=== PATIENT | female | born 1955 | race Caucasian/White ===

== ENCOUNTER 2023-04-17 10:36 | Outpatient (OUT) | payer MEDICARE, MEDICAID, SELFPAY ==
[2023-04-17 12:03] LABS: Estimated Average Glucose 332 mg/dL; Glycohemoglobin A1C 13.2 % (4.5-6.2)
[2023-04-17 12:05] LABS: Anion Gap 13.2; Carbon Dioxide 27.6 mmol/L (21.0-32.0); Chloride 102 mmol/L (98-107); Potassium 4.8 mmol/L (3.5-5.1); Sodium 138 mmol/L (136-145); Thyroid Stimulating Hormone 2.214 uIU/mL (0.358-3.740)
[2023-04-17 12:19] LABS: Erythrocyte Sedimentation Rate 32 mm/hr (<=30)
[2023-04-17 13:17] LABS: Free T4 0.71 ng/dL (0.76-1.46)
[2023-04-18 04:07] LABS: RPR Non Reactive (Non Reactive)
[2023-04-18 06:09] LABS: Ceruloplasmin 23.2 mg/dL (19.0-39.0); Homocyst(e)ine 12.4 umol/L (0.0-17.2); Rheumatoid Factor (RF) <10.0 IU/mL (<14.0)
[2023-04-18 12:08] LABS: Immunoglobulin A, Qn, Serum 497 mg/dL (87-352); Immunoglobulin G, Qn, Serum 1131 mg/dL (586-1602); Immunoglobulin M, Qn, Serum 44 mg/dL (26-217); Lyme Total Antibody CIA Negative (Negative)
[2023-04-18 15:08] LABS: ANA Direct Negative (Negative)
[2023-04-19 12:11] LABS: Copper Level 107 ug/dL (80-158); Zinc Level 67 ug/dL (44-115)
[2023-04-19 17:10] LABS: West Nile Virus, IgG Negative (Negative); West Nile Virus, IgM Negative (Negative)
[2023-04-20 00:06] LABS: Oxcarbazepine (Trileptal),S 18 ug/mL (10-35)
[2023-04-21 11:08] LABS: Methylmalonic Acid, Serum 332 nmol/L (0-378)
[2023-04-22 17:09] LABS: Vitamin B6, Plasma 4.1 ug/L (3.4-65.2)
== END 2023-04-17 10:37 | disposition home or self-care (01) ==
LOC: LAB 10:49
PROVIDERS: PCP Internal Medicine; Visit Provider Psychiatry & Neurology Neurology
DX: G62.9 Polyneuropathy, unspecified (principal); G60.9 Hereditary and idiopathic neuropathy, unspecified; R79.89 Other specified abnormal findings of blood chemistry; Z11.3 Encounter for screening for infections with a predominantly sexual mode of transmission; E53.1 Pyridoxine deficiency; I70.91 Generalized atherosclerosis; D51.3 Other dietary vitamin B12 deficiency anemia; M79.10 Myalgia, unspecified site; E78.5 Hyperlipidemia, unspecified; G40.909 Epilepsy, unspecified, not intractable, without status epilepticus
CPT/HCPCS: 36415; 80051; 80183; 82390; 82525; 82607; 82746; 82784; 83036; 83090; 83921; 84156; 84166; 84207; 84439; 84443; 84630; 85652; 86038; 86140; 86334; 86335; 86430; 86618; 86788; 86789

== ENCOUNTER 2023-06-16 16:30 | Emergency (ER) | payer MEDICARE, MEDICAID, SELFPAY ==
[2023-06-16] VITALS (19 sets, daily range): BP systolic 169–253; BP diastolic 81–109; PULSE 72–79; RESP 14–22; TEMP 36.6; O2SAT 84–96; BMI 41.6
--- NOTE | 2023-06-16 16:58 | ECG_ITS ---
The [facility] Test Date: 2023-06-16 Pat Name: ORTEGA POWELL Department: Room: - Gender: Female Director Telehealth: : 1955 Requested By: KAREN EMANUEL Order Number: [id number] Reading MD: DOMINICK MCGEE Measurements Intervals [place] Rate: 76 P: 60 WI: 192 QRS: 43 QRSD: 96 T: -66 QT: 372 QTc: 403 Interpretive Statements 1100 Sinus rhythm [address] depression 4564 Twave abnormality, possible lateral ischemia 4664 Twave abnormality, possible inferior ischemia 9150 abnormal ECG No previous ECG available for comparison Electronically Signed On 06-18-2023 13:08:27 EDT by DOMINICK MCGEE
--- NOTE | 2023-06-16 16:58 | XR_ITS ---
The [address] [address] Patient Name: ORTEGA POWELL MRN: [id number] date: 1955 Sex: F Assigned Patient Location: ER Current Patient Location: ER Accession/Order Number: [id number] Exam Date: 06/16/2023 18:10 Report Date: 06/16/2023 18:58 At the request of: FRANKLIN SHEA Procedure: XR chest 1V EXAM: XR chest 1V HISTORY: chest pain COMPARISON: None. TECHNIQUE: Chest X-ray AP, 1 view FINDINGS: Support devices: None. Lungs/pleura: No consolidation, effusion, or pneumothorax. Heart and mediastinum: Normal contours. Bones: No acute abnormality identified. XR/XR chest 1V Impression: No radiographic evidence of acute cardiopulmonary process. Electronically authenticated by: JEFF SANDERS Date: 06/16/2023 18:58
--- NOTE | 2023-06-16 17:17 | ED_ITS ---
HPI - Chest Pain General Chief Complaint: Chest Pain Stated Complaint: chest pain Time Seen by Provider: 06/16/23 16:48 Source: patient and family Mode of arrival: walk-in History of Present Illness HPI narrative: patient here with discomfort. She's had some discomfort in the right breast area off and on for the last four days. She did take one nitroglycerin today and had partial relief. The pain is not there at this time. She states that she's had eight heart attacks, two episodes of congestive heart failure and multiple strokes. She uses [facility] cardi[facility]. She did not have any nausea or vomiting. She says she felt like she was going to get sweaty but didn't have diaphoresis at the time. She has not had a heart catheter since her last stents were placed approximately three years ago. She did have a chemical stress test couple years ago that was normal. She did not have any shortness of breath today.she states she takes all her medications and never forgets. Her confirmed. She does take aspirin, statin, Plavix amongst other meds as noted on her medication sheet. Related Data Home Medications Medication Instructions Recorded Confirmed amlodipine 10 mg tablet 10 mg PO QDAY 06/16/23 06/16/23 anastrozole 1 mg tablet 1 mg PO QDAY 06/16/23 06/16/23 aspirin 81 mg capsule 81 mg PO DAILY 06/16/23 06/16/23 atorvastatin 80 mg tablet 80 mg PO QDAY 06/16/23 06/16/23 bupropion HCl 150 mg 24 hr tablet, 150 mg PO QDAY 06/16/23 06/16/23 extended release carvedilol 12.5 mg tablet 12.5 mg PO BID 06/16/23 06/16/23 clopidogrel 75 mg tablet 75 mg PO QDAY 06/16/23 06/16/23 docusate sodium 100 mg capsule 100 mg PO BID 06/16/23 06/16/23 (Col-Rite) isosorbide mononitrate 30 mg 30 mg PO QDAY 06/16/23 06/16/23 tablet,extended release 24 hr lisinopril 40 mg tablet 10 mg PO BID 06/16/23 06/16/23 metformin 500 mg tablet,extended 500 mg PO BID 06/16/23 06/16/23 release 24 hr oxcarbazepine 300 mg tablet 300 mg PO BID 06/16/23 06/16/23 pantoprazole 40 mg tablet,delayed mg PO Q12H 06/16/23 release spironolactone 25 mg tablet 25 mg PO QDAY 06/16/23 06/16/23 Allergies Allergy/AdvReac Type Severity Reaction Status Date / Time No Known Drug Allergies Allergy Verified 06/16/23 16:39 Exam Narrative Exam Narrative: awake alert pleasant good historian here with her . She is not having discomfort this time. Her blood pressure is modestly elevated with a automatic cuff will be reevaluated. Examination HEENT shows no incident of craniofacial trauma injury or abnormalities. Eye examination is no scleral icterus or evidence of anemia. Chest her lungs are completely her with no wheeze rales or rhonchi on auscultation lungs. Heart sounds are normal with no S3-S4 or murmur. Heart rate and rhythm were normal. Extremities show no peripheral edema or calf tenderness or thigh tenderness. Skin integument are normal no petechia or purpura. Neurological examination shows no confusion or altered mental status or focal neurological deficits. Constitutional Vital Signs, click to edit/add: Last Vital Signs Temp 97.8 F 06/16/23 16:35 Pulse 75 06/16/23 18:20 Resp 14 06/16/23 18:20 BP 169/109 H 06/16/23 18:01 Pulse Ox 96 06/16/23 18:20 O2 Del Method Room Air 06/16/23 16:45 Course Vital Signs Vital signs: Vital Signs Temperature 97.8 F 06/16/23 16:35 Pulse Rate 79 06/16/23 16:35 Respiratory Rate 18 06/16/23 16:35 Pulse Oximetry 95 06/16/23 16:35 Oxygen Delivery Method Room Air 06/16/23 16:35 Temperature 97.8 F 06/16/23 16:35 Pulse Rate 75 06/16/23 18:20 Respiratory Rate 14 06/16/23 18:20 Blood Pressure 169/109 H 06/16/23 18:01 Pulse Oximetry 96 06/16/23 18:20 Oxygen Delivery Method Room Air 06/16/23 16:45 MDM - Chest Pain MDM Narrative Medical decision making narrative: patient's 12-lead EKG here shows sinus rhythm with moderate ST segment depr ession in the inferior leads. This was compared to previous EKGs also showed nonspecific findings signs and T-wave depression over the inferior lateral leads so there is no acute change. Her 1st cardiac troponin is normal and it was repeated approximately an hour and half later and the 2nd is normal as well. When I examined her 2nd time she is asymptomatic. Her blood pressure come down still somewhat elevated and so we have given her a dose of her blood pressure meds. With both troponins being negative and her being off here I believe she can be managed as an outpatient as long as she follows up with Dr. Nikolay Tarango. Lab Data Labs: Lab Results 06/16/23 06/16/23 Range/Units 16:53 18:29 WBC 8.3 (4.0-11.0) 10^3/uL RBC 4.51 (4.20-5.40) 10^6/uL Hgb 13.8 (12.0-16.0) g/dL Hct 40.7 (36.0-48.0) % MCV 90.2 (81.0-99.0) fL MCH 30.6 (26.7-34.0) pg MCHC 33.9 (29.9-35.2) g/dL RDW 13.0 (11.0-15.0) % Plt Count 271 (150-450) 10^3/uL MPV 10.0 (9.5-13.5) fL Neut % (Auto) 59.5 (43.0-75.0) % Lymph % (Auto) 29.9 (20.5-60.0) % Coles % (Auto) 7.6 (1.7-12.0) % Eos % (Auto) 2.0 (0.9-7.0) % Baso % (Auto) 0.5 (0.2-2.0) % Neut # (Auto) 5.0 (1.4-6.5) 10^3/uL Lymph # (Auto) 2.5 (1.2-3.8) 10^3/uL Coles # (Auto) 0.6 (0.3-0.8) 10^3/uL Eos # (Auto) 0.2 (0.0-0.7) 10^3/uL Baso # (Auto) 0.0 (0.0-0.1) 10^3/uL Abs Immat Gran (auto) 0.04 H (0.00-0.03) 10^3/uL Imm/Tot Granulo (auto) 0.5 (0.0-0.5) % Sodium 139 (136-145) mmol/L Potassium 4.3 (3.5-5.1) mmol/L Chloride 102 (98-107) mmol/L Carbon Dioxide 28.7 (21.0-32.0) mmol/L Anion Gap 12.6 BUN 17.0 (7.0-18.0) mg/dL Creatinine 0.85 (0.55-1.02) mg/dL Est GFR ( Amer) >60 (>=60) Est GFR (Non-Af Amer) >60 (>=60) BUN/Creatinine Ratio 20.0 Glucose 112 H (74-106) mg/dL Calcium 9.0 (8.5-10.1) mg/dL Troponin I High Sens 14.9 16.2 (4.0-51.3) pg/mL NT-Pro-B Natriuret Pep 258.0 (<=900.0) pg/mL Discharge Plan Discharge Chief Complaint: Chest Pain Clinical Impression: Chest pain Patient Disposition: Home, Self-Care Time of Disposition Decision: 19:06 Prescriptions / Home Meds: No Action amlodipine 10 mg tablet 10 mg PO QDAY anastrozole 1 mg tablet 1 mg PO QDAY atorvastatin 80 mg tablet 80 mg PO QDAY bupropion HCl 150 mg tablet extended release 24 hr 150 mg PO QDAY carvedilol 12.5 mg tablet 12.5 mg PO BID clopidogrel 75 mg tablet 75 mg PO QDAY isosorbide mononitrate 30 mg tablet extended release 24 hr 30 mg PO QDAY lisinopril 40 mg tablet 10 mg PO BID metformin 500 mg tablet extended release 24 hr 500 mg PO BID pantoprazole 40 mg tablet,delayed release (DR/EC) PO Q12H spironolactone 25 mg tablet 25 mg PO QDAY aspirin 81 mg capsule 81 mg PO DAILY oxcarbazepine 300 mg tablet 300 mg PO BID docusate sodium [Col-Rite] 100 mg capsule 100 mg PO BID Additional Instructions: 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 Return for any sustained symptoms. Continue present medications but new prescription for nitroglycerin Stand Alone Forms: Portal Instructions Referrals: KAREN EMANUEL [Primary Care Provider] - 1 week
[2023-06-16 17:18] LABS: Basophils Percent Auto 0.5 % (0.2-2.0); Eosinophils Absolute Auto 0.2 10^3/uL (0.0-0.7); Hematocrit 40.7 % (36.0-48.0); Hemoglobin 13.8 g/dL (12.0-16.0); Immature Granulocytes Abs Auto 0.04 10^3/uL (0.00-0.03); Immature Granulocytes Pct Auto 0.5 % (0.0-0.5); Lymphocytes Absolute Auto 2.5 10^3/uL (1.2-3.8); Lymphocytes Percent Auto 29.9 % (20.5-60.0); Mean Corpuscular HGB Conc 33.9 g/dL (29.9-35.2); Mean Corpuscular Hemoglobin 30.6 pg (26.7-34.0); Mean Corpuscular Volume 90.2 fL (81.0-99.0); Monocytes Absolute Auto 0.6 10^3/uL (0.3-0.8); Monocytes Percent Auto 7.6 % (1.7-12.0); Neutrophils Percent Auto 59.5 % (43.0-75.0); Platelet Count 271 10^3/uL (150-450); Red Blood Count 4.51 10^6/uL (4.20-5.40); White Blood Count 8.3 10^3/uL (4.0-11.0)
[2023-06-16 17:38] LABS: Anion Gap 12.6; Carbon Dioxide 28.7 mmol/L (21.0-32.0); Chloride 102 mmol/L (98-107); Estimated GFR (African America >60 (>=60); Estimated GFR (Non-African Ame >60 (>=60); Glucose 112 mg/dL (74-106); Potassium 4.3 mmol/L (3.5-5.1); Sodium 139 mmol/L (136-145); Troponin I High Sensitivity 14.9 pg/mL (4.0-51.3)
[2023-06-16 18:53] LABS: Troponin I High Sensitivity 16.2 pg/mL (4.0-51.3)
[2023-06-16] MEDS: LISINOPRIL 10 MG TABLET PO (19:32)
== END 2023-06-16 19:32 | disposition home or self-care (01) ==
PROVIDERS: Emergency Provider Emergency Medicine Emergency Medical Services; PCP Internal Medicine
DX: R07.9 Chest pain, unspecified (principal); I25.2 Old myocardial infarction; I50.9 Heart failure, unspecified; Z86.73 Personal history of transient ischemic attack (TIA), and cerebral infarction without residual deficits; Z95.5 Presence of coronary angioplasty implant and graft; Z79.82 Long term (current) use of aspirin; Z79.02 Long term (current) use of 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latelets; Z79.84 Long term (current) use of oral hypoglycemic drugs
CPT/HCPCS: 36415; 71045; 80048; 83880; 84484; 85025; 93005; 99285

== ENCOUNTER 2023-07-10 12:37 | Outpatient (OUT) | payer MEDICARE, MEDICAID, SELFPAY ==
--- NOTE | 2023-07-10 12:44 | MM_ITS ---
Patient: ORTEGA POWELL Exam Date: 07/10/2023 : 1955 Gender:F Ordering : DR KAREN EMANUEL M.D. Admission #: [id number] Family : Order #: [id number] CLICK HERE TO VIEW EXAM RADIOLOGY REPORT PROCEDURE: MM TOMOSYNTHESIS DIAGNOSTIC LT COMPARISON: MG MAMM DIAGNOSTIC 3D TIFFANY CAD, 01/04/2023. INDICATIONS: Follow up to abnormal mammogram Calculator Name NCI Breast Cancer Risk Assessment Tool 5 Year Breast Cancer Risk 2.20% Lifetime Breast Cancer Risk 7.60% Personal Breast Cancer No Personal Ovarian Cancer No Treatments None Family Cancers Mother with colon cancer at age 60. LOCATION: The [facility] BREAST COMPOSITION: Scattered areas fibroglandular density. FINDINGS: DIAGNOSTIC CATEGORY 2--BENIGN FINDING. NO CHANGE FROM COMPARISON. The left breast is stable in size and overall fibroglandular configuration. Again demonstrated is a stable area of architectural distortion with focal asymmetry in the upper outer quadrant, deep to a linear scar marker with associated surgical clips. Postprocedural changes are favored. RECOMMENDATIONS: ROUTINE MAMMOGRAM AND CLINICAL EVALUATION. The patient is due bilateral screening mammogram December 2023 PLEASE NOTE: A NORMAL MAMMOGRAM DOES NOT EXCLUDE THE POSSIBILITY OF BREAST CANCER. A CLINICALLY SUSPICIOUS PALPABLE LUMP SHOULD BE BIOPSIED. Dictated by: Cody Jasso MD on 07/10/2023 at 13:17 Approved by: Cody Jasso MD on 07/10/2023 at 13:19
== END 2023-07-10 12:38 | disposition home or self-care (01) ==
LOC: MAMMO 12:39
PROVIDERS: PCP Internal Medicine; Visit Provider Internal Medicine
DX: R92.8 Other abnormal and inconclusive findings on diagnostic imaging of breast (principal)
CPT/HCPCS: 77065; G0279

== ENCOUNTER 2023-12-04 09:37 | Outpatient (OUT) | payer MEDICARE, MEDICAID, SELFPAY ==
--- NOTE | 2023-12-04 10:00 | CA_ITS ---
Patient Name: ORTEGA POWELL MR#: [id number] : 1955 Exam Date: 12/04/2023 Ordering Doctor: DR Garrett Mcdonald M.D. ECHOCARDIOGRAM REPORT PROCEDURE: CA ECHO DOPPLER COMPLETE INDICATIONS: Dyspnea on exertion COMPARISON: None. DESCRIPTION: COMPLETE ECHOCARDIOGRAM Real-time transthoracic echocardiography with 2D, M-mode, spectral and color flow Doppler performed. QUALITY: Technical quality was good. LEFT VENTRICLE: Normal chamber size. Moderate concentric left ventricular hypertrophy. Global left ventricular systolic function is normal. LV EF: Estimated left ventricular ejection fraction is 65-70 %. DIASTOLIC: Grade I diastolic dysfunction. Doppler data [E/E'] indicate elevated left-sided filling pressures. ATRIAL SEPTUM: LEFT ATRIUM: Mild dilatation. RIGHT ATRIUM: Normal chamber size. RIGHT VENTRICLE: Normal chamber size. Normal right ventricular systolic function. TRICUSPID VALVE: Normal mobility and thickness. No stenosis with trivial regurgitation. Unable to assess right-sided pressures due to lack of measurable tricuspid regurgitation. MITRAL VALVE: Normal mobility and thickness. No evidence of mitral valve stenosis. Mild mitral annular calcification. Mild mitral regurgitation. AORTIC VALVE: Normal trileaflet appearance. Mildly calcified aortic valve. Normal leaflet mobility. Doppler velocity suggest no aortic valve stenosis. Trivial aortic regurgitation. AORTIC ROOT: Normal diameter and appearance. PULMONIC VALVE: Normal thickness and mobility. No stenosis. No regurgitation. PERICARDIUM: No evidence of pericardial effusion. IVC: Collapses with inspirations. Mild dilatation measuring 2.5 cm PLEURA: CONCLUSION: 1. Moderate concentric left ventricular hypertrophy with normal systolic function. LVEF is 65 to 70%. 2. Normal right ventricular size and systolic function. 3. Grade 1 diastolic dysfunction. 4. Mild mitral regurgitation. 5. Unable to assess right-sided pressures due to lack of measurable tricuspid regurgitation. 6. Doppler data indicate elevated left-sided filling pressures. Adult Echocardiography Procedure Report Left Ventricle LVEDD (3.7 - 5.6 cm): 4.74 cm LVESD (2.2 - 4.0 cm): 3.42 cm LVIVS thickness (0.6 - 1.2 cm): 1.67 cm LVPW thickness (0.5 - 1.0 cm): 1.43 cm e': 0.06 m/s E - e': 15.67 LVOT Max Gradient: 3.90 mm[Hg] LVOT Area (cm2): 0.99 m/s Peak Velocity (LVOT): 0.99 m/s Mean Velocity (LVOT): 0.73 m/s LVOT Diameter 1.96 cm Left Ventricular Ejection Fraction: 65-70 % Left Atrium LA Volume Index (2D A2C): 39.04 ml/m2 Left Atrium Systolic Dimension: 3.71 cm Mitral Valve MV E to A Ratio: 0.69 Mitral Valve A-Wave Peak Velocity: 1.30 m/s Mitral Valve E-Wave Peak Velocity: 0.90 m/s Right Ventricle RV Internal Diastolic Dimension: 3.41 cm Aorta AO Root Diam: 2.69 cm Ascending Ao Diam: 2.55 cm Aortic Valve AoV Area (Peak Daniel): 1.56 cm2, 1.56 cm2 AoV Area (VTI): 1.77 cm2, 1.77 cm2 Peak Velocity(Antegrade Flow): 1.91 m/s Peak Gradient(Antegrade Flow): 14.53 mm[Hg] Mean Velocity(Antegrade Flow): 1.29 m/s Mean Gradient(Antegrade Flow): 7.61 mm[Hg] Velocity Time Integral: 45.71 cm Tricuspid Valve Peak Velocity (Regurgitant Flow): 1.92 m/s, 1.92 m/s, 1.88 m/s Pulmonic Valve Mean Gradient: 2.72 mm[Hg], 3.04 mm[Hg], 3.18 mm[Hg] Mean Velocity: 0.77 m/s, 0.83 m/s, 0.83 m/s Peak Velocity: 1.12 m/s Peak Gradient: 4.76 mm[Hg], 4.76 mm[Hg], 5.49 mm[Hg] Right Atrium Right Atrium Systolic Pressure: 39.71 ml, 39.71 ml Dictated by: Greg West M.D. on 12/04/2023 at 16:31 Approved by: Greg West M.D. on 12/04/2023 at 16:36
== END 2023-12-04 09:38 | disposition home or self-care (01) ==
PROVIDERS: PCP Internal Medicine; Visit Provider Internal Medicine Interventional Cardiology
DX: R06.09 Other forms of dyspnea (principal)
CPT/HCPCS: 93306

== ENCOUNTER 2023-12-28 14:17 | Emergency (ER) | payer MEDICARE, MEDICAID, SELFPAY ==
[2023-12-28] VITALS (20 sets, daily range): BP systolic 89–182; BP diastolic 44–85; PULSE 56–76; TEMP 36.6; O2SAT 88–98; BMI 40.0
--- OUTSIDE RECORDS SUMMARY | 2023-12-28 14:26 | XMS_ITS | CCD ---
Author Organization [facility] Care Team Providers Care Time Study Statistician Name Role Phone CARLOS EDUARDO VAN Unavailable Unavailable JONAH SANABRIA Admitting Unavailable JONAH SANABRIA Attending Unavailable GARRETT MCDONALD Referring Unavailable FARAZ OSMAN Primary Care Unavailable AK Procedure Practitioner Unavailab JENNIFER Ross Surgeon Unavailable FARAZ OSMAN Primary Care Unavailable FARAZ OSMAN Referring Unavailable CHERELLE, RIVERA R Attending Unavailable CHERELLE, RIVERA R Admitting Unavailable AK Procedure Practitioner Unavailab Dov Blank Surgeon Unavailable WILMAR MORRIS Primary Care Unavailable DOMINICK MCGEE Referring Unavailable THERESA TOMAS Admitting Unavailable CHERELLE, RIVERA R Attending Unavailable AK Procedure Practitioner Unavailab le CHERELLE, RIVERA R Surgeon Unavailable SHAHANA Osman Primary Care Provider [phone] SHAHANA Osman Referring Provider MD Karoline Farmer Attending Provider [phone] DO Jac Hemphill Attending Provider [phone] SHAHANA Osman Primary Care Provider SHAHANA Osman Referring Provider [phone] MD Karoline Farmer Attending Provider SHAHANA Osman Referring Provider MD Karoline Farmer Attending Provider SHAHANA Osman Referring Provider [phone] MD Karoline Farmer Attending Provider [phone] Dawson, SHAHANA Ruth Referring Provider [phone] MD Karoline Famrer Attending Provider Dawson, SHAHANA Ruth Primary Care Provider Dawson, SHAHANA Ruth Referring Provider [phone] MD Karoline Farmer Attending Provider FARAZ OSMAN Primary Care Physician Yoana Drew Unavailable DAWSON, DR RUTH Primary Care Unavailable MARKER ., DR HERNANDEZ Admitting Unavailable MARKER ., DR HERNANDEZ Attending Unavailable MARKER ., DR HERNANDEZ Consulting Unavailable RAMYA, DIANA Consulting Unavailable OSMAN, DR RUTH Admitting Unavailable OSMAN, DR RUTH Attending Unavailable OSMAN, DR RUTH Consulting Unavailable OSMAN, DR RUTH Primary Care Unavailable OSMAN, DR RUTH Admitting Unavailable OSMAN, DR RUTH Attending Unavailable OSMAN, DR RUTH Consulting Unavailable OSMAN, DR RUTH Primary Care Unavailable OSMAN, DR RUTH Primary Care Unavailable NETODAVID Admitting Unavailable NETODAVID Attending Unavailable NETODAVID Consulting Unavailable ELTAHAWY, DR MATA Admitting Unavailable WEST, DR CARLOS EDUARDO Munroe Consulting Unavailable OSMAN, DR RUTH Primary Care Unavailable ELTAHAWY, DR MATA Attending Unavailable ELTAHAWY, DR MATA Consulting Unavailable OSMAN, DR RUTH Admitting Unavailable OSMAN, DR RUTH Primary Care Unavailable OSMAN, DR RUTH Attending Unavailable OSMAN, DR RUTH Consulting Unavailable ZIEBER, DR BARRON Cho Consulting Unavailable COLIN .KAROLINE Consulting Unavailable DAWSON, DR RUTH Primary Care Unavailable TIFFANIE LINDA Admitting Unavailable TIFFANIE LINDA Attending Unavailable DIAMOND CHAN Consulting Unavailable Faraz Osman Primary Care Unavailable Faraz Osman Referring Unavailable Darian, Karoline Admitting Unavailable Darian, Karoline Attending Unavailable Faraz Osman MD Primary Care Provider GARRETT MCDONALD Attending Unavailable ELTAHAWGARRETT Palma Attending Unavailable FARAZ OSMAN Attending Unavailable JERSON ANTON Attending Unavailable ROSEANN VICENTE Attending Unavailable JERSON ANTON A Referring Unavailable ROSEANN VICENTE Attending Unavailable JERSON ANTON Referring Unavailable ROSEANN VICENTE Attending Unavailable JERSON ANTON A Referring Unavailable ROSEANN VICENTE Attending Unavailable JERSON ANTON Referring Unavailable FARAZ OSMAN Attending Unavailable FARAZ OSMAN Attending Unavailable JERSON ANTON Attending Unavailable ROSEANN VICENTE Attending Unavailable JERSON ANTON Referring Unavailable ROSEANN VICENTE Attending Unavailable JERSON ANTON Referring Unavailable JERSON ANTON Attending Unavailable FARAZ OSMAN Referring Unavailable FARAZ OSMAN Attending Unavailable Allergies Allergy Classification Reported Allergen(s) Allergy Type Date of Onset Reaction(s) Facility (1 source) [id number] Drug allergy (disorder) 02-02-2017 [facility] Repository (16 sources) diphenhydrAMINE; Translations: [diphenhydramine ] Drug Allergy 12-20-2021 [facility] Medications Current Medications Medication Drug Class(es) Dates Sig (Normalized) Sig (Original) acetaminophen 300 mg / codeine phosphate 30 mg oral tablet (9 sources) Opioid Agonist Start: 12-20-2021 take 1 tablet by mouth every four to six hours Acetaminophen-Co deine Active 1 TAB PO EVERY 4-6 HOURS 17 02December 20, 2021 11:37am Acetaminophen / HYDROcodone (2 sources) Opioid Agonist HYDROcodone-Acet aminophen Active [id number] 200 actuat albuterol 0.09 mg/actuat metered dose inhaler (9 sources) beta2-Adrenergic Agonist Start: 11-23-2021 take 1 puff(s) by inhalation every four to six hours Albuterol Sulfate Active 2 PUFF INHALATION EVERY 4-6 HOURS November 23, 2021 4:43pm amLODIPine 10 mg oral tablet (19 sources) Dihydropyridine Calcium Channel Drew Start: 11-23-2021 take 10 mg by mouth once daily in the morning Amlodipine Active 10 MG PO Every morning November 23, 2021 4:43pm Norvasc Active amoxicillin 875 mg / clavulanate 125 mg oral tablet (2 sources) Penicillin-class Antibacterial Start: 12-02-2022 take 1 tablet by mouth every twelve hours Amoxicillin-Pot Clavulanate 875-125 MG 1 tablet Orally every 12 hrs for 10 day(s) Nov, Active anastrozole 1 mg oral tablet (20 sources) Aromatase Inhibitor Start: 01-12-2022 End: 03-22-2022 take 1 tablet by mouth once daily anastrozole (Arimidex) 1 MG chemo tablet Take 1 mg by mouth Daily. 0 03/08/2022 Active Anastrozole Acti ve aspirin 81 mg delayed release oral tablet (20 sources) Platelet Aggregation Inhibitor, Nonsteroidal Anti-inflammatory Drug Start: 11-23-2021 take 81 mg by mouth once daily Aspirin Active 81 MG PO Daily November 23, 2021 4:48pm Aspirin 81 Activ e Meagan Aspirin Ac tive atorvastatin 80 mg oral tablet (19 sources) HMG-CoA Reductase Inhibitor Start: 11-23-2021 take 80 mg by mouth once daily Atorvastatin Active 80 MG PO Daily November 23, 2021 4:43pm Lipitor Active 24 hr buPROPion hydrochloride 150 mg extended release oral tablet (19 sources) Aminoketone Start: 11-23-2021 take 1 tablet by mouth once daily in the morning Bupropion Hcl (Wellbutrin Xl) 150 mg Tablet Extended Release 24 Hr Active 150 MG PO Every morning November 23, 2021 4:43pm take 1 tablet by yesica th every twenty-four hours in the morning buPROPion XL (Wellbutrin XL) 150 MG 24 h r tablet Take 150 mg by mouth in the morning. 0 Active Wellbutrin XL Ac tive carvedilol 12.5 mg oral tablet (20 sources) alpha-Adrenergic Drew, beta-Adrenergic Drew Start: 11-23-2021 take 1 tablet by mouth twice daily carvedilol (Coreg) 12.5 MG tablet Indications: Benign essential hypertension (CMS/HCC) TAKE 1 TABLET BY MOUTH TWICE DAILY 200 tablet 3 03/30/2023 Active Coreg Active Carvedilol Activ e clopidogrel 75 mg oral tablet (19 sources) P2Y12 Platelet Inhibitor Start: 10-22-2023 take 1 tablet by mouth once daily clopidogrel (Plavix) 75 MG tablet Indications: Chronic venous insufficiency TAKE 1 TABLET BY MOUTH ONCE DAILY 30 tablet 10 10/22/2023 Active Start: 11-23-2021 take 75 mg by mouth once daily in the morning Clopidogrel Active 75 MG PO Every morning November 23, 2021 4:43pm Plavix Active Continuous Blood Gluc Sensor (FreeStyle Anuradha 2 Sensor) [facility] [place] (8 sources) Start: 06-29-2023 Continuous Blood Gluc Sensor (FreeStyle Anuradha 2 Sensor) [facility] [place] Indications: Type 2 diabetes mellitus with diabetic neuropathy, with long-term current use of insulin (CMS/HCC) 1 Device every 14 (fourteen) days. 2 each 3 06/29/2023 Active docusate sodium 100 mg oral capsule (8 sources) Start: 02-16-2023 take 1 capsule by mouth twice daily as needed for constipation RA Col-Rite 100 MG capsule Take 100 mg by mouth 2 (two) times a day as needed for constipation. 0 02/16/2023 Active gabapentin 300 mg oral capsule (6 sources) Anti-epileptic Agent Start: 11-06-2023 take 1 capsule by mouth at bedtime gabapentin (Neurontin) 300 MG capsule Indications: Bilateral carpal tunnel syndrome Take 1 capsule (300 mg) by mouth at bedtime 30 capsule 0 11/06/2023 Active ibuprofen 600 mg oral tablet (9 sources) Nonsteroidal Anti-inflammatory Drug Start: 12-20-2021 Ibuprofen Active 600 MG PO EVERY 4-6 HOURS 14 December 20, 2021 11:36am do not exceed 4 doses in a 24 hour period insulin lispro 25 unt/ml / insulin lispro protamine, human 75 unt/ml injectable suspension (8 sources) Insulin Analog Start: 07-09-2023 insulin lispro protamine-insulin lispro (HumaLOG Mix 75-25) (75-25) 100 UNIT/ML suspension injection Indications: Type 2 diabetes mellitus with hyperglycemia, with long-term current use of insulin ([facility]) Inject 60 Units under the skin Daily with meals AND 45 Units in the evening. Take before meals. 10 mL 0 07/09/2023 Active Insulin Lispro Protamin-Lispro (Humalog Mix 75-25 Kwikpen) 100 unit/mL (75-25) Insulin Pen (18 sources) Start: 12-06-2021 Insulin Lispro Protamin-Lispro (Humalog Mix 75-25 Kwikpen) 100 unit/mL (75-25) Insulin Pen Active 40 UNIT SUBCUT Every evening December 06, 2021 12:40pm with dinner Start: 12-06-2021 Insulin Lispro Protamin-Lispro (Humalog Mix 75-25 Kwikpen) 100 unit/mL (75-25) Insulin Pen Active 40 UNIT SUBCUT Every evening December 06, 2021 1:00am with dinner Start: 11-23-2021 Insulin Lispro Protamin-Lispro (Humalog Mix 75-25 Kwikpen) 100 unit/mL (75-25) Insulin Pen Active 50 UNIT SUBCUT Every morning November 23, 2021 4:54pm with breakfast Start: 11-23-2021 Insulin Lispro Protamin-Lispro (Humalog Mix 75-25 Kwikpen) 100 unit/mL (75-25) Insulin Pen Active 50 UNIT SUBCUT Every morning November 23, 2021 1:00am with breakfast 24 hr isosorbide mononitrate 30 mg extended release oral tablet (10 sources) Nitrate Vasodilator Start: 11-23-2022 take 1 tablet by mouth in the morning, then take 1 tablet by mouth every twenty-four hours isosorbide mononitrate ER (Imdur) 30 MG 24 hr tablet Take 30 mg by mouth in the morning. 0 11/23/2022 Active Isosorbide [place] itrate Active lisinopril 40 mg oral tablet (20 sources) Angiotensin Converting Enzyme Inhibitor Start: 07-26-2023 take 1 tablet by mouth in the morning lisinopril 40 MG tablet Take 40 mg by mouth in the morning. 0 07/26/2023 Active Start: 11-23-2021 take 10 mg by mouth twice christen y Lisinopril Active 10 MG PO Twice daily November 23, 2021 4:43pm Lisinopril Activ e Zestril Active 24 hr metFORMIN hydrochloride 500 mg extended release oral tablet (19 sources) Biguanide Start: 11-23-2021 take 500 mg by mouth twice daily Metformin Active 500 MG PO Twice daily November 23, 2021 4:54pm take 1 tablet by yesica th every twenty-four hours in the morning metFORMIN XR (Glucophage-XR) 500 MG 24 h r tablet Take 500 mg by mouth in the morning and 500 mg before bedtime. 0 Active metFORMIN HCl Ac tive mometasone furoate 1 mg/ml topical cream (6 sources) Corticosteroid Start: 01-31-2022 Mometasone Active 1 APPLIC TOPICAL Daily January 31, 2022 1:32pm nitroglycerin 0.4 mg sublingual tablet (8 sources) Nitrate Vasodilator nitroglyceri n (Nitrostat) 0.[address] 1 tablet by sublingual route. 0 Active nystatin 100 unt/mg topical powder (8 sources) Polyene Antifungal Nyamyc [id number] UNIT/GM powder Nyamyc 100,000 unit/gram topical powder apply to affected area topically twice a day 0 Active OXcarbazepine 300 mg oral tablet (8 sources) Anti-epileptic Agent Start: 08-27-2023 OXcarbazepine (Trileptal) 300 MG tablet Indications: Neurogenic pain 1/2 tab AM 1 tab PM, january incr to 1/2 tab BID and 1 tab QHS 60 tablet 2 11/05/2023 Active pantoprazole 40 mg delayed release oral tablet (19 sources) Proton Pump Inhibitor Start: 08-22-2023 take 1 tablet by mouth twice daily pantoprazole (ProtoNix) 40 MG EC tablet Indications: History of gastrointestinal disease TAKE 1 TABLET BY MOUTH TWICE DAILY 200 tablet 3 08/22/2023 Active Start: 11-23-2021 take 1 tablet by yesica th twice daily Pantoprazole (Protonix) 40 mg Tablet,Delayed Release (Dr/Ec) Active 40 MG PO Twice daily November 23, 2021 4:48pm Pantoprazole Sod ium Active pregabalin 150 mg oral capsule (11 sources) Start: 11-23-2021 take 1 capsule by mouth twice daily Pregabalin (Lyrica) 150 mg Capsule Active 150 MG PO Twice daily November 23, 2021 4:54pm Lyrica Active spironolactone 25 mg oral tablet (12 sources) Aldosterone Antagonist Start: 03-22-2022 take 1 tablet by mouth in the morning spironolactone (Aldactone) 25 MG tablet Take 25 mg by mouth in the morning. 0 10/25/2022 Active Spironolactone A ctive Completed/Discontinued Medications Medication Drug Class(es) Dates Sig (Normalized) Sig (Original) tiZANidine 4 mg oral capsule (9 sources) Central alpha-2 Adrenergic Agonist Start: 11-23-2021 End: 11-25-2021 take 4 mg by mouth three times daily Tizanidine Discontinued 4 MG PO Three times daily November 23, 2021 4:48pm November 25, 2021 12:35pm valACYclovir 1000 mg oral tablet (20 sources) Herpesvirus Nucleoside Analog DNA Polymerase Inhibitor, Herpes Simplex Virus Nucleoside Analog DNA Polymerase Inhibitor, Herpes Zoster Virus Nucleoside Analog DNA Polymerase Inhibitor Start: 11-25-2021 End: 01-12-2022 Valacyclovir (Valtrex) 1 gram tablet Discontinued 1000 MG PO Twice daily December 06, 2021 12:46pm January 12, 2022 1:24pm x 14 days Start: 11-25-2021 End: 11-25-2021 take 1 tablet by mouth twice daily Valacyclovir (Valtrex) 500 mg Tablet Discontinued 500 MG PO Twice daily November 25, 2021 12:27pm November 25, 2021 12:35pm Problems Active Problems Problem Classification Problem Date Documented Da te Episodic/Chronic Acute cerebrovascular disease (19 sources) Cerebral infarction, unspecified; Translations: [Cerebral infarction] Onset: 04-28-2018 03-30-2023 Chronic Acute cerebrovascular disease (1 source) NIHSS score 1; Translations: [NIHSS SCORE 1] Onset: 04-28-2018 Acute posthemorrhagic anemia (1 source) Acute posthemorrhagic anemia; Translations: [ACUTE POSTHEMORRHAGIC ANEMIA] Onset: 11-14-2018 Episodic Administrative/social admission (2 sources) Dietary counseling and surveillance; Translations: [Counseling procedure with explicit context] Onset: 04-28-2018 Episodic Anxiety disorders (16 sources) Anxiety disorder; Translations: [Anxiety disorder, unspecified] Onset: 03-14-2021 03-30-2023 Chronic Cancer of breast (20 sources) Malignant neoplasm of upper-outer quadrant of female breast; Translations: [Malignant neoplasm of upper-outer quadrant of left female breast] Onset: 01-04-2023 11-25-2021 Chronic Complication of device; implant or graft (1 source) Stenosis of coronary artery stent, initial encounter; Translations: [STENOSIS OF CORONARY ARTERY STENT, INITIAL ENCOUNTER] Onset: 09-05-2018 Congestive heart failure; nonhypertensive (10 sources) Heart failure, unspecified; Translations: [Chronic diastolic (congestive) heart failure] Onset: 04-28-2018 03-30-2023 Chronic Coronary atherosclerosis and other heart disease (20 sources) Old myocardial infarction; Translations: [Atherosclerotic heart disease of [place] coronary artery without angina pectoris] Onset: 11-02-2017 Resolved: 06-27-2023 11-25-2021 Chronic Diabetes mellitus with complications (20 sources) Type 2 diabetes mellitus with hyperglycemia; Translations: [Neuropathy due to type 2 diabetes mellitus] Onset: 04-28-2018 Chronic Diabetes mellitus with complications (2 sources) Type 2 diabetes mellitus with diabetic neuropathy, unspecified; Translations: [Type 2 diabetes mellitus with diabetic polyneuropathy] Onset: 09-05-2018 Diabetes mellitus without complication (9 sources) Type 1 diabetes mellitus without complications; Translations: [Abnormal metabolic state due to diabetes mellitus] Onset: 05-30-2022 03-30-2023 Chronic Disorders of lipid metabolism (9 sources) Hyperlipidemia, unspecified; Translations: [Hyperlipidemia] Onset: 06-27-2018 03-30-2023 Chronic E Codes: Natural/environment (2 sources) Bitten by cat, initial encounter Episodic Essential hypertension (20 sources) Essential (primary) hypertension; Translations: [Hypertensive disorder] Onset: 06-27-2018 11-25-2021 Chronic Gastrointestinal hemorrhage (16 sources) Chronic gastric ulcer with hemorrhage but without obstruction; Translations: [Chronic or unspecified gastric ulcer with hemorrhage] Onset: 12-09-2018 03-30-2023 Chronic Gastrointestinal hemorrhage (6 sources) Hematemesis; Translations: [Chronic or unspecified gastric ulcer with hemorrhage] Onset: 11-14-2018 Episodic Hypertension with complications and secondary hypertension (2 sources) Hypertensive heart disease with heart failure; Translations: [HYPERTENSIVE HEART DISEASE WITH HEART FAILURE] Onset: 04-28-2018 Chronic Hypertension with complications and secondary hypertension (1 source) Hypertensive emergency; Translations: [HYPERTENSIVE EMERGENCY] Onset: 04-28-2018 Late effects of cerebrovascular disease (8 sources) 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; Translations: [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 affecting unspecified side] Onset: 06-27-2018 03-30-2023 Chronic Menopausal disorders (8 sources) Decreased estrogen level; Translations: [Other primary ovarian failure] Onset: 10-28-2018 03-30-2023 Chronic Mood disorders (16 sources) Moderate major depression, single episode; Translations: [Major depressive disorder, single episode, moderate] Onset: 07-02-2019 03-30-2023 Chronic Nonmalignant breast conditions (17 sources) Mastodynia; Translations: [Pain of right breast] 11-25-2021 Episodic Occlusion or stenosis of precerebral arteries (8 sources) Bilateral stenosis of carotid arteries; Translations: [Occlusion and stenosis of bilateral carotid arteries] Onset: 05-22-2023 05-22-2023 Chronic Open wounds of extremities (2 sources) Open bite of other finger without damage to nail, initial encounter Episodic Other aftercare (1 source) joint terminal attack controller (current) use of 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 latelets; Translations: [[facility] (CURRENT) USE OF ANTITHROMBOTICS/ANTIP LATELETS] Onset: 11-14-2018 Episodic Other aftercare (7 sources) Drug therapy finding; Translations: [Encounter for therapeutic drug level monitoring] 01-13-2022 Episodic Other aftercare (1 source) prison (current) use of oral hypoglycemic drugs; Translations: [KETTLE FIRER (CURRENT) USE OF ORAL HYPOGLYCEMIC DRUGS] Onset: 09-05-2018 Other and ill-defined cerebrovascular disease (8 sources) Cerebral ischemia; Translations: [Cerebral ischemia] Onset: 04-10-2020 03-30-2023 Chronic Other circulatory disease (9 sources) History of cerebrovascular accident; Translations: [Personal history of transient ischemic attack (TIA), and cerebral infarction without residual deficits] 11-25-2021 Episodic Other connective tissue disease (5 sources) Weakness of hand; Translations: [Other symptoms and signs involving the musculoskeletal system] Onset: 11-09-2023 11-09-2023 Episodic Other gastrointestinal disorders (4 sources) Diarrhea; Translations: [Diarrhea, unspecified] Episodic Other infections; including parasitic (8 sources) Sequelae of infectious disease; Translations: [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] Onset: 05-25-2021 03-30-2023 Chronic Other lower respiratory disease (2 sources) Other forms of dyspnea; Translations: [Other forms of dyspnea] Onset: 11-19-2023 Episodic Other nervous system disorders (8 sources) Polyneuropathy; Translations: [Polyneuropathy, unspecified] Onset: 02-20-2023 02-20-2023 Chronic Other nervous system disorders (8 sources) Disturbance of attention; Translations: [Attention and concentration deficit] Onset: 03-30-2023 03-30-2023 Chronic Other nervous system disorders (8 sources) Chronic pain; Translations: [Other chronic pain] Onset: 05-25-2021 03-30-2023 Chronic Other nervous system disorders (13 sources) Bilateral carpal tunnel syndrome; Translations: [Carpal tunnel syndrome, bilateral upper limbs] Onset: 05-21-2023 05-21-2023 Chronic Other nutritional; endocrine; and metabolic disorders (1 source) Obesity, unspecified; Translations: [OBESITY, UNSPECIFIED] Onset: 04-28-2018 Chronic Other nutritional; endocrine; and metabolic disorders (1 source) Body mass index (BMI) 40.0-44.9, adult; Translations: [BODY MASS INDEX (BMI) 40.0-44.9, ADULT] Onset: 04-28-2018 Chronic Residual codes; unclassified (5 sources) Obstructive sleep apnea (adult) (pediatric); Translations: [OBSTRUCTIVE SLEEP APNEA (ADULT) (PEDIATRIC)] Onset: 11-14-2018 Chronic Residual codes; unclassified (8 sources) Obstructive sleep apnea syndrome; Translations: [Obstructive sleep apnea (adult) (pediatric)] Onset: 06-27-2018 05-21-2023 Chronic Residual codes; unclassified (2 sources) Family history of cancer of colon; Translations: [Family history of malignant neoplasm of digestive organs] Episodic Spondylosis; intervertebral disc disorders; other back problems (16 sources) Cervical spondylosis; Translations: [Spondylosis without myelopathy or radiculopathy, cervical region] Onset: 03-30-2023 03-30-2023 Chronic Unclassified (2 sources) ANGINA ABNORMAL STRESS TEST Onset: 09-05-2018 Unclassified (1 source) Malignant neoplasm of upper-outer quadrant of left female breast; Translations: [Malignant neoplasm of upper-outer quadrant of left female breast] Onset: 03-22-2022 Past or Other Problems Problem Classification Problem Date Documented Da te Episodic/Chronic Coronary atherosclerosis and other heart disease (2 sources) Presence of coronary angioplasty implant and graft; Translations: [PRESENCE OF CORONARY ANGIOPLASTY IMPLANT AND GRAFT] Onset: 8 Episodic E Codes: Fall (1 source) Fall from bed, initial encounter; Translations: [FALL FROM BED INITIAL ENCOUNTER] Onset: 2 Episodic Malaise and fatigue (16 sources) Tires quickly; Translations: [Other fatigue] Onset: 0 03-30-2023 Episodic Mycoses (16 sources) Candidiasis; Translations: [Other sites of candidiasis] Onset: 3 03-30-2023 Episodic Nonspecific chest pain (9 sources) Chest pain, unspecified; Translations: [Other chest pain] Onset: 8 Episodic Nutritional deficiencies (16 sources) Cobalamin deficiency; Translations: [Deficiency of other specified B group vitamins] Onset: 3 05-22-2023 Episodic Other acquired deformities (8 sources) Retrolisthesis; Translations: [Spondylolisthesis, site unspecified] Onset: 3 03-30-2023 Episodic Other aftercare (2 sources) prison (current) use of insulin; Translations: [[facility] (CURRENT) USE OF INSULIN] Onset: 8 Episodic Other aftercare (2 sources) joint terminal attack controller (current) use of aspirin; Translations: [KETTLE FIRER (CURRENT) USE OF ASPIRIN] Onset: 8 Episodic Other aftercare (7 sources) Encounter for therapeutic drug level monitoring; Translations: [Encounter for therapeutic drug monitoring] Onset: 2 Episodic Other aftercare (10 sources) Long-term current use of insulin; Translations: [joint terminal attack controller (current) use of insulin] Onset: 8 03-30-2023 Episodic Other aftercare (1 source) Other terminal block assembler (current) drug therapy; Translations: [OTH [facility] CURRENT DRUG THERAPY] Onset: 2 Episodic Other aftercare (1 source) joint terminal attack controller (current) use of oral hypoglycemic drugs; Translations: [[facility] USE ORAL HYPOGLYCEMIC DX] Onset: 2 Episodic Other aftercare (1 source) prison (current) use of aromatase inhibitors; Translations: [joint terminal attack controller (current) use of aromatase inhibitors] Onset: 2 Episodic Other and ill-defined cerebrovascular disease (8 sources) Cerebral arteriosclerosis; Translations: [Cerebral atherosclerosis] Onset: 0 Resolved: 3 06-27-2023 Chronic Other circulatory disease (10 sources) Personal history of transient ischemic attack (TIA), and cerebral infarction without residual deficits; Translations: [Personal history of transient ischemic attack (TIA), and cerebral infarction without residual deficits] Onset: 8 Episodic Other connective tissue disease (1 source) Facial weakness; Translations: [FACIAL WEAKNESS] Onset: 8 Episodic Other connective tissue disease (8 sources) Neurogenic pain; Translations: [Neuralgia and neuritis, unspecified] Onset: 3 02-20-2023 Episodic Other connective tissue disease (8 sources) Muscle weakness; Translations: [Muscle weakness (generalized)] Onset: 0 03-30-2023 Episodic Other diseases of veins and lymphatics (8 sources) Peripheral venous insufficiency; Translations: [Venous insufficiency (chronic) (peripheral)] Onset: 8 03-30-2023 Episodic Other fractures (1 source) Fracture of one rib, left side, initial encounter for closed fracture; Translations: [FX 1 RIB LT SIDE INITIAL CLOS FX] Onset: 2 Episodic Other gastrointestinal disorders (8 sources) H/O: gastrointestinal disease; Translations: [Personal history of other diseases of the digestive system] Onset: 9 03-30-2023 Episodic Other nervous system disorders (1 source) Anesthesia of skin; Translations: [ANESTHESIA OF SKIN] Onset: 8 Episodic Other nervous system disorders (8 sources) Tremor; Translations: [Tremor, unspecified] Onset: 8 03-30-2023 Episodic Other screening for suspected conditions (not mental disorders or infectious disease) (17 sources) Encounter for screening for osteoporosis; Translations: [Mammography abnormal] Onset: 2 03-30-2023 Episodic Residual codes; unclassified (1 source) Patient's intentional underdosing of medication regimen due to financial hardship; Translations: [PT INTENTL UNDRDOSE OF MEDS REGIMEN DUE TO FINANCL HARDSHIP] Onset: 8 Episodic Residual codes; unclassified (1 source) Estrogen receptor positive status [ER+]; Translations: [Estrogen receptor positive status [ER+]] Onset: 2 Episodic Residual codes; unclassified (8 sources) Amnesia; Translations: [Other amnesia] Onset: 9 03-30-2023 Episodic Spondylosis; intervertebral disc disorders; other back problems (8 sources) Lumbar radiculopathy; Translations: [Radiculopathy, lumbar region] Onset: 0 03-30-2023 Episodic Results Test Name Value Interpretation Reference Range Facility Physician Referralon 024 Physician Referral [id number]#1.00TIFF Normal [facility] Progress Note - Nutritionon 12-11-2023 Progress Note - Nutrition Ceci was here w for f/u MNT/DSME visit. Her began by telling me that he is here to tell me what she is actually eating. Recent A1C 8.1% decreased from 11-12 range. Weight today has decreased from previous years visits. 216.4#. Not checking her blood sugars. Continues to wait for her CGM. Has not checked her glucose since last visit. HS snack crackers 1 2-3 ounces of cheese and 2-3 ounces of summer sausage. Food labels reviewed: Waffle cereal and sugar crisps cereals reviewed. Discussed added sugars in detail. F/U in January. Normal [facility] Office Visiton 11-19-2023 Follow-up visit [id number] Jaiden,Jostin Mesa 1955 F Date Provider Department Center 11/19/2023 GARRETT [facility]ED[facility] No family history on file Level of Service:72104 [place] OFFICE/OUTPATIENT ESTABLISHED MOD MDM 30 MIN Normal [facility] Diabetic Self Management Edu cationon 11-09-2023 Diabetic Self Management Education [id number]#1.00TIFF [facility] Consent for Treatmenton Consent for Treatment [id number]#1.00TIFF [facility] Physician Orderon 10-10-2023 Physician Order [id number]#1.00TIFF [facility] 36on 07-30-2023 36 Informed Mily Normal [facility] Office Visiton 06-20-2023 Follow-up visit [id number] Jostin Powell 1955 F Date Provider Department Center 06/20/2023 RamónGARRETT MCDONALD AMBER [facility] No family history on file Level of Service:31843 [place] OFFICE/OUTPATIENT ESTABLISHED LOW MDM 20-29 MIN [facility] AMYLASEon 02-14-2023 Amylase [Catalytic activity/Vol] 39 U/L Normal 25-115 [facility] Comment on above: Performed By: #### C MP, KAROLINE, LIPA ####[facility] [address] [place], [place] [address]OdDr. Manuel Reed CBC AUTO DIFFon 02-14-2023 BASO # 0.0 103/ul Normal 0.0-0.1 [facility] Comment on above: Performed By: #### C BC #### [facility] [address] [address] [address] Manuel Reed Basophils/100 WBC (Bld) 0.5 % Normal 0.2-2.0 [facility] Comment on above: Performed By: #### C BC #### [facility] [address] [address] [address] Manuel Reed EO # 0.3 103/ul Normal 0.0-0.7 [facility] Comment on above: Performed By: #### C BC #### [facility] [address] [address] [address] Manuel Reed Eosinophils/100 WBC (Bld) 3.8 % Normal 0.9-7.0 [facility] Comment on above: Performed By: #### C BC #### [facility] [address] [address] [address] Manuel Reed Erythrocyte distribution width (RBC) [Ratio] 12.9 % Normal 11.0-15.0 [facility] Comment on above: Performed By: #### C BC #### [facility] [address] [place] [address] Dr. Manuel Reed Hematocrit (Bld) [Volume fraction] 43.2 % Normal 36.0-48.0 [facility] Comment on above: Performed By: #### C BC #### [facility] [address] [address] [address] Manuel Reed Hemoglobin (Bld) [Mass/Vol] 14.2 g/dL Normal 12.0-16.0 [facility] Comment on above: Performed By: #### C BC #### [facility] [address] [address] [address] Manuel Reed IG # 0.02 10e3/ul Normal 0.00-0.03 [facility] Comment on above: Performed By: #### C BC #### [facility] [address] [place] [address] Dr. Manuel Reed IG % 0.3 % Normal 0.0-0.5 [facility] Comment on above: Performed By: #### C BC #### [facility] [address] [place] [address] Dr. Manuel Reed LYMPH # 2.9 103/ul Normal 1.2-3.8 [facility] Comment on above: Performed By: #### C BC #### [facility] [address] [place] [address] Dr. Manuel Reed Lymphocytes/100 WBC (Bld) 39.5 % Normal 20.5-60.0 [facility] Comment on above: Performed By: #### C BC #### [facility] [address] [place] [address] Dr. Manuel Reed MANUAL DIFF REQ NO Normal [facility] Comment on above: Performed By: #### C BC #### [facility] [address] [place] [address] Dr. Manuel Reed MCH (RBC) [Entitic mass] 29.5 pg Normal 26.7-34.0 [facility] Comment on above: Performed By: #### C BC #### [facility] [address] [place] [address] Dr. Manuel Reed MCHC (RBC) [Mass/Vol] 32.9 g/dL Normal 29.9-35.2 [facility] Comment on above: Performed By: #### C BC #### [facility] [address] [place] [address] Dr. Manuel Reed MCV (RBC) [Entitic vol] 89.8 fL Normal 81.0-99.0 [facility] Comment on above: Performed By: #### C BC #### [facility] [address] [place] [address] Dr. Manuel Reed MONO # 0.7 103/ul Normal 0.3-0.8 [facility] Comment on above: Performed By: #### C BC #### [facility] [address] [place] [address] Dr. Manuel Reed Monocytes/100 WBC (Bld) 10.1 % Normal 1.7-12.0 [facility] Comment on above: Performed By: #### C BC #### [facility] [address] [place] [address] Dr. Manuel Reed NEUT # 3.4 103/ul Normal 1.4-6.5 [facility] Comment on above: Performed By: #### C BC #### [facility] [address] [place] [address] Dr. Manuel Reed Neutrophils/100 WBC (Bld) 45.8 % Normal 43.0-75.0 [facility] Comment on above: Performed By: #### C BC #### [facility] [address] [place] [address] Dr. Manuel Reed Platelet mean volume (Bld) [Entitic vol] 10.6 fL Normal 9.5-13.5 [facility] Comment on above: Performed By: #### C BC #### [facility] [address] [place] [address] Dr. Manuel Reed PLT 259 103/ul Normal 150-450 [facility] Comment on above: Performed By: #### C BC #### [facility] [address] [place] [address] Dr. Manuel Reed RBC 4.81 106/ul Normal 4.20-5.40 [facility] Comment on above: Performed By: #### C BC #### [facility] [address] [place] [address] Dr. Manuel Reed WBC 7.4 103/ul Normal 4.0-11.0 [facility] Comment on above: Performed By: #### C BC #### [facility] [address] [place] [address] ABD/PELV W CONon 02-15-20 CT ABD/PELV W CON EXAMINATION: CT ABD/ PELV W CON 02/14/2023 COMPARISON STUDY: CT of the chest without contrast 01/15/2022. CT of the abdomen and pelvis without contrast 11/16/2011. HISTORY: UNSPECIFIED ABDOMINAL PAIN. TECHNIQUE: 3 mm sections were obtained from the lung bases through the pubic symphysis following administration of intravenous contrast. Coronal and sagittal reconstructed images were obtained Dose reduction techniques were achieved by using automated exposure control and/or adjustment of mA and/or kV according to patient size and/or use of iterative reconstruction technique. CT ABDOMEN: Patient is morbidly obese. Heart size is normal. Coronary artery calcifications are identified. Lung bases are grossly clear. The right hepatic lobe has superior to inferior length of 24 cm. Background diffuse hepatic steatosis is noted. Multiple granulomatous type splenic calcifications are identified. Spleen, gallbladder, pancreas, adrenals and kidneys demonstrate no acute abnormality. Bilateral renal cysts are noted. An upper pole left renal cyst for example measures 6 mm. An exophytic cyst off the lateral cortex at the inferior pole measures 2.9 cm. A cyst at the inferior pole of the right kidney measures 10 mm. Atherosclerotic change of the aorta and its branches without aneurysm or dissection. Significant calcified plaque formation involving the proximal portions of the celiac and renal arteries noted. CT PELVIS: Urinary bladder, uterus and ovaries appear age appropriate. Significant retention of stool within the large bowel suggestive of constipation. Bowel pattern does not appear to be obstructive. Negative for appendicitis or diverticulitis. A small radiopaque pill is suspected within a jejunal segment within the mid abdomen, image 65 with transverse diameter of 8 mm. Multilevel thoracic and lumbar spondylitic/facet arthritic changes with lumbar degenerative changes most apparent at L4-L5 and L5-S1. Multilevel lumbar canal stenosis noted. This is quite apparent at L4-L5 and less so at L5-S1 levels. There is no acute fracture. IMPRESSION: 1. Morbid obesity. Hepatomegaly with diffuse hepatic steatosis. 2. Small bilateral renal cysts. 3. Constipation. Negative for urolithiasis, appendicitis or diverticulitis. Electronically authenticated by: DIANA BUI Date: 2023-02-14 02:48 Normal [facility] ER URINE PROFILEon 3 Bilirubin Ql (U) Negative Normal NEGATIVE [facility] Comment on above: Performed By: #### U MICRO, ERUR #### [facility] [address] [address] [address] Manuel Reed Clarity (U) CLEAR Normal CLEAR [facility] Comment on above: Performed By: #### U MICRO, ERUR #### [facility] [address] [address] [address] Manuel Reed Color (U) LT. YELLOW Normal YELLOW [facility] Comment on above: Performed By: #### U MICRO, ERUR #### [facility] [address] [address] [address] Manuel HOPE A micrscopic examina tion will be performed if indicated. Normal [facility] Comment on above: Performed By: #### U MICRO, ERUR #### [facility] [address] [address] [address] Manuel Reed Glucose Ql (U) 1000 mg/dl Abnormal NEGATIVE [facility] Comment on above: Performed By: #### U MICRO, ERUR #### [facility] [address] [place] [address] Dr. Manuel Reed Hemoglobin Ql (U) LARGE Abnormal NEGATIVE [facility] Comment on above: Performed By: #### U MICRO, ERUR #### [facility] [address] [address] [address] Manuel Reed Ketones Ql (U) Negative Normal NEGATIVE [facility] Comment on above: Performed By: #### U MICRO, ERUR #### [facility] [address] [address] [address] Manuel Reed LEUKOCYTES TRACE Abnormal NEGATIVE [facility] Comment on above: Performed By: #### U MICRO, ERUR #### [facility] [address] [address] [address] Manuel Reed Nitrite Ql (U) Negative Normal NEGATIVE [facility] Comment on above: Performed By: #### U MICRO, ERUR #### [facility] [address] [address] [address] Manuel Reed pH (U) 5.5 [pH] Normal 5-9 [facility] Comment on above: Performed By: #### U MICRO, ERUR #### [facility] [address] [place] [address] Dr. Manuel Reed SPEC GRAVITY 1.015 Normal 1.005-<=1.0 25 [facility] Comment on above: Performed By: #### U MICRO, ERUR #### [facility] [address] [address] [address] Manuel Reed UA PROTEIN Negative Normal NEGATIVE/ TRACE [facility] Comment on above: Performed By: #### U MICRO, ERUR #### [facility] [address] [address] [address] Manuel Reed UR MICRO IND INDICATED Normal [facility] Comment on above: Performed By: #### U MICRO, ERUR #### [facility] [address] [address] [address] Manuel Reed Urobilinogen Qn (U) 0.2 {Seven'U}/dL Normal 0.2 - 1. 0 [facility] Comment on above: Performed By: #### U MICRO, ERUR #### [facility] [address] [place] [address] Dr. Manuel Reed LACTATE/LACTIC ACIDon 2022 Lactate [Moles/Vol] 2.5 mmol/L Critically high 0.4-2.0 [facility] Comment on above: Performed By: #### L ACT #### [facility] [address] [address] [address] Manuel Reed LIPASEon 02-14-2023 Lipase [Catalytic activity/Vol] 167.0 U/L Normal 73.0-393.0 [facility] Comment on above: Performed By: #### C NORTH KAROLINE, LIPA ####[facility] [address] [address]Dr. Manuel Reed PROF 14(COMP METB)on 023 Albumin [Mass/Vol] 3.2 g/dL Critically low 3.4-5.0 [facility] Comment on above: Performed By: #### C MP, KAROLINE, LIPA ####[facility] [address] [address]Dr. Manuel Reed Albumin/Globulin [Mass ratio] 0.8 {ratio} Normal [facility] Comment on above: Performed By: #### C MP, KAROLINE, LIPA ####[facility] [address] [id number]. Manuel Reed ALP [Catalytic activity/Vol] 113 U/L Normal 46-116 [facility] Comment on above: Performed By: #### C MP, KAROLINE, LIPA ####[facility] [address] [address]Dr. Manuel Reed ALT [Catalytic activity/Vol] 42 U/L Normal 14-59 [facility] Comment on above: Performed By: #### C MP, KAROLINE, LIPA ####[facility] [address] [address]Dr. Manuel Reed Anion gap [Moles/Vol] 16.1 mmol/L Normal [facility] Comment on above: Performed By: #### C MP, KAROLINE, LIPA ####[facility] [address] [address]Dr. Manuel Reed AST [Catalytic activity/Vol] 21 U/L Normal 15-37 [facility] Comment on above: Performed By: #### C MP, KAROLINE, LIPA ####[facility] [address] [address]Dr. Manuel Reed Bilirubin [Mass/Vol] 0.2 mg/dL Normal 0.2-1.0 [facility] Comment on above: Performed By: #### C MP, KAROLINE, LIPA ####[facility] [address] [address]Dr. Manuel Reed Calcium [Mass/Vol] 9.3 mg/dL Normal 8.5-10.1 [facility] Comment on above: Performed By: #### C MP, KAROLINE, LIPA ####[facility] [address] [address]Dr. Manuel Reed Chloride [Moles/Vol] 102 mmol/L Normal 98-107 [facility] Comment on above: Performed By: #### C MP, KAROLINE, LIPA ####[facility] [address] [address]Dr. Manuel Reed CO2 [Moles/Vol] 26.5 mmol/L Normal 21.0-32.0 [facility] Comment on above: Performed By: #### C MP, KAROLINE, LIPA ####[facility] [address] [address]Dr. Manuel Reed Creatinine [Mass/Vol] 1.15 mg/dL Critically high 0.55-1.02 [facility] Comment on above: Performed By: #### C MP, KAROLINE, LIPA ####[facility] [address] [address]Dr. Manuel Reed EGFR-AF KYRGYZ 57 mL/min/1.73m2 Critically low >=60 [facility] Comment on above: Performed By: #### C MP, KAROLINE, LIPA ####[facility] [address] [place], [place] [address]Dr. Manuel Reed EGFR-NON AF KYRGYZ 47 mL/min/1.73m2 Critically low >=60 [facility] Comment on above: Performed By: #### C MP, KAROLINE, LIPA ####[facility] [address] [place], [place] [address]Dr. Manuel Reed Globulin (S) [Mass/Vol] 4.2 g/dL Normal [facility] Comment on above: Performed By: #### C MP, KAROLINE, LIPA ####[facility] [address] [address]Dr. Manuel Reed Glucose [Mass/Vol] 396 mg/dL Critically high 74-106 [facility] Comment on above: Performed By: #### C MP, KAROLINE, LIPA ####[facility] [address] [place], [place] [address]Dr. Manuel Reed Potassium [Moles/Vol] 4.6 mmol/L Normal 3.5-5.1 [facility] Comment on above: Performed By: #### C MP, KAROLINE, LIPA ####[facility] [address] [place], [place] [address]Dr. Manuel Reed Protein [Mass/Vol] 7.4 g/dL Normal 6.4-8.2 [facility] Comment on above: Performed By: #### C MP, KAROLINE, LIPA ####[facility] [address] [address]Dr. Manuel Reed Sodium [Moles/Vol] 140 mmol/L Normal 136-145 [facility] Comment on above: Performed By: #### C KAROLINE KAT, LIPA ####[facility] [address] [address]Dr. Manuel Reed Urea nitrogen [Mass/Vol] 21.0 mg/dL Critically high 7.0-18.0 [facility] Comment on above: Performed By: #### C KAROLINE KAT, LIPA ####[facility] [address] [address]Dr. Manuel Reed Urea nitrogen/Creatinine [Mass ratio] 18.3 mg/mg Normal [facility] Comment on above: Performed By: #### C KAROLINE KAT LIPA ####[facility] [address] [place], [place] [address]Dr. Manuel Reed PROTIMEon 02-14-2023 INR Coag (PPP) [Relative time] 0.97 {INR} Normal [facility] Comment on above: Performed By: #### P TT, PT ####[facility] [address] [place], [place] [address]Dr. Manuel Reed INR GUIDELINES SEE BELOW Normal [facility] Comment on above: Result Comment: AKHIL RED INR: 2.0 - 3.0 CONDITIONS NOT LISTED BELOW 2.5 - 3.5 FOR PROSTHETIC HEART VALVE REPLACEMENT 2.5 - 3.5 RECURRENT THROMBOSIS Performed By: #### P TT, PT ####[facility] [address] [place], [place] [address]Dr. Manuel Reed PT Coag (PPP) [Time] 10.3 s Normal 9.0-11.6 [facility] Comment on above: Performed By: #### P TT, PT ####[facility] [address] [place], [place] [address]Dr. Manuel Reed PTTon 02-14-2023 aPTT Coag (Bld) [Time] 25.7 s Normal 22.3-36.2 [facility] Comment on above: Performed By: #### P TT, PT ####[facility] [address] [address]Dr. Manuel Rede URINE MICROSCOPIC ONLYon BACTERIA TRACE Abnormal NONE SEEN [facility] Comment on above: Performed By: #### U MICRO, ERUR #### [facility] [address] [address] [address] Manuel Reed Bacteria identified Cx Nom (U) NOT INDICATED Normal [facility] Comment on above: Performed By: #### U MICRO, ERUR #### [facility] [address] [address] [address] Manuel Reed CAST NONE SEEN Normal NONE SEEN [facility] Comment on above: Performed By: #### U MICRO, ERUR #### [facility] [address] [place] [address] Dr. Manuel Reed Crystals LM Nom (Urine sed) NONE SEEN Normal NONE SEEN [facility] Comment on above: Performed By: #### U MICRO, ERUR #### [facility] [address] [address] [address] Manuel Reed Epithelial cells LM Ql (Urine sed) RARE Normal NONE SEEN /RARE [facility] Comment on above: Performed By: #### U MICRO, ERUR #### [facility] [address] [place] [address] Dr. Manuel Reed MUCOUS NONE SEEN Normal NONE SEEN [facility] Comment on above: Performed By: #### U MICRO, ERUR #### [facility] [address] [address] [address] Manuel Reed RBC 0-2 Normal 0-2 [facility] Comment on above: Performed By: #### U MICRO, ERUR #### [facility] [address] [address] [address] Manuel Reed WBC 0-2 Abnormal NONE SEEN [facility] Comment on above: Performed By: #### U MICRO, ERUR #### [facility] [address] [place] [address] Dr. Manuel Reed MG MAMM DIAGNOSTIC 3D TIFFANY CA Don 01-04-2023 MG MAMM DIAGNOSTIC 3D TIFFANY CAD Patient: KYLE POWELL Exam Date: 01/04/2023 : 1955 Gender:F Ordering : DR FARAZ OSMAN M.D. Admission #: [id number] Family : Order #: [id number] CLICK HERE TO VIEW EXAM RADIOLOGY REPORT PROCEDURE: MAMMOGRAM DIAGNOSTIC 3D BILATERAL CAD COMPARISON: MG MAMM SCREEN 3D TIFFANY CAD, 10/13/2021. MG MAMM LT DIAG W CAD, 10/24/2021. US BREAST TIFFANY LIMITED, 10/24/2021. MAMMO POST BIOPSY LEFT, 11/07/2021. INDICATIONS: Primary malignant neoplasm of female left breast Calculator Name NCI Breast Cancer Risk Assessment Tool 5 Year Breast Cancer Risk 2.20% Lifetime Breast Cancer Risk 7.60% Personal Breast Cancer No Personal Ovarian Cancer No Treatments None Family Cancers Mother with colon cancer at age 60. LOCATION: [facility] BREAST COMPOSITION: Scattered areas fibroglandular density. FINDINGS: DIAGNOSTIC CATEGORY 3--PROBABLY BENIGN FINDING. THE FOLLOWING FINDING(S) HAS A HIGH PROBABILITY OF A BENIGN ETIOLOGY: RIGHT BREAST: No significant suspicious finding. Scattered benign-appearing nodules are present. No significant change has occurred. LEFT BREAST: Spiculated opacity within posterior upper-outer quadrant with adjacent surgical clips compatible with post surgery scarring. Follow-up imaging in 6 months is recommended to document stability and to exclude residual cancer. RECOMMENDATIONS: SHORT TERM FOLLOW-UP DIAGNOSTIC MAMMOGRAM LEFT BREAST IN 6 MONTHS. PLEASE NOTE: A NORMAL MAMMOGRAM DOES NOT EXCLUDE THE POSSIBILITY OF BREAST CANCER. A CLINICALLY SUSPICIOUS PALPABLE LUMP SHOULD BE BIOPSIED. Dictated by: Barron Benavides M.D. on 01/04/2023 at 14:39 Approved by: Barron Benavides M.D. on 01/04/2023 at 14:48 Normal [facility] NM STRESS/REST MULTIon 11-06 NM STRESS/REST MULTI Patient: HOLLI POWELL Exam Date: 11/06/2022 : 1955 Gender:F Ordering : DR GARRETT MCDONALD M.D. Admission #: [id number] Family : DR FARAZ OSMAN M.D. Order #: [id number] CLICK HERE TO VIEW EXAM RADIOLOGY REPORT PROCEDURE: RADIONUCLIDE IMAGING STRESS/REST MULTI COMPARISON: NM STRESS/REST MULTI, 09/04/2018. INDICATIONS: Chest pain, coronary arterosclerosis TECHNIQUE: Exam Description: Stress/Rest one day protocol gated SPECT Rest Imagin.6 mCi Tc-99m Cardiolite IV on 11/06/2022 Stress Imaging 27.2 mCi Tc-99m Cardiolite IV on 11/06/2022 Exercise Protocol: 0.4 mg Lexiscan given IV Heart Rate (bpm): Rest: 68 Max: 91 PMHR: 59 Blood Pressure: Rest: 162/98 Max: 172/82 Symptoms: Rest and peak stress ECG findings were equivocal and the exercise portion of the study was Equivocal per attending physician Dr. West. For more details please see separate cardiac stress test report. FINDINGS: QUALITY OF STUDY: Excellent. PERFUSION DEFECT: None. LOCATION: N/A SIZE: N/A. SEVERITY: N/A. TYPE: N/A. WALL MOTION: Normal. LV SIZE: Normal. 70 mL. TID / TCD: None; 0.9 LVEF: Normal. Calculated EF 70%. SUMMARY: Myocardial perfusion imaging study is NORMAL. CONCLUSION: 1. Normal myocardial perfusion scan. No reversible ischemia 2. Equivocal exercise test Dictated by: Carlos Eduardo Jasso MD on 11/07/2022 at 08:09 Approved by: Carlos Eduardo Jasso MD on 11/07/2022 at 08:12 Normal [facility] CBC AUTO DIFFon 05-29-2022 BASO # 0.0 103/ul Normal 0.0-0.1 [facility] Comment on above: Performed By: #### C BC ####[facility] [address] [place] [id number]. Manuel Reed Basophils/100 WBC (Bld) 0.3 % Normal 0.2-2.0 [facility] Comment on above: Performed By: #### C BC ####[facility] [address] [place] [id number]. Manuel Reed EO # 0.2 103/ul Normal 0.0-0.7 [facility] Comment on above: Performed By: #### C BC ####[facility] [address] [place] [id number]. Manuel Reed Eosinophils/100 WBC (Bld) 3.1 % Normal 0.9-7.0 [facility] Comment on above: Performed By: #### C BC ####[facility] [address] [place] [address]Dr. Manuel Reed Erythrocyte distribution width (RBC) [Ratio] 13.0 % Normal 11.0-15.0 [facility] Comment on above: Performed By: #### C BC ####[facility] [address] [place], [place] [address]Dr. Manuel Reed Hematocrit (Bld) [Volume fraction] 42.5 % Normal 36.0-48.0 [facility] Comment on above: Performed By: #### C BC ####[facility] [address] [place], [place] [address]Dr. Manuel Reed Hemoglobin (Bld) [Mass/Vol] 13.8 g/dL Normal 12.0-16.0 [facility] Comment on above: Performed By: #### C BC ####[facility] [address] [place], [place] [address]Dr. Manuel Reed IG # 0.02 10e3/ul Normal 0.00-0.03 [facility] Comment on above: Performed By: #### C BC ####[facility] [address] [place], [place] [address]Dr. Manuel Reed IG % 0.3 % Normal 0.0-0.5 [facility] Comment on above: Performed By: #### C BC ####[facility] [address] [place], [place] [address]Dr. Manuel Reed LYMPH # 2.5 103/ul Normal 1.2-3.8 [facility] Comment on above: Performed By: #### C BC ####[facility] [address] [place], [place] [address]Dr. Manuel [place] Lymphocytes/100 WBC (Bld) 38.2 % Normal 20.5-60.0 [facility] Comment on above: Performed By: #### C BC ####[facility] Eyj[address] [place], [place] [address]Dr. Tricarlos Reed MANUAL DIFF REQ NO Normal [facility] Comment on above: Performed By: #### C BC ####[facility] [address] [place] [id number]. Manuel [place] MCH (RBC) [Entitic mass] 29.9 pg Normal 26.7-34.0 [facility] Comment on above: Performed By: #### C BC ####[facility] [address] [place] [address]Dr. Manuel Reed MCHC (RBC) [Mass/Vol] 32.5 g/dL Normal 29.9-35.2 [facility] Comment on above: Performed By: #### C BC ####[facility] [address] [place], [place] [address]Dr. Manuel Reed MCV (RBC) [Entitic vol] 92.0 fL Normal 81.0-99.0 [facility] Comment on above: Performed By: #### C BC ####[facility] [address] [place], [place] [address]Dr. Manuel Reed MONO # 0.6 103/ul Normal 0.3-0.8 [facility] Comment on above: Performed By: #### C BC ####[facility] [address] [place], [place] [address]Dr. Manuel Reed Monocytes/100 WBC (Bld) 8.9 % Normal 1.7-12.0 [facility] Comment on above: Performed By: #### C BC ####[facility] [address] [place], [place] [address]Dr. Manuel Reed NEUT # 3.2 103/ul Normal 1.4-6.5 [facility] Comment on above: Performed By: #### C BC ####[facility] [address] [place], [place] [address]DrScott Reed Neutrophils/100 WBC (Bld) 49.2 % Normal 43.0-75.0 [facility] Comment on above: Performed By: #### C BC ####[facility] [address] [place], [place] [address]DrScott Reed Platelet mean volume (Bld) [Entitic vol] 10.8 fL Normal 9.5-13.5 [facility] Comment on above: Performed By: #### C BC ####[facility] [address] [place] [id number] Reed PLT 203 103/ul Normal 150-450 [facility] Comment on above: Performed By: #### C BC ####[facility] [address] [place] [id number]. Manuel Reed RBC 4.62 106/ul Normal 4.20-5.40 [facility] Comment on above: Performed By: #### C BC ####[facility] [address] [place] [id number]. Manuel Reed WBC 6.6 103/ul Normal 4.0-11.0 [facility] Comment on above: Performed By: #### C BC ####[facility] [address] [place] [address]Dr. Manuel Reed PROF 14(COMP METB)on 022 Albumin [Mass/Vol] 3.5 g/dL Normal 3.4-5.0 [facility] Comment on above: Performed By: #### C NORTH HSTROPN #### [facility] [address] [place] [address] Dr. Manuel Reed Albumin/Globulin [Mass ratio] 0.8 {ratio} Normal [facility] Comment on above: Performed By: #### C NORTH HSTROPN #### [facility] [address] [address] [address] Manuel Reed ALP [Catalytic activity/Vol] 81 U/L Normal 46-116 [facility] Comment on above: Performed By: #### C NORTH HSTROPN #### [facility] [address] [place] [address] Dr. Manuel Reed ALT [Catalytic activity/Vol] 38 U/L Normal 14-59 [facility] Comment on above: Performed By: #### C NORTH HSTROPN #### [facility] [address] [address] [address] Manuel Reed Anion gap [Moles/Vol] 13.0 mmol/L Normal [facility] Comment on above: Performed By: #### C NORTH, HSTROPN #### [facility] [address] [address] [address] Manuel Reed AST [Catalytic activity/Vol] 25 U/L Normal 15-37 [facility] Comment on above: Performed By: #### C NORTH, HSTROPN #### [facility] [address] [address] [address] Manuel Reed Bilirubin [Mass/Vol] 0.3 mg/dL Normal 0.2-1.0 [facility] Comment on above: Performed By: #### C NORTH, HSTROPN #### [facility] [address] [address] [address] Manuel Reed Calcium [Mass/Vol] 9.6 mg/dL Normal 8.5-10.1 [facility] Comment on above: Performed By: #### C NORTH, HSTROPN #### [facility] [address] [address] [address] Manuel Reed Chloride [Moles/Vol] 101 mmol/L Normal 98-107 [facility] Comment on above: Performed By: #### C NORTH, HSTROPN #### [facility] [address] [address] [address] Manuel Reed CO2 [Moles/Vol] 27.1 mmol/L Normal 21.0-32.0 [facility] Comment on above: Performed By: #### C NORTH, HSTROPN #### [facility] [address] [place] [address] Dr. Manuel Reed Creatinine [Mass/Vol] 0.93 mg/dL Normal 0.55-1.02 [facility] Comment on above: Performed By: #### C NORTH, HSTROPN #### [facility] [address] [address] [address] Manuel Reed EGFR-AF KYRGYZ >60 Normal >=60 [facility] Comment on above: Performed By: #### C NORTH, HSTROPN #### [facility] [address] [address] [address] Manuel Reed EGFR-NON AF KYRGYZ =60 Normal >=60 [facility] Comment on above: Performed By: #### C MP, HSTROPN #### [facility] [address] [address] [address] Manuel Reed Globulin (S) [Mass/Vol] 4.2 g/dL Normal [facility] Comment on above: Performed By: #### C MP, HSTROPN #### [facility] [address] [address] [address] Manuel Reed Glucose [Mass/Vol] 280 mg/dL Critically high 74-106 [facility] Comment on above: Performed By: #### C NORTH, HSTROPN #### [facility] [address] [place] [address] Dr. Manuel Reed Potassium [Moles/Vol] 4.1 mmol/L Normal 3.5-5.1 [facility] Comment on above: Performed By: #### C MP, HSTROPN #### [facility] [address] [address] [address] Manuel Reed Protein [Mass/Vol] 7.7 g/dL Normal 6.4-8.2 [facility] Comment on above: Performed By: #### C MP, HSTROPN #### [facility] [address] [address] [address] Manuel Reed Sodium [Moles/Vol] 137 mmol/L Normal 136-145 [facility] Comment on above: Performed By: #### C MP, HSTROPN #### [facility] [address] [place] [address] Dr. Manuel Reed Urea nitrogen [Mass/Vol] 21.0 mg/dL Critically high 7.0-18.0 [facility] Comment on above: Performed By: #### C MP, HSTROPN #### [facility] [address] [address] [address] Manuel Reed Urea nitrogen/Creatinine [Mass ratio] 22.6 mg/mg Normal [facility] Comment on above: Performed By: #### C MP, HSTROPN #### [facility] [address] [place], [place] [address] Dr[address] Manuel Reed TROPONIN, HIGH SENSITIVITYon 05-29-2022 HSTROP 8.1 pg/mL Normal 4.0-51.3 [facility] Comment on above: Result Comment: CUT- OFF POINTS HAVE BEEN ESTABLISHED BASED ON THE FOURTH UNIVERSAL DEFINITIONS OF MYOCARDIAL INFARCTION. THE UPPER REFERENCE LIMIT (URL) OF TROPONIN, DEFINED THE 99TH PERCENTILE OF cTnI DISTRIBUTION IN A REFERENCE POPULATION, HAS BEEN CONFIRMED THE DECISION THRESHOLD FOR ID DIAGNOSIS. Performed By: #### C NORTH, HSTROPN #### [facility] [address] [address] [address] Manuel Reed XR RIBS LT PA Kristin 2 XR RIBS LT PA CH EXAM: XR RIBS LT PA CH HISTORY: Pain COMPARISON: Chest x-ray of 10/10/2021. TECHNIQUE: Single AP portable upright view of the chest as well as 6 additional views of the left ribs are submitted for review. FINDINGS: No pneumothorax, pleural effusion or focal airspace consolidation. Heart is normal in size. Subacute appearing nondisplaced fracture of the anterolateral left eighth rib is seen. IMPRESSION: Subacute appearing nondisplaced fracture of the anterolateral left eighth rib Electronically authenticated by: DIAMOND CHAN Date: 2022-05-29 18:37 Normal [facility] PROF CHEM 8 (BAS METB)on Anion gap [Moles/Vol] 14.1 mmol/L Normal [facility] Comment on above: Performed By: #### B MP #### [facility] [address] [place], [place] [address] Dr. Manuel Reed Calcium [Mass/Vol] 8.9 mg/dL Normal 8.5-10.1 [facility] Comment on above: Performed By: #### B MP #### [facility] [address] [place], [place] [address] Dr. Manuel Reed Chloride [Moles/Vol] 100 mmol/L Normal 98-107 [facility] Comment on above: Performed By: #### B MP #### [facility] [address] [address] [address] Manuel Reed CO2 [Moles/Vol] 26.4 mmol/L Normal 21.0-32.0 [facility] Comment on above: Performed By: #### B MP #### [facility] [address] [address] [address] Manuel Reed Creatinine [Mass/Vol] 0.94 mg/dL Normal 0.55-1.02 [facility] Comment on above: Performed By: #### B MP #### [facility] [address] [address] [address] Manuel Reed EGFR-AF KYRGYZ >60 Normal >=60 [facility] Comment on above: Performed By: #### B MP #### [facility] [address] [place] [address] Dr. Manuel Reed EGFR-NON AF KYRGYZ 60 mL/min/1.73m2 Normal >=60 [facility] Comment on above: Performed By: #### B MP #### [facility] [address] [address] [address] Manuel Reed Glucose [Mass/Vol] 336 mg/dL Critically high 74-106 [facility] Comment on above: Performed By: #### B MP #### [facility] [address] [place] [address] Dr. Manuel Reed Potassium [Moles/Vol] 4.5 mmol/L Normal 3.5-5.1 [facility] Comment on above: Performed By: #### B MP #### [facility] [address] [address] [address] Manuel Reed Sodium [Moles/Vol] 136 mmol/L Normal 136-145 [facility] Comment on above: Performed By: #### B MP #### [facility] [address] [address] [address] Manuel Reed Urea nitrogen [Mass/Vol] 12.0 mg/dL Normal 7.0-18.0 [facility] Comment on above: Performed By: #### B MP #### [facility] [address] [place] [address] Dr. Manuel Reed Urea nitrogen/Creatinine [Mass ratio] 12.8 mg/mg Normal [facility] Comment on above: Performed By: #### B #### [facility] [address] [address] [address] Manuel Reed Glucose Glucometer (BldC) [M ass/Vol]Ordered By: Jac Hemphill on 12-20-2021 Glucose [Mass/Vol] 181 mg/dL [facility] Comment on above: Random Glucose Refer ence Range is dependent on time and content of last meal. Glucose of more than 200 mg/dL in a nonstressed, ambulatory subject supports the diagnosis of Diabetes Mellitus. No Panel InformationOrdered By: Jac Hemphill on 12-20-2021 Bedside Glucose Comment Glu2: cleaned meter [facility] COVID-19 Positive/NegativeOr dered By: Jac Hemphill on 12-16-2021 SARS-CoV-2 (COVID-19) N gene DUYEN+probe Ql (Resp) Negative Negative [facility] Comment on above: Testing for SARS-CoV -2 by RT-PCRThis test was developed and its performance characteristics determined by [employer] and validated at the [facility]. This test has not been FDA cleared or approved. This test has been authorized by FDA under an Emergency Use Authorization (EUA). This test has been validated in accordance with the FDA's Guidance Document (Policy for Diagnostics Testing in Laboratories Certified to Perform High Complexity Testing under CLIA prior to Emergency Use Authorization for Coronavirus Disease-2019 during the Public Health Emergency) issued on January 01, 2020. This test is only authorized for the duration of time the declaration that circumstances exist justifying the authorization of the emergency use of in vitro diagnostic tests for detection of SARS-CoV-2 virus and/or diagnosis of COVID-19 infection under section 564(b)(1) of the Act, 21 U.S.C. 360bbb-3(b)(1), unless the authorization is terminated or revoked sooner. Testing for SARS-CoV -2 by RT-PCR This test was developed and its performance characteristics determined by [employer] and validated at the [facility]. This test has not been FDA cleared or approved. This test has been authorized by FDA under an Emergency Use Authorization (EUA). This test has been validated in accordance with the FDA's Guidance Document (Policy for Diagnostics Testing in Laboratories Certified to Perform High Complexity Testing under CLIA prior to Emergency Use Authorization for Coronavirus Disease-2019 during the Public Health Emergency) issued on January 01, 2020. This test is only authorized for the duration of time the declaration that circumstances exist justifying the authorization of the emergency use of in vitro diagnostic tests for detection of SARS-CoV-2 virus and/or diagnosis of COVID-19 infection under section 564(b)(1) of the Act, 21 U.S.C. 360bbb-3(b)(1), unless the authorization is terminated or revoked sooner. Basophils Auto (Bld) [#/Vol] Ordered By: Jac Hemphill on 12-06-2021 Basophils (Bld) [#/Vol] 0.0 10*3/uL 0.0-0.2 [facility] Basophils/100 WBC Auto (Bld) Ordered By: Jac Hemphill on 12-06-2021 Basophils/100 WBC (Bld) 0.4 % [facility] Blood hemoglobin measurement (mass/volume)Ordered By: Jac Hemphill on 12-06-2021 Hemoglobin (Bld) [Mass/Vol] 14.9 g/dL 11.8-15.4 [facility] Blood leukocytes automated c ount (number/volume)Ordered By: Jac Hemphill on 12-06-2021 WBC (Bld) [#/Vol] 9.1 10*3/uL 4.5-11.0 [facility] Creatinine and Glomerular fi ltration rate.predicted panel (S/P/Bld)Ordered By: Jac Hemphill on 12-06-2021 Creatinine [Mass/Vol] 0.75 mg/dL 0.44-1.03 [facility] Eosinophils Auto (Bld) [#/Vo l]Ordered By: Jac Hemphill on 12-06-2021 Eosinophils (Bld) [#/Vol] 0.2 10*3/uL 0.0-0.45 [facility] Eosinophils/100 WBC Auto (Bl d)Ordered By: Jac Hemphill on 12-06-2021 Eosinophils/100 WBC (Bld) 1.8 % [facility] Erythrocyte distribution wid th Auto (RBC) [Ratio]Ordered By: Jac Hemphill on 12-06-2021 Erythrocyte distribution width (RBC) [Ratio] 13.7 % 11.9-15.3 [facility] Estimated glomerular filtrat ion rate (GFR) non- AmericanOrdered By: Jac Hemphill on 12-06-2021 GFR/1.73 sq M.predicted among non-blacks MDRD (S/P/Bld) [Vol rate/Area] > 60 mL/Min [facility] Hematocrit Auto (Bld) [Volum e fraction]Ordered By: Jac Hemphill on 12-06-2021 Hematocrit (Bld) [Volume fraction] 44.3 % 34.0-46.4 [facility] Laboratory - Hematology and Cell countsOrdered By: Jac Hemphill on 12-06-2021 Nucleated RBC/100 WBC (Bld) [Ratio] 0.1 % 0-0.5 [facility] Lymphocytes Auto (Bld) [#/Vo l]Ordered By: Jac Hemphill on 12-06-2021 Lymphocytes (Bld) [#/Vol] 2.8 10*3/uL 1.00-4.8 [facility] Lymphocytes/100 WBC Auto (Bl d)Ordered By: Jac Hemphill on 12-06-2021 Lymphocytes/100 WBC (Bld) 30.8 % [facility] MCH Auto (RBC) [Entitic mass ]Ordered By: Jac Hemphill on 12-06-2021 MCH (RBC) [Entitic mass] 30.0 pg 24.7-34.3 [facility] MCHC Auto (RBC) [Mass/Vol]Or dered By: Jac Hemphill on 12-06-2021 MCHC (RBC) [Mass/Vol] 33.8 g/dL 32.0-35.0 [facility] MCV Auto (RBC) [Entitic vol] Ordered By: Jac Hemphill on 12-06-2021 MCV (RBC) [Entitic vol] 88.9 fL 80-100 [facility] Monocytes Auto (Bld) [#/Vol] Ordered By: Jac Hemphill on 12-06-2021 Monocytes (Bld) [#/Vol] 0.8 10*3/uL 0.0-0.8 [facility] Monocytes/100 WBC Auto (Bld) Ordered By: Jac Hemphill on 12-06-2021 Monocytes/100 WBC (Bld) 8.3 % [facility] Neutrophils Auto (Bld) [#/Vo l]Ordered By: Jac Hemphill on 12-06-2021 Neutrophils (Bld) [#/Vol] 5.4 10*3/uL 1.8-7.7 [facility] Neutrophils/100 WBC Auto (Bl d)Ordered By: Jac Hemphill on 12-06-2021 Neutrophils/100 WBC (Bld) 58.7 % [facility] No Panel InformationOrdered By: Jac Hemphill on 12-06-2021 Estimated GFR () > 60 mL/Min [facility] Comment on above: GFR estimated refere nce range: According to KDOQI guidelines, <60 ml/min/1.73m2 is sufficient to diagnose a patient with chronic kidney disease. Pharmacy Creatinine Clearance (Chem N/A [facility] Platelet mean volume Auto (B ld) [Entitic vol]Ordered By: Jac Hemphill on 12-06-2021 Platelet mean volume (Bld) [Entitic vol] 8.7 fL 6.3-10.7 [facility] Platelets Auto (Bld) [#/Vol] Ordered By: Jac Hemphill on 12-06-2021 Platelets (Bld) [#/Vol] 284 10*3/uL 150-450 [facility] RBC Auto (Bld) [#/Vol]Ordere d By: Jac Hemphill on 12-06-2021 RBC (Bld) [#/Vol] 4.98 10*6/uL 3.60-5.00 [facility] Serum or plasma calcium alis urement (mass/volume)Ordered By: Jac Hemphill on 12-06-2021 Calcium [Mass/Vol] 9.5 mg/dL 8.2-10.2 [facility] Serum or plasma chloride eduardo surement (moles/volume)Ordered By: Jac Hemphill on 12-06-2021 Chloride [Moles/Vol] 96 mmol/L 95-114 [facility] Serum or plasma glucose alis urement (mass/volume)Ordered By: Jac Hemphill on 12-06-2021 Glucose [Mass/Vol] 285 mg/dL 70-100 [facility] Comment on above: ADA recommended refe rence rangeRandom Glucose Reference Range is dependent on time and content of last meal. Glucose of more than 200 mg/dL in a nonstressed, ambulatory subject supports the diagnosis of Diabetes Mellitus. ADA recommended refe rence range Random Glucose Reference Range is dependent on time and content of last meal. Glucose of more than 200 mg/dL in a nonstressed, ambulatory subject supports the diagnosis of Diabetes Mellitus. Serum or plasma potassium me asurement (moles/volume)Ordered By: Jac Hemphill on 12-06-2021 Potassium [Moles/Vol] 4.6 mmol/L 3.5-5.1 [facility] Serum or plasma sodium measu rement (moles/volume)Ordered By: Jac Hemphill on 12-06-2021 Sodium [Moles/Vol] 135 mmol/L 136-146 [facility] Serum or plasma total carbon dioxide measurement (moles/volume)Ordered By: Jac Hemphill on 12-06-2021 CO2 [Moles/Vol] 24.9 mmol/L 22.0-30.0 [facility] Serum or plasma urea nitroge n measurement (mass/volume)Ordered By: Jac Hemphill on 12-06-2021 Urea nitrogen [Mass/Vol] 13 mg/dL 9-23 [facility] BASIC METABOLIC PANELon 11-01 Calcium mass conc 8.6 mg/dL Normal 8.6-10.3 [facility] Comment on above: Order Comment: No: D o not add to previous draw Performed By: #### [id number] #### [facility] [address] [place] [address], [place] Chloride molar conc 107 mmol/L Normal 98-107 [facility] Comment on above: Order Comment: No: D o not add to previous draw Performed By: #### [id number] #### [facility] [address] [place] [address], [place] CO2 molar conc 26 mmol/L Normal 21-31 [facility] Comment on above: Order Comment: No: D o not add to previous draw Performed By: #### [id number] #### [facility] [address] [place] [address], [place] Creatinine mass conc 0.95 mg/dL Normal 0.60-1.20 [facility] Comment on above: Order Comment: No: D o not add to previous draw Performed By: #### 5 [id number] #### [facility] [address] [place] [address], [place] GFR/1.73 sq M predicted among blacks MDRD vol rate/area (S/P/Bld) mL/min/{1.73_m2} Normal >60 [facility] Comment on above: Order Comment: No: D o not add to previous draw Performed By: #### 5 [id number] #### [facility] [address] [place] [address], [place] GFR/1.73 sq M predicted among non-blacks MDRD vol rate/area (S/P/Bld) 59 ml/min/1.73sq m Abnormal >60 [facility] Comment on above: Order Comment: No: D o not add to previous draw Performed By: #### 5 [id number] #### [facility] [address] [place] [address], [facility] Glucose mass conc 177 mg/dL High 70-100 [facility] Comment on above: Order Comment: No: D o not add to previous draw Performed By: #### 5 [id number] #### [facility] [address] [place] [address], [facility] Potassium molar conc 3.8 mmol/L Normal 3.5-5.1 [facility] Comment on above: Order Comment: No: D o not add to previous draw Performed By: #### 5 [id number] #### [facility] [address] [place] [address], [facility] Sodium molar conc 139 mmol/L Normal 136-145 [facility] Comment on above: Order Comment: No: D o not add to previous draw Performed By: #### 5 [id number] #### [facility] [address] [place] [address], [facility] Urea nitrogen mass conc 13 mg/dL Normal 7-25 [facility] Comment on above: Order Comment: No: D o not add to previous draw Performed By: #### 5 [id number] #### [facility] [address] [place] [address], [facility] CBC W/DIFFon 11-18-2018 ABS BASOPHILS 0.0 10*3/uL Normal 0.0-0.2 [facility] Comment on above: Order Comment: No: D o not add to previous draw Performed By: #### 5 0608 #### [facility] [address] [place] [address], [facility] ABS IMM GRANS 0.1 10*3/uL Normal 0.0-0.2 The [facility] Comment on above: Order Comment: No: D o not add to previous draw Performed By: #### 5 0608 #### [facility] [address] [place] [address], [facility] ABS NEUTROPHILS 3.8 10*3/uL Normal 1.6-7.6 The [facility] Comment on above: Order Comment: No: D o not add to previous draw Performed By: #### 5 0608 #### [facility] [address] [place] [address], [facility] Basophils #/vol (Bld) 0.3 % Normal 0.0-1.0 The [facility] Comment on above: Order Comment: No: D o not add to previous draw Performed By: #### 5 0608 #### [facility] [address] [place] [id number], [facility] Eosinophils #/vol (Bld) 0.3 10*3/uL Normal 0.0-0.5 The [facility] Comment on above: Order Comment: No: D o not add to previous draw Performed By: #### 5 0608 #### [facility] [address] [place] [address], [facility] Eosinophils/100 WBC (Bld) 4.0 % Normal 0.0-6.0 The [facility] Comment on above: Order Comment: No: D o not add to previous draw Performed By: #### 5 0608 #### [facility] [address] [place] [address], [facility] Erythrocyte distribution width Ratio (RBC) 14.3 % Normal 11.5-15.0 The [facility] Comment on above: Order Comment: No: D o not add to previous draw Performed By: #### 5 0608 #### [facility] [address] [place] [address], [facility] Hematocrit Volume Fraction (Bld) 24.7 % Low 36.0-45.0 The [facility] Comment on above: Order Comment: No: D o not add to previous draw Performed By: #### 5 0608 #### [facility] [address] [place] [id number], [facility] Hemoglobin mass conc (Bld) 7.9 g/dL Low 12.0-15.0 The [facility] Comment on above: Order Comment: No: D o not add to previous draw Performed By: #### 5 0608 #### [facility] [address] IMMATURE GRANS 0.8 % Normal 0.0-1.0 The [facility] Comment on above: Order Comment: No: D o not add to previous draw Performed By: #### 5 0608 #### [facility] [address] [place] [address], [facility] Lymphocytes #/vol (Bld) 2.4 10*3/uL Normal 1.2-4.0 The [facility] Comment on above: Order Comment: No: D o not add to previous draw Performed By: #### 5 0608 #### [facility] [address] Lymphocytes/100 WBC (Bld) 33.7 % Normal 20.0-45.0 The [facility] Comment on above: Order Comment: No: D o not add to previous draw Performed By: #### 5 0608 #### [facility] [address] [facility] [facility] MCH Entitic mass (RBC) 30.5 pg Normal 27.0-33.0 The [facility] Comment on above: Order Comment: No: D o not add to previous draw Performed By: #### 5 0608 #### [facility] [address] MCHC mass conc (RBC) 32.0 g/dL Normal 32.0-35.0 The [facility] Comment on above: Order Comment: No: D o not add to previous draw Performed By: #### 5 0608 #### [facility] [address] [place] [address], [facility] MCV Entitic volume (RBC) 95.4 fL Normal 82.0-98.0 The [facility] Comment on above: Order Comment: No: D o not add to previous draw Performed By: #### 5 0608 #### [facility] [address] [place] [id number], [facility] Monocytes #/vol (Bld) 0.6 10*3/uL Normal 0.1-1.0 Th e [facility] Comment on above: Order Comment: No: D o not add to previous draw Performed By: #### 5 0608 #### [facility] [address] [place] [id number], [facility] MONOS 8.7 % Normal 5.0-12.0 The [facility] Comment on above: Order Comment: No: D o not add to previous draw Performed By: #### 5 0608 #### [facility] [address] [place] [address], [facility] Neutrophils/100 WBC (Bld) 52.5 % Normal 40.0-72.0 The [facility] Comment on above: Order Comment: No: D o not add to previous draw Performed By: #### 5 0608 #### [facility] [address] [place] [address], [facility] Nucleated RBC/100 WBC Ratio (Bld) 0 % Normal 0-0 The [facility] Comment on above: Order Comment: No: D o not add to previous draw Performed By: #### 5 0608 #### [facility] [address] [place] [address], [facility] PLAT CNT 312 10*3/uL Normal 150-400 The [facility] Comment on above: Order Comment: No: D o not add to previous draw Performed By: #### 5 0608 #### [facility] [address] [place] [id number], [facility] RBC #/vol (Bld) 2.59 10*6/uL Low 3.80-5.00 The [facility] Comment on above: Order Comment: No: D o not add to previous draw Performed By: #### 5 0608 #### [facility] [address] WBC #/vol (Bld) 7.23 10*3/uL Normal 4.00-10.60 The [facility] Comment on above: Order Comment: No: D o not add to previous draw Performed By: #### 5 0608 #### [facility] [address] [place] [address], [facility] POC GLUCOSE LABon 11-18-2018 Glucose mass conc 200 mg/dL High 70-100 The [facility] Comment on above: Performed By: #### 5 0608 #### [facility] [address] [place] [address], [facility] Glucose mass conc 172 mg/dL High 70-100 The [facility] Comment on above: Performed By: #### 5 0608 #### [facility] [address] BASIC METABOLIC PANELon 11-01 Calcium mass conc 8.2 mg/dL Low 8.6-10.3 The [facility] Comment on above: Order Comment: No: D o not add to previous draw Performed By: #### 5 0608 #### [facility] [address] [place] [address], [facility] Chloride molar conc 108 mmol/L High 98-107 The [facility] Comment on above: Order Comment: No: D o not add to previous draw Performed By: #### 5 0608 #### [facility] [address] [place] [address], [facility] CO2 molar conc 24 mmol/L Normal 21-31 The [facility] Comment on above: Order Comment: No: D o not add to previous draw Performed By: #### 5 0608 #### [facility] [address] [place] [address], [facility] Creatinine mass conc 0.93 mg/dL Normal 0.60-1.20 The [facility] Comment on above: Order Comment: No: D o not add to previous draw Performed By: #### 5 0608 #### [facility] [address] [place] [address], [place] GFR/1.73 sq M predicted among blacks MDRD vol rate/area (S/P/Bld) mL/min/{1.73_m2} Normal >60 The [facility] Comment on above: Order Comment: No: D o not add to previous draw Performed By: #### 5 0608 #### [facility] [address] [place] [address], [place] GFR/1.73 sq M predicted among non-blacks MDRD vol rate/area (S/P/Bld) mL/min/{1.73_m2} Normal >60 The [facility] Comment on above: Order Comment: No: D o not add to previous draw Performed By: #### 5 0608 #### [facility] [address] [place] [address], [facility] Glucose mass conc 164 mg/dL High 70-100 The [facility] Comment on above: Order Comment: No: D o not add to previous draw Performed By: #### 5 0608 #### [facility] [address] [place] [address], [facility] Potassium molar conc 4.0 mmol/L Normal 3.5-5.1 The [facility] Comment on above: Order Comment: No: D o not add to previous draw Performed By: #### 5 0608 #### [facility] [address] [place] [address], [facility] Sodium molar conc 139 mmol/L Normal 136-145 The [facility] Comment on above: Order Comment: No: D o not add to previous draw Performed By: #### 5 0608 #### [facility] [address] [place] [id number], [facility] Urea nitrogen mass conc 11 mg/dL Normal 7-25 The [facility] Comment on above: Order Comment: No: D o not add to previous draw Performed By: #### 5 0608 #### [facility] [address] CBC W/DIFFon 11-17-2018 ABS BASOPHILS 0.0 10*3/uL Normal 0.0-0.2 The [facility] Comment on above: Order Comment: No: D o not add to previous draw Performed By: #### 5 0608 #### [facility] [address] [place] [address], [facility] ABS IMM GRANS 0.0 10*3/uL Normal 0.0-0.2 The [facility] Comment on above: Order Comment: No: D o not add to previous draw Performed By: #### 5 0608 #### [facility] [address] ABS NEUTROPHILS 3.1 10*3/uL Normal 1.6-7.6 The [facility] Comment on above: Order Comment: No: D o not add to previous draw Performed By: #### 5 0608 #### [facility] [address] [place] [address], [facility] Basophils #/vol (Bld) 0.4 % Normal 0.0-1.0 The [facility] Comment on above: Order Comment: No: D o not add to previous draw Performed By: #### 5 0608 #### [facility] [address] [place] [address], [facility] Eosinophils #/vol (Bld) 0.2 10*3/uL Normal 0.0-0.5 The [facility] Comment on above: Order Comment: No: D o not add to previous draw Performed By: #### 5 0608 #### [facility] [address] [place] [address], [facility] Eosinophils/100 WBC (Bld) 3.6 % Normal 0.0-6.0 The [facility] Comment on above: Order Comment: No: D o not add to previous draw Performed By: #### 5 0608 #### [facility] [address] Erythrocyte distribution width Ratio (RBC) 14.3 % Normal 11.5-15.0 The [facility] Comment on above: Order Comment: No: D o not add to previous draw Performed By: #### 5 0608 #### [facility] [address] [place] [address], [facility] Hematocrit Volume Fraction (Bld) 24.7 % Low 36.0-45.0 The [facility] Comment on above: Order Comment: No: D o not add to previous draw Performed By: #### 5 0608 #### [facility] [address] [place] [address], [facility] Hemoglobin mass conc (Bld) 7.8 g/dL Low 12.0-15.0 The [facility] Comment on above: Order Comment: No: D o not add to previous draw Performed By: #### 5 0608 #### [facility] [address] [place] [address], [facility] IMMATURE GRANS 0.4 % Normal 0.0-1.0 The [facility] Comment on above: Order Comment: No: D o not add to previous draw Performed By: #### 5 0608 #### [facility] [address] [place] [address], [facility] Lymphocytes #/vol (Bld) 2.8 10*3/uL Normal 1.2-4.0 The [facility] Comment on above: Order Comment: No: D o not add to previous draw Performed By: #### 5 0608 #### [facility] [address] [place] [address], [facility] Lymphocytes/100 WBC (Bld) 41.5 % Normal 20.0-45.0 The [facility] Comment on above: Order Comment: No: D o not add to previous draw Performed By: #### 5 0608 #### [facility] [address] MCH Entitic mass (RBC) 30.6 pg Normal 27.0-33.0 The [facility] Comment on above: Order Comment: No: D o not add to previous draw Performed By: #### 5 0608 #### [facility] [address] [place] [address], [facility] MCHC mass conc (RBC) 31.6 g/dL Low 32.0-35.0 The [facility] Comment on above: Order Comment: No: D o not add to previous draw Performed By: #### 5 0608 #### [facility] [address] [place] [address], [facility] MCV Entitic volume (RBC) 96.9 fL Normal 82.0-98.0 The [facility] Comment on above: Order Comment: No: D o not add to previous draw Performed By: #### 5 0608 #### [facility] [address] [place] [address], [facility] Monocytes #/vol (Bld) 0.6 10*3/uL Normal 0.1-1.0 Th e [facility] Comment on above: Order Comment: No: D o not add to previous draw Performed By: #### 5 0608 #### [facility] [address] [place] [address], [facility] MONOS 8.2 % Normal 5.0-12.0 The [facility] Comment on above: Order Comment: No: D o not add to previous draw Performed By: #### 5 0608 #### [facility] [address] [place] [address], [facility] Neutrophils/100 WBC (Bld) 45.9 % Normal 40.0-72.0 The [facility] Comment on above: Order Comment: No: D o not add to previous draw Performed By: #### 5 0608 #### [facility] [address] [place] [address], [facility] Nucleated RBC/100 WBC Ratio (Bld) 0 % Normal 0-0 The [facility] Comment on above: Order Comment: No: D o not add to previous draw Performed By: #### 5 0608 #### [facility] [address] [place] [address], [facility] PLAT CNT 311 10*3/uL Normal 150-400 The [facility] Comment on above: Order Comment: No: D o not add to previous draw Performed By: #### 5 0608 #### [facility] [address] RBC #/vol (Bld) 2.55 10*6/uL Low 3.80-5.00 The [facility] Comment on above: Order Comment: No: D o not add to previous draw Performed By: #### 5 0608 #### [facility] [address] WBC #/vol (Bld) 6.74 10*3/uL Normal 4.00-10.60 The [facility] Comment on above: Order Comment: No: D o not add to previous draw Performed By: #### 5 0608 #### [place] [address] [address] CHEST AND LATERALon 11-17-19 19 CHEST AND LATERAL [facility] Department of Radiology [address] [place] [id number] Patient Name: KYLE POWELL : 1955 Sex: F Age: Race: White Pt. Location: [address] [place] [address] Patient Status: I Ordered Date: 11/17/2018 9:55:00 AM Completed Date: 11/17/2018 01:16 PM Requesting Provider: MIGUEL DEMPSEY Attending Provider: MIGUEL DEMPSEY Report Copy To: Signs & Symptoms: O2 Desaturation History: Patient history not available Comments: R/O Atelectasis Exam: CHEST AND LATERAL CHEST AND LATERAL 11/17/2018 1:16 PM EST SIGNS AND SYMPTOMS: O2 Desaturation TECHNOLOGIST COMMENTS: patient states she has blood in stool, and chest pains since yesterday. history of HTN and Diabetes. QUESTION FOR THE RADIOLOGIST: R/O Atelectasis PROTOCOL: AP(PA) and Lateral views were obtained. COMPARISON: February 02, 2017 FINDINGS: Heart and mediastinum are unremarkable. The lungs are free of infiltrates or effusions. No thoracic deformity. IMPRESSION: Normal chest. No interval change. Electronically signed by:Nathan Guan. Transcribed by: [email or web address], User Resident: Electronically Signed by: NATHAN GUAN @ 11/18/2018 07:34 AM Normal The [facility] Comment on above: Order Comment: No: D o not add to previous draw POC GLUCOSE LABon 11-17-2018 Glucose mass conc 189 mg/dL High 70-100 The [facility] Comment on above: Performed By: #### 5 0608 #### [facility] [address] [place] [address], [place] Glucose mass conc 140 mg/dL High 70-100 The [facility] Comment on above: Performed By: #### 5 0608 #### [facility] [address] [place] [address], [place] Glucose mass conc 175 mg/dL High 70-100 The [facility] Comment on above: Performed By: #### 5 0608 #### [facility] [address] [place] [address], [place] Glucose mass conc 183 mg/dL High 70-100 The [facility] Comment on above: Performed By: #### 5 0608 #### [facility] [address] [place] [address], [facility] BASIC METABOLIC PANELon 11-01 Calcium mass conc 8.2 mg/dL Low 8.6-10.3 The [facility] Comment on above: Order Comment: No: D o not add to previous draw Performed By: #### 5 0608 #### [facility] [address] [place] [address], [place] Chloride molar conc 106 mmol/L Normal 98-107 The [facility] Comment on above: Order Comment: No: D o not add to previous draw Performed By: #### 5 0608 #### [facility] [address] [place] [address], [place] CO2 molar conc 26 mmol/L Normal 21-31 The [facility] Comment on above: Order Comment: No: D o not add to previous draw Performed By: #### 5 0608 #### [facility] [address] [place] [address], [facility] Creatinine mass conc 1.03 mg/dL Normal 0.60-1.20 The [facility] Comment on above: Order Comment: No: D o not add to previous draw Performed By: #### 5 0608 #### [facility] [address] [place] [address], [place] GFR/1.73 sq M predicted among blacks MDRD vol rate/area (S/P/Bld) mL/min/{1.73_m2} Normal >60 The [facility] Comment on above: Order Comment: No: D o not add to previous draw Performed By: #### 5 0608 #### [facility] [address] [place] [address], [place] GFR/1.73 sq M predicted among non-blacks MDRD vol rate/area (S/P/Bld) 54 ml/min/1.73sq m Abnormal >60 The [facility] Comment on above: Order Comment: No: D o not add to previous draw Performed By: #### 5 0608 #### [facility] [address] [place] [address], [facility] Glucose mass conc 161 mg/dL High 70-100 The [facility] Comment on above: Order Comment: No: D o not add to previous draw Performed By: #### 5 0608 #### [facility] [address] [place] [address], [facility] Potassium molar conc 4.4 mmol/L Normal 3.5-5.1 The [facility] Comment on above: Order Comment: No: D o not add to previous draw Performed By: #### 5 0608 #### [facility] [address] [place] [address], [facility] Sodium molar conc 137 mmol/L Normal 136-145 The [facility] Comment on above: Order Comment: No: D o not add to previous draw Performed By: #### 5 0608 #### [facility] [address] [place] [address], [facility] Urea nitrogen mass conc 11 mg/dL Normal 7-25 The [facility] Comment on above: Order Comment: No: D o not add to previous draw Performed By: #### 5 0608 #### [facility] [address] [place] [address], [facility] Calcium mass conc 8.3 mg/dL Low 8.6-10.3 The [facility] Comment on above: Order Comment: No: D o not add to previous draw Performed By: #### 5 0608 #### [facility] [address] [place] [address], [place] Chloride molar conc 108 mmol/L High 98-107 The [facility] Comment on above: Order Comment: No: D o not add to previous draw Performed By: #### 5 0608 #### [facility] [address] [place] [address], [place] CO2 molar conc 25 mmol/L Normal 21-31 The [facility] Comment on above: Order Comment: No: D o not add to previous draw Performed By: #### 5 0608 #### [facility] [address] [place] [address], [place] Creatinine mass conc 0.97 mg/dL Normal 0.60-1.20 The [facility] Comment on above: Order Comment: No: D o not add to previous draw Performed By: #### 5 0608 #### [facility] [address] [place] [address], [facility] GFR/1.73 sq M predicted among non-blacks MDRD vol rate/area (S/P/Bld) 58 ml/min/1.73sq m Abnormal >60 The [facility] Comment on above: Order Comment: No: D o not add to previous draw Performed By: #### 5 0608 #### [facility] [address] [place] [address], [place] Glucose mass conc 116 mg/dL High 70-100 The [facility] Comment on above: Order Comment: No: D o not add to previous draw Performed By: #### 5 0608 #### [facility] [address] [place] [address], [place] Potassium molar conc 4.0 mmol/L Normal 3.5-5.1 [facility] Comment on above: Order Comment: No: D o not add to previous draw Performed By: #### 5 0608 #### [facility] [address] [place] [address], [place] Sodium molar conc 140 mmol/L Normal 136-145 The [facility] Comment on above: Order Comment: No: D o not add to previous draw Performed By: #### 5 0608 #### [facility] [address] [place] [address], [place] Urea nitrogen mass conc 9 mg/dL Normal 7-25 The [facility] Comment on above: Order Comment: No: D o not add to previous draw Performed By: #### 5 0608 #### [facility] [address] [place] [address], [facility] CBC COMPLETE BLOOD COUNTon 0 11-16-2018 Erythrocyte distribution width Ratio (RBC) 14.4 % Normal 11.5-15.0 [facility] Comment on above: Order Comment: No: D o not add to previous draw Performed By: #### 5 0608 #### [facility] [address] [place], [place] [address] Hematocrit Volume Fraction (Bld) 24.9 % Low 36.0-45.0 [facility] Comment on above: Order Comment: No: D o not add to previous draw Performed By: #### 5 0608 #### [facility] [address] [place] [address], [facility] Hemoglobin mass conc (Bld) 7.8 g/dL Low 12.0-15.0 [facility] Comment on above: Order Comment: No: D o not add to previous draw Performed By: #### 5 0608 #### [facility] [address] [place] [address], [facility] MCH Entitic mass (RBC) 30.8 pg Normal 27.0-33.0 [facility] Comment on above: Order Comment: No: D o not add to previous draw Performed By: #### 5 0608 #### [facility] [address] [place] [address], [facility] MCHC mass conc (RBC) 31.3 g/dL Low 32.0-35.0 [facility] Comment on above: Order Comment: No: D o not add to previous draw Performed By: #### 5 0608 #### [facility] [address] [place] [address], [facility] MCV Entitic volume (RBC) 98.4 fL High 82.0-98.0 [facility] Comment on above: Order Comment: No: D o not add to previous draw Performed By: #### 5 0608 #### [facility] [address] [place] [address], [facility] Nucleated RBC/100 WBC Ratio (Bld) 0 % Normal 0-0 [facility] Comment on above: Order Comment: No: D o not add to previous draw Performed By: #### 5 0608 #### [facility] [address] [place] [address], [facility] PLAT CNT 302 10*3/uL Normal 150-400 [facility] Comment on above: Order Comment: No: D o not add to previous draw Performed By: #### 5 0608 #### [facility] [address] [place] [address], [facility] RBC #/vol (Bld) 2.53 10*6/uL Low 3.80-5.00 [facility] Comment on above: Order Comment: No: D o not add to previous draw Performed By: #### 5 0608 #### [facility] [address] [facility] WBC #/vol (Bld) 7.31 10*3/uL Normal 4.00-10.60 [facility] Comment on above: Order Comment: No: D o not add to previous draw Performed By: #### 5 0608 #### [facility] [address] [facility]. [address] Erythrocyte distribution width Ratio (RBC) 14.6 % Normal 11.5-15.0 [facility] Comment on above: Order Comment: No: D o not add to previous draw Performed By: #### 5 0608 #### [facility] [address] [place] [address], [facility] Hemoglobin mass conc (Bld) 7.6 g/dL Low 12.0-15.0 [facility] Comment on above: Order Comment: No: D o not add to previous draw Performed By: #### 5 0608 #### [facility] [address] [place] [address], [facility] MCH Entitic mass (RBC) 30.2 pg Normal 27.0-33.0 [facility] Comment on above: Order Comment: No: D o not add to previous draw Performed By: #### 5 0608 #### [facility] [address] [place] [address], [facility] MCHC mass conc (RBC) 30.5 g/dL Low 32.0-35.0 [facility] Comment on above: Order Comment: No: D o not add to previous draw Performed By: #### 5 0608 #### [facility] [address] [place] [address], [facility] MCV Entitic volume (RBC) 98.8 fL High 82.0-98.0 [facility] Comment on above: Order Comment: No: D o not add to previous draw Performed By: #### 5 0608 #### [facility] [address] [place] [address], [facility] PLAT CNT 317 10*3/uL Normal 150-400 [facility] Comment on above: Order Comment: No: D o not add to previous draw Performed By: #### 5 0608 #### [facility] [address] [place] [address], [facility] RBC #/vol (Bld) 2.52 10*6/uL Low 3.80-5.00 [facility] Comment on above: Order Comment: No: D o not add to previous draw Performed By: #### 5 0608 #### [facility] [address] [place] [address], [facility] WBC #/vol (Bld) 7.29 10*3/uL Normal 4.00-10.60 [facility] Comment on above: Order Comment: No: D o not add to previous draw Performed By: #### 5 0608 #### [facility] [address] [place] [address], [facility] HEMATOCRITon 11-16-2018 Hematocrit Volume Fraction (Bld) 25.4 % Low 36.0-45.0 [facility] Comment on above: Order Comment: No: D o not add to previous draw Performed By: #### 5 0608 #### [facility] [address] [place] [address], [facility] HEMOGLOBINon 11-16-2018 Hemoglobin mass conc (Bld) 7.9 g/dL Low 12.0-15.0 [facility] Comment on above: Order Comment: No: D o not add to previous draw Performed By: #### 5 0608 #### [facility] [address] [place] [address], [facility] POC GLUCOSE LABon 11-16-2018 Glucose mass conc 177 mg/dL High 70-100 [facility] Comment on above: Performed By: #### 5 0608 #### [facility] [address] [place] [address], [facility] Glucose mass conc 155 mg/dL High 70-100 [facility] Comment on above: Performed By: #### 5 0608 #### [facility] [address] [place] [address], [facility] Glucose mass conc 170 mg/dL High 70-100 [facility] Comment on above: Performed By: #### 5 0608 #### [facility] [address] [place] [address], [facility] Glucose mass conc 140 mg/dL High 70-100 [facility] Comment on above: Performed By: #### 5 0608 #### [facility] [address] [place] [address], [facility] BASIC METABOLIC PANELon 11-01 Calcium mass conc 8.4 mg/dL Low 8.6-10.3 [facility] Comment on above: Order Comment: Unkno wn Performed By: #### 8 [id number] #### [facility] [address] [place] [address], [place] Chloride molar conc 110 mmol/L High 98-107 [facility] Comment on above: Order Comment: Unkno wn Performed By: #### 8 [id number] #### [facility] [address] [place] [address], [place] CO2 molar conc 22 mmol/L Normal 21-31 [facility] Comment on above: Order Comment: Unkno wn Performed By: #### 8 [id number] #### [facility] [address] [place] [address], [place] Creatinine mass conc 1.02 mg/dL Normal 0.60-1.20 [facility] Comment on above: Order Comment: Unkno wn Performed By: #### 8 [id number] #### [facility] [address] [place] [address], [place] GFR/1.73 sq M predicted among blacks MDRD vol rate/area (S/P/Bld) mL/min/{1.73_m2} Normal >60 [facility] Comment on above: Order Comment: Unkno wn Performed By: #### 8 5499 #### [facility] [address] [place] [address], [place] GFR/1.73 sq M predicted among non-blacks MDRD vol rate/area (S/P/Bld) 55 ml/min/1.73sq m Abnormal >60 [facility] Comment on above: Order Comment: Unkno wn Performed By: #### 8 [id number] #### [facility] [address] [place] [address], [place] Glucose mass conc 126 mg/dL High 70-100 [facility] Comment on above: Order Comment: Unkno wn Performed By: #### 8 [id number] #### [facility] [address] [place] [address], [place] Potassium molar conc 3.9 mmol/L Normal 3.5-5.1 [facility] Comment on above: Order Comment: Unkno wn Performed By: #### 8 [id number] #### [facility] [address] [facility] [address] Sodium molar conc 141 mmol/L Normal 136-145 [facility] Comment on above: Order Comment: Unkno wn Performed By: #### 8 [id number] #### [facility] [address] Urea nitrogen mass conc 13 mg/dL Normal 7-25 [facility] Comment on above: Order Comment: Unkno wn Performed By: #### 8 [id number] #### [facility] [address] [facility] CBC W/DIFFon 11-15-2018 ABS BASOPHILS 0.0 10*3/uL Normal 0.0-0.2 [facility] Comment on above: Order Comment: Unkno wn Performed By: #### 8 [id number] #### [facility] [address] [facility] ABS IMM GRANS 0.1 10*3/uL Normal 0.0-0.2 [facility] Comment on above: Order Comment: Unkno wn Performed By: #### 8 [id number] #### [facility] [address] [facility] ABS NEUTROPHILS 3.4 10*3/uL Normal 1.6-7.6 [facility] Comment on above: Order Comment: Unkno wn Performed By: #### 8 [id number] #### [facility] [address] [facility] Basophils #/vol (Bld) 0.4 % Normal 0.0-1.0 [facility] Comment on above: Order Comment: Unkno wn Performed By: #### 8 [id number] #### [facility] [address] [facility] Eosinophils #/vol (Bld) 0.2 10*3/uL Normal 0.0-0.5 [facility] Comment on above: Order Comment: Unkno wn Performed By: #### 8 [id number] #### [facility] [address] Eosinophils/100 WBC (Bld) 3.4 % Normal 0.0-6.0 [facility] Comment on above: Order Comment: Unkno wn Performed By: #### 8 [id number] #### [facility] [address] Erythrocyte distribution width Ratio (RBC) 14.6 % Normal 11.5-15.0 [facility] Comment on above: Order Comment: Unkno wn Performed By: #### 8 [id number] #### [facility] [address] Hematocrit Volume Fraction (Bld) 27.5 % Low 36.0-45.0 [facility] Comment on above: Order Comment: Unkno wn Performed By: #### 8 [id number] #### [facility] [address] Hemoglobin mass conc (Bld) 8.5 g/dL Low 12.0-15.0 [facility] Comment on above: Order Comment: Unkno wn Performed By: #### 8 [id number] #### [facility] [address] [facility] IMMATURE GRANS 0.8 % Normal 0.0-1.0 [facility] Comment on above: Order Comment: Unkno wn Performed By: #### 8 [id number] #### [facility] [address] [facility] [address] Lymphocytes #/vol (Bld) 2.8 10*3/uL Normal 1.2-4.0 [facility] Comment on above: Order Comment: Unkno wn Performed By: #### 8 [id number] #### [facility] [address] [place] [address], [facility] Lymphocytes/100 WBC (Bld) 39.6 % Normal 20.0-45.0 [facility] Comment on above: Order Comment: Unkno wn Performed By: #### 8 [id number] #### [facility] [address] [place] [address], [facility] MCH Entitic mass (RBC) 30.8 pg Normal 27.0-33.0 [facility] Comment on above: Order Comment: Unkno wn Performed By: #### 8 [id number] #### [facility] [address] [place] [address], [facility] MCHC mass conc (RBC) 30.9 g/dL Low 32.0-35.0 [facility] Comment on above: Order Comment: Unkno wn Performed By: #### 8 [id number] #### [facility] [address] [place] [address], [facility] MCV Entitic volume (RBC) 99.6 fL High 82.0-98.0 [facility] Comment on above: Order Comment: Unkno wn Performed By: #### 8 [id number] #### [facility] [address] [place] [address], [facility] Monocytes #/vol (Bld) 0.5 10*3/uL Normal 0.1-1.0 Th e [facility] Comment on above: Order Comment: Unkno wn Performed By: #### 8 [id number] #### [facility] [address] [place] [id number], [facility] MONOS 7.6 % Normal 5.0-12.0 [facility] Comment on above: Order Comment: Unkno wn Performed By: #### 8 [id number] #### [facility] [address] [place] [id number], [facility] Neutrophils/100 WBC (Bld) 48.2 % Normal 40.0-72.0 [facility] Comment on above: Order Comment: Unkno wn Performed By: #### 8 [id number] #### [facility] [address] [facility]. [address] Nucleated RBC/100 WBC Ratio (Bld) 0 % Normal 0-0 [facility] Comment on above: Order Comment: Unkno wn Performed By: #### 8 [id number] #### [facility] [address] [place] [address], [facility] PLAT CNT 329 10*3/uL Normal 150-400 [facility] Comment on above: Order Comment: Unkno wn Performed By: #### 8 [id number] #### [facility] [address] RBC #/vol (Bld) 2.76 10*6/uL Low 3.80-5.00 [facility] Comment on above: Order Comment: Unkno wn Performed By: #### 8 [id number] #### [facility] [address] [facility]. [address] WBC #/vol (Bld) 7.09 10*3/uL Normal 4.00-10.60 [facility] Comment on above: Order Comment: Unkno wn Performed By: #### 8 [id number] #### [facility] [address] [facility]. [address] HEMOGLOBINon 11-15-2018 Hemoglobin mass conc (Bld) 8.5 g/dL Low 12.0-15.0 [facility] Comment on above: Order Comment: No: D o not add to previous draw Performed By: #### 8 [id number] #### [facility] [address] MAGNESIUM BLOODon 11-15-2018 Magnesium mass conc 2.0 mg/dL Normal 1.9-2.7 [facility] Comment on above: Order Comment: Unkno wn Performed By: #### 8 [id number] #### [facility] [address] [place] [address], [facility] POC GLUCOSE LABon 11-15-2018 Glucose mass conc 168 mg/dL High 70-100 [facility] Comment on above: Performed By: #### 5 0608 #### [facility] [address] [place] [address], [place] Glucose mass conc 117 mg/dL High 70-100 [facility] Comment on above: Performed By: #### 5 0608 #### [facility] [address] [place] [address], [place] Glucose mass conc 151 mg/dL High 70-100 [facility] Comment on above: Performed By: #### 8 [id number] #### [facility] [address] [place] [address], [place] Glucose mass conc 143 mg/dL High 70-100 [facility] Comment on above: Performed By: #### 8 [id number] #### [facility] [address] [place] [address], [facility] PROTHROMBIN TIMEon 9 INR Coag RelTime (PPP) 1.18 {INR} High 0.91-1.16 [facility] Comment on above: Order Comment: Unkno wn Result Comment: ACCC P RECOMMENDED INR FOR WARFARIN THERAPY -------- ------- CONDITION INR PROPHYLAXIS OF VENOUS THROMBOSIS 2-3 (HIGH-RISK SURGERY) TREATMENT OF VENOUS THROMBOSIS 2-3 TREATMENT OF PULMONARY EMBOLISM 2-3 PREVENTION OF SYSTEMIC EMBOLISM: 2-3 ACUTE MYOCARDIAL INFARCTION TISSUE HEART VALVES VALVULAR HEART DISEASE ATRIAL FIBRILLATION RECURRENT SYSTEMIC EMBOLISM MECHANICAL HEART VALVE 2.5-3.5 FROM: ORAL ANTICOAGULANTS. MECHANISM OF ACTION, CLINICAL EFFECTIVENESS, AND OPTIMAL THERAPEUTIC RANGE. CHEST 1995;108:231S-246S. Performed By: #### 8 [id number] #### [facility] [address] Prothrombin time (PT) Coag time (PPP) 15.0 s High 12.3-14.8 [facility] Comment on above: Order Comment: Unkno wn Result Comment: ALL RESULTS MUST BE INTERPRETED WITH RESPECT TO BLOOD DRAWING ARTIFACT OR DILUTION ERROR OF ANTICOAGULANT AT THE TIME OF SAMPLING. Performed By: #### 8 [id number] #### [facility] [address] BASIC METABOLIC PANELon 11-01 Calcium mass conc 8.5 mg/dL Low 8.6-10.3 [facility] Comment on above: Performed By: #### 7 0066 #### [facility] [address] [facility] Chloride molar conc 108 mmol/L High 98-107 [facility] Comment on above: Performed By: #### 7 0066 #### [facility] [address] CO2 molar conc 23 mmol/L Normal 21-31 [facility] Comment on above: Performed By: #### 7 0066 #### [facility] [address] [facility]. [address] Creatinine mass conc 0.84 mg/dL Normal 0.60-1.20 [facility] Comment on above: Performed By: #### 7 0066 #### [facility] [address] [place] [address], [facility] GFR/1.73 sq M predicted among blacks MDRD vol rate/area (S/P/Bld) mL/min/{1.73_m2} Normal >60 [facility] Comment on above: Performed By: #### 7 0066 #### [facility] [address] [place] [address], [facility] GFR/1.73 sq M predicted among non-blacks MDRD vol rate/area (S/P/Bld) mL/min/{1.73_m2} Normal >60 [facility] Comment on above: Performed By: #### 7 0066 #### [facility] [address] [place] [address], [facility] Glucose mass conc 168 mg/dL High 70-100 [facility] Comment on above: Performed By: #### 7 0066 #### [facility] [address] [place] [address], [facility] Potassium molar conc 3.8 mmol/L Normal 3.5-5.1 [facility] Comment on above: Performed By: #### 7 0066 #### [facility] [address] [place] [address], [facility] Sodium molar conc 140 mmol/L Normal 136-145 [facility] Comment on above: Performed By: #### 7 0066 #### [facility] [address] [place] [address], [facility] Urea nitrogen mass conc 15 mg/dL Normal 7-25 [facility] Comment on above: Performed By: #### 7 0066 #### [facility] [address] [place] [address], [facility] CBC COMPLETE BLOOD COUNTon 0 - Erythrocyte distribution width Ratio (RBC) 14.0 % Normal 11.5-15.0 [facility] Comment on above: Order Comment: No: D o not add to previous draw Performed By: #### 4 1000, 60579, 20898, 64184 #### [facility] [address] [place] [address], [facility] Hematocrit Volume Fraction (Bld) 26.1 % Low 36.0-45.0 [facility] Comment on above: Order Comment: No: D o not add to previous draw Performed By: #### 4 1000, 00281, 95176, 53395 #### [facility] [address] [place] [address], [facility] Hemoglobin mass conc (Bld) 8.4 g/dL Low 12.0-15.0 [facility] Comment on above: Order Comment: No: D o not add to previous draw Performed By: #### 4 1000, 74424, 41286, 39605 #### [facility] [address] [place] [address], [facility] MCH Entitic mass (RBC) 31.1 pg Normal 27.0-33.0 [facility] Comment on above: Order Comment: No: D o not add to previous draw Performed By: #### 4 1000, 67241, 75543, 97954 #### [facility] [address] MCHC mass conc (RBC) 32.2 g/dL Normal 32.0-35.0 [facility] Comment on above: Order Comment: No: D o not add to previous draw Performed By: #### 4 1000, 46056, 79354, 58416 #### [facility] [address] [place] [address], [facility] MCV Entitic volume (RBC) 96.7 fL Normal 82.0-98.0 [facility] Comment on above: Order Comment: No: D o not add to previous draw Performed By: #### 4 1000, 12492, 02075, 58144 #### [facility] [address] [place] [address], [facility] Nucleated RBC/100 WBC Ratio (Bld) 0 % Normal 0-0 [facility] Comment on above: Order Comment: No: D o not add to previous draw Performed By: #### 4 1000, 99154, 20892, 84260 #### [facility] [address] [place] [address], [facility] PLAT CNT 310 10*3/uL Normal 150-400 [facility] Comment on above: Order Comment: No: D o not add to previous draw Performed By: #### 4 1000, 85415, 49063, 08789 #### [facility] [address] [place] [address], [facility] RBC #/vol (Bld) 2.70 10*6/uL Low 3.80-5.00 [facility] Comment on above: Order Comment: No: D o not add to previous draw Performed By: #### 4 1000, 62260, 75309, 26031 #### [facility] [address] [place] [address], [facility] WBC #/vol (Bld) 6.38 10*3/uL Normal 4.00-10.60 [facility] Comment on above: Order Comment: No: D o not add to previous draw Performed By: #### 4 1000, 74718, 53582, 77602 #### [facility] [address] BRAIN WO CONTRASTon 11-14 CT BRAIN WO CONTRAST [facility] Department of Radiology [address] [place] [id number] Patient Name: KYLE POWELL : 1955 Sex: F Age: Race: White Pt. Location: [id number] Patient Status: O Ordered Date: 11/14/2018 3:45:00 PM Completed Date: 11/14/2018 05:48 PM Requesting Provider: MIGUEL DEMPSEY Attending Provider: MIGUEL DEMPSEY Report Copy To: Signs & Symptoms: Other History: Patient history not available Comments: R/O CVA, slurred speech , NO Exam: CT BRAIN WO CONTRAST CT BRAIN WO CONTRAST 11/14/2018 5:48 PM EST SIGNS AND SYMPTOMS: Other TECHNOLOGIST COMMENTS: dizziness upon standing and numbness in bilateral hands QUESTION FOR THE RADIOLOGIST: R/O CVA, slurred speech , NO PROTOCOL: Axial CT images of the head were obtained without IV contrast. TECHNIQUE:Multi-detector CT axial slices of the brain were obtained without IV contrast. Helical,sagittal, coronal, and 3-D reconstructions were performed and viewed on a separate workstation. Appropriate CT dose lowering techniques were utilized. COMPARISON: CTA head April 28, 2018. FINDINGS: There is age-related cortical atrophy. Redemonstration of old lacunar infarcts in the bilateral basal ganglia. Periventricular hypoattenuation more pronounced in the left parietal lobe. There is no shift of the midline structures, acute intracranial bleeding, mass effects, or evidence of acute ischemia. The ventricular system is normal in size. The brainstem and the cerebellum are unremarkable. The visualized intraorbital contents, the visualized paranasal sinuses, and the infratemporal soft tissues show no acute abnormality. The osseous structures in the skull base and the calvarium show no abnormality. IMPRESSION: 1. No acute intracranial pathology. 2. Old lacunar infarcts in the basal ganglia. 3. Chronic microvascular ischemic changes, most prominent in the left parietal lobe. Approved by:Chrissy Sandoval on 11/14/2018 6:46 PM EST. I, Cornelius Bennett, have reviewed the images and report and concur with these findings. Electronically signed by:Cornelius Bennett. Transcribed by: [email or web address], User Resident: CHRISSY SANDOVAL Electronically Signed by: CORNELIUS BENNETT @ 11/15/2018 04:27 PM I personally read this/these film(s) with this resident Normal [facility] Comment on above: Order Comment: No: D o not add to previous draw FOLATE SERUMon 11-14-2018 Folate mass conc 25.00 ng/mL Normal 6.60-1000.0 0 [facility] Comment on above: Order Comment: No: D o not add to previous draw Result Comment: Norm al range reflects World Health Organization International Standard Performed By: #### 7 0066 #### [facility] [address] HAPTOGLOBINon 11-14-2018 HAPTOGLOBIN 7 mg/dL Low 26-164 [facility] Comment on above: Order Comment: No: D o not add to previous draw Performed By: #### 7 0066 #### [facility] [address] [place] [address], [facility] HEMOGLOBINon 11-14-2018 Hemoglobin mass conc (Bld) 8.1 g/dL Low 12.0-15.0 [facility] Comment on above: Order Comment: No: D o not add to previous draw Performed By: #### 7 0066 #### [facility] [address] [facility]. [address] History and Physicalon 11-14 History and Physical MR#: [id number] [facility] Pt. Name: Kyle Powell Admitted: 11/13/2018 Date of : 1955 Attending Physician: Basim Tripathi MD Room #: [id number] Discharge Date: HISTORY AND PHYSICAL CHIEF COMPLAINT: Multiple episodes of coffee-grounds emesis that lasted for 3 days, multiple episodes of melena for the same duration, which have now improved. HISTORY OF PRESENTING ILLNESS: The patient is a pleasant 63-year-old female with past medical history significant for CAD, status post PCI, recent admission in August 2018 for in-stent thrombosis with status post PCI, hypertension, hyperlipidemia, type 2 diabetes mellitus, insulin dependent, who presented to the outside ER from my her Primary's office for further evaluation of multiple episodes of coffee-grounds emesis and melena that lasted for 3 days last week, which had now improved. She stated that she started vomiting coffee-ground fluid on Sunday, and later, the same day, she started having black stools, which lasted until the [place] afternoon. Since then, she had not had any episodes of coffee-grounds emesis, and today in the ER, she had a bowel movement with dark green stool with no blood. Over the past 3 days due to her symptoms, she had not taken oral diet, but claims had been taking her medications. Lately, she had been also feeling exertional fatigue and dizziness over the past 3 days. Her peripheral neuropathy had been bothering her recently, and had been taking 2 g of Tylenol to help with the pain. Since discharge, she has not had any exertional chest pain, shortness of breath, or palpitations. PHYSICAL EXAMINATION: VITAL SIGNS: In the ER, her vital signs are noted to be blood pressure 136/74 mmHg, pulse rate 72 per minute, respiratory rate 16 per minute, temperature 98. Currently, SpO2 99% on room air. LABORATORY DATA: Her basic labs are notable for CBC with WBC 7.5, hemoglobin 8.5 (her recent known baseline is about 11-12 g/dL), platelet 285. CMP: Essentially unremarkable, EKG revealed sinus rhythm with no acute ST-T changes, INR 0.98, troponin upper limit of the normal range. She is admitted here for further management of her episodes of GI bleed and blood-loss anemia. Currently, hemodynamically stable. PAST MEDICAL HISTORY: 1. CAD, status post PCI. 2. History of in-stent thrombosis in August 2018. 3. History of CVA. 4. Type 2 diabetes mellitus, insulin dependent. 5. Hypertension. 6. Dyslipidemia. PAST SURGICAL HISTORY: Cardiac cath, colonoscopy. SOCIAL HISTORY: She is a never smoker, does not use alcohol or illegal drugs. FAMILY HISTORY: Noncontributory. ALLERGIES: She has no known drug allergies. CURRENT MEDICATIONS: 1. Aspirin 81 mg daily. 2. Plavix 75 mg daily. 3. Coreg 25 mg b.i.d. 4. Lipitor 80 mg at bedtime. 5. Norvasc 10 mg daily. 6. Lisinopril 40 mg daily. 7. Metformin 500 mg daily. 8. NovoLog 10 units with meals plus sliding scale. 9. Toujeo 10 units at bedtime. REVIEW OF SYSTEMS: CONSTITUTIONAL: No history of weight change or change in appetite. No fever, chills, or night sweats. HEAD/NECK: No headache or facial pain, no neck pain or stiffness. EYES: No change in vision or photophobia, no recent eye infection. EARS: No loss of hearing, tinnitus, vertigo, or recent ear infection. NOSE: No recent upper respiratory infection, change in ability of smell, postnasal drip, or epistaxis. MOUTH/THROAT: No change in taste, sore throat, difficulty swallowing, or voice change. CARDIOVASCULAR: No chest pain/jaw pain, no palpitations or shortness of breath, PND/orthopnea. Positive for exertional dizziness. RESPIRATORY: No history of cough or sputum production. No history of asthma wheezing, no hemoptysis, no history of previous pneumonia. GASTROINTESTINAL: Positive for coffee-grounds emesis and episodes of melena with dark rectal bleeding, which has now resolved, no history of heartburn or peptic ulcer disease, no abdominal cramps. GENITOURINARY: No change in bowel or bladder habits, no urinary frequency or urgency or incontinence or hematuria. SKIN: No change in color of the skin, no rash, no easy bleeding or bruises. MUSCULOSKELETAL: No joint pain/stiffness, swelling, positive for peripheral neuropathy. NEUROLOGY: No history of headache, paralysis, numbness or tingling of extremities, no change in sensation or gait instability. PSYCHIATRIC: No history of disturbances in sleep, no history of mood disorder, depression, or anxiety. HEMATOLOGIC/LYMPHATIC: No history of bleeding or bruising tendencies, enlarged glands, or lymphedema. PHYSICAL EXAMINATION: VITAL SIGNS: Blood pressure 140/60 mmHg, pulse rate 68 per minute, respiratory rate 20 per minute, SpO2 of 96% on room air, temperature 97.3. GENERAL APPEARANCE: She is a pleasant, moderately obese female, has no acute distress. HEAD: Normocephalic/atraumatic. EYES: Bilateral pupils are 2.5 mm equally reacting to light, extraocular movements are intact bilaterally, no conjunctival pallor or scleral icterus noted. NECK: Trachea appears to be in midline, no lymphadenopathy, JVD not visible. CHEST: Chest wall appears symmetric, no rash, no visible pulsations in the chest wall equally moves with respiration. HEART: S1, S2 heard, regular in rate and rhythm, no S3/S4, no murmurs, rubs, or gallops. LUNGS: Clear to auscultation on both anterior and posterior lung martin. ABDOMEN: Soft, nontender, bowel sounds active, no masses palpable. BACK: No curve, curvature normal. No kyphoscoliosis, no CVA tenderness. EXTREMITIES: All 4 extremities appear normal. No pedal edema, no rash or skin discoloration. NEUROLOGY: She is alert and oriented x3, speech normal, moves all 4 extremities, cranial nerves II to XII intact, gait not assessed. PERIPHERAL PULSES: 2+ bilateral radial, 2+ dorsalis pedis/posterior tibial. DIAGNOSTIC TEST: Labs from outside ER were reviewed and noted in above HPI next heading. ASSESSMENT: The patient is a 63-year-old female with known history of CAD with recent in-stent thrombosis, currently on aspirin and Plavix, presented to the ED from Primary's office for further workup for episodes of coffee-grounds emesis and melena for 3 days, which had now improved. Her initial workup revealed hemoglobin 8 g/dL, less than her baseline of 12 g/dL and her vital signs are stable. PROBLEM LIST: 1. Coffee-grounds emesis/melena. 2. Blood loss anemia. 3. Coronary artery disease status post PCI. 4. Hypertension/hyperlipidem ia. 5. History of cerebrovascular accident. 6. Type 2 diabetes mellitus, insulin dependent. 7. Severe peripheral neuropathy. PLAN: She is currently hemodynamically stable. Her symptoms have improved, had soft dark green bowel movement while she was in the ER. Her hemoglobin is 8 g/dL with known recent baseline of 12 g/dL. Keep on clear liquid diet. Start Protonix 40 mg oral b.i.d. Continue aspirin, hold Plavix. Consult GI. She had a colonoscopy, and EGD about 2 years back, which are unremarkable. Monitor for bleeding. * type 2 diabetes mellitus. We will hold her insulins since she is on clear liquid diet, resume Lantus at a lower dose of 10 units at bedtime with sliding scale, Accu-Cheks before meals and at bedtime. * Coronary artery disease, status post PCI/hypertension/hyperlip idemia - Resume home medications, aspirin, Lipitor, Coreg, lisinopril, hold Plavix. - Continue telemetry monitoring. * Her troponin was high normal in the ER, repeat troponin in a.m. * Currently, she is asymptomatic. * DVT prophylaxis contraindicated secondary to suspected acute gastrointestinal bleed. Plan of care is discussed with the patient, RN. Electronically Signed by: Basim Tripathi MD 11/17/2018 07:35 A Basim Tripathi MD Date Dict: 11/14/2018/01:35 Elisabeth/Basim Tripathi MD Date Trans: 11/14/2018 02:17 A/mmo [id number] Normal [facility] LDH BLOODon 11-14-2018 LDH 99 Units/L Low 140-271 [facility] Comment on above: Order Comment: No: D o not add to previous draw Performed By: #### 7 0066 #### [facility] [address] [place] [address], [facility] POC GLUCOSE LABon 11-14-2018 Glucose mass conc 128 mg/dL High 70-100 [facility] Comment on above: Performed By: #### 8 5499 #### [facility] [address] [place] [address], [place] Glucose mass conc 128 mg/dL High 70-100 [facility] Comment on above: Performed By: #### 8 5499 #### [facility] [address] [place] [address], [place] Glucose mass conc 159 mg/dL High 70-100 [facility] Comment on above: Performed By: #### 7 0066 #### [facility] [address] [place] [address], [place] Glucose mass conc 213 mg/dL High 70-100 [facility] Comment on above: Performed By: #### 4 1000, 85958, 77874, 81176 #### [facility] [address] [place] [address], [place] Glucose mass conc 133 mg/dL High 70-100 [facility] Comment on above: Performed By: #### 4 1000, 55725, 70309, 27350 #### [facility] [address] Glucose mass conc 111 mg/dL High 70-100 [facility] Comment on above: Performed By: #### 4 1000, 69967, 04995, 20655 #### [facility] [address] [place] [address], [facility] PROTHROMBIN TIMEon 9 INR Coag RelTime (PPP) 1.17 {INR} High 0.91-1.16 [facility] Comment on above: Order Comment: No: D o not add to previous draw Result Comment: ACCC P RECOMMENDED INR FOR WARFARIN THERAPY -------- ------- CONDITION INR PROPHYLAXIS OF VENOUS THROMBOSIS 2-3 (HIGH-RISK SURGERY) TREATMENT OF VENOUS THROMBOSIS 2-3 TREATMENT OF PULMONARY EMBOLISM 2-3 PREVENTION OF SYSTEMIC EMBOLISM: 2-3 ACUTE MYOCARDIAL INFARCTION TISSUE HEART VALVES VALVULAR HEART DISEASE ATRIAL FIBRILLATION RECURRENT SYSTEMIC EMBOLISM MECHANICAL HEART VALVE 2.5-3.5 FROM: ORAL ANTICOAGULANTS. MECHANISM OF ACTION, CLINICAL EFFECTIVENESS, AND OPTIMAL THERAPEUTIC RANGE. CHEST 1995;108:231S-246S. Performed By: #### 7 0066 #### [facility] [address] Prothrombin time (PT) Coag time (PPP) 14.9 s High 12.3-14.8 [facility] Comment on above: Order Comment: No: D o not add to previous draw Result Comment: ALL RESULTS MUST BE INTERPRETED WITH RESPECT TO BLOOD DRAWING ARTIFACT OR DILUTION ERROR OF ANTICOAGULANT AT THE TIME OF SAMPLING. Performed By: #### 7 0066 #### [facility] [address] RETICULOCYTE PANELon 019 ABSOLUTE RETICULOCYTE 0.1396 10*6/uL High 0.02 50-0.10 00 [facility] Comment on above: Performed By: #### 7 0066 #### [facility] [address] [facility] IMMATURE RETICULOCYTE FRACTION 35.3 % High 2.0-16.0 [facility] Comment on above: Performed By: #### 7 0066 #### [facility] [address] RETIC COUNT 5.17 % High 0.50-1.80 [facility] Comment on above: Performed By: #### 7 0066 #### [facility] [address] RETICULOCYTE HEMOGLOBIN 36.5 pg High 28.0-36.0 [facility] Comment on above: Performed By: #### 7 0066 #### [facility] [address] TROPONIN-Ion 11-14-2018 Troponin I.cardiac mass conc 0.12 ng/mL Critically high 0.00-0.04 [facility] Comment on above: Order Comment: No: D o not add to previous draw Result Comment: M-AK EVIOUS CRITICAL RESULT REFERENCE RANGES: 0.00 - 0.04 ng/ml NORMAL 0.05 - 0.50 ng/ml INDETERMINATE > 0.50 ng/ml CONSISTENT WITH AN M.I. Performed By: #### 8 5499 #### [facility] [address] Troponin I.cardiac mass conc 0.16 ng/mL Critically high 0.00-0.04 [facility] Comment on above: Result Comment: M-AK EVIOUS CRITICAL RESULT REFERENCE RANGES: 0.00 - 0.04 ng/ml NORMAL 0.05 - 0.50 ng/ml INDETERMINATE > 0.50 ng/ml CONSISTENT WITH AN M.I. Performed By: #### 7 0066 #### [facility] [address] [place] [address], [facility] Troponin I.cardiac mass conc 0.28 ng/mL Critically high 0.00-0.04 [facility] Comment on above: Order Comment: No: D o not add to previous draw Result Comment: M-AK EVIOUS CRITICAL RESULT REFERENCE RANGES: 0.00 - 0.04 ng/ml NORMAL 0.05 - 0.50 ng/ml INDETERMINATE > 0.50 ng/ml CONSISTENT WITH AN M.I. Performed By: #### 4 1000, 03387, 80075, 31720 #### [facility] [address] [place] [address], [facility] VITAMIN B12on 11-14-2018 Cobalamin (Vitamin B12) mass conc 338 pg/mL Normal 180-914 [facility] Comment on above: Order Comment: No: D o not add to previous draw Result Comment: REFE RENCE RANGES: 180-914 pg/mL Normal 145-179 pg/mL Indeterminate <145 pg/mL Deficient Performed By: #### 7 0066 #### [facility] [address] [place] [address], [facility] BASIC METABOLIC PANELon 12-0 Calcium mass conc 8.7 mg/dL Normal 8.6-10.3 [facility] Comment on above: Order Comment: No: D o not add to previous draw Performed By: #### 4 1000, 83325, 06654, 63964 #### [facility] [address] [place] [address], [facility] Chloride molar conc 109 mmol/L High 98-107 [facility] Comment on above: Order Comment: No: D o not add to previous draw Performed By: #### 4 1000, 53533, 57346, 72055 #### [facility] [address] [place] [address], [facility] CO2 molar conc 24 mmol/L Normal 21-31 [facility] Comment on above: Order Comment: No: D o not add to previous draw Performed By: #### 4 1000, 22727, 14833, 06422 #### [facility] [address] [place] [address], [facility] Creatinine mass conc 0.79 mg/dL Normal 0.60-1.20 [facility] Comment on above: Order Comment: No: D o not add to previous draw Performed By: #### 4 1000, 85603, 34555, 18261 #### [facility] [address] [place] [address], [place] GFR/1.73 sq M predicted among blacks MDRD vol rate/area (S/P/Bld) mL/min/{1.73_m2} Normal >60 [facility] Comment on above: Order Comment: No: D o not add to previous draw Performed By: #### 4 1000, 47532, 15031, 82390 #### [facility] [address] [place] [address], [facility] GFR/1.73 sq M predicted among non-blacks MDRD vol rate/area (S/P/Bld) mL/min/{1.73_m2} Normal >60 [facility] Comment on above: Order Comment: No: D o not add to previous draw Performed By: #### 4 1000, 72520, 98337, 77820 #### [facility] [address] [place] [address], [place] Glucose mass conc 128 mg/dL High 70-100 [facility] Comment on above: Order Comment: No: D o not add to previous draw Performed By: #### 4 1000, 16736, 42618, 15916 #### [facility] [address] [place] [address], [place] Potassium molar conc 4.3 mmol/L Normal 3.5-5.1 [facility] Comment on above: Order Comment: No: D o not add to previous draw Performed By: #### 4 1000, 81709, 28233, 15873 #### [facility] [address] [place] [address], [facility] Sodium molar conc 140 mmol/L Normal 136-145 [facility] Comment on above: Order Comment: No: D o not add to previous draw Performed By: #### 4 1000, 31698, 96728, 42111 #### [facility] [address] [place] [address], [facility] Urea nitrogen mass conc 23 mg/dL Normal 7-25 [facility] Comment on above: Order Comment: No: D o not add to previous draw Performed By: #### 4 1000, 73692, 75773, 67639 #### [facility] [address] [place] [address], [facility] CBC COMPLETE BLOOD COUNTon 1 11-08-2017 Erythrocyte distribution width Ratio (RBC) 12.6 % Normal 11.5-15.0 [facility] Comment on above: Order Comment: No: D o not add to previous draw Performed By: #### 4 1000, 24405, 56480, 22170 #### [facility] [address] [place] [address], [facility] Hematocrit Volume Fraction (Bld) 35.1 % Low 36.0-45.0 [facility] Comment on above: Order Comment: No: D o not add to previous draw Performed By: #### 4 1000, 25473, 54402, 02773 #### [facility] [address] [place] [address], [facility] Hemoglobin mass conc (Bld) 11.5 g/dL Low 12.0-15.0 [facility] Comment on above: Order Comment: No: D o not add to previous draw Performed By: #### 4 1000, 61641, 47474, 94978 #### [facility] [address] [place] [address], [place] MCH Entitic mass (RBC) 30.6 pg Normal 27.0-33.0 [facility] Comment on above: Order Comment: No: D o not add to previous draw Performed By: #### 4 1000, 17836, 98117, 44252 #### [facility] [address] MCHC mass conc (RBC) 32.8 g/dL Normal 32.0-35.0 [facility] Comment on above: Order Comment: No: D o not add to previous draw Performed By: #### 4 1000, 04438, 24695, 78829 #### [facility] [address] MCV Entitic volume (RBC) 93.4 fL Normal 82.0-98.0 [facility] Comment on above: Order Comment: No: D o not add to previous draw Performed By: #### 4 1000, 35674, 99126, 40208 #### [facility] [address] Nucleated RBC/100 WBC Ratio (Bld) 0 % Normal 0-0 [facility] Comment on above: Order Comment: No: D o not add to previous draw Performed By: #### 4 1000, 26981, 47243, 23329 #### [facility] [address] [place] [address], [facility] PLAT CNT 281 10*3/uL Normal 150-400 [facility] Comment on above: Order Comment: No: D o not add to previous draw Performed By: #### 4 1000, 24596, 92656, 81858 #### [facility] [address] [place] [address], [facility] RBC #/vol (Bld) 3.76 10*6/uL Low 3.80-5.00 [facility] Comment on above: Order Comment: No: D o not add to previous draw Performed By: #### 4 1000, 01838, 88057, 92401 #### [facility] [address] [place] [address], [facility] WBC #/vol (Bld) 7.49 10*3/uL Normal 4.00-10.60 [facility] Comment on above: Order Comment: No: D o not add to previous draw Performed By: #### 4 1000, 15639, 79714, 79342 #### [facility] [address] [place] [address], [facility] PHOSPHORUS BLOODon 8 Phosphate mass conc 4.1 mg/dL Normal 2.5-5.0 [facility] Comment on above: Order Comment: No: D o not add to previous draw Performed By: #### 4 1000, 39918, 79759, 31425 #### [facility] [address] [place] [address], [facility] POC GLUCOSE LABon 09-07-2018 Glucose mass conc 212 mg/dL High 70-100 [facility] Comment on above: Performed By: #### 4 1000, 74753, 35961, 67722 #### [facility] [address] [place] [address], [facility] Glucose mass conc 132 mg/dL High 70-100 [facility] Comment on above: Performed By: #### 4 1000, 09389, 09968, 07275 #### [facility] [address] APTTon 09-06-2018 aPTT Coag time (Bld) 28.1 s Normal 25.0-35.0 [facility] [facility] Comment on above: Order Comment: No: D o not add to previous draw Result Comment: ALL RESULTS MUST BE INTERPRETED WITH RESPECT TO BLOOD DRAWING ARTIFACT OR DILUTION ERROR OF ANTICOAGULANT AT THE TIME OF SAMPLING. THE APTT SHOULD NOT BE USED TO MONITOR UNFRACTIONATED HEPARIN THERAPY, THIS LABORATORY NO LONGER HAS AN ESTABLISHED THERAPEUTIC RANGE BASED ON THE APTT. IT IS RECOMMENDED THAT THE UFH - HEPARIN ASSAY (ANTI-XA ACTIVITY) BE USED FOR THIS PURPOSE. Performed By: #### 4 1000, 91635, 98230, 61290 #### [facility] [address] [place] [address], [facility] BASIC METABOLIC PANELon Calcium mass conc 9.0 mg/dL Normal 8.6-10.3 [facility] Comment on above: Order Comment: No: D o not add to previous draw Performed By: #### 4 1000, 52497, 42437, 29345 #### [facility] [address] [place] [address], [place] Chloride molar conc 104 mmol/L Normal 98-107 [facility] Comment on above: Order Comment: No: D o not add to previous draw Performed By: #### 4 1000, 82381, 98500, 86612 #### [facility] [address] [place] [address], [place] CO2 molar conc 22 mmol/L Normal 21-31 [facility] Comment on above: Order Comment: No: D o not add to previous draw Performed By: #### 4 1000, 76340, 23233, 90337 #### [facility] [address] [place] [address], [place] Creatinine mass conc 0.95 mg/dL Normal 0.60-1.20 [facility] Comment on above: Order Comment: No: D o not add to previous draw Performed By: #### 4 1000, 12236, 81816, 41094 #### [facility] [address] [place] [address], [place] GFR/1.73 sq M predicted among blacks MDRD vol rate/area (S/P/Bld) mL/min/{1.73_m2} Normal >60 [facility] Comment on above: Order Comment: No: D o not add to previous draw Performed By: #### 4 1000, 26935, 47940, 08221 #### [facility] [address] [place] [address], [place] GFR/1.73 sq M predicted among non-blacks MDRD vol rate/area (S/P/Bld) 59 ml/min/1.73sq m Abnormal >60 [facility] Comment on above: Order Comment: No: D o not add to previous draw Performed By: #### 4 1000, 65209, 96858, 54117 #### [facility] [address] [place] [address], [facility] Glucose mass conc 172 mg/dL High 70-100 [facility] Comment on above: Order Comment: No: D o not add to previous draw Performed By: #### 4 1000, 60926, 93255, 23097 #### [facility] [address] [place] [address], [facility] Potassium molar conc 4.3 mmol/L Normal 3.5-5.1 [facility] Comment on above: Order Comment: No: D o not add to previous draw Performed By: #### 4 1000, 72732, 92853, 30411 #### [facility] [address] Sodium molar conc 135 mmol/L Low 136-145 [facility] Comment on above: Order Comment: No: D o not add to previous draw Performed By: #### 4 1000, 49945, 08503, 85865 #### [facility] [address] [facility]. [address] Urea nitrogen mass conc 27 mg/dL High 7-25 [facility] Comment on above: Order Comment: No: D o not add to previous draw Performed By: #### 4 1000, 29820, 78317, 97645 #### [facility] [address] [facility]. [address] CBC W/DIFFon 09-06-2018 ABS BASOPHILS 0.0 10*3/uL Normal 0.0-0.2 [facility] Comment on above: Order Comment: No: D o not add to previous draw Performed By: #### 4 1000, 80160, 04551, 56358 #### [facility] [address] ABS IMM GRANS 0.0 10*3/uL Normal 0.0-0.2 [facility] Comment on above: Order Comment: No: D o not add to previous draw Performed By: #### 4 1000, 34863, 58400, 07195 #### [facility] [address] [place] [address], [facility] ABS NEUTROPHILS 4.3 10*3/uL Normal 1.6-7.6 [facility] Comment on above: Order Comment: No: D o not add to previous draw Performed By: #### 4 1000, 55082, 48101, 30420 #### [facility] [address] [place] [address], [facility] Basophils #/vol (Bld) 0.3 % Normal 0.0-1.0 [facility] Comment on above: Order Comment: No: D o not add to previous draw Performed By: #### 4 1000, 51479, 70511, 59444 #### [facility] [address] [place] [address], [facility] Eosinophils #/vol (Bld) 0.2 10*3/uL Normal 0.0-0.5 [facility] Comment on above: Order Comment: No: D o not add to previous draw Performed By: #### 4 1000, 10011, 59206, 92374 #### [facility] [address] [place] [address], [facility] Eosinophils/100 WBC (Bld) 2.1 % Normal 0.0-6.0 [facility] Comment on above: Order Comment: No: D o not add to previous draw Performed By: #### 4 1000, 95975, 63385, 59760 #### [facility] [address] [place] [id number], [facility] Erythrocyte distribution width Ratio (RBC) 12.7 % Normal 11.5-15.0 [facility] Comment on above: Order Comment: No: D o not add to previous draw Performed By: #### 4 1000, 54666, 88764, 39487 #### [facility] [address] Hematocrit Volume Fraction (Bld) 36.9 % Normal 36.0-45.0 [facility] Comment on above: Order Comment: No: D o not add to previous draw Performed By: #### 4 1000, 19554, 82546, 94827 #### [facility] [address] [place] [address], [facility] Hemoglobin mass conc (Bld) 12.2 g/dL Normal 12.0-15.0 [facility] Comment on above: Order Comment: No: D o not add to previous draw Performed By: #### 4 1000, 19492, 70132, 54117 #### [facility] [address] [place] [address], [facility] IMMATURE GRANS 0.3 % Normal 0.0-1.0 [facility] Comment on above: Order Comment: No: D o not add to previous draw Performed By: #### 4 1000, 38615, 11578, 56599 #### [facility] [address] Lymphocytes #/vol (Bld) 3.4 10*3/uL Normal 1.2-4.0 [facility] Comment on above: Order Comment: No: D o not add to previous draw Performed By: #### 4 1000, 63647, 76621, 77229 #### [facility] [address] [place] [address], [facility] Lymphocytes/100 WBC (Bld) 38.3 % Normal 20.0-45.0 [facility] Comment on above: Order Comment: No: D o not add to previous draw Performed By: #### 4 1000, 59017, 21160, 97353 #### [facility] [address] [place] [address], [facility] MCH Entitic mass (RBC) 30.6 pg Normal 27.0-33.0 [facility] Comment on above: Order Comment: No: D o not add to previous draw Performed By: #### 4 1000, 36502, 31163, 44342 #### [facility] [address] MCHC mass conc (RBC) 33.1 g/dL Normal 32.0-35.0 [facility] Comment on above: Order Comment: No: D o not add to previous draw Performed By: #### 4 1000, 43934, 15835, 24926 #### [facility] [address] MCV Entitic volume (RBC) 92.5 fL Normal 82.0-98.0 [facility] Comment on above: Order Comment: No: D o not add to previous draw Performed By: #### 4 1000, 48559, 95603, 62114 #### [facility] [address] Monocytes #/vol (Bld) 0.9 10*3/uL Normal 0.1-1.0 Th e [facility] Comment on above: Order Comment: No: D o not add to previous draw Performed By: #### 4 1000, 37256, 38201, 73790 #### [facility] [address] [facility] MONOS 10.0 % Normal 5.0-12.0 [facility] Comment on above: Order Comment: No: D o not add to previous draw Performed By: #### 4 1000, 03860, 88073, 56511 #### [facility] [address] [place] [address], [facility] Neutrophils/100 WBC (Bld) 49.0 % Normal 40.0-72.0 [facility] Comment on above: Order Comment: No: D o not add to previous draw Performed By: #### 4 1000, 75025, 49777, 01681 #### [facility] [address] [place] [address], [facility] Nucleated RBC/100 WBC Ratio (Bld) 0 % Normal 0-0 [facility] Comment on above: Order Comment: No: D o not add to previous draw Performed By: #### 4 1000, 48423, 91276, 06575 #### [facility] [address] [place] [address], [facility] PLAT CNT 278 10*3/uL Normal 150-400 [facility] Comment on above: Order Comment: No: D o not add to previous draw Performed By: #### 4 1000, 28049, 50607, 84234 #### [facility] [address] RBC #/vol (Bld) 3.99 10*6/uL Normal 3.80-5.00 [facility] Comment on above: Order Comment: No: D o not add to previous draw Performed By: #### 4 1000, 59220, 63987, 47471 #### [facility] [address] WBC #/vol (Bld) 8.84 10*3/uL Normal 4.00-10.60 [facility] Comment on above: Order Comment: No: D o not add to previous draw Performed By: #### 4 1000, 51459, 23849, 97195 #### [facility] [address] Cardiovascular Lab Reporton 09-06-2018 Cardiovascular Lab Report [facility] #: [id number] Department of Physician: Yasmine Joseph M.D. Division of Service Date: 09/06/2018 Cardiology Birthdate: 1955 Adult Cardiovascular Room #: [id number] [place] [address] Cardiovascular Laboratory Report FINAL IMPRESSION: 1. Hemodynamically significant instent restenosis in the previously placed stents in the mid left anterior descending coronary artery with an FFR of 0.76. 2. Plain balloon angioplasty of the in-stent restenosis within the previously placed stents in the LAD and post POBA FFR of 0.92. 3. Hemodynamically insignificant lesion in the circumflex artery with an FFR value 0.92. 4. Patent stents in the right coronary artery. INDICATION: Kyle Powell is a 62-year-old female, who has chronic stable angina. She was admitted with worsening of angina, underwent a stress test that showed significant ECG changes and symptoms of angina. Because of that, she was referred for heart catheterization from [facility]. PROCEDURE: 1. Coronary angiography. 2. FFR of LAD. 3. FFR of circumflex. 4. Balloon angioplasty LAD. 5. IC nitroglycerin. 6. Ultrasound-guided access of the ulnar artery. 7. Left heart catheterization. RECOMMENDATION: 1. The patient should be started on isosorbide mononitrate 60 mg on a daily basis. 2. Discontinue heparin and continue post catheterization IV hydration. Case was discussed with the primary electric motor controls assembler, Dr. Mcdonald. 3. Follow up with Dr. Mcdonald in 1-2 weeks. METHODS: After risks, benefits, and alternatives were explained to the patient, the patient was brought to catheterization lab in a fasting state. Access was obtained into the right ulnar artery under ultrasound guidance and a 6-[place] Terumo [place] sheath was placed in right radial artery. 5-[place] Jl3.5 and JR 5 catheter was used for diagnostic angiography. After angiography was performed, we placed a 6-[place] XB3 guide for better angiography. At this point of time, we noted in-stent restenosis within the LAD and intermediate lesion in the circumflex. At this point of time, we decided to perform FFR of both these vessels. A 0.014 pressure wire was placed across the lesion in the LAD into the distal LAD. Note that there are 2 layers of stent in the mid LAD. These have been done for in-stent restenosis in the recent past. After this, adenosine was administered 140 mcg/kg/minute. FFR of 0.76 was obtained. At this point of time, pulled FFR wire and could see the normalization at the proximal end of the stent, which indicates the stenosis was significant. Given 2 layers of stents, I decided only treat with angioplasty. I used a 2.5 x 15 noncompliant balloon at 24 atmospheres throughout the stent. After the balloon angioplasty, I performed the FFR that came back at 0.92, indicating that the ISR was treated very well. We also noted there was some improvement in the caliber of the vessels after adenosine and nitroglycerin. Note that the nitroglycerin was administered before FFR. At this point of time, we decided to leave it as angioplasty alone. Then, the same FFR wire was placed in the circumflex. Note that the circumflex is a retroflexed with a 50%-60% proximal stenosis and then we performed FFR, this was 0.92, and after that was performed, we decided to conclude the procedure. Final angiography showed good balloon result and nearly no significant new lesions in the circumflex and no evidence of dissection or perforation. The patient tolerated the procedure well. There were no complications. Guiding catheter was removed and hemostasis was obtained with TR band. HEMODYNAMIC DATA: 1. AO 120/75, mean 58. 2. LV 130/11, mean 14 TOTAL FLUORO TIME: 14/42 minutes. TOTAL CONTRAST: 110 mL. CORONARY ANGIOGRAPHY: 1. Left main. This is moderate-size vessel and bifurcates into LAD and circumflex. Left main is angiographically normal. The proximal LAD has 30% to 40% stenosis, within the stent there is atleast 50% to 60% ISR in the mid and distal portion of the stent. This was also treated with angioplasty. Diagonal branch of the LAD has some ostial disease, but with RIAN-3 flow noted. No new stents were placed in the LAD. 2. Circumflex : is a retroflex circumflex. The proximal end has 50% stenosis, distally gives rise to 2 obtuse marginal branch, which are angiographically normal. FFR was nonsignificant. 3. Right coronary artery. This is large and dominant and it has a stent in the PDA, which is widely patent. Electronically Signed by: Jennifer Cormier M.D. 09/19/2018 02:21 P Jennifer Cormier M.D. Date Dict: 09/06/2018/09:27 Elisabeth/Jennifer Cormier M.D. Date Trans: 09/06/2018 11:28 Elisabeth/nav DN_[id number] cc: Faraz Osman M.D. [address] [facility] [address] Garrett Mcdonald M.D. [address] [facility] [address] Wilmar Morris D.O. [address] [facility] [place] [facility] [address] [place] [id number] Normal [facility] MAGNESIUM BLOODon 09-06-2018 Magnesium mass conc 2.0 mg/dL Normal 1.9-2.7 [facility] Comment on above: Order Comment: No: D o not add to previous draw Performed By: #### 4 1000, 46799, 78981, 94395 #### [facility] [address] [place] [address], [place] PHOSPHORUS BLOODon 8 Phosphate mass conc 5.2 mg/dL High 2.5-5.0 [facility] Comment on above: Order Comment: No: D o not add to previous draw Performed By: #### 4 1000, 82569, 60074, 31675 #### [facility] [address] [place] [address], [place] POC GLUCOSE LABon 09-06-2018 Glucose mass conc 203 mg/dL High 70-100 [facility] Comment on above: Performed By: #### 4 1000, 81655, 69895, 45385 #### [facility] [address] [place] [address], [place] Glucose mass conc 176 mg/dL High 70-100 [facility] Comment on above: Performed By: #### 4 1000, 32312, 90474, 40462 #### [facility] [address] [place] [address], [place] Glucose mass conc 199 mg/dL High 70-100 [facility] Comment on above: Performed By: #### 4 1000, 57339, 54091, 10440 #### [facility] [address] [place] [address], [place] Glucose mass conc 158 mg/dL High 70-100 [facility] Comment on above: Performed By: #### 4 1000, 37919, 69286, 48281 #### [facility] [address] [facility] PROTHROMBIN TIMEon 8 INR Coag RelTime (PPP) 1.14 {INR} Normal 0.91-1.16 [facility] Comment on above: Order Comment: No: D o not add to previous draw Result Comment: ACCC P RECOMMENDED INR FOR WARFARIN THERAPY -------- ------- CONDITION INR PROPHYLAXIS OF VENOUS THROMBOSIS 2-3 (HIGH-RISK SURGERY) TREATMENT OF VENOUS THROMBOSIS 2-3 TREATMENT OF PULMONARY EMBOLISM 2-3 PREVENTION OF SYSTEMIC EMBOLISM: 2-3 ACUTE MYOCARDIAL INFARCTION TISSUE HEART VALVES VALVULAR HEART DISEASE ATRIAL FIBRILLATION RECURRENT SYSTEMIC EMBOLISM MECHANICAL HEART VALVE 2.5-3.5 FROM: ORAL ANTICOAGULANTS. MECHANISM OF ACTION, CLINICAL EFFECTIVENESS, AND OPTIMAL THERAPEUTIC RANGE. CHEST 1995;108:231S-246S. Performed By: #### 4 1000, 15747, 53507, 69018 #### [facility] [address] [facility]. [address] Prothrombin time (PT) Coag time (PPP) 14.6 s Normal 12.3-14.8 [facility] Comment on above: Order Comment: No: D o not add to previous draw Result Comment: ALL RESULTS MUST BE INTERPRETED WITH RESPECT TO BLOOD DRAWING ARTIFACT OR DILUTION ERROR OF ANTICOAGULANT AT THE TIME OF SAMPLING. Performed By: #### 4 1000, 81390, 93411, 05388 #### [facility] [address] [place] [address], [place] TROPONIN-Ion 09-06-2018 Troponin I.cardiac mass conc 0.00 ng/mL Normal 0.00-0.04 [facility] Comment on above: Order Comment: No: D o not add to previous draw Result Comment: REFE RENCE RANGES: 0.00 - 0.14 ng/ml NEGATIVE 0.15 - 0.25 ng/ml INDETERMINATE > 0.25 ng/ml INDICATIVE OF AN M.I. Performed By: #### 4 1000, 15444, 69997, 76732 #### [facility] [address] [place] [address], [facility] BASIC METABOLIC PANELon Calcium mass conc 9.3 mg/dL Normal 8.6-10.3 [facility] Comment on above: Order Comment: No: D o not add to previous draw Performed By: #### 4 1000, 81985, 13632, 19627 #### [facility] [address] [place] [address], [place] Chloride molar conc 104 mmol/L Normal 98-107 [facility] Comment on above: Order Comment: No: D o not add to previous draw Performed By: #### 4 1000, 79631, 95144, 32441 #### [facility] [address] [place] [address], [place] CO2 molar conc 23 mmol/L Normal 21-31 [facility] Comment on above: Order Comment: No: D o not add to previous draw Performed By: #### 4 1000, 19559, 95756, 99217 #### [facility] [address] [place] [address], [place] Creatinine mass conc 0.84 mg/dL Normal 0.60-1.20 [facility] Comment on above: Order Comment: No: D o not add to previous draw Performed By: #### 4 1000, 77020, 09817, 25803 #### [facility] [address] [place] [address], [place] GFR/1.73 sq M predicted among blacks MDRD vol rate/area (S/P/Bld) mL/min/{1.73_m2} Normal >60 [facility] Comment on above: Order Comment: No: D o not add to previous draw Performed By: #### 4 1000, 12613, 62462, 21431 #### [facility] [address] [place] [address], [place] GFR/1.73 sq M predicted among non-blacks MDRD vol rate/area (S/P/Bld) mL/min/{1.73_m2} Normal >60 [facility] Comment on above: Order Comment: No: D o not add to previous draw Performed By: #### 4 1000, 70801, 35125, 94276 #### [facility] [address] [place] [address], [place] Glucose mass conc 124 mg/dL High 70-100 [facility] Comment on above: Order Comment: No: D o not add to previous draw Performed By: #### 4 1000, 26845, 55008, 56247 #### [facility] [address] [place] [address], [place] Potassium molar conc 4.2 mmol/L Normal 3.5-5.1 [facility] Comment on above: Order Comment: No: D o not add to previous draw Performed By: #### 4 1000, 96044, 86664, 26633 #### [facility] [address] [place] [address], [place] Sodium molar conc 137 mmol/L Normal 136-145 [facility] Comment on above: Order Comment: No: D o not add to previous draw Performed By: #### 4 1000, 84619, 15623, 03803 #### [facility] [address] [place] [address], [place] Urea nitrogen mass conc 25 mg/dL Normal 7-25 [facility] Comment on above: Order Comment: No: D o not add to previous draw Performed By: #### 4 1000, 93100, 44023, 85431 #### [facility] [address] [facility] CBC W/DIFFon 09-05-2018 ABS BASOPHILS 0.0 10*3/uL Normal 0.0-0.2 [facility] Comment on above: Performed By: #### 4 1000, 76644, 47594, 47831 #### [facility] [address] [facility] ABS IMM GRANS 0.0 10*3/uL Normal 0.0-0.2 [facility] Comment on above: Performed By: #### 4 1000, 95965, 59894, 40480 #### [facility] [address] [facility] ABS NEUTROPHILS 5.5 10*3/uL Normal 1.6-7.6 [facility] Comment on above: Performed By: #### 4 1000, 11012, 11273, 08336 #### [facility] [address] [facility]. [address] Basophils #/vol (Bld) 0.4 % Normal 0.0-1.0 [facility] Comment on above: Performed By: #### 4 1000, 39450, 03735, 99628 #### [facility] [address] [facility] Eosinophils #/vol (Bld) 0.2 10*3/uL Normal 0.0-0.5 [facility] Comment on above: Performed By: #### 4 1000, 45234, 18467, 69662 #### [facility] [address] [place] [address], [facility] Eosinophils/100 WBC (Bld) 1.9 % Normal 0.0-6.0 [facility] Comment on above: Performed By: #### 4 1000, 68872, 12733, 52744 #### [facility] [address] [facility]. [address] Erythrocyte distribution width Ratio (RBC) 12.6 % Normal 11.5-15.0 [facility] Comment on above: Performed By: #### 4 1000, 31794, 32375, 35799 #### [facility] [address] [facility] [address] Hematocrit Volume Fraction (Bld) 40.6 % Normal 36.0-45.0 [facility] Comment on above: Performed By: #### 4 1000, 17466, 35641, 34920 #### [facility] [address] [facility] [address] [address] Hemoglobin mass conc (Bld) 13.4 g/dL Normal 12.0-15.0 [facility] Comment on above: Performed By: #### 4 1000, 69232, 74912, 67761 #### [facility] [address] [facility]. [address] IMMATURE GRANS 0.2 % Normal 0.0-1.0 [facility] Comment on above: Performed By: #### 4 1000, 33813, 60035, 49714 #### [facility] [address] [facility]. [address] Lymphocytes #/vol (Bld) 3.5 10*3/uL Normal 1.2-4.0 [facility] Comment on above: Performed By: #### 4 1000, 93494, 77004, 82855 #### [facility] [address] [facility]. [address] Lymphocytes/100 WBC (Bld) 35.3 % Normal 20.0-45.0 [facility] Comment on above: Performed By: #### 4 1000, 82460, 90846, 29410 #### [facility] [address] [place] [address], [facility] MCH Entitic mass (RBC) 30.3 pg Normal 27.0-33.0 [facility] Comment on above: Performed By: #### 4 1000, 10012, 78894, 90267 #### [facility] [address] [place] [address], [facility] MCHC mass conc (RBC) 33.0 g/dL Normal 32.0-35.0 [facility] Comment on above: Performed By: #### 4 1000, 67159, 88828, 61190 #### [facility] [address] [place] [id number], [facility] MCV Entitic volume (RBC) 91.9 fL Normal 82.0-98.0 [facility] Comment on above: Performed By: #### 4 1000, 67609, 08135, 54444 #### [facility] [address] [place] [address], [facility] Monocytes #/vol (Bld) 0.7 10*3/uL Normal 0.1-1.0 e [facility] Comment on above: Performed By: #### 4 1000, 96098, 31944, 40500 #### [facility] [address] [place] [address], [facility] MONOS 7.4 % Normal 5.0-12.0 [facility] Comment on above: Performed By: #### 4 1000, 52094, 29152, 76046 #### [facility] [address] [place] [address], [facility] Neutrophils/100 WBC (Bld) 54.8 % Normal 40.0-72.0 [facility] Comment on above: Performed By: #### 4 1000, 54379, 99769, 43523 #### [facility] [address] [place] [address], [facility] Nucleated RBC/100 WBC Ratio (Bld) 0 % Normal 0-0 [facility] Comment on above: Performed By: #### 4 1000, 86479, 70503, 88992 #### [facility] [address] [place] [address], [facility] PLAT CNT 325 10*3/uL Normal 150-400 [facility] Comment on above: Performed By: #### 4 1000, 57555, 46277, 51064 #### [facility] [address] [place] [address], [facility] RBC #/vol (Bld) 4.42 10*6/uL Normal 3.80-5.00 [facility] Comment on above: Performed By: #### 4 1000, 30288, 42924, 14393 #### [facility] [address] [place] [address], [facility] WBC #/vol (Bld) 9.97 10*3/uL Normal 4.00-10.60 [facility] Comment on above: Performed By: #### 4 1000, 33189, 42413, 11929 #### [facility] [address] History and Physicalon 09-05 History and Physical MR#: [id number] [facility] Pt. Name: Kyle Powell Admitted: 09/05/2018 Date of : 1955 Attending Physician: Jonah Sanabria MD Room #: [id number] Discharge Date: HISTORY AND PHYSICAL HISTORY OF PRESENT ILLNESS: The patient is a 62-year-old female, very pleasant with past medical history significant for coronary artery disease, history of multiple strokes in the past, presented to the [facility] from the [facility] as a direct admit. The patient stated that 3 days ago she went to the [facility] because of the chest pain that was located centrally, nonradiating, getting worse with activity and then she was admitted in [facility] for 3 days. Today, she went for the Persantine stress test. When they were injecting Persantine, the patient found to have ST elevation and they aborted the procedure and decision were made to transfer the patient to the [facility] for a possible cardiac cath. the electric motor controls assembler per the patient. At the time of encounter, the patient is sitting comfortably in bed, not in acute distress. The patient has last cardiac cath in [facility] in 01/2017. The patient had severe ostial stenosis of the posterior descending branch of the right coronary artery, successfully treated by balloon angioplasty. An AngioSculpt, angioplasty and Synergy drug-eluting stent was placed. Since then, the patient was doing well. The patient stated that she has been taking all her medications. The patient also has significant history of hypertension and insulin-dependent diabetes mellitus. The patient denies headache, blurring of vision, chest pain, shortness of breath at the time of encounter, abdominal pain, nausea, vomiting, diarrhea, dysuria, hematuria, hematochezia, melena, joint pain, rash, fever, any recent travel outside, any change in weight and appetite. REVIEW OF SYSTEMS: A 12-point review of systems obtained, negative except as per presenting illness. past medical history: CAD, history of a stroke Past surgical history: history of previous stent Social history: denies smoking or alcohol abuse Family history: noncontributory PHYSICAL EXAMINATION: VITAL SIGNS: The patient is afebrile. Blood pressure is 140/60, heart rate is 70. The patient is saturating 95% on room air. GENERAL APPEARANCE: Alert, oriented x3, lying comfortably in bed, not in acute distress. Nursing staff at bedside. HEART: S1, S2 audible. No added sounds. CHEST: Clear bilaterally. No sign of labored breathing. Equal breath sounds. No crackles. No wheezing noted. ABDOMEN: Protuberant, soft, and nontender. Bowel sounds audible 2nd line. MUSCULOSKELETAL: No joint deformity noted. NEUROLOGIC: Grossly intact. The patient does not have any memory deficit at the time of encounter, but the patient does report on and off deficit in memory and short-term memory problem. Cranial nerve intact grossly. Power 5/5 in all limbs. The patient has good strength, sensation intact except bilateral lower extremity. Reflexes intact +2. SKIN: No rashes. No bruises noted. PSYCH: The patient has good insight. No subtle suicidal or homicidal ideation noted. MEDICATIONS: Have been reconciled. LABORATORY DATA: From the [facility], troponin 0.01, last. The patient hemoglobin and BMP were stable. We ordered a repeat BMP and CBC and tropes level that are pending. CBC is unremarkable at our system. ASSESSMENT AND PLAN: 1. Atypical chest pain, rule out ACS. Persantine as a stress test was aborted at the [facility] because of ST-segment changes. We will trend the troponin. Currently, the patient is asymptomatic. No chest pain. No significant EKG changes noted. The EKG showed normal sinus rhythm with sinus arrhythmia, nonspecific T wave changes. I spoke with the cardiology team. They are planning to do cardiac cath tomorrow The patient was started on statin, aspirin, Plavix, and beta drew. 2. Hypertension. We will resume amlodipine. Continue Coreg. We will hold the lisinopril as the patient is going for the cardiac cath. We will keep her n.p.o. for the cardiac cath. 3. Type 2 diabetes mellitus. Continue home regimen. Lantus 40 units at bedtime in the morning and sliding scale. 4. Diabetic nephropathy. We will continue with gabapentin 400 mg t.i.d. 5. Hyperlipidemia. Continue statin. 6. Diet, n.p.o. For now. 7. DVT, on Lovenox. DISPOSITION: Pending clinical course. LENGTH OF STAY: Less than 48 hours, possible. Electronically Signed by: Jonah Sanabria MD 09/16/2018 09:22 A Jonah Sanabria MD Date Dict: 09/05/2018/03:49 P/Jonah Sanabria MD Date Trans: 09/05/2018 04:59 P/nav [id number] Normal [facility] MAGNESIUM BLOODon 09-05-2018 Magnesium mass conc 1.9 mg/dL Normal 1.9-2.7 [facility] Comment on above: Order Comment: No: D o not add to previous draw Performed By: #### 4 1000, 31752, 59630, 06979 #### [facility] [address] [place] [address], [facility] PHOSPHORUS BLOODon 8 Phosphate mass conc 4.5 mg/dL Normal 2.5-5.0 [facility] Comment on above: Order Comment: No: D o not add to previous draw Performed By: #### 4 1000, 01148, 97914, 79530 #### [facility] [address] [place] [address], [facility] POC GLUCOSE LABon 09-05-2018 Glucose mass conc 192 mg/dL High 70-100 [facility] Comment on above: Performed By: #### 4 1000, 04536, 88253, 08971 #### [facility] [address] [place] [address], [facility] Glucose mass conc 119 mg/dL High 70-100 [facility] Comment on above: Performed By: #### 4 1000, 15717, 34359, 40256 #### [facility] [address] [place] [address], [facility] TROPONIN-Ion 09-05-2018 Troponin I.cardiac mass conc 0.01 ng/mL Normal 0.00-0.04 [facility] Comment on above: Order Comment: No: D o not add to previous draw Result Comment: REFE RENCE RANGES: 0.00 - 0.04 ng/ml NORMAL 0.05 - 0.50 ng/ml INDETERMINATE > 0.50 ng/ml CONSISTENT WITH AN M.I. Performed By: #### 4 1000, 08285, 23063, 23813 #### [facility] [address] [place] [address], [facility] Troponin I.cardiac mass conc 0.01 ng/mL Normal 0.00-0.04 [facility] Comment on above: Order Comment: No: D o not add to previous draw Result Comment: REFE RENCE RANGES: 0.00 - 0.04 ng/ml NORMAL 0.05 - 0.50 ng/ml INDETERMINATE > 0.50 ng/ml CONSISTENT WITH AN M.I. Performed By: #### 4 1000, 20792, 62133, 42684 #### [facility] [address] [place] [address], [facility] POC GLUCOSE LABon 05-03-2018 Glucose mass conc 299 mg/dL High 70-100 [facility] Comment on above: Performed By: #### 4 1000, 82398, 88916, 62190 #### [facility] [address] [place] [address], [facility] Glucose mass conc 233 mg/dL High 70-100 [facility] Comment on above: Performed By: #### 4 1000, 31089, 58200, 88428 #### [facility] [address] [place] [address], [place] BASIC METABOLIC PANELon 08-0 Calcium mass conc 9.3 mg/dL Normal 8.6-10.3 [facility] Comment on above: Order Comment: No: D o not add to previous draw Performed By: #### 4 1000, 07255, 68420, 84410 #### [facility] [address] [place] [address], [place] Chloride molar conc 103 mmol/L Normal 98-107 [facility] Comment on above: Order Comment: No: D o not add to previous draw Performed By: #### 4 1000, 41738, 11561, 41857 #### [facility] [address] [place] [address], [place] CO2 molar conc 27 mmol/L Normal 21-31 [facility] Comment on above: Order Comment: No: D o not add to previous draw Performed By: #### 4 1000, 08322, 90670, 01678 #### [facility] [address] [place] [address], [place] Creatinine mass conc 0.80 mg/dL Normal 0.60-1.20 [facility] Comment on above: Order Comment: No: D o not add to previous draw Performed By: #### 4 1000, 80004, 87558, 20880 #### [facility] [address] [place] [address], [place] GFR/1.73 sq M predicted among blacks MDRD vol rate/area (S/P/Bld) mL/min/{1.73_m2} Normal >60 [facility] Comment on above: Order Comment: No: D o not add to previous draw Performed By: #### 4 1000, 63517, 64841, 71743 #### [facility] [address] [place] [address], [facility] GFR/1.73 sq M predicted among non-blacks MDRD vol rate/area (S/P/Bld) mL/min/{1.73_m2} Normal >60 [facility] Comment on above: Order Comment: No: D o not add to previous draw Performed By: #### 4 1000, 66454, 51882, 57070 #### [facility] [address] [place] [address], [facility] Glucose mass conc 272 mg/dL High 70-100 [facility] Comment on above: Order Comment: No: D o not add to previous draw Performed By: #### 4 1000, 85774, 00332, 71478 #### [facility] [address] [place] [address], [facility] Potassium molar conc 4.1 mmol/L Normal 3.5-5.1 [facility] Comment on above: Order Comment: No: D o not add to previous draw Performed By: #### 4 1000, 96116, 02789, 12443 #### [facility] [address] [place] [address], [facility] Sodium molar conc 138 mmol/L Normal 136-145 [facility] Comment on above: Order Comment: No: D o not add to previous draw Performed By: #### 4 1000, 65407, 37805, 52243 #### [facility] [address] [place] [address], [facility] Urea nitrogen mass conc 19 mg/dL Normal 7-25 [facility] Comment on above: Order Comment: No: D o not add to previous draw Performed By: #### 4 1000, 91551, 54010, 95511 #### [facility] [address] [place] [address], [place] CBC COMPLETE BLOOD COUNTon 0 - Erythrocyte distribution width Ratio (RBC) 12.9 % Normal 11.5-15.0 [facility] Comment on above: Order Comment: No: D o not add to previous draw Performed By: #### 4 1000, 37304, 06965, 83896 #### [facility] [address] [place] [address], [facility] Hematocrit Volume Fraction (Bld) 37.6 % Normal 36.0-45.0 [facility] Comment on above: Order Comment: No: D o not add to previous draw Performed By: #### 4 1000, 30546, 44407, 42486 #### [facility] [address] [place] [address], [facility] Hemoglobin mass conc (Bld) 12.2 g/dL Normal 12.0-15.0 [facility] Comment on above: Order Comment: No: D o not add to previous draw Performed By: #### 4 1000, 60265, 99354, 19599 #### [facility] [address] [place] [address], [facility] MCH Entitic mass (RBC) 29.7 pg Normal 27.0-33.0 [facility] Comment on above: Order Comment: No: D o not add to previous draw Performed By: #### 4 1000, 19527, 44222, 38461 #### [facility] [address] [place] [address], [facility] MCHC mass conc (RBC) 32.4 g/dL Normal 32.0-35.0 [facility] Comment on above: Order Comment: No: D o not add to previous draw Performed By: #### 4 1000, 14959, 31041, 26098 #### [facility] [address] [place] [address], [place] MCV Entitic volume (RBC) 91.5 fL Normal 82.0-98.0 [facility] Comment on above: Order Comment: No: D o not add to previous draw Performed By: #### 4 1000, 81120, 41755, 67773 #### [facility] [address] [place] [address], [facility] Nucleated RBC/100 WBC Ratio (Bld) 0 % Normal 0-0 [facility] Comment on above: Order Comment: No: D o not add to previous draw Performed By: #### 4 1000, 46926, 54575, 35445 #### [facility] [address] [place] [address], [place] PLAT CNT 229 10*3/uL Normal 150-400 [facility] Comment on above: Order Comment: No: D o not add to previous draw Performed By: #### 4 1000, 41535, 90550, 72132 #### [facility] [address] [place] [id number], [facility] RBC #/vol (Bld) 4.11 10*6/uL Normal 3.80-5.00 [facility] Comment on above: Order Comment: No: D o not add to previous draw Performed By: #### 4 1000, 24923, 58718, 26949 #### [facility] [address] [place] [address], [facility] WBC #/vol (Bld) 6.30 10*3/uL Normal 4.00-10.60 [facility] Comment on above: Order Comment: No: D o not add to previous draw Performed By: #### 4 1000, 21881, 05531, 74528 #### [facility] [address] [place] [address], [facility] POC GLUCOSE LABon 05-02-2018 Glucose mass conc 295 mg/dL High 70-100 [facility] Comment on above: Performed By: #### 4 1000, 39086, 94985, 46409 #### [facility] [address] [place] [address], [place] Glucose mass conc 327 mg/dL High 70-100 [facility] Comment on above: Performed By: #### 4 1000, 78882, 59067, 27100 #### [facility] [address] [place] [address], [place] Glucose mass conc 326 mg/dL High 70-100 [facility] Comment on above: Performed By: #### 4 1000, 14159, 92278, 81487 #### [facility] [address] [place] [address], [place] Glucose mass conc 265 mg/dL High 70-100 [facility] Comment on above: Performed By: #### 5 7307, 87787 #### [facility] [address] [place] [address], [facility] Glucose mass conc 347 mg/dL High 70-100 [facility] Comment on above: Performed By: #### 5 7307, 99318 #### [facility] [address] [place] [address], [facility] BASIC METABOLIC PANELon 08-0 Calcium mass conc 9.3 mg/dL Normal 8.6-10.3 [facility] Comment on above: Order Comment: No: D o not add to previous draw Performed By: #### 5 73, 81016 #### [facility] [address] [place] [address], [facility] Chloride molar conc 103 mmol/L Normal 98-107 [facility] Comment on above: Order Comment: No: D o not add to previous draw Performed By: #### 5 73, 83380 #### [facility] [address] [place] [address], [facility] CO2 molar conc 24 mmol/L Normal 21-31 [facility] Comment on above: Order Comment: No: D o not add to previous draw Performed By: #### 5 7307, 89332 #### [facility] [address] [place] [address], [facility] Creatinine mass conc 0.78 mg/dL Normal 0.60-1.20 [facility] Comment on above: Order Comment: No: D o not add to previous draw Performed By: #### 5 7307, 85690 #### [facility] [address] [place] [address], [place] GFR/1.73 sq M predicted among blacks MDRD vol rate/area (S/P/Bld) mL/min/{1.73_m2} Normal >60 [facility] Comment on above: Order Comment: No: D o not add to previous draw Performed By: #### 5 7307, 48735 #### [facility] [address] [place] [address], [place] GFR/1.73 sq M predicted among non-blacks MDRD vol rate/area (S/P/Bld) mL/min/{1.73_m2} Normal >60 [facility] Comment on above: Order Comment: No: D o not add to previous draw Performed By: #### 5 73, 09464 #### [facility] [address] [place] [address], [place] Glucose mass conc 270 mg/dL High 70-100 [facility] Comment on above: Order Comment: No: D o not add to previous draw Performed By: #### 5 7307, 84579 #### [facility] [address] [place] [address], [place] Potassium molar conc 4.2 mmol/L Normal 3.5-5.1 [facility] Comment on above: Order Comment: No: D o not add to previous draw Performed By: #### 5 7307, 55124 #### [facility] [address] [place] [address], [place] Sodium molar conc 136 mmol/L Normal 136-145 [facility] Comment on above: Order Comment: No: D o not add to previous draw Performed By: #### 5 7307, 88415 #### [facility] [address] [place] [address], [place] Urea nitrogen mass conc 20 mg/dL Normal 7-25 [facility] Comment on above: Order Comment: No: D o not add to previous draw Performed By: #### 5 7307, 90776 #### [facility] [address] [place] [address], [facility] CBC COMPLETE BLOOD COUNTon 0 05-01-2018 Erythrocyte distribution width Ratio (RBC) 13.0 % Normal 11.5-15.0 [facility] Comment on above: Order Comment: No: D o not add to previous draw Performed By: #### 5 7307, 36294 #### [facility] [address] [place] [address], [facility] Hematocrit Volume Fraction (Bld) 37.6 % Normal 36.0-45.0 [facility] Comment on above: Order Comment: No: D o not add to previous draw Performed By: #### 5 73, 22024 #### [facility] [address] [place] [address], [facility] Hemoglobin mass conc (Bld) 12.5 g/dL Normal 12.0-15.0 [facility] Comment on above: Order Comment: No: D o not add to previous draw Performed By: #### 5 73, 05867 #### [facility] [address] [place] [address], [facility] MCH Entitic mass (RBC) 30.2 pg Normal 27.0-33.0 [facility] Comment on above: Order Comment: No: D o not add to previous draw Performed By: #### 5 7307, 05065 #### [facility] [address] [place] [address], [facility] MCHC mass conc (RBC) 33.2 g/dL Normal 32.0-35.0 [facility] Comment on above: Order Comment: No: D o not add to previous draw Performed By: #### 5 7307, 29546 #### [facility] [address] [place] [address], [facility] MCV Entitic volume (RBC) 90.8 fL Normal 82.0-98.0 [facility] Comment on above: Order Comment: No: D o not add to previous draw Performed By: #### 5 73, 78638 #### [facility] [address] [place] [address], [facility] Nucleated RBC/100 WBC Ratio (Bld) 0 % Normal 0-0 [facility] Comment on above: Order Comment: No: D o not add to previous draw Performed By: #### 5 7306, 76081 #### [facility] [address] [place] [address], [facility] PLAT CNT 252 10*3/uL Normal 150-400 [facility] Comment on above: Order Comment: No: D o not add to previous draw Performed By: #### 5 73, 67804 #### [facility] [address] [place] [address], [facility] RBC #/vol (Bld) 4.14 10*6/uL Normal 3.80-5.00 [facility] Comment on above: Order Comment: No: D o not add to previous draw Performed By: #### 5 7306, [id number] #### [facility] [address] [place] [address], [facility] WBC #/vol (Bld) 6.80 10*3/uL Normal 4.00-10.60 [facility] Comment on above: Order Comment: No: D o not add to previous draw Performed By: #### 5 73, 89425 #### [facility] [address] POC GLUCOSE LABon 05-01-2018 Glucose mass conc 300 mg/dL High 70-100 [facility] Comment on above: Performed By: #### 5 73, 16520 #### [facility] [address] [place] [address], [facility] Glucose mass conc 344 mg/dL High 70-100 [facility] Comment on above: Performed By: #### 5 73, 91011 #### [facility] [address] [place] [address], [facility] Glucose mass conc 335 mg/dL High 70-100 [facility] Comment on above: Performed By: #### 5 7307, 12293 #### [facility] [address] [place] [address], [place] Glucose mass conc 263 mg/dL High 70-100 [facility] Comment on above: Performed By: #### 5 7307, 41885 #### [facility] [address] [place] [address], [facility] BASIC METABOLIC PANELon 07-3 Calcium mass conc 9.0 mg/dL Normal 8.6-10.3 [facility] Comment on above: Order Comment: No: D o not add to previous draw Performed By: #### 5 7307, 53059 #### [facility] [address] [place] [address], [facility] Chloride molar conc 105 mmol/L Normal 98-107 [facility] Comment on above: Order Comment: No: D o not add to previous draw Performed By: #### 5 7307, 07089 #### [facility] [address] [place] [address], [facility] CO2 molar conc 25 mmol/L Normal 21-31 [facility] Comment on above: Order Comment: No: D o not add to previous draw Performed By: #### 5 7307, 95158 #### [facility] [address] [place] [address], [facility] Creatinine mass conc 0.80 mg/dL Normal 0.60-1.20 [facility] Comment on above: Order Comment: No: D o not add to previous draw Performed By: #### 5 7307, 37614 #### [facility] [address] [place] [id number], [facility] GFR/1.73 sq M predicted among blacks MDRD vol rate/area (S/P/Bld) mL/min/{1.73_m2} Normal >60 [facility] Comment on above: Order Comment: No: D o not add to previous draw Performed By: #### 5 7307, 51141 #### [facility] [address] [place] [address], [facility] GFR/1.73 sq M predicted among non-blacks MDRD vol rate/area (S/P/Bld) mL/min/{1.73_m2} Normal >60 [facility] Comment on above: Order Comment: No: D o not add to previous draw Performed By: #### 5 73, 80270 #### [facility] [address] [place] [address], [facility] Glucose mass conc 238 mg/dL High 70-100 [facility] Comment on above: Order Comment: No: D o not add to previous draw Performed By: #### 5 73, 55882 #### [facility] [address] [place] [address], [place] Potassium molar conc 3.9 mmol/L Normal 3.5-5.1 [facility] Comment on above: Order Comment: No: D o not add to previous draw Performed By: #### 5 7307, 29138 #### [facility] [address] [place] [address], [place] Sodium molar conc 137 mmol/L Normal 136-145 [facility] Comment on above: Order Comment: No: D o not add to previous draw Performed By: #### 5 7307, 12089 #### [facility] [address] [place] [address], [place] Urea nitrogen mass conc 21 mg/dL Normal 7-25 [facility] Comment on above: Order Comment: No: D o not add to previous draw Performed By: #### 5 7307, 01104 #### [facility] [address] [place] [address], [place] CBC COMPLETE BLOOD COUNTon 0 - Erythrocyte distribution width Ratio (RBC) 12.9 % Normal 11.5-15.0 [facility] Comment on above: Order Comment: No: D o not add to previous draw Performed By: #### 5 73, 90685 #### [facility] [address] [place] [address], [facility] Hematocrit Volume Fraction (Bld) 37.4 % Normal 36.0-45.0 [facility] Comment on above: Order Comment: No: D o not add to previous draw Performed By: #### 5 7306, 03520 #### [facility] [address] [place] [address], [facility] Hemoglobin mass conc (Bld) 12.2 g/dL Normal 12.0-15.0 [facility] Comment on above: Order Comment: No: D o not add to previous draw Performed By: #### 5 7306, 54398 #### [facility] [address] [place] [address], [facility] MCH Entitic mass (RBC) 29.5 pg Normal 27.0-33.0 [facility] Comment on above: Order Comment: No: D o not add to previous draw Performed By: #### 5 73, 39827 #### [facility] [address] [place] [address], [facility] MCHC mass conc (RBC) 32.6 g/dL Normal 32.0-35.0 [facility] Comment on above: Order Comment: No: D o not add to previous draw Performed By: #### 5 7307, 28751 #### [facility] [address] [place] [address], [facility] MCV Entitic volume (RBC) 90.6 fL Normal 82.0-98.0 [facility] Comment on above: Order Comment: No: D o not add to previous draw Performed By: #### 5 7307, 23905 #### [facility] [address] [place] [id number], [facility] Nucleated RBC/100 WBC Ratio (Bld) 0 % Normal 0-0 [facility] Comment on above: Order Comment: No: D o not add to previous draw Performed By: #### 5 7307, 55351 #### [facility] [address] [place] [address], [facility] PLAT CNT 262 10*3/uL Normal 150-400 [facility] Comment on above: Order Comment: No: D o not add to previous draw Performed By: #### 5 7307, 67893 #### [facility] [address] [place] [address], [facility] RBC #/vol (Bld) 4.13 10*6/uL Normal 3.80-5.00 [facility] Comment on above: Order Comment: No: D o not add to previous draw Performed By: #### 5 7307, 23700 #### [facility] [address] [place] [address], [facility] WBC #/vol (Bld) 6.73 10*3/uL Normal 4.00-10.60 [facility] Comment on above: Order Comment: No: D o not add to previous draw Performed By: #### 5 7307, 11373 #### [facility] [address] LIPID PROFILEon 04-30-2018 Cholesterol in HDL mass conc 27 mg/dL Normal 23-92 [facility] Comment on above: Order Comment: No: D o not add to previous draw Result Comment: Slig ht variation in normal range could be due to gender and/or age. HDL CHOLESTEROL REFERENCE RANGE: 20 years and older Cardiovascular Risk > or =60 mg/dL Desirable 40 TO 59 mg/dL Low Risk <40 mg/dL High Risk Performed By: #### 5 7307, 49951 #### [facility] [address] Cholesterol in LDL mass conc 0 mg/dL Normal 0-130 [facility] Comment on above: Order Comment: No: D o not add to previous draw Result Comment: LDL IS A CALCULATION LDL IS ONLY VALID IF THE TRIG IS LESS THAN 400. Performed By: #### 5 7307, 46067 #### [facility] [address] [place] [address], [facility] Cholesterol mass conc 112 mg/dL Low 120-200 [facility] Comment on above: Order Comment: No: D o not add to previous draw Result Comment: CHOL ESTEROL REFERENCE RANGE: 20 YEARS AND OLDER CARDIOVASCULAR RISK Less than 200 mg/dl Low Risk 200 to 239 mg/dl Borderline Risk 240 mg/dl and greater High Risk Performed By: #### 5 7307, 70049 #### [facility] [address] [place] [address], [facility] Cholesterol.total/Cho lesterol in HDL mass ratio 4.1 {ratio} Normal .0-4.5 [facility] Comment on above: Order Comment: No: D o not add to previous draw Performed By: #### 5 7307, 21304 #### [facility] [address] [place] [address], [facility] NON-HDL CHOLESTEROL 85 mg/dL Normal [facility] Comment on above: Order Comment: No: D o not add to previous draw Performed By: #### 5 7307, 26273 #### [facility] [address] [place] [address], [facility] Triglyceride mass conc 424 mg/dL High 40-149 [facility] Comment on above: Order Comment: No: D o not add to previous draw Result Comment: TRIG LYCERIDE REFERENCE RANGE: 20 YEARS AND OLDER CARDIOVASCULAR RISK LESS THAN 150 mg/dl LOW RISK 150 TO 199 mg/dl BORDERLINE RISK 200 mg/dl AND GREATER HIGH RISK Performed By: #### 5 7307, 46711 #### [facility] [address] [place] [address], [facility] VLDL CHOL 85 mg/dL High 0-40 [facility] Comment on above: Order Comment: No: D o not add to previous draw Performed By: #### 5 7307, 69751 #### [facility] [id number] [place] [address] MAGNESIUM BLOODon 04-30-2018 Magnesium mass conc 1.8 mg/dL Low 1.9-2.7 [facility] Comment on above: Order Comment: No: D o not add to previous draw Performed By: #### 5 7307, 24194 #### [id number] [place] [address] MRI BRAIN WO CONTRASTon 04-02 MRI BRAIN WO CONTRAST [facility] Department of Radiology [address] [place] [address] [id number] Patient Name: KYLE POWELL : 1955 Sex: F Age: Race: White Pt. Location: [place] [address] Patient Status: I Ordered Date: 04/28/2018 6:40:00 PM Completed Date: 04/30/2018 03:59 PM Requesting Provider: JOSUÉ WRIGHT Attending Provider: KARRIE CHANDRA Report Copy To: Signs & Symptoms: Facial Droop History: Patient history not available Comments: R/O Bleed Exam: MRI BRAIN WO CONTRAST MRI BRAIN WO CONTRAST 04/30/2018 3:59 PM EDT SIGN AND SYMPTOMS: Facial Droop, blurry vision, slurred speech. QUESTION FOR RADIOLOGIST: R/O Bleed PROTOCOL: The following pulse sequences were utilized when imaging the brain: sagittal T1, diffusion weighted imaging, axial T2 FLAIR, axial T2 fat-sat, axial T1, axial GRE. COMPARISON: None. FINDINGS: Extra axial spaces: Age appropriate. Hemorrhage: None. Ventricular system: Within normal limits. Basal cisterns: Within normal limits and not effaced. Cerebral parenchyma: Increased T2 FLAIR focus within the right thalamus appears to demonstrate a thin peripheral rim of diffusion restriction along the lateral margin of the lesion with corresponding hypointensity on the ADC map. Periventricular and subcortical white matter T2 FLAIR hyperintensities demonstrated bilaterally. Midline shift: None. Cerebellum: Within normal limits. Brainstem: Within normal limits. OTHER: Calvarium: Normal marrow signal. Vascular system: Satisfactory flow voids within the anterior and posterior circulation. Visualized Paranasal sinuses: Within normal limits. Visualized Orbits: Within normal limits. Visualized upper cervical spine: Within normal limits. Sella and skull base: Within normal limits. IMPRESSION: * Small focus of hyperintensity within the right thalamus compatible with an ischemic lacunar infarct. There is minimal peripheral diffusion restriction suggesting late subacute timeframe. * No acute intracranial hemorrhage. * Chronic microvascular ischemic disease. Approved by:Chaka Barrett on 04/30/2018 6:55 PM EDT. I, Cornelius Bennett, have reviewed the images and report and concur with these findings. Electronically signed by:Cornelius Bennett. Transcribed by: [email or web address], User Resident: ADIS BARRETT Electronically Signed by: CORNELIUS BENNETT @ 05/01/2018 03:45 PM I personally read this/these film(s) with this resident Normal [facility] Comment on above: Order Comment: No: D o not add to previous draw PHOSPHORUS BLOODon 8 Phosphate mass conc 4.7 mg/dL Normal 2.5-5.0 [facility] Comment on above: Order Comment: No: D o not add to previous draw Performed By: #### 5 7307, [id number] #### [facility] [address] [place] [address], [facility] POC GLUCOSE LABon 04-30-2018 Glucose mass conc 302 mg/dL High 70-100 [facility] Comment on above: Performed By: #### 5 7307, 03528 #### [facility] [address] [place] [address], [place] Glucose mass conc 309 mg/dL High 70-100 [facility] Comment on above: Performed By: #### 5 7307, 87102 #### [facility] [address] [place] [address], [facility] Glucose mass conc 387 mg/dL High 70-100 [facility] Comment on above: Performed By: #### 5 7307, 72088 #### [facility] [address] [place] [address], [facility] Glucose mass conc 229 mg/dL High 70-100 [facility] Comment on above: Performed By: #### 5 7307, 85916 #### [facility] [address] [place] [address], [facility] Glucose mass conc 329 mg/dL High 70-100 [facility] Comment on above: Performed By: #### 5 7307, 93749 #### [facility] [address] [place] [address], [facility] BASIC METABOLIC PANELon 07-3 0 Calcium mass conc 8.8 mg/dL Normal 8.6-10.3 [facility] Comment on above: Order Comment: No: D o not add to previous draw Performed By: #### 5 0608 #### [facility] [address] [place] [address], [place] Chloride molar conc 103 mmol/L Normal 98-107 [facility] Comment on above: Order Comment: No: D o not add to previous draw Performed By: #### 5 0608 #### [facility] [address] [place] [address], [place] CO2 molar conc 20 mmol/L Low 21-31 [facility] Comment on above: Order Comment: No: D o not add to previous draw Performed By: #### 5 0608 #### [facility] [address] [place] [address], [facility] Creatinine mass conc 0.86 mg/dL Normal 0.60-1.20 [facility] Comment on above: Order Comment: No: D o not add to previous draw Performed By: #### 5 0608 #### [facility] [address] [place] [address], [place] GFR/1.73 sq M predicted among blacks MDRD vol rate/area (S/P/Bld) mL/min/{1.73_m2} Normal >60 [facility] Comment on above: Order Comment: No: D o not add to previous draw Performed By: #### 5 0608 #### [facility] [address] [place] [address], [place] GFR/1.73 sq M predicted among non-blacks MDRD vol rate/area (S/P/Bld) mL/min/{1.73_m2} Normal >60 [facility] Comment on above: Order Comment: No: D o not add to previous draw Performed By: #### 5 0608 #### [facility] [address] [place] [address], [place] Glucose mass conc 266 mg/dL High 70-100 [facility] Comment on above: Order Comment: No: D o not add to previous draw Performed By: #### 5 0608 #### [facility] [address] [place] [address], [place] Potassium molar conc 4.0 mmol/L Normal 3.5-5.1 [facility] Comment on above: Order Comment: No: D o not add to previous draw Performed By: #### 5 0608 #### [facility] [address] [place] [address], [place] Sodium molar conc 133 mmol/L Low 136-145 [facility] Comment on above: Order Comment: No: D o not add to previous draw Performed By: #### 5 0608 #### [facility] [address] [place] [address], [place] Urea nitrogen mass conc 20 mg/dL Normal 7-25 [facility] Comment on above: Order Comment: No: D o not add to previous draw Performed By: #### 5 0608 #### [facility] [address] [place] [address], [facility] CBC COMPLETE BLOOD COUNTon 0 04-29-2018 Erythrocyte distribution width Ratio (RBC) 12.9 % Normal 11.5-15.0 [facility] Comment on above: Order Comment: No: D o not add to previous draw Performed By: #### 5 0608 #### [facility] [address] [place] [address], [facility] Hematocrit Volume Fraction (Bld) 39.9 % Normal 36.0-45.0 [facility] Comment on above: Order Comment: No: D o not add to previous draw Performed By: #### 5 0608 #### [facility] [address] [place] [address], [facility] Hemoglobin mass conc (Bld) 12.8 g/dL Normal 12.0-15.0 [facility] Comment on above: Order Comment: No: D o not add to previous draw Performed By: #### 5 0608 #### [facility] [address] [place] [address], [facility] MCH Entitic mass (RBC) 29.6 pg Normal 27.0-33.0 [facility] Comment on above: Order Comment: No: D o not add to previous draw Performed By: #### 5 0608 #### [facility] [address] [place] [address], [facility] MCHC mass conc (RBC) 32.1 g/dL Normal 32.0-35.0 [facility] Comment on above: Order Comment: No: D o not add to previous draw Performed By: #### 5 0608 #### [facility] [address] [place] [address], [facility] MCV Entitic volume (RBC) 92.1 fL Normal 82.0-98.0 [facility] Comment on above: Order Comment: No: D o not add to previous draw Performed By: #### 5 0608 #### [facility] [address] [place] [address], [facility] Nucleated RBC/100 WBC Ratio (Bld) 0 % Normal 0-0 [facility] Comment on above: Order Comment: No: D o not add to previous draw Performed By: #### 5 0608 #### [facility] [address] [place] [address], [facility] PLAT CNT 267 10*3/uL Normal 150-400 [facility] Comment on above: Order Comment: No: D o not add to previous draw Performed By: #### 5 0608 #### [facility] [address] [place] [address], [facility] RBC #/vol (Bld) 4.33 10*6/uL Normal 3.80-5.00 [facility] Comment on above: Order Comment: No: D o not add to previous draw Performed By: #### 5 0608 #### [facility] [address] [place] [address], [facility] WBC #/vol (Bld) 7.66 10*3/uL Normal 4.00-10.60 [facility] Comment on above: Order Comment: No: D o not add to previous draw Performed By: #### 5 0608 #### [facility] [address] [place] [address], [facility] HEMOGLOBIN A1Con 04-29-2018 Hemoglobin A1c/Hemoglobin.total mass fraction (Bld) 13.7 % High 4.0-6.0 [facility] Comment on above: Order Comment: No: D o not add to previous draw Performed By: #### 5 0608 #### [facility] [address] [place] [address], [facility] Hemoglobin A1c/Hemoglobin.total mass fraction (Bld) 346 mg/dL High 70-126 [facility] Comment on above: Order Comment: No: D o not add to previous draw Performed By: #### 5 0608 #### [facility] [address] [place] [address], [facility] LIPID PROFILEon 04-29-2018 Cholesterol in HDL mass conc 25 mg/dL Normal 23-92 [facility] Comment on above: Order Comment: No: D o not add to previous draw Result Comment: Slig ht variation in normal range could be due to gender and/or age. HDL CHOLESTEROL REFERENCE RANGE: 20 years and older Cardiovascular Risk > or =60 mg/dL Desirable 40 TO 59 mg/dL Low Risk <40 mg/dL High Risk Performed By: #### 5 0608 #### [facility] [address] [place] [address], [facility] Cholesterol in LDL mass conc 'UNABLE TO CALC Normal 0-130 [facility] Comment on above: Order Comment: No: D o not add to previous draw Result Comment: LDL IS A CALCULATION LDL IS ONLY VALID IF THE TRIG IS LESS THAN 400. Performed By: #### 5 0608 #### [facility] [address] [place] [address], [facility] Cholesterol mass conc 115 mg/dL Low 120-200 [facility] Comment on above: Order Comment: No: D o not add to previous draw Result Comment: CHOL ESTEROL REFERENCE RANGE: 20 YEARS AND OLDER CARDIOVASCULAR RISK Less than 200 mg/dl Low Risk 200 to 239 mg/dl Borderline Risk 240 mg/dl and greater High Risk Performed By: #### 5 0608 #### [facility] [address] [place] [address], [facility] Cholesterol.total/Cho lesterol in HDL mass ratio 4.6 {ratio} High .0-4.5 [facility] Comment on above: Order Comment: No: D o not add to previous draw Performed By: #### 5 0608 #### [facility] [address] [place] [address], [facility] NON-HDL CHOLESTEROL 90 mg/dL Normal [facility] Comment on above: Order Comment: No: D o not add to previous draw Performed By: #### 5 0608 #### [facility] [address] [place] [address], [facility] Triglyceride mass conc 498 mg/dL High 40-149 [facility] Comment on above: Order Comment: No: D o not add to previous draw Result Comment: TRIG LYCERIDE REFERENCE RANGE: 20 YEARS AND OLDER CARDIOVASCULAR RISK LESS THAN 150 mg/dl LOW RISK 150 TO 199 mg/dl BORDERLINE RISK 200 mg/dl AND GREATER HIGH RISK Performed By: #### 5 0608 #### [facility] [address] [place] [address], [facility] VLDL CHOL 100 mg/dL High 0-40 [facility] Comment on above: Order Comment: No: D o not add to previous draw Performed By: #### 5 0608 #### [facility] [address] [place] [address], [facility] MAGNESIUM BLOODon 04-29-2018 Magnesium mass conc 1.8 mg/dL Low 1.9-2.7 [facility] Comment on above: Order Comment: No: D o not add to previous draw Performed By: #### 5 0608 #### [facility] [address] [place] [address], [facility] PHOSPHORUS BLOODon 8 Phosphate mass conc 5.5 mg/dL High 2.5-5.0 [facility] Comment on above: Order Comment: No: D o not add to previous draw Performed By: #### 5 0608 #### [facility] [address] [place] [address], [facility] POC GLUCOSE LABon 04-29-2018 Glucose mass conc 287 mg/dL High 70-100 [facility] Comment on above: Performed By: #### 5 7307, 95598 #### [facility] [address] [place] [address], [place] Glucose mass conc 317 mg/dL High 70-100 [facility] Comment on above: Performed By: #### 5 0608 #### [facility] [address] [place] [address], [facility] Glucose mass conc 267 mg/dL High 70-100 [facility] Comment on above: Performed By: #### 5 0608 #### [facility] [address] [place] [address], [facility] Glucose mass conc 347 mg/dL High 70-100 [facility] Comment on above: Performed By: #### 8 5499 #### [facility] [address] [place] [address], [facility] APTTon 04-28-2018 aPTT Coag time (Bld) 28.1 s Normal 25.0-35.0 [facility] Comment on above: Order Comment: No: D o not add to previous draw Result Comment: ALL RESULTS MUST BE INTERPRETED WITH RESPECT TO BLOOD DRAWING ARTIFACT OR DILUTION ERROR OF ANTICOAGULANT AT THE TIME OF SAMPLING. THE APTT SHOULD NOT BE USED TO MONITOR UNFRACTIONATED HEPARIN THERAPY, THIS LABORATORY NO LONGER HAS AN ESTABLISHED THERAPEUTIC RANGE BASED ON THE APTT. IT IS RECOMMENDED THAT THE [facility] - HEPARIN ASSAY (ANTI-XA ACTIVITY) BE USED FOR THIS PURPOSE. Performed By: #### 5 7307, 85416 #### [facility] [address] [place] [address], [facility] CALCIUM IONIZED CBGLon 04-28 IONIZED CALCIUM 1.07 mmol/L Low 1.12-1.30 [facility] Comment on above: Performed By: #### 7 0066 #### [facility] [address] [place] [address], [facility] CBC COMPLETE BLOOD COUNTon 0 04-28-2018 Erythrocyte distribution width Ratio (RBC) 12.8 % Normal 11.5-15.0 [facility] Comment on above: Order Comment: No: D o not add to previous draw Performed By: #### 5 0608 #### [facility] [address] [place] [address], [facility] Hematocrit Volume Fraction (Bld) 41.3 % Normal 36.0-45.0 [facility] Comment on above: Order Comment: No: D o not add to previous draw Performed By: #### 5 0608 #### [facility] [address] [place] [address], [facility] Hemoglobin mass conc (Bld) 13.8 g/dL Normal 12.0-15.0 [facility] Comment on above: Order Comment: No: D o not add to previous draw Performed By: #### 5 0608 #### [facility] [address] [place] [address], [facility] MCH Entitic mass (RBC) 30.1 pg Normal 27.0-33.0 [facility] Comment on above: Order Comment: No: D o not add to previous draw Performed By: #### 5 0608 #### [facility] [address] [place] [address], [facility] MCHC mass conc (RBC) 33.4 g/dL Normal 32.0-35.0 [facility] Comment on above: Order Comment: No: D o not add to previous draw Performed By: #### 5 0608 #### [facility] [address] [place] [address], [facility] MCV Entitic volume (RBC) 90.2 fL Normal 82.0-98.0 [facility] Comment on above: Order Comment: No: D o not add to previous draw Performed By: #### 5 0608 #### [facility] [address] [place] [address], [facility] Nucleated RBC/100 WBC Ratio (Bld) 0 % Normal 0-0 [facility] Comment on above: Order Comment: No: D o not add to previous draw Performed By: #### 5 0608 #### [facility] [address] [place] [id number], [facility] PLAT CNT 261 10*3/uL Normal 150-400 [facility] Comment on above: Order Comment: No: D o not add to previous draw Performed By: #### 5 0608 #### [facility] [address] [place] [address], [facility] RBC #/vol (Bld) 4.58 10*6/uL Normal 3.80-5.00 [facility] Comment on above: Order Comment: No: D o not add to previous draw Performed By: #### 5 0608 #### [facility] [address] [place] [address], [facility] WBC #/vol (Bld) 7.28 10*3/uL Normal 4.00-10.60 [facility] Comment on above: Order Comment: No: D o not add to previous draw Performed By: #### 5 0608 #### [facility] [address] [place] [address], [facility] COMP METABOLIC PANELon 04-28 Albumin mass conc 3.5 g/dL Normal 3.5-5.7 [facility] Comment on above: Order Comment: No: D o not add to previous draw Performed By: #### 4 1000, 95651, 87798, 83439 #### [facility] [address] [place] [id number], [facility] ALKALINE PHOSPH 68 IU/L Normal 34-104 [facility] Comment on above: Order Comment: No: D o not add to previous draw Performed By: #### 4 1000, 19778, 10020, 81638 #### [facility] [address] [place] [address], [facility] ALT enzyme act/vol 22 U/L Normal 7-52 [facility] Comment on above: Order Comment: No: D o not add to previous draw Performed By: #### 4 1000, 52391, 33904, 14503 #### [facility] [address] [place] [address], [place] AST enzyme act/vol 19 U/L Normal 13-39 [facility] Comment on above: Order Comment: No: D o not add to previous draw Performed By: #### 4 1000, 83952, 78125, 58884 #### [facility] [address] [place] [address], [place] Bilirubin mass conc 0.4 mg/dL Normal 0.3-1.0 [facility] Comment on above: Order Comment: No: D o not add to previous draw Performed By: #### 4 1000, 11319, 58121, 50774 #### [facility] [address] [place] [address], [place] Calcium mass conc 8.9 mg/dL Normal 8.6-10.3 [facility] Comment on above: Order Comment: No: D o not add to previous draw Performed By: #### 4 1000, 01894, 30723, 10392 #### [facility] [address] [place] [address], [place] Chloride molar conc 99 mmol/L Normal 98-107 [facility] Comment on above: Order Comment: No: D o not add to previous draw Performed By: #### 4 1000, 07255, 59179, 97726 #### [facility] [address] [place] [address], [place] CO2 molar conc 21 mmol/L Normal 21-31 [facility] Comment on above: Order Comment: No: D o not add to previous draw Performed By: #### 4 1000, 29280, 76047, 96105 #### [facility] [address] [place] [address], [place] Creatinine mass conc 0.94 mg/dL Normal 0.60-1.20 [facility] Comment on above: Order Comment: No: D o not add to previous draw Performed By: #### 4 1000, 93372, 31477, 87288 #### [facility] [address] [place] [address], [place] GFR/1.73 sq M predicted among blacks MDRD vol rate/area (S/P/Bld) mL/min/{1.73_m2} Normal >60 [facility] Comment on above: Order Comment: No: D o not add to previous draw Performed By: #### 4 1000, 26922, 69524, 01828 #### [facility] [address] [place] [address], [place] GFR/1.73 sq M predicted among non-blacks MDRD vol rate/area (S/P/Bld) mL/min/{1.73_m2} Normal >60 [facility] Comment on above: Order Comment: No: D o not add to previous draw Performed By: #### 4 1000, 32149, 31510, 71594 #### [facility] [address] [place] [address], [place] Glucose mass conc 317 mg/dL High 70-100 [facility] Comment on above: Order Comment: No: D o not add to previous draw Performed By: #### 4 1000, 27561, 96964, 29504 #### [facility] [address] [place] [address], [place] Potassium molar conc 4.3 mmol/L Normal 3.5-5.1 [facility] Comment on above: Order Comment: No: D o not add to previous draw Performed By: #### 4 1000, 38360, 75905, 83167 #### [facility] [address] [place] [address], [place] Protein mass conc 6.7 g/dL Normal 6.0-8.3 [facility] Comment on above: Order Comment: No: D o not add to previous draw Performed By: #### 4 1000, 49463, 63667, 01333 #### [facility] [address] [place] [address], [place] Sodium molar conc 131 mmol/L Low 136-145 [facility] Comment on above: Order Comment: No: D o not add to previous draw Performed By: #### 4 1000, 82791, 93973, 18954 #### [facility] [address] Urea nitrogen mass conc 17 mg/dL Normal 7-25 [facility] Comment on above: Order Comment: No: D o not add to previous draw Performed By: #### 4 1000, 08925, 51405, 38524 #### [address] [address], [facility] CTA HEADon 04-28-2018 CTA HEAD [facility] Department of Radiology [address] [place] [address] [phone] Patient Name: KYLE POWELL : 1955 Sex: F Age: Race: White Pt. Location: OUTP Patient Status: I Ordered Date: 04/28/2018 4:55:00 PM Completed Date: 04/28/2018 05:48 PM Requesting Provider: XIMENA PURCELL Attending Provider: KARRIE CHANDRA Report Copy To: Signs & Symptoms: Stroke(CVA) History: Patient history not available Comments: R/O CVA Exam: CTA HEAD CTA NECK, CTA HEAD 04/28/2018 5:48 PM EDT SIGNS AND SYMPTOMS: Stroke TECHNOLOGIST COMMENTS: slurred speech QUESTION FOR THE RADIOLOGIST: PROTOCOL: Axial CT angiography images were obtained with IV contrast. CONTRAST: Contrast: OMNIPAQUE 350 (LOCM), 100 milliliter, Intravenous TECHNIQUE: Multi-detector CT angiography axial slices of the head and neck were obtained before and during intravenous administration of IV contrast material. Sagittal, coronal, and 3-D reconstructions were performed and viewed on a separate workstation. Appropriate CT dose lowering techniques were utilized. COMPARISON: None FINDINGS: Noncontrast head CT: There is no shift of the midline structures, acute intracranial bleeding, mass effects, or evidence of acute ischemia. Bilateral area of hypoattenuation in the basal ganglia and right thalamus likely represent lacunar infarcts. The ventricular system is normal in size. The brainstem and the cerebellum are unremarkable. The visualized intraorbital contents, the visualized paranasal sinuses, and the visualized soft tissue in the infratemporal spaces show no abnormality. The osseous structures in the skull base and the calvarium show no acute abnormality. Calcification along the posterior falx cerebri which may represent benign calcification versus calcified small meningioma. CTA Head: There are normal anterior and middle cerebral arteries. The anterior communicating artery is patent. The posterior communicating arteries are present on the left and hypoplastic on the right. The superior cerebellar arteries, posterior inferior cerebellar arteries, and the basilar artery are within normal limits. The posterior cerebral arteries are unremarkable. Hypoplastic right PICA The deep venous system and dural venous systems appear to be patent. CTA Neck: There is a normal 3-vessel arch. The subclavian arteries are normal in course and caliber. The vertebral arteries are normal in course and caliber arising from the subclavian arteries. The common and internal carotid arteries are normal in course and caliber. Prominent right external jugular vein, sigmoid, and transverse sinus, a normal variant. Degenerative changes in the lower cervical and upper thoracic spine. The lung apices revealed mild centrilobular emphysematous changes. Small calcified granulomatous lymph node in the left hilum and AP window. Incidental LAD stent in place. 5 mm calcified granuloma in the superior segment of the left lower lobe in axial image 1114 adjacent to the posterior pleura. IMPRESSION: 1. No acute intracranial pathology. 2. No evidence of focal stenosis, aneurysmal dilatation, dissection or occlusion. 3. Hypoattenuation in bilateral basal ganglia and right thalamus, likely represent lacunar infarcts. 4. Granulomatous disease in the left lung as described above Approved by:Anny Schafer on 04/28/2018 6:42 PM EDT. I, Leonides Velásquez, have reviewed the images and report and concur with these findings. Electronically signed by:Leonides Velásquez. Transcribed by: [email or web address], User Resident: ANNY SCHAFER Electronically Signed by: LEONIDES DIDIER @ 04/29/2018 09:17 AM I personally read this/these film(s) with this resident Normal [facility] Comment on above: Order Comment: No: D o not add to previous draw CTA NECKon 04-28-2018 CTA NECK [facility] Department of Radiology [address] [place] [phone] Patient Name: KYLE POWELL : 1955 Sex: F Age: Race: White Pt. Location: OUTP Patient Status: I Ordered Date: 04/28/2018 4:50:00 PM Completed Date: 04/28/2018 05:48 PM Requesting Provider: XIMENA PURCELL Attending Provider: KARRIE CHANDRA Report Copy To: Signs & Symptoms: Stroke History: Patient history not available Comments: Exam: CTA NECK CTA NECK, CTA HEAD 04/28/2018 5:48 PM EDT SIGNS AND SYMPTOMS: Stroke TECHNOLOGIST COMMENTS: slurred speech QUESTION FOR THE RADIOLOGIST: PROTOCOL: Axial CT angiography images were obtained with IV contrast. CONTRAST: Contrast: OMNIPAQUE 350 (LOCM), 100 milliliter, Intravenous TECHNIQUE: Multi-detector CT angiography axial slices of the head and neck were obtained before and during intravenous administration of IV contrast material. Sagittal, coronal, and 3-D reconstructions were performed and viewed on a separate workstation. Appropriate CT dose lowering techniques were utilized. COMPARISON: None FINDINGS: Noncontrast head CT: There is no shift of the midline structures, acute intracranial bleeding, mass effects, or evidence of acute ischemia. Bilateral area of hypoattenuation in the basal ganglia and right thalamus likely represent lacunar infarcts. The ventricular system is normal in size. The brainstem and the cerebellum are unremarkable. The visualized intraorbital contents, the visualized paranasal sinuses, and the visualized soft tissue in the infratemporal spaces show no abnormality. The osseous structures in the skull base and the calvarium show no acute abnormality. Calcification along the posterior falx cerebri which may represent benign calcification versus calcified small meningioma. CTA Head: There are normal anterior and middle cerebral arteries. The anterior communicating artery is patent. The posterior communicating arteries are present on the left and hypoplastic on the right. The superior cerebellar arteries, posterior inferior cerebellar arteries, and the basilar artery are within normal limits. The posterior cerebral arteries are unremarkable. Hypoplastic right PICA The deep venous system and dural venous systems appear to be patent. CTA Neck: There is a normal 3-vessel arch. The subclavian arteries are normal in course and caliber. The vertebral arteries are normal in course and caliber arising from the subclavian arteries. The common and internal carotid arteries are normal in course and caliber. Prominent right external jugular vein, sigmoid, and transverse sinus, a normal variant. Degenerative changes in the lower cervical and upper thoracic spine. The lung apices revealed mild centrilobular emphysematous changes. Small calcified granulomatous lymph node in the left hilum and AP window. Incidental LAD stent in place. 5 mm calcified granuloma in the superior segment of the left lower lobe in axial image 1114 adjacent to the posterior pleura. IMPRESSION: 1. No acute intracranial pathology. 2. No evidence of focal stenosis, aneurysmal dilatation, dissection or occlusion. 3. Hypoattenuation in bilateral basal ganglia and right thalamus, likely represent lacunar infarcts. 4. Granulomatous disease in the left lung as described above Approved by:Anny Schafer on 04/28/2018 6:42 PM EDT. I, Leonides Velásquez, have reviewed the images and report and concur with these findings. Electronically signed by:Leonides Velásquez. Transcribed by: [email or web address], User Resident: ANNY SCHAFER Electronically Signed by: LEONIDES VELÁSQUEZ @ 04/29/2018 09:17 AM I personally read this/these film(s) with this resident Normal [facility] MAGNESIUM BLOODon 04-28-2018 Magnesium mass conc 1.7 mg/dL Low 1.9-2.7 [facility] Comment on above: Order Comment: No: D o not add to previous draw Performed By: #### 4 1000, 84148, 69301, 67516 #### [facility] [address] [place] [address], [facility] PHOSPHORUS BLOODon 8 Phosphate mass conc 4.4 mg/dL Normal 2.5-5.0 [facility] Comment on above: Order Comment: No: D o not add to previous draw Performed By: #### 4 1000, 92516, 62646, 69259 #### [facility] [address] [place] [address], [facility] POC GLUCOSE LABon 04-28-2018 Glucose mass conc 325 mg/dL High 70-100 [facility] Comment on above: Performed By: #### 8 5499 #### [facility] [address] [place] [address], [facility] PROTHROMBIN TIMEon 8 INR Coag RelTime (PPP) 1.03 {INR} Normal 0.91-1.16 [facility] Comment on above: Order Comment: No: D o not add to previous draw Result Comment: ACCC P RECOMMENDED INR FOR WARFARIN THERAPY -------- ------- CONDITION INR PROPHYLAXIS OF VENOUS THROMBOSIS 2-3 (HIGH-RISK SURGERY) TREATMENT OF VENOUS THROMBOSIS 2-3 TREATMENT OF PULMONARY EMBOLISM 2-3 PREVENTION OF SYSTEMIC EMBOLISM: 2-3 ACUTE MYOCARDIAL INFARCTION TISSUE HEART VALVES VALVULAR HEART DISEASE ATRIAL FIBRILLATION RECURRENT SYSTEMIC EMBOLISM MECHANICAL HEART VALVE 2.5-3.5 FROM: ORAL ANTICOAGULANTS. MECHANISM OF ACTION, CLINICAL EFFECTIVENESS, AND OPTIMAL THERAPEUTIC RANGE. CHEST 1995;108:231S-246S. Performed By: #### 5 7307, 37743 #### [facility] [address] Prothrombin time (PT) Coag time (PPP) 13.5 s Normal 12.3-14.8 [facility] Comment on above: Order Comment: No: D o not add to previous draw Result Comment: ALL RESULTS MUST BE INTERPRETED WITH RESPECT TO BLOOD DRAWING ARTIFACT OR DILUTION ERROR OF ANTICOAGULANT AT THE TIME OF SAMPLING. Performed By: #### 5 7307, 44070 #### [facility] [address] TROPONIN-Ion 04-28-2018 Troponin I.cardiac mass conc 0.03 ng/mL Normal 0.00-0.04 [facility] Comment on above: Result Comment: REFE RENCE RANGES: 0.00 - 0.04 ng/ml NORMAL 0.05 - 0.50 ng/ml INDETERMINATE > 0.50 ng/ml CONSISTENT WITH AN M.I. Performed By: #### 4 1000, 22881, 65947, 79918 #### [facility] [address] CNOVon 10-26-2017 CNOV Office Visit (GASTBD) [facility]OOK[facility]OWELL ([id number]) 1955 [facility]/26/17 8:20 AM CARLOS EDUARDO VAN GASTBD During your visit today, we recorded the following information about you: Temperature Pulse Respiration Blood pressure 97.7 degrees 59/minute 16/minute 136/71 Weight Height 110.7 kg 1.6 Liv Bailey LEDY [facility]2017 7[facility]52 [facility] HOURS: Lab is open 7:30am - 6pm , 7:30am -5:30pm Sunday, and 8am -12pmon Saturdays.Routine Lab Orders 60 days after they are entered. If your lab ordersexpire, you may be required to wait in the lab while they are reinstated.FUTURE ORDERS are lab tests to be completed on the ?EXPECTED? date. Theseorders 60 days after the expected date.STANDING ORDERS are recurring orders with an expiration date. The intervalwill indicate how often the test should be completed.FASTING LAB means nothing to eat or drink (except water) 10-12 hours beforeyour blood is drawn.CT/MRI/IVP If you have one of these radiology exams ordered along with bloodwork,u please complete the blood work at least one day prior to the scheduledexam.[facility] RADIOLOGY: Room 101-SRadiology hours of operation :Sunday - : 8am-8pmFriday: 8a-at: 8am-12pmEXPRESS CARE WALK-IN CLINIC HOURS: Room 100-SHOURS OF OPERATIONS Sunday and Sunday 8:00am to 4:00pm, Sunday through Sunday6:00am to 9:00pm. Express care is for patients 14 years and older.Express CareLOCATIONS, HOURS OF OPERATION and CURRENT WAIT TIMES,visit the following link for details.[email or web address] R[types][0]=Express%20Car e%20ClinicsAND-amp;Reason s for visits limited to:? Cold and Flu symptoms? Conjunctivitis ([facility])? Ear and throat infections? Minor bumps and cuts? Seasonal allergies? Simple sprains and strains? Skin rashes? Sinus infections? Urinary tract infections (Patients must be at least 5 years old)? Upper respiratory infections.To schedule a Specialty appointment or schedule a test, please [phone], and the glass blowing lathe operator will will assist you.Sheri Gregory Lynn VILLAFANA 10/26/2017 8:02 AM SignedNAME: Kyle Borja: 62 year oldReferred by: SELFReferred for: an opinion regarding diarrhea and my final recommendations willbe communicated back to the requesting physician by way of shared MedicalRecord.GENERAL ROS:Colon polyps: NoColon cancer: NoOther cancer: NoRadiation / Chemotherapy: NoCrohn's disease / Ulcerative colitis: NoHigh cholesterol or triglycerides: YesUlcers: NoGallstones: NoHepatitis / jaundice: NoHeart Disease: NoLung Disease: NoLiver problems:NoThyroid disease: NoKidney stones: NoPancreatitis: NoDiabetes: YesArthritis: NoRheumatic fever:NoGastrointestinal bleeding: NoDepression or other mental illness:NoOther personal illness:NoFAMILY HISTORY:Liver problems: NoColitis: NoColon cancer:Yes, mother,maternal grandfatherOther cancers: Yes, paternal grandmother melenomaNo past surgical history on file.GI SPECIFIC ROS:Difficulty swallowing / foods sticking in throat:YesHeartburn:NoHoa rseness: YesChronic cough: NoRegurgitation: YesChest pain: {NoFilling up quickly at meals: YesLoss of appetite:YesNausea: NoVomiting: YesAbdominal pain:YesRecent change in bowel movements: YesBloody or black, bowel movements: NoConstipation: YesDiarrhea: {YesLoss of control of bowel movements: NoNight sweats, fever, chills: NoThought or memory problems: Yes, history of strokeFluid in abdomen (ascites):NoProminent leg swelling:NoVomiting blood: NoRecent change in weight: NoCURRENT MEDICATIONS:Current Outpatient Prescriptions:diphenoxyla te-atropine (LOMOTIL) 2.5-0.025 mg per tablet Take 1 tablet by mouthfour times daily as needed.ISOSORBIDE DINITRATE ORAL Take 1 tablet by mouth once daily. Unsure of doseclopidogrel (PLAVIX) 75 mg tablet Take 75 mg by mouth once daily.carvedilol (COREG) 25 mg tablet Take 25 mg by mouth twice daily with meals.buPROPion SR (ZYBAN SR; WELLBUTRIN SR) 150 mg 12 hr tablet Take 150 mg by mouthonce daily.atorvastatin (LIPITOR) 80 mg tablet Take 80 mg by mouth once daily.amLODIPine (NORVASC) 10 mg tablet Take 10 mg by mouth once daily.gabapentin (NEURONTIN) 300 mg capsule Take 300 mg by mouth three times daily.metFORMIN (GLUCOPHAGE) 1,000 mg tablet Take 1,000 mg by mouth twice daily withmeals. On hold for nowinsulin glargine (LANTUS) 100 unit/mL injection Inject subcutaneously daily atbedtime. 50 units dailyNo current facility-administered medications for this visit.ALLERGIES:Review of patient's allergies indicates no known allergies.PERSONAL HABITS:Tobacco: NoAlcohol: NoCoffee: Yes, How Many? 1 a monthThe above documentation completed by Sheri BEY agree with the Chief Complaint, ROS, and Past Histories independentlygathered by the clinical support services coordinator and the remaining scribed noteaccurately describes my personal service to the patient. Carlos Eduardo Van MD PRESENTING COMPLAINT ANDamp; HISTORY:Patient presents with:ConsultHistory: The patient presents with a history of insulin-dependent diabetesmellitus history significant coronary artery disease. He has a history ofbenign MIs 5 CVAs. She is also status post placement of 3 coronary arterystents. At that time the stents replaced she also to episodes of congestiveheart failure.Prior to 2 months ago, the patient did experience constipation with a bowelmovement frequency of 1 bowel movement every 3-4 days to 1 bowel movement perweek. At one point, she only had 1 bowel movement in 3 weeks and that bowelmovement was scybalous.For the past 2 months she has been having more frequent liquid stools whichhave occurred immediately after eating up to 45 minutes after eating. She hasbeen eating a liquid diet for 2 weeks. During this period of time she can haveup to 6 to 8 bowel movements at one time Also 2 weeks ago she discontinuedtaking metformin which has been taking for 16 years. During this past 2 weeks,she has not had urgency to have a bowel movement as she did previously.His appetite is good and her weight has been stable. There is no history ofnausea, vomiting, heartburn, hematemesis. In the past, when eating solid food,she could have intermittent solid food dysphagia. There is no history of PUD,cholelithiasis, hepatic or pancreatic disease.There is no history rectal bleeding. The patient had a colonoscopy performed 5years ago which was unremarkable. She has a family history of both her motherand maternal grandfather passing away from colon cancer.PHYSICAL EXAMINATION:General Appearance: Cooperative, in no acute distress, alert.Eyes: Conjunctivas/corneas clear.Oropharynx: Lips, tongue, and oral mucosa normal.Thyroid: No goiter.Lungs: Lungs clear to auscultation, no wheezing or rhonchi.Heart: RRR without murmur, gallop or rubs.Abdomen: Bowel sounds normal. Soft with minimal epigastric tenderness topalpation. No masses or organomegaly.Extremities: Normal, with no deformities or edema.Skin: No rashes or lesions.Lymph:No cervical or supraclavicular adenopathy.Pulses: normalBruits: No.Joints: No deformity. Good range of motion.IMPRESSION:New onset diarrhea for 2 months which has improved with discontinuing metforminand eating a liquid diet. Her frequency and urgency have improved. Prior tothat time she suffered from constipation.Intermittent solid food dysphagiaHistory coronary artery disease status post multiple ID's with history ofcoronary artery stent placementInsulin-dependen t diabetes mellitusPLAN:Patient is now eat low residue dietVirtual visit in 3 weeks-Will scheduleThe majority of the visit was spent counseling and/or coordinating care for thepatient. [id number] time was 60 minutes.STAFF PHYSICIANDaSita White Provider: SELF [200]Allergies As of Date: 10/26/2017(No Known Allergies)Date Reviewed: 10/26/2017Reviewed by: Sheri Bailey LPN - Fully AssessedReason for Visit: Consult [502]Primary Visit Diagnosis:Diarrhea, unspecified type [R19.7] Other Visit Diagnoses:IDDM (insulin dependent diabetes mellitus) (HCC) [E11.9, Z79.4] CAD in rosebud artery [I25.10]Prescriptions as of 10/26/2017 Sig: DIPHENOXYLATE-ATROPINE 2.5 MG* Take 1 tablet by mouth four t* ISOSORBIDE DINITRATE ORAL Take 1 tablet by mouth once d* CLOPIDOGREL 75 MG TABLET Take 75 mg by mouth once christen* CARVEDILOL 25 MG TABLET Take 25 mg by mouth twice eneida* BUPROPION HCL SR 150 MG TABLE* Take 150 mg by mouth once eneida* ATORVASTATIN 80 MG TABLET Take 80 mg by mouth once christen* AMLODIPINE 10 MG TABLET Take 10 mg by mouth once christen* GABAPENTIN 300 MG CAPSULE Take 300 mg by mouth three ti* METFORMIN 1,000 MG TABLET Take 1,000 mg by mouth twice * INSULIN GLARGINE 100 UNIT/ML * Inject subcutaneously daily a*Problem List As Of Date: 10/26/2017(None) Other instructions from your clinician: [facility] FACTS: Room 14-N LAB HOURS: Lab is open 7:30am - 6pm , 7:30am -5:30pm Sunday, and 8am -12pm on Saturdays. Routine Lab Orders 60 days after they are entered. If your lab orders , you may be required to wait in the lab while they are reinstated. FUTURE ORDERS are lab tests to be completed on the ?EXPECTED? date. These orders 60 days after the expected date. STANDING ORDERS are recurring orders with an expiration date. The interval will indicate how often the test should be completed. FASTING LAB means nothing to eat or drink (except water) 10-12 hours before your blood is drawn. CT/MRI/IVP If you have one of these radiology exams ordered along with blood work,u please complete the blood work at least one day prior to the scheduled exam. [facility] RADIOLOGY: Room 101-S Radiology hours of operation : Sunday - : 8am-8pm Sunday: 8am-5pm Sunday: 8am-12pm [facility] HOURS: Room 100-S HOURS OF OPERATIONS Sunday and Sunday 8:00am to 4:00pm, Sunday through Sunday 6:00am to 9:00pm. Express care is for patients 14 years and older. Express [facility] LOCATIONS, HOURS OF OPERATION and CURRENT WAIT TIMES, visit the following link for details. [email or web address][types] [0]=Express%20Care%20Clin icsAND Reasons for visits limited to: ? Cold and Flu symptoms ? Conjunctivitis ([facility]) ? Ear and throat infections ? Minor bumps and cuts ? Seasonal allergies ? Simple sprains and strains ? Skin rashes ? Sinus infections ? Urinary tract infections (Patients must be at least 5 years old) ? Upper respiratory infections. To schedule a Specialty appointment or schedule a test, please call [phone], and the glass blowing lathe operator will will assist you. Status:Closed by CARLOS EDUARDO VAN MD on 10/26/17 [facility] PROGRESSon 10-26-2017 PROGRESS HNO ID: [id number] thor: Sheri Bailey LPNService: (none)Author Type: (none)Type: Progress NotesFiled: 10/26/2017 10:06 AMNote Text:NAME: Kyle Borja: 62 year oldReferred by: SELFReferred for: an opinion regarding diarrhea and my final recommendationswill be communicated back to the requesting physician by way of sharedMedical Record.GENERAL ROS:Colon polyps: NoColon cancer: NoOther cancer: NoRadiation / Chemotherapy: NoCrohn's disease / Ulcerative colitis: NoHigh cholesterol or triglycerides: YesUlcers: NoGallstones: NoHepatitis / jaundice: NoHeart Disease: NoLung Disease: NoLiver problems:NoThyroid disease: NoKidney stones: NoPancreatitis: NoDiabetes: YesArthritis: NoRheumatic fever:NoGastrointestinal bleeding: NoDepression or other mental illness:NoOther personal illness:NoFAMILY HISTORY:Liver problems: NoColitis: NoColon cancer:Yes, mother,maternal grandfatherOther cancers: Yes, paternal grandmother melenomaNo past surgical history on file.GI SPECIFIC ROS:Difficulty swallowing / foods sticking in throat:YesHeartburn:NoHoa rseness: YesChronic cough: NoRegurgitation: YesChest pain: {NoFilling up quickly at meals: YesLoss of appetite:YesNausea: NoVomiting: YesAbdominal pain:YesRecent change in bowel movements: YesBloody or black, bowel movements: NoConstipation: YesDiarrhea: {YesLoss of control of bowel movements: NoNight sweats, fever, chills: NoThought or memory problems: Yes, history of strokeFluid in abdomen (ascites):NoProminent leg swelling:NoVomiting blood: NoRecent change in weight: NoCURRENT MEDICATIONS:Current Outpatient Prescriptions:diphenoxyla te-atropine (LOMOTIL) 2.5-0.025 mg per tablet Take 1 tablet bymouth four times daily as needed.ISOSORBIDE DINITRATE ORAL Take 1 tablet by mouth once daily. Unsure ofdoseclopidogrel (PLAVIX) 75 mg tablet Take 75 mg by mouth once daily.carvedilol (COREG) 25 mg tablet Take 25 mg by mouth twice daily withmeals.buPROPion SR (ZYBAN SR; WELLBUTRIN SR) 150 mg 12 hr tablet Take 150 mg bymouth once daily.atorvastatin (LIPITOR) 80 mg tablet Take 80 mg by mouth once daily.amLODIPine (NORVASC) 10 mg tablet Take 10 mg by mouth once daily.gabapentin (NEURONTIN) 300 mg capsule Take 300 mg by mouth three timesdaily.metFORMIN (GLUCOPHAGE) 1,000 mg tablet Take 1,000 mg by mouth twice dailywith meals. On hold for nowinsulin glargine (LANTUS) 100 unit/mL injection Inject subcutaneouslydaily at bedtime. 50 units dailyNo current facility-administered medications for this visit.ALLERGIES:Review of patient's allergies indicates no known allergies.PERSONAL HABITS:Tobacco: NoAlcohol: NoCoffee: Yes, How Many? 1 a monthThe above documentation completed by Sheri BEY agree with the Chief Complaint, ROS, and Past Histories independentlygathered by the clinical support services coordinator and the remaining scribed noteaccurately describes my personal service to the patient. Carlos Eduardo Van MD PRESENTING COMPLAINT AND HISTORY:Patient presents with:ConsultHistory: The patient presents with a history of insulin-dependent diabetesmellitus history significant coronary artery disease. He has a history ofbenign MIs 5 CVAs. She is also status post placement of 3 coronary arterystents. At that time the stents replaced she also to episodes ofcongestive heart failure.Prior to 2 months ago, the patient did experience constipation with abowel movement frequency of 1 bowel movement every 3-4 days to 1 bowelmovement per week. At one point, she only had 1 bowel movement in 3 weeksand that bowel movement was scybalous.For the past 2 months she has been having more frequent liquid stoolswhich have occurred immediately after eating up to 45 minutes aftereating. She has been eating a liquid diet for 2 weeks. During this periodof time she can have up to 6 to 8 bowel movements at one time Also 2 weeksago she discontinued taking metformin which has been taking for 16 years.During this past 2 weeks, she has not had urgency to have a bowel movementas she did previously.His appetite is good and her weight has been stable. There is no historyof nausea, vomiting, heartburn, hematemesis. In the past, when eatingsolid food, she could have intermittent solid food dysphagia. There is nohistory of PUD, cholelithiasis, hepatic or pancreatic disease.There is no history rectal bleeding. The patient had a colonoscopyperformed 5 years ago which was unremarkable. She has a family history ofboth her mother and maternal grandfather passing away from colon cancer.PHYSICAL EXAMINATION:General Appearance: Cooperative, in no acute distress, alert.Eyes: Conjunctivas/corneas clear.Oropharynx: Lips, tongue, and oral mucosa normal.Thyroid: No goiter.Lungs: Lungs clear to auscultation, no wheezing or rhonchi.Heart: RRR without murmur, gallop or rubs.Abdomen: Bowel sounds normal. Soft with minimal epigastric tenderness topalpation. No masses or organomegaly.Extremities: Normal, with no deformities or edema.Skin: No rashes or lesions.Lymph:No cervical or supraclavicular adenopathy.Pulses: normalBruits: No.Joints: No deformity. Good range of motion.IMPRESSION:New onset diarrhea for 2 months which has improved with discontinuingmetformin and eating a liquid diet. Her frequency and urgency haveimproved. Prior to that time she suffered from constipation.Intermittent solid food dysphagiaHistory coronary artery disease status post multiple ID's with history ofcoronary artery stent placementInsulin-dependen t diabetes mellitusPLAN:Patient is now eat low residue dietVirtual visit in 3 weeks-Will scheduleThe majority of the visit was spent counseling and/or coordinating carefor the patient. [id number] time was 60 minutes.STAFF PHYSICIANDaart Van MD [facility] Vital Signs Date Time Vital Sign Value Performing Clinician Facility 11-06-2023 14:09-0500 Body height 157.5 cm [employer] Phone: [facility] [employer] 11-06-2023 14:09-0500 Body mass index (BMI) [Ratio] 39.87 kg/m2 [employer] [facility] 11-06-2023 14:09-0500 Body weight 98.88 kg [employer] Phone: [facility] [employer] 12-02-2022 13:40-0500 Body height 160.02 cm Yoana Viki Other [employer] Other 12-02-2022 13:40-0500 Body mass index (BMI) [Ratio] 39.85 kg/m2 Yoana Viki Other [employer] Other 12-02-2022 13:40-0500 Body temperature 98.4 [degF] Yoana Viki Other [employer] Other 12-02-2022 13:40-0500 Body weight 102.06 kg Yoana Drew Other [employer] Other 12-02-2022 13:40-0500 Diastolic blood pressure 98 mm[Hg] Yoana Drew Other [employer] Other 12-02-2022 13:40-0500 Respiratory rate 18 /min Yoana Drew Other [employer] Other 12-02-2022 13:40-0500 SaO2% (BldA) [Mass fraction] 97 % Yoana Drew Other [facility] [employer] Other 12-02-2022 13:40-0500 Systolic blood pressure 160 mm[Hg] Yoana Drew Other [facility] [employer] Other 03-22-2022 09:34-0400 Body temperature 97.8 [degF] II [employer] Work Phone: [facility] 03-22-2022 09:34-0400 Body weight 100.69 kg II Faraz Osman Work Phone: [facility] 03-22-2022 09:34-0400 Diastolic blood pressure 78 mm[Hg] II Faraz Osman Work Phone: [facility] 03-22-2022 09:34-0400 Heart rate 78 /min II Faraz Osman Work Phone: [facility] 03-22-2022 09:34-0400 Respiratory rate 18 /min II Faraz Osman Work Phone: [facility] 03-22-2022 09:34-0400 SaO2% (BldA) [Mass fraction] 98 % II Faraz Osman Work Phone: [facility] 03-22-2022 09:34-0400 Systolic blood pressure 169 mm[Hg] II Faraz Osman Work Phone: [facility] 02-20-2022 11:52-0400 Body temperature 98.2 [degF] II Faraz Osman Work Phone: [facility] 02-20-2022 11:52-0400 Body weight 101.2 kg II Faraz Osman Work Phone: [facility] 02-20-2022 11:52-0400 Diastolic blood pressure 60 mm[Hg] II Faraz Osman Work Phone: [facility] 02-20-2022 11:52-0400 Heart rate 77 /min II Faraz Osman Work Phone: [facility] 02-20-2022 11:52-0400 Respiratory rate 18 /min II Faraz Osman Work Phone: [facility] 02-20-2022 11:52-0400 SaO2% (BldA) [Mass fraction] 97 % II Faraz Osman Work Phone: [facility] 02-20-2022 11:52-0400 Systolic blood pressure 177 mm[Hg] II Faraz Osman Work Phone: [facility] 01-18-2022 13:43-0400 Body temperature 98.8 [degF] II Faraz Osman Work Phone: [facility] 01-18-2022 13:43-0400 Body weight 102 kg II Faraz Osman Work Phone: [facility] 01-18-2022 13:43-0400 Diastolic blood pressure 72 mm[Hg] II Faraz Osman Work Phone: [facility] 01-18-2022 13:43-0400 Heart rate 80 /min II Faraz Osman Work Phone: [facility] 01-18-2022 13:43-0400 Respiratory rate 22 /min II Faraz Osman Work Phone: [facility] 01-18-2022 13:43-0400 SaO2% (BldA) [Mass fraction] 98 % II Faraz Osman Work Phone: [facility] 01-18-2022 13:43-0400 Systolic blood pressure 169 mm[Hg] II Faraz Osman Work Phone: [facility] 01-12-2022 13:02-0400 Body temperature 98 [degF] II Faraz Osman Work Phone: [facility] 01-12-2022 13:02-0400 Body weight 101.15 kg II Faraz Osman Work Phone: [facility] 01-12-2022 13:02-0400 Diastolic blood pressure 82 mm[Hg] II Faraz Osman Work Phone: [facility] 01-12-2022 13:02-0400 Heart rate 72 /min II Faraz Osman Work Phone: [facility] 01-12-2022 13:02-0400 Systolic blood pressure 177 mm[Hg] II Faraz Osman Work Phone: [facility] 12-20-2021 12:20-0400 Diastolic blood pressure 50 mm[Hg] II Faraz Osman Work Phone: [facility] 12-20-2021 12:20-0400 Heart rate 62 /min II Faraz Osman Work Phone: [facility] 12-20-2021 12:20-0400 Respiratory rate 16 /min II Faraz Osman Work Phone: [facility] 12-20-2021 12:20-0400 SaO2% (BldA) [Mass fraction] 99 % II Faraz Osman Work Phone: [facility] 12-20-2021 12:20-0400 Systolic blood pressure 140 mm[Hg] II Faraz Osman Work Phone: [facility] 12-20-2021 09:24-0400 Body height 160.02 cm II Faraz Osman Work Phone: [facility] 12-20-2021 09:24-0400 Body mass index (BMI) [Ratio] 40.9 kg/m2 II Faraz Osman Work Phone: [facility] 12-20-2021 09:24-0400 Body weight 104.77 kg II Faraz Osman Work Phone: [facility] 12-20-2021 06:25-0400 Body temperature 98.6 [degF] II Faraz Osman Work Phone: [facility] 11-25-2021 11:42-0500 Body weight 102.96 kg II Faraz Osman Work Phone: [facility] 11-25-2021 11:42-0500 Diastolic blood pressure 101 mm[Hg] II Faraz Osman Work Phone: [facility] 11-25-2021 11:42-0500 Heart rate 84 /min II Faraz Osman Work Phone: [facility] 11-25-2021 11:42-0500 Respiratory rate 16 /min II Faraz Osman Work Phone: [facility] 11-25-2021 11:42-0500 SaO2% (BldA) [Mass fraction] 96 % II Faraz Osman Work Phone: [facility] 11-25-2021 11:42-0500 Systolic blood pressure 188 mm[Hg] II Faraz Osman Work Phone: [facility] 11-25-2021 11:10-0500 Body height 158.75 cm II Faraz Osman Work Phone: [facility] Encounters Encounter Date Encounter Type Care Provider Facility Start: 12-18-2023 End: 12-18-2023 ambulatory JERSON ANTON Not Available Start: 12-12-2023 End: 12-13-2023 ambulatory ROSEANN VICENTE Not Available Start: 12-04-2023 End: 12-04-2023 ambulatory ROSEANN VICENTE Not Available Start: 11-23-2023 End: 11-24-2023 ambulatory ROSEANN VICENTE Not Available Start: 11-20-2023 End: 11-20-2023 ambulatory ROSEANN VICENTE Not Available Start: 11-19-2023 End: 11-19-2023 ambulatory [facility] Start: 11-13-2023 End: 11-13-2023 ambulatory ROSEANN VICENTE Not Available Start: 11-13-2023 End: 11-13-2023 ambulatory Roseann Vicente OT Work Phone: [facility] Comment on above: Carpal tunnel syndro me, bilateral (Primary Dx); Hand weakness Start: 11-13-2023 Bamboo flowsheet Roseann bergeron OT Work Phone: [facility] Start: 11-13-2023 Bamboo flowsheet Roseann bergeron OT Work Phone: [facility] Start: 11-09-2023 End: 11-09-2023 ambulatory ROSEANN VICENTE Not Available Start: 11-09-2023 Bamboo flowsheet Roseann bergeron OT Work Phone: [facility] Start: 11-09-2023 Bamboo flowsheet Roseann bergeron OT Work Phone: [facility] Start: 11-09-2023 End: 11-09-2023 ambulatory Roseann Vicente OT Work Phone: [facility] Comment on above: Carpal tunnel syndro me, bilateral (Primary Dx); Bilateral carpal tunnel syndrome; Hand weakness Start: 11-06-2023 End: 11-06-2023 ambulatory JERSON ANTON Not Available Start: 11-06-2023 End: 11-06-2023 Follow-up encounter Jerson Anton DO Work Phone: [facility] Comment on above: Bilateral carpal rossi christin syndrome (Primary Dx) Start: 11-06-2023 ambulatory FARAZ OSMAN Facility :[facility] Start: 11-05-2023 Chart abstracting Jerson yarbrough DO Work Phone: [facility] Start: 10-03-2023 End: 10-03-2023 ambulatory FARAZ OSMAN Not Available Start: 09-25-2023 End: 09-25-2023 ambulatory JERSON ANTON Not Available Start: 09-12-2023 End: 09-12-2023 ambulatory FARAZ OSMAN Not Available Start: 08-13-2023 End: 11-13-2023 ambulatory FARAZ OSMAN Not Available Start: 06-20-2023 End: 06-20-2023 [facility] Start: 02-14-2023 End: 02-14-[address] FARAZ OSMAN Facility:[facility] Start: 01-04-2023 End: 01-05-[address] FARAZ OSMAN Facility:[facility] Start: 12-02-2022 End: 12-02-2022 ambulatory Yoana Drew Other [employer] Other Start: 12-02-2022 Office outpatient vi sit 15 minutes Yoana Drew [facility] Start: 11-06-2022 End: 11-07-[address] GARRETT MCDONALD Facility:[facility] Start: 07-25-2022 End: 07-26-[address] FARAZ OSMAN Facility:[facility] Start: 06-13-2022 End: 06-14-[address] FARAZ OSMAN Facility:[facility] Start: 05-29-2022 End: 05-29-2022 ambulatory KAROLINE SHAW . Facility:[facility] Start: 05-15-2022 End: 10-11-2022 Recurring FARAZ OSMAN [facility] Start: 03-22-2022 End: 03-22-2022 ambulatory Faraz Osman Facility:[facility] Start: 03-22-2022 End: 03-22-2022 Registered Recurring II [facility]man [facility] Start: 03-07-2022 End: 03-08-[address] FARAZ OSMAN Facility:[facility] Start: 02-20-2022 End: 02-20-2022 Registered Recurring II Faraz Osman [facility] Start: 02-14-2022 End: 02-14-2022 Registered Recurring II Faraz Osman [facility] Start: 01-18-2022 End: 01-18-2022 Registered Recurring II Faraz Osman [facility] Start: 01-12-2022 End: 01-12-2022 Registered Recurring II Faraz Osman [facility] Start: 12-20-2021 End: 12-20-2021 Admission to same day surgery center II [facility] Osman [facility] Start: 12-16-2021 End: 12-16-2021 Patient encounter procedure II Faraz Osman Work Phone: [facility] Start: 12-06-2021 End: 12-06-2021 Patient encounter procedure II Faraz Osman Work Phone: [facility] Start: 11-25-2021 Registered Recurring II Faraz Osman [facility] Start: 11-14-2018 End: 11-18-2018 Evaluation and management of inpatient FARAZ OSMAN Facility:[facility] Start: 09-05-2018 End: 09-07-2018 Evaluation and management of inpatient JONAH SANABRIA Facility:[facility] Start: 04-28-2018 End: 05-03-2018 Evaluation and management of inpatient WILMAR MORRIS Facility:[facility] Start: 10-26-2017 End: 10-26-2017 Ambulatory CARLOS EDUARDO VAN [facility] Procedures Date Procedure Procedure Detail Performing Clinician Start: 12-20-2021 Mammography of left breast specimen II Faraz Osman Work Phone: Start: 12-20-2021 Lumpectomy of left breast II Faraz Osman Work Phone: Start: 12-20-2021 Radionuclide sentine l lymph node study II Faraz Osman Work Phone: Start: 12-19-2021 Mammography of left breast II Faraz Osman Work Phone: Start: 12-19-2021 Ultrasonography guid ed needle localization of lesion of left breast II Faraz Osman Work Phone: Start: 07-07-2020 Colonoscopy Jerson yarbrough DO Work Phone: Start: 11-15-2018 EXCISION OF STOMACH, ENDO, DIAGN DOV OSCAR Start: 09-06-2018 DILATION OF CORONARY ARTERY, ONE ARTERY, PERC APPROACH JENNIFER CORMIER Start: 09-06-2018 FLUOROSCOPY OF MULT COR ART USING L OSM CONTRAST JENNIFER CORMIER Start: 09-06-2018 MEASURE OF CARDIAC S AMPL \T\ PRESSURE, L HEART, PERC APPROACH JENNIFER CORMIER Start: 04-29-2018 INTRODUCE OF OTH THE RAP SUBST INTO RESP TRACT, VIA OPENING RIVERA Marquis DEMPSEY Plan of Treatment Date Care Activity Detail Author Start: 07-07-2030 Screening for malign ant neoplasm of colon [facility] Start: 04-26-2024 Glaucoma screening Diabetes: R etinopathy Screening [facility] Start: 12-31-2023 End: 12-31-2023 Patient encounter procedure 12/31/2023 1:30 PM EDT Office Visit [facility] [address] [place] [address] Faraz Osman MD [address] [place] [address] [facility] Start: 12-18-2023 End: 12-18-2023 Patient encounter procedure 12/18/2023 2:45 PM EDT Office Visit [facility] [address] [place] [address] Jerson Anton DO [address] [place] [address] [facility] Start: 12-15-2023 Medicare Annual Wellness (AWV) Medicare Annual Wellness (AWV) [facility] Start: 12-15-2023 Urine screening for protein Diabetes: Urine Protein Screening [facility] Start: 11-23-2023 End: 11-23-2023 ambulatory 11/23/2023 2:30 PM EST Treatment [facility] [address] [place] [address] Roseann Vicente, OT [address] [place] [address] [facility] Start: 11-20-2023 End: 11-20-2023 ambulatory 11/20/2023 2:30 PM EST Treatment [facility] [address] [place] [address] Roseann Vicente, OT [address] [place] [address] [facility] Start: 11-13-2023 End: 11-13-2023 ambulatory [facility] Comment on above: Carpal tunnel syndro me, bilateral (Primary Dx) Start: 11-13-2023 Hemoglobin A1c measurement Diabetes: Hemoglobin A1C [facility] Start: 11-09-2023 End: 11-09-2023 ambulatory 11/09/2023 1:30 PM EST Evaluation [facility] [address] [place] [address] Roseann Vicente, OT [address] [place] [address] [facility] Start: 11-06-2023 End: 11-06-2023 Patient encounter procedure 11/06/2023 2:00 PM EST Office Visit [facility] [address] [facility] [id number] Jerson Anton DO [address] [facility] [place] [address] [facility] Start: 04-20-2020 Pneumococcal Vaccine : 65+ Years (2 - PCV) Pneumococcal Vaccine: 65+ Years (2 - PCV) [facility] Start: 04-20-2020 Pneumococcal Vaccine : 65+ Years (2 of 2 - PCV) Pneumococcal Vaccine: 65+ Years (2 of 2 - PCV) [facility] Start: 1955 Screening for malign ant neoplasm of colon [facility] Patient referral [facility] Work Phone: Immunizations Immunization Date Immunization Notes Care Provider Fa allen 07-09-2023 Influenza, High-dose Seasonal, Quadrivalent, Preservative Free Jerson Brown DO Work Phone: [facility] 07-05-2022 Influenza, High-dose Seasonal, Quadrivalent, Preservative Free Jerson Brown DO Work Phone: [facility] 08-01-2021 influenza, high dose seasonal, preservative-free Jerson Brown DO Work Phone: [facility] 12-13-2020 COVID-19 mRNA, Comir kristal (Pfizer) II Faraz Osman Work Phone: [facility] 11-22-2020 COVID-19 mRNA, Comir kristal (Pfizer) II Faraz Osman Work Phone: [facility] 07-27-2020 influenza, injectabl e, quadrivalent, preservative free Jerson Anton DO Work Phone: [facility] 07-27-2020 zoster vaccine recombinant Jerson Anton DO Work Phone: [facility] 07-14-2019 influenza, seasonal, injectable Jerson Anton DO Work Phone: [facility] 07-02-2019 influenza, injectabl e, quadrivalent, preservative free Jerson Brown DO Work Phone: [facility] 04-20-2019 pneumococcal polysaccharide vaccine, 23 valent Jerson Anton DO Work Phone: [facility] 07-29-2018 Influenza, High-dose Seasonal, Quadrivalent, Preservative Free Jerson Brown DO Work Phone: [facility] 07-29-2018 seasonal influenza, intradermal, preservative free Jerson Anton DO Work Phone: [facility] 08-06-2017 influenza, injectabl e, quadrivalent, preservative free Jerson Brown DO Work Phone: [facility] 06-04-2017 seasonal influenza, intradermal, preservative free Jerson Anton DO Work Phone: [facility] 09-14-2015 zoster vaccine, live Jerson medley DO Work Phone: [facility] Payers Date Payer Category Payer Medicare [employer] UHC DUAL COMPLETE [id number] 2022-Present [address] [place] [address] [id number] 2021 Self-pay [id number] 2019 [place] [facility] [place] [id number] 2019-Present [phone] [address] [place] [address] Medicaid [id number] 2017 Private Health Insurance [id number] 1959 Medicaid [id number] 1955 Unknown [id number] 2.16.840.1.013582.3.579.2. 647 1955 Unknown [id number] 2.16.840.1.867839.3.579.2. 647 1955 Unknown [id number] 2.16.840.1.868914.3.579.2. 647 1955 Unknown [id number] 2.16.840.1.554701.3.579.2. 593 1955 Unknown [id number] 2.16.840.1.389658.3.579.2. 593 1955 Unknown [id number] 2.16.840.1.322972.3.579.2. 593 1955 Unknown [id number] 2.16.840.1.236133.3.579.2. 593 1955 Unknown [id number] 2.16.840.1.882373.3.579.2. 593 1955 Unknown [id number] 2.16.840.1.384352.3.579.2. 593 1955 Unknown [id number] 2.16.840.1.000127.3.579.2. 593 1955 Unknown [id number] 2.16.840.1.991276.3.579.2. 1259 1955 Unknown [id number] 2.16.840.1.731267.3.579.2. 1259 1955 Unknown [id number] 2.16.840.1.692049.3.579.2. 1259 1955 Unknown [id number] 2.16.840.1.351460.3.579.2. 1259 1955 Unknown [id number] 2.16.840.1.141333.3.579.2. 1259 1955 Unknown [id number] 2.16.840.1.875266.3.579.2. 1259 1955 Unknown [id number] 2.16.840.1.406592.3.579.2. 1259 1955 Unknown [id number] 2.16.840.1.287457.3.579.2. 1259 1955 Unknown [id number] 2.16.840.1.116490.3.579.2. 1259 1955 Unknown [id number] 2.16.840.1.308374.3.579.2. 1259 1955 Unknown [id number] 2.16.840.1.996895.3.579.2. 1259 1955 Unknown [id number] 2.16.840.1.920279.3.579.2. 1259 1955 Unknown [id number] 2.16.840.1.771509.3.579.2. 727 Medicaid [id number] Medicare [id number] 2.16.840.1.355952.19 Unknown [id number] 2.16.840.1.380500.3.579.2. 531 Social History Date Type Detail Facility Start: 12-20-2021 End: 02-20-2023 Tobacco smoking status NHIS Never smoked tobacco (finding) [facility] Start: 1955 Sex Assigned At Female [facility] Tobacco smoking status No Smokin g Status Entered [facility] Start: 07-31-2023 End: 11-06-2023 Sex Assigned At Female [facility] Start: 02-20-2023 Tobacco use and exposure Smokeless tobacco non-user [facility] Start: 10-03-2023 End: 11-06-2023 Alcohol intake Ex-drinker (finding) [facility] Start: 07-31-2023 End: 11-06-2023 [facility] Within the last year , have you been afraid of your partner or ex-partner? No [facility] Are you now , , , , never or living with a partner? [facility] How often to you hav e a drink containing alcohol? Monthly or less [facility] How many standard dr inks containing alcohol do you have on a typical day? 1 or 2 [facility] How often do you hav e 6 or more drinks on 1 occasion? Never [facility] How hard is it for y ou to pay for the very basics like food, housing, medical care, and heating Not very hard [facility] Do you feel stress - tense, restless, nervous, or anxious, or unable to sleep at night because your mind is troubled all the time - these days [OSQ] Only a little [facility] (I/We) worried wheth er (my/our) food would run out before (I/we) got money to buy more. Sometimes true [facility] The food that (I/we) bought just didn't last, and (I/we) didn't have money to get more. Never true [facility] In the past 12 month s, has lack of transportation kept you from medical appointments or from getting medications? No [facility] Start: 02-16-2023 Education 13 [facility] Start: 02-16-2023 Alcohol Comment Caffeine Intake: soda/pop [facility] Start: 1955 Sex Assigned At Not on file [facility] Medical Equipment Procedure Code Equipment Code Equipment Origin al Text Equipment Identifier Dates USE DIRECTED TWICE A DAY [id number] Start: 09-14-2022 1 strip by In Vi tro route in the morning. [id number] Start: 06-29-2023 1 Lancet in the morning. [id number] Start: 06-29-2023 Goals Date Patient Goal Desired Activity /State Clinical Notes 11-25-2021 to 11-19-2023 Roseann Wilman, OT - 11/13/2023 2:30 PM Shan Wilman, OT - 11/09/2023 1:30 PM Galilea Amaro - 11/06/2023 2:00 PM EST Note Date & Type Note Facility 11-19-2023 Note [facility] Cardiology Clinic Note Chief Complaint: Patient here for 6 mo follow up CAD, chest pain, and hypertension. She denies chest pain, SOB, and palpitations. She stood up from the couch a few weeks ago at home and fell. Denies lightheadedness and syncope. No labs/imaging since Jun 2023. HPI: Ceci Powell is a 68 y.o. female With a history of coronary artery disease, prior PCI, type 2 diabetes mellitus on insulin here in routine follow-up Doing well. The chest pain she had on deep breaths has resolved. She had an accidental fall recently; this was not associated with chest pain, lightheadedness, dizziness or syncope. Cardiology ROS: Review of Systems Musculoskeletal: Positive for falls (1 episode) and myalgias. Neurological: Positive for loss of balance, numbness and weakness. All other systems reviewed and are negative. Past Medical History She has a past medical history of Cancer (CMS/HCC), Coronary artery disease, Diabetes mellitus (CMS/HCC), Gastrointestinal hemorrhage, Hyperlipidemia, Hypertension, and Sleep apnea. Surgical History She has a past surgical history that includes CTA Neck W IV Contrast (04/29/2018); CTA Head W IV Contrast (04/29/2018); and Breast lumpectomy. Social History She has no history on file for tobacco use, alcohol use, and drug use. Family History No family history on file. Allergies Patient has no known allergies. Medications Current Outpatient Medications: amLODIPine (Norvasc) 10 mg tablet, Take 1 tablet every day by oral route., Disp: , Rfl: anastrozole (Arimidex) 1 mg chemo tablet, Take 1 mg by mouth in the morning, Disp: , Rfl: aspirin 81 mg EC tablet, Take 1 tablet every day by oral route., Disp: , Rfl: atorvastatin (Lipitor) 80 mg tablet, 1 (one) time each day at the same time., Disp: , Rfl: buPROPion XL (Wellbutrin XL) 150 mg 24 hr tablet, 1 (one) time each day at the same time., Disp: , Rfl: carvedilol (Coreg) 12.5 mg tablet, in the morning and at bedtime., Disp: , Rfl: clopidogrel (Plavix) 75 mg tablet, , Disp: , Rfl: insulin aspart (NovoLOG) 100 unit/mL (3 mL) pen, Inject 1 Units under the skin., Disp: , Rfl: insulin glargine (Lantus) 100 unit/mL injection, Inject 40 Units under the skin in the morning., Disp: , Rfl: isosorbide mononitrate ER (Imdur) 30 mg 24 hr tablet, Take 30 mg by mouth in the morning., Disp: , Rfl: lisinopril 10 mg tablet, Take 10 mg by mouth 2 times daily., Disp: , Rfl: lisinopril 40 mg tablet, TAKE 1 TABLET BY MOUTH EVERY MORNING, Disp: 90 tablet, Rfl: 3 metFORMIN XR (Glucophage-XR) 500 mg 24 hr tablet, every 12 (twelve) hours., Disp: , Rfl: nitroglycerin (Nitrostat) 0.4 mg SL tablet, Place 1 tablet by sublingual route., Disp: , Rfl: OXcarbazepine (Trileptal) 300 mg tablet, take 0.5 tablet by mouth every morning and take 1 tablet by mouth... (REFER TO PRESCRIPTION NOTES)., Disp: , Rfl: pantoprazole (ProtoNix) 40 mg EC tablet, 40 mg in the morning., Disp: , Rfl: spironolactone (Aldactone) 25 mg tablet, Take 1 tablet (25 mg) by mouth in the morning., Disp: 90 tablet, Rfl: 3 Last Recorded Vitals BP 138/72 (BP Location: Left arm, Patient Position: Standing) Pulse 70 Ht 1.6 m (5' 3 ) Wt 98.9 kg (218 lb) SpO2 95% BMI 38.62 kg/m??? Physical Examination: GENERAL: alert and oriented x3, well developed, in no acute distress. HEAD: atraumatic, normocephalic. EYES: OSCAR, EOMI. NECK: trachea midline, no JVD present, no carotid bruits present. CARDIAC: S1, S2 present. RRR. No murmur, rubs, or gallops. RESPIRATORY: CTAB, no increased effort of breathing, no rales, rhonchi, or wheezing. ABDOMEN: soft, nontender, nondistended. EXTREMITIES: no lower extremity edema, peripheral pulses are 2+ bilaterally. No rash/skin discoloration present. NEURO: strength/sensation equal and symmetric in bilateral upper and lower extremities. PSYCH: appropriate mood, affect, and judgement. Investigations: Investigations: Lexiscan stress test 11/06/2022: Lexiscan stress test is uninterpretable due to the presence of abnormal baseline EKG. Summary: Myocardial perfusion imaging is normal Conclusion: 1. Normal myocardial perfusion scan. No reversible ischemia. 2. Equivocal Lexiscan stress test [facility] MR #: [id number] Physician: Jennifer Cormier, Department of M.D. Medicine Service Date: 09/06/2018 Division of Birthdate: 1955 Cardiology Room #: [id number] Adult [facility] Services [place] [address] Cardiovascular Laboratory Report FINAL IMPRESSION: 1. Hemodynamically significant lesion in the previously placed stents with an FFR of 0.76. 2. Plain balloon angioplasty of the in-stent restenosis within the previously placed stents in the LAD and post POBA FFR of 0.92. 3. Hemodynamically insignificant lesion in the ci (more content not included)... [facility] 11-13-2023 History of Present illness Narrative Occupational Therapy Occupational Therapy Treatment Visit Patient Name: Klye Powell Today's Date: 11/15/2023 Linked Episodes Type: Episode: Status: Noted: Resolved: Last update: Updated by: Occupational Therapy B CTR Active 11/07/2023 11/09/2023 3:16 PM Roseann Vicente OT Comments:Episode created from referral [id number] Visit number: 11/12 Supervised time:60 Total time:60 Subjective Pain: /10. Pt reports It is a little sore but I have been doing the exercises you gave me. I was able to open up a bottle of tea which I have not been able to do but I still cannot open a bag of chips. I had to have my do it . Overall progress: Objective: 23' MT for STM/ DTM and distraction to B hands and wrists with focus on the median nerve distribution. Light resistive AROM complete to B wrists and thumb in all planes 1x20. 30' CHAD with 10' supervised CHAD in Fluido for tissue preconditioning each hand. Exercises complete on opposite hand while in heat. AROM exercises complete in heat with good toleration. Juxicisor for AROM x5, and yellow t-putty exercises pinch/pull/pin attacher and red therabar exercises in supination/pronation 1x20 for wrist/ pin attacher strengthening. Red digiflex for pin attacher. Median nerve glides complete 1x5x10. Continue to encourage compliance of HEP at home. Treatment: Manual: STM along the median nerve distribution. MRE's to wrist, and completion of UN/MN glides. Therapeutic Exercise: light strengthening of B wrist and forearm. Therapeutic Activity: Modalities: Neuro Re-Ed: Assessment/Plan Pt tolerated session well. Denies increased pain with all exercises. OT remains necessary to increase strength necessary for all I/ADL tasks at discharge. documented in this encounter [facility] 11-09-2023 History of Present illness Narrative Occupational Therapy Occupational Therapy Evaluation Visit Patient Name: Kyle Powell Today's Date: 11/09/2023 Linked Episodes Type: Episode: Status: Noted: Resolved: Last update: Updated by: Padilla Mosher B CTR Active 11/07/2023 11/09/2023 2:59 PM Roseann Vicente OT Comments:Episode created from referral [id number] Visit number: 10/12 Subjective Interim History: 68 y/o right hand dominant female presents with chief complaint of hand weakness following CTS. R hand on 08/27/2023 and left hand on 09/10/2023. Denies N/T following sx just inability to open any bottles, color for more than an hour a time, and open bags of chips. Pain/weakness reported L> R. Pain: Denies N/T; hypersensitivity at incision. Imaging: reviewed. Prior Level of Function: I with all self-care and functional mobility. Uses cane. Precautions: hx of CVA. B carpal tunnel release sx. Objective PRWHE Pain Score: 47/50 PRWHE Functional Score: 78/100 Hand/Wrist Musculoskeletal Exam Inspection Right Right hand/wrist inspection is normal. Edema: none Wrist - prior incision: carpal tunnel Incision: well-healed Left Left hand/wrist inspection is normal. Edema: none Wrist - prior incision: carpal tunnel Incision: well-healed Palpation Right Wrist tenderness to palpation: carpal canal Left Wrist tenderness to palpation: carpal canal Range of Motion Right Wrist Right wrist range of motion is normal. Left Wrist Left wrist range of motion is normal. Strength Right Wrist Extension: 4-/5. Flexion: 4-/5. Radial deviation: 4-/5. Ulnar deviation: 4-/5. Pronation: 4-/5. Supination: 4-/5. Left Wrist Extension: 4-/5. Flexion: 4-/5. Radial deviation: 4-/5. Ulnar deviation: 4-/5. Pronation: 4-/5. Supination: 4-/5. Neurovascular Right Right neurovascular exam is normal. Left Left neurovascular exam is normal. Special Tests Right Right special tests are normal. Left Left special tests are normal. General General additional comments: R pin attacher strength: 20# LP: 5# L pin attacher strength: 20# LP: 6# Treatment: Education: HEP education with demonstration, Educated on Eval Findings and POC Manual Therapy: Passive ROM, Joint mobilization, Soft Tissue Mobilization, Myofascial Release, Muscle Energy Technique, Neural Mobilization, Dry Needling, IASTM, and Scar mobilization Therapeutic Exercise: Strength, Endurance, Flexibility, ROM, and HEP Therapeutic Activity: Exercises to improve dynamic activities, functional tasks, functional mobility to return to prior activity level Neuromuscular re-education: Balance Training, Muscle Facilitation, and Dynamic Stability Modalities: Heat, Ice, Electrical Stimulation, Ultrasound, Iontophoresis, and Fluidotherapy Today: HP x 5 minutes to B hands. STM/DTM along the median nerve distribution complete. HEP established for pin attacher strengthening/ forearm stretches. Written handout provided. Pt and spouse in agreement to POC. Assessment/Plan Short Term Goals: Pt will be independent with home exercise program for pin attacher strengthening at discharge. Fdc Goals: PRWHE Pain Score 25< 50 ( IE: 47/50) PRWHE Functional Score 20 < 100 ( IE: 78/100) Pt to increase pin attacher strength by 10# and LP by 2# pain free at discharge. ( IE: B 20# LP: R 5# L6#) Pt will be able to use B UE in light daily activities. Pt will benefit from skilled OT to address the above impairments for 2x/week for 4-6 weeks. I hereby deem this POC medically necessary. Please sign below. Date: documented in this encounter [facility] 11-06-2023 History of Present illness Narrative Images from the original note were not included. Kyle Powell is a 68 y.o. female presents with chief complaint of Post-op of the Left Wrist and Post-op of the Right Wrist HPI: Kyle is 10 weeks status post right carpal tunnel release. Date of surgery was 08/27/2023 and 8 weeks status post left carpal tunnel release. Date of surgery was 09/10/2023. She states her hands will fatigue. She still notes some achiness. She has been taking Tylenol primarily at night to help her sleep. SUBJECTIVE: MEDICATIONS: Current Outpatient Medications Medication Instructions amLODIPine (NORVASC) 10 mg, Oral, Daily RT anastrozole (ARIMIDEX) 1 mg, Oral, Daily aspirin 81 mg, Oral, Daily atorvastatin (LIPITOR) 80 mg, Oral, Daily buPROPion XL (WELLBUTRIN XL) 150 mg, Oral, Every morning carvedilol (Coreg) 12.5 MG tablet TAKE 1 TABLET BY MOUTH TWICE DAILY clopidogrel (PLAVIX) 75 mg, Oral, Daily Continuous Blood Gluc Sensor (FreeStyle Anuradha 2 Sensor) misc 1 Device, Does not apply, Every 14 days Droplet Pen [place] 31G X 6 MM misc USE DIRECTED TWICE A DAY gabapentin (NEURONTIN) 300 mg, Oral, Nightly Glucose Blood (Blood Glucose Test Strips 333) strip 1 strip, In Vitro, Daily insulin lispro protamine-insulin lispro (HumaLOG Mix 75-25) (75-25) 100 UNIT/ML suspension injection Inject 60 Units under the skin Daily with meals AND 45 Units in the evening. Take before meals. isosorbide mononitrate ER (IMDUR) 30 mg, Oral, Daily Lancets 28G misc 1 Lancet , Does not apply, Daily lisinopril 40 mg, Oral, Daily metFORMIN XR (GLUCOPHAGE-XR) 500 mg, Oral, 2 times daily nitroglycerin (Nitrostat) 0.[address] 1 tablet by sublingual route. Nyamyc [id number] UNIT/GM powder Nyamyc 100,000 unit/gram topical powder apply to affected area topically twice a day OXcarbazepine (Trileptal) 300 MG tablet 1/2 tab AM 1 tab PM, may incr to 1/2 tab BID and 1 tab QHS pantoprazole (PROTONIX) 40 mg, Oral, 2 times daily RA Col-Rite 100 mg, Oral, 2 times daily PRN spironolactone (ALDACTONE) 25 mg, Oral, Daily ALLERGIES: Allergies Allergen Reactions Diphenhydramine Other Reaction(s): Hives SURGICAL HISTORY: Past Surgical History: Procedure Laterality Date BREAST BIOPSY Left 11/07/2021 BREAST LUMPECTOMY 12/20/2021 Lt. lumpectomy w/sln bx SLN CARDIAC CATHETERIZATION 02/02/2017 HEART CATH WITH STENT PLACEMENT --PAD,LAD CARPAL TUNNEL RELEASE Bilateral 2022 R CTR 08/27/23 L CTR 09/10/23 JAB CATARACT EXTRACTION SECTION, CLASSIC CT ANGIO HEAD 04/29/[address] ANGIOGRAM NECK 04/29/2018 CT ANGIOGRAM NECK TONSILLECTOMY VASCULAR SURGERY FAMILY HISTORY: Family History Problem Relation Name Age of Onset Colon cancer Mother Diabetes Mother Breast cancer Neg Hx Ovarian cancer Neg Hx Mental illness Neg Hx Alcohol abuse Neg Hx Drug abuse Neg Hx SOCIAL HISTORY: Social History Tobacco Use Smoking status: Never Smokeless tobacco: Never Vaping Use Vaping Use: Never used Substance Use Topics Alcohol use: Not Currently Comment: Caffeine Intake: soda/pop Drug use: Never Depression: Not on file REVIEW OF SYMPTOMS: The review of systems, history and current medications list are all reviewed today. OBJECTIVE: Visit Vitals Ht 5' 2 Wt 218 lb LMP (LMP Unknown) BMI 39.87 kg/m OB Status Unknown Smoking Status Never BSA 2.08 m Physical Exam She is wearing rings on the right index finger, right ring finger, and left ring finger today. There is minimal swelling. Incisions are benign and well-healed. She can flex all fingers into the palm. The patient can make an OK sign, cross the fingers and extend the thumb. The hands are well-perfused. ASSESSMENT AND PLAN: Assessment/Plan Ten weeks status post right carpal tunnel release and 8 weeks status post left carpal tunnel release. We will start her in occupational therapy at [facility] in [place]. Prescription for Gabapentin was provided to take at night. Follow-up in six weeks for re-evaluation. I reiterated to Kyle that her disease was severe and as such will likely necessitate a longer recovery period. She also may not experience complete resolution of her symptoms but the primary goal of surgery was to prevent continued worsening of her nerve compression. Jerson Anton D.O. documented in this encounter [facility] 07-30-[address] is scheduled for carpal tunnel release on 08/27 and 09/10. Facility is calling requesting aspirin and plavix to be held prior to the procedure. Please advise how long the patient should hold these medications. Thank you [facility] 06-20-2023 Note [facility] Cardiology Clinic Note Chief Complaint: Patient here for follow up [facility] ED for chest pain. She has taken nitroglycerin 1 time for chest pain s/p ED visit, and it did help. She's getting very SOB with minimal exertion. Had pain in her right breast last night and thought she should've taken nitroglycerin for it. HPI: Ceci Powell is a 67 y.o. female With a history of coronary artery disease, prior stent placement, morbid obesity, hypertension here in follow-up after recent ER visit. She is describes right-sided chest discomfort that occurs with rest and exertion. It is worse with deep breaths. Notably, she has a history of shingles on the right side and a history of breast cancer. She denies orthopnea, she has no paroxysmal external dyspnea or lower extremity edema. She does have exertional shortness of breath that she feels is getting worse over the past 6 to 12 months. Notably, she had a nonischemic stress test in November of this year. Cardiology ROS: Review of Systems Cardiovascular: Positive for chest pain and dyspnea on exertion. Musculoskeletal: Positive for myalgias. Neurological: Positive for light-headedness and numbness. All other systems reviewed and are negative. Past Medical History She has a past medical history of Cancer ([facility]), Coronary artery disease, Diabetes mellitus (CMS/HCC), Gastrointestinal hemorrhage, Hyperlipidemia, Hypertension, and Sleep apnea. Surgical History She has a past surgical history that includes CTA neck w and wo IV contrast (04/29/2018); CTA head w and wo IV contrast (04/29/2018); and Breast lumpectomy. Social History She has no history on file for tobacco use, alcohol use, and drug use. Family History No family history on file. Allergies Patient has no known allergies. Medications Current Outpatient Medications: amLODIPine (Norvasc) 10 mg tablet, Take 1 tablet every day by oral route., Disp: , Rfl: anastrozole (Arimidex) 1 mg chemo tablet, Take 1 mg by mouth in the morning, Disp: , Rfl: aspirin 81 mg EC tablet, Take 1 tablet every day by oral route., Disp: , Rfl: atorvastatin (Lipitor) 80 mg tablet, 1 (one) time each day at the same time., Disp: , Rfl: buPROPion XL (Wellbutrin XL) 150 mg 24 hr tablet, 1 (one) time each day at the same time., Disp: , Rfl: carvedilol (Coreg) 12.5 mg tablet, in the morning and at bedtime., Disp: , Rfl: clopidogrel (Plavix) 75 mg tablet, , Disp: , Rfl: lisinopril 10 mg tablet, Take 10 mg by mouth at bedtime., Disp: , Rfl: lisinopril 40 mg tablet, Take 1 tablet (40 mg) by mouth in the morning., Disp: 90 tablet, Rfl: 3 metFORMIN XR (Glucophage-XR) 500 mg 24 hr tablet, every 12 (twelve) hours., Disp: , Rfl: pantoprazole (ProtoNix) 40 mg EC tablet, 40 mg in the morning., Disp: , Rfl: pregabalin (Lyrica) 150 mg capsule, Take 150 mg by mouth in the morning and at bedtime., Disp: , Rfl: spironolactone (Aldactone) 25 mg tablet, Take 1 tablet (25 mg) by mouth in the morning., Disp: 90 tablet, Rfl: 3 Last Recorded Vitals BP 126/62 (BP Location: Right arm, Patient Position: Sitting) Pulse 54 Ht 1.6 m (5' 3 ) Wt 98.4 kg (217 lb) SpO2 95% BMI 38.44 kg/m??? Physical Examination: GENERAL: alert and oriented x3, well developed, in no acute distress. HEAD: atraumatic, normocephalic. EYES: OSCAR, EOMI. NECK: trachea midline, no JVD present, no carotid bruits present. CARDIAC: S1, S2 present. RRR. No murmur, rubs, or gallops. RESPIRATORY: CTAB, no increased effort of breathing, no rales, rhonchi, or wheezing. ABDOMEN: soft, nontender, nondistended. EXTREMITIES: no lower extremity edema, peripheral pulses are 2+ bilaterally. No rash/skin discoloration present. NEURO: strength/sensation equal and symmetric in bilateral upper and lower extremities. PSYCH: appropriate mood, affect, and judgement. Investigations: Lexiscan stress test 11/06/2022: Lexiscan stress test is uninterpretable due to the presence of abnormal baseline EKG. Summary: Myocardial perfusion imaging is normal Conclusion: 1. Normal myocardial perfusion scan. No reversible ischemia. 2. Equivocal Lexiscan stress test Patient Name: Jaiden [facility] MR #: [id number] Physician: Jennifer Cormier, Department of M.D. Medicine Service Date: 09/06/2018 Division of Birthdate: 1955 Cardiology Room #: [id number] Adult Cardiovascular Services [facility] [address] [place], [place] [address] Cardiovascular Laboratory Report FINAL IMPRESSION: 1. Hemodynamically significant lesion in the previously placed stents with an FFR of 0.76. 2. Plain balloon angioplasty of the in-stent restenosis within the previously placed stents in the LAD and post POBA FFR of 0.92. 3. Hemodynamically insignificant lesion in the circ with an FFR of 0.92. 4. Patent stents in the right coronary artery. INDICATION: Cookie (more content not included)... [facility] 12-02-2022 Evaluation note Encounter Date Diagnosis Assessment Notes Nov, Bitten by cat, initial encounter (ICD-10 - W55.01XA) Cat bite home care material was printed Drink plenty fluids, get plenty of rest. Continue home medications as prescribed. Take the amoxicillin with clavulanate as prescribed until gone. Keep the wound clean and dry. You may leave the wound open when you shower however when you wash dishes you should wear gloves until the wound is completely healed. Call your family physician on Sunday for an appointment for recheck next week. Nov, Open bite of other finger without damage to nail, initial encounter (ICD-10 - S61.258A) [employer] Other 02-06-2023 NoteCARDIAC STRESS TEST Requesting Physician: Procedure Date:11/06/2022 This was a Lexiscan Stress Test with myocardial perfusion imaging performed at the [facility]. Informed consent was obtained, an intravenous line was secured, and the patient was attached to electrocardiographic monitoring. Baseline ECG and vital signs were obtained. Lexiscan 0.4 mg was injected intravenously, followed by administration of Cardiolite. The patient then went on to obtain myocardial perfusion imaging. Baseline heart rate was 68 BPM and maximal heart rate was 91 BPM. Resting blood pressure was 162/98 and maximal blood pressure was 172/82. Baseline ECG showed sinus rhythm with non-specific ST segment depressions seen in leads 2, 3, AVF, V5 and V6. Following infusion of Lexiscan, there was evidence of sinus rhythm with no changes in ST segment patterns. There was occurrence of 5 PVCs. IMPRESSION: Lexiscan Stress Test is uninterpretable due to presence of baseline abnormal ECG. Myocardial perfusion images will be reported separately. [id number] Progress note Author Ariel Monte [facility] March 22, 2022 10:19am Note Date/Time March 21, 2022 1:20 pm [facility] [place] [address] Rad Onc Follow Up Note - OP Signed Patient: Kyle Powell MR#: [id number] : 1955 Acct:[id number] Age/Sex: 66 / F Type: REG RCR Copies to: MD Faraz Hartman II, MD Fredric Itzkowitz, DO~ Assessment & Plan (1) Carcinoma of upper-outer quadrant of left breast in female, estrogen receptor positive Plan: RTC PRN Assessment Ms. Powell is a 66-year-old female with stage I pT1b N0 invasive ductal carcinoma of the upper outer quadrant of the left breast, ER/AK positive HER2 negative. Tumor was grade 2, 9 mm in size, with a negative sentinel lymph node (0/1) with clear margins for both invasive disease as well as associated DCIS. No LVSI noted. The CALGB and PRIME trials would support the omission of radiation with endocrine therapy alone, however at consult patient had started on her Arimidex which then stopped secondary to side effects. She then completed hypofractionated left breast radiation per the FAST FORWARD protocol to a dose of 26 Segal in 5 fractions using a partial breast technique due to significant cardiac morbidities including prior myocardial infarctions and CHF. Her exam today shows her to be JOSEMANUEL and she has recovered well from her surgery and radiation. She was again counseled on the need to keep the inframammary fold of the bilateral breasts clean and dry and utilize cornstarch or cotton pads in this area to help absorb moisture. We also discussed application of a fungal cream. Patient does have significant limitation abduction in the left shoulder on exam and it is obviously painful. We discussed the need for anti-inflammatories and PT however patient states that due to or cardiac history as well as history of a GI bleed that she has been counseled not to take any NSAIDs. Consequently we discussed the option of Tylenol extra strength 2 tablets 2-3 times a day. I also recommended physical therapy however patient would like to consider this. I encouraged her to discuss the option of anti inflammatories with her PCP or Tractor Operator Helper as these would like provide more relief. She meets with surgery this Sunday and has a mammogram set up under thecare of medical oncology in 6 months. She has follow-up per the NCCN guidelineswe will discharge her today in their care. We are happy to see her back at any time if there is a need for additional radiation or radiation related concerns. Follow Up Note - Narrative 66-year-old female with significant cardiac history including 9 heart attacks and strokes . She was treated for shingles over her right arm and leg and received the Shingrix vaccine. After receiving the vaccine she developed severeright breast pain and was sent for screening mammogram. She has the following oncologic history: October 13, 2021 screening mammogram at [facility] showed no abnormalities of the right breast but the left breast was concerning for a 1.2 spiculated nodule in the left upper outer quadrant. Spot compression mammogram and ultrasound confirmed an irregular hypoechoic mass in the 2 o'clock position measuring 8 mm in size. November 08, 2021 ultrasound-guided breast biopsy confirmed invasive ductal carcinoma, provisional grade 2 3, ER/AK positive HER2 equivocal by IHC, negativeby FISH. December 20, 2021 patient underwent left breast lumpectomy and sentinel lymph node biopsy. Pathology confirmed invasive ductal carcinoma, grade 2, 9 mm in size. All margins were negative. Closest margin was anteriorly at 1.5 mm. There was associated DCIS, 8 mm, intermediate nuclear grade 0.5 mm to the closest anteriormargin. 1 lymph node was negative for metastatic carcinoma. There was no lymphovascular space invasion. pT1b N0 Today patient is overall doing well. She has now resumed the anastrozole and feels that she is tolerating it okay though she is concerned regarding how tiredshe is. She has lost 11 pounds intentionally. She also recently started wearing a sports bra for better support of her breasts. Denies any issues with her skin from radiation. She continues to report left-sided shoulder pain sinceher surgery and feels this was exacerbated by the radiation. Physical exam: General: Alert and oriented, no acute distress. HEENT: Normocephalic, extraocular movements intact Chest: Normal work of breathing on room air Breast: The left treated breast shows the upper outer quadrant surgical incisionto be well-healed. There is no radiation skin change. No palpable mass or abnormality. Contralateral breast within normal limits. Bilateral breast show chronic candidiasis left greater than right. Lymph: No palpable cervical, supraclavicular, axillary lymphadenopathy bilaterally. Exam limited by body habitus Abdomen: Nonacute, obese. MSK: Limited abduction and external range of motion at the left shoulder secondary to pain. Dictated By: Ariel Monte MD DD/ [id number] Signed By: <Electronically signed by Ariel Monte MD> 03/22/22 1019 [facility] Work Phone: [phone]) 487-968305-23-2022 Progress note Author Lisa Orozco [facility] February 20, 2022 4:08pm Note Date/Time February 20, 2022 2:15p m [facility] [place] [address] Hem/Onc Follow Up Note - OP Signed Patient: Kyle Powell MR#: [id number] : 1955 Acct:[id number] Age/Sex: 66 / F Type: REG RCR Copies to: Faraz Osman II, MD~ Subjective Date/Time of Service: Date of Service: 02/20/2022 Time of Service: 14:10 Chief Complaint: Here for OTV completion of radiation. No concerns voiced. Patient did take three doses of Anastrozole before she started radiation and fainted. HPI: 02/20/2022: Kyle is here for follow up appt. She completed adjuvant breast XRTtoday - 02/20/2022. She was previously given 1 month trial of Anastrazole at visit on 01/12/2022; but only took for 3 days; noting she felt dizzy and woozy - she also noted that her blood pressure was significantly elevated at that same time, as well. She has been off AI therapy during radiation therapy - having just complete radiation today. Her baseline blood pressure is elevated; BP is 160-170's systolically; she sees cardiology and PCP in regards to this. 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 Garrett Mcdonald. Clinically, she is feeling well. She is mildly fatigued; but tolerated XRT well. She would like to try taking herAnastrazole again. Discussed most common side effects to include myalgias/arthralgias; hot flashes and decreased bone strength. She was advised to continue monitoring her blood pressure very closely; was also encouraged to follow-up with PCP?Dr. Navarrete as well. 01/12/2022: Mrs. Powell returns for follow-up after left breast lumpectomy. She notes she is healing well but has had drainage of seroma of incision. No surrounding erythema or tenderness. She does note that since 1 week Valtrex treatment of the right breast (uninvolved breast) pain that her mastodynia has completely resolved. Today we discussed results of her pathology showing T1b [id number] I breast cancer. Since she has less than 1 cm disease and strongly positive estrogen and progesterone receptors/HER-2 negative, I do not believe that Oncotype DX is warranted and recommended 5 years of aromatase inhibitor therapy. We will order baseline DEXA scan and we discussed potential toxicitiesof anastrozole including hot flashes, myalgias and arthralgias, rare GI upset and rashes. She will be given 1 month trial of anastrozole 1 mg daily and follow-up with nurse practitioner for toxicity review as well as review her DEXAscan. Patient and her expressed understanding over this 25-minute follow-up visit to review pathology and onto aromatase inhibitor counseling. PREVIOUS HISTORY: Original consult 11/25/2021 This is a 66-year-old lady who has significant comorbidities including 9 heart attacks and strokes with preserved ejection fraction on echocardiography (EF 60% November 2018). She also has a history of recurrent shingles mainly over her right arm as well as her right lower flank and leg. She reports that she has received the Shingrix vaccine and has no new skin lesions but developed a severe right breast pain about 1 month ago which she notes is intractable. She was sent for screening mammogram 10/13/2021 at [facility] showing no abnormalities of the right breast, but left breast showed a new 1.2 x 0.9cm spiculated nodule of left upper outer quadrant mid-breast. Subsequent spot compression mammogram and ultrasound showed an irregular hypoechoic mass in 2 o'clock position 10.7cm from nipple, [id number]. Ultrasound guided biopsy performed at [place] 11/08/21 confirmed diagnosis of invasive ductal carcinoma, provisional grade 2-3, ER >95% positive, AK >95% positive, Her2 equivocal by IHC, negative by FISH (HER/CEP17 1.4, copy number 3.33). She continues to have painful right breast, unclear etiology. She had prior shingles twice and I recommended trial of Valtrex 1g po bid for zoster sin herpeticum (no rash) for one week and contact her to see if this relieves her symptoms. She was referred to Dr. Hemphill yesterday and he scheduled her for lumpectomy/sentinel lymph node biopsy in early November (around 12/06/2021). I will see her in followup about 2 weeks post operative to review recommendations for adjuvant therapy. DIAGNOSIS: 1. Left upper outer quadrant 1.2cm x 0.9cm spiculated nodule at 2 o'clock, biopsy 11/07/2021: invasive ductal carcinoma, provisional grade 2-3, ER >95%, AK >95%, Her2 neg --12/20/2021: Left breast lumpectomy with left axillary sentinel lymph node: Invasive ductal carcinoma, [place] grade 2, tumor size 0.9 x 0.9 x 0.8 cm with margins negative. ER +95%, AK +95%, HER-2/diomedes negative IHC 1+, pT1b (sn)pN0 Mx 2. Right mastodynia x 1 month (no lesion right mammogram) 3. Coronary artery disease (multiple prior ID) 4. Cerebral vascular disease (multiple prior strokes, no residual deficits) 5. Prior history of shingles (VZV) and prior Shingrix vaccine - Summary of Therapies Summary of Therapies: 1. 12/20/2021: Left breast lumpectomy with left axillary sentinel lymph node 2. Met with radiation oncology for adjuvant radiation therapy discussion 3. Prescription to start aromatase inhibitor therapy with anastrozole 1 mg daily - started prior to radiation x 3 days - felt dizzy, discontinued. FinishedXRT on 02/20/2022. - will restart Anastrazole - 30 day trial - see back in 1 month to assess tolerability. ROS Details: All systems reviewed & no additional complaints except as documented Subjective/ROS - Narrative: CONSTITUTIONAL: Stable chronic fatigue, negative for fever or night sweats. HEAD AND NECK: Negative for changes in hearing and vision. Negative for mouth ulcers, nasal congestion and nasal drainage. PULMONARY: Negative for chest wall pain, cough and dyspnea. CARDIOVASCULAR: Negative for claudication and irregular heartbeat/palpitations. Reported MIs, normal ejection fraction on Echo GASTROINTESTINAL: Negative for abdominal pain, constipation, decreased appetite,diarrhea, nausea, or vomiting. GENITOURINARY: Negative for dysuria and hematuria. BREAST: One month right mastodynia diffusely over right breast (opposite side of abnormal left mammogram/biopsy + IDC)--improved after trial of valacyclovir. No palpable mass at mammographic abnormality. ENDOCRINE: Negative for cold intolerance and heat intolerance. CENTRAL NERVOUS SYSTEM: Negative for gait disturbance and headache. Multiple prior strokes (presents with facial droop) but no current or residual deficits. PSYCHIATRIC: Negative for anxiety or depression. DERMATOLOGICAL: Negative for pruritus and rash. Negative for suspicious skin lesions. MUSCULOSKELETAL: Negative for back pain and bone/joint symptoms. HEMATOLOGICAL: Negative for bleeding and easy bruising. Negative for history of transfusion or thromboembolic disease ALLERGY: Negative for environmental allergies and food allergies. ON LICENSE OF [facility] - Medical History Medical History: Medical History (Last Reviewed 01/13/22 @ 12:56 by Karoline Farmer MD) Breast cancer, left CHF (congestive heart failure) CVA (cerebral vascular accident) x 8 Depression Diabetes Diabetic retinopathy Gastric ulcer Heart attack x 9 Hyperlipidemia Hypertension Mild mitral regurgitation Neuropathy MAYTE (obstructive sleep apnea) wears CPAP Personal history of COVID-19 2020 Shingles outbreak right breast - Surgical History Surgical History: Surgical History (Last Reviewed 01/13/22 @ 12:56 by Karoline Farmer MD) H/O section History of tonsillectomy Hx of cataract removal with insertion of prosthetic lens Stented coronary artery - Family History Family History: Family History (Last Reviewed 01/13/22 @ 12:56 by Karoline Farmer MD) Mother Diabetes Pacemaker Mother Colon cancer Grandparent Skin cancer Grandparent Renal cancer Family/Other AICD (automatic cardioverter/defibrillator) present half brother - Social History Smoking Status: Never smoker Substance Use Type: None Social History Comments: lives in mobile home Home Medications & Allergies Allergies diphenhydramine [From Benadryl] Allergy (Verified 01/12/22 13:02) Hives Home Medications albuterol sulfate 90 mcg/actuation aerosol inhaler 2 puff INHALATION Q4-6H PRN 11/23/21 [History Confirmed 01/12/22] amlodipine 10 mg tablet 10 mg PO QAM 11/23/21 [History Confirmed 01/12/22] aspirin 81 mg tablet,delayed release 81 mg PO DAILY 11/23/21 [History Confirmed 01/12/22] atorvastatin 80 mg tablet 80 mg PO DAILY 11/23/21 [History Confirmed 01/12/22] bupropion HCl 150 mg 24 hr tablet, extended release (Wellbutrin XL) 150 mg PO QAM 11/23/21 [History Confirmed 01/12/22] carvedilol 12.5 mg tablet (Coreg) 12.5 mg PO BID 11/23/21 [History Confirmed 01/12/22] clopidogrel 75 mg tablet 75 mg PO QAM 11/23/21 [History Confirmed 01/12/22] insulin lispro protamine-lispro 100 unit/mL (75-25) subcutaneous pen (Humalog Mix 75-25 KwikPen) 50 unit SUBCUT QAM 11/23/21 [History Confirmed 01/12/22] lisinopril 10 mg tablet 10 mg PO BID 11/23/21 [History Confirmed 01/12/22] metformin 500 mg tablet,extended release 24 hr 500 mg PO BID 11/23/21 [History Confirmed 01/12/22] pantoprazole 40 mg tablet,delayed release (Protonix) 40 mg PO BID 11/23/21 [History Confirmed 01/12/22] pregabalin 150 mg capsule (Lyrica) 150 mg PO BID 11/23/21 [History Confirmed 01/12/22] insulin lispro protamine-lispro 100 unit/mL (75-25) subcutaneous pen (Humalog Mix 75-25 KwikPen) 40 unit SUBCUT QPM 12/06/21 [History Confirmed 01/12/22] acetaminophen 300 mg-codeine 30 mg tablet 1 tab PO Q4-6H PRN 5 Days #20 tab 12/20/21 [Rx Confirmed 01/12/22] ibuprofen 600 mg tablet 600 mg PO Q4-6H PRN 10 Days #14 tab 12/20/21 [Rx Confirmed 01/12/22] anastrozole 1 mg tablet (Arimidex) 1 mg PO DAILY #30 tab 01/12/22 [Rx] mometasone 0.1 % topical cream 1 applic TOPICAL DAILY #45 g 01/31/22 [Rx] Objective - Height/Weight Height/Weight: Height 5 ft 2.5 in Weight 101.2 kg - Vital Signs Vital Signs: 02/20/22 11:52 Temperature 98.2 F Pulse Rate [Left Brachial] 77 Respiratory Rate 18 Blood Pressure [Left Arm] 177/60 H 02 Sat by Pulse Oximetry 97 - Pain Left Breast Pain Intensity: 4 Physical Exam Narrative: CONSTITUTIONAL: The patient is in no acute distress. HEAD / FACE: Normocephalic. NOSE / MOUTH / THROAT: Nose, mouth, tongue and oropharynx are benign in appearance. No signs of inflammation. NECK / THYROID: Neck is supple. Thyroid is symmetrical, without thyromegaly, masses or palpable nodules. Breasts: Left breast without palpable mass or tenderness. No nipple discharge or deviation. Right breast without erythema or masses, no nipple discharge or deviation. No skin changes. LYMPHATIC: No palpable cervical, supraclavicular, axillary, or inguinal adenopathy. RESPIRATORY: Normal to inspection. Lungs clear to auscultation and percussion. No wheezing, rales, rhonchi or rubs. Normal effort. CARDIOVASCULAR: Regular rate and rhythm. No murmurs, gallops, or rubs. VASCULAR: Carotid, radial, femoral and pedal pulses present bilaterally. No bruits. ABDOMEN: Bowel sounds normoactive. Soft, nontender and non-distended. No hepatosplenomegaly. No masses. GENITOURINARY: No CVA tenderness. No suprapubic fullness or tenderness. No groinadenopathy. No evidence of hernias. INTEGUMENTARY: The skin is unremarkable. No rashes. No suspicious lesions BACK / SPINE: The back is nontender. MUSCULOSKELETAL: Normal musculature, no joint deformities or abnormalities, normal range of motion for all four extremities. EXTREMITIES: No edema, cyanosis or clubbing. No [place]che sign. NEUROLOGICAL: Alert and oriented. Cranial nerves intact. No gross motor or sensory deficits. PSYCHIATRIC: No anxiety or evidence of depression. - ECOG Performance Status ECOG Score: 0 Assessment and Plan - TNM Staging Staging: Prognostic stage Ia, pathologic stage I T1b, N0 Left breast invasive ductal carcinoma, [place] grade 2-3, ER >95% positive, AK >95% positive, Her2 1+ IHC, negative. (1) Carcinoma of upper-outer quadrant of left breast in female, estrogen receptor positive This is a 66 year old lady who originally presented with right mastodynia prompting mammogram, however she was found to have an abnormal left screening mammogram which led to spot compression views and ultrasound with subsequent biopsy confirming a diagnosis of invasive ductal carcinoma, provisional grade 2-3, ER >95% positive, AK >95% positive, Her2 equivocal by IHC, negative by FISH (HER/CEP17 1.4, copy number 3.33). This lesion is nonpalpable, less than 2 cm, and due to strong hormone positive, HER2 negative disease she is not a candidatefor neoadjuvant chemotherapy. She already has a surgical date in November [address] Hemphill--lumpectomy revealed T1b N0 MX [place] grade 2 breast cancer with size 0.9 cm. 01/12/2022: She returns for followup to discuss pathology of resection specimen and adjuvant therapy options. We decided against Oncotype DX due to size less than 1 cm, strongly ER/AK positive, HER-2 negative disease, and her comorbidities. We will refer for adjuvant radiation therapy evaluation and we discussed hormone antagonist therapy with anastrozole 1 mg daily. She will commence a 1 month trial following radiation therapy and follow-up with nurse practitioner to review side effects. The patient and her agree with this plan and express understanding over this 25-minute moderate complexity follow-up evaluation. 02/20/2022: Kyle is here for visit; completed adjuvant XRT today, 02/20/2022. As noted above, patient briefly took anastrozole x3 days prior to radiation; hasbeen off all AI therapy while taking radiation. She reportedly had a dizzy/woozy episode after taking anastrozole, however noted that she also had extremely high blood pressure, as well. She has longstanding chronic hypertension and is following both her PCP and cardiology, with recent changes in medications. Her baseline BP is approximately 160s to 170s systolic. Discussed referral back to her PCP: Patient reports having seen cardiology at [facility] approximately 3 weeks ago with adjustments in medications, although she is unsure which medications she is taking. We will request outsiderecords from cardiology - Dr. Garrett Mcdonald. Discussed adjuvant endocrine therapy extensively with the patient and her . The patient would like toretry taking anastrozole with 30-day trial. We discussed most common side effects to include myalgias/arthralgias, mild fatigue, hot flashes and decreasedbone strength. Patient to call and notify clinic if she experiences any issues. Otherwise, we will see the patient back in 1 month to review toxicities. (2) Mastodynia of right breast No obvious lesions of skin, but she has had multiple episodes of shingles in thepast and has persistent right mastodynia over the past month. Dr. Hemphill didnot find an etiology of the pain, but the patient agreed to an empiric trial of Valtrex 1g bid x 1 week for zoster sin herpeticum. She reports completely resolved right mastodynia symptoms at her 6-week follow-up. (3) Hypertension Qualifiers: Hypertension type: primary hypertension Qualified Code(s): I10 - Essential (primary) hypertension Blood pressure elevated today--followup with her primary care physician and cardiology, as noted above. (4) Coronary artery disease (5) History of stroke (6) Encounter for monitoring aromatase inhibitor therapy Initial discussion anastrozole 1 mg daily which will commence following adjuvantradiation therapy. Patient completed adjuvant radiation therapy on 02/20/2022. Patient to commence anastrozole 1 mg p.o. daily on 02/21/2022. Will reassess toxicities in 1 month. - Chemo Plan Chemo Plan (Dose, Rate, Freq): Anastrozole 1 mg daily with goal 5 years of adjuvant therapy following adjuvant radiation. Goal of Treatment: Curative - Time with Patient Time Spent with Patient (Follow Up Visit): 25 minutes Coordination of Care & Counseling Time: Greater than 50% of time spent with patient was for coordination of care (as documented) and [id number] counseling of patient and/or family. Dictated By: Lisa Orozco APRN DD/ [id number] Signed By: <Electronically signed by IVELISSE Orozco> 02/20/22 [address] [facility] Work Phone: 1(296) 111-417704-20-2022 Consult note Author Norleena Lavell [facility] January 18, 2022 4:10pm Note Date/Time January 18, 2022 1:5 9pm [facility] [place] [id number] Rad Onc Consult Note - OP Signed Patient: Kyle Powell MR#: [id number] : 1955 Acct:[id number] Age/Sex: 66 / F Type: REG RCR Copies to: MD Faraz Hartman II, MD Fredric Itzkowitz, DO~ Assessment & Plan (1) Carcinoma of upper-outer quadrant of left breast in female, estrogen receptor positive Plan: After cleared by surgery, can be scheduled for CT simulation-planned for partialbreast irradiation. Plan for partial breast irradiation 5.2 Segal x5 fractions consecutively (FAST FORWARD dosing with IMPORT LOW planning technique) Assessment Ms. 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 We reviewed her pathology in detail and discussed the implications of her low risk favorable disease. Tumor was grade 2, 9 mm in size, with a negative sentinel lymph node (0/1) with clear margins for both invasive disease as well as associated DCIS. There is no LVSI noted. The CALGBand PRIME trials would support the omission of radiation with endocrine therapy alone, however patient is started on her Arimidex which has been stopped secondary to side effects. Consequently I offered her hypofractionated breast radiation per the FAST FORWARD protocol to a dose of 26 Segal in 5 fractions. Patient has significant cardiac morbidities including 9 prior myocardial infarctions per her report and CHF. Her body habitus precludes prone positioning and she also meets criteria for partial breast irradiation which I think would be the best way to approach cardiac sparing and limit toxicity. Patient is still being seen by surgery with ongoing drainage of the seroma. Sheunderstands we will hold off on CT simulation until after she is cleared by surgery to proceed. I provided a general overview of radiation treatment planning and delivery. We discussed the need for immobilization and CT simulation. Short and long-term side effects were reviewed in detail and her questions were answered. She was consented to receive care Patient was counseled at length regarding the risk of increased short and long- term toxicity toxicity seen with uncontrolled diabetes. She was counseled to work closely with her primary care physician to ensure blood sugars were normalized during her treatment course. She communicated her understanding. HPI - Service Date/Time Date: 01/18/22 Time: 06:00 HPI: 66-year-old female with significant cardiac history including 9 heart attacks and strokes . She was treated for shingles over her right arm and leg and received the Shingrix vaccine. After receiving the vaccine she developed severeright breast pain and was sent for screening mammogram. She has the following oncologic history: October 13, 2021 screening mammogram at [facility] showed no abnormalities of the right breast but the left breast was concerning for a 1.2 spiculated nodule in the left upper outer quadrant. Spot compression mammogram and ultrasound confirmed an irregular hypoechoic mass in the 2 o'clock position measuring 8 mm in size. November 08, 2021 ultrasound-guided breast biopsy confirmed invasive ductal carcinoma, provisional grade 2 3, ER/AK positive HER2 equivocal by IHC, negativeby FISH. December 20, 2021 patient underwent left breast lumpectomy and sentinel lymph node biopsy. Pathology confirmed invasive ductal carcinoma, grade 2, 9 mm in size. All margins were negative. Closest margin was anteriorly at 1.5 mm. There was associated DCIS, 8 mm, intermediate nuclear grade 0.5 mm to the closest anteriormargin. 1 lymph node was negative for metastatic carcinoma. There was no lymphovascular space invasion. pT1b N0 Today patient has been initiated on Arimidex however has stopped it secondary toside effects. She continues to see surgery for drainage of the upper outer quadrant seroma and has an appointment today. Denies any postoperative pain. No issues with mobility of the arm. ON LICENSE OF [facility] - Medical History Medical History: Medical History (Last Reviewed 01/13/22 @ 12:56 by Karoline Farmer MD) Breast cancer, left CHF (congestive heart failure) CVA (cerebral vascular accident) x 8 Depression Diabetes Diabetic retinopathy Gastric ulcer Heart attack x 9 Hyperlipidemia Hypertension Mild mitral regurgitation Neuropathy MAYTE (obstructive sleep apnea) wears CPAP Personal history of COVID-19 2020 Shingles outbreak right breast - Surgical History Surgical History: Surgical History (Last Reviewed 01/13/22 @ 12:56 by Karoline Farmer MD) H/O section History of tonsillectomy Hx of cataract removal with insertion of prosthetic lens Stented coronary artery - Family History Family History: Family History (Last Reviewed 01/13/22 @ 12:56 by Karoline Farmer MD) Mother Diabetes Pacemaker Mother Colon cancer Grandparent Skin cancer Grandparent Renal cancer Family/Other AICD (automatic cardioverter/defibrillator) present half brother - Social History Smoking Status: Never smoker Substance Use Type: None Social History Comments: lives in mobile home Home Medications & Allergies Allergies diphenhydramine [From Benadryl] Allergy (Verified 01/12/22 13:02) Hives Home Medications albuterol sulfate 90 mcg/actuation aerosol inhaler 2 puff INHALATION Q4-6H PRN 11/23/21 [History Confirmed 01/12/22] amlodipine 10 mg tablet 10 mg PO QAM 11/23/21 [History Confirmed 01/12/22] aspirin 81 mg tablet,delayed release 81 mg PO DAILY 11/23/21 [History Confirmed 01/12/22] atorvastatin 80 mg tablet 80 mg PO DAILY 11/23/21 [History Confirmed 01/12/22] bupropion HCl 150 mg 24 hr tablet, extended release (Wellbutrin XL) 150 mg PO QAM 11/23/21 [History Confirmed 01/12/22] carvedilol 12.5 mg tablet (Coreg) 12.5 mg PO BID 11/23/21 [History Confirmed 01/12/22] clopidogrel 75 mg tablet 75 mg PO QAM 11/23/21 [History Confirmed 01/12/22] insulin lispro protamine-lispro 100 unit/mL (75-25) subcutaneous pen (Humalog Mix 75-25 KwikPen) 50 unit SUBCUT QAM 11/23/21 [History Confirmed 01/12/22] lisinopril 10 mg tablet 10 mg PO BID 11/23/21 [History Confirmed 01/12/22] metformin 500 mg tablet,extended release 24 hr 500 mg PO BID 11/23/21 [History Confirmed 01/12/22] pantoprazole 40 mg tablet,delayed release (Protonix) 40 mg PO BID 11/23/21 [History Confirmed 01/12/22] pregabalin 150 mg capsule (Lyrica) 150 mg PO BID 11/23/21 [History Confirmed 01/12/22] insulin lispro protamine-lispro 100 unit/mL (75-25) subcutaneous pen (Humalog Mix 75-25 KwikPen) 40 unit SUBCUT QPM 12/06/21 [History Confirmed 01/12/22] acetaminophen 300 mg-codeine 30 mg tablet 1 tab PO Q4-6H PRN 5 Days #20 tab 12/20/21 [Rx Confirmed 01/12/22] ibuprofen 600 mg tablet 600 mg PO Q4-6H PRN 10 Days #14 tab 12/20/21 [Rx Confirmed 01/12/22] anastrozole 1 mg tablet (Arimidex) 1 mg PO DAILY #30 tab 01/12/22 [Rx] Subjective ROS: I reviewed the 12-point Review of Systems with the patient as per our standard questionnaire. Objective Height 5 ft 2.5 in Weight 102 kg Temp 98.8 F 01/18/22 13:43 Pulse 80 01/18/22 13:43 Resp 22 01/18/22 13:43 BP 169/72 H 01/18/22 13:43 Pulse Ox 98 01/18/22 13:43 Pain: 0/10 Karnofsky Performance Scale: 90%: Can perform normal activity, minor signs of disease Physical Exam: Physical exam: General: Alert and oriented, no acute distress. HEENT: Normocephalic, extraocular movements intact Chest: Normal work of breathing on room air Breast: Left breast shows palpable seroma in the upper outer quadrant with healing surgical incision. There is mild erythema anterior breast but no clear concern for infection. Bilateral inframammary fold is moist. Right breast is negative for any palpable masses or lesions. Lymph: No palpable cervical, supraclavicular, axillary lymphadenopathy bilaterally. Exam limited by body habitus. Abdomen: Nonacute, obese MSK: Extremities within normal limits Dictated By: Ariel Monte MD DD/ [id number] Signed By: <Electronically signed by Ariel Monte MD> 01/18/22 [address] [facility] Work Phone: 1(499) 371-391704-15-2022 Progress note Author Karoline Farmer [facility] January 13, 2022 1:05pm Note Date/Time January 12, 2022 1:0 9pm [facility] [place] [id number] Hem/Onc Follow Up Note - OP Signed Patient: Kyle Powell MR#: [id number] : 1955 Acct:[id number] Age/Sex: 66 / F Type: REG RCR Copies to: MD Jac Springer II, DO Norleena Poynter, MD~ Subjective Date/Time of Service: Date of Service: 01/12/2022 Time of Service: 13:08 Chief Complaint: Patient is here today for 6 week follow for breast cancer of left side. No new concerns HPI: 01/12/2022: Mrs. Powell returns for follow-up after left breast lumpectomy. She notes she is healing well but has had drainage of seroma of incision. No surrounding erythema or tenderness. She does note that since 1 week Valtrex treatment of the right breast (uninvolved breast) pain that her mastodynia has completely resolved. Today we discussed results of her pathology showing T1b [id number] I breast cancer. Since she has less than 1 cm disease and strongly positive estrogen and progesterone receptors/HER-2 negative, I do not believe that Oncotype DX is warranted and recommended 5 years of aromatase inhibitor therapy. We will order baseline DEXA scan and we discussed potential toxicitiesof anastrozole including hot flashes, myalgias and arthralgias, rare GI upset and rashes. She will be given 1 month trial of anastrozole 1 mg daily and follow-up with nurse practitioner for toxicity review as well as review her DEXAscan. Patient and her expressed understanding over this 25-minute follow-up visit to review pathology and onto aromatase inhibitor counseling. PREVIOUS HISTORY: Original consult 11/25/2021 This is a 66-year-old lady who has significant comorbidities including 9 heart attacks and strokes with preserved ejection fraction on echocardiography (EF 60% November 2018). She also has a history of recurrent shingles mainly over her right arm as well as her right lower flank and leg. She reports that she has received the Shingrix vaccine and has no new skin lesions but developed a severe right breast pain about 1 month ago which she notes is intractable. She was sent for screening mammogram 10/13/2021 at [facility] showing no abnormalities of the right breast, but left breast showed a new 1.2 x 0.9cm spiculated nodule of left upper outer quadrant mid-breast. Subsequent spot compression mammogram and ultrasound showed an irregular hypoechoic mass in 2 o'clock position 10.7cm from nipple, [id number]. Ultrasound guided biopsy performed at [place] 11/08/21 confirmed diagnosis of invasive ductal carcinoma, provisional grade 2-3, ER >95% positive, AK >95% positive, Her2 equivocal by IHC, negative by FISH (HER/CEP17 1.4, copy number 3.33). She continues to have painful right breast, unclear etiology. She had prior shingles twice and I recommended trial of Valtrex 1g po bid for zoster sin herpeticum (no rash) for one week and contact her to see if this relieves her symptoms. She was referred to Dr. Hemphill yesterday and he scheduled her for lumpectomy/sentinel lymph node biopsy in early November (around 12/06/2021). I will see her in followup about 2 weeks post operative to review recommendations for adjuvant therapy. DIAGNOSIS: 1. Left upper outer quadrant 1.2cm x 0.9cm spiculated nodule at 2 o'clock, biopsy 11/07/2021: invasive ductal carcinoma, provisional grade 2-3, ER >95%, AK >95%, Her2 neg --12/20/2021: Left breast lumpectomy with left axillary sentinel lymph node: Invasive ductal carcinoma, [place] grade 2, tumor size 0.9 x 0.9 x 0.8 cm with margins negative. ER +95%, AK +95%, HER-2/diomedes negative IHC 1+, pT1b (sn)pN0 Mx 2. Right mastodynia x 1 month (no lesion right mammogram) 3. Coronary artery disease (multiple prior ID) 4. Cerebral vascular disease (multiple prior strokes, no residual deficits) 5. Prior history of shingles (VZV) and prior Shingrix vaccine - Summary of Therapies Summary of Therapies: 1. 12/20/2021: Left breast lumpectomy with left axillary sentinel lymph node 2. Met with radiation oncology for adjuvant radiation therapy discussion 3. Prescription to start aromatase inhibitor therapy with anastrozole 1 mg daily and follow-up with [facility]. This may commence following radiation therapy. ROS Details: All systems reviewed & no additional complaints except as documented Subjective/ROS - Narrative: CONSTITUTIONAL: Stable chronic fatigue, negative for fever or night sweats. HEAD AND NECK: Negative for changes in hearing and vision. Negative for mouth ulcers, nasal congestion and nasal drainage. PULMONARY: Negative for chest wall pain, cough and dyspnea. CARDIOVASCULAR: Negative for claudication and irregular heartbeat/palpitations. Reported MIs, normal ejection fraction on Echo GASTROINTESTINAL: Negative for abdominal pain, constipation, decreased appetite,diarrhea, nausea, or vomiting. GENITOURINARY: Negative for dysuria and hematuria. BREAST: One month right mastodynia diffusely over right breast (opposite side of abnormal left mammogram/biopsy + IDC)--improved after trial of valacyclovir. No palpable mass at mammographic abnormality. ENDOCRINE: Negative for cold intolerance and heat intolerance. CENTRAL NERVOUS SYSTEM: Negative for gait disturbance and headache. Multiple prior strokes (presents with facial droop) but no current or residual deficits. PSYCHIATRIC: Negative for anxiety or depression. DERMATOLOGICAL: Negative for pruritus and rash. Negative for suspicious skin lesions. MUSCULOSKELETAL: Negative for back pain and bone/joint symptoms. HEMATOLOGICAL: Negative for bleeding and easy bruising. Negative for history of transfusion or thromboembolic disease ALLERGY: Negative for environmental allergies and food allergies. PMFSH - History Attestation statement: The following information was validated with the patient. Source: Old Records Reviewed - Medical History Medical History: Medical History (Last Reviewed 01/13/22 @ 12:56 by Karoline Farmer MD) Breast cancer, left CHF (congestive heart failure) CVA (cerebral vascular accident) x 8 Depression Diabetes Diabetic retinopathy Gastric ulcer Heart attack x 9 Hyperlipidemia Hypertension Mild mitral regurgitation Neuropathy MAYTE (obstructive sleep apnea) wears CPAP Personal history of COVID-19 2020 Shingles outbreak right breast - Surgical History Surgical History: Surgical History (Last Reviewed 01/13/22 @ 12:56 by Karoline Farmer MD) H/O section History of tonsillectomy Hx of cataract removal with insertion of prosthetic lens Stented coronary artery - Family History Family History: Family History (Last Reviewed 01/13/22 @ 12:56 by Karoline Farmer MD) Mother Diabetes Pacemaker Mother Colon cancer Grandparent Skin cancer Grandparent Renal cancer Family/Other AICD (automatic cardioverter/defibrillator) present half brother - Social History Smoking Status: Never smoker Substance Use Type: None Social History Comments: lives in mobile home Home Medications & Allergies Allergies diphenhydramine [From Sisi] Allergy (Verified 01/12/22 13:02) Hives Home Medications albuterol sulfate 90 mcg/actuation aerosol inhaler 2 puff INHALATION Q4-6H PRN 11/23/21 [History Confirmed 01/12/22] amlodipine 10 mg tablet 10 mg PO QAM 11/23/21 [History Confirmed 01/12/22] aspirin 81 mg tablet,delayed release 81 mg PO DAILY 11/23/21 [History Confirmed 01/12/22] atorvastatin 80 mg tablet 80 mg PO DAILY 11/23/21 [History Confirmed 01/12/22] bupropion HCl 150 mg 24 hr tablet, extended release (Wellbutrin XL) 150 mg PO QAM 11/23/21 [History Confirmed 01/12/22] carvedilol 12.5 mg tablet (Coreg) 12.5 mg PO BID 11/23/21 [History Confirmed 01/12/22] clopidogrel 75 mg tablet 75 mg PO QAM 11/23/21 [History Confirmed 01/12/22] insulin lispro protamine-lispro 100 unit/mL (75-25) subcutaneous pen (Humalog Mix 75-25 KwikPen) 50 unit SUBCUT QAM 11/23/21 [History Confirmed 01/12/22] lisinopril 10 mg tablet 10 mg PO BID 11/23/21 [History Confirmed 01/12/22] metformin 500 mg tablet,extended release 24 hr 500 mg PO BID 11/23/21 [History Confirmed 01/12/22] pantoprazole 40 mg tablet,delayed release (Protonix) 40 mg PO BID 11/23/21 [History Confirmed 01/12/22] pregabalin 150 mg capsule (Lyrica) 150 mg PO BID 11/23/21 [History Confirmed 01/12/22] insulin lispro protamine-lispro 100 unit/mL (75-25) subcutaneous pen (Humalog Mix 75-25 KwikPen) 40 unit SUBCUT QPM 12/06/21 [History Confirmed 01/12/22] acetaminophen 300 mg-codeine 30 mg tablet 1 tab PO Q4-6H PRN 5 Days #20 tab 12/20/21 [Rx Confirmed 01/12/22] ibuprofen 600 mg tablet 600 mg PO Q4-6H PRN 10 Days #14 tab 12/20/21 [Rx Confirmed 01/12/22] anastrozole 1 mg tablet (Arimidex) 1 mg PO DAILY #30 tab 01/12/22 [Rx] Objective - Height/Weight Height/Weight: Height 5 ft 2.5 in Weight 101.151 kg - Vital Signs Vital Signs: 01/12/22 13:02 Temperature 98.0 F Pulse Rate [Left Brachial] 72 - Pain Left Breast Pain Intensity: 4 Physical Exam Narrative: CONSTITUTIONAL: The patient is in no acute distress. HEAD / FACE: Normocephalic. EYES: Pupils are equal and reactive to light. Conjunctivae and lids are benign in appearance. Ocular movement intact. EARS: Hearing mildly decreased (understands loud voice). Full postoperative exam deferred although inspection of area of seroma without surrounding erythema or drainage. Incision is well approximated. Please see physical exam from initial consult 11/25/2021 NOSE / MOUTH / THROAT: Nose, mouth, tongue and oropharynx are benign in appearance. No signs of inflammation. NECK / THYROID: Neck is supple. Thyroid is symmetrical, without thyromegaly, masses or palpable nodules. Breasts: Left breast without palpable mass or tenderness. No nipple discharge or deviation. Right breast without erythema or masses, no nipple discharge or deviation. No skin changes, but diffusely tender to palpation in right T4/T5 dermatome. LYMPHATIC: No palpable cervical, supraclavicular, axillary, or inguinal adenopathy. RESPIRATORY: Normal to inspection. Lungs clear to auscultation and percussion. No wheezing, rales, rhonchi or rubs. Normal effort. CARDIOVASCULAR: Regular rate and rhythm. No murmurs, gallops, or rubs. VASCULAR: Carotid, radial, femoral and pedal pulses present bilaterally. No bruits. ABDOMEN: Bowel sounds normoactive. Soft, nontender and non-distended. No hepatosplenomegaly. No masses. GENITOURINARY: No CVA tenderness. No suprapubic fullness or tenderness. No groinadenopathy. No evidence of hernias. INTEGUMENTARY: The skin is unremarkable. No rashes. No suspicious lesions BACK / SPINE: The back is nontender. MUSCULOSKELETAL: Normal musculature, no joint deformities or abnormalities, normal range of motion for all four extremities. EXTREMITIES: No edema, cyanosis or clubbing. No Uche sign. NEUROLOGICAL: Alert and oriented. Cranial nerves intact. No gross motor or sensory deficits. PSYCHIATRIC: No anxiety or evidence of depression. - ECOG Performance Status ECOG Score: 1 Results - Labs Labs: 12/06/2021: Preop labs with normal CBC, normal renal function - Impressions Screening mammogram 10/13/2021 at [facility] showing no abnormalities of the right breast, but left breast showed a new 1.2 x 0.9cm spiculated nodule of left upper outer quadrant mid-breast. Subsequent spot compression mammogram and ultrasound showed an irregular hypoechoic mass in 2 o'clock position 10.7cm from nipple, [id number]. Assessment and Plan - TNM Staging Staging: Prognostic stage Ia, pathologic stage I T1b, N0 Left breast invasive ductal carcinoma, [place] grade 2-3, ER >95% positive, AK >95% positive, Her2 1+ IHC, negative. (1) Carcinoma of upper-outer quadrant of left breast in female, estrogen receptor positive This is a 66 year old lady who originally presented with right mastodynia prompting mammogram, however she was found to have an abnormal left screening mammogram which led to spot compression views and ultrasound with subsequent biopsy confirming a diagnosis of invasive ductal carcinoma, provisional grade 2-3, ER >95% positive, AK >95% positive, Her2 equivocal by IHC, negative by FISH (HER/CEP17 1.4, copy number 3.33). This lesion is nonpalpable, less than 2 cm, and due to strong hormone positive, HER2 negative disease she is not a candidatefor neoadjuvant chemotherapy. She already has a surgical date in November [address] Hemphill--lumpectomy revealed T1b N0 MX [place] grade 2 breast cancer with size 0.9 cm. 01/12/2022: She returns for followup to discuss pathology of resection specimen and adjuvant therapy options. We decided against Oncotype DX due to size less than 1 cm, strongly ER/AK positive, HER-2 negative disease, and her comorbidities. We will refer for adjuvant radiation therapy evaluation and we discussed hormone antagonist therapy with anastrozole 1 mg daily. She will commence a 1 month trial following radiation therapy and follow-up with nurse practitioner to review side effects. The patient and her agree with this plan and express understanding over this 25-minute moderate complexity follow-up evaluation. (2) Mastodynia of right breast No obvious lesions of skin, but she has had multiple episodes of shingles in thepast and has persistent right mastodynia over the past month. Dr. Hemphill didnot find an etiology of the pain, but the patient agreed to an empiric trial of Valtrex 1g bid x 1 week for zoster sin herpeticum. She reports completely resolved right mastodynia symptoms at her 6-week follow-up. (3) Hypertension Qualifiers: Hypertension type: primary hypertension Qualified Code(s): I10 - Essential (primary) hypertension Blood pressure elevated today--followup with her primary care physician. (4) Coronary artery disease (5) History of stroke (6) Encounter for monitoring aromatase inhibitor therapy Initial discussion anastrozole 1 mg daily which will commence following adjuvantradiation therapy. - Chemo Plan Chemo Plan (Dose, Rate, Freq): Anastrozole 1 mg daily with goal 5 years of adjuvant therapy following adjuvant radiation. - Time with Patient Time Spent with Patient (Follow Up Visit): 25 minutes Coordination of Care & Counseling Time: Greater than 50% of time spent with patient was for coordination of care (as documented) and [id number] counseling of patient and/or family. Dictated By: Karoline Farmer MD DD/ [id number] Signed By: <Electronically signed by MD Karoline Farmer> 01/13/22 [address] [facility] Work Phone: 1(705) 289-897704-15-2022 Progress note Author Karoline Farmer [facility] January 13, 2022 1:05pm Note Date/Time January 12, 2022 1:0 9pm [facility] [place] [address] Hem/Onc Follow Up Note - OP Signed Patient: Kyle Powell MR#: [id number] : 1955 Acct:[id number] Age/Sex: 66 / F Type: REG RCR Copies to: MD Jac Springer II, DO Norleena Poynter, MD~ Subjective Date/Time of Service: Date of Service: 01/12/2022 Time of Service: 13:08 Chief Complaint: Patient is here today for 6 week follow for breast cancer of left side. No new concerns HPI: 01/12/2022: Mrs. Powell returns for follow-up after left breast lumpectomy. She notes she is healing well but has had drainage of seroma of incision. No surrounding erythema or tenderness. She does note that since 1 week Valtrex treatment of the right breast (uninvolved breast) pain that her mastodynia has completely resolved. Today we discussed results of her pathology showing T1b [id number] I breast cancer. Since she has less than 1 cm disease and strongly positive estrogen and progesterone receptors/HER-2 negative, I do not believe that Oncotype DX is warranted and recommended 5 years of aromatase inhibitor therapy. We will order baseline DEXA scan and we discussed potential toxicitiesof anastrozole including hot flashes, myalgias and arthralgias, rare GI upset and rashes. She will be given 1 month trial of anastrozole 1 mg daily and follow-up with nurse practitioner for toxicity review as well as review her DEXAscan. Patient and her expressed understanding over this 25-minute follow-up visit to review pathology and onto aromatase inhibitor counseling. PREVIOUS HISTORY: Original consult 11/25/2021 This is a 66-year-old lady who has significant comorbidities including 9 heart attacks and strokes with preserved ejection fraction on echocardiography (EF 60% November 2018). She also has a history of recurrent shingles mainly over her right arm as well as her right lower flank and leg. She reports that she has received the Shingrix vaccine and has no new skin lesions but developed a severe right breast pain about 1 month ago which she notes is intractable. She was sent for screening mammogram 10/13/2021 at [facility] showing no abnormalities of the right breast, but left breast showed a new 1.2 x 0.9cm spiculated nodule of left upper outer quadrant mid-breast. Subsequent spot compression mammogram and ultrasound showed an irregular hypoechoic mass in 2 o'clock position 10.7cm from nipple, [id number]. Ultrasound guided biopsy performed at [place] 11/08/21 confirmed diagnosis of invasive ductal carcinoma, provisional grade 2-3, ER >95% positive, AK >95% positive, Her2 equivocal by IHC, negative by FISH (HER/CEP17 1.4, copy number 3.33). She continues to have painful right breast, unclear etiology. She had prior shingles twice and I recommended trial of Valtrex 1g po bid for zoster sin herpeticum (no rash) for one week and contact her to see if this relieves her symptoms. She was referred to Dr. Hemphill yesterday and he scheduled her for lumpectomy/sentinel lymph node biopsy in early November (around 12/06/2021). I will see her in followup about 2 weeks post operative to review recommendations for adjuvant therapy. DIAGNOSIS: 1. Left upper outer quadrant 1.2cm x 0.9cm spiculated nodule at 2 o'clock, biopsy 11/07/2021: invasive ductal carcinoma, provisional grade 2-3, ER >95%, AK >95%, Her2 neg --12/20/2021: Left breast lumpectomy with left axillary sentinel lymph node: Invasive ductal carcinoma, [place] grade 2, tumor size 0.9 x 0.9 x 0.8 cm with margins negative. ER +95%, AK +95%, HER-2/diomedes negative IHC 1+, pT1b (sn)pN0 Mx 2. Right mastodynia x 1 month (no lesion right mammogram) 3. Coronary artery disease (multiple prior ID) 4. Cerebral vascular disease (multiple prior strokes, no residual deficits) 5. Prior history of shingles (VZV) and prior Shingrix vaccine - Summary of Therapies Summary of Therapies: 1. 12/20/2021: Left breast lumpectomy with left axillary sentinel lymph node 2. Met with radiation oncology for adjuvant radiation therapy discussion 3. Prescription to start aromatase inhibitor therapy with anastrozole 1 mg daily and follow-up with [facility]. This may commence following radiation therapy. ROS Details: All systems reviewed & no additional complaints except as documented Subjective/ROS - Narrative: CONSTITUTIONAL: Stable chronic fatigue, negative for fever or night sweats. HEAD AND NECK: Negative for changes in hearing and vision. Negative for mouth ulcers, nasal congestion and nasal drainage. PULMONARY: Negative for chest wall pain, cough and dyspnea. CARDIOVASCULAR: Negative for claudication and irregular heartbeat/palpitations. Reported MIs, normal ejection fraction on Echo GASTROINTESTINAL: Negative for abdominal pain, constipation, decreased appetite,diarrhea, nausea, or vomiting. GENITOURINARY: Negative for dysuria and hematuria. BREAST: One month right mastodynia diffusely over right breast (opposite side of abnormal left mammogram/biopsy + IDC)--improved after trial of valacyclovir. No palpable mass at mammographic abnormality. ENDOCRINE: Negative for cold intolerance and heat intolerance. CENTRAL NERVOUS SYSTEM: Negative for gait disturbance and headache. Multiple prior strokes (presents with facial droop) but no current or residual deficits. PSYCHIATRIC: Negative for anxiety or depression. DERMATOLOGICAL: Negative for pruritus and rash. Negative for suspicious skin lesions. MUSCULOSKELETAL: Negative for back pain and bone/joint symptoms. HEMATOLOGICAL: Negative for bleeding and easy bruising. Negative for history of transfusion or thromboembolic disease ALLERGY: Negative for environmental allergies and food allergies. ON LICENSE OF [facility] - History Attestation statement: The following information was validated with the patient. Source: Old Records Reviewed - Medical History Medical History: Medical History (Last Reviewed 01/13/22 @ 12:56 by Karoline Farmer MD) Breast cancer, left CHF (congestive heart failure) CVA (cerebral vascular accident) x 8 Depression Diabetes Diabetic retinopathy Gastric ulcer Heart attack x 9 Hyperlipidemia Hypertension Mild mitral regurgitation Neuropathy MAYTE (obstructive sleep apnea) wears CPAP Personal history of COVID-19 2020 Shingles outbreak right breast - Surgical History Surgical History: Surgical History (Last Reviewed 01/13/22 @ 12:56 by Karoline Farmer MD) H/O section History of tonsillectomy Hx of cataract removal with insertion of prosthetic lens Stented coronary artery - Family History Family History: Family History (Last Reviewed 01/13/22 @ 12:56 by Karoline Farmer MD) Mother Diabetes Pacemaker Mother Colon cancer Grandparent Skin cancer Grandparent Renal cancer Family/Other AICD (automatic cardioverter/defibrillator) present half brother - Social History Smoking Status: Never smoker Substance Use Type: None Social History Comments: lives in mobile home Home Medications & Allergies Allergies diphenhydramine [From Benadryl] Allergy (Verified 01/12/22 13:02) Hives Home Medications albuterol sulfate 90 mcg/actuation aerosol inhaler 2 puff INHALATION Q4-6H PRN 11/23/21 [History Confirmed 01/12/22] amlodipine 10 mg tablet 10 mg PO QAM 11/23/21 [History Confirmed 01/12/22] aspirin 81 mg tablet,delayed release 81 mg PO DAILY 11/23/21 [History Confirmed 01/12/22] atorvastatin 80 mg tablet 80 mg PO DAILY 11/23/21 [History Confirmed 01/12/22] bupropion HCl 150 mg 24 hr tablet, extended release (Wellbutrin XL) 150 mg PO QAM 11/23/21 [History Confirmed 01/12/22] carvedilol 12.5 mg tablet (Coreg) 12.5 mg PO BID 11/23/21 [History Confirmed 01/12/22] clopidogrel 75 mg tablet 75 mg PO QAM 11/23/21 [History Confirmed 01/12/22] insulin lispro protamine-lispro 100 unit/mL (75-25) subcutaneous pen (Humalog Mix 75-25 KwikPen) 50 unit SUBCUT QAM 11/23/21 [History Confirmed 01/12/22] lisinopril 10 mg tablet 10 mg PO BID 11/23/21 [History Confirmed 01/12/22] metformin 500 mg tablet,extended release 24 hr 500 mg PO BID 11/23/21 [History Confirmed 01/12/22] pantoprazole 40 mg tablet,delayed release (Protonix) 40 mg PO BID 11/23/21 [History Confirmed 01/12/22] pregabalin 150 mg capsule (Lyrica) 150 mg PO BID 11/23/21 [History Confirmed 01/12/22] insulin lispro protamine-lispro 100 unit/mL (75-25) subcutaneous pen (Humalog Mix 75-25 KwikPen) 40 unit SUBCUT QPM 12/06/21 [History Confirmed 01/12/22] acetaminophen 300 mg-codeine 30 mg tablet 1 tab PO Q4-6H PRN 5 Days #20 tab 12/20/21 [Rx Confirmed 01/12/22] ibuprofen 600 mg tablet 600 mg PO Q4-6H PRN 10 Days #14 tab 12/20/21 [Rx Confirmed 01/12/22] anastrozole 1 mg tablet (Arimidex) 1 mg PO DAILY #30 tab 01/12/22 [Rx] Objective - Height/Weight Height/Weight: Height 5 ft 2.5 in Weight 101.151 kg - Vital Signs Vital Signs: 01/12/22 13:02 Temperature 98.0 F Pulse Rate [Left Brachial] 72 - Pain Left Breast Pain Intensity: 4 Physical Exam Narrative: CONSTITUTIONAL: The patient is in no acute distress. HEAD / FACE: Normocephalic. EYES: Pupils are equal and reactive to light. Conjunctivae and lids are benign in appearance. Ocular movement intact. EARS: Hearing mildly decreased (understands loud voice). Full postoperative exam deferred although inspection of area of seroma without surrounding erythema or drainage. Incision is well approximated. Please see physical exam from initial consult 11/25/2021 NOSE / MOUTH / THROAT: Nose, mouth, tongue and oropharynx are benign in appearance. No signs of inflammation. NECK / THYROID: Neck is supple. Thyroid is symmetrical, without thyromegaly, masses or palpable nodules. Breasts: Left breast without palpable mass or tenderness. No nipple discharge or deviation. Right breast without erythema or masses, no nipple discharge or deviation. No skin changes, but diffusely tender to palpation in right T4/T5 dermatome. LYMPHATIC: No palpable cervical, supraclavicular, axillary, or inguinal adenopathy. RESPIRATORY: Normal to inspection. Lungs clear to auscultation and percussion. No wheezing, rales, rhonchi or rubs. Normal effort. CARDIOVASCULAR: Regular rate and rhythm. No murmurs, gallops, or rubs. VASCULAR: Carotid, radial, femoral and pedal pulses present bilaterally. No bruits. ABDOMEN: Bowel sounds normoactive. Soft, nontender and non-distended. No hepatosplenomegaly. No masses. GENITOURINARY: No CVA tenderness. No suprapubic fullness or tenderness. No groinadenopathy. No evidence of hernias. INTEGUMENTARY: The skin is unremarkable. No rashes. No suspicious lesions BACK / SPINE: The back is nontender. MUSCULOSKELETAL: Normal musculature, no joint deformities or abnormalities, normal range of motion for all four extremities. EXTREMITIES: No edema, cyanosis or clubbing. No Uche sign. NEUROLOGICAL: Alert and oriented. Cranial nerves intact. No gross motor or sensory deficits. PSYCHIATRIC: No anxiety or evidence of depression. - ECOG Performance Status ECOG Score: 1 Results - Labs Labs: 12/06/2021: Preop labs with normal CBC, normal renal function - Impressions Screening mammogram 10/13/2021 at [facility] showing no abnormalities of the right breast, but left breast showed a new 1.2 x 0.9cm spiculated nodule of left upper outer quadrant mid-breast. Subsequent spot compression mammogram and ultrasound showed an irregular hypoechoic mass in 2 o'clock position 10.7cm from nipple, [id number]. Assessment and Plan - TNM Staging Staging: Prognostic stage Ia, pathologic stage I T1b, N0 Left breast invasive ductal carcinoma, [place] grade 2-3, ER >95% positive, AK >95% positive, Her2 1+ IHC, negative. (1) Carcinoma of upper-outer quadrant of left breast in female, estrogen receptor positive This is a 66 year old lady who originally presented with right mastodynia prompting mammogram, however she was found to have an abnormal left screening mammogram which led to spot compression views and ultrasound with subsequent biopsy confirming a diagnosis of invasive ductal carcinoma, provisional grade 2-3, ER >95% positive, AK >95% positive, Her2 equivocal by IHC, negative by FISH (HER/CEP17 1.4, copy number 3.33). This lesion is nonpalpable, less than 2 cm, and due to strong hormone positive, HER2 negative disease she is not a candidatefor neoadjuvant chemotherapy. She already has a surgical date in November [address] Hemphill--lumpectomy revealed T1b N0 MX [place] grade 2 breast cancer with size 0.9 cm. 01/12/2022: She returns for followup to discuss pathology of resection specimen and adjuvant therapy options. We decided against Oncotype DX due to size less than 1 cm, strongly ER/AK positive, HER-2 negative disease, and her comorbidities. We will refer for adjuvant radiation therapy evaluation and we discussed hormone antagonist therapy with anastrozole 1 mg daily. She will commence a 1 month trial following radiation therapy and follow-up with nurse practitioner to review side effects. The patient and her agree with this plan and express understanding over this 25-minute moderate complexity follow-up evaluation. (2) Mastodynia of right breast No obvious lesions of skin, but she has had multiple episodes of shingles in thepast and has persistent right mastodynia over the past month. Dr. Hemphill didnot find an etiology of the pain, but the patient agreed to an empiric trial of Valtrex 1g bid x 1 week for zoster sin herpeticum. She reports completely resolved right mastodynia symptoms at her 6-week follow-up. (3) Hypertension Qualifiers: Hypertension type: primary hypertension Qualified Code(s): I10 - Essential (primary) hypertension Blood pressure elevated today--followup with her primary care physician. (4) Coronary artery disease (5) History of stroke (6) Encounter for monitoring aromatase inhibitor therapy Initial discussion anastrozole 1 mg daily which will commence following adjuvantradiation therapy. - Chemo Plan Chemo Plan (Dose, Rate, Freq): Anastrozole 1 mg daily with goal 5 years of adjuvant therapy following adjuvant radiation. - Time with Patient Time Spent with Patient (Follow Up Visit): 25 minutes Coordination of Care & Counseling Time: Greater than 50% of time spent with patient was for coordination of care (as documented) and [id number] counseling of patient and/or family. Dictated By: Karoline Farmer MD DD/ 1308 Signed By: <Electronically signed by MD Karoline Farmer> 01/13/22 [address] [facility] Work Phone: [phone]) [phone] Consult note Author Karoline Farmer [facility] November 25, 2021 8:58pm Note Date/Time November 25, 2021 11:32am [facility] [place] [address] Hem/Onc Consult Note - OP Signed Patient: Kyle Powell MR#: [id number] : 1955 Acct:[id number] Age/Sex: 66 / F Type: REG RCR Copies to: MD Jac Springer II, DO~ HPI Date/Time of Service: Date of Service: 11/25/2021 Time of Service: 11:31 Referring Provider/PCP: Referring Provider: Faraz Osman II, MD PCP: Faraz Osman II, MD - History of Present Illness Reason for Consultation: Patient was found to have abnormal screening mammography with biopsy at [facility] for invasive ductal carcinoma. Referred to both general surgery who she saw yesterday and me to discuss appropriate management. Tumor appears to be8 x 7 x 7 mm on ultrasound at the 2 o'clock position. ER positive, AK positive,HER-2 negative by FISH, provisional grade 2-3. Patient originally presented forright breast pain but no abnormalities on mammography. Chief Complaint: Right breast pain (opposite side of her biopsy positive new diagnosis of breast cancer). She notes that this has been worse and unbearable. HPI: Dear Dr. Osman and Joby, I had the great pleasure of seeing your patient in consultation. Thank you verymuch for your referral. As you know this is a 66-year-old lady who has significant comorbidities including 9 heart attacks and strokes with preservedejection fraction on echocardiography (EF 60% November 2018). She also has a history of recurrent shingles mainly over her right arm as well as her right lower flank and leg. She reports that she has received the Shingrix vaccine andhas no new skin lesions but developed a severe right breast pain about 1 month ago which she notes is intractable. She was sent for screening mammogram 10/13/2021 at [facility] showing no abnormalities of the right breast, butleft breast showed a new 1.2 x 0.9cm spiculated nodule of left upper outer quadrant mid-breast. Subsequent spot compression mammogram and ultrasound showed an irregular hypoechoic mass in 2 o'clock position 10.7cm from nipple, [id number]. Ultrasound guided biopsy performed at [place] 11/08/21 confirmed diagnosis of invasive ductal carcinoma, provisional grade 2-3, ER >95% positive,AK >95% positive, Her2 equivocal by IHC, negative by FISH (HER/CEP17 1.4, copy number 3.33). She continues to have painful right breast, unclear etiology. She had prior shingles twice and I recommended trial of Valtrex 1g po bid for zoster sin herpeticum (no rash) for one week and contact her to see if this relieves her symptoms. She was referred to Dr. Hemphill yesterday and he scheduled her for lumpectomy/sentinel lymph node biopsy in early November (around 12/06/2021). I will see her in followup about 2 weeks post operative to review recommendations for adjuvant therapy. ON LICENSE OF [facility] - History Attestation statement: The following information was validated with the patient. Source: Old Records Reviewed - Medical History Medical History: Medical History (Last Reviewed 11/25/21 @ 20:18 by Karoline Farmer MD) CHF (congestive heart failure) CVA (cerebral vascular accident) Diabetes Diabetic retinopathy Gastric ulcer Heart attack Hemiplegia Hyperlipidemia Hypertension Mild mitral regurgitation MAYTE (obstructive sleep apnea) Tremor - Surgical History Surgical History: Surgical History (Last Reviewed 11/25/21 @ 20:18 by Karoline Farmer MD) H/O section History of tonsillectomy Hx of cataract removal with insertion of prosthetic lens - Family History Family History: Family History (Last Reviewed 11/25/21 @ 20:18 by Karoline Farmer MD) Mother Diabetes Mother Colon cancer Grandparent Skin cancer Grandparent Renal cancer - Social History Smoking Status: Never smoker Home Medications & Allergies Allergies No Known Allergies Allergy (Verified 11/25/21 11:10) Home Medications albuterol sulfate 90 mcg/actuation aerosol inhaler 2 puff INHALATION Q4-6H PRN 11/23/21 [History Confirmed 11/25/21] amlodipine 10 mg tablet 10 mg PO DAILY 11/23/21 [History Confirmed 11/25/21] aspirin 81 mg tablet,delayed release 81 mg PO DAILY 11/23/21 [History Confirmed 11/25/21] atorvastatin 80 mg tablet 80 mg PO DAILY 11/23/21 [History Confirmed 11/25/21] bupropion HCl 150 mg 24 hr tablet, extended release (Wellbutrin XL) 150 mg PO QAM 11/23/21 [History Confirmed 11/25/21] carvedilol 12.5 mg tablet (Coreg) 12.5 mg PO BID 11/23/21 [History Confirmed 11/25/21] clopidogrel 75 mg tablet 75 mg PO DAILY 11/23/21 [History Confirmed 11/25/21] insulin lispro protamine-lispro 100 unit/mL (75-25) subcutaneous pen (Humalog Mix 75-25 KwikPen) 40 unit SUBCUT BID 11/23/21 [History Confirmed 11/25/21] lisinopril 10 mg tablet 10 mg PO BID 11/23/21 [History Confirmed 11/25/21] metformin 500 mg tablet,extended release 24 hr 500 mg PO BID 11/23/21 [History Confirmed 11/25/21] pantoprazole 40 mg tablet,delayed release (Protonix) 40 mg PO BID 11/23/21 [History Confirmed 11/25/21] pregabalin 150 mg capsule (Lyrica) 150 mg PO BID 11/23/21 [History Confirmed 11/25/21] valacyclovir 1 gram tablet (Valtrex) 1,000 mg PO BID 14 Days #28 tab 11/25/21 [Rx] Subjective Data - Diagnosis DIAGNOSIS: 1. Left upper outer quadrant 1.2cm x 0.9cm spiculated nodule at 2 o'clock, biopsy 11/07/2021: invasive ductal carcinoma, provisional grade 2-3, ER >95%, AK >95%, Her2 neg 2. Right mastodynia x 1 month (no lesion right mammogram) 3. Coronary artery disease (multiple prior ID) 4. Cerebral vascular disease (multiple prior strokes, no residual deficits) 5. Prior history of shingles (VZV) and prior Shingrix vaccine Subjective/ROS - Narrative: CONSTITUTIONAL: Stable chronic fatigue, negative for fever or night sweats. HEAD AND NECK: Negative for changes in hearing and vision. Negative for mouth ulcers, nasal congestion and nasal drainage. PULMONARY: Negative for chest wall pain, cough and dyspnea. CARDIOVASCULAR: Negative for claudication and irregular heartbeat/palpitations. Reported MIs, normal ejection fraction on Echo GASTROINTESTINAL: Negative for abdominal pain, constipation, decreased appetite,diarrhea, nausea, or vomiting. GENITOURINARY: Negative for dysuria and hematuria. BREAST: One month right mastodynia diffusely over right breast (opposite side of abnormal left mammogram/biopsy + IDC). No palpable mass at mammographic abnormality. ENDOCRINE: Negative for cold intolerance and heat intolerance. CENTRAL NERVOUS SYSTEM: Negative for gait disturbance and headache. Multiple prior strokes (presents with facial droop) but no current or residual deficits. PSYCHIATRIC: Negative for anxiety or depression. DERMATOLOGICAL: Negative for pruritus and rash. Negative for suspicious skin lesions. MUSCULOSKELETAL: Negative for back pain and bone/joint symptoms. HEMATOLOGICAL: Negative for bleeding and easy bruising. Negative for history of transfusion or thromboembolic disease ALLERGY: Negative for environmental allergies and food allergies. ROS Details: All systems reviewed & no additional complaints except as documented Objective - Height/Weight Height/Weight: Height 5 ft 2.5 in - Vital Signs Vital Signs: no temp recorded, P 88, R 16, BP 188/101, SaO2 96% RA Physical Exam Narrative: CONSTITUTIONAL: The patient is in no acute distress. HEAD / FACE: Normocephalic. EYES: Pupils are equal and reactive to light. Conjunctivae and lids are benign in appearance. Ocular movement intact. EARS: Hearing mildly decreased (understands loud voice). NOSE / MOUTH / THROAT: Nose, mouth, tongue and oropharynx are benign in appearance. No signs of inflammation. NECK / THYROID: Neck is supple. Thyroid is symmetrical, without thyromegaly, masses or palpable nodules. Breasts: Left breast without palpable mass or tenderness. No nipple discharge or deviation. Right breast without erythema or masses, no nipple discharge or deviation. No skin changes, but diffusely tender to palpation in right T4/T5 dermatome. LYMPHATIC: No palpable cervical, supraclavicular, axillary, or inguinal adenopathy. RESPIRATORY: Normal to inspection. Lungs clear to auscultation and percussion. No wheezing, rales, rhonchi or rubs. Normal effort. CARDIOVASCULAR: Regular rate and rhythm. No murmurs, gallops, or rubs. VASCULAR: Carotid, radial, femoral and pedal pulses present bilaterally. No bruits. ABDOMEN: Bowel sounds normoactive. Soft, nontender and non-distended. No hepatosplenomegaly. No masses. GENITOURINARY: No CVA tenderness. No suprapubic fullness or tenderness. No groinadenopathy. No evidence of hernias. INTEGUMENTARY: The skin is unremarkable. No rashes. No suspicious lesions BACK / SPINE: The back is nontender. MUSCULOSKELETAL: Normal musculature, no joint deformities or abnormalities, normal range of motion for all four extremities. EXTREMITIES: No edema, cyanosis or clubbing. No Uche sign. NEUROLOGICAL: Alert and oriented. Cranial nerves intact. No gross motor or sensory deficits. PSYCHIATRIC: No anxiety or evidence of depression. - ECOG Performance Status ECOG Score: 1 Results - Labs Labs: No laboratories for review. - Impressions Screening mammogram 10/13/2021 at [facility] showing no abnormalities of the right breast, but left breast showed a new 1.2 x 0.9cm spiculated nodule of left upper outer quadrant mid-breast. Subsequent spot compression mammogram and ultrasound showed an irregular hypoechoic mass in 2 o'clock position 10.7cm from nipple, [id number]. 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 (1) Carcinoma of upper-outer quadrant of left breast in female, estrogen receptor positive This is a 66 year old lady who originally presented with right mastodynia prompting mammogram, however she was found to have an abnormal left screening mammogram which led to spot compression views and ultrasound with subsequent biopsy confirming a diagnosis of invasive ductal carcinoma, provisional grade 2-3, ER >95% positive, AK >95% positive, Her2 equivocal by IHC, negative by FISH (HER/CEP17 1.4, copy number 3.33). This lesion is nonpalpable, less than 2 cm, and due to strong hormone positive, HER2 negative disease she is not a candidatefor neoadjuvant chemotherapy. She already has a surgical date in early November [address] Hemphill--she will return for followup to discuss pathology and adjuvant therapy options. The patient and her express understanding over this moderate complexity initial consultation. I would like to thank you very much for the courtesy of this referral. I will keep you up-to-date with this patient's progress. Should you have any questionsregarding the management of this patient, please do not hesitate to contact me. Sincerely, Karoline Farmer MD, FACP Medical Oncology (2) Mastodynia of right breast No obvious lesions of skin, but she has had multiple episodes of shingles in thepast and has persistent right mastodynia over the past month. Dr. Hemphill didnot find an etiology of the pain, but the patient agrees to an empiric trial of Valtrex 1g bid x 1 week for zoster sin herpeticum. We will reevaluate her symptoms in 3-4 weeks. (3) Hypertension Qualifiers: Hypertension type: primary hypertension Qualified Code(s): I10 - Essential (primary) hypertension Blood pressure elevated today--followup with her primary care physician. (4) Coronary artery disease (5) History of stroke - Time with Patient Total Time Spent with Patient (Consult): 45 mins - Review history, physical, outside records and address right mastodynia, left new diagnosis breast cancer. Coordination of Care & Counseling Time: Greater than 50% of time spent with patient was for coordination of care (as documented) and [id number] counseling of patient and/or family. 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 génesis History of stroke chronic Hypertension chronic [facility] Work Phone: Evaluation note* Diagnosis Onset Date Resolution Status [id number] acute Encounter for monitoring aromatase inhibitor therapy acute Coronary artery disease 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 génesis History of stroke chronic Hypertension chronic Mastodynia of right breast r esolved [facility] Work Phone: Evaluation noteNo assessment information available [facility] Work Phone: Evaluohvut note* Diagnosis Bilateral carpal tunnel syndrome- Primary Carpal tunnel syndrome [facility] Diagnosis Carpal tunnel syndrome, bilateral- Primary Carpal tunnel syndrome Bilateral carpal tunnel syndrome Carpal tunnel syndrome Hand weakness Muscle weakness (generalized) [facility]* Diagnosis Carpal tunnel syndrome, bilateral- Primary Carpal tunnel syndrome Hand weakness Muscle weakness (generalized) [facility] N[facility]ative - Reported* Type Description Date Medical History HTN Medical History hyperlipidemia Medical History DM II Medical History Congestive Heart Failure Medical History stroke Medical History heart attack Medical History CAD with stents Surgical History cardiac stents Surgical History lumpectomy left breast Surgical History coccyx removal Surgical History tonsillectomy Surgical History [facility] Discharge instructions No data available for this section [facility] No data available for this section [facility] (narrative)* Consultation (Routine) - Authorized Specialty Diagnoses / Procedures Referred By Emely t Referred To Contact Occupational Therapy / Physical Therapy Diagnoses Bilateral carpal tunnel syndrome Procedures AK OFFICE/OUTPATIENT NEW HIGH MDM 60 MINUTES Jerson Anton, DO [address] [place] [address] Roseann Vicente, OT [address] [place] [address] Referral ID Status Reason Start Date Expiration Date Visits Requested Visits Authorized [id number] Authorized Consult and Treat 11/06/2023 05/04/2024 1 1 [facility] HealthcareReason for visit Narrative* Consultation (Routine) - Authorized Specialty Diagnoses / Procedures Referred By Contac t Referred To Contact Occupational Therapy / Physical Therapy Diagnoses Bilateral carpal tunnel syndrome Procedures AK OFFICE/OUTPATIENT NEW HIGH MDM 60 MINUTES Jerson Anton DO [address] [place] [address] Roseann Vicente, OT [address] [place] [address] Referral ID Status Reason Start Date Expiration Date Visits Requested Visits Authorized [id number] Authorized Consult and Treat 11/06/2023 05/04/2024 99 99 [facility] Healthcare Summary Purpose Family History No Family History Records Found Relationship Condition Age at Onset Recorded Date/T suresh Not Specified Diabetes mellitus Unknown Presence of cardiac pacemaker Unknown Not Specified Malignant neoplasm of colon Unknown grandparent Malignant neoplasm of skin Unknown grandparent Malignant neoplasm of kidney Unknown family member Presence of implanta ble cardioverter-defibrillator (ICD) Unknown Advance Directives No Advanced Directives Records Found Advance Directive Response Recorded Date/ Time Advance Directives No November 3:51pm Hospital Course Note MR#: [id number] [facility] Pt. Name: Kyle Powell Admitted: 04/28/2018 Discharged: 05/03/2018 Date of : 1955 Physician: Miguel Dempsey MD DISCHARGE SUMMARY DISCHARGING PHYSICIAN: Dr. Rivera. PRIMARY CARE PHYSICIAN: Wilmar Morris D.O. PRIMARY DIAGNOSES: 1. Right thalamus ischemic stroke. 2. Uncontrolled hypertension, now controlled. 3. Insulin-dependent diabetes mellitus type 2, uncontrolled. A1c 13.7. 4. Noncompliance with the medications. SECONDARY DIAGNOSES: 1. Coronary artery disease, status post stent placement x3. 2. Dyslipidemia. CONSULTS: Stroke team. PROCEDURE: Imaging, CT and MRI of brain. HOSPITAL COURSE: This is a 62-year-old female, admitted to [facility], who was transferred from [place] with hypertension emergency/urgency. She was complaining of dizziness and tongue numbness on presentation. CT scan of brain revealed hypoattenuation, bilateral basal ganglia and right thalamus. Stroke team was consulted. No tPA was given. MR (more content not included)... Note MR#: [id number] [facility] Pt. Name: Kyle Powell Admitted: 09/05/2018 Discharged: 09/07/2018 Date of : 1955 Physician: Jonah Sanabria MD DISCHARGE SUMMARY PRINCIPAL DIAGNOSES: 1. Coronary artery disease of rosebud artery of rosebud heart with stable angina. 2. Essential hypertension. 3. Status post cardiac cath. 4. Status post coronary artery stent placement. 5. Type 2 diabetes mellitus without complication with long-term use of insulin. 6. Hyperlipidemia. HISTORY OF PRESENT ILLNESS: This is a 62-year-old female, who went for a persantine stress test. When they were injecting the persantine, the patient was found to have ST elevation and they aborted the procedure and decided to transfer here to [facility] for cardiac cath. She had a cardiac cath here. In 01/2017, she had severe ostial stenosis of the posterior descending branch of the right coronary artery and had a balloon angioplasty with a Synergy drug-eluting stent. She has been doing well since (more content not included)... Note MR#: [id number] [facility] Pt. Name: Kyle Powell Admitted: 11/13/2018 Discharged: 11/18/2018 Date of : 1955 Physician: Miguel Dempsey MD DISCHARGE SUMMARY PRINCIPAL DIAGNOSES: 1. Upper GI bleed. 2. Coffee-ground emesis. 3. Multiple gastric ulcers. SECONDARY DIAGNOSES: Acute blood-loss anemia, history of coronary artery disease, status post PCI and past history of stent placement, hypertension, hyperlipidemia, history of cerebrovascular accident without residual damage, type 2 diabetes mellitus, peripheral neuropathy. REASON FOR ADMISSION: The patient is a 63-year-old lady, who has been taking a lot of non-steroidals, has underlying history of coronary artery disease on aspirin and Plavix along with history of hypertension and hyperlipidemia and diabetes type 2, who presented with a chief complaint of multiple episodes of coffee-ground material and melena for about 3 days. She was seen by her primary care and was sent to the ER for evalua (more content not included)... Note MR#: [id number] [facility] Pt. Name: Kyle Powell Surgery Date: 11/15/2018 Room #: 3AB [id number] Date of : 1955 PROCEDURE NOTE ATTENDING: Dov Oscar M.D. PROCEDURE EGD with gastric biopsies. SUSTAINABILITY PURCHASING AGENT: Inocencio Rivera M.D. INDICATION FOR PROCEDURE: A 63-year-old female patient with history of cardiac drug-eluting stent placement for coronary artery disease in 2016, on dual antiplatelet therapy with aspirin and Plavix, and was taking NSAIDs for leg pains of about 1-2 weeks's duration on a daily basis, presented to the hospital for lethargy and symptoms associated with melenic stools and acute drop in hemoglobin. EGD to be done for further evaluation. She had a colonoscopy 1 year ago. PROCEDURE IN DETAIL: Consent was taken from the patient after risks and benefits associated with the procedure including, but not limited to infection, bleeding, perforation, and allergic reaction to the medication given. The patient was connected to [facility] (more content not included)... Procedure Findings Note MR#: [id number] [facility] Pt. Name: Kyle Powell Surgery Date: 11/15/2018 Room #: 3AB [id number] Date of : 1955 PROCEDURE NOTE ATTENDING: Dov Oscar M.D. PROCEDURE EGD with gastric biopsies. SUSTAINABILITY PURCHASING AGENT: Inocencio Rivera M.D. INDICATION FOR PROCEDURE: A 63-year-old female patient with history of cardiac drug-eluting stent placement for coronary artery disease in 2016, on dual antiplatelet therapy with aspirin and Plavix, and was taking NSAIDs for leg pains of about 1-2 weeks's duration on a daily basis, presented to the hospital for lethargy and symptoms associated with melenic stools and acute drop in hemoglobin. EGD to be done for further evaluation. She had a colonoscopy 1 year ago. PROCEDURE IN DETAIL: Consent was taken from the patient after risks and benefits associated with the procedure including, but not limited to infection, bleeding, perforation, and allergic reaction to the medication given. The patient was connected to appropriat (more content not included)... Chief Complaint and Reason for Visit Chief Complaint DCIS Left Breast Left Breast Cancer Left Breast Cancer Left Breast Cancer Reason for Visit [id number] Mastodynia of right breast Coronary artery disease History of stroke Hypertension Chief Complaint Left Breast Cancer Left Breast Cancer Left Breast Cancer DCIS Left Breast Reason for Visit [id number] Mastodynia of right breast Coronary artery disease History of stroke Hypertension Chief Complaint Left Breast Cancer Left Breast Cancer Left Breast Cancer DCIS Left Breast Reason for Visit [id number] Encounter for monitoring aromatase inhibitor therapy Coronary artery disease History of stroke Hypertension Mastodynia of right breast Chief Complaint DCIS Left Breast Reason for Visit [id number] Encounter for monitoring aromatase inhibitor therapy Coronary artery disease History of stroke Hypertension Mastodynia of right breast Additional Source Comments INFORMATION SOURCE (unrecogn ized section and content) DATE CREATED AUTHOR 03/25/2018 [facility] DATE CREATED AUTHOR AUTHOR'S ORGANIZ ATION 12/11/2018 [facility] DATE CREATED AUTHOR AUTHOR'S ORGANIZ ATION 02/14/2023 [facility] DATE CREATED AUTHOR AUTHOR'S ORGANIZ ATION 04/14/2023 [facility] DATE CREATED AUTHOR AUTHOR'S ORGANIZ ATION 11/20/2023 [facility] DATE CREATED AUTHOR AUTHOR'S ORGANIZ ATION 12/19/2023 [facility] DATE CREATED AUTHOR AUTHOR'S ORGANIZ ATION 12/21/2023 [facility] Care Teams (unrecognized sec tion and content) Team Status: Inactive Member Role Status Dates Faraz Osman II MD Primary Care Provider Active Jac Hemphill DO Attending Provider Active Team Status: Active Member Role Status Dates Faraz Osman II MD Primary Care Provider, Referring Provider Active Karoline Farmer MD Attending Provider Active Team Status: Active Member Role Status Dates Faraz Osman II MD Primary Care Provider Active Time Study Statistician Relationship Specialty Start Date End Date Faraz Osman MD [address] [place] [address] PCP - General Internal Medicine 02/20/23 Time Study Statistician Relationship Specialty Start Date End Date Faraz Osman MD [address] [facility] [address] [place] [address] PCP - General Internal Medicine 02/20/23 Time Study Statistician Relationship Specialty Start Date End Date Faraz Osman MD [address] [place] [address] PCP - General Internal Medicine 02/20/23 Time Study Statistician Relationship Specialty Start Date End Date Faraz Osman MD [address] [facility] [address] [place] [address] PCP - General Internal Medicine 02/20/23 Time Study Statistician Relationship Specialty Start Date End Date Faraz Osman MD [address] [facility] [address] [place] [address] PCP - General Internal Medicine 02/20/23 Goals (unrecognized section and content) Goals may be documented in a n alternate section No data available for this sectionNo InformationNo InformationGoals may be documented in an alternate section REASON FOR VISIT (unrecogniz ed section and content) Reason Comments Post-op FOR RECORDS PERTAINING TO PATIENTS WHO ARE OR HAVE BEEN ENROLLED IN A CHEMICAL DEPENDENCY/SUBSTANCEABUSE PROGRAM, SOME INFORMATION MAY BE OMITTED. This clinical summary was aggregated from multiple sources. Caution should be exercised in using it in the provision of clinical care. This summary normalizes information from multiple sources, and as a consequence, information in this document may materially change the coding, format and clinical context of patient data. In addition, data may be omitted in some cases. CLINICAL DECISIONS SHOULD BE BASED ON THE PRIMARY CLINICAL RECORDS. [facility]. provides no warranty or guarantee of the accuracy or completeness of information in this document.
--- NOTE | 2023-12-28 14:33 | ED_ITS ---
HPI HPI - General Adult General Chief complaint: Shortness of Breath/Dyspnea Stated complaint: SOB Time Seen by Provider: 12/28/23 14:27 Source: patient Mode of arrival: walk-in History of Present Illness HPI narrative: 68-year-old Female presents with a chief complaint of chest pain and shortness of breath. Patient states she has had intermittent chest pain throughout the night and this morning. She states she had a history of multiple MIs as well as strokes. Patient states she does hide history of breast cancer in the past. She is not currently taking any medications for that. Patient states the pain is centralized it does not radiate she described it as a sharp pain 10 out of 10. She states she felt winded when she was walking in her home. She was afebrile nontoxic upon arrival here. She states she recently saw her pharmacy technologist and everything looked good. She was not scheduled to return for 1 year. Related Data Home Medications ?Medication ?Instructions ?Recorded ?Confirmed amlodipine 10 mg tablet 10 mg PO QDAY 06/16/23 12/28/23 anastrozole 1 mg tablet 1 mg PO QDAY 06/16/23 12/28/23 aspirin 81 mg capsule 81 mg PO DAILY 06/16/23 12/28/23 atorvastatin 80 mg tablet 80 mg PO QDAY 06/16/23 12/28/23 bupropion HCl 150 mg 24 hr tablet, 150 mg PO QDAY 06/16/23 12/28/23 extended release carvedilol 12.5 mg tablet 12.5 mg PO BID 06/16/23 12/28/23 clopidogrel 75 mg tablet 75 mg PO QDAY 06/16/23 12/28/23 docusate sodium 100 mg capsule 100 mg PO BID 06/16/23 12/28/23 (Col-Rite) isosorbide mononitrate 30 mg 30 mg PO QDAY 06/16/23 12/28/23 tablet,extended release 24 hr lisinopril 40 mg tablet 10 mg PO BID 06/16/23 12/28/23 metformin 500 mg tablet,extended 500 mg PO BID 06/16/23 12/28/23 release 24 hr oxcarbazepine 300 mg tablet 300 mg PO BID 06/16/23 12/28/23 pantoprazole 40 mg tablet,delayed mg PO Q12H 06/16/23 release spironolactone 25 mg tablet 25 mg PO QDAY 06/16/23 12/28/23 pregabalin 150 mg capsule mg 12/28/23 Allergies Allergy/AdvReac Type Severity Reaction Status Date / Time No Known Drug Allergies Allergy Verified 06/16/23 16:39 Opioid HPI Opioid Management Most Recent Opioid Data: Last Pain Scale 10 12/28/23 14:45 Last NOV Pain Assessment 12/28/23 14:45 Review of Systems ROS Narrative All Systems are negative except as noted/marked.All systems reviewed and otherwise negative Exam Narrative Exam Narrative: Nurses note and vital signs reviewed and patient is not hypoxic. General: The patient appears well and in no apparent distress. Patient is resting comfortably on cart. Skin: Warm, dry, no pallor noted. There is no rash noted. Head: Normocephalic, atraumatic Eye: Normal conjunctiva, no drainage, EOMI. PERRL Ears, Nose, Mouth, and Throat: oral mucosa is moist. Nares patent. Mouth without vesicles. Ear canals patent. Tm's without Erythema Cardiovascular: Regular Rate and Rhythm Respiratory: Patient is in no distress, no accessory muscle use, lungs are clear to auscultation, no wheezing, rales or rhonchi Back: non-tender, no CVA tenderness bilaterally to percussion. GI: Normal bowel sounds, no tenderness to palpation, no masses appreciated. No rebound, guarding, or rigidity noted. Musculoskeletal: The patient has no evidence of calf tenderness, no pitting edema, symmetrical pulses noted bilaterally Neurological: A&O x4, normal speech Psychiatric: Cooperative Constitutional Vital Signs, click to edit/add: Last Vital Signs Temp 98 F 12/28/23 14:25 Pulse 61 12/28/23 15:20 Resp 18 12/28/23 14:25 BP 98/44 L 12/28/23 15:15 Pulse Ox 93 L 12/28/23 15:20 O2 Del Method Room Air 12/28/23 14:56 O2 Flow Rate 2 12/28/23 14:56 Course Vital Signs Vital signs: Vital Signs Pulse Rate 73 12/28/23 14:24 Temperature 98 F 12/28/23 14:25 Pulse Rate 61 12/28/23 15:20 Respiratory Rate 18 12/28/23 14:25 Blood Pressure 98/44 L 12/28/23 15:15 Pulse Oximetry 93 L 12/28/23 15:20 Oxygen Delivery Method Room Air 12/28/23 14:56 Oxygen Delivery Flow Rate 2 12/28/23 14:56 Medical Decision Making MDM Narrative Medical decision making narrative: 68-year-old Female presents with a chief complaint of chest pain and shortness of breath. Patient states she has had intermittent chest pain throughout the night and this morning. She states she had a history of multiple MIs as well as strokes. Patient states she does hide history of breast cancer in the past. S he is not currently taking any medications for that. Patient states the pain is centralized it does not radiate she described it as a sharp pain 10 out of 10. She states she felt winded when she was walking in her home. She was afebrile nontoxic upon arrival here. She states she recently saw her pharmacy technologist and everything looked good. She was not scheduled to return for 1 year. 1525 Her pain has improved. Her blood pressure and oxygenation did drop after receiving nitro and 2 mg of morphine. IV fluids are currently being given. Patient states her pain is from a 10 down to a 5. Presenting here with chief complaint of chest pain. Both troponins are negative, no changes in her EKGs from June to today.Symptomatic she has no chest pain at this time. She said she had some left breast pain earlier today as well. states she has this kind of pain often and attributes mostly to anxiety. Patient is going to follow-up with her pharmacy technologist. Pain was not reproducible today. She looks well at this time.Patient and verbalized understanding and agree with plan of care Differential Diagnosis Differential Diagnosis: Musculoskeletal chest pain, atypical chest pain, [place] Medical Records Medical records reviewed: Yes I reviewed the patient's medical records Lab Data Lab results reviewed: Yes I reviewed the patient's lab results Labs: Lab Results 12/28/23 12/28/23 Range/Units 14:30 16:01 WBC 8.3 (4.0-11.0) 10^3/uL RBC 4.63 (4.20-5.40) 10^6/uL Hgb 14.1 (12.0-16.0) g/dL Hct 42.7 (36.0-48.0) % MCV 92.2 (81.0-99.0) fL MCH 30.5 (26.7-34.0) pg MCHC 33.0 (29.9-35.2) g/dL RDW 12.8 (11.0-15.0) % Plt Count 268 (150-450) 10^3/uL MPV 10.3 (9.5-13.5) fL Neut % (Auto) 54.5 (43.0-75.0) % Lymph % (Auto) 33.4 (20.5-60.0) % Wilkin % (Auto) 8.3 (1.7-12.0) % Eos % (Auto) 2.8 (0.9-7.0) % Baso % (Auto) 0.6 (0.2-2.0) % Neut # (Auto) 4.5 (1.4-6.5) 10^3/uL Lymph # (Auto) 2.8 (1.2-3.8) 10^3/uL Wilkin # (Auto) 0.7 (0.3-0.8) 10^3/uL Eos # (Auto) 0.2 (0.0-0.7) 10^3/uL Baso # (Auto) 0.1 (0.0-0.1) 10^3/uL Abs Immat Gran (auto) 0.03 (0.00-0.03) 10^3/uL Imm/Tot Granulo (auto) 0.4 (0.0-0.5) % PT 10.9 (9.0-11.6) sec INR 1.03 Sodium 139 (136-145) mmol/L Potassium 4.5 (3.5-5.1) mmol/L Chloride 101 (98-107) mmol/L Carbon Dioxide 26.7 (21.0-32.0) mmol/L Anion Gap 15.8 BUN 18.0 (7.0-18.0) mg/dL Creatinine 0.86 (0.55-1.02) mg/dL Est GFR ( Amer) >60 (>=60) Est GFR (Non-Af Amer) >60 (>=60) BUN/Creatinine Ratio 20.9 Glucose 153 H (74-106) mg/dL Calcium 9.7 (8.5-10.1) mg/dL Total Bilirubin 0.3 (0.2-1.0) mg/dL AST 15 (15-37) U/L ALT 24 (14-59) U/L Alkaline Phosphatase 93 (46-116) U/L Troponin I High Sens 18.9 17.9 (4.0-51.3) pg/mL NT-Pro-B Natriuret Pep 703.0 (<=900.0) pg/mL Total Protein 7.8 (6.4-8.2) g/dL Albumin 3.6 (3.4-5.0) g/dL Globulin 4.2 g/dL Albumin/Globulin Ratio 0.9 Imaging Data Chest x-ray: Radiologist's impression: ITS Impressions Chest X-Ray 12/28/23 14:34 IMPRESSION: 1. No acute cardiopulmonary process. Stable chest. Electronically authenticated by: BARRON VASQUEZ Date: 12/28/2023 15:01 ECG Data Interpretation: 1425 Sinus rhythm with a rate of 64 bpm, RI interval 188 ms, QRS duration 96 ms, ST depression noted in leads 2, 3, and AVF. EKG is similar to previous EKG and June 2023. 1556 Repeat EKG shows no acute changes heart rate is 58 bpm normal sinus rhythm RI interval 184 ms, QRS duration [address] depression with no change. Discharge Plan Discharge Stand Alone Forms: Portal Instructions Chief Complaint: Shortness of Breath/Dyspnea Clinical Impression: Chronic shortness of breath, Chest pain Patient Disposition: Home, Self-Care Time of Disposition Decision: 16:45 Condition: Good Prescriptions / Home Meds: No Action amlodipine 10 mg tablet 10 mg PO QDAY anastrozole 1 mg tablet 1 mg PO QDAY atorvastatin 80 mg tablet 80 mg PO QDAY bupropion HCl 150 mg tablet extended release 24 hr 150 mg PO QDAY carvedilol 12.5 mg tablet 12.5 mg PO BID clopidogrel 75 mg tablet 75 mg PO QDAY isosorbide mononitrate 30 mg tablet extended release 24 hr 30 mg PO QDAY lisinopril 40 mg tablet 10 mg PO BID metformin 500 mg tablet extended release 24 hr 500 mg PO BID pantoprazole 40 mg tablet,delayed release (DR/EC) PO Q12H spironolactone 25 mg tablet 25 mg PO QDAY aspirin 81 mg capsule 81 mg PO DAILY oxcarbazepine 300 mg tablet 300 mg PO BID docusate sodium [Col-Rite] 100 mg capsule 100 mg PO BID pregabalin 150 mg capsule Print Language: Cameroonian Instructions: Chest Pain (ED), Shortness of Breath (ED) Referrals: KAREN EMANUEL [Primary Care Provider] - 1 week
--- NOTE | 2023-12-28 14:34 | XR_ITS ---
The [address] [address] Patient Name: ORTEGA POWELL MRN: [id number] date: 1955 Sex: F Assigned Patient Location: ER Current Patient Location: ER Accession/Order Number: [id number] Exam Date: 12/28/2023 14:40 Report Date: 12/28/2023 15:01 At the request of: RK SHAW Procedure: XR chest 1V EXAMINATION: XR chest 1V HISTORY: chest pain COMPARISON: XR chest 06/16/2023 FINDINGS: LUNGS: No infiltrate, pneumothorax, or pleural effusion. MEDIASTINUM: No abnormal widening. BOWEL GAS PATTERN: Non-obstructed. FREE AIR: None. CALCIFICATIONS: None significant. BONES: No fracture or visible bone lesion. OTHER: Negative. XR/XR chest 1V IMPRESSION: 1. No acute cardiopulmonary process. Stable chest. Electronically authenticated by: BARRON VASQUEZ Date: 12/28/2023 15:01
--- NOTE | 2023-12-28 14:34 | ECG_ITS ---
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
[2023-12-28] MEDS: NITROGLYCERIN 0.4 MG BOTTLE 0.400000000000000022 MG PO (14:44)
[2023-12-28] MEDS: ONDANSETRON PF 4 MG/2 ML VIAL IV (14:45)
[2023-12-28] MEDS: MORPHINE SULFATE 2 MG/ML SYRINGE IV (14:45)
[2023-12-28] MEDS: ASPIRIN 81 MG TAB.CHEW PO (14:47)
[2023-12-28 14:56] LABS: Alanine Aminotransferase 24 U/L (14-59); Albumin Globulin Ratio 0.9; Albumin Level 3.6 g/dL (3.4-5.0); Alkaline Phosphatase 93 U/L (46-116); Anion Gap 15.8; Aspartate Amino Transferase 15 U/L (15-37); BUN Creatinine Ratio 20.9; Bilirubin Total 0.3 mg/dL (0.2-1.0); Calcium 9.7 mg/dL (8.5-10.1); Carbon Dioxide 26.7 mmol/L (21.0-32.0); Chloride 101 mmol/L (98-107); Estimated GFR (African America >60 (>=60); Estimated GFR (Non-African Ame >60 (>=60); Globulin 4.2 g/dL; Glucose 153 mg/dL (74-106); Potassium 4.5 mmol/L (3.5-5.1); Sodium 139 mmol/L (136-145); Total Protein 7.8 g/dL (6.4-8.2)
--- NOTE | 2023-12-28 14:56 | PC.NURSE ---
pt O2 dropped to 88% on RA. 2L of O2 initiated per NC. pt O2 SAT up to 92%
[2023-12-28 14:58] LABS: Basophils Absolute Auto 0.1 10^3/uL (0.0-0.1); Basophils Percent Auto 0.6 % (0.2-2.0); Eosinophils Absolute Auto 0.2 10^3/uL (0.0-0.7); Eosinophils Percent Auto 2.8 % (0.9-7.0); Hematocrit 42.7 % (36.0-48.0); Hemoglobin 14.1 g/dL (12.0-16.0); Immature Granulocytes Abs Auto 0.03 10^3/uL (0.00-0.03); Immature Granulocytes Pct Auto 0.4 % (0.0-0.5); Lymphocytes Absolute Auto 2.8 10^3/uL (1.2-3.8); Lymphocytes Percent Auto 33.4 % (20.5-60.0); Mean Corpuscular Hemoglobin 30.5 pg (26.7-34.0); Mean Corpuscular Volume 92.2 fL (81.0-99.0); Mean Platelet Volume 10.3 fL (9.5-13.5); Monocytes Absolute Auto 0.7 10^3/uL (0.3-0.8); Monocytes Percent Auto 8.3 % (1.7-12.0); Neutrophils Absolute Auto 4.5 10^3/uL (1.4-6.5); Neutrophils Percent Auto 54.5 % (43.0-75.0); Platelet Count 268 10^3/uL (150-450); Red Blood Count 4.63 10^6/uL (4.20-5.40); Red Cell Distribution Width 12.8 % (11.0-15.0); White Blood Count 8.3 10^3/uL (4.0-11.0)
[2023-12-28 15:00] LABS: INR 1.03; Prothrombin Time 10.9 sec (9.0-11.6)
[2023-12-28 15:03] LABS: Troponin I High Sensitivity 18.9 pg/mL (4.0-51.3)
[2023-12-28] MEDS: 0.9 % SODIUM CHLORIDE 1,000 ML 500 ML IV (15:10)
--- NOTE | 2023-12-28 15:52 | ECG_ITS ---
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
[2023-12-28 16:28] LABS: Troponin I High Sensitivity 17.9 pg/mL (4.0-51.3)
== END 2023-12-28 17:02 | disposition home or self-care (01) ==
PROVIDERS: Physician Assistant; Emergency Provider Emergency Medicine; PCP Internal Medicine
DX: R07.9 Chest pain, unspecified (principal); R06.02 Shortness of breath; I25.2 Old myocardial infarction; Z86.73 Personal history of transient ischemic attack (TIA), and cerebral infarction without residual deficits; Z85.3 Personal history of malignant neoplasm of breast; Z79.82 Long term (current) use of aspirin; Z79.899 Other long term (current) drug therapy; Z79.84 Long term (current) use of oral hypoglycemic drugs
CPT/HCPCS: 36415; 71045; 80053; 83880; 84484; 85025; 85610; 93005; 96374; 96375; 99285

== ENCOUNTER 2024-02-11 16:16 | Observation (INO) | payer MEDICARE, SELFPAY ==
[2024-02-11] VITALS (18 sets, daily range): BP systolic 101–164; BP diastolic 36–77; PULSE 60–78; TEMP 36.5–37.1; O2SAT 93–98; BMI 40.1; BMI 40.2
--- NOTE | 2024-02-11 16:20 | ECG_ITS ---
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
--- NOTE | 2024-02-11 16:20 | XR_ITS ---
The [address] [address] Patient Name: ORTEGA POWELL MRN: [id number] date: 1955 Sex: F Assigned Patient Location: ER Current Patient Location: ER Accession/Order Number: [id number] Exam Date: 02/11/2024 16:35 Report Date: 02/11/2024 17:22 At the request of: DK LI Procedure: XR chest 1V EXAM: XR chest 1V HISTORY: tia COMPARISON: 12/28/2023 TECHNIQUE: Single view of the chest FINDINGS: Heart size normal. No focal consolidation, pleural effusion, pulmonary congestion or pneumothorax. XR/XR chest 1V IMPRESSION: No acute findings. Electronically authenticated by: ETHAN BEAN Date: 02/11/2024 17:22
--- NOTE | 2024-02-11 16:20 | CT_ITS ---
The [address] [address] Patient Name: ORTEGA POWELL MRN: [id number] date: 1955 Sex: F Assigned Patient Location: ER Current Patient Location: Accession/Order Number: [id number] Exam Date: 02/11/2024 16:35 Report Date: 02/11/2024 17:42 At the request of: DK LI Procedure: CT angio neck EXAM: CT angio head, CT angio neck HISTORY: Slurred speech. COMPARISON: Head CT on 02/11/2024. TECHNIQUE: Following IV administration of iodinated contrast, axial CT scans of the head and neck were obtained. MPR and MIP images images were obtained. Carotid stenosis is based on NASCET criteria. Dose reduction techniques were achieved by using automated exposure control and/or adjustment of mA and/or kV according to patient size and/or the use of an iterative reconstruction technique. FINDINGS: CTA OF THE HEAD: No large vessel occlusion. A focal moderate to severe stenosis in the proximal left M2 anterior division, mild to moderate stenosis in the right M2 posterior division proximally and moderate stenosis in the mid right P2. 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 Dural venous sinuses are patent. CTA OF THE NECK: No abnormal soft tissue mass in the neck. The visualized lungs are clear. Osseous structures are intact. The aortic arch shows no aneurysm. The great vessels of the aortic arch show no significant stenosis. Moderate stenosis of the origin of the dominant left vertebral artery. Mild to moderate stenosis in the mid right V1. Common carotids and internal carotids show no significant stenosis or dissection. CT/CT angio neck IMPRESSION: Head CT without contrast on 02/11/2024 shows old lacunar infarcts in the right and left caudate heads, anterior limb of the left internal capsule and right thalamus. No large vessel occlusion intracranially. A focal moderate to severe stenosis in the proximal left M2 anterior division, mild to moderate stenosis in the right M2 posterior division proximally, and moderate stenosis in the mid-right P2, likely due to intracranial atherosclerotic disease. 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 Patent dural venous sinuses. Common carotids and internal carotids show no dissection or significant stenosis. Moderate stenosis of the origin of the dominant left vertebral artery. Mild to moderate stenosis in the mid right V1. Electronically authenticated by: AMANDA MOON Date: 02/11/2024 17:42
--- NOTE | 2024-02-11 16:20 | CT_ITS ---
The [address] [address] Patient Name: ORTEGA POWELL MRN: [id number] date: 1955 Sex: F Assigned Patient Location: ER Current Patient Location: Accession/Order Number: [id number] Exam Date: 02/11/2024 16:35 Report Date: 02/11/2024 17:42 At the request of: DK LI Procedure: CT angio head EXAM: CT angio head, CT angio neck HISTORY: Slurred speech. COMPARISON: Head CT on 02/11/2024. TECHNIQUE: Following IV administration of iodinated contrast, axial CT scans of the head and neck were obtained. MPR and MIP images images were obtained. Carotid stenosis is based on NASCET criteria. Dose reduction techniques were achieved by using automated exposure control and/or adjustment of mA and/or kV according to patient size and/or the use of an iterative reconstruction technique. FINDINGS: CTA OF THE HEAD: No large vessel occlusion. A focal moderate to severe stenosis in the proximal left M2 anterior division, mild to moderate stenosis in the right M2 posterior division proximally and moderate stenosis in the mid right P2. 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 Dural venous sinuses are patent. CTA OF THE NECK: No abnormal soft tissue mass in the neck. The visualized lungs are clear. Osseous structures are intact. The aortic arch shows no aneurysm. The great vessels of the aortic arch show no significant stenosis. Moderate stenosis of the origin of the dominant left vertebral artery. Mild to moderate stenosis in the mid right V1. Common carotids and internal carotids show no significant stenosis or dissection. CT/CT angio head IMPRESSION: Head CT without contrast on 02/11/2024 shows old lacunar infarcts in the right and left caudate heads, anterior limb of the left internal capsule and right thalamus. No large vessel occlusion intracranially. A focal moderate to severe stenosis in the proximal left M2 anterior division, mild to moderate stenosis in the right M2 posterior division proximally, and moderate stenosis in the mid-right P2, likely due to intracranial atherosclerotic disease. 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 Patent dural venous sinuses. Common carotids and internal carotids show no dissection or significant stenosis. Moderate stenosis of the origin of the dominant left vertebral artery. Mild to moderate stenosis in the mid right V1. Electronically authenticated by: AMANDA MOON Date: 02/11/2024 17:42
--- NOTE | 2024-02-11 16:21 | CT_ITS ---
[address] [address] Patient Name: ORTEGA POWELL MRN: [id number] date: 1955 Sex: F Assigned Patient Location: ED.MAIN Current Patient Location: Accession/Order Number: [id number] Exam Date: 02/11/2024 16:35 Report Date: 02/11/2024 17:00 At the request of: DK LI Procedure: CT stroke head/brain wo con EXAM: CT stroke head/brain wo con HISTORY: slurred speech COMPARISON: 01/15/2022 TECHNIQUE: Axial unenhanced CT images were obtained through the brain. Individualized dose optimization technique was used for the performed procedure by employing the following: Automated exposure control, adjustment of the mA and/or kV according to patient's size, and/or the use of the iterative construction technique. Coronal and sagittal reformats were performed. FINDINGS: No acute intracranial abnormality. No acute infarct, hemorrhage or mass. No midline shift. Segal-white matter differentiation is preserved. Ventricles and sulci are normal in size. No acute osseous abnormality. Paranasal sinuses are clear. Mastoid air cells are open. No acute orbital abnormality. Bilateral cataract surgery. CT/CT stroke head/brain wo con IMPRESSION: 1. No acute intracranial abnormality. No acute intracranial infarct visualized by this modality. (MRI is more sensitive). No acute intracranial hemorrhage Electronically authenticated by: SUKHWINDER ATKINS Date: 02/11/2024 17:00
--- NOTE | 2024-02-11 16:28 | ED_ITS ---
HPI HPI - General Adult General Chief complaint: Neuro Symptoms/Deficit Stated complaint: TIA Time Seen by Provider: 02/11/24 16:20 History of Present Illness HPI narrative: Patient is a 68-year-old female who is presenting to the ER today with chief complaint of intermittent slurred speech that started approximately 1:30 PM. Patient had an appointment with Dr. Navarrete in the office today, Dr. Osman saw the patient in person. Patient had some mild slurred speech at that time in the office, Dr. Osman did not think there was anything significant or acute and did not need to send the patient to the ER at that time. Patient stated before the appointment, she was not feeling that well. Patient went home, patient had a lightheaded dizzy episode, almost fell down but caught her. Patient was having intermittent slurred speech this afternoon, lasting up to possibly 30 minutes. EMS was called, patient was brought by EMS [facility]. Patient did not want to go to [facility], they bypassed [facility] at patient request to come to [facility]. Patient only had minimal slurred speech episode in the EMS, only lasting a few minutes but then it resolved. Patient's vital signs were within normal limits, when patient did arrive here, she was slightly hypoxic at 88%. Patient currently is not having any type slurred speech, strokelike signs or symptoms at this time. Patient currently has no headache or neck pain. No chest pain. Patient does have some mild shortness of breath. No abdominal pain, nausea or vomiting. Patient has no significant motor or sensory deficits. Patient looks well at this time, NIH 0. Patient does take Plavix and aspirin. Patient takes multiple blood pressure and heart rate limiting medications. All systems are negative except as noted/marked. All systems reviewed and otherwise negative. Nurses note and vital signs reviewed and patient is not hypoxic. General: The patient appears well and in no apparent distress. Patient is resting comfortably on cart. Patient is not toxic, lethargic, or listless Skin: Warm, dry, no pallor noted. There is no rash noted. No petechiae, purpura. Head: Normocephalic, atraumatic Eye: Normal conjunctiva, no drainage, EOMI. PERRL Ears, Nose, Mouth, and Throat: oral mucosa is moist. Nares patent. Mouth without vesicles. Cardiovascular: Regular Rate and Rhythm, no murmur, gallop, rub Respiratory: Patient is in no distress, no accessory muscle use, lungs are clear to auscultation, no wheezing, rales or rhonchi Back: non-tender, no CVA tenderness bilaterally to percussion. No CT LS midline pain GI: Obese, no tenderness to palpation, no masses appreciated. No rebound, guarding, or rigidity noted. No distention Musculoskeletal: Patient has full range of motion of all of the extremities, no motor, sensory, or focal neurological deficits Neurological: A&O x4, normal speech. NIH 0. No slurred speech, no acute strokelike signs or symptoms at this time. Psychiatric: Cooperative Related Data Home Medications ?Medication ?Instructions ?Recorded ?Confirmed amlodipine 10 mg tablet 10 mg PO QDAY 06/16/23 02/11/24 anastrozole 1 mg tablet 1 mg PO QDAY 06/16/23 02/11/24 aspirin 81 mg capsule 81 mg PO DAILY 06/16/23 02/11/24 atorvastatin 80 mg tablet 80 mg PO QDAY 06/16/23 02/11/24 bupropion HCl 150 mg 24 hr tablet, 150 mg PO QDAY 06/16/23 02/11/24 extended release carvedilol 12.5 mg tablet 12.5 mg PO BID 06/16/23 02/11/24 clopidogrel 75 mg tablet 75 mg PO QDAY 06/16/23 02/11/24 docusate sodium 100 mg capsule 100 mg PO BID 06/16/23 12/28/23 ([facility]) isosorbide mononitrate 30 mg 30 mg PO QDAY 06/16/23 02/11/24 tablet,extended release 24 hr lisinopril 40 mg tablet 10 mg PO BID 06/16/23 02/11/24 metformin 500 mg tablet,extended 500 mg PO BID 06/16/23 02/11/24 release 24 hr oxcarbazepine 300 mg tablet 300 mg PO BID 06/16/23 12/28/23 pantoprazole 40 mg tablet,delayed 40 mg PO Q12H 06/16/23 02/11/24 release spironolactone 25 mg tablet 25 mg PO QDAY 06/16/23 02/11/24 empagliflozin 10 mg tablet 10 mg PO DAILY 02/11/24 02/11/24 (Jardiance) gabapentin 300 mg capsule 300 mg PO BEDTIME 02/11/24 02/11/24 Allergies Allergy/AdvReac Type Severity Reaction Status Date / Time No Known Drug Allergies Allergy Verified 06/16/23 16:39 Opioid HPI Opioid Management Most Recent Opioid Data: Last Pain Scale 10 12/28/23 14:45 PFSH PFS Medical History (Updated 02/11/24 @ 19:36 by Emilie Murguia) Breast cancer ?C50.919 - Malignant neoplasm of unspecified site of unspecified female breast (ICD-10) Diabetes mellitus ?E11.9 - Type 2 diabetes mellitus without complications (ICD-10) Hypertension ?I10 - Essential (primary) hypertension (ICD-10) Brain aneurysm ?I67.1 - Cerebral aneurysm, nonruptured (ICD-10) Congestive heart failure ?I50.9 - Heart failure, unspecified (ICD-10) Myocardial infarction ?I21.9 - Acute myocardial infarction, unspecified (ICD-10) Stroke ?I63.9 - Cerebral infarction, unspecified (ICD-10) Surgical History (Updated 02/11/24 @ 19:36 by Emilie Murguia) H/O heart artery stent ?Z95.5 - Presence of coronary angioplasty implant and graft (ICD-10) Family History (Updated 02/11/24 @ 19:43 by Emilie Murguia) Other Family history of CHF (congestive heart failure) Family history of hypertension Family history of myocardial infarction Family history of stroke Social History Within the past year, how often did you have six or more drinks on one occasion: never Smoking status: Never smoker Non-prescribed substance use: denies use Previous occupational history: Retired Highest level of school completed/degree received: high school graduate Are you now , , , , never or living with a partner: In a typical week, how many times do you talk on the telephone with family, friends, or neighbors: 3 or more times per week How often do you get together with friends or relatives: 3 or more times per week Little interest or pleasure in doing things: not at all Feeling down, depressed, or hopeless: not at all Feel stressed/tense/nervous/anxious/difficulty sleeping: not at all Exam Constitutional Vital Signs, click to edit/add: Last Vital Signs Temp 98.7 F 02/11/24 16:24 Pulse 78 02/11/24 19:20 Resp 16 02/11/24 19:20 BP 125/77 02/11/24 19:20 Pulse Ox 97 02/11/24 19:20 O2 Del Method Room Air 02/11/24 19:20 O2 Flow Rate 2 02/11/24 16:36 Course Vital Signs Vital signs: Vital Signs Temperature 98.7 F 02/11/24 16:24 Pulse Rate 75 02/11/24 16:24 Respiratory Rate 16 02/11/24 16:24 Blood Pressure 109/52 02/11/24 16:24 Pulse Oximetry 98 02/11/24 16:24 Oxygen Delivery Method Room Air 02/11/24 16:24 Temperature 98.7 F 02/11/24 16:24 Pulse Rate 78 02/11/24 19:20 Respiratory Rate 16 02/11/24 19:20 Blood Pressure 125/77 02/11/24 19:20 Pulse Oximetry 97 02/11/24 19:20 Oxygen Delivery Method Room Air 02/11/24 19:20 Oxygen Delivery Flow Rate 2 02/11/24 16:36 Medical Decision Making MDM Narrative Medical decision making narrative: Patient has had several TIAs this afternoon, patient is currently not having any type of TIA or slurred speech like symptoms. Since symptoms started approximately 130 p.m., stat strokelike testing was done. [address] patient came back from CT of the brain, CT of the head neck, patient blood sugar was in the low 50s. Bedside swallow evaluation was done, patient had no difficulty swallowing. Patient was given orange juice and other proxy to help with blood sugar. is able to give more history as well, stating that when patient was in the office, at 105pm is when patient started having some slurred speech. Patient also had mild ataxia despite using a cane, and patient had almost fallen over twice in the office. states that it looked like patient had mild left facial droop in the office as well when they're seen Dr. Navarrete. Patient was unstable at home per , patient almost fell into a counter, patient was able to catch her so she did not fall down. CT of the brain shows no acute findings. CTA of the head and neck show a lot of moderate to severe stenosis at multiple different areas in the brain, along with a 2.9 mm left ophthalmic artery aneurysm. 1812 Dr To the stroke physician from [facility] stated the patient should not be placed on no additional new medications at this time, patient should have a MRI without contrast tomorrow for further evaluation, also additionally medical management for patient's symptoms today. Patient's blood pressure and vital signs were within normal limits. Patient has had no new strokelike findings in the Emergency Room today, she has remained NIH 0. Dr To Can be involved with telemedicine [facility] as well, he states the patient did not need to be transferred to the [facility]. No acute surgical intervention. Patient will be admitted to the intensive care unit, stepdown status to Dr. Polanco. Patient BUN and creatinine are elevated,Patient has been given IV fluids with maintenance IV fluids as well. Patient's BUN/CR are elevated today compared to November of this year as well. Patient will be admitted for MINERVA, transient ischemic attack, mild ataxia, and further evaluation. Critical care time 32 minutes exclusive from separate billable procedures that were performed. The following was considered in the determination of critical care but not limited to the level of medical decision making, intensive cardiac and/or respiratory monitoring, frequent vital sign monitoring, evaluation of laboratory studies, evaluation of radiographic studies, oxygen monitoring, and constant monitoring and speaking to family at bedside Lab Data Labs: Lab Results 02/11/24 02/11/24 02/11/24 Range/Units 16:54 16:56 17:46 WBC 9.8 (4.0-11.0) 10^3/uL RBC 4.11 L (4.20-5.40) 10^6/uL Hgb 12.5 (12.0-16.0) g/dL Hct 39.5 (36.0-48.0) % MCV 96.1 (81.0-99.0) fL MCH 30.4 (26.7-34.0) pg MCHC 31.6 (29.9-35.2) g/dL RDW 13.0 (11.0-15.0) % Plt Count 265 (150-450) 10^3/uL MPV 10.2 (9.5-13.5) fL Neut % (Auto) 51.5 (43.0-75.0) % Lymph % (Auto) 33.7 (20.5-60.0) % [place] % (Auto) 11.3 (1.7-12.0) % Eos % (Auto) 2.5 (0.9-7.0) % Baso % (Auto) 0.6 (0.2-2.0) % Neut # (Auto) 5.1 (1.4-6.5) 10^3/uL Lymph # (Auto) 3.3 (1.2-3.8) 10^3/uL [place] # (Auto) 1.1 H (0.3-0.8) 10^3/uL Eos # (Auto) 0.3 (0.0-0.7) 10^3/uL Baso # (Auto) 0.1 (0.0-0.1) 10^3/uL Abs Immat Gran (auto) 0.04 H (0.00-0.03) 10^3/uL Imm/Tot Granulo (auto) 0.4 (0.0-0.5) % PT 11.3 (9.0-11.6) sec INR 1.07 APTT 26.7 (22.3-36.2) sec Sodium 140 (136-145) mmol/L Potassium 4.2 (3.5-5.1) mmol/L Chloride 104 (98-107) mmol/L Carbon Dioxide 27.7 (21.0-32.0) mmol/L Anion Gap 12.5 BUN 45.0 H (7.0-18.0) mg/dL Creatinine 1.32 H (0.55-1.02) mg/dL Est GFR ( Amer) 48 L (>=60) Est GFR (Non-Af Amer) 40 L (>=60) BUN/Creatinine Ratio 34.1 Glucose 44 L* (74-106) mg/dL Calcium 9.4 (8.5-10.1) mg/dL Total Bilirubin 0.3 (0.2-1.0) mg/dL AST 13 L (15-37) U/L ALT 21 (14-59) U/L Alkaline Phosphatase 71 (46-116) U/L Troponin I High Sens 10.2 (4.0-51.3) pg/mL Total Protein 6.7 (6.4-8.2) g/dL Albumin 3.1 L (3.4-5.0) g/dL Globulin 3.6 g/dL Albumin/Globulin Ratio 0.9 POC Glucose 50 L 71 L (74-106) mg/dL ECG Data Attestation: I personally reviewed and interpreted this ECG as follows: (EKG interpretation. Normal sinus rhythm at 61 beats a minute. Normal axis deviation. No acute ST elevation, no acute ectopy. Nonspecific ST changes throughout, diffuse ST depression, T wave inversion diffusely. QTc of 391. EKG is compared to December 28, 2023, today had similar EKG changes) Discharge Plan Discharge Chief Complaint: Neuro Symptoms/Deficit Clinical Impression: MINERVA (acute kidney injury), Ataxia, TIA (transient ischemic attack), Hypoglycemia Patient Disposition: Admitted as Observation Time of Disposition Decision: 18:10 Condition: Fair Discharge Date/Time: 02/11/24 19:20
[2024-02-11 16:58] LABS: Glucometer 50 mg/dL (74-106)
[2024-02-11 17:02] LABS: Basophils Absolute Auto 0.1 10^3/uL (0.0-0.1); Basophils Percent Auto 0.6 % (0.2-2.0); Eosinophils Absolute Auto 0.3 10^3/uL (0.0-0.7); Eosinophils Percent Auto 2.5 % (0.9-7.0); Hematocrit 39.5 % (36.0-48.0); Hemoglobin 12.5 g/dL (12.0-16.0); Immature Granulocytes Abs Auto 0.04 10^3/uL (0.00-0.03); Immature Granulocytes Pct Auto 0.4 % (0.0-0.5); Lymphocytes Absolute Auto 3.3 10^3/uL (1.2-3.8); Lymphocytes Percent Auto 33.7 % (20.5-60.0); Mean Corpuscular HGB Conc 31.6 g/dL (29.9-35.2); Mean Corpuscular Hemoglobin 30.4 pg (26.7-34.0); Mean Corpuscular Volume 96.1 fL (81.0-99.0); Mean Platelet Volume 10.2 fL (9.5-13.5); Monocytes Absolute Auto 1.1 10^3/uL (0.3-0.8); Monocytes Percent Auto 11.3 % (1.7-12.0); Neutrophils Absolute Auto 5.1 10^3/uL (1.4-6.5); Neutrophils Percent Auto 51.5 % (43.0-75.0); Platelet Count 265 10^3/uL (150-450); Red Blood Count 4.11 10^6/uL (4.20-5.40); White Blood Count 9.8 10^3/uL (4.0-11.0)
[2024-02-11 17:17] LABS: Alanine Aminotransferase 21 U/L (14-59); Albumin Globulin Ratio 0.9; Albumin Level 3.1 g/dL (3.4-5.0); Alkaline Phosphatase 71 U/L (46-116); Anion Gap 12.5; Aspartate Amino Transferase 13 U/L (15-37); BUN Creatinine Ratio 34.1; Bilirubin Total 0.3 mg/dL (0.2-1.0); Calcium 9.4 mg/dL (8.5-10.1); Carbon Dioxide 27.7 mmol/L (21.0-32.0); Chloride 104 mmol/L (98-107); Estimated GFR (African America 48 (>=60); Estimated GFR (Non-African Ame 40 (>=60); Globulin 3.6 g/dL; Potassium 4.2 mmol/L (3.5-5.1); Sodium 140 mmol/L (136-145); Total Protein 6.7 g/dL (6.4-8.2); Troponin I High Sensitivity 10.2 pg/mL (4.0-51.3)
[2024-02-11 17:22] LABS: Glucose 44 mg/dL (74-106)
[2024-02-11 17:24] LABS: INR 1.07; Partial Thromboplastin Time 26.7 sec (22.3-36.2); Prothrombin Time 11.3 sec (9.0-11.6)
[2024-02-11 17:47] LABS: Glucometer 71 mg/dL (74-106)
[2024-02-11] MEDS: 0.9 % SODIUM CHLORIDE 1,000 ML 1000 ML IV (17:51)
[2024-02-11] MEDS: 0.9 % SODIUM CHLORIDE 1,000 ML 125 ML IV (19:15)
--- OUTSIDE RECORDS SUMMARY | 2024-02-11 19:29 | XMS_ITS | CCD ---
Author Organization [facility] Care Team Providers Care Television Technician Name Role Phone CARLOS EDUARDO VAN Unavailable Unavailable JONAH SANABRIA Admitting Unavailable JONAH SANABRIA Attending Unavailable GARRETT MCDONALD Referring Unavailable FARAZ OSMAN Primary Care Unavailable [place] Procedure Practitioner Unavailab JENNIFER Ross Surgeon Unavailable FARAZ OSMAN Primary Care Unavailable FARAZ OSMAN Referring Unavailable CHERELLE, RIVERA R Attending Unavailable CHERELLE, RIVERA R Admitting Unavailable IA Procedure Practitioner Unavailab Dov Blank Surgeon Unavailable WILMAR MORRIS Primary Care Unavailable DOMINICK MCGEE Referring Unavailable THERESA TOMAS Admitting Unavailable CHERELLE, RIVERA R Attending Unavailable IA Procedure Practitioner Unavailab le CHERELLE, RIVERA R Surgeon Unavailable SHAHANA Osman Primary Care Provider [phone] SHAHANA Osman Referring Provider [phone] MD Karolnie Farmer Attending Provider [phone] DO Jac Hemphill Attending Provider [phone] SHAHANA Osman Primary Care Provider [phone] SHAHANA Osman Referring Provider MD Karoline Farmer Attending Provider [phone] SHAHANA Osman Referring Provider MD Karoline Farmer Attending Provider SHAHANA Osman Referring Provider MD Karoline Farmer Attending Provider Dawson, SHAHANA Ruth Referring Provider MD Karoline Farmer Attending Provider Dawson, SHAHANA Ruth Primary Care Provider [phone] Dawson, SHAHANA Ruth Referring Provider [phone] MD Karoline Farmer Attending Provider [phone] FARAZ OSMAN Primary Care Physician Yoana Drew [...] Unavailable Faraz Osman MD Primary Care Provider [phone] GARRETT MCDONALD Attending Unavailable ELTAHAWGARRETT Palma Attending Unavailable FARAZ OSMAN Referring Unavailable FARAZ OSMAN Attending Unavailable FARAZ [...] Unavailable JERSON ANTON Attending Unavailable FARAZ OSMAN Attending Unavailable FARAZ OSMAN Attending Unavailable Allergies Allergy Classification Reported Allergen(s) Allergy Type Date of Onset Reaction(s) Facility (1 source) 25249,00 Drug allergy (disorder) 02-02-2017 [facility] (16 sources) diphenhydrAMINE; Translations: [diphenhydramine ] Drug Allergy 12-20-2021 [facility] Medications Current Medications Medication Drug Class(es) Dates Sig (Normalized) Sig (Original) acetaminophen 300 mg / codeine phosphate 30 mg oral tablet (9 sources) Opioid Agonist Start: 12-20-2021 take 1 tablet by mouth every four to six hours Acetaminophen-Co deine Active 1 TAB PO EVERY 4-6 HOURS 17 02December 20, 2021 11:37am Acetaminophen / HYDROcodone (2 sources) Opioid Agonist HYDROcodone-Acet aminophen Active [id number] 200 actuat albuterol 0.09 mg/actuat metered dose [...] Blood Gluc Sensor (FreeStyle Anuradha 2 Sensor) [facility] (8 sources) Start: 06-29-2023 Continuous Blood Gluc Sensor (FreeStyle Anuradha 2 Sensor) [facility] Indications: Type 2 diabetes mellitus with diabetic [...] hyperglycemia, with long-term current use of insulin ([facility]) Inject 60 Units under the skin Daily [...] in the morning. 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; Translations: [MCC (CURRENT) USE OF ANTITHROMBOTICS/ANTIP LATELETS] Onset: 11-14-2018 Episodic Other aftercare (7 sources) Drug therapy finding; Translations: [Encounter for therapeutic drug level monitoring] 01-13-2022 Episodic Other aftercare (1 source) USP (current) use of oral hypoglycemic drugs; Translations: [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 DESIGNER (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) USE OF ORAL HYPOGLYCEMIC DRUGS] Onset: [...] 3 03-30-2023 Episodic Other aftercare (2 sources) 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 insulin; Translations: [MCC (CURRENT) USE OF INSULIN] Onset: 8 Episodic Other aftercare (2 sources) USP (current) use of aspirin; Translations: [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 DESIGNER (CURRENT) USE OF ASPIRIN] Onset: 8 Episodic Other aftercare (7 sources) Encounter for therapeutic drug level monitoring; Translations: [Encounter for therapeutic drug monitoring] Onset: 2 Episodic Other aftercare (10 sources) Long-term current use of insulin; Translations: [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 insulin] Onset: 8 03-30-2023 Episodic Other aftercare (1 source) Other chromosomal disorders counselor (current) drug therapy; Translations: [OTH 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 DESIGNER CURRENT DRUG THERAPY] Onset: 2 Episodic Other aftercare (1 source) 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 F/U in January. Normal [facility] Office Visiton 11-19-2023 Follow-up visit [id number] Jostin Powell 1955 F Date Provider Department Center 11/19/2023 GARRETT HEREDIA AMBER [facility] No family history on file Level of Service:87791 [place] OFFICE/OUTPATIENT ESTABLISHED MOD MDM 30 MIN Normal [facility] Diabetic Self Management Edu cationon 11-09-2023 Diabetic Self Management Education [id number]#1.00TIFF [facility] Consent for Treatmenton Consent for Treatment [id number]#1.00TIFF [facility] Physician Orderon 10-10-2023 Physician Order [id number]#1.00TIFF [facility] 36on 07-30-2023 36 Informed Mily Normal [facility] Office Visiton 06-20-2023 Follow-up visit [id number] Jostin Powell 1955 F Date Provider Department Center 06/20/2023 GARRETT HEREDIA AMBER [facility] No family history on file Level of Service:62298 [place] OFFICE/OUTPATIENT ESTABLISHED LOW MDM 20-29 MIN Normal [facility] AMYLASEon 02-14-2023 Amylase [Catalytic activity/Vol] 39 U/L Normal 25-115 [facility] Comment on above: Performed By: #### C KAROLINE KAT LIPA ####[facility] [address] [place], [place] [address]BtDr. Manuel Reed CBC AUTO DIFFon 02-14-2023 BASO # 0.0 103/ul Normal 0.0-0.1 [facility] Comment on above: Performed By: #### C BC #### [facility] [id number] Manuel Reed Basophils/100 WBC (Bld) 0.5 % Normal 0.2-2.0 [facility] Comment on above: Performed By: #### C BC #### [facility] [address] [address] [address] Manuel Reed EO # 0.3 103/ul Normal 0.0-0.7 [facility] Comment on above: Performed By: #### C BC #### [facility] [address] [address] [address] Manuel Reed Eosinophils/100 WBC (Bld) 3.8 % Normal 0.9-7.0 [facility] Comment on above: Performed By: #### C BC #### [facility] [address] [address] [address] Manuel Reed Erythrocyte distribution width (RBC) [Ratio] 12.9 % Normal 11.0-15.0 [facility] Comment on above: Performed By: #### C BC #### [facility] [address] [address] [address] Manuel Reed Hematocrit (Bld) [Volume fraction] 43.2 % Normal 36.0-48.0 [facility] Comment on above: Performed By: #### C BC #### [facility] [address] [address] [address] Manuel Reed Hemoglobin (Bld) [Mass/Vol] 14.2 g/dL Normal 12.0-16.0 [facility] Comment on above: Performed By: #### C BC #### [facility] [address] [address] [address] Manuel Reed IG # 0.02 10e3/ul Normal 0.00-0.03 [facility] Comment on above: Performed By: #### C BC #### [facility] [address] [place] [address] Dr. Manuel Reed IG % 0.3 % Normal 0.0-0.5 [facility] Comment on above: Performed By: #### C BC #### [facility] [address] [place] [address] Dr. Manuel Reed LYMPH # 2.9 103/ul Normal 1.2-3.8 [facility] Comment on above: Performed By: #### C BC #### [facility] [address] [place] [address] Dr. Manuel Reed Lymphocytes/100 WBC (Bld) 39.5 % Normal 20.5-60.0 [facility] Comment on above: Performed By: #### C BC #### [facility] [address] [place] [address] Dr. Manuel Reed MANUAL DIFF REQ NO Normal [facility] Comment on above: Performed By: #### C BC #### [facility] [address] [place] [address] Dr. Manuel Reed MCH (RBC) [Entitic mass] 29.5 pg Normal 26.7-34.0 [facility] Comment on above: Performed By: #### C BC #### [facility] [address] [place] [address] Dr. Manuel Reed MCHC (RBC) [Mass/Vol] 32.9 g/dL Normal 29.9-35.2 [facility] Comment on above: Performed By: #### C BC #### [facility] [address] [place] [address] Dr. Manuel Reed MCV (RBC) [Entitic vol] 89.8 fL Normal 81.0-99.0 [facility] Comment on above: Performed By: #### C BC #### [facility] [address] [place] [address] Dr. Manuel Reed MONO # 0.7 103/ul Normal 0.3-0.8 [facility] Comment on above: Performed By: #### C BC #### [facility] [address] [place] [address] Dr. Manuel Reed Monocytes/100 WBC (Bld) 10.1 % Normal 1.7-12.0 [facility] Comment on above: Performed By: #### C BC #### [facility] [address] [place] [address] Dr. Manuel Reed NEUT # 3.4 103/ul Normal 1.4-6.5 [facility] Comment on above: Performed By: #### C BC #### [facility] [address] [place] [address] Dr. Manuel Reed Neutrophils/100 WBC (Bld) 45.8 % Normal 43.0-75.0 [facility] Comment on above: Performed By: #### C BC #### [facility] [address] [place] [address] Dr. Manuel Reed Platelet mean volume (Bld) [Entitic vol] 10.6 fL Normal 9.5-13.5 [facility] Comment on above: Performed By: #### C BC #### [facility] [address] [place] [address] Dr. Manuel Reed PLT 259 103/ul Normal 150-450 [facility] Comment on above: Performed By: #### C BC #### [facility] [address] [place] [address] Dr. Manuel Reed RBC 4.81 106/ul Normal 4.20-5.40 [facility] Comment on above: Performed By: #### C BC #### [facility] [address] [place] [address] Dr. Manuel Reed WBC 7.4 103/ul Normal 4.0-11.0 [facility] Comment on above: Performed By: #### C BC #### [facility] [address] [place] [address] ABD/PELV W CONon 02-15-[address] ABD/PELV W CON EXAMINATION: CT ABD/ [...] appendicitis or diverticulitis. Electronically authenticated by: DIANA GROSSH Date: 2023-02-14 02:48 Normal [facility] ER URINE PROFILEon 3 Bilirubin Ql (U) Negative Normal NEGATIVE [facility] Comment on above: Performed By: #### U MICRO, ERUR #### [facility] [address] [place] [address] Dr. Manuel Reed Clarity (U) CLEAR Normal CLEAR [facility] Comment on above: Performed By: #### U MICRO, ERUR #### [facility] [address] [address] [address] Manuel Reed Color (U) LT. YELLOW Normal YELLOW [facility] Comment on above: Performed By: #### U MICRO, ERUR #### [facility] [address] [address] [address] Manuel Reed ERUAHD A micrscopic examina tion will be performed if indicated. Normal [facility] Comment on above: Performed By: #### U MICRO, ERUR #### [facility] [address] [address] [address] Manuel Reed Glucose Ql (U) 1000 mg/dl Abnormal NEGATIVE The [facility] Comment on above: Performed By: #### U MICRO, ERUR #### [facility] [address] [place] [address] Dr. Manuel Reed Hemoglobin Ql (U) LARGE Abnormal NEGATIVE [facility] Comment on above: Performed By: #### U MICRO, ERUR #### [facility] [address] [address] [address] Manuel Reed Ketones Ql (U) Negative Normal NEGATIVE [facility] Comment on above: Performed By: #### U MICRO, ERUR #### [facility] [address] [place] [address] Dr. Manuel Reed LEUKOCYTES TRACE Abnormal NEGATIVE [facility] Comment on above: Performed By: #### U MICRO, ERUR #### [facility] [address] [address] [address] Manuel Reed Nitrite Ql (U) Negative Normal NEGATIVE [facility] Comment on above: Performed By: #### U MICRO, ERUR #### [facility] [address] [address] [address] Manuel Reed pH (U) 5.5 [pH] Normal 5-9 [facility] Comment on above: Performed By: #### U MICRO, ERUR #### [facility] [address] [address] [address] Manuel Reed SPEC GRAVITY 1.015 Normal 1.005-<=1.0 25 [facility] Comment on above: Performed By: #### U MICRO, ERUR #### [facility] [address] [address] [address] Manuel Reed UA PROTEIN Negative Normal NEGATIVE/ TRACE [facility] Comment on above: Performed By: #### U MICRO, ERUR #### [facility] [address] [address] [address] Manuel Reed UR MICRO IND INDICATED Normal [facility] Comment on above: Performed By: #### U MICRO, ERUR #### [facility] [address] [address] [address] Manuel Reed Urobilinogen Qn (U) 0.2 {Seven'U}/dL Normal 0.2 - 1. 0 [facility] Comment on above: Performed By: #### U MICRO, ERUR #### [facility] [address] [place] [address] Dr. Manuel Reed LACTATE/LACTIC ACIDon 2022 Lactate [Moles/Vol] 2.5 mmol/L Critically high 0.4-2.0 [facility] Comment on above: Performed By: #### L ACT #### [facility] [address] [place] [address] Dr. Manuel Reed LIPASEon 02-14-2023 Lipase [Catalytic activity/Vol] 167.0 U/L Normal 73.0-393.0 [facility] Comment on above: Performed By: #### C KAROLINE KAT LIPA ####[facility] [address] [address]Dr. Manuel Reed PROF 14(COMP METB)on 023 Albumin [Mass/Vol] 3.2 g/dL Critically low 3.4-5.0 [facility] Comment on above: Performed By: #### C KAROLINE KAT, LIPA ####[facility] [address] [address]Dr. Manuel Reed Albumin/Globulin [Mass ratio] 0.8 {ratio} Normal [facility] Comment on above: Performed By: #### C KAROLINE KAT LIPA ####[facility] [address] [address]Dr. Manuel Reed ALP [Catalytic activity/Vol] 113 U/L Normal 46-116 [facility] Comment on above: Performed By: #### C MP, KAROLINE, LIPA ####[facility] [address] [address]Dr. Manuel Reed ALT [Catalytic activity/Vol] 42 U/L Normal 14-59 [facility] Comment on above: Performed By: #### C MP, KAROLINE, LIPA ####[facility] [address] [address]Dr. Manuel Reed Anion gap [Moles/Vol] 16.1 mmol/L Normal [facility] Comment on above: Performed By: #### C MP, KAROLINE, LIPA ####[facility] [address] [address]Dr. Manuel Reed AST [Catalytic activity/Vol] 21 U/L Normal 15-37 [facility] Comment on above: Performed By: #### C MP, KAROLINE, LIPA ####[facility] [address] [address]Dr. Manuel Reed Bilirubin [Mass/Vol] 0.2 mg/dL Normal 0.2-1.0 [facility] Comment on above: Performed By: #### C MP, KAROLINE, LIPA ####[facility] [address] [address]Dr. Manuel Reed Calcium [Mass/Vol] 9.3 mg/dL Normal 8.5-10.1 [facility] Comment on above: Performed By: #### C MP, KAROLINE, LIPA ####[facility] [address] [address]Dr. Manuel Reed Chloride [Moles/Vol] 102 mmol/L Normal 98-107 [facility] Comment on above: Performed By: #### C MP, KAROLINE, LIPA ####[facility] [address] [address]Dr. Manuel Reed CO2 [Moles/Vol] 26.5 mmol/L Normal 21.0-32.0 [facility] Comment on above: Performed By: #### C KAROLINE KAT, LIPA ####[facility] [address] [address]Dr. Manuel Reed Creatinine [Mass/Vol] 1.15 mg/dL Critically high 0.55-1.02 [facility] Comment on above: Performed By: #### C NORTH KAROLINE, LIPA ####[facility] [address] [address]Dr. Manuel Reed EGFR-AF [place]I 57 mL/min/1.73m2 Critically low >=60 [facility] Comment on above: Performed By: #### C NORTH KAROLINE, LIPA ####[facility] [address] [address]Dr. Manuel Reed EGFR-NON AF [place] 47 mL/min/1.73m2 Critically low >=60 [facility] Comment on above: Performed By: #### C NORTH KAROLINE, LIPA ####[facility] [address] [address]Dr. Manuel Reed Globulin (S) [Mass/Vol] 4.2 g/dL Normal [facility] Comment on above: Performed By: #### C NORTH KAROLINE, LIPA ####[facility] [address] [address]Dr. Manuel Reed Glucose [Mass/Vol] 396 mg/dL Critically high 74-106 [facility] Comment on above: Performed By: #### C NORTH KAROLINE, LIPA ####[facility] [address] [address]Dr. Manuel Reed Potassium [Moles/Vol] 4.6 mmol/L Normal 3.5-5.1 [facility] Comment on above: Performed By: #### C MP, KAROLINE, LIPA ####[facility] [address] [address]Dr. Manuel Reed Protein [Mass/Vol] 7.4 g/dL Normal 6.4-8.2 The [facility] Comment on above: Performed By: #### C MP, KAROLINE, LIPA ####[facility] [address] [address]Dr. Manuel Reed Sodium [Moles/Vol] 140 mmol/L Normal 136-145 [facility] Comment on above: Performed By: #### C MP, KAROLINE, LIPA ####[facility] [address] [address]Dr. Manuel Reed Urea nitrogen [Mass/Vol] 21.0 mg/dL Critically high 7.0-18.0 [facility] Comment on above: Performed By: #### C MP, KAROLINE, LIPA ####[facility] [address] [place], [place] [address]Dr. Manuel Reed Urea nitrogen/Creatinine [Mass ratio] 18.3 mg/mg Normal [facility] Comment on above: Performed By: #### C MP, KAROLINE, LIPA ####[facility] [address] [place], [place] [address]Dr. Manuel Reed PROTIMEon 02-14-2023 INR Coag (PPP) [Relative time] 0.97 {INR} Normal [facility] Comment on above: Performed By: #### P TT, PT ####[facility] [address] [place], [place] [address]Dr. Manuel Reed INR GUIDELINES SEE BELOW Normal [facility] Comment on above: Result Comment: AKHIL RED INR: 2.0 - 3.0 CONDITIONS NOT LISTED BELOW 2.5 - 3.5 FOR PROSTHETIC HEART VALVE REPLACEMENT 2.5 - 3.5 RECURRENT THROMBOSIS Performed By: #### P TT, PT ####[facility] [address] [place], [place] [address]Dr. Manuel Reed PT Coag (PPP) [Time] 10.3 s Normal 9.0-11.6 [facility] Comment on above: Performed By: #### P TT, PT ####[facility] [address] [place], [place] [address]Dr. Manuel Reed PTTon 02-14-2023 aPTT Coag (Bld) [Time] 25.7 s Normal 22.3-36.2 [facility] Comment on above: Performed By: #### P TT, PT ####[facility] [address] [address]Dr. Manuel Reed URINE MICROSCOPIC ONLYon BACTERIA TRACE Abnormal NONE SEEN [facility] Comment on above: Performed By: #### U MICRO, ERUR #### [facility] [address] [address] [address] Manuel Reed Bacteria identified Cx Nom (U) NOT INDICATED Normal [facility] Comment on above: Performed By: #### U MICRO, ERUR #### [facility] [address] [address] [address] Manuel Reed CAST NONE SEEN Normal NONE SEEN [facility] Comment on above: Performed By: #### U MICRO, ERUR #### [facility] [address] [place] [address] Dr. Manuel Reed Crystals LM Nom (Urine sed) NONE SEEN Normal NONE SEEN [facility] Comment on above: Performed By: #### U MICRO, ERUR #### [facility] [address] [address] [address] Manuel Reed Epithelial cells LM Ql (Urine sed) RARE Normal NONE SEEN /RARE [facility] Comment on above: Performed By: #### U MICRO, ERUR #### [facility] [address] [place] [address] Dr. Manuel Reed MUCOUS NONE SEEN Normal NONE SEEN [facility] Comment on above: Performed By: #### U MICRO, ERUR #### [facility] [address] [address] [address] Manuel Reed RBC 0-2 Normal 0-2 [facility] Comment on above: Performed By: #### U MICRO, ERUR #### [facility] [address] [address] [address] Manuel Reed WBC 0-2 Abnormal NONE SEEN [facility] Comment on above: Performed By: #### U MICRO, ERUR #### [facility] [address] [address] [address] Manuel Reed MG MAMM DIAGNOSTIC 3D TIFFANY CA Don 01-04-2023 MG MAMM DIAGNOSTIC 3D TIFFANY CAD Patient: KYLE POWELL. Exam Date: 01/04/2023 : 1955 Gender:F Ordering : DR FARAZ OSMAN M.D. Admission #: [id number] Family : Order #: [id number] CLICK HERE TO VIEW EXAM RADIOLOGY REPORT [...] colon cancer at age 60. LOCATION: [facility] BREAST COMPOSITION: Scattered areas fibroglandular density. [...] M.D. on 01/04/2023 at 14:48 Normal [facility] NM STRESS/REST MULTIon 11-06 NM STRESS/REST MULTI Patient: HOLLI POWELL Exam Date: 11/06/2022 : 1955 Gender:F Ordering : DR GARRETT MCDONALD M.D. Admission #: [id number] Family : DR FARAZ OSMAN M.D. Order #: [id number] CLICK HERE TO VIEW EXAM RADIOLOGY REPORT [...] MD on 11/07/2022 at 08:12 Normal [facility] CBC AUTO DIFFon 05-29-2022 BASO # 0.0 103/ul Normal 0.0-0.1 [facility] Comment on above: Performed By: #### C BC ####[facility] [address] [address]DrScott Reed Basophils/100 WBC (Bld) 0.3 % Normal 0.2-2.0 [facility] Comment on above: Performed By: #### C BC ####[facility] [address] [address]DrScott Reed EO # 0.2 103/ul Normal 0.0-0.7 [facility] Comment on above: Performed By: #### C BC ####[facility] [address] [address]DrScott Reed Eosinophils/100 WBC (Bld) 3.1 % Normal 0.9-7.0 [facility] Comment on above: Performed By: #### C BC ####[facility] [address] [place], [place] [address]Dr. Manuel Reed Erythrocyte distribution width (RBC) [Ratio] 13.0 % Normal 11.0-15.0 [facility] Comment on above: Performed By: #### C BC ####[facility] [address] [place], [place] [address]Dr. Manuel Reed Hematocrit (Bld) [Volume fraction] 42.5 % Normal 36.0-48.0 [facility] Comment on above: Performed By: #### C BC ####[facility] Onrbgvfbse[address] [place], [place] [address]Dr. Manuel Reed Hemoglobin (Bld) [Mass/Vol] 13.8 g/dL Normal 12.0-16.0 [facility] Comment on above: Performed By: #### C BC ####[facility] Uenrwevlze[address] [place], [place] [address]Dr. Manuel Derek IG # 0.02 10e3/ul Normal 0.00-0.03 [facility] Comment on above: Performed By: #### C BC ####[facility] Pufhgt[address] [place], [place] [address]Dr. Manuel Reed IG % 0.3 % Normal 0.0-0.5 [facility] Comment on above: Performed By: #### C BC ####[facility] Cgftfdwo[address] [place], [place] [address]Dr. Manuel Reed LYMPH # 2.5 103/ul Normal 1.2-3.8 [facility] Comment on above: Performed By: #### C BC ####[facility] Wxswolthjg[address] [place], [place] [address]Dr. Manuel Reed Lymphocytes/100 WBC (Bld) 38.2 % Normal 20.5-60.0 [facility] Comment on above: Performed By: #### C BC ####[facility] Sqlylg[address] [place], [place] [address]DrScott Reed MANUAL DIFF REQ NO Normal [facility] Comment on above: Performed By: #### C BC ####[facility] [address] [place] [address]Dr. Manuel Reed MCH (RBC) [Entitic mass] 29.9 pg Normal 26.7-34.0 [facility] Comment on above: Performed By: #### C BC ####[facility] [address] [place] [address]Dr. Manuel Reed MCHC (RBC) [Mass/Vol] 32.5 g/dL Normal 29.9-35.2 [facility] Comment on above: Performed By: #### C BC ####[facility] [address] [place], [place] [address]DrScott Reed MCV (RBC) [Entitic vol] 92.0 fL Normal 81.0-99.0 [facility] Comment on above: Performed By: #### C BC ####[facility] D[address] [place], [place] [address]DrScott Reed MONO # 0.6 103/ul Normal 0.3-0.8 [facility] Comment on above: Performed By: #### C BC ####[facility] Y[address]rehije[address] [place], [place] [address]DrScott Reed Monocytes/100 WBC (Bld) 8.9 % Normal 1.7-12.0 [facility] Comment on above: Performed By: #### C BC ####[facility] [address] [place], [place] [address]DrScott Reed NEUT # 3.2 103/ul Normal 1.4-6.5 [facility] Comment on above: Performed By: #### C BC ####[facility] L[address]rrq[address] [place], [place] [address]DrScott Reed Neutrophils/100 WBC (Bld) 49.2 % Normal 43.0-75.0 [facility] Comment on above: Performed By: #### C BC ####[facility] X[address]kyj[address] [place], [place] [address]DrScott Reed Platelet mean volume (Bld) [Entitic vol] 10.8 fL Normal 9.5-13.5 [facility] Comment on above: Performed By: #### C BC ####[facility] [address] [place] [id number] Reed PLT 203 103/ul Normal 150-450 [facility] Comment on above: Performed By: #### C BC ####[facility] [address] [place] [id number] Reed RBC 4.62 106/ul Normal 4.20-5.40 [facility] Comment on above: Performed By: #### C BC ####[facility] [address] [place] [address]DrScott Reed WBC 6.6 103/ul Normal 4.0-11.0 [facility] Comment on above: Performed By: #### C BC ####[facility] [address] [place] [address]Dr. Manuel Reed PROF 14(COMP METB)on 022 Albumin [Mass/Vol] 3.5 g/dL Normal 3.4-5.0 [facility] Comment on above: Performed By: #### C TANNER KATN #### [facility] [address] [place] [address] Dr. Manuel Reed Albumin/Globulin [Mass ratio] 0.8 {ratio} Normal [facility] Comment on above: Performed By: #### C NORTH HSTROPN #### [facility] [address] [place] [address] Dr. Manuel Reed ALP [Catalytic activity/Vol] 81 U/L Normal 46-116 [facility] Comment on above: Performed By: #### C NORTH HSTROPN #### [facility] [address] [place] [address] [address] Manuel Reed ALT [Catalytic activity/Vol] 38 U/L Normal 14-59 [facility] Comment on above: Performed By: #### C NORTH HSTROPN #### [facility] [address] [address] [address] Manuel Reed Anion gap [Moles/Vol] 13.0 mmol/L Normal [facility] Comment on above: Performed By: #### C MP, HSTROPN #### [facility] [address] [place] [address] Dr. Manuel Reed AST [Catalytic activity/Vol] 25 U/L Normal 15-37 [facility] Comment on above: Performed By: #### C MP, HSTROPN #### [facility] [address] [place] [address] Dr. Manuel Reed Bilirubin [Mass/Vol] 0.3 mg/dL Normal 0.2-1.0 [facility] Comment on above: Performed By: #### C MP, HSTROPN #### [facility] [address] [place] [address] Dr. Manuel Reed Calcium [Mass/Vol] 9.6 mg/dL Normal 8.5-10.1 [facility] Comment on above: Performed By: #### C MP, HSTROPN #### [facility] [address] [place] [address] Dr. Manuel Reed Chloride [Moles/Vol] 101 mmol/L Normal 98-107 [facility] Comment on above: Performed By: #### C MP, HSTROPN #### [facility] [address] [place] [address] Dr. Manuel Reed CO2 [Moles/Vol] 27.1 mmol/L Normal 21.0-32.0 [facility] Comment on above: Performed By: #### C MP, HSTROPN #### [facility] [address] [place] [address] Dr. Manuel Reed Creatinine [Mass/Vol] 0.93 mg/dL Normal 0.55-1.02 [facility] Comment on above: Performed By: #### C MP, HSTROPN #### [facility] [address] [place] [address] Dr. Manuel Reed EGFR-AF KUWAITI >60 Normal >=60 [facility] Comment on above: Performed By: #### C MP, HSTROPN #### [facility] [address] [address] [address] Manuel Reed EGFR-NON AF [place]I =60 Normal >=60 [facility] Comment on above: Performed By: #### C MP, HSTROPN #### [facility] [address] [address] [address] Manuel Reed Globulin (S) [Mass/Vol] 4.2 g/dL Normal [facility] Comment on above: Performed By: #### C MP, HSTROPN #### [facility] [address] [address] [address] Manuel Reed Glucose [Mass/Vol] 280 mg/dL Critically high 74-106 [facility] Comment on above: Performed By: #### C MP, HSTROPN #### [facility] [address] [place] [address] Dr. Manuel Reed Potassium [Moles/Vol] 4.1 mmol/L Normal 3.5-5.1 [facility] Comment on above: Performed By: #### C MP, HSTROPN #### [facility] [address] [address] [address] Manuel Reed Protein [Mass/Vol] 7.7 g/dL Normal 6.4-8.2 [facility] Comment on above: Performed By: #### C MP, HSTROPN #### [facility] [address] [address] [address] Manuel Reed Sodium [Moles/Vol] 137 mmol/L Normal 136-145 [facility] Comment on above: Performed By: #### C MP, HSTROPN #### [facility] [address] [address] [address] Manuel Reed Urea nitrogen [Mass/Vol] 21.0 mg/dL Critically high 7.0-18.0 [facility] Comment on above: Performed By: #### C MP, HSTROPN #### [facility] [address] [address] [address] Manuel Reed Urea nitrogen/Creatinine [Mass ratio] 22.6 mg/mg Normal [facility] Comment on above: Performed By: #### C NORTH, HSTROPN #### [facility] [address] [address] [address] Manuel Reed TROPONIN, HIGH SENSITIVITYon 05-29-2022 HSTROP 8.1 pg/mL Normal 4.0-51.3 [facility] Comment on above: Result Comment: CUT- OFF POINTS HAVE BEEN ESTABLISHED BASED ON THE FOURTH UNIVERSAL DEFINITIONS OF MYOCARDIAL INFARCTION. THE UPPER REFERENCE LIMIT (URL) OF TROPONIN, DEFINED THE 99TH PERCENTILE OF cTnI DISTRIBUTION IN A REFERENCE POPULATION, HAS BEEN CONFIRMED THE DECISION THRESHOLD FOR [place] DIAGNOSIS. Performed By: #### C NORTH, HSTROPN #### [facility] [address] [place] [address] Dr. Manuel Reed XR RIBS LT PA [...] DIAMOND CHAN Date: 2022-05-29 18:37 Normal [facility] PROF CHEM 8 (BAS METB)on Anion gap [Moles/Vol] 14.1 mmol/L Normal [facility] Comment on above: Performed By: #### B MP #### [facility] [address] [address] [address] Manuel Reed Calcium [Mass/Vol] 8.9 mg/dL Normal 8.5-10.1 [facility] Comment on above: Performed By: #### B MP #### [facility] [address] [address] [address] Manuel Reed Chloride [Moles/Vol] 100 mmol/L Normal 98-107 [facility] Comment on above: Performed By: #### B MP #### [facility] [address] [address] [address] Manuel Reed CO2 [Moles/Vol] 26.4 mmol/L Normal 21.0-32.0 [facility] Comment on above: Performed By: #### B MP #### [facility] [address] [address] [address] Manuel Reed Creatinine [Mass/Vol] 0.94 mg/dL Normal 0.55-1.02 [facility] Comment on above: Performed By: #### B MP #### [facility] [address] [address] [address] Manuel Reed EGFR-AF KUWAITI >60 Normal >=60 [facility] Comment on above: Performed By: #### B MP #### [facility] [address] [address] [address] Manuel Reed EGFR-NON AF KUWAITI 60 mL/min/1.73m2 Normal >=60 [facility] Comment on above: Performed By: #### B MP #### [facility] [address] [address] [address] Manuel Reed Glucose [Mass/Vol] 336 mg/dL Critically high 74-106 [facility] Comment on above: Performed By: #### B MP #### [facility] [address] [address] [address] Manuel Reed Potassium [Moles/Vol] 4.5 mmol/L Normal 3.5-5.1 [facility] Comment on above: Performed By: #### B MP #### [facility] [address] [address] [address] Manuel Reed Sodium [Moles/Vol] 136 mmol/L Normal 136-145 [facility] Comment on above: Performed By: #### B MP #### [facility] [address] [address] [address] Manuel Reed Urea nitrogen [Mass/Vol] 12.0 mg/dL Normal 7.0-18.0 [facility] Comment on above: Performed By: #### B MP #### [facility] [address] [place], [place] [address] Dr. Manuel Reed Urea nitrogen/Creatinine [Mass ratio] 12.8 mg/mg Normal [facility] Comment on above: Performed By: #### B #### [facility] [address] [place], [place] [address] Dr. Manuel Reed Glucose Glucometer (BldC) [M ass/Vol]Ordered By: Jca Hemphill on 12-20-2021 Glucose [Mass/Vol] 181 mg/dL [facility] Comment on above: Random Glucose Refer ence Range is dependent on time and content of last meal. Glucose of more than 200 mg/dL in a nonstressed, ambulatory subject supports the diagnosis of Diabetes Mellitus. No Panel InformationOrdered By: Jac Hemphill on 12-20-2021 Bedside Glucose Comment Glu2: cleaned meter [facility] COVID-19 Positive/NegativeOr dered By: Jac Hemphill on 12-16-2021 SARS-CoV-2 (COVID-19) N gene DUYEN+probe Ql (Resp) Negative Negative [facility] Comment on above: Testing for SARS-CoV -2 by RT-PCRThis test was developed and its performance characteristics determined by [email or web address] ([employer]) and validated at the [facility]. This test has not been FDA cleared [...] developed and its performance characteristics determined by [employer] ([employer]) and validated at the [facility]. This test has not been FDA cleared [...] 12-06-2021 Basophils (Bld) [#/Vol] 0.0 10*3/uL 0.0-0.2 [facility] Basophils/100 WBC Auto (Bld) Ordered By: Jac Hemphill on 12-06-2021 Basophils/100 WBC (Bld) 0.4 % [facility] Blood hemoglobin measurement (mass/volume)Ordered By: Jac Hemphill on 12-06-2021 Hemoglobin (Bld) [Mass/Vol] 14.9 g/dL 11.8-15.4 [facility] Blood leukocytes automated c ount (number/volume)Ordered By: Jac Hemphill on 12-06-2021 WBC (Bld) [#/Vol] 9.1 10*3/uL 4.5-11.0 [facility] Creatinine and Glomerular fi ltration rate.predicted panel (S/P/Bld)Ordered By: Jac Hemphill on 12-06-2021 Creatinine [Mass/Vol] 0.75 mg/dL 0.44-1.03 [facility] Eosinophils Auto (Bld) [#/Vo l]Ordered By: Jac Hemphill on 12-06-2021 Eosinophils (Bld) [#/Vol] 0.2 10*3/uL 0.0-0.45 [facility] Eosinophils/100 WBC Auto (Bl d)Ordered By: Jac Hemphill on 12-06-2021 Eosinophils/100 WBC (Bld) 1.8 % [facility] Erythrocyte distribution wid th Auto (RBC) [Ratio]Ordered By: Jac Hemphill on 12-06-2021 Erythrocyte distribution width (RBC) [Ratio] 13.7 % 11.9-15.3 [facility] Estimated glomerular filtrat ion rate (GFR) non- AmericanOrdered By: Jac Hemphill on 12-06-2021 GFR/1.73 sq M.predicted among non-blacks MDRD (S/P/Bld) [Vol rate/Area] > 60 mL/Min [facility] Hematocrit Auto (Bld) [Volum e fraction]Ordered By: Jac Hemphill on 12-06-2021 Hematocrit (Bld) [Volume fraction] 44.3 % 34.0-46.4 [facility] - Hematology and Cell countsOrdered By: Jac Hemphill on 12-06-2021 Nucleated RBC/100 WBC (Bld) [Ratio] 0.1 % 0-0.5 [facility] Lymphocytes Auto (Bld) [#/Vo l]Ordered By: Jac Hemphill on 12-06-2021 Lymphocytes (Bld) [#/Vol] 2.8 10*3/uL 1.00-4.8 [facility] Lymphocytes/100 WBC Auto (Bl d)Ordered By: Jac Hemphill on 12-06-2021 Lymphocytes/100 WBC (Bld) 30.8 % [facility] MCH Auto (RBC) [Entitic mass ]Ordered By: Jac Hemphill on 12-06-2021 MCH (RBC) [Entitic mass] 30.0 pg 24.7-34.3 [facility] MCHC Auto (RBC) [Mass/Vol]Or dered By: Jac Hemphill on 12-06-2021 MCHC (RBC) [Mass/Vol] 33.8 g/dL 32.0-35.0 [facility] MCV Auto (RBC) [Entitic vol] Ordered By: Jac Hemphill on 12-06-2021 MCV (RBC) [Entitic vol] 88.9 fL 80-100 [facility] Monocytes Auto (Bld) [#/Vol] Ordered By: Jac Hemphill on 12-06-2021 Monocytes (Bld) [#/Vol] 0.8 10*3/uL 0.0-0.8 [facility] Monocytes/100 WBC Auto (Bld) Ordered By: Jac Hemphill on 12-06-2021 Monocytes/100 WBC (Bld) 8.3 % [facility] Neutrophils Auto (Bld) [#/Vo l]Ordered By: Jac Hemphill on 12-06-2021 Neutrophils (Bld) [#/Vol] 5.4 10*3/uL 1.8-7.7 [facility] Neutrophils/100 WBC Auto (Bl d)Ordered By: Jac Hemphill on 12-06-2021 Neutrophils/100 WBC (Bld) 58.7 % [facility] No Panel InformationOrdered By: Jac Hemphill on 12-06-2021 Estimated GFR () > 60 mL/Min [facility] Comment on above: GFR estimated refere nce range: According to KDOQI guidelines, <60 ml/min/1.73m2 is sufficient to diagnose a patient with chronic kidney disease. Pharmacy Creatinine Clearance (Chem N/A [facility] Platelet mean volume Auto (B ld) [Entitic vol]Ordered By: Jac Hemphill on 12-06-2021 Platelet mean volume (Bld) [Entitic vol] 8.7 fL 6.3-10.7 [facility] Platelets Auto (Bld) [#/Vol] Ordered By: Jac Hemphill on 12-06-2021 Platelets (Bld) [#/Vol] 284 10*3/uL 150-450 [facility] RBC Auto (Bld) [#/Vol]Ordere d By: Jac Hemphill on 12-06-2021 RBC (Bld) [#/Vol] 4.98 10*6/uL 3.60-5.00 [facility] Serum or plasma calcium alis urement (mass/volume)Ordered By: Jac Hemphill on 12-06-2021 Calcium [Mass/Vol] 9.5 mg/dL 8.2-10.2 [facility] Serum or plasma chloride eduardo surement (moles/volume)Ordered By: Jac Hemphill on 12-06-2021 Chloride [Moles/Vol] 96 mmol/L 95-114 [facility] Serum or plasma glucose alis urement (mass/volume)Ordered By: Jac Hemphill on 12-06-2021 Glucose [Mass/Vol] 285 mg/dL 70-100 [facility] Comment on above: ADA recommended refe rence [...] on 12-06-2021 Potassium [Moles/Vol] 4.6 mmol/L 3.5-5.1 [facility] Serum or plasma sodium measu rement (moles/volume)Ordered By: Jac Hemphill on 12-06-2021 Sodium [Moles/Vol] 135 mmol/L 136-146 [facility] Serum or plasma total carbon dioxide measurement (moles/volume)Ordered By: Jac Hemphill on 12-06-2021 CO2 [Moles/Vol] 24.9 mmol/L 22.0-30.0 [facility] Serum or plasma urea nitroge n measurement (mass/volume)Ordered By: Jac Hemphill on 03-08-2022 Urea nitrogen [Mass/Vol] 13 mg/dL 9- [facility] BASIC METABOLIC PANELon 11-01 Calcium mass conc 8.6 mg/dL Normal 8.6-10.3 [facility] Comment on above: Order Comment: No: D o not add to previous draw Performed By: #### 5 [id number] #### [facility] [address] [place] [address], [place] Chloride molar conc 107 mmol/L Normal 98-107 [facility] Comment on above: Order Comment: No: D o not add to previous draw Performed By: #### 5 [id number] #### [facility] [address] [place] [address], [place] CO2 molar conc 26 mmol/L Normal 21-31 [facility] Comment on above: Order Comment: No: D o not add to previous draw Performed By: #### 5 [id number] #### [facility] [address] [place] [address], [place] Creatinine mass conc 0.95 mg/dL Normal 0.60-1.20 [facility] Comment on above: Order Comment: No: D o not add to previous draw Performed By: #### 5 [id number] #### [facility] [address] [place] [address], [place] GFR/1.73 sq M predicted among blacks MDRD vol rate/area (S/P/Bld) mL/min/{1.73_m2} Normal >60 [facility] Comment on above: Order Comment: No: D o not add to previous draw Performed By: #### 5 [id number] #### [facility] [address] [place] [address], [place] GFR/1.73 sq M predicted among non-blacks MDRD vol rate/area (S/P/Bld) 59 ml/min/1.73sq m Abnormal >60 [facility] Comment on above: Order Comment: No: D o not add to previous draw Performed By: #### 5 [id number] #### [facility] [address] [place] [address], [facility] Glucose mass conc 177 mg/dL High 70-100 [facility] Comment on above: Order Comment: No: D o not add to previous draw Performed By: #### 5 [id number] #### [facility] [address] [place] [id number], [facility] Potassium molar conc 3.8 mmol/L Normal 3.5-5.1 [facility] Comment on above: Order Comment: No: D o not add to previous draw Performed By: #### 5 [id number] #### [facility] [address] [place] [address], [facility] Sodium molar conc 139 mmol/L Normal 136-145 [facility] Comment on above: Order Comment: No: D o not add to previous draw Performed By: #### 5 [id number] #### [facility] [address] [place] [address], [facility] Urea nitrogen mass conc 13 mg/dL Normal 7-25 [facility] Comment on above: Order Comment: No: D o not add to previous draw Performed By: #### 5 [id number] #### [facility] [address] [facility] [place] [address], [facility] CBC W/DIFFon 11-18-2018 ABS BASOPHILS 0.0 10*3/uL Normal 0.0-0.2 [facility] Comment on above: Order Comment: No: D o not add to previous draw Performed By: #### 5 [id number] #### [facility] [address] [place] [address], [facility] ABS IMM GRANS 0.1 10*3/uL Normal 0.0-0.2 [facility] Comment on above: Order Comment: No: D o not add to previous draw Performed By: #### 5 [id number] #### [facility] [address] [place] [address], [facility] ABS NEUTROPHILS 3.8 10*3/uL Normal 1.6-7.6 [facility] Comment on above: Order Comment: No: D o not add to previous draw Performed By: #### 5 [id number] #### [facility] [address] [place] [address], [facility] Basophils #/vol (Bld) 0.3 % Normal 0.0-1.0 [facility] Comment on above: Order Comment: No: D o not add to previous draw Performed By: #### 5 [id number] #### [facility] [address] [place] [address], [facility] Eosinophils #/vol (Bld) 0.3 10*3/uL Normal 0.0-0.5 [facility] Comment on above: Order Comment: No: D o not add to previous draw Performed By: #### 5 [id number] #### [facility] [address] [place] [address], [facility] Eosinophils/100 WBC (Bld) 4.0 % Normal 0.0-6.0 [facility] Comment on above: Order Comment: No: D o not add to previous draw Performed By: #### 5 0608 #### [facility] [address] [place] [address], [facility] Erythrocyte distribution width Ratio (RBC) 14.3 % Normal 11.5-15.0 [facility] Comment on above: Order Comment: No: D o not add to previous draw Performed By: #### 5 [id number] #### [facility] [address] [place] [address], [facility] Hematocrit Volume Fraction (Bld) 24.7 % Low 36.0-45.0 [facility] Comment on above: Order Comment: No: D o not add to previous draw Performed By: #### 5 [id number] #### [facility] [address] [place] [id number], [facility] Hemoglobin mass conc (Bld) 7.9 g/dL Low 12.0-15.0 [facility] Comment on above: Order Comment: No: D o not add to previous draw Performed By: #### 5 0608 #### [facility] [address] [facility] [place] [address], [facility] IMMATURE GRANS 0.8 % Normal 0.0-1.0 [facility] Comment on above: Order Comment: No: D o not add to previous draw Performed By: #### 5 0608 #### [facility] [address] Lymphocytes #/vol (Bld) 2.4 10*3/uL Normal 1.2-4.0 [facility] Comment on above: Order Comment: No: D o not add to previous draw Performed By: #### 5 0608 #### [facility] [address] [place] [address], [facility] Lymphocytes/100 WBC (Bld) 33.7 % Normal 20.0-45.0 [facility] Comment on above: Order Comment: No: D o not add to previous draw Performed By: #### 5 [id number] #### [facility] [address] MCH Entitic mass (RBC) 30.5 pg Normal 27.0-33.0 [facility] Comment on above: Order Comment: No: D o not add to previous draw Performed By: #### 5 0608 #### [facility] [address] MCHC mass conc (RBC) 32.0 g/dL Normal 32.0-35.0 [facility] Comment on above: Order Comment: No: D o not add to previous draw Performed By: #### 5 0608 #### [facility] [address] MCV Entitic volume (RBC) 95.4 fL Normal 82.0-98.0 [facility] Comment on above: Order Comment: No: D o not add to previous draw Performed By: #### 5 [id number] #### [facility] [address] [place] [address], [facility] Monocytes #/vol (Bld) 0.6 10*3/uL Normal 0.1-1.0 [facility] Comment on above: Order Comment: No: D o not add to previous draw Performed By: #### 5 [id number] #### [facility] [address] [place] [address], [facility] MONOS 8.7 % Normal 5.0-12.0 [facility] Comment on above: Order Comment: No: D o not add to previous draw Performed By: #### 5 [id number] #### [facility] [address] [place] [address], [facility] Neutrophils/100 WBC (Bld) 52.5 % Normal 40.0-72.0 [facility] Comment on above: Order Comment: No: D o not add to previous draw Performed By: #### 5 0608 #### [facility] [address] [place] [address], [facility] Nucleated RBC/100 WBC Ratio (Bld) 0 % Normal 0-0 [facility] Comment on above: Order Comment: No: D o not add to previous draw Performed By: #### 5 0608 #### [facility] [address] [facility] [place] [address], [facility] PLAT CNT 312 10*3/uL Normal 150-400 [facility] Comment on above: Order Comment: No: D o not add to previous draw Performed By: #### 5 0608 #### [facility] [address] [place] [address], [facility] RBC #/vol (Bld) 2.59 10*6/uL Low 3.80-5.00 [facility] Comment on above: Order Comment: No: D o not add to previous draw Performed By: #### 5 0608 #### [facility] [address] [place] [address], [facility] WBC #/vol (Bld) 7.23 10*3/uL Normal 4.00-10.60 [facility] Comment on above: Order Comment: No: D o not add to previous draw Performed By: #### 5 0608 #### [facility] [address] [place] [address], [facility] POC GLUCOSE LABon 11-18-2018 Glucose mass conc 200 mg/dL High 70-100 [facility] Comment on above: Performed By: #### 5 0608 #### [facility] [address] [place] [address], [facility] Glucose mass conc 172 mg/dL High 70-100 [facility] Comment on above: Performed By: #### 5 0608 #### [facility] [address] [facility] [place] [address], [facility] BASIC METABOLIC PANELon 11-01 Calcium mass conc 8.2 mg/dL Low 8.6-10.3 [facility] Comment on above: Order Comment: No: D o not add to previous draw Performed By: #### 5 0608 #### [facility] [address] [place] [address], [facility] Chloride molar conc 108 mmol/L High 98-107 [facility] Comment on above: Order Comment: No: D o not add to previous draw Performed By: #### 5 0608 #### [facility] [address] [place] [address], [facility] CO2 molar conc 24 mmol/L Normal 21-31 [facility] Comment on above: Order Comment: No: D o not add to previous draw Performed By: #### 5 0608 #### [facility] [address] [place] [address], [facility] Creatinine mass conc 0.93 mg/dL Normal 0.60-1.20 [facility] Comment on above: Order Comment: No: D o not add to previous draw Performed By: #### 5 0608 #### [facility] [address] [place] [address], [place] GFR/1.73 sq M predicted among blacks MDRD vol rate/area (S/P/Bld) mL/min/{1.73_m2} Normal >60 [facility] Comment on above: Order Comment: No: D o not add to previous draw Performed By: #### 5 0608 #### [facility] [address] [place] [address], [place] GFR/1.73 sq M predicted among non-blacks MDRD vol rate/area (S/P/Bld) mL/min/{1.73_m2} Normal >60 [facility] Comment on above: Order Comment: No: D o not add to previous draw Performed By: #### 5 0608 #### [facility] [address] [place] [address], [place] Glucose mass conc 164 mg/dL High 70-100 [facility] Comment on above: Order Comment: No: D o not add to previous draw Performed By: #### 5 0608 #### [facility] [address] [place] [address], [place] Potassium molar conc 4.0 mmol/L Normal 3.5-5.1 [facility] Comment on above: Order Comment: No: D o not add to previous draw Performed By: #### 5 0608 #### [facility] [address] [place] [address], [place] Sodium molar conc 139 mmol/L Normal 136-145 [facility] Comment on above: Order Comment: No: D o not add to previous draw Performed By: #### 5 0608 #### [facility] [address] [place] [address], [place] Urea nitrogen mass conc 11 mg/dL Normal 7-25 [facility] Comment on above: Order Comment: No: D o not add to previous draw Performed By: #### 5 0608 #### [facility] [address] [place] [address], [facility] CBC W/DIFFon 11-17-2018 ABS BASOPHILS 0.0 10*3/uL Normal 0.0-0.2 [facility] Comment on above: Order Comment: No: D o not add to previous draw Performed By: #### 5 0608 #### [facility] [address] [place] [address], [facility] ABS IMM GRANS 0.0 10*3/uL Normal 0.0-0.2 [facility] Comment on above: Order Comment: No: D o not add to previous draw Performed By: #### 5 0608 #### [facility] [address] [facility] [place] [address], [facility] ABS NEUTROPHILS 3.1 10*3/uL Normal 1.6-7.6 [facility] Comment on above: Order Comment: No: D o not add to previous draw Performed By: #### 5 0608 #### [facility] [address] [facility] [place] [address], [facility] Basophils #/vol (Bld) 0.4 % Normal 0.0-1.0 [facility] Comment on above: Order Comment: No: D o not add to previous draw Performed By: #### 5 0608 #### [facility] [address] [place] [address], [facility] Eosinophils #/vol (Bld) 0.2 10*3/uL Normal 0.0-0.5 [facility] Comment on above: Order Comment: No: D o not add to previous draw Performed By: #### 5 0608 #### [facility] [address] [facility] [place] [address], [facility] Eosinophils/100 WBC (Bld) 3.6 % Normal 0.0-6.0 [facility] Comment on above: Order Comment: No: D o not add to previous draw Performed By: #### 5 0608 #### [facility] [address] Erythrocyte distribution width Ratio (RBC) 14.3 % Normal 11.5-15.0 [facility] Comment on above: Order Comment: No: D o not add to previous draw Performed By: #### 5 0608 #### [facility] [address] Hematocrit Volume Fraction (Bld) 24.7 % Low 36.0-45.0 [facility] Comment on above: Order Comment: No: D o not add to previous draw Performed By: #### 5 0608 #### [facility] [address] [facility]. [address] Hemoglobin mass conc (Bld) 7.8 g/dL Low 12.0-15.0 [facility] Comment on above: Order Comment: No: D o not add to previous draw Performed By: #### 5 0608 #### [facility] [address] IMMATURE GRANS 0.4 % Normal 0.0-1.0 [facility] Comment on above: Order Comment: No: D o not add to previous draw Performed By: #### 5 0608 #### [facility] [address] [facility]. [address] Lymphocytes #/vol (Bld) 2.8 10*3/uL Normal 1.2-4.0 [facility] Comment on above: Order Comment: No: D o not add to previous draw Performed By: #### 5 0608 #### [facility] [address] [place] [address], [facility] Lymphocytes/100 WBC (Bld) 41.5 % Normal 20.0-45.0 [facility] Comment on above: Order Comment: No: D o not add to previous draw Performed By: #### 5 0608 #### [facility] [address] [place] [address], [facility] MCH Entitic mass (RBC) 30.6 pg Normal 27.0-33.0 [facility] Comment on above: Order Comment: No: D o not add to previous draw Performed By: #### 5 0608 #### [facility] [address] [place] [address], [facility] MCHC mass conc (RBC) 31.6 g/dL Low 32.0-35.0 [facility] Comment on above: Order Comment: No: D o not add to previous draw Performed By: #### 5 0608 #### [facility] [address] [place] [address], [facility] MCV Entitic volume (RBC) 96.9 fL Normal 82.0-98.0 [facility] Comment on above: Order Comment: No: D o not add to previous draw Performed By: #### 5 0608 #### [facility] [address] [place] [id number], [facility] Monocytes #/vol (Bld) 0.6 10*3/uL Normal 0.1-1.0 [facility] Comment on above: Order Comment: No: D o not add to previous draw Performed By: #### 5 0608 #### [facility] [address] [place] [address], [facility] MONOS 8.2 % Normal 5.0-12.0 [facility] Comment on above: Order Comment: No: D o not add to previous draw Performed By: #### 5 0608 #### [facility] [address] [place] [address], [facility] Neutrophils/100 WBC (Bld) 45.9 % Normal 40.0-72.0 [facility] Comment on above: Order Comment: No: D o not add to previous draw Performed By: #### 5 0608 #### [facility] [address] [place] [id number], [facility] Nucleated RBC/100 WBC Ratio (Bld) 0 % Normal 0-0 [facility] Comment on above: Order Comment: No: D o not add to previous draw Performed By: #### 5 0608 #### [facility] [address] [place] [address], [facility] PLAT CNT 311 10*3/uL Normal 150-400 [facility] Comment on above: Order Comment: No: D o not add to previous draw Performed By: #### 5 0608 #### [facility] [address] [place] [address], [facility] RBC #/vol (Bld) 2.55 10*6/uL Low 3.80-5.00 [facility] Comment on above: Order Comment: No: D o not add to previous draw Performed By: #### 5 0608 #### [facility] [address] [place] [address], [facility] WBC #/vol (Bld) 6.74 10*3/uL Normal 4.00-10.60 [facility] Comment on above: Order Comment: No: D o not add to previous draw Performed By: #### 5 0608 #### [address] CHEST AND LATERALon 11-17-19 19 CHEST AND LATERAL [facility] Department of Radiology [address] [place] [id number] Patient Name: KYLE POWELL : 1955 Sex: F Age: Race: White Pt. Location: [address] [place] [address] Patient Status: I Ordered Date: 11/17/2018 9:55:00 [...] change. Electronically signed by:Nathan Guan. Transcribed by: [email or web address], User Resident: Electronically Signed by: NATHAN GUAN @ 11/18/2018 07:34 AM Normal [facility] Comment on above: Order Comment: No: D o not add to previous draw POC GLUCOSE LABon 11-17-2018 Glucose mass conc 189 mg/dL High 70-100 [facility] Comment on above: Performed By: #### 5 0608 #### [facility] [address] [place] [address], [place] Glucose mass conc 140 mg/dL High 70-100 [facility] Comment on above: Performed By: #### 5 0608 #### [facility] [address] [place] [address], [place] Glucose mass conc 175 mg/dL High 70-100 [facility] Comment on above: Performed By: #### 5 0608 #### [facility] [address] [place] [id number], [facility] Glucose mass conc 183 mg/dL High 70-100 [facility] Comment on above: Performed By: #### 5 0608 #### [facility] [address] [place] [address], [facility] BASIC METABOLIC PANELon - Calcium mass conc 8.2 mg/dL Low 8.6-10.3 [facility] Comment on above: Order Comment: No: D o not add to previous draw Performed By: #### 5 0608 #### [facility] [address] [place] [address], [facility] Chloride molar conc 106 mmol/L Normal 98-107 [facility] Comment on above: Order Comment: No: D o not add to previous draw Performed By: #### 5 0608 #### [facility] [address] [place] [id number], [facility] CO2 molar conc 26 mmol/L Normal 21-31 [facility] Comment on above: Order Comment: No: D o not add to previous draw Performed By: #### 5 0608 #### [facility] [address] [place] [id number], [facility] Creatinine mass conc 1.03 mg/dL Normal 0.60-1.20 [facility] Comment on above: Order Comment: No: D o not add to previous draw Performed By: #### 5 0608 #### [facility] [address] [place] [id number], [facility] GFR/1.73 sq M predicted among blacks MDRD vol rate/area (S/P/Bld) mL/min/{1.73_m2} Normal >60 [facility] Comment on above: Order Comment: No: D o not add to previous draw Performed By: #### 5 0608 #### [facility] [address] [place] [address], [place] GFR/1.73 sq M predicted among non-blacks MDRD vol rate/area (S/P/Bld) 54 ml/min/1.73sq m Abnormal >60 [facility] Comment on above: Order Comment: No: D o not add to previous draw Performed By: #### 5 0608 #### [facility] [address] [place] [address], [place] Glucose mass conc 161 mg/dL High 70-100 [facility] Comment on above: Order Comment: No: D o not add to previous draw Performed By: #### 5 0608 #### [facility] [address] [place] [address], [facility] Potassium molar conc 4.4 mmol/L Normal 3.5-5.1 [facility] Comment on above: Order Comment: No: D o not add to previous draw Performed By: #### 5 0608 #### [facility] [address] [place] [address], [place] Sodium molar conc 137 mmol/L Normal 136-145 [facility] Comment on above: Order Comment: No: D o not add to previous draw Performed By: #### 5 0608 #### [facility] [address] [place] [address], [facility] Urea nitrogen mass conc 11 mg/dL Normal 7-25 [facility] Comment on above: Order Comment: No: D o not add to previous draw Performed By: #### 5 0608 #### [facility] [address] [place] [address], [facility] Calcium mass conc 8.3 mg/dL Low 8.6-10.3 [facility] Comment on above: Order Comment: No: D o not add to previous draw Performed By: #### 5 0608 #### [facility] [address] [place] [address], [place] Chloride molar conc 108 mmol/L High 98-107 [facility] Comment on above: Order Comment: No: D o not add to previous draw Performed By: #### 5 0608 #### [facility] [address] [place] [address], [place] CO2 molar conc 25 mmol/L Normal 21-31 [facility] Comment on above: Order Comment: No: D o not add to previous draw Performed By: #### 5 0608 #### [facility] [address] [place] [address], [place] Creatinine mass conc 0.97 mg/dL Normal 0.60-1.20 [facility] Comment on above: Order Comment: No: D o not add to previous draw Performed By: #### 5 0608 #### [facility] [address] [place] [address], [place] GFR/1.73 sq M predicted among non-blacks MDRD vol rate/area (S/P/Bld) 58 ml/min/1.73sq m Abnormal >60 [facility] Comment on above: Order Comment: No: D o not add to previous draw Performed By: #### 5 0608 #### [facility] [address] [place] [address], [place] Glucose mass conc 116 mg/dL High 70-100 [facility] Comment on above: Order Comment: No: D o not add to previous draw Performed By: #### 5 0608 #### [facility] [address] [place] [address], [place] Potassium molar conc 4.0 mmol/L Normal 3.5-5.1 [facility] Comment on above: Order Comment: No: D o not add to previous draw Performed By: #### 5 0608 #### [facility] [address] [place] [address], [place] Sodium molar conc 140 mmol/L Normal 136-145 [facility] Comment on above: Order Comment: No: D o not add to previous draw Performed By: #### 5 0608 #### [facility] [address] [place] [address], [place] Urea nitrogen mass conc 9 mg/dL Normal 7-25 [facility] Comment on above: Order Comment: No: D o not add to previous draw Performed By: #### 5 0608 #### [facility] [address] [place] [address], [facility] CBC COMPLETE BLOOD COUNTon 0 - Erythrocyte distribution width Ratio (RBC) 14.4 % Normal 11.5-15.0 [facility] Comment on above: Order Comment: No: D o not add to previous draw Performed By: #### 5 0608 #### [facility] [address] Hematocrit Volume Fraction (Bld) 24.9 % Low 36.0-45.0 [facility] Comment on above: Order Comment: No: D o not add to previous draw Performed By: #### 5 0608 #### [facility] [address] [place] [address], [facility] Hemoglobin mass conc (Bld) 7.8 g/dL Low 12.0-15.0 [facility] Comment on above: Order Comment: No: D o not add to previous draw Performed By: #### 5 0608 #### [facility] [address] [place] [address], [facility] MCH Entitic mass (RBC) 30.8 pg Normal 27.0-33.0 [facility] Comment on above: Order Comment: No: D o not add to previous draw Performed By: #### 5 0608 #### [facility] [address] [place] [address], [facility] MCHC mass conc (RBC) 31.3 g/dL Low 32.0-35.0 [facility] Comment on above: Order Comment: No: D o not add to previous draw Performed By: #### 5 0608 #### [facility] [address] [place] [id number], [facility] MCV Entitic volume (RBC) 98.4 fL High 82.0-98.0 [facility] Comment on above: Order Comment: No: D o not add to previous draw Performed By: #### 5 0608 #### [facility] [address] [facility] [place] [address], [facility] Nucleated RBC/100 WBC Ratio (Bld) 0 % Normal 0-0 [facility] Comment on above: Order Comment: No: D o not add to previous draw Performed By: #### 5 0608 #### [facility] [address] [facility] [place] [address], [facility] PLAT CNT 302 10*3/uL Normal 150-400 [facility] Comment on above: Order Comment: No: D o not add to previous draw Performed By: #### 5 0608 #### [facility] [address] [place] [address], [facility] RBC #/vol (Bld) 2.53 10*6/uL Low 3.80-5.00 [facility] Comment on above: Order Comment: No: D o not add to previous draw Performed By: #### 5 0608 #### [facility] [address] [facility] [place] [address], [facility] WBC #/vol (Bld) 7.31 10*3/uL Normal 4.00-10.60 [facility] Comment on above: Order Comment: No: D o not add to previous draw Performed By: #### 5 0608 #### [facility] [address] [facility] [place] [address], [facility] Erythrocyte distribution width Ratio (RBC) 14.6 % Normal 11.5-15.0 [facility] Comment on above: Order Comment: No: D o not add to previous draw Performed By: #### 5 0608 #### [facility] [address] [place] [address], [facility] Hemoglobin mass conc (Bld) 7.6 g/dL Low 12.0-15.0 [facility] Comment on above: Order Comment: No: D o not add to previous draw Performed By: #### 5 0608 #### [facility] [address] MCH Entitic mass (RBC) 30.2 pg Normal 27.0-33.0 [facility] Comment on above: Order Comment: No: D o not add to previous draw Performed By: #### 5 0608 #### [facility] [address] MCHC mass conc (RBC) 30.5 g/dL Low 32.0-35.0 [facility] Comment on above: Order Comment: No: D o not add to previous draw Performed By: #### 5 0608 #### [facility] [address] MCV Entitic volume (RBC) 98.8 fL High 82.0-98.0 [facility] Comment on above: Order Comment: No: D o not add to previous draw Performed By: #### 5 0608 #### [facility] [address] [facility]. [address] PLAT CNT 317 10*3/uL Normal 150-400 [facility] Comment on above: Order Comment: No: D o not add to previous draw Performed By: #### 5 0608 #### [facility] [address] [facility]. [address] RBC #/vol (Bld) 2.52 10*6/uL Low 3.80-5.00 [facility] Comment on above: Order Comment: No: D o not add to previous draw Performed By: #### 5 0608 #### [facility] [address] [facility]. [address] WBC #/vol (Bld) 7.29 10*3/uL Normal 4.00-10.60 [facility] Comment on above: Order Comment: No: D o not add to previous draw Performed By: #### 5 0608 #### [facility] [address] [place] [address], [facility] HEMATOCRITon 11-16-2018 Hematocrit Volume Fraction (Bld) 25.4 % Low 36.0-45.0 [facility] Comment on above: Order Comment: No: D o not add to previous draw Performed By: #### 5 0608 #### [facility] [address] [place] [address], [place] HEMOGLOBINon 11-16-2018 Hemoglobin mass conc (Bld) 7.9 g/dL Low 12.0-15.0 [facility] Comment on above: Order Comment: No: D o not add to previous draw Performed By: #### 5 0608 #### [facility] [address] [place] [address], [facility] POC GLUCOSE LABon 11-16-2018 Glucose mass conc 177 mg/dL High 70-100 [facility] Comment on above: Performed By: #### 5 0608 #### [facility] [address] [place] [address], [place] Glucose mass conc 155 mg/dL High 70-100 [facility] Comment on above: Performed By: #### 5 0608 #### [facility] [address] [place] [address], [place] Glucose mass conc 170 mg/dL High 70-100 [facility] Comment on above: Performed By: #### 5 0608 #### [facility] [address] [place] [address], [place] Glucose mass conc 140 mg/dL High 70-100 [facility] Comment on above: Performed By: #### 5 0608 #### [facility] [address] [place] [address], [place] BASIC METABOLIC PANELon 11-01 Calcium mass conc 8.4 mg/dL Low 8.6-10.3 [facility] Comment on above: Order Comment: Unkno wn Performed By: #### 8 5499 #### [facility] [address] [place] [address], [place] Chloride molar conc 110 mmol/L High 98-107 [facility] Comment on above: Order Comment: Unkno wn Performed By: #### 8 5499 #### [facility] [address] [place] [address], [place] CO2 molar conc 22 mmol/L Normal 21-31 [facility] Comment on above: Order Comment: Unkno wn Performed By: #### 8 5499 #### [facility] [address] [place] [address], [place] Creatinine mass conc 1.02 mg/dL Normal 0.60-1.20 The [facility] Comment on above: Order Comment: Unkno wn Performed By: #### 8 5499 #### [facility] [address] [place] [address], [place] GFR/1.73 sq M predicted among blacks MDRD vol rate/area (S/P/Bld) mL/min/{1.73_m2} Normal >60 [facility] Comment on above: Order Comment: Unkno wn Performed By: #### 8 5499 #### [facility] [address] [place] [address], [place] GFR/1.73 sq M predicted among non-blacks MDRD vol rate/area (S/P/Bld) 55 ml/min/1.73sq m Abnormal >60 [facility] Comment on above: Order Comment: Unkno wn Performed By: #### 8 5499 #### [facility] [address] [place] [address], [place] Glucose mass conc 126 mg/dL High 70-100 [facility] Comment on above: Order Comment: Unkno wn Performed By: #### 8 5499 #### [facility] [address] [place] [address], [place] Potassium molar conc 3.9 mmol/L Normal 3.5-5.1 [facility] Comment on above: Order Comment: Unkno wn Performed By: #### 8 5499 #### [facility] [address] Sodium molar conc 141 mmol/L Normal 136-145 [facility] Comment on above: Order Comment: Unkno wn Performed By: #### 8 5499 #### [facility] [address] Urea nitrogen mass conc 13 mg/dL Normal 7-25 [facility] Comment on above: Order Comment: Unkno wn Performed By: #### 8 5499 #### [facility] [address] CBC W/DIFFon 11-15-2018 ABS BASOPHILS 0.0 10*3/uL Normal 0.0-0.2 [facility] Comment on above: Order Comment: Unkno wn Performed By: #### 8 5499 #### [facility] [address] ABS IMM GRANS 0.1 10*3/uL Normal 0.0-0.2 [facility] Comment on above: Order Comment: Unkno wn Performed By: #### 8 5499 #### [facility] [address] ABS NEUTROPHILS 3.4 10*3/uL Normal 1.6-7.6 [facility] Comment on above: Order Comment: Unkno wn Performed By: #### 8 5499 #### [facility] 3000 [facility]. [address] Basophils #/vol (Bld) 0.4 % Normal 0.0-1.0 [facility] Comment on above: Order Comment: Unkno wn Performed By: #### 8 5499 #### [facility] 3000 [place] [address], [place] Eosinophils #/vol (Bld) 0.2 10*3/uL Normal 0.0-0.5 [facility] Comment on above: Order Comment: Unkno wn Performed By: #### 8 5499 #### [facility] [address] [address], [facility] Eosinophils/100 WBC (Bld) 3.4 % Normal 0.0-6.0 [facility] Comment on above: Order Comment: Unkno wn Performed By: #### 8 5499 #### [facility] [address] [facility] Erythrocyte distribution width Ratio (RBC) 14.6 % Normal 11.5-15.0 [facility] Comment on above: Order Comment: Unkno wn Performed By: #### 8 5499 #### [facility] [address] [facility] Hematocrit Volume Fraction (Bld) 27.5 % Low 36.0-45.0 [facility] Comment on above: Order Comment: Unkno wn Performed By: #### 8 5499 #### [facility] [address] Hemoglobin mass conc (Bld) 8.5 g/dL Low 12.0-15.0 [facility] Comment on above: Order Comment: Unkno wn Performed By: #### 8 5499 #### [facility] [address] [address], [facility] IMMATURE GRANS 0.8 % Normal 0.0-1.0 [facility] Comment on above: Order Comment: Unkno wn Performed By: #### 8 5499 #### [facility] [address] [address], [facility] Lymphocytes #/vol (Bld) 2.8 10*3/uL Normal 1.2-4.0 [facility] Comment on above: Order Comment: Unkno wn Performed By: #### 8 5499 #### [facility] [address] [place] [address], [facility] Lymphocytes/100 WBC (Bld) 39.6 % Normal 20.0-45.0 [facility] Comment on above: Order Comment: Unkno wn Performed By: #### 8 5499 #### [facility] [address] [place] [id number], [facility] MCH Entitic mass (RBC) 30.8 pg Normal 27.0-33.0 [facility] Comment on above: Order Comment: Unkno wn Performed By: #### 8 5499 #### [facility] [address] [place] [address], [facility] MCHC mass conc (RBC) 30.9 g/dL Low 32.0-35.0 [facility] Comment on above: Order Comment: Unkno wn Performed By: #### 8 5499 #### [facility] [address] [place] [address], [facility] MCV Entitic volume (RBC) 99.6 fL High 82.0-98.0 [facility] Comment on above: Order Comment: Unkno wn Performed By: #### 8 5499 #### [facility] [address] [place] [address], [facility] Monocytes #/vol (Bld) 0.5 10*3/uL Normal 0.1-1.0 [facility] e [facility] Comment on above: Order Comment: Unkno wn Performed By: #### 8 5499 #### [facility] [address] [place] [id number], [facility] MONOS 7.6 % Normal 5.0-12.0 [facility] Comment on above: Order Comment: Unkno wn Performed By: #### 8 5499 #### [facility] [address] [place] [address], [facility] Neutrophils/100 WBC (Bld) 48.2 % Normal 40.0-72.0 [facility] Comment on above: Order Comment: Unkno wn Performed By: #### 8 5499 #### [facility] [address] Nucleated RBC/100 WBC Ratio (Bld) 0 % Normal 0-0 [facility] Comment on above: Order Comment: Unkno wn Performed By: #### 8 5499 #### [facility] 3000 [facility]. [address] PLAT CNT 329 10*3/uL Normal 150-400 [facility] Comment on above: Order Comment: Unkno wn Performed By: #### 8 5499 #### [facility] [address] RBC #/vol (Bld) 2.76 10*6/uL Low 3.80-5.00 [facility] Comment on above: Order Comment: Unkno wn Performed By: #### 8 5499 #### [facility] [address] WBC #/vol (Bld) 7.09 10*3/uL Normal 4.00-10.60 [facility] Comment on above: Order Comment: Unkno wn Performed By: #### 8 5499 #### [facility] [address] HEMOGLOBINon 11-15-2018 Hemoglobin mass conc (Bld) 8.5 g/dL Low 12.0-15.0 [facility] Comment on above: Order Comment: No: D o not add to previous draw Performed By: #### 8 5499 #### [facility] [address] MAGNESIUM BLOODon 11-15-2018 Magnesium mass conc 2.0 mg/dL Normal 1.9-2.7 [facility] Comment on above: Order Comment: Unkno wn Performed By: #### 8 5499 #### [facility] [address] [place] [address], [facility] POC GLUCOSE LABon 11-15-2018 Glucose mass conc 168 mg/dL High 70-100 [facility] Comment on above: Performed By: #### 5 0608 #### [facility] [address] [place] [address], [facility] Glucose mass conc 117 mg/dL High 70-100 [facility] Comment on above: Performed By: #### 5 0608 #### [facility] [address] [place] [address], [facility] Glucose mass conc 151 mg/dL High 70-100 [facility] Comment on above: Performed By: #### 8 5499 #### [facility] [address] [place] [address], [facility] Glucose mass conc 143 mg/dL High 70-100 [facility] Comment on above: Performed By: #### 8 5499 #### [facility] [address] [place] [address], [facility] PROTHROMBIN TIMEon 9 INR Coag RelTime (PPP) 1.18 {INR} High 0.91-1.16 [facility] Comment on above: Order Comment: Unkno wn [...] 1995;108:231S-246S. Performed By: #### 8 5499 #### [facility] [address] [place] [address], [facility] Prothrombin time (PT) Coag time (PPP) 15.0 s High 12.3-14.8 [facility] Comment on above: Order Comment: Unkno wn Result Comment: ALL RESULTS MUST BE INTERPRETED WITH RESPECT TO BLOOD DRAWING ARTIFACT OR DILUTION ERROR OF ANTICOAGULANT AT THE TIME OF SAMPLING. Performed By: #### 8 5499 #### [facility] [address] [place] [address], [facility] BASIC METABOLIC PANELon 11-01 Calcium mass conc 8.5 mg/dL Low 8.6-10.3 [facility] Comment on above: Performed By: #### 7 0066 #### [facility] [address] [place] [address], [facility] Chloride molar conc 108 mmol/L High 98-107 [facility] Comment on above: Performed By: #### 7 0066 #### [facility] [address] [place] [address], [facility] CO2 molar conc 23 mmol/L Normal 21-31 [facility] Comment on above: Performed By: #### 7 0066 #### [facility] [address] [place] [address], [facility] Creatinine mass conc 0.84 mg/dL Normal 0.60-1.20 [facility] Comment on above: Performed By: #### 7 0066 #### [facility] [address] [place] [address], [facility] GFR/1.73 sq M predicted among blacks MDRD vol rate/area (S/P/Bld) mL/min/{1.73_m2} Normal >60 [facility] Comment on above: Performed By: #### 7 0066 #### [facility] [address] [place] [address], [facility] GFR/1.73 sq M predicted among non-blacks MDRD vol rate/area (S/P/Bld) mL/min/{1.73_m2} Normal >60 [facility] Comment on above: Performed By: #### 7 0066 #### [facility] [address] [place] [address], [facility] Glucose mass conc 168 mg/dL High 70-100 [facility] Comment on above: Performed By: #### 7 0066 #### [facility] 3000 [facility] [place] [address], [facility] Potassium molar conc 3.8 mmol/L Normal 3.5-5.1 [facility] Comment on above: Performed By: #### 7 0066 #### [facility] [address] [place] [address], [facility] Sodium molar conc 140 mmol/L Normal 136-145 [facility] Comment on above: Performed By: #### 7 0066 #### [facility] [address] [facility] [place] [address], [facility] Urea nitrogen mass conc 15 mg/dL Normal 7-25 [facility] Comment on above: Performed By: #### 7 0066 #### [facility] 3000 [facility]. [address] CBC COMPLETE BLOOD COUNTon 0 - Erythrocyte distribution width Ratio (RBC) 14.0 % Normal 11.5-15.0 [facility] Comment on above: Order Comment: No: D o not add to previous draw Performed By: #### 4 1000, 72398, 76689, 11713 #### [facility] [address] Hematocrit Volume Fraction (Bld) 26.1 % Low 36.0-45.0 [facility] Comment on above: Order Comment: No: D o not add to previous draw Performed By: #### 4 1000, 30229, 69765, 18569 #### [facility] [address] [place] [address], [facility] Hemoglobin mass conc (Bld) 8.4 g/dL Low 12.0-15.0 [facility] Comment on above: Order Comment: No: D o not add to previous draw Performed By: #### 4 1000, 18372, 33333, 66946 #### [facility] [address] [place] [id number], [facility] MCH Entitic mass (RBC) 31.1 pg Normal 27.0-33.0 [facility] Comment on above: Order Comment: No: D o not add to previous draw Performed By: #### 4 1000, 05797, 30690, 63662 #### [facility] [address] [place] [id number], [facility] MCHC mass conc (RBC) 32.2 g/dL Normal 32.0-35.0 [facility] Comment on above: Order Comment: No: D o not add to previous draw Performed By: #### 4 1000, 20562, 97099, 25984 #### [facility] [address] [place] [address], [facility] MCV Entitic volume (RBC) 96.7 fL Normal 82.0-98.0 [facility] Comment on above: Order Comment: No: D o not add to previous draw Performed By: #### 4 1000, 47598, 73986, 85281 #### [facility] [address] [place] [id number], [facility] Nucleated RBC/100 WBC Ratio (Bld) 0 % Normal 0-0 [facility] Comment on above: Order Comment: No: D o not add to previous draw Performed By: #### 4 1000, 41925, 53485, 97558 #### [facility] [address] PLAT CNT 310 10*3/uL Normal 150-400 [facility] Comment on above: Order Comment: No: D o not add to previous draw Performed By: #### 4 1000, 82813, 50142, 97688 #### [facility] 3000 [facility]. [address] RBC #/vol (Bld) 2.70 10*6/uL Low 3.80-5.00 [facility] Comment on above: Order Comment: No: D o not add to previous draw Performed By: #### 4 1000, 18775, 79846, 83542 #### [facility] 3000 [facility]. [address] WBC #/vol (Bld) 6.38 10*3/uL Normal 4.00-10.60 [facility] Comment on above: Order Comment: No: D o not add to previous draw Performed By: #### 4 1000, 50634, 15449, 73189 #### [facility] [address] BRAIN WO CONTRASTon 11-14 CT BRAIN WO CONTRAST [facility] Department of Radiology [address] [place] [id number] Patient Name: KYLE POWELL : 1955 Sex: F Age: Race: White Pt. Location: [id number] Patient Status: O Ordered Date: 11/14/2018 3:45:00 [...] findings. Electronically signed by:Cornelius Bennett. Transcribed by: [email or web address], User Resident: CHRISSY SANDOVAL Electronically Signed by: CORNELIUS BENNETT @ 11/15/2018 04:27 PM I personally read this/these film(s) with this resident Normal [facility] Comment on above: Order Comment: No: D o not add to previous draw FOLATE SERUMon 11-14-2018 Folate mass conc 25.00 ng/mL Normal 6.60-1000.0 0 [facility] Comment on above: Order Comment: No: D o not add to previous draw Result Comment: Norm al range reflects World Health Organization International Standard Performed By: #### 7 0066 #### [facility] [address] [place] [address], [facility] HAPTOGLOBINon 11-14-2018 HAPTOGLOBIN 7 mg/dL Low 26-164 [facility] Comment on above: Order Comment: No: D o not add to previous draw Performed By: #### 7 0066 #### [facility] [address] [place] [address], [facility] HEMOGLOBINon 11-14-2018 Hemoglobin mass conc (Bld) 8.1 g/dL Low 12.0-15.0 [facility] Comment on above: Order Comment: No: D o not add to previous draw Performed By: #### 7 0066 #### [facility] [address] History and Physicalon 11-14 History and Physical MR#: [id number] [facility] Pt. Name: Kyle Powell Admitted: 11/13/2018 Date of : 1955 Attending Physician: Basim Tripathi MD Room #: [id number] Discharge Date: HISTORY AND PHYSICAL CHIEF COMPLAINT: [...] having black stools, which lasted until the Sunday afternoon. Since then, she had not had [...] A Basim Tripathi MD Date Dict: 11/14/2018/01:35 A/Basim Tripathi MD Date Trans: 11/14/2018 02:17 A/nav DN_[id number] Normal [facility] LDH BLOODon 11-14-2018 LDH 99 Units/L Low 140-271 [facility] Comment on above: Order Comment: No: D o not add to previous draw Performed By: #### 7 0066 #### [facility] [address] [place] [address], [place] POC GLUCOSE LABon 11-14-2018 Glucose mass conc 128 mg/dL High 70-100 [facility] Comment on above: Performed By: #### 8 5499 #### [facility] [address] [place] [address], [place] Glucose mass conc 128 mg/dL High 70-100 [facility] Comment on above: Performed By: #### 8 5499 #### [facility] [address] [place] [address], [place] Glucose mass conc 159 mg/dL High 70-100 [facility] Comment on above: Performed By: #### 7 0066 #### [facility] [address] [place] [place] [place] [address], [place] Glucose mass conc 213 mg/dL High 70-100 [facility] Comment on above: Performed By: #### 4 1000, 82918, 73886, 01473 #### [facility] [address] [place] [address], [place] Glucose mass conc 133 mg/dL High 70-100 [facility] Comment on above: Performed By: #### 4 1000, 51342, 13782, 57194 #### [facility] [address] [place] [address], [facility] Glucose mass conc 111 mg/dL High 70-100 [facility] Comment on above: Performed By: #### 4 1000, 25015, 85848, 93786 #### [facility] [address] [place] [address], [facility] PROTHROMBIN TIMEon 11-14- 9 INR Coag RelTime (PPP) 1.17 {INR} High 0.91-1.16 [facility] Comment on above: Order Comment: No: D [...] 1995;108:231S-246S. Performed By: #### 7 0066 #### [facility] [address] [place] [address], [facility] Prothrombin time (PT) Coag time (PPP) 14.9 s High 12.3-14.8 [facility] Comment on above: Order Comment: No: D o not add to previous draw Result Comment: ALL RESULTS MUST BE INTERPRETED WITH RESPECT TO BLOOD DRAWING ARTIFACT OR DILUTION ERROR OF ANTICOAGULANT AT THE TIME OF SAMPLING. Performed By: #### 7 0066 #### [facility] [address] RETICULOCYTE PANELon 019 ABSOLUTE RETICULOCYTE 0.1396 10*6/uL High 0.02 50-0.10 00 [facility] Comment on above: Performed By: #### 7 0066 #### [facility] [address] IMMATURE RETICULOCYTE FRACTION 35.3 % High 2.0-16.0 [facility] Comment on above: Performed By: #### 7 0066 #### [facility] [address] RETIC COUNT 5.17 % High 0.50-1.80 [facility] Comment on above: Performed By: #### 7 0066 #### [facility] [address] [facility] [address] RETICULOCYTE HEMOGLOBIN 36.5 pg High 28.0-36.0 [facility] Comment on above: Performed By: #### 7 0066 #### [facility] [address] TROPONIN-Ion 11-14-2018 Troponin I.cardiac mass conc 0.12 ng/mL Critically high 0.00-0.04 [facility] Comment on above: Order Comment: No: D o not add to previous draw Result Comment: M-IA EVIOUS CRITICAL RESULT REFERENCE RANGES: 0.00 - 0.04 ng/ml NORMAL 0.05 - 0.50 ng/ml INDETERMINATE > 0.50 ng/ml CONSISTENT WITH AN M.I. Performed By: #### 8 5499 #### [facility] [address] Troponin I.cardiac mass conc 0.16 ng/mL Critically high 0.00-0.04 [facility] Comment on above: Result Comment: M-IA EVIOUS CRITICAL RESULT REFERENCE RANGES: 0.00 - 0.04 ng/ml NORMAL 0.05 - 0.50 ng/ml INDETERMINATE > 0.50 ng/ml CONSISTENT WITH AN M.I. Performed By: #### 7 0066 #### [facility] [address] [place] [address], [facility] Troponin I.cardiac mass conc 0.28 ng/mL Critically high 0.00-0.04 [facility] Comment on above: Order Comment: No: D o not add to previous draw Result Comment: M-IA EVIOUS CRITICAL RESULT REFERENCE RANGES: 0.00 - 0.04 ng/ml NORMAL 0.05 - 0.50 ng/ml INDETERMINATE > 0.50 ng/ml CONSISTENT WITH AN M.I. Performed By: #### 4 1000, 91548, 81219, 69643 #### [facility] [address] [facility] [address] VITAMIN B12on 11-14-2018 Cobalamin (Vitamin B12) mass conc 338 pg/mL Normal 180-914 [facility] Comment on above: Order Comment: No: D o not add to previous draw Result Comment: REFE RENCE RANGES: 180-914 pg/mL Normal 145-179 pg/mL Indeterminate <145 pg/mL Deficient Performed By: #### 7 0066 #### [facility] [address] [place] [address], [facility] BASIC METABOLIC PANELon 12-0 Calcium mass conc 8.7 mg/dL Normal 8.6-10.3 [facility] Comment on above: Order Comment: No: D o not add to previous draw Performed By: #### 4 1000, 76196, 41228, 24236 #### [facility] [address] [place] [address], [facility] Chloride molar conc 109 mmol/L High 98-107 [facility] Comment on above: Order Comment: No: D o not add to previous draw Performed By: #### 4 1000, 20023, 90234, 21818 #### [facility] [address] [place] [address], [facility] CO2 molar conc 24 mmol/L Normal 21-31 [facility] Comment on above: Order Comment: No: D o not add to previous draw Performed By: #### 4 1000, 58678, 28070, 07670 #### [facility] [address] [place] [address], [place] Creatinine mass conc 0.79 mg/dL Normal 0.60-1.20 [facility] Comment on above: Order Comment: No: D o not add to previous draw Performed By: #### 4 1000, 88941, 45560, 09664 #### [facility] [address] [place] [address], [place] GFR/1.73 sq M predicted among blacks MDRD vol rate/area (S/P/Bld) mL/min/{1.73_m2} Normal >60 [facility] Comment on above: Order Comment: No: D o not add to previous draw Performed By: #### 4 1000, 93216, 72534, 82280 #### [facility] [address] [place] [address], [place] GFR/1.73 sq M predicted among non-blacks MDRD vol rate/area (S/P/Bld) mL/min/{1.73_m2} Normal >60 [facility] Comment on above: Order Comment: No: D o not add to previous draw Performed By: #### 4 1000, 06939, 50537, 22139 #### [facility] [address] [place] [address], [place] Glucose mass conc 128 mg/dL High 70-100 [facility] Comment on above: Order Comment: No: D o not add to previous draw Performed By: #### 4 1000, 82356, 50131, 88474 #### [facility] [address] [place] [address], [place] Potassium molar conc 4.3 mmol/L Normal 3.5-5.1 [facility] Comment on above: Order Comment: No: D o not add to previous draw Performed By: #### 4 1000, 34101, 08329, 01684 #### [facility] [address] [place] [address], [facility] Sodium molar conc 140 mmol/L Normal 136-145 [facility] Comment on above: Order Comment: No: D o not add to previous draw Performed By: #### 4 1000, 62145, 08848, 37965 #### [facility] [address] [place] [address], [facility] Urea nitrogen mass conc 23 mg/dL Normal 7-25 [facility] Comment on above: Order Comment: No: D o not add to previous draw Performed By: #### 4 1000, 86192, 02842, 45563 #### [facility] [address] [place] [address], [facility] CBC COMPLETE BLOOD COUNTon 1 11-08-2017 Erythrocyte distribution width Ratio (RBC) 12.6 % Normal 11.5-15.0 [facility] Comment on above: Order Comment: No: D o not add to previous draw Performed By: #### 4 1000, 50041, 90648, 04482 #### [facility] [address] [place] [address], [facility] Hematocrit Volume Fraction (Bld) 35.1 % Low 36.0-45.0 [facility] Comment on above: Order Comment: No: D o not add to previous draw Performed By: #### 4 1000, 07931, 08769, 20795 #### [facility] [address] [place] [address], [facility] Hemoglobin mass conc (Bld) 11.5 g/dL Low 12.0-15.0 [facility] Comment on above: Order Comment: No: D o not add to previous draw Performed By: #### 4 1000, 45000, 97708, 30621 #### [facility] [address] [place] [address], [facility] MCH Entitic mass (RBC) 30.6 pg Normal 27.0-33.0 [facility] Comment on above: Order Comment: No: D o not add to previous draw Performed By: #### 4 1000, 12215, 58293, 00673 #### [facility] [address] [place] [address], [facility] MCHC mass conc (RBC) 32.8 g/dL Normal 32.0-35.0 [facility] Comment on above: Order Comment: No: D o not add to previous draw Performed By: #### 4 1000, 66081, 92537, 19394 #### [facility] [address] [place] [address], [facility] MCV Entitic volume (RBC) 93.4 fL Normal 82.0-98.0 [facility] Comment on above: Order Comment: No: D o not add to previous draw Performed By: #### 4 1000, 14378, 04061, 95173 #### [facility] [address] [place] [id number], [facility] Nucleated RBC/100 WBC Ratio (Bld) 0 % Normal 0-0 [facility] Comment on above: Order Comment: No: D o not add to previous draw Performed By: #### 4 1000, 51144, 75607, 68807 #### [facility] [address] [place] [id number], [place] PLAT CNT 281 10*3/uL Normal 150-400 [facility] Comment on above: Order Comment: No: D o not add to previous draw Performed By: #### 4 1000, 52773, 22630, 00733 #### [facility] [address] [place] [address], [place] RBC #/vol (Bld) 3.76 10*6/uL Low 3.80-5.00 [facility] Comment on above: Order Comment: No: D o not add to previous draw Performed By: #### 4 1000, 42327, 27865, 72660 #### [facility] [address] [place] [address], [place] WBC #/vol (Bld) 7.49 10*3/uL Normal 4.00-10.60 [facility] Comment on above: Order Comment: No: D o not add to previous draw Performed By: #### 4 1000, 88231, 72060, 32883 #### [facility] [address] [place] [address], [facility] PHOSPHORUS BLOODon 8 Phosphate mass conc 4.1 mg/dL Normal 2.5-5.0 [facility] Comment on above: Order Comment: No: D o not add to previous draw Performed By: #### 4 1000, 12731, 22648, 19322 #### [facility] [address] [place] [address], [facility] POC GLUCOSE LABon 09-07-2018 Glucose mass conc 212 mg/dL High 70-100 [facility] Comment on above: Performed By: #### 4 1000, 69445, 74567, 03149 #### [facility] [address] [place] [address], [facility] Glucose mass conc 132 mg/dL High 70-100 [facility] Comment on above: Performed By: #### 4 1000, 96048, 56723, 57518 #### [facility] [address] [place] [address], [facility] APTTon 09-06-2018 aPTT Coag time (Bld) 28.1 s Normal 25.0-35.0 [facility] Comment on above: Order Comment: No: D [...] THIS PURPOSE. Performed By: #### 4 1000, 92822, 60370, 64974 #### [facility] [address] [place] [address], [facility] BASIC METABOLIC PANELon 12-0 Calcium mass conc 9.0 mg/dL Normal 8.6-10.3 [facility] Comment on above: Order Comment: No: D o not add to previous draw Performed By: #### 4 1000, 16082, 10269, 74121 #### [facility] [address] [place] [address], [place] Chloride molar conc 104 mmol/L Normal 98-107 [facility] Comment on above: Order Comment: No: D o not add to previous draw Performed By: #### 4 1000, 23930, 50217, 26504 #### [facility] [address] [place] [address], [place] CO2 molar conc 22 mmol/L Normal 21-31 [facility] Comment on above: Order Comment: No: D o not add to previous draw Performed By: #### 4 1000, 30959, 57130, 41994 #### [facility] [address] [place] [address], [place] Creatinine mass conc 0.95 mg/dL Normal 0.60-1.20 [facility] Comment on above: Order Comment: No: D o not add to previous draw Performed By: #### 4 1000, 26782, 66537, 32617 #### [facility] [address] [place] [address], [place] GFR/1.73 sq M predicted among blacks MDRD vol rate/area (S/P/Bld) mL/min/{1.73_m2} Normal >60 [facility] Comment on above: Order Comment: No: D o not add to previous draw Performed By: #### 4 1000, 05022, 56431, 10270 #### [facility] [address] [place] [address], [place] GFR/1.73 sq M predicted among non-blacks MDRD vol rate/area (S/P/Bld) 59 ml/min/1.73sq m Abnormal >60 [facility] Comment on above: Order Comment: No: D o not add to previous draw Performed By: #### 4 1000, 72608, 07923, 20918 #### [facility] [address] [place] [address], [facility] Glucose mass conc 172 mg/dL High 70-100 [facility] Comment on above: Order Comment: No: D o not add to previous draw Performed By: #### 4 1000, 94854, 20791, 30519 #### [facility] [address] [place] [address], [facility] Potassium molar conc 4.3 mmol/L Normal 3.5-5.1 [facility] Comment on above: Order Comment: No: D o not add to previous draw Performed By: #### 4 1000, 93639, 42802, 60830 #### [facility] [address] [facility]. [address] Sodium molar conc 135 mmol/L Low 136-145 [facility] Comment on above: Order Comment: No: D o not add to previous draw Performed By: #### 4 1000, 70558, 20122, 43672 #### [facility] [address] [facility] [place] [address], [facility] Urea nitrogen mass conc 27 mg/dL High 7-25 [facility] Comment on above: Order Comment: No: D o not add to previous draw Performed By: #### 4 1000, 11812, 16469, 76709 #### [facility] [address] [facility] [place] [address], [facility] CBC W/DIFFon 09-06-2018 ABS BASOPHILS 0.0 10*3/uL Normal 0.0-0.2 [facility] Comment on above: Order Comment: No: D o not add to previous draw Performed By: #### 4 1000, 08267, 43573, 47568 #### [facility] [address] [facility] [place] [address], [facility] ABS IMM GRANS 0.0 10*3/uL Normal 0.0-0.2 [facility] Comment on above: Order Comment: No: D o not add to previous draw Performed By: #### 4 1000, 87082, 03728, 72510 #### [facility] [address] ABS NEUTROPHILS 4.3 10*3/uL Normal 1.6-7.6 [facility] Comment on above: Order Comment: No: D o not add to previous draw Performed By: #### 4 1000, 49920, 23789, 41919 #### [facility] [address] Basophils #/vol (Bld) 0.3 % Normal 0.0-1.0 [facility] Comment on above: Order Comment: No: D o not add to previous draw Performed By: #### 4 1000, 90338, 46752, 29211 #### [facility] [address] Eosinophils #/vol (Bld) 0.2 10*3/uL Normal 0.0-0.5 [facility] Comment on above: Order Comment: No: D o not add to previous draw Performed By: #### 4 1000, 97764, 65707, 02313 #### [facility] [address] Eosinophils/100 WBC (Bld) 2.1 % Normal 0.0-6.0 [facility] Comment on above: Order Comment: No: D o not add to previous draw Performed By: #### 4 1000, 07601, 27059, 31663 #### [facility] [address] Erythrocyte distribution width Ratio (RBC) 12.7 % Normal 11.5-15.0 [facility] Comment on above: Order Comment: No: D o not add to previous draw Performed By: #### 4 1000, 00324, 08087, 16669 #### [facility] [address] [place] [address], [facility] Hematocrit Volume Fraction (Bld) 36.9 % Normal 36.0-45.0 [facility] Comment on above: Order Comment: No: D o not add to previous draw Performed By: #### 4 1000, 94561, 95623, 29481 #### [facility] [address] [place] [address], [facility] Hemoglobin mass conc (Bld) 12.2 g/dL Normal 12.0-15.0 [facility] Comment on above: Order Comment: No: D o not add to previous draw Performed By: #### 4 1000, 93060, 72199, 82144 #### [facility] [address] [place] [address], [facility] IMMATURE GRANS 0.3 % Normal 0.0-1.0 [facility] Comment on above: Order Comment: No: D o not add to previous draw Performed By: #### 4 1000, 42264, 26912, 11527 #### [facility] [address] [place] [address], [facility] Lymphocytes #/vol (Bld) 3.4 10*3/uL Normal 1.2-4.0 [facility] Comment on above: Order Comment: No: D o not add to previous draw Performed By: #### 4 1000, 39365, 06006, 86880 #### [facility] [address] [place] [address], [facility] Lymphocytes/100 WBC (Bld) 38.3 % Normal 20.0-45.0 [facility] Comment on above: Order Comment: No: D o not add to previous draw Performed By: #### 4 1000, 86473, 55307, 45433 #### [facility] [address] [place] [address], [facility] MCH Entitic mass (RBC) 30.6 pg Normal 27.0-33.0 [facility] Comment on above: Order Comment: No: D o not add to previous draw Performed By: #### 4 1000, 76180, 47434, 55970 #### [facility] [address] [place] [address], [facility] MCHC mass conc (RBC) 33.1 g/dL Normal 32.0-35.0 [facility] Comment on above: Order Comment: No: D o not add to previous draw Performed By: #### 4 1000, 03212, 87585, 75241 #### [facility] [address] [place] [address], [facility] MCV Entitic volume (RBC) 92.5 fL Normal 82.0-98.0 [facility] Comment on above: Order Comment: No: D o not add to previous draw Performed By: #### 4 1000, 27870, 64466, 88387 #### [facility] [address] [place] [address], [facility] Monocytes #/vol (Bld) 0.9 10*3/uL Normal 0.1-1.0 [facility] Comment on above: Order Comment: No: D o not add to previous draw Performed By: #### 4 1000, 95918, 64432, 00729 #### [facility] [address] [place] [address], [facility] MONOS 10.0 % Normal 5.0-12.0 [facility] Comment on above: Order Comment: No: D o not add to previous draw Performed By: #### 4 1000, 08455, 91461, 62838 #### [facility] [address] [place] [address], [facility] Neutrophils/100 WBC (Bld) 49.0 % Normal 40.0-72.0 [facility] Comment on above: Order Comment: No: D o not add to previous draw Performed By: #### 4 1000, 70186, 03200, 90412 #### [facility] [address] [place] [id number], [facility] Nucleated RBC/100 WBC Ratio (Bld) 0 % Normal 0-0 [facility] Comment on above: Order Comment: No: D o not add to previous draw Performed By: #### 4 1000, 92840, 65870, 38772 #### [facility] [address] [place] [address], [facility] PLAT CNT 278 10*3/uL Normal 150-400 [facility] Comment on above: Order Comment: No: D o not add to previous draw Performed By: #### 4 1000, 68524, 85249, 27875 #### [facility] [address] [place] [address], [facility] RBC #/vol (Bld) 3.99 10*6/uL Normal 3.80-5.00 [facility] Comment on above: Order Comment: No: D o not add to previous draw Performed By: #### 4 1000, 56136, 71520, 91723 #### [facility] [address] WBC #/vol (Bld) 8.84 10*3/uL Normal 4.00-10.60 [facility] Comment on above: Order Comment: No: D o not add to previous draw Performed By: #### 4 1000, 22065, 73730, 24779 #### [facility] [address] Cardiovascular Lab Reporton 09-06-2018 Cardiovascular Lab Report [facility] Patient Name: Jaiden [facility] Obinna Wright MR #: [id number] Department of Physician: Yasmine Joseph M.D. Division of Service Date: 09/06/2018 Cardiology Birthdate: 1955 Adult Cardiovascular Room #: [id number] [place] [address] Cardiovascular Laboratory Report FINAL IMPRESSION: 1. Hemodynamically [...] she was referred for heart catheterization from [facility]. PROCEDURE: 1. Coronary angiography. 2. FFR of LAD. 3. FFR of circumflex. 4. Balloon angioplasty LAD. 5. IC nitroglycerin. 6. Ultrasound-guided access of the ulnar artery. 7. Left heart catheterization. RECOMMENDATION: 1. The patient should be started on isosorbide mononitrate 60 mg on a daily basis. 2. Discontinue heparin and continue post catheterization IV hydration. Case was discussed with the primary bark peeler, Dr. Mcdonald. 3. Follow up with Dr. Mcdonald in 1-2 weeks. METHODS: After risks, benefits, and alternatives were explained to the patient, the patient was brought to catheterization lab in a fasting state. Access was obtained into the right ulnar artery under ultrasound guidance and a 6-[place] Terumo Schuyler sheath was placed in right radial artery. [...] Elisabeth/Jennifer Cormier M.D. Date Trans: 09/06/2018 11:28 A/mmo [id number] cc: Faraz Osman M.D. [address] [facility] [address] [place] [id number] Garrett Mcdonald M.D. [address] [facility] [address] Wilmar Morris D.O. [address] [facility] [address] [place] [id number] Normal [facility] MAGNESIUM BLOODon 09-06-2018 Magnesium mass conc 2.0 mg/dL Normal 1.9-2.7 [facility] Comment on above: Order Comment: No: D o not add to previous draw Performed By: #### 4 1000, 49828, 39557, 21003 #### [facility] [address] [place] [address], [place] PHOSPHORUS BLOODon 8 Phosphate mass conc 5.2 mg/dL High 2.5-5.0 [facility] Comment on above: Order Comment: No: D o not add to previous draw Performed By: #### 4 1000, 47562, 79938, 25107 #### [facility] [address] [place] [address], [place] POC GLUCOSE LABon 09-06-2018 Glucose mass conc 203 mg/dL High 70-100 [facility] Comment on above: Performed By: #### 4 1000, 99822, 33801, 98434 #### [facility] [address] [place] [address], [place] Glucose mass conc 176 mg/dL High 70-100 [facility] Comment on above: Performed By: #### 4 1000, 10907, 67155, 27683 #### [facility] [address] [place] [address], [place] Glucose mass conc 199 mg/dL High 70-100 [facility] Comment on above: Performed By: #### 4 1000, 50163, 59302, 13658 #### [facility] [address] [place] [address], [place] Glucose mass conc 158 mg/dL High 70-100 [facility] Comment on above: Performed By: #### 4 1000, 27486, 85834, 88157 #### [facility] [address] [place] [address], [facility] PROTHROMBIN TIMEon 8 INR Coag RelTime (PPP) 1.14 {INR} Normal 0.91-1.16 [facility] Comment on above: Order Comment: No: D [...] RANGE. CHEST 1995;108:[id number]. Performed By: #### 4 999, 01677, 32033, 98492 #### [facility] [address] [facility] Prothrombin time (PT) Coag time (PPP) 14.6 s Normal 12.3-14.8 [facility] Comment on above: Order Comment: No: D o not add to previous draw Result Comment: ALL RESULTS MUST BE INTERPRETED WITH RESPECT TO BLOOD DRAWING ARTIFACT OR DILUTION ERROR OF ANTICOAGULANT AT THE TIME OF SAMPLING. Performed By: #### 4 1000, 84528, 07113, 94692 #### [facility] [address] [place] [address], [facility] TROPONIN-Ion 09-06-2018 Troponin I.cardiac mass conc 0.00 ng/mL Normal 0.00-0.04 [facility] Comment on above: Order Comment: No: D o not add to previous draw Result Comment: REFE RENCE RANGES: 0.00 - 0.14 ng/ml NEGATIVE 0.15 - 0.25 ng/ml INDETERMINATE > 0.25 ng/ml INDICATIVE OF AN M.I. Performed By: #### 4 1000, 07429, 86325, 32454 #### [facility] [address] [place] [address], [facility] BASIC METABOLIC PANELon Calcium mass conc 9.3 mg/dL Normal 8.6-10.3 [facility] Comment on above: Order Comment: No: D o not add to previous draw Performed By: #### 4 1000, 22502, 01358, 63263 #### [facility] [address] [place] [address], [place] Chloride molar conc 104 mmol/L Normal 98-107 [facility] Comment on above: Order Comment: No: D o not add to previous draw Performed By: #### 4 1000, 94837, 04615, 90928 #### [facility] [address] [place] [address], [place] CO2 molar conc 23 mmol/L Normal 21-31 [facility] Comment on above: Order Comment: No: D o not add to previous draw Performed By: #### 4 1000, 05775, 33485, 88669 #### [facility] [address] [place] [address], [place] Creatinine mass conc 0.84 mg/dL Normal 0.60-1.20 [facility] Comment on above: Order Comment: No: D o not add to previous draw Performed By: #### 4 1000, 85426, 48976, 33293 #### [facility] [address] [place] [address], [place] GFR/1.73 sq M predicted among blacks MDRD vol rate/area (S/P/Bld) mL/min/{1.73_m2} Normal >60 [facility] Comment on above: Order Comment: No: D o not add to previous draw Performed By: #### 4 1000, 40967, 07490, 60979 #### [facility] [address] [place] [address], [place] GFR/1.73 sq M predicted among non-blacks MDRD vol rate/area (S/P/Bld) mL/min/{1.73_m2} Normal >60 [facility] Comment on above: Order Comment: No: D o not add to previous draw Performed By: #### 4 1000, 08235, 91661, 94027 #### [facility] [address] [place] [address], [place] Glucose mass conc 124 mg/dL High 70-100 [facility] Comment on above: Order Comment: No: D o not add to previous draw Performed By: #### 4 1000, 77040, 44238, 20856 #### [facility] [address] [place] [address], [place] Potassium molar conc 4.2 mmol/L Normal 3.5-5.1 [facility] Comment on above: Order Comment: No: D o not add to previous draw Performed By: #### 4 1000, 46688, 78731, 73515 #### [facility] [address] [place] [address], [place] Sodium molar conc 137 mmol/L Normal 136-145 [facility] Comment on above: Order Comment: No: D o not add to previous draw Performed By: #### 4 1000, 11644, 78357, 50912 #### [facility] [address] [place] [address], [place] Urea nitrogen mass conc 25 mg/dL Normal 7-25 [facility] Comment on above: Order Comment: No: D o not add to previous draw Performed By: #### 4 1000, 24932, 84817, 86413 #### [facility] [address] [facility] [place] [address], [facility] CBC W/DIFFon 09-05-2018 ABS BASOPHILS 0.0 10*3/uL Normal 0.0-0.2 [facility] Comment on above: Performed By: #### 4 1000, 47058, 09543, 29163 #### [facility] [address] [place] [address], [facility] ABS IMM GRANS 0.0 10*3/uL Normal 0.0-0.2 [facility] Comment on above: Performed By: #### 4 1000, 21759, 09716, 75384 #### [facility] [address] [facility] [place] [address], [facility] ABS NEUTROPHILS 5.5 10*3/uL Normal 1.6-7.6 [facility] Comment on above: Performed By: #### 4 1000, 15708, 98015, 99901 #### [facility] [address] [facility] [place] [address], [facility] Basophils #/vol (Bld) 0.4 % Normal 0.0-1.0 [facility] Comment on above: Performed By: #### 4 1000, 47501, 81511, 37496 #### [facility] [address] [facility] [place] [address], [facility] Eosinophils #/vol (Bld) 0.2 10*3/uL Normal 0.0-0.5 [facility] Comment on above: Performed By: #### 4 1000, 04624, 36913, 37234 #### [facility] [address] [facility] [place] [address], [facility] Eosinophils/100 WBC (Bld) 1.9 % Normal 0.0-6.0 [facility] Comment on above: Performed By: #### 4 1000, 66147, 76715, 63847 #### [facility] [address] [facility]. [address] Erythrocyte distribution width Ratio (RBC) 12.6 % Normal 11.5-15.0 [facility] Comment on above: Performed By: #### 4 1000, 92788, 71075, 78552 #### [facility] [address] [facility] Hematocrit Volume Fraction (Bld) 40.6 % Normal 36.0-45.0 [facility] Comment on above: Performed By: #### 4 1000, 20095, 86227, 29759 #### [facility] [address] Hemoglobin mass conc (Bld) 13.4 g/dL Normal 12.0-15.0 [facility] Comment on above: Performed By: #### 4 1000, 41933, 27071, 21326 #### [facility] [address] [facility]. [address] IMMATURE GRANS 0.2 % Normal 0.0-1.0 [facility] Comment on above: Performed By: #### 4 1000, 37717, 64994, 15501 #### [facility] [address] [facility]. [address] Lymphocytes #/vol (Bld) 3.5 10*3/uL Normal 1.2-4.0 [facility] Comment on above: Performed By: #### 4 1000, 83881, 86863, 75605 #### [facility] [address] [facility]. [address] Lymphocytes/100 WBC (Bld) 35.3 % Normal 20.0-45.0 [facility] Comment on above: Performed By: #### 4 1000, 58192, 13125, 81303 #### [facility] [address] [place] [address], [facility] MCH Entitic mass (RBC) 30.3 pg Normal 27.0-33.0 [facility] Comment on above: Performed By: #### 4 1000, 37122, 99411, 85778 #### [facility] [address] MCHC mass conc (RBC) 33.0 g/dL Normal 32.0-35.0 [facility] Comment on above: Performed By: #### 4 1000, 96014, 56197, 34407 #### [facility] [address] MCV Entitic volume (RBC) 91.9 fL Normal 82.0-98.0 [facility] Comment on above: Performed By: #### 4 1000, 88850, 11749, 42806 #### [facility] [address] [place] [address], [facility] Monocytes #/vol (Bld) 0.7 10*3/uL Normal 0.1-1.0 [facility] Comment on above: Performed By: #### 4 1000, 54940, 15714, 52587 #### [facility] [address] [facility] [address], [facility] MONOS 7.4 % Normal 5.0-12.0 [facility] Comment on above: Performed By: #### 4 1000, 69457, 73959, 75844 #### [facility] [address] [facility] Neutrophils/100 WBC (Bld) 54.8 % Normal 40.0-72.0 [facility] Comment on above: Performed By: #### 4 1000, 51993, 18867, 27062 #### [facility] [address] [address], [facility] Nucleated RBC/100 WBC Ratio (Bld) 0 % Normal 0-0 [facility] Comment on above: Performed By: #### 4 1000, 50444, 97171, 14480 #### [facility] [address] [place] [address], [facility] PLAT CNT 325 10*3/uL Normal 150-400 [facility] Comment on above: Performed By: #### 4 1000, 37407, 50597, 95043 #### [facility] [address] RBC #/vol (Bld) 4.42 10*6/uL Normal 3.80-5.00 [facility] Comment on above: Performed By: #### 4 1000, 13750, 17488, 67298 #### [facility] [address] WBC #/vol (Bld) 9.97 10*3/uL Normal 4.00-10.60 [facility] Comment on above: Performed By: #### 4 1000, 39583, 23525, 95803 #### [facility] [address] History and Physicalon 09-05 History and Physical MR#: [id number] [facility] Pt. Name: Kyle Powell Admitted: 09/05/2018 Date of : 1955 Attending Physician: Jonah Sanabria MD Room #: [id number] Discharge Date: HISTORY AND PHYSICAL HISTORY OF PRESENT ILLNESS: The patient is a 62-year-old female, very pleasant with past medical history significant for coronary artery disease, history of multiple strokes in the past, presented to the [facility] from the [facility] as a direct admit. The patient stated that 3 days ago she went to the [facility] because of the chest pain that was located centrally, nonradiating, getting worse with activity and then she was admitted in [facility] for 3 days. Today, she went for the Persantine stress test. When they were injecting Persantine, the patient found to have ST elevation and they aborted the procedure and decision were made to transfer the patient to the [facility] for a possible cardiac cath. 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 At the time of encounter, the patient is sitting comfortably in bed, not in acute distress. The patient has last cardiac cath in [facility] in 01/2017. The patient had severe ostial [...] Have been reconciled. LABORATORY DATA: From the [facility], troponin 0.01, last. The patient hemoglobin and BMP were stable. We ordered a repeat BMP and CBC and tropes level that are pending. CBC is unremarkable at our system. ASSESSMENT AND PLAN: 1. Atypical chest pain, rule out ACS. Persantine as a stress test was aborted at the [facility] because of ST-segment changes. We will [...] Sanabria MD Date Trans: 09/05/2018 04:59 P/nav [id number] Normal [facility] MAGNESIUM BLOODon 09-05-2018 Magnesium mass conc 1.9 mg/dL Normal 1.9-2.7 [facility] Comment on above: Order Comment: No: D o not add to previous draw Performed By: #### 4 1000, 66119, 19328, 81394 #### [facility] [address] [place] [address], [facility] PHOSPHORUS BLOODon 8 Phosphate mass conc 4.5 mg/dL Normal 2.5-5.0 [facility] Comment on above: Order Comment: No: D o not add to previous draw Performed By: #### 4 1000, 37906, 08586, 95858 #### [facility] [address] [place] [address], [facility] POC GLUCOSE LABon 09-05-2018 Glucose mass conc 192 mg/dL High 70-100 [facility] Comment on above: Performed By: #### 4 1000, 52596, 90685, 22430 #### [facility] [address] [place] [address], [facility] Glucose mass conc 119 mg/dL High 70-100 [facility] Comment on above: Performed By: #### 4 1000, 55288, 74155, 29523 #### [facility] [address] [place] [address], [facility] TROPONIN-Ion 09-05-2018 Troponin I.cardiac mass conc 0.01 ng/mL Normal 0.00-0.04 [facility] Comment on above: Order Comment: No: D o not add to previous draw Result Comment: REFE RENCE RANGES: 0.00 - 0.04 ng/ml NORMAL 0.05 - 0.50 ng/ml INDETERMINATE > 0.50 ng/ml CONSISTENT WITH AN M.I. Performed By: #### 4 1000, 51440, 88070, 92042 #### [facility] [address] [place] [address], [facility] Troponin I.cardiac mass conc 0.01 ng/mL Normal 0.00-0.04 [facility] Comment on above: Order Comment: No: D o not add to previous draw Result Comment: REFE RENCE RANGES: 0.00 - 0.04 ng/ml NORMAL 0.05 - 0.50 ng/ml INDETERMINATE > 0.50 ng/ml CONSISTENT WITH AN M.I. Performed By: #### 4 1000, 72171, 87484, 27487 #### [facility] [address] [place] [address], [facility] POC GLUCOSE LABon 05-03-2018 Glucose mass conc 299 mg/dL High 70-100 [facility] Comment on above: Performed By: #### 4 1000, 69848, 94871, 62188 #### [facility] [address] [place] [address], [place] Glucose mass conc 233 mg/dL High 70-100 [facility] Comment on above: Performed By: #### 4 1000, 32168, 19283, 50514 #### [facility] [address] [place] [address], [place] BASIC METABOLIC PANELon 08-0 Calcium mass conc 9.3 mg/dL Normal 8.6-10.3 [facility] Comment on above: Order Comment: No: D o not add to previous draw Performed By: #### 4 1000, 99076, 41698, 18758 #### [facility] [address] [place] [address], [place] Chloride molar conc 103 mmol/L Normal 98-107 [facility] Comment on above: Order Comment: No: D o not add to previous draw Performed By: #### 4 1000, 08785, 25367, 62288 #### [facility] [address] [place] [address], [place] CO2 molar conc 27 mmol/L Normal 21-31 [facility] Comment on above: Order Comment: No: D o not add to previous draw Performed By: #### 4 1000, 14017, 00428, 90375 #### [facility] [address] [place] [address], [place] Creatinine mass conc 0.80 mg/dL Normal 0.60-1.20 [facility] Comment on above: Order Comment: No: D o not add to previous draw Performed By: #### 4 1000, 64660, 54612, 15824 #### [facility] [address] [place] [address], [place] GFR/1.73 sq M predicted among blacks MDRD vol rate/area (S/P/Bld) mL/min/{1.73_m2} Normal >60 [facility] Comment on above: Order Comment: No: D o not add to previous draw Performed By: #### 4 1000, 00947, 64393, 25782 #### [facility] [address] [place] [address], [facility] GFR/1.73 sq M predicted among non-blacks MDRD vol rate/area (S/P/Bld) mL/min/{1.73_m2} Normal >60 [facility] Comment on above: Order Comment: No: D o not add to previous draw Performed By: #### 4 1000, 85966, 43033, 92858 #### [facility] [address] [place] [address], [place] Glucose mass conc 272 mg/dL High 70-100 [facility] Comment on above: Order Comment: No: D o not add to previous draw Performed By: #### 4 1000, 45829, 51362, 92145 #### [facility] [address] [place] [address], [place] Potassium molar conc 4.1 mmol/L Normal 3.5-5.1 [facility] Comment on above: Order Comment: No: D o not add to previous draw Performed By: #### 4 1000, 41601, 04422, 23431 #### [facility] [address] [place] [address], [place] Sodium molar conc 138 mmol/L Normal 136-145 [facility] Comment on above: Order Comment: No: D o not add to previous draw Performed By: #### 4 1000, 49040, 88884, 69395 #### [facility] [address] [place] [address], [place] Urea nitrogen mass conc 19 mg/dL Normal 7-25 [facility] Comment on above: Order Comment: No: D o not add to previous draw Performed By: #### 4 1000, 98685, 50047, 52900 #### [facility] [address] [place] [address], [place] CBC COMPLETE BLOOD COUNTon 0 - Erythrocyte distribution width Ratio (RBC) 12.9 % Normal 11.5-15.0 [facility] Comment on above: Order Comment: No: D o not add to previous draw Performed By: #### 4 1000, 06573, 93632, 36156 #### [facility] [address] [place] [address], [facility] Hematocrit Volume Fraction (Bld) 37.6 % Normal 36.0-45.0 [facility] Comment on above: Order Comment: No: D o not add to previous draw Performed By: #### 4 1000, 26984, 23151, 72489 #### [facility] [address] [place] [id number], [facility] Hemoglobin mass conc (Bld) 12.2 g/dL Normal 12.0-15.0 [facility] Comment on above: Order Comment: No: D o not add to previous draw Performed By: #### 4 1000, 66790, 36843, 68722 #### [facility] [address] [place] [address], [facility] MCH Entitic mass (RBC) 29.7 pg Normal 27.0-33.0 [facility] Comment on above: Order Comment: No: D o not add to previous draw Performed By: #### 4 1000, 67018, 51242, 89500 #### [facility] [address] [place] [address], [facility] MCHC mass conc (RBC) 32.4 g/dL Normal 32.0-35.0 [facility] Comment on above: Order Comment: No: D o not add to previous draw Performed By: #### 4 1000, 18678, 39830, 77437 #### [facility] [address] [place] [id number], [facility] MCV Entitic volume (RBC) 91.5 fL Normal 82.0-98.0 [facility] Comment on above: Order Comment: No: D o not add to previous draw Performed By: #### 4 1000, 04903, 35960, 34424 #### [facility] [address] [place] [address], [facility] Nucleated RBC/100 WBC Ratio (Bld) 0 % Normal 0-0 [facility] Comment on above: Order Comment: No: D o not add to previous draw Performed By: #### 4 1000, 27228, 42923, 15037 #### [facility] [address] [place] [address], [facility] PLAT CNT 229 10*3/uL Normal 150-400 [facility] Comment on above: Order Comment: No: D o not add to previous draw Performed By: #### 4 1000, 39972, 19710, 51352 #### [facility] [address] [place] [address], [facility] RBC #/vol (Bld) 4.11 10*6/uL Normal 3.80-5.00 [facility] Comment on above: Order Comment: No: D o not add to previous draw Performed By: #### 4 1000, 46437, 91967, 70771 #### [facility] [address] [place] [address], [facility] WBC #/vol (Bld) 6.30 10*3/uL Normal 4.00-10.60 [facility] Comment on above: Order Comment: No: D o not add to previous draw Performed By: #### 4 1000, 71376, 49489, 26962 #### [facility] [address] [place] [address], [facility] POC GLUCOSE LABon 05-02-2018 Glucose mass conc 295 mg/dL High 70-100 [facility] Comment on above: Performed By: #### 4 1000, 54563, 67912, 59662 #### [facility] [address] [place] [address], [facility] Glucose mass conc 327 mg/dL High 70-100 [facility] Comment on above: Performed By: #### 4 1000, 61137, 16360, 85033 #### [facility] [address] [place] [address], [place] Glucose mass conc 326 mg/dL High 70-100 [facility] Comment on above: Performed By: #### 4 1000, 47131, 41351, 73330 #### [facility] [address] [place] [address], [place] Glucose mass conc 265 mg/dL High 70-100 [facility] Comment on above: Performed By: #### 5 7307, 32953 #### [facility] [address] [place] [address], [place] Glucose mass conc 347 mg/dL High 70-100 [facility] Comment on above: Performed By: #### 5 7307, 24408 #### [facility] [address] [place] [address], [place] BASIC METABOLIC PANELon 08-0 Calcium mass conc 9.3 mg/dL Normal 8.6-10.3 [facility] Comment on above: Order Comment: No: D o not add to previous draw Performed By: #### 5 7307, 68090 #### [facility] [address] [place] [address], [facility] Chloride molar conc 103 mmol/L Normal 98-107 [facility] Comment on above: Order Comment: No: D o not add to previous draw Performed By: #### 5 7307, 84868 #### [facility] [address] [place] [address], [place] CO2 molar conc 24 mmol/L Normal 21-31 [facility] Comment on above: Order Comment: No: D o not add to previous draw Performed By: #### 5 7307, 03280 #### [facility] [address] [place] [address], [place] Creatinine mass conc 0.78 mg/dL Normal 0.60-1.20 [facility] Comment on above: Order Comment: No: D o not add to previous draw Performed By: #### 5 7307, 70662 #### [facility] [address] [place] [address], [place] GFR/1.73 sq M predicted among blacks MDRD vol rate/area (S/P/Bld) mL/min/{1.73_m2} Normal >60 [facility] Comment on above: Order Comment: No: D o not add to previous draw Performed By: #### 5 7307, 08028 #### [facility] [address] [place] [address], [place] GFR/1.73 sq M predicted among non-blacks MDRD vol rate/area (S/P/Bld) mL/min/{1.73_m2} Normal >60 [facility] Comment on above: Order Comment: No: D o not add to previous draw Performed By: #### 5 73, 22541 #### [facility] [address] [place] [address], [place] Glucose mass conc 270 mg/dL High 70-100 [facility] Comment on above: Order Comment: No: D o not add to previous draw Performed By: #### 5 7307, 42768 #### [facility] [address] [place] [address], [place] Potassium molar conc 4.2 mmol/L Normal 3.5-5.1 [facility] Comment on above: Order Comment: No: D o not add to previous draw Performed By: #### 5 7307, 12555 #### [facility] [address] [place] [address], [place] Sodium molar conc 136 mmol/L Normal 136-145 [facility] Comment on above: Order Comment: No: D o not add to previous draw Performed By: #### 5 7307, 66884 #### [facility] [address] [place] [address], [place] Urea nitrogen mass conc 20 mg/dL Normal 7-25 [facility] Comment on above: Order Comment: No: D o not add to previous draw Performed By: #### 5 7307, 17021 #### [facility] [address] [place] [address], [facility] CBC COMPLETE BLOOD COUNTon 0 05-01-2018 Erythrocyte distribution width Ratio (RBC) 13.0 % Normal 11.5-15.0 [facility] Comment on above: Order Comment: No: D o not add to previous draw Performed By: #### 5 7307, 54670 #### [facility] [address] [place] [address], [facility] Hematocrit Volume Fraction (Bld) 37.6 % Normal 36.0-45.0 [facility] Comment on above: Order Comment: No: D o not add to previous draw Performed By: #### 5 7307, 92358 #### [facility] [address] [place] [address], [facility] Hemoglobin mass conc (Bld) 12.5 g/dL Normal 12.0-15.0 [facility] Comment on above: Order Comment: No: D o not add to previous draw Performed By: #### 5 7307, 12754 #### [facility] [address] [place] [address], [facility] MCH Entitic mass (RBC) 30.2 pg Normal 27.0-33.0 [facility] Comment on above: Order Comment: No: D o not add to previous draw Performed By: #### 5 7307, 79132 #### [facility] [address] [place] [address], [facility] MCHC mass conc (RBC) 33.2 g/dL Normal 32.0-35.0 [facility] Comment on above: Order Comment: No: D o not add to previous draw Performed By: #### 5 7307, 86355 #### [facility] [address] [place] [address], [facility] MCV Entitic volume (RBC) 90.8 fL Normal 82.0-98.0 [facility] Comment on above: Order Comment: No: D o not add to previous draw Performed By: #### 5 7307, 30586 #### [facility] [address] [place] [address], [facility] Nucleated RBC/100 WBC Ratio (Bld) 0 % Normal 0-0 [facility] Comment on above: Order Comment: No: D o not add to previous draw Performed By: #### 5 73, 10866 #### [facility] [address] [place] [address], [facility] PLAT CNT 252 10*3/uL Normal 150-400 [facility] Comment on above: Order Comment: No: D o not add to previous draw Performed By: #### 5 73, 24906 #### [facility] [address] [place] [address], [facility] RBC #/vol (Bld) 4.14 10*6/uL Normal 3.80-5.00 [facility] Comment on above: Order Comment: No: D o not add to previous draw Performed By: #### 5 73, 94782 #### [facility] [address] [place] [address], [facility] WBC #/vol (Bld) 6.80 10*3/uL Normal 4.00-10.60 [facility] Comment on above: Order Comment: No: D o not add to previous draw Performed By: #### 5 73, 11457 #### [facility] [address] [place] [address], [facility] POC GLUCOSE LABon 05-01-2018 Glucose mass conc 300 mg/dL High 70-100 [facility] Comment on above: Performed By: #### 5 73, 71066 #### [facility] [address] [place] [address], [facility] Glucose mass conc 344 mg/dL High 70-100 [facility] Comment on above: Performed By: #### 5 73Ela, 08939 #### [facility] [address] [place] [address], [place] Glucose mass conc 335 mg/dL High 70-100 [facility] Comment on above: Performed By: #### 5 7307, 58702 #### [facility] [address] [place] [address], [place] Glucose mass conc 263 mg/dL High 70-100 [facility] Comment on above: Performed By: #### 5 7307, 44448 #### [facility] [address] [place] [address], [place] BASIC METABOLIC PANELon 07-3 Calcium mass conc 9.0 mg/dL Normal 8.6-10.3 [facility] Comment on above: Order Comment: No: D o not add to previous draw Performed By: #### 5 7307, 14782 #### [facility] [address] [place] [address], [place] Chloride molar conc 105 mmol/L Normal 98-107 [facility] Comment on above: Order Comment: No: D o not add to previous draw Performed By: #### 5 7307, 01527 #### [facility] [address] [place] [address], [place] CO2 molar conc 25 mmol/L Normal 21-31 [facility] Comment on above: Order Comment: No: D o not add to previous draw Performed By: #### 5 7307, 94990 #### [facility] [address] [place] [address], [place] Creatinine mass conc 0.80 mg/dL Normal 0.60-1.20 [facility] Comment on above: Order Comment: No: D o not add to previous draw Performed By: #### 5 7307, 31903 #### [facility] [address] [place] [address], [place] GFR/1.73 sq M predicted among blacks MDRD vol rate/area (S/P/Bld) mL/min/{1.73_m2} Normal >60 [facility] Comment on above: Order Comment: No: D o not add to previous draw Performed By: #### 5 7307, 40436 #### [facility] [address] [place] [address], [place] GFR/1.73 sq M predicted among non-blacks MDRD vol rate/area (S/P/Bld) mL/min/{1.73_m2} Normal >60 [facility] Comment on above: Order Comment: No: D o not add to previous draw Performed By: #### 5 73, 34872 #### [facility] [address] [place] [address], [place] Glucose mass conc 238 mg/dL High 70-100 [facility] Comment on above: Order Comment: No: D o not add to previous draw Performed By: #### 5 73, 19421 #### [facility] [address] [place] [address], [place] Potassium molar conc 3.9 mmol/L Normal 3.5-5.1 [facility] Comment on above: Order Comment: No: D o not add to previous draw Performed By: #### 5 7307, 97178 #### [facility] [address] [place] [address], [place] Sodium molar conc 137 mmol/L Normal 136-145 [facility] Comment on above: Order Comment: No: D o not add to previous draw Performed By: #### 5 7307, 76895 #### [facility] [address] [place] [address], [place] Urea nitrogen mass conc 21 mg/dL Normal 7-25 [facility] Comment on above: Order Comment: No: D o not add to previous draw Performed By: #### 5 7307, 60073 #### [facility] [address] [place] [address], [place] CBC COMPLETE BLOOD COUNTon 0 - Erythrocyte distribution width Ratio (RBC) 12.9 % Normal 11.5-15.0 [facility] Comment on above: Order Comment: No: D o not add to previous draw Performed By: #### 5 7307, 29815 #### [facility] [address] [place] [address], [facility] Hematocrit Volume Fraction (Bld) 37.4 % Normal 36.0-45.0 [facility] Comment on above: Order Comment: No: D o not add to previous draw Performed By: #### 5 7307, 03554 #### [facility] [address] [place] [address], [facility] Hemoglobin mass conc (Bld) 12.2 g/dL Normal 12.0-15.0 [facility] Comment on above: Order Comment: No: D o not add to previous draw Performed By: #### 5 7307, 68205 #### [facility] [address] [place] [address], [facility] MCH Entitic mass (RBC) 29.5 pg Normal 27.0-33.0 [facility] Comment on above: Order Comment: No: D o not add to previous draw Performed By: #### 5 7307, 58125 #### [facility] [address] [place] [id number], [facility] MCHC mass conc (RBC) 32.6 g/dL Normal 32.0-35.0 [facility] Comment on above: Order Comment: No: D o not add to previous draw Performed By: #### 5 7307, 22565 #### [facility] [address] [place] [address], [facility] MCV Entitic volume (RBC) 90.6 fL Normal 82.0-98.0 [facility] Comment on above: Order Comment: No: D o not add to previous draw Performed By: #### 5 7307, 42496 #### [facility] [address] [place] [id number] [place] [address] Nucleated RBC/100 WBC Ratio (Bld) 0 % Normal 0-0 [facility] Comment on above: Order Comment: No: D o not add to previous draw Performed By: #### 5 7307, 08302 #### [facility] [address] [place] [address], [facility] PLAT CNT 262 10*3/uL Normal 150-400 [facility] Comment on above: Order Comment: No: D o not add to previous draw Performed By: #### 5 7307, 92720 #### [facility] [address] [place] [address], [facility] RBC #/vol (Bld) 4.13 10*6/uL Normal 3.80-5.00 [facility] Comment on above: Order Comment: No: D o not add to previous draw Performed By: #### 5 7307, 16995 #### [facility] [address] [place] [address], [facility] WBC #/vol (Bld) 6.73 10*3/uL Normal 4.00-10.60 [facility] Comment on above: Order Comment: No: D o not add to previous draw Performed By: #### 5 7307, 01124 #### [facility] [address] [place] [address], [facility] LIPID PROFILEon 04-30-2018 Cholesterol in HDL mass conc 27 mg/dL Normal 23-92 [facility] Comment on above: Order Comment: No: D o not add to previous draw Result Comment: Slig ht variation in normal range could be due to gender and/or age. HDL CHOLESTEROL REFERENCE RANGE: 20 years and older Cardiovascular Risk > or =60 mg/dL Desirable 40 TO 59 mg/dL Low Risk <40 mg/dL High Risk Performed By: #### 5 7307, 50106 #### [facility] [address] [place] [address], [facility] Cholesterol in LDL mass conc 0 mg/dL Normal 0-130 [facility] Comment on above: Order Comment: No: D o not add to previous draw Result Comment: LDL IS A CALCULATION LDL IS ONLY VALID IF THE TRIG IS LESS THAN 400. Performed By: #### 5 7307, 64533 #### [facility] [address] [place] [address], [facility] Cholesterol mass conc 112 mg/dL Low 120-200 [facility] Comment on above: Order Comment: No: D o not add to previous draw Result Comment: CHOL ESTEROL REFERENCE RANGE: 20 YEARS AND OLDER CARDIOVASCULAR RISK Less than 200 mg/dl Low Risk 200 to 239 mg/dl Borderline Risk 240 mg/dl and greater High Risk Performed By: #### 5 7307, 94868 #### [facility] [address] [place] [address], [facility] Cholesterol.total/Cho lesterol in HDL mass ratio 4.1 {ratio} Normal .0-4.5 [facility] Comment on above: Order Comment: No: D o not add to previous draw Performed By: #### 5 7307, 97278 #### [facility] [address] [place] [address], [facility] NON-HDL CHOLESTEROL 85 mg/dL Normal [facility] Comment on above: Order Comment: No: D o not add to previous draw Performed By: #### 5 7307, 22455 #### [facility] [address] [place] [address], [facility] Triglyceride mass conc 424 mg/dL High 40-149 [facility] Comment on above: Order Comment: No: D o not add to previous draw Result Comment: TRIG LYCERIDE REFERENCE RANGE: 20 YEARS AND OLDER CARDIOVASCULAR RISK LESS THAN 150 mg/dl LOW RISK 150 TO 199 mg/dl BORDERLINE RISK 200 mg/dl AND GREATER HIGH RISK Performed By: #### 5 7307, 64077 #### [facility] [address] [place] [address], [place] VLDL CHOL 85 mg/dL High 0-40 [facility] Comment on above: Order Comment: No: D o not add to previous draw Performed By: #### 5 7307, 04539 #### [facility] [address] [place] [address], [facility] MAGNESIUM BLOODon 04-30-2018 Magnesium mass conc 1.8 mg/dL Low 1.9-2.7 [facility] Comment on above: Order Comment: No: D o not add to previous draw Performed By: #### 5 7307, 87903 #### [facility] [address] [place] [address], [facility] MRI BRAIN WO CONTRASTon 04-02 MRI BRAIN WO CONTRAST [facility] Department of Radiology [address] [place] [id number] Patient Name: KYLE POWELL : 1955 Sex: F Age: Race: White Pt. Location: [place] [address] Patient Status: I Ordered Date: 04/28/2018 6:40:00 [...] findings. Electronically signed by:Cornelius Bennett. Transcribed by: [email or web address], User Resident: ADIS BARRETT Electronically Signed by: CORNELIUS BENNETT @ 05/01/2018 03:45 PM I personally read this/these film(s) with this resident Normal [facility] Comment on above: Order Comment: No: D o not add to previous draw PHOSPHORUS BLOODon 8 Phosphate mass conc 4.7 mg/dL Normal 2.5-5.0 [facility] Comment on above: Order Comment: No: D o not add to previous draw Performed By: #### 5 1521, 49549 #### [facility] [address] [place] [address], [facility] POC GLUCOSE LABon 04-30-2018 Glucose mass conc 302 mg/dL High 70-100 [facility] Comment on above: Performed By: #### 5 7903, 95263 #### [facility] [address] [place] [address], [facility] Glucose mass conc 309 mg/dL High 70-100 [facility] Comment on above: Performed By: #### 5 7307, 58853 #### [facility] [address] [place] [address], [place] Glucose mass conc 387 mg/dL High 70-100 [facility] Comment on above: Performed By: #### 5 7307, 93948 #### [facility] [address] [place] [address], [place] Glucose mass conc 229 mg/dL High 70-100 [facility] Comment on above: Performed By: #### 5 7307, 44280 #### [facility] [address] [place] [address], [facility] Glucose mass conc 329 mg/dL High 70-100 [facility] Comment on above: Performed By: #### 5 7307, 80320 #### [facility] [address] [place] [address], [facility] BASIC METABOLIC PANELon 07-3 Calcium mass conc 8.8 mg/dL Normal 8.6-10.3 [facility] Comment on above: Order Comment: No: D o not add to previous draw Performed By: #### 5 0608 #### [facility] [address] [place] [address], [facility] Chloride molar conc 103 mmol/L Normal 98-107 [facility] Comment on above: Order Comment: No: D o not add to previous draw Performed By: #### 5 0608 #### [facility] [address] [place] [address], [place] CO2 molar conc 20 mmol/L Low 21-31 [facility] Comment on above: Order Comment: No: D o not add to previous draw Performed By: #### 5 0608 #### [facility] [address] [place] [address], [place] Creatinine mass conc 0.86 mg/dL Normal 0.60-1.20 [facility] Comment on above: Order Comment: No: D o not add to previous draw Performed By: #### 5 0608 #### [facility] [address] [place] [address], [place] GFR/1.73 sq M predicted among blacks MDRD vol rate/area (S/P/Bld) mL/min/{1.73_m2} Normal >60 [facility] Comment on above: Order Comment: No: D o not add to previous draw Performed By: #### 5 0608 #### [facility] [address] [place] [address], [place] GFR/1.73 sq M predicted among non-blacks MDRD vol rate/area (S/P/Bld) mL/min/{1.73_m2} Normal >60 [facility] Comment on above: Order Comment: No: D o not add to previous draw Performed By: #### 5 0608 #### [facility] [address] [place] [address], [facility] Glucose mass conc 266 mg/dL High 70-100 [facility] Comment on above: Order Comment: No: D o not add to previous draw Performed By: #### 5 0608 #### [facility] [address] [place] [address], [place] Potassium molar conc 4.0 mmol/L Normal 3.5-5.1 [facility] Comment on above: Order Comment: No: D o not add to previous draw Performed By: #### 5 0608 #### [facility] [address] [place] [address], [place] Sodium molar conc 133 mmol/L Low 136-145 [facility] Comment on above: Order Comment: No: D o not add to previous draw Performed By: #### 5 0608 #### [facility] [address] [place] [address], [place] Urea nitrogen mass conc 20 mg/dL Normal 7-25 [facility] Comment on above: Order Comment: No: D o not add to previous draw Performed By: #### 5 0608 #### [facility] [address] CBC COMPLETE BLOOD COUNTon 0 04-29-2018 Erythrocyte distribution width Ratio (RBC) 12.9 % Normal 11.5-15.0 [facility] Comment on above: Order Comment: No: D o not add to previous draw Performed By: #### 5 0608 #### [facility] [address] Hematocrit Volume Fraction (Bld) 39.9 % Normal 36.0-45.0 [facility] Comment on above: Order Comment: No: D o not add to previous draw Performed By: #### 5 0608 #### [facility] [address] Hemoglobin mass conc (Bld) 12.8 g/dL Normal 12.0-15.0 [facility] Comment on above: Order Comment: No: D o not add to previous draw Performed By: #### 5 0608 #### [facility] [address] [address], [facility] MCH Entitic mass (RBC) 29.6 pg Normal 27.0-33.0 [facility] Comment on above: Order Comment: No: D o not add to previous draw Performed By: #### 5 0608 #### [facility] [address] [place] [id number], [facility] MCHC mass conc (RBC) 32.1 g/dL Normal 32.0-35.0 [facility] Comment on above: Order Comment: No: D o not add to previous draw Performed By: #### 5 0608 #### [facility] [address] [place] [id number], [facility] MCV Entitic volume (RBC) 92.1 fL Normal 82.0-98.0 [facility] Comment on above: Order Comment: No: D o not add to previous draw Performed By: #### 5 0608 #### [facility] [address] [facility] [place] [address], [facility] Nucleated RBC/100 WBC Ratio (Bld) 0 % Normal 0-0 [facility] Comment on above: Order Comment: No: D o not add to previous draw Performed By: #### 5 0608 #### [facility] [address] [place] [address], [facility] PLAT CNT 267 10*3/uL Normal 150-400 [facility] Comment on above: Order Comment: No: D o not add to previous draw Performed By: #### 5 0608 #### [facility] [address] [place] [address], [facility] RBC #/vol (Bld) 4.33 10*6/uL Normal 3.80-5.00 [facility] Comment on above: Order Comment: No: D o not add to previous draw Performed By: #### 5 0608 #### [facility] [address] [facility] [place] [address], [facility] WBC #/vol (Bld) 7.66 10*3/uL Normal 4.00-10.60 [facility] Comment on above: Order Comment: No: D o not add to previous draw Performed By: #### 5 0608 #### [facility] [address] [facility] [place] [address], [facility] HEMOGLOBIN A1Con 04-29-2018 Hemoglobin A1c/Hemoglobin.total mass fraction (Bld) 13.7 % High 4.0-6.0 [facility] Comment on above: Order Comment: No: D o not add to previous draw Performed By: #### 5 0608 #### [facility] [address] [place] [address], [facility] Hemoglobin A1c/Hemoglobin.total mass fraction (Bld) 346 mg/dL High 70-126 [facility] Comment on above: Order Comment: No: D o not add to previous draw Performed By: #### 5 0608 #### [facility] [address] [place] [address], [facility] LIPID PROFILEon 04-29-2018 Cholesterol in HDL mass conc 25 mg/dL Normal 23-92 [facility] Comment on above: Order Comment: No: D o not add to previous draw Result Comment: Slig ht variation in normal range could be due to gender and/or age. HDL CHOLESTEROL REFERENCE RANGE: 20 years and older Cardiovascular Risk > or =60 mg/dL Desirable 40 TO 59 mg/dL Low Risk <40 mg/dL High Risk Performed By: #### 5 0608 #### [facility] [address] [place] [address], [facility] Cholesterol in LDL mass conc 'UNABLE TO CALC Normal 0-130 [facility] Comment on above: Order Comment: No: D o not add to previous draw Result Comment: LDL IS A CALCULATION LDL IS ONLY VALID IF THE TRIG IS LESS THAN 400. Performed By: #### 5 0608 #### [facility] [address] [place] [address], [facility] Cholesterol mass conc 115 mg/dL Low 120-200 [facility] Comment on above: Order Comment: No: D o not add to previous draw Result Comment: CHOL ESTEROL REFERENCE RANGE: 20 YEARS AND OLDER CARDIOVASCULAR RISK Less than 200 mg/dl Low Risk 200 to 239 mg/dl Borderline Risk 240 mg/dl and greater High Risk Performed By: #### 5 0608 #### [facility] [address] [place] [address], [facility] Cholesterol.total/Cho lesterol in HDL mass ratio 4.6 {ratio} High .0-4.5 [facility] Comment on above: Order Comment: No: D o not add to previous draw Performed By: #### 5 0608 #### [facility] [address] [place] [address], [facility] NON-HDL CHOLESTEROL 90 mg/dL Normal [facility] Comment on above: Order Comment: No: D o not add to previous draw Performed By: #### 5 0608 #### [facility] [address] [place] [address], [facility] Triglyceride mass conc 498 mg/dL High 40-149 [facility] Comment on above: Order Comment: No: D o not add to previous draw Result Comment: TRIG LYCERIDE REFERENCE RANGE: 20 YEARS AND OLDER CARDIOVASCULAR RISK LESS THAN 150 mg/dl LOW RISK 150 TO 199 mg/dl BORDERLINE RISK 200 mg/dl AND GREATER HIGH RISK Performed By: #### 5 0608 #### [facility] [address] [place] [address], [facility] VLDL CHOL 100 mg/dL High 0-40 [facility] Comment on above: Order Comment: No: D o not add to previous draw Performed By: #### 5 0608 #### [facility] [address] [place] [address], [facility] MAGNESIUM BLOODon 04-29-2018 Magnesium mass conc 1.8 mg/dL Low 1.9-2.7 [facility] Comment on above: Order Comment: No: D o not add to previous draw Performed By: #### 5 0608 #### [facility] [address] [place] [address], [facility] PHOSPHORUS BLOODon 8 Phosphate mass conc 5.5 mg/dL High 2.5-5.0 [facility] Comment on above: Order Comment: No: D o not add to previous draw Performed By: #### 5 0608 #### [facility] [address] [place] [address], [facility] POC GLUCOSE LABon 04-29-2018 Glucose mass conc 287 mg/dL High 70-100 [facility] Comment on above: Performed By: #### 5 7307, 69054 #### [facility] [address] [place] [address], [facility] Glucose mass conc 317 mg/dL High 70-100 [facility] Comment on above: Performed By: #### 5 0608 #### [facility] [address] [place] [address], [facility] Glucose mass conc 267 mg/dL High 70-100 [facility] Comment on above: Performed By: #### 5 0608 #### [facility] [address] [place] [address], [facility] Glucose mass conc 347 mg/dL High 70-100 [facility] Comment on above: Performed By: #### 8 5499 #### [facility] [address] [place] [address], [facility] APTTon 04-28-2018 aPTT Coag time (Bld) 28.1 s Normal 25.0-35.0 [facility] Comment on above: Order Comment: No: D [...] THIS PURPOSE. Performed By: #### 5 7307, 58760 #### [facility] [address] [facility] [place] [address], [facility] CALCIUM IONIZED CBGLon 04-28 IONIZED CALCIUM 1.07 mmol/L Low 1.12-1.30 [facility] Comment on above: Performed By: #### 7 0066 #### [facility] [address] [place] [address], [facility] CBC COMPLETE BLOOD COUNTon 0 04-28-2018 Erythrocyte distribution width Ratio (RBC) 12.8 % Normal 11.5-15.0 [facility] Comment on above: Order Comment: No: D o not add to previous draw Performed By: #### 5 0608 #### [facility] [address] [place] [address], [place] Hematocrit Volume Fraction (Bld) 41.3 % Normal 36.0-45.0 [facility] Comment on above: Order Comment: No: D o not add to previous draw Performed By: #### 5 0608 #### [facility] [address] [place] [address], [facility] Hemoglobin mass conc (Bld) 13.8 g/dL Normal 12.0-15.0 [facility] Comment on above: Order Comment: No: D o not add to previous draw Performed By: #### 5 0608 #### [facility] [address] [place] [address], [facility] MCH Entitic mass (RBC) 30.1 pg Normal 27.0-33.0 [facility] Comment on above: Order Comment: No: D o not add to previous draw Performed By: #### 5 0608 #### [facility] [address] [place] [address], [facility] MCHC mass conc (RBC) 33.4 g/dL Normal 32.0-35.0 [facility] Comment on above: Order Comment: No: D o not add to previous draw Performed By: #### 5 0608 #### [facility] [address] [place] [address], [facility] MCV Entitic volume (RBC) 90.2 fL Normal 82.0-98.0 [facility] Comment on above: Order Comment: No: D o not add to previous draw Performed By: #### 5 0608 #### [facility] [address] [place] [address], [facility] Nucleated RBC/100 WBC Ratio (Bld) 0 % Normal 0-0 [facility] Comment on above: Order Comment: No: D o not add to previous draw Performed By: #### 5 0608 #### [facility] [address] [place] [address], [facility] PLAT CNT 261 10*3/uL Normal 150-400 [facility] Comment on above: Order Comment: No: D o not add to previous draw Performed By: #### 5 0608 #### [facility] [address] [place] [address], [facility] RBC #/vol (Bld) 4.58 10*6/uL Normal 3.80-5.00 [facility] Comment on above: Order Comment: No: D o not add to previous draw Performed By: #### 5 0608 #### [facility] [address] [place] [address], [facility] WBC #/vol (Bld) 7.28 10*3/uL Normal 4.00-10.60 [facility] Comment on above: Order Comment: No: D o not add to previous draw Performed By: #### 5 0608 #### [facility] [address] [place] [address], [facility] COMP METABOLIC PANELon 04-28 Albumin mass conc 3.5 g/dL Normal 3.5-5.7 [facility] Comment on above: Order Comment: No: D o not add to previous draw Performed By: #### 4 1000, 01148, 67540, 41331 #### [facility] [address] [place] [address], [facility] ALKALINE PHOSPH 68 IU/L Normal 34-104 [facility] Comment on above: Order Comment: No: D o not add to previous draw Performed By: #### 4 1000, 78615, 24546, 31386 #### [facility] [address] [place] [address], [place] ALT enzyme act/vol 22 U/L Normal 7-52 [facility] Comment on above: Order Comment: No: D o not add to previous draw Performed By: #### 4 1000, 03641, 93044, 69742 #### [facility] [address] [place] [address], [place] AST enzyme act/vol 19 U/L Normal 13-39 [facility] Comment on above: Order Comment: No: D o not add to previous draw Performed By: #### 4 1000, 37608, 00786, 53837 #### [facility] [address] [place] [address], [place] Bilirubin mass conc 0.4 mg/dL Normal 0.3-1.0 [facility] Comment on above: Order Comment: No: D o not add to previous draw Performed By: #### 4 1000, 10426, 99445, 37167 #### [facility] [address] [place] [address], [place] Calcium mass conc 8.9 mg/dL Normal 8.6-10.3 [facility] Comment on above: Order Comment: No: D o not add to previous draw Performed By: #### 4 1000, 72073, 31544, 11301 #### [facility] [address] [place] [address], [place] Chloride molar conc 99 mmol/L Normal 98-107 [facility] Comment on above: Order Comment: No: D o not add to previous draw Performed By: #### 4 1000, 20263, 99168, 61202 #### [facility] [address] [place] [address], [place] CO2 molar conc 21 mmol/L Normal 21-31 [facility] Comment on above: Order Comment: No: D o not add to previous draw Performed By: #### 4 1000, 37723, 34815, 32251 #### [facility] [address] [place] [address], [place] Creatinine mass conc 0.94 mg/dL Normal 0.60-1.20 [facility] Comment on above: Order Comment: No: D o not add to previous draw Performed By: #### 4 1000, 73309, 12767, 09362 #### [facility] [address] [place] [address], [place] GFR/1.73 sq M predicted among blacks MDRD vol rate/area (S/P/Bld) mL/min/{1.73_m2} Normal >60 [facility] Comment on above: Order Comment: No: D o not add to previous draw Performed By: #### 4 1000, 31979, 06438, 70623 #### [facility] [address] [place] [address], [place] GFR/1.73 sq M predicted among non-blacks MDRD vol rate/area (S/P/Bld) mL/min/{1.73_m2} Normal >60 [facility] Comment on above: Order Comment: No: D o not add to previous draw Performed By: #### 4 1000, 92955, 59954, 53872 #### [facility] [address] [place] [address], [place] Glucose mass conc 317 mg/dL High 70-100 [facility] Comment on above: Order Comment: No: D o not add to previous draw Performed By: #### 4 1000, 93567, 64377, 41245 #### [facility] [address] [place] [address], [place] Potassium molar conc 4.3 mmol/L Normal 3.5-5.1 [facility] Comment on above: Order Comment: No: D o not add to previous draw Performed By: #### 4 1000, 91923, 50111, 25220 #### [facility] [address] [place] [address], [place] Protein mass conc 6.7 g/dL Normal 6.0-8.3 [facility] Comment on above: Order Comment: No: D o not add to previous draw Performed By: #### 4 1000, 73485, 15161, 62391 #### [facility] [address] [place] [address], [place] Sodium molar conc 131 mmol/L Low 136-145 [facility] Comment on above: Order Comment: No: D o not add to previous draw Performed By: #### 4 1000, 94318, 04485, 78252 #### [facility] [address] [facility] [place] [address], [facility] Urea nitrogen mass conc 17 mg/dL Normal 7-25 [facility] Comment on above: Order Comment: No: D o not add to previous draw Performed By: #### 4 1000, 19599, 30259, 19305 #### [facility] [address] [place] [address], [facility] CTA HEADon 04-28-2018 CTA HEAD [facility] Department of Radiology [address] [place] [id number] Patient Name: KYLE POWELL : 1955 Sex: [...] findings. Electronically signed by:Leonides Velásquez. Transcribed by: [email or web address], User Resident: ANNY SCHAFER Electronically Signed by: LEONIDES VELÁSQUEZ @ 04/29/2018 09:17 AM I personally read this/these film(s) with this resident Normal [facility] Comment on above: Order Comment: No: D o not add to previous draw CTA NECKon 04-28-2018 CTA NECK [facility] Department of Radiology [address] [place] [id number] Patient Name: KYLE POWELL : 1955 Sex: F Age: Race: White Pt. Location: OUTP Patient Status: I Ordered Date: 04/28/2018 4:50:00 PM Completed Date: 04/28/2018 05:48 PM Requesting Provider: XIMENA PURCELL Attending Provider: KARRIE CHANRDA Report Copy To: Signs & Symptoms: Stroke [...] findings. Electronically signed by:Leonides Velásquez. Transcribed by: [email or web address], User Resident: ANNY SCHAFER Electronically Signed by: LEONIDES VELÁSQUEZ @ 04/29/2018 09:17 AM I personally read this/these film(s) with this resident Normal [facility] MAGNESIUM BLOODon 04-28-2018 Magnesium mass conc 1.7 mg/dL Low 1.9-2.7 [facility] [facility] Comment on above: Order Comment: No: D o not add to previous draw Performed By: #### 4 1000, [id number], 49703, 89922 #### [facility] [address] [place] [address], [facility] PHOSPHORUS BLOODon 8 Phosphate mass conc 4.4 mg/dL Normal 2.5-5.0 [facility] Comment on above: Order Comment: No: D o not add to previous draw Performed By: #### 4 1000, 98331, 44709, [id number] #### [facility] [address] [place] [address], [facility] POC GLUCOSE LABon 04-28-2018 Glucose mass conc 325 mg/dL High 70-100 [facility] Comment on above: Performed By: #### 8 [id number] #### [facility] [address] [place] [address], [facility] PROTHROMBIN TIMEon 8 INR Coag RelTime (PPP) 1.03 {INR} Normal 0.91-1.16 [facility] Comment on above: Order Comment: No: D [...] CHEST 1995;108:[id number]-[id number]. Performed By: #### 5 7307, [id number] #### [facility] [address] [facility]. [address] Prothrombin time (PT) Coag time (PPP) 13.5 s Normal 12.3-14.8 [facility] Comment on above: Order Comment: No: D o not add to previous draw Result Comment: ALL RESULTS MUST BE INTERPRETED WITH RESPECT TO BLOOD DRAWING ARTIFACT OR DILUTION ERROR OF ANTICOAGULANT AT THE TIME OF SAMPLING. Performed By: #### 5 7307, [id number] #### [facility] [address] [facility]. [address] TROPONIN-Ion 04-28-2018 Troponin I.cardiac mass conc 0.03 ng/mL Normal 0.00-0.04 [facility] Comment on above: Result Comment: REFE RENCE RANGES: 0.00 - 0.04 ng/ml NORMAL 0.05 - 0.50 ng/ml INDETERMINATE > 0.50 ng/ml CONSISTENT WITH AN M.I. Performed By: #### 4 1000, 57373, 60931, 99301 #### [facility] [address] [facility]. [address] CNOVon 10-26-2017 CNOV Office Visit (GASTBD) COOKIE POWELL ([id number]) 1955 [facility] Time Provider Department10/26/17 8:20 AM CARLOS EDUARDO VAN During your visit today, we recorded the following information about you: Temperature Pulse Respiration Blood pressure 97.7 degrees 59/minute 16/minute 136/71 Weight Height 110.7 kg 1.6 Liv Bailey LEDY 10/26/2017 7:[facility]NLAB HOURS: Lab is open [...] at least one day prior to the scheduledexam.[facility] RADIOLOGY: Room 101-SRadiology hours of operation :Sunday - : 8am-8pmFriday: 8am-5patday: 8am-12pmEXPRESS CARE WALK-IN CLINIC HOURS: Room 100-SHOURS OF OPERATIONS Sunday and Sunday 8:00am to 4:00pm, Sunday through Sunday6:00am to 9:00pm. Express care is for patients 14 years and older.Express CareLOCATIONS, HOURS OF OPERATION and CURRENT WAIT TIMES,visit the following link for details.[email or web address] R[types][0]=Express%20Car e%20ClinicsAND-amp;Reason s for visits limited to:? Cold and Flu symptoms? Conjunctivitis ([facility])? Ear and throat infections? Minor bumps and cuts? Seasonal allergies? Simple sprains and strains? Skin rashes? Sinus infections? Urinary tract infections (Patients must be at least 5 years old)? Upper respiratory infections.To schedule a Specialty appointment or schedule a test, please [phone], and the cantilever crane operator will will assist you.Sheri Gregory Calvinlaura LEDY 10/26/2017 8:02 AM SignedNAME: Kyle Borja: 62 [...] and Past Histories independentlygathered by the clinical direct support staff and the remaining scribed noteaccurately describes my [...] dysphagiaHistory coronary artery disease status post multiple WV's with history ofcoronary artery stent placementInsulin-dependen t diabetes mellitusPLAN:Patient is now eat low residue dietVirtual visit in 3 weeks-Will scheduleThe majority of the visit was spent counseling and/or coordinating care for thepatient. Fxdb-vh-mjor time was 60 minutes.STAFF PHYSICIANDaSita White Provider: SELF [200]Allergies As of Date: 10/26/2017(No Known Allergies)Date Reviewed: 10/26/2017Reviewed by: Sheri Bailey LPN - Fully AssessedReason for Visit: Consult [502]Primary Visit Diagnosis:Diarrhea, unspecified type [R19.7] Other Visit Diagnoses:IDDM (insulin dependent diabetes mellitus) ([facility]) [E11.9, Z79.4] CAD in [place] artery [I25.10]Prescriptions as of 10/26/2017 Sig: DIPHENOXYLATE-ATROPINE [...] Date: 10/26/2017(None) Other instructions from your clinician: [facility] LAB FACTS: Room 14N LAB HOURS: Lab is open 7:30am - [...] one day prior to the scheduled exam. [facility] RADIOLOGY: Room 101-S Radiology hours of operation : Sunday - : 8am-8pm Sunday: 8am-5pm Sunday: 8am-12pm [facility] HOURS: Room 100-S HOURS OF OPERATIONS Sunday and Sunday 8:00am to 4:00pm, Sunday through Sunday 6:00am to 9:00pm. Express care is for patients 14 years and older. Express Care LOCATIONS, HOURS OF OPERATION and CURRENT WAIT TIMES, visit the following link for details. [email or web address][types] [0]=Express%20Care%20Clin icsAND Reasons for visits limited to: ? Cold and Flu symptoms ? Conjunctivitis ([facility]) ? Ear and throat infections ? Minor bumps and cuts ? Seasonal allergies ? Simple sprains and strains ? Skin rashes ? Sinus infections ? Urinary tract infections (Patients must be at least 5 years old) ? Upper respiratory infections. To schedule a Specialty appointment or schedule a test, please call [phone], and the cantilever crane operator will will assist you. Status:Closed by CARLOS EDUARDO VAN MD on 10/26/17 Normal [facility] PROGRESSon 10-26-2017 PROGRESS HNO ID: [id number] thor: Sheri Bailey LPNService: (none)Author Type: (none)Type: [...] and Past Histories independentlygathered by the clinical direct support staff and the remaining scribed noteaccurately describes my [...] dysphagiaHistory coronary artery disease status post multiple WV's with history ofcoronary artery stent placementInsulin-dependen t diabetes mellitusPLAN:Patient is now eat low residue dietVirtual visit in 3 weeks-Will scheduleThe majority of the visit was spent counseling and/or coordinating carefor the patient. Umli-kl-vzcj time was 60 minutes.STAFF PHYSICIANCarlos Eduardo Van MD [facility] Vital Signs Date Time Vital Sign Value Performing Clinician Facility 11-06-2023 14:09-0500 Body height 157.5 cm Jerson [employer] Phone: [facility] [employer] 11-06-2023 14:09-0500 Body mass index (BMI) [Ratio] 39.87 kg/m2 Jerson [employer] Phone: [facility] [employer] 11-06-2023 14:09-0500 Body weight 98.88 kg Jerson [employer] Phone: [facility] [employer] 12-02-2022 13:40-0500 Body height 160.02 cm Yoana Kabamond Other [employer] Other 12-02-2022 13:40-0500 Body mass index (BMI) [Ratio] 39.85 kg/m2 Yoana Viki Other [employer] Other 12-02-2022 13:40-0500 Body temperature 98.4 [degF] Yoana Viki Other [employer] Other 12-02-2022 13:40-0500 Body weight 102.06 kg Yoana Viki Other [employer] Other 12-02-2022 13:40-0500 Diastolic blood pressure 98 mm[Hg] Yoana Drew Other [employer] Other 12-02-2022 13:40-0500 Respiratory rate 18 /min Yoana Drew Other [employer] Other 12-02-2022 13:40-0500 SaO2% (BldA) [Mass fraction] 97 % Yoana Drew Other [employer] Other 12-02-2022 13:40-0500 Systolic blood pressure 160 mm[Hg] Yoana Drew Other [employer] Other 03-22-2022 09:34-0400 Body temperature 97.8 [degF] II Faraz Osman Work Phone: [facility] 03-22-2022 09:34-0400 Body weight 100.69 kg II Faraz Osman Work Phone: [facility] 03-22-2022 09:34-0400 Diastolic blood pressure 78 mm[Hg] II Faraz Osman Work Phone: [facility] 03-22-2022 09:34-0400 Heart rate 78 /min II Faraz Osman Work Phone: [facility] 03-22-2022 09:34-0400 Respiratory rate 18 /min II Faraz Osman Work Phone: [facility] 03-22-2022 09:34-0400 SaO2% (BldA) [Mass fraction] 98 % II Faraz Osman Work Phone: [facility] 03-22-2022 09:34-0400 Systolic blood pressure 169 mm[Hg] II Faraz Osman Work Phone: [facility] 02-20-2022 11:52-0400 Body temperature 98.2 [degF] II Faraz Osman Work Phone: [facility] 02-20-2022 11:52-0400 Body weight 101.2 kg II Faraz Osman Work Phone: [facility] 02-20-2022 11:52-0400 Diastolic blood pressure 60 mm[Hg] II Faraz Osman Work Phone: [facility] 02-20-2022 11:52-0400 Heart rate 77 /min II Faraz Osman Work Phone: [facility] 02-20-2022 11:52-0400 Respiratory rate 18 /min II Faraz Osman Work Phone: [facility] 02-20-2022 11:52-0400 SaO2% (BldA) [Mass fraction] 97 % II Faraz Osman Work Phone: [facility] 02-20-2022 11:52-0400 Systolic blood pressure 177 mm[Hg] II Faraz Osman Work Phone: [facility] 01-18-2022 13:43-0400 Body temperature 98.8 [degF] II Faraz Osman Work Phone: [facility] 01-18-2022 13:43-0400 Body weight 102 kg II Faraz Osman Work Phone: [facility] 01-18-2022 13:43-0400 Diastolic blood pressure 72 mm[Hg] II Faraz Osman Work Phone: [facility] 01-18-2022 13:43-0400 Heart rate 80 /min II Faraz Osman Work Phone: [facility] 01-18-2022 13:43-0400 Respiratory rate 22 /min II Faraz Osman Work Phone: [facility] 01-18-2022 13:43-0400 SaO2% (BldA) [Mass fraction] 98 % II Faraz Osman Work Phone: [facility] 01-18-2022 13:43-0400 Systolic blood pressure 169 mm[Hg] II Faraz Osman Work Phone: [facility] 01-12-2022 13:02-0400 Body temperature 98 [degF] II Faraz Osman Work Phone: [facility] 01-12-2022 13:02-0400 Body weight 101.15 kg II Faraz Osman Work Phone: [facility] 01-12-2022 13:02-0400 Diastolic blood pressure 82 mm[Hg] II Faraz Osman Work Phone: [facility] 01-12-2022 13:02-0400 Heart rate 72 /min II Faraz Osman Work Phone: [facility] 01-12-2022 13:02-0400 Systolic blood pressure 177 mm[Hg] II Faraz Osman Work Phone: [facility] 12-20-2021 12:20-0400 Diastolic blood pressure 50 mm[Hg] II Faraz Osman Work Phone: [facility] 12-20-2021 12:20-0400 Heart rate 62 /min II Faraz Osman Work Phone: [facility] 12-20-2021 12:20-0400 Respiratory rate 16 /min II Faraz Osman Work Phone: [facility] 12-20-2021 12:20-0400 SaO2% (BldA) [Mass fraction] 99 % II Faraz Osman Work Phone: [facility] 12-20-2021 12:20-0400 Systolic blood pressure 140 mm[Hg] II Faraz Osman Work Phone: [facility] 12-20-2021 09:24-0400 Body height 160.02 cm II Faraz Osman Work Phone: [facility] 12-20-2021 09:24-0400 Body mass index (BMI) [Ratio] 40.9 kg/m2 II Faraz Osman Work Phone: [facility] 12-20-2021 09:24-0400 Body weight 104.77 kg II Faraz Osman Work Phone: [facility] 12-20-2021 06:25-0400 Body temperature 98.6 [degF] II Faraz Osman Work Phone: [facility] 11-25-2021 11:42-0500 Body weight 102.96 kg II Faraz Osman Work Phone: [facility] 11-25-2021 11:42-0500 Diastolic blood pressure 101 mm[Hg] II Faraz Osman Work Phone: [facility] 11-25-2021 11:42-0500 Heart rate 84 /min II Faraz Osman Work Phone: [facility] 11-25-2021 11:42-0500 Respiratory rate 16 /min II Faraz Osman Work Phone: [facility] 11-25-2021 11:42-0500 SaO2% (BldA) [Mass fraction] 96 % II Faraz Osman Work Phone: [facility] 11-25-2021 11:42-0500 Systolic blood pressure 188 mm[Hg] II Faraz Osman Work Phone: [facility] 11-25-2021 11:10-0500 Body height 158.75 cm II Faraz Osman Work Phone: [facility] Encounters Encounter Date Encounter Type Care Provider Facility Start: 02-04-2024 End: 02-04-2024 ambulatory FARAZ B OSMAN Not Available Start: 12-31-2023 End: 12-31-2023 ambulatory FARAZ B OSMAN Not Available Start: 12-18-2023 End: 12-18-2023 ambulatory JERSON ANTON Not Available Start: 12-12-2023 End: 12-13-2023 ambulatory ROSEANN VICENTE Not Available Start: 12-04-2023 End: 12-04-2023 ambulatory ROSEANN VICENTE Not Available Start: 11-23-2023 End: 11-24-2023 ambulatory ROSEANN VICENTE Not Available Start: 11-20-2023 End: 11-20-2023 ambulatory ROSEANN VICENTE Not Available Start: 11-19-2023 End: 11-19-2023 ambulatory [facility] Start: 11-13-2023 End: 11-13-2023 ambulatory RSOEANN VICENTE Not Available Start: 11-13-2023 End: 11-13-2023 [...] Dx) Start: 11-06-2023 ambulatory FARAZ OSMAN Facility :[facility] Start: 11-05-2023 Chart abstracting Jerson yarbrough DO Work Phone: [facility] Start: 10-03-2023 End: 10-03-2023 ambulatory FARAZ OSMAN Not Available Start: 09-25-2023 End: 09-25-2023 ambulatory JERSON ANTON Not Available Start: 09-12-2023 End: 09-12-2023 ambulatory FARAZ OSMAN Not Available Start: 08-13-2023 End: 08-13-2023 ambulatory FARAZ OSMAN Not Available Start: 06-20-2023 End: 06-20-2023 ambulatory GARRETT [facility] Start: 02-14-2023 End: 02-14-[address] FARAZ OSMAN Facility:[facility] Start: 01-04-2023 End: 01-05-[address] FARAZ OSMAN Facility:[facility] Start: 12-02-2022 End: 12-02-2022 ambulatory Yoana Drew Other [employer] Other Start: 12-02-2022 Office outpatient vi sit 15 minutes Yoana Drew [facility] [place] Start: 11-06-2022 End: 11-07-[address] GARRETT MCDONALD Facility:[facility] Start: 07-25-2022 End: 07-26-[address] FARAZ OSMAN Facility:[facility] Start: 06-13-2022 End: 06-14-[address] FARAZ OSMAN Facility:[facility] Start: 05-29-2022 End: 05-29-2022 ambulatory KAROLINE ARANAEY . Facility:[facility] Start: 05-15-2022 End: 10-11-2022 Recurring FARAZ OSMAN [facility] Start: 03-22-2022 End: 03-22-2022 ambulatory Faraz Osman Facility:[facility] Start: 03-22-2022 End: 03-22-2022 Registered Recurring II Faraz Osman [facility] Start: 03-07-2022 End: 03-08-[address] FARAZ OSMAN Facility:[facility] Start: 02-20-2022 End: 02-20-2022 Registered Recurring II Faraz Osman [facility] Start: 02-14-2022 End: 02-14-2022 Registered Recurring II Faraz Osman [facility] Start: 01-18-2022 End: 01-18-2022 Registered Recurring II Faraz Osman [facility] Start: 01-12-2022 End: 01-12-2022 Registered Recurring II Faraz Osman [facility] Start: 12-20-2021 End: 12-20-2021 Admission to same day surgery center II Faraz Osman [facility] [place] Start: 12-16-2021 End: 12-16-2021 Patient encounter procedure II Faraz Osman Work Phone: [facility] Start: 12-06-2021 End: 12-06-2021 Patient encounter procedure II Faraz Osman Work Phone: [facility] Start: 11-25-2021 Registered Recurring II Faraz Osman Work Phone[facility] Start: 11-14-2018 End: 11-18-2018 Evaluation and management of inpatient FARAZ OSMAN Facility:[facility] Start: 09-05-2018 End: 09-07-2018 Evaluation and management of inpatient JONAH SANABRIA Facility:[facility] Start: 04-28-2018 End: 05-03-2018 Evaluation and management of inpatient WILMAR MORRIS Facility:[facility] Start: 10-26-2017 End: 10-26-2017 Amb[facility] Procedures Date Procedure Procedure Detail Performing Clinician [...] of lesion of left breast II Faraz Dawson Work Phone: Start: 07-07-2020 Colonoscopy Jerson yarbrough DO Work Phone: Start: 11-15-2018 EXCISION OF STOMACH, ENDO, DIAGN DOV OSCAR Start: 09-06-2018 DILATION OF CORONARY ARTERY, ONE ARTERY, PERC [facility]PROACH [facility] Elisabeth BRITTH Start: 09-06-2018 FLUOROSCOPY OF MULT COR ART USING L OSM CONTRAST [facility] Elisabeth CORMIER Start: 09-06-2018 MEASURE OF CARDIAC S AMPL \T\ PRESSURE, L HEART, PERC APPROACH [facility] Elisabeth RABAGOCORMIER Start: 04-29-2018 INTRODUCE OF OTH THE RAP SUBST INTO RESP TRACT, VIA OPENING RIVERA R CHERELLE Plan of Treatment Date Care Activity Detail Author Start: 07-07-2030 Screening for malign ant neoplasm of colon [facility] Start: 04-26-2024 Glaucoma screening Diabetes: R etinopathy Screening [facility] Start: 12-31-2023 End: 12-31-2023 Patient encounter procedure 12/31/2023 1:30 PM EDT Office Visit [facility] [address] [facility] [address] [place] [address] Faraz Osman MD [address] [facility] [address] [place] [address] [facility] Start: 12-18-2023 End: 12-18-2023 Patient encounter procedure 12/18/2023 2:45 PM EDT Office Visit [facility] [address] [place] [id number] Jerson Anton DO [address] [place], [place] [id number] [facility] Start: 12-15-2023 Medicare Annual Wellness (AWV) Medicare Annual Wellness (AWV) [facility] Start: 12-15-2023 Urine screening for protein Diabetes: Urine Protein Screening [facility] Start: 11-23-2023 End: 11-23-2023 ambulatory 11/23/2023 2:30 PM EST Treatment [facility] [address] [place] [address] Roseann Vicente, OT [address] [place] [address] [facility] Start: 11-20-2023 End: 11-20-2023 ambulatory 11/20/2023 2:30 PM EST Treatment [facility] [address] [place] [address] Rosaenn Vicente, OT [address] [place] [address] [facility] Start: 11-13-2023 End: 11-13-2023 ambulatory [facility] Comment on above: Carpal tunnel syndro me, bilateral (Primary Dx) Start: 11-13-2023 Hemoglobin A1c measurement Diabetes: Hemoglobin A1C [facility] Start: 11-09-2023 End: 11-09-2023 ambulatory 11/09/2023 1:30 PM EST Evaluation [facility] [address] [place] [address] Roseann Vicente, OT [address] [place] [address] [facility] Start: 11-06-2023 End: 11-06-2023 Patient encounter procedure 11/06/2023 2:00 PM EST Office Visit [facility] [address] [place] [id number] Jerson Anton DO [address] [place] [address] [facility] Start: 04-20-2020 Pneumococcal Vaccine : 65+ Years (2 - PCV) Pneumococcal Vaccine: 65+ Years (2 - PCV) [facility] Start: 04-20-2020 Pneumococcal Vaccine : 65+ Years (2 of 2 - PCV) Pneumococcal Vaccine: 65+ Years (2 of 2 - PCV) [facility] Start: 1955 Screening for malign ant neoplasm of colon [facility] Patient referral [facility] Work Phone: Immunizations Immunization Date Immunization Notes Care Provider Cate jeffrymatt 07-09-2023 Influenza, High-dose Seasonal, Quadrivalent, Preservative Free Jerson Brown DO Work Phone: [facility] 07-05-2022 Influenza, High-dose Seasonal, Quadrivalent, Preservative Free Jerson Brown DO Work Phone: [facility] 08-01-2021 influenza, high dose seasonal, preservative-free Jerson Brown DO Work Phone: [facility] 12-13-2020 COVID-19 mRNA, Comir kristal (Pfizer) II Faraz Osman Work Phone: [facility] 11-22-2020 COVID-19 mRNA, Comir kristal (Pfizer) II Faraz Osman Work Phone: [facility] 07-27-2020 influenza, injectabl e, quadrivalent, preservative free Jerson Quoc DO Work Phone: [facility] 07-27-2020 zoster vaccine recombinant Jerson Anton DO Work Phone: [facility] 07-14-2019 influenza, seasonal, injectable Jerson Anton DO Work Phone: [facility] 07-02-2019 influenza, injectabl e, quadrivalent, preservative free Jerson Anton DO Work Phone: [facility] 04-20-2019 pneumococcal polysaccharide vaccine, 23 valent Jerson Anton DO Work Phone: [facility] 07-29-2018 Influenza, High-dose Seasonal, Quadrivalent, Preservative Free Jerson Brown DO Work Phone: [facility] 07-29-2018 seasonal influenza, intradermal, preservative free Jerson Anton DO Work Phone: [facility] 08-06-2017 influenza, injectabl e, quadrivalent, preservative free Jerson Brown DO Work Phone: [facility] 06-04-2017 seasonal influenza, intradermal, preservative free Jerson Anton DO Work Phone: [facility] 06-14-2015 zoster vaccine, live Jerson medley DO Work Phone: [facility] Payers Date Payer Category Payer Medicare [id number] 2022 Medicare [employer]ICARE UHC DUAL COMPLETE [id number] 2022-Present [address] [place] [address] [id number] 2021 Self-pay [id number] 2019 Medicaid MEDICAID [facility] [id number] 2019-Present [phone] [address] [place] [address] Medicaid [id number] 2017 Private Health Insurance [id number] 1959 Medicaid [id number] 1955 Unknown [id number] 2.16.840.1.323894.3.579.2. 647 1955 Unknown [id number] 2.16.840.1.235965.3.579.2. 647 1955 Unknown [id number] 2.16.840.1.426456.3.579.2. 647 1955 Unknown [id number] 2.16.840.1.044151.3.579.2. 593 1955 Unknown [id number] 2.16.840.1.213352.3.579.2. 593 1955 Unknown [id number] 2.16.840.1.952941.3.579.2. 593 1955 Unknown [id number] 2.16.840.1.929719.3.579.2. 593 1955 Unknown [id number] 2.16.840.1.285444.3.579.2. 593 1955 Unknown [id number] 2.16.840.1.606062.3.579.2. 593 1955 Unknown [id number] 2.16.840.1.475627.3.579.2. 593 1955 Unknown [id number] 2.16.840.1.191838.3.579.2. 727 1955 Unknown [id number] 2.16.840.1.083339.3.579.2. 1259 1955 Unknown [id number] 2.16.840.1.339011.3.579.2. 1259 1955 Unknown [id number] 2.16.840.1.128851.3.579.2. 1259 1955 Unknown [id number] 2.16.840.1.609851.3.579.2. 1259 1955 Unknown [id number] 2.16.840.1.750107.3.579.2. 1259 1955 Unknown [id number] 2.16.840.1.471412.3.579.2. 1259 1955 Unknown [id number] 2.16.840.1.570736.3.579.2. 1259 1955 Unknown [id number] 2.16.840.1.417845.3.579.2. 1259 1955 Unknown [id number] 2.16.840.1.432290.3.579.2. 1259 1955 Unknown [id number] 2.16.840.1.601806.3.579.2. 1259 1955 Unknown [id number] 2.16.840.1.247337.3.579.2. 1259 1955 Unknown [id number] 2.16.840.1.524647.3.579.2. 1259 1955 Unknown [id number] 2.16.840.1.966450.3.579.2. 1259 1955 Unknown [id number] 2.16.840.1.046940.3.579.2. 1259 Medicaid [id number] Medicare [id number] 2.16.840.1.566203.19 Unknown [id number] 2.16.840.1.341194.3.579.2. 531 Social History Date Type Detail Facility Start: 12-20-2021 End: 02-20-2023 Tobacco smoking status [facility] Never smoked tobacco (finding) [facility] Start: 1955 Sex Assigned At Female [facility] Tobacco smoking status No Smokin g Status Entered [facility] Start: 07-31-2023 End: 11-06-2023 Sex Assigned At Female [facility] Start: 02-20-2023 Tobacco use and exposure Smokeless [...] medical appointments or from getting medications? No [facility] Start: 02-16-2023 Education 13 [facility] Start: 02-16-2023 Alcohol Comment Caffeine Intake: soda/pop [facility] Start: 1955 Sex Assigned At Not on file [facility] Medical Equipment Procedure Code Equipment Code Equipment Origin al Text Equipment Identifier Dates USE DIRECTED TWICE A DAY [id number] Start: 09-14-2022 1 strip by In Vi tro route in the morning. [id number] Start: 06-29-2023 1 Lancet in the morning. [id number] Start: 06-29-2023 Goals Date Patient Goal Desired Activity /State Clinical Notes 11-25-2021 to 11-19-2023 Roseann Vicente, OT - 11/13/2023 2:30 PM Shan Vicente, OT - 11/09/2023 1:30 PM Galilea Amaro - 11/06/2023 2:00 PM EST Note Date & Type Note Facility 11-19-2023 Note [facility] Cardiology Clinic Note Chief Complaint: Patient [...] Equivocal Lexiscan stress test Patient Name: [facility] MR #: [id number] Physician: Jennifer Cormier, Department of M.D. Medicine Service Date: 09/06/2018 Division of Birthdate: 1955 Cardiology Room #: [id number] Adult Cardiovascular Services [address] [place] [address] Cardiovascular Laboratory Report FINAL IMPRESSION: 1. Hemodynamically significant lesion in the previously placed stents with an FFR of 0.76. 2. Plain balloon angioplasty of the in-stent restenosis within the previously placed stents in the LAD and post POBA FFR of 0.92. 3. Hemodynamically insignificant lesion in the ci (more content not included)... [facility] 11-13-2023 History of Present illness Narrative Occupational Therapy Occupational Therapy Treatment Visit Patient Name: Kyle Powell Today's Date: 11/15/2023 Linked Episodes Type: Episode: Status: Noted: Resolved: Last update: Updated by: Occupational Therapy B CTR Active 11/07/2023 11/09/2023 3:16 PM Roseann Vicente OT Comments:Episode created from referral [id number] Visit number: 11/12 Supervised time:60 Total time:60 Subjective Pain: 01/08. Pt reports It is a little sore [...] for AROM x5, and yellow t-putty exercises pinch/pull/percher and red therabar exercises in supination/pronation 1x20 for wrist/ percher strengthening. Red digiflex for percher. Median nerve glides complete 1x5x10. Continue to [...] tasks at discharge. documented in this encounter [facility] 11-09-2023 History of Present illness Narrative Occupational Therapy Occupational Therapy Evaluation Visit Patient Name: Kyle Powell Today's Date: 11/09/2023 Linked Episodes Type: Episode: Status: Noted: Resolved: Last update: Updated by: Occupational Therapy B CTR Active 11/07/2023 11/09/2023 2:59 PM Roseann Vicente OT Comments:Episode created from referral [id number] Visit number: 10/12 Subjective Interim History: 68 [...] are normal. General General additional comments: R percher strength: 20# LP: 5# L percher strength: 20# LP: 6# Treatment: Education: HEP [...] median nerve distribution complete. HEP established for percher strengthening/ forearm stretches. Written handout provided. Pt and spouse in agreement to POC. Assessment/Plan Short Term Goals: Pt will be independent with home exercise program for percher strengthening at discharge. Mcfp Goals: PRWHE Pain Score 25< 50 ( IE: 47/50) PRWHE Functional Score 20 < 100 ( IE: 78/100) Pt to increase percher strength by 10# and LP by 2# pain free at discharge. ( IE: B 20# LP: R 5# L6#) Pt will be able to use B UE in light daily activities. Pt will benefit from skilled OT to address the above impairments for 2x/week for 4-6 weeks. I hereby deem this POC medically necessary. Please sign below. Date: documented in this encounter [facility] 11-06-2023 History of Present illness [...] not apply, Every 14 days Droplet Pen [place] 31G X 6 MM [facility] USE DIRECTED TWICE A DAY gabapentin (NEURONTIN) [...] Place 1 tablet by sublingual route. Nyamyc [id number] UNIT/GM powder Nyamyc 100,000 unit/gram topical powder [...] BREAST LUMPECTOMY 12/20/2021 Lt. lumpectomy w/sln bx 0 SLN CARDIAC CATHETERIZATION 02/02/2017 HEART CATH WITH [...] will start her in occupational therapy at [facility] in [place]. Prescription for Gabapentin was provided to take [...] Jerson Anton D.O. documented in this encounter [facility] 07-30-2023 Note Hi Zeeshan Boles is scheduled for carpal tunnel release on 08/27 and 09/10. Facility is calling requesting aspirin and plavix to be held prior to the procedure. Please advise how long the patient should hold these medications. Thank you [facility] 06-20-2023 Note [facility] Cardiology Clinic Note Chief Complaint: Patient here for follow up [facility] ED for chest pain. She has taken [...] has a past medical history of Cancer ([facility]), Coronary artery disease, Diabetes mellitus (CMS/HCC), Gastrointestinal [...] Equivocal Lexiscan stress test Patient Name: [facility] MR #: [id number] Physician: Jennifer Cormier, Department of M.D. Medicine Service Date: 09/06/2018 Division of Birthdate: 1955 Cardiology Room #: [id number] Adult Cardiovascular Services [address] [place] [address] Cardiovascular Laboratory Report FINAL IMPRESSION: 1. Hemodynamically [...] artery. INDICATION: Cookie (more content not included)... [facility] 12-02-2022 Evaluation note Encounter Date Diagnosis Assessment [...] to nail, initial encounter (ICD-10 - S61.258A) [facility] Other 02-06-2023 NoteCARDIAC STRESS TEST Requesting Physician: Procedure Date:11/06/2022 This was a Lexiscan Stress Test with myocardial perfusion imaging performed at the [facility]. Informed consent was obtained, an intravenous [...] perfusion images will be reported separately. [id number] Progress note Author Ariel Monte [facility] March 22, 2022 10:19am Note Date/Time March 21, 2022 1:20 pm [place] [address] Rad Onc Follow Up Note - OP Signed Patient: Kyle Powell MR#: [id number] : 1955 Acct:[id number] Age/Sex: 66 / F Type: REG RCR Copies to: MD Faraz Hartman II, MD Fredric Itzkowitz, DO~ Assessment & Plan (1) Carcinoma of upper-outer quadrant of left breast in female, estrogen receptor positive Plan: RTC PRN Assessment Ms. 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 [...] history: October 13, 2021 screening mammogram at [facility] showed no abnormalities of the right breast but the left breast was concerning for a 1.2 spiculated nodule in the left upper outer quadrant. Spot compression mammogram and ultrasound confirmed an irregular hypoechoic mass in the 2 o'clock position measuring 8 mm in size. November 08, 2021 ultrasound-guided breast biopsy confirmed invasive ductal carcinoma, provisional grade 2 3, ER/IA positive HER2 equivocal by IHC, negativeby FISH. [...] signed by Ariel Monte MD> 03/22/22 1019 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 Garrett Mcdonald. Clinically, she is [...] discussed results of her pathology showing T1b [id number] I breast cancer. Since she has less [...] was sent for screening mammogram 10/13/2021 at [facility] showing no abnormalities of the right breast, but left breast showed a new 1.2 x 0.9cm spiculated nodule of left upper outer quadrant mid-breast. Subsequent spot compression mammogram and ultrasound showed an irregular hypoechoic mass in 2 o'clock position 10.7cm from nipple, [id number]. Ultrasound guided biopsy performed at [place] 11/08/21 confirmed diagnosis of invasive ductal carcinoma, provisional grade 2-3, ER >95% positive, IA >95% positive, Her2 equivocal by IHC, negative [...] ductal carcinoma, provisional grade 2-3, ER >95%, IA >95%, Her2 neg --12/20/2021: Left breast lumpectomy with left axillary sentinel lymph node: Invasive ductal carcinoma, Willadr grade 2, tumor size 0.9 x 0.9 x 0.8 cm with margins negative. ER +95%, IA +95%, HER-2/diomedes negative IHC 1+, pT1b (sn)pN0 Mx 2. Right mastodynia x 1 month (no lesion right mammogram) 3. Coronary artery disease (multiple prior [place]) 4. Cerebral vascular disease (multiple prior strokes, [...] Negative for environmental allergies and food allergies. [facility] - Medical History Medical History: Medical History [...] carcinoma, Willard grade 2-3, ER >95% positive, IA >95% positive, Her2 1+ IHC, negative. (1) [...] carcinoma, provisional grade 2-3, ER >95% positive, IA >95% positive, Her2 equivocal by IHC, negative [...] to size less than 1 cm, strongly ER/IA positive, HER-2 negative disease, and her comorbidities. [...] PCP: Patient reports having seen cardiology at [facility] approximately 3 weeks ago with adjustments [...] for coordination of care (as documented) and [id number]-[id number]-[id number] counseling of patient and/or family. Dictated By: Lisa Orozco APRN DD/ 1410 Signed By: <Electronically signed by IVELISSE Orozco> 02/20/22 8[address] [facility] Work Phone: 1(180) 147-130604-20-2022 Consult note Author Ariel Monte [facility] January 18, 2022 4:10pm Note Date/Time January 18, 2022 1:5 9pm [facility] [place] [address] Rad Onc Consult Note - OP Signed Patient: Kyle Powell MR#: [id number] : 1955 Acct:[id number] Age/Sex: 66 / F Type: REG RCR [...] with IMPORT LOW planning technique) Assessment Ms. Powell is a 66-year-old female with newly diagnosed stage I pT1b N0 invasiveductal carcinoma of the upper outer quadrant of the left breast, ER/IA positive HER2 negative. We reviewed her pathology [...] history: October 13, 2021 screening mammogram at [facility] showed no abnormalities of the right breast but the left breast was concerning for a 1.2 spiculated nodule in the left upper outer quadrant. Spot compression mammogram and ultrasound confirmed an irregular hypoechoic mass in the 2 o'clock position measuring 8 mm in size. November 08, 2021 ultrasound-guided breast biopsy confirmed invasive ductal carcinoma, provisional grade 2 3, ER/IA positive HER2 equivocal by IHC, negativeby FISH. [...] No issues with mobility of the arm. [facility] - Medical History Medical History: Medical History [...] signed by Ariel Monte MD> 01/18/22 1610 [facility] Work Phone: 1(304) 332-216804-15-2022 Progress note Author Karoline Farmer [facility] January 13, 2022 1:05pm Note Date/Time January 12, 2022 1:0 9pm [facility] [place] [id number] Hem/Onc Follow Up Note - OP Signed Patient: Kyle Powell MR#: [id number] : 1955 Acct:[id number] Age/Sex: 66 / F Type: REG RCR Copies to: MD Jac Springer II, DO Ariel Monte MD~ Subjective Date/Time of Service: Date of [...] discussed results of her pathology showing T1b [id number] I breast cancer. Since she has less [...] was sent for screening mammogram 10/13/2021 at [facility] showing no abnormalities of the right breast, but left breast showed a new 1.2 x 0.9cm spiculated nodule of left upper outer quadrant mid-breast. Subsequent spot compression mammogram and ultrasound showed an irregular hypoechoic mass in 2 o'clock position 10.7cm from nipple, [id number]. Ultrasound guided biopsy performed at [place] 11/08/21 confirmed diagnosis of invasive ductal carcinoma, provisional grade 2-3, ER >95% positive, IA >95% positive, Her2 equivocal by IHC, negative [...] ductal carcinoma, provisional grade 2-3, ER >95%, IA >95%, Her2 neg --12/20/2021: Left breast lumpectomy with left axillary sentinel lymph node: Invasive ductal carcinoma, Willard grade 2, tumor size 0.9 x 0.9 x 0.8 cm with margins negative. ER +95%, IA +95%, HER-2/diomedes negative IHC 1+, pT1b (sn)pN0 Mx 2. Right mastodynia x 1 month (no lesion right mammogram) 3. Coronary artery disease (multiple prior [place]) 4. Cerebral vascular disease (multiple prior strokes, no residual deficits) 5. Prior history of shingles (VZV) and prior Shingrix vaccine - Summary of Therapies Summary of Therapies: 1. 12/20/2021: Left breast lumpectomy with left axillary sentinel lymph node 2. Met with radiation oncology for adjuvant radiation therapy discussion 3. Prescription to start aromatase inhibitor therapy with anastrozole 1 mg daily and follow-up with [facility]. This may commence following radiation therapy. ROS [...] Negative for environmental allergies and food allergies. [facility] - History Attestation statement: The following information [...] function - Impressions Screening mammogram 10/13/2021 at [facility] showing no abnormalities of the right breast, but left breast showed a new 1.2 x 0.9cm spiculated nodule of left upper outer quadrant mid-breast. Subsequent spot compression mammogram and ultrasound showed an irregular hypoechoic mass in 2 o'clock position 10.7cm from nipple, [id number]. Assessment and Plan - TNM Staging Staging: Prognostic stage Ia, pathologic stage I T1b, N0 Left breast invasive ductal carcinoma, Willard grade 2-3, ER >95% positive, IA >95% positive, Her2 1+ IHC, negative. (1) [...] carcinoma, provisional grade 2-3, ER >95% positive, IA >95% positive, Her2 equivocal by IHC, negative by FISH (HER/CEP17 1.4, copy number 3.33). This lesion is nonpalpable, less than 2 cm, and due to strong hormone positive, HER2 negative disease she is not a candidatefor neoadjuvant chemotherapy. She already has a surgical date in November [address] Hemphill--lumpectomy revealed T1b N0 MX Sterling grade 2 breast cancer with size 0.9 cm. 01/12/2022: She returns for followup to discuss pathology of resection specimen and adjuvant therapy options. We decided against Oncotype DX due to size less than 1 cm, strongly ER/IA positive, HER-2 negative disease, and her comorbidities. [...] for coordination of care (as documented) and [id number] counseling of patient and/or family. Dictated By: Karoline Farmer MD DD/ 1308 Signed By: <Electronically signed by MD Karoline Farmer> 01/13/22 1675 [facility] Work Phone: 1(200) 801-279404-15-2022 Progress note Author Karoline Farmer [facility] January 13, 2022 1:05pm Note Date/Time January 12, 2022 1:0 9pm [facility] at [address] [address] Hem/Onc Follow Up Note - OP Signed Patient: Kyle Powell MR#: [id number] : 1955 Acct:[id number] Age/Sex: 66 / F Type: REG RCR [...] discussed results of her pathology showing T1b [id number] I breast cancer. Since she has less [...] was sent for screening mammogram 10/13/2021 at [facility] showing no abnormalities of the right breast, but left breast showed a new 1.2 x 0.9cm spiculated nodule of left upper outer quadrant mid-breast. Subsequent spot compression mammogram and ultrasound showed an irregular hypoechoic mass in 2 o'clock position 10.7cm from nipple, [id number]. Ultrasound guided biopsy performed at [place] 11/08/21 confirmed diagnosis of invasive ductal carcinoma, provisional grade 2-3, ER >95% positive, IA >95% positive, Her2 equivocal by IHC, negative [...] ductal carcinoma, provisional grade 2-3, ER >95%, IA >95%, Her2 neg --12/20/2021: Left breast lumpectomy with left axillary sentinel lymph node: Invasive ductal carcinoma, Sterling grade 2, tumor size 0.9 x 0.9 x 0.8 cm with margins negative. ER +95%, IA +95%, HER-2/diomedes negative IHC 1+, pT1b (sn)pN0 Mx 2. Right mastodynia x 1 month (no lesion right mammogram) 3. Coronary artery disease (multiple prior [place]) 4. Cerebral vascular disease (multiple prior strokes, no residual deficits) 5. Prior history of shingles (VZV) and prior Shingrix vaccine - Summary of Therapies Summary of Therapies: 1. 12/20/2021: Left breast lumpectomy with left axillary sentinel lymph node 2. Met with radiation oncology for adjuvant radiation therapy discussion 3. Prescription to start aromatase inhibitor therapy with anastrozole 1 mg daily and follow-up with [facility]. This may commence following radiation therapy. ROS [...] Home Medications & Allergies Allergies [facility] Allergy (Verified 01/12/22 13:02) Hives Home Medications [...] function - Impressions Screening mammogram 10/13/2021 at [facility] showing no abnormalities of the right breast, but left breast showed a new 1.2 x 0.9cm spiculated nodule of left upper outer quadrant mid-breast. Subsequent spot compression mammogram and ultrasound showed an irregular hypoechoic mass in 2 o'clock position 10.7cm from nipple, [id number]. Assessment and Plan - TNM Staging Staging: Prognostic stage Ia, pathologic stage I T1b, N0 Left breast invasive ductal carcinoma, Sterling grade 2-3, ER >95% positive, IA >95% positive, Her2 1+ IHC, negative. (1) [...] carcinoma, provisional grade 2-3, ER >95% positive, IA >95% positive, Her2 equivocal by IHC, negative by FISH (HER/CEP17 1.4, copy number 3.33). This lesion is nonpalpable, less than 2 cm, and due to strong hormone positive, HER2 negative disease she is not a candidatefor neoadjuvant chemotherapy. She already has a surgical date in November [address] Hemphill--lumpectomy revealed T1b N0 MX Sterling grade 2 breast cancer with size 0.9 cm. 01/12/2022: She returns for followup to discuss pathology of resection specimen and adjuvant therapy options. We decided against Oncotype DX due to size less than 1 cm, strongly ER/IA positive, HER-2 negative disease, and her comorbidities. [...] for coordination of care (as documented) and zoaz-[id number]-akau counseling of patient and/or family. Dictated By: Karoline Farmer MD DD/ 1308 Signed By: <Electronically signed by MD Karoline Farmer> 01/13/22 1307 [facility] Work Phone: 1(368) [phone] Consult note Author Karoline Farmer [facility] November 25, 2021 8:58pm Note Date/Time November 25, 2021 11:32am [facility] [place] [address] Hem/Onc Consult Note - OP Signed Patient: Kyle Powell MR#: [id number] : 1955 Acct:[id number] Age/Sex: 66 / F Type: REG RCR Copies to: MD Jac Springer II, DO~ HPI Date/Time of Service: Date of Service: 11/25/2021 Time of Service: 11:31 Referring Provider/PCP: Referring Provider: Faraz Osman II, MD PCP: Faraz Osman II, MD - History of Present Illness Reason for Consultation: Patient was found to have abnormal screening mammography with biopsy at [facility] for invasive ductal carcinoma. Referred to both general surgery who she saw yesterday and me to discuss appropriate management. Tumor appears to be8 x 7 x 7 mm on ultrasound at the 2 o'clock position. ER positive, IA positive,HER-2 negative by FISH, provisional grade 2-3. [...] was sent for screening mammogram 10/13/2021 at [facility] showing no abnormalities of the right breast, butleft breast showed a new 1.2 x 0.9cm spiculated nodule of left upper outer quadrant mid-breast. Subsequent spot compression mammogram and ultrasound showed an irregular hypoechoic mass in 2 o'clock position 10.7cm from nipple, [id number]. Ultrasound guided biopsy performed at [place] 11/08/21 confirmed diagnosis of invasive ductal carcinoma, provisional grade 2-3, ER >95% positive,IA >95% positive, Her2 equivocal by IHC, negative [...] operative to review recommendations for adjuvant therapy. [facility] - History Attestation statement: The following information [...] ductal carcinoma, provisional grade 2-3, ER >95%, IA >95%, Her2 neg 2. Right mastodynia x 1 month (no lesion right mammogram) 3. Coronary artery disease (multiple prior [place]) 4. Cerebral vascular disease (multiple prior strokes, [...] review. - Impressions Screening mammogram 10/13/2021 at [facility] showing no abnormalities of the right breast, but left breast showed a new 1.2 x 0.9cm spiculated nodule of left upper outer quadrant mid-breast. Subsequent spot compression mammogram and ultrasound showed an irregular hypoechoic mass in 2 o'clock position 10.7cm from nipple, [id number]. Assessment and Plan - TNM Staging Staging: Clinical stage I T1c, N0 Left breast invasive ductal carcinoma, provisional grade 2-3, ER >95% positive, IA >95% positive, Her2 equivocal by IHC, negative [...] carcinoma, provisional grade 2-3, ER >95% positive, IA >95% positive, Her2 equivocal by IHC, negative [...] for coordination of care (as documented) and qekj-ww-orgc counseling of patient and/or family. Dictated By: Karoline Farmer MD DD/ 1131 Signed By: <Electronically signed by MD Karoline Farmer> 11/25/212057 [facility] Work Phone: Evaluation + Plan note No data available for this section [facility] Diagnosis Onset Date Resolution Status [id number] acute Mastodynia of right breast a cute Coronary artery disease lunchroom monitor génesis History of stroke chronic Hypertension chronic [facility] Work Phone: Evaluation note* Diagnosis Onset Date Resolution Status [id number] acute Encounter for monitoring aromatase inhibitor therapy acute Coronary artery disease lunchroom monitor génesis History of stroke chronic Hypertension chronic Mastodynia of right breast r esolved [facility] Work Phone: Evaluation noteNo assessment information available [facility] Work Phone: Evaluation note* Diagnosis Bilateral carpal tunnel syndrome- Primary [...] coccyx removal Surgical History tonsillectomy Surgical History [facility] Other Hospital Discharge instructions No data available for this section [facility] No data available for this section [facility] (narrative)* Consultation (Routine) - Authorized Specialty Diagnoses / Procedures Referred By Contac t Referred To Contact Occupational Therapy / Physical Therapy Diagnoses Bilateral carpal tunnel syndrome Procedures IA OFFICE/OUTPATIENT NEW HIGH MDM 60 MINUTES Jerson Anton, [address] [place] [address] Roseann Vicente, OT [address] [place] [address] Referral ID Status Reason Start Date Expiration Date Visits Requested Visits Authorized [id number] Authorized Consult and Treat 11/06/2023 05/04/2024 1 1 [facility] for visit Narrative* Consultation (Routine) - Authorized Specialty Diagnoses / Procedures Referred By Contac t Referred To Contact Occupational Therapy / Physical Therapy Diagnoses Bilateral carpal tunnel syndrome Procedures IA OFFICE/OUTPATIENT NEW HIGH MDM 60 MINUTES Jerson Anton, [address] [place] [address] Roseann Vicente, OT [address] [place] [address] Referral ID Status Reason Start Date Expiration Date Visits Requested Visits Authorized [id number] Authorized Consult and Treat 11/06/2023 05/04/[address] [facility] Healthcare Summary Purpose Family History No [...] November 3:51pm Hospital Course Note MR#: [id number] [facility] Pt. Name: Kyle Powell Admitted: 04/28/2018 Discharged: [...] This is a 62-year-old female, admitted to [facility], who was transferred from [place] with hypertension emergency/urgency. She was complaining of dizziness and tongue numbness on presentation. CT scan of brain revealed hypoattenuation, bilateral basal ganglia and right thalamus. Stroke team was consulted. No tPA was given. MR (more content not included)... Note MR#: [id number] I [facility] Pt. Name: Kyle Powell Admitted: 09/05/2018 Discharged: 09/07/2018 Date of : 1955 Physician: Jonah Sanabria MD DISCHARGE SUMMARY PRINCIPAL DIAGNOSES: 1. Coronary artery disease of [place] artery [place] heart with stable angina. 2. Essential hypertension. [...] procedure and decided to transfer here to [facility] for cardiac cath. She had a cardiac cath here. In 01/2017, she had severe ostial stenosis of the posterior descending branch of the right coronary artery and had a balloon angioplasty with a Synergy drug-eluting stent. She has been doing well since (more content not included)... Note MR#: [id number] [facility] Pt. Name: Kyle Powell Admitted: [...] evalua (more content not included)... Note MR#: [id number] [facility] Pt. Name: Kyle Powell Surgery Date: 11/15/2018 Room #: 3AB [id number] Date of : 1955 PROCEDURE NOTE ATTENDING: Dov Oscar M.D. PROCEDURE EGD with gastric biopsies. EMOTIONALLY IMPAIRED TEACHER: Inocencio Rivera M.D. INDICATION FOR PROCEDURE: A 63-year-old female patient with history of cardiac drug-eluting stent placement for coronary artery disease in 2017, on dual antiplatelet therapy with aspirin and [...] medication given. [facility]more content not included)... Procedure Findings Note MR#: [id number] [facility] Pt. Name: Kyle Powell Surgery Date: 11/15/2018 Room #: 3AB [id number] Date of : 1955 PROCEDURE NOTE ATTENDING: Dov Oscar M.D. PROCEDURE EGD with gastric biopsies. EMOTIONALLY IMPAIRED TEACHER: Inocencio Rivera M.D. INDICATION FOR PROCEDURE: A 63-year-old female patient with history of cardiac drug-eluting stent placement for coronary artery disease in 2017, on dual antiplatelet therapy with aspirin and [...] medication given. The patient was connected to [facility] (more content not included)... Chief Complaint and Reason for Visit Chief Complaint DCIS Left Breast Left Breast Cancer Left Breast Cancer Left Breast Cancer Reason for Visit [id number] Mastodynia of right breast Coronary artery disease History of stroke Hypertension Chief Complaint Left Breast Cancer Left Breast Cancer Left Breast Cancer DCIS Left Breast Reason for Visit [id number] Mastodynia of right breast Coronary artery disease History of stroke Hypertension Chief Complaint Left Breast Cancer Left Breast Cancer Left Breast Cancer DCIS Left Breast Reason for Visit [id number] Encounter for monitoring aromatase inhibitor therapy Coronary artery disease History of stroke Hypertension Mastodynia of right breast Chief Complaint DCIS Left Breast Reason for Visit [id number] Encounter for monitoring aromatase inhibitor therapy Coronary artery disease History of stroke Hypertension Mastodynia of right breast Additional Source Comments INFORMATION SOURCE (unrecogn ized section and content) DATE CREATED AUTHOR 03/25/2018 [facility] DATE CREATED AUTHOR AUTHOR'S ORGANIZ ATION 12/11/2018 [facility] DATE CREATED AUTHOR AUTHOR'S ORGANIZ ATION 02/14/2023 [facility] DATE CREATED AUTHOR AUTHOR'S ORGANIZ ATION 04/14/2023 [facility] DATE CREATED AUTHOR AUTHOR'S ORGANIZ ATION 11/20/2023 [facility] DATE CREATED AUTHOR AUTHOR'S ORGANIZ ATION 12/21/2023 [facility] DATE CREATED AUTHOR AUTHOR'S ORGANIZ ATION 02/04/2024 [facility] EPIC Care Teams (unrecognized sec tion and content) [...] Osman II MD Primary Care Provider Active Television Technician Relationship Specialty Start Date End Date Faraz Osman MD [address] [facility] [address] [place] [address] PCP - General Internal Medicine 02/20/23 Television Technician Relationship Specialty Start Date End Date Faraz Osman MD [address] [facility] [address] [place] [address] PCP - General Internal Medicine 02/20/23 Television Technician Relationship Specialty Start Date End Date Faraz Osman MD [address] [facility] [address] [place] [address] PCP - General Internal Medicine 02/20/23 Television Technician Relationship Specialty Start Date End Date Faraz Osman MD [address] [facility] [address] [place] [address] PCP - General Internal Medicine 02/20/23 Television Technician Relationship Specialty Start Date End Date Faraz Osman MD [address] [facility] [address] [place] [address] PCP - General Internal Medicine 02/20/23 Goals [...] BE BASED ON THE PRIMARY CLINICAL RECORDS. [employer] [facility]. provides no warranty or guarantee of the accuracy or completeness of information in this document.
[2024-02-11 20:59] LABS: Glucometer 91 mg/dL (74-106)
[2024-02-11] MEDS: HEPARIN SODIUM (PORCINE) 5,000 UNIT/ML VIAL 5000 UNIT SUBQ (21:23)
[2024-02-11] MEDS: GABAPENTIN 300 MG CAPSULE PO (21:26)
[2024-02-11] MEDS: CARVEDILOL 12.5 MG TABLET PO (21:26)
[2024-02-11] MEDS: OMEPRAZOLE 40 MG CAPSULE.DR PO (21:26)
[2024-02-12] VITALS (13 sets, daily range): BP systolic 140; BP diastolic 56; PULSE 56–77; TEMP 36.4; O2SAT 95–96
[2024-02-12 04:22] LABS: Hematocrit 38.3 % (36.0-48.0); Hemoglobin 12.3 g/dL (12.0-16.0); Mean Corpuscular HGB Conc 32.1 g/dL (29.9-35.2); Mean Corpuscular Hemoglobin 31.1 pg (26.7-34.0); Mean Corpuscular Volume 96.7 fL (81.0-99.0); Mean Platelet Volume 10.3 fL (9.5-13.5); Platelet Count 262 10^3/uL (150-450); Red Blood Count 3.96 10^6/uL (4.20-5.40); Red Cell Distribution Width 12.9 % (11.0-15.0); White Blood Count 9.2 10^3/uL (4.0-11.0)
[2024-02-12 04:34] LABS: BUN Creatinine Ratio 35.7; Calcium 8.9 mg/dL (8.5-10.1); Chloride 108 mmol/L (98-107); Estimated GFR (African America >60 (>=60); Estimated GFR (Non-African Ame 56 (>=60); Glucose 85 mg/dL (74-106); Sodium 141 mmol/L (136-145)
--- NOTE | 2024-02-12 07:00 | MR_ITS ---
The [address] [address] Patient Name: ORTEGA POWELL MRN: [id number] date: 1955 Sex: F Assigned Patient Location: ICU Current Patient Location: ICU Accession/Order Number: [id number] Exam Date: 02/12/2024 10:41 Report Date: 02/12/2024 13:28 At the request of: ARASH GRAHAM Procedure: MR head/brain wo con EXAM: MR head/brain wo con HISTORY: TIA r/o CVA COMPARISON: CT brain 02/11/2024. TECHNIQUE: MRI of the brain was performed without contrast. FINDINGS: Exam is distorted secondary to motion artifact. Findings are made within these confines. There is no restricted diffusion to suggest acute infarct. There is no midline shift, mass effect, or abnormal extraaxial fluid collections. The cortical sulci and ventricular system are within normal limits. There are remote lacunar infarcts in the left parietal periventricular white matter, right thalamus and bilateral caudate nucleus. Multiple nonspecific scattered foci of T2/FLAIR signal abnormality are identified in the subcortical and periventricular white matter, likely reflect chronic microvascular ischemic changes. The major intracranial flow voids are visualized. The cerebellar tonsils are normal in position. The orbits are unremarkable. The paranasal sinuses show no air-fluid level. The mastoid air cells are clear. The calvarium and extracranial soft tissues are unremarkable. MR/MR head/brain wo con IMPRESSION: Within the limitations of motion artifact which moderately limited multiple pulse sequences, no discrete acute intracranial abnormality identified. Remote lacunar infarcts in the bilateral caudate nucleus, right thalamus and left parietal periventricular white matter. Mild chronic microvascular ischemia and involutional changes. Electronically authenticated by: JEF JARRELL Date: 02/12/2024 13:28
[2024-02-12 07:59] LABS: Estimated Average Glucose 163 mg/dL; Glycohemoglobin A1C 7.3 % (4.5-6.2)
[2024-02-12 08:06] LABS: Glucometer 88 mg/dL (74-106)
[2024-02-12] MEDS: ISOSORBIDE MONONITRATE 30 MG TAB.ER.24H PO (08:24)
[2024-02-12] MEDS: HEPARIN SODIUM (PORCINE) 5,000 UNIT/ML VIAL 5000 UNIT SUBQ (08:24)
[2024-02-12] MEDS: AMLODIPINE BESYLATE 5 MG TABLET 10 MG PO (08:24)
[2024-02-12] MEDS: ASPIRIN 81 MG TAB.CHEW PO (08:24)
[2024-02-12] MEDS: CARVEDILOL 12.5 MG TABLET PO (08:24)
[2024-02-12] MEDS: CLOPIDOGREL BISULFATE 75 MG TABLET PO (08:24)
[2024-02-12] MEDS: BUPROPION HCL 150 MG XL TABLET 24H PO (08:24)
[2024-02-12] MEDS: ATORVASTATIN CALCIUM 40 MG TABLET 80 MG PO (08:24)
[2024-02-12] MEDS: OMEPRAZOLE 40 MG CAPSULE.DR PO (08:24)
[2024-02-12] MEDS: 0.9 % SODIUM CHLORIDE 1,000 ML 100 ML IV (08:25)
[2024-02-12] MEDS: OXcarbazepine 300 MG TABLET PO (09:53)
[2024-02-12] MEDS: DOCUSATE SODIUM 100 MG CAPSULE PO (09:53)
--- NOTE | 2024-02-12 10:47 | CM.NOTE ---
Rounds made with Dr. Polanco. Plan for MRI this afternoon then determine further plan of care. Ms. Hwang verbalizes understanding.
--- NOTE | 2024-02-12 11:33 | P.HP_ITS ---
<Statement entered by Michael Polanco MD - 02/12/24 21:13> Patient seen and examined, agree with assessment and plan below. Developed slurred speech and history of CVA. Found hypoglycemia and corrected. Discussed with tele-neurology and recommended MRI. Admitted and did well. Symptoms resolved and normal speech. MRI without acute change. Discharged home in stable condition. Follow up with PCP in 1-2 weeks. Diagnosis: 1. TIA 2. Hypoglycemia 3. Stenosis of cerebral artery 4. Carotid artery stenosis 5. MINERVA 6. DM2 7. HTN 8. Chronic HFpEF 9. CAD 10. DM2 with polyneuropathy HPI H&P: HPI History of Present Illness Chief complaint: TIA MILD ATAXIA Narrative: 02/12/24 0855 This is a 68-year-old female patient with a past medical history as outlined below including multiple CVAs and MIs, DM2, HFpEF, hypertension, hyperlipidemia, and GERD; who presented to the ED yesterday evening complaining of acute, intermittent stroke symptoms. She reported initial onset of dysarthria and left arm numbness while at her doctor's office yesterday afternoon. This resolved before she returned home. After returning home she had several episodes of vertigo, near syncope, and recurrent slurred speech with left facial droop reported by her . EMS was called and she was brought to the ED for further evaluation. Workup in the ED revealed MINERVA (BUN 45, CR 1.32, GFR 48), and hypoglycemia (44). A CT of the brain and CTA of the head and neck were obtained in the ED. These revealed no acute intercranial abnormality, but did note moderate to severe stenosis in the right M2 posterior division approximately and moderate stenosis in the mid right P2 area. 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 He also noted moderate stenosis of the bilateral vertebral arteries. Telestroke was contacted by the ED and they recommended admission for MRI imaging, but did not recommend transfer. The patient is already on aspirin, Plavix, and high-dose statin. At the time of my exam the patient is sitting up in a bedside chair having just finished eating her breakfast. All of her symptoms have completely resolved. She has difficulty remembering the course of events after her doctor's office visit yesterday. It is unclear how much hypoglycemia may have been contributing to her symptoms prior to arrival in the ED. Her left upper extremity paresthesias did persist through her time in the ED, but resolved just prior to arrival in the ICU last night. An MRI of the head will be obtained today and if negative, the patient will likely be discharged home later today to follow-up with her PCP and neurology. Her MINERVA is resolving with IV fluids overnight. The patient does note that she was just prescribed Jardiance within the last month and this is likely the source of her acute kidney injury. Opioid HPI Opioid Management Most Recent Opioid Data: Last Pain Scale 10 12/28/23 14:45 Last Pain Assessment 02/12/24 10:48 Last ORT Total Score 0 02/11/24 19:52 Last ORT Risk Category Low Risk 02/11/24 19:52 Review of Systems ROS Status of ROS 10 or more systems reviewed and unremark able except as noted in history and below [facility] Medical History (Updated 02/12/24 @ 11:49 by Sofi Winchester NP) GERD (gastroesophageal reflux disease) ?K21.9 - Gastro-esophageal reflux disease without esophagitis (ICD-10) Hypertension ?I10 - Essential (primary) hypertension (ICD-10) Cerebrovascular disease ?I67.9 - Cerebrovascular disease, unspecified (ICD-10) Type 2 diabetes mellitus with diabetic polyneuropathy ?E11.42 - Type 2 diabetes mellitus with diabetic polyneuropathy (ICD-10) CAD (coronary artery disease) ?I25.10 - Atherosclerotic heart disease of sycuan coronary artery without angina pectoris (ICD-10) Chronic heart failure with preserved ejection fraction (HFpEF) ?I50.32 - Chronic diastolic (congestive) heart failure (ICD-10) Diabetes mellitus with hyperglycemia, with long-term current use of insulin ?E11.65 - Type 2 diabetes mellitus with hyperglycemia (ICD-10) ?Z79.4 - manager intermediate (current) use of insulin (ICD-10) Ductal carcinoma in situ (DCIS) of left breast ?D05.12 - Intraductal carcinoma in situ of left breast (ICD-10) Ataxia ?R27.0 - Ataxia, unspecified (ICD-10) Chronic shortness of breath ?R06.02 - Shortness of breath (ICD-10) Chest pain ?R07.9 - Chest pain, unspecified (ICD-10) Breast cancer ?C50.919 - Malignant neoplasm of unspecified site of unspecified female breast (ICD-10) Diabetes mellitus ?E11.9 - Type 2 diabetes mellitus without complications (ICD-10) Brain aneurysm ?I67.1 - Cerebral aneurysm, nonruptured (ICD-10) Congestive heart failure ?I50.9 - Heart failure, unspecified (ICD-10) Myocardial infarction ?I21.9 - Acute myocardial infarction, unspecified (ICD-10) Stroke ?I63.9 - Cerebral infarction, unspecified (ICD-10) Surgical History (Updated 02/11/24 @ 19:36 by Emilie Murguia) H/O heart artery stent ?Z95.5 - Presence of coronary angioplasty implant and graft (ICD-10) Family History (Updated 02/11/24 @ 19:43 by Emilie Murguia) Other Family history of CHF (congestive heart failure) Family history of hypertension Family history of myocardial infarction Family history of stroke Social History (Updated 02/11/24 @ 19:45 by Emilie Murugia) Within the past year, how often did you have six or more drinks on one occasion: never Smoking status: Never smoker Non-prescribed substance use: denies use Previous occupational history: Retired Highest level of school completed/degree received: 12th grade, no diploma Are you now , , , , never or living with a partner: In a typical week, how many times do you talk on the telephone with family, friends, or neighbors: 3 or more times per week How often do you get together with friends or relatives: 3 or more times per week Little interest or pleasure in doing things: not at all Feeling down, depressed, or hopeless: not at all Feel stressed/tense/nervous/anxious/difficulty sleeping: not at all Meds Home Medications and Allergies Home Medications ?Medication ?Instructions ?Recorded ?Confirmed ?Type amlodipine 10 mg tablet 10 mg PO QDAY 06/16/23 02/11/24 History anastrozole 1 mg tablet 1 mg PO QDAY 06/16/23 02/11/24 History aspirin 81 mg capsule 81 mg PO DAILY 06/16/23 02/11/24 History atorvastatin 80 mg tablet 80 mg PO QDAY 06/16/23 02/11/24 History bupropion HCl 150 mg 24 hr tablet, 150 mg PO QDAY 06/16/23 02/11/24 History extended release carvedilol 12.5 mg tablet 12.5 mg PO BID 06/16/23 02/11/24 History clopidogrel 75 mg tablet 75 mg PO QDAY 06/16/23 02/11/24 History docusate sodium 100 mg capsule 100 mg PO BID 06/16/23 02/12/24 History ([facility]) isosorbide mononitrate 30 mg 30 mg PO QDAY 06/16/23 02/11/24 History tablet,extended release 24 hr lisinopril 40 mg tablet 10 mg PO BID 06/16/23 02/11/24 History metformin 500 mg tablet,extended 500 mg PO BID 06/16/23 02/11/24 History release 24 hr oxcarbazepine 300 mg tablet 300 mg PO BID 06/16/23 02/12/24 History pantoprazole 40 mg tablet,delayed 40 mg PO Q12H 06/16/23 02/11/24 History release spironolactone 25 mg tablet 25 mg PO QDAY 06/16/23 02/11/24 History empagliflozin 10 mg tablet 10 mg PO DAILY 02/11/24 02/11/24 History (Jardiance) gabapentin 300 mg capsule 300 mg PO BEDTIME 02/11/24 02/11/24 History insulin lispro protamine-lispro 45 unit subcut .am 02/12/24 02/12/24 History 100 unit/mL (75-25) subcutaneous pen Allergies Allergy/AdvReac Type Severity Reaction Status Date / Time No Known Drug Allergies Allergy Verified 06/16/23 16:39 Exam Constitutional Vital Signs, click to edit/add: Last Vital Signs Temp 97.6 F 02/12/24 08:10 Pulse 62 02/12/24 10:00 Resp 12 02/12/24 08:00 BP 140/56 02/12/24 02:03 Pulse Ox 96 02/12/24 11:33 O2 Del Method Room Air 02/12/24 11:33 O2 Flow Rate 2 02/11/24 16:36 Common normals: no apparent distress, oriented x3, alert and well nourished General appearance: cooperative Orientation/consciousness: Yes awake HENPR Common normals: normocephalic, head/scalp atraumatic, hearing grossly normal bilaterally, external nose normal and moist oral mucous membranes Eye Common normals: PERRL, EOMs intact bilaterally, conjunctivae normal and no scleral icterus Alignment: alignment normal Eyelid: eyelids normal Neck & C-Spine Common normals: full ROM, supple and no JVD Chest Common normals: inspection of chest normal Chest: symmetrical chest wall rise Respiratory Common normals: normal respiratory effort, no retractions, no use of accessory muscles and clear to auscultation bilaterally Effort & inspection: able to speak in complete sentences Cardio Common normals: no JVD, regular rate, S1 normal heart sound, S2 normal heart sound, no gallops, no clicks, no rub and peripheral pulses 2+ throughout Rhythm: abnormal rhythm (Sinus arrhythmia, irregularly irregular) GI Common normals: Normal to inspection, nondistended, normoactive bowel sounds present, soft to palpation, non-tender, no hepatosplenomegaly, no masses and no bruits Bladder/kidney exam: bladder normal to palpation Back & Pelvis Common normals: thoracic and lumbar spine normal to inspection Extremity Common normals: normal capillary refill and no pedal edema General: normal exam except as noted; no clubbing and no cyanosis Neuro Phoenix Coma Scale: GCS not evaluated Common normals: CN's II-XII intact bilaterally, moves all extremities, no focal motor deficits and no sensory deficits noted Speech: speech normal Motor exam: strength 5/5 throughout Psych Common normals: mental status grossly normal, thought process normal, affect normal and activity/motor behavior normal Results Labs Labs: Short CBC 02/11/24 02/12/24 Range/Units 16:54 03:58 WBC 9.8 9.2 (4.0-11.0) 10^3/uL Hgb 12.5 12.3 (12.0-16.0) g/dL Hct 39.5 38.3 (36.0-48.0) % Plt Count 265 262 (150-450) 10^3/uL BMP 02/11/24 02/12/24 16:54 03:58 Sodium 140 141 Potassium 4.2 4.0 Chloride 104 108 H Carbon Dioxide 27.7 25.0 BUN 45.0 H 35.0 H Creatinine 1.32 H 0.98 Glucose 44 L* 85 Calcium 9.4 8.9 Liver Function 02/11/24 Range/Units 16:54 Total Bilirubin 0.3 (0.2-1.0) mg/dL AST 13 L (15-37) U/L ALT 21 (14-59) U/L Alkaline Phosphatase 71 (46-116) U/L Albumin 3.1 L (3.4-5.0) g/dL Pulse Oximetry Attestation: I have reviewed the pertinent pulse oximetry results. Imaging CT Brain/CTA Head & Neck: Attestation: I have reviewed the pertinent imaging results. Radiologist's impression: IMPRESSION: Head CT without contrast on 02/11/2024 shows old lacunar infarcts in the right and left caudate heads, anterior limb of the left internal capsule and right thalamus. No large vessel occlusion intracranially. A focal moderate to severe stenosis in the proximal left M2 anterior division, mild to moderate stenosis in the right M2 posterior division proximally, and moderate stenosis in the mid-right P2, likely due to intracranial atherosclerotic disease. 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 Patent dural venous sinuses. Common carotids and internal carotids show no dissection or significant stenosis. Moderate stenosis of the origin of the dominant left vertebral artery. Mild to moderate stenosis in the mid right V1. Chest x-ray: Attestation: I have reviewed the pertinent imaging results. Radiologist's impression: IMPRESSION: No acute findings. Assessment and Plan Assessment and Plan (1) TIA (transient ischemic attack): Assessment and Plan: Acute * Adm observation * Symptoms completely resolved * Equivocal TIA vs hypoglycemic episode * CT brain neg for acute ICH, old CVA findings remain * CTA head/neck - new finding of mod to severe stenosis of cerebral & vertebral arteries * Not emergent per Telestroke neurology * Follow up outpatient w/ neurology * MRI brain - pending * discharge likely if MRI is negative for acute ischemic CVA * Continue home ASA, plavix, high dose statin (2) Hypoglycemia: Assessment and Plan: Acute * Reduce home Levemir to 30 un daily * Hold home Jardiance, Metformin (see MINERVA) * Possible etiology of reported slurred speech (3) MINERVA (acute kidney injury): Assessment and Plan: Acute * Baseline renal fx is completely normal * MINERVA noted on ED labs * BUN 45, Cr 1.32, GFR 40 * 1 liter IVF bolus given in ED * NS given at 125/hr x 1 liter last night * Resume NS IVF at 100/hr for now * Hold renal toxic medications - metformin, jardiance, lisinopril, spironolactone * Jardiance recently prescribed by cardiology within 1 mo - likely source of abrupt MINERVA * Repeat BMP at 1400 to monitor for continued improvement in renal fx/dehydration (4) Diabetes mellitus with hyperglycemia, with long-term current use of insulin: Assessment and Plan: Chronic * Continue home Lispro insulin at 30 un daily (see hypoglycemia) * ACHS glucometer checks * SSI for glucose correction * CC diet (5) Chronic heart failure with preserved ejection fraction (HFpEF): Assessment and Plan: Chronic * Hold home Jardiance and spironolactone d/t MINERVA * likely resume spironolactone at d/c, but hold Jardiance - see MINERVA (6) CAD (coronary artery disease): Assessment and Plan: Chronic * Continue home ASA, high dose statin, Imdur, coreg, amlodipine * Hold home lisinopril for now d/t MINERVA (7) GERD (gastroesophageal reflux disease): Assessment and Plan: Chronic * Continue home PPI (8) Ductal carcinoma in situ (DCIS) of left breast: Assessment and Plan: Chronic * Continue home anastrozole
[2024-02-12 12:04] LABS: Glucometer 148 mg/dL (74-106)
--- NOTE | 2024-02-12 12:09 | SWNOTE1 ---
Medicare Outpatient Observation Notice reviewed and discussed with patient. Pt. verbalized understanding and signed the form. Original given to patient and copy placed in patient?s chart. Pt voiced no needs, live at home with her , she is independent.
[2024-02-12 14:27] LABS: Anion Gap 13.6; BUN Creatinine Ratio 30.7; Calcium 8.8 mg/dL (8.5-10.1); Carbon Dioxide 23.9 mmol/L (21.0-32.0); Chloride 106 mmol/L (98-107); Estimated GFR (African America >60 (>=60); Estimated GFR (Non-African Ame 55 (>=60); Glucose 254 mg/dL (74-106); Potassium 4.5 mmol/L (3.5-5.1); Sodium 139 mmol/L (136-145)
--- NOTE | 2024-02-13 15:12 | CM.DCFOLLOWU ---
Person spoke with: Kyle How are you feeling? pretty good-just woke from a nap. How is your pain? No pain, just tired. Did you understand your discharge instructions? Wasn't sure on how long she should hold (d/t MINERVA) the Jardiance. Directed her to her [facility]inger/PCP. Do you have any questions about your discharge instructions? just regarding the Jardiance. Were you given any prescriptions at discharge? no Were you able to get your prescriptions filled?n/a Do you understand how to take your medications as ordered? Jardiance question Do you have any questions about your follow up appointment and do you plan to keep your follow up appointment? Appointments made and will follow up. Is there anything else that you would like to discuss? No. Questions/Comments/Concerns/Other:
== END 2024-02-12 16:20 | disposition home or self-care (01) ==
LOC: ER 19:02 → ICU 02-12 12:36
PROVIDERS: Family Medicine; Registered Nurse; Admitting Provider Nurse Practitioner; Emergency Provider Emergency Medicine; PCP Internal Medicine; Visit Provider Nurse Practitioner
DX: I63.231 Cerebral infarction due to unspecified occlusion or stenosis of right carotid arteries (principal); I63.213 Cerebral infarction due to unspecified occlusion or stenosis of bilateral vertebral arteries; I63.50 Cerebral infarction due to unspecified occlusion or stenosis of unspecified cerebral artery; E11.649 Type 2 diabetes mellitus with hypoglycemia without coma; N17.9 Acute kidney failure, unspecified; I11.0 Hypertensive heart disease with heart failure; I50.32 Chronic diastolic (congestive) heart failure; I25.10 Atherosclerotic heart disease of native coronary artery without angina pectoris; D05.12 Intraductal carcinoma in situ of left breast; R27.0 Ataxia, unspecified; E11.42 Type 2 diabetes mellitus with diabetic polyneuropathy; K21.9 Gastro-esophageal reflux disease without esophagitis; E78.5 Hyperlipidemia, unspecified; Z86.73 Personal history of transient ischemic attack (TIA), and cerebral infarction without residual deficits; I25.2 Old myocardial infarction; Z85.3 Personal history of malignant neoplasm of breast; Z95.5 Presence of coronary angioplasty implant and graft; Z79.82 Long term (current) use of aspirin; Z79.84 Long term (current) use of oral hypoglycemic drugs; Z79.899 Other long term (current) drug therapy; Z79.02 Long term (current) use of 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latelets; Z79.4 Long term (current) use of insulin
CPT/HCPCS: 36415; 36416; 70450; 70496; 70498; 70551; 71045; 80048; 80053; 82948; 83036; 84484; 85025; 85027; 85610; 85730; 92523; 93005; 94761; 96360; 96361; 96372; 97162; 97165; 99285; G0378; Q3014; Q9967

== ENCOUNTER 2024-03-31 09:32 | Outpatient (OUT) | payer MEDICARE, MEDICAID, SELFPAY ==
[2024-04-03 12:18] LABS: Homocyst(e)ine 11.3 umol/L (0.0-17.2)
[2024-04-03 14:12] LABS: Vitamin B6, Plasma 63.6 ug/L (3.4-65.2)
[2024-04-04 11:11] LABS: Methylmalonic Acid, Serum 167 nmol/L (0-378)
== END 2024-03-31 09:33 | disposition home or self-care (01) ==
LOC: LAB 09:34
PROVIDERS: PCP Internal Medicine; Visit Provider Psychiatry & Neurology Neurology
DX: G62.9 Polyneuropathy, unspecified (principal); R79.89 Other specified abnormal findings of blood chemistry; G60.9 Hereditary and idiopathic neuropathy, unspecified; Z11.3 Encounter for screening for infections with a predominantly sexual mode of transmission; E53.1 Pyridoxine deficiency; I70.91 Generalized atherosclerosis; D51.3 Other dietary vitamin B12 deficiency anemia; M79.10 Myalgia, unspecified site; E78.5 Hyperlipidemia, unspecified
CPT/HCPCS: 36415; 82607; 82746; 83090; 83921; 84207

== ENCOUNTER 2024-08-26 12:26 | Emergency (ER) | payer MEDICARE, MEDICAID, SELFPAY ==
[2024-08-26] VITALS (12 sets, daily range): BP systolic 170–240; BP diastolic 69–88; PULSE 68–78; TEMP 36.7; O2SAT 94–99; BMI 43.2
--- NOTE | 2024-08-26 12:49 | CT_ITS ---
The [address] [address] Patient Name: ORTEGA POWELL MRN: [id number] date: 1955 Sex: F Assigned Patient Location: ER Current Patient Location: ED.MAIN Accession/Order Number: [id number] Exam Date: 08/26/2024 12:53 Report Date: 08/26/2024 13:11 At the request of: DK LI Procedure: CT head/brain wo con EXAM: CT head/brain wo con HISTORY: head injury COMPARISON: None. TECHNIQUE: Axial soft tissue and bone windows through the calvarium with coronal and sagittal reformats. CT dose reduction technique was used including Automated Exposure Control. Findings: No depressed or calvarial fracture. The paranasal sinuses and mastoid air cells are well aerated. No air-fluid levels. No extra-axial fluid collection. No intra-axial or extra-axial bleed. No mass effect or midline shift. The rutherford-white matter differentiation is preserved. There are white matter low attenuation lesions which are nonspecific but commonly attributed to chronic small vessel ischemic disease. The brain parenchymal volume is reduced yet likely age-appropriate. The ventricles are nondilated. The basal cisterns are patent. The craniovertebral junction is unremarkable. CT/CT head/brain wo con IMPRESSION: 1. No depressed or calvarial fracture. 2. No acute intracranial bleed. Electronically authenticated by: ERNESTO OLVERA Date: 08/26/2024 13:11
[2024-08-26] MEDS: ACETAMINOPHEN 500 MG TABLET PO (13:04)
--- NOTE | 2024-08-26 15:01 | ED_ITS ---
HPI HPI - General Adult General Chief complaint: Head Injury Stated complaint: FALL, BILATERAL LEG/KNEE PAIN, HEAD PAIN Time Seen by Provider: 08/26/24 12:49 Source: patient Mode of arrival: walk-in History of Present Illness HPI narrative: Patient is a 68-year-old female who is presenting to the ER today with chief complaint close head injury. Patient has been having multiple falls in the past several months to year. Patient was in the kitchen today, lost her balance and fell backwards hitting her head against the counter. Patient is on Plavix. Patient does have some minimal neck pain along with a headache. This occurred this morning around 630 to 7 AM. Patient came in this afternoon. Patient has no vision or hearing changes. Patient at bedside. She has no chest pain or shortness of breath. No arm or leg pain. No abdominal pain. No back pain. states that she has been falling several times over the past several months. Patient did have home physical therapy come to the house and therapy would not perform therapy because patient was too unsteady. 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 Patient has had multiple cardiac stents, multiple TIAs/strokes. Patient is on Plavix. Patient has significant cardiovascular history. Patient is currently undergoing workup and testing with patient's PCP Dr. Osman and also Dr. Osman's nurse practitioner. Patient saw e nurse practitioner in the office 2 to 3 weeks ago. All systems are negative except as noted/marked. All systems reviewed and otherwise negative. Nurses note and vital signs reviewed and patient is not hypoxic. General: The patient appears well and in no apparent distress. Patient is resting comfortably on cart. Patient is not toxic, lethargic, or listless Skin: Warm, dry, no pallor noted. There is no rash noted. No petechiae, purpura. Head: Normocephalic, atraumatic, no midline or paracervical tenderness to palpation. Patient has mild tenderness to palpation to the occiput, no scalp hematoma. No abrasion or laceration. Eye: Normal conjunctiva, no drainage, EOMI. PERRL Ears, Nose, Mouth, and Throat: oral mucosa is moist. Nares patent. Mouth without vesicles. Cardiovascular: Regular Rate and Rhythm, no murmur, gallop, rub Respiratory: Patient is in no distress, no accessory muscle use, lungs are clear to auscultation, no wheezing, rales or rhonchi Back: non-tender, no CVA tenderness bilaterally to percussion. No CT LS midline pain GI: Obese, soft, no tenderness to palpation, no masses appreciated. No rebound, guarding, or rigidity noted. No distention Musculoskeletal: Patient has full range of motion of all of the extremities, no motor, sensory, or focal neurological deficits Neurological: A&O x4, normal speech, NIH 0 Psychiatric: Cooperative Related Data Home Medications ?Medication ?Instructions ?Recorded ?Confirmed amlodipine 10 mg tablet 10 mg PO QDAY 06/16/23 08/26/24 anastrozole 1 mg tablet 1 mg PO QDAY 06/16/23 02/11/24 aspirin 81 mg capsule 81 mg PO DAILY 06/16/23 08/26/24 atorvastatin 80 mg tablet 80 mg PO QDAY 06/16/23 08/26/24 bupropion HCl 150 mg 24 hr tablet, 150 mg PO QDAY 06/16/23 08/26/24 extended release carvedilol 12.5 mg tablet 12.5 mg PO BID 06/16/23 08/26/24 clopidogrel 75 mg tablet 75 mg PO QDAY 06/16/23 08/26/24 isosorbide mononitrate 30 mg 30 mg PO QDAY 06/16/23 08/26/24 tablet,extended release 24 hr lisinopril 40 mg tablet 10 mg PO BID 06/16/23 08/26/24 metformin 500 mg tablet,extended 500 mg PO BID 06/16/23 08/26/24 release 24 hr oxcarbazepine 300 mg tablet 300 mg PO BID 06/16/23 08/26/24 pantoprazole 40 mg tablet,delayed 40 mg PO Q12H 06/16/23 08/26/24 release spironolactone 25 mg tablet 25 mg PO QDAY 06/16/23 08/26/24 gabapentin 300 mg capsule 300 mg PO BEDTIME 02/11/24 08/26/24 insulin lispro protamine-lispro 45 unit subcut .am 02/12/24 08/26/24 100 unit/mL (75-25) subcutaneous pen Allergies Allergy/AdvReac Type Severity Reaction Status Date / Time No Known Drug Allergies Allergy Verified 06/16/23 16:39 Opioid HPI Opioid Management Most Recent Opioid Data: Last Pain Scale 7 08/26/24 13:04 08/26/24 Last MAR Pain Assessment 08/26/24 13:04 Last ORT Total Score 0 02/11/24 19:52 02/11/24 Last ORT Risk Category Low Risk 02/11/24 19:52 02/11/24 [facility] Medical History (Updated 08/26/24 @ 14:56 by Chris Abrams MD) Falls ?R29.6 - Repeated falls (ICD-10) GERD (gastroesophageal reflux disease) ?K21.9 - Gastro-esophageal reflux disease without esophagitis (ICD-10) Hypertension ?I10 - Essential (primary) hypertension (ICD-10) Cerebrovascular disease ?I67.9 - Cerebrovascular disease, unspecified (ICD-10) Type 2 diabetes mellitus with diabetic polyneuropathy ?E11.42 - Type 2 diabetes mellitus with diabetic polyneuropathy (ICD-10) CAD (coronary artery disease) ?I25.10 - Atherosclerotic heart disease of [place] coronary artery without angina pectoris (ICD-10) Chronic heart failure with preserved ejection fraction (HFpEF) ?I50.32 - Chronic diastolic (congestive) heart failure (ICD-10) Diabetes mellitus with hyperglycemia, with long-term current use of insulin ?E11.65 - Type 2 diabetes mellitus with hyperglycemia (ICD-10) ?Z79.4 - continuous churn buttermaker (current) use of insulin (ICD-10) Ductal carcinoma in situ (DCIS) of left breast ?D05.12 - Intraductal carcinoma in situ of left breast (ICD-10) Ataxia ?R27.0 - Ataxia, unspecified (ICD-10) Chronic shortness of breath ?R06.02 - Shortness of breath (ICD-10) Chest pain ?R07.9 - Chest pain, unspecified (ICD-10) Breast cancer ?C50.919 - Malignant neoplasm of unspecified site of unspecified female breast (ICD-10) Diabetes mellitus ?E11.9 - Type 2 diabetes mellitus without complications (ICD-10) Brain aneurysm ?I67.1 - Cerebral aneurysm, nonruptured (ICD-10) Congestive heart failure ?I50.9 - Heart failure, unspecified (ICD-10) Myocardial infarction ?I21.9 - Acute myocardial infarction, unspecified (ICD-10) Stroke ?I63.9 - Cerebral infarction, unspecified (ICD-10) Surgical History (Updated 02/11/24 @ 19:36 by Emilie Murguia) H/O heart artery stent ?Z95.5 - Presence of coronary angioplasty implant and graft (ICD-10) Family History (Updated 02/11/24 @ 19:43 by Emilie Murguia) Other Family history of CHF (congestive heart failure) Family history of hypertension Family history of myocardial infarction Family history of stroke Social History (Updated 02/11/24 @ 19:45 by Emilie Murguia) Within the past year, how often did you have six or more drinks on one occasion: never Smoking status: Never smoker Non-prescribed substance use: denies use Previous occupational history: Retired Highest level of school completed/degree received: 12th grade, no diploma Are you now , , , , never or living with a partner: In a typical week, how many times do you talk on the telephone with family, friends, or neighbors: 3 or more times per week How often do you get together with friends or relatives: 3 or more times per week Little interest or pleasure in doing things: not at all Feeling down, depressed, or hopeless: not at all Feel stressed/tense/nervous/anxious/difficulty sleeping: not at all Exam Constitutional Vital Signs, click to edit/add: Last Vital Signs Temp 98.0 F 08/26/24 12:30 Pulse 70 08/26/24 14:55 Resp 16 08/26/24 14:55 BP 170/88 H 08/26/24 14:55 Pulse Ox 98 08/26/24 14:55 O2 Del Method Room Air 08/26/24 12:30 Course Vital Signs Vital signs: Vital Signs Temperature 98.0 F 08/26/24 12:30 Pulse Rate 78 08/26/24 12:30 Respiratory Rate 16 08/26/24 12:30 Blood Pressure 240/78 H 08/26/24 12:30 Pulse Oximetry 98 08/26/24 12:30 Oxygen Delivery Method Room Air 08/26/24 12:30 Temperature 98.0 F 08/26/24 12:30 Pulse Rate 70 08/26/24 14:55 Respiratory Rate 16 08/26/24 14:55 Blood Pressure 170/88 H 08/26/24 14:55 Pulse Oximetry 98 08/26/24 14:55 Oxygen Delivery Method Room Air 08/26/24 12:30 Medical Decision Making MDM Narrative Medical decision making narrative: CT is negative. Patient felt better after Tylenol and ice. I did speak to patient's PCP, Dr. Osman. Patient is to call the office tomorrow, and PCP will see her in the office next week. Dr. Jane knows this patient very well, patient has a longstanding history of chronic comorbidities. He will follow-up with the patient, he is recommended no additional lab testing, radiographic testing, or admission to the hospital or rehab. He will see the patient in the office and continue assessment for multiple falls. Patient did go down to the cardiovascular office for [place] [facility]. He did make an appointment for September 03 and will follow-up with asphalt machine operator for multiple falls as well. Patient will also follow-up with neurology as recommended. Patient feels better and is ready to go home and feels very safe for discharge as does . Discharge Plan Discharge Chief Complaint: Head Injury Clinical Impression: CHI (closed head injury) Patient Disposition: Home, Self-Care Time of Disposition Decision: 14:54 Condition: Fair Mode of Transportation: Private Vehicle Prescriptions / Home Meds: No Action amlodipine 10 mg tablet 10 mg PO QDAY anastrozole 1 mg tablet 1 mg PO QDAY atorvastatin 80 mg tablet 80 mg PO QDAY bupropion HCl 150 mg tablet extended release 24 hr 150 mg PO QDAY carvedilol 12.5 mg tablet 12.5 mg PO BID clopidogrel 75 mg tablet 75 mg PO QDAY isosorbide mononitrate 30 mg tablet extended release 24 hr 30 mg PO QDAY lisinopril 40 mg tablet 10 mg PO BID metformin 500 mg tablet extended release 24 hr 500 mg PO BID pantoprazole 40 mg tablet,delayed release (DR/EC) 40 mg PO Q12H spironolactone 25 mg tablet 25 mg PO QDAY aspirin 81 mg capsule 81 mg PO DAILY oxcarbazepine 300 mg tablet 300 mg PO BID gabapentin 300 mg capsule 300 mg PO BEDTIME insulin lispro protamin-lispro 100 unit/mL (75-25) insulin pen 45 unit SUBCUT .am Rx Instructions: Patient takes 45 units in AM and 55 Units PM Print Language: Arabic Instructions: Head Injury (ED), Fall Prevention (ED) Additional Instructions: I have spoken to Dr. Osman. He stated to call the office today or tomorrow, and make sure that you tell the special education secretary that he wanted to see you in the office next week. Let the special education secretary know that Dr. Abrams spoke to Dr. Osman and this is what Dr. Osman has instructed. Continue to increase fluids at home. Closed head injury instructions were discussed at bedside and on discharge paperwork. Referrals: KAREN OSMAN [Primary Care Provider] - 1 week Discharge Date/Time: 08/26/24 15:09
== END 2024-08-26 15:09 | disposition home or self-care (01) ==
PROVIDERS: Emergency Provider Emergency Medicine; PCP Internal Medicine
DX: S09.8XXA Other specified injuries of head, initial encounter (principal); Z79.02 Long term (current) use of 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latelets; M54.2 Cervicalgia; Z95.5 Presence of coronary angioplasty implant and graft; Z86.73 Personal history of transient ischemic attack (TIA), and cerebral infarction without residual deficits; W18.39XA Other fall on same level, initial encounter; Z91.81 History of falling; W22.09XA Striking against other stationary object, initial encounter
CPT/HCPCS: 70450; 99284

== ENCOUNTER 2024-10-17 21:11 | Emergency (ER) | payer MEDICARE, MEDICAID, SELFPAY ==
[2024-10-17] VITALS (16 sets, daily range): BP systolic 107–224; BP diastolic 67–112; PULSE 71–90; TEMP 37.2; O2SAT 83–96; BMI 35.8
--- OUTSIDE RECORDS SUMMARY | 2024-10-17 21:20 | XMS_ITS | CCD ---
Author Organization [facility] Care Team Providers Care Propellant Assembler Name Role Phone CARLOS EDUARDO VAN Unavailable Unavailable AHMED, JONAH Admitting Unavailable AHMED, JONAH Attending Unavailable GARRETT MCDONALD Referring Unavailable FARAZ OSMAN Primary Care Unavailable SD Procedure Practitioner Unavailab JENNIFER Ross Surgeon Unavailable FARAZ OSMAN Primary Care Unavailable FARAZ OSMAN Referring Unavailable CHERELLE, RIVERA R Attending Unavailable CHERELLE, RIVERA R Admitting Unavailable SD Procedure Practitioner Unavailab Temitope Blank Surgeon Unavailable WILMAR MORRIS Primary Care Unavailable DOMINICK MCGEE Referring Unavailable KHAYZNIKOV, THERESA Admitting Unavailable CHERELLE, RIVERA R Attending Unavailable SD Procedure Practitioner Unavailab le CHERELLE, RIVERA R Surgeon Unavailable SHAHANA Osman Primary Care Provider SHAHANA Osman Referring Provider MD Karoline Farmer Attending Provider [phone] DO Jac Hemphill Attending Provider [phone] SHAHANA Osman Primary Care Provider SHAHANA Osman Referring Provider [phone] MD Karoline Farmer Attending Provider [phone] SHAHANA Osman Referring Provider [phone] MD Karoline Farmer Attending Provider [phone] SHAHANA Osman Referring Provider [phone] MD Karoline Farmer Attending Provider [phone] SHAHANA Osman Referring Provider MD Karoline Farmer Attending Provider SHAHANA Osman Primary Care Provider Osman, SHAHANA Ruth Referring Provider [phone] MD Karoline Farmer Attending Provider [phone] FARAZ OSMAN Primary Care Physician Viki Yoana Unavailable DAWSON, DR RUTH Primary Care Unavailable [...] Unavailable OSMAN, DR RUTH Primary Care Unavailable NETO, DAVID Admitting Unavailable NETO, DAVID Attending Unavailable NETO, DAVID Consulting Unavailable ELTAHAWY, DR MATA Admitting Unavailable WEST, DR CARLOS EDUARDO Munroe Consulting Unavailable OSMAN, DR RUTH Primary Care Unavailable ELTAHAWY, DR MATA Attending Unavailable ELTAHAWY, DR MATA Consulting Unavailable OSMAN, DR RUTH Admitting Unavailable OSMAN, DR RUTH Primary Care Unavailable OSMAN, DR RUTH Attending Unavailable OSMAN, DR RUTH Consulting Unavailable ZIEBER, DR BARRON Cho Consulting Unavailable COLIN .KAROLINE Consulting Unavailable OSMAN, DR RUTH Primary Care Unavailable GABE ., TIFFANIE Admitting Unavailable GABE ., TIFFANIE Attending Unavailable DIAMOND CHAN Consulting Unavailable Faraz Osman Primary Care Unavailable Faraz Osman Referring Unavailable Karoline Farmer Admitting Unavailable Karoline Farmer Attending Unavailable Faraz Osman MD Primary Care Provider FARAZ OSMAN Primary Care Unavailable FARAZ OSMAN B Referring Unavailable FARAZ OSMAN B Primary Care Unavailable FARAZ OSMAN B Referring Unavailable FARAZ OSMAN B Primary Care Unavailable FARAZ OSMAN B Referring Unavailable FARAZ OSMAN B Primary Care Unavailable FAARZ OSMAN Referring Unavailable FARAZ OSMAN Attending Unavailable Faraz Osman MD Unavailable [phone] ELROELHAWLouie, GARRETT Attending Unavailable EM COREAS Attending Unavailable FARAZ OSMAN Attending Unavailable JERSON ANTON Attending Unavailable ROSEANN VICENTE Attending Unavailable JERSON ANTON Referring Unavailable ROSEANN VICENTE Attending Unavailable JERSON ANTON A Referring Unavailable ROSEANN VICENTE Attending Unavailable DESEAN, JERSON A Referring Unavailable ROSEANN VICENTE Attending Unavailable DESEAN, JERSON A Referring Unavailable CINTHIA, ROSEANN Attending Unavailable DESENA, JERSON A Referring Unavailable CINTHIA, ROSEANN Attending Unavailable DESEAN, JERSON A Referring Unavailable DESEAN, JERSON A Attending Unavailable FARAZ OSMAN Attending Unavailable FARAZ OSMAN Attending Unavailable FARAZ OSMAN Attending Unavailable FARAZ OSMAN Attending Unavailable ARANZA AGUDELO Attending Unavailable FARAZ OSMAN Attending Unavailable FARAZ OSMAN Attending Unavailable DARREL EDWARDS Attending Unavailable HEMMERCHRISTY Attending Unavailable MARY RAMSAY Attending Unavailable HEMMERCHRISTY Referring Unavailable OSWALDO BRODY Attending Unavailable HEMMER, CHRISTY Gregory Referring Unavailable FARAZ OSMAN Attending Unavailable MARY RAMSAY Attending Unavailable HEMMER, CHRISTY Gregory Referring Unavailable OSWALDO BRODY Attending Unavailable HEMMER, CHRISTY Gregory Referring Unavailable FARAZ OSMAN Attending Unavailable MARY RAMSAY Attending Unavailable HEMMER, CHRISTY Gregory Referring Unavailable HEMMER, CHRISTY Gregory Referring Unavailable OSWALDO BRODY Attending Unavailable HEMMER, CHRISTY Gregory Referring Unavailable OSWALDO BRODY Attending Unavailable HEMMER, CHRISTY Gregory Referring Unavailable MARY RAMSAY Attending Unavailable HEMMER, CHRISTY Gregory Referring Unavailable MARY RAMSAY Attending Unavailable HEMMER, CHRISTY Gregory Referring Unavailable FARAZ OSMAN Attending Unavailable Allergies Allergy Classification Reported Allergen(s) Allergy Type Date of Onset Reaction(s) Facility (1 source) 02317,00 Drug allergy (disorder) 02-02-2017 [facility] Repository (20 sources) diphenhydrAMINE; Translations: [diphenhydramine ] Drug Allergy 12-20-2021 [facility] Medications Current Medications Medication Drug Class(es) Dates Sig (Normalized) Sig (Original) acetaminophen 300 mg / codeine phosphate 30 mg oral tablet (9 sources) Opioid Agonist Start: 12-20-2021 take 1 tablet by mouth every four to six hours Acetaminophen-Cod eine Active 1 TAB PO EVERY 4-6 HOURS 17 02December 20, 2021 11:37am Acetaminophen / HYDROcodone (2 sources) Opioid Agonist HYDROcodone-Acet a minophen Active [id number] 200 actuat albuterol 0.09 mg/actuat metered dose inhaler (9 sources) beta2-Adrenergic Agonist Start: 11-23-2021 take 1 puff(s) by inhalation every four to six hours Albuterol Sulfate Active 2 PUFF INHALATION EVERY 4-6 HOURS November 23, 2021 4:43pm amLODIPine 10 mg oral tablet (20 sources) Dihydropyridine Calcium Channel Drew Start: 05-28-2024 take 1 tablet by mouth in the morning amLODIPine (Norvasc) 10 MG tablet Indications: Benign essential hypertension (CMS/HCC) Take 1 tablet (10 mg) by mouth in the morning. 100 tablet 3 05/28/2024 Active Start: 11-23-2021 take 10 mg by [...] tablet Take 1 mg by mouth Daily. 03/08/2022 Active Anastrozole Acti ve aspirin 81 mg delayed release oral tablet (20 sources) Platelet Aggregation Inhibitor, Nonsteroidal Anti-inflammatory Drug Start: 11-23-2021 take 81 mg by mouth once daily Aspirin Active 81 MG PO Daily November 23, 2021 4:48pm Aspirin 81 Activ e Meagan Aspirin Ac tive atorvastatin 80 mg oral tablet (20 sources) HMG-CoA Reductase Inhibitor Start: 05-28-2024 take 1 tablet by mouth once daily atorvastatin (Lipitor) 80 MG tablet Indications: Mixed hyperlipidemia (CMS/HCC) Take 1 tablet (80 mg) by mouth Daily 100 tablet 3 05/28/2024 Active Start: 11-23-2021 take 80 mg by mouth once daily Atorvastatin Active 80 MG PO Daily November 23, 2021 4:43pm Lipitor Active 24 hr buPROPion hydrochloride 150 mg extended release oral tablet (20 sources) Aminoketone Start: 05-28-2024 take 1 tablet by mouth every twenty-four hours in the morning buPROPion XL (Wellbutrin XL) 150 MG 24 hr tablet Indications: Major depressive disorder, single episode, moderate (HCC) (CMS/HCC) Take 1 tablet (150 mg) by mouth in the morning. 100 tablet 3 05/28/2024 Active Start: 11-23-2021 take 1 tablet by yesica th once daily in the morning Bupropion Hcl (Wellbutrin Xl) 150 mg Tablet Extended Release 24 Hr Active 150 MG PO Every morning November 23, 2021 4:43pm take 1 tablet by yesica th every twenty-four hours in the morning buPROPion XL (Wellbutrin XL) 150 MG 24 hr tablet Take 150 mg by mouth in the morning. 0 Active Wellbutrin XL Ac tive carvedilol 12.5 mg oral tablet (20 sources) alpha-Adrenergic Drew, beta-Adrenergic Drew Start: 05-28-2024 take 1 tablet by mouth in the morning carvedilol (Coreg) 12.5 MG tablet Indications: Benign essential hypertension (CMS/HCC) Take 1 tablet (12.5 mg) by mouth in the morning and 1 tablet (12.5 mg) before bedtime. 200 tablet 3 05/28/2024 Active Start: 11-23-2021 take 1 tablet by yesica th twice daily carvedilol (Coreg) 12.5 MG tablet Indications: Benign essential hypertension (CMS/HCC) TAKE 1 TABLET BY MOUTH TWICE DAILY 200 tablet 3 03/30/2023 Active Coreg Active Carvedilol Activ e clopidogrel 75 mg oral tablet (20 sources) [id number] Platelet Inhibitor Start: 05-28-2024 take 1 tablet by mouth once daily clopidogrel (Plavix) 75 MG tablet Indications: Chronic venous insufficiency Take 1 tablet (75 mg) by mouth Daily 100 tablet 3 05/28/2024 Active Start: 10-22-2023 take 1 tablet by yesica th once daily clopidogrel (Plavix) 75 MG tablet Indications: Chronic venous insufficiency TAKE 1 TABLET BY MOUTH ONCE DAILY 30 tablet 10 10/22/2023 Active Start: 11-23-2021 take 75 mg by mouth once daily in the morning Clopidogrel Active 75 MG PO Every morning November 23, 2021 4:43pm Plavix Active Continuous Glucose Sensor (FreeStyle Yesenia 2 Sensor) [facility] (20 sources) Start: 06-11-2024 Continuous Glucose Sensor (FreeStyle Yesenia 2 Sensor) [facility] [place] Indications: Type 2 diabetes mellitus with diabetic neuropathy, with long-term current use of insulin (CMS/[facility]) 1 Device every 14 (fourteen) days 2 each 06/11/2024 Active docusate sodium 100 mg oral capsule (20 sources) Start: 02-16-2023 take 1 capsule by mouth twice daily as needed for constipation RA Col-Rite 100 MG capsule Take 100 mg by mouth 2 (two) times a day as needed for constipation. 02/16/2023 Active empagliflozin 10 mg oral tablet (20 sources) Sodium-Glucose Cotransporter 2 Inhibitor Start: 05-05-2024 take 1 tablet by mouth once daily empagliflozin (Jardiance) 10 MG Indications: Type 2 diabetes mellitus with hyperglycemia, with long-term current use of insulin (CMS/[facility]) Take 1 tablet (10 mg) by mouth Daily 90 tablet 2 05/05/2024 Active gabapentin 300 mg oral capsule (20 sources) Anti-epileptic Agent Start: 12-31-2023 End: 12-30-2024 take 1 capsule by mouth at bedtime gabapentin (Neurontin) 300 MG capsule Indications: Bilateral carpal tunnel syndrome Take 1 capsule (300 mg) by mouth at bedtime 90 capsule 3 12/31/2023 12/30/2024 Active Start: 11-06-2023 take 1 capsule by mo [facility] at bedtime gabapentin (Neurontin) 300 MG capsule Indications: Bilateral carpal tunnel syndrome Take 1 capsule (300 mg) by mouth at bedtime 30 capsule 0 11/06/2023 Active ibuprofen 600 mg oral tablet (9 sources) Nonsteroidal Anti-inflammatory Drug Start: 12-20-2021 Ibuprofen Active 600 MG PO EVERY 4-6 HOURS 14 07December 20, 2021 11:36am do not exceed 4 doses in a 24 hour period insulin isophane, human 70 unt/ml / insulin, regular, human 30 unt/ml injectable suspension (20 sources) Insulin Start: 03-10-2024 End: 03-10-2025 inject 45 [IU] by subcutaneous injection once daily at mealtime, then inject 60 [IU] by subcutaneous injection at mealtime insulin NPH-insulin regular (NovoLIN 70/30) (70-30) 100 UNIT/ML injection Indications: Type 2 diabetes mellitus with diabetic neuropathy, with long-term current use of insulin (CMS/HCC) Inject 45 Units under the skin Daily with meals AND 60 Units in the evening. Take with meals. 100 mL 3 03/10/2024 03/10/2025 Active 3 ml insulin lispro 25 unt/ml / insulin lispro protamine, human 75 unt/ml pen injector (20 sources) Insulin Analog Start: 02-27-2024 insulin lispro protamine-insulin lispro (HumaLOG Mix 75-25) (75-25) 100 UNIT/ML injection inject 60 units subcutaneously twice a day with meals and inject ... (REFER TO PRESCRIPTION NOTES). 02/27/2024 Active Start: 07-09-2023 insulin lispro protamine-insulin lispro (HumaLOG Mix 75-25) (75-25) 100 UNIT/ML suspension injection Indications: Type 2 diabetes mellitus with hyperglycemia, with long-term current use of insulin (CMS/HCC) Inject 60 Units under the skin Daily with meals AND 45 Units in the evening. Take before meals. 10 mL 0 07/09/2023 Active Insulin Lispro Protamin-Lisp ro (Humalog Mix 75-25 Kwikpen) 100 unit/mL (75-25) [...] mononitrate 30 mg extended release oral tablet (20 sources) Nitrate Vasodilator Start: 02-21-2024 take 1 tablet by mouth once daily in the morning isosorbide mononitrate ER (Imdur) 30 MG 24 hr tablet Indications: Atherosclerosis of [place] coronary artery of [place] heart without angina pectoris (CMS/HCC) take 1 tablet by mouth every morning 30 tablet 2 02/21/2024 Active Start: 11-23-2022 take 1 tablet by yesica th in the morning, then take 1 tablet by mouth every twenty-four hours isosorbide mononitrate ER (Imdur) 30 MG 24 hr tablet Take 30 mg by mouth in the morning. 0 11/23/2022 Active Isosorbide Fackler itrate Active lisinopril 40 mg oral tablet (20 sources) Angiotensin Converting Enzyme Inhibitor Start: 05-28-2024 take 1 tablet by mouth once daily lisinopril 40 MG tablet Indications: Benign essential hypertension (CMS/HCC) Take 1 tablet (40 mg) by mouth Daily 100 tablet 3 05/28/2024 Active Start: 07-26-2023 take 1 tablet by yesica th in the morning lisinopril 40 MG tablet Take 40 mg by mouth in the morning. 0 07/26/2023 Active Start: 11-23-2021 take 10 mg by mouth twice christen y Lisinopril Active 10 MG PO Twice daily November 23, 2021 4:43pm Lisinopril Activ e Zestril Active 24 hr metFORMIN hydrochloride 500 mg extended release oral tablet (20 sources) Biguanide Start: 05-28-2024 take 1 tablet by mouth every twenty-four hours in the morning metFORMIN XR (Glucophage-XR) 500 MG 24 hr tablet Indications: Type 2 diabetes mellitus with diabetic neuropathy, with long-term current use of insulin (CMS/HCC) Take 1 tablet (500 mg) by mouth in the morning and 1 tablet (500 mg) before bedtime. 200 tablet 3 05/28/2024 Active Start: 11-23-2021 take 500 mg by mouth twice eneida ly Metformin Active 500 MG PO Twice daily November 23, 2021 4:54pm take 1 tablet by yesica th every twenty-four hours in the morning metFORMIN XR (Glucophage-XR) 500 MG 24 hr tablet Take 500 mg by mouth in the morning and 500 mg before bedtime. 0 Active metFORMIN HCl Ac tive mometasone furoate 1 mg/ml topical cream (6 sources) Corticosteroid Start: 01-31-2022 Mometasone Act gabe 1 APPLIC TOPICAL Daily 45 January 31, 2022 1:32pm nitroglycerin 0.4 mg sublingual tablet (20 sources) Nitrate Vasodilator nitroglyceri n (Nitrostat) 0.[address] 1 tablet by sublingual route. Active nystatin 100 unt/mg topical powder (20 sources) Polyene Antifungal Start: 09-29-2024 nystatin (N yamyc) [id number] UNIT/GM powder Indications: Candidiasis of skin Apply topically Daily 60 g 2 09/29/2024 Active Start: 03-31-2024 End: 09-29-2024 nystatin (Nyamyc) [id number] UNI T/GM powder Indications: Candidiasis of skin apply to affected area twice a day if needed 60 g 2 03/31/2024 09/29/2024 Discontinued (Reorder) Nyamyc [id number] UN IT/GM powder Nyamyc 100,000 unit/gram topical powder apply to affected area topically twice a day 0 Active OXcarbazepine 300 mg oral tablet (20 sources) Anti-epileptic Agent Start: 02-26-2024 OXcarbaze pine (Trileptal) 300 MG tablet Indications: Neurogenic pain 1 1/2 tabs BID 90 tablet 5 02/26/2024 Active Start: 08-27-2023 OXcarbazepine (Trileptal) 300 MG tablet Indications: Neurogenic pain 1/2 tab AM 1 tab PM, january incr to 1/2 tab BID and 1 tab QHS 60 tablet 2 11/05/2023 Active pantoprazole 40 mg delayed release oral tablet (20 sources) Proton Pump Inhibitor Start: 05-28-2024 take 1 tablet by mouth in the morning pantoprazole (ProtoNix) 40 MG EC tablet Indications: History of gastrointestinal disease Take 1 tablet (40 mg) by mouth in the morning and 1 tablet (40 mg) before bedtime. 200 tablet 3 05/28/2024 Active Start: 08-22-2023 take 1 tablet by yesica th twice daily pantoprazole (ProtoNix) 40 MG EC [...] Lyrica Active spironolactone 25 mg oral tablet (20 sources) Aldosterone Antagonist Start: 03-22-2022 take 1 tablet by mouth in the morning spironolactone (Aldactone) 25 MG tablet Take 25 mg by mouth in the morning. 10/25/2022 Active Spironolactone A ctive triamcinolone acetonide 5 mg/ml topical cream (4 sources) Corticosteroid Start: 08-11-2024 End: 08-21-2024 triamcinolone (Kenalog) 0.5 % cream Indications: Dermatitis Apply topically 3 (three) times a day for 10 days 30 g 08/11/2024 08/21/2024 Active Completed/Discontinued Medications Medication Drug Class(es) Dates Sig (Normalized) Sig (Original) carbamide peroxide 65 mg/ml otic solution (2 sources) Start: 07-09-2024 End: 07-13-2024 carbamide peroxide (Debrox) 6.5 % otic solution Indications: Impacted cerumen of left ear Administer 5 drops into affected ear(s) in the morning and 5 drops before bedtime. Do all this for 4 days. 15 mL 07/09/2024 07/13/2024 Continuous Blood Gluc Sensor (FreeStyle Yesenia 2 Sensor) misc (11 sources) Start: 06-29-2023 End: 06-11-2024 Continuous Blood Gluc Sensor (FreeStyle Yesenia 2 Sensor) [facility] [place] Indications: Type 2 diabetes mellitus with diabetic neuropathy, with long-term current use of insulin ([facility]) 1 Device every 14 (fourteen) days. 2 each 3 06/29/2023 06/11/2024 Discontinued (Reorder) Start: 06-29-2023 Continuous Blo od Gluc Sensor (FreeStyle Yesenia 2 Sensor) mis Indications: Type 2 diabetes mellitus with diabetic neuropathy, with long-term current use of insulin ([facility]) 1 Device every 14 (fourteen) days. 2 each 3 06/29/2023 Active predniSONE 10 mg oral tablet (2 sources) Start: 08-11-2024 End: 08-16-2024 take 1 tablet by mouth in the morning predniSONE (Deltasone) 10 MG tablet Indications: Dermatitis Take 1 tablet (10 mg) by mouth in the morning and 1 tablet (10 mg) at noon. Do all this for 5 days. Take with breakfast and with lunch. 10 tablet 08/11/2024 08/16/2024 tiZANidine 4 mg oral capsule (9 sources) [...] Documented Da te Episodic/Chronic Acute cerebrovascular disease (20 sources) Cerebral infarction, unspecified; Translations: [Cerebral infarction] Onset: 04-28-2018 03-30-2023 Chronic Acute cerebrovascular disease (1 source) NIHSS score 1; Translations: [NIHSS SCORE 1] Onset: 04-28-2018 Acute posthemorrhagic anemia (1 source) Acute posthemorrhagic anemia; Translations: [ACUTE POSTHEMORRHAGIC ANEMIA] Onset: 11-14-2018 Episodic Administrative/social admission (4 sources) Dietary counseling and surveillance; Translations: [Counseling procedure with explicit context] Onset: 04-28-2018 Episodic Allergic reactions (2 sources) Inflammatory dermatosis; Translations: [Dermatitis, unspecified] 08-11-2024 Episodic Anxiety disorders (20 sources) Anxiety disorder; Translations: [Anxiety disorder, unspecified] [...] ENCOUNTER] Onset: 09-05-2018 Congestive heart failure; nonhypertensive (20 sources) Heart failure, unspecified; Translations: [Chronic diastolic (congestive) heart failure] Onset: 04-28-2018 03-30-2023 Chronic Coronary atherosclerosis and other heart disease (20 sources) Old myocardial infarction; Translations: [Atherosclerotic heart disease of [place] coronary artery without angina pectoris] Onset: 11-02-2017 Resolved: 06-27-2023 11-25-2021 Chronic Diabetes mellitus with complications (20 sources) Type 2 diabetes mellitus with hyperglycemia; Translations: [Neuropathy due to type 2 diabetes mellitus] Onset: 04-28-2018 Resolved: 12-31-2023 Chronic Diabetes mellitus with complications (2 sources) Type 2 diabetes mellitus with diabetic neuropathy, unspecified; Translations: [Type 2 diabetes mellitus with diabetic polyneuropathy] Onset: 09-05-2018 Diabetes mellitus without complication (20 sources) Type 1 diabetes mellitus without complications; Translations: [Abnormal metabolic state due to diabetes mellitus] Onset: 05-30-2022 03-30-2023 Chronic Disorders of lipid metabolism (20 sources) Hyperlipidemia, unspecified; Translations: [Hyperlipidemia] Onset: 06-27-2018 03-30-2023 Chronic E Codes: Natural/environment (2 sources) Bitten by cat, initial encounter Episodic Essential hypertension (20 sources) Essential (primary) hypertension; Translations: [Hypertensive disorder] Onset: 06-27-2018 11-25-2021 Chronic Gastrointestinal hemorrhage (20 sources) Chronic gastric ulcer with hemorrhage but [...] Hypertensive emergency; Translations: [HYPERTENSIVE EMERGENCY] Onset: 04-28-2018 Immunity disorders (2 sources) Secondary immune deficiency disorder; Translations: [Immunodeficiency due to conditions classified elsewhere ([facility])] 06-11-2024 Chronic Immunizations and screening for infectious disease (2 sources) Needs influenza immunization; Translations: [Encounter for immunization] 09-10-2024 Episodic Late effects of cerebrovascular disease (20 sources) 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; Translations: [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 affecting unspecified side] Onset: 06-27-2018 03-30-2023 Chronic Menopausal disorders (20 sources) Decreased estrogen level; Translations: [Other primary ovarian failure] Onset: 10-28-2018 03-30-2023 Chronic Mood disorders (20 sources) Moderate major depression, single episode; Translations: [Major depressive disorder, single episode, moderate] Onset: 07-02-2019 03-30-2023 Chronic Mycoses (20 sources) Candidiasis; Translations: [Other sites of candidiasis] Onset: 03-30-2023 03-30-2023 Episodic Nonmalignant breast conditions (20 sources) Mastodynia; Translations: [Pain of right breast] Onset: 07-09-2024 11-25-2021 Episodic Occlusion or stenosis of precerebral arteries (20 sources) Bilateral stenosis of carotid arteries; Translations: [Occlusion and stenosis of bilateral carotid arteries] Onset: 05-22-2023 05-22-2023 Chronic Open wounds of extremities (2 sources) Open bite of other finger without damage to nail, initial encounter Episodic Other aftercare (1 source) supervisor 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; Translations: [[facility] (CURRENT) USE OF ANTITHROMBOTICS/ANTIP LATELETS] Onset: 11-14-2018 Episodic Other aftercare (7 sources) Drug therapy finding; Translations: [Encounter for therapeutic drug level monitoring] 01-13-2022 Episodic Other aftercare (1 source) nursing home (current) use of oral hypoglycemic drugs; Translations: [[employer]EE [employer] (CURRENT) USE OF ORAL HYPOGLYCEMIC DRUGS] Onset: 09-05-2018 Other and ill-defined cerebrovascular disease (20 sources) Cerebral ischemia; Translations: [Cerebral ischemia] Onset: 04-10-2020 03-30-2023 Chronic Other and ill-defined cerebrovascular disease (20 sources) Intracranial aneurysm; Translations: [Cerebral aneurysm, nonruptured] Onset: 02-26-2024 02-26-2024 Chronic Other circulatory disease (20 sources) History of cerebrovascular accident; Translations: [Personal history of transient ischemic attack (TIA), and cerebral infarction without residual deficits] Onset: 07-09-2024 11-25-2021 Episodic Other connective tissue disease (14 sources) Recurrent falls ; Translations: [Repeated falls] 08-11-2024 Episodic Other ear and sense organ disorders (2 sources) Impacted cerumen in left ear; Translations: [Impacted cerumen, left ear] 07-09-2024 Episodic Other gastrointestinal disorders (4 sources) Diarrhea; Translations: [Diarrhea, unspecified] Episodic Other infections; including parasitic (20 sources) Sequelae of infectious disease; Translations: [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] Onset: 05-25-2021 03-30-2023 Chronic Other nervous system disorders (20 sources) Polyneuropathy; Translations: [Polyneuropathy, unspecified] Onset: 02-20-2023 02-20-2023 Chronic Other nervous system disorders (20 sources) Disturbance of attention; Translations: [Attention and concentration deficit] Onset: 03-30-2023 03-30-2023 Chronic Other nervous system disorders (20 sources) Chronic pain; Translations: [Other chronic pain] Onset: 05-25-2021 03-30-2023 Chronic Other nervous system disorders (20 sources) Bilateral carpal tunnel syndrome; Translations: [Carpal tunnel syndrome, bilateral upper limbs] Onset: 05-21-2023 05-21-2023 Chronic Other nervous system disorders (14 sources) Impairment of balance; Translations: [Other abnormalities of gait and mobility] 08-11-2024 Episodic Other nutritional; endocrine; and metabolic disorders (1 source) Obesity, unspecified; Translations: [OBESITY, UNSPECIFIED] Onset: 04-28-2018 Chronic Other nutritional; endocrine; and metabolic disorders (1 source) Body mass index (BMI) 40.0-44.9, adult; Translations: [BODY MASS INDEX (BMI) 40.0-44.9, ADULT] Onset: 04-28-2018 Chronic Other nutritional; endocrine; and metabolic disorders (2 sources) Obesity caused by energy imbalance; Translations: [Morbid (severe) obesity due to excess calories] 06-11-2024 Chronic Other nutritional; endocrine; and metabolic disorders (2 sources) Body mass index 30+ - obesity; Translations: [Body mass index (BMI) 38.0-38.9, adult] 06-11-2024 Chronic Residual codes; unclassified (5 sources) Obstructive sleep apnea (adult) (pediatric); Translations: [OBSTRUCTIVE SLEEP APNEA (ADULT) (PEDIATRIC)] Onset: 11-14-2018 Chronic Residual codes; unclassified (20 sources) Obstructive sleep apnea syndrome; Translations: [Obstructive sleep apnea (adult) (pediatric)] Onset: 06-27-2018 05-21-2023 Chronic Residual codes; unclassified (2 sources) Family history of cancer of colon; Translations: [Family history of malignant neoplasm of digestive organs] Episodic Residual codes; unclassified (1 source) Pain, unspecified; Translations: [Pain, unspecified] Onset: 02-14-2024 Episodic Spondylosis; intervertebral disc disorders; other back problems (20 sources) Cervical spondylosis; Translations: [Spondylosis without myelopathy or radiculopathy, cervical region] Onset: 03-30-2023 03-30-2023 Chronic Spondylosis; intervertebral disc disorders; other back problems (20 sources) Lumbar radiculopathy; Translations: [Radiculopathy, lumbar region] Onset: 05-26-2020 03-30-2023 Episodic Unclassified (2 sources) ANGINA ABNORMAL STRESS TEST Onset: 09-05-2018 Unclassified (1 source) Malignant neoplasm of upper-outer quadrant of left female breast; Translations: [Malignant neoplasm of upper-outer quadrant of left female breast] Onset: 03-22-2022 Unclassified (1 source) Dr. To/Jeramy Cooley Onset: 02-12-2024 Past or Other Problems Problem Classification Problem Date Documented Da te Episodic/Chronic Coronary atherosclerosis and other heart disease (2 sources) Presence of coronary angioplasty implant and graft; Translations: [PRESENCE OF CORONARY ANGIOPLASTY IMPLANT AND GRAFT] Onset: 12-06-201 8 Episodic E Codes: Fall (1 source) Fall from bed, initial encounter; Translations: [FALL FROM BED INITIAL ENCOUNTER] Onset: 2 Episodic Malaise and fatigue (20 sources) Tires quickly; Translations: [Other fatigue] Onset: 0 03-30-2023 Episodic Nonspecific chest pain (9 sources) Chest pain, unspecified; Translations: [Other chest pain] Onset: 8 Episodic Nutritional deficiencies (20 sources) Cobalamin deficiency; Translations: [Deficiency of other specified B group vitamins] Onset: 3 05-22-2023 Episodic Other acquired deformities (20 sources) Retrolisthesis; Translations: [Spondylolisthesis, site unspecified] Onset: 3 03-30-2023 Episodic Other aftercare (2 sources) nursing home (current) use of insulin; Translations: [[facility] (CURRENT) USE OF INSULIN] Onset: 8 Episodic Other aftercare (2 sources) nursing home (current) use of aspirin; Translations: [EMPLOYEE COMMUNICATIONS COORDINATOR (CURRENT) USE OF ASPIRIN] Onset: 8 Episodic Other aftercare (7 sources) Encounter for therapeutic drug level monitoring; Translations: [Encounter for therapeutic drug monitoring] Onset: 2 Episodic Other aftercare (20 sources) Long-term current use of insulin; Translations: [nursing home (current) use of insulin] Onset: 8 03-30-2023 Episodic Other aftercare (1 source) Other superintendent container terminal (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) drug therapy; Translations: [OTH EMPLOYEE COMMUNICATIONS COORDINATOR CURRENT DRUG THERAPY] Onset: 2 Episodic Other aftercare (1 source) nursing home (current) use of oral hypoglycemic drugs; Translations: [[facility] USE ORAL HYPOGLYCEMIC DX] Onset: 2 Episodic Other aftercare (1 source) nursing home (current) use of aromatase inhibitors; Translations: [supervisor intermediates (current) use of aromatase inhibitors] Onset: 2 Episodic Other and ill-defined cerebrovascular disease (20 sources) Cerebral arteriosclerosis; Translations: [Cerebral atherosclerosis] Onset: [...] Onset: 8 Episodic Other connective tissue disease (20 sources) Neurogenic pain; Translations: [Neuralgia and neuritis, unspecified] Onset: 3 02-20-2023 Episodic Other connective tissue disease (20 sources) Muscle weakness; Translations: [Muscle weakness (generalized)] Onset: 0 03-30-2023 Episodic Other connective tissue disease (20 sources) Weakness of hand; Translations: [Other symptoms and signs involving the musculoskeletal system] Onset: 4 11-09-2023 Episodic Other connective tissue disease (20 sources) Transient neurological symptoms; Translations: [Other symptoms and signs involving the nervous system] Onset: 4 02-26-2024 Episodic Other diseases of veins and lymphatics (20 sources) Peripheral venous insufficiency; Translations: [Venous insufficiency (chronic) (peripheral)] Onset: 8 03-30-2023 Episodic Other fractures (1 source) Fracture of one rib, left side, initial encounter for closed fracture; Translations: [FX 1 RIB LT SIDE INITIAL CLOS FX] Onset: 2 Episodic Other gastrointestinal disorders (20 sources) H/O: gastrointestinal disease; Translations: [Personal history of other diseases of the digestive system] Onset: 9 03-30-2023 Episodic Other lower respiratory disease (2 sources) Other forms of dyspnea; Translations: [Other forms of dyspnea] Onset: 4 Episodic Other nervous system disorders (1 source) Anesthesia of skin; Translations: [ANESTHESIA OF SKIN] Onset: 8 Episodic Other nervous system disorders (20 sources) Tremor; Translations: [Tremor, unspecified] Onset: 8 03-30-2023 Episodic Other screening for suspected conditions (not mental disorders or infectious disease) (20 sources) Encounter for screening for osteoporosis; Translations: [...] [ER+]] Onset: 2 Episodic Residual codes; unclassified (20 sources) Amnesia; Translations: [Other amnesia] Onset: 9 03-30-2023 Episodic Results Test Name Value Interpretation Reference Range Facility MR LUMBAR SPINE WO CONTRASTo n 09-12-2024 MR LUMBAR SPINE WO CONTRAST Exam: MR LUMBAR SPINE WO CONTRAST Clinical History: Bilatereal leg weakness, falling for two months Reference Exam: No comparison Technique: Multiplanar MRI evaluation is provided, having been acquired without IV contrast, performed in the dedicated spine coil on 1.5 Sera MRI system. Findings: Normal conus medullaris terminating at T12-L1. Sagittal STIR imaging: No abnormal STIR weighted signal is identified. L1-2: Normal hydration and morphology of the intervertebral disc with anterior endplate spondylosis. Minimal facet arthrosis. Normal central canal, lateral recesses and intervertebral neural foramina with no neurologic impingement. L2-3: Normal hydration and morphology of the intervertebral disc with no endplate spondylosis. Minimal facet arthrosis. Normal central canal, lateral recesses and intervertebral neural foramina with no neurologic impingement. L3-4: Minimal central bulge of disc material. Normal hydration of the intervertebral disc with no endplate spondylosis or facet arthrosis. Normal central canal, lateral recesses and intervertebral neural foramina with no neurologic impingement. L4-5: Disc space height loss. Disc desiccation. Central and left left paracentral disc extrusion. The left disc extrusion engages the intrathecal left L5 nerve root. The central disc extrusion contributes to narrowing of the anterior/posterior canal dimension: 0.4 cm, exacerbated by moderate posterior elemental hypertrophic arthropathic/ligamentous changes. The L4 nerve roots course through patent neuroforamina L5-S1: Disc desiccation. Minor disc space height loss. Central bulge of disc material. S1 nerve roots are appropriately contained in the canal. L5 nerve roots course through patent neuroforamina. The left exiting L5 nerve root is engaged along its undersurface by bulging of the disc into the foramen. Minor posterior elemental hypertrophic arthropathic/ligamentous changes. No canal diameter sequela. There is no spondylolisthesis or spondylolysis. There are no infiltrative or destructive processes. Left renal cysts. Impression: 1. Disc extrusion at the L4-L5 level centrally, and left paracentral in location, engaging the intrathecal left L5 nerve root. 2. Bulging of disc material L5-S1 extending into the left foramen. 3. Canal stenosis at L4-L5 exacerbated by posterior elemental hypertrophic arthropathic/ligamentous changes. 4. Negative for acute compression or other fracture. No subluxation. Dictated on: 09/12/2024 1:05 PM This report has been electronically signed and approved by the interpreting Radiologist. Normal Not Available 37on 09-10-2024 37 *Reduce amlodipine t o 5mg daily Normal [facility] - Hematology and Cell countson 09-10-2024 HbA1c (Bld) [Mass fraction] 7.7 % [facility] No Panel Informationon 09-10 [facility] Office Visiton 09-10-2024 Follow-up visit [id number] Jostin Powell 1955 F Date Provider Department Center 09/10/2024 Lita-EM COREAS CARD Yasir Hos No family history on file Level of Service:08759 SD OFFICE/OUTPATIENT ESTABLISHED MOD [facility] 30 MIN Reason for Visit and Comments: Fall [389727] Extremity Weakness [853189] Normal [facility] No Panel Informationon 07-09 Darrel Edwards NP 07/25/2024 11:09 PM Ear Cerumen Removal Date/Time: 07/09/2024 2:48 PM Performed by: Darrel Edwards NP Authorized by: Darrel Edwards NP Consent: Consent obtained: Verbal Consent given by: Patient Risks, benefits, and alternatives were discussed: yes Risks discussed: Bleeding, infection, pain, dizziness, incomplete removal and TM perforation Alternatives discussed: Alternative treatment [place] protocol: Procedure explained and questions answered to patient or proxy's satisfaction: yes Procedure details: Location: L ear Procedure type: irrigation Procedure type comment: Alternating with irrigation and use of curette Post-procedure details: Inspection: Bleeding, macerated skin and TM intact Hearing quality: Improved Procedure completion: Tolerated well, no immediate complications [facility] - Hematology and Cell countson 06-11-2024 HbA1c (Bld) [Mass fraction] 7.1 % [facility] No Panel Informationon 06-11 [facility] Progress Note - Nutritionon 03-04-2024 Progress Note - Nutrition Ceci is here for her f/u MNT visit. is not here today. Food logs reviewed. Consuming carbs 50-75% of meals as prescribed. Questions r/t carbs and portions answered. Increased physical activity noted. Reviewed carbs in pot pies, tater tots, and fish sticks. Extra money from insurance which allows her to get more groceries. She is also reporting she is sometimes skipping meals. I have encouraged her to consume at least 2 slices of bread to get in approx. 30 grams at a meal. Goal remains: 45/45/60/30. Weight loss 10# from initial weight 2 years ago. 7.4# from november visit. 3.4% weight loss x 3 months. Enc f/u A1C w provider. F/U w RD as needed. Her referral is good for one year. [facility] Physician Referralon 024 Physician Referral [id number]#1.00TIFF [facility] Progress Note - Nutritionon 12-11-2023 Progress [...] added sugars in detail. F/U in January. [facility] Office Visiton 11-19-2023 Follow-up visit [id number] Jostin Powell 1955 F Date Provider Department Center 11/19/2023 [facility] No family history on file Level of Service:36537 SD OFFICE/OUTPATIENT ESTABLISHED MOD MDM 30 MIN Normal [facility] Diabetic Self Management Edu cationon 11-09-2023 Diabetic Self Management Education [id number]#1.00TIFF Normal [facility] Consent for Treatmenton Consent for Treatment [id number]#1.00TIFF Normal [facility] Physician Orderon 10-10-2023 Physician Order [id number]#1.00TIFF Normal [facility] AMYLASEon 02-14-2023 Amylase [Catalytic activity/Vol] 39 U/L Normal 25-115 [facility] Comment on above: Performed By: #### C MP, KAROLINE, LIPA ####[facility] [address] [address]Dr. Manuel Reed CBC AUTO DIFFon 02-14-2023 BASO # 0.0 103/ul Normal 0.0-0.1 [facility] Comment on above: Performed By: #### C BC #### [facility] [address] [address] [address] Manuel Reed Basophils/100 WBC (Bld) 0.5 % Normal 0.2-2.0 [facility] Comment on above: Performed By: #### C BC #### [facility] [address] [address] [address] Manuel Reed EO # 0.3 103/ul Normal 0.0-0.7 [facility] Comment on above: Performed By: #### C BC #### [facility] [address] [address] [address] Manuel Reed Eosinophils/100 WBC (Bld) 3.8 % Normal 0.9-7.0 [facility] Comment on above: Performed By: #### C BC #### [facility] [address] [address] [address] Manuel Reed Erythrocyte distribution width (RBC) [Ratio] 12.9 % Normal 11.0-15.0 [facility] Comment on above: Performed By: #### C BC #### [facility] [address] [place] [address] Dr. Manuel Reed Hematocrit (Bld) [Volume fraction] 43.2 % Normal 36.0-48.0 [facility] Comment on above: Performed By: #### C BC #### [facility] [address] [place] [address] Dr. Manuel Reed Hemoglobin (Bld) [Mass/Vol] 14.2 g/dL Normal 12.0-16.0 [facility] Comment on above: Performed By: #### C BC #### [facility] [address] [place] [address] Dr. Manuel Reed IG # 0.02 10e3/ul Normal 0.00-0.03 [facility] Comment on above: Performed By: #### C BC #### [facility] [address] [place] [address] Dr. Manuel Reed IG % 0.3 % Normal 0.0-0.5 [facility] Comment on above: Performed By: #### C BC #### [facility] [address] [place] [address] Dr. Manuel Reed LYMPH # 2.9 103/ul Normal 1.2-3.8 [facility] Comment on above: Performed By: #### C BC #### [facility] [address] [place] [address] Dr. Manuel Reed Lymphocytes/100 WBC (Bld) 39.5 % Normal 20.5-60.0 [facility] Comment on above: Performed By: #### C BC #### [facility] [address] [place] [address] Dr. Manuel Reed MANUAL DIFF REQ NO Normal [facility] Comment on above: Performed By: #### C BC #### [facility] [address] [place] [address] Dr. Manuel Reed MCH (RBC) [Entitic mass] 29.5 pg Normal 26.7-34.0 [facility] Comment on above: Performed By: #### C BC #### [facility] [address] [place] [address] Dr. Manuel Reed MCHC (RBC) [Mass/Vol] 32.9 g/dL Normal 29.9-35.2 [facility] Comment on above: Performed By: #### C BC #### [facility] [address] [place] [address] Dr. Manuel Reed MCV (RBC) [Entitic vol] 89.8 fL Normal 81.0-99.0 [facility] Comment on above: Performed By: #### C BC #### [facility] [address] [place] [address] Dr. Manuel Reed MONO # 0.7 103/ul Normal 0.3-0.8 [facility] Comment on above: Performed By: #### C BC #### [facility] [address] [place] [address] Dr. Manuel Reed Monocytes/100 WBC (Bld) 10.1 % Normal 1.7-12.0 [facility] Comment on above: Performed By: #### C BC #### [facility] [address] [place] [address] Dr. Manuel Reed NEUT # 3.4 103/ul Normal 1.4-6.5 [facility] Comment on above: Performed By: #### C BC #### [facility] [address] [place] [address] Dr. Manuel Reed Neutrophils/100 WBC (Bld) 45.8 % Normal 43.0-75.0 [facility] Comment on above: Performed By: #### C BC #### [facility] [address] [place] [address] Dr. Manuel Reed Platelet mean volume (Bld) [Entitic vol] 10.6 fL Normal 9.5-13.5 [facility] Comment on above: Performed By: #### C BC #### [facility] [address] [place] [address] Dr. Manuel Reed PLT 259 103/ul Normal 150-450 [facility] Comment on above: Performed By: #### C BC #### [facility] [address] [place], [place] [address] Dr. Manuel Reed RBC 4.81 106/ul Normal 4.20-5.40 [facility] Comment on above: Performed By: #### C BC #### [facility] [address] [place], [place] [address] Dr. Manuel Reed WBC 7.4 103/ul Normal 4.0-11.0 [facility] Comment on above: Performed By: #### C BC #### [facility] [address] [place], [place] [address] ABD/PELV W CONon [...] DIANA BUI Date: 2023-02-14 02:48 Normal [facility] ER URINE PROFILEon 3 Bilirubin Ql (U) Negative Normal NEGATIVE [facility] Comment on above: Performed By: #### U MICRO, ERUR #### [facility] [address] [place] [address] Dr. Manuel Reed Clarity (U) CLEAR Normal CLEAR [facility] Comment on above: Performed By: #### U MICRO, ERUR #### [facility] [address] [place] [address] Dr. Manuel Reed Color (U) LT. YELLOW Normal YELLOW [facility] Comment on above: Performed By: #### U MICRO, ERUR #### [facility] [address] [place] [address] Dr. Manuel Reed ERUAHD A micrscopic examina tion will be performed if indicated. Normal [facility] Comment on above: Performed By: #### U MICRO, ERUR #### [facility] [address] [address] [address] Manuel Reed Glucose Ql (U) 1000 mg/dl Abnormal NEGATIVE [facility] Comment on above: Performed By: #### U MICRO, ERUR #### [facility] [address] [address] [address] Manuel Reed Hemoglobin Ql (U) LARGE Abnormal NEGATIVE [facility] Comment on above: Performed By: #### U MICRO, ERUR #### [facility] [address] [place] [address] Dr. Manuel Reed Ketones Ql (U) Negative Normal NEGATIVE [facility] Comment on above: Performed By: #### U MICRO, ERUR #### [facility] [address] [address] [address] Manuel Reed LEUKOCYTES TRACE Abnormal NEGATIVE [facility] Comment on above: Performed By: #### U MICRO, ERUR #### [facility] [address] [address] [address] Manuel Reed Nitrite Ql (U) Negative Normal NEGATIVE [facility] Comment on above: Performed By: #### U MICRO, ERUR #### [facility] [address] [place] [address] Dr. Manuel Reed pH (U) 5.5 [pH] Normal 5-9 [facility] Comment on above: Performed By: #### U MICRO, ERUR #### [facility] [address] [place] [address] Dr. Manuel Reed SPEC GRAVITY 1.015 Normal 1.005-<=1.0 25 [facility] Comment on above: Performed By: #### U MICRO, ERUR #### [facility] [address] [place] [address] Dr. Manuel Reed UA PROTEIN Negative Normal NEGATIVE/ TRACE [facility] Comment on above: Performed By: #### U MICRO, ERUR #### [facility] [address] [place] [address] Dr. Manuel Reed UR MICRO IND INDICATED Normal [facility] Comment on above: Performed By: #### U MICRO, ERUR #### [facility] [address] [place] [address] Dr. Manuel Reed Urobilinogen Qn (U) 0.2 {Seven'U}/dL Normal 0.2 - 1. 0 [facility] Comment on above: Performed By: #### U MICRO, ERUR #### [facility] [address] [place] [address] Dr. Manuel Reed LACTATE/LACTIC ACIDon 2022 Lactate [Moles/Vol] 2.5 mmol/L Critically high 0.4-2.0 [facility] Comment on above: Performed By: #### L ACT #### [facility] [address] [address] [address] Manuel Reed LIPASEon 02-14-2023 Lipase [Catalytic activity/Vol] 167.0 U/L Normal 73.0-393.0 [facility] Comment on above: Performed By: #### C MP, KAROLINE, LIPA ####[facility] [id number] [address]DrScott Reed PROF 14(COMP METB)on 023 Albumin [Mass/Vol] 3.2 g/dL Critically low 3.4-5.0 [facility] Comment on above: Performed By: #### C MP, KAROLINE, LIPA ####[facility] [address] [place] [address]DrcSott Reed Albumin/Globulin [Mass ratio] 0.8 {ratio} Normal [facility] Comment on above: Performed By: #### C MP, KAROLINE, LIPA ####[facility] [id number] [place] [address]DrScott Reed ALP [Catalytic activity/Vol] 113 U/L Normal 46-116 [facility] Comment on above: Performed By: #### C MP, KAROLINE, LIPA ####[facility] [id number] [place] [address]DrScott Reed ALT [Catalytic activity/Vol] 42 U/L Normal 14-59 [facility] Comment on above: Performed By: #### C MP, KAROLINE, LIPA ####[facility] [address] [place] [address]DrScott Reed Anion gap [Moles/Vol] 16.1 mmol/L Normal [facility] Comment on above: Performed By: #### C MP, KAROLINE, LIPA ####[facility] [address] [place] [address]DrScott Reed AST [Catalytic activity/Vol] 21 U/L Normal 15-37 [facility] Comment on above: Performed By: #### C MP, KAROLINE, LIPA ####[facility] [address] [place] [address]DrScott Reed Bilirubin [Mass/Vol] 0.2 mg/dL Normal 0.2-1.0 [facility] Comment on above: Performed By: #### C MP, KAROLINE, LIPA ####[facility] [id number] [place] [address]Dr. Manuel Reed Calcium [Mass/Vol] 9.3 mg/dL Normal 8.5-10.1 [facility] Comment on above: Performed By: #### C MP, KAROLINE, LIPA ####[facility] [address] [place] [address]Dr. Manuel Reed Chloride [Moles/Vol] 102 mmol/L Normal 98-107 [facility] Comment on above: Performed By: #### C MP, KAROLINE, LIPA ####[facility] [address] [place], [place] [address]Dr. Manuel Reed CO2 [Moles/Vol] 26.5 mmol/L Normal 21.0-32.0 [facility] Comment on above: Performed By: #### C MP, KAROLINE, LIPA ####[facility] [id number] [address] [place], [place] [address]Dr. Manuel Reed Creatinine [Mass/Vol] 1.15 mg/dL Critically high 0.55-1.02 [facility] Comment on above: Performed By: #### C MP, KAROLINE, LIPA ####[facility] [address] [place] [address]Dr. Manuel Reed EGFR-AF KUWAITI 57 mL/min/1.73m2 Critically low >=60 [facility] Comment on above: Performed By: #### C MP, KAROLINE, LIPA ####[facility] [address] [place] [address]Dr. Manuel Reed EGFR-NON AF KUWAITI 47 mL/min/1.73m2 Critically low >=60 [facility] Comment on above: Performed By: #### C MP, KAROLINE, LIPA ####[facility] [address] [place] [address]Dr. Manuel Reed Globulin (S) [Mass/Vol] 4.2 g/dL Normal [facility] Comment on above: Performed By: #### C NORTH KAROLINE, LIPA ####[facility] [address] [place] [address]Dr. Manuel Reed Glucose [Mass/Vol] 396 mg/dL Critically high 74-106 T [facility] Comment on above: Performed By: #### C MP KAROLINE, LIPA ####[facility] [address] [place] [address]Dr. Manuel Reed Potassium [Moles/Vol] 4.6 mmol/L Normal 3.5-5.1 [facility] Comment on above: Performed By: #### C NORTH KAROLINE, LIPA ####[facility] [address] [place] [address]Dr. Manuel Reed Protein [Mass/Vol] 7.4 g/dL Normal 6.4-8.2 [facility] Comment on above: Performed By: #### C NORTH KAROLINE, LIPA ####[facility] [address] [place] [address]Dr. Manuel Reed Sodium [Moles/Vol] 140 mmol/L Normal 136-145 [facility] Comment on above: Performed By: #### C KAROLINE KAT, LIPA ####[facility] [address] [place] [address]Dr. Manuel Reed Urea nitrogen [Mass/Vol] 21.0 mg/dL Critically high 7.0-18.0 [facility] Comment on above: Performed By: #### C NORTH KAROLINE, LIPA ####[facility] [address] [place] [address]Dr. Manuel Reed Urea nitrogen/Creatinine [Mass ratio] 18.3 mg/mg Normal [facility] Comment on above: Performed By: #### C KAROLINE KAT, LIPA ####[facility] [address] [place] [address]Dr. Manuel Reed PROTIMEon 02-14-2023 INR Coag (PPP) [Relative time] 0.97 {INR} Normal [facility] Comment on above: Performed By: #### P TT, PT ####[facility] [address] [place] [address]Dr. Manuel Reed INR GUIDELINES SEE BELOW Normal The [facility] Comment on above: Result Comment: AKHIL RED INR: 2.0 - 3.0 CONDITIONS NOT LISTED BELOW 2.5 - 3.5 FOR PROSTHETIC HEART VALVE REPLACEMENT 2.5 - 3.5 RECURRENT THROMBOSIS Performed By: #### P TT, PT ####[facility] [address] [place] [address]Dr. Manuel Reed PT Coag (PPP) [Time] 10.3 s Normal 9.0-11.6 [facility] Comment on above: Performed By: #### P TT, PT ####[facility] [address] [place] [address]Dr. Manuel Reed PTTon 02-14-2023 aPTT Coag (Bld) [Time] 25.7 s Normal 22.3-36.2 [facility] Comment on above: Performed By: #### P TT, PT ####[facility] [address] [place] [address]Dr. Manuel Reed URINE MICROSCOPIC ONLYon BACTERIA TRACE Abnormal NONE SEEN [facility] Comment on above: Performed By: #### U MICRO, ERUR #### [facility] [address] [place] [address] Dr. Manuel Reed Bacteria identified Cx Nom (U) NOT INDICATED Normal [facility] Comment on above: Performed By: #### U MICRO, ERUR #### [facility] [address] [address] [address] Manuel Reed CAST NONE SEEN Normal NONE SEEN [facility] Comment on above: Performed By: #### U MICRO, ERUR #### [facility] [address] [address] [address] Manuel Reed Crystals LM Nom (Urine sed) NONE SEEN Normal NONE SEEN [facility] Comment on above: Performed By: #### U MICRO, ERUR #### [facility] [address] [place] [address] Dr. Manuel Reed Epithelial cells LM Ql (Urine sed) RARE Normal NONE SEEN /RARE [facility] Comment on above: Performed By: #### U MICRO, ERUR #### [facility] [address] [address] [address] Manuel Reed MUCOUS NONE SEEN Normal NONE SEEN [facility] Comment on above: Performed By: #### U MICRO, ERUR #### [facility] [address] [address] [address] Manuel Reed RBC 0-2 Normal 0-2 [facility] Comment on above: Performed By: #### U MICRO, ERUR #### [facility] [address] [address] [address] Manuel Rede WBC 0-2 Abnormal NONE SEEN [facility] Comment on above: Performed By: #### U MICRO, ERUR #### [facility] [address] [address] [address] Manuel Reed MG MAMM DIAGNOSTIC 3D TIFFANY CA Don 01-04-2023 MG MAMM DIAGNOSTIC 3D TIFFANY CAD Patient: KYLE POWELL Exam Date: 01/04/2023 : 1955 Gender:F Ordering : DR FARAZ OSMAN M.D. Admission #: [id number] Family : Order #: [id number] CLICK HERE TO VIEW EXAM RADIOLOGY REPORT [...] colon cancer at age 60. LOCATION: [facility] BREAST COMPOSITION: Scattered areas fibroglandular [...] Benavides M.D. on 01/04/2023 at 14:48 Normal [facility] NM STRESS/REST MULTIon 11-06 NM STRESS/REST MULTI Patient: HOLLI POWELL Exam Date: 11/06/2022 : 1955 Gender:F Ordering : DR GARRETT MCDONALD M.D. Admission #: [id number] Family : DR FARAZ OSMAN M.D. Order #: [id number] CLICK HERE TO VIEW EXAM RADIOLOGY REPORT PROCEDURE: RADIONUCLIDE IMAGING STRESS/REST MULTI COMPARISON: [place] STRESS/REST MULTI, 09/04/2018. INDICATIONS: Chest pain, coronary [...] MD on 11/07/2022 at 08:12 Normal [facility] CBC AUTO DIFFon 05-29-2022 BASO # 0.0 103/ul Normal 0.0-0.1 [facility] Comment on above: Performed By: #### C BC ####[facility] Eq[address] [place], [place] [address]Dr. Tricarlos Reed Basophils/100 WBC (Bld) 0.3 % Normal 0.2-2.0 [facility] Comment on above: Performed By: #### C BC ####[facility] [address] [place], [place] [address]Dr. Manuel Reed EO # 0.2 103/ul Normal 0.0-0.7 [facility] Comment on above: Performed By: #### C BC ####[facility] [address] [place], [place] [address]Dr. Manuel Reed Eosinophils/100 WBC (Bld) 3.1 % Normal 0.9-7.0 [facility] Comment on above: Performed By: #### C BC ####[facility] [address] [place], [place] [address]Dr. Manuel Reed Erythrocyte distribution width (RBC) [Ratio] 13.0 % Normal 11.0-15.0 [facility] Comment on above: Performed By: #### C BC ####[facility] [address] [place], [place] [address]Dr. Manuel Reed Hematocrit (Bld) [Volume fraction] 42.5 % Normal 36.0-48.0 [facility] Comment on above: Performed By: #### C BC ####[facility] [address] [place], [place] [address]Dr. Manuel Reed Hemoglobin (Bld) [Mass/Vol] 13.8 g/dL Normal 12.0-16.0 [facility] Comment on above: Performed By: #### C BC ####[facility] [address] [place], [place] [address]Dr. Manuel Reed IG # 0.02 10e3/ul Normal 0.00-0.03 [facility] Comment on above: Performed By: #### C BC ####[facility] [address] [place] [id number]. Manuel Reed IG % 0.3 % Normal 0.0-0.5 [facility] Comment on above: Performed By: #### C BC ####[facility] [address] [place] [id number]. Manuel Reed LYMPH # 2.5 103/ul Normal 1.2-3.8 [facility] Comment on above: Performed By: #### C BC ####[facility] [address] [place] [id number]. Manuel Reed Lymphocytes/100 WBC (Bld) 38.2 % Normal 20.5-60.0 [facility] Comment on above: Performed By: #### C BC ####[facility] [address] [place] [id number]. Manuel Reed MANUAL DIFF REQ NO Normal [facility] Comment on above: Performed By: #### C BC ####[facility] [address]zyj[address] [place] [id number]. Manuel Reed MCH (RBC) [Entitic mass] 29.9 pg Normal 26.7-34.0 [facility] Comment on above: Performed By: #### C BC ####[facility] [address] [place] [id number]. Manuel Reed MCHC (RBC) [Mass/Vol] 32.5 g/dL Normal 29.9-35.2 [facility] Comment on above: Performed By: #### C BC ####[facility] [address] [place] [phone]. Manuel Reed MCV (RBC) [Entitic vol] 92.0 fL Normal 81.0-99.0 [facility] Comment on above: Performed By: #### C BC ####[facility] [address] [place] [id number]. Manuel Reed MONO # 0.6 103/ul Normal 0.3-0.8 [facility] Comment on above: Performed By: #### C BC ####[facility] [address] [place] [id number]. Manuel Reed Monocytes/100 WBC (Bld) 8.9 % Normal 1.7-12.0 [facility] Comment on above: Performed By: #### C BC ####[facility] [address] [place] [id number]. Manuel Reed NEUT # 3.2 103/ul Normal 1.4-6.5 [facility] Comment on above: Performed By: #### C BC ####[facility] [address] [place] [address]Dr. Manuel Reed Neutrophils/100 WBC (Bld) 49.2 % Normal 43.0-75.0 [facility] Comment on above: Performed By: #### C BC ####[facility] [address] [place] [address]Dr. Manuel Reed Platelet mean volume (Bld) [Entitic vol] 10.8 fL Normal 9.5-13.5 [facility] Comment on above: Performed By: #### C BC ####[facility] [address]bc[address] [place] [id number]. Manuel Reed PLT 203 103/ul Normal 150-450 [facility] Comment on above: Performed By: #### C BC ####[facility] [address] [place] [address]Dr. Manuel Reed RBC 4.62 106/ul Normal 4.20-5.40 [facility] Comment on above: Performed By: #### C BC ####[facility] [address] [place], [place] [address]Dr. Manuel Reed WBC 6.6 103/ul Normal 4.0-11.0 [facility] Comment on above: Performed By: #### C BC ####[facility] [address] [place] [address]Dr. Manuel Reed PROF 14(COMP METB)on 022 Albumin [Mass/Vol] 3.5 g/dL Normal 3.4-5.0 [facility] Comment on above: Performed By: #### C MP, HSTROPN #### [facility] [address] [address] [address] Manuel Reed Albumin/Globulin [Mass ratio] 0.8 {ratio} Normal [facility] Comment on above: Performed By: #### C MP, HSTROPN #### [facility] [address] [address] [address] Manuel Reed ALP [Catalytic activity/Vol] 81 U/L Normal 46-116 [facility] Comment on above: Performed By: #### C MP, HSTROPN #### [facility] [address] [address] [address] Manuel Reed ALT [Catalytic activity/Vol] 38 U/L Normal 14-59 [facility] Comment on above: Performed By: #### C MP, HSTROPN #### [facility] [address] [address] [address] Manuel Reed Anion gap [Moles/Vol] 13.0 mmol/L Normal [facility] Comment on above: Performed By: #### C MP, HSTROPN #### [facility] [address] [address] [address] Manuel Reed AST [Catalytic activity/Vol] 25 U/L Normal 15-37 [facility] Comment on above: Performed By: #### C MP, HSTROPN #### [facility] [address] [address] [address] Manuel Reed Bilirubin [Mass/Vol] 0.3 mg/dL Normal 0.2-1.0 [facility] Comment on above: Performed By: #### C MP, HSTROPN #### [facility] [address] [address] [address] Manuel Reed Calcium [Mass/Vol] 9.6 mg/dL Normal 8.5-10.1 [facility] Comment on above: Performed By: #### C MP, HSTROPN #### [facility] [address] [address] [address] Manuel Reed Chloride [Moles/Vol] 101 mmol/L Normal 98-107 [facility] Comment on above: Performed By: #### C MP, HSTROPN #### [facility] [address] [address] [address] Manuel Reed CO2 [Moles/Vol] 27.1 mmol/L Normal 21.0-32.0 [facility] Comment on above: Performed By: #### C MP, HSTROPN #### [facility] [address] [place] [address] Dr. Manuel Reed Creatinine [Mass/Vol] 0.93 mg/dL Normal 0.55-1.02 [facility] Comment on above: Performed By: #### C MP, HSTROPN #### [facility] [address] [place] [address] Dr. Manuel Reed EGFR-AF KUWAITI >60 Normal >=60 [facility] Comment on above: Performed By: #### C MP, HSTROPN #### [facility] [address] [place] [address] Dr. Manuel Reed EGFR-NON AF KUWAITI =60 Normal >=60 [facility] Comment on above: Performed By: #### C MP, HSTROPN #### [facility] [address] [place] [address] Dr. Manuel Reed Globulin (S) [Mass/Vol] 4.2 g/dL Normal [facility] Comment on above: Performed By: #### C MP, HSTROPN #### [facility] [address] [place] [address] Dr. Manuel Reed Glucose [Mass/Vol] 280 mg/dL Critically high 74-106 T [facility] Comment on above: Performed By: #### C MP, HSTROPN #### [facility] [address] [place] [address] Dr. Manuel Reed Potassium [Moles/Vol] 4.1 mmol/L Normal 3.5-5.1 [facility] Comment on above: Performed By: #### C MP, HSTROPN #### [facility] [address] [place] [address] Dr. Manuel Reed Protein [Mass/Vol] 7.7 g/dL Normal 6.4-8.2 [facility] Comment on above: Performed By: #### C NORTH, HSTROPN #### [facility] [address] [address] [address] Manuel Reed Sodium [Moles/Vol] 137 mmol/L Normal 136-145 [facility] Comment on above: Performed By: #### C NORTH, HSTROPN #### [facility] [address] [address] [address] Manuel Reed Urea nitrogen [Mass/Vol] 21.0 mg/dL Critically high 7.0-18.0 [facility] Comment on above: Performed By: #### C NORTH, HSTROPN #### [facility] [address] [address] [address] Manuel Reed Urea nitrogen/Creatinine [Mass ratio] 22.6 mg/mg Normal [facility] Comment on above: Performed By: #### C NORTH, HSTROPN #### [facility] [address] [address] [address] Manuel Reed TROPONIN, HIGH SENSITIVITYon 05-29-2022 HSTROP 8.1 pg/mL Normal 4.0-51.3 [facility] Comment on above: Result Comment: CUT- OFF POINTS HAVE BEEN ESTABLISHED BASED ON THE FOURTH UNIVERSAL DEFINITIONS OF MYOCARDIAL INFARCTION. THE UPPER REFERENCE LIMIT (URL) OF TROPONIN, DEFINED THE 99TH PERCENTILE OF cTnI DISTRIBUTION IN A REFERENCE POPULATION, HAS BEEN CONFIRMED THE DECISION THRESHOLD FOR NM DIAGNOSIS. Performed By: #### C NORTH, HSTROPN #### [facility] [address] [place] [address] Dr. Manuel Reed XR RIBS LT PA [...] left eighth rib Electronically authenticated by: DIAMOND MANDEEPDENISE Date: 2022-05-29 18:37 Normal [facility] PROF CHEM 8 (BAS METB)on Anion gap [Moles/Vol] 14.1 mmol/L Normal [facility] Comment on above: Performed By: #### B MP #### [facility] [address] [address] [address] Manuel Reed Calcium [Mass/Vol] 8.9 mg/dL Normal 8.5-10.1 [facility] Comment on above: Performed By: #### B MP #### [facility] [address] [address] [address] Manuel Reed Chloride [Moles/Vol] 100 mmol/L Normal 98-107 [facility] Comment on above: Performed By: #### B MP #### [facility] [address] [address] [address] Manuel Reed CO2 [Moles/Vol] 26.4 mmol/L Normal 21.0-32.0 [facility] Comment on above: Performed By: #### B MP #### [facility] [address] [address] [address] Manuel Reed Creatinine [Mass/Vol] 0.94 mg/dL Normal 0.55-1.02 [facility] Comment on above: Performed By: #### B MP #### [facility] [address] [address] [address] Manuel Reed EGFR-AF KUWAITI >60 Normal >=60 [facility] Comment on above: Performed By: #### B MP #### [facility] [id number] Manuel Reed EGFR-NON AF KUWAITI 60 mL/min/1.73m2 Normal >=60 [facility] Comment on above: Performed By: #### B MP #### [facility] [address] [address] [address] Manuel Reed Glucose [Mass/Vol] 336 mg/dL Critically high 74-106 T [facility] Comment on above: Performed By: #### B MP #### [facility] [address] [address] [address] Manuel Reed Potassium [Moles/Vol] 4.5 mmol/L Normal 3.5-5.1 [facility] Comment on above: Performed By: #### B MP #### [facility] [address] [address] [address] Manuel Reed Sodium [Moles/Vol] 136 mmol/L Normal 136-145 [facility] Comment on above: Performed By: #### B MP #### [facility] [address] [address] [address] Manuel Reed Urea nitrogen [Mass/Vol] 12.0 mg/dL Normal 7.0-18.0 [facility] Comment on above: Performed By: #### B MP #### [facility] [address] [address] [address] Manuel Reed Urea nitrogen/Creatinine [Mass ratio] 12.8 mg/mg Normal [facility] Comment on above: Performed By: #### B MP #### [facility] [address] [address] [address] Manuel Reed Glucose Glucometer (BldC) [M ass/Vol]Ordered By: Jac Hemphill on 12-20-2021 Glucose [Mass/Vol] 181 mg/dL [facility] Comment on above: Random Glucose Refer ence Range is dependent on time and content of last meal. Glucose of more than 200 mg/dL in a nonstressed, ambulatory subject supports the diagnosis of Diabetes Mellitus. No Panel InformationOrdered By: Jac Hemphill on 12-20-2021 Bedside Glucose Comment Glu2: cleaned meter [facility] COVID-19 Positive/NegativeOr dered By: Jac Hemphill on 12-16-2021 SARS-CoV-2 (COVID-19) N gene DUYEN+probe Ql (Resp) Negative Negative [facility] Comment on above: Testing for SARS-CoV -2 by RT-PCRThis test was developed and its performance characteristics determined by [employer] ([employer]) and validated at the [facility]. This test has not been FDA [...] and its performance characteristics determined by [employer] ([employer]) and validated at the [facility]. This test has not been FDA [...] 12-06-2021 Basophils (Bld) [#/Vol] 0.0 10*3/uL 0.0-0.2 [facility] Basophils/100 WBC Auto (Bld) Ordered By: Jac Hemphill on 12-06-2021 Basophils/100 WBC (Bld) 0.4 % [facility] Blood hemoglobin measurement (mass/volume)Ordered By: Jac Hemphill on 12-06-2021 Hemoglobin (Bld) [Mass/Vol] 14.9 g/dL 11.8-15.4 [facility] Blood leukocytes automated c ount (number/volume)Ordered By: Jac Hemphill on 12-06-2021 WBC (Bld) [#/Vol] 9.1 10*3/uL 4.5-11.0 [facility] Creatinine and Glomerular fi ltration rate.predicted panel (S/P/Bld)Ordered By: Jac Hemphill on 12-06-2021 Creatinine [Mass/Vol] 0.75 mg/dL 0.44-1.03 [facility] Eosinophils Auto (Bld) [#/Vo l]Ordered By: Jac Hemphill on 12-06-2021 Eosinophils (Bld) [#/Vol] 0.2 10*3/uL 0.0-0.45 [facility] Eosinophils/100 WBC Auto (Bl d)Ordered By: Jac Hemphill on 12-06-2021 Eosinophils/100 WBC (Bld) 1.8 % [facility] Erythrocyte distribution wid th Auto (RBC) [Ratio]Ordered By: Jac Hemphill on 12-06-2021 Erythrocyte distribution width (RBC) [Ratio] 13.7 % 11.9-15.3 [facility] Estimated glomerular filtrat ion rate (GFR) non- AmericanOrdered By: Jac Hemphill on 12-06-2021 GFR/1.73 sq M.predicted among non-blacks MDRD (S/P/Bld) [Vol rate/Area] > 60 mL/Min [facility] Hematocrit Auto (Bld) [Volum e fraction]Ordered By: Jac Hemphill on 12-06-2021 Hematocrit (Bld) [Volume fraction] 44.3 % 34.0-46.4 [facility] Laboratory - Hematology and Cell countsOrdered By: Jac Hemphill on 12-06-2021 Nucleated RBC/100 WBC (Bld) [Ratio] 0.1 % 0-0.5 [facility] Lymphocytes Auto (Bld) [#/Vo l]Ordered By: Jac Hemphill on 12-06-2021 Lymphocytes (Bld) [#/Vol] 2.8 10*3/uL 1.00-4.8 [facility] Lymphocytes/100 WBC Auto (Bl d)Ordered By: Jac Hemphill on 12-06-2021 Lymphocytes/100 WBC (Bld) 30.8 % [facility] MCH Auto (RBC) [Entitic mass ]Ordered By: Jac Hemphill on 12-06-2021 MCH (RBC) [Entitic mass] 30.0 pg 24.7-34.3 [facility] MCHC Auto (RBC) [Mass/Vol]Or dered By: Jac Hemphill on 12-06-2021 MCHC (RBC) [Mass/Vol] 33.8 g/dL 32.0-35.0 [facility] MCV Auto (RBC) [Entitic vol] Ordered By: Jac Hemphill on 12-06-2021 MCV (RBC) [Entitic vol] 88.9 fL 80-100 [facility] Monocytes Auto (Bld) [#/Vol] Ordered By: Jac Hemphill on 12-06-2021 Monocytes (Bld) [#/Vol] 0.8 10*3/uL 0.0-0.8 [facility] Monocytes/100 WBC Auto (Bld) Ordered By: Jac Hemphill on 12-06-2021 Monocytes/100 WBC (Bld) 8.3 % [facility] Neutrophils Auto (Bld) [#/Vo l]Ordered By: Jac Hemphill on 12-06-2021 Neutrophils (Bld) [#/Vol] 5.4 10*3/uL 1.8-7.7 [facility] Neutrophils/100 WBC Auto (Bl d)Ordered By: Jac Hemphill on 12-06-2021 Neutrophils/100 WBC (Bld) 58.7 % [facility] No Panel InformationOrdered By: Jac Hemphill on 12-06-2021 Estimated GFR () > 60 mL/Min [facility] Comment on above: GFR estimated refere nce range: According to KDOQI guidelines, <60 ml/min/1.73m2 is sufficient to diagnose a patient with chronic kidney disease. Pharmacy Creatinine Clearance (Chem N/A [facility] Platelet mean volume Auto (B ld) [Entitic vol]Ordered By: Jac Hemphill on 12-06-2021 Platelet mean volume (Bld) [Entitic vol] 8.7 fL 6.3-10.7 [facility] Platelets Auto (Bld) [#/Vol] Ordered By: Jac Hemphill on 12-06-2021 Platelets (Bld) [#/Vol] 284 10*3/uL 150-450 [facility] RBC Auto (Bld) [#/Vol]Ordere d By: Jac Hemphill on 12-06-2021 RBC (Bld) [#/Vol] 4.98 10*6/uL 3.60-5.00 [facility] Serum or plasma calcium alis urement (mass/volume)Ordered By: Jac Hemphill on 12-06-2021 Calcium [Mass/Vol] 9.5 mg/dL 8.2-10.2 [facility] Serum or plasma chloride eduardo surement (moles/volume)Ordered By: Jac Hemphill on 12-06-2021 Chloride [Moles/Vol] 96 mmol/L 95-114 [facility] Serum or plasma glucose alis urement (mass/volume)Ordered By: Jac Hemphill on 12-06-2021 Glucose [Mass/Vol] 285 mg/dL 70-100 [facility] Comment on above: ADA recommended refe [...] on 12-06-2021 Potassium [Moles/Vol] 4.6 mmol/L 3.5-5.1 [facility] Serum or plasma sodium measu rement (moles/volume)Ordered By: Jac Hemphill on 12-06-2021 Sodium [Moles/Vol] 135 mmol/L 136-146 [facility] Serum or plasma total carbon dioxide measurement (moles/volume)Ordered By: Jac Hemphill on 12-06-2021 CO2 [Moles/Vol] 24.9 mmol/L 22.0-30.0 [facility] Serum or plasma urea nitroge n measurement (mass/volume)Ordered By: Jac Hemphill on 12-06-2021 Urea nitrogen [Mass/Vol] 13 mg/dL 9- [facility] BASIC METABOLIC PANELon 11-01 Calcium mass conc 8.6 mg/dL Normal 8.6-10.3 [facility] Comment on above: Order Comment: No: D o not add to previous draw Performed By: #### 5 0608 #### [facility] [address] [place] [address], [facility] Chloride molar conc 107 mmol/L Normal 98-107 [facility] Comment on above: Order Comment: No: D o not add to previous draw Performed By: #### 5 0608 #### [facility] [address] [facility] [place] [address], [facility] CO2 molar conc 26 mmol/L Normal 21-31 [facility] Comment on above: Order Comment: No: D o not add to previous draw Performed By: #### 5 0608 #### [facility] [address] [place] [address], [facility] Creatinine mass conc 0.95 mg/dL Normal 0.60-1.20 [facility] Comment on above: Order Comment: No: D o not add to previous draw Performed By: #### 5 0608 #### [facility] [address] [place] [address], [place] GFR/1.73 sq M predicted among blacks MDRD vol rate/area (S/P/Bld) mL/min/{1.73_m2} Normal >60 [facility] Comment on above: Order Comment: No: D o not add to previous draw Performed By: #### 5 0608 #### [facility] [address] [place] [address], [place] GFR/1.73 sq M predicted among non-blacks MDRD vol rate/area (S/P/Bld) 59 ml/min/1.73sq m Abnormal >60 [facility] Comment on above: Order Comment: No: D o not add to previous draw Performed By: #### 5 0608 #### [facility] [address] [place] [address], [place] Glucose mass conc 177 mg/dL High 70-100 [facility] Comment on above: Order Comment: No: D o not add to previous draw Performed By: #### 5 0608 #### [facility] [address] [place] [address], [place] Potassium molar conc 3.8 mmol/L Normal 3.5-5.1 [facility] Comment on above: Order Comment: No: D o not add to previous draw Performed By: #### 5 0608 #### [facility] [address] [place] [address], [place] Sodium molar conc 139 mmol/L Normal 136-145 [facility] Comment on above: Order Comment: No: D o not add to previous draw Performed By: #### 5 0608 #### [facility] [address] [place] [address], [place] Urea nitrogen mass conc 13 mg/dL Normal 7-25 [facility] Comment on above: Order Comment: No: D o not add to previous draw Performed By: #### 5 0608 #### [facility] [address] [place] [address], [facility] CBC W/DIFFon 11-18-2018 ABS BASOPHILS 0.0 10*3/uL Normal 0.0-0.2 [facility] Comment on above: Order Comment: No: D o not add to previous draw Performed By: #### 5 0608 #### [facility] [address] [place] [address], [facility] ABS IMM GRANS 0.1 10*3/uL Normal 0.0-0.2 [facility] Comment on above: Order Comment: No: D o not add to previous draw Performed By: #### 5 0608 #### [facility] [address] [place] [address], [facility] ABS NEUTROPHILS 3.8 10*3/uL Normal 1.6-7.6 [facility] Comment on above: Order Comment: No: D o not add to previous draw Performed By: #### 5 0608 #### [facility] [address] [place] [address], [facility] Basophils #/vol (Bld) 0.3 % Normal 0.0-1.0 [facility] Comment on above: Order Comment: No: D o not add to previous draw Performed By: #### 5 0608 #### [facility] [address] [place] [address], [facility] Eosinophils #/vol (Bld) 0.3 10*3/uL Normal 0.0-0.5 [facility] Comment on above: Order Comment: No: D o not add to previous draw Performed By: #### 5 0608 #### [facility] [address] [place] [address], [facility] Eosinophils/100 WBC (Bld) 4.0 % Normal 0.0-6.0 [facility] Comment on above: Order Comment: No: D o not add to previous draw Performed By: #### 5 0608 #### [facility] [address] Erythrocyte distribution width Ratio (RBC) 14.3 % Normal 11.5-15.0 [facility] Comment on above: Order Comment: No: D o not add to previous draw Performed By: #### 5 0608 #### [facility] [address] [place] [address], [facility] Hematocrit Volume Fraction (Bld) 24.7 % Low 36.0-45.0 [facility] Comment on above: Order Comment: No: D o not add to previous draw Performed By: #### 5 0608 #### [facility] [address] Hemoglobin mass conc (Bld) 7.9 g/dL Low 12.0-15.0 [facility] Comment on above: Order Comment: No: D o not add to previous draw Performed By: #### 5 0608 #### [facility] [address] [place] [address], [facility] IMMATURE GRANS 0.8 % Normal 0.0-1.0 [facility] Comment on above: Order Comment: No: D o not add to previous draw Performed By: #### 5 0608 #### [facility] [address] [place] [address], [facility] Lymphocytes #/vol (Bld) 2.4 10*3/uL Normal 1.2-4.0 [facility] Comment on above: Order Comment: No: D o not add to previous draw Performed By: #### 5 0608 #### [facility] [address] [place] [address], [facility] Lymphocytes/100 WBC (Bld) 33.7 % Normal 20.0-45.0 [facility] Comment on above: Order Comment: No: D o not add to previous draw Performed By: #### 5 0608 #### [facility] [address] MCH Entitic mass (RBC) 30.5 pg Normal 27.0-33.0 [facility] Comment on above: Order Comment: No: D o not add to previous draw Performed By: #### 5 0608 #### [facility] [address] [place] [address], [facility] MCHC mass conc (RBC) 32.0 g/dL Normal 32.0-35.0 [facility] Comment on above: Order Comment: No: D o not add to previous draw Performed By: #### 5 0608 #### [facility] [address] [place] [address], [facility] MCV Entitic volume (RBC) 95.4 fL Normal 82.0-98.0 [facility] Comment on above: Order Comment: No: D o not add to previous draw Performed By: #### 5 0608 #### [facility] [address] [place] [address], [facility] Monocytes #/vol (Bld) 0.6 10*3/uL Normal 0.1-1.0 [facility] Comment on above: Order Comment: No: D o not add to previous draw Performed By: #### 5 0608 #### [facility] [address] [place] [address], [facility] MONOS 8.7 % Normal 5.0-12.0 [facility] Comment on above: Order Comment: No: D o not add to previous draw Performed By: #### 5 0608 #### [facility] [address] [place] [address], [facility] Neutrophils/100 WBC (Bld) 52.5 % Normal 40.0-72.0 [facility] Comment on above: Order Comment: No: D o not add to previous draw Performed By: #### 5 0608 #### [facility] [address] [place] [address], [facility] Nucleated RBC/100 WBC Ratio (Bld) 0 % Normal 0-0 [facility] Comment on above: Order Comment: No: D o not add to previous draw Performed By: #### 5 0608 #### [facility] [address] [place] [address], [facility] PLAT CNT 312 10*3/uL Normal 150-400 [facility] Comment on above: Order Comment: No: D o not add to previous draw Performed By: #### 5 0608 #### [facility] [address] RBC #/vol (Bld) 2.59 10*6/uL Low 3.80-5.00 [facility] Comment on above: Order Comment: No: D o not add to previous draw Performed By: #### 5 0608 #### [facility] [address] [facility] WBC #/vol (Bld) 7.23 10*3/uL Normal 4.00-10.60 [facility] Comment on above: Order Comment: No: D o not add to previous draw Performed By: #### 5 0608 #### [facility] [address] POC GLUCOSE LABon 11-18-2018 Glucose mass conc 200 mg/dL High 70-100 [facility] Comment on above: Performed By: #### 5 0608 #### [facility] [address] [address], [facility] Glucose mass conc 172 mg/dL High 70-100 [facility] Comment on above: Performed By: #### 5 0608 #### [facility] [address] [facility]. [address] BASIC METABOLIC PANELon 11-01 Calcium mass conc 8.2 mg/dL Low 8.6-10.3 [facility] Comment on above: Order Comment: No: D o not add to previous draw Performed By: #### 5 0608 #### [facility] [address] [place] [address], [place] Chloride molar conc 108 mmol/L High 98-107 [facility] Comment on above: Order Comment: No: D o not add to previous draw Performed By: #### 5 0608 #### [facility] [address] [place] [address], [place] CO2 molar conc 24 mmol/L Normal 21-31 [facility] Comment on above: Order Comment: No: D o not add to previous draw Performed By: #### 5 0608 #### [facility] [address] [place] [address], [place] Creatinine mass conc 0.93 mg/dL Normal 0.60-1.20 [facility] Comment on above: Order Comment: No: D o not add to previous draw Performed By: #### 5 0608 #### [facility] [address] [place] [address], [place] GFR/1.73 sq M predicted among blacks MDRD vol rate/area (S/P/Bld) mL/min/{1.73_m2} Normal >60 [facility] Comment on above: Order Comment: No: D o not add to previous draw Performed By: #### 5 0608 #### [facility] [address] [place] [address], [place] GFR/1.73 sq M predicted among non-blacks MDRD vol rate/area (S/P/Bld) mL/min/{1.73_m2} Normal >60 [facility] Comment on above: Order Comment: No: D o not add to previous draw Performed By: #### 5 0608 #### [facility] [address] [place] [address], [place] Glucose mass conc 164 mg/dL High 70-100 [facility] Comment on above: Order Comment: No: D o not add to previous draw Performed By: #### 5 0608 #### [facility] [address] Potassium molar conc 4.0 mmol/L Normal 3.5-5.1 [facility] Comment on above: Order Comment: No: D o not add to previous draw Performed By: #### 5 0608 #### [facility] [address] Sodium molar conc 139 mmol/L Normal 136-145 [facility] Comment on above: Order Comment: No: D o not add to previous draw Performed By: #### 5 0608 #### [facility] [address] [facility]. [address] Urea nitrogen mass conc 11 mg/dL Normal 7-25 [facility] Comment on above: Order Comment: No: D o not add to previous draw Performed By: #### 5 0608 #### [facility] [address] [facility] CBC W/DIFFon 11-17-2018 ABS BASOPHILS 0.0 10*3/uL Normal 0.0-0.2 [facility] Comment on above: Order Comment: No: D o not add to previous draw Performed By: #### 5 0608 #### [facility] [address] [facility] ABS IMM GRANS 0.0 10*3/uL Normal 0.0-0.2 [facility] Comment on above: Order Comment: No: D o not add to previous draw Performed By: #### 5 0608 #### [facility] [address] ABS NEUTROPHILS 3.1 10*3/uL Normal 1.6-7.6 [facility] Comment on above: Order Comment: No: D o not add to previous draw Performed By: #### 5 0608 #### [facility] [address] Basophils #/vol (Bld) 0.4 % Normal 0.0-1.0 [facility] Comment on above: Order Comment: No: D o not add to previous draw Performed By: #### 5 0608 #### [facility] [address] [place] [address], [facility] Eosinophils #/vol (Bld) 0.2 10*3/uL Normal 0.0-0.5 [facility] Comment on above: Order Comment: No: D o not add to previous draw Performed By: #### 5 0608 #### [facility] [address] [place] [address], [facility] Eosinophils/100 WBC (Bld) 3.6 % Normal 0.0-6.0 [facility] Comment on above: Order Comment: No: D o not add to previous draw Performed By: #### 5 0608 #### [facility] [address] Erythrocyte distribution width Ratio (RBC) 14.3 % Normal 11.5-15.0 [facility] Comment on above: Order Comment: No: D o not add to previous draw Performed By: #### 5 0608 #### [facility] [address] [place] [address], [facility] Hematocrit Volume Fraction (Bld) 24.7 % Low 36.0-45.0 [facility] Comment on above: Order Comment: No: D o not add to previous draw Performed By: #### 5 0608 #### [facility] [address] [place] [address], [facility] Hemoglobin mass conc (Bld) 7.8 g/dL Low 12.0-15.0 [facility] Comment on above: Order Comment: No: D o not add to previous draw Performed By: #### 5 0608 #### [facility] [address] [place] [address], [facility] IMMATURE GRANS 0.4 % Normal 0.0-1.0 [facility] Comment on above: Order Comment: No: D o not add to previous draw Performed By: #### 5 0608 #### [facility] [address] [place] [address], [facility] Lymphocytes #/vol (Bld) 2.8 10*3/uL Normal 1.2-4.0 [facility] Comment on above: Order Comment: No: D o not add to previous draw Performed By: #### 5 0608 #### [facility] [address] Lymphocytes/100 WBC (Bld) 41.5 % Normal 20.0-45.0 [facility] Comment on above: Order Comment: No: D o not add to previous draw Performed By: #### 5 0608 #### [facility] [address] [facility] MCH Entitic mass (RBC) 30.6 pg Normal 27.0-33.0 [facility] Comment on above: Order Comment: No: D o not add to previous draw Performed By: #### 5 0608 #### [facility] [address] [facility] MCHC mass conc (RBC) 31.6 g/dL Low 32.0-35.0 [facility] Comment on above: Order Comment: No: D o not add to previous draw Performed By: #### 5 0608 #### [facility] [address] [place] [address], [facility] MCV Entitic volume (RBC) 96.9 fL Normal 82.0-98.0 [facility] Comment on above: Order Comment: No: D o not add to previous draw Performed By: #### 5 0608 #### [facility] [address] [place] [address], [facility] Monocytes #/vol (Bld) 0.6 10*3/uL Normal 0.1-1.0 [facility] Comment on above: Order Comment: No: D o not add to previous draw Performed By: #### 5 0608 #### [facility] [address] [place] [address], [facility] MONOS 8.2 % Normal 5.0-12.0 [facility] Comment on above: Order Comment: No: D o not add to previous draw Performed By: #### 5 0608 #### [facility] [address] [place] [address], [facility] Neutrophils/100 WBC (Bld) 45.9 % Normal 40.0-72.0 [facility] Comment on above: Order Comment: No: D o not add to previous draw Performed By: #### 5 0608 #### [facility] [address] [place] [address], [facility] Nucleated RBC/100 WBC Ratio (Bld) 0 % Normal 0-0 [facility] Comment on above: Order Comment: No: D o not add to previous draw Performed By: #### 5 0608 #### [facility] [address] [place] [address], [facility] PLAT CNT 311 10*3/uL Normal 150-400 [facility] Comment on above: Order Comment: No: D o not add to previous draw Performed By: #### 5 0608 #### [facility] [address] [place] [address], [facility] RBC #/vol (Bld) 2.55 10*6/uL Low 3.80-5.00 [facility] Comment on above: Order Comment: No: D o not add to previous draw Performed By: #### 5 0608 #### [facility] [address] [place] [address], [facility] WBC #/vol (Bld) 6.74 10*3/uL Normal 4.00-10.60 [facility] Comment on above: Order Comment: No: D o not add to previous draw Performed By: #### 5 0608 #### [address] [address], [facility] CHEST AND LATERALon 11-17-19 CHEST AND LATERAL [facility] Department of Radiology [address] [place] [id number] Patient Name: KYLE POWELL : 1955 Sex: F Age: Race: White Pt. Location: [id number] Patient Status: I Ordered Date: 11/17/2018 9:55:00 [...] change. Electronically signed by:Nathan Guan. Transcribed by: [email or web address], User Resident: Electronically Signed by: NATHAN GUAN @ 11/18/2018 07:34 AM Normal [facility] Comment on above: Order Comment: No: D o not add to previous draw POC GLUCOSE LABon 11-17-2018 Glucose mass conc 189 mg/dL High 70-100 [facility] Comment on above: Performed By: #### 5 0608 #### [facility] [address] [place] [address], [place] Glucose mass conc 140 mg/dL High 70-100 [facility] Comment on above: Performed By: #### 5 0608 #### [facility] [address] [place] [address], [place] Glucose mass conc 175 mg/dL High 70-100 [facility] Comment on above: Performed By: #### 5 0608 #### [facility] [address] [place] [address], [facility] Glucose mass conc 183 mg/dL High 70-100 [facility] Comment on above: Performed By: #### 5 0608 #### [facility] [address] [place] [address], [facility] BASIC METABOLIC PANELon 11-01 Calcium mass conc 8.2 mg/dL Low 8.6-10.3 [facility] Comment on above: Order Comment: No: D o not add to previous draw Performed By: #### 5 0608 #### [facility] [address] [place] [address], [place] Chloride molar conc 106 mmol/L Normal 98-107 [facility] Comment on above: Order Comment: No: D o not add to previous draw Performed By: #### 5 0608 #### [facility] [address] [place] [address], [place] CO2 molar conc 26 mmol/L Normal 21-31 [facility] Comment on above: Order Comment: No: D o not add to previous draw Performed By: #### 5 0608 #### [facility] [address] [place] [address], [facility] Creatinine mass conc 1.03 mg/dL Normal 0.60-1.20 [facility] Comment on above: Order Comment: No: D o not add to previous draw Performed By: #### 5 0608 #### [facility] [address] [place] [address], [facility] GFR/1.73 sq M predicted among blacks MDRD vol rate/area (S/P/Bld) mL/min/{1.73_m2} Normal >60 [facility] Comment on above: Order Comment: No: D o not add to previous draw Performed By: #### 5 0608 #### [facility] [address] [place] [address], [facility] GFR/1.73 sq M predicted among non-blacks MDRD vol rate/area (S/P/Bld) 54 ml/min/1.73sq m Abnormal >60 [facility] Comment on above: Order Comment: No: D o not add to previous draw Performed By: #### 5 0608 #### [facility] [address] [place] [address], [facility] Glucose mass conc 161 mg/dL High 70-100 [facility] Comment on above: Order Comment: No: D o not add to previous draw Performed By: #### 5 0608 #### [facility] [address] [place] [address], [facility] Potassium molar conc 4.4 mmol/L Normal 3.5-5.1 [facility] Comment on above: Order Comment: No: D o not add to previous draw Performed By: #### 5 0608 #### [facility] [address] [place] [address], [facility] Sodium molar conc 137 mmol/L Normal 136-145 [facility] Comment on above: Order Comment: No: D o not add to previous draw Performed By: #### 5 0608 #### [facility] [address] [place] [address], [facility] Urea nitrogen mass conc 11 mg/dL Normal 7-25 [facility] Comment on above: Order Comment: No: D o not add to previous draw Performed By: #### 5 0608 #### [facility] [address] [place] [address], [facility] Calcium mass conc 8.3 mg/dL Low 8.6-10.3 [facility] Comment on above: Order Comment: No: D o not add to previous draw Performed By: #### 5 0608 #### [facility] [address] [place] [address], [facility] Chloride molar conc 108 mmol/L High 98-107 [facility] Comment on above: Order Comment: No: D o not add to previous draw Performed By: #### 5 0608 #### [facility] [address] [place] [address], [facility] CO2 molar conc 25 mmol/L Normal 21-31 [facility] Comment on above: Order Comment: No: D o not add to previous draw Performed By: #### 5 0608 #### [facility] [address] [place] [address], [facility] Creatinine mass conc 0.97 mg/dL Normal 0.60-1.20 [facility] Comment on above: Order Comment: No: D o not add to previous draw Performed By: #### 5 0608 #### [facility] [address] [place] [address], [facility] GFR/1.73 sq M predicted among non-blacks MDRD vol rate/area (S/P/Bld) 58 ml/min/1.73sq m Abnormal >60 [facility] Comment on above: Order Comment: No: D o not add to previous draw Performed By: #### 5 0608 #### [facility] [address] [place] [address], [facility] Glucose mass conc 116 mg/dL High 70-100 [facility] Comment on above: Order Comment: No: D o not add to previous draw Performed By: #### 5 0608 #### [facility] [address] [place] [address], [facility] Potassium molar conc 4.0 mmol/L Normal 3.5-5.1 [facility] Comment on above: Order Comment: No: D o not add to previous draw Performed By: #### 5 0608 #### [facility] [address] [place] [address], [facility] Sodium molar conc 140 mmol/L Normal 136-145 [facility] Comment on above: Order Comment: No: D o not add to previous draw Performed By: #### 5 0608 #### [facility] [address] [place] [address], [facility] Urea nitrogen mass conc 9 mg/dL Normal 7-25 [facility] Comment on above: Order Comment: No: D o not add to previous draw Performed By: #### 5 0608 #### [facility] [address] [place] [address], [facility] CBC COMPLETE BLOOD COUNTon 0 - Erythrocyte distribution width Ratio (RBC) 14.4 % Normal 11.5-15.0 [facility] Comment on above: Order Comment: No: D o not add to previous draw Performed By: #### 5 0608 #### [facility] [address] [place] [address], [facility] Hematocrit Volume Fraction (Bld) 24.9 % Low 36.0-45.0 [facility] Comment on above: Order Comment: No: D o not add to previous draw Performed By: #### 5 0608 #### [facility] [address] [place] [address], [facility] Hemoglobin mass conc (Bld) 7.8 g/dL Low 12.0-15.0 [facility] Comment on above: Order Comment: No: D o not add to previous draw Performed By: #### 5 0608 #### [facility] [address] MCH Entitic mass (RBC) 30.8 pg Normal 27.0-33.0 [facility] Comment on above: Order Comment: No: D o not add to previous draw Performed By: #### 5 0608 #### [facility] [address] MCHC mass conc (RBC) 31.3 g/dL Low 32.0-35.0 [facility] Comment on above: Order Comment: No: D o not add to previous draw Performed By: #### 5 0608 #### [facility] [address] [facility] [address] MCV Entitic volume (RBC) 98.4 fL High 82.0-98.0 [facility] Comment on above: Order Comment: No: D o not add to previous draw Performed By: #### 5 0608 #### [facility] [address] [facility] [address] Nucleated RBC/100 WBC Ratio (Bld) 0 % Normal 0-0 [facility] Comment on above: Order Comment: No: D o not add to previous draw Performed By: #### 5 0608 #### [facility] [address] [place] [address], [facility] PLAT CNT 302 10*3/uL Normal 150-400 [facility] Comment on above: Order Comment: No: D o not add to previous draw Performed By: #### 5 0608 #### [facility] [address] [facility]. [address] RBC #/vol (Bld) 2.53 10*6/uL Low 3.80-5.00 [facility] Comment on above: Order Comment: No: D o not add to previous draw Performed By: #### 5 0608 #### [facility] [address] WBC #/vol (Bld) 7.31 10*3/uL Normal 4.00-10.60 [facility] Comment on above: Order Comment: No: D o not add to previous draw Performed By: #### 5 0608 #### [facility] [address] Erythrocyte distribution width Ratio (RBC) 14.6 % Normal 11.5-15.0 [facility] Comment on above: Order Comment: No: D o not add to previous draw Performed By: #### 5 0608 #### [facility] [address] Hemoglobin mass conc (Bld) 7.6 g/dL Low 12.0-15.0 [facility] Comment on above: Order Comment: No: D o not add to previous draw Performed By: #### 5 0608 #### [facility] [address] MCH Entitic mass (RBC) 30.2 pg Normal 27.0-33.0 [facility] Comment on above: Order Comment: No: D o not add to previous draw Performed By: #### 5 0608 #### [facility] [address] [facility] [address] MCHC mass conc (RBC) 30.5 g/dL Low 32.0-35.0 [facility] Comment on above: Order Comment: No: D o not add to previous draw Performed By: #### 5 0608 #### [facility] [address] [place] [address], [facility] MCV Entitic volume (RBC) 98.8 fL High 82.0-98.0 [facility] Comment on above: Order Comment: No: D o not add to previous draw Performed By: #### 5 0608 #### [facility] [address] [place] [address], [facility] PLAT CNT 317 10*3/uL Normal 150-400 [facility] Comment on above: Order Comment: No: D o not add to previous draw Performed By: #### 5 0608 #### [facility] [address] [place] [address], [facility] RBC #/vol (Bld) 2.52 10*6/uL Low 3.80-5.00 [facility] Comment on above: Order Comment: No: D o not add to previous draw Performed By: #### 5 0608 #### [facility] [address] [place] [address], [facility] WBC #/vol (Bld) 7.29 10*3/uL Normal 4.00-10.60 [facility] Comment on above: Order Comment: No: D o not add to previous draw Performed By: #### 5 0608 #### [facility] [address] HEMATOCRITon 11-16-2018 Hematocrit Volume Fraction (Bld) 25.4 % Low 36.0-45.0 [facility] Comment on above: Order Comment: No: D o not add to previous draw Performed By: #### 5 0608 #### [facility] [address] HEMOGLOBINon 11-16-2018 Hemoglobin mass conc (Bld) 7.9 g/dL Low 12.0-15.0 [facility] Comment on above: Order Comment: No: D o not add to previous draw Performed By: #### 5 0608 #### [facility] [address] POC GLUCOSE LABon 11-16-2018 Glucose mass conc 177 mg/dL High 70-100 [facility] Comment on above: Performed By: #### 5 0608 #### [facility] [address] [place] [address], [facility] Glucose mass conc 155 mg/dL High 70-100 [facility] Comment on above: Performed By: #### 5 0608 #### [facility] [address] [place] [address], [facility] Glucose mass conc 170 mg/dL High 70-100 [facility] Comment on above: Performed By: #### 5 0608 #### [facility] [address] [place] [address], [facility] Glucose mass conc 140 mg/dL High 70-100 [facility] Comment on above: Performed By: #### 5 0608 #### [facility] [address] [facility] [place] [address], [facility] BASIC METABOLIC PANELon 11-01 Calcium mass conc 8.4 mg/dL Low 8.6-10.3 [facility] Comment on above: Order Comment: Unkno wn Performed By: #### 8 5499 #### [facility] [address] [place] [address], [facility] Chloride molar conc 110 mmol/L High 98-107 [facility] Comment on above: Order Comment: Unkno wn Performed By: #### 8 5499 #### [facility] [address] [place] [place] [address], [facility] CO2 molar conc 22 mmol/L Normal 21-31 [facility] Comment on above: Order Comment: Unkno wn Performed By: #### 8 5499 #### [facility] [address] [place] [address], [facility] Creatinine mass conc 1.02 mg/dL Normal 0.60-1.20 [facility] Comment on above: Order Comment: Unkno wn Performed By: #### 8 5499 #### [facility] [address] [place] [address], [facility] GFR/1.73 sq M predicted among blacks MDRD vol rate/area (S/P/Bld) mL/min/{1.73_m2} Normal >60 [facility] Comment on above: Order Comment: Unkno wn Performed By: #### 8 [id number] #### [facility] [address] [place] [address], [facility] GFR/1.73 sq M predicted among non-blacks MDRD vol rate/area (S/P/Bld) 55 ml/min/1.73sq m Abnormal >60 [facility] Comment on above: Order Comment: Unkno wn Performed By: #### 8 [id number] #### [facility] [address] [place] [address], [facility] Glucose mass conc 126 mg/dL High 70-100 [facility] Comment on above: Order Comment: Unkno wn Performed By: #### 8 5499 #### [facility] [address] [place] [address], [facility] Potassium molar conc 3.9 mmol/L Normal 3.5-5.1 [facility] Comment on above: Order Comment: Unkno wn Performed By: #### 8 [id number] #### [facility] [address] [place] [address], [facility] Sodium molar conc 141 mmol/L Normal 136-145 [facility] Comment on above: Order Comment: Unkno wn Performed By: #### 8 [id number] #### [facility] [address] [place] [address], [facility] Urea nitrogen mass conc 13 mg/dL Normal 7-25 [facility] Comment on above: Order Comment: Unkno wn Performed By: #### 8 5499 #### [facility] [address] [place] [address], [facility] CBC W/DIFFon 11-15-2018 ABS BASOPHILS 0.0 10*3/uL Normal 0.0-0.2 [facility] Comment on above: Order Comment: Unkno wn Performed By: #### 8 [id number] #### [facility] [address] [place] [id number], [facility] ABS IMM GRANS 0.1 10*3/uL Normal 0.0-0.2 [facility] Comment on above: Order Comment: Unkno wn Performed By: #### 8 5499 #### [facility] [address] ABS NEUTROPHILS 3.4 10*3/uL Normal 1.6-7.6 [facility] Comment on above: Order Comment: Unkno wn Performed By: #### 8 5499 #### [facility] [address] [facility]. [address] Basophils #/vol (Bld) 0.4 % Normal 0.0-1.0 [facility] Comment on above: Order Comment: Unkno wn Performed By: #### 8 5499 #### [facility] [address] [place] [address], [facility] Eosinophils #/vol (Bld) 0.2 10*3/uL Normal 0.0-0.5 [facility] Comment on above: Order Comment: Unkno wn Performed By: #### 8 5499 #### [facility] [address] Eosinophils/100 WBC (Bld) 3.4 % Normal 0.0-6.0 [facility] Comment on above: Order Comment: Unkno wn Performed By: #### 8 [id number] #### [facility] [address] Erythrocyte distribution width Ratio (RBC) 14.6 % Normal 11.5-15.0 [facility] Comment on above: Order Comment: Unkno wn Performed By: #### 8 5499 #### [facility] [address] Hematocrit Volume Fraction (Bld) 27.5 % Low 36.0-45.0 [facility] Comment on above: Order Comment: Unkno wn Performed By: #### 8 5499 #### [facility] [address] [place] [address], [facility] Hemoglobin mass conc (Bld) 8.5 g/dL Low 12.0-15.0 [facility] Comment on above: Order Comment: Unkno wn Performed By: #### 8 5499 #### [facility] [address] [place] [address], [facility] IMMATURE GRANS 0.8 % Normal 0.0-1.0 [facility] Comment on above: Order Comment: Unkno wn Performed By: #### 8 5499 #### [facility] [address] [place] [address], [facility] Lymphocytes #/vol (Bld) 2.8 10*3/uL Normal 1.2-4.0 [facility] Comment on above: Order Comment: Unkno wn Performed By: #### 8 5499 #### [facility] [address] [place] [address], [facility] Lymphocytes/100 WBC (Bld) 39.6 % Normal 20.0-45.0 [facility] Comment on above: Order Comment: Unkno wn Performed By: #### 8 5499 #### [facility] [address] [place] [address], [facility] MCH Entitic mass (RBC) 30.8 pg Normal 27.0-33.0 [facility] Comment on above: Order Comment: Unkno wn Performed By: #### 8 5499 #### [facility] [address] [place] [id number], [facility] MCHC mass conc (RBC) 30.9 g/dL Low 32.0-35.0 [facility] Comment on above: Order Comment: Unkno wn Performed By: #### 8 [id number] #### [facility] [address] [place] [id number], [facility] MCV Entitic volume (RBC) 99.6 fL High 82.0-98.0 [facility] Comment on above: Order Comment: Unkno wn Performed By: #### 8 [id number] #### [facility] [address] [place] [address], [facility] Monocytes #/vol (Bld) 0.5 10*3/uL Normal 0.1-1.0 [facility] Comment on above: Order Comment: Unkno wn Performed By: #### 8 [id number] #### [facility] [address] [place] [address], [facility] MONOS 7.6 % Normal 5.0-12.0 [facility] Comment on above: Order Comment: Unkno wn Performed By: #### 8 5499 #### [facility] [address] [place] [address], [facility] Neutrophils/100 WBC (Bld) 48.2 % Normal 40.0-72.0 [facility] Comment on above: Order Comment: Unkno wn Performed By: #### 8 [id number] #### [facility] [address] [place] [address], [facility] Nucleated RBC/100 WBC Ratio (Bld) 0 % Normal 0-0 [facility] Comment on above: Order Comment: Unkno wn Performed By: #### 8 [id number] #### [facility] [address] [place] [address], [facility] PLAT CNT 329 10*3/uL Normal 150-400 [facility] Comment on above: Order Comment: Unkno wn Performed By: #### 8 [id number] #### [facility] [address] [place] [address], [facility] RBC #/vol (Bld) 2.76 10*6/uL Low 3.80-5.00 [facility] Comment on above: Order Comment: Unkno wn Performed By: #### 8 [id number] #### [facility] [address] [place] [address], [facility] WBC #/vol (Bld) 7.09 10*3/uL Normal 4.00-10.60 [facility] Comment on above: Order Comment: Unkno wn Performed By: #### 8 [id number] #### [facility] [address] [place] [address], [facility] HEMOGLOBINon 11-15-2018 Hemoglobin mass conc (Bld) 8.5 g/dL Low 12.0-15.0 [facility] Comment on above: Order Comment: No: D o not add to previous draw Performed By: #### 8 [id number] #### [facility] [address] [place] [address], [facility] MAGNESIUM BLOODon 11-15-2018 Magnesium mass conc 2.0 mg/dL Normal 1.9-2.7 [facility] Comment on above: Order Comment: Unkno wn Performed By: #### 8 [id number] #### [facility] [address] [place] [address], [facility] POC GLUCOSE LABon 11-15-2018 Glucose mass conc 168 mg/dL High 70-100 [facility] Comment on above: Performed By: #### 5 0608 #### [facility] [address] [place] [address], [facility] Glucose mass conc 117 mg/dL High 70-100 [facility] Comment on above: Performed By: #### 5 0608 #### [facility] [address] [facility] [place] [address], [facility] Glucose mass conc 151 mg/dL High 70-100 [facility] Comment on above: Performed By: #### 8 5499 #### [facility] [address] [place] [address], [facility] Glucose mass conc 143 mg/dL High 70-100 [facility] Comment on above: Performed By: #### 8 5499 #### [facility] [address] [place] [address], [facility] PROTHROMBIN TIMEon 9 INR Coag RelTime (PPP) 1.18 {INR} High 0.91-1.16 [facility] Comment on above: Order Comment: Valerie fofana Result Comment: ACCC P RECOMMENDED INR FOR [...] 1995;[id number]. Performed By: #### 8 [id number] #### [facility] [employer] [address] Prothrombin time (PT) Coag time (PPP) 15.0 s High 12.3-14.8 [facility] Comment on above: Order Comment: Valerie fofana Result Comment: ALL RESULTS MUST BE INTERPRETED WITH RESPECT TO BLOOD DRAWING ARTIFACT OR DILUTION ERROR OF ANTICOAGULANT AT THE TIME OF SAMPLING. Performed By: #### 8 [id number] #### [facility] [address] BASIC METABOLIC PANELon 11-01 Calcium mass conc 8.5 mg/dL Low 8.6-10.3 [facility] Comment on above: Performed By: #### 7 0066 #### [facility] [address] [place] [address], [facility] Chloride molar conc 108 mmol/L High 98-107 [facility] Comment on above: Performed By: #### 7 0066 #### [facility] [address] [place] [address], [place] CO2 molar conc 23 mmol/L Normal 21-31 [facility] Comment on above: Performed By: #### 7 0066 #### [facility] [address] [place] [address], [place] Creatinine mass conc 0.84 mg/dL Normal 0.60-1.20 [facility] Comment on above: Performed By: #### 7 0066 #### [facility] [address] [place] [address], [place] GFR/1.73 sq M predicted among blacks MDRD vol rate/area (S/P/Bld) mL/min/{1.73_m2} Normal >60 [facility] Comment on above: Performed By: #### 7 0066 #### [facility] [address] [place] [address], [place] GFR/1.73 sq M predicted among non-blacks MDRD vol rate/area (S/P/Bld) mL/min/{1.73_m2} Normal >60 [facility] Comment on above: Performed By: #### 7 0066 #### [facility] [address] [place] [address], [place] Glucose mass conc 168 mg/dL High 70-100 [facility] Comment on above: Performed By: #### 7 0066 #### [facility] [address] [place] [address], [place] Potassium molar conc 3.8 mmol/L Normal 3.5-5.1 [facility] Comment on above: Performed By: #### 7 0066 #### [facility] [address] [place] [address], [place] Sodium molar conc 140 mmol/L Normal 136-145 [facility] Comment on above: Performed By: #### 7 0066 #### [facility] [address] [place] [address], [facility] Urea nitrogen mass conc 15 mg/dL Normal 7-25 [facility] Comment on above: Performed By: #### 7 0066 #### [facility] [address] [place] [address], [facility] CBC COMPLETE BLOOD COUNTon 0 - Erythrocyte distribution width Ratio (RBC) 14.0 % Normal 11.5-15.0 [facility] Comment on above: Order Comment: No: D o not add to previous draw Performed By: #### 4 1000, 16237, 46942, 30446 #### [facility] [address] [place] [address], [facility] Hematocrit Volume Fraction (Bld) 26.1 % Low 36.0-45.0 [facility] Comment on above: Order Comment: No: D o not add to previous draw Performed By: #### 4 1000, 35166, 60407, 80945 #### [facility] [address] [place] [address], [facility] Hemoglobin mass conc (Bld) 8.4 g/dL Low 12.0-15.0 [facility] Comment on above: Order Comment: No: D o not add to previous draw Performed By: #### 4 1000, 57440, 47209, 09233 #### [facility] [address] [place] [address], [facility] MCH Entitic mass (RBC) 31.1 pg Normal 27.0-33.0 [facility] Comment on above: Order Comment: No: D o not add to previous draw Performed By: #### 4 1000, 16858, 97921, 67382 #### [facility] [address] [place] [address], [facility] MCHC mass conc (RBC) 32.2 g/dL Normal 32.0-35.0 [facility] Comment on above: Order Comment: No: D o not add to previous draw Performed By: #### 4 1000, 97160, 49467, 42574 #### [facility] [address] [place] [address], [facility] MCV Entitic volume (RBC) 96.7 fL Normal 82.0-98.0 [facility] Comment on above: Order Comment: No: D o not add to previous draw Performed By: #### 4 1000, 58515, 56733, 37458 #### [facility] [address] [address] Nucleated RBC/100 WBC Ratio (Bld) 0 % Normal 0-0 [facility] Comment on above: Order Comment: No: D o not add to previous draw Performed By: #### 4 1000, 70240, 19089, 22454 #### [facility] [address] [place] [address], [facility] PLAT CNT 310 10*3/uL Normal 150-400 [facility] Comment on above: Order Comment: No: D o not add to previous draw Performed By: #### 4 1000, 90292, 62087, 69087 #### [facility] [address] [place] [address], [facility] RBC #/vol (Bld) 2.70 10*6/uL Low 3.80-5.00 [facility] Comment on above: Order Comment: No: D o not add to previous draw Performed By: #### 4 1000, 94155, 89555, 26008 #### [facility] [address] [place] [address], [facility] WBC #/vol (Bld) 6.38 10*3/uL Normal 4.00-10.60 [facility] Comment on above: Order Comment: No: D o not add to previous draw Performed By: #### 4 1000, 52810, 95698, 83241 #### [facility] [address] [place] [address], [facility] CT BRAIN WO CONTRASTon 11-14 CT BRAIN WO CONTRAST [facility] Department of Radiology [address] [place] [address] Patient Name: KYLE POWELL : 1955 Sex: F Age: Race: White Pt. Location: [id number] Patient Status: O Ordered Date: 11/14/2018 3:45:00 [...] findings. Electronically signed by:Cornelius Bennett. Transcribed by: [email or web address], User Resident: CHRISSY SANDOVAL Electronically Signed by: CORNELIUS BENNETT @ 11/15/2018 04:27 PM I personally read this/these film(s) with this resident Normal [facility] Comment on above: Order Comment: No: D o not add to previous draw FOLATE SERUMon 11-14-2018 Folate mass conc 25.00 ng/mL Normal 6.60-1000.0 0 [facility] Comment on above: Order Comment: No: D o not add to previous draw Result Comment: Norm al range reflects World Health Organization International Standard 03/178 Performed By: #### 7 0066 #### [facility] [address] [place] [address], [facility] HAPTOGLOBINon 11-14-2018 HAPTOGLOBIN 7 mg/dL Low 26-164 [facility] Comment on above: Order Comment: No: D o not add to previous draw Performed By: #### 7 0066 #### [facility] [address] [place] [address], [facility] HEMOGLOBINon 11-14-2018 Hemoglobin mass conc (Bld) 8.1 g/dL Low 12.0-15.0 [facility] Comment on above: Order Comment: No: D o not add to previous draw Performed By: #### 7 0066 #### [facility] [address] [place] [address], [facility] History and Physicalon 11-14 History and Physical MR#: [id number] [facility] Pt. Name: Kyle Powell Admitted: 11/13/2018 Date of : 1955 Attending Physician: Basim Tripathi MD Room #: [id number] Discharge Date: HISTORY AND PHYSICAL CHIEF COMPLAINT: [...] Tripathi MD Date Trans: 11/14/2018 02:17 A/nav [id number] Normal [facility] LDH BLOODon 11-14-2018 LDH 99 Units/L Low 140-271 [facility] Comment on above: Order Comment: No: D o not add to previous draw Performed By: #### 7 0066 #### [facility] [address] [place] [address], [facility] POC GLUCOSE LABon 11-14-2018 Glucose mass conc 128 mg/dL High 70-100 [facility] Comment on above: Performed By: #### 8 5499 #### [facility] [address] [place] [address], [place] Glucose mass conc 128 mg/dL High 70-100 [facility] Comment on above: Performed By: #### 8 5499 #### [facility] [address] [place] [address], [facility] Glucose mass conc 159 mg/dL High 70-100 [facility] Comment on above: Performed By: #### 7 0066 #### [facility] [address] [place] [address], [place] Glucose mass conc 213 mg/dL High 70-100 [facility] Comment on above: Performed By: #### 4 1000, 30862, 38643, 74324 #### [facility] [address] [place] [address], [place] Glucose mass conc 133 mg/dL High 70-100 [facility] Comment on above: Performed By: #### 4 1000, 96880, 58327, 05327 #### [facility] [address] [place] [address], [facility] Glucose mass conc 111 mg/dL High 70-100 [facility] Comment on above: Performed By: #### 4 1000, 75515, 60387, 45095 #### [facility] [address] [place] [address], [facility] PROTHROMBIN TIMEon 9 INR Coag RelTime (PPP) 1.17 {INR} High 0.91-1.16 [facility] Comment on above: Order Comment: No: D [...] 1995;108:[id number]. Performed By: #### 7 0066 #### [facility] [address] Prothrombin time (PT) Coag time (PPP) 14.9 s High 12.3-14.8 [facility] Comment on above: Order Comment: No: D o not add to previous draw Result Comment: ALL RESULTS MUST BE INTERPRETED WITH RESPECT TO BLOOD DRAWING ARTIFACT OR DILUTION ERROR OF ANTICOAGULANT AT THE TIME OF SAMPLING. Performed By: #### 7 0066 #### [facility] [address] RETICULOCYTE PANELon 02-14-2 019 ABSOLUTE RETICULOCYTE 0.1396 10*6/uL High 0.02 50-0.10 00 [facility] Comment on above: Performed By: #### 7 0066 #### [facility] [address] IMMATURE RETICULOCYTE FRACTION 35.3 % High 2.0-16.0 [facility] Comment on above: Performed By: #### 7 0066 #### [facility] [address] RETIC COUNT 5.17 % High 0.50-1.80 [facility] Comment on above: Performed By: #### 7 0066 #### [facility] [address] RETICULOCYTE HEMOGLOBIN 36.5 pg High 28.0-36.0 [facility] Comment on above: Performed By: #### 7 0066 #### [facility] [address] [place] [address], [facility] TROPONIN-Ion 11-14-2018 Troponin I.cardiac mass conc 0.12 ng/mL Critically high 0.00-0.04 [facility] Comment on above: Order Comment: No: D o not add to previous draw Result Comment: M-SD EVIOUS CRITICAL RESULT REFERENCE RANGES: 0.00 - 0.04 ng/ml NORMAL 0.05 - 0.50 ng/ml INDETERMINATE > 0.50 ng/ml CONSISTENT WITH AN M.I. Performed By: #### 8 5499 #### [facility] [address] [place] [address], [facility] Troponin I.cardiac mass conc 0.16 ng/mL Critically high 0.00-0.04 [facility] Comment on above: Result Comment: M-SD EVIOUS CRITICAL RESULT REFERENCE RANGES: 0.00 - 0.04 ng/ml NORMAL 0.05 - 0.50 ng/ml INDETERMINATE > 0.50 ng/ml CONSISTENT WITH AN M.I. Performed By: #### 7 0066 #### [facility] [address] [place] [address], [facility] Troponin I.cardiac mass conc 0.28 ng/mL Critically high 0.00-0.04 [facility] Comment on above: Order Comment: No: D o not add to previous draw Result Comment: M-SD EVIOUS CRITICAL RESULT REFERENCE RANGES: 0.00 - 0.04 ng/ml NORMAL 0.05 - 0.50 ng/ml INDETERMINATE > 0.50 ng/ml CONSISTENT WITH AN M.I. Performed By: #### 4 1000, 84283, 65572, 90319 #### [facility] [address] [place] [address], [facility] VITAMIN B12on 11-14-2018 Cobalamin (Vitamin B12) mass conc 338 pg/mL Normal 180-914 [facility] Comment on above: Order Comment: No: D o not add to previous draw Result Comment: REFE RENCE RANGES: 180-914 pg/mL Normal 145-179 pg/mL Indeterminate <145 pg/mL Deficient Performed By: #### 7 0066 #### [facility] [address] [place] [address], [place] BASIC METABOLIC PANELon 12-0 -2017 Calcium mass conc 8.7 mg/dL Normal 8.6-10.3 [facility] Comment on above: Order Comment: No: D o not add to previous draw Performed By: #### 4 1000, 57146, 93353, 92709 #### [facility] [address] [place] [address], [place] Chloride molar conc 109 mmol/L High 98-107 [facility] Comment on above: Order Comment: No: D o not add to previous draw Performed By: #### 4 1000, 28497, 25447, 36795 #### [facility] [address] [place] [address], [place] CO2 molar conc 24 mmol/L Normal 21-31 [facility] Comment on above: Order Comment: No: D o not add to previous draw Performed By: #### 4 1000, 49933, 51217, 55971 #### [facility] [address] [place] [address], [place] Creatinine mass conc 0.79 mg/dL Normal 0.60-1.20 [facility] Comment on above: Order Comment: No: D o not add to previous draw Performed By: #### 4 1000, 92051, 70144, 92346 #### [facility] [address] [place] [address], [place] GFR/1.73 sq M predicted among blacks MDRD vol rate/area (S/P/Bld) mL/min/{1.73_m2} Normal >60 [facility] Comment on above: Order Comment: No: D o not add to previous draw Performed By: #### 4 1000, 29063, 61718, 94614 #### [facility] [address] [place] [address], [place] GFR/1.73 sq M predicted among non-blacks MDRD vol rate/area (S/P/Bld) mL/min/{1.73_m2} Normal >60 [facility] Comment on above: Order Comment: No: D o not add to previous draw Performed By: #### 4 1000, 39748, 98111, 77582 #### [facility] [address] [place] [address], [place] Glucose mass conc 128 mg/dL High 70-100 [facility] Comment on above: Order Comment: No: D o not add to previous draw Performed By: #### 4 1000, 38326, 92131, 46045 #### [facility] [address] [place] [address], [place] Potassium molar conc 4.3 mmol/L Normal 3.5-5.1 [facility] Comment on above: Order Comment: No: D o not add to previous draw Performed By: #### 4 1000, 51283, 63491, 24005 #### [facility] [address] [place] [address], [place] Sodium molar conc 140 mmol/L Normal 136-145 [facility] Comment on above: Order Comment: No: D o not add to previous draw Performed By: #### 4 1000, 71895, 64072, 04321 #### [facility] [address] [place] [address], [place] Urea nitrogen mass conc 23 mg/dL Normal 7-25 [facility] Comment on above: Order Comment: No: D o not add to previous draw Performed By: #### 4 1000, 36163, 53353, 76366 #### [facility] [address] [place] [address], [place] CBC COMPLETE BLOOD COUNTon 1 11-08-2017 Erythrocyte distribution width Ratio (RBC) 12.6 % Normal 11.5-15.0 [facility] Comment on above: Order Comment: No: D o not add to previous draw Performed By: #### 4 1000, 74499, 62871, 33649 #### [facility] [address] [place] [address], [place] Hematocrit Volume Fraction (Bld) 35.1 % Low 36.0-45.0 [facility] Comment on above: Order Comment: No: D o not add to previous draw Performed By: #### 4 1000, 61378, 35202, 29828 #### [facility] [address] [place] [address], [facility] Hemoglobin mass conc (Bld) 11.5 g/dL Low 12.0-15.0 [facility] Comment on above: Order Comment: No: D o not add to previous draw Performed By: #### 4 1000, 98333, 99988, 59336 #### [facility] [address] [place] [address], [facility] MCH Entitic mass (RBC) 30.6 pg Normal 27.0-33.0 [facility] Comment on above: Order Comment: No: D o not add to previous draw Performed By: #### 4 1000, 39275, 86675, 70846 #### [facility] [address] MCHC mass conc (RBC) 32.8 g/dL Normal 32.0-35.0 [facility] Comment on above: Order Comment: No: D o not add to previous draw Performed By: #### 4 1000, 81898, 37458, 45018 #### [facility] [address] [place] [address], [facility] MCV Entitic volume (RBC) 93.4 fL Normal 82.0-98.0 [facility] Comment on above: Order Comment: No: D o not add to previous draw Performed By: #### 4 1000, 80658, 55004, 76538 #### [facility] [address] [place] [address], [facility] Nucleated RBC/100 WBC Ratio (Bld) 0 % Normal 0-0 [facility] Comment on above: Order Comment: No: D o not add to previous draw Performed By: #### 4 1000, 56228, 03188, 10617 #### [facility] [address] [place] [address], [facility] PLAT CNT 281 10*3/uL Normal 150-400 [facility] Comment on above: Order Comment: No: D o not add to previous draw Performed By: #### 4 1000, 35177, 44375, 40535 #### [facility] [address] [place] [address], [facility] RBC #/vol (Bld) 3.76 10*6/uL Low 3.80-5.00 [facility] Comment on above: Order Comment: No: D o not add to previous draw Performed By: #### 4 1000, 25311, 67630, 50284 #### [facility] [address] [place] [address], [facility] WBC #/vol (Bld) 7.49 10*3/uL Normal 4.00-10.60 [facility] Comment on above: Order Comment: No: D o not add to previous draw Performed By: #### 4 1000, 56494, 40231, 87301 #### [facility] [address] [place] [address], [facility] PHOSPHORUS BLOODon 8 Phosphate mass conc 4.1 mg/dL Normal 2.5-5.0 [facility] Comment on above: Order Comment: No: D o not add to previous draw Performed By: #### 4 1000, 71646, 56801, 56693 #### [facility] [address] [place] [address], [place] POC GLUCOSE LABon 09-07-2018 Glucose mass conc 212 mg/dL High 70-100 [facility] Comment on above: Performed By: #### 4 1000, 62187, 67467, 36910 #### [facility] [address] [place] [address], [place] Glucose mass conc 132 mg/dL High 70-100 [facility] Comment on above: Performed By: #### 4 1000, 61497, 94520, 79803 #### [facility] [address] [place] [address], [facility] APTTon 09-06-2018 aPTT Coag time (Bld) 28.1 s Normal 25.0-35.0 [facility] Comment on above: Order Comment: [...] THIS PURPOSE. Performed By: #### 4 1000, 77508, 90900, 59279 #### [facility] [address] [place] [address], [facility] BASIC METABOLIC PANELon Calcium mass conc 9.0 mg/dL Normal 8.6-10.3 [facility] Comment on above: Order Comment: No: D o not add to previous draw Performed By: #### 4 1000, 97797, 51876, 14615 #### [facility] [address] [place] [address], [facility] Chloride molar conc 104 mmol/L Normal 98-107 [facility] Comment on above: Order Comment: No: D o not add to previous draw Performed By: #### 4 1000, 37781, 78285, 19559 #### [facility] [address] [place] [address], [place] CO2 molar conc 22 mmol/L Normal 21-31 [facility] Comment on above: Order Comment: No: D o not add to previous draw Performed By: #### 4 1000, 35917, 00037, 23830 #### [facility] [address] [place] [address], [place] Creatinine mass conc 0.95 mg/dL Normal 0.60-1.20 [facility] Comment on above: Order Comment: No: D o not add to previous draw Performed By: #### 4 1000, 71306, 78472, 99223 #### [facility] [address] [place] [address], [place] GFR/1.73 sq M predicted among blacks MDRD vol rate/area (S/P/Bld) mL/min/{1.73_m2} Normal >60 [facility] Comment on above: Order Comment: No: D o not add to previous draw Performed By: #### 4 1000, 49604, 25679, 90284 #### [facility] [address] [place] [address], [place] GFR/1.73 sq M predicted among non-blacks MDRD vol rate/area (S/P/Bld) 59 ml/min/1.73sq m Abnormal >60 [facility] Comment on above: Order Comment: No: D o not add to previous draw Performed By: #### 4 1000, 66943, 60355, 22373 #### [facility] [address] [place] [address], [place] Glucose mass conc 172 mg/dL High 70-100 [facility] Comment on above: Order Comment: No: D o not add to previous draw Performed By: #### 4 1000, 50321, 06907, 07341 #### [facility] [address] [place] [address], [place] Potassium molar conc 4.3 mmol/L Normal 3.5-5.1 [facility] Comment on above: Order Comment: No: D o not add to previous draw Performed By: #### 4 1000, 39703, 47815, 14225 #### [facility] [address] [place] [address], [place] Sodium molar conc 135 mmol/L Low 136-145 [facility] Comment on above: Order Comment: No: D o not add to previous draw Performed By: #### 4 1000, 81881, 20098, 70041 #### [facility] [address] [facility] Urea nitrogen mass conc 27 mg/dL High 7-25 [facility] Comment on above: Order Comment: No: D o not add to previous draw Performed By: #### 4 1000, 03733, 81145, 69943 #### [facility] [address] [facility] [address] CBC W/DIFFon 09-06-2018 ABS BASOPHILS 0.0 10*3/uL Normal 0.0-0.2 [facility] Comment on above: Order Comment: No: D o not add to previous draw Performed By: #### 4 1000, 06416, 31823, 77491 #### [facility] [address] [facility]. [address] ABS IMM GRANS 0.0 10*3/uL Normal 0.0-0.2 [facility] Comment on above: Order Comment: No: D o not add to previous draw Performed By: #### 4 1000, 15819, 46356, 50653 #### [facility] [address] [facility]. [address] ABS NEUTROPHILS 4.3 10*3/uL Normal 1.6-7.6 [facility] Comment on above: Order Comment: No: D o not add to previous draw Performed By: #### 4 1000, 78667, 44060, 75154 #### [facility] [address] [facility]. [address] Basophils #/vol (Bld) 0.3 % Normal 0.0-1.0 [facility] Comment on above: Order Comment: No: D o not add to previous draw Performed By: #### 4 1000, 06056, 71405, 42156 #### [facility] [address] [facility]. [address] Eosinophils #/vol (Bld) 0.2 10*3/uL Normal 0.0-0.5 [facility] Comment on above: Order Comment: No: D o not add to previous draw Performed By: #### 4 1000, 41970, 14656, 03297 #### [facility] [address] [place] [address], [facility] Eosinophils/100 WBC (Bld) 2.1 % Normal 0.0-6.0 [facility] Comment on above: Order Comment: No: D o not add to previous draw Performed By: #### 4 1000, 01791, 27835, 91093 #### [facility] [address] [place] [address], [facility] Erythrocyte distribution width Ratio (RBC) 12.7 % Normal 11.5-15.0 [facility] Comment on above: Order Comment: No: D o not add to previous draw Performed By: #### 4 1000, 36218, 74105, 42320 #### [facility] [address] Hematocrit Volume Fraction (Bld) 36.9 % Normal 36.0-45.0 [facility] Comment on above: Order Comment: No: D o not add to previous draw Performed By: #### 4 1000, 02646, 08571, 96390 #### [facility] [address] [place] [address], [facility] Hemoglobin mass conc (Bld) 12.2 g/dL Normal 12.0-15.0 [facility] Comment on above: Order Comment: No: D o not add to previous draw Performed By: #### 4 1000, 13408, 50147, 72772 #### [facility] [address] [place] [address], [facility] IMMATURE GRANS 0.3 % Normal 0.0-1.0 [facility] Comment on above: Order Comment: No: D o not add to previous draw Performed By: #### 4 1000, 27122, 85723, 60244 #### [facility] [address] [place] [address], [facility] Lymphocytes #/vol (Bld) 3.4 10*3/uL Normal 1.2-4.0 [facility] Comment on above: Order Comment: No: D o not add to previous draw Performed By: #### 4 1000, 74122, 89395, 20740 #### [facility] [address] [place] [address], [facility] Lymphocytes/100 WBC (Bld) 38.3 % Normal 20.0-45.0 [facility] Comment on above: Order Comment: No: D o not add to previous draw Performed By: #### 4 1000, 90017, 35854, 77931 #### [facility] [address] [place] [address], [facility] MCH Entitic mass (RBC) 30.6 pg Normal 27.0-33.0 [facility] Comment on above: Order Comment: No: D o not add to previous draw Performed By: #### 4 1000, 32326, 82257, 31583 #### [facility] [address] [place] [address], [facility] MCHC mass conc (RBC) 33.1 g/dL Normal 32.0-35.0 [facility] Comment on above: Order Comment: No: D o not add to previous draw Performed By: #### 4 1000, 02721, 95451, 44963 #### [facility] [address] [place] [address], [facility] MCV Entitic volume (RBC) 92.5 fL Normal 82.0-98.0 [facility] Comment on above: Order Comment: No: D o not add to previous draw Performed By: #### 4 1000, 87383, 13531, 68551 #### [facility] [address] [place] [address], [facility] Monocytes #/vol (Bld) 0.9 10*3/uL Normal 0.1-1.0 [facility] Comment on above: Order Comment: No: D o not add to previous draw Performed By: #### 4 1000, 85787, 44889, 53379 #### [facility] [address] [place] [address], [facility] MONOS 10.0 % Normal 5.0-12.0 [facility] Comment on above: Order Comment: No: D o not add to previous draw Performed By: #### 4 1000, 53375, 40173, 15630 #### [facility] [address] [place] [address], [facility] Neutrophils/100 WBC (Bld) 49.0 % Normal 40.0-72.0 [facility] Comment on above: Order Comment: No: D o not add to previous draw Performed By: #### 4 1000, 75939, 10869, 41863 #### [facility] [address] [place] [address], [facility] Nucleated RBC/100 WBC Ratio (Bld) 0 % Normal 0-0 [facility] Comment on above: Order Comment: No: D o not add to previous draw Performed By: #### 4 1000, 21274, 41317, 27055 #### [facility] [address] [place] [address], [facility] PLAT CNT 278 10*3/uL Normal 150-400 [facility] Comment on above: Order Comment: No: D o not add to previous draw Performed By: #### 4 1000, 72072, 52028, 26262 #### [facility] [address] [place] [address], [place] [facility] RBC #/vol (Bld) 3.99 10*6/uL Normal 3.80-5.00 [facility] Comment on above: Order Comment: No: D o not add to previous draw Performed By: #### 4 1000, 27961, 05486, 62969 #### [facility] [address] [place] [id number], [place] WBC #/vol (Bld) 8.84 10*3/uL Normal 4.00-10.60 [facility] Comment on above: Order Comment: No: D o not add to previous draw Performed By: #### 4 1000, 38981, 68638, 11715 #### [facility] [address] [place] [address], [facility] Cardiovascular Lab Reporton 09-06-2018 Cardiovascular Lab Report [facility] Patient Name: [facility] Obinna Wright MR #: [id number] Department of Physician: Yasmine Joseph MVincent Division of Service Date: 09/06/2018 Cardiology Birthdate: 1955 Adult Cardiovascular Room #: [id number] [facility] [address] [place] [address] Cardiovascular Laboratory Report FINAL IMPRESSION: 1. Hemodynamically [...] she was referred for heart catheterization from [facility]. PROCEDURE: 1. Coronary angiography. 2. FFR of LAD. 3. FFR of circumflex. 4. Balloon angioplasty LAD. 5. IC nitroglycerin. 6. Ultrasound-guided access of the ulnar artery. 7. Left heart catheterization. RECOMMENDATION: 1. The patient should be started on isosorbide mononitrate 60 mg on a daily basis. 2. Discontinue heparin and continue post catheterization IV hydration. Case was discussed with the primary spot sprayer, Dr. Mcdonald. 3. Follow up with Dr. Mcdonald in 1-2 weeks. METHODS: After risks, benefits, and alternatives were explained to the patient, the patient was brought to catheterization lab in a fasting state. Access was obtained into the right ulnar artery under ultrasound guidance and a 6-Macedonian Terumo [place] sheath was placed in right radial artery. 5-Macedonian Jl3.5 and JR 5 catheter was used for diagnostic angiography. After angiography was performed, we placed a 6-Macedonian XB3 guide for better angiography. At this [...] P Jennifer Cormier M.D. Date Dict: 09/06/2018/09:27 Janie Cormier M.D. Date Trans: 09/06/2018 11:28 Elisabeth/nav [id number] cc: Faraz Osman M.D. [address] [place] [address] Garrett Mcdonald M.D. [address] [place] [address] Wilmar Morris D.O. [address] [facility] [address] [place] [address] Normal [facility] MAGNESIUM BLOODon 09-06-2018 Magnesium mass conc 2.0 mg/dL Normal 1.9-2.7 [facility] Comment on above: Order Comment: No: D o not add to previous draw Performed By: #### 4 1000, 34179, 11658, 03751 #### [facility] [address] [place] [address], [place] PHOSPHORUS BLOODon 8 Phosphate mass conc 5.2 mg/dL High 2.5-5.0 [facility] Comment on above: Order Comment: No: D o not add to previous draw Performed By: #### 4 1000, 58779, 22151, 08365 #### [facility] [address] [place] [address], [place] POC GLUCOSE LABon 09-06-2018 Glucose mass conc 203 mg/dL High 70-100 [facility] Comment on above: Performed By: #### 4 1000, 10394, 51253, 26771 #### [facility] [address] [place] [address], [facility] Glucose mass conc 176 mg/dL High 70-100 [facility] Comment on above: Performed By: #### 4 1000, 67155, 14419, 70010 #### [facility] [address] [place] [address], [facility] Glucose mass conc 199 mg/dL High 70-100 [facility] Comment on above: Performed By: #### 4 1000, 87844, 76546, 85200 #### [facility] [address] [place] [address], [facility] Glucose mass conc 158 mg/dL High 70-100 [facility] Comment on above: Performed By: #### 4 1000, 97830, 36225, 32499 #### [facility] [address] [place] [address], [facility] PROTHROMBIN TIMEon 8 INR Coag RelTime (PPP) 1.14 {INR} Normal 0.91-1.16 [facility] Comment on above: Order Comment: No: D [...] CHEST 1995;108:231S-246S. Performed By: #### 4 1000, 81622, 81958, 71403 #### [facility] [address] Prothrombin time (PT) Coag time (PPP) 14.6 s Normal 12.3-14.8 [facility] Comment on above: Order Comment: No: D o not add to previous draw Result Comment: ALL RESULTS MUST BE INTERPRETED WITH RESPECT TO BLOOD DRAWING ARTIFACT OR DILUTION ERROR OF ANTICOAGULANT AT THE TIME OF SAMPLING. Performed By: #### 4 1000, 33578, 55812, 97124 #### [facility] [address] [facility]. [address] TROPONIN-Ion 09-06-2018 Troponin I.cardiac mass conc 0.00 ng/mL Normal 0.00-0.04 [facility] Comment on above: Order Comment: No: D o not add to previous draw Result Comment: REFE RENCE RANGES: 0.00 - 0.14 ng/ml NEGATIVE 0.15 - 0.25 ng/ml INDETERMINATE > 0.25 ng/ml INDICATIVE OF AN M.I. Performed By: #### 4 1000, 78659, 89553, 72277 #### [facility] [address] BASIC METABOLIC PANELon Calcium mass conc 9.3 mg/dL Normal 8.6-10.3 [facility] Comment on above: Order Comment: No: D o not add to previous draw Performed By: #### 4 1000, 15136, 57012, 02692 #### [facility] [address] [place] [address], [facility] Chloride molar conc 104 mmol/L Normal 98-107 [facility] Comment on above: Order Comment: No: D o not add to previous draw Performed By: #### 4 1000, 59430, 43291, 34196 #### [facility] [address] [place] [address], [place] CO2 molar conc 23 mmol/L Normal 21-31 [facility] Comment on above: Order Comment: No: D o not add to previous draw Performed By: #### 4 1000, 92431, 24981, 96968 #### [facility] [address] [place] [address], [place] Creatinine mass conc 0.84 mg/dL Normal 0.60-1.20 [facility] Comment on above: Order Comment: No: D o not add to previous draw Performed By: #### 4 1000, 33475, 62287, 15959 #### [facility] [address] [place] [address], [place] GFR/1.73 sq M predicted among blacks MDRD vol rate/area (S/P/Bld) mL/min/{1.73_m2} Normal >60 [facility] Comment on above: Order Comment: No: D o not add to previous draw Performed By: #### 4 1000, 47446, 67758, 38882 #### [facility] [address] [place] [address], [place] GFR/1.73 sq M predicted among non-blacks MDRD vol rate/area (S/P/Bld) mL/min/{1.73_m2} Normal >60 [facility] Comment on above: Order Comment: No: D o not add to previous draw Performed By: #### 4 1000, 63550, 39576, 51471 #### [facility] [address] [place] [address], [place] Glucose mass conc 124 mg/dL High 70-100 [facility] Comment on above: Order Comment: No: D o not add to previous draw Performed By: #### 4 1000, 58507, 16023, 49100 #### [facility] [address] [place] [address], [place] Potassium molar conc 4.2 mmol/L Normal 3.5-5.1 [facility] Comment on above: Order Comment: No: D o not add to previous draw Performed By: #### 4 1000, 29650, 68398, 42183 #### [facility] [address] Sodium molar conc 137 mmol/L Normal 136-145 [facility] Comment on above: Order Comment: No: D o not add to previous draw Performed By: #### 4 1000, 26419, 05401, 53702 #### [facility] [address] [facility] Urea nitrogen mass conc 25 mg/dL Normal 7-25 [facility] Comment on above: Order Comment: No: D o not add to previous draw Performed By: #### 4 1000, 75175, 07686, 04634 #### [facility] [address] [facility] CBC W/DIFFon 09-05-2018 ABS BASOPHILS 0.0 10*3/uL Normal 0.0-0.2 [facility] Comment on above: Performed By: #### 4 1000, 76862, 94888, 49668 #### [facility] [address] [facility] ABS IMM GRANS 0.0 10*3/uL Normal 0.0-0.2 [facility] Comment on above: Performed By: #### 4 1000, 43385, 01014, 60739 #### [facility] [address] ABS NEUTROPHILS 5.5 10*3/uL Normal 1.6-7.6 [facility] Comment on above: Performed By: #### 4 1000, 52252, 71802, 91535 #### [facility] [address] Basophils #/vol (Bld) 0.4 % Normal 0.0-1.0 [facility] Comment on above: Performed By: #### 4 1000, 81635, 18739, 23366 #### [facility] [address] Eosinophils #/vol (Bld) 0.2 10*3/uL Normal 0.0-0.5 [facility] Comment on above: Performed By: #### 4 1000, 84245, 21026, 00613 #### [facility] [address] [facility] Eosinophils/100 WBC (Bld) 1.9 % Normal 0.0-6.0 [facility] Comment on above: Performed By: #### 4 1000, 37741, 72960, 98435 #### [facility] [address] Erythrocyte distribution width Ratio (RBC) 12.6 % Normal 11.5-15.0 [facility] Comment on above: Performed By: #### 4 1000, 81100, 97775, 63682 #### [facility] [address] [facility] Hematocrit Volume Fraction (Bld) 40.6 % Normal 36.0-45.0 [facility] Comment on above: Performed By: #### 4 1000, 33432, 42379, 35587 #### [facility] [address] [facility] Hemoglobin mass conc (Bld) 13.4 g/dL Normal 12.0-15.0 [facility] Comment on above: Performed By: #### 4 1000, 10308, 45866, 85529 #### [facility] [address] [facility] IMMATURE GRANS 0.2 % Normal 0.0-1.0 [facility] Comment on above: Performed By: #### 4 1000, 56357, 80217, 79336 #### [facility] [address] Lymphocytes #/vol (Bld) 3.5 10*3/uL Normal 1.2-4.0 [facility] Comment on above: Performed By: #### 4 1000, 89029, 59886, 66482 #### [facility] [address] [place] [address], [facility] Lymphocytes/100 WBC (Bld) 35.3 % Normal 20.0-45.0 [facility] Comment on above: Performed By: #### 4 1000, 40058, 34923, 19986 #### [facility] [address] [facility] MCH Entitic mass (RBC) 30.3 pg Normal 27.0-33.0 [facility] Comment on above: Performed By: #### 4 1000, 83919, 32161, 43719 #### [facility] [address] [facility] MCHC mass conc (RBC) 33.0 g/dL Normal 32.0-35.0 [facility] Comment on above: Performed By: #### 4 1000, 90994, 18895, 12259 #### [facility] [address] [facility] MCV Entitic volume (RBC) 91.9 fL Normal 82.0-98.0 [facility] Comment on above: Performed By: #### 4 1000, 68421, 58034, 40480 #### [facility] [address] [place] [address], [facility] Monocytes #/vol (Bld) 0.7 10*3/uL Normal 0.1-1.0 [facility] Comment on above: Performed By: #### 4 1000, 94295, 57477, 14143 #### [facility] [address] [place] [address], [facility] MONOS 7.4 % Normal 5.0-12.0 [facility] Comment on above: Performed By: #### 4 1000, 74276, 62567, 10919 #### [facility] [address] [facility] [place] [address], [facility] Neutrophils/100 WBC (Bld) 54.8 % Normal 40.0-72.0 [facility] Comment on above: Performed By: #### 4 1000, 95074, 48047, 52392 #### [facility] [address] [facility] Nucleated RBC/100 WBC Ratio (Bld) 0 % Normal 0-0 [facility] Comment on above: Performed By: #### 4 1000, 45494, 62208, 47574 #### [facility] [address] [place] [place] [address], [facility] PLAT CNT 325 10*3/uL Normal 150-400 [facility] Comment on above: Performed By: #### 4 1000, 16694, 96356, 77873 #### [facility] [address] [place] [address], [facility] RBC #/vol (Bld) 4.42 10*6/uL Normal 3.80-5.00 [facility] Comment on above: Performed By: #### 4 1000, 40230, 64718, 55668 #### [facility] [address] [place] [address], [facility] WBC #/vol (Bld) 9.97 10*3/uL Normal 4.00-10.60 [facility] Comment on above: Performed By: #### 4 1000, 80486, 71918, 89765 #### [facility] [address] [facility] History and Physicalon 09-05 History and Physical MR#: [id number] [facility] Name: Kyle Powell Admitted: 09/05/2018 Date of : 1955 Attending Physician: Jonah Sanabria MD Room #: [id number] Discharge Date: HISTORY AND PHYSICAL HISTORY OF PRESENT ILLNESS: The patient is a 62-year-old female, very pleasant with past medical history significant for coronary artery disease, history of multiple strokes in the past, presented to the [facility] from the [facility] as a direct admit. The patient stated that 3 days ago she went to the [facility] because of the chest pain that was located centrally, nonradiating, getting worse with activity and then she was admitted in [facility] for 3 days. Today, she went for the Persantine stress test. When they were injecting Persantine, the patient found to have ST elevation and they aborted the procedure and decision were made to transfer the patient to the [facility] for a possible cardiac cath. 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 At the time of encounter, the patient is sitting comfortably in bed, not in acute distress. The patient has last cardiac cath in [facility] in 01/2017. The patient had severe ostial [...] Have been reconciled. LABORATORY DATA: From the [facility], troponin 0.01, last. The patient hemoglobin and BMP were stable. We ordered a repeat BMP and CBC and tropes level that are pending. CBC is unremarkable at our system. ASSESSMENT AND PLAN: 1. Atypical chest pain, rule out ACS. Persantine as a stress test was aborted at the [facility] because of ST-segment changes. We [...] P/Jonah Sanabria MD Date Trans: 09/05/2018 04:59 P/mmo [id number] Normal [facility] MAGNESIUM BLOODon 09-05-2018 Magnesium mass conc 1.9 mg/dL Normal 1.9-2.7 [facility] Comment on above: Order Comment: No: D o not add to previous draw Performed By: #### 4 1000, 91548, 63852, 22487 #### [facility] [address] [place] [address], [facility] PHOSPHORUS BLOODon 8 Phosphate mass conc 4.5 mg/dL Normal 2.5-5.0 [facility] Comment on above: Order Comment: No: D o not add to previous draw Performed By: #### 4 1000, 22155, 58110, 67440 #### [facility] [address] [place] [address], [facility] POC GLUCOSE LABon 09-05-2018 Glucose mass conc 192 mg/dL High 70-100 [facility] Comment on above: Performed By: #### 4 1000, 23469, 81580, 10805 #### [facility] [address] [place] [address], [facility] Glucose mass conc 119 mg/dL High 70-100 [facility] Comment on above: Performed By: #### 4 1000, 44824, 46401, 79650 #### [facility] [address] [place] [address], [facility] TROPONIN-Ion 09-05-2018 Troponin I.cardiac mass conc 0.01 ng/mL Normal 0.00-0.04 [facility] Comment on above: Order Comment: No: D o not add to previous draw Result Comment: REFE RENCE RANGES: 0.00 - 0.04 ng/ml NORMAL 0.05 - 0.50 ng/ml INDETERMINATE > 0.50 ng/ml CONSISTENT WITH AN M.I. Performed By: #### 4 1000, 53594, 63762, 26943 #### [facility] [address] [place] [address], [facility] Troponin I.cardiac mass conc 0.01 ng/mL Normal 0.00-0.04 [facility] Comment on above: Order Comment: No: D o not add to previous draw Result Comment: REFE RENCE RANGES: 0.00 - 0.04 ng/ml NORMAL 0.05 - 0.50 ng/ml INDETERMINATE > 0.50 ng/ml CONSISTENT WITH AN M.I. Performed By: #### 4 1000, 59051, 72960, 63263 #### [facility] [address] [place] [address], [place] POC GLUCOSE LABon 05-03-2018 Glucose mass conc 299 mg/dL High 70-100 [facility] Comment on above: Performed By: #### 4 1000, 74569, 97880, 82914 #### [facility] [address] [place] [address], [facility] Glucose mass conc 233 mg/dL High 70-100 [facility] Comment on above: Performed By: #### 4 1000, 37962, 41099, 57418 #### [facility] [address] [place] [address], [facility] BASIC METABOLIC PANELon Calcium mass conc 9.3 mg/dL Normal 8.6-10.3 [facility] Comment on above: Order Comment: No: D o not add to previous draw Performed By: #### 4 1000, 47883, 78456, 68471 #### [facility] [address] [place] [address], [place] Chloride molar conc 103 mmol/L Normal 98-107 [facility] Comment on above: Order Comment: No: D o not add to previous draw Performed By: #### 4 1000, 94829, 69916, 52416 #### [facility] [address] [place] [address], [place] CO2 molar conc 27 mmol/L Normal 21-31 [facility] Comment on above: Order Comment: No: D o not add to previous draw Performed By: #### 4 1000, 82202, 40020, 50921 #### [facility] [address] [place] [address], [facility] Creatinine mass conc 0.80 mg/dL Normal 0.60-1.20 [facility] Comment on above: Order Comment: No: D o not add to previous draw Performed By: #### 4 1000, 87564, 19855, 85960 #### [facility] [address] [place] [address], [place] GFR/1.73 sq M predicted among blacks MDRD vol rate/area (S/P/Bld) mL/min/{1.73_m2} Normal >60 [facility] Comment on above: Order Comment: No: D o not add to previous draw Performed By: #### 4 1000, 83659, 71577, 30652 #### [facility] [address] [place] [address], [facility] GFR/1.73 sq M predicted among non-blacks MDRD vol rate/area (S/P/Bld) mL/min/{1.73_m2} Normal >60 [facility] Comment on above: Order Comment: No: D o not add to previous draw Performed By: #### 4 1000, 03808, 38485, 20348 #### [facility] [address] [place] [address], [facility] Glucose mass conc 272 mg/dL High 70-100 [facility] Comment on above: Order Comment: No: D o not add to previous draw Performed By: #### 4 1000, 77965, 09475, 82111 #### [facility] [address] [place] [address], [place] Potassium molar conc 4.1 mmol/L Normal 3.5-5.1 [facility] Comment on above: Order Comment: No: D o not add to previous draw Performed By: #### 4 1000, 55111, 50455, 01111 #### [facility] [address] [place] [address], [facility] Sodium molar conc 138 mmol/L Normal 136-145 [facility] Comment on above: Order Comment: No: D o not add to previous draw Performed By: #### 4 1000, 54636, 52539, 24151 #### [facility] [address] [place] [id number], [facility] Urea nitrogen mass conc 19 mg/dL Normal 7-25 [facility] Comment on above: Order Comment: No: D o not add to previous draw Performed By: #### 4 1000, 28191, 06352, 94967 #### [facility] [address] [place] [id number], [facility] CBC COMPLETE BLOOD COUNTon 0 05-02-2018 Erythrocyte distribution width Ratio (RBC) 12.9 % Normal 11.5-15.0 [facility] Comment on above: Order Comment: No: D o not add to previous draw Performed By: #### 4 1000, 77453, 65029, 28696 #### [facility] [address] [place] [id number], [facility] Hematocrit Volume Fraction (Bld) 37.6 % Normal 36.0-45.0 [facility] Comment on above: Order Comment: No: D o not add to previous draw Performed By: #### 4 1000, 44242, 15043, 89366 #### [facility] [address] [place] [id number], [facility] Hemoglobin mass conc (Bld) 12.2 g/dL Normal 12.0-15.0 [facility] Comment on above: Order Comment: No: D o not add to previous draw Performed By: #### 4 1000, 56454, 89245, 56654 #### [facility] [address] [place] [address], [place] MCH Entitic mass (RBC) 29.7 pg Normal 27.0-33.0 [facility] Comment on above: Order Comment: No: D o not add to previous draw Performed By: #### 4 1000, 69602, 34704, 69656 #### [facility] [address] [place] [address], [facility] MCHC mass conc (RBC) 32.4 g/dL Normal 32.0-35.0 [facility] Comment on above: Order Comment: No: D o not add to previous draw Performed By: #### 4 1000, 77462, 14520, 05669 #### [facility] [address] [place] [address], [facility] MCV Entitic volume (RBC) 91.5 fL Normal 82.0-98.0 [facility] Comment on above: Order Comment: No: D o not add to previous draw Performed By: #### 4 1000, 76461, 81904, 90400 #### [facility] [address] Nucleated RBC/100 WBC Ratio (Bld) 0 % Normal 0-0 [facility] Comment on above: Order Comment: No: D o not add to previous draw Performed By: #### 4 1000, 78151, 61165, 26427 #### [facility] [address] [place] [address], [facility] PLAT CNT 229 10*3/uL Normal 150-400 [facility] Comment on above: Order Comment: No: D o not add to previous draw Performed By: #### 4 1000, 75161, 85832, 34873 #### [facility] [address] [place] [address], [facility] RBC #/vol (Bld) 4.11 10*6/uL Normal 3.80-5.00 [facility] Comment on above: Order Comment: No: D o not add to previous draw Performed By: #### 4 1000, 29700, 47856, 20114 #### [facility] [address] [place] [address], [facility] WBC #/vol (Bld) 6.30 10*3/uL Normal 4.00-10.60 [facility] Comment on above: Order Comment: No: D o not add to previous draw Performed By: #### 4 1000, 25493, 48993, 67237 #### [facility] [facility] [address] [place] [address], [place] POC GLUCOSE LABon 05-02-2018 Glucose mass conc 295 mg/dL High 70-100 [facility] Comment on above: Performed By: #### 4 1000, 97650, 77747, 36228 #### [facility] [address] [place] [address], [place] Glucose mass conc 327 mg/dL High 70-100 [facility] Comment on above: Performed By: #### 4 1000, 44749, 96258, 75025 #### [facility] [address] [place] [address], [place] Glucose mass conc 326 mg/dL High 70-100 [facility] Comment on above: Performed By: #### 4 1000, 18603, 73853, 51475 #### [facility] [address] [place] [address], [place] Glucose mass conc 265 mg/dL High 70-100 [facility] Comment on above: Performed By: #### 5 7307, 38350 #### [facility] [address] [place] [address], [place] Glucose mass conc 347 mg/dL High 70-100 [facility] Comment on above: Performed By: #### 5 7307, 22457 #### [facility] [address] [place] [address], [place] BASIC METABOLIC PANELon Calcium mass conc 9.3 mg/dL Normal 8.6-10.3 [facility] Comment on above: Order Comment: No: D o not add to previous draw Performed By: #### 5 7307, 22878 #### [facility] [address] [place] [address], [place] Chloride molar conc 103 mmol/L Normal 98-107 [facility] Comment on above: Order Comment: No: D o not add to previous draw Performed By: #### 5 7307, 19966 #### [facility] [address] [place] [address], [place] CO2 molar conc 24 mmol/L Normal 21-31 [facility] Comment on above: Order Comment: No: D o not add to previous draw Performed By: #### 5 7307, 32918 #### [facility] [address] [place] [address], [place] Creatinine mass conc 0.78 mg/dL Normal 0.60-1.20 [facility] Comment on above: Order Comment: No: D o not add to previous draw Performed By: #### 5 73, 09818 #### [facility] [address] [place] [address], [place] GFR/1.73 sq M predicted among blacks MDRD vol rate/area (S/P/Bld) mL/min/{1.73_m2} Normal >60 [facility] Comment on above: Order Comment: No: D o not add to previous draw Performed By: #### 5 73, 11982 #### [facility] [address] [place] [address], [place] GFR/1.73 sq M predicted among non-blacks MDRD vol rate/area (S/P/Bld) mL/min/{1.73_m2} Normal >60 [facility] Comment on above: Order Comment: No: D o not add to previous draw Performed By: #### 5 7307, 77985 #### [facility] [address] [place] [address], [place] Glucose mass conc 270 mg/dL High 70-100 [facility] Comment on above: Order Comment: No: D o not add to previous draw Performed By: #### 5 7307, 91296 #### [facility] [address] [place] [address], [facility] Potassium molar conc 4.2 mmol/L Normal 3.5-5.1 [facility] Comment on above: Order Comment: No: D o not add to previous draw Performed By: #### 5 7307, 08721 #### [facility] [address] [place] [address], [facility] Sodium molar conc 136 mmol/L Normal 136-145 [facility] Comment on above: Order Comment: No: D o not add to previous draw Performed By: #### 5 73, 85410 #### [facility] [address] [place] [address], [facility] Urea nitrogen mass conc 20 mg/dL Normal 7-25 [facility] Comment on above: Order Comment: No: D o not add to previous draw Performed By: #### 5 73, 83268 #### [facility] [address] [place] [id number], [facility] CBC COMPLETE BLOOD COUNTon 0 05-01-2018 Erythrocyte distribution width Ratio (RBC) 13.0 % Normal 11.5-15.0 [facility] Comment on above: Order Comment: No: D o not add to previous draw Performed By: #### 5 7307, 44643 #### [facility] [address] [place] [address], [facility] Hematocrit Volume Fraction (Bld) 37.6 % Normal 36.0-45.0 [facility] Comment on above: Order Comment: No: D o not add to previous draw Performed By: #### 5 7307, 90290 #### [facility] [address] [place] [address], [facility] Hemoglobin mass conc (Bld) 12.5 g/dL Normal 12.0-15.0 [facility] Comment on above: Order Comment: No: D o not add to previous draw Performed By: #### 5 7307, 87629 #### [facility] [address] MCH Entitic mass (RBC) 30.2 pg Normal 27.0-33.0 [facility] Comment on above: Order Comment: No: D o not add to previous draw Performed By: #### 5 7307, 99089 #### [facility] [address] [place] [address], [facility] MCHC mass conc (RBC) 33.2 g/dL Normal 32.0-35.0 [facility] Comment on above: Order Comment: No: D o not add to previous draw Performed By: #### 5 73, 42077 #### [facility] [address] MCV Entitic volume (RBC) 90.8 fL Normal 82.0-98.0 [facility] Comment on above: Order Comment: No: D o not add to previous draw Performed By: #### 5 73, 11165 #### [facility] [address] Nucleated RBC/100 WBC Ratio (Bld) 0 % Normal 0-0 [facility] Comment on above: Order Comment: No: D o not add to previous draw Performed By: #### 5 73, 34404 #### [facility] [address] [place] [address], [facility] PLAT CNT 252 10*3/uL Normal 150-400 [facility] Comment on above: Order Comment: No: D o not add to previous draw Performed By: #### 5 73, 62220 #### [facility] [address] [place] [address], [facility] RBC #/vol (Bld) 4.14 10*6/uL Normal 3.80-5.00 [facility] Comment on above: Order Comment: No: D o not add to previous draw Performed By: #### 5 7307, 49541 #### [facility] [address] WBC #/vol (Bld) 6.80 10*3/uL Normal 4.00-10.60 [facility] Comment on above: Order Comment: No: D o not add to previous draw Performed By: #### 5 7307, 63132 #### [facility] [address] [place] [address], [facility] POC GLUCOSE LABon 05-01-2018 Glucose mass conc 300 mg/dL High 70-100 [facility] Comment on above: Performed By: #### 5 7306, 38175 #### [facility] [address] [place] [address], [facility] Glucose mass conc 344 mg/dL High 70-100 [facility] Comment on above: Performed By: #### 5 7306, 84990 #### [facility] [address] [place] [address], [facility] Glucose mass conc 335 mg/dL High 70-100 [facility] Comment on above: Performed By: #### 5 7306, 97404 #### [facility] [address] [place] [address], [facility] Glucose mass conc 263 mg/dL High 70-100 [facility] Comment on above: Performed By: #### 5 73, 66251 #### [facility] [address] [facility] BASIC METABOLIC PANELon 04-02 Calcium mass conc 9.0 mg/dL Normal 8.6-10.3 [facility] Comment on above: Order Comment: No: D o not add to previous draw Performed By: #### 5 7307, 13496 #### [facility] [address] [place] [address], [facility] Chloride molar conc 105 mmol/L Normal 98-107 [facility] Comment on above: Order Comment: No: D o not add to previous draw Performed By: #### 5 7307, 95862 #### [facility] [address] [place] [address], [place] CO2 molar conc 25 mmol/L Normal 21-31 [facility] Comment on above: Order Comment: No: D o not add to previous draw Performed By: #### 5 73, 21931 #### [facility] [address] [place] [address], [place] Creatinine mass conc 0.80 mg/dL Normal 0.60-1.20 [facility] Comment on above: Order Comment: No: D o not add to previous draw Performed By: #### 5 73, 36265 #### [facility] [address] [place] [address], [place] GFR/1.73 sq M predicted among blacks MDRD vol rate/area (S/P/Bld) mL/min/{1.73_m2} Normal >60 [facility] Comment on above: Order Comment: No: D o not add to previous draw Performed By: #### 5 73, 79810 #### [facility] [address] [place] [address], [place] GFR/1.73 sq M predicted among non-blacks MDRD vol rate/area (S/P/Bld) mL/min/{1.73_m2} Normal >60 [facility] Comment on above: Order Comment: No: D o not add to previous draw Performed By: #### 5 73, 08181 #### [facility] [address] [place] [address], [place] Glucose mass conc 238 mg/dL High 70-100 [facility] Comment on above: Order Comment: No: D o not add to previous draw Performed By: #### 5 7307, 21979 #### [facility] [address] [place] [address], [place] Potassium molar conc 3.9 mmol/L Normal 3.5-5.1 [facility] Comment on above: Order Comment: No: D o not add to previous draw Performed By: #### 5 73, 51776 #### [facility] [address] [place] [address], [facility] Sodium molar conc 137 mmol/L Normal 136-145 [facility] Comment on above: Order Comment: No: D o not add to previous draw Performed By: #### 5 73, 35253 #### [facility] [address] [place] [address], [facility] Urea nitrogen mass conc 21 mg/dL Normal 7-25 [facility] Comment on above: Order Comment: No: D o not add to previous draw Performed By: #### 5 73, 08598 #### [facility] [address] CBC COMPLETE BLOOD COUNTon 0 - Erythrocyte distribution width Ratio (RBC) 12.9 % Normal 11.5-15.0 [facility] Comment on above: Order Comment: No: D o not add to previous draw Performed By: #### 5 73, 45948 #### [facility] [address] Hematocrit Volume Fraction (Bld) 37.4 % Normal 36.0-45.0 [facility] Comment on above: Order Comment: No: D o not add to previous draw Performed By: #### 5 7307, 96915 #### [facility] [address] [place] [address], [facility] Hemoglobin mass conc (Bld) 12.2 g/dL Normal 12.0-15.0 [facility] Comment on above: Order Comment: No: D o not add to previous draw Performed By: #### 5 7307, 13925 #### [facility] [address] [place] [address], [facility] MCH Entitic mass (RBC) 29.5 pg Normal 27.0-33.0 [facility] Comment on above: Order Comment: No: D o not add to previous draw Performed By: #### 5 7307, 74443 #### [facility] [address] MCHC mass conc (RBC) 32.6 g/dL Normal 32.0-35.0 [facility] Comment on above: Order Comment: No: D o not add to previous draw Performed By: #### 5 73, 35112 #### [facility] [address] MCV Entitic volume (RBC) 90.6 fL Normal 82.0-98.0 [facility] Comment on above: Order Comment: No: D o not add to previous draw Performed By: #### 5 73, 82525 #### [facility] [address] Nucleated RBC/100 WBC Ratio (Bld) 0 % Normal 0-0 [facility] Comment on above: Order Comment: No: D o not add to previous draw Performed By: #### 5 73, 26805 #### [facility] [address] [place] [address], [facility] PLAT CNT 262 10*3/uL Normal 150-400 [facility] Comment on above: Order Comment: No: D o not add to previous draw Performed By: #### 5 73, 29698 #### [facility] [address] [place] [address], [facility] RBC #/vol (Bld) 4.13 10*6/uL Normal 3.80-5.00 [facility] Comment on above: Order Comment: No: D o not add to previous draw Performed By: #### 5 7307, 67163 #### [facility] [address] [place] [address], [facility] WBC #/vol (Bld) 6.73 10*3/uL Normal 4.00-10.60 [facility] Comment on above: Order Comment: No: D o not add to previous draw Performed By: #### 5 7307, 42430 #### [facility] [address] [place] [address], [facility] LIPID PROFILEon 04-30-2018 Cholesterol in HDL mass conc 27 mg/dL Normal 23-92 [facility] Comment on above: Order Comment: No: D o not add to previous draw Result Comment: Slig ht variation in normal range could be due to gender and/or age. HDL CHOLESTEROL REFERENCE RANGE: 20 years and older Cardiovascular Risk > or =60 mg/dL Desirable 40 TO 59 mg/dL Low Risk <40 mg/dL High Risk Performed By: #### 5 7307, 59970 #### [facility] [address] [place] [address], [facility] Cholesterol in LDL mass conc 0 mg/dL Normal 0-130 [facility] Comment on above: Order Comment: No: D o not add to previous draw Result Comment: LDL IS A CALCULATION LDL IS ONLY VALID IF THE TRIG IS LESS THAN 400. Performed By: #### 5 7307, 55964 #### [facility] [address] [place] [address], [facility] Cholesterol mass conc 112 mg/dL Low 120-200 [facility] Comment on above: Order Comment: No: D o not add to previous draw Result Comment: CHOL ESTEROL REFERENCE RANGE: 20 YEARS AND OLDER CARDIOVASCULAR RISK Less than 200 mg/dl Low Risk 200 to 239 mg/dl Borderline Risk 240 mg/dl and greater High Risk Performed By: #### 5 7307, 43039 #### [facility] [address] [place] [address], [facility] Cholesterol.total/Cho lesterol in HDL mass ratio 4.1 {ratio} Normal .0-4.5 [facility] Comment on above: Order Comment: No: D o not add to previous draw Performed By: #### 5 7307, 95911 #### [facility] [address] [place] [address], [place] NON-HDL CHOLESTEROL 85 mg/dL Normal [facility] Comment on above: Order Comment: No: D o not add to previous draw Performed By: #### 5 7307, 96253 #### [facility] [address] Triglyceride mass conc 424 mg/dL High 40-149 [facility] Comment on above: Order Comment: No: D o not add to previous draw Result Comment: TRIG LYCERIDE REFERENCE RANGE: 20 YEARS AND OLDER CARDIOVASCULAR RISK LESS THAN 150 mg/dl LOW RISK 150 TO 199 mg/dl BORDERLINE RISK 200 mg/dl AND GREATER HIGH RISK Performed By: #### 5 7307, 05302 #### [facility] [address] VLDL CHOL 85 mg/dL High 0-40 [facility] Comment on above: Order Comment: No: D o not add to previous draw Performed By: #### 5 7307, 56231 #### [facility] [address] MAGNESIUM BLOODon 04-30-2018 Magnesium mass conc 1.8 mg/dL Low 1.9-2.7 [facility] Comment on above: Order Comment: No: D o not add to previous draw Performed By: #### 5 7307, 62909 #### [facility] [address] MRI BRAIN WO CONTRASTon 04-02 MRI BRAIN WO CONTRAST [facility] Department of Radiology [address] [place] [id number] Patient Name: KYLE POWELL : 1955 Sex: F Age: Race: White Pt. Location: [place] [address] Patient Status: I Ordered Date: 04/28/2018 6:40:00 [...] findings. Electronically signed by:Cornelius Bennett. Transcribed by: [id number], User Resident: ADIS BARRETT Electronically Signed by: CORNELIUS BENNETT @ 05/01/2018 03:45 PM I personally read this/these film(s) with this resident Normal [facility] Comment on above: Order Comment: No: D o not add to previous draw PHOSPHORUS BLOODon 8 Phosphate mass conc 4.7 mg/dL Normal 2.5-5.0 [facility] Comment on above: Order Comment: No: D o not add to previous draw Performed By: #### 5 7307, 36290 #### [facility] [address] [place] [address], [place] POC GLUCOSE LABon 04-30-2018 Glucose mass conc 302 mg/dL High 70-100 [facility] Comment on above: Performed By: #### 5 7307, 51175 #### [facility] [address] [place] [address], [place] Glucose mass conc 309 mg/dL High 70-100 [facility] Comment on above: Performed By: #### 5 73, 73488 #### [facility] [address] [place] [address], [place] Glucose mass conc 387 mg/dL High 70-100 [facility] Comment on above: Performed By: #### 5 7307, 29720 #### [facility] [address] [place] [address], [place] Glucose mass conc 229 mg/dL High 70-100 [facility] Comment on above: Performed By: #### 5 7307, 30631 #### [facility] [address] [place] [address], [place] Glucose mass conc 329 mg/dL High 70-100 [facility] Comment on above: Performed By: #### 5 7307, 24860 #### [facility] [address] [place] [address], [place] BASIC METABOLIC PANELon 04-02 Calcium mass conc 8.8 mg/dL Normal 8.6-10.3 [facility] Comment on above: Order Comment: No: D o not add to previous draw Performed By: #### 5 0608 #### [facility] [address] [place] [address], [place] Chloride molar conc 103 mmol/L Normal 98-107 [facility] Comment on above: Order Comment: No: D o not add to previous draw Performed By: #### 5 0608 #### [facility] [address] [place] [address], [place] CO2 molar conc 20 mmol/L Low 21-31 [facility] Comment on above: Order Comment: No: D o not add to previous draw Performed By: #### 5 0608 #### [facility] [address] [place] [address], [place] Creatinine mass conc 0.86 mg/dL Normal 0.60-1.20 [facility] Comment on above: Order Comment: No: D o not add to previous draw Performed By: #### 5 0608 #### [facility] [address] [place] [address], [place] GFR/1.73 sq M predicted among blacks MDRD vol rate/area (S/P/Bld) mL/min/{1.73_m2} Normal >60 [facility] Comment on above: Order Comment: No: D o not add to previous draw Performed By: #### 5 0608 #### [facility] [address] [place] [address], [place] GFR/1.73 sq M predicted among non-blacks MDRD vol rate/area (S/P/Bld) mL/min/{1.73_m2} Normal >60 [facility] Comment on above: Order Comment: No: D o not add to previous draw Performed By: #### 5 0608 #### [facility] [address] [place] [address], [place] Glucose mass conc 266 mg/dL High 70-100 [facility] Comment on above: Order Comment: No: D o not add to previous draw Performed By: #### 5 0608 #### [facility] [address] [place] [address], [facility] Potassium molar conc 4.0 mmol/L Normal 3.5-5.1 [facility] Comment on above: Order Comment: No: D o not add to previous draw Performed By: #### 5 0608 #### [facility] [address] [place] [address], [facility] Sodium molar conc 133 mmol/L Low 136-145 [facility] Comment on above: Order Comment: No: D o not add to previous draw Performed By: #### 5 0608 #### [facility] [address] [place] [address], [facility] Urea nitrogen mass conc 20 mg/dL Normal 7-25 [facility] Comment on above: Order Comment: No: D o not add to previous draw Performed By: #### 5 0608 #### [facility] [address] [place] [address], [facility] CBC COMPLETE BLOOD COUNTon 04-29-2018 Erythrocyte distribution width Ratio (RBC) 12.9 % Normal 11.5-15.0 [facility] Comment on above: Order Comment: No: D o not add to previous draw Performed By: #### 5 0608 #### [facility] [address] [place] [address], [facility] Hematocrit Volume Fraction (Bld) 39.9 % Normal 36.0-45.0 [facility] Comment on above: Order Comment: No: D o not add to previous draw Performed By: #### 5 0608 #### [facility] [address] [place] [address], [facility] Hemoglobin mass conc (Bld) 12.8 g/dL Normal 12.0-15.0 [facility] Comment on above: Order Comment: No: D o not add to previous draw Performed By: #### 5 0608 #### [facility] [address] MCH Entitic mass (RBC) 29.6 pg Normal 27.0-33.0 [facility] Comment on above: Order Comment: No: D o not add to previous draw Performed By: #### 5 0608 #### [facility] [address] MCHC mass conc (RBC) 32.1 g/dL Normal 32.0-35.0 [facility] Comment on above: Order Comment: No: D o not add to previous draw Performed By: #### 5 0608 #### [facility] [address] MCV Entitic volume (RBC) 92.1 fL Normal 82.0-98.0 [facility] Comment on above: Order Comment: No: D o not add to previous draw Performed By: #### 5 0608 #### [facility] [address] Nucleated RBC/100 WBC Ratio (Bld) 0 % Normal 0-0 [facility] Comment on above: Order Comment: No: D o not add to previous draw Performed By: #### 5 0608 #### [facility] [address] [place] [address], [facility] PLAT CNT 267 10*3/uL Normal 150-400 [facility] Comment on above: Order Comment: No: D o not add to previous draw Performed By: #### 5 0608 #### [facility] [address] [place] [address], [facility] RBC #/vol (Bld) 4.33 10*6/uL Normal 3.80-5.00 [facility] Comment on above: Order Comment: No: D o not add to previous draw Performed By: #### 5 0608 #### [facility] [address] WBC #/vol (Bld) 7.66 10*3/uL Normal 4.00-10.60 [facility] Comment on above: Order Comment: No: D o not add to previous draw Performed By: #### 5 0608 #### [facility] [address] [place] [place] [address], [facility] HEMOGLOBIN A1Con 04-29-2018 Hemoglobin A1c/Hemoglobin.total mass fraction (Bld) 13.7 % High 4.0-6.0 [facility] Comment on above: Order Comment: No: D o not add to previous draw Performed By: #### 5 0608 #### [facility] [address] Hemoglobin A1c/Hemoglobin.total mass fraction (Bld) 346 mg/dL High 70-126 [facility] Comment on above: Order Comment: No: D o not add to previous draw Performed By: #### 5 0608 #### [facility] [address] [facility]. [address] LIPID PROFILEon 04-29-2018 Cholesterol in HDL mass conc 25 mg/dL Normal 23-92 [facility] Comment on above: Order Comment: No: D o not add to previous draw Result Comment: Slig ht variation in normal range could be due to gender and/or age. HDL CHOLESTEROL REFERENCE RANGE: 20 years and older Cardiovascular Risk > or =60 mg/dL Desirable 40 TO 59 mg/dL Low Risk <40 mg/dL High Risk Performed By: #### 5 0608 #### [facility] [address] [place] [address], [facility] Cholesterol in LDL mass conc 'UNABLE TO CALC Normal 0-130 [facility] Comment on above: Order Comment: No: D o not add to previous draw Result Comment: LDL IS A CALCULATION LDL IS ONLY VALID IF THE TRIG IS LESS THAN 400. Performed By: #### 5 0608 #### [facility] [address] [place] [address], [facility] Cholesterol mass conc 115 mg/dL Low 120-200 [facility] Comment on above: Order Comment: No: D o not add to previous draw Result Comment: CHOL ESTEROL REFERENCE RANGE: 20 YEARS AND OLDER CARDIOVASCULAR RISK Less than 200 mg/dl Low Risk 200 to 239 mg/dl Borderline Risk 240 mg/dl and greater High Risk Performed By: #### 5 0608 #### [facility] [address] Cholesterol.total/Cho lesterol in HDL mass ratio 4.6 {ratio} High .0-4.5 [facility] Comment on above: Order Comment: No: D o not add to previous draw Performed By: #### 5 0608 #### [facility] [address] NON-HDL CHOLESTEROL 90 mg/dL Normal [facility] Comment on above: Order Comment: No: D o not add to previous draw Performed By: #### 5 0608 #### [facility] [address] [facility] [address] Triglyceride mass conc 498 mg/dL High 40-149 [facility] Comment on above: Order Comment: No: D o not add to previous draw Result Comment: TRIG LYCERIDE REFERENCE RANGE: 20 YEARS AND OLDER CARDIOVASCULAR RISK LESS THAN 150 mg/dl LOW RISK 150 TO 199 mg/dl BORDERLINE RISK 200 mg/dl AND GREATER HIGH RISK Performed By: #### 5 0608 #### [facility] [address] [facility]. [address] VLDL CHOL 100 mg/dL High 0-40 [facility] Comment on above: Order Comment: No: D o not add to previous draw Performed By: #### 5 0608 #### [facility] [address] MAGNESIUM BLOODon 04-29-2018 Magnesium mass conc 1.8 mg/dL Low 1.9-2.7 [facility] Comment on above: Order Comment: No: D o not add to previous draw Performed By: #### 5 0608 #### [facility] [address] [place] [address], [facility] PHOSPHORUS BLOODon 8 Phosphate mass conc 5.5 mg/dL High 2.5-5.0 [facility] Comment on above: Order Comment: No: D o not add to previous draw Performed By: #### 5 0608 #### [facility] [address] [place] [address], [facility] POC GLUCOSE LABon 04-29-2018 Glucose mass conc 287 mg/dL High 70-100 [facility] Comment on above: Performed By: #### 5 7307, 04136 #### [facility] [address] [facility]. [address] Glucose mass conc 317 mg/dL High 70-100 [facility] Comment on above: Performed By: #### 5 0608 #### [facility] [address] [facility]. [address] Glucose mass conc 267 mg/dL High 70-100 [facility] Comment on above: Performed By: #### 5 0608 #### [facility] [address] Glucose mass conc 347 mg/dL High 70-100 [facility] Comment on above: Performed By: #### 8 5499 #### [facility] [address] [facility]. [address] APTTon 04-28-2018 aPTT Coag time (Bld) 28.1 s Normal 25.0-35.0 [facility] Comment on above: Order Comment: [...] THIS PURPOSE. Performed By: #### 5 7307, 24434 #### [facility] [address] [place] [address], [facility] CALCIUM IONIZED CBGLon 04-28 IONIZED CALCIUM 1.07 mmol/L Low 1.12-1.30 [facility] Comment on above: Performed By: #### 7 0066 #### [facility] [address] CBC COMPLETE BLOOD COUNTon 0 04-28-2018 Erythrocyte distribution width Ratio (RBC) 12.8 % Normal 11.5-15.0 [facility] Comment on above: Order Comment: No: D o not add to previous draw Performed By: #### 5 0608 #### [facility] [address] Hematocrit Volume Fraction (Bld) 41.3 % Normal 36.0-45.0 [facility] Comment on above: Order Comment: No: D o not add to previous draw Performed By: #### 5 0608 #### [facility] [address] [facility] [address] Hemoglobin mass conc (Bld) 13.8 g/dL Normal 12.0-15.0 [facility] Comment on above: Order Comment: No: D o not add to previous draw Performed By: #### 5 0608 #### [facility] [address] [place] [place] [address], [facility] MCH Entitic mass (RBC) 30.1 pg Normal 27.0-33.0 [facility] Comment on above: Order Comment: No: D o not add to previous draw Performed By: #### 5 0608 #### [facility] [address] [place] [address], [facility] MCHC mass conc (RBC) 33.4 g/dL Normal 32.0-35.0 [facility] Comment on above: Order Comment: No: D o not add to previous draw Performed By: #### 5 0608 #### [facility] [address] [place] [address], [facility] MCV Entitic volume (RBC) 90.2 fL Normal 82.0-98.0 [facility] Comment on above: Order Comment: No: D o not add to previous draw Performed By: #### 5 0608 #### [facility] [address] [place] [address], [facility] Nucleated RBC/100 WBC Ratio (Bld) 0 % Normal 0-0 [facility] Comment on above: Order Comment: No: D o not add to previous draw Performed By: #### 5 0608 #### [facility] [address] [place] [address], [facility] PLAT CNT 261 10*3/uL Normal 150-400 [facility] Comment on above: Order Comment: No: D o not add to previous draw Performed By: #### 5 0608 #### [facility] [address] [place] [address], [facility] RBC #/vol (Bld) 4.58 10*6/uL Normal 3.80-5.00 [facility] Comment on above: Order Comment: No: D o not add to previous draw Performed By: #### 5 0608 #### [facility] [address] [place] [address], [facility] WBC #/vol (Bld) 7.28 10*3/uL Normal 4.00-10.60 [facility] Comment on above: Order Comment: No: D o not add to previous draw Performed By: #### 5 0608 #### [facility] [address] [place] [id number], [facility] COMP METABOLIC PANELon 04-28 Albumin mass conc 3.5 g/dL Normal 3.5-5.7 [facility] Comment on above: Order Comment: No: D o not add to previous draw Performed By: #### 4 1000, 20193, 63340, 15953 #### [facility] [address] [place] [address], [place] ALKALINE PHOSPH 68 IU/L Normal 34-104 [facility] Comment on above: Order Comment: No: D o not add to previous draw Performed By: #### 4 1000, 58683, 22010, 82717 #### [facility] [address] [place] [address], [place] ALT enzyme act/vol 22 U/L Normal 7-52 [facility] Comment on above: Order Comment: No: D o not add to previous draw Performed By: #### 4 1000, 28027, 51169, 89148 #### [facility] [address] [place] [address], [place] AST enzyme act/vol 19 U/L Normal 13-39 [facility] Comment on above: Order Comment: No: D o not add to previous draw Performed By: #### 4 1000, 42750, 65953, 26612 #### [facility] [address] [place] [address], [place] Bilirubin mass conc 0.4 mg/dL Normal 0.3-1.0 [facility] Comment on above: Order Comment: No: D o not add to previous draw Performed By: #### 4 1000, 06909, 94330, 63896 #### [facility] [address] [place] [address], [place] Calcium mass conc 8.9 mg/dL Normal 8.6-10.3 [facility] Comment on above: Order Comment: No: D o not add to previous draw Performed By: #### 4 1000, 81071, 07403, 48366 #### [facility] [address] [place] [address], [place] Chloride molar conc 99 mmol/L Normal 98-107 [facility] Comment on above: Order Comment: No: D o not add to previous draw Performed By: #### 4 1000, 52023, 52633, 17422 #### [facility] [address] [place] [address], [place] CO2 molar conc 21 mmol/L Normal 21-31 [facility] Comment on above: Order Comment: No: D o not add to previous draw Performed By: #### 4 1000, 14747, 76841, 66485 #### [facility] [address] [place] [address], [place] Creatinine mass conc 0.94 mg/dL Normal 0.60-1.20 [facility] Comment on above: Order Comment: No: D o not add to previous draw Performed By: #### 4 1000, 63351, 82007, 32886 #### [facility] [address] [place] [address], [place] GFR/1.73 sq M predicted among blacks MDRD vol rate/area (S/P/Bld) mL/min/{1.73_m2} Normal >60 [facility] Comment on above: Order Comment: No: D o not add to previous draw Performed By: #### 4 1000, 10995, 86518, 90542 #### [facility] [address] [place] [address], [place] GFR/1.73 sq M predicted among non-blacks MDRD vol rate/area (S/P/Bld) mL/min/{1.73_m2} Normal >60 [facility] Comment on above: Order Comment: No: D o not add to previous draw Performed By: #### 4 1000, 00963, 34484, 61529 #### [facility] [address] [place] [address], [place] Glucose mass conc 317 mg/dL High 70-100 [facility] Comment on above: Order Comment: No: D o not add to previous draw Performed By: #### 4 1000, 19000, 05821, 57249 #### [facility] [address] [place] [address], [place] Potassium molar conc 4.3 mmol/L Normal 3.5-5.1 [facility] Comment on above: Order Comment: No: D o not add to previous draw Performed By: #### 4 1000, 01892, 71492, 79671 #### [facility] [address] [place] [address], [facility] Protein mass conc 6.7 g/dL Normal 6.0-8.3 [facility] Comment on above: Order Comment: No: D o not add to previous draw Performed By: #### 4 1000, 64029, 31585, 54942 #### [facility] [address] [place] [address], [facility] Sodium molar conc 131 mmol/L Low 136-145 [facility] Comment on above: Order Comment: No: D o not add to previous draw Performed By: #### 4 1000, 74872, 18383, 23190 #### [facility] [address] [place] [address], [facility] Urea nitrogen mass conc 17 mg/dL Normal 7-25 [facility] Comment on above: Order Comment: No: D o not add to previous draw Performed By: #### 4 1000, 78416, 34853, 84083 #### [facility] [address] [place] [address], [facility] CTA HEADon 04-28-2018 CTA HEAD [facility] Department of Radiology [address] [place] [id number] Patient Name: KYLE POWELL : 1955 [...] findings. Electronically signed by:Leonides Velásquez. Transcribed by: [email or web address], User Resident: ANNY SCHAFER Electronically Signed by: LEONIDES VELÁSQUEZ @ 04/29/2018 09:17 AM I personally read this/these film(s) with this resident Normal [facility] Comment on above: Order Comment: No: D o not add to previous draw CTA NECKon 04-28-2018 CTA NECK [facility] Department of Radiology [address] [place] [phone] Patient Name: KYLE POWELL : 1955 [...] findings. Electronically signed by:Leonides Velásquez. Transcribed by: [email or web address], User Resident: ANNY SCHAFER Electronically Signed by: LEONIDES VELÁSQUEZ @ 04/29/2018 09:17 AM I personally read this/these film(s) with this resident Normal [facility] MAGNESIUM BLOODon 04-28-2018 Magnesium mass conc 1.7 mg/dL Low 1.9-2.7 [facility] Comment on above: Order Comment: No: D o not add to previous draw Performed By: #### 4 1000, 75054, 51368, 91193 #### [facility] [address] [place] [address], [facility] PHOSPHORUS BLOODon 8 Phosphate mass conc 4.4 mg/dL Normal 2.5-5.0 [facility] Comment on above: Order Comment: No: D o not add to previous draw Performed By: #### 4 1000, 74633, 89092, 60576 #### [facility] [address] [place] [address], [facility] POC GLUCOSE LABon 04-28-2018 Glucose mass conc 325 mg/dL High 70-100 [facility] Comment on above: Performed By: #### 8 5499 #### [facility] [address] PROTHROMBIN TIMEon 8 INR Coag RelTime (PPP) 1.03 {INR} Normal 0.91-1.16 [facility] Comment on above: Order Comment: [...] CHEST 1995;108:231S-246S. Performed By: #### 5 7307, 39382 #### [facility] [address] [facility]. [address] Prothrombin time (PT) Coag time (PPP) 13.5 s Normal 12.3-14.8 [facility] Comment on above: Order Comment: No: D o not add to previous draw Result Comment: ALL RESULTS MUST BE INTERPRETED WITH RESPECT TO BLOOD DRAWING ARTIFACT OR DILUTION ERROR OF ANTICOAGULANT AT THE TIME OF SAMPLING. Performed By: #### 5 7307, 05843 #### [facility] [address] [facility]. [address] TROPONIN-Ion 04-28-2018 Troponin I.cardiac mass conc 0.03 ng/mL Normal 0.00-0.04 [facility] Comment on above: Result Comment: REFE RENCE RANGES: 0.00 - 0.04 ng/ml NORMAL 0.05 - 0.50 ng/ml INDETERMINATE > 0.50 ng/ml CONSISTENT WITH AN M.I. Performed By: #### 4 1000, 25734, 01312, 00335 #### [facility] [address] [place] [address], [facility] CNOVon 10-26-2017 CNOV Office Visit (GASTBD) COOKIE POWELL ([id number]) 1955 FDate Time Provider Department10/26/17 8:20 AM CARLOS EDUARDO VAN GASTBD During your visit today, we recorded the following information about you: Temperature Pulse Respiration Blood pressure 97.7 degrees 59/minute 16/minute 136/71 Weight Height 110.7 kg 1.6 Liv Bailey MED SPEC 10/[facility]2017 [facility] HOURS: Lab is open 7:30am - 6pm [...] at least one day prior to the scheduledexam.[facility] RADIOLOGY: [facility] 101[facility] hours of operation :Sunday - : 8am-8pmFriday: 8am-5pmSaturday: 8am-12pmEXPRESS CARE WALK-IN CLINIC HOURS: Room 100-[facility] Sunday and Sunday 8:00am to 4:00pm, Sunday through Sunday6:00am to 9:00pm. Express care is for patients 14 years and older.Express CareLOCATIONS, HOURS OF OPERATION and CURRENT WAIT TIMES,visit the following link for details.[email or web address] R[types][0]=Express%20Car e%20ClinicsAND-amp;Reason s for visits limited to:? Cold and Flu symptoms? Conjunctivitis ([facility])? Ear and throat infections? Minor bumps and cuts? Seasonal allergies? Simple sprains and strains? Skin rashes? Sinus infections? Urinary tract infections (Patients must be at least 5 years old)? Upper respiratory infections.To schedule a Specialty appointment or schedule a test, please [phone], and the offset proof press operator will will assist you.Sheri Bailey LPN 10/26/2017 8:02 AM SignedNAME: Kyle Borja: 62 [...] and Past Histories independentlygathered by the clinical forestry support specialist and the remaining scribed noteaccurately describes my [...] dysphagiaHistory coronary artery disease status post multiple NM's with history ofcoronary artery stent placementInsulin-dependen t diabetes mellitusPLAN:Patient is now eat low residue dietVirtual visit in 3 weeks-Will scheduleThe majority of the visit was spent counseling and/or coordinating care for thepatient. Twya-my-uxmq time was 60 minutes.STAFF PHYSICIANDaSita White Provider: SELF [200]Allergies As of Date: 10/26/2017(No Known Allergies)Date Reviewed: 10/26/2017Reviewed by: Sheri Bailey LPN - Fully AssessedReason for Visit: Consult [502]Primary Visit Diagnosis:Diarrhea, unspecified type [R19.7] Other Visit Diagnoses:IDDM (insulin dependent diabetes mellitus) ([facility]) [E11.9, Z79.4] CAD in [place] artery [I25.10]Prescriptions as of 10/26/2017 Sig: DIPHENOXYLATE-ATROPINE [...] Date: 10/26/2017(None) Other instructions from your clinician: [facility] LAB FACTS: Room 14-N LAB HOURS: Lab is open 7:30am - 6pm -, 7:30am -5:30pm Sunday, and 8am -12pm on [...] one day prior to the scheduled exam. [facility] RADIOLOGY: Room 101-S Radiology hours of [...] TIMES, visit the following link for details. [email or web address][types] [0]=Express%20Care%20Clin icsAND Reasons for visits limited to: ? Cold and Flu symptoms ? Conjunctivitis ([facility]) ? Ear and throat infections ? Minor bumps and cuts ? Seasonal allergies ? Simple sprains and strains ? Skin rashes ? Sinus infections ? Urinary tract infections (Patients must be at least 5 years old) ? Upper respiratory infections. To schedule a Specialty appointment or schedule a test, please call [phone], and the offset proof press operator will will assist you. Status:Closed by CARLOS EDUARDO VAN MD on 10/26/17 Normal [facility] PROGRESSon 10-26-2017 PROGRESS HNO ID: [id number] thor: Sheri Bailey LPNService: (none)Author Type: (none)Type: [...] and Past Histories independentlygathered by the clinical forestry support specialist and the remaining scribed noteaccurately describes my [...] dysphagiaHistory coronary artery disease status post multiple NM's with history ofcoronary artery stent placementInsulin-dependen t diabetes mellitusPLAN:Patient is now eat low residue dietVirtual visit in 3 weeks-Will scheduleThe majority of the visit was spent counseling and/or coordinating carefor the patient. Kmxk-bd-pejm time was 60 minutes.STAFF PHYSICIANDaart Van MD Normal [facility] Vital Signs Date Time Vital Sign Value Performing Clinician Facility 09-29-2024 14: Body height 157.5 cm Faraz Osman MD Work Phone: [facility] 09-29-2024 14:050 Body mass index (BMI) [Ratio] 37.68 kg/m2 Faraz Osman MD Work Phone: [facility] 09-29-2024 14: Body weight 93.44 kg Faraz Osman MD Work Phone: [facility] 09-29-2024 14:050 Diastolic blood pressure 78 mm[Hg] Faraz Osman MD Work Phone: [facility] 09-29-2024 14:21-0500 Heart rate 77 /min Faraz Osman MD Work Phone: [facility] 09-29-2024 14:21-0500 SaO2% (BldA) [Mass fraction] 99 % Faraz Osman MD Work Phone: [facility] 09-29-2024 14:21-0500 Systolic blood pressure 126 mm[Hg] Faraz Osman MD Work Phone: [facility] 09-10-2024 11:26-0500 Body height 157.5 cm Faraz Osman MD Work Phone: [facility] 09-10-2024 11:26-0500 Body mass index (BMI) [Ratio] 37.13 kg/m2 Faraz Osman MD Work Phone: [facility] 09-10-2024 11:26-0500 Body weight 92.08 kg Faraz Osman MD Work Phone: [facility] 09-10-2024 11:26-0500 Diastolic blood pressure 70 mm[Hg] Faraz Osman MD Work Phone: [facility] 09-10-2024 11:26-0500 Heart rate 74 /min Faraz Osman MD Work Phone: [facility] 09-10-2024 11:26-0500 SaO2% (BldA) [Mass fraction] 97 % Faraz Osman MD Work Phone: [facility] 09-10-2024 11:26-0500 Systolic blood pressure 128 mm[Hg] Faraz Osman MD Work Phone: [facility] 09-03-2024 08:35-0500 Body height 157.5 cm Faraz Osman MD Work Phone: [facility] 09-03-2024 08:35-0500 Body mass index (BMI) [Ratio] 37.31 kg/m2 Faraz Osman MD Work Phone: [facility] 09-03-2024 08:35-0500 Body weight 92.53 kg Faraz Osman MD Work Phone: [facility] 09-03-2024 08:35-0500 Diastolic blood pressure 84 mm[Hg] Faraz Osman MD Work Phone: [facility] 09-03-2024 08:35-0500 Heart rate 83 /min Faraz Osman MD Work Phone: [facility] 09-03-2024 08:35-0500 SaO2% (BldA) [Mass fraction] 97 % Faraz Osman MD Work Phone: [facility] 09-03-2024 08:35-0500 Systolic blood pressure 136 mm[Hg] Faraz Osman MD Work Phone: [facility] 08-11-2024 14:45-0500 Body mass index (BMI) [Ratio] 38.19 kg/m2 Christy Hemmer PA Work Phone: [facility] 08-11-2024 14:45-0500 Body weight 94.71 kg Christy Hemmer PA Work Phone: [facility] 08-11-2024 14:45-0500 Diastolic blood pressure 70 mm[Hg] Christy Hemmer PA Work Phone: [facility] 08-11-2024 14:45-0500 Heart rate 89 /min Christy Hemmer PA Work Phone: [facility] 08-11-2024 14:45-0500 Respiratory rate 17 /min Christy Hemmer PA Work Phone: [facility] 08-11-2024 14:45-0500 SaO2% (BldA) [Mass fraction] 97 % Christy Hemmer PA Work Phone: [facility] 08-11-2024 14:45-0500 Systolic blood pressure 120 mm[Hg] Christy Hemmer PA Work Phone: [facility] 07-09-2024 14:51-0400 Body height 157.5 cm Darrel Edwards NP Work Phone: [facility] 07-09-2024 14:51-0400 Body mass index (BMI) [Ratio] 38.41 kg/m2 Darrel Edwards BARREL REPAIRER Work Phone: [facility] 07-09-2024 14:51-0400 Body weight 95.25 kg Darrel Edwards BARREL REPAIRER Work Phone: [facility] 07-09-2024 14:51-0400 Diastolic blood pressure 88 mm[Hg] Darrel Edwards BARREL REPAIRER Work Phone: [facility] 07-09-2024 14:51-0400 Heart rate 65 /min Darrel Edwards BARREL REPAIRER Work Phone: [facility] 07-09-2024 14:51-0400 SaO2% (BldA) [Mass fraction] 97 % Darrel Edwards BARREL REPAIRER Work Phone: [facility] 07-09-2024 14:51-0400 Systolic blood pressure 138 mm[Hg] Darrel Edwards BARREL REPAIRER Work Phone: [facility] 06-11-2024 14:11-0400 Body height 157.5 cm Faraz Osman MD Work Phone: [facility] 06-11-2024 14:11-0400 Body mass index (BMI) [Ratio] 38.59 kg/m2 Faraz Osman MD Work Phone: [facility] 06-11-2024 14:11-0400 Body weight 95.71 kg Faraz Osman MD Work Phone: [facility] 06-11-2024 14:11-0400 Diastolic blood pressure 70 mm[Hg] Faraz Osman MD Work Phone: [facility] [facility] 06-11-2024 14:11-0400 Heart rate 90 /min Faraz Osman MD Work Phone: [facility] 06-11-2024 14:11-0400 SaO2% (BldA) [Mass fraction] 96 % Faraz Osman MD Work Phone: [facility] 06-11-2024 14:11-0400 Systolic blood pressure 126 mm[Hg] Faraz Osman MD Work Phone: [facility] 11-06-2023 14:09-0500 Body height 157.5 cm Jerson Anton DO Work Phone: [facility] [employer] 11-06-2023 14:09-0500 Body mass index (BMI) [Ratio] 39.87 kg/m2 Jerson Anton DO Work Phone: [facility] [employer] 11-06-2023 14:09-0500 Body weight 98.88 kg Jerson Anton DO Work Phone: [facility] [employer] 12-02-2022 13:40-0500 Body height 160.02 cm Yoana Drew Other [employer] Other 12-02-2022 13:40-0500 Body mass index (BMI) [Ratio] 39.85 kg/m2 Yoana Viki Other [employer] Other 12-02-2022 13:40-0500 Body temperature 98.4 [degF] Yoana Drew Other [employer] Other 12-02-2022 13:40-0500 Body weight 102.06 kg Yoana Viki Other [employer] Other 12-02-2022 13:40-0500 Diastolic blood pressure 98 mm[Hg] Yoana Drew Other [employer] Other 12-02-2022 13:40-0500 Respiratory rate 18 /min Yoana Viki Other [employer] Other 12-02-2022 13:40-0500 SaO2% (BldA) [Mass fraction] 97 % Yoana Drew Other [employer] Other 12-02-2022 13:40-0500 Systolic blood pressure 160 mm[Hg] Yoana Drew Other [employer] Other 03-22-2022 09:34-0400 Body temperature 97.8 [degF] II Faraz Osman Work Phone: [facility] 03-22-2022 09:34-0400 Body weight 100.69 kg II Faraz Osman Work Phone: [facility] 03-22-2022 09:34-0400 Diastolic blood pressure 78 mm[Hg] II Faraz Osman Work Phone: [facility] 03-22-2022 09:34-0400 Heart rate 78 /min II Faraz Osman Work Phone: [facility] 03-22-2022 09:34-0400 Respiratory rate 18 /min II Faraz Osman Work Phone: [facility] 03-22-2022 09:34-0400 SaO2% (BldA) [Mass fraction] 98 % II Faraz Osman Work Phone: [facility] 03-22-2022 09:34-0400 Systolic blood pressure 169 mm[Hg] II Faraz Osman Work Phone: [facility] 02-20-2022 11:52-0400 Body temperature 98.2 [degF] II Faraz Osman Work Phone: [facility] 02-20-2022 11:52-0400 Body weight 101.2 kg II Faraz Osman Work Phone: [facility] 02-20-2022 11:52-0400 Diastolic blood pressure 60 mm[Hg] II Faraz Osman Work Phone: [facility] 02-20-2022 11:52-0400 Heart rate 77 /min II Faraz Osman Work Phone: [facility] 02-20-2022 11:52-0400 Respiratory rate 18 /min II Faraz Osman Work Phone: [facility] 02-20-2022 11:52-0400 SaO2% (BldA) [Mass fraction] 97 % II Faraz Osman Work Phone: [facility] 02-20-2022 11:52-0400 Systolic blood pressure 177 mm[Hg] II Faraz Osman Work Phone: [facility] 01-18-2022 13:43-0400 Body temperature 98.8 [degF] II Faraz Osman Work Phone: [facility] 01-18-2022 13:43-0400 Body weight 102 kg II Faraz Osman Work Phone: [facility] 01-18-2022 13:43-0400 Diastolic blood pressure 72 mm[Hg] II Faraz Osman Work Phone: [facility] 01-18-2022 13:43-0400 Heart rate 80 /min II Faraz Osman Work Phone: [facility] 01-18-2022 13:43-0400 Respiratory rate 22 /min II Faraz Osman Work Phone: [facility] 01-18-2022 13:43-0400 SaO2% (BldA) [Mass fraction] 98 % II Faraz Osman Work Phone: [facility] 01-18-2022 13:43-0400 Systolic blood pressure 169 mm[Hg] II Faraz Osman Work Phone: [facility] 01-12-2022 13:02-0400 Body temperature 98 [degF] II Faraz Osman Work Phone: [facility] 01-12-2022 13:02-0400 Body weight 101.15 kg II Faraz Osman Work Phone: [facility] 01-12-2022 13:02-0400 Diastolic blood pressure 82 mm[Hg] II Faraz Osman Work Phone: [facility] 01-12-2022 13:02-0400 Heart rate 72 /min II Faraz Osman Work Phone: [facility] 01-12-2022 13:02-0400 Systolic blood pressure 177 mm[Hg] II Faraz Osman Work Phone: [facility] 12-20-2021 12:20-0400 Diastolic blood pressure 50 mm[Hg] II Faraz Osman Work Phone: [facility] 12-20-2021 12:20-0400 Heart rate 62 /min II Farza Osman Work Phone: [facility] 12-20-2021 12:20-0400 Respiratory rate 16 /min II Faraz Osman Work Phone: [facility] 12-20-2021 12:20-0400 SaO2% (BldA) [Mass fraction] 99 % II Faraz Osman Work Phone: [facility] 12-20-2021 12:20-0400 Systolic blood pressure 140 mm[Hg] II Faraz Osman Work Phone: [facility] 12-20-2021 09:24-0400 Body height 160.02 cm II Faraz Osman Work Phone: [facility] 12-20-2021 09:24-0400 Body mass index (BMI) [Ratio] 40.9 kg/m2 II Faraz Osman Work Phone: [facility] 12-20-2021 09:24-0400 Body weight 104.77 kg II Faraz Osman Work Phone: [facility] 12-20-2021 06:25-0400 Body temperature 98.6 [degF] II Faraz Osman Work Phone: [facility] 11-25-2021 11:42-0500 Body weight 102.96 kg II Faraz Osman Work Phone: [facility] 11-25-2021 11:42-0500 Diastolic blood pressure 101 mm[Hg] II Faraz Osman Work Phone: [facility] 11-25-2021 11:42-0500 Heart rate 84 /min II Faraz Osman Work Phone: [facility] 11-25-2021 11:42-0500 Respiratory rate 16 /min II Faraz Osman Work Phone: [facility] 11-25-2021 11:42-0500 SaO2% (BldA) [Mass fraction] 96 % II Faraz Osman Work Phone: [facility] 11-25-2021 11:42-0500 Systolic blood pressure 188 mm[Hg] II Faraz Osman Work Phone: [facility] 11-25-2021 11:10-0500 Body height 158.75 cm II Faraz Osman Work Phone: [facility] Encounters Encounter Date Encounter Type Care Provider Facility Start: 09-29-2024 End: 09-29-2024 Office outpatient visit 25 minutes Faraz Osman MD Work Phone: [facility] Comment on above: Candidiasis of skin; Spinal stenosis of lumbar region, unspecified whether neurogenic claudication present; Lumbar radiculopathy Start: 09-29-2024 End: 09-29-2024 ambulatory FARAZ OSMAN Not Available Start: 09-29-2024 End: 09-29-2024 Bamboo flowsheet Faraz Osman MD Work Phone: [facility] Start: 09-29-2024 End: 09-29-2024 Bamboo flowsheet Faraz Osman MD Work Phone: [facility] Start: 09-25-2024 End: 09-25-2024 Treatment Mary Ramsay PT [facility] Comment on above: Balance disorder (Pr imary Dx); Frequent falls Start: 09-23-2024 End: 09-23-2024 Bamboo flowsheet Mary Ramsay PT [facility] Start: 09-23-2024 End: 09-23-2024 Bamboo flowsheet Mary Ramsay PT [facility] Start: 09-23-2024 End: 09-23-2024 Treatment Mary Ramsay PT [facility] Comment on above: Balance disorder (Pr imary Dx); Frequent falls Start: 09-19-2024 End: 09-19-2024 Bamboo flowsheet Oswaldo Brody CASINO SUPERVISOR [facility] Start: 09-19-2024 End: 09-19-2024 Bamboo flowsheet Oswaldo Brody CASINO SUPERVISOR [facility] Start: 09-19-2024 End: 09-19-2024 Treatment Oswaldo Brody CASINO SUPERVISOR [facility] Comment on above: Balance disorder (Pr imary Dx); Frequent falls Start: 09-16-2024 End: 09-17-2024 Treatment Oswaldo Brody CASINO SUPERVISOR [facility] Comment on above: Balance disorder (Pr imary Dx); Frequent falls Start: 09-16-2024 End: 09-16-2024 Bamboo flowsheet Oswaldo Brody CASINO SUPERVISOR [facility] Start: 09-16-2024 End: 09-16-2024 Bamboo flowsheet Oswaldo Brody CASINO SUPERVISOR [facility] Start: 09-15-2024 End: 09-15-2024 Telephone encounter Christy Baez PA Work Phone: [facility] Start: 09-12-2024 End: 09-12-2024 ambulatory CHRISTY BAEZ Not Available Start: 09-11-2024 End: 09-11-2024 Bamboo flowsheet Mary Ramsay PT [facility] Start: 09-11-2024 End: 09-11-2024 Bamboo flowsheet Mary Ramsay PT [facility] Start: 09-11-2024 End: 09-11-2024 Treatment Mary Ramsay PT [facility] Comment on above: Balance disorder (Pr imary Dx); Frequent falls Start: 09-10-2024 End: 09-10-2024 [facility] Start: 09-10-2024 End: 09-10-2024 Assay of hemosiderin, quant Faraz Osman MD Work Phone: [facility] Work Phone: Start: 09-10-2024 End: 09-10-2024 Patient encounter procedure Faraz Osman MD Work Phone: [facility] Comment on above: Routine general medi mai examination at health care facility (Primary Dx); ACP (advance care planning); Flu vaccine need; Type 2 diabetes mellitus with diabetic neuropathy, with long-term current use of insulin ([facility]); Estrogen deficiency; Breast screening Start: 09-10-2024 End: 09-10-2024 ambulatory FARAZ Lynn OSMAN Not Available Start: 09-09-2024 End: 09-09-2024 Treatment Oswaldo Brody CASINO SUPERVISOR [facility] Comment on above: Balance disorder (Pr imary Dx); Frequent falls Start: 09-05-2024 End: 09-05-2024 Bamboo flowsheet Mary Ramsay PT [facility] Start: 09-05-2024 End: 09-05-2024 Bamboo flowsheet Mary Ramsay PT [facility] Start: 09-05-2024 End: 09-05-2024 Treatment Mary Ramsay PT [facility] Comment on above: Balance disorder (Pr imary Dx); Frequent falls Start: 09-03-2024 End: 09-03-2024 Office outpatient visit 25 minutes Faraz Osman MD Work Phone: [facility] Comment on above: General weakness (Pr imary Dx); Type 2 diabetes mellitus with diabetic neuropathy, with long-term current use of insulin ([facility]); 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; History of stroke Start: 09-03-2024 End: 09-03-2024 ambulatory FARAZ OSMAN Not Available Start: 09-02-2024 End: 09-02-2024 Bamboo flowsheet Oswaldo Brody CASINO SUPERVISOR [facility] Start: 09-02-2024 End: 09-02-2024 Bamboo flowsheet Oswaldo Brody CASINO SUPERVISOR [facility] Start: 09-02-2024 End: 09-02-2024 Treatment Oswaldo Brody CASINO SUPERVISOR [facility] Comment on above: Balance disorder (Pr imary Dx); Frequent falls Start: 08-26-2024 End: 08-26-2024 Treatment Oswaldo Brody CASINO SUPERVISOR [facility] Comment on above: Balance disorder (Pr imary Dx); Frequent falls Start: 08-20-2024 End: 08-20-2024 Bamboo flowsheet Mary Ramsay PT [facility] Start: 08-20-2024 End: 08-20-2024 Bamboo flowsheet Mary Ramsay PT [facility] Start: 08-20-2024 End: 08-20-2024 Evaluation Mary Ramsay PT [facility] Comment on above: Balance disorder (Pr imary Dx); Frequent falls Start: 08-11-2024 End: 08-11-2024 ambulatory CHRISTY BAEZ Not Available Start: 08-11-2024 End: 08-11-2024 Office outpatient visit 25 minutes Christy Baez PA Work Phone: [facility] Comment on above: Dermatitis (Primary Dx); Balance disorder; Frequent falls Start: 08-11-2024 End: 08-11-2024 Bamboo flowsheet Christy Baez PA Work Phone: [facility] Start: 08-11-2024 End: 08-11-2024 Bamboo flowsheet Christy Baez PA Work Phone: [facility] Start: 07-09-2024 End: 07-09-2024 Office outpatient visit 25 minutes Darrel Edwards BARREL REPAIRER Work Phone: [facility] Comment on above: Impacted cerumen of left ear (Primary Dx) Start: 07-09-2024 End: 07-09-2024 ambulatory DARREL EDWARDS Not Available Start: 06-11-2024 End: 06-11-2024 Office outpatient visit 25 minutes Faraz Osman MD Work Phone: [facility] Comment on above: Type 2 diabetes carl itus with diabetic neuropathy, with long- term current use of insulin ([facility]); Morbid (severe) obesity due to excess calories (CMS/HCC); Essential (primary) hypertension (CMS/HCC); Body mass index (BMI) 38.0-38.9, adult; Immunodeficiency due to conditions classified elsewhere (CMS/HCC); Malignant neoplasm of upper-outer quadrant of left female breast (CMS/HCC); Atherosclerotic heart disease of [place] coronary artery with unspecified angina pectoris (CMS/HCC) Start: 06-11-2024 End: 06-11-2024 ambulatory FARAZ OSMAN Not Available Start: 06-11-2024 End: 06-11-2024 Bamboo flowsheet Faraz Osman MD Work Phone: [facility] Start: 06-11-2024 End: 06-11-2024 Bamboo flowsheet Faraz Osman MD Work Phone: [facility] Start: 03-10-2024 End: 03-10-2024 ambulatory FARAZ Lynn DAWSON Not Available Start: 02-26-2024 End: 02-26-2024 ambulatory ARANZA CHANCEMarin Not Available Start: 02-21-2024 End: 02-21-2024 ambulatory FARAZ OSMAN Not Available Start: 02-14-2024 ambulatory FARAZ OSMAN [facility] Start: 02-12-2024 End: 02-14-2024 Emergency department patient visit FARAZ Lynn OSMAN [facility] Start: 02-11-2024 End: 02-11-2024 ambulatory FARAZ OSMAN Not Available Start: 02-04-2024 End: 02-04-2024 ambulatory FARAZ OSMAN Not Available Start: 12-31-2023 End: 12-31-2023 ambulatory FARAZ OSMAN Not Available Start: 12-18-2023 End: 12-18-2023 ambulatory JERSON Elisabeth ANTON Not Available Start: 12-12-2023 End: 12-13-2023 ambulatory ROSEANN VICENTE Not Available Start: 12-04-2023 End: 12-04-2023 ambulatory ROSEANN VICENTE Not Available Start: 11-23-2023 End: 11-23-2023 ambulatory ROSEANN VICENTE Not Available Start: 11-20-2023 End: 11-20-2023 ambulatory ROSEANN VICENTE Not Available Start: 11-19-2023 End: 11-19-2023 ambulatory AB [facility] Start: 11-13-2023 End: 11-13-2023 ambulatory Roseann Vicente [...] syndrome; Hand weakness Start: 11-06-2023 End: 11-06-2023 Follow-up encounter Jerson Anton DO Work Phone: [facility] Comment on above: Bilateral carpal rossi christin syndrome (Primary Dx) Start: 11-06-2023 End: 11-06-2023 ambulatory JERSON ANTON Not Available Start: 11-06-2023 End: 03-10-2024 ambulatory FARAZ OSMAN [place] Start: 11-06-2023 End: 03-10-2024 Recurring FARAZ OSMAN [facility] Start: 11-05-2023 Chart abstracting Jerson yarbrough DO Work Phone: [facility] Start: 10-03-2023 End: 10-03-2023 ambulatory FARAZ OSMAN Not Available Start: 02-14-2023 End: 02-14-[address] FARAZ OSMAN Facility:[facility] Start: 01-04-2023 End: 01-05-[address] FARAZ OSMAN Facility:[facility] Start: 12-02-2022 End: 12-02-2022 ambulatory Yoana Drew Other [employer] Other Start: 12-02-2022 Office outpatient vi sit 15 minutes Yoana Drew [facility] [place] Start: 11-06-2022 End: 11-07-[address] GARRETT MCDONALD Facility:[facility] Start: 07-25-2022 End: 07-26-[address] FARAZ OSMAN Facility:[facility] Start: 06-13-2022 End: 06-14-[address] FARAZ OSMAN Facility:[facility] Start: 05-29-2022 End: 05-29-2022 ambulatory KAROLINE SHAW . Facility:[facility] Start: 05-15-2022 End: 10-11-2022 Recurring FARAZ OSMAN [facility] Start: 03-22-2022 End: 03-22-2022 ambulatory Faraz Osman Facility:[facility] Start: 03-22-2022 End: 03-22-2022 Registered Recurring II Faraz Osman [facility] Start: 03-07-2022 End: 03-08-[address] FARAZ OSMAN Facility:[facility] Start: 02-20-2022 End: 02-20-2022 Registered Recurring II Faraz Osman Work Phone: [facility] Start: 02-14-2022 End: 02-14-2022 Registered Recurring II Faraz Osman Work Phone: [facility] Start: 01-18-2022 End: 01-18-2022 Registered Recurring II Faraz Osman Work Phone: [facility] Start: 01-12-2022 End: 01-12-2022 Registered Recurring II Faraz Osman Work Phone: [facility] Start: 12-20-2021 End: 12-20-2021 Admission to same day surgery center SHAHANA Osman Work Phone: [facility] [place] Start: 12-16-2021 End: 12-16-2021 Patient encounter procedure II Faraz Osman Work Phone: [facility] Start: 12-06-2021 End: 12-06-2021 Patient encounter procedure II Faraz Osman Work Phone: [id number] Start: 11-25-2021 Registered Recurring II Faraz Osman Work Phone: [facility] Start: 11-14-2018 End: 11-18-2018 Evaluation and management of inpatient FARAZ OSMAN Facility:[facility] Start: 09-05-2018 End: 09-07-2018 Evaluation and management of inpatient JONAH SANABRIA Facility:[facility] Start: 04-28-2018 End: 05-03-2018 Evaluation and management of inpatient WILMAR MORRIS Facility:[facility] Start: 10-26-2017 End: 10-26-2017 Ambulatory CARLOS EDUARDO [facility] Procedures Date Procedure Procedure Detail Performing Clinician Start: 09-10-2024 Hemoglobin glycosylated a1c Faraz Osman MD Work Phone: Start: 07-09-2024 Removal impacted cer umen irrigation/lvg unilat Darrel Edwards NP Work Phone: Start: 06-11-2024 Hemoglobin glycosylated a1c Faraz Osman MD Work Phone: Start: 12-20-2021 Mammography of left breast specimen II Faraz Dawson Work Phone: Start: 12-20-2021 Lumpectomy of left breast II Faraz Dawson Work Phone: Start: 12-20-2021 Radionuclide sentine l lymph node study II Faraz Dawson Work Phone: Start: 12-19-2021 Mammography of left breast II Faraz Dawson Work Phone: Start: 12-19-2021 Ultrasonography guid ed needle localization of lesion of left breast II Faraz Osman Work Phone: Start: 07-07-2020 Colonoscopy Jerson yarbrough DO Work Phone: Start: 11-15-2018 EXCISION OF STOMACH, ENDO, DIAGN ABDALLMANDEEP WILSONY Start: 09-06-2018 DILATION OF CORONARY ARTERY, ONE ARTERY, PERC APPROACH JENNIFER CORMIER Start: 09-06-2018 FLUOROSCOPY OF MULT COR ART USING L OSM CONTRAST JENNIFER CORMIER Start: 09-06-2018 MEASURE OF CARDIAC S AMPL \T\ PRESSURE, L HEART, PERC APPROACH JENNIFER CORMIER Start: 04-29-2018 INTRODUCE OF OTH THE RAP SUBST INTO RESP TRACT, VIA OPENING MIGUEL DEMPSEY Plan of Treatment Date Care Activity Detail Author Start: 07-07-2030 Screening for malign ant neoplasm of colon [facility] Start: 04-15-2025 Glaucoma screening Diabetes: R etinopathy Screening [facility] Start: 02-03-2025 Urine screening for protein Diabetes: Urine Protein Screening [facility] Start: 12-09-2024 Hemoglobin A1c measurement Diabetes: Hemoglobin A1C [facility] Start: 10-14-2024 End: 10-14-2024 Professional / ancillary services management [facility] Start: 10-02-2024 End: 10-02-2024 Professional / ancillary services management 10/02/2024 12:45 PM EST Ancillary Procedure [facility] [address] [place] [address] [facility] Start: 09-29-2024 End: 09-29-2024 Patient encounter procedure [facility] Comment on above: Arrived Start: 09-25-2024 End: 09-25-2024 ambulatory 09/25/2024 2:30 PM EST Treatment [facility] [address] [facility] [address] [place] [address] Mary Ramsay, PT [facility] Start: 09-23-2024 End: 09-23-2024 ambulatory 09/23/2024 11:30 AM EST Treatment [facility] [address] [facility] [address] [place] [address] Mary Ramsay, PT [facility] Start: 09-19-2024 End: 09-19-2024 ambulatory [facility] Comment on above: Arrived Start: 09-16-2024 End: 09-16-2024 ambulatory [facility] Comment on above: Arrived Start: 09-12-2024 End: 09-12-2024 Professional / ancillary services management 09/12/2024 10:00 AM EST Ancillary Procedure [facility] [address] [place] [id number] [facility] Start: 09-11-2024 End: 09-11-2024 ambulatory [facility] Start: 09-10-2024 End: 09-10-2024 Patient encounter procedure 09/10/2024 2:15 PM EST Office Visit [facility] [address] [facility] [address] [place] [id number] Faraz Osman MD [address] [facility] [address] [place] [address] [facility] Start: 09-10-2024 End: 09-10-2025 DXA Skeletal system Views for bone density DEXA bone density Imaging Routine Estrogen deficiency Expected: 09/10/2024, Expires: 09/10/2025 [facility] Work Phone: Comment on above: Expected: 09/10/2024 , Expires: 09/10/2025 Start: 09-10-2024 Hemoglobin A1c measurement Diabetes: Hemoglobin A1C [facility] Start: 09-10-2024 End: 11-11-2025 MG Breast - bilateral Screening Bilateral screening mammogram Imaging Routine Breast screening Expected: 09/10/2024 (Approximate), Expires: 11/11/2025 [facility] Comment on above: Expected: 09/10/2024 (Approximate), Expires: 11/11/2025 Start: 09-10-2024 End: 09-10-2024 Patient encounter procedure 09/10/2024 11:30 AM EST Office Visit [facility] [address] [facility] [address] [place] [phone] Faraz Osman MD [address] [facility] [address] [place] [address] [facility] Start: 09-09-2024 End: 09-09-2024 ambulatory [facility] Start: 09-05-2024 End: 09-05-2024 ambulatory [facility] Comment on above: Arrived Start: 09-03-2024 End: 09-03-2025 Comprehensive metabolic 2000 panel - Serum or Plasma Comprehensive metabolic panel Lab Routine General weakness Type 2 diabetes mellitus with diabetic neuropathy, with long-term current use of insulin ([facility]) Expected: 09/03/2024 (Approximate), Expires: 09/03/2025 [facility] Comment on above: Expected: 09/03/2024 (Approximate), Expires: 09/03/2025 Start: 09-03-2024 End: 09-03-2025 TSH W/REFLEX TO FT4 TSH W/REFLEX TO FT4 Lab Routine General weakness Type 2 diabetes mellitus with diabetic neuropathy, with long-term current use of insulin ([facility]) Expected: 09/03/2024 (Approximate), Expires: 09/03/2025 [facility] Comment on above: Expected: 09/03/2024 (Approximate), Expires: 09/03/2025 Start: 09-03-2024 End: 09-03-2024 Patient encounter procedure 09/03/2024 8:30 AM EST Office Visit [facility] [address] [facility] [address] [place] [id number] Faraz Osman MD [address] [facility] [address] [place] [address] [facility] Start: 09-02-2024 End: 09-02-2024 ambulatory [facility] Comment on above: Arrived Start: 08-26-2024 End: 08-26-2024 ambulatory 08/26/2024 11:30 AM EST Treatment [facility] [address] [facility] [address] [place] [phone] Oswaldo Brody PTA [facility] Start: 08-20-2024 End: 08-20-2024 ambulatory [facility] Comment on above: Balance disorder; Frequent falls Start: 06-11-2024 End: 06-11-2024 Patient encounter procedure 06/11/2024 2:15 PM EDT Office Visit [facility] [address] [place] [address] Faraz Osman MD [address] [facility] [address] [place] [address] Arrived [facility] Comment on above: Arrived Start: 06-10-2024 Hemoglobin A1c measurement Diabetes: Hemoglobin A1C [facility] Start: 06-01-2024 Influenza vaccination Influenza Vacc ine (#1) [facility] Start: 04-26-2024 Glaucoma screening Diabetes: R etinopathy Screening [facility] Start: 12-31-2023 End: 12-31-2023 Patient encounter procedure 12/31/2023 1:30 PM EDT Office Visit [facility] [address] [place] [address] Faraz Osman MD [address] [place] [address] [facility] Start: 12-18-2023 End: 12-18-2023 Patient encounter procedure 12/18/2023 2:45 PM EDT Office Visit [facility] [address] [place] [id number] Jerson Anton DO [address] [facility] [place] [id number] [facility] Start: 12-15-2023 Medicare Annual Well ness (AWV) Medicare Annual Wellness (AWV) [facility] Start: 12-15-2023 Urine screening for protein Diabetes: Urine Protein Screening [facility] Start: 11-23-2023 End: 11-23-2023 ambulatory 11/23/2023 2:30 PM EST Treatment [facility] [address] [place] [address] Roseann Vicente, OT [address] [place] [address] [facility] Start: 11-20-2023 End: 11-20-2023 ambulatory 11/20/2023 2:30 PM EST Treatment [facility] [address] [place] [address] Roseann Vicente, OT [address] [place] [address] [facility] Start: 11-13-2023 End: 11-13-2023 ambulatory [facility] Comment on above: Carpal tunnel syndro me, bilateral (Primary Dx) Start: 11-13-2023 Hemoglobin A1c measurement Diabetes: Hemoglobin A1C [facility] Start: 11-09-2023 End: 11-09-2023 ambulatory 11/09/2023 1:30 PM EST Evaluation [facility] [address] [place] [id number] Paulcuate Roseann, OT [address] [place] [address] [facility] Start: 11-06-2023 End: 11-06-2023 Patient encounter procedure 11/06/2023 2:00 PM EST Office Visit [facility] [address] [facility] [place] [address] Jerson Anton DO [address] [facility] [place], [place] [id number] [facility] Start: 04-20-2020 Pneumococcal Vaccine : 65+ Years (2 - PCV) Pneumococcal Vaccine: 65+ Years (2 - PCV) [facility] Start: 04-20-2020 Pneumococcal Vaccine : 65+ Years (2 of 2 - PCV) Pneumococcal Vaccine: 65+ Years (2 of 2 - PCV) [facility] Start: 1955 Screening for malign ant neoplasm of colon [facility] CBC W Auto Different ial panel - Blood CBC and differential Lab Routine General weakness Type 2 diabetes mellitus with diabetic neuropathy, with long-term current use of insulin ([facility]) Ordered: 09/03/2024 [facility] Work Phone: Comment on above: Ordered: 09/03/2024 Patient referral [facility] Work Phone: Immunizations Immunization Date Immunization Notes Care Provider Fa cility 09-10-2024 Influenza, High-dose Seasonal, Quadrivalent, Preservative Free Mary Ramsay PT [facility] 07-09-2023 Influenza, High-dose Seasonal, Quadrivalent, Preservative Free Jerson Brown DO Work Phone: [facility] 07-09-2023 influenza virus vacc ine, unspecified formulation Faraz Osman MD Work Phone: [facility] 07-05-2022 Influenza, High-dose Seasonal, Quadrivalent, Preservative Free Jerson Anton DO Work Phone: [facility] 08-01-2021 influenza, high dose seasonal, preservative-free Jerson Brown DO Work Phone: [facility] 12-13-2020 COVID-19 mRNA, Comir kristal (Pfizer) II Faraz Osman Work Phone: [facility] 11-22-2020 COVID-19 mRNA, Comir kristal (Pfizer) II Faraz Osman Work Phone: [facility] 07-27-2020 influenza, injectabl e, quadrivalent, preservative free Jerson Anton DO Work Phone: [facility] 07-27-2020 zoster vaccine recombinant Jerson Anton DO Work Phone: [facility] 07-14-2019 influenza, seasonal, injectable Jerson Anton DO Work Phone: [facility] 07-02-2019 influenza, injectabl e, quadrivalent, preservative free Jerson Anton DO Work Phone: [facility] 04-20-2019 pneumococcal polysaccharide vaccine, 23 valent Jerson Anton DO Work Phone: [facility] 07-29-2018 Influenza, High-dose Seasonal, Quadrivalent, Preservative Free Jerson Anton DO Work Phone: [facility] 07-29-2018 seasonal influenza, intradermal, preservative free Jerson Anton DO Work Phone: [facility] 08-06-2017 influenza, injectabl e, quadrivalent, preservative free Jerson Anton DO Work Phone: [facility] 06-04-2017 seasonal influenza, intradermal, preservative free Jerson Anton DO Work Phone: [facility] 06-14-2015 zoster vaccine, live Jerson medely DO Work Phone: [facility] Payers Date Payer Category Payer Medicare [id number] 2022 Medicare [id number] 2021 Self-pay [id number] 2019 Medicaid [id number] 2017 Private Health Insurance [id number] 1959 Medicaid [id number] 1955 Unknown [id number] 2.16.8 40.1.804458.3.579.2.647 1955 Unknown [id number] 2.16.8 40.1.709679.3.579.2.647 1955 Unknown [id number] 2.16.8 40.1.266424.3.579.2.647 1955 Unknown [id number] 2.16.84 0.1.615740.3.579.2.593 1955 Unknown [id number] 2.16.84 0.1.082525.3.579.2.593 1955 Unknown [id number] 2.16.84 0.1.113736.3.579.2.593 1955 Unknown [id number] 2.16.84 0.1.027829.3.579.2.593 1955 Unknown [id number] 2.16.84 0.1.575871.3.579.2.593 1955 Unknown [id number] 2.16.84 0.1.245820.3.579.2.593 1955 Unknown [id number] 2.16.84 0.1.490309.3.579.2.593 1955 Unknown [id number] 2.16.8 40.1.864560.3.579.2.1286 1955 Unknown [id number] 2.16.8 40.1.695635.3.579.2.1286 1955 Unknown [id number] 2.16.8 40.1.080686.3.579.2.1286 1955 Unknown [id number] 2.16.8 40.1.661410.3.579.2.1286 1955 Unknown [id number] 2.16.8 40.1.634001.3.579.2.1286 1955 Unknown [id number] 2.16.8 40.1.382821.3.579.2.727 1955 Unknown [id number] 2.16.84 0.1.286681.3.579.2.1259 1955 Unknown [id number] 2.16.84 0.1.999340.3.579.2.1259 1955 Unknown [id number] 2.16.84 0.1.644247.3.579.2.1259 1955 Unknown [id number] 2.16.84 0.1.210548.3.579.2.1259 1955 Unknown [id number] 2.16.84 0.1.532346.3.579.2.1259 1955 Unknown [id number] 2.16.84 0.1.196528.3.579.2.1259 1955 Unknown [id number] 2.16.84 0.1.614770.3.579.2.1259 1955 Unknown [id number] 2.16.84 0.1.340275.3.579.2.1259 1955 Unknown [id number] 2.16.84 0.1.541735.3.579.2.1259 1955 Unknown [id number] 2.16.84 0.1.084273.3.579.2.1259 1955 Unknown [id number] 2.16.84 0.1.669809.3.579.2.1259 1955 Unknown [id number] 2.16.84 0.1.296878.3.579.2.1259 1955 Unknown [id number] 2.16.84 0.1.482174.3.579.2.1259 1955 Unknown [id number] 2.16.84 0.1.877449.3.579.2.1259 1955 Unknown [id number] 2.16.84 0.1.030833.3.579.2.1259 1955 Unknown [id number] 2.16.84 0.1.676568.3.579.2.1259 1955 Unknown [id number] 2.16.84 0.1.980899.3.579.2.1259 1955 Unknown [id number] 2.16.84 0.1.954224.3.579.2.1259 1955 Unknown [id number] 2.16.84 0.1.160062.3.579.2.1259 1955 Unknown [id number] 2.16.84 0.1.917709.3.579.2.1259 1955 Unknown [id number] 2.16.84 0.1.946475.3.579.2.1259 1955 Unknown [id number] 2.16.84 0.1.738805.3.579.2.1259 1955 Unknown [id number] 2.16.84 0.1.515556.3.579.2.1259 1955 Unknown [id number] 2.16.84 0.1.306719.3.579.2.1259 1955 Unknown [id number] 2.16.84 0.1.235392.3.579.2.1259 1955 Unknown [id number] 2.16.84 0.1.051604.3.579.2.1259 1955 Unknown [id number] 2.16.84 0.1.033260.3.579.2.1259 1955 Unknown [id number] 2.16.84 0.1.574086.3.579.2.1259 1955 Unknown [id number] 2.16.84 0.1.684810.3.579.2.1259 1955 Unknown [id number] 2.16.84 0.1.427957.3.579.2.9 1955 Unknown [id number] 2.16.840 .1.743474.3.579.2.1259 Medicaid [id number] Medicare [id number] 2.1 6.840.1.519028.19 Unknown [id number] 2.16.8 40.1.506031.3.579.2.531 Social History Date Type Detail Facility Start: 12-20-2021 End: 02-20-2023 Tobacco smoking status MDIS Never smoked tobacco (finding) [facility] Start: 1955 Sex Assigned At Female [facility] Tobacco smoking status No Smokin g Status Entered [facility] Start: 07-31-2023 End: 09-10-2024 Sex Assigned At Female [facility] Start: 02-20-2023 Tobacco use and exposure Smokeless tobacco non-user [facility] Start: 10-03-2023 End: 09-29-2024 Alcohol intake Ex-drinker (finding) [facility] Start: 07-31-2023 End: 09-10-2024 [facility] [...] Identifier Dates USE DIRECTED TWICE A DAY [id number] Start: 09-14-2022 1 strip by In Vi tro route in the morning. [id number] Start: 06-29-2023 1 Lancet in the morning. [id number] Start: 06-29-2023 Goals Date Patient Goal Desired Activity /State Clinical Notes 11-25-2021 to 09-29-2024 Faraz Osman MD - 09/29/2024 2:30 PM Reese Ramsay, PT - 09/25/2024 2:30 PM Reese Ramsay, PT - 09/23/2024 11:30 AM ESTTelephone Encounter - DELGADO HAYWOOD - 09/15/2024 2:57 PM EST Note Date & Type Note Facility 09-29-2024 History of Presen t illness Narrative Images from the original note were not included. HPI Results Additional comments: Mri results Med Refill Additional comments: Nystatin powder-- DM [place] Last edited by Holly Joy LPN on 09/29/2024 2:24 PM. Subjective Patient ID: Kyle Powell is a 69 y.o. female who presents for Results (Mri results) and Med Refill (Nystatin powder-- DM [place]). Pt completed MRI as ordered per physical therapy recommendations Pt still having pain in bilateral legs Pt was wondering if Trileptal could be increased, if that would help with her leg pain Med Refill Current Outpatient Medications on File Prior to Visit Medication Sig Dispense Refill amLODIPine (Norvasc) 10 MG tablet Take 1 tablet (10 mg) by mouth in the morning. 100 tablet 3 anastrozole (Arimidex) 1 MG chemo tablet Take 1 mg by mouth Daily. aspirin 81 MG EC tablet Take 81 mg by mouth in the morning. atorvastatin (Lipitor) 80 MG tablet Take 1 tablet (80 mg) by mouth Daily 100 tablet 3 buPROPion XL (Wellbutrin XL) 150 MG 24 hr tablet Take 1 tablet (150 mg) by mouth in the morning. 100 tablet 3 carvedilol (Coreg) 12.5 MG tablet Take 1 tablet (12.5 mg) by mouth in the morning and 1 tablet (12.5 mg) before bedtime. 200 tablet 3 clopidogrel (Plavix) 75 MG tablet Take 1 tablet (75 mg) by mouth Daily 100 tablet 3 Continuous Glucose Sensor (FreeStyle Yesenia 2 Sensor) [facility] Device every 14 (fourteen) days 2 each 11 Droplet Pen Leary 31G X 6 MM [facility] USE DIRECTED TWICE A DAY empagliflozin (Jardiance) 10 MG Take 1 tablet (10 mg) by mouth Daily 90 tablet 2 gabapentin (Neurontin) 300 MG capsule Take 1 capsule (300 mg) by mouth at bedtime 90 capsule 3 Glucose Blood (Blood Glucose Test Strips 333) strip 1 strip by In Vitro route in the morning. 100 strip 3 insulin lispro protamine-insulin lispro (HumaLOG Mix 75-25) (75-25) 100 UNIT/ML injection inject 60 units subcutaneously twice a day with meals and inject ... (REFER TO PRESCRIPTION NOTES). insulin NPH-insulin regular (NovoLIN 70/30) (70-30) 100 UNIT/ML injection Inject 45 Units under the skin Daily with meals AND 60 Units in the evening. Take with meals. 100 mL 3 isosorbide mononitrate ER (Imdur) 30 MG 24 hr tablet take 1 tablet by mouth every morning 30 tablet 2 Lancets 28G misc 1 Lancet in the morning. 100 each 3 lisinopril 40 MG tablet Take 1 tablet (40 mg) by mouth Daily 100 tablet 3 metFORMIN XR (Glucophage-XR) 500 MG 24 hr tablet Take 1 tablet (500 mg) by mouth in the morning and 1 tablet (500 mg) before bedtime. 200 tablet 3 nitroglycerin (Nitrostat) 0.[address] 1 tablet by sublingual route. OXcarbazepine (Trileptal) 300 MG tablet 1 1/2 tabs BID 90 tablet 5 pantoprazole (ProtoNix) 40 MG EC tablet Take 1 tablet (40 mg) by mouth in the morning and 1 tablet (40 mg) before bedtime. 200 tablet 3 RA Col-Rite 100 MG capsule Take 100 mg by mouth 2 (two) times a day as needed for constipation. spironolactone (Aldactone) 25 MG tablet Take 25 mg by mouth in the morning. [DISCONTINUED] nystatin (Nyamyc) [id number] UNIT/GM powder apply to affected area twice a day if needed 60 g 2 No current facility-administered medications on file prior to visit. I have reviewed and reconciled the history and medication list with the patient today. Allergies Allergen Reactions Diphenhydramine Other Reaction(s): Hives Social History Tobacco Use Smoking status: Never Smokeless tobacco: Never Vaping Use Vaping status: Never Used Substance Use Topics Alcohol use: Not Currently Comment: Caffeine Intake: soda/pop Drug use: Never Family History Problem Relation Name Age of Onset Colon cancer Mother Diabetes Mother Breast cancer Neg Hx Ovarian cancer Neg Hx Mental illness Neg Hx Alcohol abuse Neg Hx Drug abuse Neg Hx Past Medical History: Diagnosis Date CHF (congestive heart failure) (CMS/HCC) Chicken pox CVA (cerebral vascular accident) (CMS/HCC) Diabetic retinopathy (CMS/HCC) DM (diabetes mellitus) (CMS/HCC) Family history of cancer Gastric ulcer 11/2018 Heart disease Hemiplegia (CMS/HCC) History of being hospitalized 11/2018 Upper GI Bleed, Gastric Ulcers History of being hospitalized 01/15/2022 Fall, Closed Head Injury, Hypertensive Urgency History of echocardiogram 11/14/2018 EF 60% History of invasive ductal carcinoma of breast Lt Breast Invasive Ductal Carcinoma (11/07/2021) ER/SD+ Her2 neg HTN (hypertension) ([facility]) Hyperlipidemia ([facility]/HCC) Kidney disease Measles Mild mitral regurgitation 11/14/2018 MAYTE (obstructive sleep apnea) Personal history of other medical treatment Left breast IDC ER/SD + Her 2 neg Rib fracture Left 8th Rib Fracture (2021) Tremor Past Surgical History: Procedure Laterality Date BREAST BIOPSY Left 11/07/2021 BREAST LUMPECTOMY 12/20/2021 Lt. lumpectomy w/sln bx SLN CARDIAC CATHETERIZATION 02/02/2017 HEART CATH WITH STENT PLACEMENT --PAD,LAD CARPAL TUNNEL RELEASE Bilateral 2022 R CTR 08/27/23 L CTR 09/10/23 JAB CATARACT EXTRACTION SECTION, CLASSIC CT ANGIO HEAD 04/29/[address] ANGIOGRAM NECK 04/29/2018 CT ANGIOGRAM NECK TONSILLECTOMY VASCULAR SURGERY Visit Vitals BP 126/78 Pulse 77 Ht 5' 2 Wt 206 lb SpO2 99% BMI 37.68 kg/m OB Status Unknown Smoking Status Never BSA 2.02 m Review of Systems Objective Physical Exam Constitutional: General: She is not in acute distress. Appearance: She is well-developed. She is obese. HENT: Head: Normocephalic and atraumatic. Eyes: General: No scleral icterus. Conjunctiva/sclera: Conjunctivae normal. Cardiovascular: Rate and Rhythm: Normal rate and regular rhythm. Heart sounds: Normal heart sounds. No murmur heard. Pulmonary: Effort: Pulmonary effort is normal. No respiratory distress. Breath sounds: Normal breath sounds. No wheezing, rhonchi or rales. Skin: General: Skin is warm and dry. Neurological: General: No focal deficit present. Mental Status: She is alert and oriented to person, place, and time. Motor: Weakness present. Gait: Gait abnormal (Quad cane). Psychiatric: Mood and Affect: Mood normal. Behavior: Behavior normal. Assessment/Plan Diagnoses and all orders for this visit: Candidiasis of skin - nystatin (Nyamyc) [id number] UNIT/GM powder; Apply topically Daily Spinal stenosis of lumbar region, unspecified whether neurogenic claudication present - Ambulatory referral to Orthopaedic Surgery; Future - MRI was discussed. - This office visit was spent in consultation regarding the patient's current medical problems, differential diagnoses, testing/imaging results, and treatment options. Greater than 25 minutes was spent in [id number] consultation and coordination of care. Lumbar radiculopathy - Ambulatory referral to Orthopaedic Surgery; Future Follow up in about 2 months (around 11/28/2024) for Routine F/U. documented in this encounter [facility] 09-25-2024 History of Presen t illness Narrative Physical Therapy Treatment Visit Patient Name: Kyle Day Today's Date: 09/25/2024 Encounter Diagnoses Name Primary? Balance disorder Yes Frequent falls Visit number: 9 Timed Code Treatment Minutes: 40 minutes Total Treatment Time: 40 minutes Time In: 1430 Time Out: 1512 History: Pt states over the last 2 to 3 months she has been falling a lot. Pt states she fell again last night when trying to go up steps to get in the house. Pt states she has had 9 heart attacks and 9 strokes. Pt states she can only stand about 15 mins before legs get tired and she has to sit. Pt states she can't remember a lot or exactly why she is falls. Memory has been impacted by strokes. Pt's states she needs to become more active. Pt states most of falls are when she is reaching or leaning forward. Some falls are when legs give out on her. Pt has also fallen backwards when trying to get into car. Pt has neuropathy in bilateral LE's and states she can't feel her feet. Precautions: Frequent falls; 9 NM's, 9 CVA's Subjective: Pt states her legs are feeling more weak today. States she has had quite a bit more company the last few days for holidays. Left LE almost went out on her yesterday. Pt denies any pain. Pain: 0/10 Objective: PT Evaluation (08/20/2024) Functional Mobility: Transfers: Five Time Sit to Stand: 19.48 seconds with hands on knees. Gait: TUG with use of quad cane: 27.20 seconds GCA Strength: bilateral hips 3+/5, right quad 4- to 4/5, left quad 4-/5, right ankle DF 4/5, left ankle DF 4-/5 Balance: Tapia Balance Scale = 19 Treatment: Education: HEP education with demonstration, Educated on Eval Findings and POC Manual Therapy: Passive ROM, Joint mobilization, Soft Tissue Mobilization, Myofascial Release, Muscle Energy Technique, Neural Mobilization, Myofascial Cupping, Dry Needling, IASTM, and Scar mobilization as needed. Therapeutic Exercise: (28 minutes) Strength, Endurance, Flexibility, ROM, HEP, Neural Mobilization, Power, and Core Stability as needed. Bike x 10 minutes unsupervised. Therapeutic Activity: (12 minutes) Exercises to improve dynamic activities, functional tasks, functional mobility to return to prior activity level as needed. Neuromuscular re-education: () Balance Training, Muscle Facilitation, Dynamic Stability, Core Stabilization, and Blood Flow Restriction Training (BFRT) as needed. Modalities: Heat, Ice, Electrical Stimulation, Ultrasound, Cervical Mechanical Traction, Lumbar Mechanical Traction, Iontophoresis, and Fluidotherapy as needed. Assessment: Pt has completed 9 PT sessions for frequent falls and LE weakness. Held resistance with sitting exercises this date due to pt complaints of LE fatigue. Pt requires SB/CGA with standing activities. Will continue to progress as pt tolerates. Outcome Measure: Lower Extremity Functional Scale (LEFS): 38/80 Rehab Diagnosis: LE weakness Short Term Goal: To be met in 2 weeks Goal 1: Pt to be instructed in home exercise program. Custodial Goals: To be met in 10 weeks Goal 1: Pt to report independence and compliance with home program. Goal 2: Pt to complete TUG in less than 17.0 seconds with quad cane indicating improved gait and mobility. Goal 3: Pt to complete Five Sit to Stands in less than 14.0 seconds with hands on knees indicating improved functional strength of LE's. Goal 4: Pt to score no less than 50/80 on LEFS indicating improved QOL. Goal 5: Pt to score no less than 27/56 on Tapia Balance Scale indicating improved balance. Pt will benefit from skilled PT for 2x/week from 08/20/2024 to 10/29/2024 to address the above impairments. I hereby deem this POC medically necessary. Please sign below. Date: documented in this encounter [facility] 09-23-2024 History of Presen t illness Narrative Physical Therapy Treatment Visit Patient Name: Kyle Day Today's Date: 09/23/2024 Encounter Diagnoses Name Primary? Balance disorder Yes Frequent falls Visit number: 8 Timed Code Treatment Minutes: 42 minutes Total Treatment Time: 52 minutes Time In: 1123 Time Out: 1227 History: Pt states over the last 2 to 3 months she has been falling a lot. Pt states she fell again last night when trying to go up steps to get in the house. Pt states she has had 9 heart attacks and 9 strokes. Pt states she can only stand about 15 mins before legs get tired and she has to sit. Pt states she can't remember a lot or exactly why she is falls. Memory has been impacted by strokes. Pt's states she needs to become more active. Pt states most of falls are when she is reaching or leaning forward. Some falls are when legs give out on her. Pt has also fallen backwards when trying to get into car. Pt has neuropathy in bilateral LE's and states she can't feel her feet. Precautions: Frequent falls; 9 NM's, 9 CVA's Subjective: Pt states he right LE is causing her problems today; has to make sure leg wont give out before walking. Pain: 0/10 Objective: PT Evaluation (08/20/2024) Functional Mobility: Transfers: Five Time Sit to Stand: 19.48 seconds with hands on knees. Gait: TUG with use of quad cane: 27.20 seconds GCA Strength: bilateral hips 3+/5, right quad 4- to 4/5, left quad 4-/5, right ankle DF 4/5, left ankle DF 4-/5 Balance: Tapia Balance Scale = 19 Treatment: Education: HEP education with demonstration, Educated on Eval Findings and POC Manual Therapy: Passive ROM, Joint mobilization, Soft Tissue Mobilization, Myofascial Release, Muscle Energy Technique, Neural Mobilization, Myofascial Cupping, Dry Needling, IASTM, and Scar mobilization as needed. Therapeutic Exercise: (22 minutes) Strength, Endurance, Flexibility, ROM, HEP, Neural Mobilization, Power, and Core Stability as needed. Bike x 10 minutes unsupervised. Therapeutic Activity: (10 minutes) Exercises to improve dynamic activities, functional tasks, functional mobility to return to prior activity level as needed. Neuromuscular re-education: (10 minutes) Balance Training, Muscle Facilitation, Dynamic Stability, Core Stabilization, and Blood Flow Restriction Training (BFRT) as needed. Modalities: Heat, Ice, Electrical Stimulation, Ultrasound, Cervical Mechanical Traction, Lumbar Mechanical Traction, Iontophoresis, and Fluidotherapy as needed. Assessment: Pt has completed 8 PT sessions for frequent falls and LE weakness. TUG with quad cane: 24.65 seconds and 21.09 seconds. Pt continues to require SB/CGA with standing exercises for safety. Will continue to progress as pt tolerates. Outcome Measure: Lower Extremity Functional Scale (LEFS): 38/80 Rehab Diagnosis: LE weakness Short Term Goal: To be met in 2 weeks Goal 1: Pt to be instructed in home exercise program. Custodial Goals: To be met in 10 weeks Goal 1: Pt to report independence and compliance with home program. Goal 2: Pt to complete TUG in less than 17.0 seconds with quad cane indicating improved gait and mobility. Goal 3: Pt to complete Five Sit to Stands in less than 14.0 seconds with hands on knees indicating improved functional strength of LE's. Goal 4: Pt to score no less than 50/80 on LEFS indicating improved QOL. Goal 5: Pt to score no less than 27/56 on Tapia Balance Scale indicating improved balance. Pt will benefit from skilled PT for 2x/week from 08/20/2024 to 10/29/2024 to address the above impairments. I hereby deem this POC medically necessary. Please sign below. Date: documented in this encounter [facility] 09-15-2024 Telephone encounter Note Acknowledged. [facility] 09-15-2024 Miscellaneous Notes Acknowledged. Spoke with patient and she set up an appointment with DR Osman for further discission. Please let pt know that the MRI of her low back did show some abnormalities at the L4-L5 and L5-S1 levels. There are some degenerative disc changes that are causing some narrowing of the spinal canal and the openings for the nerve roots. I would recommend referral to a specialist to discuss options. If pt is agreeable, please place referral to neurosurgery. documented in this encounter [facility] 09-15-2024 Telephone encounter Note Spoke with patient and she set up an appointment with DR Osman for further discission. [facility] 09-15-2024 Telephone encounter Note Please let pt know that the MRI of her low back did show some abnormalities at the L4-L5 and L5-S1 levels. There are some degenerative disc changes that are causing some narrowing of the spinal canal and the openings for the nerve roots. I would recommend referral to a specialist to discuss options. If pt is agreeable, please place referral to neurosurgery. [facility] 09-11-2024 History of Presen t illness Narrative Physical Therapy Treatment Visit Patient Name: Kyle Day Today's Date: 09/11/2024 Encounter Diagnoses Name Primary? Balance disorder Yes Frequent falls Visit number: 5 Timed Code Treatment Minutes: 42 minutes Total Treatment Time: 52 minutes Time In: 1225 Time Out: 1320 History: Pt states over the last 2 to 3 months she has been falling a lot. Pt states she fell again last night when trying to go up steps to get in the house. Pt states she has had 9 heart attacks and 9 strokes. Pt states she can only stand about 15 mins before legs get tired and she has to sit. Pt states she can't remember a lot or exactly why she is falls. Memory has been impacted by strokes. Pt's states she needs to become more active. Pt states most of falls are when she is reaching or leaning forward. Some falls are when legs give out on her. Pt has also fallen backwards when trying to get into car. Pt has neuropathy in bilateral LE's and states she can't feel her feet. Precautions: Frequent falls; 9 NM's, 9 CVA's Subjective: Pt states MRI was ordered and pt is to have tomorrow in [place]. States she was pretty tired following last session. Doing exercises at home while sitting in chair. Pain: 0/10 Objective: PT Evaluation (08/20/2024) Functional Mobility: Transfers: Five Time Sit to Stand: 19.48 seconds with hands on knees. Gait: TUG with use of quad cane: 27.20 seconds GCA Strength: bilateral hips 3+/5, right quad 4- to 4/5, left quad 4-/5, right ankle DF 4/5, left ankle DF 4-/5 Balance: Tapia Balance Scale = 19 Treatment: Education: HEP education with demonstration, Educated on Eval Findings and POC Manual Therapy: Passive ROM, Joint mobilization, Soft Tissue Mobilization, Myofascial Release, Muscle Energy Technique, Neural Mobilization, Myofascial Cupping, Dry Needling, IASTM, and Scar mobilization as needed. Therapeutic Exercise: (42 minutes) Strength, Endurance, Flexibility, ROM, HEP, Neural Mobilization, Power, and Core Stability as needed. Bike x 10 minutes unsupervised. Therapeutic Activity: Exercises to improve dynamic activities, functional tasks, functional mobility to return to prior activity level as needed. Neuromuscular re-education: () Balance Training, Muscle Facilitation, Dynamic Stability, Core Stabilization, and Blood Flow Restriction Training (BFRT) as needed. Modalities: Heat, Ice, Electrical Stimulation, Ultrasound, Cervical Mechanical Traction, Lumbar Mechanical Traction, Iontophoresis, and Fluidotherapy as needed. Assessment: Pt has completed 5 PT sessions for frequent falls and LE weakness. Increase sets of sitting exercises this date with good tolerance. Five Time Sit to Stand: 27.58 seconds this date. Pt to have MRI of lumbar region tomorrow. Will continue to progress as appropriate. Outcome Measure: Lower Extremity Functional Scale (LEFS): 38/80 Rehab Diagnosis: LE weakness Short Term Goal: To be met in 2 weeks Goal 1: Pt to be instructed in home exercise program. Custodial Goals: To be met in 10 weeks Goal 1: Pt to report independence and compliance with home program. Goal 2: Pt to complete TUG in less than 17.0 seconds with quad cane indicating improved gait and mobility. Goal 3: Pt to complete Five Sit to Stands in less than 14.0 seconds with hands on knees indicating improved functional strength of LE's. Goal 4: Pt to score no less than 50/80 on LEFS indicating improved QOL. Goal 5: Pt to score no less than 27/56 on Tapia Balance Scale indicating improved balance. Pt will benefit from skilled PT for 2x/week from 08/20/2024 to 10/29/2024 to address the above impairments. I hereby deem this POC medically necessary. Please sign below. Date: documented in this encounter [facility] 09-10-2024 Note Cardiovascular Medic [facility] SUBJECTIVE Chief Complaint Patient presents with Fall Extremity Weakness Kyle Powell is a 68 y.o. female here for follow-up. HPI PMHx: CAD with prior PCI (BJ to LAD with instent restenosis ), HTN, DM type II on insulin, hx CVA, venous insufficiency, HLD, MAYTE, Hx CVA - 8, Hx GI bleed CHF - 2 exacerbations 09/10/2024 Patient here for follow up [facility] for fall. No EKG or labs were done while in the ED, so PCP took labs last week. Patient denies syncope, and states her falls are due to LE weakness. Gets lightheaded sometimes when she gets up too quickly. states after her AM and PM medications she is like a drunk , and can't walk straight. Saw PCP earlier today, and only sees neurology PRN she says. She reports she has had recent issues with falls. First started with weakness in the right leg, now also has weakness in left leg. Feels like her knees and ankles give out on her. She does therapy twice a week. She is pending an MRI later this week. Denies c/o CP, dyspnea, orthopnea, PND, LE edema, dizziness/LH, palpitations, syncope. Patient Active Problem List Diagnosis Anxiety state Benign essential hypertension Cerebral infarction (CMS/HCC) Chronic gastric ulcer with hemorrhage but without obstruction Chronic pain Chronic venous insufficiency Congestive heart failure (CMS/HCC) Cerebral ischemia Decreased estrogen level General weakness 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 (CMS/HCC) History of gastrointestinal disease Hyperglycemia due to type 2 diabetes mellitus (CMS/HCC) Hyperlipidemia supervisor intermediates current use of insulin (CMS/HCC) Memory loss Lumbar radiculopathy Mild nonproliferative diabetic retinopathy of both eyes without macular edema associated with type 2 diabetes mellitus (CMS/HCC) Moderate recurrent major depression (CMS/HCC) Moderate major depression, single episode (CMS/HCC) Muscle weakness Obstructive sleep apnea Polyneuropathy due to type 2 diabetes mellitus (CMS/HCC) 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 Tremor Diabetic neuropathy (CMS/HCC) Type 2 diabetes mellitus with diabetic neuropathy, unspecified (CMS/HCC) Abnormal mammogram Abnormal metabolic state due to diabetes mellitus (CMS/HCC) Attention and concentration deficit B12 deficiency Candidiasis of breast Candidiasis of skin Carotid stenosis, bilateral Carpal tunnel syndrome, bilateral Cervical spondylosis Degenerative disc disease, cervical Ductal carcinoma in situ (DCIS) of left breast Easy fatigability Gastrointestinal hemorrhage associated with gastric ulcer Invasive ductal carcinoma of left breast (CMS/HCC) Malignant neoplasm of upper-outer quadrant of left female breast (CMS/HCC) Mild nonproliferative diabetic retinopathy (CMS/HCC) Neurogenic pain Polyneuropathy Retrolisthesis of vertebrae Coronary arteriosclerosis Hand weakness Type 2 diabetes mellitus with hyperglycemia, with long-term current use of insulin (CMS/HCC) 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 No Known Allergies ROS Musculoskeletal: Positive for falls and myalgias. Neurological: Positive for light-headedness, loss of balance, numbness and weakness. All other systems reviewed and are negative. OBJECTIVE Visit Vitals BP 118/66 (BP Location: Right arm, Patient Position: Standing) Pulse 63 Ht 1.6 m (5' 3 ) Wt 91.6 kg (202 lb) SpO2 96% BMI 35.78 kg/m??? BSA 2.02 m??? Medications: Current Outpatient Medications: amLODIPine (Norvasc) 10 mg [...] morning and at bedtime., Disp: , Rfl: docusate sodium (Colace) 100 mg capsule, take 1 capsule by mouth twice a day if needed if needed for constipation for up to 10 days, Disp: , Rfl: empagliflozin (Jardiance) 10 mg, Take 10 mg by mouth in the morning., Disp: , Rfl: gabapentin (Neurontin) 300 mg capsule, Take 300 mg by mouth at bedtime., Disp: , Rfl: insulin aspart (NovoLOG) 100 unit/mL (3 mL) pen, Inject 1 Units under the skin., Disp: , Rfl: insulin glargine (Lantus) 100 u (more content not included)... [facility] 09-10-2024 Note Patient here for fol low up [facility] for fall. No EKG or labs were done while in the ED, so PCP took labs last week. Patient denies syncope, and states her falls are due to LE weakness. Gets lightheaded sometimes when she gets up too quickly. states after her AM and PM medications she is like a drunk , and can't walk straight. Saw PCP earlier today, and only sees neurology PRN she says. Review of Systems Musculoskeletal: Positive for falls and myalgias. Neurological: Positive for light-headedness, loss of balance, numbness and weakness. All other systems reviewed and are negative. [facility] 09-10-2024 History of Presen t illness Narrative Images from the original note were not included. Subjective : Chief Complaint: Kyle Powell is an 68 y.o. female here for an annual wellness visit. I have reviewed and reconciled the history and medication list with the patient today. Current Outpatient Medications Medication Sig Dispense Refill amLODIPine (Norvasc) 10 MG tablet Take 1 tablet (10 mg) by mouth in the morning. 100 tablet 3 anastrozole (Arimidex) 1 MG chemo tablet Take 1 mg by mouth Daily. aspirin 81 MG EC tablet Take 81 mg by mouth in the morning. atorvastatin (Lipitor) 80 MG tablet Take 1 tablet (80 mg) by mouth Daily 100 tablet 3 buPROPion XL (Wellbutrin XL) 150 MG 24 hr tablet Take 1 tablet (150 mg) by mouth in the morning. 100 tablet 3 carvedilol (Coreg) 12.5 MG tablet Take 1 tablet (12.5 mg) by mouth in the morning and 1 tablet (12.5 mg) before bedtime. 200 tablet 3 clopidogrel (Plavix) 75 MG tablet Take 1 tablet (75 mg) by mouth Daily 100 tablet 3 Continuous Glucose Sensor (FreeStyle Yesenia 2 Sensor) misc 1 Device every 14 (fourteen) days 2 each 11 Droplet Pen Leary 31G X 6 MM [facility] USE DIRECTED TWICE A DAY empagliflozin (Jardiance) 10 MG Take 1 tablet (10 mg) by mouth Daily 90 tablet 2 gabapentin (Neurontin) 300 MG capsule Take 1 capsule (300 mg) by mouth at bedtime 90 capsule 3 Glucose Blood (Blood Glucose Test Strips 333) strip 1 strip by In Vitro route in the morning. 100 strip 3 insulin lispro protamine-insulin lispro (HumaLOG Mix 75-25) (75-25) 100 UNIT/ML injection inject 60 units subcutaneously twice a day with meals and inject ... (REFER TO PRESCRIPTION NOTES). insulin NPH-insulin regular (NovoLIN 70/30) (70-30) 100 UNIT/ML injection Inject 45 Units under the skin Daily with meals AND 60 Units in the evening. Take with meals. 100 mL 3 isosorbide mononitrate ER (Imdur) 30 MG 24 hr tablet take 1 tablet by mouth every morning 30 tablet 2 Lancets 28G misc 1 Lancet in the morning. 100 each 3 lisinopril 40 MG tablet Take 1 tablet (40 mg) by mouth Daily 100 tablet 3 metFORMIN XR (Glucophage-XR) 500 MG 24 hr tablet Take 1 tablet (500 mg) by mouth in the morning and 1 tablet (500 mg) before bedtime. 200 tablet 3 nitroglycerin (Nitrostat) 0.[address] 1 tablet by sublingual route. nystatin (Nyamyc) 698293 UNIT/GM powder apply to affected area twice a day if needed 60 g 2 OXcarbazepine (Trileptal) 300 MG tablet 1 1/2 tabs BID 90 tablet 5 pantoprazole (ProtoNix) 40 MG EC tablet Take 1 tablet (40 mg) by mouth in the morning and 1 tablet (40 mg) before bedtime. 200 tablet 3 RA Col-Rite 100 MG capsule Take 100 mg by mouth 2 (two) times a day as needed for constipation. spironolactone (Aldactone) 25 MG tablet Take 25 mg by mouth in the morning. No current facility-administered medications for this visit. Review of Systems List of current healthcare providers: Patient Care Team: Faraz Osman MD as PCP - General (Internal Medicine) Faraz Osman MD as PCP - tna Medicare Annual Visit Over the past 2 weeks, how often have you been bothered by any of the following problems? Little interest or pleasure in doing things: Not at all Feeling down, depressed, or hopeless: Several days Patient Health Questionnaire-2 Score: 1 Saleem Fall Risk History of Falling, Immediate or Within 3 Months: Yes Ambulatory Aid: Crutches/cane/walker Health Risk Assessment Form Do you need help eating, bathing, using the toilet, dressing, or getting around your home?: No Can you prepare your own meals?: Yes Can you do your own housework without help?: No Can you shop for groceries or clothes without help?: No Do you exercise for about 20 minutes 3 or more days a week?: No How confident are you that you can control and manage most of your health problems?: Somewhat confident Can you mange your money, credit cards and accounts, pay bills and taxes?: Yes Cognitive Screening Three Word Registration: Apple, Watch, Fatmata Clock Drawing: Normal Clock - 2 Three Word Recall: All 3 words correct - 3 Total Score (0-5 Points): 5 Pain Assessment Pain Score: 8 Advance Care Planning Do you have a living will?: No Do you have a medical power of admitted attorneys?: No Objective : BP 128/70 Pulse 74 Ht 5' 2 Wt 203 lb SpO2 97% BMI 37.13 kg/m No results found. Physical Exam Office Visit on 09/10/2024 Component Date Value Ref Range Status Hemoglobin A1C 09/10/2024 7.7 Final Office Visit on 09/03/2024 Component Date Value Ref Range Status WHITE BLOOD CELL COUNT 09/03/2024 7.7 3.8 - 10.8 Thousand/uL Final RED BLOOD CELL COUNT 09/03/2024 4.90 3.80 - 5.10 Million/uL Final HEMOGLOBIN 09/03/2024 15.0 11.7 - 15.5 g/dL Final HEMATOCRIT 09/03/2024 45.3 (H) 35.0 - 45.0 % Final MCV 09/03/2024 92.4 80.0 - 100.0 fL Final MCH 09/03/2024 30.6 27.0 - 33.0 pg Final MCHC 09/03/2024 33.1 32.0 - 36.0 g/dL Final Comment: For adults, a slight decrease in the calculated MCHC value (in the range of 30 to 32 g/dL) is most likely not clinically significant; however, it should be interpreted with caution in correlation with other red cell parameters and the patient's clinical condition. RDW 09/03/2024 13.2 11.0 - 15.0 % Final PLATELET COUNT 09/03/2024 230 140 - 400 Thousand/uL Final MPV 09/03/2024 11.1 7.5 - 12.5 fL Final ABSOLUTE NEUTROPHILS 09/03/2024 4,820 1,500 - 7,800 cells/uL Final ABSOLUTE LYMPHOCYTES 09/03/2024 2,164 850 - 3,900 cells/uL Final ABSOLUTE MONOCYTES 09/03/2024 562 200 - 950 cells/uL Final ABSOLUTE EOSINOPHILS 09/03/2024 131 15 - 500 cells/uL Final ABSOLUTE BASOPHILS 09/03/2024 23 0 - 200 cells/uL Final NEUTROPHILS 09/03/2024 62.6 % Final LYMPHOCYTES 09/03/2024 28.1 % Final MONOCYTES 09/03/2024 7.3 % Final EOSINOPHILS 09/03/2024 1.7 % Final BASOPHILS 09/03/2024 0.3 % Final Glucose 09/03/2024 127 (H) 65 - 99 mg/dL Final Comment: Fasting reference interval For someone without known diabetes, a glucose value >125 mg/dL indicates that they may have diabetes and this should be confirmed with a follow-up test. BUN 09/03/2024 14 7 - 25 mg/dL Final Creatinine 09/03/2024 0.72 0.50 - 1.05 mg/dL Final EGFR 09/03/2024 91 > OR = 60 mL/min/1.73m2 Final BUN/CREATININE RATIO 09/03/2024 SEE NOTE: 6 - (calc) Final Comment: Not Reported: BUN and Creatinine are within reference range. Sodium 09/03/2024 142 135 - 146 mmol/L Final Potassium, Bld 09/03/2024 4.0 3.5 - 5.3 mmol/L Final Chloride 09/03/2024 106 98 - 110 mmol/L Final Carbon Dioxide 09/03/2024 25 20 - 32 mmol/L Final Calcium 09/03/2024 9.3 8.6 - 10.4 mg/dL Final PROTEIN, TOTAL 09/03/2024 7.3 6.1 - 8.1 g/dL Final ALBUMIN 09/03/2024 4.3 3.6 - 5.1 g/dL Final GLOBULIN 09/03/2024 3.0 1.9 - 3.7 g/dL (calc) Final ALBUMIN/GLOBULIN RATIO 09/03/2024 1.4 1.0 - 2.5 (calc) Final BILIRUBIN, TOTAL 09/03/2024 0.6 0.2 - 1.2 mg/dL Final ALKALINE PHOSPHATASE 09/03/2024 76 37 - 153 U/L Final AST 09/03/2024 16 10 - 35 U/L Final ALT 09/03/2024 18 6 - 29 U/L Final TSH W/REFLEX TO FT4 09/03/2024 2.02 0.40 - 4.50 mIU/L Final Assessment/Plan : The following health maintenance schedule was reviewed with the patient and provided in printed form in the after visit summary: Health Maintenance Topic Date Due Pneumococcal Vaccine: 65+ Years (2 of 2 - PCV) 04/20/2020 Diabetes: Retinopathy Screening 04/26/2024 Diabetes: Hemoglobin A1C 12/09/2024 Diabetes: Urine Protein Screening 02/03/2025 Colorectal Cancer Screening 07/07/2030 Influenza Vaccine Completed Mammogram Discontinued Advance Care Planning Patient agreed to discuss advance care planning at today's wellness visit. We discussed that an advance directive is a legal document that only goes into effect if the patient is incapacitated and unable to speak for himself or herself. This would help healthcare providers to ensure that the patient gets the care that he or she wishes to receive. The goal is to provide a patient with the best possible quality of life. Encouraged patient to obtain a living will and durable power of admitted attorneys for healthcare. We discussed telling grady people about their advance directives such as close family members, and requested a copy to scan into the patient's EHR. An advance directive packet was offered to the patient. Documentation on 09/10/2024 Component Date Value Ref Range Status RESULTS 04/15/2024 NDR Final Office Visit on 09/10/2024 Component Date Value Ref Range Status Hemoglobin A1C 09/10/2024 7.7 Final Office Visit on 09/03/2024 Component Date Value Ref Range Status WHITE BLOOD CELL COUNT 09/03/2024 7.7 3.8 - 10.8 Thousand/uL Final RED BLOOD CELL COUNT 09/03/2024 4.90 3.80 - 5.10 Million/uL Final HEMOGLOBIN 09/03/2024 15.0 11.7 - 15.5 g/dL Final HEMATOCRIT 09/03/2024 45.3 (H) 35.0 - 45.0 % Final MCV 09/03/2024 92.4 80.0 - 100.0 fL Final MCH 09/03/2024 30.6 27.0 - 33.0 pg Final MCHC 09/03/2024 33.1 32.0 - 36.0 g/dL Final Comment: For adults, a slight decrease in the calculated MCHC value (in the range of 30 to 32 g/dL) is most likely not clinically significant; however, it should be interpreted with caution in correlation with other red cell parameters and the patient's clinical condition. RDW 09/03/2024 13.2 11.0 - 15.0 % Final PLATELET COUNT 09/03/2024 230 140 - 400 Thousand/uL Final MPV 09/03/2024 11.1 7.5 - 12.5 fL Final ABSOLUTE NEUTROPHILS 09/03/2024 4,820 1,500 - 7,800 cells/uL Final ABSOLUTE LYMPHOCYTES 09/03/2024 2,164 850 - 3,900 cells/uL Final ABSOLUTE MONOCYTES 09/03/2024 562 200 - 950 cells/uL Final ABSOLUTE EOSINOPHILS 09/03/2024 131 15 - 500 cells/uL Final ABSOLUTE BASOPHILS 09/03/2024 23 0 - 200 cells/uL Final NEUTROPHILS 09/03/2024 62.6 % Final LYMPHOCYTES 09/03/2024 28.1 % Final MONOCYTES 09/03/2024 7.3 % Final EOSINOPHILS 09/03/2024 1.7 % Final BASOPHILS 09/03/2024 0.3 % Final Glucose 09/03/2024 127 (H) 65 - 99 mg/dL Final Comment: Fasting reference interval For someone without known diabetes, a glucose value >125 mg/dL indicates that they may have diabetes and this should be confirmed with a follow-up test. BUN 09/03/2024 14 7 - 25 mg/dL Final Creatinine 09/03/2024 0.72 0.50 - 1.05 mg/dL Final EGFR 09/03/2024 91 > OR = 60 mL/min/1.73m2 Final BUN/CREATININE RATIO 09/03/2024 SEE NOTE: 6 - 22 (calc) Final Comment: Not Reported: BUN and Creatinine are within reference range. Sodium 09/03/2024 142 135 - 146 mmol/L Final Potassium, Bld 09/03/2024 4.0 3.5 - 5.3 mmol/L Final Chloride 09/03/2024 106 98 - 110 mmol/L Final Carbon Dioxide 09/03/2024 25 20 - 32 mmol/L Final Calcium 09/03/2024 9.3 8.6 - 10.4 mg/dL Final PROTEIN, TOTAL 09/03/2024 7.3 6.1 - 8.1 g/dL Final ALBUMIN 09/03/2024 4.3 3.6 - 5.1 g/dL Final GLOBULIN 09/03/2024 3.0 1.9 - 3.7 g/dL (calc) Final ALBUMIN/GLOBULIN RATIO 09/03/2024 1.4 1.0 - 2.5 (calc) Final BILIRUBIN, TOTAL 09/03/2024 0.6 0.2 - 1.2 mg/dL Final ALKALINE PHOSPHATASE 09/03/2024 76 37 - 153 U/L Final AST 09/03/2024 16 10 - 35 U/L Final ALT 09/03/2024 18 6 - 29 U/L Final TSH W/REFLEX TO FT4 09/03/2024 2.02 0.40 - 4.50 mIU/L Final Assessment/Plan Diagnoses and all orders for this visit: Routine general medical examination at health care facility ACP (advance care planning) Flu vaccine need - Influenza, high-dose seasonal, quadrivalent, PF (SBJ948) (Fluzone High Dose [place] 0.7mL dose) Type 2 diabetes mellitus with diabetic neuropathy, with long-term current use of insulin ([facility]) - POCT Glycated hemoglobin, total Estrogen deficiency - DEXA bone density; Future Breast screening - Bilateral screening mammogram; Future Orders Placed This Encounter Procedures DEXA bone density Standing Status: Future Standing Expiration Date: 09/10/2025 Order Specific Question: Reason for exam: Answer: see dx Bilateral screening mammogram Standing Status: Future Standing Expiration Date: 11/11/2025 Order Specific Question: Reason for exam: Answer: screening Influenza, high-dose seasonal, quadrivalent, PF (FIP013) (Fluzone High Dose [place] 0.7mL dose) POCT Glycated hemoglobin, total Follow up in about 4 weeks (around 10/08/2024). Electronically signed by Faraz Osman MD on September 10, 2024 documented in this encounter [facility] 09-03-2024 History of Presen t illness Narrative Images from the original note were not included. HPI Follow-up Additional comments: [facility] ER 08/26/24 dx: multiple falls,closed head injury discharged home no med changes Pt has follow up with cardiology today Med Refill Additional comments: Nystatin powder-- DM capo Last edited by Holly Joy LPN on 09/03/2024 8:40 AM. Subjective Patient ID: Kyle Powell is a 68 y.o. female who presents for Follow-up ([facility] ER 08/26/24 dx: multiple falls,closed head injury discharged home no med changes/Pt has follow up with cardiology today) and Med Refill (Nystatin powder-- DM capo). Pt states she has not fallen since ER visit She is using cane at home Med Refill Associated symptoms include chest pain. Pertinent negatives include no abdominal pain, chills, coughing, fatigue, fever, nausea, rash or vomiting. Diabetes Associated symptoms include chest pain. Pertinent negatives for diabetes include no fatigue. Breast Pain Associated Symptoms: breast pain Current Outpatient Medications on File Prior to Visit Medication Sig Dispense Refill amLODIPine (Norvasc) 10 MG tablet Take 1 tablet (10 mg) by mouth in the morning. 100 tablet 3 anastrozole (Arimidex) 1 MG chemo tablet Take 1 mg by mouth Daily. aspirin 81 MG EC tablet Take 81 mg by mouth in the morning. atorvastatin (Lipitor) 80 MG tablet Take 1 tablet (80 mg) by mouth Daily 100 tablet 3 buPROPion XL (Wellbutrin XL) 150 MG 24 hr tablet Take 1 tablet (150 mg) by mouth in the morning. 100 tablet 3 carvedilol (Coreg) 12.5 MG tablet Take 1 tablet (12.5 mg) by mouth in the morning and 1 tablet (12.5 mg) before bedtime. 200 tablet 3 clopidogrel (Plavix) 75 MG tablet Take 1 tablet (75 mg) by mouth Daily 100 tablet 3 Continuous Glucose Sensor (FreeStyle Yesenia 2 Sensor) [facility] 1 Device every 14 (fourteen) days 2 each 11 Droplet Pen Leary 31G X 6 MM [facility] USE DIRECTED TWICE A DAY empagliflozin (Jardiance) 10 MG Take 1 tablet (10 mg) by mouth Daily 90 tablet 2 gabapentin (Neurontin) 300 MG capsule Take 1 capsule (300 mg) by mouth at bedtime 90 capsule 3 Glucose Blood (Blood Glucose Test Strips 333) strip 1 strip by In Vitro route in the morning. 100 strip 3 insulin lispro protamine-insulin lispro (HumaLOG Mix 75-25) (75-25) 100 UNIT/ML injection inject 60 units subcutaneously twice a day with meals and inject ... (REFER TO PRESCRIPTION NOTES). insulin NPH-insulin regular (NovoLIN 70/30) (70-30) 100 UNIT/ML injection Inject 45 Units under the skin Daily with meals AND 60 Units in the evening. Take with meals. 100 mL 3 isosorbide mononitrate ER (Imdur) 30 MG 24 hr tablet take 1 tablet by mouth every morning 30 tablet 2 Lancets 28G misc 1 Lancet in the morning. 100 each 3 lisinopril 40 MG tablet Take 1 tablet (40 mg) by mouth Daily 100 tablet 3 metFORMIN XR (Glucophage-XR) 500 MG 24 hr tablet Take 1 tablet (500 mg) by mouth in the morning and 1 tablet (500 mg) before bedtime. 200 tablet 3 nitroglycerin (Nitrostat) 0.[address] 1 tablet by sublingual route. nystatin (Nyamyc) [id number] UNIT/GM powder apply to affected area twice a day if needed 60 g 2 OXcarbazepine (Trileptal) 300 MG tablet 1 1/2 tabs BID 90 tablet 5 pantoprazole (ProtoNix) 40 MG EC tablet Take 1 tablet (40 mg) by mouth in the morning and 1 tablet (40 mg) before bedtime. 200 tablet 3 RA Col-Rite 100 MG capsule Take 100 mg by mouth 2 (two) times a day as needed for constipation. spironolactone (Aldactone) 25 MG tablet Take 25 mg by mouth in the morning. No current facility-administered medications on file prior to visit. I have reviewed and reconciled the history and medication list with the patient today. Allergies Allergen Reactions Diphenhydramine Other Reaction(s): Hives Social History Tobacco Use Smoking status: Never Smokeless tobacco: Never Vaping Use Vaping status: Never Used Substance Use Topics Alcohol use: Not Currently Comment: Caffeine Intake: soda/pop Drug use: Never Family History Problem Relation Name Age of Onset Colon cancer Mother Diabetes Mother Breast cancer Neg Hx Ovarian cancer Neg Hx Mental illness Neg Hx Alcohol abuse Neg Hx Drug abuse Neg Hx Past Medical History: Diagnosis Date CHF (congestive heart failure) (CMS/HCC) Chicken pox CVA (cerebral vascular accident) ([facility]) Diabetic retinopathy ([facility]) DM (diabetes mellitus) ([facility]) Family history of cancer Gastric ulcer 11/2018 Heart disease Hemiplegia ([facility]) History of being hospitalized 11/2018 Upper GI Bleed, Gastric Ulcers History of being hospitalized 01/15/2022 Fall, Closed Head Injury, Hypertensive Urgency History of echocardiogram 11/14/2018 EF 60% History of invasive ductal carcinoma of breast Lt Breast Invasive Ductal Carcinoma (11/07/2021) ER/SD+ Her2 neg HTN (hypertension) ([facility]) Hyperlipidemia ([facility]) Kidney disease Measles Mild mitral regurgitation 11/14/2018 MAYTE (obstructive sleep apnea) Personal history of other medical treatment Left breast IDC ER/SD + Her 2 neg Rib fracture Left 8th Rib Fracture (2021) Tremor Past Surgical History: Procedure Laterality Date BREAST BIOPSY Left 11/07/2021 BREAST LUMPECTOMY 12/20/2021 Lt. lumpectomy w/sln bx 0 SLN CARDIAC CATHETERIZATION 02/02/2017 HEART CATH WITH STENT PLACEMENT --PAD,LAD CARPAL TUNNEL RELEASE Bilateral 2022 R CTR 08/27/23 L CTR 09/10/23 JAB CATARACT EXTRACTION SECTION, CLASSIC CT ANGIO HEAD 04/29/[address] ANGIOGRAM NECK 04/29/2018 CT ANGIOGRAM NECK TONSILLECTOMY VASCULAR SURGERY Visit Vitals BP 136/84 Pulse 83 Ht 5' 2 Wt 204 lb SpO2 97% BMI 37.31 kg/m OB Status Unknown Smoking Status Never BSA 2.01 m Review of Systems Constitutional: Negative for chills, fatigue and fever. Respiratory: Negative for cough. Cardiovascular: Positive for chest pain. Gastrointestinal: Negative for abdominal pain, nausea and vomiting. Skin: Negative for rash. Objective Physical Exam Constitutional: General: She is not in acute distress. Appearance: She is well-developed. She is obese. HENT: Head: Normocephalic and atraumatic. Eyes: General: No scleral icterus. Conjunctiva/sclera: Conjunctivae normal. Cardiovascular: Rate and Rhythm: Normal rate and regular rhythm. Heart sounds: Normal heart sounds. No murmur heard. Pulmonary: Effort: Pulmonary effort is normal. No respiratory distress. Breath sounds: Normal breath sounds. No wheezing, rhonchi or rales. Skin: General: Skin is warm and dry. Neurological: General: No focal deficit present. Mental Status: She is alert and oriented to person, place, and time. Motor: Weakness present. Gait: Gait abnormal (Quad cane). Psychiatric: Mood and Affect: Mood normal. Behavior: Behavior normal. Assessment/Plan Diagnoses and all orders for this visit: General weakness - CBC and differential - Comprehensive metabolic panel; Future - TSH W/REFLEX TO FT4; Future - The patient was seen today in follow up of recent hospital ER visit. All available hospital records/labs/diagnostics were reviewed and discussed with the patient. ER discharge meds were reviewed. Any changes to plan are noted above. - This office visit was spent in consultation regarding the patient's current medical problems, differential diagnoses, testing/imaging results, and treatment options. Greater than 25 minutes was spent in [id number] consultation and coordination of care. 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 documented in this encounter [facility] 08-11-2024 History of Presen t illness Narrative Images from the original note were not included. Subjective Patient ID: Kyle Powell is a 68 y.o. female who presents for a rash Kyle is in today for a rash on her chest and face. States its been going on for 2 weeks, states she thought it would go away but it just is getting worse. Hasn't changed or tried anything new. No new medications, foods, soaps, clothes, detergent. Says its not painful just itches, says a cold washcloth in the morning is the only thing that helps it. Wakes her up due to itching. has a video from 4 nights ago after pt taking a nap and it took her 20 minutes to respond, didn't respond to him until he hollered at her. Took Gabapentin and Oxcarbazepine at 8:30 pm. He tried to wake her up at 2 am. That is the time he took the video of the patient. She had a hard time standing up. Doesn't normally go to bed right after, waits for it to put her to sleep. This is the only time it has been an issue for pt. States he often wakes her up early in the morning to get her to go from fitness coach to her bed. Fell today getting into the car. Raised her foot to get into the car and fell backwards. Having trouble with her legs, knees give out, and has to sit down after about 15 minutes. Pt's states pt just sits in her chair or on the couch all day. Current Outpatient Medications on File Prior to Visit Medication Sig Dispense Refill amLODIPine (Norvasc) 10 MG tablet Take 1 tablet (10 mg) by mouth in the morning. 100 tablet 3 anastrozole (Arimidex) 1 MG chemo tablet Take 1 mg by mouth Daily. aspirin 81 MG EC tablet Take 81 mg by mouth in the morning. atorvastatin (Lipitor) 80 MG tablet Take 1 tablet (80 mg) by mouth Daily 100 tablet 3 buPROPion XL (Wellbutrin XL) 150 MG 24 hr tablet Take 1 tablet (150 mg) by mouth in the morning. 100 tablet 3 carvedilol (Coreg) 12.5 MG tablet Take 1 tablet (12.5 mg) by mouth in the morning and 1 tablet (12.5 mg) before bedtime. 200 tablet 3 clopidogrel (Plavix) 75 MG tablet Take 1 tablet (75 mg) by mouth Daily 100 tablet 3 Continuous Glucose Sensor (FreeStyle Yesenia 2 Sensor) [facility] [place] 1 Device every 14 (fourteen) days 2 each 11 Droplet Pen Leary 31G X 6 MM [facility] USE DIRECTED TWICE A DAY empagliflozin (Jardiance) 10 MG Take 1 tablet (10 mg) by mouth Daily 90 tablet 2 gabapentin (Neurontin) 300 MG capsule Take 1 capsule (300 mg) by mouth at bedtime 90 capsule 3 Glucose Blood (Blood Glucose Test Strips 333) strip 1 strip by In Vitro route in the morning. 100 strip 3 insulin lispro protamine-insulin lispro (HumaLOG Mix 75-25) (75-25) 100 UNIT/ML injection inject 60 units subcutaneously twice a day with meals and inject ... (REFER TO PRESCRIPTION NOTES). insulin NPH-insulin regular (NovoLIN 70/30) (70-30) 100 UNIT/ML injection Inject 45 Units under the skin Daily with meals AND 60 Units in the evening. Take with meals. 100 mL 3 isosorbide mononitrate ER (Imdur) 30 MG 24 hr tablet take 1 tablet by mouth every morning 30 tablet 2 Lancets 28G misc 1 Lancet in the morning. 100 each 3 lisinopril 40 MG tablet Take 1 tablet (40 mg) by mouth Daily 100 tablet 3 metFORMIN XR (Glucophage-XR) 500 MG 24 hr tablet Take 1 tablet (500 mg) by mouth in the morning and 1 tablet (500 mg) before bedtime. 200 tablet 3 nitroglycerin (Nitrostat) 0.[address] 1 tablet by sublingual route. nystatin (Nyamyc) [id number] UNIT/GM powder apply to affected area twice a day if needed 60 g 2 OXcarbazepine (Trileptal) 300 MG tablet 1 1/2 tabs BID 90 tablet 5 pantoprazole (ProtoNix) 40 MG EC tablet Take 1 tablet (40 mg) by mouth in the morning and 1 tablet (40 mg) before bedtime. 200 tablet 3 RA Col-Rite 100 MG capsule Take 100 mg by mouth 2 (two) times a day as needed for constipation. spironolactone (Aldactone) 25 MG tablet Take 25 mg by mouth in the morning. No current facility-administered medications on file prior to visit. I have reviewed and reconciled the history and medication list with the patient today. Allergies Allergen Reactions Diphenhydramine Other Reaction(s): Hives Social History Tobacco Use Smoking status: Never Smokeless tobacco: Never Vaping Use Vaping status: Never Used Substance Use Topics Alcohol use: Not Currently Comment: Caffeine Intake: soda/pop Drug use: Never Family History Problem Relation Name Age of Onset Colon cancer Mother Diabetes Mother Breast cancer Neg Hx Ovarian cancer Neg Hx Mental illness Neg Hx Alcohol abuse Neg Hx Drug abuse Neg Hx Past Medical History: Diagnosis Date CHF (congestive heart failure) (CMS/HCC) Chicken pox CVA (cerebral vascular accident) (CMS/HCC) Diabetic retinopathy (CMS/HCC) DM (diabetes mellitus) (CMS/HCC) Family history of cancer Gastric ulcer 11/2018 Heart disease Hemiplegia (CMS/HCC) History of being hospitalized 11/2018 Upper GI Bleed, Gastric Ulcers History of being hospitalized 01/15/2022 Fall, Closed Head Injury, Hypertensive Urgency History of echocardiogram 11/14/2018 EF 60% History of invasive ductal carcinoma of breast Lt Breast Invasive Ductal Carcinoma (11/07/2021) ER/SD+ Her2 neg HTN (hypertension) (CMS/HCC) Hyperlipidemia (CMS/HCC) Kidney disease Measles Mild mitral regurgitation 11/14/2018 MAYTE (obstructive sleep apnea) Personal history of other medical treatment Left breast IDC ER/SD + Her 2 neg Rib fracture Left 8th Rib Fracture (2021) Tremor Past Surgical History: Procedure Laterality Date BREAST BIOPSY Left 11/07/2021 BREAST LUMPECTOMY 12/20/2021 Lt. lumpectomy w/sln bx 0 SLN CARDIAC CATHETERIZATION 02/02/2017 HEART CATH WITH STENT PLACEMENT --PAD,LAD CARPAL TUNNEL RELEASE Bilateral 2022 R CTR 08/27/23 L CTR 09/10/23 JAB CATARACT EXTRACTION SECTION, CLASSIC CT ANGIO HEAD 04/29/[address] ANGIOGRAM NECK 04/29/2018 CT ANGIOGRAM NECK TONSILLECTOMY VASCULAR SURGERY Visit Vitals BP 120/70 Pulse 89 Resp 17 Wt 208 lb 12.8 oz SpO2 97% BMI 38.19 kg/m OB Status Unknown Smoking Status Never BSA 2.04 m Review of Systems Constitutional: Negative for chills, fatigue and fever. Respiratory: Negative for cough, shortness of breath and wheezing. Cardiovascular: Negative for chest pain, palpitations and leg swelling. Gastrointestinal: Negative for abdominal pain, constipation, diarrhea, nausea and vomiting. Skin: Positive for rash (Itchy). Neurological: Balance issues, falls Objective Physical Exam Constitutional: General: She is not in acute distress. Appearance: She is well-developed. She is obese. HENT: Head: Normocephalic and atraumatic. Eyes: General: No scleral icterus. Conjunctiva/sclera: Conjunctivae normal. Cardiovascular: Rate and Rhythm: Normal rate and regular rhythm. Heart sounds: Normal heart sounds. No murmur heard. Pulmonary: Effort: Pulmonary effort is normal. No respiratory distress. Breath sounds: Normal breath sounds. No wheezing, rhonchi or rales. Skin: General: Skin is warm and dry. Findings: Erythema and rash present. Comments: Anterior chest and bilateral cheeks with macular/papular erythematous, pruritic rash. See photo Neurological: General: No focal deficit present. Mental Status: She is alert and oriented to person, place, and time. Gait: Gait abnormal (Quad cane). Psychiatric: Mood and Affect: Mood normal. Behavior: Behavior normal. Assessment/Plan Diagnoses and all orders for this visit: Dermatitis - predniSONE (Deltasone) 10 MG tablet; Take 1 tablet (10 mg) by mouth in the morning and 1 tablet (10 mg) at noon. Do all this for 5 days. Take with breakfast and with lunch. - triamcinolone (Kenalog) 0.5 % cream; Apply topically 3 (three) times a day for 10 days Start Prednisone as prescribed. Advised patient to take it with food. Also advised patient of potential s/e, may temporarily elevate glucose levels. Do not take any other anti-inflammatories while on steroid. Can use Triamcinolone cream to affected areas as prescribed. Watch rash closely. Otherwise follow up here prn. Balance disorder - Ambulatory referral to Physical Therapy; Future Provided pt with referral to PT for gait/balance training. Frequent falls - Ambulatory referral to Physical Therapy; Future Provided pt with referral to PT for gait/balance training. Encouraged her to make sure she does get up and move several times throughout the day. Avoid sitting all day. Stay more active, but know her limits. Avoid overdoing it, which would also place her at risk for falls. Needs to gradually work on improving her strength and balance. Encouraged pt to go directly to bed after taking sedative medications to avoid having to transfer late at night and increase risk of falls. Can discuss any other issues with the neurologic medications with Dr. Agudelo. Follow up for Appointment As Scheduled. documented in this encounter [facility] 07-09-2024 History of Presen t illness Narrative Associated Order(s): Ear Cerumen Removal Post-Procedure Diagnose(s): Impacted cerumen of left ear Images from the original note were not included. Subjective Patient ID: Kyle Powell is a 68 y.o. female who presents for Cerumen Impaction. Pt is here due to having wax in her ears Pt can not hear out of her left ear she has used otc ear wax removal and states it did not help and made it worse Pt has not taken her BP it is 160/102 today Current Outpatient Medications on File Prior to Visit Medication Sig Dispense Refill insulin lispro protamine-insulin lispro (HumaLOG Mix 75-25) (75-25) 100 UNIT/ML injection inject 60 units subcutaneously twice a day with meals and inject ... (REFER TO PRESCRIPTION NOTES). amLODIPine (Norvasc) 10 MG tablet Take 1 tablet (10 mg) by mouth in the morning. 100 tablet 3 anastrozole (Arimidex) 1 MG chemo tablet Take 1 mg by mouth Daily. aspirin 81 MG EC tablet Take 81 mg by mouth in the morning. atorvastatin (Lipitor) 80 MG tablet Take 1 tablet (80 mg) by mouth Daily 100 tablet 3 buPROPion XL (Wellbutrin XL) 150 MG 24 hr tablet Take 1 tablet (150 mg) by mouth in the morning. 100 tablet 3 carvedilol (Coreg) 12.5 MG tablet Take 1 tablet (12.5 mg) by mouth in the morning and 1 tablet (12.5 mg) before bedtime. 200 tablet 3 clopidogrel (Plavix) 75 MG tablet Take 1 tablet (75 mg) by mouth Daily 100 tablet 3 Continuous Glucose Sensor (FreeStyle Yesenia 2 Sensor) [facility] [place] 1 Device every 14 (fourteen) days 2 each 11 Droplet Pen Leary 31G X 6 MM [facility] USE DIRECTED TWICE A DAY empagliflozin (Jardiance) 10 MG Take 1 tablet (10 mg) by mouth Daily 90 tablet 2 gabapentin (Neurontin) 300 MG capsule Take 1 capsule (300 mg) by mouth at bedtime 90 capsule 3 Glucose Blood (Blood Glucose Test Strips 333) strip 1 strip by In Vitro route in the morning. 100 strip 3 insulin NPH-insulin regular (NovoLIN 70/30) (70-30) 100 UNIT/ML injection Inject 45 Units under the skin Daily with meals AND 60 Units in the evening. Take with meals. 100 mL 3 isosorbide mononitrate ER (Imdur) 30 MG 24 hr tablet take 1 tablet by mouth every morning 30 tablet 2 Lancets 28G misc 1 Lancet in the morning. 100 each 3 lisinopril 40 MG tablet Take 1 tablet (40 mg) by mouth Daily 100 tablet 3 metFORMIN XR (Glucophage-XR) 500 MG 24 hr tablet Take 1 tablet (500 mg) by mouth in the morning and 1 tablet (500 mg) before bedtime. 200 tablet 3 nitroglycerin (Nitrostat) 0.[address] 1 tablet by sublingual route. nystatin (Nyamyc) [id number] UNIT/GM powder apply to affected area twice a day if needed 60 g 2 OXcarbazepine (Trileptal) 300 MG tablet 1 1/2 tabs BID 90 tablet 5 pantoprazole (ProtoNix) 40 MG EC tablet Take 1 tablet (40 mg) by mouth in the morning and 1 tablet (40 mg) before bedtime. 200 tablet 3 RA Col-Rite 100 MG capsule Take 100 mg by mouth 2 (two) times a day as needed for constipation. spironolactone (Aldactone) 25 MG tablet Take 25 mg by mouth in the morning. No current facility-administered medications on file prior to visit. I have reviewed and reconciled the history and medication list with the patient today. Allergies Allergen Reactions Diphenhydramine Other Reaction(s): Hives Social History Tobacco Use Smoking status: Never Smokeless tobacco: Never Vaping Use Vaping status: Never Used Substance Use Topics Alcohol use: Not Currently Comment: Caffeine Intake: soda/pop Drug use: Never Family History Problem Relation Name Age of Onset Colon cancer Mother Diabetes Mother Breast cancer Neg Hx Ovarian cancer Neg Hx Mental illness Neg Hx Alcohol abuse Neg Hx Drug abuse Neg Hx Past Medical History: Diagnosis Date CHF (congestive heart failure) ([facility]) Chicken pox CVA (cerebral vascular accident) ([facility]) Diabetic retinopathy ([facility]) DM (diabetes mellitus) ([facility]) Family history of cancer Gastric ulcer 11/2018 Heart disease Hemiplegia ([facility]) History of being hospitalized 11/2018 Upper GI Bleed, Gastric Ulcers History of being hospitalized 01/15/2022 Fall, Closed Head Injury, Hypertensive Urgency History of echocardiogram 11/14/2018 EF 60% History of invasive ductal carcinoma of breast Lt Breast Invasive Ductal Carcinoma (11/07/2021) ER/SD+ Her2 neg HTN (hypertension) (CMS/HCC) Hyperlipidemia (CMS/[facility]) Kidney disease Measles Mild mitral regurgitation 11/14/2018 MAYTE (obstructive sleep apnea) Personal history of other medical treatment Left breast IDC ER/SD + Her 2 neg Rib fracture Left 8th Rib Fracture (2021) Tremor Past Surgical History: Procedure Laterality Date BREAST BIOPSY Left 11/07/2021 BREAST LUMPECTOMY 12/20/2021 Lt. lumpectomy w/sln bx SLN CARDIAC CATHETERIZATION 02/02/2017 HEART CATH WITH STENT PLACEMENT --PAD,LAD CARPAL TUNNEL RELEASE Bilateral 2022 R CTR 08/27/23 L CTR 09/10/23 JAB CATARACT EXTRACTION SECTION, CLASSIC CT ANGIO HEAD 04/29/[address] ANGIOGRAM NECK 04/29/2018 CT ANGIOGRAM NECK TONSILLECTOMY VASCULAR SURGERY Visit Vitals OB Status Unknown Smoking Status Never Review of Systems HENT: Positive for ear pain and hearing loss. Objective Physical Exam Constitutional: Appearance: Normal appearance. HENT: Head: Normocephalic and atraumatic. Ears: Comments: Excess cerumen to the right ear, left ear with cerumen impacted to the left ear. Nose: Nose normal. Mouth/Throat: Mouth: Mucous membranes are moist. Pharynx: Oropharynx is clear. Eyes: Extraocular Movements: Extraocular movements intact. Conjunctiva/sclera: Conjunctivae normal. Pupils: Pupils are equal, round, and reactive to light. Cardiovascular: Rate and Rhythm: Normal rate and regular rhythm. Pulses: Normal pulses. Heart sounds: Normal heart sounds. Pulmonary: Effort: Pulmonary effort is normal. Breath sounds: Normal breath sounds. Abdominal: Palpations: Abdomen is soft. Musculoskeletal: General: Normal range of motion. Cervical back: Normal range of motion and neck supple. Skin: General: Skin is warm and dry. Neurological: General: No focal deficit present. Mental Status: She is alert and oriented to person, place, and time. Psychiatric: Mood and Affect: Mood normal. Behavior: Behavior normal. Thought Content: Thought content normal. Judgment: Judgment normal. Patient ID: Kyle Powell is a 68 y.o. female. Ear Cerumen Removal Date/Time: 07/09/2024 2:48 PM Performed by: Darrel Edwards NP Authorized by: Darrel Edwards NP Consent: Consent obtained: Verbal Consent given by: Patient Risks, benefits, and alternatives were discussed: yes Risks discussed: Bleeding, infection, pain, dizziness, incomplete removal and TM perforation Alternatives discussed: Alternative treatment [place] protocol: Procedure explained and questions answered to patient or proxy's satisfaction: yes Procedure details: Location: L ear Procedure type: irrigation Procedure type comment: Alternating with irrigation and use of curette Post-procedure details: Inspection: Bleeding, macerated skin and TM intact Hearing quality: Improved Procedure completion: Tolerated well, no immediate complications Assessment/Plan 1. Impacted cerumen of left ear - carbamide peroxide (Debrox) 6.5 % otic solution; Administer 5 drops into affected ear(s) in the morning and 5 drops before bedtime. Do all this for 4 days. Dispense: 15 mL; Refill: 0 No follow-ups on file. documented in this encounter [facility] 07-09-2024 Instructions Darrel Edwards NP - 07/09/2024 3:00 PM EDT Debrox ordered documented in this encounter [facility] 06-11-2024 History of Presen t illness Narrative Images from the original note were not included. HPI Med Refill Additional comments: Freestyle yesenia 2 sensors--DM capo Last edited by Holly Joy LPN on 06/11/2024 2:16 PM. Subjective Patient ID: Kyle Powell is a 68 y.o. female who presents for Diabetes and Med Refill (Freestyle yesenia 2 sensors--DM capo). Pt also states she has had a few episodes since lasy visit where her face turns red and her lips turn blue Subjective Patient is a 67 y.o. female who presents for follow-up of atherosclerotic coronary artery disease. Recent history: taking medications as instructed, noting some chest pains , notes stable dyspnea on exertion, no change, no swelling of ankles, no orthopnea or paroxysmal nocturnal dyspnea, and no palpitations. Patient's symptoms have been stable. Medication side effects include: none. Diabetes Mellitus Patient presents for follow up of diabetes. Current symptoms include: hypoglycemia . Patient denies foot ulcerations, nausea, polydipsia, and polyuria. Evaluation to date has included: fasting blood sugar, fasting lipid panel, and hemoglobin A1C. Home sugars: BGs range between 120 and 135 Diabetes Associated symptoms include chest pain. Pertinent negatives for diabetes include no fatigue. Med Refill Associated symptoms include chest pain. Pertinent negatives include no abdominal pain, chills, coughing, fatigue, fever, nausea, rash or vomiting. Breast Pain Associated Symptoms: breast pain Current Outpatient Medications on File Prior to Visit Medication Sig Dispense Refill amLODIPine (Norvasc) 10 MG tablet Take 1 tablet (10 mg) by mouth in the morning. 100 tablet 3 anastrozole (Arimidex) 1 MG chemo tablet Take 1 mg by mouth Daily. aspirin 81 MG EC tablet Take 81 mg by mouth in the morning. atorvastatin (Lipitor) 80 MG tablet Take 1 tablet (80 mg) by mouth Daily 100 tablet 3 buPROPion XL (Wellbutrin XL) 150 MG 24 hr tablet Take 1 tablet (150 mg) by mouth in the morning. 100 tablet 3 carvedilol (Coreg) 12.5 MG tablet Take 1 tablet (12.5 mg) by mouth in the morning and 1 tablet (12.5 mg) before bedtime. 200 tablet 3 clopidogrel (Plavix) 75 MG tablet Take 1 tablet (75 mg) by mouth Daily 100 tablet 3 Droplet Pen Leary 31G X 6 MM mis USE DIRECTED TWICE A DAY empagliflozin (Jardiance) 10 MG Take 1 tablet (10 mg) by mouth Daily 90 tablet 2 gabapentin (Neurontin) 300 MG capsule Take 1 capsule (300 mg) by mouth at bedtime 90 capsule 3 Glucose Blood (Blood Glucose Test Strips 333) strip 1 strip by In Vitro route in the morning. 100 strip 3 insulin NPH-insulin regular (NovoLIN 70/30) (70-30) 100 UNIT/ML injection Inject 45 Units under the skin Daily with meals AND 60 Units in the evening. Take with meals. 100 mL 3 isosorbide mononitrate ER (Imdur) 30 MG 24 hr tablet take 1 tablet by mouth every morning 30 tablet 2 Lancets 28G [place] [facility] Lancet in the morning. 100 each 3 lisinopril 40 MG tablet Take 1 tablet (40 mg) by mouth Daily 100 tablet 3 metFORMIN XR (Glucophage-XR) 500 MG 24 hr tablet Take 1 tablet (500 mg) by mouth in the morning and 1 tablet (500 mg) before bedtime. 200 tablet 3 nitroglycerin (Nitrostat) 0.[address] 1 tablet by sublingual route. nystatin (Nyamyc) 425661 UNIT/GM powder apply to affected area twice a day if needed 60 g 2 OXcarbazepine (Trileptal) 300 MG tablet 1 1/2 tabs BID 90 tablet 5 pantoprazole (ProtoNix) 40 MG EC tablet Take 1 tablet (40 mg) by mouth in the morning and 1 tablet (40 mg) before bedtime. 200 tablet 3 RA Col-Rite 100 MG capsule Take 100 mg by mouth 2 (two) times a day as needed for constipation. spironolactone (Aldactone) 25 MG tablet Take 25 mg by mouth in the morning. [DISCONTINUED] Continuous Blood Gluc Sensor (FreeStyle Yesenia 2 Sensor) misc 1 Device every 14 (fourteen) days. 2 each 3 No current facility-administered medications on file prior to visit. I have reviewed and reconciled the history and medication list with the patient today. Allergies Allergen Reactions Diphenhydramine Other Reaction(s): Hives Social History Tobacco Use Smoking status: Never Smokeless tobacco: Never Vaping Use Vaping status: Never Used Substance Use Topics Alcohol use: Not Currently Comment: Caffeine Intake: soda/pop Drug use: Never Family History Problem Relation Name Age of Onset Colon cancer Mother Diabetes Mother Breast cancer Neg Hx Ovarian cancer Neg Hx Mental illness Neg Hx Alcohol abuse Neg Hx Drug abuse Neg Hx Past Medical History: Diagnosis Date CHF (congestive heart failure) ([facility]) Chicken pox CVA (cerebral vascular accident) ([facility]) Diabetic retinopathy ([facility]) DM (diabetes mellitus) ([facility]) Family history of cancer Gastric ulcer 11/2018 Heart disease Hemiplegia ([facility]) History of being hospitalized 11/2018 Upper GI Bleed, Gastric Ulcers History of being hospitalized 01/15/2022 Fall, Closed Head Injury, Hypertensive Urgency History of echocardiogram 11/14/2018 EF 60% History of invasive ductal carcinoma of breast Lt Breast Invasive Ductal Carcinoma (11/07/2021) ER/SD+ Her2 neg HTN (hypertension) (CMS/[facility]) Hyperlipidemia ([facility]) Kidney disease Measles Mild mitral regurgitation 11/14/2018 MAYTE (obstructive sleep apnea) Personal history of other medical treatment Left breast IDC ER/SD + Her 2 neg Rib fracture Left 8th Rib Fracture (2021) Tremor Past Surgical History: Procedure Laterality Date BREAST BIOPSY Left 11/07/2021 BREAST LUMPECTOMY 12/20/2021 Lt. lumpectomy w/sln bx SLN CARDIAC CATHETERIZATION 02/02/2017 HEART CATH WITH STENT PLACEMENT --PAD,LAD CARPAL TUNNEL RELEASE Bilateral 2022 R CTR 08/27/23 L CTR 09/10/23 JAB CATARACT EXTRACTION SECTION, CLASSIC CT ANGIO HEAD 04/29/[address] ANGIOGRAM NECK 04/29/2018 CT ANGIOGRAM NECK TONSILLECTOMY VASCULAR SURGERY Visit Vitals BP 126/70 Pulse 90 Ht 5' 2 Wt 211 lb SpO2 96% BMI 38.59 kg/m OB Status Unknown Smoking Status Never BSA 2.05 m Review of Systems Constitutional: Negative for chills, fatigue and fever. Respiratory: Negative for cough. Cardiovascular: Positive for chest pain. Gastrointestinal: Negative for abdominal pain, nausea and vomiting. Skin: Negative for rash. Objective Physical Exam Constitutional: General: She is not in acute distress. Appearance: Normal appearance. She is well-developed. HENT: Head: Normocephalic and atraumatic. Eyes: General: No scleral icterus. Conjunctiva/sclera: Conjunctivae normal. Cardiovascular: Rate and Rhythm: Normal rate and regular rhythm. Heart sounds: Normal heart sounds. No murmur heard. Pulmonary: Effort: Pulmonary effort is normal. No respiratory distress. Breath sounds: Normal breath sounds. No wheezing, rhonchi or rales. Skin: General: Skin is warm and dry. Neurological: General: No focal deficit present. Mental Status: She is alert and oriented to person, place, and time. Psychiatric: Mood and Affect: Mood normal. Behavior: Behavior normal. Office Visit on 06/11/2024 Component Date Value Ref Range Status Hemoglobin A1C 06/11/2024 7.1 Final Assessment/Plan Diagnoses and all orders for this visit: Type 2 diabetes mellitus with diabetic neuropathy, with long-term current use of insulin ([facility]) - POCT Glycated hemoglobin, total - Continuous Glucose Sensor (FreeStyle Yesenia 2 Sensor) misc; 1 Device every 14 (fourteen) days - Decrease PM dose of 70/30 to 55 units. AM dose unchanged. Morbid (severe) obesity due to excess calories (CMS/HCC) Essential (primary) hypertension (CMS/HCC) Body mass index (BMI) 38.0-38.9, adult Immunodeficiency due to conditions classified elsewhere (CMS/HCC) Malignant neoplasm of upper-outer quadrant of left female breast (CMS/HCC) Atherosclerotic heart disease of [place] coronary artery with unspecified angina pectoris (CMS/HCC) Follow up in about 2 months (around 08/11/2024) for Routine F/U, DM- A1C. documented in this encounter [facility] 11-19-2023 Note [facility] Cardiology Clinic Note Chief Complaint: Patient here [...] has a past medical history of Cancer ([facility]), Coronary artery disease, Diabetes mellitus (CMS/HCC), Gastrointestinal [...] 2. Equivocal Lexiscan stress test Patient Name: Kyle Powell [facility] [place] MR #: [id number] Physician: Jennifer Cormier, Department of M.D. Medicine Service Date: 09/06/2018 Division of Birthdate: 1955 Cardiology Room #: 3CD 372110 Adult Cardiovascular Services [place] [address] Cardiovascular Laboratory Report FINAL IMPRESSION: 1. Hemodynamically significant lesion in the previously placed stents with an FFR of 0.76. 2. Plain balloon angioplasty of the in-stent restenosis within the previously placed stents in the LAD and post POBA FFR of 0.92. 3. Hemodynamically insignificant lesion in the ci (more content not included)... [facility] History of Presen t illness Narrative Occupational Therapy Occupational Therapy Treatment Visit Patient Name: Kyle Powell Today's Date: 11/15/2023 Linked Episodes Type: Episode: Status: Noted: Resolved: Last update: Updated by: Occupational Therapy B CTR Active 11/07/2023 11/09/2023 3:16 PM Rsoeann Vicente OT Comments:Episode created from referral [id number] Visit number: 11/12 Supervised time:60 Total time:60 [...] for AROM x5, and yellow t-putty exercises pinch/pull/fresh food manager and red therabar exercises in supination/pronation 1x20 for wrist/ fresh food manager strengthening. Red digiflex for fresh food manager. Median nerve glides complete 1x5x10. Continue to [...] at discharge. documented in this encounter [facility] 11-09-2023 History of Presen t illness Narrative Occupational Therapy Occupational Therapy Evaluation Visit Patient Name: Kyle Powell Today's Date: 11/09/2023 Linked Episodes Type: Episode: Status: Noted: Resolved: Last update: Updated by: Occupational Therapy B CTR Active 11/07/2023 11/09/2023 2:59 PM Roseann Vicente OT Comments:Episode created from referral [id number] Visit number: 10/12 Subjective Interim History: 68 [...] are normal. General General additional comments: R fresh food manager strength: 20# LP: 5# L fresh food manager strength: 20# LP: 6# Treatment: Education: HEP [...] median nerve distribution complete. HEP established for fresh food manager strengthening/ forearm stretches. Written handout provided. Pt and spouse in agreement to POC. Assessment/Plan Short Term Goals: Pt will be independent with home exercise program for fresh food manager strengthening at discharge. Slack Line Yarder Goals: PRWHE Pain Score 25< 50 ( IE: 47/50) PRWHE Functional Score 20 < 100 ( IE: 78/100) Pt to increase fresh food manager strength by 10# and LP by 2# pain free at discharge. ( IE: B 20# LP: R 5# L6#) Pt will be able to use B UE in light daily activities. Pt will benefit from skilled OT to address the above impairments for 2x/week for 4-6 weeks. I hereby deem this POC medically necessary. Please sign below. Date: documented in this encounter [facility] 11-06-2023 History of Presen t illness Narrative Images from the original note [...] Oral, Daily Continuous Blood Gluc Sensor (FreeStyle Yesenia 2 Sensor) misc 1 Device, Does not apply, Every 14 days Droplet Pen Leary 31G X 6 MM misc USE DIRECTED [...] Place 1 tablet by sublingual route. Nyamyc 433018 UNIT/GM powder Nyamyc 100,000 unit/gram topical powder apply to affected area topically twice a day OXcarbazepine (Trileptal) 300 MG tablet 1/2 tab AM 1 tab PM, january [...] will start her in occupational therapy at [facility] in [place]. Prescription for Gabapentin was provided to take [...] Anton D.O. documented in this encounter [facility] 12-02-2022 Evaluation note Encounter Date Diagnosis Assessment [...] to nail, initial encounter (ICD-10 - S61.258A) Dymant Other 02-06-2023 NoteCARDIAC STRESS TEST Requesting Physician: Procedure Date:11/06/2022 This was a Lexiscan Stress Test with myocardial perfusion imaging performed at the [facility]. Informed consent was obtained, an [...] perfusion images will be reported separately. [id number] Progress note Author Ariel Monte [facility] March 22, 2022 10:19am Note Date/Time March 21, 2022 1:20 pm [facility] [place] [address] Rad Onc Follow Up Note - OP Signed Patient: Kyle Powell MR#: [id number] : 1955 Acct:[id number] Age/Sex: 66 / F Type: REG RCR Copies to: MD Faraz Hartman II, MD Fredric Itzkowitz, DO~ Assessment & Plan (1) Carcinoma of upper-outer quadrant of left breast in female, estrogen receptor positive Plan: RTC PRN Assessment Ms. Powell is a 66-year-old female with stage I pT1b N0 invasive ductal carcinoma of the upper outer quadrant of the left breast, ER/SD positive HER2 negative. Tumor was grade 2, [...] of anti inflammatories with her PCP or Emergency Medicine Specialist as these would like provide more relief. [...] history: October 13, 2021 screening mammogram at [facility] showed no abnormalities of the right breast but the left breast was concerning for a 1.2 spiculated nodule in the left upper outer quadrant. Spot compression mammogram and ultrasound confirmed an irregular hypoechoic mass in the 2 o'clock position measuring 8 mm in size. November 08, 2021 ultrasound-guided breast biopsy confirmed invasive ductal carcinoma, provisional grade 2 3, ER/SD positive HER2 equivocal by IHC, negativeby FISH. [...] signed by Ariel Monte MD> 03/22/22 [address] [facility] Work Phone: 1(537) 844-886405-23-2022 Progress note Author [facility] February 20, 2022 4:08pm Note Date/Time February 20, 2022 2:15p [facility] [place] [address] Hem/Onc Follow Up Note - OP Signed Patient: Kyle Powell MR#: [id number] : 1955 Acct:[id number] Age/Sex: 66 / F Type: REG RCR [...] - we will request records from her spot sprayer at [place] - Dr. Garrett Mcdonald. Clinically, she is [...] discussed results of her pathology showing T1b D2tpduf I breast cancer. Since she has less [...] was sent for screening mammogram 10/13/2021 at [facility] showing no abnormalities of the right breast, but left breast showed a new 1.2 x 0.9cm spiculated nodule of left upper outer quadrant mid-breast. Subsequent spot compression mammogram and ultrasound showed an irregular hypoechoic mass in 2 o'clock position 10.7cm from nipple, [id number]. Ultrasound guided biopsy performed at [place] 11/08/21 confirmed diagnosis of invasive ductal carcinoma, provisional grade 2-3, ER >95% positive, SD >95% positive, Her2 equivocal by IHC, negative [...] ductal carcinoma, provisional grade 2-3, ER >95%, SD >95%, Her2 neg --12/20/2021: Left breast lumpectomy with left axillary sentinel lymph node: Invasive ductal carcinoma, Willard grade 2, tumor size 0.9 x 0.9 x 0.8 cm with margins negative. ER +95%, SD +95%, HER-2/diomedes negative IHC 1+, pT1b (sn)pN0 Mx 2. Right mastodynia x 1 month (no lesion right mammogram) 3. Coronary artery disease (multiple prior NM) 4. Cerebral vascular disease (multiple prior strokes, [...] Negative for environmental allergies and food allergies. [facility] - Medical History Medical History: Medical History [...] 5 Days #20 tab 12/20/21 [Rx Confirmed 04/14/22] ibuprofen 600 mg tablet 600 mg PO [...] T1b, N0 Left breast invasive ductal carcinoma, Michie grade 2-3, ER >95% positive, SD >95% positive, Her2 1+ IHC, negative. (1) [...] carcinoma, provisional grade 2-3, ER >95% positive, SD >95% positive, Her2 equivocal by IHC, negative by FISH (HER/CEP17 1.4, copy number 3.33). This lesion is nonpalpable, less than 2 cm, and due to strong hormone positive, HER2 negative disease she is not a candidatefor neoadjuvant chemotherapy. She already has a surgical date in November [address] Hemphill--lumpectomy revealed T1b N0 MX Michie grade 2 breast cancer with size 0.9 cm. 01/12/2022: She returns for followup to discuss pathology of resection specimen and adjuvant therapy options. We decided against Oncotype DX due to size less than 1 cm, strongly ER/SD positive, HER-2 negative disease, and her comorbidities. [...] PCP: Patient reports having seen cardiology at [facility] approximately 3 weeks ago with [...] for coordination of care (as documented) and bomf-fd-[id number] counseling of patient and/or family. Dictated By: Lisa Orozco APRN DD/ [id number] Signed By: <Electronically signed by IVELISSE Orozco> 02/20/22 [address] [facility] Work Phone: [phone]) 412-776204-20-2022 Consult note Author Ariel Monte [facility] January 18, 2022 4:10pm Note Date/Time January 18, 2022 1:5 9pm [facility] [place] [address] Rad Onc Consult Note - OP Signed Patient: Kyle Powell MR#: [id number] : 1955 Acct:[id number] Age/Sex: 66 / F Type: REG RCR [...] upper outer quadrant of the left breast, ER/SD positive HER2 negative. We reviewed her pathology [...] history: October 13, 2021 screening mammogram at [facility] showed no abnormalities of the right breast but the left breast was concerning for a 1.2 spiculated nodule in the left upper outer quadrant. Spot compression mammogram and ultrasound confirmed an irregular hypoechoic mass in the 2 o'clock position measuring 8 mm in size. November 08, 2021 ultrasound-guided breast biopsy confirmed invasive ductal carcinoma, provisional grade 2 3, ER/SD positive HER2 equivocal by IHC, negativeby FISH. [...] No issues with mobility of the arm. [facility] - Medical History Medical History: Medical History [...] signed by Ariel Monte MD> 01/18/22 [address] [facility] Work Phone: 1(635) 773-729604-15-2022 Progress note Author Karoline Farmer [facility] January 13, 2022 1:05pm Note Date/Time January 12, 2022 1:0 9pm [facility] at [address] [address] Hem/Onc Follow Up Note - OP Signed Patient: Kyle Powell MR#: [id number] : 1955 Acct:[id number] Age/Sex: 66 / F Type: REG RCR [...] discussed results of her pathology showing T1b T3vpejo I breast cancer. Since she has less [...] was sent for screening mammogram 10/13/2021 at [facility] showing no abnormalities of the right breast, but left breast showed a new 1.2 x 0.9cm spiculated nodule of left upper outer quadrant mid-breast. Subsequent spot compression mammogram and ultrasound showed an irregular hypoechoic mass in 2 o'clock position 10.7cm from nipple, [id number]. Ultrasound guided biopsy performed at [place] 11/08/21 confirmed diagnosis of invasive ductal carcinoma, provisional grade 2-3, ER >95% positive, SD >95% positive, Her2 equivocal by IHC, negative [...] ductal carcinoma, provisional grade 2-3, ER >95%, SD >95%, Her2 neg --12/20/2021: Left breast lumpectomy with left axillary sentinel lymph node: Invasive ductal carcinoma, Michie grade 2, tumor size 0.9 x 0.9 x 0.8 cm with margins negative. ER +95%, SD +95%, HER-2/diomedes negative IHC 1+, pT1b (sn)pN0 Mx 2. Right mastodynia x 1 month (no lesion right mammogram) 3. Coronary artery disease (multiple prior NM) 4. Cerebral vascular disease (multiple prior strokes, no residual deficits) 5. Prior history of shingles (VZV) and prior Shingrix vaccine - Summary of Therapies Summary of Therapies: 1. 12/20/2021: Left breast lumpectomy with left axillary sentinel lymph node 2. Met with radiation oncology for adjuvant radiation therapy discussion 3. Prescription to start aromatase inhibitor therapy with anastrozole 1 mg daily and follow-up with [facility]. This may commence following radiation therapy. ROS [...] function - Impressions Screening mammogram 10/13/2021 at [facility] showing no abnormalities of the right breast, but left breast showed a new 1.2 x 0.9cm spiculated nodule of left upper outer quadrant mid-breast. Subsequent spot compression mammogram and ultrasound showed an irregular hypoechoic mass in 2 o'clock position 10.7cm from nipple, [id number]. Assessment and Plan - TNM Staging Staging: Prognostic stage Ia, pathologic stage I T1b, N0 Left breast invasive ductal carcinoma, Michie grade 2-3, ER >95% positive, SD >95% positive, Her2 1+ IHC, negative. (1) [...] carcinoma, provisional grade 2-3, ER >95% positive, SD >95% positive, Her2 equivocal by IHC, negative [...] to size less than 1 cm, strongly ER/SD positive, HER-2 negative disease, and her comorbidities. [...] for coordination of care (as documented) and iqip-an-cedy counseling of patient and/or family. Dictated By: Karoline Farmer MD DD/ 07 Signed By: <Electronically signed by MD Karoline Farmer> 01/13/22 [address] [facility] Work Phone: [phone]) 551-401904-15-2022 Progress note Author Karoline Farmer [facility] January 13, 2022 1:05pm Note Date/Time January 12, 2022 1:0 9pm [facility] [place] [address] Hem/Onc Follow Up Note - OP Signed Patient: Kyle Powell MR#: [id number] : 1955 Acct:[id number] Age/Sex: 66 / F Type: REG RCR [...] discussed results of her pathology showing T1b T8xdjlp I breast cancer. Since she has less [...] was sent for screening mammogram 10/13/2021 at [facility] showing no abnormalities of the right breast, but left breast showed a new 1.2 x 0.9cm spiculated nodule of left upper outer quadrant mid-breast. Subsequent spot compression mammogram and ultrasound showed an irregular hypoechoic mass in 2 o'clock position 10.7cm from nipple, [id number]. Ultrasound guided biopsy performed at [place] 11/08/21 confirmed diagnosis of invasive ductal carcinoma, provisional grade 2-3, ER >95% positive, SD >95% positive, Her2 equivocal by IHC, negative [...] ductal carcinoma, provisional grade 2-3, ER >95%, SD >95%, Her2 neg --12/20/2021: Left breast lumpectomy with left axillary sentinel lymph node: Invasive ductal carcinoma, Michie grade 2, tumor size 0.9 x 0.9 x 0.8 cm with margins negative. ER +95%, SD +95%, HER-2/diomedes negative IHC 1+, pT1b (sn)pN0 Mx 2. Right mastodynia x 1 month (no lesion right mammogram) 3. Coronary artery disease (multiple prior NM) 4. Cerebral vascular disease (multiple prior strokes, no residual deficits) 5. Prior history of shingles (VZV) and prior Shingrix vaccine - Summary of Therapies Summary of Therapies: 1. 12/20/2021: Left breast lumpectomy with left axillary sentinel lymph node 2. Met with radiation oncology for adjuvant radiation therapy discussion 3. Prescription to start aromatase inhibitor therapy with anastrozole 1 mg daily and follow-up with [facility]. This may commence following radiation therapy. ROS [...] Negative for environmental allergies and food allergies. [facility] - History Attestation statement: The following information [...] function - Impressions Screening mammogram 10/13/2021 at [facility] showing no abnormalities of the right breast, but left breast showed a new 1.2 x 0.9cm spiculated nodule of left upper outer quadrant mid-breast. Subsequent spot compression mammogram and ultrasound showed an irregular hypoechoic mass in 2 o'clock position 10.7cm from nipple, [id number]. Assessment and Plan - TNM Staging Staging: Prognostic stage Ia, pathologic stage I T1b, N0 Left breast invasive ductal carcinoma, Willard grade 2-3, ER >95% positive, SD >95% positive, Her2 1+ IHC, negative. (1) [...] carcinoma, provisional grade 2-3, ER >95% positive, SD >95% positive, Her2 equivocal by IHC, negative [...] to size less than 1 cm, strongly ER/SD positive, HER-2 negative disease, and her comorbidities. [...] for coordination of care (as documented) and rict-fk-bfcj counseling of patient and/or family. Dictated By: Karoline Farmer MD DD/ 130 Signed By: <Electronically signed by MD Karoline Farmer> 01/13/22 [address] [facility] Work Phone: [phone]) 308-782602-25-2022 Consult note Author Karoline Farmer [facility] November 25, 2021 8:58pm Note Date/Time November 25, 2021 11:32am [facility] [place] [address] Hem/Onc Consult Note - OP Signed Patient: Kyle Powell MR#: [id number] : 1955 Acct:[id number] Age/Sex: 66 / F Type: REG RCR Copies to: MD Jac Springer II, DO~ HPI Date/Time of Service: Date of Service: 11/25/2021 Time of Service: 11:31 Referring Provider/PCP: Referring Provider: Faraz Osman II, MD PCP: Faraz Osman II, MD - History of Present Illness Reason for Consultation: Patient was found to have abnormal screening mammography with biopsy at [facility] for invasive ductal carcinoma. Referred to both general surgery who she saw yesterday and me to discuss appropriate management. Tumor appears to be8 x 7 x 7 mm on ultrasound at the 2 o'clock position. ER positive, SD positive,HER-2 negative by FISH, provisional grade 2-3. [...] was sent for screening mammogram 10/13/2021 at [facility] showing no abnormalities of the right breast, butleft breast showed a new 1.2 x 0.9cm spiculated nodule of left upper outer quadrant mid-breast. Subsequent spot compression mammogram and ultrasound showed an irregular hypoechoic mass in 2 o'clock position 10.7cm from nipple, [id number]. Ultrasound guided biopsy performed at [place] 11/08/21 confirmed diagnosis of invasive ductal carcinoma, provisional grade 2-3, ER >95% positive,SD >95% positive, Her2 equivocal by IHC, negative [...] operative to review recommendations for adjuvant therapy. [facility] - History Attestation statement: The following information [...] ductal carcinoma, provisional grade 2-3, ER >95%, SD >95%, Her2 neg 2. Right mastodynia x 1 month (no lesion right mammogram) 3. Coronary artery disease (multiple prior NM) 4. Cerebral vascular disease (multiple prior strokes, [...] review. - Impressions Screening mammogram 10/13/2021 at [facility] showing no abnormalities of the right breast, but left breast showed a new 1.2 x 0.9cm spiculated nodule of left upper outer quadrant mid-breast. Subsequent spot compression mammogram and ultrasound showed an irregular hypoechoic mass in 2 o'clock position 10.7cm from nipple, [id number]. Assessment and Plan - TNM Staging Staging: Clinical stage I T1c, N0 Left breast invasive ductal carcinoma, provisional grade 2-3, ER >95% positive, SD >95% positive, Her2 equivocal by IHC, negative [...] carcinoma, provisional grade 2-3, ER >95% positive, SD >95% positive, Her2 equivocal by IHC, negative [...] for coordination of care (as documented) and kerz-mi-afts counseling of patient and/or family. Dictated By: Karoline Farmer MD DD/ 1131 Signed By: <Electronically signed by MD Karoline Farmer> 11/25/212057 [facility] Work Phone: Evaluation + Plan note No data available for this section [facility] Diagnosis Onset Date Resolution Status [id number] acute Mastodynia of right breast a cute Coronary artery disease real estate attorney génesis History of stroke chronic Hypertension chronic [facility] Work Phone: Evaluation note* Diagnosis Onset Date Resolution Status [id number] acute Encounter for monitoring aromatase inhibitor therapy acute Coronary artery disease real estate attorney génesis History of stroke chronic Hypertension chronic Mastodynia of right breast r esolved [facility] Work Phone: Evaluation noteNo assessment information available [facility] Work Phone: Evaluation note* Diagnosis Bilateral carpal tunnel syndrome- Primary Carpal tunnel syndrome documented in this encounter [facility]Evaluation [facility]* Diagnosis Carpal tunnel syndrome, bilateral- Primary Carpal tunnel syndrome Bilateral carpal tunnel syndrome Carpal tunnel syndrome Hand weakness Muscle weakness (generalized) documented in this encounter [facility] HealthcareEvaluation note* Diagnosis Carpal tunnel syndrome, bilateral- Primary Carpal tunnel syndrome Hand weakness Muscle weakness (generalized) documented in this encounter [facility] HealthcareEvaluation note* Diagnosis Neurogenic pain Cerebral artery occlusion with cerebral infarction (CMS/HCC) Unspecified cerebral artery occlusion with cerebral infarction Stroke, lacunar (CMS/HCC) Unspecified cerebral artery occlusion with cerebral infarction Carotid stenosis, bilateral Occlusion and stenosis of carotid artery without mention of cerebral infarction Transient neurological symptoms- Primary Carpal tunnel syndrome, bilateral Carpal tunnel syndrome Aneurysm, ophthalmic artery Cerebral aneurysm, nonruptured Neurogenic pain MAYTE (obstructive sleep apnea) Obstructive sleep apnea (adult) (pediatric) Vitamin B6 deficiency Impacted cerumen of left ear- Primary Impacted cerumen [facility] Diagnosis Neurogenic pain Cerebral artery occlusion with cerebral infarction (CMS/HCC) Unspecified cerebral artery occlusion with cerebral infarction Stroke, lacunar (CMS/HCC) Unspecified cerebral artery occlusion with cerebral infarction Carotid stenosis, bilateral Occlusion and stenosis of carotid artery without mention of cerebral infarction Transient neurological symptoms- Primary Carpal tunnel syndrome, bilateral Carpal tunnel syndrome Aneurysm, ophthalmic artery Cerebral aneurysm, nonruptured Neurogenic pain MAYTE (obstructive sleep apnea) Obstructive sleep apnea (adult) (pediatric) Vitamin B6 deficiency Dermatitis- Primary Contact dermatitis and other eczema, due to unspecified cause Balance disorder Frequent falls [facility]* Diagnosis Neurogenic pain Cerebral artery occlusion with cerebral infarction (CMS/HCC) Unspecified cerebral artery occlusion with cerebral infarction Stroke, lacunar (CMS/HCC) Unspecified cerebral artery occlusion with cerebral infarction Carotid stenosis, bilateral Occlusion and stenosis of carotid artery without mention of cerebral infarction Transient neurological symptoms- Primary Carpal tunnel syndrome, bilateral Carpal tunnel syndrome Aneurysm, ophthalmic artery Cerebral aneurysm, nonruptured Neurogenic pain MAYTE (obstructive sleep apnea) Obstructive sleep apnea (adult) (pediatric) Vitamin B6 deficiency Balance disorder- Primary Frequent falls documented [facility]* Diagnosis Neurogenic pain Cerebral artery occlusion with cerebral infarction (CMS/HCC) Unspecified cerebral artery occlusion with cerebral infarction Stroke, lacunar (CMS/HCC) Unspecified cerebral artery occlusion with cerebral infarction Carotid stenosis, bilateral Occlusion and stenosis of carotid artery without mention of cerebral infarction Transient neurological symptoms- Primary Carpal tunnel syndrome, bilateral Carpal tunnel syndrome Aneurysm, ophthalmic artery Cerebral aneurysm, nonruptured Neurogenic pain MAYTE (obstructive sleep apnea) Obstructive sleep apnea (adult) (pediatric) Vitamin B6 deficiency Balance disorder- Primary Frequent falls documented [facility]* Diagnosis Neurogenic pain Cerebral artery occlusion with cerebral infarction (CMS/HCC) Unspecified cerebral artery occlusion with cerebral infarction Stroke, lacunar (CMS/HCC) Unspecified cerebral artery occlusion with cerebral infarction Carotid stenosis, bilateral Occlusion and stenosis of carotid artery without mention of cerebral infarction Transient neurological symptoms- Primary Carpal tunnel syndrome, bilateral Carpal tunnel syndrome Aneurysm, ophthalmic artery Cerebral aneurysm, nonruptured Neurogenic pain MAYTE (obstructive sleep apnea) Obstructive sleep apnea (adult) (pediatric) Vitamin B6 deficiency General weakness- Primary Other malaise and fatigue Type 2 diabetes mellitus with diabetic neuropathy, with long-term current use of insulin (CMS/HCC) 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 History of stroke Transient ischemic attack (TIA), and cerebral infarction without residual deficits [facility]* Diagnosis Neurogenic pain Cerebral artery occlusion with cerebral infarction (CMS/HCC) Unspecified cerebral artery occlusion with cerebral infarction Stroke, lacunar (CMS/HCC) Unspecified cerebral artery occlusion with cerebral infarction Carotid stenosis, bilateral Occlusion and stenosis of carotid artery without mention of cerebral infarction Transient neurological symptoms- Primary Carpal tunnel syndrome, bilateral Carpal tunnel syndrome Aneurysm, ophthalmic artery Cerebral aneurysm, nonruptured Neurogenic pain MAYTE (obstructive sleep apnea) Obstructive sleep apnea (adult) (pediatric) Vitamin B6 deficiency Balance disorder- Primary Frequent falls documented in [facility]* Diagnosis Neurogenic pain Cerebral artery occlusion with cerebral infarction (CMS/HCC) Unspecified cerebral artery occlusion with cerebral infarction Stroke, lacunar ([facility]/HCC) Unspecified cerebral artery occlusion with cerebral infarction Carotid stenosis, bilateral Occlusion and stenosis of carotid artery without mention of cerebral infarction Transient neurological symptoms- Primary Carpal tunnel syndrome, bilateral Carpal tunnel syndrome Aneurysm, ophthalmic artery Cerebral aneurysm, nonruptured Neurogenic pain MAYTE (obstructive sleep apnea) Obstructive sleep apnea (adult) (pediatric) Vitamin B6 deficiency Balance disorder- Primary Frequent falls documented [facility] encounter [facility]* Diagnosis Neurogenic pain Cerebral artery occlusion with cerebral infarction ([facility]/HCC) Unspecified cerebral artery occlusion with cerebral infarction Stroke, lacunar ([facility]) Unspecified cerebral artery occlusion with cerebral infarction Carotid stenosis, bilateral Occlusion and stenosis of carotid artery without mention of cerebral infarction Transient neurological symptoms- Primary Carpal tunnel syndrome, bilateral Carpal tunnel syndrome Aneurysm, ophthalmic artery Cerebral aneurysm, nonruptured Neurogenic pain MAYTE (obstructive sleep apnea) Obstructive sleep apnea (adult) (pediatric) Vitamin B6 deficiency Balance disorder- Primary Frequent falls documented in [facility] encounter [facility]* Diagnosis Neurogenic pain Cerebral artery occlusion with cerebral infarction ([facility]/HCC) Unspecified cerebral artery occlusion with cerebral infarction Stroke, lacunar ([facility]) Unspecified cerebral artery occlusion with cerebral infarction Carotid stenosis, bilateral Occlusion and stenosis of carotid artery without mention of cerebral infarction Transient neurological symptoms- Primary Carpal tunnel syndrome, bilateral Carpal tunnel syndrome Aneurysm, ophthalmic artery Cerebral aneurysm, nonruptured Neurogenic pain MAYTE (obstructive sleep apnea) Obstructive sleep apnea (adult) (pediatric) Vitamin B6 deficiency Balance disorder- Primary Frequent falls documented [facility]* Diagnosis Type 2 diabetes mellitus with diabetic neuropathy, with long-term current use of insulin ([facility]) Morbid (severe) obesity due to excess calories ([facility]) Essential (primary) hypertension ([facility]) Unspecified essential hypertension Body mass index (BMI) 38.0-38.9, adult Immunodeficiency due to conditions classified elsewhere ([facility]) Malignant neoplasm of upper-outer quadrant of left female breast (CMS/HCC) Atherosclerotic heart disease of [place] coronary artery with unspecified angina pectoris (CMS/HCC) documented in [facility] encounter [facility]* Diagnosis Neurogenic pain Cerebral artery occlusion with cerebral infarction (CMS/HCC) Unspecified cerebral artery occlusion with cerebral infarction Stroke, lacunar (CMS/HCC) Unspecified cerebral artery occlusion with cerebral infarction Carotid stenosis, bilateral Occlusion and stenosis of carotid artery without mention of cerebral infarction Transient neurological symptoms- Primary Carpal tunnel syndrome, bilateral Carpal tunnel syndrome Aneurysm, ophthalmic artery Cerebral aneurysm, nonruptured Neurogenic pain MAYTE (obstructive sleep apnea) Obstructive sleep apnea (adult) (pediatric) Vitamin B6 deficiency Balance disorder- Primary Frequent falls documented in this encounter [facility]* Diagnosis Neurogenic pain Cerebral artery occlusion with cerebral infarction (CMS/HCC) Unspecified cerebral artery occlusion with cerebral infarction Stroke, lacunar (CMS/HCC) Unspecified cerebral artery occlusion with cerebral infarction Carotid stenosis, bilateral Occlusion and stenosis of carotid artery without mention of cerebral infarction Transient neurological symptoms- Primary Carpal tunnel syndrome, bilateral Carpal tunnel syndrome Aneurysm, ophthalmic artery Cerebral aneurysm, nonruptured Neurogenic pain MAYTE (obstructive sleep apnea) Obstructive sleep apnea (adult) (pediatric) Vitamin B6 deficiency Routine general medical examination at health care facility- Primary Routine general medical examination at a health care facility ACP (advance care planning) Other specified counseling Flu vaccine need Type 2 diabetes mellitus with diabetic neuropathy, with long-term current use of insulin ([facility]) Estrogen deficiency Other ovarian failure Breast screening Breast screening, unspecified documented in this encounter [facility]* Diagnosis Neurogenic pain Cerebral artery occlusion with cerebral infarction (CMS/HCC) Unspecified cerebral artery occlusion with cerebral infarction Stroke, lacunar (CMS/HCC) Unspecified cerebral artery occlusion with cerebral infarction Carotid stenosis, bilateral Occlusion and stenosis of carotid artery without mention of cerebral infarction Transient neurological symptoms- Primary Carpal tunnel syndrome, bilateral Carpal tunnel syndrome Aneurysm, ophthalmic artery Cerebral aneurysm, nonruptured Neurogenic pain MAYTE (obstructive sleep apnea) Obstructive sleep apnea (adult) (pediatric) Vitamin B6 deficiency Balance disorder- Primary Frequent falls documented in this encounter [facility]* Diagnosis Neurogenic pain Cerebral artery occlusion with cerebral infarction (CMS/HCC) Unspecified cerebral artery occlusion with cerebral infarction Stroke, lacunar (CMS/HCC) Unspecified cerebral artery occlusion with cerebral infarction Carotid stenosis, bilateral Occlusion and stenosis of carotid artery without mention of cerebral infarction Transient neurological symptoms- Primary Carpal tunnel syndrome, bilateral Carpal tunnel syndrome Aneurysm, ophthalmic artery Cerebral aneurysm, nonruptured Neurogenic pain MAYTE (obstructive sleep apnea) Obstructive sleep apnea (adult) (pediatric) Vitamin B6 deficiency Candidiasis of skin Candidiasis of skin and nails Spinal stenosis of lumbar region, unspecified whether neurogenic claudication present Lumbar radiculopathy Thoracic or lumbosacral neuritis or radiculitis, unspecified [facility] Narrative - Reported* Type Description Date Medical History HTN Medical History hyperlipidemia Medical History DM II Medical History Congestive Heart Failure Medical History stroke Medical History heart attack Medical History CAD with stents Surgical History cardiac stents Surgical History lumpectomy left breast Surgical History coccyx removal Surgical History tonsillectomy Surgical History [facility] Other Hospital Discharge instructions No data available for this section [facility] No data available for this section [facility] (narrative)* Consultation (Routine) - Authorized Specialty Diagnoses / Procedures Referred By Emely mack Referred To Contact Occupational Therapy / Physical Therapy Diagnoses Bilateral carpal tunnel syndrome Procedures SD OFFICE/OUTPATIENT NEW HIGH MDM 60 MINUTES Jerson Anton DO [address] [place] [address] Roseann Vicente, OT [address] [place] [address] Referral ID Status Reason Start Date Expiration Date Visits Requested Visits Authorized [id number] Authorized Consult and Treat 11/06/2023 05/04/2024 1 1 [facility] for visit Narrative* Consultation (Routine) - Authorized Specialty Diagnoses / Procedures Referred By Emely mack Referred To Contact Occupational Therapy / Physical Therapy Diagnoses Bilateral carpal tunnel syndrome Procedures SD OFFICE/OUTPATIENT NEW HIGH MDM 60 MINUTES Jerson Anton DO [address] [place] [address] Roseann Vicente, OT [address] [place] [address] Referral ID Status Reason Start Date Expiration Date Visits Requested Visits Authorized [id number] Authorized Consult and Treat 11/06/2023 05/04/2024 99 99 [facility] Narrative* Rehabilitation - Outpatient (Routine) - Authorized Specialty Diagnoses / Procedures Referred By Contac t Referred To Contact Physical Therapy Diagnoses Balance disorder Frequent falls Procedures SD OFFICE/OUTPATIENT NEW HIGH [facility] 60 MINUTES Christy Baez PA [address] [facility] [address] [place] [address] Phone: tel: fax: Mary Ramsay PT Referral ID Status Reason Start Date Expiration Date Visits Requested Visits Authorized [id number] Authorized Specialty Services Required 02/07/2025 99 99 [facility] Narrative* Rehabilitation - Outpatient (Routine) - Authorized Specialty Diagnoses / Procedures Referred By Contac t Referred To Contact Physical Therapy Diagnoses Balance disorder Frequent falls Procedures SD OFFICE/OUTPATIENT NEW [facility] 60 MINUTES Christy Baez PA [address] [facility] [address] [place] [address] Phone: tel: fax: Mary Ramsay PT Referral ID Status Reason Start Date Expiration Date Visits Requested Visits Authorized [id number] Authorized Specialty Services Required 09/30/2024 99 99 [facility] Summary Purpose Family History Relationship Condition Age at Onset Recorded Date/T suresh Not Specified Diabetes mellitus Unknown Presence of cardiac pacemaker Unknown Not Specified Malignant neoplasm of colon Unknown grandparent Malignant neoplasm of skin Unknown grandparent Malignant neoplasm of kidney Unknown family member Presence of implanta ble cardioverter-defibrillator (ICD) Unknown Advance Directives Advance Directive Response Recorded Date/ Time Advance Directives No November 3:51pm Hospital Course Note MR#: [id number] [facility] Pt. Name: Kyle Powell Admitted: 04/28/2018 Discharged: [...] This is a 62-year-old female, admitted to [facility], who was transferred from [place] with hypertension emergency/urgency. She was complaining of dizziness and tongue numbness on presentation. CT scan of brain revealed hypoattenuation, bilateral basal ganglia and right thalamus. Stroke team was consulted. No tPA was given. MR (more content not included)... Note MR#: [id number] I [facility] Pt. Name: Kyle Powell Admitted: 09/05/2018 Discharged: 09/07/2018 Date of : 1955 Physician: Jonah Sanabria MD DISCHARGE SUMMARY PRINCIPAL DIAGNOSES: 1. Coronary artery disease of [place] artery of [place] heart with stable angina. 2. Essential hypertension. [...] procedure and decided to transfer here to [facility] for cardiac cath. She had a cardiac cath here. In 01/2017, she had severe ostial stenosis of the posterior descending branch of the right coronary artery and had a balloon angioplasty with a Synergy drug-eluting stent. She has been doing well since (more content not included)... Note MR#: [id number] I [facility] Pt. Name: Kyle Powell Admitted: 11/13/2018 [...] evalua (more content not included)... Note MR#: [id number] [facility] Pt. Name: Kyle Powell Surgery Date: 11/15/2018 Room #: [id number] Date of : 1955 PROCEDURE NOTE ATTENDING: Temitope Oscar M.D. PROCEDURE EGD with gastric biopsies. TECHNICAL RESEARCH SCIENTIST: Inocencio Rivera M.D. INDICATION FOR PROCEDURE: A [...] medication given. The patient was connected to [facility] (more content not included)... Procedure Findings Note MR#: [id number] [facility] Pt. Name: Kyle Powell Surgery Date: 11/15/2018 Room #: [id number] Date of : 1955 PROCEDURE NOTE ATTENDING: Temitope Oscar M.D. PROCEDURE EGD with gastric biopsies. TECHNICAL RESEARCH SCIENTIST: Inocencio Rivera M.D. INDICATION FOR PROCEDURE: A [...] medication given. The patient was connected to [facility] (more content not included)... Chief Complaint and Reason for Visit Chief Complaint DCIS Left Breast Left Breast Cancer Left Breast Cancer Left Breast Cancer Reason for Visit [id number] Mastodynia of right breast Coronary artery disease History of stroke Hypertension Chief Complaint Left Breast Cancer Left Breast Cancer Left Breast Cancer DCIS Left Breast Reason for Visit [id number] Mastodynia of right breast Coronary artery disease History of stroke Hypertension Chief Complaint Left Breast Cancer Left Breast Cancer Left Breast Cancer DCIS Left Breast Reason for Visit [id number] Encounter for monitoring aromatase inhibitor therapy Coronary artery disease History of stroke Hypertension Mastodynia of right breast Chief Complaint DCIS Left Breast Reason for Visit [id number] Encounter for monitoring aromatase inhibitor therapy Coronary artery disease History of stroke Hypertension Mastodynia of right breast Additional Source Comments INFORMATION SOURCE (unrecogn ized section and content) DATE CREATED AUTHOR 03/25/2018 [facility] DATE CREATED AUTHOR AUTHOR'S ORGANIZ ATION 12/11/2018 [facility] DATE CREATED AUTHOR AUTHOR'S ORGANIZ ATION 02/14/2023 [facility] DATE CREATED AUTHOR AUTHOR'S ORGANIZ ATION 04/14/2023 [facility] DATE CREATED AUTHOR AUTHOR'S ORGANIZ ATION 02/19/2024 [facility] DATE CREATED AUTHOR AUTHOR'S ORGANIZ ATION 03/11/[address] [facility] DATE CREATED AUTHOR AUTHOR'S ORGANIZ ATION 09/13/2024 [facility] DATE CREATED AUTHOR AUTHOR'S ORGANIZ ATION 09/30/2024 [facility] d[facility] Specialists [facility] Care Teams (unrecognized sec tion and content) [...] Osman II MD Primary Care Provider Active Propellant Assembler Relationship Specialty Start Date End Date Faraz Osman MD [address] [place] [address] PCP - General Internal Medicine 02/20/23 Propellant Assembler Relationship Specialty Start Date End Date Faraz Osman MD [address] [place] [address] PCP - General Internal Medicine 02/20/23 Propellant Assembler Relationship Specialty Start Date End Date Faraz Osman MD [address] [place] [address] PCP - General Internal Medicine 02/20/23 Propellant Assembler Relationship Specialty Start Date End Date Faraz Osman MD [address] [place] [address] PCP - General Internal Medicine 02/20/23 Propellant Assembler Relationship Specialty Start Date End Date Faraz Osman MD [address] [place] [address] PCP - General Internal Medicine 02/20/23 Propellant Assembler Relationship Specialty Start Date End Date Faraz Osman MD [address] [place] [address] PCP - General Internal Medicine 02/20/23 Faraz Osman MD [address] [place] [address] PCP - [employer] 01/30/24 Propellant Assembler Relationship Specialty Start Date End Date Faraz Osman MD [address] [place] [address] PCP - General Internal Medicine 02/20/23 Faraz Osman MD [address] [place] [address] PCP - [employer] 01/30/24 Propellant Assembler Relationship Specialty Start Date End Date Faraz Osman MD [address] [place] [address] PCP - General Internal Medicine 02/20/23 Faraz Osman MD [address] [place] [address] PCP - [employer] 01/30/24 Propellant Assembler Relationship Specialty Start Date End Date Faraz Osman MD [address] [place] [address] PCP - General Internal Medicine 02/20/23 Faraz Osman MD [address] [place] [address] PCP - [employer] 01/30/24 Propellant Assembler Relationship Specialty Start Date End Date Faraz Osman MD [address] [place] [address] PCP - General Internal Medicine 02/20/23 Faraz Osman MD [address] [place] [address] PCP - [employer] 01/30/24 Propellant Assembler Relationship Specialty Start Date End Date Faraz Osman MD [address] [place] [address] PCP - General Internal Medicine 02/20/23 Faraz Osman MD [address] [place] [address] PCP - [employer] 01/30/24 Propellant Assembler Relationship Specialty Start Date End Date Faraz Osman MD [address] [place] [address] PCP - General Internal Medicine 02/20/23 Faraz Osman MD [address] [place] [address] PCP - [employer] 01/30/24 Propellant Assembler Relationship Specialty Start Date End Date Faraz Osman MD [address] [place] [address] PCP - General Internal Medicine 02/20/23 Faraz Osman MD [address] [place] [address] PCP - [employer] 01/30/24 Propellant Assembler Relationship Specialty Start Date End Date Faraz Osman MD [address] [place] [address] PCP - General Internal Medicine 02/20/23 Faraz Osman MD [address] [place] [address] PCP - [employer] 01/30/24 Propellant Assembler Relationship Specialty Start Date End Date Faraz Osman MD [address] [place] [address] PCP - General Internal Medicine 02/20/23 Faraz Osman MD [address] [place] [address] PCP - [employer] 01/30/24 Propellant Assembler Relationship Specialty Start Date End Date Faraz Osman MD [address] [place] [address] PCP - General Internal Medicine 02/20/23 Faraz Osman MD [address] [place] [address] PCP - [employer] 01/30/24 Propellant Assembler Relationship Specialty Start Date End Date Faraz Osman MD [address] [place] [address] PCP - General Internal Medicine 02/20/23 Faraz Osman MD [address] [place] [address] PCP - [employer] 01/30/24 Propellant Assembler Relationship Specialty Start Date End Date Faraz Osman MD [address] [place] [address] PCP - General Internal Medicine 02/20/23 Faraz Osman MD [address] [place] [address] PCP - [employer] 01/30/24 Propellant Assembler Relationship Specialty Start Date End Date Faraz Osman MD [address] [place] [address] PCP - General Internal Medicine 02/20/23 Faraz Osman MD [address] [place] [address] PCP - [employer] 01/30/24 Propellant Assembler Relationship Specialty Start Date End Date Faraz Osman MD [address] [place] [address] PCP - General Internal Medicine 02/20/23 Faraz Osman MD [address] [place] [address] PCP - [employer] 01/30/24 Propellant Assembler Relationship Specialty Start Date End Date Faraz Osman MD [address] [place] [address] PCP - General Internal Medicine 02/20/23 Faraz Osman MD [address] [place] [address] PCP - [employer] 01/30/24 Propellant Assembler Relationship Specialty Start Date End Date Faraz Osman MD [address] [place] [address] PCP - General Internal Medicine 02/20/23 Faraz Osman MD [address] [place] [address] PCP - [employer] 01/30/24 Propellant Assembler Relationship Specialty Start Date End Date Faraz Osman MD [address] [place] [address] PCP - General Internal Medicine 02/20/23 Faraz Osman MD [address] [place] [address] PCP - [employer] 01/30/24 Propellant Assembler Relationship Specialty Start Date End Date Faraz Osman MD [address] [facility] [address] [place] [address] PCP - General Internal Medicine 02/20/23 Faraz Osman MD [address] [facility] [address] [place] [address] PCP - [employer] 01/30/24 Goals (unrecognized section and content) Goals may be documented in a n alternate section No data available for this sectionNo InformationNo InformationGoals may be documented in an alternate section No data available for this section REASON FOR VISIT (unrecogniz ed section and content) Reason Comments Post-op Reason Comments Cerumen Impaction Reason Comments Follow-up [facility] ER 08/26/24 dx: multiple falls,closed head injury discharged home no med changesPt has follow up with cardiology today Med Refill Nystatin powder-- DM [place] Reason Comments Diabetes Med Refill Freestyle yesenia 2 se nsors--DM [place] Reason Comments Medicare Annual Wellness Visit Subsequen t Results Lab results Reason Comments Results Mri results Med Refill Nystatin powder-- DM [place] FOR RECORDS PERTAINING TO PATIENTS WHO ARE [...] BE BASED ON THE PRIMARY CLINICAL RECORDS. [employer] provides no warranty or guarantee of the accuracy or completeness of information in this document.
--- NOTE | 2024-10-17 21:37 | CT_ITS ---
The [address] [address] Patient Name: ORTEGA POWELL MRN: [id number] date: 1955 Sex: F Assigned Patient Location: ER Current Patient Location: ER Accession/Order Number: [id number] Exam Date: 10/17/2024 21:50 Report Date: 10/17/2024 22:04 At the request of: RUSSEL MOSQUEDA Procedure: CT stroke head/brain wo con EXAM: CT stroke head/brain wo con HISTORY: leg weakness, fall, head injury INDICATION: 69 years old; Female. TECHNIQUE: CT Head (ax/cor/sag reformats). Ionizing radiation dose reduced via iterative reconstruction/FBP blend and body size kV/mA adjustment. Comparison: Head CT dated 02/11/2024. FINDINGS: POSTOPERATIVE CHANGES: None. BRAIN PARENCHYMA: No intraparenchymal or extra-axial hemorrhage. No mass effect. No midline shift or herniation. There is an old gangliocapsular infarct present on the left. Old lacunar infarction is also seen in the head of the right caudate. Old lacunar infarction in the anterior aspect of the right thalamus. Old lacunar infarction in the posterolateral limb of the right internal capsule. Patchy low-density in the periventricular and subcortical white matter without mass effect. VENTRICLES/EXTRA-AXIAL SPACES: Normal for patient's age. SINUSES/MASTOIDS: The sinuses are clear although the maxillary sinuses are not completely included. Nasal septal deviation to the left with spur formation. Mastoids and middle ears are clear. MSK: No displaced or depressed calvarial fracture. OTHER: No hyperdense intraluminal thrombus. Vascular calcifications are present. CT/CT stroke head/brain wo con IMPRESSION: 1. No acute intracranial abnormality. No hemorrhage or mass effect. 2. Old lacunar infarctions and nonspecific white matter changes. 3. Vascular calcification. If there is concern for acute infarction, then MRI including diffusion imaging would be more sensitive. Electronically authenticated by: JIN PRIEST Date: 10/17/2024 22:04
--- NOTE | 2024-10-17 21:38 | ED_ITS ---
HPI HPI - Fall General Chief Complaint: Fall Stated Complaint: FALL Time Seen by Provider: 10/17/24 21:14 Source: patient Mode of arrival: ambulance Limitations: no limitations History of Present Illness HPI Narrative: pt has chronic low back pain and degenerative disc disease in the lumbosacral spine with disc herniation causing bilateral lower leg weakness. She is falling frequently when her legs just give out . She was trying to go up some stairs at her home when her legs gave out and she fell back, about 6 feet, striking the ground and hitting the back of her head. No LOC and she denies any new neurological symptoms now. Immediately after the fall, she was dazed, dizzy and had trouble concentrating and remembering things. No injuries to the upper or lower extremities. No new back pain. She is on anti-coagulation but does not remember the name - according to her EMR she takes aspirin and plavix. She did not take anything for the pain. The patient did not have any palpitations, chest pain, lightheadedness or dizziness or other symptoms to suggest acute cardiac etiology prior to her fall. However EMS obtained an EKG. EKG interpretation: Emergency Department physic [place] interpretation. Normal sinus rhythm at 90bpm. LVH noted. No ischemic changes or ST segment elevation or depression. She did not take any of her meds today Related Data Home Medications ?Medication ?Instructions ?Recorded ?Confirmed amlodipine 10 mg tablet 10 mg PO QDAY 06/16/23 10/17/24 anastrozole 1 mg tablet 1 mg PO QDAY 06/16/23 02/11/24 aspirin 81 mg capsule 81 mg PO DAILY 06/16/23 08/26/24 atorvastatin 80 mg tablet 80 mg PO QDAY 06/16/23 10/17/24 bupropion HCl 150 mg 24 hr tablet, 150 mg PO QDAY 06/16/23 10/17/24 extended release carvedilol 12.5 mg tablet 12.5 mg PO BID 06/16/23 10/17/24 clopidogrel 75 mg tablet 75 mg PO QDAY 06/16/23 10/17/24 isosorbide mononitrate 30 mg 30 mg PO QDAY 06/16/23 10/17/24 tablet,extended release 24 hr lisinopril 40 mg tablet 10 mg PO BID 06/16/23 10/17/24 metformin 500 mg tablet,extended 500 mg PO BID 06/16/23 10/17/24 release 24 hr oxcarbazepine 300 mg tablet 300 mg PO BID 06/16/23 10/17/24 pantoprazole 40 mg tablet,delayed 40 mg PO Q12H 06/16/23 10/17/24 release spironolactone 25 mg tablet 25 mg PO QDAY 06/16/23 08/26/24 gabapentin 300 mg capsule 300 mg PO BEDTIME 02/11/24 10/17/24 insulin lispro protamine-lispro 45 unit subcut .am 02/12/24 10/17/24 100 unit/mL (75-25) subcutaneous pen Allergies Allergy/AdvReac Type Severity Reaction Status Date / Time Antihistamines - Alkylamine AdvReac Unknown Unknown Verified 10/17/24 21:18 Opioid HPI Opioid Management Most Recent Pain and Opioid Data: Last Pain Scale 8 10/17/24 21:58 10/17/24 Last ED Pain Assessment 10/17/24 21:53 Last ORT Total Score 0 02/11/24 19:52 02/11/24 Last ORT Risk Category Low Risk 02/11/24 19:52 02/11/[address] [facility] Medical History (Updated 10/17/24 @ 22:55 by Dmitri Cardenas) Falls ?R29.6 - Repeated falls (ICD-10) GERD (gastroesophageal reflux disease) ?K21.9 - Gastro-esophageal reflux disease without esophagitis (ICD-10) Hypertension ?I10 - Essential (primary) hypertension (ICD-10) Cerebrovascular disease ?I67.9 - Cerebrovascular disease, unspecified (ICD-10) Type 2 diabetes mellitus with diabetic polyneuropathy ?E11.42 - Type 2 diabetes mellitus with diabetic polyneuropathy (ICD-10) CAD (coronary artery disease) ?I25.10 - Atherosclerotic heart disease of [place] coronary artery without angina pectoris (ICD-10) Chronic heart failure with preserved ejection fraction (HFpEF) ?I50.32 - Chronic diastolic (congestive) heart failure (ICD-10) Diabetes mellitus with hyperglycemia, with long-term current use of insulin ?E11.65 - Type 2 diabetes mellitus with hyperglycemia (ICD-10) ?Z79.4 - medical terminologist (current) use of insulin (ICD-10) Ductal carcinoma in situ (DCIS) of left breast ?D05.12 - Intraductal carcinoma in situ of left breast (ICD-10) Ataxia ?R27.0 - Ataxia, unspecified (ICD-10) Chronic shortness of breath ?R06.02 - Shortness of breath (ICD-10) Chest pain ?R07.9 - Chest pain, unspecified (ICD-10) Breast cancer ?C50.919 - Malignant neoplasm of unspecified site of unspecified female breast (ICD-10) Diabetes mellitus ?E11.9 - Type 2 diabetes mellitus without complications (ICD-10) Brain aneurysm ?I67.1 - Cerebral aneurysm, nonruptured (ICD-10) Congestive heart failure ?I50.9 - Heart failure, unspecified (ICD-10) Myocardial infarction ?I21.9 - Acute myocardial infarction, unspecified (ICD-10) Stroke ?I63.9 - Cerebral infarction, unspecified (ICD-10) Surgical History (Updated 02/11/24 @ 19:36 by Emilie Murguia) H/O heart artery stent ?Z95.5 - Presence of coronary angioplasty implant and graft (ICD-10) Family History (Updated 02/11/24 @ 19:43 by Emilie Murguia) Other Family history of CHF (congestive heart failure) Family history of hypertension Family history of myocardial infarction Family history of stroke Social History (Updated 02/11/24 @ 19:45 by Emilie Murguia) Within the past year, how often did you have six or more drinks on one occasion: never Smoking status: Never smoker Non-prescribed substance use: denies use Previous occupational history: Retired Highest level of school completed/degree received: 12th grade, no diploma Are you now , , , , never or living with a partner: In a typical week, how many times do you talk on the telephone with family, friends, or neighbors: 3 or more times per week How often do you get together with friends or relatives: 3 or more times per week Little interest or pleasure in doing things: not at all Feeling down, depressed, or hopeless: not at all Feel stressed/tense/nervous/anxious/difficulty sleeping: not at all Exam Narrative Exam Narrative: Nurses note and vital signs reviewed and patient is not hypoxic. afebrile General: The patient appears well and in no apparent distress. Patient is resting comfortably on cart. GCS = 15. Skin: Warm, dry, no pallor noted. Head: Mild swelling and mild tenderness to the occiput without ecchymosis, abrasion or laceration. Remainder of the scalp and the face are normocephalic, atraumatic Neck: Supple, trachea mid-line, no tenderness, no lymphadenopathy. Full ROM and no cervical spinal tenderness. The patient has no step-offs or crepitus noted Eyes: PERRLA, EOMI, no nystagmus ENT: no oral or facial injury Cardiovascular: Regular Rate and Rhythm Respiratory: Patient is in no distress, no accessory muscle use, lungs are clear to auscultation, no wheezing, rales or rhonchi Back: No thoracic vertebral tenderness. Diffuse lumbar vertebral tenderness to palpation but that is not new . Negative straight leg raise bilaterally. No ecchymosis, abrasions, lacerations noted. Musculoskeletal: no sign of long bone fracture. Moves all four extremities in all modalities with 5/5 strength. GI: No tenderness to palpation. No rebound, guarding, or rigidity noted. Neurological: A&O x4, normal equal pens and pencils repairer strength, normal finger to nose, normal speech, normal coordination, normal motor, normal sensory. Psychiatric: Cooperative Constitutional Vital Signs, click to edit/add: Last Vital Signs Temp 98.9 F 10/17/24 21:14 Pulse 81 10/17/24 22:11 Resp 18 10/17/24 22:11 BP 224/90 H 10/17/24 22:11 Pulse Ox 95 10/17/24 22:11 O2 Del Method Room Air 10/17/24 22:11 Course Vital Signs Vital signs: Vital Signs Temperature 98.9 F 10/17/24 21:14 Pulse Rate 83 10/17/24 21:14 Respiratory Rate 16 10/17/24 21:14 Blood Pressure 180/100 H 10/17/24 21:14 Pulse Oximetry 95 10/17/24 21:14 Oxygen Delivery Method Room Air 10/17/24 21:14 Temperature 98.9 F 10/17/24 21:14 Pulse Rate 81 10/17/24 22:11 Respiratory Rate 18 10/17/24 22:11 Blood Pressure 224/90 H 10/17/24 22:11 Pulse Oximetry 95 10/17/24 22:11 Oxygen Delivery Method Room Air 10/17/24 22:11 MDM - Fall MDM Narrative Medical decision making narrative: Patient did not have any dizziness, syncope or near syncope. She had no palpitations or other cardiac symptoms prior to falling. Our triage nurse obtained an ekg on patient's arrival. She has chronic degenerative disc disease with herniation in the lumbosacral spine and has developed lower extremity instability as a result. This was a mechanical fall from her neuropathy and not an associated cardiac event. She was sent for CT scanning of the brain because of the injury to the head as well as her use of anticoagulants. She was given Tylenol for pain. She was also placed on engine monitor and given Labetalol for HTN as her BP was 180/100 on arrival. On recheck, her BP was still elevated and she was given 40mg Labetalol IV. Her head CT was negative for skull fx or ICH. She was informed of our findings and given reassurance. Pt discharged home with BP improved to 107/67 after ED treatment. She was instructed to take her evening meds when she got home. Imaging Data CT scan - head: Attestation: I have reviewed the pertinent imaging results. Radiologist's impression: ITS Impressions Brain CT 10/17/24 21:37 IMPRESSION: 1. No acute intracranial abnormality. No hemorrhage or mass effect. 2. Old lacunar infarctions and nonspecific white matter changes. 3. Vascular calcification. If there is concern for acute infarction, then MRI including diffusion imaging would be more sensitive. Electronically authenticated by: JIN PRIEST Date: 10/17/2024 22:04 ECG Data Attestation: I personally reviewed and interpreted this ECG as follows: Interpretation: EKG interpretation: Emergency Department physician interpretation. Normal sinus rhythm at 85bpm. LVH noted. No ischemic changes and no ST segment elevation or depression. Discharge Plan Discharge Chief Complaint: Fall Clinical Impression: Hypertension, Head injury, DDD (degenerative disc disease), lumbosacral, Peripheral neuropathy Patient Disposition: Home, Self-Care Time of Disposition Decision: 22:55 Prescriptions / Home Meds: No Action amlodipine 10 mg tablet 10 mg PO QDAY anastrozole 1 mg tablet 1 mg PO QDAY atorvastatin 80 mg tablet 80 mg PO QDAY bupropion HCl 150 mg tablet extended release 24 hr 150 mg PO QDAY carvedilol 12.5 mg tablet 12.5 mg PO BID clopidogrel 75 mg tablet 75 mg PO QDAY isosorbide mononitrate 30 mg tablet extended release 24 hr 30 mg PO QDAY lisinopril 40 mg tablet 10 mg PO BID metformin 500 mg tablet extended release 24 hr 500 mg PO BID pantoprazole 40 mg tablet,delayed release (DR/EC) 40 mg PO Q12H spironolactone 25 mg tablet 25 mg PO QDAY aspirin 81 mg capsule 81 mg PO DAILY oxcarbazepine 300 mg tablet 300 mg PO BID gabapentin 300 mg capsule 300 mg PO BEDTIME insulin lispro protamin-lispro 100 unit/mL (75-25) insulin pen 45 unit SUBCUT .am Rx Instructions: Patient takes 45 units in AM and 55 Units PM Print Language: Belarusian Instructions: Head Injury (ED), Chronic Hypertension (ED), Peripheral Neuropathy (ED), Degenerative Disc Disease (ED) Referrals: KAREN EMANUEL [Primary Care Provider] - 1 week
--- NOTE | 2024-10-17 21:50 | ECG_ITS ---
The [facility] Test Date: 2024-10-17 Pat Name: ORTEGA POWELL Department: Room: - Gender: Female [employer] Team Member: : 1955 Requested By: KAREN EMANUEL Order Number: [id number] Reading MD: ADIS GARCIA Measurements Intervals [place] Rate: 85 P: -37 MD: 174 QRS: -14 QRSD: 94 T: 90 QT: 372 QTc: 414 Interpretive Statements 1220 Rapid atrial rhythm 5234 Left ventricular hypertrophy with repolarization abnormality 9150 abnormal ECG Electronically Signed On 10-20-2024 17:41:13 EST by ADIS GARCIA
[2024-10-17] MEDS: LABETALOL HCL 20 MG/4 ML SYRINGE IVP (21:58)
[2024-10-17] MEDS: ACETAMINOPHEN 500 MG TABLET 1000 MG PO (21:58)
[2024-10-17] MEDS: LABETALOL HCL 20 MG/4 ML SYRINGE 40 MG IVP (22:37)
== END 2024-10-17 23:21 | disposition home or self-care (01) ==
PROVIDERS: Emergency Provider Emergency Medicine; PCP Internal Medicine
DX: S09.90XA Unspecified injury of head, initial encounter (principal); G62.9 Polyneuropathy, unspecified; M51.379 Other intervertebral disc degeneration, lumbosacral region without mention of lumbar back pain or lower extremity pain; W10.8XXA Fall (on) (from) other stairs and steps, initial encounter; Z91.81 History of falling; Z79.82 Long term (current) use of aspirin; Z79.02 Long term (current) use of 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latelets; Z95.5 Presence of coronary angioplasty implant and graft; I10 Essential (primary) hypertension
CPT/HCPCS: 70450; 93005; 96374; 96376; 99285; J1920

== ENCOUNTER 2024-12-24 08:02 | Outpatient (OUT) | payer MEDICARE, MEDICAID, SELFPAY ==
--- NOTE | 2024-12-24 08:15 | NM_ITS ---
Patient Name: ORTEGA POWELL MR#: [id number] : 1955 Exam Date: 12/24/2024 Ordering Doctor: EM COREAS CNP RADIOLOGY REPORT PROCEDURE: NM CALE PERF SPECT REST STR COMPARISON: None. INDICATIONS: PRE PROCEDURE CARDIOVASCULAR EXAM, CONGESTIVE HEART FAILURE TECHNIQUE: Exam Description: Stress/Rest one day protocol gated SPECT Rest Imagin.1 mCi Tc-99m Cardiolite IV on 12/24/2024 Stress Imaging 29.5 mCi Tc-99m Cardiolite IV on 12/24/2024 Exercise Protocol: 0.4 mg Lexiscan given IV Heart Rate (bpm): Rest: 66 Max: 79 PMHR: 52 Blood Pressure: Rest: 146/80 Max: 146/80 Symptoms: Rest and peak stress ECG findings were pending, and the exercise portion of the study was pending per attending physician [facility]. For more details, please see separate cardiac stress test report. FINDINGS: QUALITY OF STUDY: Good PERFUSION DEFECT: LOCATION: Inferolateral SIZE: Small SEVERITY: Mild TYPE: Fixed and likely related to soft tissue attenuation WALL MOTION: LV SIZE: 86 mL. TID / TCD: 1.0 LVEF: Calculated EF 59%. SUMMARY: Myocardial perfusion imaging study is normal CONCLUSION: 1. Myocardial perfusion is normal with soft tissue attenuation 2. Global left ventricular systolic function is normal 3. No evidence of transient ischemic dilatation Dictated by: Garrett Mcdonald M.D. on 12/24/2024 at 14:24 Approved by: Garrett Mcdonald M.D. on 12/24/2024 at 14:27
[2024-12-24] MEDS: REGADENOSON 0.4 MG/5 ML SYRINGE IV (10:04)
--- NOTE | 2024-12-24 10:17 | PC.NURSE ---
Nursing Note Cardiac Stress Test Reviewed: Medication, allergies and patient history reviewed. Stress Test: [x ] Patient tolerated stress test well. [ ] Patient unable to tolerate walking on treadmill. Switched to Lexiscan stress test. [x ] No chest pain noted per patient [ ] Chest pain that resolved prior to leaving stress lab. [ x] No dyspnea noted. [ ] Dyspnea that resolved prior to leaving stress lab. [ x] Patient left stress lab asymptomatic and hemodynamically stable. [ ] Patient taken to the Emergency Room due to non-resolving symptoms following stress test. [ ] Patient achieved target heart rate. [ ] Patient unable to achieve target heart rate. [ ] Aminophylline administered as reversal agent to Lexiscan (Regadenoson). [ ] Nitro administered. Nursing Comments:
== END 2024-12-24 08:03 | disposition home or self-care (01) ==
LOC: NM 08:03
PROVIDERS: PCP Internal Medicine; Visit Provider Nurse Practitioner Family
DX: Z01.810 Encounter for preprocedural cardiovascular examination (principal); I25.10 Atherosclerotic heart disease of native coronary artery without angina pectoris
CPT/HCPCS: 78452; 93017; A9500; J2785

== ENCOUNTER 2025-01-07 20:20 | Inpatient (IN) | payer MEDICARE, MEDICAID, SELFPAY ==
[2025-01-07] VITALS (27 sets, daily range): BP systolic 154–241; BP diastolic 44–92; PULSE 76–87; TEMP 37.2; O2SAT 86–98; BMI 35.3
--- OUTSIDE RECORDS SUMMARY | 2025-01-07 20:27 | XMS_ITS | CCD ---
Author Organization [facility] Care Team Providers Care Windows Technical Specialist Name Role Phone CARLOS EDUARDO VAN Unavailable Unavailable JONAH SANABRIA Admitting Unavailable JONAH SANABRIA Attending Unavailable GARRETT MCDONALD Referring Unavailable FARAZ OSMAN Primary Care Unavailable [place] Procedure Practitioner Unavailab JENNIFER Ross Surgeon Unavailable FARAZ OSMAN Primary Care Unavailable FARAZ OSMAN Referring Unavailable MIGUEL DEMPSEY Attending Unavailable ELTON DEMPSEYHAMMAD R Admitting Unavailable [place] Procedure Practitioner Unavailab Dov Blank Surgeon Unavailable WILMAR MORRIS Primary Care Unavailable DOMINICK MCGEE Referring Unavailable THERESA TOMAS Admitting Unavailable CHERELLEELTON QUINONESHAMMAD R Attending Unavailable [place] Procedure Practitioner Unavailab ELTON TorresHAMMAD R Surgeon Unavailable SHAHANA Osman Primary Care Provider SHAHANA Osman Referring Provider MD Karoline Farmer Attending Provider DO Jac Hemphill Attending Provider SHAHANA Osman Primary Care Provider SHAHANA Osman Referring Provider MD Karoline Farmer Attending Provider SHAHANA Osman Referring Provider [phone] MD Karoline Farmer Attending Provider SHAHANA Osman Referring Provider MD Karoline Farmer Attending Provider SHAHANA Osman Referring Provider MD Karoline Farmer Attending Provider [phone] Dawson, SHAHANA Ruth Primary Care Provider [phone] SHAHANA Osman Referring Provider [phone] MD Karoline Farmer Attending Provider FARAZ OSMAN [...] RUTH Primary Care Unavailable NETODAVID Admitting Unavailable NETO, DAVID Attending Unavailable NETODAVID Consulting Unavailable ELTAHAWY, DR MATA Admitting Unavailable WEST, DR CARLOS EDUARDO Munroe Consulting Unavailable OSMAN, DR RUTH Primary Care Unavailable ELTAHAWY, DR MATA Attending Unavailable ELTAHAWY, DR MATA Consulting Unavailable DAWSON, DR RUTH Admitting Unavailable OSMAN, DR RUTH Primary Care Unavailable OSMAN, DR RUTH Attending Unavailable OSMAN, DR RUTH Consulting Unavailable ZIEBER, DR BARRON Cho Consulting Unavailable COLIN .KAROLINE Consulting Unavailable DAWSON, DR RUTH Primary Care Unavailable GABE .TIFFANIE Admitting Unavailable GABE ., TIFFANIE Attending Unavailable DIAMOND CHAN Consulting Unavailable Faraz Osman Primary Care Unavailable Faraz Osman Referring Unavailable DarianKaroline anderson Admitting Unavailable Karoline Farmer Attending Unavailable Faraz Osman MD Primary Care Provider FARAZ OSMAN Primary Care Unavailable FARAZ OSMAN Referring Unavailable FARAZ OSMAN Primary Care Unavailable FARAZ OSMAN Referring Unavailable FARAZ OSMAN Primary Care Unavailable FARAZ OSMAN Referring Unavailable FARAZ OSMAN Primary Care Unavailable FARAZ OSMAN Referring Unavailable FARAZ OSMAN Attending Unavailable Faraz Osman MD Unavailable [phone] FARAZ OSMAN Attending Unavailable FARAZ OSMAN Attending Unavailable FARAZ OSMAN Attending Unavailable FARAZ OSMAN Attending Unavailable FARAZ OSMAN Attending Unavailable FARAZ OSMAN Attending Unavailable ARANZA AGUDELO Attending Unavailable FARAZ OSMAN Attending Unavailable FARAZ OSMAN Attending Unavailable DARREL EDWARDS Attending Unavailable HEMMERCHRISTY Attending Unavailable MARY RAMSAY Attending Unavailable HEMMERCHRISTY M Referring Unavailable OSWALDO BRODY Attending Unavailable HEMMER, CHRISTY M Referring Unavailable FARAZ OSMAN Attending Unavailable MARY RAMSAY Attending Unavailable HEMMER, CHRISTY M Referring Unavailable OSWALDO BRODY Attending Unavailable HEMMER, CHRISTY M Referring Unavailable FARAZ OSMAN Attending Unavailable MARY RAMSAY Attending Unavailable HEMMER, CHRISTY Gregory Referring Unavailable HEMMER, CHRISTY Gregory Referring Unavailable RONNOSWALDO Attending Unavailable HEMMER, CHRISTY Gregory Referring Unavailable RONNOSWALDO Attending Unavailable HEMMER, CHRISTY M Referring Unavailable MARY RAMSAY Attending Unavailable HEMMER, CHRISTY Gregory Referring Unavailable MARY RAMSAY Attending Unavailable HEMMER, CHRISTY Gregory Referring Unavailable FARAZ OSMAN Attending Unavailable ELGAFBLAINE PalmaCLAUDIA Referring Unavailable ELGAFY CLAUDIA Referring Unavailable ELGAFY CLAUDIA Attending Unavailable EM ARZOLA Attending Unavailable EM ARZOLA Attending Unavailable Allergies Allergy Classification Reported Allergen(s) Allergy Type Date of Onset Reaction(s) Facility (1 source) 55927,00 Drug allergy (disorder) 02-02-2017 [facility] Repository (20 sources) diphenhydrAMINE; Translations: [diphenhydramine ] Drug Allergy 12-20-2021 [facility] Medications Current Medications Medication Drug Class(es) Dates Sig (Normalized) Sig (Original) acetaminophen 300 mg / codeine phosphate 30 mg oral tablet (9 sources) Opioid Agonist Start: 12-20-2021 take 1 tablet by mouth every four to six hours Acetaminophen-Cod eine Active 1 TAB PO EVERY 4-6 HOURS 20 5 December 20, 2021 11:37am Acetaminophen / HYDROcodone (2 sources) Opioid Agonist HYDROcodone-Acet a minophen Active [id number] 200 actuat albuterol 0.09 mg/actuat metered dose inhaler (9 sources) beta2-Adrenergic Agonist Start: 11-23-2021 take 1 puff(s) by inhalation every four to six hours Albuterol Sulfate Active 2 PUFF INHALATION EVERY 4-6 HOURS November 23, 2021 4:43pm amLODIPine 10 mg oral tablet (20 sources) Dihydropyridine Calcium Channel Drew Start: 11-03-2024 take 1 tablet by mouth in the morning amLODIPine (Norvasc) 10 MG tablet Indications: Benign essential hypertension (CMS/HCC) Take 1 tablet (10 mg) by mouth in the morning. 100 tablet 3 11/03/2024 Active Start: 05-28-2024 take 1 tablet by yesica th in the morning amLODIPine (Norvasc) 10 MG [...] tablet (20 sources) HMG-CoA Reductase Inhibitor Start: 11-03-2024 take 1 tablet by mouth once daily atorvastatin (Lipitor) 80 MG tablet Indications: Mixed hyperlipidemia (CMS/HCC) Take 1 tablet (80 mg) by mouth Daily 100 tablet 3 11/03/2024 Active Start: 05-28-2024 take 1 tablet by yesica th once daily atorvastatin (Lipitor) 80 MG tablet Indications: Mixed hyperlipidemia (CMS/HCC) Take 1 tablet (80 mg) by mouth Daily 100 tablet 3 05/28/2024 Active Start: 11-23-2021 take 80 mg by mouth once daily Atorvastatin Active 80 MG PO Daily November 23, 2021 4:43pm Lipitor Active 24 hr buPROPion hydrochloride 150 mg extended release oral tablet (20 sources) Aminoketone Start: 11-03-2024 take 1 tablet by mouth every twenty-four hours in the morning buPROPion XL (Wellbutrin XL) 150 MG 24 hr tablet Indications: Major depressive disorder, single episode, moderate (HCC) (CMS/HCC) Take 1 tablet (150 mg) by mouth in the morning. 100 tablet 3 11/03/2024 Active Start: 05-28-2024 take 1 tablet by yesica th every [...] (20 sources) alpha-Adrenergic Drew, beta-Adrenergic Drew Start: 11-03-2024 take 1 tablet by mouth in the morning carvedilol (Coreg) 12.5 MG tablet Indications: Benign essential hypertension (CMS/HCC) Take 1 tablet (12.5 mg) by mouth in the morning and 1 tablet (12.5 mg) before bedtime. 200 tablet 3 11/03/2024 Active Start: 05-28-2024 take 1 tablet by yesica th in the morning carvedilol (Coreg) 12.5 MG [...] tablet (20 sources) [id number] Platelet Inhibitor Start: 11-03-2024 take 1 tablet by mouth once daily clopidogrel (Plavix) 75 MG tablet Indications: Chronic venous insufficiency Take 1 tablet (75 mg) by mouth Daily 100 tablet 3 11/03/2024 Active Start: 05-28-2024 take 1 tablet by yesica th once [...] Continuous Glucose Sensor (FreeStyle Yesenia 2 Sensor) [facility] (20 sources) Start: 11-20-2024 End: 12-22-2024 Continuous Glucose Sensor (FreeStyle Yesenia 2 Sensor) [facility] 1 Device every 14 (fourteen) days 11/20/2024 12/22/2024 Discontinued (Duplicate order) Start: 11-03-2024 Continuous Glu cose Sensor (FreeStyle Yesenia 2 Sensor) [facility] Indications: Type 2 diabetes mellitus with diabetic neuropathy, with long-term current use of insulin ([facility]) 1 Device every 14 (fourteen) days 6 each 3 11/03/2024 Active Start: 06-11-2024 Continuous Glu cose Sensor (FreeStyle Yesenia 2 Sensor) [facility] Indications: Type 2 diabetes mellitus with diabetic neuropathy, with long-term current use of insulin (CMS/HCC) 1 Device every 14 (fourteen) days 2 each 11 06/11/2024 Active docusate sodium 100 mg oral capsule (20 sources) Start: 02-16-2023 take 1 capsule by mouth twice daily as needed for constipation RA Col-Rite 100 MG capsule Take 100 mg by mouth 2 (two) times a day as needed for constipation. 02/16/2023 Active empagliflozin 10 mg oral tablet (20 sources) Sodium-Glucose Cotransporter 2 Inhibitor Start: 11-03-2024 take 1 tablet by mouth once daily empagliflozin (Jardiance) 10 MG Indications: Type 2 diabetes mellitus with hyperglycemia, with long-term current use of insulin ([facility]) Take 1 tablet (10 mg) by mouth Daily 90 tablet 2 11/03/2024 Active Start: 05-05-2024 take 1 tablet by yesica th once daily empagliflozin (Jardiance) 10 MG Indications: Type 2 diabetes mellitus with hyperglycemia, with long-term current use of insulin (CMS/[facility]) Take 1 tablet (10 mg) by mouth Daily 90 tablet 2 05/05/2024 Active gabapentin 300 mg oral capsule (20 sources) Anti-epileptic Agent Start: 12-31-2023 End: 12-30-2024 take 1 capsule by mouth at bedtime gabapentin (Neurontin) 300 MG capsule Indications: Bilateral carpal tunnel syndrome Take 1 capsule (300 mg) by mouth at bedtime 90 capsule 1 12/22/2024 Active Start: 11-06-2023 take 1 capsule by mo [facility] at bedtime gabapentin (Neurontin) 300 MG capsule Indications: Bilateral carpal tunnel syndrome Take 1 capsule (300 mg) by mouth at bedtime 30 capsule 0 11/06/2023 Active Glucose (3 sources) Start: 12-22-2024 End: 12-22-2025 glucose 4 g chewable tablet Indications: Type 2 diabetes mellitus with diabetic neuropathy, with long-term current use of insulin ([facility]) Chew 4 tablets (16 g) if needed for low blood sugar 50 tablet 12 12/22/2024 12/22/2025 Active ibuprofen 600 mg oral tablet (9 sources) Nonsteroidal Anti-inflammatory Drug Start: 12-20-2021 Ibuprofen Active 600 MG PO EVERY 4-6 HOURS 14 07December 20, 2021 11:36am do not exceed 4 doses in a 24 hour period insulin isophane, human 70 unt/ml / insulin, regular, human 30 unt/ml injectable suspension (20 sources) Insulin Start: 03-10-2024 End: 11-03-2025 inject 45 [IU] by subcutaneous injection once [...] evening. Take with meals. 100 mL 3 11/03/2024 11/03/2025 Active Insulin Lispro Protamin-Lispro (Humalog Mix 75-25 [...] oral tablet (20 sources) Nitrate Vasodilator Start: 11-03-2024 take 1 tablet by mouth every twenty-four hours in the morning isosorbide mononitrate ER (Imdur) 30 MG 24 hr tablet Indications: Atherosclerosis of [place] coronary artery of [place] heart without angina pectoris (CMS/HCC) Take 1 tablet (30 mg) by mouth in the morning. 90 tablet 3 11/03/2024 Active Start: 02-21-2024 take 1 tablet by yesica th once daily in the morning isosorbide mononitrate ER (Imdur) 30 MG 24 hr tablet Indications: Atherosclerosis of [place] coronary artery of [place] heart without angina pectoris (CMS/HCC) take 1 tablet by mouth every morning 30 tablet 2 02/21/2024 Active Start: 11-23-2022 take 1 tablet by yesica th in the morning, then take 1 tablet by mouth every twenty-four hours isosorbide mononitrate ER (Imdur) 30 MG 24 hr tablet Take 30 mg by mouth in the morning. 0 11/23/2022 Active Isosorbide Wayne itrate Active lisinopril 40 mg oral tablet (20 sources) Angiotensin Converting Enzyme Inhibitor Start: 11-03-2024 take 1 tablet by mouth once daily lisinopril 40 MG tablet Indications: Benign essential hypertension (CMS/HCC) Take 1 tablet (40 mg) by mouth Daily 100 tablet 3 11/03/2024 Active Start: 05-28-2024 take 1 tablet by yesica th once daily lisinopril 40 MG tablet Indications: [...] release oral tablet (20 sources) Biguanide Start: 11-03-2024 take 1 tablet by mouth every twenty-four hours in the morning metFORMIN XR (Glucophage-XR) 500 MG 24 hr tablet Indications: Type 2 diabetes mellitus with diabetic neuropathy, with long-term current use of insulin (CMS/HCC) Take 1 tablet (500 mg) by mouth in the morning and 1 tablet (500 mg) before bedtime. 200 tablet 3 11/03/2024 Active Start: 05-28-2024 take 1 tablet by yesica th every [...] Polyene Antifungal Start: 09-29-2024 nystatin (N yamyc) [id number] UNIT/GM powder Indications: Candidiasis of skin Apply topically Daily 60 g 2 09/29/2024 Active Start: 03-31-2024 End: 09-29-2024 nystatin (Nyamyc) 593975 UNI T/GM powder Indications: Candidiasis of skin apply to affected area twice a day if needed 60 g 2 03/31/2024 09/29/2024 Discontinued (Reorder) Nyamyc 496223 UN IT/GM powder Nyamyc 100,000 unit/gram topical powder apply to affected area topically twice a day 0 Active OXcarbazepine 300 mg oral tablet (20 sources) Anti-epileptic Agent Start: 02-26-2024 OXcarbaze pine (Trileptal) 300 MG tablet Indications: Neurogenic pain 1 1/2 tabs BID 90 tablet 5 12/22/2024 Active Start: 08-27-2023 OXcarbazepine (Trileptal) 300 MG [...] Start: 03-22-2022 take 1 tablet by mouth once daily spironolactone (Aldactone) 25 MG tablet Indications: Neurogenic pain Take 1 tablet (25 mg) by mouth Daily 100 tablet 3 12/22/2024 Active Spironolactone A ctive triamcinolone acetonide 5 [...] Blood Gluc Sensor (FreeStyle Yesenia 2 Sensor) [facility] Indications: Type 2 diabetes mellitus with diabetic neuropathy, with long-term current use of insulin ([facility]/HCC) 1 Device every 14 (fourteen) days. 2 each 3 06/29/2023 06/11/2024 Discontinued (Reorder) Start: 06-29-2023 Continuous Blo od Gluc Sensor (FreeStyle Yesenia 2 Sensor) [facility] Indications: Type 2 diabetes mellitus with diabetic neuropathy, with long-term current use of insulin ([facility]/HCC) 1 Device every 14 (fourteen) days. 2 each 3 06/29/2023 Active 3 ml insulin lispro 25 unt/ml / insulin lispro protamine, human 75 unt/ml pen injector (20 sources) Insulin Analog Start: 02-27-2024 End: 12-08-2024 insulin lispro protamine-insulin lispro (HumaLOG Mix 75-25) (75-25) 100 UNIT/ML injection inject 60 units subcutaneously twice a day with meals and inject ... (REFER TO PRESCRIPTION NOTES). 02/27/2024 12/08/2024 Discontinued Start: 07-09-2023 insulin lispro protamine-insulin lispro (HumaLOG Mix 75-25) (75-25) 100 UNIT/ML suspension injection Indications: Type 2 diabetes mellitus with hyperglycemia, with long-term current use of insulin ([facility]) Inject 60 Units under the skin Daily with meals AND 45 Units in the evening. Take before meals. 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; Translations: [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 affecting unspecified side] Onset: 06-27-2018 03-30-2023 Chronic Malaise and fatigue (20 sources) Tires quickly; Translations: [Other fatigue] Onset: 05-25-2020 03-30-2023 Episodic Menopausal disorders (20 sources) Decreased estrogen level; Translations: [Other primary ovarian failure] Onset: 10-28-2018 03-30-2023 Chronic Mood disorders (20 sources) Moderate major depression, single episode; Translations: [Major depressive disorder, single episode, moderate] Onset: 07-02-2019 03-30-2023 Chronic Occlusion or stenosis of precerebral arteries (20 sources) Bilateral stenosis of carotid arteries; Translations: [Occlusion and stenosis of bilateral carotid arteries] Onset: 05-22-2023 05-22-2023 Chronic Open wounds of extremities (2 sources) Open bite of other finger without damage to nail, initial encounter Episodic Other aftercare (1 source) 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 latelets; Translations: [[facility] (CURRENT) USE OF ANTITHROMBOTICS/ANTIP LATELETS] Onset: 11-14-2018 Episodic Other aftercare (7 sources) Drug therapy finding; Translations: [Encounter for therapeutic drug level monitoring] 01-13-2022 Episodic Other aftercare (1 source) penitentiary (current) use of oral hypoglycemic drugs; Translations: [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 OF ORAL HYPOGLYCEMIC DRUGS] Onset: 09-05-2018 Other and ill-defined cerebrovascular disease (20 sources) Cerebral ischemia; Translations: [Cerebral ischemia] Onset: 04-10-2020 03-30-2023 Chronic Other and ill-defined cerebrovascular disease (20 sources) Intracranial aneurysm; Translations: [Cerebral aneurysm, nonruptured] Onset: 02-26-2024 02-26-2024 Chronic Other connective tissue disease (14 sources) Recurrent [...] of gait and mobility] 08-11-2024 Episodic Other nervous system disorders (2 sources) Other abnormalities of gait and mobility; Translations: [Other abnormalities of gait and mobility] Onset: 11-26-2024 Episodic Other nutritional; endocrine; and metabolic disorders (1 source) Obesity, unspecified; Translations: [OBESITY, UNSPECIFIED] Onset: 04-28-2018 Chronic Other nutritional; endocrine; and metabolic disorders (1 source) Body mass index (BMI) 40.0-44.9, adult; Translations: [BODY MASS INDEX (BMI) 40.0-44.9, ADULT] Onset: 04-28-2018 Chronic Other nutritional; endocrine; and metabolic disorders (4 sources) Obesity caused by energy imbalance; Translations: [Morbid (severe) obesity due to excess calories] 06-11-2024 Chronic Other nutritional; endocrine; and metabolic disorders (4 sources) Body mass index 30+ - obesity; [...] FROM BED INITIAL ENCOUNTER] Onset: 2 Episodic Mycoses (20 sources) Candidiasis; Translations: [Other sites of candidiasis] Onset: 3 03-30-2023 Episodic Nonmalignant breast conditions (20 sources) Mastodynia; Translations: [Pain of right breast] Onset: 4 11-25-2021 Episodic Nonspecific chest pain (9 sources) Chest pain, unspecified; Translations: [Other chest pain] Onset: 8 Episodic Nutritional deficiencies (20 sources) Cobalamin deficiency; Translations: [Deficiency of other specified B group vitamins] Onset: 3 05-22-2023 Episodic Other acquired deformities (20 sources) Retrolisthesis; Translations: [Spondylolisthesis, site unspecified] Onset: 3 03-30-2023 Episodic Other aftercare (2 sources) penitentiary (current) use of insulin; Translations: [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 OF INSULIN] Onset: 8 Episodic Other aftercare (2 sources) welding engineer (current) use of aspirin; Translations: [[facility] (CURRENT) USE OF ASPIRIN] Onset: 8 Episodic Other aftercare (7 sources) Encounter for therapeutic drug level monitoring; Translations: [Encounter for therapeutic drug monitoring] Onset: 2 Episodic Other aftercare (20 sources) Long-term current use of insulin; Translations: [penitentiary (current) use of insulin] Onset: 8 03-30-2023 Episodic Other aftercare (1 source) Other half-way (current) drug therapy; Translations: [OTH [facility] CURRENT DRUG THERAPY] Onset: 2 Episodic Other aftercare (1 source) 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; Translations: [[facility] USE ORAL HYPOGLYCEMIC DX] Onset: 2 Episodic Other aftercare (1 source) penitentiary (current) use of aromatase inhibitors; Translations: [welding engineer (current) use of aromatase inhibitors] Onset: 2 Episodic Other and ill-defined cerebrovascular disease (20 sources) Cerebral arteriosclerosis; Translations: [Cerebral atherosclerosis] Onset: 0 Resolved: 3 06-27-2023 Chronic Other circulatory disease (10 sources) Personal history of transient ischemic attack (TIA), and cerebral infarction without residual deficits; Translations: [Personal history of transient ischemic attack (TIA), and cerebral infarction without residual deficits] Onset: 8 Episodic Other circulatory disease (20 sources) History of cerebrovascular accident; Translations: [Personal history of transient ischemic attack (TIA), and cerebral infarction without residual deficits] Onset: 4 11-25-2021 Episodic Other connective tissue disease (1 source) [...] Test Name Value Interpretation Reference Range Facility 36on 12-31-2024 36 Regarding stress goran t result from 12/24/2024: Em Arzola, RENU Jay MA Please let her know her stress test was negative. I will give clearance for her upcoming surgery. I updated my most recent office note with clearance. Please send to ortho. Thanks! Spoke with patient and made her aware of negative stress test. Told her I'd make Dr. Irby's office aware. Patient verbalized understanding. Normal [facility] NM CALE PERF SPECT REST STRon 12-24-2024 [place] [address] Nuclear Medicine Report Signed Patient: KYLE POWELL MR#: [id number] : 1955 Acct:[id number] Age/Sex: 69 / F ADM Date: 12/24/24 Loc: ID Attending Dr: EM ARZOLA APRN Ordering Physician: EM ARZOLA APRN Date of Service: 12/24/24 Procedure(s): NM cale perf SPECT rest str Accession Number(s): [id number] cc: FARAZ OSMAN ; EM ARZOLA APRN Patient Name: KYLE POWELL MR#: [id number] : 1955 Exam Date: 12/24/2024 Ordering Doctor: EM ARZOLA FINE JEWEL[employer] SALES ASSOCIATE RADIOLOGY REPORT PROCEDURE: NM CALE PERF SPECT REST STR COMPARISON: None. INDICATIONS: PRE PROCEDURE CARDIOVASCULAR EXAM, CONGESTIVE HEART FAILURE TECHNIQUE: Exam Description: Stress/Rest one day protocol gated SPECT Rest Imagin.1 mCi Tc-99m Cardiolite IV on 12/24/2024 Stress Imaging 29.5 mCi Tc-99m Cardiolite IV on 12/24/2024 Exercise Protocol: 0.4 mg Lexiscan given IV Heart Rate (bpm): Rest: 66 Max: 79 PMHR: 52 Blood Pressure: Rest: 146/80 Max: 146/80 Symptoms: Rest and peak stress ECG findings were pending, and the exercise portion of the study was pending per attending physician [facility]. For more details, please see separate cardiac stress test report. FINDINGS: QUALITY OF STUDY: Good PERFUSION DEFECT: LOCATION: Inferolateral SIZE: Small SEVERITY: Mild TYPE: Fixed and likely related to soft tissue attenuation WALL MOTION: LV SIZE: 86 mL. TID / TCD: 1.0 LVEF: Calculated EF 59%. SUMMARY: Myocardial perfusion imaging study is normal CONCLUSION: 1. Myocardial perfusion is normal with soft tissue attenuation 2. Global left ventricular systolic function is normal 3. No evidence of transient ischemic dilatation Dictated by: Garrett Mcdonald M.D. on 12/24/2024 at 14:24 Approved by: Garrett Mcdonald M.D. on 12/24/2024 at 14:27 Dictated By: Garrett Mcdonald M.D. Signed By: 12/24/24 1428 DD/ 1427 TD/TT: Cnc Service Engineer: [facility] Radiology, Radiologi MD jose cruz - 12/24/[address] [place] [address] Nuclear Medicine Report Signed Patient: KYLE POWELL MR#: [id number] : 1955 Acct:[id number] Age/Sex: 69 / F ADM Date: 12/24/24 Loc: [place] Attending Dr: EM ARZOLA APRN Ordering Physician: EM ARZOLA APRN Date of Service: 12/24/24 Procedure(s): NM cale perf SPECT rest str Accession Number(s): [id number] cc: FARAZ OSMAN ; EM ARZOLA APRN Patient Name: KYLE POWELL MR#: [id number] : 1955 Exam Date: 12/24/2024 Ordering Doctor: EM ARZOLA CNP RADIOLOGY REPORT PROCEDURE: NM CALE PERF SPECT REST STR COMPARISON: None. INDICATIONS: PRE PROCEDURE CARDIOVASCULAR EXAM, CONGESTIVE HEART FAILURE TECHNIQUE: Exam Description: Stress/Rest one day protocol gated SPECT Rest Imagin.1 mCi Tc-99m Cardiolite IV on 12/24/2024 Stress Imaging 29.5 mCi Tc-99m Cardiolite IV on 12/24/2024 Exercise Protocol: 0.4 mg Lexiscan given IV Heart Rate (bpm): Rest: 66 Max: 79 PMHR: 52 Blood Pressure: Rest: 146/80 Max: 146/80 Symptoms: Rest and peak stress ECG findings were pending, and the exercise portion of the study was pending per attending physician [facility]. For more details, please see separate cardiac stress test report. FINDINGS: QUALITY OF STUDY: Good PERFUSION DEFECT: LOCATION: Inferolateral SIZE: Small SEVERITY: Mild TYPE: Fixed and likely related to soft tissue attenuation WALL MOTION: LV SIZE: 86 mL. TID / TCD: 1.0 LVEF: Calculated EF 59%. SUMMARY: Myocardial perfusion imaging study is normal CONCLUSION: 1. Myocardial perfusion is normal with soft tissue attenuation 2. Global left ventricular systolic function is normal 3. No evidence of transient ischemic dilatation Dictated by: Garrett Mcdonald M.D. on 12/24/2024 at 14:24 Approved by: Garrett Mcdonald M.D. on 12/24/2024 at 14:27 Dictated By: Garrett Mcdonald M.D. Signed By: 12/24/24 142 DD/ 26 TD/TT: Cnc Service Engineer: [facility] Radiology Study observation (narrative) [facility] NM CALE PERF SPECT REST STROr dered By: Radiologist Radiology on 12-24-2024 [facility] Work Phone: Laboratory - Hematology and Cell countson 12-22-2024 HbA1c (Bld) [Mass fraction] 7.1 % [facility] No Panel Informationon 12-22 [facility] Office Visiton 12-11-2024 Follow-up visit [id number] Jostin Powell 1955 F Date Provider Department Center 12/11/2024 166-EM ARZOLA CARD Yasir Hos No family history on file Level of Service:82635 [place] OFFICE/OUTPATIENT ESTABLISHED MOD MDM 30 MIN Reason for Visit and Comments: Coronary Artery Disease [187] Pre-op Exam [339168] Normal [facility] Office Visiton 11-26-2024 Follow-up visit [id number] Jostin Powell 1955 F Date Provider Department Center 11/26/2024 266-CLAUDIA DIAZ MP ORTHO MPORTHO No family history on file Level of Service:09919 [place] OFFICE/OUTPATIENT NEW MODERATE MDM 45 MINUTES (GC) Reason for Visit and Comments: Pain [136] Normal [facility] 36on 10-21-2024 36 Patient called to schedule a new patient appointment with our office. Patient wants to be seen for: Lumbar spine Patient had MRI done at [facility] Patient has Not had any surgery or procedures on this body part Patient has not been seen by any other orthopaedic surgeons for this issue This appointment IS NOT related to a work related injury Normal [facility] MR LUMBAR SPINE WO CONTRASTo n 09-12-2024 [...] *Reduce amlodipine t o 5mg daily Normal [facility] Laboratory - Hematology and Cell countson 09-10-2024 HbA1c (Bld) [Mass fraction] 7.7 % [facility] No Panel Informationon 09-10 [facility] Office Visiton 09-10-2024 Follow-up visit [id number] Jostin Powell 1955 F Date Provider Department Center 09/10/2024 Lita-EM ARZOLA CARD Yasir Hos No family history on file Level of Service:32777 [place] OFFICE/OUTPATIENT ESTABLISHED MOD MDM 30 MIN Reason for Visit and Comments: Fall [836099] Extremity Weakness [205306] Normal [facility] No Panel Informationon 07-09 Darrel Edwards NP 07/25/2024 11:09 PM Ear Cerumen Removal Date/Time: 07/09/2024 2:48 PM Performed by: Darrel Edwards NP Authorized by: Darrel Edwards NP Consent: Consent obtained: Verbal Consent given by: Patient Risks, benefits, and alternatives were discussed: yes Risks discussed: Bleeding, infection, pain, dizziness, incomplete removal and TM perforation Alternatives discussed: Alternative treatment [place] protocol: Procedure explained and questions answered to patient or proxy's satisfaction: yes Procedure details: Location: L ear Procedure type: irrigation Procedure type comment: Alternating with irrigation and use of curette Post-procedure details: Inspection: Bleeding, macerated skin and TM intact Hearing quality: Improved Procedure completion: Tolerated well, no immediate complications [facility] Laboratory - Hematology and Cell countson 06-11-2024 HbA1c (Bld) [Mass fraction] 7.1 % [facility] No Panel Informationon 06-11 [facility] Progress Note - Nutritionon 03-04-2024 Progress Note [...] Her referral is good for one year. [facility] Physician Referralon 024 Physician Referral [id number]#1.00TIFF [facility] Progress Note - Nutritionon [...] added sugars in detail. F/U in January. [facility] Diabetic Self Management Edu cationon 11-09-2023 Diabetic Self Management Education [id number]#1.00TIFF [facility] Consent for Treatmenton Consent for Treatment [id number]#1.00TIFF [facility] Physician Orderon 10-10-2023 Physician Order [id number]#1.00TIFF [facility] AMYLASEon 02-14-2023 Amylase [Catalytic activity/Vol] 39 U/L Normal 25-115 [facility] Comment on above: Performed By: #### C KAROLINE KAT LIPA ####[facility] [address] [place], [place] [address]LgDr. Manuel Reed CBC AUTO DIFFon 02-14-2023 BASO # 0.0 103/ul Normal 0.0-0.1 [facility] Comment on above: Performed By: #### C BC #### [facility] [id number] Manuel Reed Basophils/100 WBC (Bld) 0.5 % Normal 0.2-2.0 [facility] Comment on above: Performed By: #### C BC #### [facility] [address] [address] [address] Manuel Reed EO # 0.3 103/ul Normal 0.0-0.7 [facility] Comment on above: Performed By: #### C BC #### [facility] [address] [address] [address] Manuel Reed Eosinophils/100 WBC (Bld) 3.8 % Normal 0.9-7.0 [facility] Comment on above: Performed By: #### C BC #### [facility] [address] [address] [address] Manuel Reed Erythrocyte distribution width (RBC) [Ratio] 12.9 % Normal 11.0-15.0 [facility] Comment on above: Performed By: #### C BC #### [facility] [address] [address] [address] Manuel Reed Hematocrit (Bld) [Volume fraction] 43.2 % Normal 36.0-48.0 [facility] Comment on above: Performed By: #### C BC #### [facility] [id number] Manuel Reed Hemoglobin (Bld) [Mass/Vol] 14.2 g/dL Normal 12.0-16.0 [facility] Comment on above: Performed By: #### C BC #### [facility] [address] [place] [address] Dr. Manuel Reed IG # 0.02 10e3/ul Normal 0.00-0.03 [facility] Comment on above: Performed By: #### C BC #### [facility] [address] [place] [address] Dr. Manuel Reed IG % 0.3 % Normal 0.0-0.5 [facility] Comment on above: Performed By: #### C BC #### [facility] [address] [place] [address] Dr. Manuel Reed LYMPH # 2.9 103/ul Normal 1.2-3.8 [facility] Comment on above: Performed By: #### C BC #### [facility] [address] [place] [address] Dr. Manuel Reed Lymphocytes/100 WBC (Bld) 39.5 % Normal 20.5-60.0 [facility] Comment on above: Performed By: #### C BC #### [facility] [address] [place] [address] Dr. Manuel Reed MANUAL DIFF REQ NO Normal [facility] Comment on above: Performed By: #### C BC #### [facility] [address] [place] [address] Dr. Manuel Reed MCH (RBC) [Entitic mass] 29.5 pg Normal 26.7-34.0 [facility] Comment on above: Performed By: #### C BC #### [facility] [address] [place] [address] Dr. Manuel Reed MCHC (RBC) [Mass/Vol] 32.9 g/dL Normal 29.9-35.2 [facility] Comment on above: Performed By: #### C BC #### [facility] [address] [place] [address] Dr. Manuel Reed MCV (RBC) [Entitic vol] 89.8 fL Normal 81.0-99.0 [facility] Comment on above: Performed By: #### C BC #### [facility] [address] [place] [address] Dr. Manuel Reed MONO # 0.7 103/ul Normal 0.3-0.8 [facility] Comment on above: Performed By: #### C BC #### [facility] [address] [place] [address] Dr. Manuel Reed Monocytes/100 WBC (Bld) 10.1 % Normal 1.7-12.0 [facility] Comment on above: Performed By: #### C BC #### [facility] [address] [place] [address] Dr. Manuel Reed NEUT # 3.4 103/ul Normal 1.4-6.5 [facility] Comment on above: Performed By: #### C BC #### [facility] [address] [place] [address] Dr. Manuel Reed Neutrophils/100 WBC (Bld) 45.8 % Normal 43.0-75.0 [facility] Comment on above: Performed By: #### C BC #### [facility] [address] [place] [address] Dr. Manuel Reed Platelet mean volume (Bld) [Entitic vol] 10.6 fL Normal 9.5-13.5 [facility] Comment on above: Performed By: #### C BC #### [facility] [address] [place] [address] Dr. Manuel Reed PLT 259 103/ul Normal 150-450 [facility] Comment on above: Performed By: #### C BC #### [facility] [address] [place] [address] Dr. Manuel Reed RBC 4.81 106/ul Normal 4.20-5.40 [facility] Comment on above: Performed By: #### C BC #### [facility] [address] [place] [address] Dr. Manuel Reed WBC 7.4 103/ul Normal 4.0-11.0 [facility] Comment on above: Performed By: #### C BC #### [facility] [address] [place] [address] ABD/PELV Jeannie Patterson 02-15-[address] ABD/PELV W CON EXAMINATION: [...] DIANA BUI Date: 2023-02-14 02:48 Normal [facility] ER URINE PROFILEon 3 Bilirubin Ql (U) Negative Normal NEGATIVE [facility] Comment on above: Performed By: #### U MICRO, ERUR #### [facility] [address] [address] [address] Manuel Reed Clarity (U) CLEAR Normal CLEAR [facility] Comment on above: Performed By: #### U MICRO, ERUR #### [facility] [address] [address] [address] Manuel Reed Color (U) LT. YELLOW Normal YELLOW [facility] Comment on above: Performed By: #### U MICRO, ERUR #### [facility] [address] [address] [address] Manuel Reed ERUAHD A micrscopic examina tion will be performed if indicated. Normal [facility] Comment on above: Performed By: #### U MICRO, ERUR #### [facility] [address] [place] [address] Dr. Manuel Reed Glucose Ql (U) 1000 mg/dl Abnormal NEGATIVE [facility] Comment on above: Performed By: #### U MICRO, ERUR #### [facility] [address] [address] [address] Manuel Reed Hemoglobin Ql (U) LARGE Abnormal NEGATIVE [facility] Comment on above: Performed By: #### U MICRO, ERUR #### [facility] [address] [address] [address] Manuel Reed Ketones Ql (U) Negative Normal NEGATIVE [facility] Comment on above: Performed By: #### U MICRO, ERUR #### [facility] [address] [address] [address] Manuel Reed LEUKOCYTES TRACE Abnormal NEGATIVE [facility] Comment on above: Performed By: #### U MICRO, ERUR #### [facility] [address] [address] [address] Manuel Reed Nitrite Ql (U) Negative Normal NEGATIVE [facility] Comment on above: Performed By: #### U MICRO, ERUR #### [facility] [address] [place] [address] Dr. Manuel Reed pH (U) 5.5 [pH] Normal 5-9 [facility] Comment on above: Performed By: #### U MICRO, ERUR #### [facility] [address] [address] [address] Manuel Reed SPEC GRAVITY 1.015 Normal 1.005-<=1.0 25 [facility] Comment on above: Performed By: #### U MICRO, ERUR #### [facility] [address] [address] [address] Manuel Reed UA PROTEIN Negative Normal NEGATIVE/ TRACE [facility] Comment on above: Performed By: #### U MICRO, ERUR #### [facility] [address] [address] [address] Manuel Reed UR MICRO IND INDICATED Normal [facility] Comment on above: Performed By: #### U MICRO, ERUR #### [facility] [address] [place] [address] Dr. Manuel Reed Urobilinogen Qn (U) 0.2 {Seven'U}/dL Normal 0.2 - 1. 0 [facility] Comment on above: Performed By: #### U MICRO, ERUR #### [facility] [address] [place] [address] Dr. Manuel Reed LACTATE/LACTIC ACIDon 2022 Lactate [Moles/Vol] 2.5 mmol/L Critically high 0.4-2.0 [facility] Comment on above: Performed By: #### L ACT #### [facility] [address] [place] [address] Dr. Manuel Reed LIPASEon 02-14-2023 Lipase [Catalytic activity/Vol] 167.0 U/L Normal 73.0-393.0 [facility] Comment on above: Performed By: #### C MP, KAROLINE, LIPA ####[facility] [address] [address]Dr. Manuel Reed PROF 14(COMP METB)on 023 Albumin [Mass/Vol] 3.2 g/dL Critically low 3.4-5.0 [facility] Comment on above: Performed By: #### C MP, KAROLINE, LIPA ####[facility] [address] [address]Dr. Manuel Reed Albumin/Globulin [Mass ratio] 0.8 {ratio} Normal [facility] Comment on above: Performed By: #### C KAROLINE KAT LIPA ####[facility] [address] [address]Dr. Manuel Reed ALP [Catalytic activity/Vol] 113 U/L Normal 46-116 [facility] Comment on above: Performed By: #### C KAROLINE KAT LIPA ####[facility] [address] [address]Dr. Manuel Reed ALT [Catalytic activity/Vol] 42 U/L Normal 14-59 [facility] Comment on above: Performed By: #### C KAROLINE KAT LIPA ####[facility] [address] [address]Dr. Manuel Reed Anion gap [Moles/Vol] 16.1 mmol/L Normal [facility] Comment on above: Performed By: #### C KAROLINE KAT LIPA ####[facility] [address] [address]Dr. Manuel Reed AST [Catalytic activity/Vol] 21 U/L Normal 15-37 [facility] Comment on above: Performed By: #### C KAROLINE KAT LIPA ####[facility] [address] [address]Dr. Manuel Reed Bilirubin [Mass/Vol] 0.2 mg/dL Normal 0.2-1.0 [facility] Comment on above: Performed By: #### C KAROLINE KAT, LIPA ####[facility] [address] [address]Dr. Manuel Reed Calcium [Mass/Vol] 9.3 mg/dL Normal 8.5-10.1 [facility] Comment on above: Performed By: #### C KAROLINE KAT, LIPA ####[facility] [address] [address]Dr. Tricarlos Reed Chloride [Moles/Vol] 102 mmol/L Normal 98-107 [facility] Comment on above: Performed By: #### C KAROLINE KAT LIPA ####[facility] [address] [address]Dr. Manuel Reed CO2 [Moles/Vol] 26.5 mmol/L Normal 21.0-32.0 [facility] Comment on above: Performed By: #### C MP, KAROLINE, LIPA ####[facility] [address] [address]Dr. Manuel Reed Creatinine [Mass/Vol] 1.15 mg/dL Critically high 0.55-1.02 [facility] Comment on above: Performed By: #### C MP, KAROLINE, LIPA ####[facility] [address] [address]Dr. Manuel Reed EGFR-AF LEBANESE 57 mL/min/1.73m2 Critically low >=60 [facility] Comment on above: Performed By: #### C MP, KAROLINE, LIPA ####[facility] [address] [place], [place] [address]Dr. Manuel Reed EGFR-NON AF LEBANESE 47 mL/min/1.73m2 Critically low >=60 [facility] Comment on above: Performed By: #### C MP, KAROLINE, LIPA ####[facility] [address] [place], [place] [address]Dr. Manuel Reed Globulin (S) [Mass/Vol] 4.2 g/dL Normal [facility] Comment on above: Performed By: #### C MP, KAROLINE, LIPA ####[facility] [address] [address]Dr. Manuel Reed Glucose [Mass/Vol] 396 mg/dL Critically high 74-106 [facility] Comment on above: Performed By: #### C MP, KAROLINE, LIPA ####[facility] [address] [place], [place] [address]Dr. Manuel Reed Potassium [Moles/Vol] 4.6 mmol/L Normal 3.5-5.1 [facility] Comment on above: Performed By: #### C MP, KAROLINE, LIPA ####[facility] [address] [address]Dr. Manuel Reed Protein [Mass/Vol] 7.4 g/dL Normal 6.4-8.2 [facility] [place] [facility] Comment on above: Performed By: #### C KAROLINE KAT LIPA ####[facility] [address] [address]Dr. Manuel Reed Sodium [Moles/Vol] 140 mmol/L Normal 136-145 [facility] [place] [facility] Comment on above: Performed By: #### C KAROLINE KAT LIPA ####[facility] [address] [place], [place] [address]Dr. Manuel Reed Urea nitrogen [Mass/Vol] 21.0 mg/dL Critically high 7.0-18.0 [facility] Comment on above: Performed By: #### C KAROLINE KAT LIPA ####[facility] [address] [place], [place] [address]Dr. Manuel Reed Urea nitrogen/Creatinine [Mass ratio] 18.3 mg/mg Normal [facility] Comment on above: Performed By: #### C KAROLINE KAT LIPA ####[facility] [address] [place], [place] [address]Dr. Manuel Reed PROTIMEon 02-14-2023 INR Coag (PPP) [Relative time] 0.97 {INR} Normal [facility] Comment on above: Performed By: #### P TT, PT ####[facility] [address] [place], [place] [address]Dr. Manuel Reed INR GUIDELINES SEE BELOW Normal [facility] Comment on above: Result Comment: AKHIL RED INR: 2.0 - 3.0 CONDITIONS NOT LISTED BELOW 2.5 - 3.5 FOR PROSTHETIC HEART VALVE REPLACEMENT 2.5 - 3.5 RECURRENT THROMBOSIS Performed By: #### P TT, PT ####[facility] [address] [place], [place] [address]Dr. Manuel Reed PT Coag (PPP) [Time] 10.3 s Normal 9.0-11.6 [facility] Comment on above: Performed By: #### P TT, PT ####[facility] [address] [place], [place] [address]Dr. Manuel Reed PTTon 02-14-2023 aPTT Coag (Bld) [Time] 25.7 s Normal 22.3-36.2 [facility] Comment on above: Performed By: #### P TT, PT ####[facility] [address] [address]Dr. Manuel Reed URINE MICROSCOPIC ONLYon BACTERIA TRACE Abnormal NONE SEEN [facility] Comment on above: Performed By: #### U MICRO, ERUR #### [facility] [address] [address] [address] Manuel Reed Bacteria identified Cx Nom (U) NOT INDICATED Normal [facility] Comment on above: Performed By: #### U MICRO, ERUR #### [facility] [address] [place] [address] Dr. Manuel Reed CAST NONE SEEN Normal NONE SEEN [facility] Comment on above: Performed By: #### U MICRO, ERUR #### [facility] [address] [address] [address] Manuel Reed Crystals LM Nom (Urine sed) NONE SEEN Normal NONE SEEN [facility] Comment on above: Performed By: #### U MICRO, ERUR #### [facility] [address] [address] [address] Manuel Reed Epithelial cells LM Ql (Urine sed) RARE Normal NONE SEEN /RARE [facility] Comment on above: Performed By: #### U MICRO, ERUR #### [facility] [address] [address] [address] Manuel Reed MUCOUS NONE SEEN Normal NONE SEEN [facility] Comment on above: Performed By: #### U MICRO, ERUR #### [facility] [address] [address] [address] Manuel Reed RBC 0-2 Normal 0-2 [facility] Comment on above: Performed By: #### U MICRO, ERUR #### [facility] [address] [place] [address] Dr. Manuel Reed WBC 0-2 Abnormal NONE SEEN [facility] Comment on above: Performed By: #### U MICRO, ERUR #### [facility] [address] [address] [address] Manuel Reed MG MAMM DIAGNOSTIC 3D TIFFANY CA Don 01-04-2023 MG MAMM DIAGNOSTIC 3D TIFFANY CAD Patient: KYLE POWELL Exam Date: 01/04/2023 : 1955 Gender:F Ordering : DR FARAZ OSMAN M.D. Admission #: [id number] Family : Order #: [id number] CLICK HERE TO VIEW EXAM RADIOLOGY REPORT [...] colon cancer at age 60. LOCATION: [facility] BREAST COMPOSITION: Scattered areas fibroglandular density. [...] M.D. on 01/04/2023 at 14:48 Normal [facility] NM STRESS/REST MULTIon 11-06 NM STRESS/REST MULTI Patient: HOLLI POWELL Exam Date: 11/06/2022 : 1955 Gender:F Ordering : DR GARRETT MCDONALD M.D. Admission #: [id number] Family : DR FARAZ OSMAN M.D. Order #: [id number] CLICK HERE TO VIEW EXAM RADIOLOGY REPORT [...] MD on 11/07/2022 at 08:12 Normal [facility] CBC AUTO DIFFon 05-29-2022 BASO # 0.0 103/ul Normal 0.0-0.1 [facility] Comment on above: Performed By: #### C BC ####[facility] [address] [place], [place] [address]AlScott Reed Basophils/100 WBC (Bld) 0.3 % Normal 0.2-2.0 [facility] Comment on above: Performed By: #### C BC ####[facility] [address] [place], [place] [address]LfScott Reed EO # 0.2 103/ul Normal 0.0-0.7 [facility] Comment on above: Performed By: #### C BC ####[facility] [address] [id number]. Manuel Reed Eosinophils/100 WBC (Bld) 3.1 % Normal 0.9-7.0 [facility] Comment on above: Performed By: #### C BC ####[facility] [address] [place], [place] [address]Dr. Manuel Reed Erythrocyte distribution width (RBC) [Ratio] 13.0 % Normal 11.0-15.0 [facility] Comment on above: Performed By: #### C BC ####[facility] [address] [place], [place] [address]Dr. Manuel Reed Hematocrit (Bld) [Volume fraction] 42.5 % Normal 36.0-48.0 [facility] Comment on above: Performed By: #### C BC ####[facility] [address] [place], [place] [address]Dr. Manuel Reed Hemoglobin (Bld) [Mass/Vol] 13.8 g/dL Normal 12.0-16.0 [facility] Comment on above: Performed By: #### C BC ####[facility] [address] [place], [place] [address]Dr. Manuel Reed IG # 0.02 10e3/ul Normal 0.00-0.03 [facility] [facility] Comment on above: Performed By: #### C BC ####[facility] [address] [place], [place] [address]Dr. Manuel Reed IG % 0.3 % Normal 0.0-0.5 [facility] Comment on above: Performed By: #### C BC ####[facility] [address] [place], [place] [address]Dr. Manuel Reed LYMPH # 2.5 103/ul Normal 1.2-3.8 [facility] Comment on above: Performed By: #### C BC ####[facility] [address] [place], [place] [address]Dr. Manuel Reed Lymphocytes/100 WBC (Bld) 38.2 % Normal 20.5-60.0 [facility] Comment on above: Performed By: #### C BC ####[facility] [address] [place] [id number]. Manuel Reed MANUAL DIFF REQ NO Normal [facility] Comment on above: Performed By: #### C BC ####[facility] [address] [place] [id number]. Manuel Reed MCH (RBC) [Entitic mass] 29.9 pg Normal 26.7-34.0 [facility] Comment on above: Performed By: #### C BC ####[facility] [address] [place] [address]Dr. Manuel Reed MCHC (RBC) [Mass/Vol] 32.5 g/dL Normal 29.9-35.2 [facility] Comment on above: Performed By: #### C BC ####[facility] [address] [place], [place] [address]Dr. Manuel Reed MCV (RBC) [Entitic vol] 92.0 fL Normal 81.0-99.0 [facility] Comment on above: Performed By: #### C BC ####[facility] [address] [place], [place] [address]Dr. Manuel Reed MONO # 0.6 103/ul Normal 0.3-0.8 [facility] Comment on above: Performed By: #### C BC ####[facility] [address] [place] [address]Dr. Manuel Reed Monocytes/100 WBC (Bld) 8.9 % Normal 1.7-12.0 [facility] Comment on above: Performed By: #### C BC ####[facility] [address] [place], [place] [address]DrScott Reed NEUT # 3.2 103/ul Normal 1.4-6.5 [facility] Comment on above: Performed By: #### C BC ####[facility] [address] [place], [place] [address]Dr. Manuel Reed Neutrophils/100 WBC (Bld) 49.2 % Normal 43.0-75.0 [facility] Comment on above: Performed By: #### C BC ####[facility] [address] [place] [id number] Reed Platelet mean volume (Bld) [Entitic vol] 10.8 fL Normal 9.5-13.5 [facility] Comment on above: Performed By: #### C BC ####[facility] [address] [place] [id number] Reed PLT 203 103/ul Normal 150-450 [facility] Comment on above: Performed By: #### C BC ####[facility] [address] [place] [id number]. Manuel Reed RBC 4.62 106/ul Normal 4.20-5.40 [facility] Comment on above: Performed By: #### C BC ####[facility] [address] [place] [id number]. Manuel Reed WBC 6.6 103/ul Normal 4.0-11.0 [facility] Comment on above: Performed By: #### C BC ####[facility] [address] [place] [id number]. Manuel Reed PROF 14(COMP METB)on 022 Albumin [Mass/Vol] 3.5 g/dL Normal 3.4-5.0 [facility] Comment on above: Performed By: #### C NORTH HSTROPN #### [facility] [address] [place] [address] [address] Manuel Reed Albumin/Globulin [Mass ratio] 0.8 {ratio} Normal [facility] Comment on above: Performed By: #### C NORTH HSTROPN #### [facility] [address] [place] [address] [address] Manuel Reed ALP [Catalytic activity/Vol] 81 U/L Normal 46-116 [facility] Comment on above: Performed By: #### C NORTH HSTROPN #### [facility] [address] [place] [address] [address] Manuel Reed ALT [Catalytic activity/Vol] 38 U/L Normal 14-59 [facility] Comment on above: Performed By: #### C MP, HSTROPN #### [facility] [address] [place] [address] [address] Manuel Reed Anion gap [Moles/Vol] 13.0 mmol/L Normal [facility] Comment on above: Performed By: #### C MP, HSTROPN #### [facility] [address] [place] [address] [address] Manuel Reed AST [Catalytic activity/Vol] 25 U/L Normal 15-37 [facility] Comment on above: Performed By: #### C NORTH, HSTROPN #### [facility] [address] [place] [address] Dr. Manuel Reed Bilirubin [Mass/Vol] 0.3 mg/dL Normal 0.2-1.0 [facility] Comment on above: Performed By: #### C NORTH, HSTROPN #### [facility] [address] [place] [address] Dr. Manuel Reed Calcium [Mass/Vol] 9.6 mg/dL Normal 8.5-10.1 [facility] Comment on above: Performed By: #### C NORTH, HSTROPN #### [facility] [address] [place] [address] Dr. Manuel Reed Chloride [Moles/Vol] 101 mmol/L Normal 98-107 [facility] Comment on above: Performed By: #### C MP, HSTROPN #### [facility] [address] [place] [address] Dr. Manuel Reed CO2 [Moles/Vol] 27.1 mmol/L Normal 21.0-32.0 [facility] Comment on above: Performed By: #### C MP, HSTROPN #### [facility] [address] [place] [address] Dr. Manuel Reed Creatinine [Mass/Vol] 0.93 mg/dL Normal 0.55-1.02 [facility] Comment on above: Performed By: #### C MP, HSTROPN #### [facility] [address] [place] [address] [address] Manuel Reed EGFR-AF LEBANESE >60 Normal >=60 [facility] Comment on above: Performed By: #### C NORTH, HSTROPN #### [facility] [address] [place] [address] [address] Manuel Reed EGFR-NON AF LEBANESE =60 Normal >=60 [facility] Comment on above: Performed By: #### C NORTH, HSTROPN #### [facility] [address] [place] [address] [address] Manuel Reed Globulin (S) [Mass/Vol] 4.2 g/dL Normal [facility] Comment on above: Performed By: #### C NORTH, HSTROPN #### [facility] [address] [place] [address] Dr. Manuel Reed Glucose [Mass/Vol] 280 mg/dL Critically high 74-106 [facility] Comment on above: Performed By: #### C NORTH, HSTROPN #### [facility] [address] [place] [address] Dr. Manuel Reed Potassium [Moles/Vol] 4.1 mmol/L Normal 3.5-5.1 [facility] Comment on above: Performed By: #### C NORTH, HSTROPN #### [facility] [address] [place] [address] Dr. Manuel Reed Protein [Mass/Vol] 7.7 g/dL Normal 6.4-8.2 [facility] [place] [facility] Comment on above: Performed By: #### C NORTH, HSTROPN #### [facility] [address] [place] [address] Dr. Manuel Reed Sodium [Moles/Vol] 137 mmol/L Normal 136-145 [facility] [place] [facility] Comment on above: Performed By: #### C NORTH, HSTROPN #### [facility] [address] [place] [address] Dr. Manuel Reed Urea nitrogen [Mass/Vol] 21.0 mg/dL Critically high 7.0-18.0 [facility] Comment on above: Performed By: #### C NORTH, HSTROPN #### [facility] [address] [place] [address] [address] Manuel Reed Urea nitrogen/Creatinine [Mass ratio] 22.6 mg/mg Normal [facility] Comment on above: Performed By: #### C NORTH, HSTROPN #### [facility] [address] [address] [address] Manuel Reed TROPONIN, HIGH SENSITIVITYon 05-29-2022 HSTROP 8.1 pg/mL Normal 4.0-51.3 [facility] Comment on above: Result Comment: CUT- OFF POINTS HAVE BEEN ESTABLISHED BASED ON THE FOURTH UNIVERSAL DEFINITIONS OF MYOCARDIAL INFARCTION. THE UPPER REFERENCE LIMIT (URL) OF TROPONIN, DEFINED THE 99TH PERCENTILE OF cTnI DISTRIBUTION IN A REFERENCE POPULATION, HAS BEEN CONFIRMED THE DECISION THRESHOLD FOR [place] DIAGNOSIS. Performed By: #### C NORTH, HSTROPN #### [facility] [address] [address] [address] Manuel Reed XR RIBS LT PA [...] by: DIAMOND CHAN Date: 2022-05-29 18:37 Normal [facility] PROF CHEM 8 (BAS METB)on Anion gap [Moles/Vol] 14.1 mmol/L Normal [facility] Comment on above: Performed By: #### B MP #### [facility] [address] [address] [address] Manuel Reed Calcium [Mass/Vol] 8.9 mg/dL Normal 8.5-10.1 [facility] Comment on above: Performed By: #### B MP #### [facility] [address] [place] [address] [address] Manuel Reed Chloride [Moles/Vol] 100 mmol/L Normal 98-107 [facility] Comment on above: Performed By: #### B MP #### [facility] [address] [place] [address] [address] Manuel Reed CO2 [Moles/Vol] 26.4 mmol/L Normal 21.0-32.0 [facility] Comment on above: Performed By: #### B MP #### [facility] [address] [address] [address] Manuel Reed Creatinine [Mass/Vol] 0.94 mg/dL Normal 0.55-1.02 [facility] Comment on above: Performed By: #### B MP #### [facility] [address] [place] [address] Dr. Manuel Reed EGFR-AF LEBANESE >60 Normal >=60 [facility] Comment on above: Performed By: #### B MP #### [facility] [address] [place] [address] [address] Manuel Reed EGFR-NON AF LEBANESE 60 mL/min/1.73m2 Normal >=60 [facility] Comment on above: Performed By: #### B MP #### [facility] [address] [place] [address] [address] Manuel Reed Glucose [Mass/Vol] 336 mg/dL Critically high 74-106 [facility] Comment on above: Performed By: #### B MP #### [facility] [address] [place] [address] [address] Manuel Reed Potassium [Moles/Vol] 4.5 mmol/L Normal 3.5-5.1 [facility] Comment on above: Performed By: #### B MP #### [facility] [address] [place] [address] Dr. Manuel Reed Sodium [Moles/Vol] 136 mmol/L Normal 136-145 [facility] Comment on above: Performed By: #### B MP #### [facility] [address] [place] [address] [address] Manuel Reed Urea nitrogen [Mass/Vol] 12.0 mg/dL Normal 7.0-18.0 [facility] Comment on above: Performed By: #### B MP #### [facility] [address] [place], [place] [address] Dr. Manuel Reed Urea nitrogen/Creatinine [Mass ratio] 12.8 mg/mg Normal [facility] Comment on above: Performed By: #### B MP #### [facility] [address] [place], [place] [address] Dr. Manuel Reed Glucose Glucometer (BldC) [M ass/Vol]Ordered By: Jac Hemphill on 12-20-2021 Glucose [Mass/Vol] 181 mg/dL [facility] Comment on above: Random Glucose Refer ence Range is dependent on time and content of last meal. Glucose of more than 200 mg/dL in a nonstressed, ambulatory subject supports the diagnosis of Diabetes Mellitus. No Panel InformationOrdered By: Jac Hemphill on 12-20-2021 Bedside Glucose Comment Glu2: cleaned meter [facility] COVID-19 Positive/NegativeOr dered By: Jac Hemphill on 12-16-2021 SARS-CoV-2 (COVID-19) N gene DUYEN+probe Ql (Resp) Negative Negative [facility] Comment on above: Testing for SARS-CoV -2 by RT-PCRThis test was developed and its performance characteristics determined by [employer] ([employer]) and validated at the [facility]. This test has not been FDA cleared [...] and its performance characteristics determined by [employer] ([employer]) and validated at the [facility]. This test has not been FDA cleared [...] 12-06-2021 Basophils (Bld) [#/Vol] 0.0 10*3/uL 0.0-0.2 [facility] Basophils/100 WBC Auto (Bld) Ordered By: Jac Hemphill on 12-06-2021 Basophils/100 WBC (Bld) 0.4 % [facility] Blood hemoglobin measurement (mass/volume)Ordered By: Jac Hemphill on 12-06-2021 Hemoglobin (Bld) [Mass/Vol] 14.9 g/dL 11.8-15.4 [facility] Blood leukocytes automated c ount (number/volume)Ordered By: Jac Hemphill on 12-06-2021 WBC (Bld) [#/Vol] 9.1 10*3/uL 4.5-11.0 [facility] Creatinine and Glomerular fi ltration rate.predicted panel (S/P/Bld)Ordered By: Jac Hemphill on 12-06-2021 Creatinine [Mass/Vol] 0.75 mg/dL 0.44-1.[address] [facility] Eosinophils Auto (Bld) [#/Vo l]Ordered By: Jac Hemphill on 12-06-2021 Eosinophils (Bld) [#/Vol] 0.2 10*3/uL 0.0-0.45 [facility] Eosinophils/100 WBC Auto (Bl d)Ordered By: Jac Hemphill on 12-06-2021 Eosinophils/100 WBC (Bld) 1.8 % [facility] Erythrocyte distribution wid th Auto (RBC) [Ratio]Ordered By: Jac Hemphill on 12-06-2021 Erythrocyte distribution width (RBC) [Ratio] 13.7 % 11.9-15.3 [facility] Estimated glomerular filtrat ion rate (GFR) non- AmericanOrdered By: Jac Hemphill on 12-06-2021 GFR/1.73 sq M.predicted among non-blacks MDRD (S/P/Bld) [Vol rate/Area] > 60 mL/Min [facility] Hematocrit Auto (Bld) [Volum e fraction]Ordered By: Jac Hemphill on 12-06-2021 Hematocrit (Bld) [Volume fraction] 44.3 % 34.0-46.4 [facility] - Hematology and Cell countsOrdered By: Jac Hemphill on 12-06-2021 Nucleated RBC/100 WBC (Bld) [Ratio] 0.1 % 0-0.5 [facility] Lymphocytes Auto (Bld) [#/Vo l]Ordered By: Jac Hemphill on 12-06-2021 Lymphocytes (Bld) [#/Vol] 2.8 10*3/uL 1.00-4.8 [facility] Lymphocytes/100 WBC Auto (Bl d)Ordered By: Jac Hemphill on 12-06-2021 Lymphocytes/100 WBC (Bld) 30.8 % [facility] MCH Auto (RBC) [Entitic mass ]Ordered By: Jac Hemphill on 12-06-2021 MCH (RBC) [Entitic mass] 30.0 pg 24.7-34.3 [facility] MCHC Auto (RBC) [Mass/Vol]Or dered By: Jac Hemphill on 12-06-2021 MCHC (RBC) [Mass/Vol] 33.8 g/dL 32.0-35.[address] [facility] MCV Auto (RBC) [Entitic vol] Ordered By: Jac Hemphill on 12-06-2021 MCV (RBC) [Entitic vol] 88.9 fL 80-100 [facility] Monocytes Auto (Bld) [#/Vol] Ordered By: Jac Hemphill on 12-06-2021 Monocytes (Bld) [#/Vol] 0.8 10*3/uL 0.0-0.8 [facility] Monocytes/100 WBC Auto (Bld) Ordered By: Jac Hemphill on 12-06-2021 Monocytes/100 WBC (Bld) 8.3 % [facility] Neutrophils Auto (Bld) [#/Vo l]Ordered By: Jac Hemphill on 12-06-2021 Neutrophils (Bld) [#/Vol] 5.4 10*3/uL 1.8-7.7 [facility] Neutrophils/100 WBC Auto (Bl d)Ordered By: Jac Hemphill on 12-06-2021 Neutrophils/100 WBC (Bld) 58.7 % [facility] No Panel InformationOrdered By: Jac Hemphill on 12-06-2021 Estimated GFR () > 60 mL/Min [facility] Comment on above: GFR estimated refere nce range: According to KDOQI guidelines, <60 ml/min/1.73m2 is sufficient to diagnose a patient with chronic kidney disease. Pharmacy Creatinine Clearance (Chem N/A [facility] Platelet mean volume Auto (B ld) [Entitic vol]Ordered By: Jac Hemphill on 12-06-2021 Platelet mean volume (Bld) [Entitic vol] 8.7 fL 6.3-10.7 [facility] Platelets Auto (Bld) [#/Vol] Ordered By: Jac Hemphill on 12-06-2021 Platelets (Bld) [#/Vol] 284 10*3/uL 150-450 [facility] RBC Auto (Bld) [#/Vol]Ordere d By: Jac Hemphill on 12-06-2021 RBC (Bld) [#/Vol] 4.98 10*6/uL 3.60-5.00 [facility] Serum or plasma calcium alis urement (mass/volume)Ordered By: Jac Hemphill on 12-06-2021 Calcium [Mass/Vol] 9.5 mg/dL 8.2-10.2 [facility] Serum or plasma chloride eduardo surement (moles/volume)Ordered By: Jac Hemphill on 12-06-2021 Chloride [Moles/Vol] 96 mmol/L 95-114 [facility] Serum or plasma glucose alis urement (mass/volume)Ordered By: Jac Hemphill on 12-06-2021 Glucose [Mass/Vol] 285 mg/dL 70-100 [facility] Comment on above: ADA recommended [...] on 12-06-2021 Potassium [Moles/Vol] 4.6 mmol/L 3.5-5.[address] [facility] Serum or plasma sodium measu rement (moles/volume)Ordered By: Jac Hemphill on 12-06-2021 Sodium [Moles/Vol] 135 mmol/L 136-146 [facility] Serum or plasma total carbon dioxide measurement (moles/volume)Ordered By: Jac Hemphill on 12-06-2021 CO2 [Moles/Vol] 24.9 mmol/L 22.0-30.0 [facility] Serum or plasma urea nitroge n measurement (mass/volume)Ordered By: Jac Hemphill on 12-06-2021 Urea nitrogen [Mass/Vol] 13 mg/dL 9- [facility] BASIC METABOLIC PANELon 11-01 Calcium mass conc 8.6 mg/dL Normal 8.6-10.3 [facility] Comment on above: Order Comment: No: D o not add to previous draw Performed By: #### [id number] #### [facility] [address] [place] [address], [place] Chloride molar conc 107 mmol/L Normal 98-107 [facility] Comment on above: Order Comment: No: D o not add to previous draw Performed By: #### [id number] #### [facility] [address] [place] [address], [place] CO2 molar conc 26 mmol/L Normal 21-31 [facility] Comment on above: Order Comment: No: D o not add to previous draw Performed By: #### 5 [id number] #### [facility] [address] [place] [address], [place] Creatinine mass conc 0.95 mg/dL Normal 0.60-1.20 [facility] Comment on above: Order Comment: No: D o not add to previous draw Performed By: #### 5 [id number] #### [facility] [address] [place] [address], [place] GFR/1.73 sq M predicted among blacks MDRD vol rate/area (S/P/Bld) mL/min/{1.73_m2} Normal >60 [facility] Comment on above: Order Comment: No: D o not add to previous draw Performed By: #### [id number] #### [facility] [address] [place] [address], [place] GFR/1.73 sq M predicted among non-blacks MDRD vol rate/area (S/P/Bld) 59 ml/min/1.73sq m Abnormal >60 [facility] Comment on above: Order Comment: No: D o not add to previous draw Performed By: #### 5 [id number] #### [facility] [address] [place] [address], [facility] Glucose mass conc 177 mg/dL High 70-100 [facility] Comment on above: Order Comment: No: D o not add to previous draw Performed By: #### 5 [id number] #### [facility] [address] [facility]. [address] Potassium molar conc 3.8 mmol/L Normal 3.5-5.1 [facility] Comment on above: Order Comment: No: D o not add to previous draw Performed By: #### 5 [id number] #### [facility] [address] [facility]. [address] Sodium molar conc 139 mmol/L Normal 136-145 [facility] Comment on above: Order Comment: No: D o not add to previous draw Performed By: #### 5 [id number] #### [facility] [address] [facility]. [address] Urea nitrogen mass conc 13 mg/dL Normal 7-25 [facility] Comment on above: Order Comment: No: D o not add to previous draw Performed By: #### 5 [id number] #### [facility] [address] [facility]. [address] CBC W/DIFFon 11-18-2018 ABS BASOPHILS 0.0 10*3/uL Normal 0.0-0.2 [facility] Comment on above: Order Comment: No: D o not add to previous draw Performed By: #### 5 [id number] #### [facility] [address] [facility]. [address] ABS IMM GRANS 0.1 10*3/uL Normal 0.0-0.2 [facility] Comment on above: Order Comment: No: D o not add to previous draw Performed By: #### 5 [id number] #### [facility] [address] [place] [address], [facility] ABS NEUTROPHILS 3.8 10*3/uL Normal 1.6-7.6 [facility] Comment on above: Order Comment: No: D o not add to previous draw Performed By: #### 5 [id number] #### [facility] [address] [place] [id number], [facility] Basophils #/vol (Bld) 0.3 % Normal 0.0-1.0 [facility] Comment on above: Order Comment: No: D o not add to previous draw Performed By: #### 5 [id number] #### [facility] [address] [place] [address], [facility] Eosinophils #/vol (Bld) 0.3 10*3/uL Normal 0.0-0.5 [facility] Comment on above: Order Comment: No: D o not add to previous draw Performed By: #### 5 [id number] #### [facility] [address] [place] [address], [facility] Eosinophils/100 WBC (Bld) 4.0 % Normal 0.0-6.0 [facility] Comment on above: Order Comment: No: D o not add to previous draw Performed By: #### 5 [id number] #### [facility] [address] [place] [address], [facility] Erythrocyte distribution width Ratio (RBC) 14.3 % Normal 11.5-15.0 [facility] Comment on above: Order Comment: No: D o not add to previous draw Performed By: #### 5 [id number] #### [facility] [address] [place] [address], [facility] Hematocrit Volume Fraction (Bld) 24.7 % Low 36.0-45.0 [facility] Comment on above: Order Comment: No: D o not add to previous draw Performed By: #### 5 [id number] #### [facility] [address] [place] [address], [facility] Hemoglobin mass conc (Bld) 7.9 g/dL Low 12.0-15.0 [facility] Comment on above: Order Comment: No: D o not add to previous draw Performed By: #### 5 [id number] #### [facility] [address] [place] [address], [facility] IMMATURE GRANS 0.8 % Normal 0.0-1.0 [facility] Comment on above: Order Comment: No: D o not add to previous draw Performed By: #### 5 [id number] #### [facility] [address] [place] [address], [facility] Lymphocytes #/vol (Bld) 2.4 10*3/uL Normal 1.2-4.0 [facility] Comment on above: Order Comment: No: D o not add to previous draw Performed By: #### 5 [id number] #### [facility] [address] [facility] [place] [address], [facility] Lymphocytes/100 WBC (Bld) 33.7 % Normal 20.0-45.0 [facility] Comment on above: Order Comment: No: D o not add to previous draw Performed By: #### [id number] #### [facility] [address] [facility] [place] [address], [facility] MCH Entitic mass (RBC) 30.5 pg Normal 27.0-33.0 [facility] Comment on above: Order Comment: No: D o not add to previous draw Performed By: #### 5 [id number] #### [facility] [address] [facility] [place] [address], [facility] MCHC mass conc (RBC) 32.0 g/dL Normal 32.0-35.0 [facility] Comment on above: Order Comment: No: D o not add to previous draw Performed By: #### 5 [id number] #### [facility] [address] [place] [address], [facility] MCV Entitic volume (RBC) 95.4 fL Normal 82.0-98.0 [facility] Comment on above: Order Comment: No: D o not add to previous draw Performed By: #### 5 [id number] #### [facility] [address] [place] [address], [facility] Monocytes #/vol (Bld) 0.6 10*3/uL Normal 0.1-1.0 [facility] Comment on above: Order Comment: No: D o not add to previous draw Performed By: #### 5 [id number] #### [facility] [address] [place] [address], [facility] MONOS 8.7 % Normal 5.0-12.0 [facility] Comment on above: Order Comment: No: D o not add to previous draw Performed By: #### 5 0608 #### [facility] [address] Neutrophils/100 WBC (Bld) 52.5 % Normal 40.0-72.0 [facility] Comment on above: Order Comment: No: D o not add to previous draw Performed By: #### 5 [id number] #### [facility] [address] [place] [address], [facility] Nucleated RBC/100 WBC Ratio (Bld) 0 % Normal 0-0 [facility] Comment on above: Order Comment: No: D o not add to previous draw Performed By: #### 5 0608 #### [facility] [address] [place] [address], [facility] PLAT CNT 312 10*3/uL Normal 150-400 [facility] Comment on above: Order Comment: No: D o not add to previous draw Performed By: #### 5 0608 #### [facility] [address] [place] [address], [facility] RBC #/vol (Bld) 2.59 10*6/uL Low 3.80-5.00 [facility] Comment on above: Order Comment: No: D o not add to previous draw Performed By: #### 5 0608 #### [facility] [address] [place] [address], [facility] WBC #/vol (Bld) 7.23 10*3/uL Normal 4.00-10.60 [facility] Comment on above: Order Comment: No: D o not add to previous draw Performed By: #### 5 0608 #### [facility] [address] [place] [address], [facility] POC GLUCOSE LABon 11-18-2018 Glucose mass conc 200 mg/dL High 70-100 [facility] Comment on above: Performed By: #### 5 0608 #### [facility] [address] [place] [address], [facility] Glucose mass conc 172 mg/dL High 70-100 [facility] Comment on above: Performed By: #### 5 0608 #### [facility] [address] [place] [place] [address], [facility] BASIC METABOLIC PANELon 11-01 Calcium mass conc 8.2 mg/dL Low 8.6-10.3 [facility] Comment on above: Order Comment: No: D o not add to previous draw Performed By: #### 5 0608 #### [facility] [address] [place] [address], [facility] Chloride molar conc 108 mmol/L High 98-107 [facility] Comment on above: Order Comment: No: D o not add to previous draw Performed By: #### 5 0608 #### [facility] [address] [place] [address], [facility] CO2 molar conc 24 mmol/L Normal 21-31 [facility] Comment on above: Order Comment: No: D o not add to previous draw Performed By: #### 5 0608 #### [facility] [address] [place] [address], [facility] Creatinine mass conc 0.93 mg/dL Normal 0.60-1.20 [facility] Comment on above: Order Comment: No: D o not add to previous draw Performed By: #### 5 0608 #### [facility] [address] [place] [address], [place] GFR/1.73 sq M predicted among blacks MDRD vol rate/area (S/P/Bld) mL/min/{1.73_m2} Normal >60 [facility] Comment on above: Order Comment: No: D o not add to previous draw Performed By: #### 5 0608 #### [facility] [address] [place] [address], [facility] GFR/1.73 sq M predicted among non-blacks MDRD vol rate/area (S/P/Bld) mL/min/{1.73_m2} Normal >60 [facility] Comment on above: Order Comment: No: D o not add to previous draw Performed By: #### 5 0608 #### [facility] [address] [place] [address], [place] Glucose mass conc 164 mg/dL High 70-100 [facility] Comment on above: Order Comment: No: D o not add to previous draw Performed By: #### 5 0608 #### [facility] [address] [place] [address], [place] Potassium molar conc 4.0 mmol/L Normal 3.5-5.1 [facility] Comment on above: Order Comment: No: D o not add to previous draw Performed By: #### 5 0608 #### [facility] [address] [place] [address], [place] Sodium molar conc 139 mmol/L Normal 136-145 [facility] Comment on above: Order Comment: No: D o not add to previous draw Performed By: #### 5 0608 #### [facility] [address] [place] [address], [place] Urea nitrogen mass conc 11 mg/dL Normal 7-25 [facility] Comment on above: Order Comment: No: D o not add to previous draw Performed By: #### 5 0608 #### [facility] [address] [facility] [place] [address], [facility] CBC W/DIFFon 11-17-2018 ABS BASOPHILS 0.0 10*3/uL Normal 0.0-0.2 [facility] Comment on above: Order Comment: No: D o not add to previous draw Performed By: #### 5 0608 #### [facility] [address] [facility]. [address] ABS IMM GRANS 0.0 10*3/uL Normal 0.0-0.2 [facility] Comment on above: Order Comment: No: D o not add to previous draw Performed By: #### 5 0608 #### [facility] [address] [facility]. [address] ABS NEUTROPHILS 3.1 10*3/uL Normal 1.6-7.6 [facility] Comment on above: Order Comment: No: D o not add to previous draw Performed By: #### 5 0608 #### [facility] [address] [facility] [place] [address], [facility] Basophils #/vol (Bld) 0.4 % Normal 0.0-1.0 [facility] Comment on above: Order Comment: No: D o not add to previous draw Performed By: #### 5 0608 #### [facility] [address] [facility] [place] [address], [facility] Eosinophils #/vol (Bld) 0.2 10*3/uL Normal 0.0-0.5 [facility] Comment on above: Order Comment: No: D o not add to previous draw Performed By: #### 5 0608 #### [facility] [address] [facility] [place] [address], [facility] Eosinophils/100 WBC (Bld) 3.6 % Normal 0.0-6.0 [facility] Comment on above: Order Comment: No: D o not add to previous draw Performed By: #### 5 0608 #### [facility] [address] [facility]. [address] Erythrocyte distribution width Ratio (RBC) 14.3 % Normal 11.5-15.0 [facility] Comment on above: Order Comment: No: D o not add to previous draw Performed By: #### 5 0608 #### [facility] [address] Hematocrit Volume Fraction (Bld) 24.7 % Low 36.0-45.0 [facility] Comment on above: Order Comment: No: D o not add to previous draw Performed By: #### 5 0608 #### [facility] [address] Hemoglobin mass conc (Bld) 7.8 g/dL Low 12.0-15.0 [facility] Comment on above: Order Comment: No: D o not add to previous draw Performed By: #### 5 0608 #### [facility] [address] [facility]. [address] IMMATURE GRANS 0.4 % Normal 0.0-1.0 [facility] Comment on above: Order Comment: No: D o not add to previous draw Performed By: #### 5 0608 #### [facility] [address] Lymphocytes #/vol (Bld) 2.8 10*3/uL Normal 1.2-4.0 [facility] Comment on above: Order Comment: No: D o not add to previous draw Performed By: #### 5 0608 #### [facility] [address] Lymphocytes/100 WBC (Bld) 41.5 % Normal 20.0-45.0 [facility] Comment on above: Order Comment: No: D o not add to previous draw Performed By: #### 5 0608 #### [facility] [address] [place] [address], [facility] MCH Entitic mass (RBC) 30.6 pg Normal 27.0-33.0 [facility] Comment on above: Order Comment: No: D o not add to previous draw Performed By: #### 5 0608 #### [facility] [address] [facility] [address] MCHC mass conc (RBC) 31.6 g/dL Low 32.0-35.0 [facility] Comment on above: Order Comment: No: D o not add to previous draw Performed By: #### 5 0608 #### [facility] [address] [facility] [address] MCV Entitic volume (RBC) 96.9 fL Normal 82.0-98.0 [facility] Comment on above: Order Comment: No: D o not add to previous draw Performed By: #### 5 0608 #### [facility] [address] [place] [address], [facility] Monocytes #/vol (Bld) 0.6 10*3/uL Normal 0.1-1.0 [facility] Comment on above: Order Comment: No: D o not add to previous draw Performed By: #### 5 0608 #### [facility] [address] MONOS 8.2 % Normal 5.0-12.0 [facility] Comment on above: Order Comment: No: D o not add to previous draw Performed By: #### 5 0608 #### [facility] [address] [facility] Neutrophils/100 WBC (Bld) 45.9 % Normal 40.0-72.0 [facility] Comment on above: Order Comment: No: D o not add to previous draw Performed By: #### 5 0608 #### [facility] [address] [facility]. [address] Nucleated RBC/100 WBC Ratio (Bld) 0 % Normal 0-0 [facility] Comment on above: Order Comment: No: D o not add to previous draw Performed By: #### 5 0608 #### [facility] [address] [facility] [place] [place] [address], [facility] PLAT CNT 311 10*3/uL Normal 150-400 [facility] Comment on above: Order Comment: No: D o not add to previous draw Performed By: #### 5 0608 #### [facility] [address] [facility] [place] [place] [address], [facility] RBC #/vol (Bld) 2.55 10*6/uL Low 3.80-5.00 [facility] Comment on above: Order Comment: No: D o not add to previous draw Performed By: #### 5 0608 #### [facility] [address] [facility] [place] [address], [facility] WBC #/vol (Bld) 6.74 10*3/uL Normal 4.00-10.60 [facility] Comment on above: Order Comment: No: D o not add to previous draw Performed By: #### 5 0608 #### [address] CHEST AND LATERALon 11-17-19 19 CHEST AND LATERAL [facility] Department of Radiology [address] [place] [address] [phone] Patient Name: KYLE POWELL : 1955 Sex: F Age: Race: White Pt. Location: [address] [place] [address] Patient Status: I Ordered Date: 11/17/2018 9:55:00 [...] change. Electronically signed by:Nathan Guan. Transcribed by: [email or web address], User Resident: Electronically Signed by: NATHAN GUAN @ 11/18/2018 07:34 AM Normal [facility] Comment on above: Order Comment: No: D o not add to previous draw POC GLUCOSE LABon 11-17-2018 Glucose mass conc 189 mg/dL High 70-100 [facility] Comment on above: Performed By: #### 5 0608 #### [facility] [address] [place] [address], [facility] Glucose mass conc 140 mg/dL High 70-100 [facility] Comment on above: Performed By: #### 5 0608 #### [facility] [address] [place] [address], [place] Glucose mass conc 175 mg/dL High 70-100 [facility] Comment on above: Performed By: #### 5 0608 #### [facility] [address] [place] [address], [place] Glucose mass conc 183 mg/dL High 70-100 [facility] Comment on above: Performed By: #### 5 0608 #### [facility] [address] [place] [address], [facility] BASIC METABOLIC PANELon 11-01 Calcium mass conc 8.2 mg/dL Low 8.6-10.3 [facility] Comment on above: Order Comment: No: D o not add to previous draw Performed By: #### 5 0608 #### [facility] [address] [place] [address], [place] Chloride molar conc 106 mmol/L Normal 98-107 [facility] Comment on above: Order Comment: No: D o not add to previous draw Performed By: #### 5 0608 #### [facility] [address] [place] [address], [place] CO2 molar conc 26 mmol/L Normal 21-31 [facility] Comment on above: Order Comment: No: D o not add to previous draw Performed By: #### 5 0608 #### [facility] [address] [place] [address], [place] Creatinine mass conc 1.03 mg/dL Normal 0.60-1.20 [facility] Comment on above: Order Comment: No: D o not add to previous draw Performed By: #### 5 0608 #### [facility] [address] [place] [address], [place] GFR/1.73 sq M predicted among blacks MDRD vol rate/area (S/P/Bld) mL/min/{1.73_m2} Normal >60 [facility] Comment on above: Order Comment: No: D o not add to previous draw Performed By: #### 5 0608 #### [facility] [address] [place] [address], [place] GFR/1.73 sq M predicted among non-blacks MDRD vol rate/area (S/P/Bld) 54 ml/min/1.73sq m Abnormal >60 [facility] Comment on above: Order Comment: No: D o not add to previous draw Performed By: #### 5 0608 #### [facility] [address] [place] [address], [place] Glucose mass conc 161 mg/dL High 70-100 [facility] Comment on above: Order Comment: No: D o not add to previous draw Performed By: #### 5 0608 #### [facility] [address] [place] [address], [place] Potassium molar conc 4.4 mmol/L Normal 3.5-5.1 [facility] Comment on above: Order Comment: No: D o not add to previous draw Performed By: #### 5 0608 #### [facility] [address] [place] [address], [place] Sodium molar conc 137 mmol/L Normal 136-145 [facility] Comment on above: Order Comment: No: D o not add to previous draw Performed By: #### 5 0608 #### [facility] [address] [place] [address], [place] Urea nitrogen mass conc 11 mg/dL Normal 7-25 [facility] Comment on above: Order Comment: No: D o not add to previous draw Performed By: #### 5 0608 #### [facility] [address] [place] [address], [place] Calcium mass conc 8.3 mg/dL Low 8.6-10.3 [facility] Comment on above: Order Comment: No: D o not add to previous draw Performed By: #### 5 0608 #### [facility] [address] [place] [address], [place] Chloride molar conc 108 mmol/L High 98-107 [facility] Comment on above: Order Comment: No: D o not add to previous draw Performed By: #### 5 0608 #### [facility] [address] [place] [address], [facility] CO2 molar conc 25 mmol/L Normal 21-31 [facility] Comment on above: Order Comment: No: D o not add to previous draw Performed By: #### 5 0608 #### [facility] [address] [place] [address], [facility] Creatinine mass conc 0.97 mg/dL Normal 0.60-1.20 [facility] Comment on above: Order Comment: No: D o not add to previous draw Performed By: #### 5 0608 #### [facility] [address] [place] [address], [facility] GFR/1.73 sq M predicted among non-blacks MDRD vol rate/area (S/P/Bld) 58 ml/min/1.73sq m Abnormal >60 [facility] Comment on above: Order Comment: No: D o not add to previous draw Performed By: #### 5 0608 #### [facility] [address] [place] [address], [facility] Glucose mass conc 116 mg/dL High 70-100 [facility] Comment on above: Order Comment: No: D o not add to previous draw Performed By: #### 5 0608 #### [facility] [address] [place] [address], [facility] Potassium molar conc 4.0 mmol/L Normal 3.5-5.1 [facility] Comment on above: Order Comment: No: D o not add to previous draw Performed By: #### 5 0608 #### [facility] [address] [place] [address], [place] Sodium molar conc 140 mmol/L Normal 136-145 [facility] Comment on above: Order Comment: No: D o not add to previous draw Performed By: #### 5 0608 #### [facility] [address] [place] [address], [facility] Urea nitrogen mass conc 9 mg/dL Normal 7-25 [facility] Comment on above: Order Comment: No: D o not add to previous draw Performed By: #### 5 0608 #### [facility] [address] CBC COMPLETE BLOOD COUNTon 0 - Erythrocyte distribution width Ratio (RBC) 14.4 % Normal 11.5-15.0 [facility] Comment on above: Order Comment: No: D o not add to previous draw Performed By: #### 5 0608 #### [facility] [address] Hematocrit Volume Fraction (Bld) 24.9 % Low 36.0-45.0 [facility] Comment on above: Order Comment: No: D o not add to previous draw Performed By: #### 5 0608 #### [facility] [address] [place] [address], [facility] Hemoglobin mass conc (Bld) 7.8 g/dL Low 12.0-15.0 [facility] Comment on above: Order Comment: No: D o not add to previous draw Performed By: #### 5 0608 #### [facility] [address] [place] [address], [facility] MCH Entitic mass (RBC) 30.8 pg Normal 27.0-33.0 [facility] Comment on above: Order Comment: No: D o not add to previous draw Performed By: #### 5 0608 #### [facility] [address] [place] [address], [facility] MCHC mass conc (RBC) 31.3 g/dL Low 32.0-35.0 [facility] Comment on above: Order Comment: No: D o not add to previous draw Performed By: #### 5 0608 #### [facility] [address] [place] [address], [facility] MCV Entitic volume (RBC) 98.4 fL High 82.0-98.0 [facility] Comment on above: Order Comment: No: D o not add to previous draw Performed By: #### 5 0608 #### [facility] [address] [place] [address], [facility] Nucleated RBC/100 WBC Ratio (Bld) 0 % Normal 0-0 [facility] Comment on above: Order Comment: No: D o not add to previous draw Performed By: #### 5 0608 #### [facility] [address] [place] [address], [facility] PLAT CNT 302 10*3/uL Normal 150-400 [facility] Comment on above: Order Comment: No: D o not add to previous draw Performed By: #### 5 0608 #### [facility] [address] [place] [address], [facility] RBC #/vol (Bld) 2.53 10*6/uL Low 3.80-5.00 [facility] Comment on above: Order Comment: No: D o not add to previous draw Performed By: #### 5 0608 #### [facility] [address] [place] [address], [facility] WBC #/vol (Bld) 7.31 10*3/uL Normal 4.00-10.60 [facility] Comment on above: Order Comment: No: D o not add to previous draw Performed By: #### 5 0608 #### [facility] [address] [place] [address], [facility] Erythrocyte distribution width Ratio (RBC) 14.6 % Normal 11.5-15.0 [facility] Comment on above: Order Comment: No: D o not add to previous draw Performed By: #### 5 0608 #### [facility] [address] Hemoglobin mass conc (Bld) 7.6 g/dL Low 12.0-15.0 [facility] Comment on above: Order Comment: No: D o not add to previous draw Performed By: #### 5 0608 #### [facility] [address] [place] [address], [facility] MCH Entitic mass (RBC) 30.2 pg Normal 27.0-33.0 [facility] Comment on above: Order Comment: No: D o not add to previous draw Performed By: #### 5 0608 #### [facility] [address] MCHC mass conc (RBC) 30.5 g/dL Low 32.0-35.0 [facility] Comment on above: Order Comment: No: D o not add to previous draw Performed By: #### 5 0608 #### [facility] [address] MCV Entitic volume (RBC) 98.8 fL High 82.0-98.0 [facility] Comment on above: Order Comment: No: D o not add to previous draw Performed By: #### 5 0608 #### [facility] [address] [facility] [place] [address], [facility] PLAT CNT 317 10*3/uL Normal 150-400 [facility] Comment on above: Order Comment: No: D o not add to previous draw Performed By: #### 5 0608 #### [facility] [address] [place] [address], [facility] RBC #/vol (Bld) 2.52 10*6/uL Low 3.80-5.00 [facility] Comment on above: Order Comment: No: D o not add to previous draw Performed By: #### 5 0608 #### [facility] [address] [place] [address], [facility] WBC #/vol (Bld) 7.29 10*3/uL Normal 4.00-10.60 [facility] Comment on above: Order Comment: No: D o not add to previous draw Performed By: #### 5 0608 #### [facility] [address] [place] [address], [facility] HEMATOCRITon 11-16-2018 Hematocrit Volume Fraction (Bld) 25.4 % Low 36.0-45.0 [facility] Comment on above: Order Comment: No: D o not add to previous draw Performed By: #### 5 0608 #### [facility] [address] [place] [address], [facility] HEMOGLOBINon 11-16-2018 Hemoglobin mass conc (Bld) 7.9 g/dL Low 12.0-15.0 [facility] Comment on above: Order Comment: No: D o not add to previous draw Performed By: #### 5 0608 #### [facility] [address] [place] [address], [facility] POC GLUCOSE LABon 11-16-2018 Glucose mass conc 177 mg/dL High 70-100 [facility] Comment on above: Performed By: #### 5 0608 #### [facility] [address] [facility] [place] [address], [facility] Glucose mass conc 155 mg/dL High 70-100 [facility] Comment on above: Performed By: #### 5 0608 #### [facility] [address] [place] [address], [facility] Glucose mass conc 170 mg/dL High 70-100 [facility] Comment on above: Performed By: #### 5 0608 #### [facility] [address] [place] [address], [facility] Glucose mass conc 140 mg/dL High 70-100 [facility] Comment on above: Performed By: #### 5 0608 #### [facility] [address] [place] [address], [facility] BASIC METABOLIC PANELon 11-01 Calcium mass conc 8.4 mg/dL Low 8.6-10.3 [facility] Comment on above: Order Comment: Unkno wn Performed By: #### 8 [id number] #### [facility] [address] [place] [address], [place] Chloride molar conc 110 mmol/L High 98-107 [facility] Comment on above: Order Comment: Unkno wn Performed By: #### 8 [id number] #### [facility] [address] [place] [address], [place] CO2 molar conc 22 mmol/L Normal 21-31 [facility] Comment on above: Order Comment: Unkno wn Performed By: #### 8 [id number] #### [facility] [address] [place] [address], [place] Creatinine mass conc 1.02 mg/dL Normal 0.60-1.20 [facility] Comment on above: Order Comment: Unkno wn Performed By: #### 8 [id number] #### [facility] [address] [place] [address], [place] GFR/1.73 sq M predicted among blacks MDRD vol rate/area (S/P/Bld) mL/min/{1.73_m2} Normal >60 [facility] Comment on above: Order Comment: Unkno wn Performed By: #### 8 [id number] #### [facility] [address] [place] [address], [place] GFR/1.73 sq M predicted among non-blacks MDRD vol rate/area (S/P/Bld) 55 ml/min/1.73sq m Abnormal >60 [facility] Comment on above: Order Comment: Unkno wn Performed By: #### 8 [id number] #### [facility] [address] [place] [address], [place] Glucose mass conc 126 mg/dL High 70-100 [facility] Comment on above: Order Comment: Unkno wn Performed By: #### 8 [id number] #### [facility] [address] Potassium molar conc 3.9 mmol/L Normal 3.5-5.1 [facility] Comment on above: Order Comment: Unkno wn Performed By: #### 8 [id number] #### [facility] [address] [facility] Sodium molar conc 141 mmol/L Normal 136-145 [facility] Comment on above: Order Comment: Unkno wn Performed By: #### 8 [id number] #### [facility] [address] [facility]. [address] Urea nitrogen mass conc 13 mg/dL Normal 7-25 [facility] Comment on above: Order Comment: Unkno wn Performed By: #### 8 [id number] #### [facility] [address] [facility]. [address] CBC W/DIFFon 11-15-2018 ABS BASOPHILS 0.0 10*3/uL Normal 0.0-0.2 [facility] Comment on above: Order Comment: Unkno wn Performed By: #### 8 [id number] #### [facility] [address] [facility]. [address] ABS IMM GRANS 0.1 10*3/uL Normal 0.0-0.2 [facility] Comment on above: Order Comment: Unkno wn Performed By: #### 8 [id number] #### [facility] [address] [facility]. [address] ABS NEUTROPHILS 3.4 10*3/uL Normal 1.6-7.6 [facility] Comment on above: Order Comment: Unkno wn Performed By: #### 8 [id number] #### [facility] [address] [facility]. [address] Basophils #/vol (Bld) 0.4 % Normal 0.0-1.0 [facility] Comment on above: Order Comment: Unkno wn Performed By: #### 8 [id number] #### [facility] [address] [place] [address], [facility] Eosinophils #/vol (Bld) 0.2 10*3/uL Normal 0.0-0.5 [facility] Comment on above: Order Comment: Unkno wn Performed By: #### 8 [id number] #### [facility] [address] [place] [address], [facility] Eosinophils/100 WBC (Bld) 3.4 % Normal 0.0-6.0 [facility] Comment on above: Order Comment: Unkno wn Performed By: #### 8 [id number] #### [facility] [address] [place] [address], [facility] Erythrocyte distribution width Ratio (RBC) 14.6 % Normal 11.5-15.0 [facility] Comment on above: Order Comment: Unkno wn Performed By: #### 8 [id number] #### [facility] [address] [place] [address], [facility] Hematocrit Volume Fraction (Bld) 27.5 % Low 36.0-45.0 [facility] Comment on above: Order Comment: Unkno wn Performed By: #### 8 [id number] #### [facility] [address] [place] [address], [facility] Hemoglobin mass conc (Bld) 8.5 g/dL Low 12.0-15.0 [facility] Comment on above: Order Comment: Unkno wn Performed By: #### 8 [id number] #### [facility] [address] [place] [address], [facility] IMMATURE GRANS 0.8 % Normal 0.0-1.0 [facility] Comment on above: Order Comment: Unkno wn Performed By: #### 8 [id number] #### [facility] [address] [place], [place] [address] Lymphocytes #/vol (Bld) 2.8 10*3/uL Normal 1.2-4.0 [facility] Comment on above: Order Comment: Unkno wn Performed By: #### 8 [id number] #### [facility] [address] Lymphocytes/100 WBC (Bld) 39.6 % Normal 20.0-45.0 [facility] Comment on above: Order Comment: Unkno wn Performed By: #### 8 [id number] #### [facility] [address] [facility]. [address] MCH Entitic mass (RBC) 30.8 pg Normal 27.0-33.0 [facility] Comment on above: Order Comment: Unkno wn Performed By: #### 8 [id number] #### [facility] [address] [facility] [address] MCHC mass conc (RBC) 30.9 g/dL Low 32.0-35.0 [facility] Comment on above: Order Comment: Unkno wn Performed By: #### 8 [id number] #### [facility] [address] [facility]. [address] MCV Entitic volume (RBC) 99.6 fL High 82.0-98.0 [facility] Comment on above: Order Comment: Unkno wn Performed By: #### 8 [id number] #### [facility] [address] [facility]. [address] Monocytes #/vol (Bld) 0.5 10*3/uL Normal 0.1-1.0 [facility] Comment on above: Order Comment: Unkno wn Performed By: #### 8 [id number] #### [facility] [address] [facility]. [address] MONOS 7.6 % Normal 5.0-12.0 [facility] Comment on above: Order Comment: Unkno wn Performed By: #### 8 [id number] #### [facility] [address] [place] [address], [facility] Neutrophils/100 WBC (Bld) 48.2 % Normal 40.0-72.0 [facility] Comment on above: Order Comment: Unkno wn Performed By: #### 8 [id number] #### [facility] [address] [facility] [place] [address], [facility] Nucleated RBC/100 WBC Ratio (Bld) 0 % Normal 0-0 [facility] Comment on above: Order Comment: Unkno wn Performed By: #### 8 [id number] #### [facility] [address] [facility] [place] [address], [facility] PLAT CNT 329 10*3/uL Normal 150-400 [facility] Comment on above: Order Comment: Unkno wn Performed By: #### 8 [id number] #### [facility] [address] [facility] [place] [address], [facility] RBC #/vol (Bld) 2.76 10*6/uL Low 3.80-5.00 [facility] Comment on above: Order Comment: Unkno wn Performed By: #### 8 [id number] #### [facility] [address] [facility] [place] [address], [facility] WBC #/vol (Bld) 7.09 10*3/uL Normal 4.00-10.60 [facility] Comment on above: Order Comment: Unkno wn Performed By: #### 8 [id number] #### [facility] [address] [facility] [place] [address], [facility] HEMOGLOBINon 11-15-2018 Hemoglobin mass conc (Bld) 8.5 g/dL Low 12.0-15.0 [facility] Comment on above: Order Comment: No: D o not add to previous draw Performed By: #### 8 [id number] #### [facility] [address] [place] [address], [facility] MAGNESIUM BLOODon 11-15-2018 Magnesium mass conc 2.0 mg/dL Normal 1.9-2.7 [facility] Comment on above: Order Comment: Valerie fofana Performed By: #### 8 [id number] #### [facility] [address] [facility]. [address] POC GLUCOSE LABon 11-15-2018 Glucose mass conc 168 mg/dL High 70-100 [facility] Comment on above: Performed By: #### 5 0608 #### [facility] [address] [facility]. [address] Glucose mass conc 117 mg/dL High 70-100 [facility] Comment on above: Performed By: #### 5 0608 #### [facility] [address] [facility]. [address] Glucose mass conc 151 mg/dL High 70-100 [facility] Comment on above: Performed By: #### 8 5499 #### [facility] [address] [facility]. [address] Glucose mass conc 143 mg/dL High 70-100 [facility] Comment on above: Performed By: #### 8 5499 #### [facility] [address] PROTHROMBIN TIMEon 9 INR Coag RelTime (PPP) 1.18 {INR} High 0.91-1.16 [facility] Comment on above: Order Comment: Valerie fofana [...] 1995;108:231S-246S. Performed By: #### 8 5499 #### [facility] [address] [facility]. [address] Prothrombin time (PT) Coag time (PPP) 15.0 s High 12.3-14.8 [facility] Comment on above: Order Comment: Unkno wn Result Comment: ALL RESULTS MUST BE INTERPRETED WITH RESPECT TO BLOOD DRAWING ARTIFACT OR DILUTION ERROR OF ANTICOAGULANT AT THE TIME OF SAMPLING. Performed By: #### 8 [id number] #### [facility] [address] [facility]. [address] BASIC METABOLIC PANELon 11-01 Calcium mass conc 8.5 mg/dL Low 8.6-10.3 [facility] Comment on above: Performed By: #### 7 0066 #### [facility] [address] [facility] [place] [address], [facility] Chloride molar conc 108 mmol/L High 98-107 [facility] Comment on above: Performed By: #### 7 0066 #### [facility] [address] [facility] [place] [address], [facility] CO2 molar conc 23 mmol/L Normal 21-31 [facility] Comment on above: Performed By: #### 7 0066 #### [facility] [address] [facility] [place] [address], [facility] Creatinine mass conc 0.84 mg/dL Normal 0.60-1.20 [facility] Comment on above: Performed By: #### 7 0066 #### [facility] [address] [facility] [place] [address], [facility] GFR/1.73 sq M predicted among blacks MDRD vol rate/area (S/P/Bld) mL/min/{1.73_m2} Normal >60 [facility] Comment on above: Performed By: #### 7 0066 #### [facility] [address] [place] [address], [facility] GFR/1.73 sq M predicted among non-blacks MDRD vol rate/area (S/P/Bld) mL/min/{1.73_m2} Normal >60 [facility] Comment on above: Performed By: #### 7 0066 #### [facility] [address] [place] [address], [facility] Glucose mass conc 168 mg/dL High 70-100 [facility] Comment on above: Performed By: #### 7 0066 #### [facility] [address] [place] [address], [facility] Potassium molar conc 3.8 mmol/L Normal 3.5-5.1 [facility] Comment on above: Performed By: #### 7 0066 #### [facility] [address] [place] [address], [facility] Sodium molar conc 140 mmol/L Normal 136-145 [facility] Comment on above: Performed By: #### 7 0066 #### [facility] [address] [place] [address], [facility] Urea nitrogen mass conc 15 mg/dL Normal 7-25 [facility] Comment on above: Performed By: #### 7 0066 #### [facility] [address] [place] [address], [facility] CBC COMPLETE BLOOD COUNTon 0 - Erythrocyte distribution width Ratio (RBC) 14.0 % Normal 11.5-15.0 [facility] Comment on above: Order Comment: No: D o not add to previous draw Performed By: #### 4 1000, 03280, 44794, 77497 #### [facility] [address] Hematocrit Volume Fraction (Bld) 26.1 % Low 36.0-45.0 [facility] Comment on above: Order Comment: No: D o not add to previous draw Performed By: #### 4 1000, 55598, 61522, 14893 #### [facility] [address] [place] [address], [facility] Hemoglobin mass conc (Bld) 8.4 g/dL Low 12.0-15.0 [facility] Comment on above: Order Comment: No: D o not add to previous draw Performed By: #### 4 1000, 80645, 77464, 30586 #### [facility] [address] [facility] [place] [address], [facility] MCH Entitic mass (RBC) 31.1 pg Normal 27.0-33.0 [facility] Comment on above: Order Comment: No: D o not add to previous draw Performed By: #### 4 1000, 87329, 11981, 76856 #### [facility] [address] [facility] [place] [address], [facility] MCHC mass conc (RBC) 32.2 g/dL Normal 32.0-35.0 [facility] Comment on above: Order Comment: No: D o not add to previous draw Performed By: #### 4 1000, 57505, 38508, 39041 #### [facility] [address] [facility] [place] [address], [facility] MCV Entitic volume (RBC) 96.7 fL Normal 82.0-98.0 [facility] Comment on above: Order Comment: No: D o not add to previous draw Performed By: #### 4 1000, 53435, 13417, 65581 #### [facility] [address] [place] [id number], [facility] Nucleated RBC/100 WBC Ratio (Bld) 0 % Normal 0-0 [facility] Comment on above: Order Comment: No: D o not add to previous draw Performed By: #### 4 1000, 34866, 23467, 27521 #### [facility] [address] [place] [address], [facility] PLAT CNT 310 10*3/uL Normal 150-400 [facility] Comment on above: Order Comment: No: D o not add to previous draw Performed By: #### 4 1000, 32348, 66514, 37261 #### [facility] [address] [place] [address], [facility] RBC #/vol (Bld) 2.70 10*6/uL Low 3.80-5.00 [facility] Comment on above: Order Comment: No: D o not add to previous draw Performed By: #### 4 1000, 57196, 15052, 47797 #### [facility] [address] [place] [address], [facility] WBC #/vol (Bld) 6.38 10*3/uL Normal 4.00-10.60 [facility] Comment on above: Order Comment: No: D o not add to previous draw Performed By: #### 4 1000, 34176, 56226, 31844 #### [facility] [address] BRAIN WO CONTRASTon 11-14 CT BRAIN WO CONTRAST [facility] Department of Radiology [address] [place] [id number] Patient Name: KYLE POWELL : 1955 Sex: F Age: Race: White Pt. Location: [address] [place] [address] Patient Status: O Ordered Date: 11/14/2018 3:45:00 [...] findings. Electronically signed by:Cornelius Bennett. Transcribed by: [email or web address], User Resident: CHRISSY SANDOVAL Electronically Signed by: CORNELIUS BENNETT @ 11/15/2018 04:27 PM I personally read this/these film(s) with this resident Normal [facility] Comment on above: Order Comment: No: D o not add to previous draw FOLATE SERUMon 11-14-2018 Folate mass conc 25.00 ng/mL Normal 6.60-1000.0 0 [facility] Comment on above: Order Comment: No: D o not add to previous draw Result Comment: Norm al range reflects World Health Organization International Standard Performed By: #### 7 0066 #### [facility] [address] [place] [address], [facility] HAPTOGLOBINon 11-14-2018 HAPTOGLOBIN 7 mg/dL Low 26-164 [facility] Comment on above: Order Comment: No: D o not add to previous draw Performed By: #### 7 0066 #### [facility] [address] [place] [address], [facility] HEMOGLOBINon 11-14-2018 Hemoglobin mass conc (Bld) 8.1 g/dL Low 12.0-15.0 [facility] Comment on above: Order Comment: No: D o not add to previous draw Performed By: #### 7 0066 #### [facility] [address] [facility] [address] History and Physicalon 11-14 History and Physical MR#: [id number] [facility] Pt. Name: Kyle Powell Admitted: 11/13/2018 Date of : 1955 Attending Physician: Basim Tripathi MD Room #: [id number] Discharge Date: HISTORY AND PHYSICAL CHIEF COMPLAINT: [...] Tripathi MD Date Trans: 11/14/2018 02:17 A/nav DN_[id number] Normal [facility] LDH BLOODon 11-14-2018 LDH 99 Units/L Low 140-271 [facility] Comment on above: Order Comment: No: D o not add to previous draw Performed By: #### 7 0066 #### [facility] [address] [place] [address], [place] POC GLUCOSE LABon 11-14-2018 Glucose mass conc 128 mg/dL High 70-100 [facility] Comment on above: Performed By: #### 8 5499 #### [facility] [address] [place] [address], [place] Glucose mass conc 128 mg/dL High 70-100 [facility] Comment on above: Performed By: #### 8 5499 #### [facility] [address] [place] [address], [place] Glucose mass conc 159 mg/dL High 70-100 [facility] Comment on above: Performed By: #### 7 0066 #### [facility] [address] [place] [address], [place] Glucose mass conc 213 mg/dL High 70-100 [facility] Comment on above: Performed By: #### 4 1000, 68382, 89574, 92319 #### [facility] [address] [place] [address], [place] Glucose mass conc 133 mg/dL High 70-100 [facility] Comment on above: Performed By: #### 4 1000, 28895, 04802, 55417 #### [facility] [address] [place] [address], [facility] Glucose mass conc 111 mg/dL High 70-100 [facility] Comment on above: Performed By: #### 4 1000, 61891, 51855, 70187 #### [facility] [address] [place] [address], [facility] PROTHROMBIN TIMEon 9 INR Coag RelTime (PPP) 1.17 {INR} High 0.91-1.16 [facility] Comment on above: Order Comment: No: [...] 1995;108:231S-246S. Performed By: #### 7 0066 #### [facility] [address] [place] [address], [facility] Prothrombin time (PT) Coag time (PPP) 14.9 s High 12.3-14.8 [facility] Comment on above: Order Comment: No: D o not add to previous draw Result Comment: ALL RESULTS MUST BE INTERPRETED WITH RESPECT TO BLOOD DRAWING ARTIFACT OR DILUTION ERROR OF ANTICOAGULANT AT THE TIME OF SAMPLING. Performed By: #### 7 0066 #### [facility] [address] [facility] [place] [address], [facility] RETICULOCYTE PANELon 019 ABSOLUTE RETICULOCYTE 0.1396 10*6/uL High 0.02 50-0.10 00 [facility] Comment on above: Performed By: #### 7 0066 #### [facility] [address] [facility] [place] [address], [facility] IMMATURE RETICULOCYTE FRACTION 35.3 % High 2.0-16.0 [facility] Comment on above: Performed By: #### 7 0066 #### [facility] [address] [facility] [address] RETIC COUNT 5.17 % High 0.50-1.80 [facility] Comment on above: Performed By: #### 7 0066 #### [facility] [address] [facility] [address] RETICULOCYTE HEMOGLOBIN 36.5 pg High 28.0-36.0 [facility] Comment on above: Performed By: #### 7 0066 #### [facility] [address] [facility] TROPONIN-Ion 11-14-2018 Troponin I.cardiac mass conc 0.12 ng/mL Critically high 0.00-0.04 [facility] Comment on above: Order Comment: No: D o not add to previous draw Result Comment: M-NJ EVIOUS CRITICAL RESULT REFERENCE RANGES: 0.00 - 0.04 ng/ml NORMAL 0.05 - 0.50 ng/ml INDETERMINATE > 0.50 ng/ml CONSISTENT WITH AN M.I. Performed By: #### 8 5499 #### [facility] [address] [place] [address], [facility] Troponin I.cardiac mass conc 0.16 ng/mL Critically high 0.00-0.04 [facility] Comment on above: Result Comment: M-NJ EVIOUS CRITICAL RESULT REFERENCE RANGES: 0.00 - 0.04 ng/ml NORMAL 0.05 - 0.50 ng/ml INDETERMINATE > 0.50 ng/ml CONSISTENT WITH AN M.I. Performed By: #### 7 0066 #### [facility] [address] Troponin I.cardiac mass conc 0.28 ng/mL Critically high 0.00-0.04 [facility] Comment on above: Order Comment: No: D o not add to previous draw Result Comment: M-[place] EVIOUS CRITICAL RESULT REFERENCE RANGES: 0.00 - 0.04 ng/ml NORMAL 0.05 - 0.50 ng/ml INDETERMINATE > 0.50 ng/ml CONSISTENT WITH AN M.I. Performed By: #### 4 1000, 88371, 84149, 69182 #### [facility] [address] [facility] [address] VITAMIN B12on 11-14-2018 Cobalamin (Vitamin B12) mass conc 338 pg/mL Normal 180-914 [facility] Comment on above: Order Comment: No: D o not add to previous draw Result Comment: REFE RENCE RANGES: 180-914 pg/mL Normal 145-179 pg/mL Indeterminate <145 pg/mL Deficient Performed By: #### 7 0066 #### [facility] [address] [facility] [address] BASIC METABOLIC PANELon 12-0 Calcium mass conc 8.7 mg/dL Normal 8.6-10.3 [facility] Comment on above: Order Comment: No: D o not add to previous draw Performed By: #### 4 1000, 84648, 81346, 83054 #### [facility] [address] [facility] [place] [address], [facility] Chloride molar conc 109 mmol/L High 98-107 [facility] Comment on above: Order Comment: No: D o not add to previous draw Performed By: #### 4 1000, 85699, 29604, 03092 #### [facility] [address] [place] [address], [place] CO2 molar conc 24 mmol/L Normal 21-31 [facility] Comment on above: Order Comment: No: D o not add to previous draw Performed By: #### 4 1000, 66171, 13165, 00125 #### [facility] [address] [place] [address], [place] Creatinine mass conc 0.79 mg/dL Normal 0.60-1.20 [facility] Comment on above: Order Comment: No: D o not add to previous draw Performed By: #### 4 1000, 84194, 36420, 87831 #### [facility] [address] [place] [address], [place] GFR/1.73 sq M predicted among blacks MDRD vol rate/area (S/P/Bld) mL/min/{1.73_m2} Normal >60 [facility] Comment on above: Order Comment: No: D o not add to previous draw Performed By: #### 4 1000, 41126, 05670, 47770 #### [facility] [address] [place] [address], [place] GFR/1.73 sq M predicted among non-blacks MDRD vol rate/area (S/P/Bld) mL/min/{1.73_m2} Normal >60 [facility] Comment on above: Order Comment: No: D o not add to previous draw Performed By: #### 4 1000, 91867, 33189, 31570 #### [facility] [address] [place] [address], [place] Glucose mass conc 128 mg/dL High 70-100 [facility] Comment on above: Order Comment: No: D o not add to previous draw Performed By: #### 4 1000, 04452, 34686, 44222 #### [facility] [address] [place] [address], [place] Potassium molar conc 4.3 mmol/L Normal 3.5-5.1 [facility] Comment on above: Order Comment: No: D o not add to previous draw Performed By: #### 4 1000, 40923, 17164, 97504 #### [facility] [address] [place] [address], [facility] Sodium molar conc 140 mmol/L Normal 136-145 [facility] Comment on above: Order Comment: No: D o not add to previous draw Performed By: #### 4 1000, 77536, 52316, 87670 #### [facility] [address] [place] [address], [facility] Urea nitrogen mass conc 23 mg/dL Normal 7-25 [facility] Comment on above: Order Comment: No: D o not add to previous draw Performed By: #### 4 1000, 25681, 78304, 11299 #### [facility] [address] [place] [address], [facility] CBC COMPLETE BLOOD COUNTon 1 11-08-2017 Erythrocyte distribution width Ratio (RBC) 12.6 % Normal 11.5-15.0 [facility] Comment on above: Order Comment: No: D o not add to previous draw Performed By: #### 4 1000, 18087, 31899, 45671 #### [facility] [address] [place] [address], [facility] Hematocrit Volume Fraction (Bld) 35.1 % Low 36.0-45.0 [facility] Comment on above: Order Comment: No: D o not add to previous draw Performed By: #### 4 1000, 21520, 79963, 40706 #### [facility] [address] [place] [address], [facility] Hemoglobin mass conc (Bld) 11.5 g/dL Low 12.0-15.0 [facility] Comment on above: Order Comment: No: D o not add to previous draw Performed By: #### 4 1000, 26311, 21341, 15996 #### [facility] [address] MCH Entitic mass (RBC) 30.6 pg Normal 27.0-33.0 [facility] Comment on above: Order Comment: No: D o not add to previous draw Performed By: #### 4 1000, 74075, 00911, 36471 #### [facility] [address] [facility]. [address] MCHC mass conc (RBC) 32.8 g/dL Normal 32.0-35.0 [facility] Comment on above: Order Comment: No: D o not add to previous draw Performed By: #### 4 1000, 17514, 08439, 81182 #### [facility] [address] MCV Entitic volume (RBC) 93.4 fL Normal 82.0-98.0 [facility] Comment on above: Order Comment: No: D o not add to previous draw Performed By: #### 4 1000, 40032, 60578, 42708 #### [facility] [address] Nucleated RBC/100 WBC Ratio (Bld) 0 % Normal 0-0 [facility] Comment on above: Order Comment: No: D o not add to previous draw Performed By: #### 4 1000, 52805, 96521, 68522 #### [facility] [address] [place] [address], [facility] PLAT CNT 281 10*3/uL Normal 150-400 [facility] Comment on above: Order Comment: No: D o not add to previous draw Performed By: #### 4 1000, 94990, 64592, 90238 #### [facility] [address] [facility] [place] [address], [facility] RBC #/vol (Bld) 3.76 10*6/uL Low 3.80-5.00 [facility] Comment on above: Order Comment: No: D o not add to previous draw Performed By: #### 4 1000, 51014, 48332, 21007 #### [facility] [address] [facility]. [address] WBC #/vol (Bld) 7.49 10*3/uL Normal 4.00-10.60 [facility] Comment on above: Order Comment: No: D o not add to previous draw Performed By: #### 4 1000, 58796, 29871, 56310 #### [facility] [address] [facility] [place] [address], [facility] PHOSPHORUS BLOODon 8 Phosphate mass conc 4.1 mg/dL Normal 2.5-5.0 [facility] Comment on above: Order Comment: No: D o not add to previous draw Performed By: #### 4 1000, 41941, 10240, 96109 #### [facility] [address] [facility]. [address] POC GLUCOSE LABon 09-07-2018 Glucose mass conc 212 mg/dL High 70-100 [facility] Comment on above: Performed By: #### 4 1000, 52923, 19818, 92523 #### [facility] [address] [facility]. [address] Glucose mass conc 132 mg/dL High 70-100 [facility] Comment on above: Performed By: #### 4 1000, 26437, 89696, 47535 #### [facility] [address] [facility] [address] APTTon 09-06-2018 aPTT Coag time (Bld) 28.1 s Normal 25.0-35.0 [facility] Comment on above: Order Comment: No: [...] THIS PURPOSE. Performed By: #### 4 1000, 14615, 05959, 46527 #### [facility] [address] [place] [address], [place] BASIC METABOLIC PANELon 12-0 Calcium mass conc 9.0 mg/dL Normal 8.6-10.3 [facility] Comment on above: Order Comment: No: D o not add to previous draw Performed By: #### 4 1000, 50146, 34784, 90981 #### [facility] [address] [place] [address], [place] Chloride molar conc 104 mmol/L Normal 98-107 [facility] Comment on above: Order Comment: No: D o not add to previous draw Performed By: #### 4 1000, 46176, 25848, 43152 #### [facility] [address] [place] [address], [place] CO2 molar conc 22 mmol/L Normal 21-31 [facility] Comment on above: Order Comment: No: D o not add to previous draw Performed By: #### 4 1000, 27301, 21010, 21746 #### [facility] [address] [place] [address], [place] Creatinine mass conc 0.95 mg/dL Normal 0.60-1.20 [facility] Comment on above: Order Comment: No: D o not add to previous draw Performed By: #### 4 1000, 88497, 47478, 31135 #### [facility] [address] [place] [address], [place] GFR/1.73 sq M predicted among blacks MDRD vol rate/area (S/P/Bld) mL/min/{1.73_m2} Normal >60 [facility] Comment on above: Order Comment: No: D o not add to previous draw Performed By: #### 4 1000, 44125, 21344, 08317 #### [facility] [address] [place] [address], [place] GFR/1.73 sq M predicted among non-blacks MDRD vol rate/area (S/P/Bld) 59 ml/min/1.73sq m Abnormal >60 [facility] Comment on above: Order Comment: No: D o not add to previous draw Performed By: #### 4 1000, 13363, 76543, 32364 #### [facility] [address] [place] [address], [facility] Glucose mass conc 172 mg/dL High 70-100 [facility] Comment on above: Order Comment: No: D o not add to previous draw Performed By: #### 4 1000, 30588, 89007, 55538 #### [facility] [address] [place] [address], [facility] Potassium molar conc 4.3 mmol/L Normal 3.5-5.1 [facility] Comment on above: Order Comment: No: D o not add to previous draw Performed By: #### 4 1000, 80331, 46703, 08993 #### [facility] [address] [place] [address], [facility] Sodium molar conc 135 mmol/L Low 136-145 [facility] Comment on above: Order Comment: No: D o not add to previous draw Performed By: #### 4 1000, 53686, 92863, 72183 #### [facility] [address] [place] [address], [facility] Urea nitrogen mass conc 27 mg/dL High 7-25 [facility] Comment on above: Order Comment: No: D o not add to previous draw Performed By: #### 4 1000, 46193, 52171, 33584 #### [facility] [address] [place] [address], [facility] CBC W/DIFFon 09-06-2018 ABS BASOPHILS 0.0 10*3/uL Normal 0.0-0.2 [facility] Comment on above: Order Comment: No: D o not add to previous draw Performed By: #### 4 1000, 37003, 35863, 53352 #### [facility] [address] ABS IMM GRANS 0.0 10*3/uL Normal 0.0-0.2 [facility] Comment on above: Order Comment: No: D o not add to previous draw Performed By: #### 4 1000, 41876, 60528, 97470 #### [facility] [address] [facility] [place] [address], [facility] ABS NEUTROPHILS 4.3 10*3/uL Normal 1.6-7.6 [facility] Comment on above: Order Comment: No: D o not add to previous draw Performed By: #### 4 1000, 91347, 19648, 80708 #### [facility] [address] [facility]. [address] Basophils #/vol (Bld) 0.3 % Normal 0.0-1.0 [facility] Comment on above: Order Comment: No: D o not add to previous draw Performed By: #### 4 1000, 70138, 83330, 01139 #### [facility] [address] [facility] [place] [address], [facility] Eosinophils #/vol (Bld) 0.2 10*3/uL Normal 0.0-0.5 [facility] Comment on above: Order Comment: No: D o not add to previous draw Performed By: #### 4 1000, 84574, 01667, 94610 #### [facility] [address] [facility] [place] [address], [facility] Eosinophils/100 WBC (Bld) 2.1 % Normal 0.0-6.0 [facility] Comment on above: Order Comment: No: D o not add to previous draw Performed By: #### 4 1000, 63537, 78138, 51845 #### [facility] [address] [place] [address], [facility] Erythrocyte distribution width Ratio (RBC) 12.7 % Normal 11.5-15.0 [facility] Comment on above: Order Comment: No: D o not add to previous draw Performed By: #### 4 1000, 18550, 39290, 09893 #### [facility] [address] [place] [address], [facility] Hematocrit Volume Fraction (Bld) 36.9 % Normal 36.0-45.0 [facility] Comment on above: Order Comment: No: D o not add to previous draw Performed By: #### 4 1000, 73546, 34661, 65501 #### [facility] [address] [place] [address], [facility] Hemoglobin mass conc (Bld) 12.2 g/dL Normal 12.0-15.0 [facility] Comment on above: Order Comment: No: D o not add to previous draw Performed By: #### 4 1000, 80220, 48529, 50335 #### [facility] [address] [place] [address], [facility] IMMATURE GRANS 0.3 % Normal 0.0-1.0 [facility] Comment on above: Order Comment: No: D o not add to previous draw Performed By: #### 4 1000, 56937, 23483, 50075 #### [facility] [address] [facility] [place] [address], [facility] Lymphocytes #/vol (Bld) 3.4 10*3/uL Normal 1.2-4.0 [facility] Comment on above: Order Comment: No: D o not add to previous draw Performed By: #### 4 1000, 02453, 65213, 09412 #### [facility] [address] [place] [id number], [facility] Lymphocytes/100 WBC (Bld) 38.3 % Normal 20.0-45.0 [facility] Comment on above: Order Comment: No: D o not add to previous draw Performed By: #### 4 1000, 96377, 73871, 75828 #### [facility] [address] MCH Entitic mass (RBC) 30.6 pg Normal 27.0-33.0 [facility] Comment on above: Order Comment: No: D o not add to previous draw Performed By: #### 4 1000, 60446, 18402, 82761 #### [facility] [address] MCHC mass conc (RBC) 33.1 g/dL Normal 32.0-35.0 [facility] Comment on above: Order Comment: No: D o not add to previous draw Performed By: #### 4 1000, 86460, 46886, 19046 #### [facility] [address] MCV Entitic volume (RBC) 92.5 fL Normal 82.0-98.0 [facility] Comment on above: Order Comment: No: D o not add to previous draw Performed By: #### 4 1000, 74360, 31927, 11448 #### [facility] [address] Monocytes #/vol (Bld) 0.9 10*3/uL Normal 0.1-1.0 [facility] Comment on above: Order Comment: No: D o not add to previous draw Performed By: #### 4 1000, 16361, 94966, 70428 #### [facility] [address] MONOS 10.0 % Normal 5.0-12.0 [facility] Comment on above: Order Comment: No: D o not add to previous draw Performed By: #### 4 1000, 52916, 23347, 87074 #### [facility] [address] [place] [address], [facility] Neutrophils/100 WBC (Bld) 49.0 % Normal 40.0-72.0 [facility] Comment on above: Order Comment: No: D o not add to previous draw Performed By: #### 4 1000, 59141, 50305, 09231 #### [facility] [address] [facility] [address] Nucleated RBC/100 WBC Ratio (Bld) 0 % Normal 0-0 [facility] Comment on above: Order Comment: No: D o not add to previous draw Performed By: #### 4 1000, 57173, 21444, 69436 #### [facility] [address] [facility] [place] [address], [facility] PLAT CNT 278 10*3/uL Normal 150-400 [facility] Comment on above: Order Comment: No: D o not add to previous draw Performed By: #### 4 1000, 04056, 99235, 59704 #### [facility] [address] [facility] [place] [address], [facility] RBC #/vol (Bld) 3.99 10*6/uL Normal 3.80-5.00 [facility] Comment on above: Order Comment: No: D o not add to previous draw Performed By: #### 4 1000, 78908, 79020, 38992 #### [facility] [address] [facility] [place] [address], [facility] WBC #/vol (Bld) 8.84 10*3/uL Normal 4.00-10.60 [facility] Comment on above: Order Comment: No: D o not add to previous draw Performed By: #### 4 1000, 51696, 28817, 21773 #### [facility] [address] [facility]. [address] Cardiovascular Lab Reporton 09-06-2018 Cardiovascular Lab Report [facility] Patient Name: Sherry [facility] Kyle MR #: [id number] Department of Physician: Yasmine Joseph M.D. Division of Service Date: 09/06/2018 Cardiology Birthdate: 1955 Adult Cardiovascular Room #: [id number] [facility] [address] [place] [address] Cardiovascular Laboratory Report FINAL IMPRESSION: 1. Hemodynamically [...] she was referred for heart catheterization from [facility]. PROCEDURE: 1. Coronary angiography. 2. FFR of LAD. 3. FFR of circumflex. 4. Balloon angioplasty LAD. 5. IC nitroglycerin. 6. Ultrasound-guided access of the ulnar artery. 7. Left heart catheterization. RECOMMENDATION: 1. The patient should be started on isosorbide mononitrate 60 mg on a daily basis. 2. Discontinue heparin and continue post catheterization IV hydration. Case was discussed with the primary home child care provider, Dr. Mcdonald. 3. Follow up with Dr. Mcdonald in 1-2 weeks. METHODS: After risks, benefits, and alternatives were explained to the patient, the patient was brought to catheterization lab in a fasting state. Access was obtained into the right ulnar artery under ultrasound guidance and a 6-Amharic Terumo [place] sheath was placed in right radial artery. 5-Amharic Jl3.5 and JR 5 catheter was used for diagnostic angiography. After angiography was performed, we placed a 6-Amharic XB3 guide for better angiography. At this [...] Cormier M.D. Date Trans: 09/06/2018 11:28 Elisabeth/nav [id number] cc: Faraz Osman M.D. [address] [facility] [address] [place] [id number] Garrett Mcdonald M.D. [address] [facility] [address] Wilmar Morris D.O. [address] [facility] [address] [place] [id number] Normal [facility] MAGNESIUM BLOODon 09-06-2018 Magnesium mass conc 2.0 mg/dL Normal 1.9-2.7 [facility] Comment on above: Order Comment: No: D o not add to previous draw Performed By: #### 4 1000, 37640, 31782, 30033 #### [facility] [address] [place] [address], [facility] PHOSPHORUS BLOODon 8 Phosphate mass conc 5.2 mg/dL High 2.5-5.0 [facility] Comment on above: Order Comment: No: D o not add to previous draw Performed By: #### 4 1000, 11722, 30656, 62865 #### [facility] [address] [place] [address], [place] POC GLUCOSE LABon 09-06-2018 Glucose mass conc 203 mg/dL High 70-100 [facility] Comment on above: Performed By: #### 4 1000, 93047, 11023, 61112 #### [facility] [address] [place] [address], [place] Glucose mass conc 176 mg/dL High 70-100 [facility] Comment on above: Performed By: #### 4 1000, 37027, 33512, 43003 #### [facility] [address] [place] [address], [place] Glucose mass conc 199 mg/dL High 70-100 [facility] Comment on above: Performed By: #### 4 1000, 46891, 61597, 76334 #### [facility] [address] [place] [address], [facility] Glucose mass conc 158 mg/dL High 70-100 [facility] Comment on above: Performed By: #### 4 1000, 98448, 75142, 40129 #### [facility] [address] [place] [address], [facility] PROTHROMBIN TIMEon 8 INR Coag RelTime (PPP) 1.14 {INR} Normal 0.91-1.16 [facility] Comment on above: Order Comment: No: [...] CHEST 1995;[id number]. Performed By: #### 4 1000, 81087, 54346, 40460 #### [facility] [address] [place] [address], [facility] Prothrombin time (PT) Coag time (PPP) 14.6 s Normal 12.3-14.8 [facility] Comment on above: Order Comment: No: D o not add to previous draw Result Comment: ALL RESULTS MUST BE INTERPRETED WITH RESPECT TO BLOOD DRAWING ARTIFACT OR DILUTION ERROR OF ANTICOAGULANT AT THE TIME OF SAMPLING. Performed By: #### 4 1000, 00131, 61768, 70594 #### [facility] [address] [place] [address], [facility] TROPONIN-Ion 09-06-2018 Troponin I.cardiac mass conc 0.00 ng/mL Normal 0.00-0.04 [facility] Comment on above: Order Comment: No: D o not add to previous draw Result Comment: REFE RENCE RANGES: 0.00 - 0.14 ng/ml NEGATIVE 0.15 - 0.25 ng/ml INDETERMINATE > 0.25 ng/ml INDICATIVE OF AN M.I. Performed By: #### 4 1000, 61304, 63841, 50194 #### [facility] [address] [place] [address], [facility] BASIC METABOLIC PANELon Calcium mass conc 9.3 mg/dL Normal 8.6-10.3 [facility] Comment on above: Order Comment: No: D o not add to previous draw Performed By: #### 4 1000, 69287, 71229, 38174 #### [facility] [address] [place] [address], [facility] Chloride molar conc 104 mmol/L Normal 98-107 [facility] Comment on above: Order Comment: No: D o not add to previous draw Performed By: #### 4 1000, 43290, 75360, 96703 #### [facility] [address] [place] [address], [facility] CO2 molar conc 23 mmol/L Normal 21-31 [facility] Comment on above: Order Comment: No: D o not add to previous draw Performed By: #### 4 1000, 58041, 92506, 92662 #### [facility] [address] [place] [address], [facility] Creatinine mass conc 0.84 mg/dL Normal 0.60-1.20 [facility] Comment on above: Order Comment: No: D o not add to previous draw Performed By: #### 4 1000, 64123, 54525, 96287 #### [facility] [address] [place] [address], [place] GFR/1.73 sq M predicted among blacks MDRD vol rate/area (S/P/Bld) mL/min/{1.73_m2} Normal >60 [facility] Comment on above: Order Comment: No: D o not add to previous draw Performed By: #### 4 1000, 39811, 99103, 64634 #### [facility] [address] [place] [address], [place] GFR/1.73 sq M predicted among non-blacks MDRD vol rate/area (S/P/Bld) mL/min/{1.73_m2} Normal >60 [facility] Comment on above: Order Comment: No: D o not add to previous draw Performed By: #### 4 1000, 95414, 11538, 76144 #### [facility] [address] [place] [address], [place] Glucose mass conc 124 mg/dL High 70-100 [facility] Comment on above: Order Comment: No: D o not add to previous draw Performed By: #### 4 1000, 78788, 48185, 51687 #### [facility] [address] [place] [address], [place] Potassium molar conc 4.2 mmol/L Normal 3.5-5.1 [facility] Comment on above: Order Comment: No: D o not add to previous draw Performed By: #### 4 1000, 86887, 99137, 55479 #### [facility] [address] [place] [address], [place] Sodium molar conc 137 mmol/L Normal 136-145 [facility] Comment on above: Order Comment: No: D o not add to previous draw Performed By: #### 4 1000, 98973, 64915, 01336 #### [facility] [address] [place] [address], [place] Urea nitrogen mass conc 25 mg/dL Normal 7-25 [facility] Comment on above: Order Comment: No: D o not add to previous draw Performed By: #### 4 1000, 53644, 80296, 42526 #### [facility] [address] CBC W/DIFFon 09-05-2018 ABS BASOPHILS 0.0 10*3/uL Normal 0.0-0.2 [facility] Comment on above: Performed By: #### 4 1000, 07180, 51700, 95840 #### [facility] [address] ABS IMM GRANS 0.0 10*3/uL Normal 0.0-0.2 [facility] Comment on above: Performed By: #### 4 1000, 34207, 67501, 41717 #### [facility] [address] ABS NEUTROPHILS 5.5 10*3/uL Normal 1.6-7.6 [facility] Comment on above: Performed By: #### 4 1000, 48011, 13383, 42796 #### [facility] [address] Basophils #/vol (Bld) 0.4 % Normal 0.0-1.0 [facility] Comment on above: Performed By: #### 4 1000, 67497, 29796, 93780 #### [facility] [address] Eosinophils #/vol (Bld) 0.2 10*3/uL Normal 0.0-0.5 [facility] Comment on above: Performed By: #### 4 1000, 00803, 90381, 11499 #### [facility] [address] Eosinophils/100 WBC (Bld) 1.9 % Normal 0.0-6.0 [facility] Comment on above: Performed By: #### 4 1000, 54393, 10669, 08217 #### [facility] [address] [place] [address], [facility] Erythrocyte distribution width Ratio (RBC) 12.6 % Normal 11.5-15.0 [facility] Comment on above: Performed By: #### 4 1000, 26931, 87647, 19866 #### [facility] [address] [place] [address], [facility] Hematocrit Volume Fraction (Bld) 40.6 % Normal 36.0-45.0 [facility] Comment on above: Performed By: #### 4 1000, 64986, 26074, 45037 #### [facility] [address] [place] [address], [facility] Hemoglobin mass conc (Bld) 13.4 g/dL Normal 12.0-15.0 [facility] Comment on above: Performed By: #### 4 1000, 49977, 16864, 57856 #### [facility] [address] [place] [address], [facility] IMMATURE GRANS 0.2 % Normal 0.0-1.0 [facility] Comment on above: Performed By: #### 4 1000, 15907, 54574, 33521 #### [facility] [address] [place] [address], [facility] Lymphocytes #/vol (Bld) 3.5 10*3/uL Normal 1.2-4.0 [facility] Comment on above: Performed By: #### 4 1000, 15714, 15957, 97122 #### [facility] [address] [place] [address], [facility] Lymphocytes/100 WBC (Bld) 35.3 % Normal 20.0-45.0 [facility] Comment on above: Performed By: #### 4 1000, 32122, 34091, 39054 #### [facility] [address] MCH Entitic mass (RBC) 30.3 pg Normal 27.0-33.0 [facility] Comment on above: Performed By: #### 4 1000, 28427, 72396, 01330 #### [facility] [address] [facility] [address] MCHC mass conc (RBC) 33.0 g/dL Normal 32.0-35.0 [facility] Comment on above: Performed By: #### 4 1000, 09255, 54765, 04105 #### [facility] [address] [facility] [address] MCV Entitic volume (RBC) 91.9 fL Normal 82.0-98.0 [facility] Comment on above: Performed By: #### 4 1000, 40644, 19529, 31365 #### [facility] [address] [facility]. [address] Monocytes #/vol (Bld) 0.7 10*3/uL Normal 0.1-1.0 [facility] Comment on above: Performed By: #### 4 1000, 68077, 14977, 74260 #### [facility] [address] [facility] [place] [place] [address], [facility] MONOS 7.4 % Normal 5.0-12.0 [facility] Comment on above: Performed By: #### 4 1000, 71501, 05554, 37788 #### [facility] [address] [facility]. [address] Neutrophils/100 WBC (Bld) 54.8 % Normal 40.0-72.0 [facility] Comment on above: Performed By: #### 4 1000, 49873, 34032, 64646 #### [facility] [address] [facility] [place] [address], [facility] Nucleated RBC/100 WBC Ratio (Bld) 0 % Normal 0-0 [facility] Comment on above: Performed By: #### 4 1000, 75687, 04360, 91654 #### [facility] [address] [place] [address], [facility] PLAT CNT 325 10*3/uL Normal 150-400 [facility] Comment on above: Performed By: #### 4 1000, 28752, 37943, 59382 #### [facility] [address] RBC #/vol (Bld) 4.42 10*6/uL Normal 3.80-5.00 [facility] Comment on above: Performed By: #### 4 1000, 33384, 31707, 04586 #### [facility] [address] WBC #/vol (Bld) 9.97 10*3/uL Normal 4.00-10.60 [facility] Comment on above: Performed By: #### 4 1000, 13186, 64481, 76871 #### [facility] [address] History and Physicalon 09-05 History and Physical MR#: [id number] [facility] Pt. Name: Kyle Poewll Admitted: 09/05/2018 Date of : 1955 Attending Physician: Jonah Sanabria MD Room #: [id number] Discharge Date: HISTORY AND PHYSICAL HISTORY OF PRESENT ILLNESS: The patient is a 62-year-old female, very pleasant with past medical history significant for coronary artery disease, history of multiple strokes in the past, presented to the [facility] from the [facility] as a direct admit. The patient stated that 3 days ago she went to the [facility] because of the chest pain that was located centrally, nonradiating, getting worse with activity and then she was admitted in [facility] for 3 days. Today, she went for the Persantine stress test. When they were injecting Persantine, the patient found to have ST elevation and they aborted the procedure and decision were made to transfer the patient to the [facility] for a possible cardiac cath. the home child care provider per the patient. At the time of encounter, the patient is sitting comfortably in bed, not in acute distress. The patient has last cardiac cath in [facility] in 01/2017. The patient had severe [...] Have been reconciled. LABORATORY DATA: From the [facility], troponin 0.01, last. The patient hemoglobin and BMP were stable. We ordered a repeat BMP and CBC and tropes level that are pending. CBC is unremarkable at our system. ASSESSMENT AND PLAN: 1. Atypical chest pain, rule out ACS. Persantine as a stress test was aborted at the [facility] because of ST-segment changes. We will [...] Sanabria MD Date Trans: 09/05/2018 04:59 P/mmo [id number] Normal [facility] MAGNESIUM BLOODon 09-05-2018 Magnesium mass conc 1.9 mg/dL Normal 1.9-2.7 [facility] Comment on above: Order Comment: No: D o not add to previous draw Performed By: #### 4 1000, 44332, 88335, 93511 #### [facility] [address] [address], [facility] PHOSPHORUS BLOODon 8 Phosphate mass conc 4.5 mg/dL Normal 2.5-5.0 [facility] Comment on above: Order Comment: No: D o not add to previous draw Performed By: #### 4 1000, 43954, 97984, 72341 #### [facility] [address] [place] [address], [facility] POC GLUCOSE LABon 09-05-2018 Glucose mass conc 192 mg/dL High 70-100 [facility] Comment on above: Performed By: #### 4 1000, 69152, 56721, 88364 #### [facility] [address] [place] [address], [place] Glucose mass conc 119 mg/dL High 70-100 [facility] Comment on above: Performed By: #### 4 1000, 54309, 14254, 88017 #### [facility] [address] [place] [address], [place] TROPONIN-Ion 09-05-2018 Troponin I.cardiac mass conc 0.01 ng/mL Normal 0.00-0.04 [facility] Comment on above: Order Comment: No: D o not add to previous draw Result Comment: REFE RENCE RANGES: 0.00 - 0.04 ng/ml NORMAL 0.05 - 0.50 ng/ml INDETERMINATE > 0.50 ng/ml CONSISTENT WITH AN M.I. Performed By: #### 4 1000, 08849, 55846, 91792 #### [facility] [address] [place] [address], [facility] Troponin I.cardiac mass conc 0.01 ng/mL Normal 0.00-0.04 [facility] Comment on above: Order Comment: No: D o not add to previous draw Result Comment: REFE RENCE RANGES: 0.00 - 0.04 ng/ml NORMAL 0.05 - 0.50 ng/ml INDETERMINATE > 0.50 ng/ml CONSISTENT WITH AN M.I. Performed By: #### 4 1000, 30589, 38864, 42176 #### [facility] [address] [place] [address], [place] POC GLUCOSE LABon 05-03-2018 Glucose mass conc 299 mg/dL High 70-100 [facility] Comment on above: Performed By: #### 4 1000, 92033, 58975, 88909 #### [facility] [address] [place] [address], [facility] Glucose mass conc 233 mg/dL High 70-100 [facility] Comment on above: Performed By: #### 4 1000, 28561, 99745, 01590 #### [facility] [address] [place] [address], [place] BASIC METABOLIC PANELon 08-0 Calcium mass conc 9.3 mg/dL Normal 8.6-10.3 [facility] Comment on above: Order Comment: No: D o not add to previous draw Performed By: #### 4 1000, 33899, 03730, 13250 #### [facility] [address] [place] [address], [place] Chloride molar conc 103 mmol/L Normal 98-107 [facility] Comment on above: Order Comment: No: D o not add to previous draw Performed By: #### 4 1000, 86352, 71614, 07754 #### [facility] [address] [place] [address], [place] CO2 molar conc 27 mmol/L Normal 21-31 [facility] Comment on above: Order Comment: No: D o not add to previous draw Performed By: #### 4 1000, 26466, 23548, 40577 #### [facility] [address] [place] [address], [place] Creatinine mass conc 0.80 mg/dL Normal 0.60-1.20 [facility] Comment on above: Order Comment: No: D o not add to previous draw Performed By: #### 4 1000, 78310, 96058, 39101 #### [facility] [address] [place] [address], [place] GFR/1.73 sq M predicted among blacks MDRD vol rate/area (S/P/Bld) mL/min/{1.73_m2} Normal >60 [facility] Comment on above: Order Comment: No: D o not add to previous draw Performed By: #### 4 1000, 04539, 18575, 15883 #### [facility] [address] [place] [address], [place] GFR/1.73 sq M predicted among non-blacks MDRD vol rate/area (S/P/Bld) mL/min/{1.73_m2} Normal >60 [facility] Comment on above: Order Comment: No: D o not add to previous draw Performed By: #### 4 1000, 53827, 26141, 04975 #### [facility] [address] [place] [address], [place] Glucose mass conc 272 mg/dL High 70-100 [facility] Comment on above: Order Comment: No: D o not add to previous draw Performed By: #### 4 1000, 16212, 42238, 81157 #### [facility] [address] [place] [address], [place] Potassium molar conc 4.1 mmol/L Normal 3.5-5.1 [facility] Comment on above: Order Comment: No: D o not add to previous draw Performed By: #### 4 1000, 74676, 14962, 60601 #### [facility] [address] [place] [address], [place] Sodium molar conc 138 mmol/L Normal 136-145 [facility] Comment on above: Order Comment: No: D o not add to previous draw Performed By: #### 4 1000, 75904, 85297, 12409 #### [facility] [address] [place] [address], [place] Urea nitrogen mass conc 19 mg/dL Normal 7-25 [facility] Comment on above: Order Comment: No: D o not add to previous draw Performed By: #### 4 1000, 25284, 88664, 58252 #### [facility] [address] [place] [address], [facility] CBC COMPLETE BLOOD COUNTon 0 05-02-2018 Erythrocyte distribution width Ratio (RBC) 12.9 % Normal 11.5-15.0 [facility] Comment on above: Order Comment: No: D o not add to previous draw Performed By: #### 4 1000, 55499, 27971, 65606 #### [facility] [address] [place] [address], [facility] Hematocrit Volume Fraction (Bld) 37.6 % Normal 36.0-45.0 [facility] Comment on above: Order Comment: No: D o not add to previous draw Performed By: #### 4 1000, 50543, 30334, 66402 #### [facility] [address] [place] [address], [facility] Hemoglobin mass conc (Bld) 12.2 g/dL Normal 12.0-15.0 [facility] Comment on above: Order Comment: No: D o not add to previous draw Performed By: #### 4 1000, 41311, 85017, 71707 #### [facility] [address] [place] [address], [facility] MCH Entitic mass (RBC) 29.7 pg Normal 27.0-33.0 [facility] Comment on above: Order Comment: No: D o not add to previous draw Performed By: #### 4 1000, 50372, 57672, 35031 #### [facility] [address] [place] [address], [facility] MCHC mass conc (RBC) 32.4 g/dL Normal 32.0-35.0 [facility] Comment on above: Order Comment: No: D o not add to previous draw Performed By: #### 4 1000, 70222, 10092, 77310 #### [facility] [address] [place] [address], [facility] MCV Entitic volume (RBC) 91.5 fL Normal 82.0-98.0 [facility] Comment on above: Order Comment: No: D o not add to previous draw Performed By: #### 4 1000, 13239, 55028, 68215 #### [facility] [address] [place] [address], [facility] Nucleated RBC/100 WBC Ratio (Bld) 0 % Normal 0-0 [facility] Comment on above: Order Comment: No: D o not add to previous draw Performed By: #### 4 1000, 72873, 35359, 64550 #### [facility] [address] [place] [address], [place] PLAT CNT 229 10*3/uL Normal 150-400 [facility] Comment on above: Order Comment: No: D o not add to previous draw Performed By: #### 4 1000, 94745, 29856, 54405 #### [facility] [address] [place] [address], [facility] RBC #/vol (Bld) 4.11 10*6/uL Normal 3.80-5.00 [facility] Comment on above: Order Comment: No: D o not add to previous draw Performed By: #### 4 1000, 10922, 41592, 37302 #### [facility] [address] [place] [address], [facility] WBC #/vol (Bld) 6.30 10*3/uL Normal 4.00-10.60 [facility] Comment on above: Order Comment: No: D o not add to previous draw Performed By: #### 4 1000, 97154, 59326, 66985 #### [facility] [address] [place] [address], [facility] POC GLUCOSE LABon 05-02-2018 Glucose mass conc 295 mg/dL High 70-100 [facility] Comment on above: Performed By: #### 4 1000, 58873, 88185, 05923 #### [facility] [address] [place] [address], [place] Glucose mass conc 327 mg/dL High 70-100 [facility] Comment on above: Performed By: #### 4 1000, 31358, 60732, 66559 #### [facility] [address] [place] [address], [place] Glucose mass conc 326 mg/dL High 70-100 [facility] Comment on above: Performed By: #### 4 1000, 78168, 97639, 71298 #### [facility] [address] [place] [address], [place] Glucose mass conc 265 mg/dL High 70-100 [facility] Comment on above: Performed By: #### 5 7307, 80094 #### [facility] [address] [place] [address], [place] Glucose mass conc 347 mg/dL High 70-100 [facility] Comment on above: Performed By: #### 5 7307, 67749 #### [facility] [address] [place] [address], [place] BASIC METABOLIC PANELon 08-0 Calcium mass conc 9.3 mg/dL Normal 8.6-10.3 [facility] Comment on above: Order Comment: No: D o not add to previous draw Performed By: #### 5 7307, 65589 #### [facility] [address] [place] [address], [place] Chloride molar conc 103 mmol/L Normal 98-107 [facility] Comment on above: Order Comment: No: D o not add to previous draw Performed By: #### 5 7307, 16950 #### [facility] [address] [place] [address], [place] CO2 molar conc 24 mmol/L Normal 21-31 [facility] Comment on above: Order Comment: No: D o not add to previous draw Performed By: #### 5 7307, 24408 #### [facility] [address] [place] [address], [place] Creatinine mass conc 0.78 mg/dL Normal 0.60-1.20 [facility] Comment on above: Order Comment: No: D o not add to previous draw Performed By: #### 5 7307, 68312 #### [facility] [address] [place] [address], [place] GFR/1.73 sq M predicted among blacks MDRD vol rate/area (S/P/Bld) mL/min/{1.73_m2} Normal >60 [facility] Comment on above: Order Comment: No: D o not add to previous draw Performed By: #### 5 7307, 76267 #### [facility] [address] [place] [address], [place] GFR/1.73 sq M predicted among non-blacks MDRD vol rate/area (S/P/Bld) mL/min/{1.73_m2} Normal >60 [facility] Comment on above: Order Comment: No: D o not add to previous draw Performed By: #### 5 7307, 85096 #### [facility] [address] [place] [address], [place] Glucose mass conc 270 mg/dL High 70-100 [facility] Comment on above: Order Comment: No: D o not add to previous draw Performed By: #### 5 7307, 62603 #### [facility] [address] [place] [address], [place] Potassium molar conc 4.2 mmol/L Normal 3.5-5.1 [facility] Comment on above: Order Comment: No: D o not add to previous draw Performed By: #### 5 7307, 46854 #### [facility] [address] [place] [address], [place] Sodium molar conc 136 mmol/L Normal 136-145 [facility] Comment on above: Order Comment: No: D o not add to previous draw Performed By: #### 5 7307, 44396 #### [facility] [address] [place] [address], [facility] Urea nitrogen mass conc 20 mg/dL Normal 7-25 [facility] Comment on above: Order Comment: No: D o not add to previous draw Performed By: #### 5 7307, 35630 #### [facility] [address] [place] [address], [facility] CBC COMPLETE BLOOD COUNTon 0 05-01-2018 Erythrocyte distribution width Ratio (RBC) 13.0 % Normal 11.5-15.0 [facility] Comment on above: Order Comment: No: D o not add to previous draw Performed By: #### 5 73, 33912 #### [facility] [address] Hematocrit Volume Fraction (Bld) 37.6 % Normal 36.0-45.0 [facility] Comment on above: Order Comment: No: D o not add to previous draw Performed By: #### 5 73, 75329 #### [facility] [address] [place] [address], [facility] Hemoglobin mass conc (Bld) 12.5 g/dL Normal 12.0-15.0 [facility] Comment on above: Order Comment: No: D o not add to previous draw Performed By: #### 5 7307, 08992 #### [facility] [address] [place] [address], [facility] MCH Entitic mass (RBC) 30.2 pg Normal 27.0-33.0 [facility] Comment on above: Order Comment: No: D o not add to previous draw Performed By: #### 5 7307, 77921 #### [facility] [address] [place] [address], [facility] MCHC mass conc (RBC) 33.2 g/dL Normal 32.0-35.0 [facility] Comment on above: Order Comment: No: D o not add to previous draw Performed By: #### 5 7307, 02458 #### [facility] [address] MCV Entitic volume (RBC) 90.8 fL Normal 82.0-98.0 [facility] Comment on above: Order Comment: No: D o not add to previous draw Performed By: #### 5 7307, 74827 #### [facility] [address] [place] [address], [facility] Nucleated RBC/100 WBC Ratio (Bld) 0 % Normal 0-0 [facility] Comment on above: Order Comment: No: D o not add to previous draw Performed By: #### 5 73, 66539 #### [facility] [address] [facility] [place] [place] [address], [facility] PLAT CNT 252 10*3/uL Normal 150-400 [facility] Comment on above: Order Comment: No: D o not add to previous draw Performed By: #### 5 73, 79301 #### [facility] [address] [facility] [place] [place] [address], [facility] RBC #/vol (Bld) 4.14 10*6/uL Normal 3.80-5.00 [facility] Comment on above: Order Comment: No: D o not add to previous draw Performed By: #### 5 7307, 59719 #### [facility] [address] [facility] [place] [place] [address], [facility] WBC #/vol (Bld) 6.80 10*3/uL Normal 4.00-10.60 [facility] Comment on above: Order Comment: No: D o not add to previous draw Performed By: #### 5 7307, 82784 #### [facility] [address] [facility] [place] [place] [address], [facility] POC GLUCOSE LABon 05-01-2018 Glucose mass conc 300 mg/dL High 70-100 [facility] Comment on above: Performed By: #### 5 7307, 09211 #### [facility] [address] [place] [address], [facility] Glucose mass conc 344 mg/dL High 70-100 [facility] Comment on above: Performed By: #### 5 7307, 92136 #### [facility] [address] [place] [address], [place] Glucose mass conc 335 mg/dL High 70-100 [facility] Comment on above: Performed By: #### 5 7307, 86352 #### [facility] [address] [place] [address], [facility] Glucose mass conc 263 mg/dL High 70-100 [facility] Comment on above: Performed By: #### 5 7307, 53927 #### [facility] [address] [place] [address], [facility] BASIC METABOLIC PANELon 07-3 Calcium mass conc 9.0 mg/dL Normal 8.6-10.3 [facility] Comment on above: Order Comment: No: D o not add to previous draw Performed By: #### 5 7307, 67392 #### [facility] [address] [place] [address], [facility] Chloride molar conc 105 mmol/L Normal 98-107 [facility] Comment on above: Order Comment: No: D o not add to previous draw Performed By: #### 5 7307, 64004 #### [facility] [address] [place] [address], [place] CO2 molar conc 25 mmol/L Normal 21-31 [facility] Comment on above: Order Comment: No: D o not add to previous draw Performed By: #### 5 7307, 73985 #### [facility] [address] [place] [address], [place] Creatinine mass conc 0.80 mg/dL Normal 0.60-1.20 [facility] Comment on above: Order Comment: No: D o not add to previous draw Performed By: #### 5 7307, 38848 #### [facility] [address] [place] [address], [place] GFR/1.73 sq M predicted among blacks MDRD vol rate/area (S/P/Bld) mL/min/{1.73_m2} Normal >60 [facility] Comment on above: Order Comment: No: D o not add to previous draw Performed By: #### 5 7307, 45627 #### [facility] [address] [place] [address], [place] GFR/1.73 sq M predicted among non-blacks MDRD vol rate/area (S/P/Bld) mL/min/{1.73_m2} Normal >60 [facility] Comment on above: Order Comment: No: D o not add to previous draw Performed By: #### 5 7307, 70621 #### [facility] [address] [place] [address], [place] Glucose mass conc 238 mg/dL High 70-100 [facility] Comment on above: Order Comment: No: D o not add to previous draw Performed By: #### 5 73, 05881 #### [facility] [address] [place] [address], [place] Potassium molar conc 3.9 mmol/L Normal 3.5-5.1 [facility] Comment on above: Order Comment: No: D o not add to previous draw Performed By: #### 5 7307, 37377 #### [facility] [address] [place] [address], [place] Sodium molar conc 137 mmol/L Normal 136-145 [facility] Comment on above: Order Comment: No: D o not add to previous draw Performed By: #### 5 7307, 90281 #### [facility] [address] [place] [address], [place] Urea nitrogen mass conc 21 mg/dL Normal 7-25 [facility] Comment on above: Order Comment: No: D o not add to previous draw Performed By: #### 5 7307, 12488 #### [facility] [address] [place] [address], [facility] CBC COMPLETE BLOOD COUNTon 04-30-2018 Erythrocyte distribution width Ratio (RBC) 12.9 % Normal 11.5-15.0 [facility] Comment on above: Order Comment: No: D o not add to previous draw Performed By: #### 5 7307, 24470 #### [facility] [address] [place] [address], [facility] Hematocrit Volume Fraction (Bld) 37.4 % Normal 36.0-45.0 [facility] Comment on above: Order Comment: No: D o not add to previous draw Performed By: #### 5 7307, 04400 #### [facility] [address] [place] [address], [facility] Hemoglobin mass conc (Bld) 12.2 g/dL Normal 12.0-15.0 [facility] Comment on above: Order Comment: No: D o not add to previous draw Performed By: #### 5 7307, 37144 #### [facility] [address] [place] [address], [facility] MCH Entitic mass (RBC) 29.5 pg Normal 27.0-33.0 [facility] Comment on above: Order Comment: No: D o not add to previous draw Performed By: #### 5 7307, 93585 #### [facility] [address] [place] [id number], [facility] MCHC mass conc (RBC) 32.6 g/dL Normal 32.0-35.0 [facility] Comment on above: Order Comment: No: D o not add to previous draw Performed By: #### 5 7307, 05306 #### [facility] [address] [place] [address], [facility] MCV Entitic volume (RBC) 90.6 fL Normal 82.0-98.0 [facility] Comment on above: Order Comment: No: D o not add to previous draw Performed By: #### 5 7307, 00470 #### [facility] [address] [place] [address], [facility] Nucleated RBC/100 WBC Ratio (Bld) 0 % Normal 0-0 [facility] Comment on above: Order Comment: No: D o not add to previous draw Performed By: #### 5 7307, 15697 #### [facility] [address] [place] [address], [facility] PLAT CNT 262 10*3/uL Normal 150-400 [facility] Comment on above: Order Comment: No: D o not add to previous draw Performed By: #### 5 7307, 27012 #### [facility] [address] [place] [address], [facility] RBC #/vol (Bld) 4.13 10*6/uL Normal 3.80-5.00 [facility] Comment on above: Order Comment: No: D o not add to previous draw Performed By: #### 5 7307, 60043 #### [facility] [address] [place] [address], [facility] WBC #/vol (Bld) 6.73 10*3/uL Normal 4.00-10.60 [facility] Comment on above: Order Comment: No: D o not add to previous draw Performed By: #### 5 7307, 50006 #### [facility] [address] [place] [address], [facility] LIPID PROFILEon 04-30-2018 Cholesterol in HDL mass conc 27 mg/dL Normal 23-92 [facility] Comment on above: Order Comment: No: D o not add to previous draw Result Comment: Slig ht variation in normal range could be due to gender and/or age. HDL CHOLESTEROL REFERENCE RANGE: 20 years and older Cardiovascular Risk > or =60 mg/dL Desirable 40 TO 59 mg/dL Low Risk <40 mg/dL High Risk Performed By: #### 5 7307, 61625 #### [facility] [address] [place] [address], [facility] Cholesterol in LDL mass conc 0 mg/dL Normal 0-130 [facility] Comment on above: Order Comment: No: D o not add to previous draw Result Comment: LDL IS A CALCULATION LDL IS ONLY VALID IF THE TRIG IS LESS THAN 400. Performed By: #### 5 7307, 37544 #### [facility] [address] [place] [address], [facility] [facility] Cholesterol mass conc 112 mg/dL Low 120-200 [facility] Comment on above: Order Comment: No: D o not add to previous draw Result Comment: CHOL ESTEROL REFERENCE RANGE: 20 YEARS AND OLDER CARDIOVASCULAR RISK Less than 200 mg/dl Low Risk 200 to 239 mg/dl Borderline Risk 240 mg/dl and greater High Risk Performed By: #### 5 7307, 11286 #### [facility] [address] [place] [address], [facility] Cholesterol.total/Cho lesterol in HDL mass ratio 4.1 {ratio} Normal .0-4.5 [facility] Comment on above: Order Comment: No: D o not add to previous draw Performed By: #### 5 7307, 96582 #### [facility] [address] [place] [address], [facility] NON-HDL CHOLESTEROL 85 mg/dL Normal [facility] Comment on above: Order Comment: No: D o not add to previous draw Performed By: #### 5 7307, 15110 #### [facility] [address] [place] [address], [facility] Triglyceride mass conc 424 mg/dL High 40-149 [facility] Comment on above: Order Comment: No: D o not add to previous draw Result Comment: TRIG LYCERIDE REFERENCE RANGE: 20 YEARS AND OLDER CARDIOVASCULAR RISK LESS THAN 150 mg/dl LOW RISK 150 TO 199 mg/dl BORDERLINE RISK 200 mg/dl AND GREATER HIGH RISK Performed By: #### 5 7307, 36198 #### [facility] [address] [place] [address], [facility] VLDL CHOL 85 mg/dL High 0-40 [facility] Comment on above: Order Comment: No: D o not add to previous draw Performed By: #### 5 7307, 82377 #### [address] MAGNESIUM BLOODon 04-30-2018 Magnesium mass conc 1.8 mg/dL Low 1.9-2.7 [facility] Comment on above: Order Comment: No: D o not add to previous draw Performed By: #### 5 7307, 76336 #### [address] MRI BRAIN WO CONTRASTon 04-02 MRI BRAIN WO CONTRAST [facility] Department of Radiology [address] [place], [place] [id number] Patient Name: KYLE POWELL : 1955 Sex: F Age: Race: White Pt. Location: [place] [address] Patient Status: I Ordered Date: 04/28/2018 6:40:00 [...] findings. Electronically signed by:Cornelius Bennett. Transcribed by: [email or web address], User Resident: ADIS BARRETT Electronically Signed by: CORNELIUS BENNETT @ 05/01/2018 03:45 PM I personally read this/these film(s) with this resident Normal [facility] Comment on above: Order Comment: No: D o not add to previous draw PHOSPHORUS BLOODon 8 Phosphate mass conc 4.7 mg/dL Normal 2.5-5.0 [facility] Comment on above: Order Comment: No: D o not add to previous draw Performed By: #### 5 7307, 45388 #### [facility] [address] [place] [address], [facility] POC GLUCOSE LABon 04-30-2018 Glucose mass conc 302 mg/dL High 70-100 [facility] Comment on above: Performed By: #### 5 7307, 33083 #### [facility] [address] [place] [address], [place] Glucose mass conc 309 mg/dL High 70-100 [facility] Comment on above: Performed By: #### 5 7307, 52342 #### [facility] [address] [place] [address], [place] Glucose mass conc 387 mg/dL High 70-100 [facility] Comment on above: Performed By: #### 5 7307, 15716 #### [facility] [address] [place] [address], [place] Glucose mass conc 229 mg/dL High 70-100 [facility] Comment on above: Performed By: #### 5 7307, 53402 #### [facility] [address] [place] [address], [place] Glucose mass conc 329 mg/dL High 70-100 [facility] Comment on above: Performed By: #### 5 7307, 58603 #### [facility] [address] [place] [address], [place] BASIC METABOLIC PANELon 07-3 0 Calcium mass conc 8.8 mg/dL Normal 8.6-10.3 [facility] Comment on above: Order Comment: No: D o not add to previous draw Performed By: #### 5 0608 #### [facility] [address] [place] [address], [place] Chloride molar conc 103 mmol/L Normal 98-107 [facility] Comment on above: Order Comment: No: D o not add to previous draw Performed By: #### 5 0608 #### [facility] [address] [place] [address], [place] CO2 molar conc 20 mmol/L Low 21-31 [facility] Comment on above: Order Comment: No: D o not add to previous draw Performed By: #### 5 0608 #### [facility] [address] [place] [address], [facility] Creatinine mass conc 0.86 mg/dL Normal 0.60-1.20 [facility] Comment on above: Order Comment: No: D o not add to previous draw Performed By: #### 5 0608 #### [facility] [address] [place] [address], [place] GFR/1.73 sq M predicted among blacks MDRD vol rate/area (S/P/Bld) mL/min/{1.73_m2} Normal >60 [facility] Comment on above: Order Comment: No: D o not add to previous draw Performed By: #### 5 0608 #### [facility] [address] [place] [address], [place] GFR/1.73 sq M predicted among non-blacks MDRD vol rate/area (S/P/Bld) mL/min/{1.73_m2} Normal >60 [facility] Comment on above: Order Comment: No: D o not add to previous draw Performed By: #### 5 0608 #### [facility] [address] [place] [address], [facility] Glucose mass conc 266 mg/dL High 70-100 [facility] Comment on above: Order Comment: No: D o not add to previous draw Performed By: #### 5 0608 #### [facility] [address] [place] [address], [place] Potassium molar conc 4.0 mmol/L Normal 3.5-5.1 [facility] Comment on above: Order Comment: No: D o not add to previous draw Performed By: #### 5 0608 #### [facility] [address] [place] [address], [place] Sodium molar conc 133 mmol/L Low 136-145 [facility] Comment on above: Order Comment: No: D o not add to previous draw Performed By: #### 5 0608 #### [facility] [address] [place] [address], [facility] Urea nitrogen mass conc 20 mg/dL Normal 7-25 [facility] Comment on above: Order Comment: No: D o not add to previous draw Performed By: #### 5 0608 #### [facility] [address] [place], [place] [id number] [place] [address] CBC COMPLETE BLOOD COUNTon 0 04-29-2018 Erythrocyte distribution width Ratio (RBC) 12.9 % Normal 11.5-15.0 [facility] Comment on above: Order Comment: No: D o not add to previous draw Performed By: #### 5 0608 #### [facility] [address] [place] [address], [facility] Hematocrit Volume Fraction (Bld) 39.9 % Normal 36.0-45.0 [facility] Comment on above: Order Comment: No: D o not add to previous draw Performed By: #### 5 0608 #### [facility] [address] [place] [address], [facility] Hemoglobin mass conc (Bld) 12.8 g/dL Normal 12.0-15.0 [facility] Comment on above: Order Comment: No: D o not add to previous draw Performed By: #### 5 0608 #### [facility] [address] [place] [address], [facility] MCH Entitic mass (RBC) 29.6 pg Normal 27.0-33.0 [facility] Comment on above: Order Comment: No: D o not add to previous draw Performed By: #### 5 0608 #### [facility] [address] [place] [address], [facility] MCHC mass conc (RBC) 32.1 g/dL Normal 32.0-35.0 [facility] Comment on above: Order Comment: No: D o not add to previous draw Performed By: #### 5 0608 #### [facility] [address] [place] [address], [facility] MCV Entitic volume (RBC) 92.1 fL Normal 82.0-98.0 [facility] Comment on above: Order Comment: No: D o not add to previous draw Performed By: #### 5 0608 #### [facility] [address] [place] [address], [facility] Nucleated RBC/100 WBC Ratio (Bld) 0 % Normal 0-0 [facility] Comment on above: Order Comment: No: D o not add to previous draw Performed By: #### 5 0608 #### [facility] [address] [place] [address], [facility] PLAT CNT 267 10*3/uL Normal 150-400 [facility] Comment on above: Order Comment: No: D o not add to previous draw Performed By: #### 5 0608 #### [facility] [address] RBC #/vol (Bld) 4.33 10*6/uL Normal 3.80-5.00 [facility] Comment on above: Order Comment: No: D o not add to previous draw Performed By: #### 5 0608 #### [facility] [address] [place] [address], [facility] WBC #/vol (Bld) 7.66 10*3/uL Normal 4.00-10.60 [facility] Comment on above: Order Comment: No: D o not add to previous draw Performed By: #### 5 0608 #### [facility] [address] [place] [address], [facility] HEMOGLOBIN A1Con 04-29-2018 Hemoglobin A1c/Hemoglobin.total mass fraction (Bld) 13.7 % High 4.0-6.0 [facility] Comment on above: Order Comment: No: D o not add to previous draw Performed By: #### 5 0608 #### [facility] [address] [place] [address], [facility] Hemoglobin A1c/Hemoglobin.total mass fraction (Bld) 346 mg/dL High 70-126 [facility] Comment on above: Order Comment: No: D o not add to previous draw Performed By: #### 5 0608 #### [facility] [address] [place] [address], [facility] LIPID PROFILEon 04-29-2018 Cholesterol in HDL mass conc 25 mg/dL Normal 23-92 [facility] Comment on above: Order Comment: No: D o not add to previous draw Result Comment: Slig ht variation in normal range could be due to gender and/or age. HDL CHOLESTEROL REFERENCE RANGE: 20 years and older Cardiovascular Risk > or =60 mg/dL Desirable 40 TO 59 mg/dL Low Risk <40 mg/dL High Risk Performed By: #### 5 0608 #### [facility] [address] [place] [address], [facility] Cholesterol in LDL mass conc 'UNABLE TO CALC Normal 0-130 [facility] Comment on above: Order Comment: No: D o not add to previous draw Result Comment: LDL IS A CALCULATION LDL IS ONLY VALID IF THE TRIG IS LESS THAN 400. Performed By: #### 5 0608 #### [facility] [address] [place] [address], [facility] Cholesterol mass conc 115 mg/dL Low 120-200 [facility] Comment on above: Order Comment: No: D o not add to previous draw Result Comment: CHOL ESTEROL REFERENCE RANGE: 20 YEARS AND OLDER CARDIOVASCULAR RISK Less than 200 mg/dl Low Risk 200 to 239 mg/dl Borderline Risk 240 mg/dl and greater High Risk Performed By: #### 5 0608 #### [facility] [address] [place] [address], [facility] Cholesterol.total/Cho lesterol in HDL mass ratio 4.6 {ratio} High .0-4.5 [facility] Comment on above: Order Comment: No: D o not add to previous draw Performed By: #### 5 0608 #### [facility] [address] NON-HDL CHOLESTEROL 90 mg/dL Normal [facility] Comment on above: Order Comment: No: D o not add to previous draw Performed By: #### 5 0608 #### [facility] [address] [place] [address], [facility] Triglyceride mass conc 498 mg/dL High 40-149 [facility] Comment on above: Order Comment: No: D o not add to previous draw Result Comment: TRIG LYCERIDE REFERENCE RANGE: 20 YEARS AND OLDER CARDIOVASCULAR RISK LESS THAN 150 mg/dl LOW RISK 150 TO 199 mg/dl BORDERLINE RISK 200 mg/dl AND GREATER HIGH RISK Performed By: #### 5 0608 #### [facility] [address] VLDL CHOL 100 mg/dL High 0-40 [facility] Comment on above: Order Comment: No: D o not add to previous draw Performed By: #### 5 0608 #### [facility] [address] [facility] [place] [address], [facility] MAGNESIUM BLOODon 04-29-2018 Magnesium mass conc 1.8 mg/dL Low 1.9-2.7 [facility] Comment on above: Order Comment: No: D o not add to previous draw Performed By: #### 5 0608 #### [facility] [address] [facility] [place] [address], [facility] PHOSPHORUS BLOODon 8 Phosphate mass conc 5.5 mg/dL High 2.5-5.0 [facility] Comment on above: Order Comment: No: D o not add to previous draw Performed By: #### 5 0608 #### [facility] [address] [place] [address], [facility] POC GLUCOSE LABon 04-29-2018 Glucose mass conc 287 mg/dL High 70-100 [facility] Comment on above: Performed By: #### 5 7307, 05400 #### [facility] [address] [place] [address], [facility] Glucose mass conc 317 mg/dL High 70-100 [facility] Comment on above: Performed By: #### 5 0608 #### [facility] [address] [place] [address], [facility] Glucose mass conc 267 mg/dL High 70-100 [facility] Comment on above: Performed By: #### 5 0608 #### [facility] [address] [place] [address], [facility] Glucose mass conc 347 mg/dL High 70-100 [facility] Comment on above: Performed By: #### 8 5499 #### [facility] [address] [facility] [place] [address], [facility] APTTon 04-28-2018 aPTT Coag time (Bld) 28.1 s Normal 25.0-35.0 [facility] Comment on above: Order Comment: No: [...] THIS PURPOSE. Performed By: #### 5 7307, 65101 #### [facility] [address] [facility] [place] [place] [address], [facility] CALCIUM IONIZED CBGLon 04-28 IONIZED CALCIUM 1.07 mmol/L Low 1.12-1.30 [facility] Comment on above: Performed By: #### 7 0066 #### [facility] [address] [facility]. [place], [place] [id number] [place] [address] CBC COMPLETE BLOOD COUNTon 0 04-28-2018 Erythrocyte distribution width Ratio (RBC) 12.8 % Normal 11.5-15.0 [facility] Comment on above: Order Comment: No: D o not add to previous draw Performed By: #### 5 0608 #### [facility] [address] [place] [address], [facility] Hematocrit Volume Fraction (Bld) 41.3 % Normal 36.0-45.0 [facility] Comment on above: Order Comment: No: D o not add to previous draw Performed By: #### 5 0608 #### [facility] [address] [place] [address], [facility] Hemoglobin mass conc (Bld) 13.8 g/dL Normal 12.0-15.0 [facility] Comment on above: Order Comment: No: D o not add to previous draw Performed By: #### 5 0608 #### [facility] [address] [place] [address], [facility] MCH Entitic mass (RBC) 30.1 pg Normal 27.0-33.0 [facility] Comment on above: Order Comment: No: D o not add to previous draw Performed By: #### 5 0608 #### [facility] [address] [place] [address], [facility] MCHC mass conc (RBC) 33.4 g/dL Normal 32.0-35.0 [facility] Comment on above: Order Comment: No: D o not add to previous draw Performed By: #### 5 0608 #### [facility] [address] [place] [address], [facility] MCV Entitic volume (RBC) 90.2 fL Normal 82.0-98.0 [facility] Comment on above: Order Comment: No: D o not add to previous draw Performed By: #### 5 0608 #### [facility] [address] [place] [address], [facility] Nucleated RBC/100 WBC Ratio (Bld) 0 % Normal 0-0 [facility] Comment on above: Order Comment: No: D o not add to previous draw Performed By: #### 5 0608 #### [facility] [address] [place] [address], [facility] PLAT CNT 261 10*3/uL Normal 150-400 [facility] Comment on above: Order Comment: No: D o not add to previous draw Performed By: #### 5 0608 #### [facility] [address] [place] [address], [facility] RBC #/vol (Bld) 4.58 10*6/uL Normal 3.80-5.00 [facility] Comment on above: Order Comment: No: D o not add to previous draw Performed By: #### 5 0608 #### [facility] [address] [facility] [place] [address], [facility] WBC #/vol (Bld) 7.28 10*3/uL Normal 4.00-10.60 [facility] Comment on above: Order Comment: No: D o not add to previous draw Performed By: #### 5 0608 #### [facility] [address] [facility] COMP METABOLIC PANELon 04-28 Albumin mass conc 3.5 g/dL Normal 3.5-5.7 [facility] Comment on above: Order Comment: No: D o not add to previous draw Performed By: #### 4 1000, 40968, 76982, 29049 #### [facility] [address] [facility] ALKALINE PHOSPH 68 IU/L Normal 34-104 [facility] Comment on above: Order Comment: No: D o not add to previous draw Performed By: #### 4 1000, 53296, 46259, 67201 #### [facility] [address] [place] [address], [facility] ALT enzyme act/vol 22 U/L Normal 7-52 [facility] Comment on above: Order Comment: No: D o not add to previous draw Performed By: #### 4 1000, 34527, 78876, 03263 #### [facility] [address] [place] [address], [place] AST enzyme act/vol 19 U/L Normal 13-39 [facility] Comment on above: Order Comment: No: D o not add to previous draw Performed By: #### 4 1000, 15480, 24940, 90602 #### [facility] [address] [place] [address], [place] Bilirubin mass conc 0.4 mg/dL Normal 0.3-1.0 [facility] Comment on above: Order Comment: No: D o not add to previous draw Performed By: #### 4 1000, 32514, 92827, 18451 #### [facility] [address] [place] [address], [place] Calcium mass conc 8.9 mg/dL Normal 8.6-10.3 [facility] Comment on above: Order Comment: No: D o not add to previous draw Performed By: #### 4 1000, 94174, 38227, 45263 #### [facility] [address] [place] [address], [place] Chloride molar conc 99 mmol/L Normal 98-107 [facility] Comment on above: Order Comment: No: D o not add to previous draw Performed By: #### 4 1000, 26499, 31562, 05590 #### [facility] [address] [place] [address], [place] CO2 molar conc 21 mmol/L Normal 21-31 [facility] Comment on above: Order Comment: No: D o not add to previous draw Performed By: #### 4 1000, 23358, 32134, 55770 #### [facility] [address] [place] [address], [place] Creatinine mass conc 0.94 mg/dL Normal 0.60-1.20 [facility] Comment on above: Order Comment: No: D o not add to previous draw Performed By: #### 4 1000, 80429, 17585, 45625 #### [facility] [address] [place] [address], [place] GFR/1.73 sq M predicted among blacks MDRD vol rate/area (S/P/Bld) mL/min/{1.73_m2} Normal >60 [facility] Comment on above: Order Comment: No: D o not add to previous draw Performed By: #### 4 1000, 55583, 14582, 90534 #### [facility] [address] [place] [address], [place] GFR/1.73 sq M predicted among non-blacks MDRD vol rate/area (S/P/Bld) mL/min/{1.73_m2} Normal >60 [facility] Comment on above: Order Comment: No: D o not add to previous draw Performed By: #### 4 1000, 47571, 01637, 45762 #### [facility] [address] [place] [address], [facility] Glucose mass conc 317 mg/dL High 70-100 [facility] Comment on above: Order Comment: No: D o not add to previous draw Performed By: #### 4 1000, 97380, 18282, 65710 #### [facility] [address] [place] [address], [place] Potassium molar conc 4.3 mmol/L Normal 3.5-5.1 [facility] Comment on above: Order Comment: No: D o not add to previous draw Performed By: #### 4 1000, 65718, 85314, 80771 #### [facility] [address] [place] [address], [place] Protein mass conc 6.7 g/dL Normal 6.0-8.3 [facility] Comment on above: Order Comment: No: D o not add to previous draw Performed By: #### 4 1000, 04684, 93134, 64710 #### [facility] [address] [place] [address], [place] Sodium molar conc 131 mmol/L Low 136-145 [facility] Comment on above: Order Comment: No: D o not add to previous draw Performed By: #### 4 1000, 48529, 45719, 68068 #### [facility] [address] [place], [place] [address] [place] [address] Urea nitrogen mass conc 17 mg/dL Normal 7-25 [facility] Comment on above: Order Comment: No: D o not add to previous draw Performed By: #### 4 1000, 11831, 95708, 64933 #### [facility] [address] [place], [place] [address] [place] [address] CTA HEADon 04-28-2018 CTA HEAD [facility] Department of Radiology [address] [place] [phone] Patient Name: KYLE POWELL : 1955 Sex: [...] findings. Electronically signed by:Leonides Velásquez. Transcribed by: [email or web address], User Resident: ANNY SCHAFER Electronically Signed by: LEONIDES VELÁSQUEZ @ 04/29/2018 09:17 AM I personally read this/these film(s) with this resident Normal [facility] Comment on above: Order Comment: No: D o not add to previous draw CTA NECKon 04-28-2018 CTA NECK [facility] Department of Radiology [address] [place] [phone] Patient Name: KYLE POWELL : 1955 [...] findings. Electronically signed by:Leonides Velásquez. Transcribed by: [email or web address], User Resident: ANNY SCHAFER Electronically Signed by: LEONIDES VELÁSQUEZ @ 04/29/2018 09:17 AM I personally read this/these film(s) with this resident Normal [facility] MAGNESIUM BLOODon 04-28-2018 Magnesium mass conc 1.7 mg/dL Low 1.9-2.7 [facility] Comment on above: Order Comment: No: D o not add to previous draw Performed By: #### 4 1000, 81020, 65791, 02128 #### [facility] [address] [place] [address], [facility] PHOSPHORUS BLOODon 8 Phosphate mass conc 4.4 mg/dL Normal 2.5-5.0 [facility] Comment on above: Order Comment: No: D o not add to previous draw Performed By: #### 4 1000, 35706, 39890, 98442 #### [facility] [address] [place] [address], [facility] POC GLUCOSE LABon 04-28-2018 Glucose mass conc 325 mg/dL High 70-100 [facility] Comment on above: Performed By: #### 8 5499 #### [facility] [address] [place] [address], [facility] PROTHROMBIN TIMEon 8 INR Coag RelTime (PPP) 1.03 {INR} Normal 0.91-1.16 [facility] Comment on above: Order Comment: No: [...] CHEST 1995;[id number]. Performed By: #### 5 7307, 23096 #### [facility] [address] Prothrombin time (PT) Coag time (PPP) 13.5 s Normal 12.3-14.8 [facility] Comment on above: Order Comment: No: D o not add to previous draw Result Comment: ALL RESULTS MUST BE INTERPRETED WITH RESPECT TO BLOOD DRAWING ARTIFACT OR DILUTION ERROR OF ANTICOAGULANT AT THE TIME OF SAMPLING. Performed By: #### 5 7307, 55500 #### [facility] [address] TROPONIN-Ion 04-28-2018 Troponin I.cardiac mass conc 0.03 ng/mL Normal 0.00-0.04 [facility] Comment on above: Result Comment: REFE RENCE RANGES: 0.00 - 0.04 ng/ml NORMAL 0.05 - 0.50 ng/ml INDETERMINATE > 0.50 ng/ml CONSISTENT WITH AN M.I. Performed By: #### 4 1000, 70035, 26922, 48128 #### [facility] [facility] [address] [place] [address], [facility] Moustapha 10-26-2017 CNOV Office Visit (GASTBD) SHERRY,COKOIE NE C ([id number]) 1955 FDate Time Provider Department10/26/17 8:20 AM CARLOS EDUARDO VAN During your visit today, we recorded the following information about you: Temperature Pulse Respiration Blood pressure 97.7 degrees 59/minute 16/minute 136/71 Weight Height 110.7 kg 1.6 Liv Bailey SENIOR ACCOUNTS PAYABLE CLERK [facility]2017 [facility]: [facility]: Lab is [...] at least one day prior to the scheduledexam.[facility] RADIOLOGY: Room 101-SRadiology hours of operation [...] limited to:? Cold and Flu symptoms? Conjunctivitis ([facility])? Ear and throat infections? Minor bumps and cuts? Seasonal allergies? Simple sprains and strains? Skin rashes? Sinus infections? Urinary tract infections (Patients must be at least 5 years old)? Upper respiratory infections.To schedule a Specialty appointment or schedule a test, please [phone], and the semiautomatic taper operator will will assist you.Sheri Bailey LPN [...] and Past Histories independentlygathered by the clinical production support supervisor and the remaining scribed noteaccurately describes my [...] dysphagiaHistory coronary artery disease status post multiple WA's with history ofcoronary artery stent placementInsulin-dependen t diabetes mellitusPLAN:Patient is now eat low residue dietVirtual visit in 3 weeks-Will scheduleThe majority of the visit was spent counseling and/or coordinating care for thepatient. Oidn-gh-zjzm time was 60 minutes.STAFF PHYSICIANDaSita White Provider: SELF [200]Allergies As of Date: 10/26/2017(No Known Allergies)Date Reviewed: 10/26/2017Reviewed by: Sheri Bailey LPN - Fully AssessedReason for Visit: Consult [502]Primary Visit Diagnosis:Diarrhea, unspecified type [R19.7] Other Visit Diagnoses:IDDM (insulin dependent diabetes mellitus) (HCC) [E11.9, Z79.4] CAD in [place] artery [I25.10]Prescriptions as of 10/26/2017 Sig: DIPHENOXYLATE-ATROPINE [...] Date: 10/26/2017(None) Other instructions from your clinician: [facility] LAB FACTS: Room 14N LAB HOURS: Lab [...] one day prior to the scheduled exam. [facility] RADIOLOGY: Room 101-S Radiology hours of [...] TIMES, visit the following link for details. [email or web address] [0]=[facility] icsAND Reasons for visits limited to: ? Cold and Flu symptoms ? Conjunctivitis ([facility]) ? Ear and throat infections ? Minor bumps and cuts ? Seasonal allergies ? Simple sprains and strains ? Skin rashes ? Sinus infections ? Urinary tract infections (Patients must be at least 5 years old) ? Upper respiratory infections. To schedule a Specialty appointment or schedule a test, please call [phone], and the semiautomatic taper operator will will assist you. Status:Closed by CARLOS EDUARDO VAN MD on 10/26/17 [facility] PROGRESSon 10-26-2017 PROGRESS HNO ID: [id number] thor: Sheri Bailey LPNService: (none)Author Type: (none)Type: [...] and Past Histories independentlygathered by the clinical production support supervisor and the remaining scribed noteaccurately describes my [...] dysphagiaHistory coronary artery disease status post multiple WA's with history ofcoronary artery stent placementInsulin-dependen t diabetes mellitusPLAN:Patient is now eat low residue dietVirtual visit in 3 weeks-Will scheduleThe majority of the visit was spent counseling and/or coordinating carefor the patient. Spia-kb-ksvy time was 60 minutes.STAFF PHYSICIANCarlos Eduardo Van MD Normal [facility] Vital Signs Date Time Vital Sign Value Performing Clinician Facility 12-22-2024 11:44-0400 Body height 157.5 cm Faraz Osman MD Work Phone: [facility] 12-22-2024 11:44-0400 Body mass index (BMI) [Ratio] 36.4 kg/m2 Faraz Osman MD Work Phone: [facility] 12-22-2024 11:44-0400 Body weight 90.27 kg Faraz Osman MD Work Phone: [facility] 12-22-2024 11:44-0400 Diastolic blood pressure 72 mm[Hg] Faraz Osman MD Work Phone: [facility] 12-22-2024 11:44-0400 Heart rate 64 /min Faraz Osman MD Work Phone: [facility] 12-22-2024 11:44-0400 SaO2% (BldA) [Mass fraction] 97 % Faraz Osman MD Work Phone: [facility] 12-22-2024 11:44-0400 Systolic blood pressure 128 mm[Hg] Faraz Osman MD Work Phone: [facility] 12-08-2024 15:55-0400 Body height 157.5 cm Faraz Osman MD Work Phone: [facility] 12-08-2024 15:55-0400 Body mass index (BMI) [Ratio] 36.95 kg/m2 Faraz Osman MD Work Phone: [facility] 12-08-2024 15:55-0400 Body weight 91.63 kg Faraz Osman MD Work Phone: [facility] 12-08-2024 15:55-0400 Diastolic blood pressure 74 mm[Hg] Faraz Osman MD Work Phone: [facility] 12-08-2024 15:55-0400 Heart rate 91 /min Faraz Osman MD Work Phone: [facility] 12-08-2024 15:55-0400 SaO2% (BldA) [Mass fraction] 97 % Faraz Osman MD Work Phone: [facility] 12-08-2024 15:55-0400 Systolic blood pressure 136 mm[Hg] Faraz Osman MD Work Phone: [facility] 09-29-2024 14:21-0500 Body height 157.5 cm Faraz Osman MD Work Phone: [facility] 09-29-2024 14:21-0500 Body mass index (BMI) [Ratio] 37.68 kg/m2 Faraz Osman MD Work Phone: [facility] 09-29-2024 14:21-0500 Body weight 93.44 kg Faraz Osman MD Work Phone: [facility] 09-29-2024 14:21-0500 Diastolic blood pressure 78 mm[Hg] Faraz Osman MD Work Phone: [facility] 09-29-2024 14:21-0500 Heart rate 77 /min Faraz Osman MD Work Phone: [facility] 09-29-2024 14:21-0500 SaO2% (BldA) [Mass fraction] 99 % Faraz Osman MD Work Phone: [facility] 09-29-2024 14:21-0500 Systolic blood pressure 126 mm[Hg] Faraz Osman MD Work Phone: [facility] 09-10-2024 11:26-0500 Body height 157.5 cm Faraz Osman MD Work Phone: [facility] 09-10-2024 11:26-0500 Body mass index (BMI) [Ratio] 37.13 kg/m2 Faraz Osman MD Work Phone: [facility] 09-10-2024 11:26-0500 Body weight 92.08 kg Faraz Osman MD Work Phone: [facility] 09-10-2024 11:26-0500 Diastolic blood pressure 70 mm[Hg] Faraz Osman MD Work Phone: [facility] 09-10-2024 11:26-0500 Heart rate 74 /min Faraz Osman MD Work Phone: [facility] 09-10-2024 11:26-0500 SaO2% (BldA) [Mass fraction] 97 % Faraz Osman MD Work Phone: [facility] 09-10-2024 11:26-0500 Systolic blood pressure 128 mm[Hg] Faraz Osman MD Work Phone: [facility] 09-03-2024 08:35-0500 Body height 157.5 cm Faraz Osman MD Work Phone: [facility] 09-03-2024 08:35-0500 Body mass index (BMI) [Ratio] 37.31 kg/m2 Faraz Osman MD Work Phone: [facility] 09-03-2024 08:35-0500 Body weight 92.53 kg Faraz Osman MD Work Phone: [facility] 09-03-2024 08:35-0500 Diastolic blood pressure 84 mm[Hg] Faraz Osman MD Work Phone: [facility] 09-03-2024 08:35-0500 Heart rate 83 /min Faraz Osman MD Work Phone: [facility] 09-03-2024 08:35-0500 SaO2% (BldA) [Mass fraction] 97 % Faraz Osman MD Work Phone: [facility] 09-03-2024 08:35-0500 Systolic blood pressure 136 mm[Hg] Faraz Osman MD Work Phone: [facility] 08-11-2024 14:45-0500 Body mass index (BMI) [Ratio] 38.19 kg/m2 Christy Hemmer PA Work Phone: [facility] 08-11-2024 14:45-0500 Body weight 94.71 kg Christy Hemmer PA Work Phone: [facility] 08-11-2024 14:45-0500 Diastolic blood pressure 70 mm[Hg] Christy Hemmer PA Work Phone: [facility] 08-11-2024 14:45-0500 Heart rate 89 /min Christy Hemmer PA Work Phone: [facility] 08-11-2024 14:45-0500 Respiratory rate 17 /min Christy Hemmer PA Work Phone: [facility] 08-11-2024 14:45-0500 SaO2% (BldA) [Mass fraction] 97 % Christy Hemmer PA Work Phone: [facility] 08-11-2024 14:45-0500 Systolic blood pressure 120 mm[Hg] Christy Hemmer PA Work Phone: [facility] 07-09-2024 14:51-0400 Body height 157.5 cm Darrel Edwards CRUSHER TENDER Work Phone: [facility] 07-09-2024 14:51-0400 Body mass index (BMI) [Ratio] 38.41 kg/m2 Darrel Edwards CRUSHER TENDER Work Phone: [facility] 07-09-2024 14:51-0400 Body weight 95.25 kg Darrel Edwards CRUSHER TENDER Work Phone: [facility] 07-09-2024 14:51-0400 Diastolic blood pressure 88 mm[Hg] Darrel Edwards CRUSHER TENDER Work Phone: [facility] 07-09-2024 14:51-0400 Heart rate 65 /min Darrel Edwards CRUSHER TENDER Work Phone: [facility] 07-09-2024 14:51-0400 SaO2% (BldA) [Mass fraction] 97 % Darrel Edwards CRUSHER TENDER Work Phone: [facility] 07-09-2024 14:51-0400 Systolic blood pressure 138 mm[Hg] Darrel Edwards CRUSHER TENDER Work Phone: [facility] 06-11-2024 14:11-0400 Body height 157.5 cm Faraz Osman MD Work Phone: [facility] 06-11-2024 14:11-0400 Body mass index (BMI) [Ratio] 38.59 kg/m2 Faraz Osman MD Work Phone: [facility] 06-11-2024 14:11-0400 Body weight 95.71 kg Faraz Osman MD Work Phone: [facility] 06-11-2024 14:11-0400 Diastolic blood pressure 70 mm[Hg] Faraz Osman MD Work Phone: [facility] 06-11-2024 14:11-0400 Heart rate 90 /min Faraz Osman MD Work Phone: [facility] 06-11-2024 14:11-0400 SaO2% (BldA) [Mass fraction] 96 % Faraz Osman MD Work Phone: [facility] 06-11-2024 14:11-0400 Systolic blood pressure 126 mm[Hg] Faraz Osman MD Work Phone: [facility] 11-06-2023 14:09-0500 Body height 157.5 cm Jerson Kumari DO Work Phone: [facility] 11-06-2023 14:09-0500 Body mass index (BMI) [Ratio] 39.87 kg/m2 Jerson Kumari DO Work Phone: [facility] 11-06-2023 14:09-0500 Body weight 98.88 kg Jerson Kumari DO Work Phone: [facility] 12-02-2022 13:40-0500 Body height 160.02 cm Yoana Drew Other [employer] Other 12-02-2022 13:40-0500 Body mass index (BMI) [Ratio] 39.85 kg/m2 Yoana Drew Other [employer] Other 12-02-2022 13:40-0500 Body temperature 98.4 [degF] Yoana Drew Other [employer] Other 12-02-2022 13:40-0500 Body weight 102.06 kg Yoana Drew Other [employer] Other 12-02-2022 13:40-0500 Diastolic blood pressure 98 mm[Hg] Yoana Drew Other [employer] Other 12-02-2022 13:40-0500 Respiratory rate 18 /min Yoana Drew Other [employer] Other 12-02-2022 13:40-0500 SaO2% (BldA) [Mass fraction] 97 % Yoana Drew Other [employer] Other 12-02-2022 13:40-0500 Systolic blood pressure 160 mm[Hg] Yoana Drew Other [employer] Other 03-22-2022 09:34-0400 Body temperature 97.8 [degF] II Faraz Dawson Work Phone: [facility] 03-22-2022 09:34-0400 Body weight 100.69 kg II Faraz Osman Work Phone: [facility] 03-22-2022 09:34-0400 Diastolic blood pressure 78 mm[Hg] II Faraz Osman Work Phone: [facility] 03-22-2022 09:34-0400 Heart rate 78 /min II Faraz Osman Work Phone: [facility] 03-22-2022 09:34-0400 Respiratory rate 18 /min II Faraz Osman Work Phone: [facility] 03-22-2022 09:34-0400 SaO2% (BldA) [Mass fraction] 98 % II Faraz Osman Work Phone: [facility] 03-22-2022 09:34-0400 Systolic blood pressure 169 mm[Hg] II Faraz Osman Work Phone: [facility] 02-20-2022 11:52-0400 Body temperature 98.2 [degF] II Faraz Osman Work Phone: [facility] 02-20-2022 11:52-0400 Body weight 101.2 kg II Faraz Osman Work Phone: [facility] 02-20-2022 11:52-0400 Diastolic blood pressure 60 mm[Hg] II Faraz Osman Work Phone: [facility] 02-20-2022 11:52-0400 Heart rate 77 /min II Faraz Osman Work Phone: [facility] 02-20-2022 11:52-0400 Respiratory rate 18 /min II Faraz Osman Work Phone: [facility] 02-20-2022 11:52-0400 SaO2% (BldA) [Mass fraction] 97 % II Faraz Osman Work Phone: [facility] 02-20-2022 11:52-0400 Systolic blood pressure 177 mm[Hg] II Faraz Osman Work Phone: [facility] 01-18-2022 13:43-0400 Body temperature 98.8 [degF] II Faraz Osman Work Phone: [facility] 01-18-2022 13:43-0400 Body weight 102 kg II Faraz Osman Work Phone: [facility] 01-18-2022 13:43-0400 Diastolic blood pressure 72 mm[Hg] II Faraz Osman Work Phone: [facility] 01-18-2022 13:43-0400 Heart rate 80 /min II Faraz Osman Work Phone: [facility] 01-18-2022 13:43-0400 Respiratory rate 22 /min II Faraz Osman Work Phone: [facility] 01-18-2022 13:43-0400 SaO2% (BldA) [Mass fraction] 98 % II Faraz Osman Work Phone: [facility] 01-18-2022 13:43-0400 Systolic blood pressure 169 mm[Hg] II Faraz Osman Work Phone: [facility] 01-12-2022 13:02-0400 Body temperature 98 [degF] II Faraz Osman Work Phone: [facility] 01-12-2022 13:02-0400 Body weight 101.15 kg II Faraz Osman Work Phone: [facility] 01-12-2022 13:02-0400 Diastolic blood pressure 82 mm[Hg] II Faraz Osman Work Phone: [facility] 01-12-2022 13:02-0400 Heart rate 72 /min II Faraz Osman Work Phone: [facility] 01-12-2022 13:02-0400 Systolic blood pressure 177 mm[Hg] II Faraz Osman Work Phone: [facility] 12-20-2021 12:20-0400 Diastolic blood pressure 50 mm[Hg] II Faraz Osman Work Phone: [facility] 12-20-2021 12:20-0400 Heart rate 62 /min II Faraz Osman Work Phone: [facility] 12-20-2021 12:20-0400 Respiratory rate 16 /min II Faraz Osman Work Phone: [facility] 12-20-2021 12:20-0400 SaO2% (BldA) [Mass fraction] 99 % II Faraz Osman Work Phone: [facility] 12-20-2021 12:20-0400 Systolic blood pressure 140 mm[Hg] II Faraz Osman Work Phone: [facility] 12-20-2021 09:24-0400 Body height 160.02 cm II Faraz Osman Work Phone: [facility] 12-20-2021 09:24-0400 Body mass index (BMI) [Ratio] 40.9 kg/m2 II Faraz Osman Work Phone: [facility] 12-20-2021 09:24-0400 Body weight 104.77 kg II Faraz Osman Work Phone: [facility] 12-20-2021 06:25-0400 Body temperature 98.6 [degF] II Faarz Osman Work Phone: [facility] 11-25-2021 11:42-0500 Body weight 102.96 kg II Faraz Osman Work Phone: [facility] 11-25-2021 11:42-0500 Diastolic blood pressure 101 mm[Hg] II Faraz Osman Work Phone: [facility] 11-25-2021 11:42-0500 Heart rate 84 /min II Faraz Osman Work Phone: [facility] 11-25-2021 11:42-0500 Respiratory rate 16 /min II Faraz Osman Work Phone: [facility] 11-25-2021 11:42-0500 SaO2% (BldA) [Mass fraction] 96 % II Faraz Osman Work Phone: [facility] 11-25-2021 11:42-0500 Systolic blood pressure 188 mm[Hg] II Faraz Osman Work Phone: [facility] 11-25-2021 11:10-0500 Body height 158.75 cm II Faraz Dawson Work Phone: [facility] Encounters Encounter Date Encounter Type Care Provider Facility Start: 12-24-2024 End: 12-24-2024 Clinisync Result Encounter Generic External Data Provider [facility] External Department Unsolicited Start: 12-24-2024 End: 12-24-2024 Clinisync Result Encounter Generic External Data Provider [facility] External Department Unsolicited Start: 12-22-2024 End: 12-22-2024 Office outpatient visit 15 minutes Faraz Osman MD Work Phone: [facility] Comment on above: Type 2 diabetes carl itus with diabetic neuropathy, with long- term current use of insulin (CMS/HCC) (Primary Dx); Spinal stenosis of lumbar region, unspecified whether neurogenic claudication present Start: 12-22-2024 End: 12-22-2024 ambulatory FARAZ OSMAN Not Available Start: 12-11-2024 End: 12-11-2024 ambulatory [facility] Start: 12-08-2024 End: 12-08-2024 Office outpatient visit 25 minutes Faraz Osman MD Work Phone: [facility] Comment on above: Spinal stenosis of l umbar region, unspecified whether neurogenic claudication present (Primary Dx); Type 2 diabetes mellitus with diabetic neuropathy, with long-term current use of insulin (CMS/HCC); 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 affecting unspecified side (CMS/HCC); Morbid (severe) obesity due to excess calories (CMS/HCC); Essential (primary) hypertension (CMS/HCC); Body mass index (BMI) 38.0-38.9, adult Start: 12-08-2024 End: 12-08-2024 ambulatory FARAZ OSMAN Not Available Start: 12-08-2024 End: 12-08-2024 Bamboo flowsheet Faraz Osman MD Work Phone: [facility] Start: 12-08-2024 End: 12-08-2024 Bamboo flowsheet Faraz Osman MD Work Phone: [facility] Start: 11-28-2024 End: 12-24-2024 Telephone encounter Mary Ramsay PT [facility] Comment on above: PT Initial Eval (Rev erification needed to update insurance; then resubmit referral for auth.); FU x1 Start: 11-27-2024 End: 11-27-2024 ambulatory [facility] Start: 11-26-2024 End: 11-26-2024 ambulatory [facility] Start: 11-26-2024 End: 11-26-2024 Encounter for other preprocedural examination [facility] Start: 09-29-2024 End: 09-29-2024 Office outpatient visit [...] falls Start: 09-19-2024 End: 09-19-2024 Bamboo flowsheet sOwaldo Brody SEO INTERN [facility] Start: 09-19-2024 End: 09-19-2024 Bamboo flowsheet Oswaldo Brody [employer] INTER[employer] [facility] Start: 09-19-2024 End: 09-19-2024 Treatment Oswaldo Brody [employer] INTER[employer] [facility] Comment on above: Balance disorder (Pr imary Dx); Frequent falls Start: 09-16-2024 End: 09-17-2024 Treatment Oswaldo Brody SEO INTERN [facility] Comment on above: Balance disorder (Pr imary Dx); Frequent falls Start: 09-16-2024 End: 09-16-2024 Bamboo flowsheet Oswaldo Brody SEO INTERN [facility] Start: 09-16-2024 End: 09-16-2024 Bamboo flowsheet Oswaldo Brody SEO INTERN [facility] Start: 09-15-2024 End: 09-15-2024 [...] Dx); Frequent falls Start: 09-10-2024 End: 09-10-2024 ambulatory [facility] Start: 09-10-2024 End: 09-10-2024 Assay of [...] neuropathy, with long-term current use of insulin ([facility]); Estrogen deficiency; Breast screening Start: 09-10-2024 End: 09-10-2024 ambulatory FARAZ OSMAN Not Available Start: 09-09-2024 End: 09-09-2024 Treatment Oswaldo Brody [employer] INTER[employer] [facility] Comment on above: Balance [...] neuropathy, with long-term current use of insulin ([facility]); 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; History of stroke Start: 09-03-2024 End: 09-03-2024 ambulatory FARAZHOMER OSMAN Not Available Start: 09-02-2024 End: 09-02-2024 Bamboo flowsheet Oswaldo Brody SEO INTERN [facility] Start: 09-02-2024 End: 09-02-2024 Bamboo flowsheet Oswaldo Brody SEO INTERN [facility] Start: 09-02-2024 End: 09-02-2024 Treatment Oswaldo Brody SEO INTERN [facility] Comment on above: Balance disorder (Pr imary Dx); Frequent falls Start: 08-26-2024 End: 08-26-2024 Treatment Oswaldo Brody SEO INTERN [facility] Comment on above: Balance [...] Office outpatient visit 25 minutes Darrel Edwards CRUSHER TENDER Work Phone: [facility] Comment on above: Impacted cerumen of left ear (Primary Dx) Start: 07-09-2024 End: 07-09-2024 ambulatory DARREL EDWARDS Not Available Start: 06-11-2024 End: 06-11-2024 Office outpatient visit 25 minutes Faraz Osman MD Work Phone: [facility] Comment on above: Type 2 diabetes carl itus with diabetic neuropathy, with long- term current use of insulin (CMS/HCC); Morbid (severe) obesity due to excess calories (CMS/HCC); Essential (primary) hypertension (CMS/HCC); Body mass index (BMI) 38.0-38.9, adult; Immunodeficiency due to conditions classified elsewhere (CMS/HCC); Malignant neoplasm of upper-outer quadrant of left female breast (CMS/HCC); Atherosclerotic heart disease of [place] coronary artery with unspecified angina pectoris (CMS/HCC) Start: 06-11-2024 End: 06-11-2024 ambulatory FARAZ OSMAN Not Available Start: 06-11-2024 End: 06-11-2024 Bamboo flowsheet Faraz Osman MD Work Phone: [facility] Start: 06-11-2024 End: 06-11-2024 Bamboo flowsheet Faraz Osman MD Work Phone: [facility] Start: 03-10-2024 End: 03-10-2024 ambulatory FARAZ Lynn DAWSON Not Available Start: 02-26-2024 End: 02-26-2024 ambulatory ARANZA AGUDELO Not Available Start: 02-21-2024 End: 02-21-2024 ambulatory FARAZ Lynn OSMAN Not Available Start: 02-14-2024 ambulatory FARAZ Lynn DAWSON [facility] Start: 02-12-2024 End: 02-14-2024 Emergency department patient visit FARAZ B DAWSON [facility] Start: 02-11-2024 End: 02-11-2024 ambulatory FARAZ Lynn OSMAN Not Available Start: 02-04-2024 End: 02-04-2024 ambulatory FARAZ Lynn DAWSON Not Available Start: 12-31-2023 End: 12-31-2023 ambulatory FARAZ Lynn OSMAN Not Available Start: 11-13-2023 End: 11-13-2023 ambulatory Roseann Stovall OT Work Phone: [facility] Comment on above: Carpal tunnel syndro me, bilateral (Primary Dx); Hand weakness Start: 11-13-2023 Bamboo flowsheet Roseann Canela kston OT Work Phone: [facility] Start: 11-13-2023 Bamboo flowsheet Roseann Canela kston OT Work Phone: [facility] Start: 11-09-2023 Bamboo flowsheet Roseann Canela kston OT Work Phone: [facility] Start: 11-09-2023 Bamboo flowsheet Roseann Canela kston OT Work Phone: [facility] Start: 11-09-2023 End: 11-09-2023 ambulatory Roseann Stovall OT Work Phone: [facility] Comment on above: Carpal tunnel syndro me, bilateral (Primary Dx); Bilateral carpal tunnel syndrome; Hand weakness Start: 11-06-2023 End: 11-06-2023 Follow-up encounter Jerson Kumari DO Work Phone: [facility] Comment on above: Bilateral carpal rossi christin syndrome (Primary Dx) Start: 11-06-2023 End: 03-10-2024 ambulatory FARAZ OSMAN Facility[place] Start: 11-06-2023 End: 03-10-2024 Recurring FARAZ OSMAN [facility] Start: 11-05-2023 Chart abstracting Jerson yarbrough DO Work Phone: [facility] Start: 02-14-2023 End: 02-14-[address] FARAZ OSMAN Facility: Start: 01-04-2023 End: 01-05-[address] FARAZ OSMAN Facility:[facility] Start: 12-02-2022 End: 12-02-2022 ambulatory Yoana Drew Other [employer] Other Start: 12-02-2022 Office outpatient vi sit [address] [facility] Start: 11-06-2022 End: 11-07-[address] GARRETT MCDONALD Facility:[facility] Start: 07-25-2022 End: 07-26-[address] FARAZ OSMAN Facility:[facility] Start: 06-13-2022 End: 06-14-[address] FARAZ OSMAN Facility:[facility] Start: 05-29-2022 End: 05-29-2022 ambulatory KAROLINE SHAW . Facility:[facility] Start: 05-15-2022 End: 10-11-2022 Recurring FARAZ OSMAN [facility] Start: 03-22-2022 End: 03-22-2022 ambulatory Faraz Osman Facility:[facility] Start: 03-22-2022 End: 03-22-2022 Registered Recurring II Farza Osman Work Phone: [facility] Start: 03-07-2022 End: 03-08-[address] FARAZ OSMAN Facility: Start: 02-20-2022 End: 02-20-2022 Registered Recurring II [facility]homer [facility]man [facility] Start: 02-14-2022 End: 02-14-2022 Registered Recurring II Faraz Osman [facility] Start: 01-18-2022 End: 01-18-2022 Registered Recurring II Faraz Osman Work Phone: [facility] Start: 01-12-2022 End: 01-12-2022 Registered Recurring II Farazhomer Osman Work Phone: [facility] Start: 12-20-2021 End: 12-20-2021 Admission to same day surgery center II Farazhomer Osman [facility] [place] Start: 12-16-2021 End: 12-16-2021 Patient encounter procedure II Faraz Osman Work Phone: [facility] Start: 12-06-2021 End: 12-06-2021 Patient encounter procedure II Faraz Osman Work Phone: [facility] Start: 11-25-2021 Registered Recurring II Faraz Osman [facility] Phone: [facility] Start: 11-14-2018 End: 11-18-2018 Evaluation and management of inpatient FARAZ DAWSON Facility:[facility] Start: 09-05-2018 End: 09-07-2018 Evaluation and management of inpatient JONAH SANABRIA Facility:[facility] Start: 04-28-2018 End: 05-03-2018 Evaluation and management of inpatient WILMAR GIFFORDEY Facility:[facility] Start: 10-26-2017 End: 10-26-2017 Ambulatory CARLOS EDUARDO VAN [facility] Procedures Date Procedure Procedure Detail Performing Clinician Start: 12-24-2024 NM CALE PERF SPECT REST STR Generic External Data Provider Start: 12-22-2024 Hemoglobin glycosylated a1c Faraz Osman MD Work Phone: Start: 09-10-2024 Hemoglobin glycosylated a1c Faraz Osman MD Work Phone: Start: 07-09-2024 Removal impacted cer umen irrigation/lvg unilat Darrel Edwards CRUSHER TENDER Work Phone: Start: 06-11-2024 Hemoglobin glycosylated a1c [...] Osman Work Phone: Start: 07-07-2020 Colonoscopy Jerson Blade yarbrough DO Work Phone: Start: 11-15-2018 EXCISION OF STOMACH, ENDO, DIAGN DOV OSCAR Start: 09-06-2018 DILATION OF CORONARY ARTERY, ONE ARTERY, PERC APPROACH ANA CROMIER Start: 09-06-2018 FLUOROSCOPY OF MULT COR ART USING L OSM CONTRAST JENNIFER CORMIER Start: 09-06-2018 MEASURE OF CARDIAC S AMPL \T\ PRESSURE, L HEART, PERC APPROACH JENNIFER CORMIER Start: 04-29-2018 INTRODUCE OF OTH THE RAP SUBST INTO RESP TRACT, VIA OPENING MIGUEL DEMPSEY Plan of Treatment Date Care Activity Detail Author Start: 07-07-2030 Screening for malign ant neoplasm of colon [facility] Start: 04-15-2025 Glaucoma screening Diabetes: R etinopathy Screening [facility] Start: 03-24-2025 Hemoglobin A1c measurement Diabetes: Hemoglobin A1C [facility] Start: 02-03-2025 Urine screening for protein Diabetes: Urine Protein Screening [facility] Start: 01-08-2025 End: 01-08-2025 Patient encounter procedure 01/08/2025 10:15 AM EDT Office Visit [facility] [address] [place] [address] Faraz Osman MD [address] [place] [address] [facility] Start: 12-22-2024 End: 12-22-2024 Patient encounter procedure 12/22/2024 11:45 AM EDT Office Visit [facility] [address] [place] [address] Faraz Osman MD [address] [place] [address] [facility] Start: 12-09-2024 Hemoglobin A1c measurement Diabetes: Hemoglobin A1C [facility] Start: 12-08-2024 End: 12-08-2024 Patient encounter procedure [facility] Comment on above: Arrived Start: 10-14-2024 End: 10-14-2024 Professional / ancillary services management [facility] Start: 10-02-2024 End: 10-02-2024 Professional / ancillary services management 10/02/2024 12:45 PM EST Ancillary Procedure [facility] [place] [facility] [address] [place] [address] [facility] Start: 09-29-2024 End: 09-29-2024 Patient encounter procedure [facility] Comment on above: Arrived Start: 09-25-2024 End: 09-25-2024 ambulatory 09/25/2024 2:30 PM EST Treatment [facility] [address] [place] [address] Mary Ramsay, PT [facility] Start: 09-23-2024 End: 09-23-2024 ambulatory 09/23/2024 11:30 AM EST Treatment [facility] [address] [place] [address] Mary Ramsay, PT [facility] Start: 09-19-2024 End: 09-19-2024 ambulatory [facility] Comment on above: Arrived Start: 09-16-2024 End: 09-16-2024 ambulatory [facility] Comment on above: Arrived Start: 09-12-2024 End: 09-12-2024 Professional / ancillary services management 09/12/2024 10:00 AM EST Ancillary Procedure [facility] [address] [facility] [address] [place] [id number] [facility] Start: 09-11-2024 End: 09-11-2024 ambulatory [facility] Start: 09-10-2024 End: 09-10-2024 Patient encounter procedure 09/10/2024 2:15 PM EST Office Visit [facility] [address] [facility] [address] [place] [phone] Faraz Osman MD [address] [facility] [address] [place] [address] [facility] Start: 09-10-2024 End: 09-10-2025 [...] Visit [facility] [address] [facility] [address] [place] [phone] Faraz Osman MD [address] [facility] [address] [place] [address] [facility] Start: 09-09-2024 End: 09-09-2024 ambulatory [facility] Start: 09-05-2024 End: 09-05-2024 ambulatory [facility] Comment on above: Arrived Start: 09-03-2024 End: 09-03-2025 Comprehensive metabolic 2000 panel - Serum or Plasma Comprehensive metabolic panel Lab Routine General weakness Type 2 diabetes mellitus with diabetic neuropathy, with long-term current use of insulin ([facility]) Expected: 09/03/2024 (Approximate), Expires: 09/03/2025 [facility] Comment on above: Expected: 09/03/2024 (Approximate), Expires: 09/03/2025 Start: 09-03-2024 End: 09-03-2025 TSH W/REFLEX TO FT4 TSH W/REFLEX TO FT4 Lab Routine General weakness Type 2 diabetes mellitus with diabetic neuropathy, with long-term current use of insulin ([facility]/HCC) Expected: 09/03/2024 (Approximate), Expires: 09/03/2025 [facility] Comment on above: Expected: 09/03/2024 (Approximate), Expires: 09/03/2025 Start: 09-03-2024 End: 09-03-2024 Patient encounter procedure 09/03/2024 8:30 AM EST Office Visit [facility] [address] [facility] [address] [place] [address] Faraz Osman MD [address] [place] [address] [facility] Start: 09-02-2024 End: 09-02-2024 ambulatory [facility] Comment on above: Arrived Start: 08-26-2024 End: 08-26-2024 ambulatory 08/26/2024 11:30 AM EST Treatment [facility] [address] [place] [address] Oswaldo Brody PTA [facility] Start: 08-20-2024 End: 08-20-2024 ambulatory [facility] Comment on above: Balance disorder; Frequent falls Start: 06-11-2024 End: 06-11-2024 Patient encounter procedure 06/11/2024 2:15 PM EDT Office Visit [facility] [address] [facility] [address] [place] [address] Faraz Osman MD [address] [facility] [address] [place] [address] Arrived [facility] Comment on above: Arrived Start: 06-10-2024 Hemoglobin A1c measurement Diabetes: Hemoglobin A1C [facility] Start: 06-01-2024 Influenza vaccination Influenza Vacc ine (#1) [facility] Start: 04-26-2024 Glaucoma screening Diabetes: R etinopathy Screening [facility] Start: 12-31-2023 End: 12-31-2023 Patient encounter procedure 12/31/2023 1:30 PM EDT Office Visit [facility] [address] [facility] [address] [place] [address] Faraz Osman MD [address] [facility] [address] [place] [address] [facility] Start: 12-18-2023 End: 12-18-2023 Patient encounter procedure 12/18/2023 2:45 PM EDT Office Visit [facility] [address] [facility] [place] [phone] Jerson Kumari DO [address] [facility] [place] [id number] [facility] Start: 12-15-2023 Medicare Annual Well ness (AWV) Medicare Annual Wellness (AWV) [facility] Start: 12-15-2023 Urine screening for protein Diabetes: Urine Protein Screening [facility] Start: 11-23-2023 End: 11-23-2023 ambulatory 11/23/2023 2:30 PM EST Treatment [facility] [address] [facility] [address] [place] [address] Roseann Stovall, OT [address] [facility] [address] [place] [address] [facility] Start: 11-20-2023 End: 11-20-2023 ambulatory 11/20/2023 2:30 PM EST Treatment [facility] [address] [place] [address] Roseann Stovall, OT [address] [place] [address] [facility] Start: 11-13-2023 End: 11-13-2023 ambulatory [facility] Comment on above: Carpal tunnel syndro me, bilateral (Primary Dx) Start: 11-13-2023 Hemoglobin A1c measurement Diabetes: Hemoglobin A1C [facility] Start: 11-09-2023 End: 11-09-2023 ambulatory 11/09/2023 1:30 PM EST Evaluation [facility] [address] [place] [address] Roseann Stovall, OT [address] [place] [address] [facility] Start: 11-06-2023 End: 11-06-2023 Patient encounter procedure 11/06/2023 2:00 PM EST Office Visit [facility] [address] [place] [phone] Jerson Kumari DO [address] [facility] [place], [place] [id number] [facility] Start: 04-20-2020 Pneumococcal Vaccine : 65+ Years (2 - PCV) Pneumococcal Vaccine: 65+ Years (2 - PCV) [facility] Start: 04-20-2020 Pneumococcal Vaccine : 65+ Years (2 of 2 - PCV) Pneumococcal Vaccine: 65+ Years (2 of 2 - PCV) [facility] Start: 1955 Screening for malign ant neoplasm of colon [facility] CBC W Auto Different ial panel - Blood CBC and differential Lab Routine General weakness Type 2 diabetes mellitus with diabetic neuropathy, with long-term current use of insulin ([facility]) Ordered: 09/03/2024 [facility] Work Phone: Comment on above: Ordered: 09/03/2024 Patient referral [facility] Work Phone: Immunizations Immunization Date Immunization Notes Care Provider Cate villa 09-10-2024 Influenza, High-dose Seasonal, Quadrivalent, Preservative Free Mary Ramsay PT [facility] 07-09-2023 Influenza, High-dose Seasonal, Quadrivalent, Preservative Free Jerson Kumari DO Work Phone: [facility] 07-09-2023 influenza virus vacc ine, unspecified formulation Faraz Osman MD Work Phone: [facility] 07-05-2022 Influenza, High-dose Seasonal, Quadrivalent, Preservative Free Jerson Kumari DO Work Phone: [facility] 08-01-2021 influenza, high dose seasonal, preservative-free Jerson Kumari DO Work Phone: [facility] 12-13-2020 COVID-19 mRNA, Comir kristal (Pfizer) II Faraz Osman Work Phone: [facility] 11-22-2020 COVID-19 mRNA, Comir kristal (Pfizer) II Faraz Osman Work Phone: [facility] 07-27-2020 influenza, injectabl e, quadrivalent, preservative free Jerson Kumari DO Work Phone: [facility] 07-27-2020 zoster vaccine recombinant Jerson Kumari DO Work Phone: [facility] 07-14-2019 influenza, seasonal, injectable Jerson Kumari DO Work Phone: [facility] 07-02-2019 influenza, injectabl e, quadrivalent, preservative free Jerson Kumari DO Work Phone: [facility] 04-20-2019 pneumococcal polysaccharide vaccine, 23 valent Jerson Kumari DO Work Phone: [facility] 07-29-2018 Influenza, High-dose Seasonal, Quadrivalent, Preservative Free Jerson Kumari DO Work Phone: [facility] 07-29-2018 seasonal influenza, intradermal, preservative free Jerson Kumari DO Work Phone: [facility] 08-06-2017 influenza, injectabl e, quadrivalent, preservative free Jerson Kumari DO Work Phone: [facility] 06-04-2017 seasonal influenza, intradermal, preservative free Jerson Kumari DO Work Phone: [facility] 06-14-2015 zoster vaccine, live Jerson wallacezenon DO Work Phone: [facility] Payers Date Payer Category Payer Medicare (Managed Care) 1.2. [id number] 2024 Medicare [id number] 2024 Medicare [id number] 2022 Medicare [id number] 2021 Self-pay [id number] 2019 Medicaid [id number] 2017 Private Health Insurance [id number] 1959 Medicaid [id number] 1955 Unknown [id number] 2.16.8 40.1.554482.3.579.2.647 1955 Unknown [id number] 2.16.8 40.1.515063.3.579.2.647 1955 Unknown [id number] 2.16.8 40.1.631457.3.579.2.647 1955 Unknown [id number] 2.16.84 0.1.089630.3.579.2.593 1955 Unknown [id number] 2.16.84 0.1.744427.3.579.2.593 1955 Unknown [id number] 2.16.84 0.1.187532.3.579.2.593 1955 Unknown [id number] 2.16.84 0.1.499659.3.579.2.593 1955 Unknown [id number] 2.16.84 0.1.743330.3.579.2.593 1955 Unknown [id number] 2.16.84 0.1.134020.3.579.2.593 1955 Unknown [id number] 2.16.84 0.1.420714.3.579.2.593 1955 Unknown [id number] 2.16.8 40.1.335205.3.579.2.1286 1955 Unknown [id number] 2.16.8 40.1.785850.3.579.2.1286 1955 Unknown [id number] 2.16.8 40.1.928490.3.579.2.1286 1955 Unknown [id number] 2.16.8 40.1.151065.3.579.2.1286 1955 Unknown [id number] 2.16.8 40.1.067463.3.579.2.1286 1955 Unknown [id number] 2.16.8 40.1.621005.3.579.2.727 1955 Unknown [id number] 2.16.84 0.1.554199.3.579.2.1259 1955 Unknown [id number] 2.16.84 0.1.640727.3.579.2.1259 1955 Unknown [id number] 2.16.84 0.1.049272.3.579.2.1259 1955 Unknown [id number] 2.16.84 0.1.446136.3.579.2.1259 1955 Unknown [id number] 2.16.84 0.1.734800.3.579.2.1259 1955 Unknown [id number] 2.16.84 0.1.317045.3.579.2.1259 1955 Unknown [id number] 2.16.84 0.1.070851.3.579.2.1259 1955 Unknown [id number] 2.16.84 0.1.055351.3.579.2.1259 1955 Unknown [id number] 2.16.84 0.1.113039.3.579.2.1258 1955 Unknown [id number] 2.16.84 0.1.393769.3.579.2.1259 1955 Unknown [id number] 2.16.84 0.1.234086.3.579.2.1259 1955 Unknown [id number] 2.16.84 0.1.508079.3.579.2.125 1955 Unknown [id number] 2.16.84 0.1.604871.3.579.2.9 1955 Unknown [id number] 2.16.84 0.1.121071.3.579.2.1259 1955 Unknown [id number] 2.16.84 0.1.039997.3.579.2.1259 1955 Unknown [id number] 2.16.84 0.1.293877.3.579.2.1259 1955 Unknown [id number] 2.16.84 0.1.258568.3.579.2.1259 1955 Unknown [id number] 2.16.84 0.1.070311.3.579.2.1259 1955 Unknown [id number] 2.16.84 0.1.385807.3.579.2.1259 1955 Unknown [id number] 2.16.84 0.1.922843.3.579.2.1259 1955 Unknown [id number] 2.16.84 0.1.250410.3.579.2.1259 1955 Unknown [id number] 2.16.84 0.1.647414.3.579.2.9 1955 Unknown [id number] 2.16.84 0.1.355995.3.579.2.1259 1955 Unknown [id number] 2.16.84 0.1.241722.3.579.2.1259 Medicaid [id number] Medicare [id number] 2.1 6.840.1.983287.19 Unknown [id number] 2.16.8 40.1.275975.3.579.2.531 Social History Date Type Detail Facility Start: 12-20-2021 End: 02-20-2023 Tobacco smoking status [facility] Never smoked tobacco (finding) [facility] Start: 1955 Sex Assigned At Female [facility] Tobacco smoking status No Smokin g Status Entered [facility] Start: 07-31-2023 End: 09-10-2024 Sex Assigned At Female [facility] Start: 02-20-2023 Tobacco use and exposure Smokeless [...] Identifier Dates USE DIRECTED TWICE A DAY [id number] Start: 09-14-2022 1 strip by In Vi tro route in the morning. [id number] Start: 06-29-2023 End: 12-22-2024 1 Lancet in the morning. [id number] Start: 06-29-2023 Goals Date Patient Goal Desired Activity /State Clinical Notes 11-25-2021 to 12-24-2024 Telephone Encounter - Razia Woodruff NP - 12/24/2024 3:50 PM EDTTelephone Encounter - Razia Woodruff NP - 12/24/2024 3:50 PM EDTTelephone Encounter - Razia Woodruff NP - 11/28/2024 2:52 PM EST Note Date & Type Note Facility 12-24-2024 Telephone encounter Note No call back received. Forwarding as FYI [facility] Work Phone: 12-24-2024 Miscellaneous Notes No call back received. Forwarding as FYI Report received from insurance [employer] re: statin and MARILU/ARB medication adherence for 2023. Unclear fill history prior to May 2024, but appears pt has been on these medications half-way. Call placed to pt to discuss, VM received, msg left with call back info documented in this encounter [facility] 12-22-2024 History of Presen t illness Narrative Images from the original note were not included. HPI Diabetes Additional comments: Pt is sched for a stress test 12/24/24 Last edited by Holly Joy LPN on 12/22/2024 11:51 AM. Subjective Patient ID: Kyle Powell is a 69 y.o. female who presents for Diabetes (Pt is sched for a stress test 12/24/24). Subjective Patient is a 67 y.o. female [...] hemoglobin A1C. Home sugars: BGs range between 90-185 Diabetes Associated symptoms include chest pain. Pertinent [...] misc 1 Device every 14 (fourteen) days 6 each 3 Droplet Pen [place] 31G X 6 MM amg [facility] USE DIRECTED TWICE A DAY empagliflozin (Jardiance) 10 MG Take 1 tablet (10 mg) by mouth Daily 90 tablet 2 gabapentin (Neurontin) 300 MG capsule TAKE 1 CAPSULE BY MOUTH AT BEDTIME 90 capsule 1 insulin NPH-insulin regular (NovoLIN 70/30) (70-30) 100 UNIT/ML injection Inject 45 Units under the skin Daily with meals AND 60 Units in the evening. Take with meals. 100 mL 3 isosorbide mononitrate ER (Imdur) 30 MG 24 hr tablet Take 1 tablet (30 mg) by mouth in the morning. 90 tablet 3 Lancets 28G misc 1 Lancet in the [...] 1 tablet by sublingual route. nystatin (Nyamyc) [id number] UNIT/GM powder Apply topically Daily 60 g 2 OXcarbazepine (Trileptal) 300 MG [...] by mouth in the morning. [DISCONTINUED] Continuous Glucose Sensor (FreeStyle Yesenia 2 Sensor) misc 1 Device every 14 (fourteen) days [DISCONTINUED] gabapentin (Neurontin) 300 MG capsule Take 1 capsule (300 mg) by mouth at bedtime 90 capsule 3 [DISCONTINUED] Glucose Blood (Blood Glucose Test Strips 333) strip 1 strip by In Vitro route in the morning. 100 strip 3 No current facility-administered medications on file [...] History: Diagnosis Date CHF (congestive heart failure) ([facility]) Chicken pox CVA (cerebral vascular accident) ([facility]) Diabetic retinopathy ([facility]) DM (diabetes mellitus) ([facility]) Family history of cancer Gastric ulcer 11/2018 Heart disease Hemiplegia ([facility]) History of being hospitalized 11/2018 Upper GI Bleed, Gastric Ulcers History of being hospitalized 01/15/2022 Fall, Closed Head Injury, Hypertensive Urgency History of echocardiogram 11/14/2018 EF 60% History of invasive ductal carcinoma of breast Lt Breast Invasive Ductal Carcinoma (11/07/2021) [place]+ Her2 neg HTN (hypertension) ([facility]) Hyperlipidemia ([facility]) Kidney disease Measles Mild mitral regurgitation 11/14/2018 MAYTE (obstructive sleep apnea) Personal history of other medical treatment Left breast IDC [place] + Her 2 neg Rib fracture Left [...] NECK TONSILLECTOMY VASCULAR SURGERY Visit Vitals BP 128/72 Pulse 64 Ht 5' 2 Wt 199 lb SpO2 97% BMI 36.40 kg/m OB Status Unknown Smoking Status Never BSA 1.99 m Review of Systems Constitutional: Negative for [...] breath sounds. No wheezing, rhonchi or rales. Musculoskeletal: Left lower le+ Edema present. Skin: General: Skin is warm and dry. Neurological: General: No focal deficit present. Mental Status: She is alert and oriented to person, place, and time. Motor: Weakness present. Gait: Gait abnormal (Quad cane). Psychiatric: Mood and Affect: Mood normal. Behavior: Behavior normal. Office Visit on 12/22/2024 Component Date Value Ref Range Status Hemoglobin A1C 12/22/2024 7.1 Final Assessment/Plan Diagnoses and all orders for this visit: Type 2 diabetes mellitus with diabetic neuropathy, with long-term current use of insulin ([facility]) - glucose 4 g chewable tablet; Chew 4 tablets (16 g) if needed for low blood sugar - POCT Glycated hemoglobin, total - Needs A1C <7 for spinal surgery Follow up in about 2 weeks (around 01/05/2025) for DM- A1C. documented in this encounter [facility] 12-11-2024 Note Patient here for 3 m [facility] follow up, and pre OP Clearance for back surgery. Patient has a history of HTN, CAD, bilateral leg weakness, falls, CVA, diabetes, MAYTE and CHF. Patient denies chest pain, bleeding, palpitations, or dizziness C/o left leg swelling, SOB with exercise, fatigue all the time. Trouble sleeping due to leg pain. Patient is not using CPAP at this time. Review of Systems Cardiovascular: Positive for dyspnea on exertion (with walking) and leg swelling (left leg swelling). Respiratory: Positive for shortness of breath. Musculoskeletal: Positive for falls (leg weakness causing falls). All other systems reviewed and are negative. [facility] 12-11-2024 Note Cardiovascular Medic [facility] SUBJECTIVE Chief Complaint Patient presents with Coronary Artery Disease Pre-op Exam Kyle Powell is a 69 y.o. female here for follow-up. HPI PMHx: CAD with prior PCI (BJ to LAD with instent restenosis ), HTN, DM type II on insulin, hx CVA, venous insufficiency, HLD, MAYTE, Hx CVA - 8, Hx GI bleed CHF - 2 exacerbations 12/11/2024 She continues to have frequent falls. She reports that prior to falls, her legs give out - no LOC or dizziness. She saw Dr. Diaz with ortho. She needs lumbar surgery. She is sedentary. She reports GARCIA. She ambulates with a walker. Denies CP, orthopnea, PND, dizziness, syncope. 09/10/2024 Patient here for follow up [facility] for fall. 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 (CMS/HCC) Memory loss Lumbar radiculopathy Mild nonproliferative diabetic retinopathy of both eyes without macular edema associated with type 2 diabetes mellitus ([facility]/HCC) Moderate recurrent major depression ([facility]/HCC) Moderate major depression, single episode ([facility]) Muscle weakness Obstructive sleep apnea Polyneuropathy due to type 2 diabetes mellitus ([facility]) 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 Tremor Diabetic neuropathy ([facility]/HCC) Type 2 diabetes mellitus with diabetic neuropathy, unspecified ([facility]/HCC) Abnormal mammogram Abnormal metabolic state due to diabetes mellitus ([facility]/HCC) Attention and concentration deficit B12 deficiency Candidiasis of breast Candidiasis of skin Carotid stenosis, bilateral Carpal tunnel syndrome, bilateral Cervical spondylosis Degenerative disc disease, cervical Ductal carcinoma in situ (DCIS) of left breast Easy fatigability Gastrointestinal hemorrhage associated with gastric ulcer Invasive ductal carcinoma of left breast ([facility]/HCC) Malignant neoplasm of upper-outer quadrant of left female breast ([facility]) Mild nonproliferative diabetic retinopathy ([facility]) Neurogenic pain Polyneuropathy Retrolisthesis of vertebrae Coronary arteriosclerosis Hand weakness Type 2 diabetes mellitus with hyperglycemia, with long-term current use of insulin ([facility]) 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 Social History Tobacco Use Smoking status: Never Smokeless tobacco: Never Allergies Allergen Reactions Diphenhydramine Hives Other Reaction(s): Hives ROS Cardiovascular: Positive for dyspnea on exertion (with walking) and leg swelling (left leg swelling). Respiratory: Positive for shortness of breath. Musculoskeletal: Positive for falls (leg weakness causing falls). All other systems reviewed and are negative. OBJECTIVE Visit Vitals BP 158/72 (BP Location: Left arm, Patient Position: Sitting) Pulse 63 Ht 1.6 m (5' 3 ) Wt 90.7 kg (200 lb) SpO2 96% BMI 35.43 kg/m??? Smoking Status Never BSA 2.01 m??? Medications: Current Outpatient Medications: amLODIPine (Norvasc) 10 mg tablet, Take 5 mg by mouth in the morning., Disp: , Rfl: anastrozole (Arimidex) 1 mg [...] (one) time each day at the same time (more content not included)... [facility] 12-08-2024 History of Presen t illness Narrative Images from the original note were not included. HPI needs referral to PT Additional comments: Neuro surg is requesting referral to be sent to PT to complete prior to lumbar fusion Last edited by Holly Joy LPN on 12/08/2024 4:04 PM. Subjective Patient ID: Kyle Powell is a 69 y.o. female who presents for Diabetes and needs referral to PT (Neuro surg is requesting referral to be sent to PT to complete prior to lumbar fusion). Subjective Patient is a 67 y.o. female [...] hemoglobin A1C. Home sugars: BGs range between 100-125 Diabetes Associated symptoms include chest pain. Pertinent [...] misc 1 Device every 14 (fourteen) days 6 each 3 Droplet Pen [place] 31G X 6 MM amg [facility] USE DIRECTED TWICE A DAY empagliflozin (Jardiance) [...] (Imdur) 30 MG 24 hr tablet Take 1 tablet (30 mg) by mouth in the morning. 90 tablet 3 Lancets 28G misc 1 Lancet in the [...] 1 tablet by sublingual route. nystatin (Nyamyc) 718264 UNIT/GM powder Apply topically Daily 60 g 2 OXcarbazepine (Trileptal) 300 MG [...] mg by mouth in the morning. [DISCONTINUED] insulin lispro protamine-insulin lispro (HumaLOG Mix 75-25) (75-25) 100 UNIT/ML injection inject 60 units subcutaneously twice a day with meals and inject ... (REFER TO PRESCRIPTION NOTES). No current facility-administered medications on file prior [...] History: Diagnosis Date CHF (congestive heart failure) ([facility]) Chicken pox CVA (cerebral vascular accident) ([facility]) Diabetic retinopathy ([facility]) DM (diabetes mellitus) ([facility]) Family history of cancer Gastric ulcer 11/2018 Heart disease Hemiplegia ([facility]) History of being hospitalized 11/2018 Upper GI Bleed, Gastric Ulcers History of being hospitalized 01/15/2022 Fall, Closed Head Injury, Hypertensive Urgency History of echocardiogram 11/14/2018 EF 60% History of invasive ductal carcinoma of breast Lt Breast Invasive Ductal Carcinoma (11/07/2021) [place] Her2 neg HTN (hypertension) (CMS/[facility]) Hyperlipidemia ([facility]) Kidney disease Measles Mild mitral regurgitation 11/14/2018 MAYTE (obstructive sleep apnea) Personal history of other medical treatment Left breast IDC [place] + Her 2 neg Rib fracture Left [...] NECK TONSILLECTOMY VASCULAR SURGERY Visit Vitals BP 136/74 Pulse 91 Ht 5' 2 Wt 202 lb SpO2 97% BMI 36.95 kg/m OB Status Unknown Smoking Status Never BSA 2 m Review of Systems Constitutional: Negative for [...] breath sounds. No wheezing, rhonchi or rales. Musculoskeletal: Left lower le+ Edema present. Skin: General: Skin is warm and dry. Neurological: General: No focal deficit present. Mental Status: She is alert and oriented to person, place, and time. Motor: Weakness present. Gait: Gait abnormal (Quad cane). Psychiatric: Mood and Affect: Mood normal. Behavior: Behavior normal. Assessment/Plan Diagnoses and all orders for this visit: Spinal stenosis of lumbar region, unspecified whether neurogenic claudication present - Will need surgery after cleared by Cardiology and A1C <7. Type 2 diabetes mellitus with diabetic neuropathy, with long-term current use of insulin (CMS/HCC) - CGM sensors just rcvd, RTC 2 weeks with cgm data 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 affecting unspecified side (CMS/HCC) Morbid (severe) obesity due to excess calories (CMS/HCC) Essential (primary) hypertension (CMS/HCC) Body mass index (BMI) 38.0-38.9, adult Follow up in about 2 weeks (around 12/22/2024) for Review CGM data. documented in this encounter [facility] 12-02-2024 Telephone encounter Note Post 3 attempts received no reply. [facility] 12-02-2024 Miscellaneous Notes Post 3 attempts received no reply. Tried both her and then husbands phones. Only able to lm on [phone]. Requested call back rodolfo to schedule. Attempted to contact and the phone was busy. Called to verify insurance and offer PT Eval; but when she had answered and I said hina, she hung up. documented in this encounter [facility] 12-01-2024 Telephone encounter Note Tried both her and then husbands phones. Only able to lm on [phone]. Requested call back rodolfo to schedule. [facility] 11-28-2024 Telephone encounter Note Report received from [facility] re: statin and MARILU/ARB medication adherence for 2023. 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 Call placed to pt to discuss, VM received, msg left with call back info [facility] 11-28-2024 Telephone encounter Note Attempted to contact and the phone was busy. [facility] 11-28-2024 Telephone encounter Note Called to verify insurance and offer PT Eval; but when she had answered and I said heleddie, she hung up. [facility] 11-26-2024 Note Chief Complaint: rep eated falls 11/26/24 HPI When did this problem begin: August 2024 Radicular pain: intermittently, bilateral Numbness/tingling: No Weakness: No Gait disturbance: yes Previous treatment for this problem: No Ambulates with a walker but keeps falling because her knees give out and she feels unsteady when walking, has hit her head 2/2 numerous falls. Denies any neck pain, only occasional low back pain PMH: T2DM with neuropathy (7.7 as of 09/10/24) Patient has extensive cardiovascular history, including CAD, multiple MIs, stroke, and stenting per 's report ROS Constitutional: Fatigue: No Weight loss: No Fever: No Chills: No Past Surgical History: Procedure Laterality Date BREAST LUMPECTOMY CTA HEAD W IV CONTRAST 04/29/2018 CT HEAD ANGIO W AND WO IV CONTRAST [place] CONVERSION CTA NECK W IV CONTRAST 04/29/2018 CT NECK ANGIO W AND WO IV CONTRAST [place] CONVERSION Past Medical History: Diagnosis Date Cancer (CMS/HCC) Coronary artery disease Diabetes mellitus (CMS/HCC) Gastrointestinal hemorrhage Hyperlipidemia Hypertension Myocardial infarction (CMS/HCC) Sleep apnea Stroke (CMS/HCC) Past Surgical History: Procedure Laterality Date BREAST LUMPECTOMY CTA HEAD W IV CONTRAST 04/29/2018 CT HEAD ANGIO W AND WO IV CONTRAST [place] CONVERSION CTA NECK W IV CONTRAST 04/29/2018 CT NECK ANGIO W AND WO IV CONTRAST [place] CONVERSION Allergies Allergen Reactions Diphenhydramine Hives Other Reaction(s): Hives Current Outpatient Medications: amLODIPine (Norvasc) 10 mg [...] in the morning., Disp: , Rfl: lisinopril 40 mg tablet, [...] Take 1 tablet (25 mg) by mouth once daily as directed., Disp: 90 tablet, Rfl: 3 Social History Socioeconomic History Marital status: Spouse name: Not on file Number of children: Not on file Years of education: Not on file Highest education level: Not on file Occupational History Not on file Tobacco Use Smoking status: Never Smokeless tobacco: Never Substance and Sexual Activity Alcohol use: Not on file Drug use: Not on file Sexual activity: Not on file Other Topics Concern Not on file Social History Narrative Not on file Social Determinants of Health Financial Resource Strain: Low Risk (07/31/2023) Received from [facility] Overall Financial Resource Strain (CARDIA) Difficulty of Paying Living Expenses: Not very hard Food Insecurity: Food Insecurity Present (07/31/2023) Received from [facility] Hunger Vital Sign Worried About Running Out of Food in the Last Year: Sometimes true Ran Out of Food in the Last Year: Never true Transportation Needs: No Transportation Needs (07/31/2023) Received from [facility] PRAPARE - Transportation Lack of Transportation (Medical): No Lack of Transportation (Non-Medical): No Physical Activity: Insufficiently Active (07/31/2023) Received from [facility] Exercise Vital Sign Days of Exercise per Week: 4 days Minutes of Exercise per Session: 10 min Stress: No Stress Concern Present (07/31/2023) Received from [facility] [employer] [place] [employer] - Occupational Stress Questionnaire Feeling of Str (more content not included)... [facility] 09-29-2024 History of Presen t illness Narrative [...] (fourteen) days 2 each 11 Droplet Pen [place] 31G X 6 MM mis USE DIRECTED [...] by mouth in the morning. [DISCONTINUED] nystatin ([facility]) 447303 UNIT/GM powder apply to affected area twice [...] History: Diagnosis Date CHF (congestive heart failure) ([facility]) Chicken pox CVA (cerebral vascular accident) ([facility]) Diabetic retinopathy ([facility]) DM (diabetes mellitus) ([facility]) Family history of cancer Gastric ulcer 11/2018 Heart disease Hemiplegia ([facility]) History of being hospitalized 11/2018 Upper GI Bleed, Gastric Ulcers History of being hospitalized 01/15/2022 Fall, Closed Head Injury, Hypertensive Urgency History of echocardiogram 11/14/2018 EF 60% History of invasive ductal carcinoma of breast Lt Breast Invasive Ductal Carcinoma (11/07/2021) [place] Her2 neg HTN (hypertension) ([facility]) Hyperlipidemia ([facility]) Kidney disease Measles Mild mitral regurgitation 11/14/2018 MAYTE (obstructive sleep apnea) Personal history of other medical treatment Left breast IDC [place] + Her 2 neg Rib fracture Left [...] visit: Candidiasis of skin - nystatin (Nyamyc) 503385 UNIT/GM powder; Apply topically Daily Spinal stenosis of lumbar region, unspecified whether neurogenic claudication present - Ambulatory referral to Orthopaedic Surgery; Future - MRI was discussed. - This office visit was spent in consultation regarding the patient's current medical problems, differential diagnoses, testing/imaging results, and treatment options. Greater than 25 minutes was spent in [id number] consultation and coordination of care. Lumbar radiculopathy - Ambulatory referral to Orthopaedic Surgery; Future Follow up in about 2 months (around 11/28/2024) for Routine F/U. documented in this encounter [facility] 09-25-2024 History of Presen t illness Narrative [...] feel her feet. Precautions: Frequent falls; 9 WA's, 9 CVA's Subjective: Pt states her legs [...] to be instructed in home exercise program. Claim Manager Goals: To be met in 10 weeks [...] sign below. Date: documented in this encounter [facility] 09-23-2024 History of Presen t illness Narrative [...] feel her feet. Precautions: Frequent falls; 9 WA's, 9 CVA's Subjective: Pt states he right [...] to be instructed in home exercise program. Claim Manager Goals: To be met in 10 weeks [...] sign below. Date: documented in this encounter [facility] 09-15-2024 Telephone encounter Note Acknowledged. [facility] 09-15-2024 Miscellaneous Notes Acknowledged. Spoke with patient [...] referral to neurosurgery. documented in this encounter [facility] 09-15-2024 Telephone encounter Note Spoke with patient and she set up an appointment with DR Osman for further discission. [facility] 09-15-2024 Telephone encounter Note Please let pt [...] is agreeable, please place referral to neurosurgery. [facility] 09-11-2024 History of Presen t illness Narrative [...] feel her feet. Precautions: Frequent falls; 9 WA's, 9 CVA's Subjective: Pt states MRI was ordered and pt is to have tomorrow in [place]. States she was pretty tired following last [...] to be instructed in home exercise program. Correction Goals: To be met in 10 weeks [...] sign below. Date: documented in this encounter [facility] 09-10-2024 Note Patient here for fol low [...] All other systems reviewed and are negative. [facility] 09-10-2024 Note Cardiovascular Medic [facility] SUBJECTIVE Chief Complaint Patient presents with Fall Extremity Weakness Kyle Powell is a 68 y.o. female here for follow-up. HPI PMHx: CAD with prior PCI (BJ to LAD with instent restenosis ), HTN, DM type II on insulin, hx CVA, venous insufficiency, HLD, MAYTE, Hx CVA - 8, Hx GI bleed CHF - 2 exacerbations 09/10/2024 Patient here for follow up [facility] for fall. No EKG or [...] to type 2 diabetes mellitus (CMS/HCC) Hyperlipidemia penitentiary current use of insulin (CMS/HCC) Memory loss Lumbar radiculopathy Mild nonproliferative diabetic retinopathy of both eyes without macular edema associated with type 2 diabetes mellitus (CMS/HCC) Moderate recurrent major depression (CMS/HCC) Moderate major depression, single episode (CMS/HCC) Muscle weakness Obstructive sleep apnea Polyneuropathy due to type 2 diabetes mellitus ([facility]/HCC) 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 Tremor Diabetic neuropathy ([facility]/HCC) Type 2 diabetes mellitus with diabetic neuropathy, unspecified ([facility]/HCC) Abnormal mammogram Abnormal metabolic state due to [...] hyperglycemia, with long-term current use of insulin ([facility]/HCC) 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 No Known [...] (Lantus) 100 u (more content not included)... [facility] 09-10-2024 History of Presen t illness Narrative [...] (fourteen) days 2 each 11 Droplet Pen [place] 31G X 6 MM misc USE DIRECTED TWICE A DAY empagliflozin (Jardiance) [...] 1 tablet by sublingual route. nystatin (Nyamyc) 101079 UNIT/GM powder apply to affected area twice [...] Medicine) Faraz Osman MD as PCP - [employer] Annual Visit Over the past 2 [...] Do you have a medical power of commercial attorney?: No Objective : BP 128/70 Pulse 74 [...] a living will and durable power of commercial attorney for healthcare. We discussed telling grady people [...] need - Influenza, high-dose seasonal, quadrivalent, PF ([id number]) (Fluzone High Dose [place] 0.7mL dose) Type 2 diabetes mellitus with diabetic neuropathy, with long-term current use of insulin ([facility]) - POCT Glycated hemoglobin, total Estrogen deficiency [...] Answer: screening Influenza, high-dose seasonal, quadrivalent, PF ([id number]) (Fluzone High Dose [place] 0.7mL dose) POCT Glycated hemoglobin, total Follow up in about 4 weeks (around 10/08/2024). Electronically signed by Faraz Osman MD on September 10, 2024 documented in this encounter [facility] 09-03-2024 History of Presen t illness Narrative Images from the original note were not included. HPI Follow-up Additional comments: [facility] 08/26/24 dx: multiple falls,closed head injury discharged home no med changes Pt has follow up with cardiology today Med Refill Additional comments: Nystatin powder-- DM capo Last edited by Holly oJy LPN on 09/03/2024 8:40 AM. Subjective Patient ID: Kyle Powell is a 68 y.o. female who presents for Follow-up ([facility] 08/26/24 dx: multiple falls,closed head injury [...] (fourteen) days 2 each 11 Droplet Pen [place] 31G X 6 MM misc USE DIRECTED TWICE A DAY empagliflozin (Jardiance) [...] 1 tablet by sublingual route. nystatin (Nyamyc) 587052 UNIT/GM powder apply to affected area twice [...] History: Diagnosis Date CHF (congestive heart failure) ([facility]) Chicken pox CVA (cerebral vascular accident) (CMS/[facility]) Diabetic retinopathy (CMS/[facility]) DM (diabetes mellitus) (CMS/[facility]) Family history of cancer Gastric ulcer 11/2018 Heart disease Hemiplegia ([facility]) History of being hospitalized 11/2018 Upper GI Bleed, Gastric Ulcers History of being hospitalized 01/15/2022 Fall, Closed Head Injury, Hypertensive Urgency History of echocardiogram 11/14/2018 EF 60% History of invasive ductal carcinoma of breast Lt Breast Invasive Ductal Carcinoma (11/07/2021) [place] Her2 neg HTN (hypertension) (CMS/HCC) Hyperlipidemia (CMS/HCC) Kidney disease Measles Mild mitral regurgitation 11/14/2018 MAYTE (obstructive sleep apnea) Personal history of other medical treatment Left breast IDC [place] + Her 2 neg Rib fracture Left 8th Rib Fracture (2021) Tremor Past Surgical History: Procedure Laterality Date BREAST BIOPSY Left 11/07/2021 BREAST LUMPECTOMY 12/20/2021 Lt. lumpectomy w/sln bx 0/ SLN CARDIAC CATHETERIZATION 02/02/2017 HEART CATH WITH [...] Greater than 25 minutes was spent in [id number] consultation and coordination of care. 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 documented in this encounter [facility] 08-11-2024 History of Presen t illness Narrative [...] morning to get her to go from financial wellness coach to her bed. Fell today getting [...] Continuous Glucose Sensor (FreeStyle [place] 2 Sensor) mis 1 Device every 14 (fourteen) days 2 each 11 Droplet Pen [place] 31G X 6 MM misc USE DIRECTED TWICE A DAY empagliflozin (Jardiance) [...] every morning 30 tablet 2 Lancets 28G amg [facility] 1 Lancet in the morning. 100 each [...] 1 tablet by sublingual route. nystatin (Nyamyc) 404762 UNIT/GM powder apply to affected area twice [...] History: Diagnosis Date CHF (congestive heart failure) ([facility]) Chicken pox CVA (cerebral vascular accident) ([facility]) Diabetic retinopathy ([facility]) DM (diabetes mellitus) ([facility]) Family history of cancer Gastric ulcer 11/2018 Heart disease Hemiplegia ([facility]) History of being hospitalized 11/2018 Upper GI Bleed, Gastric Ulcers History of being hospitalized 01/15/2022 Fall, Closed Head Injury, Hypertensive Urgency History of echocardiogram 11/14/2018 EF 60% History of invasive ductal carcinoma of breast Lt Breast Invasive Ductal Carcinoma (11/07/2021) [place] Her2 neg HTN (hypertension) ([facility]) Hyperlipidemia ([facility]) Kidney disease Measles Mild mitral regurgitation 11/14/2018 MAYTE (obstructive sleep apnea) Personal history of other medical treatment Left breast IDC [place] + Her 2 neg Rib fracture Left [...] Appointment As Scheduled. documented in this encounter [facility] 07-09-2024 History of Presen t illness Narrative [...] (fourteen) days 2 each 11 Droplet Pen [place] 31G X 6 MM misc USE DIRECTED TWICE A DAY empagliflozin (Jardiance) [...] 1 tablet by sublingual route. nystatin (Nyamyc) [id number] UNIT/GM powder apply to affected area twice [...] History: Diagnosis Date CHF (congestive heart failure) ([facility]) Chicken pox CVA (cerebral vascular accident) ([facility]) Diabetic retinopathy ([facility]) DM (diabetes mellitus) ([facility]) Family history of cancer Gastric ulcer 11/2018 Heart disease Hemiplegia ([facility]) History of being hospitalized 11/2018 Upper GI Bleed, Gastric Ulcers History of being hospitalized 01/15/2022 Fall, Closed Head Injury, Hypertensive Urgency History of echocardiogram 11/14/2018 EF 60% History of invasive ductal carcinoma of breast Lt Breast Invasive Ductal Carcinoma (11/07/2021) [place] Her2 neg HTN (hypertension) ([facility]) Hyperlipidemia ([facility]) Kidney disease Measles Mild mitral regurgitation 11/14/2018 MAYTE (obstructive sleep apnea) Personal history of other medical treatment Left breast IDC [place] + Her 2 neg Rib fracture Left [...] and TM perforation Alternatives discussed: Alternative treatment [place] protocol: Procedure explained and questions answered to [...] follow-ups on file. documented in this encounter [facility] 07-09-2024 Instructions Darrel Edwards NP - 07/09/2024 3:00 PM EDT Debrox ordered documented in this encounter [facility] 06-11-2024 History of Presen t illness Narrative [...] mouth Daily 100 tablet 3 Droplet Pen [place] 31G X 6 MM misc USE DIRECTED TWICE A DAY empagliflozin (Jardiance) [...] 1 tablet by sublingual route. nystatin (Nyamyc) 125072 UNIT/GM powder apply to affected area twice [...] (CMS/HCC) Chicken pox CVA (cerebral vascular accident) ([facility]) Diabetic retinopathy ([facility]) DM (diabetes mellitus) ([facility]) Family history of cancer Gastric ulcer 11/2018 Heart disease Hemiplegia ([facility]) History of being hospitalized 11/2018 Upper GI Bleed, Gastric Ulcers History of being hospitalized 01/15/2022 Fall, Closed Head Injury, Hypertensive Urgency History of echocardiogram 11/14/2018 EF 60% History of invasive ductal carcinoma of breast Lt Breast Invasive Ductal Carcinoma (11/07/2021) [place] Her2 neg HTN (hypertension) ([facility]) Hyperlipidemia ([facility]) Kidney disease Measles Mild mitral regurgitation 11/14/2018 MAYTE (obstructive sleep apnea) Personal history of other medical treatment Left breast IDC ER/NJ + Her 2 neg Rib fracture Left [...] neuropathy, with long-term current use of insulin ([facility]/HCC) - POCT Glycated hemoglobin, total - Continuous Glucose Sensor (FreeStyle Yesenia 2 Sensor) misc; 1 Device every 14 (fourteen) days - Decrease PM dose of 70/30 to 55 units. AM dose unchanged. Morbid (severe) obesity due to excess calories (CMS/HCC) Essential (primary) hypertension ([facility]/HCC) Body mass index (BMI) 38.0-38.9, adult Immunodeficiency due to conditions classified elsewhere ([facility]/HCC) Malignant neoplasm of upper-outer quadrant of left female breast ([facility]/HCC) Atherosclerotic heart disease of [place] coronary artery with unspecified angina pectoris ([facility]) Follow up in about 2 months (around 08/11/2024) for Routine F/U, DM- A1C. documented in this encounter [facility] 11-13-2023 History of Presen t illness Narrative Occupational Therapy Occupational Therapy Treatment Visit Patient Name: Kyle Powell Today's Date: 11/15/2023 Linked Episodes Type: Episode: Status: Noted: Resolved: Last update: Updated by: Occupational Therapy B CTR Active 11/07/2023 11/09/2023 3:16 PM Roseann Stovall OT Comments:Episode created from referral [id number] Visit number: 11/12 Supervised time:60 Total time:60 [...] for AROM x5, and yellow t-putty exercises pinch/pull/chauffeur and red therabar exercises in supination/pronation 1x20 for wrist/ chauffeur strengthening. Red digiflex for chauffeur. Median nerve glides complete 1x5x10. Continue to [...] tasks at discharge. documented in this encounter [facility] 11-09-2023 History of Presen t illness Narrative Occupational Therapy Occupational Therapy Evaluation Visit Patient Name: Kyle Powell Today's Date: 11/09/2023 Linked Episodes Type: Episode: Status: Noted: Resolved: Last update: Updated by: Occupational Therapy B CTR Active 11/07/2023 11/09/2023 2:59 PM Roseann Stovall OT Comments:Episode created from referral [id number] Visit number: 10/12 Subjective Interim History: 68 [...] are normal. General General additional comments: R chauffeur strength: 20# LP: 5# L chauffeur strength: 20# LP: 6# Treatment: Education: HEP [...] median nerve distribution complete. HEP established for chauffeur strengthening/ forearm stretches. Written handout provided. Pt and spouse in agreement to POC. Assessment/Plan Short Term Goals: Pt will be independent with home exercise program for chauffeur strengthening at discharge. Correction Goals: PRWHE Pain Score 25< 50 ( IE: 47/50) PRWHE Functional Score 20 < 100 ( IE: 78/100) Pt to increase chauffeur strength by 10# and LP by 2# pain free at discharge. ( IE: B 20# LP: R 5# L6#) Pt will be able to use B UE in light daily activities. Pt will benefit from skilled OT to address the above impairments for 2x/week for 4-6 weeks. I hereby deem this POC medically necessary. Please sign below. Date: documented in this encounter [facility] 11-06-2023 History of Presen t illness Narrative [...] not apply, Every 14 days Droplet Pen [place] 31G X 6 MM amg [facility] USE DIRECTED TWICE A DAY gabapentin (NEURONTIN) [...] Place 1 tablet by sublingual route. Nyamyc [id number] UNIT/GM powder Nyamyc 100,000 unit/gram topical powder [...] will start her in occupational therapy at [facility] in [place]. Prescription for Gabapentin was provided to take at night. Follow-up in six weeks for re-evaluation. I reiterated to Kyle that her disease was severe and as such will likely necessitate a longer recovery period. She also may not experience complete resolution of her symptoms but the primary goal of surgery was to prevent continued worsening of her nerve compression. Jerson Kumari D.O. documented in this encounter [facility] 12-02-2022 Evaluation note Encounter Date Diagnosis Assessment [...] to nail, initial encounter (ICD-10 - S61.258A) [employer] Other 02-06-2023 NoteCARDIAC STRESS TEST Requesting Physician: Procedure Date:11/06/2022 This was a Lexiscan Stress Test with myocardial perfusion imaging performed at the [facility]. Informed consent was obtained, an intravenous [...] perfusion images will be reported separately. [id number] Progress note Author Ariel Monte [facility] March 22, 2022 10:19am Note Date/Time March 21, 2022 1:20 pm [facility] [place] [address] Rad Onc Follow Up Note - OP Signed Patient: Kyle Powell MR#: [id number] : 1955 Acct:[id number] Age/Sex: 66 / F Type: REG RCR Copies to: MD Faraz Hartman II, MD Fredric Itzkowitz, DO~ Assessment & Plan (1) Carcinoma of upper-outer quadrant of left breast in female, estrogen receptor positive Plan: RTC PRN Assessment Ms. Powell is a 66-year-old female with stage I pT1b N0 invasive ductal carcinoma of the upper outer quadrant of the left breast, ER/NJ positive HER2 negative. Tumor was grade 2, [...] of anti inflammatories with her PCP or Director Sales Support as these would like provide more relief. [...] history: October 13, 2021 screening mammogram at [facility] showed no abnormalities of the right breast but the left breast was concerning for a 1.2 spiculated nodule in the left upper outer quadrant. Spot compression mammogram and ultrasound confirmed an irregular hypoechoic mass in the 2 o'clock position measuring 8 mm in size. November 08, 2021 ultrasound-guided breast biopsy confirmed invasive ductal carcinoma, provisional grade 2 3, ER/NJ positive HER2 equivocal by IHC, negativeby FISH. [...] signed by Ariel Monte MD> 03/22/22 [address] [facility] Work Phone: 1(338) 698-624705-23-2022 Progress note [facility] February 20, 2022 4:08pm Note Date/Time February 20, 2022 2:15p [facility] [place] [address] Hem/Onc Follow Up Note - OP Signed Patient: Kyle Powell MR#: [id number] : 1955 Acct:[id number] Age/Sex: 66 / F Type: REG RCR [...] - we will request records from her home child care provider at [place] - Dr. Garrett Mcdonald. Clinically, she is [...] discussed results of her pathology showing T1b M3xlicg I breast cancer. Since she has less [...] for screening mammogram 10/13/2021 at [facility] showing no abnormalities of the right breast, but left breast showed a new 1.2 x 0.9cm spiculated nodule of left upper outer quadrant mid-breast. Subsequent spot compression mammogram and ultrasound showed an irregular hypoechoic mass in 2 o'clock position 10.7cm from nipple, [id number]. Ultrasound guided biopsy performed at [place] 11/08/21 confirmed diagnosis of invasive ductal carcinoma, provisional grade 2-3, ER >95% positive, NJ >95% positive, Her2 equivocal by IHC, negative [...] ductal carcinoma, provisional grade 2-3, ER >95%, NJ >95%, Her2 neg --12/20/2021: Left breast lumpectomy with left axillary sentinel lymph node: Invasive ductal carcinoma, [place] grade 2, tumor size 0.9 x 0.9 x 0.8 cm with margins negative. ER +95%, NJ +95%, HER-2/diomedes negative IHC 1+, pT1b (sn)pN0 Mx 2. Right mastodynia x 1 month (no lesion right mammogram) 3. Coronary artery disease (multiple prior [place]) 4. Cerebral vascular disease (multiple prior strokes, [...] Negative for environmental allergies and food allergies. [facility] - Medical History Medical History: Medical History [...] T1b, N0 Left breast invasive ductal carcinoma, [place] grade 2-3, ER >95% positive, NJ >95% positive, Her2 1+ IHC, negative. (1) [...] carcinoma, provisional grade 2-3, ER >95% positive, NJ >95% positive, Her2 equivocal by IHC, negative by FISH (HER/CEP17 1.4, copy number 3.33). This lesion is nonpalpable, less than 2 cm, and due to strong hormone positive, HER2 negative disease she is not a candidatefor neoadjuvant chemotherapy. She already has a surgical date in November [address] Hemphill--lumpectomy revealed T1b N0 MX [place] grade 2 breast cancer with size 0.9 cm. 01/12/2022: She returns for followup to discuss pathology of resection specimen and adjuvant therapy options. We decided against Oncotype DX due to size less than 1 cm, strongly ER/NJ positive, HER-2 negative disease, and her comorbidities. [...] PCP: Patient reports having seen cardiology at [facility] approximately 3 weeks ago with adjustments [...] for coordination of care (as documented) and htwd-iu-purl counseling of patient and/or family. Dictated By: Lisa Orozco APRN DD/ 1413 Signed By: <Electronically signed by IVELISSE Orozco> 02/20/22 [address] [facility] Work Phone: 1(267) 669-746104-20-2022 Consult note Author Ariel Monte [facility] January 18, 2022 4:10pm Note Date/Time January 18, 2022 1:5 9pm [facility] [place] [id number] Rad Onc Consult Note - OP Signed Patient: Kyle Powell MR#: [id number] : 1955 Acct:[id number] Age/Sex: 66 / F Type: REG RCR Copies to: Karoline Farmer,MD Faraz Osman II, MD Jac Hemphill, DO~ Assessment & Plan (1) Carcinoma of [...] upper outer quadrant of the left breast, ER/NJ positive HER2 negative. We reviewed her pathology [...] history: October 13, 2021 screening mammogram at [facility] showed no abnormalities of the right breast but the left breast was concerning for a 1.2 spiculated nodule in the left upper outer quadrant. Spot compression mammogram and ultrasound confirmed an irregular hypoechoic mass in the 2 o'clock position measuring 8 mm in size. November 08, 2021 ultrasound-guided breast biopsy confirmed invasive ductal carcinoma, provisional grade 2 3, ER/NJ positive HER2 equivocal by IHC, negativeby FISH. [...] No issues with mobility of the arm. [facility] - Medical History Medical History: Medical History [...] signed by Ariel Monte MD> 01/18/22 [address] [facility] Work Phone: [phone]) 890-116504-15-2022 Progress note Author Karoline Farmer [facility] January 13, 2022 1:05pm Note Date/Time January 12, 2022 1:0 9pm [facility] at [address] [address] Hem/Onc Follow Up Note - OP Signed Patient: Kyle Powell MR#: [id number] : 1955 Acct:[id number] Age/Sex: 66 / F Type: REG RCR [...] discussed results of her pathology showing T1b T4uflia I breast cancer. Since she has less [...] for screening mammogram 10/13/2021 at [facility] showing no abnormalities of the right breast, but left breast showed a new 1.2 x 0.9cm spiculated nodule of left upper outer quadrant mid-breast. Subsequent spot compression mammogram and ultrasound showed an irregular hypoechoic mass in 2 o'clock position 10.7cm from nipple, [id number]. Ultrasound guided biopsy performed at [place] 11/08/21 confirmed diagnosis of invasive ductal carcinoma, provisional grade 2-3, ER >95% positive, NJ >95% positive, Her2 equivocal by IHC, negative [...] ductal carcinoma, provisional grade 2-3, ER >95%, NJ >95%, Her2 neg --12/20/2021: Left breast lumpectomy with left axillary sentinel lymph node: Invasive ductal carcinoma, [place] grade 2, tumor size 0.9 x 0.9 x 0.8 cm with margins negative. ER +95%, NJ +95%, HER-2/diomedes negative IHC 1+, pT1b (sn)pN0 Mx 2. Right mastodynia x 1 month (no lesion right mammogram) 3. Coronary artery disease (multiple prior [place]) 4. Cerebral vascular disease (multiple prior strokes, no residual deficits) 5. Prior history of shingles (VZV) and prior Shingrix vaccine - Summary of Therapies Summary of Therapies: 1. 12/20/2021: Left breast lumpectomy with left axillary sentinel lymph node 2. Met with radiation oncology for adjuvant radiation therapy discussion 3. Prescription to start aromatase inhibitor therapy with anastrozole 1 mg daily and follow-up with [facility]. This may commence following radiation therapy. ROS [...] Impressions Screening mammogram 10/13/2021 at [facility] showing no abnormalities of the right breast, but left breast showed a new 1.2 x 0.9cm spiculated nodule of left upper outer quadrant mid-breast. Subsequent spot compression mammogram and ultrasound showed an irregular hypoechoic mass in 2 o'clock position 10.7cm from nipple, [id number]. Assessment and Plan - TNM Staging Staging: Prognostic stage Ia, pathologic stage I T1b, N0 Left breast invasive ductal carcinoma, [place] grade 2-3, ER >95% positive, NJ >95% positive, Her2 1+ IHC, negative. (1) [...] carcinoma, provisional grade 2-3, ER >95% positive, NJ >95% positive, Her2 equivocal by IHC, negative [...] to size less than 1 cm, strongly ER/NJ positive, HER-2 negative disease, and her comorbidities. [...] for coordination of care (as documented) and zfuk-[id number]-gitc counseling of patient and/or family. Dictated By: Karoline Farmer MD DD/ 07 Signed By: <Electronically signed by MD Karoline Farmer> 01/13/22 [address] [facility] Work Phone: [phone]) [phone] Progress note Author Karoline Farmer [facility] January 13, 2022 1:05pm Note Date/Time January 12, 2022 1:0 9pm [facility] [place] [address] Hem/Onc Follow Up Note - OP Signed Patient: Kyle Powell MR#: [id number] : 1955 Acct:[id number] Age/Sex: 66 / F Type: REG RCR [...] discussed results of her pathology showing T1b T9xgkta I breast cancer. Since she has less [...] for screening mammogram 10/13/2021 at [facility] showing no abnormalities of the right breast, but left breast showed a new 1.2 x 0.9cm spiculated nodule of left upper outer quadrant mid-breast. Subsequent spot compression mammogram and ultrasound showed an irregular hypoechoic mass in 2 o'clock position 10.7cm from nipple, [id number]. Ultrasound guided biopsy performed at [place] 11/08/21 confirmed diagnosis of invasive ductal carcinoma, provisional grade 2-3, ER >95% positive, NJ >95% positive, Her2 equivocal by IHC, negative [...] ductal carcinoma, provisional grade 2-3, ER >95%, NJ >95%, Her2 neg --12/20/2021: Left breast lumpectomy with left axillary sentinel lymph node: Invasive ductal carcinoma, [place] grade 2, tumor size 0.9 x 0.9 x 0.8 cm with margins negative. ER +95%, NJ +95%, HER-2/diomedes negative IHC 1+, pT1b (sn)pN0 Mx 2. Right mastodynia x 1 month (no lesion right mammogram) 3. Coronary artery disease (multiple prior [place]) 4. Cerebral vascular disease (multiple prior strokes, no residual deficits) 5. Prior history of shingles (VZV) and prior Shingrix vaccine - Summary of Therapies Summary of Therapies: 1. 12/20/2021: Left breast lumpectomy with left axillary sentinel lymph node 2. Met with radiation oncology for adjuvant radiation therapy discussion 3. Prescription to start aromatase inhibitor therapy with anastrozole 1 mg daily and follow-up with [facility]. This may commence following radiation therapy. ROS [...] Negative for environmental allergies and food allergies. [facility] - History Attestation statement: The following information was validated with the patient. Source: Old Records Reviewed - Medical History Medical History: Medical History (Last Reviewed 01/13/22 @ 12:56 by Karoline Faremr MD) Breast cancer, left CHF (congestive heart [...] Impressions Screening mammogram 10/13/2021 at [facility] showing no abnormalities of the right breast, but left breast showed a new 1.2 x 0.9cm spiculated nodule of left upper outer quadrant mid-breast. Subsequent spot compression mammogram and ultrasound showed an irregular hypoechoic mass in 2 o'clock position 10.7cm from nipple, [id number]. Assessment and Plan - TNM Staging Staging: Prognostic stage Ia, pathologic stage I T1b, N0 Left breast invasive ductal carcinoma, [place] grade 2-3, ER >95% positive, NJ >95% positive, Her2 1+ IHC, negative. (1) [...] carcinoma, provisional grade 2-3, ER >95% positive, NJ >95% positive, Her2 equivocal by IHC, negative by FISH (HER/CEP17 1.4, copy number 3.33). This lesion is nonpalpable, less than 2 cm, and due to strong hormone positive, HER2 negative disease she is not a candidatefor neoadjuvant chemotherapy. She already has a surgical date in November [address] Hemphill--lumpectomy revealed T1b N0 MX [place] grade 2 breast cancer with size 0.9 cm. 01/12/2022: She returns for followup to discuss pathology of resection specimen and adjuvant therapy options. We decided against Oncotype DX due to size less than 1 cm, strongly ER/NJ positive, HER-2 negative disease, and her comorbidities. [...] for coordination of care (as documented) and taxb-tg-hplv counseling of patient and/or family. Dictated By: Karoline Farmer MD DD/ 1308 Signed By: <Electronically signed by MD Karoline Farmer> 01/13/22 [address] [facility] Work Phone: 1([phone]) 250-601502-25-2022 Consult note Author Karoline Farmer [facility] November 25, 2021 8:58pm Note Date/Time November 25, 2021 11:32am [facility] [place] [address] Hem/Onc Consult Note - OP Signed Patient: Kyle Powell MR#: [id number] : 1955 Acct:[id number] Age/Sex: 66 / F Type: REG RCR Copies to: MD Jac Springer II, DO~ HPI Date/Time of Service: Date of Service: 11/25/2021 Time of Service: 11:31 Referring Provider/PCP: Referring Provider: Faraz Osman II, MD PCP: Faraz Osman II, MD - History of Present Illness Reason for Consultation: Patient was found to have abnormal screening mammography with biopsy at [facility] for invasive ductal carcinoma. Referred to both general surgery who she saw yesterday and me to discuss appropriate management. Tumor appears to be8 x 7 x 7 mm on ultrasound at the 2 o'clock position. ER positive, NJ positive,HER-2 negative by FISH, provisional grade 2-3. [...] for screening mammogram 10/13/2021 at [facility] showing no abnormalities of the right breast, butleft breast showed a new 1.2 x 0.9cm spiculated nodule of left upper outer quadrant mid-breast. Subsequent spot compression mammogram and ultrasound showed an irregular hypoechoic mass in 2 o'clock position 10.7cm from nipple, [id number]. Ultrasound guided biopsy performed at [place] 11/08/21 confirmed diagnosis of invasive ductal carcinoma, provisional grade 2-3, ER >95% positive,NJ >95% positive, Her2 equivocal by IHC, negative [...] operative to review recommendations for adjuvant therapy. [facility] - History Attestation statement: The following information [...] ductal carcinoma, provisional grade 2-3, ER >95%, NJ >95%, Her2 neg 2. Right mastodynia x 1 month (no lesion right mammogram) 3. Coronary artery disease (multiple prior [place]) 4. Cerebral vascular disease (multiple prior strokes, [...] Impressions Screening mammogram 10/13/2021 at [facility] showing no abnormalities of the right breast, but left breast showed a new 1.2 x 0.9cm spiculated nodule of left upper outer quadrant mid-breast. Subsequent spot compression mammogram and ultrasound showed an irregular hypoechoic mass in 2 o'clock position 10.7cm from nipple, [id number]. Assessment and Plan - TNM Staging Staging: Clinical stage I T1c, N0 Left breast invasive ductal carcinoma, provisional grade 2-3, ER >95% positive, NJ >95% positive, Her2 equivocal by IHC, negative [...] carcinoma, provisional grade 2-3, ER >95% positive, NJ >95% positive, Her2 equivocal by IHC, negative [...] for coordination of care (as documented) and epui-oi-swxb counseling of patient and/or family. Dictated By: Karoline Farmer MD DD/ 1131 Signed By: <Electronically signed by MD Karoline Farmer> 11/25/212057 [facility] Work Phone: Evaluation + Plan note No data available for this section [facility] Diagnosis Onset Date Resolution Status [id number] acute Mastodynia of right breast a cute Coronary artery disease chrome plater helper génesis History of stroke chronic Hypertension chronic [facility] Work Phone: Evaluation note* Diagnosis Onset Date Resolution Status [id number] acute Encounter for monitoring aromatase inhibitor therapy acute Coronary artery disease chrome plater helper génesis History of stroke chronic Hypertension chronic Mastodynia of right breast r esolved [facility] Work Phone: Evaluation noteNo assessment information available [facility] Work Phone: Evaluation note* Diagnosis Bilateral carpal tunnel syndrome- Primary Carpal tunnel syndrome documented in this encounter [facility]* Diagnosis Carpal tunnel syndrome, bilateral- Primary Carpal tunnel syndrome Bilateral carpal tunnel syndrome Carpal tunnel syndrome Hand weakness Muscle weakness (generalized) documented in [facility] encounter [facility]* Diagnosis Carpal tunnel syndrome, bilateral- Primary Carpal tunnel syndrome Hand weakness Muscle weakness (generalized) documented in this encounter [facility]* Diagnosis Neurogenic pain Cerebral artery [...] artery occlusion with cerebral infarction Stroke, lacunar ([facility]) Unspecified cerebral artery occlusion with cerebral infarction [...] pain Cerebral artery occlusion with cerebral infarction ([facility]/HCC) Unspecified cerebral artery occlusion with cerebral infarction Stroke, lacunar ([facility]) Unspecified cerebral artery occlusion with cerebral infarction [...] neuropathy, with long-term current use of insulin ([facility]) Morbid (severe) obesity due to excess calories ([facility]) Essential (primary) hypertension ([facility]) Unspecified essential hypertension Body mass index (BMI) 38.0-38.9, adult Immunodeficiency due to conditions classified elsewhere ([facility]) Malignant neoplasm of upper-outer quadrant of left female breast (CMS/HCC) Atherosclerotic heart disease of [place] coronary artery with unspecified angina pectoris ([facility]/HCC) [facility] [...] neuropathy, with long-term current use of insulin ([facility]) Estrogen deficiency Other ovarian failure Breast screening Breast screening, unspecified documented [facility] Diagnosis Neurogenic pain Cerebral artery occlusion with cerebral infarction ([facility]/HCC) Unspecified cerebral artery occlusion with cerebral infarction Stroke, lacunar ([facility]/HCC) Unspecified cerebral artery occlusion with cerebral infarction [...] or radiculitis, unspecified documented in this encounter [facility]* Diagnosis Neurogenic pain Cerebral artery [...] sleep apnea (adult) (pediatric) Vitamin B6 deficiency Spinal stenosis of lumbar region, unspecified whether neurogenic claudication present- Primary Type 2 diabetes mellitus with diabetic neuropathy, with long-term current use of insulin (CMS/HCC) 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 affecting unspecified side (CMS/HCC) Morbid (severe) obesity due to excess calories (CMS/HCC) Essential (primary) hypertension (CMS/HCC) Unspecified essential hypertension Body mass index (BMI) 38.0-38.9, adult documented in this encounter [facility] HealthcareEvaluation note* Diagnosis Neurogenic pain Cerebral artery [...] sleep apnea (adult) (pediatric) Vitamin B6 deficiency Type 2 diabetes mellitus with diabetic neuropathy, with long-term current use of insulin (CMS/HCC)- Primary Spinal stenosis of lumbar region, unspecified whether neurogenic claudication present documented in this encounter [facility] HealthcareHistory general Narrative - Reported* Type Description Date Medical History HTN Medical History hyperlipidemia Medical History DM II Medical History Congestive Heart Failure Medical History stroke Medical History heart attack Medical History CAD with stents Surgical History cardiac stents Surgical History lumpectomy left breast Surgical History coccyx removal Surgical History tonsillectomy Surgical History [facility] Discharge instructions No data available for this section [facility] No data available for this section [facility] (narrative)* Consultation (Routine) - Authorized Specialty Diagnoses / Procedures Referred By Contac t Referred To Contact Occupational Therapy / Physical Therapy Diagnoses Bilateral carpal tunnel syndrome Procedures [place] OFFICE/OUTPATIENT NEW HIGH MDM 60 MINUTES Jerson Kumari DO [address] [place] [address] Elisha Stovallney, OT [address] [place] [address] Referral ID Status Reason Start Date Expiration Date Visits Requested Visits Authorized [id number] Authorized Consult and Treat 11/06/2023 05/04/2024 1 1 [facility] HealthcareRezee for visit Narrative* Consultation (Routine) - Authorized Specialty Diagnoses / Procedures Referred By Contac t Referred To Contact Occupational Therapy / Physical Therapy Diagnoses Bilateral carpal tunnel syndrome Procedures [place] OFFICE/OUTPATIENT NEW HIGH MDM 60 MINUTES Jerson Kumari DO [address] [place] [address] Elisha Stovallney, OT [address] [place] [address] Referral ID Status Reason Start Date Expiration Date Visits Requested Visits Authorized [id number] Authorized Consult and Treat 11/06/2023 05/04/2024 99 99 [facility] for [facility] Narrative* Rehabilitation - Outpatient (Routine) - Authorized Specialty Diagnoses / Procedures Referred By Contac t Referred To Contact Physical Therapy Diagnoses Balance disorder Frequent falls Procedures [place] OFFICE/OUTPATIENT NEW HIGH MDM 60 MINUTES Christy Baez, PA [address] [facility] [address] [place] [address] Phone: tel: fax: Mary Ramsay PT Referral ID Status Reason Start Date Expiration Date Visits Requested Visits Authorized [id number] Authorized Specialty Services Required 4 02/07/2025 99 99 [facility] HealthcareReason for visit Narrative* Rehabilitation - Outpatient (Routine) - Authorized Specialty Diagnoses / Procedures Referred By Contac t Referred To Contact Physical Therapy Diagnoses Balance disorder Frequent falls Procedures [place] OFFICE/OUTPATIENT NEW HIGH MDM 60 MINUTES Christy Baez PA [address] [facility] [address] [place] [address] Phone: tel: fax: Mary Ramsay PT Referral ID Status Reason Start Date Expiration Date Visits Requested Visits Authorized [id number] Authorized Specialty Services Required 4 09/30/2024 99 99 [facility] Summary Purpose Family History No Family [...] Hospital Course Note MR#: [id number] [facility] Pt. Name: Kyle Powell Admitted: [...] This is a 62-year-old female, admitted to [facility], who was transferred from [place] with hypertension emergency/urgency. She was complaining of dizziness and tongue numbness on presentation. CT scan of brain revealed hypoattenuation, bilateral basal ganglia and right thalamus. Stroke team was consulted. No tPA was given. MR (more content not included)... Note MR#: [id number] [facility] Pt. Name: Kyle Powell Admitted: 09/05/2018 Discharged: 09/07/2018 Date of : 1955 Physician: Jonah Sanabria MD DISCHARGE SUMMARY PRINCIPAL DIAGNOSES: 1. Coronary artery disease of [place]cock artery of shinnecock heart with stable angina. 2. Essential hypertension. [...] procedure and decided to transfer here to [facility] for cardiac cath. She had a cardiac cath here. In 01/2017, she had severe ostial stenosis of the posterior descending branch of the right coronary artery and had a balloon angioplasty with a Synergy drug-eluting stent. She has been doing well since (more content not included)... Note MR#: [id number] [facility] Pt. Name: Kyle Powell Admitted: 11/13/2018 [...] (more content not included)... Note MR#: [id number] [facility] Pt. Name: Kyle Powell Surgery Date: 11/15/2018 Room #: 3AB [id number] Date of : 1955 PROCEDURE NOTE ATTENDING: Dov Oscar M.D. PROCEDURE EGD with gastric biopsies. MANUFACTURING TEAM MEMBER: Inocencio Rivera M.D. INDICATION FOR PROCEDURE: A [...] connected to appropriat (more content not included)... Procedure Findings Note MR#: [id number] [facility] Pt. Name: Kyle Powell Surgery Date: 11/15/2018 Room #: 3AB [id number] Date of : 1955 PROCEDURE NOTE ATTENDING: Dov Oscar M.D. PROCEDURE EGD with gastric biopsies. MANUFACTURING TEAM MEMBER: Inocencio Rivera M.D. INDICATION FOR PROCEDURE: A [...] Cancer Left Breast Cancer Reason for Visit [id number] Mastodynia of right breast Coronary artery disease History of stroke Hypertension Chief Complaint Left Breast Cancer Left Breast Cancer Left Breast Cancer DCIS Left Breast Reason for Visit [id number] Mastodynia of right breast Coronary artery disease History of stroke Hypertension Chief Complaint Left Breast Cancer Left Breast Cancer Left Breast Cancer DCIS Left Breast Reason for Visit [id number] Encounter for monitoring aromatase inhibitor therapy Coronary artery disease History of stroke Hypertension Mastodynia of right breast Chief Complaint DCIS Left Breast Reason for Visit [id number] Encounter for monitoring aromatase inhibitor therapy Coronary artery disease History of stroke Hypertension Mastodynia of right breast Additional Source Comments INFORMATION SOURCE (unrecogn ized section and content) DATE CREATED AUTHOR 03/25/2018 [facility] DATE CREATED AUTHOR AUTHOR'S ORGANIZ ATION 12/11/2018 [facility] DATE CREATED AUTHOR AUTHOR'S ORGANIZ ATION 02/14/2023 [facility] DATE CREATED AUTHOR AUTHOR'S ORGANIZ ATION 04/14/2023 [facility] DATE CREATED AUTHOR AUTHOR'S ORGANIZ ATION 02/19/2024 [facility] DATE CREATED AUTHOR AUTHOR'S ORGANIZ ATION 03/11/2024 Méndez Turner [facility] DATE CREATED AUTHOR AUTHOR'S ORGANIZ ATION 12/23/2024 [facility] DATE CREATED AUTHOR AUTHOR'S ORGANIZ ATION 01/03/2025 [facility] Care Teams (unrecognized sec tion and content) [...] Osman II MD Primary Care Provider Active Windows Technical Specialist Relationship Specialty Start Date End Date Faraz Osman MD [address] [place] [address] PCP - General Internal Medicine 02/20/23 [employer] Technical Specialist Relationship Specialty Start Date End Date Faraz Osman MD [address] [place] [address] PCP - General Internal Medicine 02/20/23 [employer] Technical Specialist Relationship Specialty Start Date End Date Faraz Osman MD [address] [place] [address] PCP - General Internal Medicine 02/20/23 [employer] Technical Specialist Relationship Specialty Start Date End Date Faraz Osman MD [address] [place] [address] PCP - General Internal Medicine 02/20/23 [employer] Technical Specialist Relationship Specialty Start Date End Date Faraz Osman MD [address] [place] [address] PCP - General Internal Medicine 02/20/23 [employer] Specialist Relationship Specialty Start Date End Date Faraz Osman MD [address] [place] [address] PCP - General Internal Medicine 02/20/23 Faraz Osman MD [address] [place] [address] PCP - [employer] 01/30/24 [employer] Specialist Relationship Specialty Start Date End Date Faraz Osman MD [address] [place] [address] PCP - General Internal Medicine 02/20/23 Faraz Osman MD [address] [place] [address] PCP - [employer] 01/30/24 [employer] Specialist Relationship Specialty Start Date End Date Faraz Osman MD [address] [place] [address] PCP - General Internal Medicine 02/20/23 Faraz Osman MD [address] [place] [address] PCP - [employer] 01/30/24 [employer] Specialist Relationship Specialty Start Date End Date Faraz Osman MD [address] [place] [address] PCP - General Internal Medicine 02/20/23 Faraz Osman MD [address] [place] [address] PCP - [employer] 01/30/24 [employer] Specialist Relationship Specialty Start Date End Date Faraz Osman MD [address] [place] [address] PCP - General Internal Medicine 02/20/23 Faraz Osman MD [address] [place] [address] PCP - [employer] 01/30/24 [employer] Specialist Relationship Specialty Start Date End Date Faraz Osman MD [address] [place] [address] PCP - General Internal Medicine 02/20/23 Faraz Osman MD [address] [place] [address] PCP - [employer] 01/30/24 [employer] Specialist Relationship Specialty Start Date End Date Faraz Osman MD [address] [place] [address] PCP - General Internal Medicine 02/20/23 Faraz Osman MD [address] [place] [address] PCP - [employer] 01/30/24 [employer] Specialist Relationship Specialty Start Date End Date Faraz Osman MD [address] [place] [address] PCP - General Internal Medicine 02/20/23 Faraz Osman MD [address] [place] [address] PCP - [employer] 01/30/24 [employer] Technical Specialist Relationship Specialty Start Date End Date Faraz Osman MD [address] [place] [address] PCP - General Internal Medicine 02/20/23 Faraz Osman MD [address] [place] [address] PCP - [employer] 01/30/24 [employer] Technical Specialist Relationship Specialty Start Date End Date Faraz Osman MD [address] [place] [address] PCP - General Internal Medicine 02/20/23 Faraz Osman MD [address] [place] [address] PCP - [employer] 01/30/24 [employer] Technical Specialist Relationship Specialty Start Date End Date Faraz Osman MD [address] [place] [address] PCP - General Internal Medicine 02/20/23 Faraz sOman MD [address] [place] [address] PCP - [employer] 01/30/24 [employer] Specialist Relationship Specialty Start Date End Date Faraz Osman MD [address] [place] [address] PCP - General Internal Medicine 02/20/23 Faraz Osman MD [address] [place] [address] PCP - [employer] 01/30/24 [employer] Specialist Relationship Specialty Start Date End Date Faraz Osman MD [address] [place] [address] PCP - General Internal Medicine 02/20/23 Faraz Osman MD [address] [place] [address] PCP - [employer] 01/30/24 [employer] Specialist Relationship Specialty Start Date End Date Faraz Osman MD [address] [place] [address] PCP - General Internal Medicine 02/20/23 Faraz Osman MD [address] [place] [address] PCP - [employer] 01/30/24 [employer] Specialist Relationship Specialty Start Date End Date Faraz Osman MD [address] [place] [address] PCP - General Internal Medicine 02/20/23 Faraz Osman MD [address] [place] [address] PCP - [employer] 01/30/24 [employer] Technical Specialist Relationship Specialty Start Date End Date Faraz Osman MD [address] [place] [address] PCP - General Internal Medicine 02/20/23 Faraz Osman MD [address] [place] [address] PCP - [employer] 01/30/24 [employer] Technical Specialist Relationship Specialty Start Date End Date Faraz Osman MD [address] [place] [address] PCP - General Internal Medicine 02/20/23 Faraz Osman MD [address] [place] [address] PCP - [employer] 01/30/24 [employer] Technical Specialist Relationship Specialty Start Date End Date Faraz Osman MD [address] [place] [address] PCP - General Internal Medicine 02/20/23 Faraz Osman MD [address] [place] [address] PCP - [employer] 01/30/24 [employer] Specialist Relationship Specialty Start Date End Date Faraz Osman MD [address] [place] [address] PCP - General Internal Medicine 02/20/23 Faraz Osman MD [address] [place] [address] PCP - [employer] 01/30/24 [employer] Specialist Relationship Specialty Start Date End Date Faraz Osman MD [address] [facility] [address] [place] [address] PCP - General Internal Medicine 02/20/23 [employer] Technical Specialist Relationship Specialty Start Date End Date Faraz Osman MD [address] [facility] [address] [place] [address] PCP - General Internal Medicine 02/20/23 [employer] Technical Specialist Relationship Specialty Start Date End Date Faraz Osman MD [address] [facility] [address] [place] [address] PCP - General Internal Medicine 02/20/23 Windows Technical Specialist Relationship Specialty Start Date End Date Faraz Osman MD [address] [facility] [address] [place] [address] PCP - General Internal Medicine 02/20/23 Goals (unrecognized section and content) Goals may be documented in a n alternate section No data available for this sectionNo InformationNo InformationGoals may be documented in an alternate section No data available for this section REASON FOR VISIT (unrecogniz ed section and content) Reason Comments Post-op Reason Comments Cerumen Impaction Reason Comments Follow-up [facility] ER 08/26/24 dx: multiple falls,closed head injury discharged home no med changesPt has follow up with cardiology today Med Refill Nystatin powder-- DM [place] Reason Comments Diabetes Med Refill Freestyle yesenia 2 se nsors--DM [place] Reason Comments Medicare Annual Wellness Visit Subsequen t Results Lab results Reason Comments Results Mri results Med Refill Nystatin powder-- DM [place] Reason Onset Date Comments PT Initial Eval 11/28/2024 Reverification n eeded to update insurance; then resubmit referral for auth. FU x1 12/01/2024 Reason Comments Diabetes needs referral to PT Neuro surg is reque sting referral to be sent to PT to complete prior to lumbar fusion Reason Comments Diabetes Pt is sched for a st ress test 12/24/24 FOR RECORDS PERTAINING TO PATIENTS WHO ARE [...] BE BASED ON THE PRIMARY CLINICAL RECORDS. [facility]. provides no warranty or guarantee of the accuracy or completeness of information in this document.
--- NOTE | 2025-01-07 20:33 | ECG_ITS ---
[facility] Test Date: 2025-01-07 Pat Name: ORTEGA POWELL Department: Room: - Gender: Female Staff Nurse Anesthetist: : 1955 Requested By: [id number] Order Number: [id number] Reading MD: GLADYS YUNG M.D. Measurements Intervals [place] Rate: 76 P: 55 [place]: 168 QRS: 24 QRSD: 104 T: 0 QT: 370 QTc: 401 Interpretive Statements 1100 Sinus rhythm 5234 Left ventricular hypertrophy with repolarization abnormality 9150 abnormal ECG Compared to ECG 10/17/2024 21:27:47 No significant changes Electronically Signed On 01-08-2025 8:11:14 EDT by GLADYS YUNG M.D.
--- NOTE | 2025-01-07 20:49 | ED.FALL1 ---
HPI HPI - Fall General Chief Complaint: Fall Time Seen by Provider: 01/07/25 20:26 Source: patient and other Source comment: ems Mode of arrival: ambulance History of Present Illness HPI Narrative: This 69-year-old female with multiple medical problems including hypertension, peripheral neuropathy, degenerative disc disease-awaiting to get her hemoglobin A1c and check for evaluation for back surgery, carotid artery nose and TIA is brought to the emergency department by EMS. History is obtained from the patient. She states she was sitting in her chair and got up to go get her phone to check her glucose. At that time her left knee buckled and gave out on her. She fell backwards onto a stepstool. She states that she blacked out at some point and does not remember the fall. When she woke up she was on the stepstool. Her and son were able to get her up into a chair and EMS was called. She complains of some chest pain earlier in the day. She is now having left knee pain. She states that yesterday her left foot was purple in color. That appears to have resolved. She denies any headache or neck pain. She is not currently having any chest pain or shortness of breath. She does not feel dizzy. She has no focal neurologic deficits. The patient states that she has not taken any of her medications today. Her family explains that she has mobility issues. The patient states that her back hurts too much for her to get up and get to her medications. Her family states that she does not wish to ask for help. She states that she has had 9 heart attacks, multiple strokes and has 2 coronary stents. She is supposed to have back surgery at [facility] because she has severe degenerative disc disease in her low back which is impeding her mobility and her quality of life. She states that the reason she has recently had so many falls is because of her back problems. Related Data Home Medications ?Medication ?Instructions ?Recorded ?Confirmed amlodipine 10 mg tablet 10 mg PO QDAY 06/16/23 01/08/25 anastrozole 1 mg tablet 1 mg PO QDAY 06/16/23 01/08/25 aspirin 81 mg capsule 81 mg PO DAILY 06/16/23 01/08/25 atorvastatin 80 mg tablet 80 mg PO QDAY 06/16/23 01/08/25 bupropion HCl 150 mg 24 hr tablet, 150 mg PO QDAY 06/16/23 01/08/25 extended release carvedilol 12.5 mg tablet 12.5 mg PO BID 06/16/23 01/08/25 clopidogrel 75 mg tablet 75 mg PO QDAY 06/16/23 01/08/25 isosorbide mononitrate 30 mg 30 mg PO QDAY 06/16/23 01/08/25 tablet,extended release 24 hr lisinopril 40 mg tablet 40 mg PO DAILY 06/16/23 01/08/25 metformin 500 mg tablet,extended 500 mg PO BID 06/16/23 01/08/25 release 24 hr oxcarbazepine 300 mg tablet 300 mg PO BID 06/16/23 01/08/25 pantoprazole 40 mg tablet,delayed 40 mg PO Q12H 06/16/23 01/08/25 release spironolactone 25 mg tablet 25 mg PO QDAY 06/16/23 01/08/25 gabapentin 300 mg capsule 300 mg PO BEDTIME 02/11/24 01/08/25 insulin lispro protamine-lispro 45 unit subcut .am 02/12/24 01/08/25 100 unit/mL (75-25) subcutaneous pen empagliflozin 10 mg tablet 10 mg PO DAILY 01/08/25 01/08/25 (Jardiance) nitroglycerin 0.4 mg sublingual 0.4 mg sublingual Q5M PRN chest 01/08/25 01/08/25 tablet pain nystatin 100,000 unit/gram topical 1 applic topical DAILY PRN rash 01/08/25 01/08/25 powder Allergies Allergy/AdvReac Type Severity Reaction Status Date / Time Antihistamines - Alkylamine AdvReac Unknown Unknown Verified 01/07/25 20:32 Opioid HPI Opioid Management Most Recent Pain and Opioid Data: Last Pain Scale 7 01/08/25 00:32 01/08/25 Last ED Pain Assessment 01/07/25 23:51 Last MAR Pain Assessment 01/08/25 00:32 Last ORT Total Score 0 02/11/24 19:52 02/11/24 Last ORT Risk Category Low Risk 02/11/24 19:52 02/11/24 Review of Systems ROS Status of ROS 10 or more systems reviewed and unremarkable except as noted in history and below [facility] Medical History (Updated 01/08/25 @ 02:11 by Shruthi Lopez MD) Falls ?R29.6 - Repeated falls (ICD-10) GERD (gastroesophageal reflux disease) ?K21.9 - Gastro-esophageal reflux disease without esophagitis (ICD-10) Hypertension ?I10 - Essential (primary) hypertension (ICD-10) Cerebrovascular disease ?I67.9 - Cerebrovascular disease, unspecified (ICD-10) Type 2 diabetes mellitus with diabetic polyneuropathy ?E11.42 - Type 2 diabetes mellitus with diabetic polyneuropathy (ICD-10) CAD (coronary artery disease) ?I25.10 - Atherosclerotic heart disease of [place] coronary artery without angina pectoris (ICD-10) Chronic heart failure with preserved ejection fraction (HFpEF) ?I50.32 - Chronic diastolic (congestive) heart failure (ICD-10) Diabetes mellitus with hyperglycemia, with long-term current use of insulin ?E11.65 - Type 2 diabetes mellitus with hyperglycemia (ICD-10) ?Z79.4 - intermission coordinator (current) use of insulin (ICD-10) Ductal carcinoma in situ (DCIS) of left breast ?D05.12 - Intraductal carcinoma in situ of left breast (ICD-10) Ataxia ?R27.0 - Ataxia, unspecified (ICD-10) Chronic shortness of breath ?R06.02 - Shortness of breath (ICD-10) Chest pain ?R07.9 - Chest pain, unspecified (ICD-10) Breast cancer ?C50.919 - Malignant neoplasm of unspecified site of unspecified female breast (ICD-10) Diabetes mellitus ?E11.9 - Type 2 diabetes mellitus without complications (ICD-10) Brain aneurysm ?I67.1 - Cerebral aneurysm, nonruptured (ICD-10) Congestive heart failure ?I50.9 - Heart failure, unspecified (ICD-10) Myocardial infarction ?I21.9 - Acute myocardial infarction, unspecified (ICD-10) Stroke ?I63.9 - Cerebral infarction, unspecified (ICD-10) Surgical History (Updated 02/11/24 @ 19:36 by Emilie Murguia) H/O heart artery stent ?Z95.5 - Presence of coronary angioplasty implant and graft (ICD-10) Family History (Updated 02/11/24 @ 19:43 by Emilie Murguia) Other Family history of CHF (congestive heart failure) Family history of hypertension Family history of myocardial infarction Family history of stroke Social History (Updated 02/11/24 @ 19:45 by Emilie Murguia) Within the past year, how often did you have six or more drinks on one occasion: never Smoking status: Never smoker Non-prescribed substance use: denies use Previous occupational history: Retired Highest level of school completed/degree received: 12th grade, no diploma Are you now , , , , never or living with a partner: In a typical week, how many times do you talk on the telephone with family, friends, or neighbors: 3 or more times per week How often do you get together with friends or relatives: 3 or more times per week Little interest or pleasure in doing things: not at all Feeling down, depressed, or hopeless: not at all Feel stressed/tense/nervous/anxious/difficulty sleeping: not at all Exam Narrative Exam Narrative: Vital signs and Nursing Notes reviewed: Patient is afebrile with a normal pulse, normal respiratory rate, her blood pressure is elevated 234/92, she is not hypoxic with pulse ox of 96% on room air General: Awake, alert, oriented, no acute distress, lying comfortably on the stretcher-GCS 15 HEENT: Normocephalic atraumatic, mucous membranes are moist and pink, eyes are clear, normal conjunctiva, vision is grossly intact, posterior pharynx is normal in appearance. Neck: Supple, no midline bony vertebral tenderness or step-off Chest: Lungs are clear to auscultation with good air entry, there is no wheezing rhonchi or rales appreciated no accessory muscle use, patient is speaking in complete sentences-no chest wall tenderness to palpation CVS: Regular rate and rhythm S1-S2, no murmurs rubs or gallops, pulses are brisk and equal bilaterally ABD: Soft, nondistended, nontender, no rebound guarding or rigidity, bowel sounds are normal, no pulsatile masses appreciated Extremities: Tenderness to the left medial knee without any notable bony deformity redness swelling or bruising. There is no calf swelling or tenderness. 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, patient is able to pull herself to a seated position upper and lower extremity strength and sensation is intact Constitutional Vital Signs, click to edit/add: Last Vital Signs Temp 98.9 F 01/07/25 20:22 Pulse 64 01/08/25 01:15 Resp 17 01/08/25 01:15 BP 160/55 H 01/08/25 01:15 Pulse Ox 90 L 01/08/25 01:15 O2 Del Method Room Air 01/07/25 20:22 Course Vital Signs Vital signs: Vital Signs Temperature 98.9 F 01/07/25 20:22 Pulse Rate 87 01/07/25 20:22 Respiratory Rate 18 01/07/25 20:22 Blood Pressure 234/92 H 01/07/25 20:22 Pulse Oximetry 96 01/07/25 20:22 Oxygen Delivery Method Room Air 01/07/25 20:22 Temperature 98.9 F 01/07/25 20:22 Pulse Rate 64 01/08/25 01:15 Respiratory Rate 17 01/08/25 01:15 Blood Pressure 160/55 H 01/08/25 01:15 Pulse Oximetry 90 L 01/08/25 01:15 Oxygen Delivery Method Room Air 01/07/25 20:22 MDM - Fall MDM Narrative Medical decision making narrative: EKG upon arrival is a sinus rhythm at 76 bpm with LVH with strain. No acute changes were noted. Repeat EKG was ordered which is a sinus rhythm at 67 bpm with a normal axis and LVH with repolarization abnormality. These EKGs are unchanged from 1 another. This 69-year-old female with a history of diabetes, hypertension, coronary artery disease who states that she has had 9 heart attacks and has 2 coronary stents and has chronic back pain for which she is awaiting medical clearance for surgical intervention for her chronic back pain presents for evaluation after she fell at home. Patient states that she was getting up to check her glucose on her phone and because of her chronic back pain her left knee gave out on her. She fell onto a stool in her living room. Her and son were able to pick her up and return her to a sitting position. EMS was then called. Upon arrival she was noted to be markedly hypertensive. She complained of chest pain earlier in the day. An EKG done upon arrival was a sinus rhythm at 76 bpm with flattened T waves and LVH pattern. I reviewed recent stress test results. The initial stress test was unable to be read due to the changes on her EKG but the Cardiolite stress test portion was negative with an ejection fraction of 59%. The patient did not have any neurologic symptoms upon arrival but stated that she did not remember exactly what had happened. It was unclear if she had a syncopal event at this time or if the events that occurred just happened so quickly she could not recall them. Either way a CT scan of her brain was done that was negative for acute findings. X-ray of the left knee which she stated was hurting her more than usual was negative for fracture or dislocation but did show some knee effusion. She was medicated with morphine and IV fluids in the emergency department. She was given her oral Coreg for her blood pressure with minimal improvement in her blood pressure and then was given 10 mg of IV labetalol with clinical improvement. She was also given 324 mg baby aspirin and her Plavix as she had been noncompliant with them earlier in the day. She was given a dose of Percocet for her ongoing back and knee pain. Labs are reviewed. She has a normal white count and hemoglobin. Electrolytes are normal with a mild elevation in her glucose at 178. Creatinine is 1.2. Initial troponin was 106. Repeat troponin was 125. After this a second EKG was ordered which is a sinus rhythm at 67 bpm with LVH and is unchanged from the first EKG. Third troponin was ordered and is minimally elevated at 130. BNP is 1271 and 1 view chest x-ray was reviewed by radiology with no acute findings. This patient was discussed at length with Dr. Davis, cardiology at [facility] who suggest that her elevated troponin is likely related to her elevated blood pressure. He suggest close management of her hypertensive urgency and admission to this facility with cardiology consultation. Patient and her family are in agreement with this plan. Case was discussed with the hospitalist and she is excepted for admission to [facility] with telemetry monitoring. At the time of this dictation her blood pressure is 140/70, pulse is 60 and her pulse ox is 95% The [address] [address] Stress Test Report Signed Patient: ORTEGA POWELL MR#: [id number] : 1955 Acct:[id number] Age/Sex: 69 / F ADM Date: 12/24/24 Loc: [place] Date of Service: 12/26/24Attending Dr: EM COREAS APRN cc: KAREN EMANUEL ; GLADYS YUNG~ Stress Test Stress Test Allergies Allergy/AdvReac Type Severity Reaction Status Date / Time Antihistamines - Alkylamine AdvReac Unknown Unknown Verified 10/17/24 21:18 Requesting physician: EM COREAS Procedure: This was a Lexiscan stress test with myocardial perfusion imaging performed at the [facility]. Intravenous line was secured. The patient was attached to electrocardiographic monitoring. Baseline vital signs and ECG were obtained. Lexiscan 0.4 mg was administered intravenously followed by administration of Cardiolite. The patient then went on to obtain myocardial perfusion imaging. Resting heart rate was 66 bpm and peak heart rate was 79 bpm. Resting blood pressure was 146/80 and peak blood pressure was 146/80. General Information: Reason for Stress Test: Presurgical clearance, abnormal ECG. Cardiac History and Risk Factors: Hypertension, myocardial infarction, stents, diabetes. Resting 12 - Lead Electrocardiogram: Rhythm with sinus arrhythmia, significant ST and T wave abnormality consider inferior lateral ischemia. Stress Test: Protocol: Pharmacologic stress with Lexiscan. Exercise Capacity: Not assessed. Blood Pressure Response: Resting hypertension, normal response. Rhythm: Sinus with occasional PVCs. ST - Response: No change in pre-existing ST segment abnormalities following infusion of Lexiscan. Patient Response: Asymptomatic. Interpretation: 1. Uninterpretable stress test by ECG criteria due to significant baseline ST segment abnormalities. 2. Myocardial perfusion imaging will be reported separately. Follow-up Catracho cardial perfusion study on 12/24/2024 was normal with ejection fraction of 59% Lab Data Attestation: I reviewed the patient's lab results. Labs: Lab Results 01/07/25 01/07/25 01/08/25 Range/Units 20:50 22:45 00:25 WBC 6.3 (4.0-11.0) 10^3/uL RBC 4.15 L (4.20-5.40) 10^6/uL Hgb 12.9 (12.0-16.0) g/dL Hct 38.8 (36.0-48.0) % MCV 93.5 (81.0-99.0) fL MCH 31.1 (26.7-34.0) pg MCHC 33.2 (29.9-35.2) g/dL RDW 12.7 (11.0-15.0) % Plt Count 252 (150-450) 10^3/uL MPV 10.7 (9.5-13.5) fL Neut % (Auto) 67.3 (43.0-75.0) % Lymph % (Auto) 23.0 (20.5-60.0) % [place] % (Auto) 7.3 (1.7-12.0) % Eos % (Auto) 1.8 (0.9-7.0) % Baso % (Auto) 0.3 (0.2-2.0) % Neut # (Auto) 4.2 (1.4-6.5) 10^3/uL Lymph # (Auto) 1.4 (1.2-3.8) 10^3/uL [place] # (Auto) 0.5 (0.3-0.8) 10^3/uL Eos # (Auto) 0.1 (0.0-0.7) 10^3/uL Baso # (Auto) 0.0 (0.0-0.1) 10^3/uL Abs Immat Gran (auto) 0.02 (0.00-0.03) 10^3/uL Imm/Tot Granulo (auto) 0.3 (0.0-0.5) % Sodium 142 (136-145) mmol/L Potassium 3.9 (3.5-5.1) mmol/L Chloride 106 (98-107) mmol/L Carbon Dioxide 29.4 (21.0-32.0) mmol/L Anion Gap 10.5 BUN 17.0 (7.0-18.0) mg/dL Creatinine 1.20 H (0.55-1.02) mg/dL Est GFR ( Amer) 54 L (>=60 mL/min/1.73m^2) Est GFR (Non-Af Amer) 45 L (>=60 mL/min/1.73m^2) BUN/Creatinine Ratio 14.2 Glucose 178 H (74-106) mg/dL Calcium 9.1 (8.5-10.1) mg/dL Total Bilirubin 0.2 (0.2-1.0) mg/dL AST 14 L (15-37) U/L ALT 21 (14-59) U/L Alkaline Phosphatase 86 (46-116) U/L Troponin I High Sens 106.7 H* 125.8 H* 130.7 H* (4.0-51.3) pg/mL NT-Pro-B Natriuret Pep 1271.0 H* (<=900.0) pg/mL Total Protein 7.2 (6.4-8.2) g/dL Albumin 3.2 L (3.4-5.0) g/dL Globulin 4.0 g/dL Albumin/Globulin Ratio 0.8 ECG Data Attestation: I personally reviewed and interpreted this ECG as follows: (Sinus rhythm at 76 bpm, normal axis, LVH with strain pattern, no acute ST segment elevation or T wave inversion) Critical Care Time Critical Care Time Critical Care Time: Yes Total Critical Care Time: 35 Attestation: This patient presents for evaluation after she fell at home with markedly elevated blood pressure requiring IV intervention. She has elevated troponins requiring consultation with cardiology. She required my utmost attention due to the high probability of sudden clinically significant deterioration in her condition. I provided critical care time including documentation time, medication orders and management reevaluation vital sign assessment ordering and reviewing of lab tests x-ray studies and admission orders. Consultation with cardiology and consultation with hospitalist service. Aggregate critical care time is 35 minutes including only time during which I was engaged in work directly related to her care and did not include time spent treating other patients simultaneously Discharge Plan Discharge Chief Complaint: Fall Clinical Impression: Hypertensive urgency, Elevated troponin, Chronic knee pain, Chronic back pain Patient Disposition: Admitted as Observation Time of Disposition Decision: 02:10 Prescriptions / Home Meds: No Action amlodipine 10 mg tablet 10 mg PO QDAY anastrozole 1 mg tablet 1 mg PO QDAY atorvastatin 80 mg tablet 80 mg PO QDAY bupropion HCl 150 mg tablet extended release 24 hr 150 mg PO QDAY carvedilol 12.5 mg tablet 12.5 mg PO BID clopidogrel 75 mg tablet 75 mg PO QDAY isosorbide mononitrate 30 mg tablet extended release 24 hr 30 mg PO QDAY lisinopril 40 mg tablet 10 mg PO BID metformin 500 mg tablet extended release 24 hr 500 mg PO BID pantoprazole 40 mg tablet,delayed release (DR/EC) 40 mg PO Q12H spironolactone 25 mg tablet 25 mg PO QDAY aspirin 81 mg capsule 81 mg PO DAILY oxcarbazepine 300 mg tablet 300 mg PO BID gabapentin 300 mg capsule 300 mg PO BEDTIME insulin lispro protamin-lispro 100 unit/mL (75-25) insulin pen 45 unit SUBCUT .am Rx Instructions: Patient takes 45 units in AM and 55 Units PM Print Language: Tajik Referrals: KAREN EMANUEL [Primary Care Provider] - 1 week
[2025-01-07 21:11] LABS: Basophils Percent Auto 0.3 % (0.2-2.0); Eosinophils Absolute Auto 0.1 10^3/uL (0.0-0.7); Eosinophils Percent Auto 1.8 % (0.9-7.0); Hematocrit 38.8 % (36.0-48.0); Hemoglobin 12.9 g/dL (12.0-16.0); Immature Granulocytes Abs Auto 0.02 10^3/uL (0.00-0.03); Immature Granulocytes Pct Auto 0.3 % (0.0-0.5); Lymphocytes Absolute Auto 1.4 10^3/uL (1.2-3.8); Mean Corpuscular HGB Conc 33.2 g/dL (29.9-35.2); Mean Corpuscular Hemoglobin 31.1 pg (26.7-34.0); Mean Corpuscular Volume 93.5 fL (81.0-99.0); Mean Platelet Volume 10.7 fL (9.5-13.5); Monocytes Absolute Auto 0.5 10^3/uL (0.3-0.8); Monocytes Percent Auto 7.3 % (1.7-12.0); Neutrophils Absolute Auto 4.2 10^3/uL (1.4-6.5); Neutrophils Percent Auto 67.3 % (43.0-75.0); Platelet Count 252 10^3/uL (150-450); Red Blood Count 4.15 10^6/uL (4.20-5.40); Red Cell Distribution Width 12.7 % (11.0-15.0); White Blood Count 6.3 10^3/uL (4.0-11.0)
[2025-01-07 21:27] LABS: Alanine Aminotransferase 21 U/L (14-59); Albumin Globulin Ratio 0.8; Albumin Level 3.2 g/dL (3.4-5.0); Alkaline Phosphatase 86 U/L (46-116); Anion Gap 10.5; Aspartate Amino Transferase 14 U/L (15-37); BUN Creatinine Ratio 14.2; Bilirubin Total 0.2 mg/dL (0.2-1.0); Calcium 9.1 mg/dL (8.5-10.1); Carbon Dioxide 29.4 mmol/L (21.0-32.0); Chloride 106 mmol/L (98-107); Estimated GFR (African America 54 (>=60 mL/min/1.73m^2); Estimated GFR (Non-African Ame 45 (>=60 mL/min/1.73m^2); Glucose 178 mg/dL (74-106); Potassium 3.9 mmol/L (3.5-5.1); Sodium 142 mmol/L (136-145); Total Protein 7.2 g/dL (6.4-8.2)
[2025-01-07] MEDS: MORPHINE SULFATE 4 MG/ML VIAL IV (21:28)
[2025-01-07] MEDS: ONDANSETRON PF 4 MG/2 ML VIAL IV (21:29)
[2025-01-07 21:32] LABS: Troponin I High Sensitivity 106.7 pg/mL (4.0-51.3)
[2025-01-07] MEDS: CARVEDILOL 12.5 MG TABLET PO (22:19)
[2025-01-07] MEDS: LABETALOL HCL 20 MG/4 ML SYRINGE 10 MG IVP (23:09)
[2025-01-07 23:14] LABS: Troponin I High Sensitivity 125.8 pg/mL (4.0-51.3)
[2025-01-08] VITALS (42 sets, daily range): BP systolic 116–182; BP diastolic 44–81; PULSE 58–93; TEMP 36.3–37.1; O2SAT 87–97; BMI 35.0
--- NOTE | 2025-01-08 00:03 | ECG_ITS ---
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 Measurements Intervals Stewart Rate: 67 P: 40 IL: 164 QRS: 7 QRSD: 104 T: -53 QT: 394 QTc: 410 Interpretive Statements 1100 Sinus rhythm 5234 Left ventricular hypertrophy with repolarization abnormality 9150 abnormal ECG Compared to ECG 01/07/2025 21:20:04 No significant changes Electronically Signed On 01-08-2025 8:12:31 EDT by GLADYS YUNG M.D.
[2025-01-08] MEDS: CLOPIDOGREL BISULFATE 75 MG TABLET PO ×2 (00:31→08:46)
[2025-01-08] MEDS: ASPIRIN 81 MG TAB.CHEW 324 MG PO (00:31)
[2025-01-08] MEDS: OXYCODONE HCL/ACETAMINOPHEN 5MG/325MG 1 TAB PO (00:32)
[2025-01-08 00:53] LABS: Troponin I High Sensitivity 130.7 pg/mL (4.0-51.3)
--- OUTSIDE RECORDS SUMMARY | 2025-01-08 02:41 | XMS_ITS | CCD ---
Author Organization [facility] Care Team Providers Care Psychiatric Aides Teacher Name Role Phone CARLOS EDUARDO VAN Unavailable Unavailable JONAH SANABRIA Admitting Unavailable JONAH SANABRIA Attending Unavailable GARRETT MCDONALD Referring Unavailable FARAZ OSMAN Primary Care Unavailable [place] Procedure Practitioner Unavailab JENNIFER Ross Surgeon Unavailable FARAZ OSMAN Primary Care Unavailable FARAZ OSMAN Referring Unavailable MIGUEL DEMPSEY Attending Unavailable ELTON DEMPSEYHAMMAD R Admitting Unavailable TN Procedure Practitioner Unavailab Dov Blank Surgeon Unavailable WILMAR MORRIS Primary Care Unavailable DOMINICK MCGEE Referring Unavailable THERESA TOMAS Admitting Unavailable CHERELLEELTON QUINONESHAMMAD R Attending Unavailable [place] Procedure Practitioner Unavailab ELTON TorresHAMMAD R Surgeon Unavailable SHAHANA Osman Primary Care Provider SHAHANA Osman Referring Provider MD Karoline Farmer Attending Provider DO Jac Hemphill Attending Provider [phone] SHAHANA Osman Primary Care Provider SHAHANA Osman Referring Provider MD Karoline Farmer Attending Provider [phone] SHAHANA Osman Referring Provider MD Karoline Farmer Attending Provider SHAHANA Osman Referring Provider [phone] MD Karoline Farmer Attending Provider [phone] SHAHANA Osman Referring Provider MD Karoline Farmer Attending Provider Dawson, SHAHANA Ruth Primary Care Provider SHAHANA Osman Referring Provider [phone] MD Karoline Farmer Attending Provider [phone] FARAZ OSMAN Primary Care Physician Yoana [...] Unavailable Faraz Osman MD Primary Care Provider [phone] FARAZ OSMAN Primary Care Unavailable FARAZ OSMAN Referring Unavailable FARAZ OSMAN Primary Care Unavailable FARAZ OSMAN Referring Unavailable FARAZ OSMAN Primary Care Unavailable FARAZ OSMAN Referring Unavailable FARAZ OSMAN Primary Care Unavailable FARAZ OSMAN Referring Unavailable FARAZ OSMAN Attending Unavailable Faraz Osman MD Unavailable FARAZ OSMAN Attending Unavailable FARAZ OSMAN [...] Date of Onset Reaction(s) Facility (1 source) 41672,00 Drug allergy (disorder) 02-02-2017 [facility] Repository (20 sources) diphenhydrAMINE; Translations: [diphenhydramine ] Drug Allergy 12-20-2021 [facility] Medications Current Medications Medication Drug Class(es) [...] sources) Opioid Agonist HYDROcodone-Acet a minophen Active [id number] 200 actuat albuterol 0.09 mg/actuat metered dose [...] Continuous Glucose Sensor (FreeStyle Yesenia 2 Sensor) [facility] (20 sources) Start: 11-20-2024 End: 12-22-2024 Continuous Glucose Sensor (FreeStyle Yesenia 2 Sensor) [facility] 1 Device every 14 (fourteen) days 11/20/2024 12/22/2024 Discontinued (Duplicate order) Start: 11-03-2024 Continuous Glu cose Sensor (FreeStyle Yesenia 2 Sensor) [facility] Indications: Type 2 diabetes mellitus with diabetic neuropathy, with long-term current use of insulin ([facility]) 1 Device every 14 (fourteen) days 6 each 3 11/03/2024 Active Start: 06-11-2024 Continuous Glu cose Sensor (FreeStyle Yesenia 2 Sensor) [facility] Indications: Type 2 diabetes mellitus with diabetic [...] hyperglycemia, with long-term current use of insulin ([facility]) Take 1 tablet (10 mg) by mouth Daily 90 tablet 2 11/03/2024 Active Start: 05-05-2024 take 1 tablet by yesica th once daily empagliflozin (Jardiance) 10 MG Indications: Type 2 diabetes mellitus with hyperglycemia, with long-term current use of insulin (CMS/[facility]) Take 1 tablet (10 mg) by mouth [...] Start: 11-06-2023 take 1 capsule by mo [facility] at bedtime gabapentin (Neurontin) 300 MG capsule Indications: Bilateral carpal tunnel syndrome Take 1 capsule (300 mg) by mouth at bedtime 30 capsule 0 11/06/2023 Active Glucose (3 sources) Start: 12-22-2024 End: 12-22-2025 glucose 4 g chewable tablet Indications: Type 2 diabetes mellitus with diabetic neuropathy, with long-term current use of insulin ([facility]) Chew 4 tablets (16 g) if needed [...] MG 24 hr tablet Indications: Atherosclerosis of [place] coronary artery of [place] heart without angina pectoris (CMS/HCC) Take 1 tablet (30 mg) by mouth in the morning. 90 tablet 3 11/03/2024 Active Start: 02-21-2024 take 1 tablet by yesica th once daily in the morning isosorbide mononitrate ER (Imdur) 30 MG 24 hr tablet Indications: Atherosclerosis of [place] coronary artery of [place] heart without angina pectoris (CMS/HCC) take 1 tablet by mouth every morning 30 tablet 2 02/21/2024 Active Start: 11-23-2022 take 1 tablet by yesica th in the morning, then take 1 tablet by mouth every twenty-four hours isosorbide mononitrate ER (Imdur) 30 MG 24 hr tablet Take 30 mg by mouth in the morning. 0 11/23/2022 Active Isosorbide [place] itrate Active lisinopril 40 mg oral tablet [...] Polyene Antifungal Start: 09-29-2024 nystatin (N yamyc) 522876 UNIT/GM powder Indications: Candidiasis of skin Apply topically Daily 60 g 2 09/29/2024 Active Start: 03-31-2024 End: 09-29-2024 nystatin (Nyamyc) 419002 UNI T/GM powder Indications: Candidiasis of skin apply to affected area twice a day if needed 60 g 2 03/31/2024 09/29/2024 Discontinued (Reorder) Nyamyc 454404 UN IT/GM powder Nyamyc 100,000 unit/gram topical [...] Blood Gluc Sensor (FreeStyle Yesenia 2 Sensor) [facility] Indications: Type 2 diabetes mellitus with diabetic neuropathy, with long-term current use of insulin ([facility]/HCC) 1 Device every 14 (fourteen) days. 2 each 3 06/29/2023 06/11/2024 Discontinued (Reorder) Start: 06-29-2023 Continuous Blo od Gluc Sensor (FreeStyle Yesenia 2 Sensor) [facility] Indications: Type 2 diabetes mellitus with diabetic neuropathy, with long-term current use of insulin ([facility]/HCC) 1 Device every 14 (fourteen) days. 2 [...] hyperglycemia, with long-term current use of insulin ([facility]) Inject 60 Units under [...] myocardial infarction; Translations: [Atherosclerotic heart disease of [place] coronary artery without angina pectoris] Onset: 11-02-2017 [...] Translations: [Immunodeficiency due to conditions classified elsewhere (CMS/[facility])] 06-11-2024 Chronic Immunizations and screening for infectious [...] initial encounter Episodic Other aftercare (1 source) custodial (current) use of 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 latelets; Translations: [RESIDENTIAL REAL ESTATE APPRAISER (CURRENT) USE OF ANTITHROMBOTICS/ANTIP LATELETS] Onset: 11-14-2018 Episodic Other aftercare (7 sources) Drug therapy finding; Translations: [Encounter for therapeutic drug level monitoring] 01-13-2022 Episodic Other aftercare (1 source) custodial (current) use of oral hypoglycemic drugs; Translations: [RESIDENTIAL REAL ESTATE APPRAISER (CURRENT) USE OF ORAL HYPOGLYCEMIC DRUGS] Onset: [...] 3 03-30-2023 Episodic Other aftercare (2 sources) intermediate designer (current) use of insulin; Translations: [RESIDENTIAL REAL ESTATE APPRAISER (CURRENT) USE OF INSULIN] Onset: 8 Episodic Other aftercare (2 sources) custodial (current) use of aspirin; Translations: [RESIDENTIAL REAL ESTATE APPRAISER (CURRENT) USE OF ASPIRIN] Onset: 8 Episodic Other aftercare (7 sources) Encounter for therapeutic drug level monitoring; Translations: [Encounter for therapeutic drug monitoring] Onset: 2 Episodic Other aftercare (20 sources) Long-term current use of insulin; Translations: [custodial (current) use of insulin] Onset: 8 03-30-2023 Episodic Other aftercare (1 source) Other vermin exterminator (current) drug therapy; Translations: [OTH RESIDENTIAL REAL ESTATE APPRAISER CURRENT DRUG THERAPY] Onset: 2 Episodic Other aftercare (1 source) custodial (current) use of oral hypoglycemic drugs; Translations: [RESIDENTIAL REAL ESTATE APPRAISER USE ORAL HYPOGLYCEMIC DX] Onset: 2 Episodic Other aftercare (1 source) custodial (current) use of aromatase inhibitors; Translations: [custodial (current) use of aromatase inhibitors] Onset: 2 [...] Irby's office aware. Patient verbalized understanding. Normal [facility] NM CALE PERF SPECT REST STRon 12-24-2024 [place] [address] Nuclear Medicine Report Signed Patient: KYLE POWELL MR#: [id number] : 1955 Acct:[id number] Age/Sex: 69 / F ADM Date: 12/24/24 Loc: OR Attending Dr: EM ARZOLA APRN Ordering Physician: EM ARZOLA APRN Date of Service: 12/24/24 Procedure(s): NM cale perf SPECT rest str Accession Number(s): [id number] cc: FARAZ OSMAN ; EM ARZOLA APRN Patient Name: KYLE POWELL MR#: [id number] : 1955 Exam Date: 12/24/2024 Ordering Doctor: EM ARZOLA PROGRAM MANAGER RN RADIOLOGY REPORT PROCEDURE: NM CALE PERF SPECT [...] the study was pending per attending physician [facility]. For more details, please see separate cardiac [...] Signed By: 12/24/24 1428 DD/ 1427 TD/TT: Adult Literacy Instructor: [facility] Radiology, Radiologi MD jose cruz - 12/24/2024 [place] [address] Nuclear Medicine Report Signed Patient: KYLE POWELL MR#: [id number] : 1955 Acct:[id number] Age/Sex: 69 / F ADM Date: 12/24/24 Loc: [place] Attending Dr: EM ARZOLA APRN Ordering Physician: EM ARZOLA APRN Date of Service: 12/24/24 Procedure(s): NM cale perf SPECT rest str Accession Number(s): [id number] cc: FARAZ OSMAN ; EM ARZOLA APRN Patient Name: KYLE POWELL MR#: [id number] : 1955 Exam Date: 12/24/2024 Ordering Doctor: [...] the study was pending per attending physician [facility]. For more details, please see separate cardiac [...] Signed By: 12/24/24 142 DD/ 26 TD/TT: Adult Literacy Instructor: [facility] Radiology Study observation (narrative) [facility] NM CALE PERF SPECT REST STROr dered By: Radiologist Radiology on 12-24-2024 [facility] Work Phone: Laboratory - Hematology and Cell countson 12-22-2024 HbA1c (Bld) [Mass fraction] 7.1 % [facility] No Panel Informationon 12-22 [facility] Office Visiton 12-11-2024 Follow-up visit [id number] Jostin Powell 1955 F Date Provider Department Center 12/11/2024 166-EM ARZOLA CARD [facility] No family history on file Level of Service:42343 [place] OFFICE/OUTPATIENT ESTABLISHED MOD MDM 30 MIN Reason for Visit and Comments: Coronary Artery Disease [187] Pre-op Exam [207119] Normal [facility] Office Visiton 11-26-2024 Follow-up visit [id number] Jostin Powell 1955 F Date Provider Department Center 11/26/2024 266-CLAUDIA DIAZ MP ORTHO MPORTHO No family history on file Level of Service:54966 [place] OFFICE/OUTPATIENT NEW MODERATE MDM 45 MINUTES (GC) Reason for Visit and Comments: Pain [136] Normal [facility] 36on 10-21-2024 36 Patient called to schedule a new patient appointment with our office. Patient wants to be seen for: Lumbar spine Patient had MRI done at [facility] Patient has Not had any surgery or procedures on this body part Patient has not been seen by any other orthopaedic surgeons for this issue This appointment IS NOT related to a work related injury Normal [facility] MR LUMBAR SPINE WO CONTRASTo n [...] *Reduce amlodipine t o 5mg daily Normal [facility] Laboratory - Hematology and Cell countson 09-10-2024 HbA1c (Bld) [Mass fraction] 7.7 % [facility] No Panel Informationon 09-10 [facility] Office Visiton 09-10-2024 Follow-up visit [id number] Jostin Powell 1955 F Date Provider Department Center 09/10/2024 Lita-EM ARZOLA CARD [facility] No family history on file Level of Service:32024 [place] OFFICE/OUTPATIENT ESTABLISHED MOD MDM 30 MIN Reason for Visit and Comments: Fall [119296] Extremity Weakness [778713] Normal [facility] No Panel Informationon 07-09 Darrel Edwards NP 07/25/2024 11:09 PM Ear Cerumen Removal Date/Time: 07/09/2024 2:48 PM Performed by: Darrel Edwards NP Authorized by: Darrel Edwards NP Consent: Consent obtained: Verbal Consent given by: Patient Risks, benefits, and alternatives were discussed: yes Risks discussed: Bleeding, infection, pain, dizziness, incomplete removal and TM perforation Alternatives discussed: Alternative treatment [place] protocol: Procedure explained and questions answered to patient or proxy's satisfaction: yes Procedure details: Location: L ear Procedure type: irrigation Procedure type comment: Alternating with irrigation and use of curette Post-procedure details: Inspection: Bleeding, macerated skin and TM intact Hearing quality: Improved Procedure completion: Tolerated well, no immediate complications [facility] Laboratory - Hematology and Cell countson 06-11-2024 HbA1c (Bld) [Mass fraction] 7.1 % [facility] No Panel Informationon 06-11 [facility] Progress Note - Nutritionon 03-04-2024 Progress Note [...] Her referral is good for one year. [facility] Physician Referralon 024 Physician Referral [id number]#1.00TIFF [facility] Progress Note - Nutritionon 12-11-2023 Progress [...] added sugars in detail. F/U in January. [facility] Diabetic Self Management Edu cationon 11-09-2023 Diabetic Self Management Education [id number]#1.00TIFF [facility] Consent for Treatmenton Consent for Treatment [id number]#1.00TIFF [facility] Physician Orderon 10-10-2023 Physician Order [id number]#1.00TIFF [facility] AMYLASEon 02-14-2023 Amylase [Catalytic activity/Vol] 39 U/L Normal 25-115 [facility] Comment on above: Performed By: #### C KAROLINE KAT LIPA ####[facility] [address] [place], [place] [address]IgDr. Manuel Reed CBC AUTO DIFFon 02-14-2023 BASO # 0.0 103/ul Normal 0.0-0.1 [facility] Comment on above: Performed By: #### C BC #### [facility] Laboratory [id number] Manuel Reed Basophils/100 WBC (Bld) 0.5 % Normal 0.2-2.0 [facility] Comment on above: Performed By: #### C BC #### [facility] [address] [address] [address] Manuel Reed EO # 0.3 103/ul Normal 0.0-0.7 [facility] Comment on above: Performed By: #### C BC #### [facility] [address] [address] [address] Manuel Reed Eosinophils/100 WBC (Bld) 3.8 % Normal 0.9-7.0 [facility] Comment on above: Performed By: #### C BC #### [facility] [address] [address] [address] Manuel Reed Erythrocyte distribution width (RBC) [Ratio] 12.9 % Normal 11.0-15.0 [facility] Comment on above: Performed By: #### C BC #### [facility] [address] [address] [address] Manuel Reed Hematocrit (Bld) [Volume fraction] 43.2 % Normal 36.0-48.0 [facility] Comment on above: Performed By: #### C BC #### [facility] [id number] Manuel Reed Hemoglobin (Bld) [Mass/Vol] 14.2 g/dL Normal 12.0-16.0 [facility] Comment on above: Performed By: #### C BC #### [facility] [address] [place] [address] Dr. Manuel Reed IG # 0.02 10e3/ul Normal 0.00-0.03 [facility] Comment on above: Performed By: #### C BC #### [facility] [address] [place] [address] Dr. Manuel Reed IG % 0.3 % Normal 0.0-0.5 [facility] Comment on above: Performed By: #### C BC #### [facility] [address] [place] [address] Dr. Manuel Reed LYMPH # 2.9 103/ul Normal 1.2-3.8 [facility] Comment on above: Performed By: #### C BC #### [facility] [address] [place] [address] Dr. Manuel Reed Lymphocytes/100 WBC (Bld) 39.5 % Normal 20.5-60.0 [facility] Comment on above: Performed By: #### C BC #### [facility] [address] [place] [address] Dr. Manuel Reed MANUAL DIFF REQ NO Normal [facility] Comment on above: Performed By: #### C BC #### [facility] [address] [place] [address] Dr. Manuel Reed MCH (RBC) [Entitic mass] 29.5 pg Normal 26.7-34.0 [facility] Comment on above: Performed By: #### C BC #### [facility] [address] [place] [address] Dr. Manuel Reed MCHC (RBC) [Mass/Vol] 32.9 g/dL Normal 29.9-35.2 [facility] Comment on above: Performed By: #### C BC #### [facility] [address] [place] [address] Dr. Manuel Reed MCV (RBC) [Entitic vol] 89.8 fL Normal 81.0-99.0 [facility] Comment on above: Performed By: #### C BC #### [facility] [address] [place] [address] Dr. Manuel Reed MONO # 0.7 103/ul Normal 0.3-0.8 [facility] Comment on above: Performed By: #### C BC #### [facility] [address] [place] [address] Dr. Manuel Reed Monocytes/100 WBC (Bld) 10.1 % Normal 1.7-12.0 [facility] Comment on above: Performed By: #### C BC #### [facility] [address] [place] [address] Dr. Manuel Reed NEUT # 3.4 103/ul Normal 1.4-6.5 [facility] Comment on above: Performed By: #### C BC #### [facility] [address] [place] [address] Dr. Manule Reed Neutrophils/100 WBC (Bld) 45.8 % Normal 43.0-75.0 [facility] Comment on above: Performed By: #### C BC #### [facility] [address] [place] [address] Dr. Manuel Reed Platelet mean volume (Bld) [Entitic vol] 10.6 fL Normal 9.5-13.5 [facility] Comment on above: Performed By: #### C BC #### [facility] [address] [place] [address] Dr. Manuel Reed PLT 259 103/ul Normal 150-450 [facility] Comment on above: Performed By: #### C BC #### [facility] [address] [place] [address] Dr. Manuel Reed RBC 4.81 106/ul Normal 4.20-5.40 [facility] Comment on above: Performed By: #### C BC #### [facility] [address] [place] [address] Dr. Manuel Reed WBC 7.4 103/ul Normal 4.0-11.0 [facility] Comment on above: Performed By: #### C BC #### [facility] [address] [place] [address] ABD/PELV Jeannie Patterson [...] DIANA BUI Date: 2023-02-14 02:48 Normal [facility] ER URINE PROFILEon 3 Bilirubin Ql (U) Negative Normal NEGATIVE [facility] Comment on above: Performed By: #### U MICRO, ERUR #### [facility] [address] [address] [address] Manuel Reed Clarity (U) CLEAR Normal CLEAR [facility] Comment on above: Performed By: #### U MICRO, ERUR #### [facility] [address] [address] [address] Manuel Reed Color (U) LT. YELLOW Normal YELLOW [facility] Comment on above: Performed By: #### U MICRO, ERUR #### [facility] [address] [address] [address] Manuel Reed ERUAHD A micrscopic examina tion will be performed if indicated. Normal [facility] Comment on above: Performed By: #### U MICRO, ERUR #### [facility] [address] [place] [address] Dr. Manuel Reed Glucose Ql (U) 1000 mg/dl Abnormal NEGATIVE [facility] Comment on above: Performed By: #### U MICRO, ERUR #### [facility] [address] [address] [address] Manuel Reed Hemoglobin Ql (U) LARGE Abnormal NEGATIVE [facility] Comment on above: Performed By: #### U MICRO, ERUR #### [facility] [address] [address] [address] Manuel Reed Ketones Ql (U) Negative Normal NEGATIVE [facility] Comment on above: Performed By: #### U MICRO, ERUR #### [facility] [address] [address] [address] Manuel Reed LEUKOCYTES TRACE Abnormal NEGATIVE [facility] Comment on above: Performed By: #### U MICRO, ERUR #### [facility] [address] [address] [address] Manuel Reed Nitrite Ql (U) Negative Normal NEGATIVE [facility] Comment on above: Performed By: #### U MICRO, ERUR #### [facility] [address] [place] [address] Dr. Manuel Reed pH (U) 5.5 [pH] Normal 5-9 [facility] Comment on above: Performed By: #### U MICRO, ERUR #### [facility] [address] [address] [address] Manuel Reed SPEC GRAVITY 1.015 Normal 1.005-<=1.0 25 [facility] Comment on above: Performed By: #### U MICRO, ERUR #### [facility] [address] [address] [address] Manuel Reed UA PROTEIN Negative Normal NEGATIVE/ TRACE [facility] Comment on above: Performed By: #### U MICRO, ERUR #### [facility] [address] [address] [address] Manuel Reed UR MICRO IND INDICATED Normal [facility] Comment on above: Performed By: #### U MICRO, ERUR #### [facility] [address] [place] [address] Dr. Manuel Reed Urobilinogen Qn (U) 0.2 {Seven'U}/dL Normal 0.2 - 1. 0 [facility] Comment on above: Performed By: #### U MICRO, ERUR #### [facility] [address] [place] [address] Dr. Manuel Reed LACTATE/LACTIC ACIDon 2022 Lactate [Moles/Vol] 2.5 mmol/L Critically high 0.4-2.0 [facility] Comment on above: Performed By: #### L ACT #### [facility] [address] [place] [address] Dr. Manuel Reed LIPASEon 02-14-2023 Lipase [Catalytic activity/Vol] 167.0 U/L Normal 73.0-393.0 [facility] Comment on above: Performed By: #### C MP, KAROLINE, LIPA ####[facility] [id number] [address]Dr. Manuel Reed PROF 14(COMP METB)on 023 Albumin [Mass/Vol] 3.2 g/dL Critically low 3.4-5.0 [facility] Comment on above: Performed By: #### C MP, KAROLINE, LIPA ####[facility] [id number] [address]Dr. Manuel Reed Albumin/Globulin [Mass ratio] 0.8 {ratio} Normal [facility] Comment on above: Performed By: #### C KAROLINE KAT LIPA ####[facility] [address] [address]Dr. Manuel Reed ALP [Catalytic activity/Vol] 113 U/L Normal 46-116 [facility] Comment on above: Performed By: #### C KAROLINE KAT LIPA ####[facility] [id number] [address]Dr. Manuel Reed ALT [Catalytic activity/Vol] 42 U/L Normal 14-59 [facility] Comment on above: Performed By: #### C KAROLINE KAT LIPA ####[facility] [address] [place] [address]Dr. Manuel Reed Anion gap [Moles/Vol] 16.1 mmol/L Normal [facility] Comment on above: Performed By: #### C KAROLINE KAT LIPA ####[facility] [address] [place] [address]Dr. Manuel Reed AST [Catalytic activity/Vol] 21 U/L Normal 15-37 [facility] Comment on above: Performed By: #### C KAROLINE KAT LIPA ####[facility] [address] [place] [address]Dr. Manuel Reed Bilirubin [Mass/Vol] 0.2 mg/dL Normal 0.2-1.0 [facility] Comment on above: Performed By: #### C KAROLINE KAT, LIPA ####[facility] [address] [place] [address]Dr. Manuel Reed Calcium [Mass/Vol] 9.3 mg/dL Normal 8.5-10.1 [facility] Comment on above: Performed By: #### C KAROLINE KAT, LIPA ####[facility] [address] [place] [address]Dr. Tricarlos Reed Chloride [Moles/Vol] 102 mmol/L Normal 98-107 [facility] Comment on above: Performed By: #### C KAROLINE KAT LIPA ####[facility] [address] [place] [address]Dr. Manuel Reed CO2 [Moles/Vol] 26.5 mmol/L Normal 21.0-32.0 [facility] Comment on above: Performed By: #### C MP, KAROLINE, LIPA ####[facility] [address] [place] [address]Dr. Manuel Reed Creatinine [Mass/Vol] 1.15 mg/dL Critically high 0.55-1.02 [facility] Comment on above: Performed By: #### C MP, KAROLINE, LIPA ####[facility] [address] [place] [address]Dr. Manuel Reed EGFR-AF [place]IZEN [place] 57 mL/min/1.73m2 Critically low >=60 [facility] Comment on above: Performed By: #### C MP, KAROLINE, LIPA ####[facility] [address] [place], [place] [address]Dr. Manuel Reed EGFR-NON AF CITIZEN OF [place] 47 mL/min/1.73m2 Critically low >=60 [facility] Comment on above: Performed By: #### C MP, KAROLINE, LIPA ####[facility] [address] [place], [place] [address]Dr. Manuel Reed Globulin (S) [Mass/Vol] 4.2 g/dL Normal [facility] Comment on above: Performed By: #### C MP, KAROLINE, LIPA ####[facility] [address] [place] [address]Dr. Manuel Reed Glucose [Mass/Vol] 396 mg/dL Critically high 74-106 [facility] Comment on above: Performed By: #### C MP, KAROLINE, LIPA ####[facility] [address] [place], [place] [address]Dr. Manuel Reed Potassium [Moles/Vol] 4.6 mmol/L Normal 3.5-5.1 [facility] Comment on above: Performed By: #### C MP, KAROLINE, LIPA ####[facility] [address] [place] [address]Dr. Manuel Reed Protein [Mass/Vol] 7.4 g/dL Normal 6.4-8.2 [facility] Comment on above: Performed By: #### C KAROLINE KAT LIPA ####[facility] [address] [place] [address]Dr. Manuel Reed Sodium [Moles/Vol] 140 mmol/L Normal 136-145 [facility] Comment on above: Performed By: #### C KAROLINE KAT LIPA ####[facility] [address] [place], [place] [address]Dr. Manuel Reed Urea nitrogen [Mass/Vol] 21.0 mg/dL Critically high 7.0-18.0 [facility] Comment on above: Performed By: #### C KAROLINE KAT LIPA ####[facility] [address] [place], [place] [address]Dr. Manuel Reed Urea nitrogen/Creatinine [Mass ratio] 18.3 mg/mg Normal [facility] Comment on above: Performed By: #### C KAROLINE KAT LIPA ####[facility] [address] [place], [place] [address]Dr. Manuel Reed PROTIMEon 02-14-2023 INR Coag (PPP) [Relative time] 0.97 {INR} Normal [facility] Comment on above: Performed By: #### P TT, PT ####[facility] [address] [place], [place] [address]Dr. Manuel Reed INR GUIDELINES SEE BELOW Normal [facility] Comment on above: Result Comment: AKHIL RED INR: 2.0 - 3.0 CONDITIONS NOT LISTED BELOW 2.5 - 3.5 FOR PROSTHETIC HEART VALVE REPLACEMENT 2.5 - 3.5 RECURRENT THROMBOSIS Performed By: #### P TT, PT ####[facility] [address] [place], [place] [address]Dr. Manuel Reed PT Coag (PPP) [Time] 10.3 s Normal 9.0-11.6 [facility] Comment on above: Performed By: #### P TT, PT ####[facility] [address] [place], [place] [address]Dr. Manuel Reed PTTon 02-14-2023 aPTT Coag (Bld) [Time] 25.7 s Normal 22.3-36.2 [facility] Comment on above: Performed By: #### P TT, PT ####[facility] [address] [place] [address]Dr. Manuel Reed URINE MICROSCOPIC ONLYon BACTERIA TRACE Abnormal NONE SEEN The [facility] Comment on above: Performed By: #### U MICRO, ERUR #### [facility] [address] [place] [address] [address] Manuel Reed Bacteria identified Cx Nom (U) NOT INDICATED Normal [facility] Comment on above: Performed By: #### U MICRO, ERUR #### [facility] [address] [place] [address] Dr. Manuel Reed CAST NONE SEEN Normal NONE SEEN [facility] Comment on above: Performed By: #### U MICRO, ERUR #### [facility] [address] [place] [address] [address] Manuel Reed Crystals LM Nom (Urine sed) NONE SEEN Normal NONE SEEN [facility] Comment on above: Performed By: #### U MICRO, ERUR #### [facility] [address] [place] [address] [address] Manuel Reed Epithelial cells LM Ql (Urine sed) RARE Normal NONE SEEN /RARE [facility] Comment on above: Performed By: #### U MICRO, ERUR #### [facility] [address] [place] [address] [address] Manuel Reed MUCOUS NONE SEEN Normal NONE SEEN [facility] Comment on above: Performed By: #### U MICRO, ERUR #### [facility] [address] [place] [address] [address] Manuel Reed RBC 0-2 Normal 0-2 [facility] Comment on above: Performed By: #### U MICRO, ERUR #### [facility] [address] [place] [address] Dr. Manuel Reed WBC 0-2 Abnormal NONE SEEN [facility] Comment on above: Performed By: #### U MICRO, ERUR #### [facility] [address] [place] [address] [address] Manuel Reed MG MAMM DIAGNOSTIC 3D TIFFANY CA Don 01-04-2023 MG MAMM DIAGNOSTIC 3D TIFFANY CAD Patient: KYLE POWELL Exam Date: 01/04/2023 : 1955 Gender:F Ordering : DR FARAZ OSMAN M.D. Admission #: [id number] Family : Order #: [id number] CLICK HERE TO VIEW EXAM RADIOLOGY REPORT [...] colon cancer at age 60. LOCATION: [facility] BREAST COMPOSITION: Scattered areas fibroglandular density. FINDINGS: [...] M.D. on 01/04/2023 at 14:48 Normal [facility] NM STRESS/REST MULTIon 11-06 NM STRESS/REST MULTI Patient: HOLLI POWELL Exam Date: 11/06/2022 : 1955 Gender:F Ordering : DR GARRETT MCDONALD M.D. Admission #: [id number] Family : DR FARAZ OSMAN M.D. Order #: [id number] CLICK HERE TO VIEW EXAM RADIOLOGY REPORT [...] MD on 11/07/2022 at 08:12 Normal [facility] CBC AUTO DIFFon 05-29-2022 BASO # 0.0 103/ul Normal 0.0-0.1 [facility] Comment on above: Performed By: #### C BC ####[facility] [address] [place], [place] [address]EfScott Reed Basophils/100 WBC (Bld) 0.3 % Normal 0.2-2.0 [facility] Comment on above: Performed By: #### C BC ####[facility] [address] [place], [place] [address]SnScott Reed EO # 0.2 103/ul Normal 0.0-0.7 [facility] Comment on above: Performed By: #### C BC ####[facility] [address] [place] [id number]. Manuel Reed Eosinophils/100 WBC (Bld) 3.1 % Normal 0.9-7.0 [facility] Comment on above: Performed By: #### C BC ####[facility] [address] [place], [place] [address]Dr. Manuel Reed Erythrocyte distribution width (RBC) [Ratio] 13.0 % Normal 11.0-15.0 [facility] Comment on above: Performed By: #### C BC ####[facility] [address] [place], [place] [address]Dr. Manuel Reed Hematocrit (Bld) [Volume fraction] 42.5 % Normal 36.0-48.0 [facility] Comment on above: Performed By: #### C BC ####[facility] [address] [place], [place] [address]Dr. Manuel Reed Hemoglobin (Bld) [Mass/Vol] 13.8 g/dL Normal 12.0-16.0 [facility] Comment on above: Performed By: #### C BC ####[facility] [address] [place], [place] [address]Dr. Manuel Reed IG # 0.02 10e3/ul Normal 0.00-0.03 [facility] Comment on above: Performed By: #### C BC ####[facility] [address] [place], [place] [address]Dr. Manuel Reed IG % 0.3 % Normal 0.0-0.5 [facility] Comment on above: Performed By: #### C BC ####[facility] [address] [place], [place] [address]Dr. Manuel Reed LYMPH # 2.5 103/ul Normal 1.2-3.8 [facility] Comment on above: Performed By: #### C BC ####[facility] [address] [place], [place] [address]Dr. Manuel Reed Lymphocytes/100 WBC (Bld) 38.2 % Normal 20.5-60.0 [facility] Comment on above: Performed By: #### C BC ####[facility] [address] [place] [id number]. Manuel Reed MANUAL DIFF REQ NO Normal [facility] Comment on above: Performed By: #### C BC ####[facility] [address] [place] [id number]. Manuel Reed MCH (RBC) [Entitic mass] 29.9 pg Normal 26.7-34.0 [facility] Comment on above: Performed By: #### C BC ####[facility] [address] [place] [address]Dr. Manuel Reed MCHC (RBC) [Mass/Vol] 32.5 g/dL Normal 29.9-35.2 [facility] Comment on above: Performed By: #### C BC ####[facility] [address] [place], [place] [address]Dr. Manuel Reed MCV (RBC) [Entitic vol] 92.0 fL Normal 81.0-99.0 [facility] Comment on above: Performed By: #### C BC ####[facility] [address] [place], [place] [address]Dr. Manuel Reed MONO # 0.6 103/ul Normal 0.3-0.8 [facility] Comment on above: Performed By: #### C BC ####[facility] [address] [place] [address]Dr. Manuel Reed Monocytes/100 WBC (Bld) 8.9 % Normal 1.7-12.0 [facility] Comment on above: Performed By: #### C BC ####[facility] [address] [place], [place] [address]DrScott Reed NEUT # 3.2 103/ul Normal 1.4-6.5 [facility] Comment on above: Performed By: #### C BC ####[facility] [address] [place], [place] [address]Dr. Manuel Reed Neutrophils/100 WBC (Bld) 49.2 % Normal 43.0-75.0 [facility] Comment on above: Performed By: #### C BC ####[facility] [address] [place] [id number] Reed Platelet mean volume (Bld) [Entitic vol] 10.8 fL Normal 9.5-13.5 [facility] Comment on above: Performed By: #### C BC ####[facility] [address] [place] [address]DrScott Reed PLT 203 103/ul Normal 150-450 [facility] Comment on above: Performed By: #### C BC ####[facility] [address] [place] [address]Dr. Manuel Reed RBC 4.62 106/ul Normal 4.20-5.40 [facility] Comment on above: Performed By: #### C BC ####[facility] [address] [place] [address]Dr. Manuel Reed WBC 6.6 103/ul Normal 4.0-11.0 [facility] Comment on above: Performed By: #### C BC ####[facility] [address] [place] [id number]. Manuel Reed PROF 14(COMP METB)on 022 Albumin [Mass/Vol] 3.5 g/dL Normal 3.4-5.0 [facility] Comment on above: Performed By: #### C NORTH HSTROPN #### [facility] [address] [place] [address] [address] Manuel Reed Albumin/Globulin [Mass ratio] 0.8 {ratio} Normal [facility] Comment on above: Performed By: #### C NORTH HSTROPN #### [facility] [address] [place] [address] [address] Manuel Reed ALP [Catalytic activity/Vol] 81 U/L Normal 46-116 [facility] Comment on above: Performed By: #### C NORTH HSTROPN #### [facility] [address] [place] [address] [address] Manuel Reed ALT [Catalytic activity/Vol] 38 U/L Normal 14-59 [facility] Comment on above: Performed By: #### C MP, HSTROPN #### [facility] [address] [place] [address] [address] Manuel Reed Anion gap [Moles/Vol] 13.0 mmol/L Normal [facility] Comment on above: Performed By: #### C MP, HSTROPN #### [facility] [address] [place] [address] [address] Manuel Reed AST [Catalytic activity/Vol] 25 U/L Normal 15-37 [facility] Comment on above: Performed By: #### C NORTH, HSTROPN #### [facility] [address] [place] [address] Dr. Manuel Reed Bilirubin [Mass/Vol] 0.3 mg/dL Normal 0.2-1.0 [facility] Comment on above: Performed By: #### C NORTH, HSTROPN #### [facility] [address] [place] [address] Dr. Manuel Reed Calcium [Mass/Vol] 9.6 mg/dL Normal 8.5-10.1 [facility] Comment on above: Performed By: #### C NORTH, HSTROPN #### [facility] [address] [place] [address] Dr. Manuel Reed Chloride [Moles/Vol] 101 mmol/L Normal 98-107 [facility] Comment on above: Performed By: #### C MP, HSTROPN #### [facility] [address] [place] [address] Dr. Manuel Reed CO2 [Moles/Vol] 27.1 mmol/L Normal 21.0-32.0 [facility] Comment on above: Performed By: #### C MP, HSTROPN #### [facility] [address] [place] [address] Dr. Manuel Reed Creatinine [Mass/Vol] 0.93 mg/dL Normal 0.55-1.02 [facility] Comment on above: Performed By: #### C MP, HSTROPN #### [facility] [address] [place] [address] [address] Manuel Reed EGFR-AF [place]IZ[place] >60 Normal >=60 [facility] Comment on above: Performed By: #### C NORTH, HSTROPN #### [facility] [address] [place] [address] [address] Manuel Reed EGFR-NON AF CITIZEN OF [place] =60 Normal >=60 [facility] Comment on above: Performed By: #### C NORTH, HSTROPN #### [facility] [address] [place] [address] [address] Manuel Reed Globulin (S) [Mass/Vol] 4.2 g/dL Normal [facility] Comment on above: Performed By: #### C NORTH, HSTROPN #### [facility] [address] [place] [address] Dr. Manuel Reed Glucose [Mass/Vol] 280 mg/dL Critically high 74-106 [facility] Comment on above: Performed By: #### C NORTH, HSTROPN #### [facility] [address] [place] [address] Dr. Manuel Reed Potassium [Moles/Vol] 4.1 mmol/L Normal 3.5-5.1 [facility] Comment on above: Performed By: #### C NORTH, HSTROPN #### [facility] [address] [place] [address] Dr. Manuel Reed Protein [Mass/Vol] 7.7 g/dL Normal 6.4-8.2 [facility] Comment on above: Performed By: #### C NORTH, HSTROPN #### [facility] [address] [place] [address] Dr. Manuel Reed Sodium [Moles/Vol] 137 mmol/L Normal 136-145 [facility] Comment on above: Performed By: #### C NORTH, HSTROPN #### [facility] [address] [place] [address] Dr. Manuel Reed Urea nitrogen [Mass/Vol] 21.0 mg/dL Critically high 7.0-18.0 [facility] Comment on above: Performed By: #### C NORTH, HSTROPN #### [facility] [address] [place] [address] [address] Manuel Reed Urea nitrogen/Creatinine [Mass ratio] 22.6 mg/mg Normal [facility] Comment on above: Performed By: #### C NORTH, HSTROPN #### [facility] [address] [place] [address] [address] Manuel Reed TROPONIN, HIGH SENSITIVITYon 05-29-2022 HSTROP 8.1 pg/mL Normal 4.0-51.3 [facility] Comment on above: Result Comment: CUT- OFF POINTS HAVE BEEN ESTABLISHED BASED ON THE FOURTH UNIVERSAL DEFINITIONS OF MYOCARDIAL INFARCTION. THE UPPER REFERENCE LIMIT (URL) OF TROPONIN, DEFINED THE 99TH PERCENTILE OF cTnI DISTRIBUTION IN A REFERENCE POPULATION, HAS BEEN CONFIRMED THE DECISION THRESHOLD FOR [place] DIAGNOSIS. Performed By: #### C NORTH, HSTROPN #### [facility] [address] [address] [address] Manuel Reed XR RIBS LT PA [...] CHAN Date: 2022-05-29 18:37 Normal [facility] PROF CHEM 8 (BAS METB)on Anion gap [Moles/Vol] 14.1 mmol/L Normal [facility] Comment on above: Performed By: #### B MP #### [facility] [address] [address] [address] Manuel Reed Calcium [Mass/Vol] 8.9 mg/dL Normal 8.5-10.1 [facility] Comment on above: Performed By: #### B MP #### [facility] [address] [place] [address] [address] Manuel Reed Chloride [Moles/Vol] 100 mmol/L Normal 98-107 [facility] Comment on above: Performed By: #### B MP #### [facility] [address] [place] [address] [address] Manuel Reed CO2 [Moles/Vol] 26.4 mmol/L Normal 21.0-32.0 [facility] Comment on above: Performed By: #### B MP #### [facility] [address] [place] [address] [address] Manuel Reed Creatinine [Mass/Vol] 0.94 mg/dL Normal 0.55-1.02 [facility] Comment on above: Performed By: #### B MP #### [facility] [address] [place] [address] Dr. Manuel Reed EGFR-AF CITIZEN OF [place] >60 Normal >=60 [facility] Comment on above: Performed By: #### B MP #### [facility] [address] [place] [address] [address] Manuel Reed EGFR-NON AF CITIZEN OF [place] 60 mL/min/1.73m2 Normal >=60 [facility] Comment on above: Performed By: #### B MP #### [facility] [address] [place] [address] [address] Manuel Reed Glucose [Mass/Vol] 336 mg/dL Critically high 74-106 [facility] Comment on above: Performed By: #### B MP #### [facility] [address] [place] [address] [address] Manuel Reed Potassium [Moles/Vol] 4.5 mmol/L Normal 3.5-5.1 [facility] Comment on above: Performed By: #### B MP #### [facility] [address] [place] [address] Dr. Manuel Reed Sodium [Moles/Vol] 136 mmol/L Normal 136-145 [facility] Comment on above: Performed By: #### B MP #### [facility] [address] [place] [address] [address] Manuel Reed Urea nitrogen [Mass/Vol] 12.0 mg/dL Normal 7.0-18.0 [facility] Comment on above: Performed By: #### B MP #### [facility] [address] [place], [place] [address] Dr. Manuel Reed Urea nitrogen/Creatinine [Mass ratio] 12.8 mg/mg Normal [facility] Comment on above: Performed By: #### B MP #### [facility] [address] [place], [place] [address] Dr. Manuel Reed Glucose Glucometer (BldC) [M ass/Vol]Ordered By: Jac Hemphill on 12-20-2021 Glucose [Mass/Vol] 181 mg/dL [facility] Comment on above: Random Glucose Refer ence Range is dependent on time and content of last meal. Glucose of more than 200 mg/dL in a nonstressed, ambulatory subject supports the diagnosis of Diabetes Mellitus. No Panel InformationOrdered By: Jac Hemphill on 12-20-2021 Bedside Glucose Comment Glu2: cleaned meter [facility] COVID-19 Positive/NegativeOr dered By: Jac Hemphill on 12-16-2021 SARS-CoV-2 (COVID-19) N gene DUYEN+probe Ql (Resp) Negative Negative [facility] Comment on above: Testing for SARS-CoV -2 by RT-PCRThis test was developed and its performance characteristics determined by [employer] ([employer] and validated at the [facility]. This test has not been FDA [...] and its performance characteristics determined by [employer] and validated at the [facility]. This test has not been FDA [...] 12-06-2021 Basophils (Bld) [#/Vol] 0.0 10*3/uL 0.0-0.2 [facility] Basophils/100 WBC Auto (Bld) Ordered By: Jac Hemphill on 12-06-2021 Basophils/100 WBC (Bld) 0.4 % [facility] Blood hemoglobin measurement (mass/volume)Ordered By: Jac Hemphill on 12-06-2021 Hemoglobin (Bld) [Mass/Vol] 14.9 g/dL 11.8-15.4 [facility] Blood leukocytes automated c ount (number/volume)Ordered By: Jac Hemphill on 12-06-2021 WBC (Bld) [#/Vol] 9.1 10*3/uL 4.5-11.0 [facility] Creatinine and Glomerular fi ltration rate.predicted panel (S/P/Bld)Ordered By: Jac Hemphill on 12-06-2021 Creatinine [Mass/Vol] 0.75 mg/dL 0.44-1.03 [facility] Eosinophils Auto (Bld) [#/Vo l]Ordered By: Jac Hemphill on 12-06-2021 Eosinophils (Bld) [#/Vol] 0.2 10*3/uL 0.0-0.45 [facility] Eosinophils/100 WBC Auto (Bl d)Ordered By: Jac Hemphill on 12-06-2021 Eosinophils/100 WBC (Bld) 1.8 % [facility] Erythrocyte distribution wid th Auto (RBC) [Ratio]Ordered By: Jac Hemphill on 12-06-2021 Erythrocyte distribution width (RBC) [Ratio] 13.7 % 11.9-15.3 [facility] Estimated glomerular filtrat ion rate (GFR) non- AmericanOrdered By: Jac Hemphill on 12-06-2021 GFR/1.73 sq M.predicted among non-blacks MDRD (S/P/Bld) [Vol rate/Area] > 60 mL/Min [facility] Hematocrit Auto (Bld) [Volum e fraction]Ordered By: Jac Hemphill on 12-06-2021 Hematocrit (Bld) [Volume fraction] 44.3 % 34.0-46.4 [facility] Laboratory - Hematology and Cell countsOrdered By: Jac Hemphill on 12-06-2021 Nucleated RBC/100 WBC (Bld) [Ratio] 0.1 % 0-0.5 [facility] Lymphocytes Auto (Bld) [#/Vo l]Ordered By: Jac Hemphill on 12-06-2021 Lymphocytes (Bld) [#/Vol] 2.8 10*3/uL 1.00-4.8 [facility] Lymphocytes/100 WBC Auto (Bl d)Ordered By: Jac Hemphill on 12-06-2021 Lymphocytes/100 WBC (Bld) 30.8 % [facility] MCH Auto (RBC) [Entitic mass ]Ordered By: Jac Hemphill on 12-06-2021 MCH (RBC) [Entitic mass] 30.0 pg 24.7-34.3 [facility] MCHC Auto (RBC) [Mass/Vol]Or dered By: Jac Hemphill on 12-06-2021 MCHC (RBC) [Mass/Vol] 33.8 g/dL 32.0-35.0 [facility] MCV Auto (RBC) [Entitic vol] Ordered By: Jac Hemphill on 12-06-2021 MCV (RBC) [Entitic vol] 88.9 fL 80-100 [facility] Monocytes Auto (Bld) [#/Vol] Ordered By: Jac Hemphill on 12-06-2021 Monocytes (Bld) [#/Vol] 0.8 10*3/uL 0.0-0.8 [facility] Monocytes/100 WBC Auto (Bld) Ordered By: Jac Hemphill on 12-06-2021 Monocytes/100 WBC (Bld) 8.3 % [facility] Neutrophils Auto (Bld) [#/Vo l]Ordered By: Jac Hemphill on 12-06-2021 Neutrophils (Bld) [#/Vol] 5.4 10*3/uL 1.8-7.7 [facility] Neutrophils/100 WBC Auto (Bl d)Ordered By: Jac Hemphill on 12-06-2021 Neutrophils/100 WBC (Bld) 58.7 % [facility] No Panel InformationOrdered By: Jac Hemphill on 12-06-2021 Estimated GFR () > 60 mL/Min [facility] Comment on above: GFR estimated refere nce range: According to KDOQI guidelines, <60 ml/min/1.73m2 is sufficient to diagnose a patient with chronic kidney disease. Pharmacy Creatinine Clearance (Chem N/A [facility] Platelet mean volume Auto (B ld) [Entitic vol]Ordered By: Jac Hemphill on 12-06-2021 Platelet mean volume (Bld) [Entitic vol] 8.7 fL 6.3-10.7 [facility] Platelets Auto (Bld) [#/Vol] Ordered By: Jac Hemphill on 12-06-2021 Platelets (Bld) [#/Vol] 284 10*3/uL 150-450 [facility] RBC Auto (Bld) [#/Vol]Ordere d By: Jac Hemphill on 12-06-2021 RBC (Bld) [#/Vol] 4.98 10*6/uL 3.60-5.[address] [facility] Serum or plasma calcium alis urement (mass/volume)Ordered By: Jac Hemphill on 12-06-2021 Calcium [Mass/Vol] 9.5 mg/dL 8.2-10.2 [facility] Serum or plasma chloride eduardo surement (moles/volume)Ordered By: Jac Hemphill on 12-06-2021 Chloride [Moles/Vol] 96 mmol/L 95-114 [facility] Serum or plasma glucose alis urement (mass/volume)Ordered By: Jac Hemphill on 12-06-2021 Glucose [Mass/Vol] 285 mg/dL 70-100 [facility] Comment on above: ADA recommended refe [...] Potassium [Moles/Vol] 4.6 mmol/L 3.5-5.1 [facility] Serum or plasma sodium measu rement (moles/volume)Ordered By: Jac Hemphill on 12-06-2021 Sodium [Moles/Vol] 135 mmol/L 136-146 [facility] Serum or plasma total carbon dioxide measurement (moles/volume)Ordered By: Jac Hemphill on 12-06-2021 CO2 [Moles/Vol] 24.9 mmol/L 22.0-30.0 [facility] Serum or plasma urea nitroge n measurement (mass/volume)Ordered By: Jac Hemphill on 12-06-2021 Urea nitrogen [Mass/Vol] 13 mg/dL 9- [facility] BASIC METABOLIC PANELon 11-01 Calcium mass conc 8.6 mg/dL Normal 8.6-10.3 [facility] Comment on above: Order Comment: No: D o not add to previous draw Performed By: #### [id number] #### [facility] [address] [place] [address], [place] Chloride molar conc 107 mmol/L Normal 98-107 [facility] Comment on above: Order Comment: No: D o not add to previous draw Performed By: #### 5 [id number] #### [facility] [address] [place] [address], [place] CO2 molar conc 26 mmol/L Normal 21-31 [facility] Comment on above: Order Comment: No: D o not add to previous draw Performed By: #### 5 [id number] #### [facility] [address] [place] [address], [place] Creatinine mass conc 0.95 mg/dL Normal 0.60-1.20 [facility] Comment on above: Order Comment: No: D o not add to previous draw Performed By: #### 5 [id number] #### [facility] [address] [place] [address], [place] GFR/1.73 sq M predicted among blacks MDRD vol rate/area (S/P/Bld) mL/min/{1.73_m2} Normal >60 [facility] Comment on above: Order Comment: No: D o not add to previous draw Performed By: #### 5 [id number] #### [facility] [address] [place] [address], [place] GFR/1.73 sq M predicted among non-blacks MDRD vol rate/area (S/P/Bld) 59 ml/min/1.73sq m Abnormal >60 [facility] Comment on above: Order Comment: No: D o not add to previous draw Performed By: #### 5 [id number] #### [facility] [address] [place] [address], [facility] Glucose mass conc 177 mg/dL High 70-100 [facility] Comment on above: Order Comment: No: D o not add to previous draw Performed By: #### 5 [id number] #### [facility] [address] [facility]. [address] Potassium molar conc 3.8 mmol/L Normal 3.5-5.1 [facility] Comment on above: Order Comment: No: D o not add to previous draw Performed By: #### 5 [id number] #### [facility] [address] [facility]. [address] Sodium molar conc 139 mmol/L Normal 136-145 [facility] Comment on above: Order Comment: No: D o not add to previous draw Performed By: #### 5 [id number] #### [facility] [address] [facility]. [address] Urea nitrogen mass conc 13 mg/dL Normal 7-25 [facility] Comment on above: Order Comment: No: D o not add to previous draw Performed By: #### 5 [id number] #### [facility] [address] [facility]. [address] CBC W/DIFFon 11-18-2018 ABS BASOPHILS 0.0 10*3/uL Normal 0.0-0.2 [facility] Comment on above: Order Comment: No: D o not add to previous draw Performed By: #### 5 [id number] #### [facility] [address] [facility]. [address] ABS IMM GRANS 0.1 10*3/uL Normal 0.0-0.2 [facility] Comment on above: Order Comment: No: D o not add to previous draw Performed By: #### 5 [id number] #### [facility] [address] [place] [address], [facility] ABS NEUTROPHILS 3.8 10*3/uL Normal 1.6-7.6 [facility] Comment on above: Order Comment: No: D o not add to previous draw Performed By: #### 5 [id number] #### [facility] [address] [place] [id number], [facility] Basophils #/vol (Bld) 0.3 % Normal 0.0-1.0 [facility] Comment on above: Order Comment: No: D o not add to previous draw Performed By: #### 5 [id number] #### [facility] [address] [place] [address], [facility] Eosinophils #/vol (Bld) 0.3 10*3/uL Normal 0.0-0.5 [facility] Comment on above: Order Comment: No: D o not add to previous draw Performed By: #### 5 [id number] #### [facility] [address] [place] [address], [facility] Eosinophils/100 WBC (Bld) 4.0 % Normal 0.0-6.0 [facility] Comment on above: Order Comment: No: D o not add to previous draw Performed By: #### 5 [id number] #### [facility] [address] [place] [address], [facility] Erythrocyte distribution width Ratio (RBC) 14.3 % Normal 11.5-15.0 [facility] Comment on above: Order Comment: No: D o not add to previous draw Performed By: #### 5 [id number] #### [facility] [address] [place] [address], [facility] Hematocrit Volume Fraction (Bld) 24.7 % Low 36.0-45.0 [facility] Comment on above: Order Comment: No: D o not add to previous draw Performed By: #### 5 [id number] #### [facility] [address] [place] [address], [facility] Hemoglobin mass conc (Bld) 7.9 g/dL Low 12.0-15.0 [facility] Comment on above: Order Comment: No: D o not add to previous draw Performed By: #### 5 [id number] #### [facility] [address] [place] [address], [facility] IMMATURE GRANS 0.8 % Normal 0.0-1.0 [facility] Comment on above: Order Comment: No: D o not add to previous draw Performed By: #### 5 [id number] #### [facility] [address] [place] [address], [facility] Lymphocytes #/vol (Bld) 2.4 10*3/uL Normal 1.2-4.0 [facility] Comment on above: Order Comment: No: D o not add to previous draw Performed By: #### 5 [id number] #### [facility] [address] [facility] [place] [address], [facility] Lymphocytes/100 WBC (Bld) 33.7 % Normal 20.0-45.0 [facility] Comment on above: Order Comment: No: D o not add to previous draw Performed By: #### 5 [id number] #### [facility] [address] [facility] [place] [address], [facility] MCH Entitic mass (RBC) 30.5 pg Normal 27.0-33.0 [facility] Comment on above: Order Comment: No: D o not add to previous draw Performed By: #### 5 [id number] #### [facility] [address] [facility] [place] [address], [facility] MCHC mass conc (RBC) 32.0 g/dL Normal 32.0-35.0 [facility] Comment on above: Order Comment: No: D o not add to previous draw Performed By: #### 5 [id number] #### [facility] [address] [facility] [address], [facility] MCV Entitic volume (RBC) 95.4 fL Normal 82.0-98.0 [facility] Comment on above: Order Comment: No: D o not add to previous draw Performed By: #### 5 [id number] #### [facility] [address] [place] [address], [facility] Monocytes #/vol (Bld) 0.6 10*3/uL Normal 0.1-1.0 [facility] Comment on above: Order Comment: No: D o not add to previous draw Performed By: #### 5 [id number] #### [facility] [address] [place] [address], [facility] MONOS 8.7 % Normal 5.0-12.0 [facility] Comment on above: Order Comment: No: D o not add to previous draw Performed By: #### 5 [id number] #### [facility] [address] Neutrophils/100 WBC (Bld) 52.5 % Normal 40.0-72.0 [facility] Comment on above: Order Comment: No: D o not add to previous draw Performed By: #### 5 [id number] #### [facility] [address] [place] [address], [facility] Nucleated RBC/100 WBC Ratio (Bld) 0 % Normal 0-0 [facility] Comment on above: Order Comment: No: D o not add to previous draw Performed By: #### 5 [id number] #### [facility] [address] [place] [address], [facility] PLAT CNT 312 10*3/uL Normal 150-400 [facility] Comment on above: Order Comment: No: D o not add to previous draw Performed By: #### 5 [id number] #### [facility] [address] [place] [address], [facility] RBC #/vol (Bld) 2.59 10*6/uL Low 3.80-5.00 [facility] Comment on above: Order Comment: No: D o not add to previous draw Performed By: #### 5 [id number] #### [facility] [address] [place] [address], [facility] WBC #/vol (Bld) 7.23 10*3/uL Normal 4.00-10.60 [facility] Comment on above: Order Comment: No: D o not add to previous draw Performed By: #### 5 [id number] #### [facility] [address] [place] [address], [facility] POC GLUCOSE LABon 11-18-2018 Glucose mass conc 200 mg/dL High 70-100 [facility] Comment on above: Performed By: #### 5 [id number] #### [facility] [address] [place] [address], [facility] Glucose mass conc 172 mg/dL High 70-100 [facility] Comment on above: Performed By: #### 5 [id number] #### [facility] [address] [facility] [place] [address], [facility] BASIC METABOLIC PANELon 11-01 Calcium mass conc 8.2 mg/dL Low 8.6-10.3 [facility] Comment on above: Order Comment: No: D o not add to previous draw Performed By: #### 5 [id number] #### [facility] [address] [place] [address], [facility] Chloride molar conc 108 mmol/L High 98-107 [facility] Comment on above: Order Comment: No: D o not add to previous draw Performed By: #### 5 [id number] #### [facility] [address] [place] [address], [facility] CO2 molar conc 24 mmol/L Normal 21-31 [facility] Comment on above: Order Comment: No: D o not add to previous draw Performed By: #### 5 [id number] #### [facility] [address] [place] [address], [facility] Creatinine mass conc 0.93 mg/dL Normal 0.60-1.20 [facility] Comment on above: Order Comment: No: D o not add to previous draw Performed By: #### 5 [id number] #### [facility] [address] [place] [address], [place] GFR/1.73 sq M predicted among blacks MDRD vol rate/area (S/P/Bld) mL/min/{1.73_m2} Normal >60 [facility] Comment on above: Order Comment: No: D o not add to previous draw Performed By: #### 5 [id number] #### [facility] [address] [place] [address], [facility] GFR/1.73 sq M predicted among non-blacks MDRD vol rate/area (S/P/Bld) mL/min/{1.73_m2} Normal >60 [facility] Comment on above: Order Comment: No: D o not add to previous draw Performed By: #### 5 [id number] #### [facility] [address] [place] [address], [place] Glucose mass conc 164 mg/dL High 70-100 [facility] Comment on above: Order Comment: No: D o not add to previous draw Performed By: #### 5 [id number] #### [facility] [address] [place] [address], [place] Potassium molar conc 4.0 mmol/L Normal 3.5-5.1 [facility] Comment on above: Order Comment: No: D o not add to previous draw Performed By: #### 5 [id number] #### [facility] [address] [place] [address], [place] Sodium molar conc 139 mmol/L Normal 136-145 [facility] Comment on above: Order Comment: No: D o not add to previous draw Performed By: #### 5 [id number] #### [facility] [address] [place] [address], [place] Urea nitrogen mass conc 11 mg/dL Normal 7-25 [facility] Comment on above: Order Comment: No: D o not add to previous draw Performed By: #### 5 [id number] #### [facility] [address] [facility] [place] [address], [facility] CBC W/DIFFon 11-17-2018 ABS BASOPHILS 0.0 10*3/uL Normal 0.0-0.2 [facility] Comment on above: Order Comment: No: D o not add to previous draw Performed By: #### 5 [id number] #### [facility] [address] [facility]. [address] ABS IMM GRANS 0.0 10*3/uL Normal 0.0-0.2 [facility] Comment on above: Order Comment: No: D o not add to previous draw Performed By: #### 5 [id number] #### [facility] [address] [facility]. [address] ABS NEUTROPHILS 3.1 10*3/uL Normal 1.6-7.6 [facility] Comment on above: Order Comment: No: D o not add to previous draw Performed By: #### 5 [id number] #### [facility] [address] [facility] [place] [address], [facility] Basophils #/vol (Bld) 0.4 % Normal 0.0-1.0 [facility] Comment on above: Order Comment: No: D o not add to previous draw Performed By: #### 5 [id number] #### [facility] [address] [facility] [place] [address], [facility] Eosinophils #/vol (Bld) 0.2 10*3/uL Normal 0.0-0.5 [facility] Comment on above: Order Comment: No: D o not add to previous draw Performed By: #### 5 [id number] #### [facility] [address] [facility] [place] [address], [facility] Eosinophils/100 WBC (Bld) 3.6 % Normal 0.0-6.0 [facility] Comment on above: Order Comment: No: D o not add to previous draw Performed By: #### 5 [id number] #### [facility] [address] [facility]. [address] Erythrocyte distribution width Ratio (RBC) 14.3 % Normal 11.5-15.0 [facility] Comment on above: Order Comment: No: D o not add to previous draw Performed By: #### 5 [id number] #### [facility] [address] Hematocrit Volume Fraction (Bld) 24.7 % Low 36.0-45.0 [facility] Comment on above: Order Comment: No: D o not add to previous draw Performed By: #### 5 [id number] #### [facility] [address] Hemoglobin mass conc (Bld) 7.8 g/dL Low 12.0-15.0 [facility] Comment on above: Order Comment: No: D o not add to previous draw Performed By: #### 5 [id number] #### [facility] [address] [facility]. [address] IMMATURE GRANS 0.4 % Normal 0.0-1.0 [facility] Comment on above: Order Comment: No: D o not add to previous draw Performed By: #### 5 [id number] #### [facility] [address] Lymphocytes #/vol (Bld) 2.8 10*3/uL Normal 1.2-4.0 [facility] Comment on above: Order Comment: No: D o not add to previous draw Performed By: #### 5 [id number] #### [facility] [address] Lymphocytes/100 WBC (Bld) 41.5 % Normal 20.0-45.0 [facility] Comment on above: Order Comment: No: D o not add to previous draw Performed By: #### 5 [id number] #### [facility] [address] [place] [address], [facility] MCH Entitic mass (RBC) 30.6 pg Normal 27.0-33.0 [facility] Comment on above: Order Comment: No: D o not add to previous draw Performed By: #### 5 [id number] #### [facility] [address] [facility] [address] MCHC mass conc (RBC) 31.6 g/dL Low 32.0-35.0 [facility] Comment on above: Order Comment: No: D o not add to previous draw Performed By: #### 5 [id number] #### [facility] [address] [facility] [address] MCV Entitic volume (RBC) 96.9 fL Normal 82.0-98.0 [facility] Comment on above: Order Comment: No: D o not add to previous draw Performed By: #### 5 [id number] #### [facility] [address] [place] [address], [facility] Monocytes #/vol (Bld) 0.6 10*3/uL Normal 0.1-1.0 [facility] Comment on above: Order Comment: No: D o not add to previous draw Performed By: #### 5 [id number] #### [facility] [address] MONOS 8.2 % Normal 5.0-12.0 [facility] Comment on above: Order Comment: No: D o not add to previous draw Performed By: #### 5 [id number] #### [facility] [address] [facility] Neutrophils/100 WBC (Bld) 45.9 % Normal 40.0-72.0 [facility] Comment on above: Order Comment: No: D o not add to previous draw Performed By: #### 5 [id number] #### [facility] [address] [facility]. [address] Nucleated RBC/100 WBC Ratio (Bld) 0 % Normal 0-0 [facility] Comment on above: Order Comment: No: D o not add to previous draw Performed By: #### 5 [id number] #### [facility] [address] [facility] [place] [address], [facility] PLAT CNT 311 10*3/uL Normal 150-400 [facility] Comment on above: Order Comment: No: D o not add to previous draw Performed By: #### 5 [id number] #### [facility] [address] [facility] [place] [address], [facility] RBC #/vol (Bld) 2.55 10*6/uL Low 3.80-5.00 [facility] Comment on above: Order Comment: No: D o not add to previous draw Performed By: #### 5 [id number] #### [facility] [address] [facility] [place] [address], [facility] WBC #/vol (Bld) 6.74 10*3/uL Normal 4.00-10.60 [facility] Comment on above: Order Comment: No: D o not add to previous draw Performed By: #### 5 [id number] #### [address] CHEST AND LATERALon 11-17-19 19 CHEST AND LATERAL [facility] Department of Radiology [address] [place] [address] [id number] Patient Name: KYLE POWELL : 1955 Sex: F Age: Race: White Pt. Location: [address] [place] [address] Patient Status: I Ordered Date: 11/17/2018 9:55:00 [...] change. Electronically signed by:Nathan Guan. Transcribed by: [email or web address], User Resident: Electronically Signed by: NATHAN GUAN @ 11/18/2018 07:34 AM Normal [facility] Comment on above: Order Comment: No: D o not add to previous draw POC GLUCOSE LABon 11-17-2018 Glucose mass conc 189 mg/dL High 70-100 [facility] Comment on above: Performed By: #### 5 [id number] #### [facility] [address] [place] [address], [facility] Glucose mass conc 140 mg/dL High 70-100 [facility] Comment on above: Performed By: #### 5 [id number] #### [facility] [address] [place] [address], [place] Glucose mass conc 175 mg/dL High 70-100 [facility] Comment on above: Performed By: #### 5 [id number] #### [facility] [address] [place] [address], [place] Glucose mass conc 183 mg/dL High 70-100 [facility] Comment on above: Performed By: #### 5 [id number] #### [facility] [address] [place] [address], [facility] BASIC METABOLIC PANELon 11-01 Calcium mass conc 8.2 mg/dL Low 8.6-10.3 [facility] Comment on above: Order Comment: No: D o not add to previous draw Performed By: #### 5 [id number] #### [facility] [address] [place] [address], [place] Chloride molar conc 106 mmol/L Normal 98-107 [facility] Comment on above: Order Comment: No: D o not add to previous draw Performed By: #### 5 [id number] #### [facility] [address] [place] [address], [place] CO2 molar conc 26 mmol/L Normal 21-31 [facility] Comment on above: Order Comment: No: D o not add to previous draw Performed By: #### [id number] #### [facility] [address] [place] [address], [place] Creatinine mass conc 1.03 mg/dL Normal 0.60-1.20 [facility] Comment on above: Order Comment: No: D o not add to previous draw Performed By: #### 5 [id number] #### [facility] [address] [place] [address], [place] GFR/1.73 sq M predicted among blacks MDRD vol rate/area (S/P/Bld) mL/min/{1.73_m2} Normal >60 [facility] Comment on above: Order Comment: No: D o not add to previous draw Performed By: #### 5 [id number] #### [facility] [address] [place] [address], [place] GFR/1.73 sq M predicted among non-blacks MDRD vol rate/area (S/P/Bld) 54 ml/min/1.73sq m Abnormal >60 [facility] Comment on above: Order Comment: No: D o not add to previous draw Performed By: #### 5 [id number] #### [facility] [address] [place] [address], [place] Glucose mass conc 161 mg/dL High 70-100 [facility] Comment on above: Order Comment: No: D o not add to previous draw Performed By: #### 5 [id number] #### [facility] [address] [place] [address], [place] Potassium molar conc 4.4 mmol/L Normal 3.5-5.1 [facility] Comment on above: Order Comment: No: D o not add to previous draw Performed By: #### 5 [id number] #### [facility] [address] [place] [address], [place] Sodium molar conc 137 mmol/L Normal 136-145 [facility] Comment on above: Order Comment: No: D o not add to previous draw Performed By: #### 5 [id number] #### [facility] [address] [place] [address], [place] Urea nitrogen mass conc 11 mg/dL Normal 7-25 [facility] Comment on above: Order Comment: No: D o not add to previous draw Performed By: #### 5 [id number] #### [facility] [address] [place] [address], [place] Calcium mass conc 8.3 mg/dL Low 8.6-10.3 [facility] Comment on above: Order Comment: No: D o not add to previous draw Performed By: #### 5 [id number] #### [facility] [address] [place] [address], [place] Chloride molar conc 108 mmol/L High 98-107 [facility] Comment on above: Order Comment: No: D o not add to previous draw Performed By: #### 5 [id number] #### [facility] [address] [place] [address], [facility] CO2 molar conc 25 mmol/L Normal 21-31 [facility] Comment on above: Order Comment: No: D o not add to previous draw Performed By: #### 5 [id number] #### [facility] [address] [place] [address], [facility] Creatinine mass conc 0.97 mg/dL Normal 0.60-1.20 [facility] Comment on above: Order Comment: No: D o not add to previous draw Performed By: #### 5 [id number] #### [facility] [address] [place] [address], [facility] GFR/1.73 sq M predicted among non-blacks MDRD vol rate/area (S/P/Bld) 58 ml/min/1.73sq m Abnormal >60 [facility] Comment on above: Order Comment: No: D o not add to previous draw Performed By: #### 5 [id number] #### [facility] [address] [place] [address], [facility] Glucose mass conc 116 mg/dL High 70-100 [facility] Comment on above: Order Comment: No: D o not add to previous draw Performed By: #### 5 [id number] #### [facility] [address] [place] [address], [facility] Potassium molar conc 4.0 mmol/L Normal 3.5-5.1 [facility] Comment on above: Order Comment: No: D o not add to previous draw Performed By: #### 5 [id number] #### [facility] [address] [place] [address], [place] Sodium molar conc 140 mmol/L Normal 136-145 [facility] Comment on above: Order Comment: No: D o not add to previous draw Performed By: #### 5 [id number] #### [facility] [address] [place] [address], [facility] Urea nitrogen mass conc 9 mg/dL Normal 7-25 [facility] Comment on above: Order Comment: No: D o not add to previous draw Performed By: #### 5 [id number] #### [facility] [address] CBC COMPLETE BLOOD COUNTon 0 - Erythrocyte distribution width Ratio (RBC) 14.4 % Normal 11.5-15.0 [facility] Comment on above: Order Comment: No: D o not add to previous draw Performed By: #### 5 [id number] #### [facility] [address] Hematocrit Volume Fraction (Bld) 24.9 % Low 36.0-45.0 [facility] Comment on above: Order Comment: No: D o not add to previous draw Performed By: #### 5 [id number] #### [facility] [address] [place] [address], [facility] Hemoglobin mass conc (Bld) 7.8 g/dL Low 12.0-15.0 [facility] Comment on above: Order Comment: No: D o not add to previous draw Performed By: #### 5 [id number] #### [facility] [address] [place] [address], [facility] MCH Entitic mass (RBC) 30.8 pg Normal 27.0-33.0 [facility] Comment on above: Order Comment: No: D o not add to previous draw Performed By: #### 5 [id number] #### [facility] [address] [place] [address], [facility] MCHC mass conc (RBC) 31.3 g/dL Low 32.0-35.0 [facility] Comment on above: Order Comment: No: D o not add to previous draw Performed By: #### 5 [id number] #### [facility] [address] [place] [address], [facility] MCV Entitic volume (RBC) 98.4 fL High 82.0-98.0 [facility] Comment on above: Order Comment: No: D o not add to previous draw Performed By: #### 5 [id number] #### [facility] [address] [place] [address], [facility] Nucleated RBC/100 WBC Ratio (Bld) 0 % Normal 0-0 [facility] Comment on above: Order Comment: No: D o not add to previous draw Performed By: #### 5 [id number] #### [facility] [address] [place] [address], [facility] PLAT CNT 302 10*3/uL Normal 150-400 [facility] Comment on above: Order Comment: No: D o not add to previous draw Performed By: #### 5 [id number] #### [facility] [address] [place] [address], [facility] RBC #/vol (Bld) 2.53 10*6/uL Low 3.80-5.00 [facility] Comment on above: Order Comment: No: D o not add to previous draw Performed By: #### 5 [id number] #### [facility] [address] [place] [address], [facility] WBC #/vol (Bld) 7.31 10*3/uL Normal 4.00-10.60 [facility] Comment on above: Order Comment: No: D o not add to previous draw Performed By: #### 5 [id number] #### [facility] [address] [place] [address], [facility] Erythrocyte distribution width Ratio (RBC) 14.6 % Normal 11.5-15.0 [facility] Comment on above: Order Comment: No: D o not add to previous draw Performed By: #### 5 [id number] #### [facility] [address] Hemoglobin mass conc (Bld) 7.6 g/dL Low 12.0-15.0 [facility] Comment on above: Order Comment: No: D o not add to previous draw Performed By: #### 5 [id number] #### [facility] [address] [place] [address], [facility] MCH Entitic mass (RBC) 30.2 pg Normal 27.0-33.0 [facility] Comment on above: Order Comment: No: D o not add to previous draw Performed By: #### 5 [id number] #### [facility] [address] MCHC mass conc (RBC) 30.5 g/dL Low 32.0-35.0 [facility] Comment on above: Order Comment: No: D o not add to previous draw Performed By: #### 5 [id number] #### [facility] [address] MCV Entitic volume (RBC) 98.8 fL High 82.0-98.0 [facility] Comment on above: Order Comment: No: D o not add to previous draw Performed By: #### 5 [id number] #### [facility] [address] [address], [facility] PLAT CNT 317 10*3/uL Normal 150-400 [facility] Comment on above: Order Comment: No: D o not add to previous draw Performed By: #### 5 [id number] #### [facility] [address] [place] [address], [facility] RBC #/vol (Bld) 2.52 10*6/uL Low 3.80-5.00 [facility] Comment on above: Order Comment: No: D o not add to previous draw Performed By: #### 5 [id number] #### [facility] [address] [place] [address], [facility] WBC #/vol (Bld) 7.29 10*3/uL Normal 4.00-10.60 [facility] Comment on above: Order Comment: No: D o not add to previous draw Performed By: #### 5 [id number] #### [facility] [address] [place] [address], [facility] HEMATOCRITon 11-16-2018 Hematocrit Volume Fraction (Bld) 25.4 % Low 36.0-45.0 [facility] Comment on above: Order Comment: No: D o not add to previous draw Performed By: #### 5 [id number] #### [facility] [address] [place] [address], [facility] HEMOGLOBINon 11-16-2018 Hemoglobin mass conc (Bld) 7.9 g/dL Low 12.0-15.0 [facility] Comment on above: Order Comment: No: D o not add to previous draw Performed By: #### 5 [id number] #### [facility] [address] [place] [address], [facility] POC GLUCOSE LABon 11-16-2018 Glucose mass conc 177 mg/dL High 70-100 [facility] Comment on above: Performed By: #### 5 [id number] #### [facility] [address] [address], [facility] Glucose mass conc 155 mg/dL High 70-100 [facility] Comment on above: Performed By: #### 5 [id number] #### [facility] [address] [place] [address], [facility] Glucose mass conc 170 mg/dL High 70-100 [facility] Comment on above: Performed By: #### 5 [id number] #### [facility] [address] [place] [address], [facility] Glucose mass conc 140 mg/dL High 70-100 [facility] Comment on above: Performed By: #### 5 [id number] #### [facility] [address] [place] [address], [facility] BASIC METABOLIC PANELon 11-01 Calcium mass conc 8.4 mg/dL Low 8.6-10.3 [facility] Comment on above: Order Comment: Unkno wn Performed By: #### [id number] #### [facility] [address] [place] [address], [place] Chloride molar conc 110 mmol/L High 98-107 [facility] Comment on above: Order Comment: Unkno wn Performed By: #### [id number] #### [facility] [address] [place] [address], [place] CO2 molar conc 22 mmol/L Normal 21-31 [facility] Comment on above: Order Comment: Unkno wn Performed By: #### [id number] #### [facility] [address] [place] [address], [place] Creatinine mass conc 1.02 mg/dL Normal 0.60-1.20 [facility] Comment on above: Order Comment: Unkno wn Performed By: #### [id number] #### [facility] [address] [place] [address], [place] GFR/1.73 sq M predicted among blacks MDRD vol rate/area (S/P/Bld) mL/min/{1.73_m2} Normal >60 [facility] Comment on above: Order Comment: Unkno wn Performed By: #### [id number] #### [facility] [address] [place] [address], [place] GFR/1.73 sq M predicted among non-blacks MDRD vol rate/area (S/P/Bld) 55 ml/min/1.73sq m Abnormal >60 [facility] Comment on above: Order Comment: Unkno wn Performed By: #### [id number] #### [facility] [address] [place] [address], [place] Glucose mass conc 126 mg/dL High 70-100 [facility] Comment on above: Order Comment: Unkno wn Performed By: #### 8 [id number] #### [facility] [address] Potassium molar conc 3.9 mmol/L Normal 3.5-5.1 [facility] Comment on above: Order Comment: Unkno wn Performed By: #### [id number] #### [facility] [address] [facility] [address] [address] Sodium molar conc 141 mmol/L Normal 136-145 [facility] Comment on above: Order Comment: Unkno wn Performed By: #### [id number] #### [facility] [address] [facility]. [address] Urea nitrogen mass conc 13 mg/dL Normal 7-25 [facility] Comment on above: Order Comment: Unkno wn Performed By: #### [id number] #### [facility] [address] [facility]. [address] CBC W/DIFFon 11-15-2018 ABS BASOPHILS 0.0 10*3/uL Normal 0.0-0.2 [facility] Comment on above: Order Comment: Unkno wn Performed By: #### [id number] #### [facility] [address] [facility]. [address] ABS IMM GRANS 0.1 10*3/uL Normal 0.0-0.2 [facility] Comment on above: Order Comment: Unkno wn Performed By: #### [id number] #### [facility] [address] [facility]. [address] ABS NEUTROPHILS 3.4 10*3/uL Normal 1.6-7.6 [facility] Comment on above: Order Comment: Unkno wn Performed By: #### [id number] #### [facility] [address] [facility]. [address] Basophils #/vol (Bld) 0.4 % Normal 0.0-1.0 [facility] Comment on above: Order Comment: Unkno wn Performed By: #### [id number] #### [facility] [address] [place] [address], [facility] Eosinophils #/vol (Bld) 0.2 10*3/uL Normal 0.0-0.5 [facility] Comment on above: Order Comment: Unkno wn Performed By: #### [id number] #### [facility] [address] [place] [address], [facility] Eosinophils/100 WBC (Bld) 3.4 % Normal 0.0-6.0 [facility] Comment on above: Order Comment: Unkno wn Performed By: #### [id number] #### [facility] [address] [place] [address], [facility] Erythrocyte distribution width Ratio (RBC) 14.6 % Normal 11.5-15.0 [facility] Comment on above: Order Comment: Unkno wn Performed By: #### [id number] #### [facility] [address] [place] [address], [facility] Hematocrit Volume Fraction (Bld) 27.5 % Low 36.0-45.0 [facility] Comment on above: Order Comment: Unkno wn Performed By: #### [id number] #### [facility] [address] [place] [address], [facility] Hemoglobin mass conc (Bld) 8.5 g/dL Low 12.0-15.0 [facility] Comment on above: Order Comment: Unkno wn Performed By: #### [id number] #### [facility] [address] [place] [address], [facility] IMMATURE GRANS 0.8 % Normal 0.0-1.0 [facility] Comment on above: Order Comment: Unkno wn Performed By: #### [id number] #### [facility] [address] [place] [place] [address] Lymphocytes #/vol (Bld) 2.8 10*3/uL Normal 1.2-4.0 [facility] Comment on above: Order Comment: Unkno wn Performed By: #### [id number] #### [facility] [address] Lymphocytes/100 WBC (Bld) 39.6 % Normal 20.0-45.0 [facility] Comment on above: Order Comment: Unkno wn Performed By: #### [id number] #### [facility] [address] [facility]. [address] MCH Entitic mass (RBC) 30.8 pg Normal 27.0-33.0 [facility] Comment on above: Order Comment: Unkno wn Performed By: #### [id number] #### [facility] [address] [facility] [address] MCHC mass conc (RBC) 30.9 g/dL Low 32.0-35.0 [facility] Comment on above: Order Comment: Unkno wn Performed By: #### [id number] #### [facility] [address] [facility]. [address] MCV Entitic volume (RBC) 99.6 fL High 82.0-98.0 [facility] Comment on above: Order Comment: Unkno wn Performed By: #### [id number] #### [facility] [address] [facility]. [address] Monocytes #/vol (Bld) 0.5 10*3/uL Normal 0.1-1.0 [facility] Comment on above: Order Comment: Unkno wn Performed By: #### [id number] #### [facility] [address] [facility]. [address] MONOS 7.6 % Normal 5.0-12.0 [facility] Comment on above: Order Comment: Unkno wn Performed By: #### [id number] #### [facility] [address] [place] [address], [facility] Neutrophils/100 WBC (Bld) 48.2 % Normal 40.0-72.0 [facility] Comment on above: Order Comment: Unkno wn Performed By: #### [id number] #### [facility] [address] [facility] [place] [place] [address], [facility] Nucleated RBC/100 WBC Ratio (Bld) 0 % Normal 0-0 [facility] Comment on above: Order Comment: Unkno wn Performed By: #### [id number] #### [facility] [address] [facility] [place] [address], [facility] PLAT CNT 329 10*3/uL Normal 150-400 [facility] Comment on above: Order Comment: Unkno wn Performed By: #### [id number] #### [facility] [address] [facility] [place] [place] [address], [facility] RBC #/vol (Bld) 2.76 10*6/uL Low 3.80-5.00 [facility] Comment on above: Order Comment: Unkno wn Performed By: #### [id number] #### [facility] [address] [facility] [place] [address], [facility] WBC #/vol (Bld) 7.09 10*3/uL Normal 4.00-10.60 [facility] Comment on above: Order Comment: Unkno wn Performed By: #### [id number] #### [facility] [address] [facility] [place] [address], [facility] HEMOGLOBINon 11-15-2018 Hemoglobin mass conc (Bld) 8.5 g/dL Low 12.0-15.0 [facility] Comment on above: Order Comment: No: D o not add to previous draw Performed By: #### [id number] #### [facility] [address] [place] [address], [facility] MAGNESIUM BLOODon 11-15-2018 Magnesium mass conc 2.0 mg/dL Normal 1.9-2.7 [facility] Comment on above: Order Comment: Valerie fofana Performed By: #### [id number] #### [facility] [address] [facility]. [address] POC GLUCOSE LABon 11-15-2018 Glucose mass conc 168 mg/dL High 70-100 [facility] Comment on above: Performed By: #### [id number] #### [facility] [address] [facility]. [address] Glucose mass conc 117 mg/dL High 70-100 [facility] Comment on above: Performed By: #### 5 [id number] #### [facility] [address] [facility]. [address] Glucose mass conc 151 mg/dL High 70-100 [facility] Comment on above: Performed By: #### [id number] #### [facility] [address] [facility]. [address] Glucose mass conc 143 mg/dL High 70-100 [facility] Comment on above: Performed By: #### [id number] #### [facility] [address] PROTHROMBIN TIMEon 9 INR Coag RelTime (PPP) 1.18 {INR} High 0.91-1.16 [facility] Comment on above: Order Comment: Valerie [...] 1995;[id number]. Performed By: #### [id number] #### [facility] [address] [facility]. [address] Prothrombin time (PT) Coag time (PPP) 15.0 s High 12.3-14.8 [facility] Comment on above: Order Comment: Unkno wn Result Comment: ALL RESULTS MUST BE INTERPRETED WITH RESPECT TO BLOOD DRAWING ARTIFACT OR DILUTION ERROR OF ANTICOAGULANT AT THE TIME OF SAMPLING. Performed By: #### [id number] #### [facility] [address] [facility]. [address] BASIC METABOLIC PANELon 11-01 Calcium mass conc 8.5 mg/dL Low 8.6-10.3 [facility] Comment on above: Performed By: #### 7 [id number] #### [facility] [address] [facility] [place] [place] [address], [facility] Chloride molar conc 108 mmol/L High 98-107 [facility] Comment on above: Performed By: #### 7 0066 #### [facility] [address] [facility] [place] [address], [facility] CO2 molar conc 23 mmol/L Normal 21-31 [facility] Comment on above: Performed By: #### 7 0066 #### [facility] [address] [facility] [place] [address], [facility] Creatinine mass conc 0.84 mg/dL Normal 0.60-1.20 [facility] Comment on above: Performed By: #### 7 0066 #### [facility] [address] [facility] [place] [address], [facility] GFR/1.73 sq M predicted among blacks MDRD vol rate/area (S/P/Bld) mL/min/{1.73_m2} Normal >60 [facility] Comment on above: Performed By: #### 7 [id number] #### [facility] [address] [place] [address], [facility] GFR/1.73 sq M predicted among non-blacks MDRD vol rate/area (S/P/Bld) mL/min/{1.73_m2} Normal >60 [facility] Comment on above: Performed By: #### 7 0066 #### [facility] [address] [place] [address], [facility] Glucose mass conc 168 mg/dL High 70-100 [facility] Comment on above: Performed By: #### 7 0066 #### [facility] [address] [place] [address], [facility] Potassium molar conc 3.8 mmol/L Normal 3.5-5.1 [facility] Comment on above: Performed By: #### 7 0066 #### [facility] [address] [place] [address], [facility] Sodium molar conc 140 mmol/L Normal 136-145 [facility] Comment on above: Performed By: #### 7 0066 #### [facility] [address] [place] [address], [facility] Urea nitrogen mass conc 15 mg/dL Normal 7-25 [facility] Comment on above: Performed By: #### 7 0066 #### [facility] [address] [place] [address], [facility] CBC COMPLETE BLOOD COUNTon 0 - Erythrocyte distribution width Ratio (RBC) 14.0 % Normal 11.5-15.0 [facility] Comment on above: Order Comment: No: D o not add to previous draw Performed By: #### 4 1000, 54992, 19360, 53629 #### [facility] [address] Hematocrit Volume Fraction (Bld) 26.1 % Low 36.0-45.0 [facility] Comment on above: Order Comment: No: D o not add to previous draw Performed By: #### 4 1000, 86950, 46082, 46813 #### [facility] [address] [place] [address], [facility] Hemoglobin mass conc (Bld) 8.4 g/dL Low 12.0-15.0 [facility] Comment on above: Order Comment: No: D o not add to previous draw Performed By: #### 4 1000, 80020, 96190, 77408 #### [facility] [address] [facility] [place] [address], [facility] MCH Entitic mass (RBC) 31.1 pg Normal 27.0-33.0 [facility] Comment on above: Order Comment: No: D o not add to previous draw Performed By: #### 4 1000, 19191, 73728, 04092 #### [facility] [address] [facility] [place] [address], [facility] MCHC mass conc (RBC) 32.2 g/dL Normal 32.0-35.0 [facility] Comment on above: Order Comment: No: D o not add to previous draw Performed By: #### 4 1000, 46714, 20538, 31534 #### [facility] [address] [facility] [place] [address], [facility] MCV Entitic volume (RBC) 96.7 fL Normal 82.0-98.0 [facility] Comment on above: Order Comment: No: D o not add to previous draw Performed By: #### 4 1000, 31086, 25386, 12147 #### [facility] [address] [place] [id number], [facility] Nucleated RBC/100 WBC Ratio (Bld) 0 % Normal 0-0 [facility] Comment on above: Order Comment: No: D o not add to previous draw Performed By: #### 4 1000, 03685, 57051, 61134 #### [facility] [address] [place] [address], [facility] PLAT CNT 310 10*3/uL Normal 150-400 [facility] Comment on above: Order Comment: No: D o not add to previous draw Performed By: #### 4 1000, 58690, 74212, 55529 #### [facility] [address] [place] [address], [facility] RBC #/vol (Bld) 2.70 10*6/uL Low 3.80-5.00 [facility] Comment on above: Order Comment: No: D o not add to previous draw Performed By: #### 4 1000, 22304, 92202, 32255 #### [facility] [address] [place] [address], [facility] WBC #/vol (Bld) 6.38 10*3/uL Normal 4.00-10.60 [facility] Comment on above: Order Comment: No: D o not add to previous draw Performed By: #### 4 1000, 58047, 25654, 14198 #### [facility] [address] BRAIN WO CONTRASTon 11-14 CT BRAIN WO CONTRAST [facility] Department of Radiology [address] [place] [id number] Patient Name: KYLE POWELL : 1955 Sex: F Age: Race: White Pt. Location: [address] [place] [address] Patient Status: O Ordered Date: 11/14/2018 3:45:00 [...] findings. Electronically signed by:Cornelius Bennett. Transcribed by: [id number], User Resident: CHRISSY SANDOVAL Electronically Signed by: CORNELIUS BENNETT @ 11/15/2018 04:27 PM I personally read this/these film(s) with this resident Normal [facility] Comment on above: Order Comment: No: D o not add to previous draw FOLATE SERUMon 11-14-2018 Folate mass conc 25.00 ng/mL Normal 6.60-1000.0 0 [facility] Comment on above: Order Comment: No: D o not add to previous draw Result Comment: Norm al range reflects World Health Organization International Standard Performed By: #### 7 0066 #### [facility] [address] [place] [address], [facility] HAPTOGLOBINon 11-14-2018 HAPTOGLOBIN 7 mg/dL Low 26-164 [facility] Comment on above: Order Comment: No: D o not add to previous draw Performed By: #### 7 0066 #### [facility] [address] [place] [address], [facility] HEMOGLOBINon 11-14-2018 Hemoglobin mass conc (Bld) 8.1 g/dL Low 12.0-15.0 [facility] Comment on above: Order Comment: No: D o not add to previous draw Performed By: #### 7 0066 #### [facility] [address] [facility] History and Physicalon 11-14 History and Physical MR#: [id number] [facility] Pt. Name: Kyle Powell Admitted: 11/13/2018 Date of : 1955 Attending Physician: Basim Tripathi MD Room #: [id number] Discharge Date: HISTORY AND PHYSICAL CHIEF COMPLAINT: [...] Tripathi MD Date Trans: 11/14/2018 02:17 A/nav DN_[id number] Normal [facility] LDH BLOODon 11-14-2018 LDH 99 Units/L Low 140-271 [facility] Comment on above: Order Comment: No: D o not add to previous draw Performed By: #### 7 0066 #### [facility] [address] [place] [address], [place] POC GLUCOSE LABon 11-14-2018 Glucose mass conc 128 mg/dL High 70-100 [facility] Comment on above: Performed By: #### 8 5499 #### [facility] [address] [place] [address], [place] Glucose mass conc 128 mg/dL High 70-100 [facility] Comment on above: Performed By: #### 8 5499 #### [facility] [address] [place] [address], [place] Glucose mass conc 159 mg/dL High 70-100 [facility] Comment on above: Performed By: #### 7 0066 #### [facility] [address] [place] [address], [place] Glucose mass conc 213 mg/dL High 70-100 [facility] Comment on above: Performed By: #### 4 1000, 33379, 90175, 33163 #### [facility] [address] [place] [address], [place] Glucose mass conc 133 mg/dL High 70-100 [facility] Comment on above: Performed By: #### 4 1000, 69172, 07129, 67869 #### [facility] [address] [place] [address], [facility] Glucose mass conc 111 mg/dL High 70-100 [facility] Comment on above: Performed By: #### 4 1000, 41715, 75731, 80632 #### [facility] [address] [place] [address], [facility] PROTHROMBIN TIMEon 9 INR Coag RelTime (PPP) 1.17 {INR} High 0.91-1.16 [facility] Comment on above: Order Comment: [...] 1995;[id number]. Performed By: #### 7 0066 #### [facility] [address] [place] [address], [facility] Prothrombin time (PT) Coag time (PPP) 14.9 s High 12.3-14.8 [facility] Comment on above: Order Comment: No: D o not add to previous draw Result Comment: ALL RESULTS MUST BE INTERPRETED WITH RESPECT TO BLOOD DRAWING ARTIFACT OR DILUTION ERROR OF ANTICOAGULANT AT THE TIME OF SAMPLING. Performed By: #### 7 0066 #### [facility] [address] [facility] [place] [address], [facility] RETICULOCYTE PANELon 019 ABSOLUTE RETICULOCYTE 0.1396 10*6/uL High 0.02 50-0.10 00 [facility] Comment on above: Performed By: #### 7 0066 #### [facility] [address] [facility] [place] [address], [facility] IMMATURE RETICULOCYTE FRACTION 35.3 % High 2.0-16.0 [facility] Comment on above: Performed By: #### 7 0066 #### [facility] [address] [facility] RETIC COUNT 5.17 % High 0.50-1.80 [facility] Comment on above: Performed By: #### 7 0066 #### [facility] [address] [facility] RETICULOCYTE HEMOGLOBIN 36.5 pg High 28.0-36.0 [facility] Comment on above: Performed By: #### 7 0066 #### [facility] [address] TROPONIN-Ion 11-14-2018 Troponin I.cardiac mass conc 0.12 ng/mL Critically high 0.00-0.04 [facility] Comment on above: Order Comment: No: D o not add to previous draw Result Comment: M-TN EVIOUS CRITICAL RESULT REFERENCE RANGES: 0.00 - 0.04 ng/ml NORMAL 0.05 - 0.50 ng/ml INDETERMINATE > 0.50 ng/ml CONSISTENT WITH AN M.I. Performed By: #### 8 5499 #### [facility] [address] [place] [address], [facility] Troponin I.cardiac mass conc 0.16 ng/mL Critically high 0.00-0.04 [facility] Comment on above: Result Comment: M-TN EVIOUS CRITICAL RESULT REFERENCE RANGES: 0.00 - 0.04 ng/ml NORMAL 0.05 - 0.50 ng/ml INDETERMINATE > 0.50 ng/ml CONSISTENT WITH AN M.I. Performed By: #### 7 0066 #### [facility] [address] Troponin I.cardiac mass conc 0.28 ng/mL Critically high 0.00-0.04 [facility] Comment on above: Order Comment: No: D o not add to previous draw Result Comment: M-TN EVIOUS CRITICAL RESULT REFERENCE RANGES: 0.00 - 0.04 ng/ml NORMAL 0.05 - 0.50 ng/ml INDETERMINATE > 0.50 ng/ml CONSISTENT WITH AN M.I. Performed By: #### 4 1000, 09296, 99162, 04494 #### [facility] [address] [facility] VITAMIN B12on 11-14-2018 Cobalamin (Vitamin B12) mass conc 338 pg/mL Normal 180-914 [facility] Comment on above: Order Comment: No: D o not add to previous draw Result Comment: REFE RENCE RANGES: 180-914 pg/mL Normal 145-179 pg/mL Indeterminate <145 pg/mL Deficient Performed By: #### 7 0066 #### [facility] [address] [facility] BASIC METABOLIC PANELon 12-0 Calcium mass conc 8.7 mg/dL Normal 8.6-10.3 [facility] Comment on above: Order Comment: No: D o not add to previous draw Performed By: #### 4 1000, 32275, 96180, 31133 #### [facility] [address] [facility] [place] [address], [facility] Chloride molar conc 109 mmol/L High 98-107 [facility] Comment on above: Order Comment: No: D o not add to previous draw Performed By: #### 4 1000, 53045, 98992, 24967 #### [facility] [address] [place] [address], [place] CO2 molar conc 24 mmol/L Normal 21-31 [facility] Comment on above: Order Comment: No: D o not add to previous draw Performed By: #### 4 1000, 02348, 81614, 01490 #### [facility] [address] [place] [address], [place] Creatinine mass conc 0.79 mg/dL Normal 0.60-1.20 [facility] Comment on above: Order Comment: No: D o not add to previous draw Performed By: #### 4 1000, 97542, 56224, 18815 #### [facility] [address] [place] [address], [place] GFR/1.73 sq M predicted among blacks MDRD vol rate/area (S/P/Bld) mL/min/{1.73_m2} Normal >60 [facility] Comment on above: Order Comment: No: D o not add to previous draw Performed By: #### 4 1000, 15417, 84508, 54115 #### [facility] [address] [place] [address], [place] GFR/1.73 sq M predicted among non-blacks MDRD vol rate/area (S/P/Bld) mL/min/{1.73_m2} Normal >60 [facility] Comment on above: Order Comment: No: D o not add to previous draw Performed By: #### 4 1000, 57620, 07369, 96250 #### [facility] [address] [place] [address], [place] Glucose mass conc 128 mg/dL High 70-100 [facility] Comment on above: Order Comment: No: D o not add to previous draw Performed By: #### 4 1000, 95955, 27629, 02063 #### [facility] [address] [place] [address], [place] Potassium molar conc 4.3 mmol/L Normal 3.5-5.1 [facility] Comment on above: Order Comment: No: D o not add to previous draw Performed By: #### 4 1000, 96165, 93797, 26663 #### [facility] [address] [place] [address], [facility] Sodium molar conc 140 mmol/L Normal 136-145 [facility] Comment on above: Order Comment: No: D o not add to previous draw Performed By: #### 4 1000, 74601, 31501, 11860 #### [facility] [address] [place] [address], [facility] Urea nitrogen mass conc 23 mg/dL Normal 7-25 [facility] Comment on above: Order Comment: No: D o not add to previous draw Performed By: #### 4 1000, 75837, 58008, 89859 #### [facility] [address] [place] [address], [facility] CBC COMPLETE BLOOD COUNTon 1 11-08-2017 Erythrocyte distribution width Ratio (RBC) 12.6 % Normal 11.5-15.0 [facility] Comment on above: Order Comment: No: D o not add to previous draw Performed By: #### 4 1000, 53790, 57445, 14060 #### [facility] [address] [place] [address], [facility] Hematocrit Volume Fraction (Bld) 35.1 % Low 36.0-45.0 [facility] Comment on above: Order Comment: No: D o not add to previous draw Performed By: #### 4 1000, 05830, 17589, 91448 #### [facility] [address] [place] [address], [facility] Hemoglobin mass conc (Bld) 11.5 g/dL Low 12.0-15.0 [facility] Comment on above: Order Comment: No: D o not add to previous draw Performed By: #### 4 1000, 65470, 75229, 75830 #### [facility] [address] MCH Entitic mass (RBC) 30.6 pg Normal 27.0-33.0 [facility] Comment on above: Order Comment: No: D o not add to previous draw Performed By: #### 4 1000, 33364, 52748, 66346 #### [facility] [address] [facility]. [address] MCHC mass conc (RBC) 32.8 g/dL Normal 32.0-35.0 [facility] Comment on above: Order Comment: No: D o not add to previous draw Performed By: #### 4 1000, 51557, 73335, 05815 #### [facility] [address] MCV Entitic volume (RBC) 93.4 fL Normal 82.0-98.0 [facility] Comment on above: Order Comment: No: D o not add to previous draw Performed By: #### 4 1000, 89460, 18033, 70392 #### [facility] [address] Nucleated RBC/100 WBC Ratio (Bld) 0 % Normal 0-0 [facility] Comment on above: Order Comment: No: D o not add to previous draw Performed By: #### 4 1000, 36677, 61575, 85999 #### [facility] [address] [place] [address], [facility] PLAT CNT 281 10*3/uL Normal 150-400 [facility] Comment on above: Order Comment: No: D o not add to previous draw Performed By: #### 4 1000, 33026, 08564, 27637 #### [facility] [address] [facility] [place] [address], [facility] RBC #/vol (Bld) 3.76 10*6/uL Low 3.80-5.00 [facility] Comment on above: Order Comment: No: D o not add to previous draw Performed By: #### 4 1000, 52479, 41054, 22086 #### [facility] [address] [facility]. [address] WBC #/vol (Bld) 7.49 10*3/uL Normal 4.00-10.60 [facility] Comment on above: Order Comment: No: D o not add to previous draw Performed By: #### 4 1000, 72531, 04240, 73935 #### [facility] [address] [facility] [place] [address], [facility] PHOSPHORUS BLOODon 8 Phosphate mass conc 4.1 mg/dL Normal 2.5-5.0 [facility] Comment on above: Order Comment: No: D o not add to previous draw Performed By: #### 4 1000, 00879, 40973, 08900 #### [facility] [address] [facility]. [address] POC GLUCOSE LABon 09-07-2018 Glucose mass conc 212 mg/dL High 70-100 [facility] Comment on above: Performed By: #### 4 1000, 64517, 74238, 42056 #### [facility] [address] [facility]. [address] Glucose mass conc 132 mg/dL High 70-100 [facility] Comment on above: Performed By: #### 4 1000, 57178, 49364, 16259 #### [facility] [address] [facility] APTTon 09-06-2018 aPTT Coag time (Bld) 28.1 s Normal 25.0-35.0 [facility] Comment on above: Order Comment: [...] THIS PURPOSE. Performed By: #### 4 1000, 76399, 88917, 42436 #### [facility] [address] [place] [address], [place] BASIC METABOLIC PANELon 12-0 Calcium mass conc 9.0 mg/dL Normal 8.6-10.3 [facility] Comment on above: Order Comment: No: D o not add to previous draw Performed By: #### 4 1000, 29135, 01432, 81901 #### [facility] [address] [place] [address], [place] Chloride molar conc 104 mmol/L Normal 98-107 [facility] Comment on above: Order Comment: No: D o not add to previous draw Performed By: #### 4 1000, 39838, 20469, 63533 #### [facility] [address] [place] [address], [place] CO2 molar conc 22 mmol/L Normal 21-31 [facility] Comment on above: Order Comment: No: D o not add to previous draw Performed By: #### 4 1000, 09331, 90059, 04819 #### [facility] [address] [place] [address], [place] Creatinine mass conc 0.95 mg/dL Normal 0.60-1.20 [facility] Comment on above: Order Comment: No: D o not add to previous draw Performed By: #### 4 1000, 06505, 18523, 52289 #### [facility] [address] [place] [address], [place] GFR/1.73 sq M predicted among blacks MDRD vol rate/area (S/P/Bld) mL/min/{1.73_m2} Normal >60 [facility] Comment on above: Order Comment: No: D o not add to previous draw Performed By: #### 4 1000, 08620, 31791, 85002 #### [facility] [address] [place] [address], [place] GFR/1.73 sq M predicted among non-blacks MDRD vol rate/area (S/P/Bld) 59 ml/min/1.73sq m Abnormal >60 [facility] Comment on above: Order Comment: No: D o not add to previous draw Performed By: #### 4 1000, 94550, 81376, 99011 #### [facility] [address] [place] [address], [facility] Glucose mass conc 172 mg/dL High 70-100 [facility] Comment on above: Order Comment: No: D o not add to previous draw Performed By: #### 4 1000, 73419, 25253, 60043 #### [facility] [address] [place] [address], [facility] Potassium molar conc 4.3 mmol/L Normal 3.5-5.1 [facility] Comment on above: Order Comment: No: D o not add to previous draw Performed By: #### 4 1000, 04858, 70890, 78378 #### [facility] [address] [place] [address], [facility] Sodium molar conc 135 mmol/L Low 136-145 [facility] Comment on above: Order Comment: No: D o not add to previous draw Performed By: #### 4 1000, 82549, 51327, 10155 #### [facility] [address] [place] [address], [facility] Urea nitrogen mass conc 27 mg/dL High 7-25 [facility] Comment on above: Order Comment: No: D o not add to previous draw Performed By: #### 4 1000, 78059, 23413, 01371 #### [facility] [address] [place] [address], [facility] CBC W/DIFFon 09-06-2018 ABS BASOPHILS 0.0 10*3/uL Normal 0.0-0.2 [facility] Comment on above: Order Comment: No: D o not add to previous draw Performed By: #### 4 1000, 46396, 87537, 01649 #### [facility] [address] [facility] ABS IMM GRANS 0.0 10*3/uL Normal 0.0-0.2 [facility] Comment on above: Order Comment: No: D o not add to previous draw Performed By: #### 4 1000, 38338, 23563, 16994 #### [facility] [address] [facility] [address], [facility] ABS NEUTROPHILS 4.3 10*3/uL Normal 1.6-7.6 [facility] Comment on above: Order Comment: No: D o not add to previous draw Performed By: #### 4 1000, 22591, 23499, 70565 #### [facility] [address] [facility]. [address] Basophils #/vol (Bld) 0.3 % Normal 0.0-1.0 [facility] Comment on above: Order Comment: No: D o not add to previous draw Performed By: #### 4 1000, 17710, 77427, 21121 #### [facility] [address] [facility] [place] [address], [facility] Eosinophils #/vol (Bld) 0.2 10*3/uL Normal 0.0-0.5 [facility] Comment on above: Order Comment: No: D o not add to previous draw Performed By: #### 4 1000, 29255, 81714, 18000 #### [facility] [address] [facility] [place] [address], [facility] Eosinophils/100 WBC (Bld) 2.1 % Normal 0.0-6.0 [facility] Comment on above: Order Comment: No: D o not add to previous draw Performed By: #### 4 1000, 46426, 08553, 11154 #### [facility] [address] [place] [address], [facility] Erythrocyte distribution width Ratio (RBC) 12.7 % Normal 11.5-15.0 [facility] Comment on above: Order Comment: No: D o not add to previous draw Performed By: #### 4 1000, 18657, 05433, 49046 #### [facility] [address] [place] [address], [facility] Hematocrit Volume Fraction (Bld) 36.9 % Normal 36.0-45.0 [facility] Comment on above: Order Comment: No: D o not add to previous draw Performed By: #### 4 1000, 72390, 68675, 33176 #### [facility] [address] [place] [address], [facility] Hemoglobin mass conc (Bld) 12.2 g/dL Normal 12.0-15.0 [facility] Comment on above: Order Comment: No: D o not add to previous draw Performed By: #### 4 1000, 29918, 16331, 45160 #### [facility] [address] [place] [address], [facility] IMMATURE GRANS 0.3 % Normal 0.0-1.0 [facility] Comment on above: Order Comment: No: D o not add to previous draw Performed By: #### 4 1000, 68215, 10526, 27669 #### [facility] [address] [facility] [address], [facility] Lymphocytes #/vol (Bld) 3.4 10*3/uL Normal 1.2-4.0 [facility] Comment on above: Order Comment: No: D o not add to previous draw Performed By: #### 4 1000, 00163, 46046, 73502 #### [facility] [address] [place] [id number], [facility] Lymphocytes/100 WBC (Bld) 38.3 % Normal 20.0-45.0 [facility] Comment on above: Order Comment: No: D o not add to previous draw Performed By: #### 4 1000, 38901, 40862, 94307 #### [facility] [address] MCH Entitic mass (RBC) 30.6 pg Normal 27.0-33.0 [facility] Comment on above: Order Comment: No: D o not add to previous draw Performed By: #### 4 1000, 85144, 96465, 01062 #### [facility] [address] MCHC mass conc (RBC) 33.1 g/dL Normal 32.0-35.0 [facility] Comment on above: Order Comment: No: D o not add to previous draw Performed By: #### 4 1000, 10435, 21027, 18931 #### [facility] [address] MCV Entitic volume (RBC) 92.5 fL Normal 82.0-98.0 [facility] Comment on above: Order Comment: No: D o not add to previous draw Performed By: #### 4 1000, 43287, 47843, 98774 #### [facility] [address] Monocytes #/vol (Bld) 0.9 10*3/uL Normal 0.1-1.0 [facility] Comment on above: Order Comment: No: D o not add to previous draw Performed By: #### 4 1000, 49298, 12726, 91153 #### [facility] [address] MONOS 10.0 % Normal 5.0-12.0 [facility] Comment on above: Order Comment: No: D o not add to previous draw Performed By: #### 4 1000, 74704, 30918, 00938 #### [facility] [address] [place] [address], [facility] Neutrophils/100 WBC (Bld) 49.0 % Normal 40.0-72.0 [facility] Comment on above: Order Comment: No: D o not add to previous draw Performed By: #### 4 1000, 25950, 30095, 72178 #### [facility] [address] [facility] Nucleated RBC/100 WBC Ratio (Bld) 0 % Normal 0-0 [facility] Comment on above: Order Comment: No: D o not add to previous draw Performed By: #### 4 1000, 53853, 15742, 80493 #### [facility] [address] [facility] [address], [facility] PLAT CNT 278 10*3/uL Normal 150-400 [facility] Comment on above: Order Comment: No: D o not add to previous draw Performed By: #### 4 1000, 38321, 89984, 58803 #### [facility] [address] [facility] [place] [address], [facility] RBC #/vol (Bld) 3.99 10*6/uL Normal 3.80-5.00 [facility] Comment on above: Order Comment: No: D o not add to previous draw Performed By: #### 4 1000, 00530, 75709, 44108 #### [facility] [address] [facility] [place] [address], [facility] WBC #/vol (Bld) 8.84 10*3/uL Normal 4.00-10.60 [facility] Comment on above: Order Comment: No: D o not add to previous draw Performed By: #### 4 1000, 33790, 11435, 96892 #### [facility] [address] [facility]. [address] Cardiovascular Lab Reporton 09-06-2018 Cardiovascular Lab Report [facility] Patient Name: [facility]ry [facility] Kyle MR #: [id number] Department of Physician: Yasmine Joseph M.D. Division of Service Date: 09/06/2018 Cardiology Birthdate: 1955 Adult Cardiovascular Room #: [id number] [facility] [address] [place] [address] Cardiovascular Laboratory Report FINAL IMPRESSION: 1. Hemodynamically [...] she was referred for heart catheterization from [facility]. PROCEDURE: 1. Coronary angiography. 2. FFR of LAD. 3. FFR of circumflex. 4. Balloon angioplasty LAD. 5. IC nitroglycerin. 6. Ultrasound-guided access of the ulnar artery. 7. Left heart catheterization. RECOMMENDATION: 1. The patient should be started on isosorbide mononitrate 60 mg on a daily basis. 2. Discontinue heparin and continue post catheterization IV hydration. Case was discussed with the primary health and safety trainer, Dr. Mcdonald. 3. Follow up with Dr. Mcdonald in 1-2 weeks. METHODS: After risks, benefits, and alternatives were explained to the patient, the patient was brought to catheterization lab in a fasting state. Access was obtained into the right ulnar artery under ultrasound guidance and a 6-Lebanese Terumo [place] sheath was placed in right radial artery. 5-Lebanese Jl3.5 and JR 5 catheter was used for diagnostic angiography. After angiography was performed, we placed a 6-Lebanese XB3 guide for better angiography. At this [...] Cormier M.D. Date Trans: 09/06/2018 11:28 Elisabeth/nav [id number] cc: Faraz Osman M.D. [address] [facility] [address] [place] [id number] Garrett Mcdonald M.D. [address] [facility] [address] Wilmar Morris D.O. [address] [facility] [address] [place] [id number] Normal [facility] MAGNESIUM BLOODon 09-06-2018 Magnesium mass conc 2.0 mg/dL Normal 1.9-2.7 [facility] Comment on above: Order Comment: No: D o not add to previous draw Performed By: #### 4 1000, 30934, 71529, 06822 #### [facility] [address] [place] [address], [facility] PHOSPHORUS BLOODon 8 Phosphate mass conc 5.2 mg/dL High 2.5-5.0 [facility] Comment on above: Order Comment: No: D o not add to previous draw Performed By: #### 4 1000, 53994, 14041, 22490 #### [facility] [address] [place] [address], [place] POC GLUCOSE LABon 09-06-2018 Glucose mass conc 203 mg/dL High 70-100 [facility] Comment on above: Performed By: #### 4 1000, 66762, 57500, 34294 #### [facility] [address] [place] [address], [place] Glucose mass conc 176 mg/dL High 70-100 [facility] Comment on above: Performed By: #### 4 1000, 90881, 63949, 20268 #### [facility] [address] [place] [address], [place] Glucose mass conc 199 mg/dL High 70-100 [facility] Comment on above: Performed By: #### 4 1000, 25017, 40645, 03293 #### [facility] [address] [place] [address], [facility] Glucose mass conc 158 mg/dL High 70-100 [facility] Comment on above: Performed By: #### 4 1000, 86171, 30855, 54263 #### [facility] [address] [place] [address], [facility] PROTHROMBIN TIMEon 8 INR Coag RelTime (PPP) 1.14 {INR} Normal 0.91-1.16 [facility] Comment on above: Order Comment: [...] CHEST 1995;108:[id number]. Performed By: #### 4 1000, 01026, 86383, 68047 #### [facility] [address] [place] [address], [facility] Prothrombin time (PT) Coag time (PPP) 14.6 s Normal 12.3-14.8 [facility] Comment on above: Order Comment: No: D o not add to previous draw Result Comment: ALL RESULTS MUST BE INTERPRETED WITH RESPECT TO BLOOD DRAWING ARTIFACT OR DILUTION ERROR OF ANTICOAGULANT AT THE TIME OF SAMPLING. Performed By: #### 4 1000, 02266, 06134, 11325 #### [facility] [address] [place] [address], [facility] TROPONIN-Ion 09-06-2018 Troponin I.cardiac mass conc 0.00 ng/mL Normal 0.00-0.04 [facility] Comment on above: Order Comment: No: D o not add to previous draw Result Comment: REFE RENCE RANGES: 0.00 - 0.14 ng/ml NEGATIVE 0.15 - 0.25 ng/ml INDETERMINATE > 0.25 ng/ml INDICATIVE OF AN M.I. Performed By: #### 4 1000, 63847, 33922, 36420 #### [facility] [address] [place] [address], [facility] BASIC METABOLIC PANELon Calcium mass conc 9.3 mg/dL Normal 8.6-10.3 [facility] Comment on above: Order Comment: No: D o not add to previous draw Performed By: #### 4 1000, 69622, 29915, 06199 #### [facility] [address] [place] [address], [facility] Chloride molar conc 104 mmol/L Normal 98-107 [facility] Comment on above: Order Comment: No: D o not add to previous draw Performed By: #### 4 1000, 40164, 30509, 40074 #### [facility] [address] [place] [address], [facility] CO2 molar conc 23 mmol/L Normal 21-31 [facility] Comment on above: Order Comment: No: D o not add to previous draw Performed By: #### 4 1000, 98604, 46852, 24706 #### [facility] [address] [place] [address], [facility] Creatinine mass conc 0.84 mg/dL Normal 0.60-1.20 [facility] Comment on above: Order Comment: No: D o not add to previous draw Performed By: #### 4 1000, 60412, 46469, 55305 #### [facility] [address] [place] [address], [place] GFR/1.73 sq M predicted among blacks MDRD vol rate/area (S/P/Bld) mL/min/{1.73_m2} Normal >60 [facility] Comment on above: Order Comment: No: D o not add to previous draw Performed By: #### 4 1000, 20667, 66561, 80572 #### [facility] [address] [place] [address], [place] GFR/1.73 sq M predicted among non-blacks MDRD vol rate/area (S/P/Bld) mL/min/{1.73_m2} Normal >60 [facility] Comment on above: Order Comment: No: D o not add to previous draw Performed By: #### 4 1000, 90605, 60811, 03407 #### [facility] [address] [place] [address], [place] Glucose mass conc 124 mg/dL High 70-100 [facility] Comment on above: Order Comment: No: D o not add to previous draw Performed By: #### 4 1000, 37658, 42208, 71991 #### [facility] [address] [place] [address], [place] Potassium molar conc 4.2 mmol/L Normal 3.5-5.1 [facility] Comment on above: Order Comment: No: D o not add to previous draw Performed By: #### 4 1000, 75316, 26033, 87548 #### [facility] [address] [place] [address], [place] Sodium molar conc 137 mmol/L Normal 136-145 [facility] Comment on above: Order Comment: No: D o not add to previous draw Performed By: #### 4 1000, 90207, 76408, 89189 #### [facility] [address] [place] [address], [place] Urea nitrogen mass conc 25 mg/dL Normal 7-25 [facility] Comment on above: Order Comment: No: D o not add to previous draw Performed By: #### 4 1000, 68813, 24182, 37741 #### [facility] [address] CBC W/DIFFon 09-05-2018 ABS BASOPHILS 0.0 10*3/uL Normal 0.0-0.2 [facility] Comment on above: Performed By: #### 4 1000, 11101, 21189, 62093 #### [facility] [address] ABS IMM GRANS 0.0 10*3/uL Normal 0.0-0.2 [facility] Comment on above: Performed By: #### 4 1000, 49043, 32391, 78843 #### [facility] [address] ABS NEUTROPHILS 5.5 10*3/uL Normal 1.6-7.6 [facility] Comment on above: Performed By: #### 4 1000, 74711, 12959, 19729 #### [facility] [address] Basophils #/vol (Bld) 0.4 % Normal 0.0-1.0 [facility] Comment on above: Performed By: #### 4 1000, 10833, 97511, 80769 #### [facility] [address] Eosinophils #/vol (Bld) 0.2 10*3/uL Normal 0.0-0.5 [facility] Comment on above: Performed By: #### 4 1000, 74639, 57360, 14066 #### [facility] [address] Eosinophils/100 WBC (Bld) 1.9 % Normal 0.0-6.0 [facility] Comment on above: Performed By: #### 4 1000, 19741, 09427, 30464 #### [facility] [address] [place] [address], [facility] Erythrocyte distribution width Ratio (RBC) 12.6 % Normal 11.5-15.0 [facility] Comment on above: Performed By: #### 4 1000, 58096, 04071, 65057 #### [facility] [address] [place] [address], [facility] Hematocrit Volume Fraction (Bld) 40.6 % Normal 36.0-45.0 [facility] Comment on above: Performed By: #### 4 1000, 31551, 80448, 57271 #### [facility] [address] [place] [address], [facility] Hemoglobin mass conc (Bld) 13.4 g/dL Normal 12.0-15.0 [facility] Comment on above: Performed By: #### 4 1000, 27503, 72739, 93181 #### [facility] [address] [place] [address], [facility] IMMATURE GRANS 0.2 % Normal 0.0-1.0 [facility] Comment on above: Performed By: #### 4 1000, 23620, 64728, 21065 #### [facility] [address] [place] [address], [facility] Lymphocytes #/vol (Bld) 3.5 10*3/uL Normal 1.2-4.0 [facility] Comment on above: Performed By: #### 4 1000, 66380, 27771, 74235 #### [facility] [address] [place] [address], [facility] Lymphocytes/100 WBC (Bld) 35.3 % Normal 20.0-45.0 [facility] Comment on above: Performed By: #### 4 1000, 13072, 23741, 54899 #### [facility] [address] MCH Entitic mass (RBC) 30.3 pg Normal 27.0-33.0 [facility] Comment on above: Performed By: #### 4 1000, 41542, 05823, 96243 #### [facility] [address] [facility] MCHC mass conc (RBC) 33.0 g/dL Normal 32.0-35.0 [facility] Comment on above: Performed By: #### 4 1000, 14449, 85332, 55615 #### [facility] [address] [facility] [address] MCV Entitic volume (RBC) 91.9 fL Normal 82.0-98.0 [facility] Comment on above: Performed By: #### 4 1000, 82966, 09659, 28921 #### [facility] [address] [facility]. [address] Monocytes #/vol (Bld) 0.7 10*3/uL Normal 0.1-1.0 [facility] Comment on above: Performed By: #### 4 1000, 97352, 94163, 45698 #### [facility] [address] [facility] [place] [address], [facility] MONOS 7.4 % Normal 5.0-12.0 [facility] Comment on above: Performed By: #### 4 1000, 60184, 94229, 64340 #### [facility] [address] [facility]. [address] Neutrophils/100 WBC (Bld) 54.8 % Normal 40.0-72.0 [facility] Comment on above: Performed By: #### 4 1000, 32295, 61160, 01154 #### [facility] [address] [facility] [place] [address], [facility] Nucleated RBC/100 WBC Ratio (Bld) 0 % Normal 0-0 [facility] Comment on above: Performed By: #### 4 1000, 57984, 24828, 17544 #### [facility] [address] [place] [address], [facility] PLAT CNT 325 10*3/uL Normal 150-400 [facility] Comment on above: Performed By: #### 4 1000, 78360, 76577, 50971 #### [facility] [address] RBC #/vol (Bld) 4.42 10*6/uL Normal 3.80-5.00 [facility] Comment on above: Performed By: #### 4 1000, 84116, 83082, 56493 #### [facility] [address] WBC #/vol (Bld) 9.97 10*3/uL Normal 4.00-10.60 [facility] Comment on above: Performed By: #### 4 1000, 46055, 54671, 88070 #### [facility] [address] History and Physicalon 09-05 History and Physical MR#: [id number] [facility] Pt. Name: Kyle Powell Admitted: 09/05/2018 Date of : 1955 Attending Physician: Jonah Sanabria MD Room #: [id number] Discharge Date: HISTORY AND PHYSICAL HISTORY OF PRESENT ILLNESS: The patient is a 62-year-old female, very pleasant with past medical history significant for coronary artery disease, history of multiple strokes in the past, presented to the [facility] from the [facility] as a direct admit. The patient stated that 3 days ago she went to the [facility] because of the chest pain that was located centrally, nonradiating, getting worse with activity and then she was admitted in [facility] for 3 days. Today, she went for the Persantine stress test. When they were injecting Persantine, the patient found to have ST elevation and they aborted the procedure and decision were made to transfer the patient to the [facility] for a possible cardiac cath. 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 At the time of encounter, the patient is sitting comfortably in bed, not in acute distress. The patient has last cardiac cath in [facility] in 01/2017. The patient had [...] Have been reconciled. LABORATORY DATA: From the [facility], troponin 0.01, last. The patient hemoglobin and BMP were stable. We ordered a repeat BMP and CBC and tropes level that are pending. CBC is unremarkable at our system. ASSESSMENT AND PLAN: 1. Atypical chest pain, rule out ACS. Persantine as a stress test was aborted at the [facility] because of ST-segment changes. We will trend [...] Sanabria MD Date Trans: 09/05/2018 04:59 P/mmo [id number] Normal [facility] MAGNESIUM BLOODon 09-05-2018 Magnesium mass conc 1.9 mg/dL Normal 1.9-2.7 [facility] Comment on above: Order Comment: No: D o not add to previous draw Performed By: #### 4 1000, 28183, 70690, 34016 #### [facility] [address] [place] [address], [facility] PHOSPHORUS BLOODon 8 Phosphate mass conc 4.5 mg/dL Normal 2.5-5.0 [facility] Comment on above: Order Comment: No: D o not add to previous draw Performed By: #### 4 1000, 76741, 74420, 51988 #### [facility] [address] [place] [address], [facility] POC GLUCOSE LABon 09-05-2018 Glucose mass conc 192 mg/dL High 70-100 [facility] Comment on above: Performed By: #### 4 1000, 40391, 08879, 93349 #### [facility] [address] [place] [address], [place] Glucose mass conc 119 mg/dL High 70-100 [facility] Comment on above: Performed By: #### 4 1000, 10580, 34120, 74709 #### [facility] [address] [place] [address], [place] TROPONIN-Ion 09-05-2018 Troponin I.cardiac mass conc 0.01 ng/mL Normal 0.00-0.04 [facility] Comment on above: Order Comment: No: D o not add to previous draw Result Comment: REFE RENCE RANGES: 0.00 - 0.04 ng/ml NORMAL 0.05 - 0.50 ng/ml INDETERMINATE > 0.50 ng/ml CONSISTENT WITH AN M.I. Performed By: #### 4 1000, 74607, 06652, 27308 #### [facility] [address] [place] [address], [facility] Troponin I.cardiac mass conc 0.01 ng/mL Normal 0.00-0.04 [facility] Comment on above: Order Comment: No: D o not add to previous draw Result Comment: REFE RENCE RANGES: 0.00 - 0.04 ng/ml NORMAL 0.05 - 0.50 ng/ml INDETERMINATE > 0.50 ng/ml CONSISTENT WITH AN M.I. Performed By: #### 4 1000, 86894, 59535, 11864 #### [facility] [address] [place] [address], [place] POC GLUCOSE LABon 05-03-2018 Glucose mass conc 299 mg/dL High 70-100 [facility] Comment on above: Performed By: #### 4 1000, 54928, 11154, 69161 #### [facility] [address] [place] [address], [facility] Glucose mass conc 233 mg/dL High 70-100 [facility] Comment on above: Performed By: #### 4 1000, 53317, 14547, 43629 #### [facility] [address] [place] [address], [place] BASIC METABOLIC PANELon 08-0 Calcium mass conc 9.3 mg/dL Normal 8.6-10.3 [facility] Comment on above: Order Comment: No: D o not add to previous draw Performed By: #### 4 1000, 86991, 78207, 54403 #### [facility] [address] [place] [address], [place] Chloride molar conc 103 mmol/L Normal 98-107 [facility] Comment on above: Order Comment: No: D o not add to previous draw Performed By: #### 4 1000, 87816, 59834, 50758 #### [facility] [address] [place] [address], [place] CO2 molar conc 27 mmol/L Normal 21-31 [facility] Comment on above: Order Comment: No: D o not add to previous draw Performed By: #### 4 1000, 32940, 58806, 76180 #### [facility] [address] [place] [address], [place] Creatinine mass conc 0.80 mg/dL Normal 0.60-1.20 [facility] Comment on above: Order Comment: No: D o not add to previous draw Performed By: #### 4 1000, 61136, 51948, 16891 #### [facility] [address] [place] [address], [place] GFR/1.73 sq M predicted among blacks MDRD vol rate/area (S/P/Bld) mL/min/{1.73_m2} Normal >60 [facility] Comment on above: Order Comment: No: D o not add to previous draw Performed By: #### 4 1000, 83780, 97881, 57129 #### [facility] [address] [place] [address], [place] GFR/1.73 sq M predicted among non-blacks MDRD vol rate/area (S/P/Bld) mL/min/{1.73_m2} Normal >60 [facility] Comment on above: Order Comment: No: D o not add to previous draw Performed By: #### 4 1000, 86744, 56151, 30755 #### [facility] [address] [place] [address], [place] Glucose mass conc 272 mg/dL High 70-100 [facility] Comment on above: Order Comment: No: D o not add to previous draw Performed By: #### 4 1000, 37850, 09865, 32351 #### [facility] [address] [place] [address], [place] Potassium molar conc 4.1 mmol/L Normal 3.5-5.1 [facility] Comment on above: Order Comment: No: D o not add to previous draw Performed By: #### 4 1000, 93434, 07020, 71666 #### [facility] [address] [place] [address], [place] Sodium molar conc 138 mmol/L Normal 136-145 [facility] Comment on above: Order Comment: No: D o not add to previous draw Performed By: #### 4 1000, 94163, 87446, 47395 #### [facility] [address] [place] [address], [place] Urea nitrogen mass conc 19 mg/dL Normal 7-25 [facility] Comment on above: Order Comment: No: D o not add to previous draw Performed By: #### 4 1000, 58946, 54438, 90165 #### [facility] [address] [place] [address], [facility] CBC COMPLETE BLOOD COUNTon 0 05-02-2018 Erythrocyte distribution width Ratio (RBC) 12.9 % Normal 11.5-15.0 [facility] Comment on above: Order Comment: No: D o not add to previous draw Performed By: #### 4 1000, 49642, 77118, 47028 #### [facility] [address] [place] [address], [facility] Hematocrit Volume Fraction (Bld) 37.6 % Normal 36.0-45.0 [facility] Comment on above: Order Comment: No: D o not add to previous draw Performed By: #### 4 1000, 98705, 21196, 05084 #### [facility] [address] [place] [address], [facility] Hemoglobin mass conc (Bld) 12.2 g/dL Normal 12.0-15.0 [facility] Comment on above: Order Comment: No: D o not add to previous draw Performed By: #### 4 1000, 77898, 18591, 46915 #### [facility] [address] [place] [address], [facility] MCH Entitic mass (RBC) 29.7 pg Normal 27.0-33.0 [facility] Comment on above: Order Comment: No: D o not add to previous draw Performed By: #### 4 1000, 75821, 15714, 48032 #### [facility] [address] [place] [address], [facility] MCHC mass conc (RBC) 32.4 g/dL Normal 32.0-35.0 [facility] Comment on above: Order Comment: No: D o not add to previous draw Performed By: #### 4 1000, 45703, 98889, 35332 #### [facility] [address] [place] [address], [facility] MCV Entitic volume (RBC) 91.5 fL Normal 82.0-98.0 [facility] Comment on above: Order Comment: No: D o not add to previous draw Performed By: #### 4 1000, 64256, 22851, 11061 #### [facility] [address] [place] [address], [facility] Nucleated RBC/100 WBC Ratio (Bld) 0 % Normal 0-0 [facility] Comment on above: Order Comment: No: D o not add to previous draw Performed By: #### 4 1000, 31311, 65886, 55463 #### [facility] [address] [place] [address], [place] PLAT CNT 229 10*3/uL Normal 150-400 [facility] Comment on above: Order Comment: No: D o not add to previous draw Performed By: #### 4 1000, 45230, 17879, 45886 #### [facility] [address] [place] [address], [facility] RBC #/vol (Bld) 4.11 10*6/uL Normal 3.80-5.00 [facility] Comment on above: Order Comment: No: D o not add to previous draw Performed By: #### 4 1000, 75777, 09111, 31653 #### [facility] [address] [place] [address], [facility] WBC #/vol (Bld) 6.30 10*3/uL Normal 4.00-10.60 [facility] Comment on above: Order Comment: No: D o not add to previous draw Performed By: #### 4 1000, 32801, 42345, 68449 #### [facility] [address] [place] [address], [facility] POC GLUCOSE LABon 05-02-2018 Glucose mass conc 295 mg/dL High 70-100 [facility] Comment on above: Performed By: #### 4 1000, 40256, 78406, 24989 #### [facility] [address] [place] [address], [place] Glucose mass conc 327 mg/dL High 70-100 [facility] Comment on above: Performed By: #### 4 1000, 09246, 78984, 27683 #### [facility] [address] [place] [address], [place] Glucose mass conc 326 mg/dL High 70-100 [facility] Comment on above: Performed By: #### 4 1000, 27221, 00405, 83703 #### [facility] [address] [place] [address], [place] Glucose mass conc 265 mg/dL High 70-100 [facility] Comment on above: Performed By: #### 5 7307, 87933 #### [facility] [address] [place] [address], [place] Glucose mass conc 347 mg/dL High 70-100 [facility] Comment on above: Performed By: #### 5 7307, 04016 #### [facility] [address] [place] [address], [place] BASIC METABOLIC PANELon 08-0 Calcium mass conc 9.3 mg/dL Normal 8.6-10.3 [facility] Comment on above: Order Comment: No: D o not add to previous draw Performed By: #### 5 7307, 20197 #### [facility] [address] [place] [address], [place] Chloride molar conc 103 mmol/L Normal 98-107 [facility] Comment on above: Order Comment: No: D o not add to previous draw Performed By: #### 5 7307, 28579 #### [facility] [address] [place] [address], [place] CO2 molar conc 24 mmol/L Normal 21-31 [facility] Comment on above: Order Comment: No: D o not add to previous draw Performed By: #### 5 7307, 76267 #### [facility] [address] [place] [address], [place] Creatinine mass conc 0.78 mg/dL Normal 0.60-1.20 [facility] Comment on above: Order Comment: No: D o not add to previous draw Performed By: #### 5 7307, 58373 #### [facility] [address] [place] [address], [place] GFR/1.73 sq M predicted among blacks MDRD vol rate/area (S/P/Bld) mL/min/{1.73_m2} Normal >60 [facility] Comment on above: Order Comment: No: D o not add to previous draw Performed By: #### 5 7307, 23161 #### [facility] [address] [place] [address], [place] GFR/1.73 sq M predicted among non-blacks MDRD vol rate/area (S/P/Bld) mL/min/{1.73_m2} Normal >60 [facility] Comment on above: Order Comment: No: D o not add to previous draw Performed By: #### 5 7307, 04481 #### [facility] [address] [place] [address], [place] Glucose mass conc 270 mg/dL High 70-100 [facility] Comment on above: Order Comment: No: D o not add to previous draw Performed By: #### 5 7307, 26250 #### [facility] [address] [place] [address], [place] Potassium molar conc 4.2 mmol/L Normal 3.5-5.1 [facility] Comment on above: Order Comment: No: D o not add to previous draw Performed By: #### 5 7307, 76386 #### [facility] [address] [place] [address], [place] Sodium molar conc 136 mmol/L Normal 136-145 [facility] Comment on above: Order Comment: No: D o not add to previous draw Performed By: #### 5 7307, 83086 #### [facility] [address] [place] [address], [facility] Urea nitrogen mass conc 20 mg/dL Normal 7-25 [facility] Comment on above: Order Comment: No: D o not add to previous draw Performed By: #### 5 7307, 01648 #### [facility] [address] [place] [address], [facility] CBC COMPLETE BLOOD COUNTon 0 05-01-2018 Erythrocyte distribution width Ratio (RBC) 13.0 % Normal 11.5-15.0 [facility] Comment on above: Order Comment: No: D o not add to previous draw Performed By: #### 5 73, 22167 #### [facility] [address] Hematocrit Volume Fraction (Bld) 37.6 % Normal 36.0-45.0 [facility] Comment on above: Order Comment: No: D o not add to previous draw Performed By: #### 5 73, 80874 #### [facility] [address] [place] [address], [facility] Hemoglobin mass conc (Bld) 12.5 g/dL Normal 12.0-15.0 [facility] Comment on above: Order Comment: No: D o not add to previous draw Performed By: #### 5 7307, 73934 #### [facility] [address] [place] [address], [facility] MCH Entitic mass (RBC) 30.2 pg Normal 27.0-33.0 [facility] Comment on above: Order Comment: No: D o not add to previous draw Performed By: #### 5 7307, 40732 #### [facility] [address] [place] [address], [facility] MCHC mass conc (RBC) 33.2 g/dL Normal 32.0-35.0 [facility] Comment on above: Order Comment: No: D o not add to previous draw Performed By: #### 5 7307, 78055 #### [facility] [address] MCV Entitic volume (RBC) 90.8 fL Normal 82.0-98.0 [facility] Comment on above: Order Comment: No: D o not add to previous draw Performed By: #### 5 7307, 12428 #### [facility] [address] [facility] [place] [address], [facility] Nucleated RBC/100 WBC Ratio (Bld) 0 % Normal 0-0 [facility] Comment on above: Order Comment: No: D o not add to previous draw Performed By: #### 5 73, 97102 #### [facility] [address] [facility] [place] [address], [facility] PLAT CNT 252 10*3/uL Normal 150-400 [facility] Comment on above: Order Comment: No: D o not add to previous draw Performed By: #### 5 73, 66746 #### [facility] [address] [facility] [address], [facility] RBC #/vol (Bld) 4.14 10*6/uL Normal 3.80-5.00 [facility] Comment on above: Order Comment: No: D o not add to previous draw Performed By: #### 5 7307, 22250 #### [facility] [address] [facility] [address], [facility] WBC #/vol (Bld) 6.80 10*3/uL Normal 4.00-10.60 [facility] Comment on above: Order Comment: No: D o not add to previous draw Performed By: #### 5 7307, 50427 #### [facility] [address] [facility] [address], [facility] POC GLUCOSE LABon 05-01-2018 Glucose mass conc 300 mg/dL High 70-100 [facility] Comment on above: Performed By: #### 5 7307, 01867 #### [facility] [address] [facility] [address], [facility] Glucose mass conc 344 mg/dL High 70-100 [facility] Comment on above: Performed By: #### 5 7307, 61464 #### [facility] [address] [place] [address], [place] Glucose mass conc 335 mg/dL High 70-100 [facility] Comment on above: Performed By: #### 5 7307, 15555 #### [facility] [address] [place] [address], [facility] Glucose mass conc 263 mg/dL High 70-100 [facility] Comment on above: Performed By: #### 5 7307, 15128 #### [facility] [address] [place] [address], [facility] BASIC METABOLIC PANELon 07-3 Calcium mass conc 9.0 mg/dL Normal 8.6-10.3 [facility] Comment on above: Order Comment: No: D o not add to previous draw Performed By: #### 5 7307, 16617 #### [facility] [address] [place] [address], [facility] Chloride molar conc 105 mmol/L Normal 98-107 [facility] Comment on above: Order Comment: No: D o not add to previous draw Performed By: #### 5 7307, 41275 #### [facility] [address] [place] [address], [place] CO2 molar conc 25 mmol/L Normal 21-31 [facility] Comment on above: Order Comment: No: D o not add to previous draw Performed By: #### 5 7307, 68525 #### [facility] [address] [place] [address], [place] Creatinine mass conc 0.80 mg/dL Normal 0.60-1.20 [facility] Comment on above: Order Comment: No: D o not add to previous draw Performed By: #### 5 7307, 17319 #### [facility] [address] [place] [address], [place] GFR/1.73 sq M predicted among blacks MDRD vol rate/area (S/P/Bld) mL/min/{1.73_m2} Normal >60 [facility] Comment on above: Order Comment: No: D o not add to previous draw Performed By: #### 5 7307, 40780 #### [facility] [address] [place] [address], [place] GFR/1.73 sq M predicted among non-blacks MDRD vol rate/area (S/P/Bld) mL/min/{1.73_m2} Normal >60 [facility] Comment on above: Order Comment: No: D o not add to previous draw Performed By: #### 5 7307, 60750 #### [facility] [address] [place] [address], [place] Glucose mass conc 238 mg/dL High 70-100 [facility] Comment on above: Order Comment: No: D o not add to previous draw Performed By: #### 5 73, 57276 #### [facility] [address] [place] [address], [place] Potassium molar conc 3.9 mmol/L Normal 3.5-5.1 [facility] Comment on above: Order Comment: No: D o not add to previous draw Performed By: #### 5 7307, 46040 #### [facility] [address] [place] [address], [place] Sodium molar conc 137 mmol/L Normal 136-145 [facility] Comment on above: Order Comment: No: D o not add to previous draw Performed By: #### 5 7307, 40823 #### [facility] [address] [place] [address], [place] Urea nitrogen mass conc 21 mg/dL Normal 7-25 [facility] Comment on above: Order Comment: No: D o not add to previous draw Performed By: #### 5 7307, 60625 #### [facility] [address] [place] [address], [facility] CBC COMPLETE BLOOD COUNTon 04-30-2018 Erythrocyte distribution width Ratio (RBC) 12.9 % Normal 11.5-15.0 [facility] Comment on above: Order Comment: No: D o not add to previous draw Performed By: #### 5 7307, 84208 #### [facility] [address] [place] [address], [facility] Hematocrit Volume Fraction (Bld) 37.4 % Normal 36.0-45.0 [facility] Comment on above: Order Comment: No: D o not add to previous draw Performed By: #### 5 7307, 31879 #### [facility] [address] [place] [address], [facility] Hemoglobin mass conc (Bld) 12.2 g/dL Normal 12.0-15.0 [facility] Comment on above: Order Comment: No: D o not add to previous draw Performed By: #### 5 7307, 84574 #### [facility] [address] [place] [address], [facility] MCH Entitic mass (RBC) 29.5 pg Normal 27.0-33.0 [facility] Comment on above: Order Comment: No: D o not add to previous draw Performed By: #### 5 7307, 47439 #### [facility] [address] [place] [id number], [facility] MCHC mass conc (RBC) 32.6 g/dL Normal 32.0-35.0 [facility] Comment on above: Order Comment: No: D o not add to previous draw Performed By: #### 5 7307, 73293 #### [facility] [address] [place] [address], [facility] MCV Entitic volume (RBC) 90.6 fL Normal 82.0-98.0 [facility] Comment on above: Order Comment: No: D o not add to previous draw Performed By: #### 5 7307, 36238 #### [facility] [address] [place] [address], [facility] Nucleated RBC/100 WBC Ratio (Bld) 0 % Normal 0-0 [facility] Comment on above: Order Comment: No: D o not add to previous draw Performed By: #### 5 7307, 66480 #### [facility] [address] [place] [address], [facility] PLAT CNT 262 10*3/uL Normal 150-400 [facility] Comment on above: Order Comment: No: D o not add to previous draw Performed By: #### 5 7307, 61301 #### [facility] [address] [place] [address], [facility] RBC #/vol (Bld) 4.13 10*6/uL Normal 3.80-5.00 [facility] Comment on above: Order Comment: No: D o not add to previous draw Performed By: #### 5 7307, 05446 #### [facility] [address] [place] [address], [facility] WBC #/vol (Bld) 6.73 10*3/uL Normal 4.00-10.60 [facility] Comment on above: Order Comment: No: D o not add to previous draw Performed By: #### 5 7307, 01688 #### [facility] [address] [place] [address], [facility] LIPID PROFILEon 04-30-2018 Cholesterol in HDL mass conc 27 mg/dL Normal 23-92 [facility] Comment on above: Order Comment: No: D o not add to previous draw Result Comment: Slig ht variation in normal range could be due to gender and/or age. HDL CHOLESTEROL REFERENCE RANGE: 20 years and older Cardiovascular Risk > or =60 mg/dL Desirable 40 TO 59 mg/dL Low Risk <40 mg/dL High Risk Performed By: #### 5 7307, 06788 #### [facility] [address] [place] [address], [facility] Cholesterol in LDL mass conc 0 mg/dL Normal 0-130 [facility] Comment on above: Order Comment: No: D o not add to previous draw Result Comment: LDL IS A CALCULATION LDL IS ONLY VALID IF THE TRIG IS LESS THAN 400. Performed By: #### 5 7307, 53323 #### [facility] [address] [place] [address], [facility] Cholesterol mass conc 112 mg/dL Low 120-200 [facility] Comment on above: Order Comment: No: D o not add to previous draw Result Comment: CHOL ESTEROL REFERENCE RANGE: 20 YEARS AND OLDER CARDIOVASCULAR RISK Less than 200 mg/dl Low Risk 200 to 239 mg/dl Borderline Risk 240 mg/dl and greater High Risk Performed By: #### 5 7307, 19143 #### [facility] [address] [place] [address], [facility] Cholesterol.total/Cho lesterol in HDL mass ratio 4.1 {ratio} Normal .0-4.5 [facility] Comment on above: Order Comment: No: D o not add to previous draw Performed By: #### 5 7307, 90604 #### [facility] [address] [facility] [address], [facility] NON-HDL CHOLESTEROL 85 mg/dL Normal [facility] Comment on above: Order Comment: No: D o not add to previous draw Performed By: #### 5 7307, 92480 #### [facility] [address] [place] [address], [facility] Triglyceride mass conc 424 mg/dL High 40-149 [facility] Comment on above: Order Comment: No: D o not add to previous draw Result Comment: TRIG LYCERIDE REFERENCE RANGE: 20 YEARS AND OLDER CARDIOVASCULAR RISK LESS THAN 150 mg/dl LOW RISK 150 TO 199 mg/dl BORDERLINE RISK 200 mg/dl AND GREATER HIGH RISK Performed By: #### 5 7307, 39874 #### [facility] [address] [place] [address], [facility] VLDL CHOL 85 mg/dL High 0-40 [facility] Comment on above: Order Comment: No: D o not add to previous draw Performed By: #### 5 7307, 53854 #### [address] MAGNESIUM BLOODon 04-30-2018 Magnesium mass conc 1.8 mg/dL Low 1.9-2.7 [facility] Comment on above: Order Comment: No: D o not add to previous draw Performed By: #### 5 7307, 28951 #### [address] MRI BRAIN WO CONTRASTon 04-02 MRI BRAIN WO CONTRAST [facility] Department of Radiology [address] [place], [place] [id number] Patient Name: KYLE POWELL : 1955 Sex: F Age: Race: White Pt. Location: [place] [address] Patient Status: I Ordered Date: 04/28/2018 6:40:00 [...] findings. Electronically signed by:Cornelius Bennett. Transcribed by: [email or web address], User Resident: ADIS BARRETT Electronically Signed by: CORNELIUS BENNETT @ 05/01/2018 03:45 PM I personally read this/these film(s) with this resident Normal [facility] Comment on above: Order Comment: No: D o not add to previous draw PHOSPHORUS BLOODon 8 Phosphate mass conc 4.7 mg/dL Normal 2.5-5.0 [facility] Comment on above: Order Comment: No: D o not add to previous draw Performed By: #### 5 7307, 85925 #### [facility] [address] [place] [address], [facility] POC GLUCOSE LABon 04-30-2018 Glucose mass conc 302 mg/dL High 70-100 [facility] Comment on above: Performed By: #### 5 7307, 40484 #### [facility] [address] [place] [address], [place] Glucose mass conc 309 mg/dL High 70-100 [facility] Comment on above: Performed By: #### 5 7307, [id number] #### [facility] [address] [place] [address], [place] Glucose mass conc 387 mg/dL High 70-100 [facility] Comment on above: Performed By: #### 5 7307, 43591 #### [facility] [address] [place] [address], [place] Glucose mass conc 229 mg/dL High 70-100 [facility] Comment on above: Performed By: #### 5 7307, 37261 #### [facility] [address] [place] [address], [place] Glucose mass conc 329 mg/dL High 70-100 [facility] Comment on above: Performed By: #### 5 7307, 42130 #### [facility] [address] [place] [address], [place] BASIC METABOLIC PANELon 07-3 0 Calcium mass conc 8.8 mg/dL Normal 8.6-10.3 [facility] Comment on above: Order Comment: No: D o not add to previous draw Performed By: #### 5 0608 #### [facility] [address] [place] [address], [place] Chloride molar conc 103 mmol/L Normal 98-107 [facility] Comment on above: Order Comment: No: D o not add to previous draw Performed By: #### 5 0608 #### [facility] [address] [place] [address], [place] CO2 molar conc 20 mmol/L Low 21-31 [facility] Comment on above: Order Comment: No: D o not add to previous draw Performed By: #### 5 0608 #### [facility] [address] [place] [address], [facility] Creatinine mass conc 0.86 mg/dL Normal 0.60-1.20 [facility] Comment on above: Order Comment: No: D o not add to previous draw Performed By: #### 5 0608 #### [facility] [address] [place] [address], [place] GFR/1.73 sq M predicted among blacks MDRD vol rate/area (S/P/Bld) mL/min/{1.73_m2} Normal >60 [facility] Comment on above: Order Comment: No: D o not add to previous draw Performed By: #### 5 0608 #### [facility] [address] [place] [address], [place] GFR/1.73 sq M predicted among non-blacks MDRD vol rate/area (S/P/Bld) mL/min/{1.73_m2} Normal >60 [facility] Comment on above: Order Comment: No: D o not add to previous draw Performed By: #### 5 0608 #### [facility] [address] [place] [address], [facility] Glucose mass conc 266 mg/dL High 70-100 [facility] Comment on above: Order Comment: No: D o not add to previous draw Performed By: #### 5 0608 #### [facility] [address] [place] [address], [place] Potassium molar conc 4.0 mmol/L Normal 3.5-5.1 [facility] Comment on above: Order Comment: No: D o not add to previous draw Performed By: #### 5 0608 #### [facility] [address] [place] [address], [place] Sodium molar conc 133 mmol/L Low 136-145 [facility] Comment on above: Order Comment: No: D o not add to previous draw Performed By: #### 5 0608 #### [facility] [address] [place] [address], [facility] Urea nitrogen mass conc 20 mg/dL Normal 7-25 [facility] Comment on above: Order Comment: No: D o not add to previous draw Performed By: #### 5 0608 #### [facility] [address] [place], [place] [id number] [place] [address] CBC COMPLETE BLOOD COUNTon 0 04-29-2018 Erythrocyte distribution width Ratio (RBC) 12.9 % Normal 11.5-15.0 [facility] Comment on above: Order Comment: No: D o not add to previous draw Performed By: #### 5 0608 #### [facility] [address] [place] [address], [facility] Hematocrit Volume Fraction (Bld) 39.9 % Normal 36.0-45.0 [facility] Comment on above: Order Comment: No: D o not add to previous draw Performed By: #### 5 0608 #### [facility] [address] [place] [address], [facility] Hemoglobin mass conc (Bld) 12.8 g/dL Normal 12.0-15.0 [facility] Comment on above: Order Comment: No: D o not add to previous draw Performed By: #### 5 0608 #### [facility] [address] [place] [address], [facility] MCH Entitic mass (RBC) 29.6 pg Normal 27.0-33.0 [facility] Comment on above: Order Comment: No: D o not add to previous draw Performed By: #### 5 0608 #### [facility] [address] [place] [address], [facility] MCHC mass conc (RBC) 32.1 g/dL Normal 32.0-35.0 [facility] Comment on above: Order Comment: No: D o not add to previous draw Performed By: #### 5 0608 #### [facility] [address] [place] [address], [facility] MCV Entitic volume (RBC) 92.1 fL Normal 82.0-98.0 [facility] Comment on above: Order Comment: No: D o not add to previous draw Performed By: #### 5 0608 #### [facility] [address] [place] [address], [facility] Nucleated RBC/100 WBC Ratio (Bld) 0 % Normal 0-0 [facility] Comment on above: Order Comment: No: D o not add to previous draw Performed By: #### 5 0608 #### [facility] [address] [place] [address], [facility] PLAT CNT 267 10*3/uL Normal 150-400 [facility] Comment on above: Order Comment: No: D o not add to previous draw Performed By: #### 5 0608 #### [facility] [address] RBC #/vol (Bld) 4.33 10*6/uL Normal 3.80-5.00 [facility] Comment on above: Order Comment: No: D o not add to previous draw Performed By: #### 5 0608 #### [facility] [address] [place] [address], [facility] WBC #/vol (Bld) 7.66 10*3/uL Normal 4.00-10.60 [facility] Comment on above: Order Comment: No: D o not add to previous draw Performed By: #### 5 0608 #### [facility] [address] [place] [address], [facility] HEMOGLOBIN A1Con 04-29-2018 Hemoglobin A1c/Hemoglobin.total mass fraction (Bld) 13.7 % High 4.0-6.0 [facility] Comment on above: Order Comment: No: D o not add to previous draw Performed By: #### 5 0608 #### [facility] [address] [place] [address], [facility] Hemoglobin A1c/Hemoglobin.total mass fraction (Bld) 346 mg/dL High 70-126 [facility] Comment on above: Order Comment: No: D o not add to previous draw Performed By: #### 5 0608 #### [facility] [address] [place] [address], [facility] LIPID PROFILEon 04-29-2018 Cholesterol in HDL mass conc 25 mg/dL Normal 23-92 [facility] Comment on above: Order Comment: No: D o not add to previous draw Result Comment: Slig ht variation in normal range could be due to gender and/or age. HDL CHOLESTEROL REFERENCE RANGE: 20 years and older Cardiovascular Risk > or =60 mg/dL Desirable 40 TO 59 mg/dL Low Risk <40 mg/dL High Risk Performed By: #### 5 0608 #### [facility] [address] [facility] [place] [address], [facility] Cholesterol in LDL mass conc 'UNABLE TO CALC Normal 0-130 [facility] Comment on above: Order Comment: No: D o not add to previous draw Result Comment: LDL IS A CALCULATION LDL IS ONLY VALID IF THE TRIG IS LESS THAN 400. Performed By: #### 5 0608 #### [facility] [address] [place] [address], [facility] Cholesterol mass conc 115 mg/dL Low 120-200 [facility] Comment on above: Order Comment: No: D o not add to previous draw Result Comment: CHOL ESTEROL REFERENCE RANGE: 20 YEARS AND OLDER CARDIOVASCULAR RISK Less than 200 mg/dl Low Risk 200 to 239 mg/dl Borderline Risk 240 mg/dl and greater High Risk Performed By: #### 5 0608 #### [facility] [address] [place] [address], [facility] Cholesterol.total/Cho lesterol in HDL mass ratio 4.6 {ratio} High .0-4.5 [facility] Comment on above: Order Comment: No: D o not add to previous draw Performed By: #### 5 0608 #### [facility] [address] NON-HDL CHOLESTEROL 90 mg/dL Normal [facility] Comment on above: Order Comment: No: D o not add to previous draw Performed By: #### 5 0608 #### [facility] [address] [place] [address], [facility] Triglyceride mass conc 498 mg/dL High 40-149 [facility] Comment on above: Order Comment: No: D o not add to previous draw Result Comment: TRIG LYCERIDE REFERENCE RANGE: 20 YEARS AND OLDER CARDIOVASCULAR RISK LESS THAN 150 mg/dl LOW RISK 150 TO 199 mg/dl BORDERLINE RISK 200 mg/dl AND GREATER HIGH RISK Performed By: #### 5 0608 #### [facility] [address] VLDL CHOL 100 mg/dL High 0-40 [facility] Comment on above: Order Comment: No: D o not add to previous draw Performed By: #### 5 0608 #### [facility] [address] [facility] [place] [address], [facility] MAGNESIUM BLOODon 04-29-2018 Magnesium mass conc 1.8 mg/dL Low 1.9-2.7 [facility] Comment on above: Order Comment: No: D o not add to previous draw Performed By: #### 5 0608 #### [facility] [address] [facility] [place] [address], [facility] PHOSPHORUS BLOODon 8 Phosphate mass conc 5.5 mg/dL High 2.5-5.0 [facility] Comment on above: Order Comment: No: D o not add to previous draw Performed By: #### 5 0608 #### [facility] [address] [place] [address], [facility] POC GLUCOSE LABon 04-29-2018 Glucose mass conc 287 mg/dL High 70-100 [facility] Comment on above: Performed By: #### 5 7307, 55224 #### [facility] [address] [place] [address], [facility] Glucose mass conc 317 mg/dL High 70-100 [facility] Comment on above: Performed By: #### 5 0608 #### [facility] [address] [place] [address], [facility] Glucose mass conc 267 mg/dL High 70-100 [facility] Comment on above: Performed By: #### 5 0608 #### [facility] [address] [place] [address], [facility] Glucose mass conc 347 mg/dL High 70-100 [facility] Comment on above: Performed By: #### 8 5499 #### [facility] [address] [facility] [place] [address], [facility] APTTon 04-28-2018 aPTT Coag time (Bld) 28.1 s Normal 25.0-35.0 [facility] Comment on above: Order Comment: [...] THIS PURPOSE. Performed By: #### 5 7307, 29292 #### [facility] [address] [facility] [place] [address], [facility] CALCIUM IONIZED CBGLon 04-28 IONIZED CALCIUM 1.07 mmol/L Low 1.12-1.30 [facility] Comment on above: Performed By: #### 7 0066 #### [facility] [address] [facility]. [place], [place] [id number] [place] [address] CBC COMPLETE BLOOD COUNTon 0 04-28-2018 Erythrocyte distribution width Ratio (RBC) 12.8 % Normal 11.5-15.0 [facility] Comment on above: Order Comment: No: D o not add to previous draw Performed By: #### 5 0608 #### [facility] [address] [place] [address], [facility] Hematocrit Volume Fraction (Bld) 41.3 % Normal 36.0-45.0 [facility] Comment on above: Order Comment: No: D o not add to previous draw Performed By: #### 5 0608 #### [facility] [address] [place] [address], [facility] Hemoglobin mass conc (Bld) 13.8 g/dL Normal 12.0-15.0 [facility] Comment on above: Order Comment: No: D o not add to previous draw Performed By: #### 5 0608 #### [facility] [address] [place] [address], [facility] MCH Entitic mass (RBC) 30.1 pg Normal 27.0-33.0 [facility] Comment on above: Order Comment: No: D o not add to previous draw Performed By: #### 5 0608 #### [facility] [address] [place] [address], [facility] MCHC mass conc (RBC) 33.4 g/dL Normal 32.0-35.0 [facility] Comment on above: Order Comment: No: D o not add to previous draw Performed By: #### 5 0608 #### [facility] [address] [place] [address], [facility] MCV Entitic volume (RBC) 90.2 fL Normal 82.0-98.0 [facility] Comment on above: Order Comment: No: D o not add to previous draw Performed By: #### 5 0608 #### [facility] [address] [place] [address], [facility] Nucleated RBC/100 WBC Ratio (Bld) 0 % Normal 0-0 [facility] Comment on above: Order Comment: No: D o not add to previous draw Performed By: #### 5 0608 #### [facility] [address] [place] [address], [facility] PLAT CNT 261 10*3/uL Normal 150-400 [facility] Comment on above: Order Comment: No: D o not add to previous draw Performed By: #### 5 0608 #### [facility] [address] [place] [address], [facility] RBC #/vol (Bld) 4.58 10*6/uL Normal 3.80-5.00 [facility] Comment on above: Order Comment: No: D o not add to previous draw Performed By: #### 5 0608 #### [facility] [address] [facility] [place] [address], [facility] WBC #/vol (Bld) 7.28 10*3/uL Normal 4.00-10.60 [facility] Comment on above: Order Comment: No: D o not add to previous draw Performed By: #### 5 0608 #### [facility] [address] [facility] COMP METABOLIC PANELon 04-28 Albumin mass conc 3.5 g/dL Normal 3.5-5.7 [facility] Comment on above: Order Comment: No: D o not add to previous draw Performed By: #### 4 1000, 03235, 44968, 57998 #### [facility] [address] [facility] ALKALINE PHOSPH 68 IU/L Normal 34-104 [facility] Comment on above: Order Comment: No: D o not add to previous draw Performed By: #### 4 1000, 25639, 66929, 84593 #### [facility] [address] [place] [address], [facility] ALT enzyme act/vol 22 U/L Normal 7-52 [facility] Comment on above: Order Comment: No: D o not add to previous draw Performed By: #### 4 1000, 83200, 50264, 66210 #### [facility] [address] [place] [address], [place] AST enzyme act/vol 19 U/L Normal 13-39 [facility] Comment on above: Order Comment: No: D o not add to previous draw Performed By: #### 4 1000, 09969, 00605, 10364 #### [facility] [address] [place] [address], [place] Bilirubin mass conc 0.4 mg/dL Normal 0.3-1.0 [facility] Comment on above: Order Comment: No: D o not add to previous draw Performed By: #### 4 1000, 83086, 89152, 51310 #### [facility] [address] [place] [address], [place] Calcium mass conc 8.9 mg/dL Normal 8.6-10.3 [facility] Comment on above: Order Comment: No: D o not add to previous draw Performed By: #### 4 1000, 96628, 69861, 82183 #### [facility] [address] [place] [address], [place] Chloride molar conc 99 mmol/L Normal 98-107 [facility] Comment on above: Order Comment: No: D o not add to previous draw Performed By: #### 4 1000, 80214, 52547, 68874 #### [facility] [address] [place] [address], [place] CO2 molar conc 21 mmol/L Normal 21-31 [facility] Comment on above: Order Comment: No: D o not add to previous draw Performed By: #### 4 1000, 01278, 33758, 80024 #### [facility] [address] [place] [address], [place] Creatinine mass conc 0.94 mg/dL Normal 0.60-1.20 [facility] Comment on above: Order Comment: No: D o not add to previous draw Performed By: #### 4 1000, 28897, 96625, 78722 #### [facility] [address] [place] [address], [place] GFR/1.73 sq M predicted among blacks MDRD vol rate/area (S/P/Bld) mL/min/{1.73_m2} Normal >60 [facility] Comment on above: Order Comment: No: D o not add to previous draw Performed By: #### 4 1000, 66419, 75481, 63803 #### [facility] [address] [place] [address], [place] GFR/1.73 sq M predicted among non-blacks MDRD vol rate/area (S/P/Bld) mL/min/{1.73_m2} Normal >60 [facility] Comment on above: Order Comment: No: D o not add to previous draw Performed By: #### 4 1000, 44213, 36481, 00122 #### [facility] [address] [place] [address], [facility] Glucose mass conc 317 mg/dL High 70-100 [facility] Comment on above: Order Comment: No: D o not add to previous draw Performed By: #### 4 1000, 31400, 49893, 18600 #### [facility] [address] [place] [address], [place] Potassium molar conc 4.3 mmol/L Normal 3.5-5.1 [facility] Comment on above: Order Comment: No: D o not add to previous draw Performed By: #### 4 1000, 87982, 36851, 79242 #### [facility] [address] [place] [address], [place] Protein mass conc 6.7 g/dL Normal 6.0-8.3 [facility] Comment on above: Order Comment: No: D o not add to previous draw Performed By: #### 4 1000, 23544, 69922, 33230 #### [facility] [address] [place] [address], [place] Sodium molar conc 131 mmol/L Low 136-145 [facility] Comment on above: Order Comment: No: D o not add to previous draw Performed By: #### 4 1000, 84020, 68763, 32821 #### [facility] [address] [place], [place] [id number] [place] [address] Urea nitrogen mass conc 17 mg/dL Normal 7-25 [facility] Comment on above: Order Comment: No: D o not add to previous draw Performed By: #### 4 1000, 60307, 88911, 89209 #### [facility] [address] [place], [place] [id number] [place] [address] CTA HEADon 04-28-2018 CTA HEAD [facility] Department of Radiology [address] [place] [phone] Patient Name: KYLE POWELL : 1955 Sex: [...] findings. Electronically signed by:Leonides Velásquez. Transcribed by: [email or web address], User Resident: ANNY SCHAFER Electronically Signed by: LEONIDES VELÁSQUEZ @ 04/29/2018 09:17 AM I personally read this/these film(s) with this resident Normal [facility] Comment on above: Order Comment: No: D o not add to previous draw CTA NECKon 04-28-2018 CTA NECK [facility] Department of Radiology [address] [place] [phone] Patient Name: KYLE POWELL : 1955 [...] findings. Electronically signed by:Leonides Velásquez. Transcribed by: [email or web address], User Resident: ANNY SCHAFER Electronically Signed by: LEONIDES VELÁSQUEZ @ 04/29/2018 09:17 AM I personally read this/these film(s) with this resident Normal [facility] MAGNESIUM BLOODon 04-28-2018 Magnesium mass conc 1.7 mg/dL Low 1.9-2.7 [facility] Comment on above: Order Comment: No: D o not add to previous draw Performed By: #### 4 1000, 52089, 55042, 85805 #### [facility] [address] [place] [address], [facility] PHOSPHORUS BLOODon 8 Phosphate mass conc 4.4 mg/dL Normal 2.5-5.0 [facility] Comment on above: Order Comment: No: D o not add to previous draw Performed By: #### 4 1000, 93877, 39216, 93437 #### [facility] [address] [place] [address], [facility] POC GLUCOSE LABon 04-28-2018 Glucose mass conc 325 mg/dL High 70-100 [facility] Comment on above: Performed By: #### 8 5499 #### [facility] [address] [place] [address], [facility] PROTHROMBIN TIMEon 8 INR Coag RelTime (PPP) 1.03 {INR} Normal 0.91-1.16 [facility] Comment on above: Order Comment: [...] CHEST 1995;[id number]. Performed By: #### 5 7307, 11004 #### [facility] [address] Prothrombin time (PT) Coag time (PPP) 13.5 s Normal 12.3-14.8 [facility] Comment on above: Order Comment: No: D o not add to previous draw Result Comment: ALL RESULTS MUST BE INTERPRETED WITH RESPECT TO BLOOD DRAWING ARTIFACT OR DILUTION ERROR OF ANTICOAGULANT AT THE TIME OF SAMPLING. Performed By: #### 5 7307, 57491 #### [facility] [address] TROPONIN-Ion 04-28-2018 Troponin I.cardiac mass conc 0.03 ng/mL Normal 0.00-0.04 [facility] Comment on above: Result Comment: REFE RENCE RANGES: 0.00 - 0.04 ng/ml NORMAL 0.05 - 0.50 ng/ml INDETERMINATE > 0.50 ng/ml CONSISTENT WITH AN M.I. Performed By: #### 4 1000, 34133, 97679, 60321 #### [facility] [address] [place] [address], [facility] Moustapha 10-26-2017 CNOV Office Visit (GASTBD) SHERRY,COOKIE NE C ([id number]) 1955 FDate Time Provider Department10/26/17 8:20 AM CARLOS EDUARDO VAN During your visit today, we recorded the following information about you: Temperature Pulse Respiration Blood pressure 97.7 degrees 59/minute 16/minute 136/71 Weight Height 110.7 kg 1.6 Liv Bailey ACCOUNTING PROFESSIONAL 10/26/2017 7:[facility] HOURS: Lab is [...] at least one day prior to the scheduledexam.Ely-Bloomenson [facility] Room [facility]-SRadiology hours of operation [...] limited to:? Cold and Flu symptoms? Conjunctivitis ([facility])? Ear and throat infections? Minor bumps and cuts? Seasonal allergies? Simple sprains and strains? Skin rashes? Sinus infections? Urinary tract infections (Patients must be at least 5 years old)? Upper respiratory infections.To schedule a Specialty appointment or schedule a test, please [phone], and the mottler operator will will assist you.Sheri Bailey LPN [...] and Past Histories independentlygathered by the clinical wan support specialist and the remaining scribed noteaccurately [...] dysphagiaHistory coronary artery disease status post multiple NV's with history ofcoronary artery stent placementInsulin-dependen t diabetes mellitusPLAN:Patient is now eat low residue dietVirtual visit in 3 weeks-Will scheduleThe majority of the visit was spent counseling and/or coordinating care for thepatient. Oioj-xx-fycm time was 60 minutes.STAFF PHYSICIANDaSita White Provider: SELF [200]Allergies As of Date: 10/26/2017(No Known Allergies)Date Reviewed: 10/26/2017Reviewed by: Sheri Bailey LPN - Fully AssessedReason for Visit: Consult [502]Primary Visit Diagnosis:Diarrhea, unspecified type [R19.7] Other Visit Diagnoses:IDDM (insulin dependent diabetes mellitus) (HCC) [E11.9, Z79.4] CAD in [place] artery [I25.10]Prescriptions as of 10/26/2017 Sig: DIPHENOXYLATE-ATROPINE [...] Other instructions from your clinician: [facility] FACTS: Room 14N LAB HOURS: Lab [...] one day prior to the scheduled exam. [facility] RADIOLOGY: Room 101-S Radiology hours of [...] TIMES, visit the following link for details. [email or web address] [0]=[facility]AND Reasons for visits limited to: ? Cold and Flu symptoms ? Conjunctivitis ([facility]) ? Ear and throat infections ? Minor bumps and cuts ? Seasonal allergies ? Simple sprains and strains ? Skin rashes ? Sinus infections ? Urinary tract infections (Patients must be at least 5 years old) ? Upper respiratory infections. To schedule a Specialty appointment or schedule a test, please call [phone], and the mottler operator will will assist you. Status:Closed by CARLOS EDUARDO VAN MD on 10/26/17 [facility] PROGRESSon 10-26-2017 PROGRESS HNO ID: [id number] thor: Sheri Bailey LPNService: (none)Author Type: (none)Type: [...] and Past Histories independentlygathered by the clinical wan support specialist and the remaining scribed noteaccurately [...] dysphagiaHistory coronary artery disease status post multiple NV's with history ofcoronary artery stent placementInsulin-dependen t diabetes mellitusPLAN:Patient is now eat low residue dietVirtual visit in 3 weeks-Will scheduleThe majority of the visit was spent counseling and/or coordinating carefor the patient. Xpka-sc-loia time was 60 minutes.STAFF PHYSICIANCarlos Eduardo Van MD Normal [facility] Vital Signs Date Time Vital Sign Value Performing Clinician Facility 12-22-2024 11:44-0400 Body height 157.5 cm Faraz Osman MD Work Phone: [facility] 12-22-2024 11:44-0400 Body mass index (BMI) [Ratio] 36.4 kg/m2 Faraz Osman MD Work Phone: [facility] 12-22-2024 11:44-0400 Body weight 90.27 kg Faraz Osman MD Work Phone: [facility] 12-22-2024 11:44-0400 Diastolic blood pressure 72 mm[Hg] Faraz Osman MD Work Phone: [facility] 12-22-2024 11:44-0400 Heart rate 64 /min Faraz Osman MD Work Phone: [facility] 12-22-2024 11:44-0400 SaO2% (BldA) [Mass fraction] 97 % Faraz Osman MD Work Phone: [facility] 12-22-2024 11:44-0400 Systolic blood pressure 128 mm[Hg] Faraz Osman MD Work Phone: [facility] 12-08-2024 15:55-0400 Body height 157.5 cm Faraz Osman MD Work Phone: [facility] 12-08-2024 15:55-0400 Body mass index (BMI) [Ratio] 36.95 kg/m2 Faraz Osman MD Work Phone: [facility] 12-08-2024 15:55-0400 Body weight 91.63 kg Faraz Osman MD Work Phone: [facility] 12-08-2024 15:55-0400 Diastolic blood pressure 74 mm[Hg] Faraz Osman MD Work Phone: [facility] 12-08-2024 15:55-0400 Heart rate 91 /min Faraz Osman MD Work Phone: [facility] 12-08-2024 15:55-0400 SaO2% (BldA) [Mass fraction] 97 % Faraz Osman MD Work Phone: [facility] 12-08-2024 15:55-0400 Systolic blood pressure 136 mm[Hg] Faraz Osman MD Work Phone: [facility] 09-29-2024 14:21-0500 Body height 157.5 cm Faraz Osman MD Work Phone: [facility] 09-29-2024 14:21-0500 Body mass index (BMI) [Ratio] 37.68 kg/m2 Faraz Osman MD Work Phone: [facility] 09-29-2024 14:21-0500 Body weight 93.44 kg Faraz Osman MD Work Phone: [facility] 09-29-2024 14:21-0500 Diastolic blood pressure 78 mm[Hg] Faraz Osman MD Work Phone: [facility] 09-29-2024 14:21-0500 Heart rate 77 /min Faraz Osman MD Work Phone: [facility] 09-29-2024 14:21-0500 SaO2% (BldA) [Mass fraction] 99 % Faraz Osman MD Work Phone: [facility] 09-29-2024 14:21-0500 Systolic blood pressure 126 mm[Hg] Faraz Osman MD Work Phone: [facility] 09-10-2024 11:26-0500 Body height 157.5 cm Faraz Osman MD Work Phone: [facility] 09-10-2024 11:26-0500 Body mass index (BMI) [Ratio] 37.13 kg/m2 Faraz Osman MD Work Phone: [facility] 09-10-2024 11:26-0500 Body weight 92.08 kg Faraz Osman MD Work Phone: [facility] 09-10-2024 11:26-0500 Diastolic blood pressure 70 mm[Hg] Faraz Osman MD Work Phone: [facility] 09-10-2024 11:26-0500 Heart rate 74 /min Faraz Osman MD Work Phone: [facility] 09-10-2024 11:26-0500 SaO2% (BldA) [Mass fraction] 97 % Faraz Osman MD Work Phone: [facility] 09-10-2024 11:26-0500 Systolic blood pressure 128 mm[Hg] Faraz Osman MD Work Phone: [facility] 09-03-2024 08:35-0500 Body height 157.5 cm Faraz Osman MD Work Phone: [facility] 09-03-2024 08:35-0500 Body mass index (BMI) [Ratio] 37.31 kg/m2 Faraz Osman MD Work Phone: [facility] 09-03-2024 08:35-0500 Body weight 92.53 kg Faraz Osman MD Work Phone: [facility] 09-03-2024 08:35-0500 Diastolic blood pressure 84 mm[Hg] Faraz Osman MD Work Phone: [facility] 09-03-2024 08:35-0500 Heart rate 83 /min Faraz Osman MD Work Phone: [facility] 09-03-2024 08:35-0500 SaO2% (BldA) [Mass fraction] 97 % Faraz Osman MD Work Phone: [facility] 09-03-2024 08:35-0500 Systolic blood pressure 136 mm[Hg] Faraz Osman MD Work Phone: [facility] 08-11-2024 14:45-0500 Body mass index (BMI) [Ratio] 38.19 kg/m2 Christy Hemmer PA Work Phone: [facility] 08-11-2024 14:45-0500 Body weight 94.71 kg Christy Hemmer PA Work Phone: [facility] 08-11-2024 14:45-0500 Diastolic blood pressure 70 mm[Hg] Christy Hemmer PA Work Phone: [facility] 08-11-2024 14:45-0500 Heart rate 89 /min Christy Hemmer PA Work Phone: [facility] 08-11-2024 14:45-0500 Respiratory rate 17 /min Christy Hemmer PA Work Phone: [facility] 08-11-2024 14:45-0500 SaO2% (BldA) [Mass fraction] 97 % Christy Hemmer PA Work Phone: [facility] 08-11-2024 14:45-0500 Systolic blood pressure 120 mm[Hg] Christy Hemmer PA Work Phone: [facility] 07-09-2024 14:51-0400 Body height 157.5 cm Darrel Edwards MANAGER [employer] Work Phone: [facility] 07-09-2024 14:51-0400 Body mass index (BMI) [Ratio] 38.41 kg/m2 Darrel Edwards MANAGER [employer] Work Phone: [facility] 07-09-2024 14:51-0400 Body weight 95.25 kg Darrel Edwards MANAGER [employer] Work Phone: [facility] 07-09-2024 14:51-0400 Diastolic blood pressure 88 mm[Hg] Darrel Edwards MANAGER [employer] Work Phone: [facility] 07-09-2024 14:51-0400 Heart rate 65 /min Darrel Edwards MANAGER [employer] Work Phone: [facility] 07-09-2024 14:51-0400 SaO2% (BldA) [Mass fraction] 97 % Darrel Edwards MANAGER [employer] Work Phone: [facility] 07-09-2024 14:51-0400 Systolic blood pressure 138 mm[Hg] Darrel Edwards MANAGER [employer] Work Phone: [facility] 06-11-2024 14:11-0400 Body height 157.5 cm Faraz Osman MD Work Phone: [facility] 06-11-2024 14:11-0400 Body mass index (BMI) [Ratio] 38.59 kg/m2 Faraz Osman MD Work Phone: [facility] 06-11-2024 14:11-0400 Body weight 95.71 kg Faraz Osman MD Work Phone: [facility] 06-11-2024 14:11-0400 Diastolic blood pressure 70 mm[Hg] Faraz Osman MD Work Phone: [facility] 06-11-2024 14:11-0400 Heart rate 90 /min Faraz Osman MD Work Phone: [facility] 06-11-2024 14:11-0400 SaO2% (BldA) [Mass fraction] 96 % Faraz Osman MD Work Phone: [facility] 06-11-2024 14:11-0400 Systolic blood pressure 126 mm[Hg] Faraz Osman MD Work Phone: [facility] 11-06-2023 14:09-0500 Body height 157.5 cm Jerson Kumari DO Work Phone: [facility] 11-06-2023 14:09-0500 Body mass index (BMI) [Ratio] 39.87 kg/m2 Jerson Kumari DO Work Phone: [facility] 11-06-2023 14:09-0500 Body weight 98.88 kg Jerson Kumari DO Work Phone: [facility] 12-02-2022 13:40-0500 Body height 160.02 cm Yoana Drew Other [facility] Other 12-02-2022 13:40-0500 Body mass index (BMI) [Ratio] 39.85 kg/m2 Yoana Drew Other [facility] Other 12-02-2022 13:40-0500 Body temperature 98.4 [degF] Yoana Drew Other [facility] Other 12-02-2022 13:40-0500 Body weight 102.06 kg Yoana Drew Other [facility] Other 12-02-2022 13:40-0500 Diastolic blood pressure 98 mm[Hg] Yoana Drew Other [facility] Other 12-02-2022 13:40-0500 Respiratory rate 18 /min Yoana Drew Other [facility] Other 12-02-2022 13:40-0500 SaO2% (BldA) [Mass fraction] 97 % Yoana Drew Other [facility] Other 12-02-2022 13:40-0500 Systolic blood pressure 160 mm[Hg] Yoana Drew Other [facility] Other 03-22-2022 09:34-0400 Body temperature 97.8 [degF] II Faraz Dawson Work Phone: [facility] 03-22-2022 09:34-0400 Body weight 100.69 kg II Faraz Osman Work Phone: [facility] 03-22-2022 09:34-0400 Diastolic blood pressure 78 mm[Hg] II Faraz Osman Work Phone: [facility] 03-22-2022 09:34-0400 Heart rate 78 /min II Faraz Osman Work Phone: [facility] 03-22-2022 09:34-0400 Respiratory rate 18 /min II Faraz Osman Work Phone: [facility] 03-22-2022 09:34-0400 SaO2% (BldA) [Mass fraction] 98 % II Faraz Osman Work Phone: [facility] 03-22-2022 09:34-0400 Systolic blood pressure 169 mm[Hg] II Faraz Osman Work Phone: [facility] 02-20-2022 11:52-0400 Body temperature 98.2 [degF] II Faraz Osman Work Phone: [facility] 02-20-2022 11:52-0400 Body weight 101.2 kg II Faraz Osman Work Phone: [facility] 02-20-2022 11:52-0400 Diastolic blood pressure 60 mm[Hg] II Faraz Osman Work Phone: [facility] 02-20-2022 11:52-0400 Heart rate 77 /min II Faraz Osman Work Phone: [facility] 02-20-2022 11:52-0400 Respiratory rate 18 /min II Faraz Osman Work Phone: [facility] 02-20-2022 11:52-0400 SaO2% (BldA) [Mass fraction] 97 % II Faraz Osman Work Phone: [facility] 02-20-2022 11:52-0400 Systolic blood pressure 177 mm[Hg] II Faraz Osman Work Phone: [facility] 01-18-2022 13:43-0400 Body temperature 98.8 [degF] II Faraz Osman Work Phone: [facility] 01-18-2022 13:43-0400 Body weight 102 kg II Faraz Osman Work Phone: [facility] 01-18-2022 13:43-0400 Diastolic blood pressure 72 mm[Hg] II Faraz Osman Work Phone: [facility] 01-18-2022 13:43-0400 Heart rate 80 /min II Faraz Osman Work Phone: [facility] 01-18-2022 13:43-0400 Respiratory rate 22 /min II Faraz Osman Work Phone: [facility] 01-18-2022 13:43-0400 SaO2% (BldA) [Mass fraction] 98 % II Faraz Osman Work Phone: [facility] 01-18-2022 13:43-0400 Systolic blood pressure 169 mm[Hg] II Faraz Osman Work Phone: [facility] 01-12-2022 13:02-0400 Body temperature 98 [degF] II Faraz Osman Work Phone: [facility] 01-12-2022 13:02-0400 Body weight 101.15 kg II Faraz Osman Work Phone: [facility] 01-12-2022 13:02-0400 Diastolic blood pressure 82 mm[Hg] II Faraz Osman Work Phone: [facility] 01-12-2022 13:02-0400 Heart rate 72 /min II Faraz Osman Work Phone: [facility] 01-12-2022 13:02-0400 Systolic blood pressure 177 mm[Hg] II Faraz Osman Work Phone: [facility] 12-20-2021 12:20-0400 Diastolic blood pressure 50 mm[Hg] II Faraz Osman Work Phone: [facility] 12-20-2021 12:20-0400 Heart rate 62 /min II Faraz Osman Work Phone: [facility] 12-20-2021 12:20-0400 Respiratory rate 16 /min II Faraz Osman Work Phone: [facility] 12-20-2021 12:20-0400 SaO2% (BldA) [Mass fraction] 99 % II Faraz Osman Work Phone: [facility] 12-20-2021 12:20-0400 Systolic blood pressure 140 mm[Hg] II Faraz Osman Work Phone: [facility] 12-20-2021 09:24-0400 Body height 160.02 cm II Faraz Osman Work Phone: [facility] 12-20-2021 09:24-0400 Body mass index (BMI) [Ratio] 40.9 kg/m2 II Faraz Osman Work Phone: [facility] 12-20-2021 09:24-0400 Body weight 104.77 kg II Faraz Osman Work Phone: [facility] 12-20-2021 06:25-0400 Body temperature 98.6 [degF] II Faraz Osman Work Phone: [facility] 11-25-2021 11:42-0500 Body weight 102.96 kg II Faraz Osman Work Phone: [facility] 11-25-2021 11:42-0500 Diastolic blood pressure 101 mm[Hg] II Faraz Osman Work Phone: [facility] 11-25-2021 11:42-0500 Heart rate 84 /min II Faraz Osman Work Phone: [facility] 11-25-2021 11:42-0500 Respiratory rate 16 /min II Faraz Osman Work Phone: [facility] 11-25-2021 11:42-0500 SaO2% (BldA) [Mass fraction] 96 % II Faraz Osman Work Phone: [facility] 11-25-2021 11:42-0500 Systolic blood pressure 188 mm[Hg] II Faraz Osman Work Phone: [facility] 11-25-2021 11:10-0500 Body height 158.75 cm II Faraz Dawson Work Phone: [facility] Encounters Encounter Date Encounter Type Care [...] Not Available Start: 12-11-2024 End: 12-11-2024 ambulatory [facility] Start: 12-08-2024 End: 12-08-2024 Office outpatient visit [...] FU x1 Start: 11-27-2024 End: 11-27-2024 ambulatory [facility] Start: 11-26-2024 End: 11-26-2024 ambulatory [facility] Start: 11-26-2024 End: 11-26-2024 Encounter for other preprocedural examination [facility] Start: 09-29-2024 End: 09-29-2024 Office outpatient visit [...] Start: 09-29-2024 End: 09-29-2024 Bamboo flowsheet Faraz Osamn MD Work Phone: [facility] Start: [...] 09-19-2024 End: 09-19-2024 Bamboo flowsheet Oswaldo Brody [employer] [facility] Start: 09-19-2024 End: 09-19-2024 Bamboo flowsheet Oswaldo Brody [facility] [facility] Start: 09-19-2024 End: 09-19-2024 Treatment Oswaldo Brody [employer] [facility] Comment on above: Balance disorder (Pr imary Dx); Frequent falls Start: 09-16-2024 End: 09-17-2024 Treatment Oswaldo Brody [employer] [facility] Comment on above: Balance disorder (Pr imary Dx); Frequent falls Start: 09-16-2024 End: 09-16-2024 Bamboo flowsheet Oswaldo Brody [employer] [facility] Start: 09-16-2024 End: 09-16-2024 Bamboo flowsheet Oswaldo Brody [employer] [facility] Start: 09-15-2024 End: 09-15-2024 [...] Frequent falls Start: 09-10-2024 End: 09-10-2024 ambulatory [facility] Start: 09-10-2024 End: 09-10-2024 Assay of hemosiderin, [...] neuropathy, with long-term current use of insulin ([facility]); Estrogen deficiency; Breast screening Start: 09-10-2024 End: 09-10-2024 ambulatory FARAZ OSMAN Not Available Start: 09-09-2024 End: 09-09-2024 Treatment Oswaldo Brody [employer] [facility] Comment on above: Balance [...] neuropathy, with long-term current use of insulin ([facility]); 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; History of stroke Start: 09-03-2024 End: 09-03-2024 ambulatory FARAZHOMER OSMAN Not Available Start: 09-02-2024 End: 09-02-2024 Bamboo flowsheet Oswaldo Brody [employer] [facility] Start: 09-02-2024 End: 09-02-2024 Bamboo flowsheet Oswaldo Brody [employer] [facility] Start: 09-02-2024 End: 09-02-2024 Treatment Oswaldo Brody [employer] [facility] Comment on above: Balance disorder (Pr imary Dx); Frequent falls Start: 08-26-2024 End: 08-26-2024 Treatment Oswaldo Brody [employer] [facility] Comment on above: Balance [...] Office outpatient visit 25 minutes Darrel Edwards MANAGER [employer] Work Phone: [facility] Comment on [...] female breast (CMS/HCC); Atherosclerotic heart disease of [place] coronary artery with unspecified angina pectoris (CMS/HCC) [...] Available Start: 02-14-2024 ambulatory FARAZ Lynn DAWSON [facility] Start: 02-12-2024 End: 02-14-2024 Emergency department patient visit FARAZ B DAWSON [facility] Start: 02-11-2024 End: 02-11-2024 ambulatory [...] Start: 11-06-2023 End: 03-10-2024 ambulatory FARAZ OSMAN Facility:[facility] Start: 11-06-2023 End: 03-10-2024 Recurring FARAZ OSMAN [facility] Start: 11-05-2023 Chart abstracting Jerson yarbrough DO Work Phone: [facility] Start: 02-14-2023 End: 02-14-[address] FARAZ OSMAN Facility: Start: 01-04-2023 End: 01-05-[address] FARAZ OSMAN Facility:[facility] Start: 12-02-2022 End: 12-02-2022 ambulatory Yoana Drew Other [facility] Other Start: 12-02-2022 Office outpatient vi sit 15 minutes Yoana Drew [facility] [place] Start: 11-06-2022 End: 11-07-[address] GARRETT MCDONALD Facility:[facility] Start: 07-25-2022 End: 07-26-[address] FARAZ OSMAN Facility:[facility] Start: 06-13-2022 End: 06-14-[address] FARAZ OSMNA Facility:[facility] Start: 05-29-2022 End: 05-29-2022 ambulatory KAROLINE SHAW . Facility:[facility] Start: 05-15-2022 End: 10-11-2022 Recurring FARAZ OSMAN [facility] Start: 03-22-2022 End: 03-22-2022 ambulatory Faraz Osman Facility:[facility] Start: 03-22-2022 End: 03-22-2022 Registered Recurring II Faraz Osman Work Phone: [facility] Start: 03-07-2022 End: 03-08-[address] FARAZ OSMAN Facility: Start: 02-20-2022 End: 02-20-2022 Registered Recurring II [facility]az[facility]omer Osman [facility] [place] Start: 02-14-2022 End: 02-14-2022 Registered Recurring II Faarz Osman [facility] [place] Start: 01-18-2022 End: 01-18-2022 Registered Recurring II Faraz Osman Work Phone: [facility] Start: 01-12-2022 End: 01-12-2022 Registered Recurring II Farazhomer Osman Work Phone: [facility] Start: 12-20-2021 End: 12-20-2021 Admission to same day surgery center II Farazhomer Osman [facility] [place] [facility] [place] Start: 12-16-2021 End: 12-16-2021 Patient encounter procedure II Faraz Osman Work Phone: [facility] Start: 12-06-2021 End: 12-06-2021 Patient encounter procedure II Faraz Osman Work Phone: [facility] Start: 11-25-2021 Registered Recurring II Faraz Osman [facility] [place] Start: 11-14-2018 End: 11-18-2018 Evaluation and management of inpatient FARAZ DAWSON Facility:[facility] Start: 09-05-2018 End: 09-07-2018 Evaluation and management of inpatient JONAH SANABRIA Facility:[facility] Start: 04-28-2018 End: 05-03-2018 Evaluation and management of inpatient WILMAR GIFFORDEY Facility:[facility] Start: 10-26-2017 End: 10-26-2017 Ambulatory CARLOS EDUARDO VAN [facility] Procedures Date Procedure Procedure Detail Performing Clinician Start: 12-24-2024 NM CALE PERF SPECT REST STR Generic External Data Provider Start: 12-22-2024 Hemoglobin glycosylated a1c Faraz Osman MD Work Phone: Start: 09-10-2024 Hemoglobin glycosylated a1c Faraz Osman MD Work Phone: Start: 07-09-2024 Removal impacted cer umen irrigation/lvg unilat Darrel Edwards MANAGER [employer] Work Phone: Start: 06-11-2024 Hemoglobin glycosylated a1c [...] CORONARY ARTERY, ONE ARTERY, PERC APPROACH ANA CORMIER Start: 09-06-2018 FLUOROSCOPY OF MULT COR ART USING L OSM CONTRAST JENNIFER CORMIER Start: 09-06-2018 MEASURE OF CARDIAC S AMPL \T\ PRESSURE, L HEART, PERC APPROACH JENNIFER CORMIER Start: 04-29-2018 INTRODUCE OF OTH THE RAP SUBST INTO RESP TRACT, VIA OPENING MIGUEL DEMPSEY Plan of Treatment Date Care Activity Detail Author Start: 07-07-2030 Screening for malign ant neoplasm of colon [facility] Start: 04-15-2025 Glaucoma screening Diabetes: R etinopathy Screening [facility] Start: 03-24-2025 Hemoglobin A1c measurement Diabetes: Hemoglobin A1C [facility] Start: 02-03-2025 Urine screening for protein Diabetes: Urine Protein Screening [facility] Start: 01-08-2025 End: 01-08-2025 Patient encounter procedure 01/08/2025 10:15 AM EDT Office Visit [facility] [address] [place] [address] Faraz Osman MD [address] [place] [address] [facility] Start: 12-22-2024 End: 12-22-2024 Patient encounter procedure 12/22/2024 11:45 AM EDT Office Visit [facility] [address] [place] [address] Faraz Osman MD [address] [place] [address] [facility] Start: 12-09-2024 Hemoglobin A1c [...] [address] [place] [address] [facility] [place] [facility] Start: 09-29-2024 End: 09-29-2024 Patient encounter procedure [facility] Comment on above: Arrived Start: 09-25-2024 End: 09-25-2024 ambulatory 09/25/2024 2:30 PM EST Treatment [facility] [address] [place] [address] Mary Ramsay, PT [facility] Start: 09-23-2024 End: 09-23-2024 ambulatory 09/23/2024 11:30 AM EST Treatment [facility] [address] [place] [address] Mary Ramsay, PT [facility] Start: 09-19-2024 End: 09-19-2024 ambulatory [facility] Comment on above: Arrived Start: 09-16-2024 End: 09-16-2024 ambulatory [facility] Comment on above: Arrived Start: 09-12-2024 End: 09-12-2024 Professional / ancillary services management 09/12/2024 10:00 AM EST Ancillary Procedure [facility] MR [address] [facility] [address] [place] [id number] [facility] MR Start: 09-11-2024 End: 09-11-2024 ambulatory [facility] PT Start: 09-10-2024 End: 09-10-2024 Patient encounter procedure 09/10/2024 2:15 PM EST Office Visit [facility] [address] [facility] [address] [place] [phone] Faraz Osman MD [address] [facility] [address] [place] [address] [facility] Start: 09-10-2024 End: 09-10-2025 [...] Visit [facility] [address] [facility] [address] [place] [phone] Faraz Osman MD [address] [facility] [address] [place] [address] [facility] Start: 09-09-2024 End: 09-09-2024 ambulatory [facility] PT Start: 09-05-2024 End: 09-05-2024 ambulatory [facility] Comment on above: Arrived Start: 09-03-2024 End: 09-03-2025 Comprehensive metabolic 2000 panel - Serum or Plasma Comprehensive metabolic panel Lab Routine General weakness Type 2 diabetes mellitus with diabetic neuropathy, with long-term current use of insulin ([facility]) Expected: 09/03/2024 (Approximate), Expires: 09/03/2025 [facility] Comment on above: Expected: 09/03/2024 (Approximate), Expires: 09/03/2025 Start: 09-03-2024 End: 09-03-2025 TSH W/REFLEX TO FT4 TSH W/REFLEX TO FT4 Lab Routine General weakness Type 2 diabetes mellitus with diabetic neuropathy, with long-term current use of insulin ([facility]/HCC) Expected: 09/03/2024 (Approximate), Expires: 09/03/2025 [facility] Comment on above: Expected: 09/03/2024 (Approximate), Expires: 09/03/2025 Start: 09-03-2024 End: 09-03-2024 Patient encounter procedure 09/03/2024 8:30 AM EST Office Visit [facility] [address] [facility] [address] [place] [address] Faraz Osman MD [address] [place] [address] [facility] Start: 09-02-2024 End: 09-02-2024 ambulatory [facility] Comment on above: Arrived Start: 08-26-2024 End: 08-26-2024 ambulatory 08/26/2024 11:30 AM EST Treatment [facility] [address] [address] [place] [address] Oswaldo Brody PTA [facility] Start: 08-20-2024 End: 08-20-2024 ambulatory [facility] Comment on above: Balance disorder; Frequent falls Start: 06-11-2024 End: 06-11-2024 Patient encounter procedure 06/11/2024 2:15 PM EDT Office Visit [facility] [address] [facility] [address] [place] [address] Faraz Osman MD [address] [facility] [address] [place] [address] Arrived [facility] Comment on above: Arrived Start: 06-10-2024 Hemoglobin A1c measurement Diabetes: Hemoglobin A1C [facility] Start: 06-01-2024 Influenza vaccination Influenza Vacc ine (#1) [facility] Start: 04-26-2024 Glaucoma screening Diabetes: R etinopathy Screening [facility] Start: 12-31-2023 End: 12-31-2023 Patient encounter procedure 12/31/2023 1:30 PM EDT Office Visit [facility] [address] [facility] [address] [place] [address] Faraz Osman MD [address] [facility] [address] [place] [address] [facility] Start: 12-18-2023 End: 12-18-2023 Patient encounter procedure 12/18/2023 2:45 PM EDT Office Visit [facility] [address] [facility] [phone] Jerson Kumari DO [address] [facility] [address] [facility] [place] [id number] [facility] Start: 12-15-2023 Medicare Annual Well ness (AWV) Medicare Annual Wellness (AWV) [facility] Start: 12-15-2023 Urine screening for protein Diabetes: Urine Protein Screening [facility] Start: 11-23-2023 End: 11-23-2023 ambulatory 11/23/2023 2:30 PM EST Treatment [facility] [address] [facility] [address] [place] [address] Roseann Stovall, OT [address] [facility] [address] [place] [address] [facility] Start: 11-20-2023 End: 11-20-2023 ambulatory 11/20/2023 2:30 PM EST Treatment [facility] [address] [place] [address] Roseann Stovall, OT [address] [place] [address] [facility] Start: 11-13-2023 End: 11-13-2023 ambulatory [facility] Comment on above: Carpal tunnel syndro me, bilateral (Primary Dx) Start: 11-13-2023 Hemoglobin A1c measurement Diabetes: Hemoglobin A1C [facility] Start: 11-09-2023 End: 11-09-2023 ambulatory 11/09/2023 1:30 PM EST Evaluation [facility] [address] [place] [address] Roseann Stovall, OT [address] [place] [address] [facility] Start: 11-06-2023 End: 11-06-2023 Patient encounter procedure 11/06/2023 2:00 PM EST Office Visit [facility] [address] [place] [phone] Jerson Kumari DO [address] [facility] [address] [place], [place] [id number] [facility] Start: 04-20-2020 Pneumococcal Vaccine : 65+ Years (2 - PCV) Pneumococcal Vaccine: 65+ Years (2 - PCV) [facility] Start: 04-20-2020 Pneumococcal Vaccine : 65+ Years (2 of 2 - PCV) Pneumococcal Vaccine: 65+ Years (2 of 2 - PCV) [facility] Start: 1955 Screening for malign ant neoplasm of colon [facility] CBC W Auto Different ial panel - Blood CBC and differential Lab Routine General weakness Type 2 diabetes mellitus with diabetic neuropathy, with long-term current use of insulin ([facility]) Ordered: 09/03/2024 [facility] Work Phone: Comment on above: Ordered: 09/03/2024 Patient referral [facility] Work Phone: Immunizations Immunization Date Immunization Notes Care Provider Cate villa 09-10-2024 Influenza, High-dose Seasonal, Quadrivalent, Preservative Free Mary Ramsay PT [facility] 07-09-2023 Influenza, High-dose Seasonal, Quadrivalent, Preservative Free Jerson Kumari DO Work Phone: [facility] 07-09-2023 influenza virus vacc ine, unspecified formulation Faraz Osman MD Work Phone: [facility] 07-05-2022 Influenza, High-dose Seasonal, Quadrivalent, Preservative Free Jerson Kumari DO Work Phone: [facility] 08-01-2021 influenza, high dose seasonal, preservative-free Jerson Kumari DO Work Phone: [facility] 12-13-2020 COVID-19 mRNA, Comir kristal (Pfizer) II Faraz Osman Work Phone: [facility] 11-22-2020 COVID-19 mRNA, Comir kristal (Pfizer) II Faraz Osman Work Phone: [facility] 07-27-2020 influenza, injectabl e, quadrivalent, preservative free Jerson Kumari DO Work Phone: [facility] 07-27-2020 zoster vaccine recombinant Jerson Kumari DO Work Phone: [facility] 07-14-2019 influenza, seasonal, injectable Jerson Kumari DO Work Phone: [facility] 07-02-2019 influenza, injectabl e, quadrivalent, preservative free Jerson Kumari DO Work Phone: [facility] 04-20-2019 pneumococcal polysaccharide vaccine, 23 valent Jerson Kumari DO Work Phone: [facility] 07-29-2018 Influenza, High-dose Seasonal, Quadrivalent, Preservative Free Jerson Kumari DO Work Phone: [facility] 07-29-2018 seasonal influenza, intradermal, preservative free Jerson Kumari DO Work Phone: [facility] 08-06-2017 influenza, injectabl e, quadrivalent, preservative free Jerson Kumari DO Work Phone: [facility] 06-04-2017 seasonal influenza, intradermal, preservative free Jerson Kumari DO Work Phone: [facility] 06-14-2015 zoster vaccine, live Jerson wallacezenon DO Work Phone: [facility] Payers Date Payer Category Payer Medicare (Managed Care) 1.2. [id number] 2024 Medicare [id number] 2024 Medicare [id number] 2022 Medicare [id number] 2021 Self-pay [id number] 2019 Medicaid [id number] 2017 Private Health Insurance [id number] 1959 Medicaid [id number] 1955 Unknown [id number] 2.16.8 40.1.558593.3.579.2.647 1955 Unknown [id number] 2.16.8 40.1.282990.3.579.2.647 1955 Unknown [id number] 2.16.8 40.1.623666.3.579.2.647 1955 Unknown [id number] 2.16.84 0.1.963789.3.579.2.593 1955 Unknown [id number] 2.16.84 0.1.498106.3.579.2.593 1955 Unknown [id number] 2.16.84 0.1.801499.3.579.2.593 1955 Unknown [id number] 2.16.84 0.1.976270.3.579.2.593 1955 Unknown [id number] 2.16.84 0.1.928840.3.579.2.593 1955 Unknown [id number] 2.16.84 0.1.202973.3.579.2.593 1955 Unknown [id number] 2.16.84 0.1.740457.3.579.2.593 1955 Unknown [id number] 2.16.8 40.1.604652.3.579.2.1286 1955 Unknown [id number] 2.16.8 40.1.413123.3.579.2.1286 1955 Unknown [id number] 2.16.8 40.1.672406.3.579.2.1286 1955 Unknown [id number] 2.16.8 40.1.068119.3.579.2.1286 1955 Unknown [id number] 2.16.8 40.1.701028.3.579.2.1286 1955 Unknown [id number] 2.16.8 40.1.592659.3.579.2.727 1955 Unknown [id number] 2.16.84 0.1.745332.3.579.2.1259 1955 Unknown [id number] 2.16.84 0.1.786415.3.579.2.1259 1955 Unknown [id number] 2.16.84 0.1.608439.3.579.2.1259 1955 Unknown [id number] 2.16.84 0.1.278558.3.579.2.1259 1955 Unknown [id number] 2.16.84 0.1.186710.3.579.2.1259 1955 Unknown [id number] 2.16.84 0.1.152062.3.579.2.1259 1955 Unknown [id number] 2.16.84 0.1.349527.3.579.2.1259 1955 Unknown [id number] 2.16.84 0.1.550550.3.579.2.1259 1955 Unknown [id number] 2.16.84 0.1.644705.3.579.2.1258 1955 Unknown [id number] 2.16.84 0.1.516991.3.579.2.1259 1955 Unknown [id number] 2.16.84 0.1.021011.3.579.2.1259 1955 Unknown [id number] 2.16.84 0.1.072817.3.579.2.125 1955 Unknown [id number] 2.16.84 0.1.271148.3.579.2.9 1955 Unknown [id number] 2.16.84 0.1.917863.3.579.2.1259 1955 Unknown [id number] 2.16.84 0.1.393387.3.579.2.1259 1955 Unknown [id number] 2.16.84 0.1.416629.3.579.2.1259 1955 Unknown [id number] 2.16.84 0.1.100206.3.579.2.1259 1955 Unknown [id number] 2.16.84 0.1.294034.3.579.2.1259 1955 Unknown [id number] 2.16.84 0.1.511278.3.579.2.1259 1955 Unknown [id number] 2.16.84 0.1.360997.3.579.2.1259 1955 Unknown [id number] 2.16.84 0.1.479529.3.579.2.1259 1955 Unknown [id number] 2.16.84 0.1.322661.3.579.2.9 1955 Unknown [id number] 2.16.84 0.1.561028.3.579.2.1259 1955 Unknown [id number] 2.16.84 0.1.661842.3.579.2.1259 Medicaid [id number] Medicare [id number] 2.1 6.840.1.704215.19 Unknown [id number] 2.16.8 40.1.125633.3.579.2.531 Social History Date Type Detail Facility Start: 12-20-2021 End: 02-20-2023 Tobacco smoking status [facility] Never smoked tobacco (finding) [facility] Start: 1955 Sex Assigned At Female [facility] Tobacco smoking status No Smokin g Status Entered [facility] Start: 07-31-2023 End: 09-10-2024 Sex Assigned At Female [facility] Start: 02-20-2023 Tobacco use and exposure [...] Identifier Dates USE DIRECTED TWICE A DAY [id number] Start: 09-14-2022 1 strip by In Vi tro route in the morning. [id number] Start: 06-29-2023 End: 12-22-2024 1 Lancet in the morning. [id number] Start: 06-29-2023 Goals Date Patient Goal Desired [...] Forwarding as FYI Report received from insurance [employer] re: statin and MARILU/ARB medication adherence for 2023. 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 Call placed to pt to discuss, VM received, msg left with call back info documented in this encounter [facility] 12-22-2024 History of Presen t illness Narrative [...] (fourteen) days 6 each 3 Droplet Pen Randolph 31G X 6 MM [facility] USE DIRECTED TWICE A DAY empagliflozin (Jardiance) [...] 1 tablet by sublingual route. nystatin (Nyamyc) [id number] UNIT/GM powder Apply topically Daily 60 g [...] History: Diagnosis Date CHF (congestive heart failure) ([facility]) Chicken pox CVA (cerebral vascular accident) ([facility]) Diabetic retinopathy ([facility] DM (diabetes mellitus) ([facility]) Family history of cancer Gastric ulcer 11/2018 Heart disease Hemiplegia ([facility]) History of being hospitalized 11/2018 Upper GI Bleed, Gastric Ulcers History of being hospitalized 01/15/2022 Fall, Closed Head Injury, Hypertensive Urgency History of echocardiogram 11/14/2018 EF 60% History of invasive ductal carcinoma of breast Lt Breast Invasive Ductal Carcinoma (11/07/2021) ER/TN+ Her2 neg HTN (hypertension) ([facility]) Hyperlipidemia ([facility]) Kidney disease Measles Mild mitral regurgitation 11/14/2018 MAYTE (obstructive sleep apnea) Personal history of other medical treatment Left breast IDC ER/TN + Her 2 neg Rib fracture Left [...] neuropathy, with long-term current use of insulin ([facility]) - glucose 4 g chewable tablet; Chew 4 tablets (16 g) if needed for low blood sugar - POCT Glycated hemoglobin, total - Needs A1C <7 for spinal surgery Follow up in about 2 weeks (around 01/05/2025) for DM- A1C. documented in this encounter [facility] 12-11-2024 Note Patient here for 3 m [facility] follow up, and pre OP Clearance [...] All other systems reviewed and are negative. [facility] 12-11-2024 Note Cardiovascular Medic [facility] SUBJECTIVE Chief Complaint Patient presents with [...] syncope. 09/10/2024 Patient here for follow up [facility] for fall. No EKG or labs [...] Hyperglycemia due to type 2 diabetes mellitus ([facility]/HCC) Hyperlipidemia custodial current use of insulin (CMS/HCC) Memory loss Lumbar radiculopathy Mild nonproliferative diabetic retinopathy of both eyes without macular edema associated with type 2 diabetes mellitus ([facility]/HCC) Moderate recurrent major depression ([facility]/HCC) Moderate major depression, single episode ([facility]) Muscle weakness Obstructive sleep apnea Polyneuropathy due to type 2 diabetes mellitus ([facility]) 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 Tremor Diabetic neuropathy ([facility]/HCC) Type 2 diabetes mellitus with diabetic neuropathy, unspecified ([facility]/HCC) Abnormal mammogram Abnormal metabolic state due to diabetes mellitus ([facility]/HCC) Attention and concentration deficit B12 deficiency Candidiasis of breast Candidiasis of skin Carotid stenosis, bilateral Carpal tunnel syndrome, bilateral Cervical spondylosis Degenerative disc disease, cervical Ductal carcinoma in situ (DCIS) of left breast Easy fatigability Gastrointestinal hemorrhage associated with gastric ulcer Invasive ductal carcinoma of left breast ([facility]/HCC) Malignant neoplasm of upper-outer quadrant of left female breast ([facility]) Mild nonproliferative diabetic retinopathy ([facility]) Neurogenic pain Polyneuropathy Retrolisthesis of vertebrae Coronary arteriosclerosis Hand weakness Type 2 diabetes mellitus with hyperglycemia, with long-term current use of insulin ([facility]) 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 Social History [...] the same time (more content not included)... [facility] 12-08-2024 History of Presen t illness [...] (fourteen) days 6 each 3 Droplet Pen Randolph 31G X 6 MM [facility] USE DIRECTED TWICE A DAY empagliflozin (Jardiance) [...] 1 tablet by sublingual route. nystatin (Nyamyc) [id number] UNIT/GM powder Apply topically Daily 60 g [...] History: Diagnosis Date CHF (congestive heart failure) ([facility]) Chicken pox CVA (cerebral vascular accident) ([facility] Diabetic retinopathy ([facility]) DM (diabetes mellitus) ([facility]) Family history of cancer Gastric ulcer 11/2018 Heart disease Hemiplegia ([facility]) History of being hospitalized 11/2018 Upper GI Bleed, Gastric Ulcers History of being hospitalized 01/15/2022 Fall, Closed Head Injury, Hypertensive Urgency History of echocardiogram 11/14/2018 EF 60% History of invasive ductal carcinoma of breast Lt Breast Invasive Ductal Carcinoma (11/07/2021) ER/TN+ Her2 neg HTN (hypertension) ([facility]) Hyperlipidemia ([facility]) Kidney disease Measles Mild mitral regurgitation 11/14/2018 MAYTE (obstructive sleep apnea) Personal history of other medical treatment Left breast IDC ER/TN + Her 2 neg Rib fracture Left [...] Review CGM data. documented in this encounter [facility] 12-02-2024 Telephone encounter Note Post 3 attempts received no reply. [facility] 12-02-2024 Miscellaneous Notes Post 3 attempts received no reply. Tried both her and then husbands phones. Only able to lm on [phone]. Requested call back rodolfo to schedule. Attempted to contact and the phone was busy. Called to verify insurance and offer PT Eval; but when she had answered and I said hina, she hung up. documented in this encounter [facility] 12-01-2024 Telephone encounter Note Tried both her and then husbands phones. Only able to lm on [phone]. Requested call back rodolfo to schedule. [facility] 11-28-2024 Telephone encounter Note Report received from Brndstr re: statin and MARILU/ARB medication adherence for 2023. Unclear fill history prior to May 2024, but appears pt has been on these medications snf. Call placed to pt to discuss, VM received, msg left with call back info [facility] 11-28-2024 Telephone encounter Note Attempted to contact and the phone was busy. [facility] 11-28-2024 Telephone encounter Note Called to verify insurance and offer PT Eval; but when she had answered and I said heleddie, she hung up. [facility] 11-26-2024 Note Chief Complaint: rep eated falls [...] Resource Strain: Low Risk (07/31/2023) Received from [facility] Overall Financial Resource Strain (CARDIA) Difficulty of Paying Living Expenses: Not very hard Food Insecurity: Food Insecurity Present (07/31/2023) Received from [facility] Hunger Vital Sign Worried About Running Out of Food in the Last Year: Sometimes true Ran Out of Food in the Last Year: Never true Transportation Needs: No Transportation Needs (07/31/2023) Received from [facility] PRAPARE - Transportation Lack of Transportation (Medical): No Lack of Transportation (Non-Medical): No Physical Activity: Insufficiently Active (07/31/2023) Received from [facility] Exercise Vital Sign Days of Exercise per Week: 4 days Minutes of Exercise per Session: 10 min Stress: No Stress Concern Present (07/31/2023) Received from [facility] [employer] - Occupational Stress Questionnaire Feeling of Str (more content not included)... [facility] 09-29-2024 History of Presen t illness [...] (fourteen) days 2 each 11 Droplet Pen Randolph 31G X 6 MM mis USE DIRECTED [...] by mouth in the morning. [DISCONTINUED] nystatin ([facility]) [id number] UNIT/GM powder apply to affected area twice [...] History: Diagnosis Date CHF (congestive heart failure) ([facility]) Chicken pox CVA (cerebral vascular accident) ([facility] Diabetic retinopathy ([facility]) DM (diabetes mellitus) ([facility]) Family history of cancer Gastric ulcer 11/2018 Heart disease Hemiplegia ([facility]) History of being hospitalized 11/2018 Upper GI Bleed, Gastric Ulcers History of being hospitalized 01/15/2022 Fall, Closed Head Injury, Hypertensive Urgency History of echocardiogram 11/14/2018 EF 60% History of invasive ductal carcinoma of breast Lt Breast Invasive Ductal Carcinoma (11/07/2021) ER/TN+ Her2 neg HTN (hypertension) ([facility]) Hyperlipidemia ([facility]) Kidney disease Measles Mild mitral regurgitation 11/14/2018 MAYTE (obstructive sleep apnea) Personal history of other medical treatment Left breast IDC ER/TN + Her 2 neg Rib fracture Left [...] visit: Candidiasis of skin - nystatin (Nyamyc) 465717 UNIT/GM powder; Apply topically Daily Spinal stenosis of lumbar region, unspecified whether neurogenic claudication present - Ambulatory referral to Orthopaedic Surgery; Future - MRI was discussed. - This office visit was spent in consultation regarding the patient's current medical problems, differential diagnoses, testing/imaging results, and treatment options. Greater than 25 minutes was spent in [id number] consultation and coordination of care. Lumbar radiculopathy - Ambulatory referral to Orthopaedic Surgery; Future Follow up in about 2 months (around 11/28/2024) for Routine F/U. documented in this encounter [facility] 09-25-2024 History of Presen t illness Narrative [...] feel her feet. Precautions: Frequent falls; 9 NV's, 9 CVA's Subjective: Pt states her legs [...] to be instructed in home exercise program. 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 Date: documented in this encounter [facility] 09-23-2024 History of Presen t illness Narrative [...] feel her feet. Precautions: Frequent falls; 9 NV's, 9 CVA's Subjective: Pt states he right [...] to be instructed in home exercise program. Senior Living Goals: To be met in 10 weeks [...] sign below. Date: documented in this encounter [facility] 09-15-2024 Telephone encounter Note Acknowledged. [facility] 09-15-2024 Miscellaneous Notes Acknowledged. Spoke with patient [...] referral to neurosurgery. documented in this encounter [facility] [facility] encounter Note Spoke with patient and she set up an appointment with DR Osman for further discission. [facility] 09-15-2024 Telephone encounter Note Please let [...] agreeable, please place referral to neurosurgery. [facility] 09-11-2024 History of Presen t illness [...] feel her feet. Precautions: Frequent falls; 9 NV's, 9 CVA's Subjective: Pt states MRI was ordered and pt is to have tomorrow in [place]. States she was pretty tired following last [...] to be instructed in home exercise program. [facility] Living Goals: To be met in 10 weeks [...] sign below. Date: documented in this encounter [facility] 09-10-2024 Note Patient here for fol [...] All other systems reviewed and are negative. [facility] 09-10-2024 Note Cardiovascular Medic [facility] SUBJECTIVE Chief Complaint Patient presents with [...] to type 2 diabetes mellitus (CMS/HCC) Hyperlipidemia intermediate designer current use of insulin (CMS/HCC) Memory loss Lumbar radiculopathy Mild nonproliferative diabetic retinopathy of both eyes without macular edema associated with type 2 diabetes mellitus (CMS/HCC) Moderate recurrent major depression (CMS/HCC) Moderate major depression, single episode (CMS/HCC) Muscle weakness Obstructive sleep apnea Polyneuropathy due to type 2 diabetes mellitus ([facility]/HCC) 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 Tremor Diabetic neuropathy ([facility]/HCC) Type 2 diabetes mellitus with diabetic neuropathy, unspecified ([facility]/HCC) Abnormal mammogram Abnormal metabolic state due to [...] hyperglycemia, with long-term current use of insulin ([facility]/HCC) 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 No Known [...] (Lantus) 100 u (more content not included)... [facility] 09-10-2024 History of Presen t illness [...] (fourteen) days 2 each 11 Droplet Pen [place] 31G X 6 MM misc USE DIRECTED [...] 1 tablet by sublingual route. nystatin (Nyamyc) 407709 UNIT/GM powder apply to affected area twice [...] need - Influenza, high-dose seasonal, quadrivalent, PF ([id number]) (Fluzone High Dose [place] 0.7mL dose) Type 2 diabetes mellitus with diabetic neuropathy, with long-term current use of insulin ([facility]) - POCT Glycated hemoglobin, total Estrogen deficiency [...] Answer: screening Influenza, high-dose seasonal, quadrivalent, PF ([id number]) (Fluzone High Dose [place] 0.7mL dose) POCT Glycated hemoglobin, total Follow up in about 4 weeks (around 10/08/2024). Electronically signed by Faraz Osman MD on September 10, 2024 documented in this encounter [facility] 09-03-2024 History of Presen t illness Narrative Images from the original note were not included. HPI Follow-up Additional comments: [facility] ER 08/26/24 dx: multiple falls,closed head injury discharged home no med changes Pt has follow up with cardiology today Med Refill Additional comments: Nystatin powder-- DM capo Last edited by Holly Joy LPN on 09/03/2024 8:40 AM. Subjective Patient ID: Kyle Powell is a 68 y.o. female who presents for Follow-up ([facility] ER 08/26/24 dx: multiple falls,closed head [...] (fourteen) days 2 each 11 Droplet Pen [place] 31G X 6 MM misc USE DIRECTED [...] 1 tablet by sublingual route. nystatin (Nyamyc) 874840 UNIT/GM powder apply to affected area twice [...] History: Diagnosis Date CHF (congestive heart failure) (CMS/[facility]) Chicken pox CVA (cerebral vascular accident) (CMS/[facility]) Diabetic retinopathy (CMS/[facility]) DM (diabetes mellitus) (CMS/[facility]) Family history of cancer Gastric ulcer 11/2018 Heart disease Hemiplegia ([facility]) History of being hospitalized 11/2018 Upper GI Bleed, Gastric Ulcers History of being hospitalized 01/15/2022 Fall, Closed Head Injury, Hypertensive Urgency History of echocardiogram 11/14/2018 EF 60% History of invasive ductal carcinoma of breast Lt Breast Invasive Ductal Carcinoma (11/07/2021) ER/TN+ Her2 neg HTN (hypertension) (CMS/HCC) Hyperlipidemia (CMS/HCC) Kidney disease Measles Mild mitral regurgitation 11/14/2018 MAYTE (obstructive sleep apnea) Personal history of other medical treatment Left breast IDC ER/TN + Her 2 neg Rib fracture Left [...] Greater than 25 minutes was spent in [id number] consultation and coordination of care. 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 Fell today getting [...] (fourteen) days 2 each 11 Droplet Pen [place] 31G X 6 MM misc USE DIRECTED [...] every morning 30 tablet 2 Lancets 28G [facility] 1 Lancet in the morning. 100 each [...] 1 tablet by sublingual route. nystatin (Nyamyc) 059139 UNIT/GM powder apply to affected area twice [...] History: Diagnosis Date CHF (congestive heart failure) ([facility]) Chicken pox CVA (cerebral vascular accident) ([facility] Diabetic retinopathy ([facility]) DM (diabetes mellitus) ([facility]) Family history of cancer Gastric ulcer 11/2018 Heart disease Hemiplegia ([facility]) History of being hospitalized 11/2018 Upper GI Bleed, Gastric Ulcers History of being hospitalized 01/15/2022 Fall, Closed Head Injury, Hypertensive Urgency History of echocardiogram 11/14/2018 EF 60% History of invasive ductal carcinoma of breast Lt Breast Invasive Ductal Carcinoma (11/07/2021) ER/TN+ Her2 neg HTN (hypertension) ([facility]) Hyperlipidemia ([facility]) Kidney disease Measles Mild mitral regurgitation 11/14/2018 MAYTE (obstructive sleep apnea) Personal history of other medical treatment Left breast IDC ER/TN + Her 2 neg Rib fracture Left [...] Appointment As Scheduled. documented in this encounter [facility] 07-09-2024 History of Presen t illness Narrative [...] (fourteen) days 2 each 11 Droplet Pen [place] 31G X 6 MM misc USE DIRECTED [...] 1 tablet by sublingual route. nystatin (Nyamyc) 175921 UNIT/GM powder apply to affected area twice [...] History: Diagnosis Date CHF (congestive heart failure) ([facility]) Chicken pox CVA (cerebral vascular accident) ([facility]) Diabetic retinopathy ([facility] DM (diabetes mellitus) ([facility]) Family history of cancer Gastric ulcer 11/2018 Heart disease Hemiplegia ([facility]) History of being hospitalized 11/2018 Upper GI Bleed, Gastric Ulcers History of being hospitalized 01/15/2022 Fall, Closed Head Injury, Hypertensive Urgency History of echocardiogram 11/14/2018 EF 60% History of invasive ductal carcinoma of breast Lt Breast Invasive Ductal Carcinoma (11/07/2021) ER/TN+ Her2 neg HTN (hypertension) ([facility]) Hyperlipidemia ([facility]) Kidney disease Measles Mild mitral regurgitation 11/14/2018 MAYTE (obstructive sleep apnea) Personal history of other medical treatment Left breast IDC ER/TN + Her 2 neg Rib fracture Left [...] by: Darrel Edwards NP Authorized by: Darrel Edwadrs NP Consent: Consent obtained: Verbal Consent given by: Patient Risks, benefits, and alternatives were discussed: yes Risks discussed: Bleeding, infection, pain, dizziness, incomplete removal and TM perforation Alternatives discussed: Alternative treatment [place] protocol: Procedure explained and questions answered to [...] follow-ups on file. documented in this encounter [facility] 07-09-2024 Instructions Darrel Edwards NP - 07/09/2024 3:00 PM EDT Debrox ordered documented in this encounter [facility] 06-11-2024 History of Presen t illness Narrative [...] mouth Daily 100 tablet 3 Droplet Pen [place] 31G X 6 MM misc USE DIRECTED [...] 1 tablet by sublingual route. nystatin (Nyamyc) 237168 UNIT/GM powder apply to affected area twice [...] (CMS/HCC) Chicken pox CVA (cerebral vascular accident) ([facility]) Diabetic retinopathy ([facility]) DM (diabetes mellitus) ([facility]) Family history of cancer Gastric ulcer 11/2018 Heart disease Hemiplegia ([facility]) History of being hospitalized 11/2018 Upper GI Bleed, Gastric Ulcers History of being hospitalized 01/15/2022 Fall, Closed Head Injury, Hypertensive Urgency History of echocardiogram 11/14/2018 EF 60% History of invasive ductal carcinoma of breast Lt Breast Invasive Ductal Carcinoma (11/07/2021) ER/TN+ Her2 neg HTN (hypertension) ([facility]) Hyperlipidemia ([facility]) Kidney disease Measles Mild mitral regurgitation 11/14/2018 MAYTE (obstructive sleep apnea) Personal history of other medical treatment Left breast IDC ER/TN + Her 2 neg Rib fracture Left [...] neuropathy, with long-term current use of insulin ([facility]/HCC) - POCT Glycated hemoglobin, total - Continuous Glucose Sensor (FreeStyle [place] 2 Sensor) misc; 1 Device every 14 (fourteen) days - Decrease PM dose of 70/30 to 55 units. AM dose unchanged. Morbid (severe) obesity due to excess calories (CMS/HCC) Essential (primary) hypertension ([facility]/HCC) Body mass index (BMI) 38.0-38.9, adult Immunodeficiency due to conditions classified elsewhere ([facility]/HCC) Malignant neoplasm of upper-outer quadrant of left female breast ([facility]/HCC) Atherosclerotic heart disease of [place] coronary artery with unspecified angina pectoris ([facility]) Follow up in about 2 months (around 08/11/2024) for Routine F/U, DM- A1C. documented in this encounter [facility] 11-13-2023 History of Presen t illness Narrative Occupational Therapy Occupational Therapy Treatment Visit Patient Name: Kyle Powell Today's Date: 11/15/2023 Linked Episodes Type: Episode: Status: Noted: Resolved: Last update: Updated by: Occupational Therapy B CTR Active 11/07/2023 11/09/2023 3:16 PM Roseann Stovall OT Comments:Episode created from referral [id number] Visit number: 11/12 Supervised time:60 Total time:60 [...] for AROM x5, and yellow t-putty exercises pinch/pull/neurology hospitalist and red therabar exercises in supination/pronation 1x20 for wrist/ neurology hospitalist strengthening. Red digiflex for neurology hospitalist. Median nerve glides complete 1x5x10. Continue to [...] tasks at discharge. documented in this encounter [facility] 11-09-2023 History of Presen t illness Narrative Occupational Therapy Occupational Therapy Evaluation Visit Patient Name: Kyle Powell Today's Date: 11/09/2023 Linked Episodes Type: Episode: Status: Noted: Resolved: Last update: Updated by: Occupational Therapy B CTR Active 11/07/2023 11/09/2023 2:59 PM Roseann Stovall OT Comments:Episode created from referral [id number] Visit number: 10/12 Subjective Interim History: 68 [...] are normal. General General additional comments: R neurology hospitalist strength: 20# LP: 5# L neurology hospitalist strength: 20# LP: 6# Treatment: Education: HEP [...] median nerve distribution complete. HEP established for neurology hospitalist strengthening/ forearm stretches. Written handout provided. Pt and spouse in agreement to POC. Assessment/Plan Short Term Goals: Pt will be independent with home exercise program for neurology hospitalist strengthening at discharge. Retail Project Merchandiser Goals: PRWHE Pain Score 25< 50 ( IE: 47/50) PRWHE Functional Score 20 < 100 ( IE: 78/100) Pt to increase neurology hospitalist strength by 10# and LP by 2# pain free at discharge. ( IE: B 20# LP: R 5# L6#) Pt will be able to use B UE in light daily activities. Pt will benefit from skilled OT to address the above impairments for 2x/week for 4-6 weeks. I hereby deem this POC medically necessary. Please sign below. Date: documented in this encounter [facility] 11-06-2023 History of Presen t illness Narrative [...] not apply, Every 14 days Droplet Pen Randolph 31G X 6 MM [facility] USE DIRECTED TWICE A DAY gabapentin (NEURONTIN) [...] Place 1 tablet by sublingual route. Nyamyc [id number] UNIT/GM powder Nyamyc 100,000 unit/gram topical powder [...] will start her in occupational therapy at [facility] in [place]. Prescription for Gabapentin was provided to take [...] Jerson Kumari D.O. documented in this encounter [facility] 12-02-2022 Evaluation note Encounter Date Diagnosis [...] to nail, initial encounter (ICD-10 - S61.258A) [facility] Other 02-06-2023 NoteCARDIAC STRESS TEST Requesting Physician: Procedure Date:11/06/2022 This was a Lexiscan Stress Test with myocardial perfusion imaging performed at the [facility]. Informed consent was obtained, an intravenous line [...] perfusion images will be reported separately. [id number] Progress note Author Ariel Monte [facility] March 22, 2022 10:19am Note Date/Time March 21, 2022 1:20 pm [facility] [place] [address] Rad Onc Follow Up Note - OP Signed Patient: Kyle Powell MR#: [id number] : 1955 Acct:[id number] Age/Sex: 66 / F Type: REG RCR Copies to: MD Faraz Hartman II, MD Fredric Itzkowitz, DO~ Assessment & Plan (1) Carcinoma of upper-outer quadrant of left breast in female, estrogen receptor positive Plan: RTC PRN Assessment Ms. Powell is a 66-year-old female with stage I pT1b N0 invasive ductal carcinoma of the upper outer quadrant of the left breast, ER/TN positive HER2 negative. Tumor was grade 2, [...] of anti inflammatories with her PCP or Principal Account Clerk as these would like provide more relief. [...] history: October 13, 2021 screening mammogram at [facility] showed no abnormalities of the right breast but the left breast was concerning for a 1.2 spiculated nodule in the left upper outer quadrant. Spot compression mammogram and ultrasound confirmed an irregular hypoechoic mass in the 2 o'clock position measuring 8 mm in size. November 08, 2021 ultrasound-guided breast biopsy confirmed invasive ductal carcinoma, provisional grade 2 3, ER/TN positive HER2 equivocal by IHC, negativeby FISH. [...] signed by Ariel Monte MD> 03/22/[address] [facility] Work Phone: 1(349) 145-689005-23-2022 Progress note Author [facility] February 20, 2022 4:08pm Note Date/Time February 20, 2022 2:15p [facility] [place] [address] Hem/Onc Follow Up Note - OP Signed Patient: Kyle Powell MR#: [id number] : 1955 Acct:[id number] Age/Sex: 66 / F Type: REG RCR [...] - we will request records from her health and safety trainer at [place] - Dr. Garrett Mcdonald. Clinically, she is [...] discussed results of her pathology showing T1b [id number] I breast cancer. Since she has less [...] was sent for screening mammogram 10/13/2021 at [facility] showing no abnormalities of the right breast, but left breast showed a new 1.2 x 0.9cm spiculated nodule of left upper outer quadrant mid-breast. Subsequent spot compression mammogram and ultrasound showed an irregular hypoechoic mass in 2 o'clock position 10.7cm from nipple, [id number]. Ultrasound guided biopsy performed at [place] 11/08/21 confirmed diagnosis of invasive ductal carcinoma, provisional grade 2-3, ER >95% positive, TN >95% positive, Her2 equivocal by IHC, negative [...] ductal carcinoma, provisional grade 2-3, ER >95%, TN >95%, Her2 neg --12/20/2021: Left breast lumpectomy with left axillary sentinel lymph node: Invasive ductal carcinoma, Willard grade 2, tumor size 0.9 x 0.9 x 0.8 cm with margins negative. ER +95%, TN +95%, HER-2/diomedes negative IHC 1+, pT1b (sn)pN0 Mx 2. Right mastodynia x 1 month (no lesion right mammogram) 3. Coronary artery disease (multiple prior NV) 4. Cerebral vascular disease (multiple prior strokes, [...] Negative for environmental allergies and food allergies. [facility] - Medical History Medical History: Medical History [...] T1b, N0 Left breast invasive ductal carcinoma, [place] grade 2-3, ER >95% positive, TN >95% positive, Her2 1+ IHC, negative. (1) [...] carcinoma, provisional grade 2-3, ER >95% positive, TN >95% positive, Her2 equivocal by IHC, negative by FISH (HER/CEP17 1.4, copy number 3.33). This lesion is nonpalpable, less than 2 cm, and due to strong hormone positive, HER2 negative disease she is not a candidatefor neoadjuvant chemotherapy. She already has a surgical date in November [address] Hemphill--lumpectomy revealed T1b N0 MX [place] grade 2 breast cancer with size 0.9 cm. 01/12/2022: She returns for followup to discuss pathology of resection specimen and adjuvant therapy options. We decided against Oncotype DX due to size less than 1 cm, strongly ER/TN positive, HER-2 negative disease, and her comorbidities. [...] PCP: Patient reports having seen cardiology at [facility] approximately 3 weeks ago with adjustments in [...] for coordination of care (as documented) and [id number] counseling of patient and/or family. Dictated By: Lisa Orozco APRN DD/ 1415 Signed By: <Electronically signed by IVELISSE Orozco> 02/20/[address] [facility] Work Phone: 1(505) 531-602504-20-2022 Consult note Author Ariel Monte [facility] January 18, 2022 4:10pm Note Date/Time January 18, 2022 1:5 9pm [facility] [place] [id number] Rad Onc Consult Note - OP Signed Patient: Kyle Powell MR#: [id number] : 1955 Acct:[id number] Age/Sex: 66 / F Type: REG RCR [...] upper outer quadrant of the left breast, ER/TN positive HER2 negative. We reviewed her pathology [...] FORWARD protocol to a dose of 26 Sgeal in 5 fractions. Patient has significant cardiac [...] history: October 13, 2021 screening mammogram at [facility] showed no abnormalities of the right breast but the left breast was concerning for a 1.2 spiculated nodule in the left upper outer quadrant. Spot compression mammogram and ultrasound confirmed an irregular hypoechoic mass in the 2 o'clock position measuring 8 mm in size. November 08, 2021 ultrasound-guided breast biopsy confirmed invasive ductal carcinoma, provisional grade 2 3, ER/TN positive HER2 equivocal by IHC, negativeby FISH. [...] No issues with mobility of the arm. [facility] - Medical History Medical History: Medical History [...] signed by Ariel Monte MD> 01/18/[address] [facility] Work Phone: 1(614) 537-696704-15-2022 Progress note Author Karoline Farmer [facility] January 13, 2022 1:05pm Note Date/Time January 12, 2022 1:0 9pm [facility] [address] [address] Hem/Onc Follow Up Note - OP Signed Patient: Kyle Powell MR#: [id number] : 1955 Acct:[id number] Age/Sex: 66 / F Type: REG RCR Copies to: MD Jac Springer II, DO Norleena Poynter, MD~ Subjective Date/Time of Service: Date of Service: 01/12/2022 Time of Service: 13:08 Chief Complaint: Patient is here today for 6 week follow for breast cancer of left side. No new concerns HPI: 01/12/2022: Mrs. Pwoell returns for follow-up after left breast lumpectomy. She notes she is healing well but has had drainage of seroma of incision. No surrounding erythema or tenderness. She does note that since 1 week Valtrex treatment of the right breast (uninvolved breast) pain that her mastodynia has completely resolved. Today we discussed results of her pathology showing T1b C0rtexu I breast cancer. Since she has less [...] was sent for screening mammogram 10/13/2021 at [facility] showing no abnormalities of the right breast, but left breast showed a new 1.2 x 0.9cm spiculated nodule of left upper outer quadrant mid-breast. Subsequent spot compression mammogram and ultrasound showed an irregular hypoechoic mass in 2 o'clock position 10.7cm from nipple, [id number]. Ultrasound guided biopsy performed at [place] 11/08/21 confirmed diagnosis of invasive ductal carcinoma, provisional grade 2-3, ER >95% positive, TN >95% positive, Her2 equivocal by IHC, negative [...] ductal carcinoma, provisional grade 2-3, ER >95%, TN >95%, Her2 neg --12/20/2021: Left breast lumpectomy with left axillary sentinel lymph node: Invasive ductal carcinoma, [place] grade 2, tumor size 0.9 x 0.9 x 0.8 cm with margins negative. ER +95%, TN +95%, HER-2/diomedes negative IHC 1+, pT1b (sn)pN0 Mx 2. Right mastodynia x 1 month (no lesion right mammogram) 3. Coronary artery disease (multiple prior NV) 4. Cerebral vascular disease (multiple prior strokes, no residual deficits) 5. Prior history of shingles (VZV) and prior Shingrix vaccine - Summary of Therapies Summary of Therapies: 1. 12/20/2021: Left breast lumpectomy with left axillary sentinel lymph node 2. Met with radiation oncology for adjuvant radiation therapy discussion 3. Prescription to start aromatase inhibitor therapy with anastrozole 1 mg daily and follow-up with [employer]. This may commence following radiation therapy. ROS [...] function - Impressions Screening mammogram 10/13/2021 at [facility] showing no abnormalities of the right breast, but left breast showed a new 1.2 x 0.9cm spiculated nodule of left upper outer quadrant mid-breast. Subsequent spot compression mammogram and ultrasound showed an irregular hypoechoic mass in 2 o'clock position 10.7cm from nipple, [id number]. Assessment and Plan - TNM Staging Staging: Prognostic stage Ia, pathologic stage I T1b, N0 Left breast invasive ductal carcinoma, Willard grade 2-3, ER >95% positive, TN >95% positive, Her2 1+ IHC, negative. (1) [...] carcinoma, provisional grade 2-3, ER >95% positive, TN >95% positive, Her2 equivocal by IHC, negative by FISH (HER/CEP17 1.4, copy number 3.33). This lesion is nonpalpable, less than 2 cm, and due to strong hormone positive, HER2 negative disease she is not a candidatefor neoadjuvant chemotherapy. She already has a surgical date in November [address] Hemphill--lumpectomy revealed T1b N0 MX [place] grade 2 breast cancer with size 0.9 cm. 01/12/2022: She returns for followup to discuss pathology of resection specimen and adjuvant therapy options. We decided against Oncotype DX due to size less than 1 cm, strongly ER/TN positive, HER-2 negative disease, and her comorbidities. [...] for coordination of care (as documented) and srol-pu-bqju counseling of patient and/or family. Dictated By: Karoline Farmer MD DD/ 07 Signed By: <Electronically signed by MD Karoline Farmer> 01/13/[address] [facility] Work Phone: 1(355) 310-548204-15-2022 Progress note Author Karoline Farmer [facility] January 13, 2022 1:05pm Note Date/Time January 12, 2022 1:0 9pm [facility] [place] [address] Hem/Onc Follow Up Note - OP Signed Patient: Kyle Powell MR#: [id number] : 1955 Acct:[id number] Age/Sex: 66 / F Type: REG RCR [...] discussed results of her pathology showing T1b H5lksea I breast cancer. Since she has less [...] was sent for screening mammogram 10/13/2021 at [facility] showing no abnormalities of the right breast, but left breast showed a new 1.2 x 0.9cm spiculated nodule of left upper outer quadrant mid-breast. Subsequent spot compression mammogram and ultrasound showed an irregular hypoechoic mass in 2 o'clock position 10.7cm from nipple, [id number]. Ultrasound guided biopsy performed at [place] 11/08/21 confirmed diagnosis of invasive ductal carcinoma, provisional grade 2-3, ER >95% positive, TN >95% positive, Her2 equivocal by IHC, negative [...] ductal carcinoma, provisional grade 2-3, ER >95%, TN >95%, Her2 neg --12/20/2021: Left breast lumpectomy with left axillary sentinel lymph node: Invasive ductal carcinoma, Willard grade 2, tumor size 0.9 x 0.9 x 0.8 cm with margins negative. ER +95%, TN +95%, HER-2/diomedes negative IHC 1+, pT1b (sn)pN0 Mx 2. Right mastodynia x 1 month (no lesion right mammogram) 3. Coronary artery disease (multiple prior NV) 4. Cerebral vascular disease (multiple prior strokes, no residual deficits) 5. Prior history of shingles (VZV) and prior Shingrix vaccine - Summary of Therapies Summary of Therapies: 1. 12/20/2021: Left breast lumpectomy with left axillary sentinel lymph node 2. Met with radiation oncology for adjuvant radiation therapy discussion 3. Prescription to start aromatase inhibitor therapy with anastrozole 1 mg daily and follow-up with [employer]. This may commence following radiation therapy. ROS [...] Negative for environmental allergies and food allergies. [facility] - History Attestation statement: The following information [...] function - Impressions Screening mammogram 10/13/2021 at [facility] showing no abnormalities of the right breast, but left breast showed a new 1.2 x 0.9cm spiculated nodule of left upper outer quadrant mid-breast. Subsequent spot compression mammogram and ultrasound showed an irregular hypoechoic mass in 2 o'clock position 10.7cm from nipple, [id number]. Assessment and Plan - TNM Staging Staging: Prognostic stage Ia, pathologic stage I T1b, N0 Left breast invasive ductal carcinoma, [place]acks[place] grade 2-3, ER >95% positive, TN >95% positive, Her2 1+ IHC, negative. (1) [...] carcinoma, provisional grade 2-3, ER >95% positive, TN >95% positive, Her2 equivocal by IHC, negative by FISH (HER/CEP17 1.4, copy number 3.33). This lesion is nonpalpable, less than 2 cm, and due to strong hormone positive, HER2 negative disease she is not a candidatefor neoadjuvant chemotherapy. She already has a surgical date in November [address] Hemphill--lumpectomy revealed T1b N0 MX [place] grade 2 breast cancer with size 0.9 cm. 01/12/2022: She returns for followup to discuss pathology of resection specimen and adjuvant therapy options. We decided against Oncotype DX due to size less than 1 cm, strongly ER/TN positive, HER-2 negative disease, and her comorbidities. [...] for coordination of care (as documented) and iabs-no-jmap counseling of patient and/or family. Dictated By: Karoline Farmer MD DD/ 1308 Signed By: <Electronically signed by MD Karoline Farmer> 01/13/[address] [facility] Work Phone: 1(909) 629-737402-25-2022 Consult note Author Karoline Framer [facility] November 25, 2021 8:58pm Note Date/Time November 25, 2021 11:32am [facility] [place] [address] Hem/Onc Consult Note - OP Signed Patient: Kyle Powell MR#: [id number] : 1955 Acct:[id number] Age/Sex: 66 / F Type: REG RCR Copies to: MD Jca Springer II, DO~ HPI Date/Time of Service: Date of Service: 11/25/2021 Time of Service: 11:31 Referring Provider/PCP: Referring Provider: Faraz Osman II, MD PCP: Faraz Osman II, MD - History of Present Illness Reason for Consultation: Patient was found to have abnormal screening mammography with biopsy at [facility] for invasive ductal carcinoma. Referred to both general surgery who she saw yesterday and me to discuss appropriate management. Tumor appears to be8 x 7 x 7 mm on ultrasound at the 2 o'clock position. ER positive, TN positive,HER-2 negative by FISH, provisional grade 2-3. [...] was sent for screening mammogram 10/13/2021 at [facility] showing no abnormalities of the right breast, butleft breast showed a new 1.2 x 0.9cm spiculated nodule of left upper outer quadrant mid-breast. Subsequent spot compression mammogram and ultrasound showed an irregular hypoechoic mass in 2 o'clock position 10.7cm from nipple, [id number]. Ultrasound guided biopsy performed at [place] 11/08/21 confirmed diagnosis of invasive ductal carcinoma, provisional grade 2-3, ER >95% positive,TN >95% positive, Her2 equivocal by IHC, negative [...] operative to review recommendations for adjuvant therapy. [facility] - History Attestation statement: The following information [...] ductal carcinoma, provisional grade 2-3, ER >95%, TN >95%, Her2 neg 2. Right mastodynia x 1 month (no lesion right mammogram) 3. Coronary artery disease (multiple prior NV) 4. Cerebral vascular disease (multiple prior strokes, [...] review. - Impressions Screening mammogram 10/13/2021 at [facility] showing no abnormalities of the right breast, but left breast showed a new 1.2 x 0.9cm spiculated nodule of left upper outer quadrant mid-breast. Subsequent spot compression mammogram and ultrasound showed an irregular hypoechoic mass in 2 o'clock position 10.7cm from nipple, [id number]. Assessment and Plan - TNM Staging Staging: Clinical stage I T1c, N0 Left breast invasive ductal carcinoma, provisional grade 2-3, ER >95% positive, TN >95% positive, Her2 equivocal by IHC, negative [...] carcinoma, provisional grade 2-3, ER >95% positive, TN >95% positive, Her2 equivocal by IHC, negative [...] for coordination of care (as documented) and kikh-xl-fait counseling of patient and/or family. 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 History of stroke chronic Hypertension chronic [facility] Work Phone: Evaluation note* Diagnosis Onset Date Resolution Status [id number] acute Encounter for monitoring aromatase inhibitor therapy acute 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 History of stroke chronic Hypertension chronic Mastodynia of right breast r esolved [facility] Work Phone: Evaluation noteNo assessment information available [facility] Work Phone: Evaluation note* Diagnosis Bilateral carpal tunnel syndrome- Primary Carpal tunnel syndrome documented in this encounter [facility] HealthcareEvaluation note* Diagnosis Carpal tunnel syndrome, bilateral- Primary Carpal tunnel syndrome Bilateral carpal tunnel syndrome Carpal tunnel syndrome Hand weakness Muscle weakness (generalized) documented in this encounter [facility]* Diagnosis Carpal tunnel syndrome, bilateral- Primary Carpal tunnel syndrome Hand weakness Muscle weakness (generalized) documented in this encounter [facility] HealthcareEvaluation note* Diagnosis Neurogenic pain Cerebral [...] artery occlusion with cerebral infarction Stroke, lacunar ([facility]) Unspecified cerebral artery occlusion with cerebral infarction [...] pain Cerebral artery occlusion with cerebral infarction ([facility]/HCC) Unspecified cerebral artery occlusion with cerebral infarction Stroke, lacunar ([facility]) Unspecified cerebral artery occlusion with cerebral infarction [...] neuropathy, with long-term current use of insulin ([facility]) Morbid (severe) obesity due to excess calories ([facility]) Essential (primary) hypertension ([facility]) Unspecified essential hypertension Body mass index (BMI) 38.0-38.9, adult Immunodeficiency due to conditions classified elsewhere ([facility]) Malignant neoplasm of upper-outer quadrant of left female breast (CMS/HCC) Atherosclerotic heart disease of [place] coronary artery with unspecified angina pectoris ([facility]/HCC) documented in this encounter [facility]* [...] neuropathy, with long-term current use of insulin ([facility]) Estrogen deficiency Other ovarian failure Breast screening Breast screening, unspecified documented in this encounter [facility]* Diagnosis Neurogenic pain Cerebral artery occlusion with cerebral infarction ([facility]/HCC) Unspecified cerebral artery occlusion with cerebral infarction Stroke, lacunar ([facility]/HCC) Unspecified cerebral artery occlusion with cerebral infarction [...] or radiculitis, unspecified documented in this encounter [facility] HealthcareEvaluation note* Diagnosis Neurogenic pain Cerebral [...] (BMI) 38.0-38.9, adult documented in this encounter [facility] HealthcareEvaluation note* Diagnosis Neurogenic pain [...] neurogenic claudication present documented in this encounter [facility] HealthcareHistory general Narrative - Reported* Type Description Date Medical History HTN Medical History hyperlipidemia Medical History DM II Medical History Congestive Heart Failure Medical History stroke Medical History heart attack Medical History CAD with stents Surgical History cardiac stents Surgical History lumpectomy left breast Surgical History coccyx removal Surgical History tonsillectomy Surgical History [facility] Other Hospital Discharge instructions No data available for this section [facility] No data available for this section [facility] for [facility] (narrative)* Consultation (Routine) - Authorized Specialty Diagnoses / Procedures Referred By Contac t Referred To Contact Occupational Therapy / Physical Therapy Diagnoses Bilateral carpal tunnel syndrome Procedures TN OFFICE/OUTPATIENT NEW HIGH MDM 60 MINUTES Jerson Kumari DO [address] [place] [address] Elisha Stovallney, OT [address] [place] [address] Referral ID Status Reason Start Date Expiration Date Visits Requested Visits Authorized [id number] Authorized Consult and Treat 11/06/2023 05/04/2024 1 1 [facility] HealthcareRezee for visit Narrative* Consultation (Routine) - Authorized Specialty Diagnoses / Procedures Referred By Contac t Referred To Contact Occupational Therapy / Physical Therapy Diagnoses Bilateral carpal tunnel syndrome Procedures TN OFFICE/OUTPATIENT NEW HIGH MDM 60 MINUTES Jerson Kumari DO [address] [place] [address] Elisha Stovallney, OT [address] [place] [address] Referral ID Status Reason Start Date Expiration Date Visits Requested Visits Authorized [id number] Authorized Consult and Treat 11/06/2023 05/04/2024 99 99 [facility] for [facility] Narrative* Rehabilitation - Outpatient (Routine) - Authorized Specialty Diagnoses / Procedures Referred By Contac t Referred To Contact Physical Therapy Diagnoses Balance disorder Frequent falls Procedures TN OFFICE/OUTPATIENT NEW HIGH MDM 60 MINUTES Christy Baez, PA [address] [facility] [address] [place] [address] Phone: tel: fax: Mary Ramsay PT Referral ID Status Reason Start Date Expiration Date Visits Requested Visits Authorized [id number] Authorized Specialty Services Required 4 02/07/2025 99 99 [facility] HealthcareReason for visit Narrative* Rehabilitation - Outpatient (Routine) - Authorized Specialty Diagnoses / Procedures Referred By Contac t Referred To Contact Physical Therapy Diagnoses Balance disorder Frequent falls Procedures TN OFFICE/OUTPATIENT NEW HIGH MDM 60 MINUTES Christy Baez PA [address] [facility] [address] [place] [address] Phone: tel: fax: Mary Ramsay PT Referral ID Status Reason Start Date Expiration Date Visits Requested Visits Authorized [id number] Authorized Specialty Services Required 4 09/30/2024 99 [...] November 3:51pm Hospital Course Note MR#: [id number] [facility] Pt. Name: Kyle Powell Admitted: 04/28/2018 [...] This is a 62-year-old female, admitted to [facility], who was transferred from [place] with hypertension emergency/urgency. She was complaining of dizziness and tongue numbness on presentation. CT scan of brain revealed hypoattenuation, bilateral basal ganglia and right thalamus. Stroke team was consulted. No tPA was given. MR (more content not included)... Note MR#: [id number] [facility] Pt. Name: Kyle Powell Admitted: 09/05/2018 Discharged: 09/07/2018 Date of : 1955 Physician: Jonah Sanabria MD DISCHARGE SUMMARY PRINCIPAL DIAGNOSES: 1. 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 2. Essential hypertension. [...] procedure and decided to transfer here to [facility] for cardiac cath. She had a cardiac cath here. In 01/2017, she had severe ostial stenosis of the posterior descending branch of the right coronary artery and had a balloon angioplasty with a Synergy drug-eluting stent. She has been doing well since (more content not included)... Note MR#: [id number] [facility] Pt. Name: Kyle Powell Admitted: 11/13/2018 Discharged: [...] (more content not included)... Note MR#: [id number] [facility] Pt. Name: Kyle Powell Surgery Date: 11/15/2018 Room #: [id number] Date of : 1955 PROCEDURE NOTE ATTENDING: Dov Oscar M.D. PROCEDURE EGD with gastric biopsies. ROPEWALK ROPE MAKER: Inocencio Rivera M.D. INDICATION FOR PROCEDURE: A [...] not included)... Procedure Findings Note MR#: [id number] [facility] Pt. Name: Kyle Powell Surgery Date: 11/15/2018 Room #: [id number] Date of : 1955 PROCEDURE NOTE ATTENDING: Dov Oscar M.D. PROCEDURE EGD with gastric biopsies. ROPEWALK ROPE MAKER: Inocencio Rivera M.D. INDICATION FOR PROCEDURE: A [...] Cancer Left Breast Cancer Reason for Visit [id number] Mastodynia of right breast Coronary artery disease History of stroke Hypertension Chief Complaint Left Breast Cancer Left Breast Cancer Left Breast Cancer DCIS Left Breast Reason for Visit [id number] Mastodynia of right breast Coronary artery disease History of stroke Hypertension Chief Complaint Left Breast Cancer Left Breast Cancer Left Breast Cancer DCIS Left Breast Reason for Visit [id number] Encounter for monitoring aromatase inhibitor therapy Coronary artery disease History of stroke Hypertension Mastodynia of right breast Chief Complaint DCIS Left Breast Reason for Visit [id number] Encounter for monitoring aromatase inhibitor therapy Coronary artery disease History of stroke Hypertension Mastodynia of right breast Additional Source Comments INFORMATION SOURCE (unrecogn ized section and content) DATE CREATED AUTHOR 03/25/2018 [facility] DATE CREATED AUTHOR AUTHOR'S ORGANIZ ATION 12/11/2018 [facility] DATE CREATED AUTHOR AUTHOR'S ORGANIZ ATION 02/14/2023 [facility] DATE CREATED AUTHOR AUTHOR'S ORGANIZ ATION 04/14/2023 [facility] DATE CREATED AUTHOR AUTHOR'S ORGANIZ ATION 02/19/2024 [facility] DATE CREATED AUTHOR AUTHOR'S ORGANIZ ATION 03/11/2024 [facility] DATE CREATED AUTHOR AUTHOR'S ORGANIZ ATION 12/23/2024 [facility] DATE CREATED AUTHOR AUTHOR'S ORGANIZ ATION 01/03/2025 [facility] Care Teams (unrecognized sec tion and [...] Osman II MD Primary Care Provider Active Psychiatric Aides Teacher Relationship Specialty Start Date End Date Faraz Osman MD [address] [place] [address] PCP - General Internal Medicine 02/20/23 Psychiatric Aides Teacher Relationship Specialty Start Date End Date Faraz Osman MD [address] [place] [address] PCP - General Internal Medicine 02/20/23 Psychiatric Aides Teacher Relationship Specialty Start Date End Date Faraz Osman MD [address] [place] [address] PCP - General Internal Medicine 02/20/23 Psychiatric Aides Teacher Relationship Specialty Start Date End Date Faraz Osman MD [address] [place] [address] PCP - General Internal Medicine 02/20/23 Psychiatric Aides Teacher Relationship Specialty Start Date End Date Faraz Osman MD [address] [place] [address] PCP - General Internal Medicine 02/20/23 Psychiatric Aides Teacher Relationship Specialty Start Date End Date Faraz Osman MD [address] [place] [address] PCP - General Internal Medicine 02/20/23 Faraz Osman MD [address] [place] [address] PCP - [employer] 01/30/24 Psychiatric Aides Teacher Relationship Specialty Start Date End Date Faraz Osman MD [address] [place] [address] PCP - General Internal Medicine 02/20/23 Faraz Osman MD [address] [place] [address] PCP - [employer] 01/30/24 Psychiatric Aides Teacher Relationship Specialty Start Date End Date Faraz Osman MD [address] [place] [address] PCP - General Internal Medicine 02/20/23 Faraz Osman MD [address] [place] [address] PCP - [employer] 01/30/24 Psychiatric Aides Teacher Relationship Specialty Start Date End Date Faraz Osman MD [address] [place] [address] PCP - General Internal Medicine 02/20/23 Faraz Osman MD [address] [place] [address] PCP - [employer] 01/30/24 Psychiatric Aides Teacher Relationship Specialty Start Date End Date Faraz Osman MD [address] [place] [address] PCP - General Internal Medicine 02/20/23 Faraz Osman MD [address] [place] [address] PCP - [employer] 01/30/24 Psychiatric Aides Teacher Relationship Specialty Start Date End Date Faraz Osman MD [address] [place] [address] PCP - General Internal Medicine 02/20/23 Faraz Osman MD [address] [place] [address] PCP - [employer] 01/30/24 Psychiatric Aides Teacher Relationship Specialty Start Date End Date Faraz Osman MD [address] [place] [address] PCP - General Internal Medicine 02/20/23 Faraz Osman MD [address] [place] [address] PCP - [employer] 01/30/24 Psychiatric Aides Teacher Relationship Specialty Start Date End Date Faraz Osman MD [address] [place] [address] PCP - General Internal Medicine 02/20/23 Faraz Osman MD [address] [place] [address] PCP - [employer] 01/30/24 Psychiatric Aides Teacher Relationship Specialty Start Date End Date Faraz sOman MD [address] [place] [address] PCP - General Internal Medicine 02/20/23 Faraz Osman MD [address] [place] [address] PCP - [employer] 01/30/24 Psychiatric Aides Teacher Relationship Specialty Start Date End Date Faraz Osman MD [address] [place] [address] PCP - General Internal Medicine 02/20/23 Faraz Osman MD [address] [place] [address] PCP - [employer] 01/30/24 Psychiatric Aides Teacher Relationship Specialty Start Date End Date Faraz Osman MD [address] [place] [address] PCP - General Internal Medicine 02/20/23 Faraz Osman MD [address] [place] [address] PCP - [employer] 01/30/24 Psychiatric Aides Teacher Relationship Specialty Start Date End Date Faraz Osman MD [address] [place] [address] PCP - General Internal Medicine 02/20/23 Faraz Osman MD [address] [place] [address] PCP - [employer] 01/30/24 Psychiatric Aides Teacher Relationship Specialty Start Date End Date Faraz Osman MD [address] [place] [address] PCP - General Internal Medicine 02/20/23 Faarz Osman MD [address] [place] [address] PCP - [employer] 01/30/24 Psychiatric Aides Teacher Relationship Specialty Start Date End Date Faraz Osman MD [address] [place] [address] PCP - General Internal Medicine 02/20/23 Faraz Osman MD [address] [place] [address] PCP - [employer] 01/30/24 Psychiatric Aides Teacher Relationship Specialty Start Date End Date Faraz Osman MD [address] [place] [address] PCP - General Internal Medicine 02/20/23 Faraz Osman MD [address] [place] [address] PCP - [employer] 01/30/24 Psychiatric Aides Teacher Relationship Specialty Start Date End Date Faraz Osman MD [address] [place] [address] PCP - General Internal Medicine 02/20/23 Faraz Osman MD [address] [place] [address] PCP - [employer] 01/30/24 Psychiatric Aides Teacher Relationship Specialty Start Date End Date Faraz Osman MD [address] [place] [address] PCP - General Internal Medicine 02/20/23 Faraz Osman MD [address] [place] [address] PCP - [employer] 01/30/24 Psychiatric Aides Teacher Relationship Specialty Start Date End Date Faraz Osman MD [address] [place] [address] PCP - General Internal Medicine 02/20/23 Faraz Osman MD [address] [place] [address] PCP - [employer] 01/30/24 Psychiatric Aides Teacher Relationship Specialty Start Date End Date Faraz Osman MD [address] [place] [address] PCP - General Internal Medicine 02/20/23 Faraz Osman MD [address] [place] [address] PCP - [employer] 01/30/24 Psychiatric Aides Teacher Relationship Specialty Start Date End Date Faraz Osman MD [address] [facility] [address] [place] [address] PCP - General Internal Medicine 02/20/23 Psychiatric Aides Teacher Relationship Specialty Start Date End Date Faraz Osman MD [address] [facility] [address] [place] [address] PCP - General Internal Medicine 02/20/23 Psychiatric Aides Teacher Relationship Specialty Start Date End Date Faraz Osman MD [address] [facility] [address] [place] [address] PCP - General Internal Medicine 02/20/23 Psychiatric Aides Teacher Relationship Specialty Start Date End Date Faraz Osman MD [address] [facility] [address] [place] [address] PCP - General Internal Medicine 02/20/23 Goals (unrecognized section and content) Goals may be documented in a n alternate section No data available for this sectionNo InformationNo InformationGoals may be documented in an alternate section No data available for this section REASON FOR VISIT (unrecogniz ed section and content) Reason Comments Post-op Reason Comments Cerumen Impaction Reason Comments Follow-up [facility] ER 08/26/24 dx: multiple falls,closed head [...] BE BASED ON THE PRIMARY CLINICAL RECORDS. [facility]. provides no warranty or guarantee of the accuracy or completeness of information in this document.
[2025-01-08 03:19] LABS: Bilirubin Urine NEGATIVE (NEGATIVE); Blood Urine TRACE-I (NEGATIVE); Clarity Urine CLEAR (CLEAR); Color Urine YELLOW (YELLOW); Glucose Urine UA 500 mg/dL (NEGATIVE); Ketones Urine TRACE mg/dL (NEGATIVE); Leukocyte Esterase Urine TRACE (NEGATIVE); Nitrite Urine POSITIVE (NEGATIVE); Protein Urine 30 mg/dL (NEG/TRACE); Specific Gravity Urine 1.025 (1.005-1.025); Urobilinogen Urine 0.2 EU/dL (0.2-1.0)
[2025-01-08 03:30] LABS: Bacteria Urine LARGE #/HPF (NONE SEEN); Cast Seen? NONE SEEN #/LPF (NONE SEEN); Crystals Seen? None Seen #/HPF (None Seen); Mucus Urine NONE SEEN (NONE SEEN); RBC Urine 0-2 #/HPF (0-2); Squamous Epithelial Cell Urine FEW #/LPF (NONE/RARE); Transitional Epi Cells Urine RARE #/LPF (NONE SEEN); Urine Culture Indicated YES-FRMC
[2025-01-08] MEDS: CEFTRIAXONE 1,000 MG in 0.9 % SODIUM CHLORIDE 50 ML 100 MG IV (05:28)
[2025-01-08 06:29] LABS: Basophils Percent Auto 0.4 % (0.2-2.0); Eosinophils Absolute Auto 0.2 10^3/uL (0.0-0.7); Eosinophils Percent Auto 2.9 % (0.9-7.0); Hematocrit 35.6 % (36.0-48.0); Hemoglobin 11.9 g/dL (12.0-16.0); Immature Granulocytes Abs Auto 0.01 10^3/uL (0.00-0.03); Immature Granulocytes Pct Auto 0.1 % (0.0-0.5); Lymphocytes Absolute Auto 2.7 10^3/uL (1.2-3.8); Lymphocytes Percent Auto 34.4 % (20.5-60.0); Mean Corpuscular HGB Conc 33.4 g/dL (29.9-35.2); Mean Corpuscular Hemoglobin 31.6 pg (26.7-34.0); Mean Corpuscular Volume 94.7 fL (81.0-99.0); Mean Platelet Volume 10.4 fL (9.5-13.5); Monocytes Absolute Auto 0.8 10^3/uL (0.3-0.8); Neutrophils Percent Auto 52.2 % (43.0-75.0); Platelet Count 242 10^3/uL (150-450); Red Blood Count 3.76 10^6/uL (4.20-5.40); Red Cell Distribution Width 12.8 % (11.0-15.0); White Blood Count 7.7 10^3/uL (4.0-11.0)
[2025-01-08 06:48] LABS: Estimated Average Glucose 148 mg/dL; Glycohemoglobin A1C 6.8 % (4.5-6.2)
[2025-01-08 06:53] LABS: Anion Gap 12.6; BUN Creatinine Ratio 23.2; Calcium 8.7 mg/dL (8.5-10.1); Carbon Dioxide 28.1 mmol/L (21.0-32.0); Chloride 108 mmol/L (98-107); Estimated GFR (African America >60 (>=60 mL/min/1.73m^2); Estimated GFR (Non-African Ame 56 (>=60 mL/min/1.73m^2); Glucose 74 mg/dL (74-106); Magnesium 1.8 mg/dL (1.8-2.4); Potassium 3.7 mmol/L (3.5-5.1); Sodium 145 mmol/L (136-145)
[2025-01-08 06:59] LABS: Troponin I High Sensitivity 126.3 pg/mL (4.0-51.3)
[2025-01-08 07:34] LABS: Glucometer 80 mg/dL (74-106)
[2025-01-08] MEDS: AMLODIPINE BESYLATE 5 MG TABLET 10 MG PO (08:44)
[2025-01-08] MEDS: BUPROPION HCL 150 MG XL TABLET 24H PO (08:45)
[2025-01-08] MEDS: ASPIRIN 81 MG TABLET.DR PO (08:45)
[2025-01-08] MEDS: CARVEDILOL 12.5 MG TABLET PO ×2 (08:46→21:13)
[2025-01-08] MEDS: ISOSORBIDE MONONITRATE 30 MG TAB.ER.24H PO (08:46)
[2025-01-08] MEDS: LISINOPRIL 20 MG TABLET 40 MG PO (08:47)
[2025-01-08] MEDS: PANTOPRAZOLE SODIUM 40 MG TABLET.DR PO ×2 (08:47→21:13)
[2025-01-08] MEDS: SPIRONOLACTONE 25 MG TABLET PO (08:47)
[2025-01-08] MEDS: OXcarbazepine 300 MG TABLET PO ×2 (08:47→21:13)
--- NOTE | 2025-01-08 08:51 | P.HP_ITS ---
HPI H&P: HPI History of Present Illness Chief complaint: HTN, ELEVATED TROPS Narrative: This is a 69 y.o female patient with a past medical history of multiple CVAs and MIs, DM2, HFpEF, hypertension, hyperlipidemia, Chronic low back pain, CAD s/p 2 cardiac stents, DM polyneuropathy and GERD who presented to the ER last night after a fall at home. She is scheduled for a back surgery at [facility] in the near future. Due to her back pain, this limits her mobility at home. She stood from her chair when her knee buckled and she fell. Her back struck the stool and her and son had to get her back to the chair. She is having Left knee pain. X-ray of the knee was negative for fracture but small effusion present. She also reports intermitted chest pain this week but none today. CT of the head was obtained which showed no acute process, CXR also showed no acute process. Patient had significantly elevated BP of 234/92 as patient states she was unable to take her medications since she fell. She was treated with Labetalol IV which improved BP. Troponin has been elevated [phone] with elevated proBNP of 1271, 1286; EKG showed LVH with normal sinus rhythm. WBC's 7.7, hb 11.9, K 3.7, Cr 0.99, ha1c 6.8. When reviewing records patient had Lexiscan stress test on 12/24/24 with normal imaging but EKG portion could not be interpreted. Last Echo 12/04/23 which showed significant LVH, EF 65-70% with grade 1 diastolic dysfunction. Patient was admitted for Hypertensive urgency and NSTEMI. She follows with Dr. Block of [facility] cardiology. She recently had stress test for cardiac clearance for her back surgery. Only complaint this morning is left knee pain that was improved with warm compress. She denies headache or chest pain. Opioid HPI Opioid Management Most Recent Pain and Opioid Data: Last Pain Scale 5 01/08/25 11:31 01/08/25 Last Pain Assessment 01/08/25 11:31 Last ED Pain Assessment 01/07/25 23:51 Last MAR Pain Assessment 01/08/25 00:32 Last ORT Total Score 0 01/08/25 02:59 01/08/25 Last ORT Risk Category Low Risk 01/08/25 02:59 01/08/25 Review of Systems ROS Narrative ROS: a complete review of systems were reviewed with patient and are positive as below or listed in History of Chief Complaint. General: no fever, chills, night sweats Head: no headache, trauma, visual changes, nausea or vomiting Skin: no reported rashes, itching or sores Eyes: no blurriness of vision Ears: no reported hearing loss, vertigo, earache, or tinnitus Throat: no sore throat, hoarseness, swelling of neck, or tongue pain Heart: no chest pain Lungs: no shortness of breath or cough GI: no diarrhea or vomiting/nausea Urinary: no urinary urgency, frequency or pain Neuro: no numbness or tingling HEM: no bleeding issues or bruising ENDO: no thyroid problems Psych: no anxiety or depression PF[facility] Medical History (Updated 01/08/25 @ 09:11 by Jaye Linn DO) Falls ?R29.6 - Repeated falls (ICD-10) GERD (gastroesophageal reflux disease) ?K21.9 - Gastro-esophageal reflux disease without esophagitis (ICD-10) Hypertension ?I10 - Essential (primary) hypertension (ICD-10) Cerebrovascular disease ?I67.9 - Cerebrovascular disease, unspecified (ICD-10) Type 2 diabetes mellitus with diabetic polyneuropathy ?E11.42 - Type 2 diabetes mellitus with diabetic polyneuropathy (ICD-10) CAD (coronary artery disease) ?I25.10 - Atherosclerotic heart disease of [place] coronary artery without angina pectoris (ICD-10) Chronic heart failure with preserved ejection fraction (HFpEF) ?I50.32 - Chronic diastolic (congestive) heart failure (ICD-10) Diabetes mellitus with hyperglycemia, with long-term current use of insulin ?E11.65 - Type 2 diabetes mellitus with hyperglycemia (ICD-10) ?Z79.4 - terminal gauger supervisor (current) use of insulin (ICD-10) Ductal carcinoma in situ (DCIS) of left breast ?D05.12 - Intraductal carcinoma in situ of left breast (ICD-10) Ataxia ?R27.0 - Ataxia, unspecified (ICD-10) Chronic shortness of breath ?R06.02 - Shortness of breath (ICD-10) Chest pain ?R07.9 - Chest pain, unspecified (ICD-10) Breast cancer ?C50.919 - Malignant neoplasm of unspecified site of unspecified female breast (ICD-10) Diabetes mellitus ?E11.9 - Type 2 diabetes mellitus without complications (ICD-10) Brain aneurysm ?I67.1 - Cerebral aneurysm, nonruptured (ICD-10) Congestive heart failure ?I50.9 - Heart failure, unspecified (ICD-10) Myocardial infarction ?I21.9 - Acute myocardial infarction, unspecified (ICD-10) Stroke ?I63.9 - Cerebral infarction, unspecified (ICD-10) Surgical History H/O heart artery stent ?Z95.5 - Presence of coronary angioplasty implant and graft (ICD-10) Family History Other Family history of CHF (congestive heart failure) Family history of hypertension Family history of myocardial infarction Family history of stroke Social History Within the past year, how often did you have a drink containing alcohol: monthly or less Within the past year, how many standard drinks containing alcohol did you have on a typical day: 1 or 2 Within the past year, how often did you have six or more drinks on one occasion: never Total score: 0 Score interpretation: A score less than 3 is consistent with normal alcohol consumption. Smoking status: Never smoker Non-prescribed substance use: denies use Previous occupational history: Retired Highest level of school completed/degree received: high school graduate Are you now , , , , never or living with a partner: In a typical week, how many times do you talk on the telephone with family, friends, or neighbors: 3 or more times per week How often do you get together with friends or relatives: 3 or more times per week Little interest or pleasure in doing things: not at all Feeling down, depressed, or hopeless: several days Feel stressed/tense/nervous/anxious/difficulty sleeping: not at all Do you think of yourself as: straight/heterosexual Gender Identity: female Meds Home Medications and Allergies Home Medications ?Medication ?Instructions ?Recorded ?Confirmed ?Type amlodipine 10 mg tablet 10 mg PO QDAY 06/16/23 01/08/25 History anastrozole 1 mg tablet 1 mg PO QDAY 06/16/23 01/08/25 History aspirin 81 mg capsule 81 mg PO DAILY 06/16/23 01/08/25 History atorvastatin 80 mg tablet 80 mg PO QDAY 06/16/23 01/08/25 History bupropion HCl 150 mg 24 hr tablet, 150 mg PO QDAY 06/16/23 01/08/25 History extended release carvedilol 12.5 mg tablet 12.5 mg PO BID 06/16/23 01/08/25 History clopidogrel 75 mg tablet 75 mg PO QDAY 06/16/23 01/08/25 History isosorbide mononitrate 30 mg 30 mg PO QDAY 06/16/23 01/08/25 History tablet,extended release 24 hr lisinopril 40 mg tablet 40 mg PO DAILY 06/16/23 01/08/25 History metformin 500 mg tablet,extended 500 mg PO BID 06/16/23 01/08/25 History release 24 hr oxcarbazepine 300 mg tablet 300 mg PO BID 06/16/23 01/08/25 History pantoprazole 40 mg tablet,delayed 40 mg PO Q12H 06/16/23 01/08/25 History release spironolactone 25 mg tablet 25 mg PO QDAY 06/16/23 01/08/25 History gabapentin 300 mg capsule 300 mg PO BEDTIME 02/11/24 01/08/25 History insulin lispro protamine-lispro 45 unit subcut .am 02/12/24 01/08/25 History 100 unit/mL (75-25) subcutaneous pen empagliflozin 10 mg tablet 10 mg PO DAILY 01/08/25 01/08/25 History (Jardiance) nitroglycerin 0.4 mg sublingual 0.4 mg sublingual Q5M PRN chest 01/08/25 01/08/25 History tablet pain nystatin 100,000 unit/gram topical 1 applic topical DAILY PRN rash 01/08/25 01/08/25 History powder Allergies Allergy/AdvReac Type Severity Reaction Status Date / Time Antihistamines - Alkylamine AdvReac Unknown Unknown Verified 01/07/25 20:32 Exam Narrative Exam Narrative: General: Patient is alert, and oriented to person, place and time with normal affect, proper hygiene Skin: no visible rashes, or ulcers Head: atraumatic, acephalic Eyes: PERRLA, no nystagmus present, conjunctiva clear, no scleral icterus Ears: normal gross auditory acuity Neck: no masses palpated Heart: Normal rate and rhythm, no murmurs/rubs/gallops Lungs: no audible wheezes, crackles and normal breath sounds all lung martin Abdomen: Normal audible bowel sounds, no distension, No palpable masses, no organomegaly, no rebound/guarding/ or rigidity Musculoskeletal: no swelling bilateral lower extremities, tenderness to palpation of the right knee patellar tendon and lateral compartment Neuro: CN II-X grossly intact, normal sensation upper and lower extremities Constitutional Vital Signs, click to edit/add: Last Vital Signs Temp 97.6 F 01/08/25 08:00 Pulse 62 01/08/25 08:00 Resp 18 01/08/25 08:00 BP 141/81 01/08/25 08:00 Pulse Ox 96 01/08/25 08:00 O2 Del Method Room Air 01/08/25 08:00 Results Labs Labs: Short CBC 01/07/25 01/08/25 Range/Units 20:50 06:05 WBC 6.3 7.7 (4.0-11.0) 10^3/uL Hgb 12.9 11.9 L (12.0-16.0) g/dL Hct 38.8 35.6 L (36.0-48.0) % Plt Count 252 242 (150-450) 10^3/uL BMP 01/07/25 01/08/25 20:50 06:05 Sodium 142 145 Potassium 3.9 3.7 Chloride 106 108 H Carbon Dioxide 29.4 28.1 BUN 17.0 23.0 H Creatinine 1.20 H 0.99 Glucose 178 H 74 Calcium 9.1 8.7 Liver Function 01/07/25 Range/Units 20:50 Total Bilirubin 0.2 (0.2-1.0) mg/dL AST 14 L (15-37) U/L ALT 21 (14-59) U/L Alkaline Phosphatase 86 (46-116) U/L Albumin 3.2 L (3.4-5.0) g/dL Urine 01/08/25 Range/Units 02:45 Urine Color Yellow (YELLOW) Urine Clarity Clear (CLEAR) Urine pH 6.0 (5.0-9.0) Ur Specific [place] 1.025 (1.005-1.025) Urine Protein 30 A (NEG/TRACE) mg/dL Urine Glucose (UA) 500 A (NEGATIVE) mg/dL Assessment and Plan Assessment and Plan (1) Hypertensive urgency: Assessment and Plan: BP improved with IV labetalol last night and administration of home meds. She denies any headache, chest pain. (2) Elevated troponin: Assessment and Plan: Patient with significant heart history, recent stress test. follows with [facility], takes aspirin, plavix and lipitor. I do think this is related in abrupt rise in blood pressure, but given upcoming back surgery, will get Cards consult. Echo today. Trops trending down. repeat at 1300 (3) UTI (urinary tract infection): Assessment and Plan: UA positive, continue IV rocephin Qualifiers: Hematuria presence: without hematuria Urinary tract infection type: acute cystitis Qualified Code(s): N30.00 - Acute cystitis without hematuria (4) DDD (degenerative disc disease), lumbosacral: Assessment and Plan: continue gabapentin Qualifiers: Disc-related pain type: unspecified whether pain present Qualified Code(s): M51.379 - Other intervertebral disc degeneration, lumbosacral region without mention of lumbar back pain or lower extremity pain (5) GERD (gastroesophageal reflux disease): Assessment and Plan: continue protonix Qualifiers: Esophagitis presence: without esophagitis Qualified Code(s): K21.9 - Gastro-esophageal reflux disease without esophagitis (6) Hypertension: Assessment and Plan: continue lisinopril, isosorbide, coreg, amlodipine Qualifiers: Hypertension type: primary hypertension Qualified Code(s): I10 - Essential (primary) hypertension (7) Cerebrovascular disease: Assessment and Plan: continue aspirin, plavix statin, CT head normal (8) Type 2 diabetes mellitus with diabetic polyneuropathy: Assessment and Plan: continue insulin long actiing and SSI, ha1c was 6.8 Qualifiers: Diabetes mellitus computer terminal operator insulin use: with computer terminal operator use Qualified Code(s): E11.42 - Type 2 diabetes mellitus with diabetic polyneuropathy; Z79.4 - senior living (current) use of insulin (9) CAD (coronary artery disease): Assessment and Plan: continue home meds Qualifiers: Associated angina: without angina Coronary Disease-Associated A rtery/Lesion type: [place] artery [place] vs. transplanted heart: [place] heart Qualified Code(s): I25.10 - Atherosclerotic heart disease of [place] coronary artery without angina pectoris (10) Chronic heart failure with preserved ejection fraction (HFpEF): Assessment and Plan: ProBNP 1271, no evidence of pul edema on CXR. Does not appear fluid overload. No acute exacerbation. Check ECHO, last 1 year ago (11) Diabetes mellitus with hyperglycemia, with long-term current use of insulin: Assessment and Plan: continue insulin Qualifiers: Diabetes mellitus type: type 2 Qualified Code(s): E11.65 - Type 2 diabetes mellitus with hyperglycemia; Z79.4 - terminal gauger supervisor (current) use of insulin Plan Patient is a full code continue apsirin and plavix patient is in observation status, get cards consult and Echo today, pt/ot evaluations.
--- NOTE | 2025-01-08 09:07 | CA_ITS ---
Patient Name: ORTEGA POWELL MR#: [id number] : 1955 Exam Date: 01/08/2025 Ordering Doctor: JACI ENG . ECHOCARDIOGRAM REPORT PROCEDURE: CA ECHO DOPPLER COMPLETE INDICATIONS: elevated trop and proBNP, h/o KY's, cardiac stents, heart failure with preserved ejection fraction, diabetes, hypertension COMPARISON: None. DESCRIPTION: COMPLETE ECHOCARDIOGRAM Real-time transthoracic echocardiography with 2D, M-mode, spectral and color flow Doppler performed. QUALITY: Technical quality was good. LEFT VENTRICLE: Normal chamber size. Mild left ventricular hypertrophy. LV EF: Global left ventricular systolic function is normal; visually estimated ejection fraction is 55 to 60%. No significant wall motion abnormalities. DIASTOLIC: Unable to assess diastolic function. ATRIAL SEPTUM: Visually appears intact. LEFT ATRIUM: Normal chamber size. RIGHT ATRIUM: Normal chamber size. RIGHT VENTRICLE: Normal chamber size. Normal right ventricular systolic function. TRICUSPID VALVE: Normal mobility and thickness. No stenosis with trivial regurgitation. Unable to assess right-sided pressures due to lack of measurable tricuspid regurgitation. MITRAL VALVE: Normal mobility and thickness. No evidence of mitral valve stenosis. Mild mitral annular calcification. No mitral regurgitation. AORTIC VALVE: Normal trileaflet appearance. No visible sclerosis. Normal leaflet mobility. No evidence of aortic valve stenosis. No aortic regurgitation. AORTIC ROOT: Normal diameter and appearance. PULMONIC VALVE: Normal thickness and mobility. No stenosis. No regurgitation. PERICARDIUM: Anterior free space; trivial effusion versus fat pad. IVC: Collapses with inspirations. IVC is normal in size. CONCLUSION: 1. Global left ventricular systolic function is normal; visually estimated ejection fraction is 55 to 60% 2. Normal right ventricular size and systolic function 3. Unable to assess diastolic function 4. The left atrium is normal in size 5. No significant valvular abnormalities 6. Anterior free space; trivial effusion versus fat pad Adult Echocardiography Procedure Report Left Ventricle LVEDD (3.7 - 5.6 cm): 3.82 cm LVESD (2.2 - 4.0 cm): 2.67 cm LVIVS thickness (0.6 - 1.2 cm): 1.02 cm LVPW thickness (0.5 - 1.0 cm): 1.23 cm e': 0.06 m/s E - e': 6.33 LVOT Max Gradient: 7.31 mm[Hg] LVOT Area (cm2): 1.35 m/s Peak Velocity (LVOT): 1.35 m/s Mean Velocity (LVOT): 0.78 m/s LVOT Diameter 2.02 cm Left Atrium LA Volume Index (2D A2C): 23.89 ml/m2 Left Atrium Systolic Dimension: 2.81 cm Mitral Valve MV E to A Ratio: 0.47 Mitral Valve A-Wave Peak Velocity: 0.76 m/s Mitral Valve E-Wave Peak Velocity: 0.36 m/s Right Ventricle Aorta AO Root Diam: 3.06 cm Aortic Valve AoV Area (Peak Daniel): 2.08 cm2, 2.08 cm2 AoV Area (VTI): 2.44 cm2, 2.44 cm2 Peak Velocity(Antegrade Flow): 2.09 m/s Peak Gradient(Antegrade Flow): 17.52 mm[Hg] Mean Velocity(Antegrade Flow): 1.30 m/s Mean Gradient(Antegrade Flow): 8.36 mm[Hg] Velocity Time Integral: 34.81 cm Tricuspid Valve Pulmonic Valve Mean Gradient: 2.73 mm[Hg] Mean Velocity: 0.74 m/s Peak Velocity: 1.22 m/s, 1.22 m/s Peak Gradient: 5.91 mm[Hg], 5.99 mm[Hg] Right Atrium Right Atrium Systolic Pressure: 39.01 ml, 39.01 ml Dictated by: Garrett Mcdonald M.D. on 01/08/2025 at 14:18 Approved by: Garrett Mcdonald M.D. on 01/08/2025 at 14:21
[2025-01-08] MEDS: PNEUMOC 20-VAL CONJ-DIP CRM/PF 0.5 ML SYRINGE IM (10:49)
--- NOTE | 2025-01-08 12:06 | CM.NOTE ---
Rounds made with Dr. Luis Enrique Linn. Dr. Luis Enrique Linn discussed test results and treatment plan with Kyle. Plan is to get Cardiology consult, echo, PT/OT evals, pain control. No plan for discharge today.
--- NOTE | 2025-01-08 12:10 | ECG_ITS ---
[facility] Test Date: 2025-01-08 Pat Name: ORTEGA POWELL Department: Room: [facility] Gender: Female Title I Assistant: : 1955 Requested By: Sujey Arzola Order Number: [id number] Reading MD: GLADYS YUNG M.D. Measurements Intervals [place] Rate: 61 P: -32 AR: 156 QRS: -7 QRSD: 112 T: -1 QT: 413 QTc: 416 Interpretive Statements SINUS RHYTHM LEFT VENTRICULAR HYPERTROPHY AND ST-T CHANGE [VOLTAGE CRITERIA PLUS ST/T ABNORMALITY] Abnormal ECG Compared to ECG 01/08/2025 00:22:50 No significant changes Electronically Signed On 01-09-2025 5:16:50 EDT by GLADYS YUNG M.D.
[2025-01-08] MEDS: ONDANSETRON PF 4 MG/2 ML VIAL IV ×3 (12:32→21:13)
[2025-01-08 13:43] LABS: Troponin I High Sensitivity 71.1 pg/mL (4.0-51.3)
[2025-01-08] MEDS: DICLOFENAC SODIUM 1% 100 GM TUBE TOPICAL ×2 (14:10→21:14)
--- NOTE | 2025-01-08 14:24 | SWNOTE1 ---
Medicare Outpatient Observation Notice reviewed and discussed with patient. Pt. verbalized understanding and signed the form. Original given to patient and copy placed in patient?s chart.
--- NOTE | 2025-01-08 14:25 | SWNOTE1 ---
SW met with pt to discuss dc needs. Pt lives at home with her . Pt uses a rollator at home to get around. Recommendations of home health services. Pt is agreeable to this. Pt does not have a preference on HH company, just someone that is good and takes her insurance. Pt has no other concerns about discharge at this time. SW is not sure which HH company takes [place] Medicare adv plan, but will call around. Referral sent to [facility]. Referral included face sheet, ED note, H&P, provider notes, case management report, and PT/OT notes.
--- NOTE | 2025-01-08 14:33 | SWNOTE1 ---
SW also spoke with case management and pt had applied for passport services and has not heard anything back. SW let pt know that SW is able to reach out to a passport home health care case manager to see if they can provide SW with any details as to where they are at in process. SW asked permission to provide home health care case manager with pt's name? Pt voiced it was alright. ARACELI reached out to Amelia at [facility] about pt, waiting to hear back.
--- NOTE | 2025-01-08 14:42 | SWNOTE1 ---
ARACELI heard back from Amelia at [facility]. She stated that pt's Medicaid has been denied due to not submitting the required verification documents. Pt needs to contact Jayshree Foster at [employer] at [phone] to see what documents still need submitted to get her Medicaid approved. She stated pt can not move forward with Passport until her Medicaid is resolved. ARACELI let pt know this and provided with number.
--- NOTE | 2025-01-08 14:48 | SWNOTE1 ---
SW did offer to call pt's renal case manager with her from [facility], but felt nauseous and felt she was going to get sick and did not want to call at this time. ARACELI to stop back in tomorrow to see if pt feeling better and offer to call with pt.
--- NOTE | 2025-01-08 15:57 | SWNOTE1 ---
SW received a call from [facility] and they are able to accept.
[2025-01-08] MEDS: INSULIN NPH 70-30 100UNIT/ML VIAL (10ML) 55 UNIT SUBQ (16:55)
[2025-01-08 17:00] LABS: Glucometer 169 mg/dL (74-106)
--- NOTE | 2025-01-08 17:18 | PM.CACN ---
History of Present Illness History of Present Illness Consult date: 01/08/25 Requesting physician: Jaye Linn Consult reason: chest pain Chief complaint: HTN, ELEVATED TROPS Narrative: Patient is a 69 y/o F with known medical history of CAD with prior PCI (BJ to LAD with instent restenosis), HTN, DM type II on insulin, venous insufficiency, HLD, MAYTE, hx CVA - 8, hx GI bleed, HFpEF, degenerative disc disease who presented to [facility] with c/o a fall. She reports that her left knee buckled and caused her to go down. She doesn't recall the events after this, she states she blacked out at some point and doesn't remember the fall. When she presented to the emergency room, her BP was 230s/90s. She noted that she had not taken her BP medications that day due to not wanting to walk over to get them due to pain and fear of falling. Her HsTroponin was mildly elevated at 106, 125, 130, 126, and trended down to 72 this afternoon. Her BNP was elevated at 1270. CXR was unremarkable for any acute findings. EKGs negative for any new findings. ECHO today showed preserved LVEF, no significant valve abnormalities, no evidence of fluid overload. Pt recently underwent a stress test for pre-op evaluation. The nuclear imaging showed no evidence of ischemia. Her reported that she had an episode of midsternal chest pain earlier in the week that lasted maybe a minute or as she was walking back from the bathroom. Patient seen and examined at bedside this afternoon. Her was also at bedside. She reports she overall feels well except for pain in her left knee and some nausea/vomiting after she ate lunch. Denies c/o CP, dyspnea at rest, orthopnea, PND, LE edema, dizziness/LH, palpitations. She reports GARCIA that is unchanged for her. Her notes that her memory has been worsening and she has become more forgetful. Review of Systems ROS Status of ROS 10 or more systems reviewed and unremarkable except as noted in history and below Respiratory Reports: shortness of breath [facility] Medical History (Updated 01/08/25 @ 09:11 by Jaye Linn, DO) Falls ?R29.6 - Repeated falls (ICD-10) GERD (gastroesophageal reflux disease) ?K21.9 - Gastro-esophageal reflux disease without esophagitis (ICD-10) Hypertension ?I10 - Essential (primary) hypertension (ICD-10) Cerebrovascular disease ?I67.9 - Cerebrovascular disease, unspecified (ICD-10) Type 2 diabetes mellitus with diabetic polyneuropathy ?E11.42 - Type 2 diabetes mellitus with diabetic polyneuropathy (ICD-10) CAD (coronary artery disease) ?I25.10 - Atherosclerotic heart disease of [place] coronary artery without angina pectoris (ICD-10) Chronic heart failure with preserved ejection fraction (HFpEF) ?I50.32 - Chronic diastolic (congestive) heart failure (ICD-10) Diabetes mellitus with hyperglycemia, with long-term current use of insulin ?E11.65 - Type 2 diabetes mellitus with hyperglycemia (ICD-10) ?Z79.4 - termite control servicer (current) use of insulin (ICD-10) Ductal carcinoma in situ (DCIS) of left breast ?D05.12 - Intraductal carcinoma in situ of left breast (ICD-10) Ataxia ?R27.0 - Ataxia, unspecified (ICD-10) Chronic shortness of breath ?R06.02 - Shortness of breath (ICD-10) Chest pain ?R07.9 - Chest pain, unspecified (ICD-10) Breast cancer ?C50.919 - Malignant neoplasm of unspecified site of unspecified female breast (ICD-10) Diabetes mellitus ?E11.9 - Type 2 diabetes mellitus without complications (ICD-10) Brain aneurysm ?I67.1 - Cerebral aneurysm, nonruptured (ICD-10) Congestive heart failure ?I50.9 - Heart failure, unspecified (ICD-10) Myocardial infarction ?I21.9 - Acute myocardial infarction, unspecified (ICD-10) Stroke ?I63.9 - Cerebral infarction, unspecified (ICD-10) Surgical History H/O heart artery stent ?Z95.5 - Presence of coronary angioplasty implant and graft (ICD-10) Family History Other Family history of CHF (congestive heart failure) Family history of hypertension Family history of myocardial infarction Family history of stroke Social History Within the past year, how often did you have a drink containing alcohol: monthly or less Within the past year, how many standard drinks containing alcohol did you have on a typical day: 1 or 2 Within the past year, how often did you have six or more drinks on one occasion: never Total score: 0 Score interpretation: A score less than 3 is consistent with normal alcohol consumption. Smoking status: Never smoker Non-prescribed substance use: denies use Previous occupational history: Retired Highest level of school completed/degree received: high school graduate Are you now , , , , never or living with a partner: In a typical week, how many times do you talk on the telephone with family, friends, or neighbors: 3 or more times per week How often do you get together with friends or relatives: 3 or more times per week Little interest or pleasure in doing things: not at all Feeling down, depressed, or hopeless: several days Feel stressed/tense/nervous/anxious/difficulty sleeping: not at all Do you think of yourself as: straight/heterosexual Gender Identity: female Meds Home Medications and Allergies Home Medications ?Medication ?Instructions ?Recorded ?Confirmed ?Type amlodipine 10 mg tablet 10 mg PO QDAY 06/16/23 01/08/25 History anastrozole 1 mg tablet 1 mg PO QDAY 06/16/23 01/08/25 History aspirin 81 mg capsule 81 mg PO DAILY 06/16/23 01/08/25 History atorvastatin 80 mg tablet 80 mg PO QDAY 06/16/23 01/08/25 History bupropion HCl 150 mg 24 hr tablet, 150 mg PO QDAY 06/16/23 01/08/25 History extended release carvedilol 12.5 mg tablet 12.5 mg PO BID 06/16/23 01/08/25 History clopidogrel 75 mg tablet 75 mg PO QDAY 06/16/23 01/08/25 History isosorbide mononitrate 30 mg 30 mg PO QDAY 06/16/23 01/08/25 History tablet,extended release 24 hr lisinopril 40 mg tablet 40 mg PO DAILY 06/16/23 01/08/25 History metformin 500 mg tablet,extended 500 mg PO BID 06/16/23 01/08/25 History release 24 hr oxcarbazepine 300 mg tablet 300 mg PO BID 06/16/23 01/08/25 History pantoprazole 40 mg tablet,delayed 40 mg PO Q12H 06/16/23 01/08/25 History release spironolactone 25 mg tablet 25 mg PO QDAY 06/16/23 01/08/25 History gabapentin 300 mg capsule 300 mg PO BEDTIME 02/11/24 01/08/25 History empagliflozin 10 mg tablet 10 mg PO DAILY 01/08/25 01/08/25 History (Jardiance) insulin NPH-regular 70-30 U-100 45 unit subcut DAILY 01/08/25 01/08/25 History insulin 100 unit/mL subcutaneous pen (Novolin 70-30 FlexPen U-100 Insulin) nitroglycerin 0.4 mg sublingual 0.4 mg sublingual Q5M PRN chest 01/08/25 01/08/25 History tablet pain nystatin 100,000 unit/gram topical 1 applic topical DAILY PRN rash 01/08/25 01/08/25 History powder Allergies Allergy/AdvReac Type Severity Reaction Status Date / Time Antihistamines - Alkylamine AdvReac Unknown Unknown Verified 01/07/25 20:32 Exam Constitutional Vital Signs, click to edit/add: Last Vital Signs Temp 98.7 F 01/08/25 16:59 Pulse 66 01/08/25 16:59 Resp 18 01/08/25 16:59 BP 153/72 H 01/08/25 16:59 Pulse Ox 94 L 01/08/25 16:59 O2 Del Method Room Air 01/08/25 16:59 Common normals: no apparent distress, oriented x3 and alert General appearance: cooperative [facility] Common normals: normocephalic and head/scalp atraumatic Eye Common normals: PERRL, EOMs intact bilaterally and conjunctivae normal Neck & C-Spine Common normals: full ROM and no JVD Respiratory Common normals: normal respiratory effort, no use of accessory muscles and clear to auscultation bilaterally Cardio Common normals: no JVD, regular rate, regular rhythm, S1 normal heart sound, S2 normal heart sound, no gallops, no clicks, no murmurs and peripheral pulses 2+ throughout GI Common normals: Normal to inspection, nondistended, normoactive bowel sounds present Extremity Common normals: normal to inspection and no clubbing, cyanosis or edema Neuro Common normals: oriented x3 and moves all extremities Psych Common normals: mental status grossly normal, thought process normal and cooperative Results Labs and Meds Lab results: Cardiac Enzymes 01/07/25 Range/Units 20:50 AST 14 L (15-37) U/L CBC 01/07/25 01/08/25 Range/Units 20:50 06:05 WBC 6.3 7.7 (4.0-11.0) 10^3/uL RBC 4.15 L 3.76 L (4.20-5.40) 10^6/uL Hgb 12.9 11.9 L (12.0-16.0) g/dL Hct 38.8 35.6 L (36.0-48.0) % Plt Count 252 242 (150-450) 10^3/uL Neut # (Auto) 4.2 4.0 (1.4-6.5) 10^3/uL Lymph # (Auto) 1.4 2.7 (1.2-3.8) 10^3/uL [place] # (Auto) 0.5 0.8 (0.3-0.8) 10^3/uL Eos # (Auto) 0.1 0.2 (0.0-0.7) 10^3/uL Baso # (Auto) 0.0 0.0 (0.0-0.1) 10^3/uL Comprehensive Metabolic Panel 01/07/25 01/08/25 Range/Units 20:50 06:05 Sodium 142 145 (136-145) mmol/L Potassium 3.9 3.7 (3.5-5.1) mmol/L Chloride 106 108 H (98-107) mmol/L Carbon Dioxide 29.4 28.1 (21.0-32.0) mmol/L BUN 17.0 23.0 H (7.0-18.0) mg/dL Creatinine 1.20 H 0.99 (0.55-1.02) mg/dL Glucose 178 H 74 (74-106) mg/dL Calcium 9.1 8.7 (8.5-10.1) mg/dL AST 14 L (15-37) U/L ALT 21 (14-59) U/L Alkaline Phosphatase 86 (46-116) U/L Total Protein 7.2 (6.4-8.2) g/dL Albumin 3.2 L (3.4-5.0) g/dL Intake and Output 01/08/25 01/08/25 01/08/25 07:59 15:59 23:59 Intake Total 50 / 50 Output Total 250 / 250 200 / 200 Balance -200 / -200 -200 / -200 Intake: IV 50 / 50 Ceftriaxone 1,000 mg In 0.9 % 50 / 50 Sodium Chloride 50 ml @ 100 mls /hr IV Q24H [facility] Rx#:[id number] Output: Urine 250 / 250 200 / 200 Other: # Unmeasured Emesis Episodes 1 1 Weight 89.7 kg Imaging and Cardiology Echo: report reviewed (01/08/25: preserved LVEF, no significant valvue abnormalities, no signs of fluid overload) ECG results: image reviewed Assessment and Plan Assessment and Plan (1) Hypertensive urgency: (2) Elevated troponin: (3) UTI (urinary tract infection): Qualifiers: Urinary tract infection type: acute cystitis Hematuria presence: without hematuria Qualified Code(s): N30.00 - Acute cystitis without hematuria (4) DDD (degenerative disc disease), lumbosacral: Qualifiers: Disc-related pain type: unspecified whether pain present Qualified Code(s): M51.379 - Other intervertebral disc degeneration, lumbosacral region without mention of lumbar back pain or lower extremity pain (5) GERD (gastroesophageal reflux disease): Qualifiers: Esophagitis presence: without esophagitis Qualified Code(s): K21.9 - Gastro-esophageal reflux disease without esophagitis (6) Hypertension: Qualifiers: Hypertension type: primary hypertension Qualified Code(s): I10 - Essential (primary) hypertension (7) Cerebrovascular disease: (8) Type 2 diabetes mellitus with diabetic polyneuropathy: Qualifiers: Diabetes mellitus termite technician insulin use: with assisted use Qualified Code(s): E11.42 - Type 2 diabetes mellitus with diabetic polyneuropathy; Z79.4 - termite control servicer (current) use of insulin (9) CAD (coronary artery disease): Qualifiers: Coronary Disease-Associated Artery/Lesion type: [place] artery [place] vs. transplanted heart: [place] heart Associated angina: without angina Qualified Code(s): I25.10 - Atherosclerotic heart disease of [place] coronary artery without angina pectoris (10) Chronic heart failure with preserved ejection fraction (HFpEF): (11) Diabetes mellitus with hyperglycemia, with long-term current use of insulin: Qualifiers: Diabetes mellitus type: type 2 Qualified Code(s): E11.65 - Type 2 diabetes mellitus with hyperglycemia; Z79.4 - group home (current) use of insulin Plan #NSTEMI type II in the setting of hypertensive urgency, recent fall, UTI -HsTroponin peaked at 130 and down trended to 72 this afternoon -Denies any c/o chest pain since her admission -EKGs show no changes to her previous EKGs -Recent stress test 11/2024 showed normal myocardial perfusion on nuclear imaging -ECHO today showed preserved LVEF, no RWMA -No further cardiac testing indicated at this time. Continue medical management for CAD with ASA, statin, BB, plavix, imdur. #HFpEF, chronic -No signs of fluid overload on exam -Continue spironolactone 25mg daily along with Jardiance 10mg daily. #HTN -Better controlled. Hypertensive urgency related to missing doses of her anti-hypertensive medications at home. -Continue amlodipine 10mg daily, coreg 12.5mg BID, imdur 30mg daily, lisinopril 40mg daily. #Fall -Given her report of not remembering the fall and to complete work-up for possible syncope, will place a 30 day event monitor at discharge to rule out bradyarrhythmias. #Pre-op eval -No objections for patient to proceed with her upcoming planned back surgery from a cardiac standpoint. Discussed plan with cardiology attending Dr. Carter along with hospitalist Dr. Linn. Both agree with the plan. Follow-up with cardiology in 5-6 weeks. Thank you for the consult. Please let us know if any further questions or concerns. Sujey Arzola APRN-SOFTWARE QUALITY TEST ENGINEER [facility] Cardiovascular Medicine
[2025-01-08] MEDS: ATORVASTATIN CALCIUM 40 MG TABLET 80 MG PO (21:13)
[2025-01-08] MEDS: GABAPENTIN 300 MG CAPSULE PO (21:13)
[2025-01-09] VITALS (18 sets, daily range): BP systolic 117–153; BP diastolic 57–71; PULSE 54–72; TEMP 36.7–36.9; O2SAT 90–93; BMI 35.0
[2025-01-09] MEDS: ONDANSETRON PF 4 MG/2 ML VIAL IV (01:20)
[2025-01-09] MEDS: CEFTRIAXONE 1,000 MG in 0.9 % SODIUM CHLORIDE 50 ML 100 MG IV (05:23)
[2025-01-09] MEDS: DICLOFENAC SODIUM 1% 100 GM TUBE TOPICAL ×3 (05:27→22:13)
[2025-01-09 06:19] LABS: Basophils Percent Auto 0.3 % (0.2-2.0); Eosinophils Absolute Auto 0.2 10^3/uL (0.0-0.7); Eosinophils Percent Auto 1.4 % (0.9-7.0); Hematocrit 38.2 % (36.0-48.0); Hemoglobin 12.4 g/dL (12.0-16.0); Immature Granulocytes Abs Auto 0.03 10^3/uL (0.00-0.03); Immature Granulocytes Pct Auto 0.3 % (0.0-0.5); Lymphocytes Absolute Auto 2.2 10^3/uL (1.2-3.8); Lymphocytes Percent Auto 20.9 % (20.5-60.0); Mean Corpuscular HGB Conc 32.5 g/dL (29.9-35.2); Mean Corpuscular Hemoglobin 30.7 pg (26.7-34.0); Mean Corpuscular Volume 94.6 fL (81.0-99.0); Mean Platelet Volume 10.6 fL (9.5-13.5); Monocytes Absolute Auto 0.9 10^3/uL (0.3-0.8); Monocytes Percent Auto 8.2 % (1.7-12.0); Neutrophils Absolute Auto 7.1 10^3/uL (1.4-6.5); Neutrophils Percent Auto 68.9 % (43.0-75.0); Platelet Count 253 10^3/uL (150-450); Red Blood Count 4.04 10^6/uL (4.20-5.40); Red Cell Distribution Width 12.8 % (11.0-15.0); White Blood Count 10.4 10^3/uL (4.0-11.0)
[2025-01-09 06:36] LABS: Anion Gap 10.2; BUN Creatinine Ratio 22.8; Calcium 9.1 mg/dL (8.5-10.1); Carbon Dioxide 32.3 mmol/L (21.0-32.0); Chloride 101 mmol/L (98-107); Estimated GFR (African America 57 (>=60 mL/min/1.73m^2); Estimated GFR (Non-African Ame 47 (>=60 mL/min/1.73m^2); Glucose 145 mg/dL (74-106); Potassium 3.5 mmol/L (3.5-5.1); Sodium 140 mmol/L (136-145)
[2025-01-09 08:06] LABS: Glucometer 117 mg/dL (74-106)
--- NOTE | 2025-01-09 08:06 | PM.DS1 ---
DS: Providers Provider Date of admission: 01/08/25 02:34 Primary care physician: KAREN OSMAN Attending physician on admission: Jaye Linn Consults: 01/08/25 Consult to Dietitian Routine Reason for consultation: diabetic 01/08/25 09:06 Consult to Cardiology Routine Reason for consultation: elevated trop, hypertensive urgency Has provider been notified: No 01/08/25 09:09 Occupational Therapy Eval and Treat Routine Reason for consultation: knee and back pain Has provider been notified: No Physical Therapy Eval and Treat Routine Reason for consultation: knee and back pain Has provider been notified: No Discharging clinician: Jaye Linn DS: Diagnosis Discharge Diagnosis (1) Hypertensive urgency: (2) Elevated troponin: (3) UTI (urinary tract infection): Qualifiers: Hematuria presence: without hematuria Urinary tract infection type: acute cystitis Qualified Code(s): N30.00 - Acute cystitis without hematuria (4) DDD (degenerative disc disease), lumbosacral: Qualifiers: Disc-related pain type: unspecified whether pain present Qualified Code(s): M51.379 - Other intervertebral disc degeneration, lumbosacral region without mention of lumbar back pain or lower extremity pain (5) GERD (gastroesophageal reflux disease): Qualifiers: Esophagitis presence: without esophagitis Qualified Code(s): K21.9 - Gastro-esophageal reflux disease without esophagitis (6) Hypertension: Qualifiers: Hypertension type: primary hypertension Qualified Code(s): I10 - Essential (primary) hypertension (7) Cerebrovascular disease: (8) Type 2 diabetes mellitus with diabetic polyneuropathy: Qualifiers: Diabetes mellitus senior living insulin use: with rn long term care use Qualified Code(s): E11.42 - Type 2 diabetes mellitus with diabetic polyneuropathy; Z79.4 - halfway (current) use of insulin (9) CAD (coronary artery disease): Qualifiers: Associated angina: without angina Coronary Disease-Associated Artery/Lesion type: [place] artery [place] vs. transplanted heart: [place] heart Qualified Code(s): I25.10 - Atherosclerotic heart disease of [place] coronary artery without angina pectoris (10) Chronic heart failure with preserved ejection fraction (HFpEF): (11) Diabetes mellitus with hyperglycemia, with long-term current use of insulin: Qualifiers: Diabetes mellitus type: type 2 Qualified Code(s): E11.65 - Type 2 diabetes mellitus with hyperglycemia; Z79.4 - halfway (current) use of insulin DS: Summary Hospital Course Hospital Course: This is a 69 y.o female patient with a past medical history of multiple CVAs and MIs, DM2, HFpEF, hypertension, hyperlipidemia, Chronic low back pain, CAD s/p 2 cardiac stents, DM polyneuropathy and GERD who presented to the ER after a fall at home. She is scheduled for a back surgery at [facility] in the near future. Due to her back pain, this limits her mobility at home. She stood from her chair when her knee buckled and she fell. Her back struck the stool and her and son had to get her back to the chair. She is having Left knee pain. X-ray of the knee was negative for fracture but small effusion present. She also reports intermitted chest pain this week but none today. CT of the head was obtained which showed no acute process, CXR also showed no acute process. Patient had significantly elevated BP of 234/92 as patient states she was unable to take her medications since she fell. She was treated with Labetalol IV which improved BP. Troponin has been elevated [phone] with elevated proBNP of 1271, 1286; EKG showed LVH with normal sinus rhythm. WBC's 7.7, hb 11.9, K 3.7, Cr 0.99, ha1c 6.8. When reviewing records patient had Lexiscan stress test on 12/24/24 with normal imaging but EKG portion could not be interpreted. Last Echo 12/04/23 which showed significant LVH, EF 65-70% with grade 1 diastolic dysfunction. Patient was admitted for Hypertensive urgency and NSTEMI. She follows with Dr. Block of [facility] cardiology. She recently had stress test for cardiac clearance for her back surgery. Echo yesterday was unchanged. Cardiology consult recommended 30 day event monitor which was placed at the time of discharge and she has close cardiology follow up. Troponins trended down. BP was controlled. Most likely troponin was due to elevated BP. Patient started to get some nausea and vomiting last night. Zofran helped. Normal labs this morning. I discussed with her could be virus. I will treat UTI with Cipro 250mg BID. Urine culture is pending at the time of discharge. I have also sent in Zofran for her to take. She has close follow up with her PCP and 30 day event monitor on. She will be discharged home today in stable condition. Status at Discharge Functional status at discharge: uses cane/walker Overall status at discharge: patient is back to baseline Time Spent with Patient Time attestation: Total time spent providing and/or coordinating discharge services: Time spent: greater than 30 minutes Exam Narrative Exam Narrative: General: Patient is alert, and oriented to person, place and time with normal affect, proper hygiene Skin: no visible rashes, or ulcers Head: atraumatic, acephalic Eyes: PERRLA, no nystagmus present, conjunctiva clear, no scleral icterus Ears: normal gross auditory acuity Neck: no masses palpated Heart: Normal rate and rhythm, no murmurs/rubs/gallops Lungs: no audible wheezes, crackles and normal breath sounds all lung martin Abdomen: Normal audible bowel sounds, no distension, No palpable masses, no organomegaly, no rebound/guarding/ or rigidity Musculoskeletal: no swelling bilateral lower extremities, tenderness to palpation of the right knee patellar tendon and lateral compartment Neuro: CN II-X grossly intact, normal sensation upper and lower extremities Constitutional Vital Signs, click to edit/add: Last Vital Signs Temp 98.3 F 01/09/25 04:00 Pulse 61 01/09/25 08:00 Resp 16 01/09/25 04:00 BP 152/70 H 01/09/25 04:00 Pulse Ox 90 L 01/09/25 04:00 O2 Del Method Room Air 01/09/25 04:00 DS: Data Data Completed and Pending Labs on day of discharge: Labs from last 24 hours 01/09/25 01/08/25 01/08/25 05:50 16:52 13:12 WBC 10.4 RBC 4.04 L Hgb 12.4 Hct 38.2 MCV 94.6 MCH 30.7 MCHC 32.5 RDW 12.8 Plt Count 253 MPV 10.6 Neut % (Auto) 68.9 Lymph % (Auto) 20.9 [place] % (Auto) 8.2 Eos % (Auto) 1.4 Baso % (Auto) 0.3 Neut # (Auto) 7.1 H Lymph # (Auto) 2.2 [place] # (Auto) 0.9 H Eos # (Auto) 0.2 Baso # (Auto) 0.0 Abs Immat Gran (auto) 0.03 Imm/Tot Granulo (auto) 0.3 Sodium 140 Potassium 3.5 Chloride 101 Carbon Dioxide 32.3 H Anion Gap 10.2 BUN 26.0 H Creatinine 1.14 H Est GFR ( Amer) 57 L Est GFR (Non-Af Amer) 47 L BUN/Creatinine Ratio 22.8 Glucose 145 H Calcium 9.1 Troponin I High Sens 71.1 H* POC Glucose 169 H Preliminary micro results at discharge 01/08/25 02:45 Urine Culture - Preliminary Urine,Clean Catch Pending - Specimen sent to [facility] Discharge Plan Discharge Disposition: Home Health Service Discharge Medications: New ondansetron 4 mg tablet,disintegrating 4 mg PO Q8H PRN (Reason: nausea and vomiting) 5 Days Qty: 20 0RF ciprofloxacin HCl 250 mg tablet 250 mg PO Q12H 7 Days Qty: 14 0RF Continued amlodipine 10 mg tablet 10 mg PO QDAY anastrozole 1 mg tablet 1 mg PO QDAY atorvastatin 80 mg tablet 80 mg PO QDAY bupropion HCl 150 mg tablet extended release 24 hr 150 mg PO QDAY carvedilol 12.5 mg tablet 12.5 mg PO BID clopidogrel 75 mg tablet 75 mg PO QDAY isosorbide mononitrate 30 mg tablet extended release 24 hr 30 mg PO QDAY lisinopril 40 mg tablet 40 mg PO DAILY metformin 500 mg tablet extended release 24 hr 500 mg PO BID pantoprazole 40 mg tablet,delayed release (DR/EC) 40 mg PO Q12H spironolactone 25 mg tablet 25 mg PO QDAY aspirin 81 mg capsule 81 mg PO DAILY oxcarbazepine 300 mg tablet 300 mg PO BID gabapentin 300 mg capsule 300 mg PO BEDTIME Jardiance 10 mg tablet 10 mg PO DAILY nitroglycerin 0.4 mg tablet, sublingual 0.4 mg sublingual Q5M PRN (Reason: chest pain) nystatin 100,000 unit/gram powder 1 applic TOPICAL DAILY PRN (Reason: rash) Novolin 70-30 FlexPen U-100 100 unit/mL (70-30) insulin pen 45 unit SUBCUT DAILY Rx Instructions: 45 units at breakfast, 55 units at supper Activity: ambulate only with your walker Diet: diabetic diet Print Language: Green[place]ic Patient Instructions: Chest Pain (DC), Weakness (DC), Hypertension (DC), Holter Monitor (GEN) Forms: Portal Instructions Follow Up Appointments: January 14 @ 11:30am with Dr. Osman [phone] . February 19 @ 10:30am with [facility] [phone] Patient with 30 Day Event Monitor
[2025-01-09] MEDS: PANTOPRAZOLE SODIUM 40 MG TABLET.DR PO ×2 (08:38→22:13)
[2025-01-09] MEDS: SPIRONOLACTONE 25 MG TABLET PO (08:38)
[2025-01-09] MEDS: AMLODIPINE BESYLATE 5 MG TABLET 10 MG PO (08:39)
[2025-01-09] MEDS: LISINOPRIL 20 MG TABLET 40 MG PO (08:39)
[2025-01-09] MEDS: ASPIRIN 81 MG TABLET.DR PO (08:39)
[2025-01-09] MEDS: CLOPIDOGREL BISULFATE 75 MG TABLET PO (08:39)
[2025-01-09] MEDS: BUPROPION HCL 150 MG XL TABLET 24H PO (08:39)
[2025-01-09] MEDS: ISOSORBIDE MONONITRATE 30 MG TAB.ER.24H PO (08:39)
[2025-01-09] MEDS: OXcarbazepine 300 MG TABLET PO ×2 (08:39→22:13)
[2025-01-09] MEDS: CARVEDILOL 12.5 MG TABLET PO ×2 (08:39→22:13)
[2025-01-09] MEDS: INSULIN NPH 70-30 100UNIT/ML VIAL (10ML) 45 UNIT SUBQ (10:37)
--- NOTE | 2025-01-09 11:00 | CM.NOTE ---
Rounds made [facility] Dr. Linn, pt will discharge this afternoon. Pt will be set up with [facility] and cardiology. Pt will also have 30 day event monitor.
--- NOTE | 2025-01-09 11:29 | PT.DAILY ---
Physical Therapy Daily Note PT Daily Note/Assess Start: 01/09/25 11:22 Freq: Status: Active Protocol: Document 01/09/25 11:00 MARISSA (Rec: 01/09/25 11:29 MARISSA [id number]) Physical Therapy Daily Note/Assessment Time In/Time Out Time In 10:58 Time Out 11:14 Subjective Subjective Patient reports feeling good today and has no complaints. Therapeutic Exercise Time Therapeutic Exercise 6 Minutes (minutes) Therapeutic Exercise 0 Units Therapeutic Exercise Treatment Therapeutic Exercise Seated Exercises: Treatment Marches x 10 LAQ x 10 HR/TR x 10 Hip abd x 5 Patient requesting to stop exercises and lay down due to feeling light headed. Therapeutic Activity Time Therapeutic Activity 10 Minutes (minutes) Therapeutic Activity 0 Units Therapeutic Activity Treatment Bed Mobility Ability Minimum Assist Chair Transfer Minimum Assist Ability Therapeutic Activity Patient ambulated 15 x 2 with RW CGA required for Comments safety. Sit to stand transfer from toilet MIN A. Patient reports mild pain in L LE during transfer but is able to complete transfer. Total Physical Therapy Time Total Therapy 16 Minutes Total Physical 0 Therapy Units Summary Daily Note Summary Patient able to complete exercises and ambulation, reporting mild pain in L LE during transfer and exercises. Improved ability with ambulation today, requiring less assistance. Patient reports becoming light headed during seated exercises and requests to stop and lay down. Patient in bed with rails up, alarm on, and all needs met post treatment.
--- NOTE | 2025-01-09 14:46 | SWNOTE1 ---
SW spoke to pt about discharge plans. Pt and were inquiring about group home. SW let her know that pt did well with therapy and they are recommending HH services at this time. With that being said her insurance would not approve her to go skilled at a nursing facility, therefore it would be an out of pocket expense. Pt voiced they can't afford that. Pt then spoke about not feeling well and not keeping anything down. At that time nurse came in room and pt voiced she had messed herself. Pt had just messed herself not too long ago. SW asked if she hit the call button? Pt stated she does not feel it coming on and it just happens. Nurse to clean pt up and SW to come back once arrives. came and left. SW to call him. SW called and spoke to over the phone. Pt's was aware of the out of pocket cost and voiced they can not afford to pay for her to go to a group home. He voiced that he hurt his back and worried about caring for her at home. SW did let him know that earlier today she walked from the bed to bathroom and was able to do that herself with nurse beside her. Pt's did state that she is now not feeling well and that she is staying another night. They do have a son but he works a lot of ours, they have neighbors that can help get her in to home if needed. She does have a rollator. He stated he does just leave her at home when grocery shopping and goes to laundry mat. SW re-assured that therapy has been working with her and she is doing well and ambulating. SW also let him know about the [facility]. He stated he got a call from them and will call them back to schedule a time to have them come in. In the end pt's voiced he will do the best he can do and he will take her home. SW again re-assured that HH therapy and nurse will be coming in as well. Pt's voiced appreciation for phone call. SW updated nurse.
[2025-01-09 15:18] LABS: C. Difficile PCR NEGATIVE
--- NOTE | 2025-01-09 15:48 | SWNOTE1 ---
SW faxed progress note, PT, and OT note to [facility] and let them know that pt is not discharging today, likely tomorrow.
[2025-01-09] MEDS: LOPERAMIDE HCL 2 MG CAPSULE PO (16:39)
[2025-01-09] MEDS: ATORVASTATIN CALCIUM 40 MG TABLET 80 MG PO (22:13)
[2025-01-09] MEDS: GABAPENTIN 300 MG CAPSULE PO (22:13)
[2025-01-10] VITALS (20 sets, daily range): BP systolic 101–151; BP diastolic 46–76; PULSE 55–83; TEMP 36.3–36.8; O2SAT 90–95
[2025-01-10] MEDS: CEFTRIAXONE 1,000 MG in 0.9 % SODIUM CHLORIDE 50 ML 100 MG IV (04:45)
[2025-01-10] MEDS: DICLOFENAC SODIUM 1% 100 GM TUBE TOPICAL ×3 (05:48→22:07)
[2025-01-10 06:13] LABS: Basophils Percent Auto 0.3 % (0.2-2.0); Eosinophils Absolute Auto 0.3 10^3/uL (0.0-0.7); Hematocrit 35.8 % (36.0-48.0); Hemoglobin 11.9 g/dL (12.0-16.0); Immature Granulocytes Abs Auto 0.04 10^3/uL (0.00-0.03); Immature Granulocytes Pct Auto 0.4 % (0.0-0.5); Lymphocytes Absolute Auto 2.9 10^3/uL (1.2-3.8); Lymphocytes Percent Auto 27.7 % (20.5-60.0); Mean Corpuscular HGB Conc 33.2 g/dL (29.9-35.2); Mean Corpuscular Hemoglobin 31.6 pg (26.7-34.0); Mean Platelet Volume 10.9 fL (9.5-13.5); Monocytes Absolute Auto 0.9 10^3/uL (0.3-0.8); Monocytes Percent Auto 8.8 % (1.7-12.0); Neutrophils Absolute Auto 6.2 10^3/uL (1.4-6.5); Neutrophils Percent Auto 59.8 % (43.0-75.0); Platelet Count 216 10^3/uL (150-450); Red Blood Count 3.77 10^6/uL (4.20-5.40); Red Cell Distribution Width 12.8 % (11.0-15.0); White Blood Count 10.4 10^3/uL (4.0-11.0)
[2025-01-10 06:30] LABS: Anion Gap 12.3; BUN Creatinine Ratio 18.2; Calcium 8.5 mg/dL (8.5-10.1); Chloride 101 mmol/L (98-107); Estimated GFR (African America 28 (>=60 mL/min/1.73m^2); Estimated GFR (Non-African Ame 23 (>=60 mL/min/1.73m^2); Glucose 139 mg/dL (74-106); Potassium 3.3 mmol/L (3.5-5.1); Sodium 135 mmol/L (136-145)
--- NOTE | 2025-01-10 08:48 | P.DS_ITS ---
DS: Providers Provider Date of admission: 01/08/25 02:34 Primary care physician: KAREN EMANUEL Consults: 01/08/25 Consult to Dietitian Routine Reason for consultation: diabetic 01/08/25 09:06 Consult to Cardiology Routine Reason for consultation: elevated trop, hypertensive urgency Has provider been notified: No 01/08/25 09:09 Occupational Therapy Eval and Treat Routine Reason for consultation: knee and back pain Has provider been notified: No Physical Therapy Eval and Treat Routine Reason for consultation: knee and back pain Has provider been notified: No DS: Diagnosis Discharge Diagnosis (1) Hypertensive urgency: (2) Acute non-ST elevation myocardial infarction (NSTEMI): (3) Elevated troponin: (4) UTI (urinary tract infection): Qualifiers: Hematuria presence: without hematuria Urinary tract infection type: acute cystitis Qualified Code(s): N30.00 - Acute cystitis without hematuria (5) DDD (degenerative disc disease), lumbosacral: Qualifiers: Disc-related pain type: unspecified whether pain present Qualified Code(s): M51.379 - Other intervertebral disc degeneration, lumbosacral region without mention of lumbar back pain or lower extremity pain (6) GERD (gastroesophageal reflux disease): Qualifiers: Esophagitis presence: without esophagitis Qualified Code(s): K21.9 - Gastro-esophageal reflux disease without esophagitis (7) Hypertension: Qualifiers: Hypertension type: primary hypertension Qualified Code(s): I10 - Essential (primary) hypertension (8) Cerebrovascular disease: (9) Type 2 diabetes mellitus with diabetic polyneuropathy: Qualifiers: Diabetes mellitus marine oil terminal superintendent insulin use: with marine oil terminal superintendent use Qualified Code(s): E11.42 - Type 2 diabetes mellitus with diabetic polyneuropathy; Z79.4 - exterminator (current) use of insulin (10) CAD (coronary artery disease): Qualifiers: Associated angina: without angina Coronary Disease-Associated Artery/Lesion type: [place] artery [place] vs. transplanted heart: [place] heart Qualified Code(s): I25.10 - Atherosclerotic heart disease of [place] coronary artery without angina pectoris (11) Chronic heart failure with preserved ejection fraction (HFpEF): (12) Diabetes mellitus with hyperglycemia, with long-term current use of insulin: Qualifiers: Diabetes mellitus type: type 2 Qualified Code(s): E11.65 - Type 2 diabetes mellitus with hyperglycemia; Z79.4 - correction (current) use of insulin (13) Stage 1 acute kidney injury: Plan (1) Hypertensive urgency: (2) Elevated troponin: (3) UTI (urinary tract infection): Qualifiers: Hematuria presence: without hematuria Urinary tract infection type: acute cystitis Qualified Code(s): N30.00 - Acute cystitis without hematuria (4) DDD (degenerative disc disease), lumbosacral: Qualifiers: Disc-related pain type: unspecified whether pain present Qualified Code(s): M51.379 - Other intervertebral disc degeneration, lumbosacral region without mention of lumbar back pain or lower extremity pain (5) GERD (gastroesophageal reflux disease): Qualifiers: Esophagitis presence: without esophagitis Qualified Code(s): K21.9 - Gastro-esophageal reflux disease without esophagitis (6) Hypertension: Qualifiers: Hypertension type: primary hypertension Qualified Code(s): I10 - Essential (primary) hypertension (7) Cerebrovascular disease: (8) Type 2 diabetes mellitus with diabetic polyneuropathy: Qualifiers: Diabetes mellitus marine oil terminal superintendent insulin use: with correction use Qualified Code(s): E11.42 - Type 2 diabetes mellitus with diabetic polyneuropathy; Z79.4 - exterminator (current) use of insulin (9) CAD (coronary artery disease): Qualifiers: Associated angina: without angina Coronary Disease-Associated Artery/Lesion type: [place] artery [place] vs. transplanted heart: [place] heart Qualified Code(s): I25.10 - Atherosclerotic heart disease of [place] coronary artery without angina pectoris (10) Chronic heart failure with preserved ejection fraction (HFpEF): (11) Diabetes mellitus with hyperglycemia, with long-term current use of insulin: Qualifiers: Diabetes mellitus type: type 2 Qualified Code(s): E11.65 - Type 2 diabetes mellitus with hyperglycemia; Z79.4 - exterminator (current) use of insulin Admission status: Patient initially admitted to observation status, condition deteriorated and and was found to have acute NSTEMI, with her condition deteriorated or medically necessary treatment has spanned 2 midnights, possibly a third, left as observation overnight last night in error or, inpatient status to start on 01/09/2025 secondary to the deterioration in her clinical status DS: Summary Hospital Course Hospital Course: This is a 69 y.o female patient with a past medical history of multiple CVAs and MIs, DM2, HFpEF, hypertension, hyperlipidemia, Chronic low back pain, CAD s/p 2 cardiac stents, DM polyneuropathy and GERD who presented to the ER after a fall at home. She is scheduled for a back surgery at [facility] in the near future. Due to her back pain, this limits her mobility at home. She stood from her chair when her knee buckled and she fell. Her back struck the stool and her and son had to get her back to the chair. She is having Left knee pain. X-ray of the knee was negative for fracture but small effusion present. She also reports intermitted chest pain this week but none today. CT of the head was obtained which showed no acute process, CXR also showed no acute process. Patient had significantly elevated BP of 234/92 as patient states she was unable to take her medications since she fell. She was treated with Labetalol IV which improved BP. Troponin has been elevated [id number] with elevated proBNP of 1271, 1286; EKG showed LVH with normal sinus rhythm. WBC's 7.7, hb 11.9, K 3.7, Cr 0.99, ha1c 6.8. When reviewing records patient had Lexiscan stress test on 12/24/24 with normal imaging but EKG portion could not be interpreted. Last Echo 12/04/23 which showed significant LVH, EF 65-70% with grade 1 diastolic dysfunction. Patient was admitted for Hypertensive urgency and NSTEMI. She follows with Dr. Block of [facility] cardiology. She recently had stress test for cardiac clearance for her back surgery. Echo yesterday was unchanged. Cardiology consult recommended 30 day event monitor which was placed at the time of discharge and she has close cardiology follow up. Troponins trended down. BP was controlled. Most likely troponin was due to elevated BP. Patient started to get some nausea and vomiting last night. Zofran helped. Normal labs this morning. I discussed with her could be virus. I will treat UTI with Cipro 250mg BID. Urine culture is pending at the time of discharge. I have also sent in Zofran for her to take. She has close follow up with her PCP and 30 day event monitor on. She will be discharged home today in stable condition. Discharge patient is deteriorated, increasing weakness and requiring 2 people to assist just to the bathroom, she was observed overnight, found to have acute kidney injury, baseline creatinine of 0.86, creatinine today was 2.09 this morning, which is 243% above baseline, so acute kidney injury stage I, diarrhea is slowing down, the plan is fluid bolus this morning hold and DC lisinopril and Aldactone, if her creatinine is improved, she could be discharged to home later this afternoon depending on strength, medication status. Follow-up with PCP next week. Time Spent with Patient Time attestation: Total time spent providing and/or coordinating discharge services: Exam Constitutional Vital Signs, click to edit/add: Last Vital Signs Temp 98.1 F 01/10/25 05:44 Pulse 60 01/10/25 07:59 Resp 18 01/10/25 05:44 BP 146/74 H 01/10/25 05:44 Pulse Ox 93 L 01/10/25 05:44 O2 Del Method Room Air 01/10/25 05:44 Documenting provider has reviewed patient's vital signs: yes Common normals: no apparent distress Chest Common normals: inspection of chest normal Respiratory Common normals: normal respiratory effort and no retractions GI Common normals: Normal to inspection, nondistended, normoactive bowel sounds present, soft to palpation and non-tender Extremity Common normals: normal to inspection and no clubbing, cyanosis or edema DS: Data Data Completed and Pending Labs on day of discharge: Labs from last 24 hours 01/10/25 01/09/25 05:46 13:56 WBC 10.4 RBC 3.77 L Hgb 11.9 L Hct 35.8 L MCV 95.0 MCH 31.6 MCHC 33.2 RDW 12.8 Plt Count 216 MPV 10.9 Neut % (Auto) 59.8 Lymph % (Auto) 27.7 [place]ama % (Auto) 8.8 Eos % (Auto) 3.0 Baso % (Auto) 0.3 Neut # (Auto) 6.2 Lymph # (Auto) 2.9 [place] # (Auto) 0.9 H Eos # (Auto) 0.3 Baso # (Auto) 0.0 Abs Immat Gran (auto) 0.04 H Imm/Tot Granulo (auto) 0.4 Sodium 135 L Potassium 3.3 L Chloride 101 Carbon Dioxide 25.0 Anion Gap 12.3 BUN 38.0 H Creatinine 2.09 H Est GFR ( Amer) 28 L Est GFR (Non-Af Amer) 23 L BUN/Creatinine Ratio 18.2 Glucose 139 H Calcium 8.5 C. difficile Toxin PCR Negative Preliminary micro results at discharge 01/08/25 02:45 Urine Culture - Preliminary Urine,Clean Catch Pending - Specimen sent to [facility] Discharge Plan Discharge Disposition: Home Health Service Discharge Medications: New ondansetron 4 mg tablet,disintegrating 4 mg PO Q8H PRN (Reason: nausea and vomiting) 5 Days Qty: 20 0RF ciprofloxacin HCl 250 mg tablet 250 mg PO Q12H 7 Days Qty: 14 0RF carvedilol 25 mg Tablet 25 mg PO BID Qty: 60 11RF Continued amlodipine 10 mg tablet 10 mg PO QDAY anastrozole 1 mg tablet 1 mg PO QDAY atorvastatin 80 mg tablet 80 mg PO QDAY bupropion HCl 150 mg tablet extended release 24 hr 150 mg PO QDAY clopidogrel 75 mg tablet 75 mg PO QDAY isosorbide mononitrate 30 mg tablet extended release 24 hr 30 mg PO QDAY pantoprazole 40 mg tablet,delayed release (DR/EC) 40 mg PO Q12H aspirin 81 mg capsule 81 mg PO DAILY oxcarbazepine 300 mg tablet 300 mg PO BID gabapentin 300 mg capsule 300 mg PO BEDTIME Jardiance 10 mg tablet 10 mg PO DAILY nitroglycerin 0.4 mg tablet, sublingual 0.4 mg sublingual Q5M PRN (Reason: chest pain) nystatin 100,000 unit/gram powder 1 applic TOPICAL DAILY PRN (Reason: rash) Novolin 70-30 FlexPen U-100 100 unit/mL (70-30) insulin pen 45 unit SUBCUT DAILY Rx Instructions: 45 units at breakfast, 55 units at supper Discontinued carvedilol 12.5 mg tablet 12.5 mg PO BID lisinopril 40 mg tablet 40 mg PO DAILY metformin 500 mg tablet extended release 24 hr 500 mg PO BID spironolactone 25 mg tablet 25 mg PO QDAY Activity: ambulate only with your walker Diet: diabetic diet Print Language: Nepalese Patient Instructions: Chest Pain (DC), Weakness (DC), Hypertension (DC), Holter Monitor (GEN) Supervisor Dog License Officer/Associate Embalmer/Funeral Director [facility] Forms: Portal Instructions Follow Up Appointments: January 14 @ 11:30am with Dr. Emanuel [phone] February 19 @ 10:30am with [place] [facility] at [facility] [phone] Patient with 30 Day Event Monitor
[2025-01-10] MEDS: ISOSORBIDE MONONITRATE 30 MG TAB.ER.24H PO (09:16)
[2025-01-10] MEDS: ASPIRIN 81 MG TABLET.DR PO (09:16)
[2025-01-10] MEDS: OXcarbazepine 300 MG TABLET PO ×2 (09:16→22:04)
[2025-01-10] MEDS: ACETAMINOPHEN 325 MG TABLET 650 MG PO (09:16)
[2025-01-10] MEDS: BUPROPION HCL 150 MG XL TABLET 24H PO (09:16)
[2025-01-10] MEDS: PANTOPRAZOLE SODIUM 40 MG TABLET.DR PO ×2 (09:16→22:04)
[2025-01-10] MEDS: AMLODIPINE BESYLATE 5 MG TABLET 10 MG PO (09:16)
[2025-01-10] MEDS: CLOPIDOGREL BISULFATE 75 MG TABLET PO (09:16)
[2025-01-10] MEDS: 0.9 % SODIUM CHLORIDE 1,000 ML 250 ML IV ×2 (09:17→15:09)
[2025-01-10] MEDS: INSULIN NPH 70-30 100UNIT/ML VIAL (10ML) 45 UNIT SUBQ (09:18)
--- NOTE | 2025-01-10 13:37 | ECG_ITS ---
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 Measurements Intervals [place] Rate: 83 P: 48 AK: 212 QRS: -6 QRSD: 116 T: 109 QT: 389 QTc: 457 Interpretive Statements SINUS RHYTHM WITH FIRST DEGREE AV BLOCK LEFT VENTRICULAR HYPERTROPHY AND ST-T CHANGE [VOLTAGE CRITERIA PLUS ST/T ABNORMALITY] Abnormal ECG Compared to ECG 01/08/2025 12:23:57 First degree AV block now present Electronically Signed On 01-11-2025 8:55:07 EDT by GLADYS YUNG M.D.
[2025-01-10 14:19] LABS: Anion Gap 13.2; BUN Creatinine Ratio 19.3; Chloride 101 mmol/L (98-107); Estimated GFR (African America 28 (>=60 mL/min/1.73m^2); Estimated GFR (Non-African Ame 23 (>=60 mL/min/1.73m^2); Glucose 249 mg/dL (74-106); Potassium 3.2 mmol/L (3.5-5.1); Sodium 135 mmol/L (136-145)
[2025-01-10] MEDS: INSULIN NPH 70-30 100UNIT/ML VIAL (10ML) 55 UNIT SUBQ (18:06)
[2025-01-10] MEDS: 0.9 % SODIUM CHLORIDE 1,000 ML 100 ML IV (19:30)
[2025-01-10] MEDS: GABAPENTIN 300 MG CAPSULE PO (22:04)
[2025-01-10] MEDS: ATORVASTATIN CALCIUM 40 MG TABLET 80 MG PO (22:04)
[2025-01-10] MEDS: CARVEDILOL 25 MG TABLET PO (22:04)
[2025-01-10] MEDS: ZOLPIDEM TARTRATE 5 MG TABLET PO (22:48)
[2025-01-10] MEDS: GUAIFENESIN 200 MG/DEXTROMETHORPHAN 20 MG 10 ML UNIT DOSE CUP PO (22:51)
[2025-01-11] VITALS (26 sets, daily range): BP systolic 99–178; BP diastolic 50–80; PULSE 58–73; TEMP 36.2–36.7; O2SAT 78–94
[2025-01-11] MEDS: CEFTRIAXONE 1,000 MG in 0.9 % SODIUM CHLORIDE 50 ML 100 MG IV (05:21)
[2025-01-11] MEDS: GUAIFENESIN 200 MG/DEXTROMETHORPHAN 20 MG 10 ML UNIT DOSE CUP PO ×2 (05:26→21:50)
[2025-01-11] MEDS: DICLOFENAC SODIUM 1% 100 GM TUBE TOPICAL ×3 (05:30→21:21)
[2025-01-11 05:44] LABS: Glucometer 90 mg/dL (74-106)
[2025-01-11 06:12] LABS: Basophils Percent Auto 0.4 % (0.2-2.0); Eosinophils Absolute Auto 0.3 10^3/uL (0.0-0.7); Eosinophils Percent Auto 3.4 % (0.9-7.0); Hematocrit 31.6 % (36.0-48.0); Hemoglobin 10.3 g/dL (12.0-16.0); Immature Granulocytes Abs Auto 0.03 10^3/uL (0.00-0.03); Immature Granulocytes Pct Auto 0.4 % (0.0-0.5); Lymphocytes Absolute Auto 2.1 10^3/uL (1.2-3.8); Lymphocytes Percent Auto 24.7 % (20.5-60.0); Mean Corpuscular HGB Conc 32.6 g/dL (29.9-35.2); Mean Corpuscular Hemoglobin 30.8 pg (26.7-34.0); Mean Corpuscular Volume 94.6 fL (81.0-99.0); Mean Platelet Volume 10.9 fL (9.5-13.5); Monocytes Absolute Auto 0.8 10^3/uL (0.3-0.8); Monocytes Percent Auto 9.2 % (1.7-12.0); Neutrophils Absolute Auto 5.3 10^3/uL (1.4-6.5); Neutrophils Percent Auto 61.9 % (43.0-75.0); Platelet Count 203 10^3/uL (150-450); Red Blood Count 3.34 10^6/uL (4.20-5.40); Red Cell Distribution Width 12.4 % (11.0-15.0); White Blood Count 8.6 10^3/uL (4.0-11.0)
[2025-01-11 06:33] LABS: Alanine Aminotransferase 9 U/L (14-59); Albumin Globulin Ratio 0.9; Albumin Level 2.5 g/dL (3.4-5.0); Alkaline Phosphatase 68 U/L (46-116); Anion Gap 11.6; Aspartate Amino Transferase 10 U/L (15-37); BUN Creatinine Ratio 22.4; Bilirubin Total 0.2 mg/dL (0.2-1.0); Calcium 7.8 mg/dL (8.5-10.1); Carbon Dioxide 24.1 mmol/L (21.0-32.0); Chloride 105 mmol/L (98-107); Estimated GFR (African America 44 (>=60 mL/min/1.73m^2); Estimated GFR (Non-African Ame 36 (>=60 mL/min/1.73m^2); Globulin 2.9 g/dL; Glucose 92 mg/dL (74-106); Potassium 3.7 mmol/L (3.5-5.1); Sodium 137 mmol/L (136-145); Total Protein 5.4 g/dL (6.4-8.2)
[2025-01-11] MEDS: 0.9 % SODIUM CHLORIDE 1,000 ML 100 ML IV ×2 (08:53→19:49)
[2025-01-11] MEDS: CLOPIDOGREL BISULFATE 75 MG TABLET PO (08:54)
[2025-01-11] MEDS: OXcarbazepine 300 MG TABLET PO ×2 (08:54→21:18)
[2025-01-11] MEDS: ISOSORBIDE MONONITRATE 30 MG TAB.ER.24H PO (08:54)
[2025-01-11] MEDS: BUPROPION HCL 150 MG XL TABLET 24H PO (08:54)
[2025-01-11] MEDS: ACETAMINOPHEN 325 MG TABLET 650 MG PO (08:54)
[2025-01-11] MEDS: PANTOPRAZOLE SODIUM 40 MG TABLET.DR PO ×2 (08:54→21:18)
[2025-01-11] MEDS: ASPIRIN 81 MG TABLET.DR PO (08:54)
--- NOTE | 2025-01-11 09:10 | PM.PN ---
Exam Constitutional Vital Signs, click to edit/add: Last Vital Signs Temp 97.5 F L 01/11/25 09:04 Pulse 58 L 01/11/25 09:04 Resp 18 01/11/25 09:04 BP 99/63 01/11/25 09:04 Pulse Ox 91 L 01/11/25 09:04 O2 Del Method Room Air 01/11/25 09:04 Progress Note: Objective Labs Labs: Short CBC 01/11/25 Range/Units 05:42 WBC 8.6 (4.0-11.0) 10^3/uL Hgb 10.3 L (12.0-16.0) g/dL Hct 31.6 L (36.0-48.0) % Plt Count 203 (150-450) 10^3/uL BMP 01/10/25 01/11/25 13:57 05:42 Sodium 135 L 137 Potassium 3.2 L 3.7 Chloride 101 105 Carbon Dioxide 24.0 24.1 BUN 41.0 H 32.0 H Creatinine 2.12 H 1.43 H Glucose 249 H 92 Calcium 8.0 L 7.8 L Liver Function 01/11/25 Range/Units 05:42 Total Bilirubin 0.2 (0.2-1.0) mg/dL AST 10 L (15-37) U/L ALT 9 L (14-59) U/L Alkaline Phosphatase 68 (46-116) U/L Albumin 2.5 L (3.4-5.0) g/dL Progress Note: A&P Assessment and Plan (1) Hypertensive urgency: (2) Acute non-ST elevation myocardial infarction (NSTEMI): (3) Elevated troponin: (4) UTI (urinary tract infection): Qualifiers: Urinary tract infection type: acute cystitis Hematuria presence: without hematuria Qualified Code(s): N30.00 - Acute cystitis without hematuria (5) DDD (degenerative disc disease), lumbosacral: Qualifiers: Disc-related pain type: unspecified whether pain present Qualified Code(s): M51.379 - Other intervertebral disc degeneration, lumbosacral region without mention of lumbar back pain or lower extremity pain (6) GERD (gastroesophageal reflux disease): Qualifiers: Esophagitis presence: without esophagitis Qualified Code(s): K21.9 - Gastro-esophageal reflux disease without esophagitis (7) Hypertension: Qualifiers: Hypertension type: primary hypertension Qualified Code(s): I10 - Essential (primary) hypertension (8) Cerebrovascular disease: (9) Type 2 diabetes mellitus with diabetic polyneuropathy: Qualifiers: Diabetes mellitus intermediate insulin use: with intermediate use Qualified Code(s): E11.42 - Type 2 diabetes mellitus with diabetic polyneuropathy; Z79.4 - terminal press operator (current) use of insulin (10) CAD (coronary artery disease): Qualifiers: Coronary Disease-Associated Artery/Lesion type: [place] artery [place] vs. transplanted heart: [place] heart Associated angina: without angina Qualified Code(s): I25.10 - Atherosclerotic heart disease of [place] coronary artery without angina pectoris (11) Chronic heart failure with preserved ejection fraction (HFpEF): (12) Diabetes mellitus with hyperglycemia, with long-term current use of insulin: Qualifiers: Diabetes mellitus type: type 2 Qualified Code(s): E11.65 - Type 2 diabetes mellitus with hyperglycemia; Z79.4 - terminal press operator (current) use of insulin (13) Stage 1 acute kidney injury:
--- NOTE | 2025-01-11 09:48 | P.PN_ITS ---
Progress Note: Subjective Subjective Interval history: Patient this morning still has increasing weakness, difficulty ambulating requiring to assist this early this morning Admission status: Patient initially admitted to observation status, condition deteriorated and and was found to have acute NSTEMI, with her condition deteriorated and medically necessary treatment has spanned 2 midnights, possibly a third, left as observation overnight last night was done in error, inpatient status to start on 01/09/2025 secondary to the deterioration in her clinical status Exam Constitutional Vital Signs, click to edit/add: Last Vital Signs Temp 97.5 F L 01/11/25 09:04 Pulse 58 L 01/11/25 09:04 Resp 18 01/11/25 09:04 BP 99/63 01/11/25 09:04 Pulse Ox 91 L 01/11/25 09:04 O2 Del Method Room Air 01/11/25 09:04 Documenting provider has reviewed patient's vital signs: yes Common normals: apparent distress (Appears weak) Chest Common normals: inspection of chest normal and palpation of chest normal Respiratory Common normals: normal respiratory effort and no retractions Cardio Common normals: regular rate and regular rhythm GI Common normals: soft to palpation and no masses; negative for Normal to inspection, nondistended, normoactive bowel sounds present (Morbid obesity) Progress Note: Objective Labs Labs: Short CBC 01/11/25 Range/Units 05:42 WBC 8.6 (4.0-11.0) 10^3/uL Hgb 10.3 L (12.0-16.0) g/dL Hct 31.6 L (36.0-48.0) % Plt Count 203 (150-450) 10^3/uL BMP 01/10/25 01/11/25 13:57 05:42 Sodium 135 L 137 Potassium 3.2 L 3.7 Chloride 101 105 Carbon Dioxide 24.0 24.1 BUN 41.0 H 32.0 H Creatinine 2.12 H 1.43 H Glucose 249 H 92 Calcium 8.0 L 7.8 L Liver Function 01/11/25 Range/Units 05:42 Total Bilirubin 0.2 (0.2-1.0) mg/dL AST 10 L (15-37) U/L ALT 9 L (14-59) U/L Alkaline Phosphatase 68 (46-116) U/L Albumin 2.5 L (3.4-5.0) g/dL Progress Note: A&P Assessment and Plan (1) Hypertensive urgency: (2) Acute non-ST elevation myocardial infarction (NSTEMI): (3) Elevated troponin: (4) UTI (urinary tract infection): Qualifiers: Hematuria presence: without hematuria Urinary tract infection type: acute cystitis Qualified Code(s): N30.00 - Acute cystitis without hematuria (5) DDD (degenerative disc disease), lumbosacral: Qualifiers: Disc-related pain type: unspecified whether pain present Qualified Code(s): M51.379 - Other intervertebral disc degeneration, lumbosacral region without mention of lumbar back pain or lower extremity pain (6) GERD (gastroesophageal reflux disease): Qualifiers: Esophagitis presence: without esophagitis Qualified Code(s): K21.9 - Gastro-esophageal reflux disease without esophagitis (7) Hypertension: Qualifiers: Hypertension type: primary hypertension Qualified Code(s): I10 - Essential (primary) hypertension (8) Cerebrovascular disease: (9) Type 2 diabetes mellitus with diabetic polyneuropathy: Qualifiers: Diabetes mellitus vermin exterminator insulin use: with nursing home use Qualified Code(s): E11.42 - Type 2 diabetes mellitus with diabetic polyneuropathy; Z79.4 - senior care (current) use of insulin (10) CAD (coronary artery disease): Qualifiers: Associated angina: without angina Coronary Disease-Associated Artery/Lesion type: [place] artery [place] vs. transplanted heart: [place] heart Qualified Code(s): I25.10 - Atherosclerotic heart disease of [place] coronary artery without angina pectoris (11) Chronic heart failure with preserved ejection fraction (HFpEF): (12) Diabetes mellitus with hyperglycemia, with long-term current use of insulin: Qualifiers: Diabetes mellitus type: type 2 Qualified Code(s): E11.65 - Type 2 diabetes mellitus with hyperglycemia; Z79.4 - termite exterminator (current) use of insulin (13) Stage 1 acute kidney injury: Plan (1) Hypertensive urgency: Blood pressure improved, maintain current medications Acute NSTEMI with elevated troponin secondary to acute UTI-trending down, echo normal UTI (urinary tract infection): Check on culture results later today Acute kidney injury stage I-baseline creatinine 0.99, creatinine this morning, 2.09 which would be 210% above baseline, with decreased urine output would be acute kidney injury stage II, IV fluids today, repeat Chem-8 later today DDD (degenerative disc disease), lumbosacral: Pain increased somewhat today, she thinks is just from being in the bed GERD (gastroesophageal reflux disease): Continue with current medications Hypertension: Stable-continue current medications Cerebrovascular disease:-No acute symptoms, maintain aspirin and Plavix Type 2 diabetes mellitus with diabetic polyneuropathy: Continue to monitor ISS CAD (coronary artery disease): No chest pain Chronic heart failure with preserved ejection fraction (HFpEF):-Maintain current medications, no peripheral edema Admission status: Patient initially admitted to observation status, condition deteriorated and and was found to have acute NSTEMI, with her condition deteriorated and medically necessary treatment has spanned 2 midnights, possibly a third, left as observation overnight last night was done in error, inpatient status to start on 01/09/2025 secondary to the deterioration in her clinical status
--- NOTE | 2025-01-11 09:54 | P.PN_ITS ---
Progress Note: Subjective Subjective Interval history: Patient still with significant weakness, this morning was being assisted by nurse to the bathroom, patient had a slip and fall hitting her head, stat CT scan was obtained Exam Constitutional Vital Signs, click to edit/add: Last Vital Signs Temp 97.5 F L 01/11/25 09:04 Pulse 61 01/11/25 09:53 Resp 18 01/11/25 09:04 BP 99/63 01/11/25 09:04 Pulse Ox 91 L 01/11/25 09:04 O2 Del Method Room Air 01/11/25 09:04 Documenting provider has reviewed patient's vital signs: yes Common normals: apparent distress (Appears weak) Chest Common normals: inspection of chest normal and palpation of chest normal Respiratory Common normals: normal respiratory effort, no retractions and clear to auscultation bilaterally Cardio Common normals: regular rate and regular rhythm GI Common normals: soft to palpation, non-tender and no hepatosplenomegaly; negative for Normal to inspection, nondistended, normoactive bowel sounds present (Morbid obesity) Neuro Common normals: oriented x3, CN's II-XII intact bilaterally, moves all extremities and no focal motor deficits Progress Note: Objective Labs Labs: Short CBC 01/11/25 Range/Units 05:42 WBC 8.6 (4.0-11.0) 10^3/uL Hgb 10.3 L (12.0-16.0) g/dL Hct 31.6 L (36.0-48.0) % Plt Count 203 (150-450) 10^3/uL BMP 01/10/25 01/11/25 13:57 05:42 Sodium 135 L 137 Potassium 3.2 L 3.7 Chloride 101 105 Carbon Dioxide 24.0 24.1 BUN 41.0 H 32.0 H Creatinine 2.12 H 1.43 H Glucose 249 H 92 Calcium 8.0 L 7.8 L Liver Function 01/11/25 Range/Units 05:42 Total Bilirubin 0.2 (0.2-1.0) mg/dL AST 10 L (15-37) U/L ALT 9 L (14-59) U/L Alkaline Phosphatase 68 (46-116) U/L Albumin 2.5 L (3.4-5.0) g/dL Progress Note: A&P Assessment and Plan (1) Hypertensive urgency: (2) Acute non-ST elevation myocardial infarction (NSTEMI): (3) Elevated troponin: (4) UTI (urinary tract infection): Qualifiers: Urinary tract infection type: acute cystitis Hematuria presence: without hematuria Qualified Code(s): N30.00 - Acute cystitis without hematuria (5) DDD (degenerative disc disease), lumbosacral: Qualifiers: Disc-related pain type: unspecified whether pain present Qualified Code(s): M51.379 - Other intervertebral disc degeneration, lumbosacral region without mention of lumbar back pain or lower extremity pain (6) GERD (gastroesophageal reflux disease): Qualifiers: Esophagitis presence: without esophagitis Qualified Code(s): K21.9 - Gastro-esophageal reflux disease without esophagitis (7) Hypertension: Qualifiers: Hypertension type: primary hypertension Qualified Code(s): I10 - Essential (primary) hypertension (8) Cerebrovascular disease: (9) Type 2 diabetes mellitus with diabetic polyneuropathy: Qualifiers: Diabetes mellitus moth exterminator insulin use: with moth exterminator use Qualified Code(s): E11.42 - Type 2 diabetes mellitus with diabetic polyneuropathy; Z79.4 - shelter (current) use of insulin (10) CAD (coronary artery disease): Qualifiers: Coronary Disease-Associated Artery/Lesion type: [place] artery [place] vs. transplanted heart: [place] heart Associated angina: without angina Qualified Code(s): I25.10 - Atherosclerotic heart disease of [place] coronary artery without angina pectoris (11) Chronic heart failure with preserved ejection fraction (HFpEF): (12) Diabetes mellitus with hyperglycemia, with long-term current use of insulin: Qualifiers: Diabetes mellitus type: type 2 Qualified Code(s): E11.65 - Type 2 diabetes mellitus with hyperglycemia; Z79.4 - salvage determiner (current) use of insulin (13) Stage 1 acute kidney injury: Plan Hypertensive urgency: Blood pressure improved, maintain current medications Acute NSTEMI with elevated troponin secondary to acute UTI-troponin returned to normal UTI (urinary tract infection): Urine culture was sensitive to everything, will change patient to levofloxacin Acute kidney injury stage I-kidney function improved today, still about 144% above baseline-maintain IV fluids Fall with acute head injury-CT scan stat obtained not read yet, stat CT ordered secondary being on aspirin and Plavix, patient has stable for discharge to home based on creatinine still elevated and now with the weakness deteriorating to the point of falls patient in need of rehab DDD (degenerative disc disease), lumbosacral: Stable, likely to get started up later today secondary to the fall GERD (gastroesophageal reflux disease): Continue with current medications Hypertension: Stable-continue current medications Cerebrovascular disease: Unless CT scan shows bleed, maintain current medications Type 2 diabetes mellitus with diabetic polyneuropathy: Continue to monitor ISS CAD (coronary artery disease): No chest pain Chronic heart failure with preserved ejection fraction (HFpEF):-Maintain current medications, no peripheral edema Admission status: Patient initially admitted to observation status, condition deteriorated and and was found to have acute NSTEMI, with her condition deteriorated and medically necessary treatment has spanned 2 midnights, possibly a third, left as observation overnight last night was done in error, inpatient status to start on 01/09/2025 secondary to the deterioration in her clinical status -patient with fall today, medically unstable for discharge, patient need of rehab, continue neurochecks overnight, maintain inpatient status
[2025-01-11] MEDS: LEVOFLOXACIN 500 MG TABLET PO (12:07)
[2025-01-11] MEDS: ENSURE HP 237 ML LIQUID PO (12:07)
[2025-01-11 16:22] LABS: Glucometer 226 mg/dL (74-106)
[2025-01-11] MEDS: INSULIN NPH 70-30 100UNIT/ML VIAL (10ML) 55 UNIT SUBQ (16:25)
[2025-01-11] MEDS: ATORVASTATIN CALCIUM 40 MG TABLET 80 MG PO (21:18)
[2025-01-11] MEDS: GABAPENTIN 300 MG CAPSULE PO (21:18)
[2025-01-11] MEDS: CARVEDILOL 25 MG TABLET PO (21:18)
[2025-01-11] MEDS: ZOLPIDEM TARTRATE 5 MG TABLET PO (21:18)
[2025-01-12] VITALS (23 sets, daily range): BP systolic 149–168; BP diastolic 63–80; PULSE 52–94; TEMP 36.6–36.7; O2SAT 88–94
[2025-01-12] MEDS: DICLOFENAC SODIUM 1% 100 GM TUBE TOPICAL ×3 (05:16→21:16)
[2025-01-12] MEDS: 0.9 % SODIUM CHLORIDE 1,000 ML 100 ML IV (05:17)
[2025-01-12 05:35] LABS: Basophils Percent Auto 0.4 % (0.2-2.0); Eosinophils Absolute Auto 0.3 10^3/uL (0.0-0.7); Eosinophils Percent Auto 2.9 % (0.9-7.0); Hematocrit 33.2 % (36.0-48.0); Immature Granulocytes Abs Auto 0.03 10^3/uL (0.00-0.03); Immature Granulocytes Pct Auto 0.4 % (0.0-0.5); Lymphocytes Absolute Auto 1.6 10^3/uL (1.2-3.8); Lymphocytes Percent Auto 18.8 % (20.5-60.0); Mean Corpuscular HGB Conc 33.1 g/dL (29.9-35.2); Mean Corpuscular Hemoglobin 31.3 pg (26.7-34.0); Mean Corpuscular Volume 94.3 fL (81.0-99.0); Mean Platelet Volume 10.7 fL (9.5-13.5); Monocytes Absolute Auto 0.7 10^3/uL (0.3-0.8); Monocytes Percent Auto 8.1 % (1.7-12.0); Neutrophils Absolute Auto 5.9 10^3/uL (1.4-6.5); Neutrophils Percent Auto 69.4 % (43.0-75.0); Platelet Count 224 10^3/uL (150-450); Red Blood Count 3.52 10^6/uL (4.20-5.40); Red Cell Distribution Width 12.6 % (11.0-15.0); White Blood Count 8.5 10^3/uL (4.0-11.0)
[2025-01-12 05:53] LABS: Alanine Aminotransferase 11 U/L (14-59); Albumin Globulin Ratio 0.8; Albumin Level 2.6 g/dL (3.4-5.0); Alkaline Phosphatase 75 U/L (46-116); Anion Gap 11.8; Aspartate Amino Transferase 11 U/L (15-37); BUN Creatinine Ratio 24.5; Bilirubin Total 0.3 mg/dL (0.2-1.0); Calcium 8.2 mg/dL (8.5-10.1); Carbon Dioxide 26.4 mmol/L (21.0-32.0); Chloride 108 mmol/L (98-107); Estimated GFR (African America >60 (>=60 mL/min/1.73m^2); Estimated GFR (Non-African Ame 51 (>=60 mL/min/1.73m^2); Globulin 3.3 g/dL; Glucose 99 mg/dL (74-106); Potassium 4.2 mmol/L (3.5-5.1); Sodium 142 mmol/L (136-145); Total Protein 5.9 g/dL (6.4-8.2)
[2025-01-12 06:46] LABS: Troponin I High Sensitivity 16.1 pg/mL (4.0-51.3)
--- NOTE | 2025-01-12 07:59 | XR_ITS ---
The [address] [address] Patient Name: ORTEGA POWELL MRN: [id number] date: 1955 Sex: F Assigned Patient Location: [place] Current Patient Location: [place] Accession/Order Number: [id number] Exam Date: 01/12/2025 09:39 Report Date: 01/12/2025 09:43 At the request of: DOMINICK MCGEE MD Procedure: XR chest 2V PA AND LATERAL CHEST: CLINICAL HISTORY: hypoxia COMPARISON: 01/08/2025 There is pleural and/or parenchymal change at the posterior lung bases on the lateral. There is mild developing interstitial change. No pneumothorax is identified. The heart is within normal limits for size. There is subtle dextroscoliotic curvature and endplate spurring at the spine. XR/XR chest 2V IMPRESSION: DEVELOPING INTERSTITIAL CHANGES WHICH COULD RELATE TO EDEMA OR VOLUME OVERLOAD. NEW BIBASILAR PLEURAL-PARENCHYMAL OPACITY. Impression dictated by: Christy Mitchell M.D.01/12/2025 9:43 AM Dictation Location: [place] [address] Electronically authenticated by: [id number] Y Date: 01/12/2025 09:43
--- NOTE | 2025-01-12 08:05 | CM.NOTE ---
Rounds made with Dr. Dowling, no discharge today. Plan of care discussed with pt, pt c/o increased SOB with get chest x-ray today.
[2025-01-12] MEDS: FUROSEMIDE 20 MG/2 ML VIAL IVP (08:33)
[2025-01-12] MEDS: CLOPIDOGREL BISULFATE 75 MG TABLET PO (08:34)
[2025-01-12] MEDS: ASPIRIN 81 MG TABLET.DR PO (08:34)
[2025-01-12] MEDS: PANTOPRAZOLE SODIUM 40 MG TABLET.DR PO ×2 (08:34→21:16)
[2025-01-12] MEDS: BUPROPION HCL 150 MG XL TABLET 24H PO (08:34)
[2025-01-12] MEDS: CARVEDILOL 25 MG TABLET PO ×2 (08:34→21:17)
[2025-01-12] MEDS: ISOSORBIDE MONONITRATE 30 MG TAB.ER.24H PO (08:34)
[2025-01-12] MEDS: OXcarbazepine 300 MG TABLET PO ×2 (08:34→21:16)
--- NOTE | 2025-01-12 08:44 | CM.NOTE ---
Important Message From Medicare discussed with pt, pt verbalizes understanding and signs paper. Original given to pt and copy placed in pt's chart. /Scott Dowling discussed with pt this AM about skilled at discharge d/t falls. Pt in agreement, pt requests [facility] as first choice and [facility] as second choice.
--- NOTE | 2025-01-12 09:01 | P.PN_ITS ---
Progress Note: Subjective Subjective Interval history: Patient with little more cough this morning, did have some hypoxia overnight, does have a history of sleep apnea Exam Constitutional Vital Signs, click to edit/add: Last Vital Signs Temp 98 F 01/12/25 08:00 Pulse 69 01/12/25 08:00 Resp 20 01/12/25 08:00 BP 151/73 H 01/12/25 08:00 Pulse Ox 90 L 01/12/25 08:00 O2 Del Method Nasal Cannula 01/12/25 08:00 O2 Flow Rate 3 01/12/25 08:00 Documenting provider has reviewed patient's vital signs: yes Common normals: apparent distress (Appears weak) Chest Common normals: inspection of chest normal and palpation of chest normal Respiratory Common normals: normal respiratory effort and no retractions; not clear to ascultation bilaterally Auscultation: rhonchi and wheezes Cardio Common normals: regular rate, regular rhythm and no murmurs GI Common normals: soft to palpation and no masses; negative for Normal to inspection, nondistended, normoactive bowel sounds present (Morbid obesity) Extremity Common normals: normal to inspection and no clubbing, cyanosis or edema Neuro Common normals: oriented x3, CN's II-XII intact bilaterally, moves all extremities and no focal motor deficits Progress Note: Objective Labs Labs: Short CBC 01/12/25 Range/Units 05:18 WBC 8.5 (4.0-11.0) 10^3/uL Hgb 11.0 L (12.0-16.0) g/dL Hct 33.2 L (36.0-48.0) % Plt Count 224 (150-450) 10^3/uL BMP 01/12/25 05:18 Sodium 142 Potassium 4.2 Chloride 108 H Carbon Dioxide 26.4 BUN 26.0 H Creatinine 1.06 H Glucose 99 Calcium 8.2 L Liver Function 01/12/25 Range/Units 05:18 Total Bilirubin 0.3 (0.2-1.0) mg/dL AST 11 L (15-37) U/L ALT 11 L (14-59) U/L Alkaline Phosphatase 75 (46-116) U/L Albumin 2.6 L (3.4-5.0) g/dL Progress Note: A&P Assessment and Plan (1) Hypertensive urgency: (2) Acute non-ST elevation myocardial infarction (NSTEMI): (3) Elevated troponin: (4) UTI (urinary tract infection): Qualifiers: Urinary tract infection type: acute cystitis Hematuria presence: without hematuria Qualified Code(s): N30.00 - Acute cystitis without hematuria (5) DDD (degenerative disc disease), lumbosacral: Qualifiers: Disc-related pain type: unspecified whether pain present Qualified Code(s): M51.379 - Other intervertebral disc degeneration, lumbosacral region without mention of lumbar back pain or lower extremity pain (6) GERD (gastroesophageal reflux disease): Qualifiers: Esophagitis presence: without esophagitis Qualified Code(s): K21.9 - Gastro-esophageal reflux disease without esophagitis (7) Hypertension: Qualifiers: Hypertension type: primary hypertension Qualified Code(s): I10 - Essential (primary) hypertension (8) Cerebrovascular disease: (9) Type 2 diabetes mellitus with diabetic polyneuropathy: Qualifiers: Diabetes mellitus mcfp insulin use: with vermin exterminator use Qualified Code(s): E11.42 - Type 2 diabetes mellitus with diabetic polyneuropathy; Z79.4 - retirement (current) use of insulin (10) CAD (coronary artery disease): Qualifiers: Coronary Disease-Associated Artery/Lesion type: [place] artery [place] vs. transplanted heart: [place] heart Associated angina: without angina Qualified Code(s): I25.10 - Atherosclerotic heart disease of [place] coronary artery without angina pectoris (11) Chronic heart failure with preserved ejection fraction (HFpEF): (12) Diabetes mellitus with hyperglycemia, with long-term current use of insulin: Qualifiers: Diabetes mellitus type: type 2 Qualified Code(s): E11.65 - Type 2 diabetes mellitus with hyperglycemia; Z79.4 - retirement (current) use of insulin (13) Stage 1 acute kidney injury: Plan Hypertensive urgency: Blood pressure overall is better but still with some elevation at times, adjust medications Acute NSTEMI with elevated troponin secondary to acute UTI-troponin returned to normal-BNP elevated, check with cardiology likely from fluid resuscitation secondary to acute kidney injury as outlined below, now with fluid overload, will give 1 dose of Lasix, check chest x-ray UTI (urinary tract infection): Urine culture was sensitive to everything, will change patient to levofloxacin Acute kidney injury stage I-resolved to baseline, saline lock Fall with acute head injury-CT negative, can DC neuro's DDD (degenerative disc disease), lumbosacral: Stable, likely to get started up later today secondary to the fall GERD (gastroesophageal reflux disease): Continue with current medications Hypertension: Stable-continue current medications Cerebrovascular disease: Unless CT scan shows bleed, maintain current medications Type 2 diabetes mellitus with diabetic polyneuropathy: Continue to monitor ISS CAD (coronary artery disease): No chest pain Chronic heart failure with preserved ejection fraction (HFpEF):-Maintain current medications, no peripheral edema Admission status: Patient initially admitted to observation status, condition deteriorated and and was found to have acute NSTEMI, with her condition deteriorated and medically necessary treatment has spanned 2 midnights, possibly a third, left as observation overnight last night was done in error, inpatient status to start on 01/09/2025 secondary to the deterioration in her clinical status -patient with fall today, medically unstable for discharge, patient need of rehab, continue neurochecks overnight, maintain inpatient status Patient has excellent rehabilitation candidate, work on placement, patient not safe for ambulation by self secondary to weakness secondary to her back pain and NSTEMI Urinary Catheter Management Urinary Catheter Management Pure Wick: Cath placed during this visit: yes Urethral indwelling: No Insertion date: 01/11/25 Insertion time: 21:30
--- NOTE | 2025-01-12 09:03 | CM.NOTE ---
Faxed new referral to [facility] for skilled, PT,OT notes, Physician notes, Case Management referral, and facesheet.
--- NOTE | 2025-01-12 09:06 | CM.NOTE ---
Faxed final urine culture and susceptibility to Dr. Dowling.
[2025-01-12] MEDS: AMLODIPINE BESYLATE 5 MG TABLET 10 MG PO (09:40)
--- NOTE | 2025-01-12 10:10 | SWNOTE1 ---
SW spoke to case management and pt had a fall at hospital and she now needs SNF for rehab. Pt and pt's picked [facility] as first choice and [facility] as second. Referral has been faxed to [facility]. ARACELI reached out to Fermin at [facility] and they will look for referral. Obdulia stated that Darline the marketing person will likely stop out today. ARACELI stopped in to let pt and know this information.
[2025-01-12] MEDS: IPRATROPIUM/ALBUTEROL SULFATE 3 ML AMPUL.NEB IH ×3 (10:17→22:24)
[2025-01-12] MEDS: BENZONATATE 100 MG CAPSULE 200 MG PO (11:09)
[2025-01-12] MEDS: LISINOPRIL 10 MG TABLET PO (11:09)
--- NOTE | 2025-01-12 11:18 | SWNOTE1 ---
SW completed HENS online for spring. Once PT/OT completed, SW will send over, and they will start precert.
--- NOTE | 2025-01-12 11:53 | REH.PTDLY ---
Physical Therapy Daily Note PT Daily Note/Assess Start: 01/09/25 11:22 Freq: Status: Active Protocol: Document 01/12/25 11:42 [id number] (Rec: 01/12/25 11:52 KIARA [id number]) Physical Therapy Daily Note/Assessment Time In 10:30 Time Out 10:49 Subjective Pt in chair bedside upon arrival. On 3 L of O2 that pt states she normally does not wear, but was SOB during the night. No other complaints at this time, besides just being tired. Therapeutic Exercise 6 Minutes (minutes) Therapeutic Exercise 0 Units Therapeutic Exercise Instructed in B LE seated exs 10x ea with L LE having Treatment limited ROM and strength due to history of LB issues and pt needing surgery. Exs included AP, LAQ, marching, hip abd, and hip add squeezes for improved strength. Therapeutic Activity 12 Minutes (minutes) Therapeutic Activity 1 Units Therapeutic Activity Sit to stand transfers Min A. Cues for pt to lean Comments forward and push off with UEs from chair arms. Pt initially is just rocking back and forth trying to push up and being unsuccessful. Gait training with RW 15 feet to and from restroom. CGA with toilet transfers and cues to use railing on wall for better support when transferring on and off toilet. Pt needs assistance to doff and don brief as she is unsteady without UE support and cannot perform independently. Total Therapy 18 Minutes Total Physical 1 Therapy Units Daily Note Summary Pt fatigues easily with rx and is short of breath intermittently. SpO2 is at 88% pre and post rx while on 3 L of O2. Nursing notified and she states she was just at 94% with respiratory, so questioning accuracy of reader. Pt states she is now planning to go to rehab and is waiting on insurance approval. Due to level of fatigue and weakness today, pt would benefit from rehab .
--- NOTE | 2025-01-12 12:05 | SWNOTE1 ---
ARACELI faxed PT note and HENS over to anali at [facility].
--- NOTE | 2025-01-12 12:40 | SWNOTE1 ---
[facility] is able to accept and will need an OT note from today to get precert started. SW called therapy room, nobody answered. SW to call outpt therapy to see when they will see pt.
--- NOTE | 2025-01-12 14:21 | SWNOTE1 ---
SW faxed OT note to Darline at [facility] for precert to be started.
--- NOTE | 2025-01-12 17:02 | DIETREC ---
Therapeutic diet education provided. Recommend 1800 kcal CCD diet.
[2025-01-12] MEDS: INSULIN NPH 70-30 100UNIT/ML VIAL (10ML) 55 UNIT SUBQ (17:49)
[2025-01-12] MEDS: GABAPENTIN 300 MG CAPSULE PO (21:16)
[2025-01-12] MEDS: ENSURE HP 237 ML LIQUID PO (21:16)
[2025-01-12] MEDS: GUAIFENESIN 200 MG/DEXTROMETHORPHAN 20 MG 10 ML UNIT DOSE CUP PO (21:16)
[2025-01-12] MEDS: ZOLPIDEM TARTRATE 5 MG TABLET PO (21:17)
[2025-01-12] MEDS: ATORVASTATIN CALCIUM 40 MG TABLET 80 MG PO (21:17)
--- NOTE | 2025-01-12 23:33 | RESP.RT ---
Pt had bring in home cpap unit. RT set up home cpap and placed on pt with 3L 02 bleed in. Sp02 93%.
[2025-01-13] VITALS (16 sets, daily range): BP systolic 114–149; BP diastolic 49–77; PULSE 58–71; TEMP 36.7–36.8; O2SAT 87–97
[2025-01-13] MEDS: IPRATROPIUM/ALBUTEROL SULFATE 3 ML AMPUL.NEB IH ×3 (04:42→22:08)
[2025-01-13 05:12] LABS: Basophils Percent Auto 0.3 % (0.2-2.0); Eosinophils Absolute Auto 0.2 10^3/uL (0.0-0.7); Eosinophils Percent Auto 2.7 % (0.9-7.0); Hematocrit 31.6 % (36.0-48.0); Hemoglobin 10.5 g/dL (12.0-16.0); Immature Granulocytes Abs Auto 0.02 10^3/uL (0.00-0.03); Immature Granulocytes Pct Auto 0.3 % (0.0-0.5); Lymphocytes Absolute Auto 2.1 10^3/uL (1.2-3.8); Lymphocytes Percent Auto 28.4 % (20.5-60.0); Mean Corpuscular HGB Conc 33.2 g/dL (29.9-35.2); Mean Corpuscular Hemoglobin 30.8 pg (26.7-34.0); Mean Corpuscular Volume 92.7 fL (81.0-99.0); Mean Platelet Volume 10.8 fL (9.5-13.5); Monocytes Absolute Auto 0.7 10^3/uL (0.3-0.8); Monocytes Percent Auto 9.9 % (1.7-12.0); Neutrophils Absolute Auto 4.4 10^3/uL (1.4-6.5); Neutrophils Percent Auto 58.4 % (43.0-75.0); Platelet Count 211 10^3/uL (150-450); Red Blood Count 3.41 10^6/uL (4.20-5.40); Red Cell Distribution Width 12.9 % (11.0-15.0); White Blood Count 7.5 10^3/uL (4.0-11.0)
[2025-01-13 05:35] LABS: Alanine Aminotransferase 12 U/L (14-59); Albumin Globulin Ratio 0.7; Albumin Level 2.5 g/dL (3.4-5.0); Alkaline Phosphatase 72 U/L (46-116); Aspartate Amino Transferase 13 U/L (15-37); Bilirubin Total 0.3 mg/dL (0.2-1.0); Calcium 8.3 mg/dL (8.5-10.1); Carbon Dioxide 25.4 mmol/L (21.0-32.0); Chloride 106 mmol/L (98-107); Estimated GFR (African America >60 (>=60 mL/min/1.73m^2); Estimated GFR (Non-African Ame 58 (>=60 mL/min/1.73m^2); Globulin 3.5 g/dL; Glucose 125 mg/dL (74-106); Potassium 4.4 mmol/L (3.5-5.1); Sodium 138 mmol/L (136-145)
[2025-01-13] MEDS: DICLOFENAC SODIUM 1% 100 GM TUBE TOPICAL ×3 (05:38→21:18)
--- NOTE | 2025-01-13 06:10 | P.PN_ITS ---
Progress Note: Subjective Subjective Interval history: Patient with more shortness of breath overnight, hypoxia worse overnight, requiring CPAP ventilation. Exam Constitutional Vital Signs, click to edit/add: Last Vital Signs Temp 98.2 F 01/13/25 04:00 Pulse 58 L 01/13/25 06:00 Resp 18 01/13/25 04:58 BP 131/67 01/13/25 04:00 Pulse Ox 92 L 01/13/25 04:58 O2 Del Method Home BIPAP / CPAP 01/13/25 04:58 O2 Flow Rate 4 01/13/25 04:58 Common normals: apparent distress (Mild respiratory distress , new for her with mild conversational dyspnea) Chest Common normals: inspection of chest normal Respiratory Common normals: abnormal respiratory effort (Mild conversational dyspnea, new for her) and not clear to ascultation bilaterally (Rales in bases) Auscultation: rales Cardio Common normals: regular rate, regular rhythm and no murmurs Extremity Common normals: abnormal to inspection (Trace edema) Progress Note: Objective Labs Labs: Short CBC 01/13/25 Range/Units 05:06 WBC 7.5 (4.0-11.0) 10^3/uL Hgb 10.5 L (12.0-16.0) g/dL Hct 31.6 L (36.0-48.0) % Plt Count 211 (150-450) 10^3/uL BMP 01/13/25 05:06 Sodium 138 Potassium 4.4 Chloride 106 Carbon Dioxide 25.4 BUN 24.0 H Creatinine 0.96 Glucose 125 H Calcium 8.3 L Liver Function 01/13/25 Range/Units 05:06 Total Bilirubin 0.3 (0.2-1.0) mg/dL AST 13 L (15-37) U/L ALT 12 L (14-59) U/L Alkaline Phosphatase 72 (46-116) U/L Albumin 2.5 L (3.4-5.0) g/dL Progress Note: A&P Assessment and Plan (1) Hypertensive urgency: (2) Acute non-ST elevation myocardial infarction (NSTEMI): (3) Elevated troponin: (4) UTI (urinary tract infection): Qualifiers: Hematuria presence: without hematuria Urinary tract infection type: acute cystitis Qualified Code(s): N30.00 - Acute cystitis without hematuria (5) DDD (degenerative disc disease), lumbosacral: Qualifiers: Disc-related pain type: unspecified whether pain present Qualified Code(s): M51.379 - Other intervertebral disc degeneration, lumbosacral region without mention of lumbar back pain or lower extremity pain (6) GERD (gastroesophageal reflux disease): Qualifiers: Esophagitis presence: without esophagitis Qualified Code(s): K21.9 - Gastro-esophageal reflux disease without esophagitis (7) Hypertension: Qualifiers: Hypertension type: primary hypertension Qualified Code(s): I10 - Essential (primary) hypertension (8) Cerebrovascular disease: (9) Type 2 diabetes mellitus with diabetic polyneuropathy: Qualifiers: Diabetes mellitus fdc insulin use: with fdc use Qualified Code(s): E11.42 - Type 2 diabetes mellitus with diabetic polyneuropathy; Z79.4 - shelter (current) use of insulin (10) CAD (coronary artery disease): Qualifiers: Associated angina: without angina Coronary Disease-Associated Artery/Lesion type: [place] artery [place] vs. transplanted heart: [place] heart Qualified Code(s): I25.10 - Atherosclerotic heart disease of [place] coronary artery without angina pectoris (11) Chronic heart failure with preserved ejection fraction (HFpEF): (12) Diabetes mellitus with hyperglycemia, with long-term current use of insulin: Qualifiers: Diabetes mellitus type: type 2 Qualified Code(s): E11.65 - Type 2 diabetes mellitus with hyperglycemia; Z79.4 - shelter (current) use of insulin (13) Stage 1 acute kidney injury: Plan Hypertensive urgency: Blood pressure overall is better but still with some elevation at times, adjust medications Acute NSTEMI with elevated troponin secondary to acute UTI-troponin returned to normal-BNP further elevated today, see below Acute hypoxic respiratory failure requiring CPAP ventilation last night-likely secondary to acute combined congestive heart failure, noted on chest x-ray yesterday, lungs worse overnight, BNP still elevated further today,-Lasix repeated today will double dose from previous day with failure of initial 20 mg dosing UTI (urinary tract infection): Maintain Levaquin Acute kidney injury stage I-resolved to baseline, saline lock Fall with acute head injury-CT negative, can DC neuro's DDD (degenerative disc disease), lumbosacral: Stable, likely to get started up l ater today secondary to the fall GERD (gastroesophageal reflux disease): Continue with current medications Hypertension: Stable-continue current medications Cerebrovascular disease: Unless CT scan shows bleed, maintain current medications Type 2 diabetes mellitus with diabetic polyneuropathy: Continue to monitor ISS CAD (coronary artery disease): No chest pain Chronic heart failure with preserved ejection fraction (HFpEF):-Maintain current medications, no peripheral edema Admission status: Patient initially admitted to observation status, condition deteriorated and and was found to have acute NSTEMI, with her condition deteriorated and medically necessary treatment has spanned 2 midnights, possibly a third, left as observation overnight last night was done in error, inpatient status to start on 01/09/2025 secondary to the deterioration in her clinical status -patient with fall today, medically unstable for discharge, patient need of rehab, continue neurochecks overnight, maintain inpatient status Patient has excellent rehabilitation candidate, work on placement, patient not safe for ambulation by self secondary to weakness secondary to her back pain and NSTEMI Urinary Catheter Management Urinary Catheter Management Pure Wick: Cath placed during this visit: yes Urethral indwelling: No Insertion date: 01/11/25 Insertion time: 21:30
[2025-01-13] MEDS: FUROSEMIDE 40 MG/4 ML VIAL IVP (06:37)
[2025-01-13] MEDS: LISINOPRIL 10 MG TABLET PO (08:28)
[2025-01-13] MEDS: PANTOPRAZOLE SODIUM 40 MG TABLET.DR PO ×2 (08:28→21:14)
[2025-01-13] MEDS: CARVEDILOL 25 MG TABLET PO ×2 (08:28→21:14)
[2025-01-13] MEDS: OXcarbazepine 300 MG TABLET PO ×2 (08:28→21:14)
[2025-01-13] MEDS: ISOSORBIDE MONONITRATE 30 MG TAB.ER.24H 60 MG PO (08:28)
[2025-01-13] MEDS: ASPIRIN 81 MG TABLET.DR PO (08:28)
[2025-01-13] MEDS: AMLODIPINE BESYLATE 5 MG TABLET 10 MG PO (08:28)
[2025-01-13] MEDS: ENSURE HP 237 ML LIQUID PO ×2 (08:28→21:14)
[2025-01-13] MEDS: CLOPIDOGREL BISULFATE 75 MG TABLET PO (08:28)
[2025-01-13] MEDS: BUPROPION HCL 150 MG XL TABLET 24H PO (08:28)
[2025-01-13] MEDS: INSULIN NPH 70-30 100UNIT/ML VIAL (10ML) 45 UNIT SUBQ (08:29)
--- NOTE | 2025-01-13 08:43 | CM.NOTE ---
Rounds made with Dr. Dowling, pt wears home BIPAP machine throughout the night. RN will attempt RA this AM. Pt will discharge to skilled at [facility] when medically stable.
--- NOTE | 2025-01-13 11:16 | PT.DAILY ---
Physical Therapy Daily Note PT Daily Note/Assess Start: 01/09/25 11:22 Freq: Status: Active Protocol: Document 01/13/25 10:40 MARISSA (Rec: 01/13/25 11:16 [id number]) Physical Therapy Daily Note/Assessment Time In/Time Out Time In 10:41 Time Out 10:56 Subjective Subjective Reports feeling okay today just feeling tired and fatigued but agreeable to seated exercises and walk. Therapeutic Exercise Time Therapeutic Exercise 5 Minutes (minutes) Therapeutic Exercise 0 Units Therapeutic Exercise Treatment Therapeutic Exercise Seated Exercises EOB: Treatment Marches x 10 LAQ x 10 HR/TR x 10 Hip abd x 10 Add squeezes x 10 Therapeutic Activity Time Therapeutic Activity 10 Minutes (minutes) Therapeutic Activity 0 Units Therapeutic Activity Treatment Bed Mobility Ability Standby Assistance Chair Transfer Standby Assistance Ability Therapeutic Activity Ambulates 30 feet x 2 with RW and CGA for safety. Comments Assistance required for O2 line management. Patient experiences SOB after trial 1 and required a seated RB before trial 2. Oxygen at 97% prior to ambulation and is 95% post ambulation. Total Physical Therapy Time Total Therapy 15 Minutes Total Physical 0 Therapy Units Summary Daily Note Summary Patient able to increase distance with ambulation to 30 feet x 2 CGA and assistance required for O2 line assistance. Patient requires seated rest break in between trials due to SOB, patient recovers quickly with short rest break and completes trial 2 of 30 feet CGA. Patient reporting mild pain in L LE during ambulation but is able to continue. Oxygen at 97% before ambulation and checked post ambulation and was 95%. Reports feeling fatigued after ambulation but feels good to get up and moving. Patient in chair with call light in reach, alarm activated and all needs met post treatment. Recommend SNF at [facility] to continue to build strength and endurance to return to PLOF.
--- NOTE | 2025-01-13 13:23 | SWNOTE1 ---
SW stopped in and spoke with pt about her home oxygen/cpap. Pt and in room. Pt does have her home cpap in room and voiced she was very thankful for respiratory therapy showing her how to use it correctly. SW asked if she had oxygen bleed in at night with it? She stated no. SW asked if she wore any home oxygen, her and stated no. Pt voiced she slept great last night with wearing it correctly. Pt and stated she has had it for 3 years, but never shown how to use it. SW asked where she got it from? She stated the place [place]. SW to call and verify. Pt's then provided SW with a list of dates in regards to pt's back surgery. ARACELI wrote down so can be provided to [facility]. At this time no further needs. ARACELI advised pt and pt's that SW submitted updates to [facility] and we are still waiting on insurance at this time. ARACELI spoke to nurse and she has placed the dates and time of apts in chart. ARACELI sent email to Darline at [facility] with the information about cpap and the dates and times of apts in regards to back surgery.
--- NOTE | 2025-01-13 13:27 | SWNOTE1 ---
ARACELI called [facility] in regards to CPAP, no answer.
[2025-01-13] MEDS: LEVOFLOXACIN 500 MG TABLET PO (13:33)
--- NOTE | 2025-01-13 13:43 | SWNOTE1 ---
SW attempted [facility] again, no answer.
--- NOTE | 2025-01-13 14:49 | SWNOTE1 ---
ARACELI called [facility] again and spoke to Halima. She stated they got her a rollator 3 years ago, but no reference to a cpap/bipap.
[2025-01-13] MEDS: ATORVASTATIN CALCIUM 40 MG TABLET 80 MG PO (21:14)
[2025-01-13] MEDS: GABAPENTIN 300 MG CAPSULE PO (21:14)
[2025-01-14] VITALS (10 sets, daily range): BP systolic 106–139; BP diastolic 52–71; PULSE 61–68; TEMP 36.4–36.7; O2SAT 92–96
[2025-01-14] MEDS: IPRATROPIUM/ALBUTEROL SULFATE 3 ML AMPUL.NEB IH ×3 (04:54→22:24)
[2025-01-14] MEDS: DICLOFENAC SODIUM 1% 100 GM TUBE TOPICAL ×3 (05:06→21:40)
[2025-01-14 05:35] LABS: Basophils Percent Auto 0.4 % (0.2-2.0); Eosinophils Absolute Auto 0.3 10^3/uL (0.0-0.7); Eosinophils Percent Auto 3.4 % (0.9-7.0); Hematocrit 31.5 % (36.0-48.0); Hemoglobin 10.5 g/dL (12.0-16.0); Immature Granulocytes Abs Auto 0.04 10^3/uL (0.00-0.03); Immature Granulocytes Pct Auto 0.5 % (0.0-0.5); Lymphocytes Absolute Auto 2.2 10^3/uL (1.2-3.8); Lymphocytes Percent Auto 29.5 % (20.5-60.0); Mean Corpuscular HGB Conc 33.3 g/dL (29.9-35.2); Mean Corpuscular Hemoglobin 31.1 pg (26.7-34.0); Mean Corpuscular Volume 93.2 fL (81.0-99.0); Mean Platelet Volume 10.6 fL (9.5-13.5); Monocytes Absolute Auto 0.7 10^3/uL (0.3-0.8); Monocytes Percent Auto 9.9 % (1.7-12.0); Neutrophils Absolute Auto 4.2 10^3/uL (1.4-6.5); Neutrophils Percent Auto 56.3 % (43.0-75.0); Platelet Count 223 10^3/uL (150-450); Red Blood Count 3.38 10^6/uL (4.20-5.40); Red Cell Distribution Width 12.9 % (11.0-15.0); White Blood Count 7.5 10^3/uL (4.0-11.0)
[2025-01-14 05:52] LABS: Alanine Aminotransferase 12 U/L (14-59); Albumin Globulin Ratio 0.7; Albumin Level 2.5 g/dL (3.4-5.0); Alkaline Phosphatase 68 U/L (46-116); Anion Gap 12.7; Aspartate Amino Transferase 13 U/L (15-37); BUN Creatinine Ratio 27.6; Bilirubin Total 0.3 mg/dL (0.2-1.0); Calcium 8.3 mg/dL (8.5-10.1); Carbon Dioxide 25.7 mmol/L (21.0-32.0); Chloride 105 mmol/L (98-107); Estimated GFR (African America >60 (>=60 mL/min/1.73m^2); Estimated GFR (Non-African Ame 56 (>=60 mL/min/1.73m^2); Globulin 3.6 g/dL; Glucose 126 mg/dL (74-106); Potassium 4.4 mmol/L (3.5-5.1); Sodium 139 mmol/L (136-145); Total Protein 6.1 g/dL (6.4-8.2)
--- NOTE | 2025-01-14 05:56 | P.PN_ITS ---
Progress Note: Subjective Subjective Interval history: She feels like she is breathing easier today Exam Constitutional Vital Signs, click to edit/add: Last Vital Signs Temp 98.1 F 01/14/25 04:00 Pulse 68 01/14/25 04:55 Resp 18 01/14/25 04:55 BP 122/62 01/14/25 04:00 Pulse Ox 96 01/14/25 04:55 O2 Del Method Nasal Cannula 01/14/25 04:55 O2 Flow Rate 2 01/14/25 04:55 Common normals: no apparent distress (No respiratory distress today) Chest Common normals: inspection of chest normal Respiratory Common normals: normal respiratory effort (No respiratory distress today) and clear to auscultation bilaterally (Rales in bases) Auscultation: no rales (Seems resolved) Cardio Common normals: regular rate, regular rhythm, S1 normal heart sound, S2 normal h eart sound and no murmurs Extremity Common normals: normal to inspection (No edema) and no clubbing, cyanosis or edema Progress Note: Objective Labs Labs: Short CBC 01/14/25 Range/Units 05:07 WBC 7.5 (4.0-11.0) 10^3/uL Hgb 10.5 L (12.0-16.0) g/dL Hct 31.5 L (36.0-48.0) % Plt Count 223 (150-450) 10^3/uL BMP 01/13/25 05:06 Sodium 138 Potassium 4.4 Chloride 106 Carbon Dioxide 25.4 BUN 24.0 H Creatinine 0.96 Glucose 125 H Calcium 8.3 L Liver Function 01/13/25 Range/Units 05:06 Total Bilirubin 0.3 (0.2-1.0) mg/dL AST 13 L (15-37) U/L ALT 12 L (14-59) U/L Alkaline Phosphatase 72 (46-116) U/L Albumin 2.5 L (3.4-5.0) g/dL Progress Note: A&P Assessment and Plan (1) Hypertensive urgency: (2) Acute non-ST elevation myocardial infarction (NSTEMI): (3) Elevated troponin: (4) UTI (urinary tract infection): Qualifiers: Hematuria presence: without hematuria Urinary tract infection type: acute cystitis Qualified Code(s): N30.00 - Acute cystitis without hematuria (5) DDD (degenerative disc disease), lumbosacral: Qualifiers: Disc-related pain type: unspecified whether pain present Qualified Code(s): M51.379 - Other intervertebral disc degeneration, lumbosacral region without mention of lumbar back pain or lower extremity pain (6) GERD (gastroesophageal reflux disease): Qualifiers: Esophagitis presence: without esophagitis Qualified Code(s): K21.9 - Gastro-esophageal reflux disease without esophagitis (7) Hypertension: Qualifiers: Hypertension type: primary hypertension Qualified Code(s): I10 - Essential (primary) hypertension (8) Cerebrovascular disease: (9) Type 2 diabetes mellitus with diabetic polyneuropathy: 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 transplanted heart: [place] heart Qualified Code(s): I25.10 - Atherosclerotic heart disease of [place] coronary artery without angina pectoris (11) Chronic heart failure with preserved ejection fraction (HFpEF): (12) Diabetes mellitus with hyperglycemia, with long-term current use of insulin: Qualifiers: Diabetes mellitus type: type 2 Qualified Code(s): E11.65 - Type 2 diabetes mellitus with hyperglycemia; Z79.4 - care home (current) use of insulin (13) Stage 1 acute kidney injury: Plan Hypertensive urgency: Blood pressure overall is better but still with some elevation at times, adjust medications Acute NSTEMI with elevated troponin secondary to acute UTI-troponin returned to normal-BMP much improved, repeat chest x-ray Acute hypoxic respiratory failure requiring CPAP ventilation last night secondary to acute combined congestive heart failure-able to be weaned off of CPAP yesterday, oxygen saturation is improving, currently mid 90s at 2 L, repeat chest x-ray and Lasix today UTI (urinary tract infection): Maintain Levaquin Acute kidney injury stage I-resolved to baseline, saline lock-maintain stable Fall with acute head injury-CT negative, can DC neuro's DDD (degenerative disc disease), lumbosacral: Stable, likely to get started up later today secondary to the fall GERD (gastroesophageal reflux disease): Continue with current medications Hypertension: Stable-continue current medications Cerebrovascular disease: Unless CT scan shows bleed, maintain current medications Type 2 diabetes mellitus with diabetic polyneuropathy: Continue to monitor ISS CAD (coronary artery disease): No chest pain Chronic heart failure with preserved ejection fraction (HFpEF):-Maintain current medications, no peripheral edema Admission status: Patient initially admitted to observation status, condition deteriorated and and was found to have acute NSTEMI, with her condition deterior ated and medically necessary treatment has spanned 2 midnights, possibly a third, left as observation overnight last night was done in error, inpatient status to start on 01/09/2025 secondary to the deterioration in her clinical status -overall improving, maintain inpatient status Patient has excellent rehabilitation candidate, work on placement, patient not safe for ambulation by self secondary to weakness secondary to her back pain and NSTEMI Urinary Catheter Management Urinary Catheter Management Pure Wick: Cath placed during this visit: yes Urethral indwelling: No Insertion date: 01/11/25 Insertion time: 21:30
[2025-01-14] MEDS: FUROSEMIDE 40 MG/4 ML VIAL IVP (06:24)
--- NOTE | 2025-01-14 07:58 | XR_ITS ---
The [address] [address] Patient Name: ORTEGA POWELL MRN: [id number] date: 1955 Sex: F Assigned Patient Location: [place] Current Patient Location: [place] Accession/Order Number: [id number] Exam Date: 01/14/2025 08:29 Report Date: 01/14/2025 08:32 At the request of: DOMINICK MCGEE MD Procedure: XR chest 2V PA AND LATERAL CHEST: CLINICAL HISTORY: follow up on fluid overload. Shortness breath. COMPARISON: 01/12/2025 The interstitial changes on the prior show interval improvement. There is no developing consolidation. On the lateral view, there is still slight blunting of the posterior costophrenic angles however this is also resolving. No pneumothorax is seen. The cardiac, hilar and mediastinal silhouettes are within normal limitsThe visualized bony thorax is intact. There is endplate spurring at the spine. XR/XR chest 2V IMPRESSION: IMPROVING EDEMA AND POSTERIOR BASILAR PLEURAL-PARENCHYMAL CHANGE Impression dictated by: Christy Mitchell M.D.01/14/2025 8:32 AM Dictation Location: [place] [address] Electronically authenticated by: [id number] Y Date: 01/14/2025 08:32
--- NOTE | 2025-01-14 08:00 | CM.NOTE ---
Rounds made with Dr. Dowling. Dr. Dowling reviews plan of care. Attempt to wean oxygen today, repeat CXR and IV Lasix. Kyle verbalizes understanding.
--- NOTE | 2025-01-14 08:59 | PT.DAILY ---
Physical Therapy Daily Note PT Daily Note/Assess Start: 01/09/25 11:22 Freq: Status: Active Protocol: Document 01/14/25 08:30 MARISSA (Rec: 01/14/25 08:59 [id number]) Physical Therapy Daily Note/Assessment Time In/Time Out Time In 08:31 Time Out 08:39 Subjective Subjective Patient states she is feeling good today, feeling stronger but did get a good night of sleep. Therapeutic Activity Time Therapeutic Activity 8 Minutes (minutes) Therapeutic Activity 1 Units Therapeutic Activity Treatment Chair Transfer Standby Assistance Ability Therapeutic Activity Patient ambulated 60 feet in room with RW and CGA for Comments safety. Assistance required for O2 line management. Patient reports feeling tired and demonstrates signs of fatigue during second lap of walk but is able to make it back to bed. O2 monitored post walk and was at 94%. Total Physical Therapy Time Total Therapy 8 Minutes Total Physical 1 Therapy Units Summary Daily Note Summary Patient able to increase ambulation distance to 60 feet with RW and CGA which is improved from 30 feet x 2 with rest break required previous treatment. Assistance is required for O2 line management. Patient reports feeling tired and demonstrates signs of fatigue during second lap of walk but is able to continue back to bed. O2 monitored post treatment and recorded at 94%. Patient sitting EOB with call light in reach and all needs met post treatment. Continue to recommend SNF at [place] to continue to build strength and endurance to return to PLOF.
[2025-01-14] MEDS: BUPROPION HCL 150 MG XL TABLET 24H PO (09:03)
[2025-01-14] MEDS: ISOSORBIDE MONONITRATE 30 MG TAB.ER.24H 60 MG PO (09:03)
[2025-01-14] MEDS: CARVEDILOL 25 MG TABLET PO ×2 (09:03→21:40)
[2025-01-14] MEDS: ENSURE HP 237 ML LIQUID PO ×2 (09:03→21:39)
[2025-01-14] MEDS: AMLODIPINE BESYLATE 5 MG TABLET 10 MG PO (09:03)
[2025-01-14] MEDS: PANTOPRAZOLE SODIUM 40 MG TABLET.DR PO ×2 (09:04→21:40)
[2025-01-14] MEDS: ASPIRIN 81 MG TABLET.DR PO (09:04)
[2025-01-14] MEDS: CLOPIDOGREL BISULFATE 75 MG TABLET PO (09:04)
[2025-01-14] MEDS: LISINOPRIL 10 MG TABLET PO (09:04)
[2025-01-14] MEDS: OXcarbazepine 300 MG TABLET PO ×2 (09:04→21:40)
[2025-01-14] MEDS: INSULIN NPH 70-30 100UNIT/ML VIAL (10ML) 45 UNIT SUBQ (09:05)
--- NOTE | 2025-01-14 10:01 | SWNOTE1 ---
SW sent over PT note from today along with labs, vitals, physician note, and nursing notes to [facility] for precert. SW to send OT once completed.
--- NOTE | 2025-01-14 12:17 | SWNOTE1 ---
ARACELI called pt's [employer] insurance to check on precert to [facility]. [employer] stated that the case is still pending for review and there is a case resolution specialist. She then offered to give SW peer to peer information. ARACELI then asked if it is intended to be denied? She stated no still pending for review. ARACELI then told her that SW will call [facility] to see if they have received any information. ARACELI reached out to Destiny at [facility], waiting to hear back.
--- NOTE | 2025-01-14 13:30 | SWNOTE1 ---
ARACELI heard back from Obdulia at [facility] and she just received peer to peer information. Insurance is requesting peer to peer review by physician to be scheduled by 4:00 today. ARACELI provided this information to Dr. Dowling along with phone number, reference number, pt's name, , and policy ID number.
--- NOTE | 2025-01-14 14:23 | SWNOTE1 ---
SW provided nurse and pt/pt's with updated in regards to peer to peer being completed and waiting for the final determination.
--- NOTE | 2025-01-14 15:33 | SWNOTE1 ---
Per Dr. Dowling, he was able to get pt approved and provided approval number. SW reached out to Obdulia at [facility] to see if they have received the approval, waiting to hear back.
[2025-01-14] MEDS: GUAIFENESIN 200 MG/DEXTROMETHORPHAN 20 MG 10 ML UNIT DOSE CUP PO (21:40)
[2025-01-14] MEDS: GABAPENTIN 300 MG CAPSULE PO (21:40)
[2025-01-14] MEDS: ATORVASTATIN CALCIUM 40 MG TABLET 80 MG PO (21:40)
[2025-01-14] MEDS: ZOLPIDEM TARTRATE 5 MG TABLET PO (21:40)
[2025-01-15 05:16] VITALS: BP 136/74; PULSE 65; TEMP 36.4; O2SAT 94
[2025-01-15] MEDS: DICLOFENAC SODIUM 1% 100 GM TUBE TOPICAL (05:16)
[2025-01-15 05:24] VITALS: PULSE 62; O2SAT 94
[2025-01-15] MEDS: IPRATROPIUM/ALBUTEROL SULFATE 3 ML AMPUL.NEB IH (05:24)
[2025-01-15 05:25] LABS: Basophils Percent Auto 0.4 % (0.2-2.0); Eosinophils Absolute Auto 0.3 10^3/uL (0.0-0.7); Eosinophils Percent Auto 3.2 % (0.9-7.0); Hematocrit 32.8 % (36.0-48.0); Immature Granulocytes Abs Auto 0.04 10^3/uL (0.00-0.03); Immature Granulocytes Pct Auto 0.5 % (0.0-0.5); Lymphocytes Percent Auto 24.6 % (20.5-60.0); Mean Corpuscular HGB Conc 33.5 g/dL (29.9-35.2); Mean Corpuscular Hemoglobin 31.3 pg (26.7-34.0); Mean Corpuscular Volume 93.4 fL (81.0-99.0); Mean Platelet Volume 10.6 fL (9.5-13.5); Monocytes Absolute Auto 0.8 10^3/uL (0.3-0.8); Monocytes Percent Auto 10.1 % (1.7-12.0); Neutrophils Percent Auto 61.2 % (43.0-75.0); Platelet Count 245 10^3/uL (150-450); Red Blood Count 3.51 10^6/uL (4.20-5.40); Red Cell Distribution Width 12.9 % (11.0-15.0); White Blood Count 8.1 10^3/uL (4.0-11.0)
[2025-01-15 05:44] LABS: Alanine Aminotransferase 18 U/L (14-59); Albumin Globulin Ratio 0.7; Albumin Level 2.6 g/dL (3.4-5.0); Alkaline Phosphatase 75 U/L (46-116); Anion Gap 11.8; Aspartate Amino Transferase 11 U/L (15-37); BUN Creatinine Ratio 27.9; Bilirubin Total 0.2 mg/dL (0.2-1.0); Calcium 8.5 mg/dL (8.5-10.1); Carbon Dioxide 28.7 mmol/L (21.0-32.0); Chloride 106 mmol/L (98-107); Estimated GFR (African America >60 (>=60 mL/min/1.73m^2); Estimated GFR (Non-African Ame 53 (>=60 mL/min/1.73m^2); Globulin 3.5 g/dL; Glucose 123 mg/dL (74-106); Potassium 4.5 mmol/L (3.5-5.1); Sodium 142 mmol/L (136-145); Total Protein 6.1 g/dL (6.4-8.2)
--- NOTE | 2025-01-15 06:05 | P.DS_ITS ---
DS: Providers Provider Date of admission: 01/10/25 08:43 Primary care physician: KAREN EMANUEL Consults: 01/08/25 Consult to Dietitian Routine Reason for consultation: diabetic 01/08/25 09:06 Consult to Cardiology Routine Reason for consultation: elevated trop, hypertensive urgency Has provider been notified: No 01/08/25 09:09 Occupational Therapy Eval and Treat Routine Reason for consultation: knee and back pain Has provider been notified: No Physical Therapy Eval and Treat Routine Reason for consultation: knee and back pain Has provider been notified: No 01/11/25 09:05 Consult to [facility] Programmer Routine Reason for consult:: [facility] 01/12/25 08:01 Consult to Cardiology Routine Reason for consultation: nstemi Has provider been notified: No DS: Diagnosis Discharge Diagnosis (1) Hypertensive urgency: (2) Acute non-ST elevation myocardial infarction (NSTEMI): (3) Elevated troponin: (4) UTI (urinary tract infection): Qualifiers: Hematuria presence: without hematuria Urinary tract infection type: acute cystitis Qualified Code(s): N30.00 - Acute cystitis without hematuria (5) DDD (degenerative disc disease), lumbosacral: Qualifiers: Disc-related pain type: unspecified whether pain present Qualified Code(s): M51.379 - Other intervertebral disc degeneration, lumbosacral region without mention of lumbar back pain or lower extremity pain (6) GERD (gastroesophageal reflux disease): Qualifiers: Esophagitis presence: without esophagitis Qualified Code(s): K21.9 - Gastro-esophageal reflux disease without esophagitis (7) Hypertension: Qualifiers: Hypertension type: primary hypertension Qualified Code(s): I10 - Essential (primary) hypertension (8) Cerebrovascular disease: (9) Type 2 diabetes mellitus with diabetic polyneuropathy: Qualifiers: Diabetes mellitus terminal operations manager insulin use: with terminal operations manager use Qualified Code(s): E11.42 - Type 2 diabetes mellitus with diabetic polyneuropathy; Z79.4 - terminal operations manager (current) use of insulin (10) CAD (coronary artery disease): Qualifiers: Associated angina: without angina Coronary Disease-Associated Artery/Lesion type: [place] artery [place] vs. transplanted heart: [place] heart Qualified Code(s): I25.10 - Atherosclerotic heart disease of [place] coronary artery without angina pectoris (11) Chronic heart failure with preserved ejection fraction (HFpEF): (12) Diabetes mellitus with hyperglycemia, with long-term current use of insulin: Qualifiers: Diabetes mellitus type: type 2 Qualified Code(s): E11.65 - Type 2 diabetes mellitus with hyperglycemia; Z79.4 - halfway (current) use of insulin (13) Stage 1 acute kidney injury: Plan Hypertensive urgency: Blood pressure overall is better but still with some elevation at times, adjust medications Acute NSTEMI with elevated troponin secondary to acute UTI-troponin returned to normal-BMP much improved, repeat chest x-ray Acute hypoxic respiratory failure requiring CPAP ventilation last night secondary to acute combined congestive heart failure-able to be weaned off of CPAP yesterday, oxygen saturation is improving, currently mid s at 2 L, repeat chest x-ray and Lasix today UTI (urinary tract infection) due to ecoli: Maintain Levaquin Acute kidney injury stage I-resolved to baseline, saline lock-maintain stable Fall with acute head injury-CT negative, can DC neuro's DDD (degenerative disc disease), lumbosacral: Stable, likely to get started up later today secondary to the fall GERD (gastroesophageal reflux disease): Continue with current medications Hypertension: Stable-continue current medications Cerebrovascular disease: Unless CT scan shows bleed, maintain current medications Type 2 diabetes mellitus with diabetic polyneuropathy: Continue to monitor ISS CAD (coronary artery disease): No chest pain Chronic heart failure with preserved ejection fraction (HFpEF):-Maintain current medications, no peripheral edema Admission status: Patient initially admitted to observation status, condition deteriorated and and was found to have acute NSTEMI, with her condition deteriorated and medically necessary treatment has spanned 2 midnights, possibly a third, left as observation overnight last night was done in error, inpatient status to start on 01/09/2025 secondary to the deterioration in her clinical status -overall improving, maintain inpatient status Patient has excellent rehabilitation candidate, work on placement, patient not safe for ambulation by self secondary to weakness secondary to her back pain and NSTEMI DS: Summary Hospital Course Hospital Course: This is a 69 y.o female patient with a past medical history of multiple CVAs and MIs, DM2, HFpEF, hypertension, hyperlipidemia, Chronic low back pain, CAD s/p 2 cardiac stents, DM polyneuropathy and GERD who presented to the ER after a fall at home. She is scheduled for a back surgery at [facility] in the near future. Due to her back pain, this limits her mobility at home. She stood from her chair when her knee buckled and she fell. Her back struck the stool and her and son had to get her back to the chair. She is having Left knee pain. X-ray of the knee was negative for fracture but small effusion present. She also reports intermitted chest pain this week but none today. CT of the head was obtained which showed no acute process, CXR also showed no acute process. Patient had significantly elevated BP of 234/92 as patient states she was unable to take her medications since she fell. She was treated with Labetalol IV which improved BP. Troponin has been elevated [phone] with elevated proBNP of 1271, 1286; EKG showed LVH with normal sinus rhythm. WBC's 7.7, hb 11.9, K 3.7, Cr 0.99, ha1c 6.8. When reviewing records patient had Lexiscan stress test on 12/24/24 with normal imaging but EKG portion could not be interpreted. Last Echo 12/04/23 which showed significant LVH, EF 65-70% with grade 1 diastolic dysfunction. Patient was admitted for Hypertensive urgency and NSTEMI. She follows with Dr. Block of [facility] cardiology. She recently had stress test for cardiac clearance for her back surgery. Echo yesterday was unchanged. Cardiology consult recommended 30 day event monitor which was placed at the time of discharge and she has close cardiology follow up. Troponins trended down. BP was controlled. Most likely troponin was due to elevated BP. Patient started to get some nausea and vomiting last night. Zofran helped. Normal labs this morning. I discussed with her could be virus. I will treat UTI with Cipro 250mg BID. Urine culture is pending at the time of discharge. I have also sent in Zofran for her to take. She has close follow up with her PCP and 30 day event monitor on. She will be discharged home today in stable condition. Patient treatment physical of condition deteriorated, she had acute kidney injury stage II, she was given IV hydration, 2 days into that she developed acute combined congestive heart failure her kidney function improved to baseline she was diuresed net of 7 L over the last 3 days, at this point her creatinine is still at baseline, she feels much improved, she is still on 1 to 2 L of supplemental oxygen but with a good O2 saturation likely be able to wean that, at this point she is medically stable for discharge to rehab and is an excellent rehabilitation candidate Acute UTI secondary to E. coli resulting in acute NSTEMI type II and acute combined congestive heart failure acute kidney injury stage II Time Spent with Patient Time attestation: Total time spent providing and/or coordinating discharge services: Exam Constitutional Vital Signs, click to edit/add: Last Vital Signs Temp 97.6 F 01/15/25 05:16 Pulse 62 01/15/25 05:24 Resp 16 01/15/25 05:24 BP 136/74 01/15/25 05:16 Pulse Ox 94 L 01/15/25 05:24 O2 Del Method Nasal Cannula 01/15/25 05:24 O2 Flow Rate 2 01/15/25 05:24 Common normals: no apparent distress (No respiratory distress today) Chest Common normals: inspection of chest normal Respiratory Common normals: normal respiratory effort (No respiratory distress today) and clear to auscultation bilaterally (Rales in bases) Auscultation: no rales (Still cleared today) Cardio Common normals: regular rate, regular rhythm, S1 normal heart sound, S2 normal heart sound and no murmurs Extremity Common normals: normal to inspection (No edema) and no clubbing, cyanosis or edema DS: Data Data Completed and Pending Labs on day of discharge: Labs from last 24 hours 01/15/25 01/14/25 05:19 05:07 WBC 8.1 RBC 3.51 L Hgb 11.0 L Hct 32.8 L MCV 93.4 MCH 31.3 MCHC 33.5 RDW 12.9 Plt Count 245 MPV 10.6 Neut % (Auto) 61.2 Lymph % (Auto) 24.6 [place] % (Auto) 10.1 Eos % (Auto) 3.2 Baso % (Auto) 0.4 Neut # (Auto) 5.0 Lymph # (Auto) 2.0 [place] # (Auto) 0.8 Eos # (Auto) 0.3 Baso # (Auto) 0.0 Abs Immat Gran (auto) 0.04 H Imm/Tot Granulo (auto) 0.5 Sodium 142 Potassium 4.5 Chloride 106 Carbon Dioxide 28.7 Anion Gap 11.8 BUN 29.0 H Creatinine 1.04 H Est GFR ( Amer) >60 Est GFR (Non-Af Amer) 53 L BUN/Creatinine Ratio 27.9 Glucose 123 H Calcium 8.5 Total Bilirubin 0.2 AST 11 L ALT 18 Alkaline Phosphatase 75 NT-Pro-B Natriuret Pep 1048.0 H Total Protein 6.1 L Albumin 2.6 L Globulin 3.5 Albumin/Globulin Ratio 0.7 Discharge Plan Discharge Disposition: Xfer SNF Discharge Medications: New ondansetron 4 mg tablet,disintegrating 4 mg PO Q8H PRN (Reason: nausea and vomiting) 5 Days Qty: 20 0RF carvedilol 25 mg Tablet 25 mg PO BID Qty: 60 11RF albuterol sulfate 2.5 mg /3 mL (0.083 %) Solution For Nebulization 2.5 mg inhalation Q4H PRN (Reason: Dyspnea) Qty: 90 0RF benzonatate 100 mg Capsule 200 mg PO Q8H PRN (Reason: Cough) Qty: 120 0RF lisinopril 10 mg Tablet 10 mg PO QD Qty: 30 11RF levofloxacin 500 mg Tablet 500 mg PO DAILY Qty: 10 0RF isosorbide mononitrate 30 mg Tablet Extended Release 24 Hr 60 mg PO DAILY Qty: 60 0RF Continued amlodipine 10 mg tablet 10 mg PO QDAY anastrozole 1 mg tablet 1 mg PO QDAY atorvastatin 80 mg tablet 80 mg PO QDAY bupropion HCl 150 mg tablet extended release 24 hr 150 mg PO QDAY clopidogrel 75 mg tablet 75 mg PO QDAY pantoprazole 40 mg tablet,delayed release (DR/EC) 40 mg PO Q12H aspirin 81 mg capsule 81 mg PO DAILY oxcarbazepine 300 mg tablet 300 mg PO BID gabapentin 300 mg capsule 300 mg PO BEDTIME Jardiance 10 mg tablet 10 mg PO DAILY nitroglycerin 0.4 mg tablet, sublingual 0.4 mg sublingual Q5M PRN (Reason: chest pain) nystatin 100,000 unit/gram powder 1 applic TOPICAL DAILY PRN (Reason: rash) Novolin 70-30 FlexPen U-100 100 unit/mL (70-30) insulin pen 45 unit SUBCUT DAILY Rx Instructions: 45 units at breakfast, 55 units at supper Discontinued carvedilol 12.5 mg tablet 12.5 mg PO BID isosorbide mononitrate 30 mg tablet extended release 24 hr 30 mg PO QDAY lisinopril 40 mg tablet 40 mg PO DAILY metformin 500 mg tablet extended release 24 hr 500 mg PO BID spironolactone 25 mg tablet 25 mg PO QDAY Print Language: Kiswahili Animal Sticker/Aviation Technical Systems Specialist Instructions: Discharge to [facility] Forms: Portal Instructions Follow Up Appointments: January 14 @ 11:30am with Dr. Emanuel [phone] . February 19 @ 10:30am with [facility] at [facility] [phone] Patient with 30 Day Event Monitor [facility] - [phone] SunJanuary 28 @ 10am-anesthesia appt 11am pre-op appt SunFebruary 02 - surgery - no known time yet SunFebruary 18 @ 10:20am - post op appt
--- NOTE | 2025-01-15 07:58 | CM.NOTE ---
Rounds made with Dr. Dowling pt will discharge to [facility] today for skilled therapy.
[2025-01-15] MEDS: ASPIRIN 81 MG TABLET.DR PO (08:12)
[2025-01-15] MEDS: CARVEDILOL 25 MG TABLET PO (08:12)
[2025-01-15] MEDS: BUPROPION HCL 150 MG XL TABLET 24H PO (08:12)
[2025-01-15] MEDS: PANTOPRAZOLE SODIUM 40 MG TABLET.DR PO (08:12)
[2025-01-15] MEDS: AMLODIPINE BESYLATE 5 MG TABLET 10 MG PO (08:12)
[2025-01-15] MEDS: OXcarbazepine 300 MG TABLET PO (08:12)
[2025-01-15] MEDS: ISOSORBIDE MONONITRATE 30 MG TAB.ER.24H 60 MG PO (08:12)
[2025-01-15] MEDS: ENSURE HP 237 ML LIQUID PO (08:12)
[2025-01-15] MEDS: LISINOPRIL 10 MG TABLET PO (08:12)
[2025-01-15] MEDS: CLOPIDOGREL BISULFATE 75 MG TABLET PO (08:12)
[2025-01-15] MEDS: INSULIN NPH 70-30 100UNIT/ML VIAL (10ML) 45 UNIT SUBQ (08:13)
[2025-01-15 08:20] VITALS: BP 168/74; PULSE 62; TEMP 36.4; O2SAT 98
--- NOTE | 2025-01-15 09:00 | CM.NOTE ---
2nd Important Message From Medicare discussed wit pt, pt deneis questions or conerns.
--- NOTE | 2025-01-15 10:46 | SWNOTE1 ---
ARACELI stopped in and spoke with pt and . ARACELI advised that pt has been approved and will be going to [facility] today. Pt's let SW know that her surgery date for her back has changed. ARACELI made note of the dates and times and will send this to [facility]. ARACELI called and set up trips and they will be here between 1:15-1:45. ARACELI notified [facility], pt/pt's , and nurse of time. ARACELI already completed H[facility]. ARACELI faxed over [facility] and updated labs to [facility]. Pt is going to [facility] skilled.
[2025-01-15 12:49] VITALS: O2SAT 92
--- NOTE | 2025-01-16 15:13 | CM.NOTE ---
Faxed final urine culture to [facility].
== END 2025-01-15 13:30 | DRG 280 ==
LOC: ER 01-08 02:11 → MS 01-08 02:37
PROVIDERS: Family Medicine; Registered Nurse; Admitting Provider Family Medicine; Emergency Provider Emergency Medicine; PCP Internal Medicine; Visit Provider Family Medicine
DX: I16.0 Hypertensive urgency (principal); I50.43 Acute on chronic combined systolic (congestive) and diastolic (congestive) heart failure; I21.A1 Myocardial infarction type 2; J96.01 Acute respiratory failure with hypoxia; N17.9 Acute kidney failure, unspecified; N30.00 Acute cystitis without hematuria; B96.20 Unspecified Escherichia coli [E. coli] as the cause of diseases classified elsewhere; M51.379 Other intervertebral disc degeneration, lumbosacral region without mention of lumbar back pain or lower extremity pain; K21.9 Gastro-esophageal reflux disease without esophagitis; E11.42 Type 2 diabetes mellitus with diabetic polyneuropathy; I25.10 Atherosclerotic heart disease of native coronary artery without angina pectoris; I67.9 Cerebrovascular disease, unspecified; I11.0 Hypertensive heart disease with heart failure; E11.65 Type 2 diabetes mellitus with hyperglycemia; I25.2 Old myocardial infarction; M25.462 Effusion, left knee; G47.33 Obstructive sleep apnea (adult) (pediatric); T46.5X6A Underdosing of other antihypertensive drugs, initial encounter; Z91.128 Patient's intentional underdosing of medication regimen for other reason; I87.2 Venous insufficiency (chronic) (peripheral); W18.39XA Other fall on same level, initial encounter; Y92.009 Unspecified place in unspecified non-institutional (private) residence as the place of occurrence of the external cause; Z79.82 Long term (current) use of aspirin; Z86.73 Personal history of transient ischemic attack (TIA), and cerebral infarction without residual deficits; Z95.5 Presence of coronary angioplasty implant and graft; Z79.899 Other long term (current) drug therapy; Z79.02 Long term (current) use of 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latelets; Z79.84 Long term (current) use of oral hypoglycemic drugs; Z88.8 Allergy status to other drugs, medicaments and biological substances; R29.6 Repeated falls; Z85.3 Personal history of malignant neoplasm of breast; Z79.4 Long term (current) use of insulin
CPT/HCPCS: 36415; 70450; 71045; 71046; 73564; 80048; 80053; 81001; 82948; 83036; 83735; 83880; 84484; 85025; 87045; 87046; 87086; 87088; 87186; 87427; 87493; 90677; 93005; 93270; 93306; 94640; 94667; 94668; 94761; 96365; 96366; 96375; 96376; 97161; 97165; 97530; 97535; 99285; G0009; G0378; J0696; J1920; J1938; J2270; J2405